=== PATIENT | male | born 1940 | race Caucasian/White ===

== ENCOUNTER → 2016-09-06 | Outpatient (CLI) | payer MEDICARE, MEDICAID ==
[~2016-09-06] MED LIST: ACET-2267 PO; ACYC800T PO; ALBU17AE3 IH; AMIO200T2 PO; AMIO200T50 PO; AML5T; AMLO10TA4; AMLO10TA82 PO; AMLO5TAB2 PO; ASP81CT; ASP81CT PO; ASPI-875 PO; ASPI-892; ATEN25TA; ATEN25TA PO; ATN25T; Amiodarone Hcl PO; BENZ200C25 PO; CEFD300C3 PO; CEFI200S PO; CEPH500C PO; CLPD75T; CPR500T PO; DIGO-8 PO; DIGO125T PO; DIPH25TA82; DIPH25TA82 PO; DOXY100C2 PO; DPH25C; FLT11013; FLT22013 IH; FRSM20T; FRSM40T; FURO20TA4 PO; FURO40TA4; FURO40TA4 PO; HCT25T PO; Hydrochlorothiazide PO; IPRA3AMP INH; KCL10CCR; KCL20TCR PO; LEVO500T69 PO; LIDO700A6 TP; LOSA-35 PO; LOSA100T28 PO; LOSA1TAB23; LOSA1TAB70 PO; LOSA50TA36 PO; MAGN400T6 PO; METO-333 PO; METO50TA2 PO; MGX400T PO; MINO100T10 PO; MTP25TSR PO; Metoprolol Tartrate PO; NF-ESOM40C; NF-ESOM40C PO; NF-MEXI150 PO; OXYC-197 PO; OXYC-471 PO; POLY17PO23 PO; POTA20TA15 PO; POTA8TAB PO; POTA8TAB6 PO; PROP1TAB77 PO; SENN-140 PO; SIMV20TA3; SIMV20TA3 PO; SMV10T; SMV20T; SULF1TAB35 PO; TAMS0.4C98 PO; TRAM-21 PO; TRAM50TA2 PO; WARF5TAB PO; [UNRECOGNIZED DRUG - CODE] PO
[2016-09-06 08:35] LABS: MAGNESIUM 1.9 MG/DL (1.8-2.4); POTASSIUM 3.4 MMOL/L (3.6-5.0)
== END ==
LOC: LAB 07:55
PROVIDERS: ATTEND Internal Medicine Cardiovascular Disease
DX: I25.10 Atherosclerotic heart disease of native coronary artery without angina pectoris (principal); I10 Essential (primary) hypertension; I48.91 Unspecified atrial fibrillation; I47.2 Ventricular tachycardia
CPT/HCPCS: 36415; 83735; 84132

== ENCOUNTER → 2016-09-06 | Outpatient (CLI) | payer MEDICARE, MEDICAID ==
[2016-09-06 08:53] LABS: ALANINE AMINOTRANSFERASE 23 U/L (0-55); ALBUMIN 3.9 G/DL (3.2-4.5); ANION GAP 12 MMOL/L (5-14); ASPARTATE AMINO TRANSFERASE 27 U/L (5-34); BILIRUBIN,TOTAL 0.4 MG/DL (0.1-1.0); BLOOD UREA NITROGEN 16 MG/DL (7-18); BUN/CREATININE RATIO 17; CALCIUM 9.3 MG/DL (8.5-10.1); CARBON DIOXIDE 26 MMOL/L (21-32); CHLORIDE 101 MMOL/L (98-107); CHOLESTEROL 147 MG/DL (< 200); CREATININE SERUM 0.92 MG/DL (0.60-1.30); DIRECT LDL 102 MG/DL (1-129); GFR ESTIMATED > 60; GLUCOSE 125 MG/DL (70-105); POTASSIUM 3.4 MMOL/L (3.6-5.0); SODIUM 139 MMOL/L (135-145); TOTAL PROTEIN 7.6 G/DL (6.4-8.2); TRIGLYCERIDES 174 MG/DL (<150); VLDL CHOLESTEROL 35 MG/DL (5-40)
== END ==
LOC: LAB 07:49
PROVIDERS: ATTEND Internal Medicine Cardiovascular Disease
DX: I10 Essential (primary) hypertension (principal); I25.10 Atherosclerotic heart disease of native coronary artery without angina pectoris; I48.92 Unspecified atrial flutter; I21.3 ST elevation (STEMI) myocardial infarction of unspecified site; I73.9 Peripheral vascular disease, unspecified
CPT/HCPCS: 36415; 80053; 80061; 83735; 84132

== ENCOUNTER 2016-09-22 15:56 | Inpatient (IN) | payer MEDICARE, MEDICAID ==
[~2016-09-22] VITALS: Ht 167.6 cm; Wt 94.1 kg
[~2016-09-22 15:56] MED LIST changes: -AMIO200T2 PO; -FLT22013 IH; -IPRA3AMP INH; -LOSA50TA36 PO; -NF-MEXI150 PO; -OXYC-471 PO; -POLY17PO23 PO; -SENN-140 PO; -TAMS0.4C98 PO; -TRAM50TA2 PO; -WARF5TAB PO
[2016-09-22] MEDS ORDERED: NF-MEXI150 PO (16:39)
[2016-09-22] MEDS ORDERED: AMIO200T2 PO (16:39)
[2016-09-22] MEDS ORDERED: FLT22013 IH (16:39)
[2016-09-22] MEDS ORDERED: fentaNYL INJECTION 100 MCG/2 ML AMP ONE (16:52)
[2016-09-22] MEDS ORDERED: fentaNYL INJECTION 100 MCG/2 ML AMP IVP ONE (17:00)
[2016-09-22 17:11] LABS: BASOPHILS % (AUTO) 0 % (0-10); EOSINOPHILS # (AUTO) 0.2 10^3/uL (0.0-0.3); EOSINOPHILS % (AUTO) 2 % (0-10); LYMPHOCYTES # (AUTO) 1.7 X 10^3 (1.0-4.0); LYMPHOCYTES % (AUTO) 19 % (12-44); MEAN CORPUSCULAR HEMOGLOBIN 33 PG (25-34); MEAN CORPUSCULAR HGB CONC 35 G/DL (32-36); MEAN CORPUSCULAR VOLUME 94 FL (80-99); MEAN PLATELET VOLUME 10.4 FL (7.4-10.4); MONOCYTES # (AUTO) 1.3 X 10^3 (0.0-1.0); MONOCYTES % (AUTO) 14 % (0-12); NEUTROPHILS # (AUTO) 6.1 X 10^3 (1.8-7.8); NEUTROPHILS % (AUTO) 65 % (42-75); PLATELET COUNT 154 10^3/uL (130-400); RED CELL DISTRIBUTION WIDTH 14.9 % (10.0-14.5); WHITE BLOOD COUNT 9.4 10^3/uL (4.3-11.0)
[2016-09-22 17:12] LABS: INR 0.9 (0.8-1.4); PROTHROMBIN TIME PATIENT 12.2 SEC (12.2-14.7)
[2016-09-22 17:27] LABS: ALANINE AMINOTRANSFERASE 31 U/L (0-55); ALBUMIN 3.9 G/DL (3.2-4.5); ANION GAP 12 MMOL/L (5-14); ASPARTATE AMINO TRANSFERASE 31 U/L (5-34); BILIRUBIN,TOTAL 0.5 MG/DL (0.1-1.0); BLOOD UREA NITROGEN 13 MG/DL (7-18); BUN/CREATININE RATIO 15; CALCIUM 9.4 MG/DL (8.5-10.1); CARBON DIOXIDE 28 MMOL/L (21-32); CHLORIDE 98 MMOL/L (98-107); CREATININE SERUM 0.87 MG/DL (0.60-1.30); GFR ESTIMATED > 60; GLUCOSE 133 MG/DL (70-105); POTASSIUM 3.1 MMOL/L (3.6-5.0); SODIUM 138 MMOL/L (135-145); TOTAL PROTEIN 7.9 G/DL (6.4-8.2)
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
[2016-09-22] MEDS ORDERED: NS W/KCL 20 MEQ/L 1,000 ML IV SCH (18:00)
[2016-09-22] MEDS ORDERED: NS W/KCL 20 MEQ/L 1,000 ML IV ONE (18:00)
[2016-09-22 20:00] VITALS: BP 157/72
[2016-09-22] MEDS ORDERED: ONDANSETRON 4 MG/2 ML (SDV) Z0FRAN IV PRN (20:00)
[2016-09-22] MEDS ORDERED: CATHETER FLUSH 10 ML SYR IV PRN (20:00)
[2016-09-22] MEDS ORDERED: LIDOCAINE 1% 10 MG/ML 0.2 ML SYR (FOR IV START) IJ ONE (20:45)
[2016-09-22] MEDS: fentaNYL INJECTION 100 MCG/2 ML AMP IV PRN (21:26)
[2016-09-23] VITALS (13 sets, daily range): BP systolic 111–158; BP diastolic 65–84
[2016-09-23] MEDS: fentaNYL INJECTION 100 MCG/2 ML AMP IV PRN ×4 (01:11→22:06)
[2016-09-23 04:50] LABS: ANION GAP 15 MMOL/L (5-14); BLOOD UREA NITROGEN 11 MG/DL (7-18); BUN/CREATININE RATIO 14; CALCIUM 8.7 MG/DL (8.5-10.1); CARBON DIOXIDE 22 MMOL/L (21-32); CHLORIDE 101 MMOL/L (98-107); CREATININE SERUM 0.76 MG/DL (0.60-1.30); GFR ESTIMATED > 60; GLUCOSE 146 MG/DL (70-105); SODIUM 138 MMOL/L (135-145)
[2016-09-23] MEDS ORDERED: FAMOTIDINE 20MG/2ML IV (PEPCID) IV ONE (09:00)
[2016-09-23] MEDS ORDERED: RT-ALBUTEROL SULF 2.5 MG/3 ML PRE-MIX VIAL INH ONE ×2 (09:00→13:30)
[2016-09-23] MEDS: NS IV 1000 ML 1,000 ML IV SCH ×2 (09:08→15:57)
[2016-09-23] MEDS: POTASSIUM CL 10MEQ/50ML IVPB 50 ML IV SCH ×4 (09:10→15:51)
[2016-09-23] MEDS ORDERED: LACTATED RINGERS 1,000 ML IV PRN (09:30)
[2016-09-23] MEDS ORDERED: CLINDAMYCIN 600 MG/50 ML IVPB 50 ML IV NR (10:00)
--- NOTE | 2016-09-23 10:39 | Consultation-Cardiology ---
HPI-Cardiology Cardiology Consultation: Date of Consultation 09/23/16 Date of Admission Attending Physician Mellissa Flores DO Admitting Physician Elliot Ybarra MD Consulting Physician Gabriela JUDD MD HPI: Chief Complaint: cardiovascular preoperative evaluation this is a 76-year-old gentleman with extensive cardiac history who had a mechanical fall and subsequent hip fracture. Hip surgery is planned for today. Cardiology is consulted for cardiovascular preop risk assessment. The patient has history of coronary artery disease and CABG. The CABG was in 1987. He had stents in the last few years as well; last stents were placed in 2006 to the best of my knowledge. However, none of the stents were placed in the last one year. The patient also has a defibrillator placed. which was placed for ischemic cardiomyopathy. Lexiscan nuclear stress test was performed in 2013 which showed no evidence of myocardial ischemia and an EF of 54 percent. The patient denies any significant symptoms including chest pain or shortness of breath. Review of Systems-Cardiology Review of Systems Constitutional: No As described under HPI, No no symptoms reported, No chills, No fever, No lightheadedness, No malaise, No tiredness, No weight loss, No weight gain, No other Eyes: No As described under HPI, No no symptoms reported, No blindness, No blurred vision, No contact lenses, No drainage, No decreased acuity, No foreign body sensation, No glasses, No inflammation, No pain, No photophobia, No previous injury, No shadows, No tunnel vision, No other, No vision change Ears/Nose/Throat: No As described under HPI, No no symptoms reported, No chronic hearing loss, No epistaxis, No ear discharge, No ear pain, No loose teeth, No mouth pain, No mouth swelling, No nasal drainage, No nose pain, No recent hearing loss, No throat pain, No throat swelling, No ulcerations, No other Respiratory: no symptoms reportedNo As described under HPI, No cough, No orthopnea, No shortness of breath, No SOB with excertion, No SOB at rest, No stridor, No wheezing, No other Cardiovascular: no symptoms reportedNo As described under HPI, No chest pain, No edema, No irregular heart rate, No lightheadedness, No palpitations, No syncope, No other Gastrointestinal: No no symptoms reported, No As described under HPI, No abdomen distended, No abdominal pain, No blood streaked bowels, No constipation , No diarrhea, No difficulty swallowing, No nausea, No poor appetite, No poor fluid intake, No rectal bleeding, No vomiting, No other, No nausea/vomiting/ diarrhea, No stool coloration changes Genitourinary: No no symptoms reported, No As described under HPI, No burning, No dysuria, No discharge, No frequency, No flank pain, No hematuria, No incontinence, No pain, No urgency, No other, No urine frequency changes, No urine coloration changes Musculoskeletal: No no symptoms reported, No As describe under HPI, No back pain, No gout, joint painNo joint swelling, No muscle pain, No muscle stiffness , No neck pain, No other Skin: No no symptoms reported, No As described under HPI, No change in color, No change in hair/nails, No dryness, No lesions, No lumps, No rash, No other, No skin related problems, No ulcerations, No rash on exposed areas, No ulcerations on exposed areas MLF-Zsjqfo-Htoiut Hx Patient Social History Alcohol Use: Denies Use Recreational Drug Use: No Smoking Status: Former Smoker Former smoker/When Quit: Aug 02, 1987 Type Used: Cigarettes Recent Foreign Travel: No Recent Infectious Disease Expo: No Physical Abuse Screen: No Sexual Abuse: No Immunizations Up To Date Tetanus Booster (TDap): More than 5yrs Date of Pneumonia Vaccine: Apr 29, 2014 Date of Influenza Vaccine: Jul 03, 2016 Past Medical History PMH As described under Assessment. Family Medical History Family History: Cardiovascular disease 19 MOTHER G8 BROTHER G8 SISTER Cervical cancer 19 MOTHER Allergies and Home Medications Allergies Coded Allergies: Penicillins (Verified Allergy, Severe, HIVES, SOB, 07/02/15) codeine (Verified Allergy, Severe, SOB, HIVES, 07/02/15) Home Medications Amiodarone HCl 200 Mg Tablet 200 MG PO DAILY (Reported) Amiodarone HCl 200 Mg Tablet 400 MG PO sunday et sunday (Reported) Amlodipine Besylate 5 Mg Tablet 5 MG PO HS (Reported) Aspirin 81 Mg Tablet.dr 162 MG PO BID (Reported) Digoxin 125 Mcg Tablet 125 MCG PO DAILY (Reported) Esomeprazole Magnesium 40 Mg Cap 40 MG PO DAILY (Reported) Fluticasone Propionate 1 Ea Aero 2 PUFF IH PRN (Reported) Furosemide 40 Mg Tablet 40 MG PO DAILY (Reported) Losartan/Hydrochlorothiazide 1 Each Tablet 1 TAB PO DAILY (Reported) Metoprolol Tartrate 50 Mg Tablet 25 MG PO BID (Reported) TAKES 1/2 OF A (50 MG) TABLET Mexiletine HCl 150 Mg Cap #100 150 MG PO TID (Reported) Potassium Chloride 8 Meq Tablet.er 8 MEQ PO DAILY (Reported) Sulfamethoxazole/Trimethoprim 1 Each Tablet #14 1 EA PO BID WITH MEALS Prescribed by: MILTON CORTES on 07/05/15 1308 Physical Exam-Cardiology Physical Exam Vital Signs/I&O Vital Sign - Last 12Hours 09/23/16 09/23/16 09/23/16 09/23/16 00:00 04:00 08:15 08:55 Temp 99.4 98.7 98.8 Pulse 102 100 99 Resp 24 24 18 B/P 144/71 141/68 158/73 Pulse Ox 94 93 92 92 O2 Delivery Nasal Cannula Nasal Cannula Nasal Cannula O2 Flow Rate 2.00 2.00 2.00 2.00 Intake and Output 09/23/16 00:00 Intake Total 100 ml Output Total 250 ml Balance -150 ml Capillary Refill : Less Than 3 SecondsLess Than 3 Seconds Constitutional: No appears stated age, No AAO x 3, No apparent distress, No PERRL, No well-developed, No well-nourished, No other HEENT: No PERRL, No normal ENT inspection, No TMs normal, No pharynx normal, No scleral icterus (R), No scleral icterus (L), No pale conjunctivae (R), No pale conjunctivae (L), No photophobia, No TM abnormal (R), No TM abnormal (L), No pharyngeal erythema, No tonsillar exudate, No other, No discharge, No EOMI, No hearing is well preserved, No hard of hearing, No oral hygience is good, No ulceration, No xanthelasmas are seen Neck: No non-tender, No full range of motion, No supple, No normal inspection, No carotid bruit, No limited range of motion, No lymphadenopathy (R), No lymphadenopathy (L), No tender lateral, No tender midline, No thyromegaly, No other, No carotid pulses are 2 + bilaterally, No with good upstrokes Respiratory: No accessory muscle use, No respiratory distress, No chest tender , No chest expansion is symmetric, No chest is bilaterally symmetric, No lungs clear to percussion, No lungs clear to auscultation, No crackles, No rhonchi, No rales, No stridor, No wheezing, No pleural rub, No other Cardiovascular: No regular rate-rhythm, No irregularly irregular, No extra beats, No parasternal heave is noted, No JVD, No edema, No bradycardia, No tachycardia, No point of maximal impulse, No cardiac thrills are palpable, No S1 and S2, No gallop/S3, No gallop/S4, No diastolic murmur, No systolic murmur, No friction rub, No click, No other Gastrointestinal: No tender, No soft, No round, No distended, No pulsatile mass , No organomegaly, No guarding, No rebound, No tenderness, No hernia, No mass, No audible bowel sounds, No abnormal bowel sounds, No abdominal bruits, No spleenomegaly, No other Rectal: deferred Extremities: No normal range of motion, No non-tender, No normal inspection, No pedal edema, No calf tenderness, No normal capillary refill, No pelvis stable , No calf tenderness, No inflammation, No pedal edema, No slow capillary refill , No swelling, No other, No abrasion, No clubbing, No cyanosis, No ecchymosis, No laceration, No no lower extremity edema bilateral, No significant edema, No tenderness, No wound Neurologic/Psychiatric: No oliver filter operator II-XII nml as tested, No no motor/sensory deficits, No alert, No normal mood/affect, No oriented x 3, No abnormal cerebellar tests, No abnormal oliver filter operator II-XII, No abnormal gait, No aphasia, No EOM palsy, No facial droop, No motor weakness, No sensory deficit, No depressed affect, No disoriented x 3, No other, No grossly intact, No power is 5/5 both on sides Skin: No normal color, No warm/dry, No cyanosis, No cool, No diaphoresis, No damp, No ecchymosis, No jaundice, No mottled, No pallor, No rash, No tattoos/ piercings, No ulcerations, No rash on exposed areas, No ulcerations on exposed areas, No other Data Review Labs Laboratory Tests 09/22/16 16:40: Activated Partial Thromboplast Time 27, Alanine Aminotransferase (ALT/SGPT) 31, Albumin 3.9, Alkaline Phosphatase 79, Anion Gap 12, Aspartate Amino Transf (AST/ SGOT) 31, BUN/Creatinine Ratio 15, Basophils # (Auto) 0.0, Basophils (%) (Auto) 0, Blood Urea Nitrogen 13, Calcium Level 9.4, Carbon Dioxide Level 28, Chloride Level 98, Creatinine 0.87, Eosinophils # (Auto) 0.2, Eosinophils (%) (Auto) 2, Estimat Glomerular Filtration Rate > 60, Glucose Level 133H, Hematocrit 42, Hemoglobin 14.7, INR Comment 0.9, Lymphocytes # (Auto) 1.7, Lymphocytes (%) ( Auto) 19, Mean Corpuscular Hemoglobin 33, Mean Corpuscular Hemoglobin Concent 35 , Mean Corpuscular Volume 94, Mean Platelet Volume 10.4, Monocytes # (Auto) 1.3H , Monocytes (%) (Auto) 14H, Neutrophils # (Auto) 6.1, Neutrophils (%) (Auto) 65 , Platelet Count 154, Potassium Level 3.1L, Prothrombin Time 12.2, Red Blood Count 4.50, Red Cell Distribution Width 14.9H, Sodium Level 138, Total Bilirubin 0.5, Total Protein 7.9, White Blood Count 9.4 09/23/16 04:10: Anion Gap 15H, BUN/Creatinine Ratio 14, Blood Urea Nitrogen 11, Calcium Level 8.7, Carbon Dioxide Level 22, Chloride Level 101, Creatinine 0.76, Estimat Glomerular Filtration Rate > 60, Glucose Level 146H, Potassium Level 3.0L, Sodium Level 138 A/P-Cardiology Assessment/Admission Diagnosis preoperative cardiovascular risk assessment, coronary artery disease, Ischemic cardiomyopathy ICD previous history of atrial fibrillation Plan patient is at moderate risk for perioperative major adverse cardiac events undergoing an intermediate risk noncardiac surgery. I see no acute cardiac contraindication to hip surgery. I discussed with the patient and family that he does have extensive cardiac history and explained the risk of major adverse cardiac events in the perioperative period; however, hip surgery is required as well since the morbidity and mortality associated with non-operated hip fracture is also very high. It may be prudent to keep the patient in the ICU postoperatively. In the postoperative period, gradually his cardiac medications will be reintroduced. Thank you for your consultation. Please call me if you have any questions. Simin Judd MD, FACP, FACC, FSCAI, FHRS, CCDS Interventional Cardiology Cardiac Electrophysiology Vascular Medicine and Endovascular Interventions Clinical Quality Measures DVT/VTE Risk/Contraindication: Risk Factor Score Per Nursin RFS Level Per Nursing on Admit: 4+=Very High Gabriela JUDD MD Sep 23, 2016 10:39 am
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
[2016-09-23] MEDS ORDERED: LIDOCAINE PF 2% 10 ML (XYLOCAINE) AMP ONE (10:48)
[2016-09-23] MEDS ORDERED: ONDANSETRON 4 MG/2 ML (SDV) Z0FRAN ONE (10:48)
[2016-09-23] MEDS ORDERED: fentaNYL INJECTION 100 MCG/2 ML AMP ONE (10:48)
[2016-09-23] MEDS ORDERED: proPOfol 200 MG/20 ML (DIPRIVAN) VIAL IV ONE (10:48)
[2016-09-23] MEDS ORDERED: LACTATED RINGERS 1,000 ML IV ONE ×2 (10:48→12:14)
[2016-09-23] MEDS ORDERED: MIDAZOLAM 2 MG/2 ML (VERSED) VIAL ONE (10:49)
[2016-09-23] MEDS: LACTATED RINGERS 1,000 ML IV SCH ×2 (11:06→12:40)
[2016-09-23] MEDS ORDERED: BUP/EPI 0.25% 1:200,000 (MARCAINE) 30 ML VIAL ONE (11:12)
[2016-09-23] MEDS ORDERED: SEVOFLURANE (ULTANE) 15 ML INHAL SOLN ONE ×9 (12:14→12:56)
[2016-09-23] MEDS ORDERED: TRANEXAMIC ACID 100 MG/ML 10 ML INJECTION IV ONE (12:14)
[2016-09-23] MEDS ORDERED: ESMOLOL 100 MG/10 ML (BREVIBLOC) VIAL ONE (12:27)
[2016-09-23] MEDS ORDERED: HYDROmorphone (DILAUDID) 2 MG/ML VIAL ONE (12:45)
[2016-09-23] MEDS ORDERED: MEPERIDINE (DEMEROL) INJ 50 MG/ML ONE (12:46)
[2016-09-23] MEDS ORDERED: morphine INJ 10 MG/ML 1ML (SYR OR VIAL) ONE (12:46)
[2016-09-23] MEDS ORDERED: BISACODYL 5 MG (DULCOLAX) TABLET PO PRN (13:00)
[2016-09-23] MEDS ORDERED: ONDANSETRON 4 MG/2 ML (SDV) Z0FRAN IV PRN (13:00)
[2016-09-23] MEDS ORDERED: MILK OF MAGNESIA 400 MG/5 ML 30 ML UDC PO PRN (13:00)
[2016-09-23] MEDS: morphine INJ 10 MG/ML 1ML (SYR OR VIAL) IVP PRN ×2 (13:28→13:35)
[2016-09-23] MEDS ORDERED: MEPERIDINE (DEMEROL) INJ 50 MG/ML IVP PRN (13:30)
[2016-09-23] MEDS ORDERED: ONDANSETRON 4 MG/2 ML (SDV) Z0FRAN IVP PRN (13:30)
[2016-09-23] MEDS: RT-ALBUTEROL/IPRATROPIUM 3 ML (DUONEB) VIAL INH PRN ×2 (13:35→19:34)
[2016-09-23] MEDS ORDERED: warFARin 2 MG (COUMADIN) TAB PO SCH (15:00)
[2016-09-23] MEDS ORDERED: morphine INJ 4 MG/ML 1 ML (VIAL/SYRINGE) IV PRN (15:00)
--- NOTE | 2016-09-23 15:07 | Diagnostic Imaging Report ---
Fluoroscopy. INDICATION: Left hip pain. Fluoroscopic assistance was provided for Dr. Fam during his left hip pinning procedure. 3 minutes and 24 seconds of fluoroscopy time was utilized. Four spot films of the left hip and femur were received from the OR. The left hip exam performed on 09/22/2016 did note a displaced intertrochanteric fracture of the left femur. On this exam, there is now an intramedullary jame in place. There is also an orthopedic fixation screw obliquely traversing the femoral head and neck. The orthopedic hardware appears to be in good position and the main fracture fragments are near anatomic. IMPRESSION: Stable postoperative left hip. Dictated by: Dictated on workstation # [id number]
[2016-09-23] MEDS ORDERED: warFARin 2.5 MG (COUMADIN) TAB PO NR (16:48)
--- NOTE | 2016-09-23 16:48 | Progress Note-Post Operative ---
Post-Operative Progess Note Tenoner Operator none Pre-Operative Diagnosis left femur intertroch fracture Post-Operative Diagnosis Same Post-Op Procedure Note Date of Procedure: Sep 23, 2016 Name of Procedure: Open Reduction and Internal Fixation of left femur Procedure Note/Findings easily reduced. placed Synthes TFN. no locking screw needed distally Anesthesia Type general endo tracheal Estimated blood loss (mL): 150ml Packing: no Specimen(s) collected no MARIA A NICHOLAS MD Sep 23, 2016 4:48 pm
[2016-09-23] MEDS ORDERED: CLINDAMYCIN 600 MG/50 ML IVPB 50 ML IV SCH (21:00)
[2016-09-23] MEDS: SENNOSIDES 8.6 MG (SENOKOT) TAB PO SCH (22:07)
[2016-09-23] MEDS: HYDROcodone/APAP 5 MG/325 MG (LORTAB) TAB PO PRN (22:07)
[2016-09-24] VITALS (16 sets, daily range): BP systolic 99–159; BP diastolic 58–101
[2016-09-24] MEDS: NS IV 1000 ML 1,000 ML IV SCH ×3 (00:33→06:58)
[2016-09-24] MEDS: RT-ALBUTEROL/IPRATROPIUM 3 ML (DUONEB) VIAL INH PRN ×2 (02:39→12:45)
[2016-09-24 04:28] LABS: MEAN PLATELET VOLUME 10.8 FL (7.4-10.4); RED BLOOD COUNT 3.47 10^6/uL (4.35-5.85); RED CELL DISTRIBUTION WIDTH 15.6 % (10.0-14.5); WHITE BLOOD COUNT 11.9 10^3/uL (4.3-11.0)
[2016-09-24 04:35] LABS: INR 1.2 (0.8-1.4); PROTHROMBIN TIME PATIENT 15.3 SEC (12.2-14.7)
[2016-09-24 04:54] LABS: ALANINE AMINOTRANSFERASE 22 U/L (0-55); ALBUMIN 3.1 G/DL (3.2-4.5); ANION GAP 11 MMOL/L (5-14); ASPARTATE AMINO TRANSFERASE 31 U/L (5-34); BILIRUBIN,TOTAL 0.8 MG/DL (0.1-1.0); BLOOD UREA NITROGEN 10 MG/DL (7-18); BUN/CREATININE RATIO 13; CALCIUM 8.2 MG/DL (8.5-10.1); CARBON DIOXIDE 24 MMOL/L (21-32); CHLORIDE 104 MMOL/L (98-107); CREATININE SERUM 0.76 MG/DL (0.60-1.30); GFR ESTIMATED > 60; GLUCOSE 139 MG/DL (70-105); POTASSIUM 2.9 MMOL/L (3.6-5.0); SODIUM 139 MMOL/L (135-145)
[2016-09-24] MEDS: KCL 20 MEQ TAB (K-DUR) PO SCH ×3 (05:41→14:05)
[2016-09-24] MEDS ORDERED: MAGNESIUM 1 GM/100 ML IVPB 100 ML IV SCH (06:00)
[2016-09-24] MEDS ORDERED: KCL 20 MEQ TAB (K-DUR) PO SCH (06:00)
[2016-09-24] MEDS ORDERED: POTASSIUM CL 10MEQ/50ML IVPB 50 ML IV SCH (06:00)
[2016-09-24] MEDS: MAGNESIUM 1 GM/100 ML IVPB 100 ML IV SCH ×2 (06:58→08:10)
--- NOTE | 2016-09-24 09:01 | Diagnostic Imaging Report ---
INDICATION: COPD. COMPARISON: Comparison made with prior examination 09/22/2016. FINDINGS: There is cardiomegaly. There is some patchy right basilar atelectasis and/or pneumonitis. There is no pneumothorax. There has been a previous median sternotomy. Pacemaker overlies the left hemithorax. IMPRESSION: Cardiomegaly and some patchy right basilar atelectasis and/or pneumonitis. Dictated by: Dictated on workstation # [id number]
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
[2016-09-24] MEDS ORDERED: guaiFENesin/DM (ROBITUSSIN DM) 10 ML UDC PO PRN (10:45)
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
[2016-09-24] MEDS: SENNOSIDES 8.6 MG (SENOKOT) TAB PO SCH ×2 (11:09→20:09)
--- NOTE | 2016-09-24 11:22 | Progress Note-Standard ---
Standard Progress Note Progress Notes/Assess & Plan Progress/Assessment & Plan S - Pain level ok. "Doing Good" Nursing states CXR showed infiltrates and he needs 4L Nasal cannula O2. Receoved 2 doses of post op Ancef. O - dressing mild sanguinous drainage. Gentle PROM of L hip tolerated. Lab 11.2 hgb A - Ortho stable PODay 1 after L hip intertroch Fx ORIF , needs O2, Post Op Anemia P - Con't PT attempts, Daily dressing change, MARIA A NICHOLAS MD Sep 24, 2016 11:22 am
--- NOTE | 2016-09-24 12:15 | Cardiology Progress Note ---
Cardiology SOAP Progress Note Subjective: no chest pain or shortness of breath. Objective: I&O/Vital Signs Vital Sign - Last 12Hours 09/24/16 09/24/16 09/24/16 09/24/16 10:00 11:00 12:00 12:00 Pulse 104 101 107 B/P 159/101 127/64 134/77 Pulse Ox 93 93 95 93 O2 Delivery Nasal Cannula Nasal Cannula Nasal Cannula Nasal Cannula O2 Flow Rate 4.00 4.00 4.00 4.00 09/24/16 09/24/16 09/24/16 09/24/16 12:50 13:00 13:00 14:00 Pulse 105 104 B/P 106/69 Pulse Ox 92 94 O2 Delivery Nasal Cannula Nasal Cannula O2 Flow Rate 3.00 4.00 09/24/16 09/24/16 09/24/16 09/24/16 16:03 16:20 19:00 19:11 Temp 100.8 Pulse 115 99 Resp 22 B/P 114/64 Pulse Ox 94 93 93 O2 Delivery Nasal Cannula O2 Flow Rate 4.00 4.00 09/24/16 19:53 Temp 99.3 Pulse 99 Resp 22 B/P 118/58 Pulse Ox 93 O2 Delivery Nasal Cannula O2 Flow Rate 4.00 Intake and Output 09/24/16 00:00 Intake Total 2300 ml Output Total 725 ml Balance 1575 ml Weight (Pounds): 207 Weight (Ounces): 6.4 Weight (Calculated Kilograms): 94.231987 Constitutional: No appears stated age, No AAO x 3, No apparent distress, No PERRL, No well-developed, No well-nourished, No other Respiratory: No accessory muscle use, No respiratory distress, No chest tender , No chest expansion is symmetric, No chest is bilaterally symmetric, No lungs clear to percussion, No lungs clear to auscultation, No crackles, No rhonchi, No rales, No stridor, No wheezing, No pleural rub, No other Cardiovascular: No regular rate-rhythm, No irregularly irregular, No extra beats, No parasternal heave is noted, No JVD, No edema, No bradycardia, No tachycardia, No point of maximal impulse, No cardiac thrills are palpable, No S1 and S2, No gallop/S3, No gallop/S4, No diastolic murmur, No systolic murmur, No friction rub, No click, No other Gastrointestional: No tender, No soft, No round, No distended, No pulsatile mass, No organomegaly, No guarding, No rebound, No tenderness, No hernia, No mass, No audible bowel sounds, No abnormal bowel sounds, No abdominal bruits, No spleenomegaly, No other Extremities: No normal range of motion, No non-tender, No normal inspection, No pedal edema, No calf tenderness, No normal capillary refill, No pelvis stable , No calf tenderness, No inflammation, No pedal edema, No slow capillary refill , No swelling, No other, No abrasion, No clubbing, No cyanosis, No ecchymosis, No laceration, No no lower extremity edema bilateral, No significant edema, No tenderness, No wound Neurologic/Psychiatric: No general merchandise salesperson II-XII nml as tested, No no motor/sensory deficits, No alert, No normal mood/affect, No oriented x 3, No abnormal cerebellar tests, No abnormal general merchandise salesperson II-XII, No abnormal gait, No aphasia, No EOM palsy, No facial droop, No motor weakness, No sensory deficit, No depressed affect, No disoriented x 3, No other, No grossly intact, No power is 5/5 both on sides Skin: No normal color, No warm/dry, No cyanosis, No cool, No diaphoresis, No damp, No ecchymosis, No jaundice, No mottled, No pallor, No rash, No tattoos/ piercings, No ulcerations, No rash on exposed areas, No ulcerations on exposed areas, No other Results/Procedures: Labs Laboratory Tests 09/24/16 03:45: Alanine Aminotransferase (ALT/SGPT) 22, Albumin 3.1L, Alkaline Phosphatase 60, Anion Gap 11, Aspartate Amino Transf (AST/SGOT) 31, BUN/Creatinine Ratio 13, Blood Urea Nitrogen 10, Calcium Level 8.2L, Carbon Dioxide Level 24, Chloride Level 104, Creatinine 0.76, Estimat Glomerular Filtration Rate > 60, Glucose Level 139H, Hematocrit 33L, Hemoglobin 11.2#L, INR Comment 1.2, Magnesium Level 1.4L, Mean Corpuscular Hemoglobin 32, Mean Corpuscular Hemoglobin Concent 34, Mean Corpuscular Volume 96, Mean Platelet Volume 10.8H, Phosphorus Level 2.2L, Platelet Count 149, Potassium Level 2.9L, Prothrombin Time 15.3H, Red Blood Count 3.47L, Red Cell Distribution Width 15.6H, Sodium Level 139, Total Bilirubin 0.8, Total Protein 6.0L, White Blood Count 11.9H Microbiology 09/22/16 MRSA Screen - Final, Complete MRSA not isolated A/P: Assessment/Dx: coronary artery disease, Ischemic cardiomyopathy ICD previous history of atrial fibrillation Plan: ischemic cardiomyopathy, ICD, history of AF: restart his outpatient medications when ok with surgery and primary team. follow up with his surface grinder tender as outpatient. Gabriela JUDD MD Sep 24, 2016 12:15 Simin Judd MD, FACP, FACC, FSCAI, FHRS, CCDS Interventional Cardiology Cardiac Electrophysiology Vascular Medicine and Endovascular Interventions Gabriela JUDD MD Sep 24, 2016 12:15 he does have extensive cardiac history and explained the risk of major adverse cardiac events in the perioperative period; however, hip surgery is required as well since the morbidity and mortality associated with non-operated hip fracture is also very high. It may be prudent to keep the patient in the ICU postoperatively. In the postoperative period, gradually his cardiac medications will be reintroduced. Thank you for your consultation. Please call me if you have any questions. Simin Judd MD, FACP, FACC, FSCAI, FHRS, CCDS Interventional Cardiology Cardiac Electrophysiology Vascular Medicine and Endovascular Interventions Gabriela JUDD MD Sep 24, 2016 12:15
--- NOTE | 2016-09-24 13:39 | Anesthesia-General Post-Op ---
General Patient Condition Mental Status/LOC: Same as Preop Cardiovascular: Satisfactory Nausea/Vomiting: Absent Respiratory: Satisfactory Pain: Controlled Complications: Absent Post Op Complications Complications None Follow Up Care/Instructions Patient Instructions None needed. Anesthesia/Patient Condition Patient Condition Patient is doing well, no complaints, stable vital signs, no apparent adverse anesthesia problems. No complications reported per nursing. OZZY HEADLEY CRNA Sep 24, 2016 13:39
[2016-09-24] MEDS: HYDROcodone/APAP 5 MG/325 MG (LORTAB) TAB PO PRN ×2 (16:27→20:28)
--- NOTE | 2016-09-24 16:48 | OPERATIVE REPORT ---
PROCEDURE PHYSICIAN: MARIA A NICHOLAS DATE OF PROCEDURE: PREOPERATIVE DIAGNOSIS: Left hip intertrochanteric fracture. POSTOPERATIVE DIAGNOSIS: Left hip intertrochanteric fracture. PROCEDURE: Open reduction, internal fixation of left hip intertrochanteric fracture using Synthes TFN nail. ANESTHESIA TYPE: ESTIMATED BLOOD LOSS: 150 mL. The patient was taken to the operating room after standard nursing and anesthesia preoperative identification evaluation and counseling. The left lower extremity was prepared and draped in the usual orthopedic fashion after I measured out the length of the needed nail by using the C-arm. At the time it was completed, local anesthetic had been given in the approached area for the skin incision using 0.25% Marcaine and epinephrine. A total of 60 mL of this solution were used for postoperative pain control and help control bleeding. The patient did receive his preoperative antibiotics and also received tranexamic acid preoperatively to help reduce blood loss. Attention was then turned to the patient and a longitudinal incision was made above the greater trochanter. Soft tissue dissection was accomplished down through the tensor fascia carlos a and tip of the greater trochanter was palpated. A guidepin was then placed in this tip and I took a few extra lateral x-rays to get the position just right but this wire was run down the femur. This was followed by the large approach of drill and reamer. Once this was in place, the premeasured IM nail was then also placed down the femur, care taken to make sure it was in the right position by getting AP and lateral x-rays distally. We impacted the nail to the appropriate position. The angle was of anterior posterior rotation for the pins was determined with x-ray and the guidewire was then run up the neck of the femur, staying a little inferior and trying to stay right in the center. This was followed by a reamer out of the outside cortex, followed by a helical screw. The helical screw was then fixed and then compression was placed on the helical screw. It compressed the fracture after lending the tension off of the foot and ankle. Wounds were irrigated. The wounds were closed in two layers using Vicryl deep and domi superficially. The patient was then awakened and taken to the recovery room in stable condition. Job ID: [id number] Dictated Date: 09/23/2016 16:42:56 Corporate Safety Director Date: 09/24/2016 16:30:54 / vidal
[2016-09-24] MEDS: warFARin 5 MG (COUMADIN) TAB PO SCH (17:01)
[2016-09-24] MEDS: RT-ALBUTEROL/IPRATROPIUM 3 ML (DUONEB) VIAL INH SCH (19:11)
[2016-09-24] MEDS: amLODIPine 5 MG (NORVASC) TAB PO SCH (20:09)
[2016-09-24] MEDS: meTOprolol TARTRATE 50 MG (LOPRESSOR) TAB PO SCH (20:09)
[2016-09-25] VITALS: BP 117/64
[2016-09-25] MEDS: HYDROcodone/APAP 5 MG/325 MG (LORTAB) TAB PO PRN ×2 (02:52→13:40)
[2016-09-25] MEDS: RT-ALBUTEROL/IPRATROPIUM 3 ML (DUONEB) VIAL INH PRN (03:00)
[2016-09-25 04:00] VITALS: BP 107/67
[2016-09-25 05:24] LABS: BASOPHILS % (AUTO) 0 % (0-10); EOSINOPHILS # (AUTO) 0.3 10^3/uL (0.0-0.3); EOSINOPHILS % (AUTO) 2 % (0-10); LYMPHOCYTES # (AUTO) 1.3 X 10^3 (1.0-4.0); LYMPHOCYTES % (AUTO) 12 % (12-44); MEAN CORPUSCULAR HEMOGLOBIN 33 PG (25-34); MEAN CORPUSCULAR HGB CONC 33 G/DL (32-36); MEAN CORPUSCULAR VOLUME 99 FL (80-99); MEAN PLATELET VOLUME 10.3 FL (7.4-10.4); MONOCYTES # (AUTO) 1.4 X 10^3 (0.0-1.0); MONOCYTES % (AUTO) 13 % (0-12); NEUTROPHILS # (AUTO) 7.7 X 10^3 (1.8-7.8); NEUTROPHILS % (AUTO) 72 % (42-75); PLATELET COUNT 123 10^3/uL (130-400); RED CELL DISTRIBUTION WIDTH 15.6 % (10.0-14.5); WHITE BLOOD COUNT 10.7 10^3/uL (4.3-11.0)
[2016-09-25 05:35] LABS: INR 1.3 (0.8-1.4)
[2016-09-25 05:40] LABS: ANION GAP 11 MMOL/L (5-14); BLOOD UREA NITROGEN 10 MG/DL (7-18); BUN/CREATININE RATIO 14; CALCIUM 8.4 MG/DL (8.5-10.1); CARBON DIOXIDE 23 MMOL/L (21-32); CHLORIDE 106 MMOL/L (98-107); CREATININE SERUM 0.71 MG/DL (0.60-1.30); GFR ESTIMATED > 60; GLUCOSE 126 MG/DL (70-105); POTASSIUM 3.8 MMOL/L (3.6-5.0); SODIUM 140 MMOL/L (135-145)
[2016-09-25] MEDS: PANTOPRAZOLE 40 MG (PROTONIX) TAB PO SCH (06:17)
[2016-09-25] MEDS: KCL 8 MEQ (MICRO K) TABLET PO SCH (06:17)
[2016-09-25] MEDS: RT-ALBUTEROL/IPRATROPIUM 3 ML (DUONEB) VIAL INH SCH ×4 (07:14→19:34)
--- NOTE | 2016-09-25 07:46 | Progress Note (SOAP) ---
Subjective Subjective/Events-last exam Yossi is a 76 y/o male who is POD #1 s/p left TFN which he tolerated well. He has a significant hx of CAD with cardiomyopathy and Dr Cevallos and Dr Fonseca have been consulted. He has not yet been OOB. He is on coumadin. Review of Systems General: No Chills, No Night Sweats HEENT: No Head Aches, No Visual Changes Pulmonary: Dyspnea CoughNo Pleuritic Chest Pain Cardiovascular: No: Chest Pain, Palpitations Gastrointestinal: No: Abdominal Pain, Nausea, Vomiting Genitourinary: No Dysuria, Frequency Incontinence Hematuria Retention Other Musculoskeletal: : leg pain Neurological: : WeaknessNo: Change in speech, Confusion, Incoordination, Numbness Objective Exam Vital Signs Date Time Temp Pulse Resp B/P Pulse Ox O2 Delivery O2 Flow Rate FiO2 09/25/16 07:14 90 4.50 09/25/16 04:00 100.6 94 20 107/67 92 Nasal Cannula 4.00 09/25/16 03:01 93 4.50 09/25/16 01:00 89 09/25/16 00:00 98.5 86 18 117/64 92 Nasal Cannula 4.00 09/24/16 20:00 Nasal Cannula 4.00 09/24/16 19:53 99.3 99 22 118/58 93 Nasal Cannula 4.00 09/24/16 19:11 93 4.00 09/24/16 19:00 99 09/24/16 16:20 100.8 115 22 114/64 93 Nasal Cannula 4.00 09/24/16 16:03 94 09/24/16 14:00 Nasal Cannula 4.00 09/24/16 13:00 104 09/24/16 13:00 105 106/69 94 Nasal Cannula 09/24/16 12:50 92 3.00 09/24/16 12:00 107 134/77 93 Nasal Cannula 4.00 09/24/16 12:00 95 Nasal Cannula 4.00 09/24/16 11:00 101 127/64 93 Nasal Cannula 4.00 09/24/16 10:00 104 159/101 93 Nasal Cannula 4.00 09/24/16 09:00 110 99/85 91 Nasal Cannula 4.00 09/24/16 08:00 93 Nasal Cannula 4.00 09/24/16 08:00 98.7 98 22 123/65 92 Nasal Cannula 4.00 I & O 09/25/16 07:00 Intake Total 1100 ml Output Total 725 ml Balance 375 ml Capillary Refill : Less Than 3 SecondsLess Than 3 Seconds General Appearance: WD/WN Chronically ill Mild Distress Neck: Normal Inspection Respiratory: Chest Non Tender No Accessory Muscle Use Rhonci Wheezing Cardiovascular: Regular Rate, Rhythm No Edema Gastrointestinal: normal bowel sounds non tender soft no pulsatile mass Extremity: Normal Inspection No Calf Tenderness No Pedal Edema Other (bandage to left hip) Neurologic/Psychiatric: Alert Oriented x3 Results Lab Laboratory Tests 09/25/16 05:15: Anion Gap 11, BUN/Creatinine Ratio 14, Basophils # (Auto) 0.0, Basophils (%) ( Auto) 0, Blood Urea Nitrogen 10, Calcium Level 8.4L, Carbon Dioxide Level 23, Chloride Level 106, Creatinine 0.71, Eosinophils # (Auto) 0.3, Eosinophils (%) ( Auto) 2, Estimat Glomerular Filtration Rate > 60, Glucose Level 126H, Hematocrit 32L, Hemoglobin 10.5L, INR Comment 1.3, Lymphocytes # (Auto) 1.3, Lymphocytes (%) (Auto) 12, Mean Corpuscular Hemoglobin 33, Mean Corpuscular Hemoglobin Concent 33, Mean Corpuscular Volume 99, Mean Platelet Volume 10.3, Monocytes # (Auto) 1.4H, Monocytes (%) (Auto) 13H, Neutrophils # (Auto) 7.7, Neutrophils (%) (Auto) 72, Platelet Count 123L, Potassium Level 3.8, Prothrombin Time 16.0H, Red Blood Count 3.20L, Red Cell Distribution Width 15.6H , Sodium Level 140, White Blood Count 10.7 Microbiology 09/22/16 MRSA Screen - Final, Complete MRSA not isolated Assessment/Plan Assessment/Plan Assess & Plan/Chief Complaint POD #1 s/p left TFN CAD with cardiomyopathy COPD Plan: OOB with PT full WBAT pain control compression stockings for DVT prophylaxis - has resumed coumadin IS at bedside and encouraged left hip x-ray today Diagnosis/Problems: Clinical Quality Measures DVT/VTE Risk/Contraindication: Risk Factor Score Per Nursin RFS Level Per Nursing on Admit: 4+=Very High ALEJANDRO LEMON Sep 25, 2016 07:46
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
[2016-09-25 08:00] VITALS: BP 113/56
--- NOTE | 2016-09-25 08:54 | Diagnostic Imaging Report ---
INDICATION: COPD. Compared 09/24/2016. FINDINGS: There is poor inspiratory volume crowding the lung markings. The interstitial opacities bilaterally showed mild progressive density. This may merely be reflective of the decreased lung volumes; however, increased edema or interstitial pneumonia could not be excluded. Elevation of the right diaphragm again noted. The heart mildly increased in size. There is mild vascular congestion. IMPRESSION: Slight increased heart size and venous caliber. Decreased lung volumes. Elevated right diaphragm. Interstitial opacities showing mild progression as discussed. No pneumothorax. Dictated by: Dictated on workstation # [id number]
[2016-09-25] MEDS: AMIODARONE 200 MG (CORDARONE) TAB PO SCH (08:55)
[2016-09-25] MEDS: HYDROCHLOROTHIAZIDE 25 MG (HCTZ) TAB PO SCH (08:55)
[2016-09-25] MEDS: LOSARTAN 50 MG (COZAAR) TAB PO SCH (08:55)
[2016-09-25] MEDS: FUROSEMIDE 40 MG (LASIX) TAB PO SCH (08:55)
[2016-09-25] MEDS: meTOprolol TARTRATE 50 MG (LOPRESSOR) TAB PO SCH ×2 (08:56→20:40)
[2016-09-25] MEDS: DIGOXIN 0.125 MG (LANOXIN) TAB PO SCH (08:56)
[2016-09-25] MEDS: SENNOSIDES 8.6 MG (SENOKOT) TAB PO SCH ×2 (08:56→20:40)
--- NOTE | 2016-09-25 09:31 | Physical Therapy Daily Note ---
PT Daily Note-Current Subjective Patient in bed pre tx, agrees to PT, has no complaints of pain. Appearance Patient in recliner at bedside post tx with chair alarm and legs elevated, has nurse call, phone, tray, in room. Mental Status Patient Orientation: Person, Place, Situation Attachments: Oxygen 5L of O2 nasal canula Transfers Functional [place] Measure 0=Not Assessed/NA 4=Minimal Assistance 1=Total Assistance 5=Supervision or Setup 2=Maximal Assistance 6=Modified [place] 3=Moderate Assistance 7=Complete IndependenceIRFPAI Quality Coding Scale 6 Independent with activity with or without an assistive device 5 Patient requires set up or clean up by helper. Patient completes activity by themselves 4 Supervision or touching assist (CGA). [place] provide cues , steadying assist 3 The helper provides less than half the effort to complete the activity 2 The helper provides more than half the effort to complete the activity 1 Dependent. The helper does all the effort to complete an activity 7 Patient refused to complete or attempt activity 9 The patient did not perform the activity before the current illness or injury 88 Not attempted due to Medical conditions or safety concerns Transfers (B, C, W/C) (FIM): 1 Scootin Rollin Supine to/from Sit: 2 Sit to/from Stand: 1 Bed to/from Chair: 1 Patient very weak, almost dependent for bed mobility and transfers. Patient could only help just a little when going supine to sit. He wants to try to perform everything himself but he cannot. Safety at the edge of the bed is poor , he tends to slide forward on the bed trying to perform transfer and needed quick intervention from therapist in order to keep him from falling and perform the transfer. Recommended to nurse to use the sit to stand machine for the transfer back when it is time. Assessment Current Status: Poor Progress Poor mobility, strength, safety awareness. PT Programming Manager Goals Programming Manager Goals PT Programming Manager Goals Time Frame: Sep 28, 2016 Transfers (B,C,W/C) (FIM): 4 Gait (FIM): 2 Gait distance (FIM): 2=906-63 ft Gait Assistive Device: FWW PT Plan Problem List Problem List: Activity Tolerance, Functional Strength, Safety, Balance, Gait, Transfer, Bed Mobility, ROM Treatment/Plan Treatment Plan: Continue Plan of Care Treatment Plan: Bed Mobility, Functional Activity [place], Functional Strength, Gait, Safety, Therapeutic Exercise, Transfers Treatment Duration: Sep 28, 2016 Visits Per Week: 11 Safety Risks/Education Patient Education: Transfer Techniques, Correct Positioning, Safety Issues Teaching Recipient: Patient Teaching Methods: Demonstration, Discussion Response to Teaching: Reinforcement Needed Time/GCodes Time In: 900 Time Out: 925 Total Billed Treatment Time: 30 Total Billed Treatment 1 visit FA 25 min GODWIN CANDELARIO PT Sep 25, 2016 09:31
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
[2016-09-25 12:00] VITALS: BP 116/56
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
--- NOTE | 2016-09-25 14:06 | Physical Therapy Daily Note ---
PT Daily Note-Current Subjective Patient and states that he just was put back to bed, he had been up all morning. He does not want to get back up but will participate in bed exercises. Patient states he has no pain at rest. Appearance Patient in bed post tx with nurse call, phone, tray, SCD's on, in room. Mental Status Patient Orientation: Person, Situation Transfers Functional [place] Measure 0=Not Assessed/NA 4=Minimal Assistance 1=Total Assistance 5=Supervision or Setup 2=Maximal Assistance 6=Modified [place] 3=Moderate Assistance 7=Complete IndependenceIRFPAI Quality Coding Scale 6 Independent with activity with or without an assistive device 5 Patient requires set up or clean up by helper. Patient completes activity by themselves 4 Supervision or touching assist (CGA). [place] provide cues , steadying assist 3 The helper provides less than half the effort to complete the activity 2 The helper provides more than half the effort to complete the activity 1 Dependent. The helper does all the effort to complete an activity 7 Patient refused to complete or attempt activity 9 The patient did not perform the activity before the current illness or injury 88 Not attempted due to Medical conditions or safety concerns Exercises Supine Ex: Ankle pumps, Quad Set, Heel Slides, Short Arc Quads, Straight leg raise, Hip abd/add Supine Reps: 10 Treatments functional strengthening, ROM Assessment Current Status: Poor Progress no change in mobility, patient resists practically any movement in his left leg PT Correction Goals Correction Goals PT Correction Goals Time Frame: Sep 28, 2016 Transfers (B,C,W/C) (FIM): 4 Gait (FIM): 2 Gait distance (FIM): 2=761-73 ft Gait Assistive Device: FWW PT Plan Problem List Problem List: Activity Tolerance, Functional Strength, Safety, Balance, Gait, Transfer, Bed Mobility, ROM Treatment/Plan Treatment Plan: Continue Plan of Care Treatment Plan: Bed Mobility, Functional Activity Mckin[place], Functional Strength, Gait, Safety, Therapeutic Exercise, Transfers Treatment Duration: Sep 28, 2016 Visits Per Week: 11 Safety Risks/Education Patient Education: Disease Process Teaching Recipient: Patient, Significant Other Teaching Methods: Demonstration, Discussion Response to Teaching: Reinforcement Needed Time/GCodes Time In: 1345 Time Out: 1400 Total Billed Treatment Time: 15 Total Billed Treatment 1 visit EX 15 min GODWIN CANDELARIO PT Sep 25, 2016 14:06
--- NOTE | 2016-09-25 14:35 | Cardiology Progress Note ---
Cardiology SOAP Progress Note Subjective: No significant cardiac symptoms. Objective: I&O/Vital Signs Vital Sign - Last 12Hours 09/25/16 09/25/16 09/25/16 09/25/16 03:01 04:00 07:00 07:14 Temp 100.6 Pulse 94 93 Resp 20 B/P 107/67 Pulse Ox 93 92 90 O2 Delivery Nasal Cannula O2 Flow Rate 4.50 4.00 4.50 09/25/16 09/25/16 09/25/16 09/25/16 08:00 11:18 12:00 13:00 Temp 98.9 100.2 Pulse 95 86 86 Resp 20 22 B/P 113/56 116/56 Pulse Ox 91 91 90 O2 Delivery Nasal Cannula Nasal Cannula O2 Flow Rate 4.00 4.50 4.00 09/25/16 14:12 Pulse Ox 93 O2 Flow Rate 4.50 Intake and Output 09/25/16 00:00 Intake Total 420 ml Output Total 250 ml Balance 170 ml Weight (Pounds): 207 Weight (Ounces): 6.4 Weight (Calculated Kilograms): 94.698326 Constitutional: No appears stated age, No AAO x 3, No apparent distress, No PERRL, No well-developed, No well-nourished, No other Respiratory: No accessory muscle use, No respiratory distress, No chest tender , No chest expansion is symmetric, No chest is bilaterally symmetric, No lungs clear to percussion, No lungs clear to auscultation, No crackles, No rhonchi, No rales, No stridor, No wheezing, No pleural rub, No other Cardiovascular: No regular rate-rhythm, No irregularly irregular, No extra beats, No parasternal heave is noted, No JVD, No edema, No bradycardia, No tachycardia, No point of maximal impulse, No cardiac thrills are palpable, No S1 and S2, No gallop/S3, No gallop/S4, No diastolic murmur, No systolic murmur, No friction rub, No click, No other Gastrointestional: No tender, No soft, No round, No distended, No pulsatile mass, No organomegaly, No guarding, No rebound, No tenderness, No hernia, No mass, No audible bowel sounds, No abnormal bowel sounds, No abdominal bruits, No spleenomegaly, No other Extremities: No normal range of motion, No non-tender, No normal inspection, No pedal edema, No calf tenderness, No normal capillary refill, No pelvis stable , No calf tenderness, No inflammation, No pedal edema, No slow capillary refill , No swelling, No other, No abrasion, No clubbing, No cyanosis, No ecchymosis, No laceration, No no lower extremity edema bilateral, No significant edema, No tenderness, No wound Neurologic/Psychiatric: No blunger II-XII nml as tested, No no motor/sensory deficits, No alert, No normal mood/affect, No oriented x 3, No abnormal cerebellar tests, No abnormal blunger II-XII, No abnormal gait, No aphasia, No EOM palsy, No facial droop, No motor weakness, No sensory deficit, No depressed affect, No disoriented x 3, No other, No grossly intact, No power is 5/5 both on sides Skin: No normal color, No warm/dry, No cyanosis, No cool, No diaphoresis, No damp, No ecchymosis, No jaundice, No mottled, No pallor, No rash, No tattoos/ piercings, No ulcerations, No rash on exposed areas, No ulcerations on exposed areas, No other Results/Procedures: Labs Laboratory Tests 09/25/16 05:15: Anion Gap 11, BUN/Creatinine Ratio 14, Basophils # (Auto) 0.0, Basophils (%) ( Auto) 0, Blood Urea Nitrogen 10, Calcium Level 8.4L, Carbon Dioxide Level 23, Chloride Level 106, Creatinine 0.71, Eosinophils # (Auto) 0.3, Eosinophils (%) ( Auto) 2, Estimat Glomerular Filtration Rate > 60, Glucose Level 126H, Hematocrit 32L, Hemoglobin 10.5L, INR Comment 1.3, Lymphocytes # (Auto) 1.3, Lymphocytes (%) (Auto) 12, Mean Corpuscular Hemoglobin 33, Mean Corpuscular Hemoglobin Concent 33, Mean Corpuscular Volume 99, Mean Platelet Volume 10.3, Monocytes # (Auto) 1.4H, Monocytes (%) (Auto) 13H, Neutrophils # (Auto) 7.7, Neutrophils (%) (Auto) 72, Platelet Count 123L, Potassium Level 3.8, Prothrombin Time 16.0H, Red Blood Count 3.20L, Red Cell Distribution Width 15.6H , Sodium Level 140, White Blood Count 10.7 Microbiology 09/22/16 MRSA Screen - Final, Complete MRSA not isolated A/P: Assessment/Dx: coronary artery disease, Ischemic cardiomyopathy ICD previous history of atrial fibrillation Plan: ischemic cardiomyopathy, ICD, history of AF: Outpatient medications restarted including Coumadin, amiodarone. Dr. Fonseca to follow-up tomorrow morning if still inpatient. Thank you for your consultation. Please call me if you have any questions. Simin Judd MD, FACP, FACC, FSCAI, FHRS, CCDS Interventional Cardiology Cardiac Electrophysiology Vascular Medicine and Endovascular Interventions Gabriela JUDD MD Sep 25, 2016 14:35
--- NOTE | 2016-09-25 15:25 | Diagnostic Imaging Report ---
EXAMINATION: AP and frog lateral views of the left hip. INDICATION: Left hip fracture status post ORIF. FINDINGS: There is an intertrochanteric fracture with minimal displacement. There is an internal fixation medullary nail in the femur with an interlocking screw into the femoral neck. No subluxation or dislocation. Hip joint moderate osteoarthritis is seen. IMPRESSION: Intact appearing hardware is noted with a reduced left intertrochanteric fracture. There is minimal remaining displacement. Dictated by: Dictated on workstation # [id number]
[2016-09-25 15:29] VITALS: BP 129/59
[2016-09-25] MEDS: oxyCODONE/APAP 5/325MG (PERCOCET 5) TABLET PO PRN (15:50)
[2016-09-25] MEDS: warFARin 5 MG (COUMADIN) TAB PO SCH (17:30)
[2016-09-25] MEDS: amLODIPine 5 MG (NORVASC) TAB PO SCH (20:40)
[2016-09-25 21:01] VITALS: BP 113/54
[2016-09-26] VITALS: BP 111/62
[2016-09-26] MEDS: HYDROcodone/APAP 5 MG/325 MG (LORTAB) TAB PO PRN ×3 (01:06→16:00)
[2016-09-26] MEDS: RT-ALBUTEROL/IPRATROPIUM 3 ML (DUONEB) VIAL INH PRN (03:06)
[2016-09-26 04:00] VITALS: BP 112/58
[2016-09-26 05:09] LABS: BASOPHILS % (AUTO) 0 % (0-10); EOSINOPHILS # (AUTO) 0.5 10^3/uL (0.0-0.3); EOSINOPHILS % (AUTO) 5 % (0-10); LYMPHOCYTES # (AUTO) 1.4 X 10^3 (1.0-4.0); LYMPHOCYTES % (AUTO) 16 % (12-44); MEAN CORPUSCULAR HEMOGLOBIN 32 PG (25-34); MEAN CORPUSCULAR HGB CONC 32 G/DL (32-36); MEAN CORPUSCULAR VOLUME 100 FL (80-99); MEAN PLATELET VOLUME 10.6 FL (7.4-10.4); MONOCYTES % (AUTO) 11 % (0-12); NEUTROPHILS # (AUTO) 6.1 X 10^3 (1.8-7.8); NEUTROPHILS % (AUTO) 68 % (42-75); PLATELET COUNT 137 10^3/uL (130-400); RED BLOOD COUNT 3.09 10^6/uL (4.35-5.85); RED CELL DISTRIBUTION WIDTH 15.8 % (10.0-14.5); WHITE BLOOD COUNT 8.9 10^3/uL (4.3-11.0)
[2016-09-26 05:23] LABS: INR 1.4 (0.8-1.4); PROTHROMBIN TIME PATIENT 17.2 SEC (12.2-14.7)
[2016-09-26 05:38] LABS: ANION GAP 11 MMOL/L (5-14); BLOOD UREA NITROGEN 19 MG/DL (7-18); BUN/CREATININE RATIO 23; CALCIUM 8.7 MG/DL (8.5-10.1); CARBON DIOXIDE 24 MMOL/L (21-32); CHLORIDE 105 MMOL/L (98-107); CREATININE SERUM 0.82 MG/DL (0.60-1.30); GFR ESTIMATED > 60; GLUCOSE 127 MG/DL (70-105); POTASSIUM 3.7 MMOL/L (3.6-5.0); SODIUM 140 MMOL/L (135-145)
[2016-09-26] MEDS: KCL 8 MEQ (MICRO K) TABLET PO SCH (06:01)
[2016-09-26] MEDS: PANTOPRAZOLE 40 MG (PROTONIX) TAB PO SCH (06:01)
[2016-09-26] MEDS: RT-ALBUTEROL/IPRATROPIUM 3 ML (DUONEB) VIAL INH SCH ×4 (06:55→19:38)
--- NOTE | 2016-09-26 07:36 | Pulmonary Progress Note ---
Subjective Subjective/Events-last exam NO complications noted. Pt denies SOB or productive cough.. Exam Exam Vital Signs Date Time Temp Pulse Resp B/P Pulse Ox O2 Delivery O2 Flow Rate FiO2 09/26/16 07:09 93 5.00 09/26/16 04:00 99.5 85 18 112/58 95 Nasal Cannula 4.00 09/26/16 03:06 95 5.00 09/26/16 01:00 86 09/26/16 00:00 100.2 85 18 111/62 94 Nasal Cannula 4.00 09/25/16 21:01 98.8 85 22 113/54 95 Nasal Cannula 4.00 09/25/16 20:59 98.8 09/25/16 20:40 Nasal Cannula 4.00 09/25/16 19:34 94 5.00 09/25/16 19:00 80 09/25/16 16:20 99.4 09/25/16 15:50 100.2 09/25/16 15:29 100.2 90 22 129/59 94 Nasal Cannula 4.00 09/25/16 14:12 93 4.50 09/25/16 13:00 86 09/25/16 12:00 100.2 86 22 116/56 90 Nasal Cannula 4.00 09/25/16 11:18 91 4.50 09/25/16 08:37 94 Nasal Cannula 4.00 09/25/16 08:00 98.9 95 20 113/56 91 Nasal Cannula 4.00 I & O 09/26/16 07:00 Intake Total 1840 ml Output Total 925 ml Balance 915 ml General Appearance: No Apparent Distress WD/WN Chronically ill Obese Other ( severely chronically ill) HEENT: PERRL/EOMI Normal ENT Inspection Pharynx Normal Neck: Full Range of Motion Normal Inspection Non Tender Supple Carotid Bruit Respiratory: Chest Non Tender No Accessory Muscle Use No Respiratory Distress Crackles (subtle in the bases) Decreased Breath Sounds Cardiovascular: No Edema No Gallop No JVD No Murmur Normal Peripheral Pulses Irregularly Irregular Capillary Refill: Less Than 3 Seconds Gastrointestinal: non tender soft Extremity: Normal Capillary Refill Normal Inspection Non Tender No Calf Tenderness No Pedal Edema Other (minimal movement of pelvis due to left hip pain ) Neurologic/Psychiatric: Alert Oriented x3 No Motor/Sensory Deficits Disoriented x3 Skin: Normal Color Warm/Dry Lymphatic: No Adenopathy Results Lab Laboratory Tests 09/25/16 05:15 09/26/16 04:40 Assessment/Plan Assessment/Plan Acute left hip fracture sustained in fall from scooter Severe COPD nighttime oxygen -SVNS, oxygen Atelectasis -increase activity, IS pulmonary edema -lasix Severe CAD with ischemic cardiomyopathy with defibrillator placement 1 year ago Atrial fibrillation Severe debility with poor prognosis long-term Pt is ok for discharge from pulmonary standpoint. Clinical Quality Measures DVT/VTE Risk/Contraindication: Risk Factor Score Per Nursin RFS Level Per Nursing on Admit: 4+=Very High VICENTE LUCIANO DO Sep 26, 2016 07:36
[2016-09-26] MEDS ORDERED: DIGO125T PO (08:33)
--- NOTE | 2016-09-26 08:34 | Diagnostic Imaging Report ---
INDICATION: COPD, ICU management. COMPARISON STUDY: Chest from yesterday. FINDINGS: A portable upright view of the chest demonstrates stable cardiomegaly and post operative changes. Some edema and pulmonary congestion have decreased. IMPRESSION: Improving congestive heart failure. Dictated by: Dictated on workstation # [id number]
[2016-09-26 08:37] VITALS: BP 124/57
[2016-09-26] MEDS: DIGOXIN 0.125 MG (LANOXIN) TAB PO SCH (09:01)
[2016-09-26] MEDS: LOSARTAN 50 MG (COZAAR) TAB PO SCH (09:01)
[2016-09-26] MEDS: AMIODARONE 200 MG (CORDARONE) TAB PO SCH (09:01)
[2016-09-26] MEDS: HYDROCHLOROTHIAZIDE 25 MG (HCTZ) TAB PO SCH (09:01)
[2016-09-26] MEDS: meTOprolol TARTRATE 50 MG (LOPRESSOR) TAB PO SCH ×2 (09:01→20:21)
[2016-09-26] MEDS: FUROSEMIDE 40 MG (LASIX) TAB PO SCH (09:02)
[2016-09-26] MEDS: SENNOSIDES 8.6 MG (SENOKOT) TAB PO SCH ×2 (09:02→20:21)
--- NOTE | 2016-09-26 09:55 | Physical Therapy Daily Note ---
PT Daily Note-Current Subjective Patient in bed pre tx, agrees to PT, states he has pain of 8/10 in left hip. Patient is wheezing and SOB just laying in the bed. Appearance Patient in recliner post tx with nurse call, phone, tray, in room. Mental Status Patient Orientation: Person, Place, Situation Attachments: Oxygen Transfers Functional [place] Measure 0=Not Assessed/NA 4=Minimal Assistance 1=Total Assistance 5=Supervision or Setup 2=Maximal Assistance 6=Modified [place] 3=Moderate Assistance 7=Complete IndependenceIRFPAI Quality Coding Scale 6 Independent with activity with or without an assistive device 5 Patient requires set up or clean up by helper. Patient completes activity by themselves 4 Supervision or touching assist (CGA). Force provide cues , steadying assist 3 The helper provides less than half the effort to complete the activity 2 The helper provides more than half the effort to complete the activity 1 Dependent. The helper does all the effort to complete an activity 7 Patient refused to complete or attempt activity 9 The patient did not perform the activity before the current illness or injury 88 Not attempted due to Medical conditions or safety concerns Transfers (B, C, W/C) (FIM): 1 Scootin Rollin Supine to/from Sit: 2 Sit to/from Stand: 1 Bed to/from Chair: 1 Patient was transferred to a chair from the bed with therapist doing about 90% of the work. After the transfer patient states "well that wasn't too bad, how did I do". Exercises Seated Therapy Exercises: Ankle pumps, Long arc quads, Hip flexion Seated Reps: 20 Treatments bed mobility and transfers, functional strengthening Assessment Current Status: Poor Progress Patient has had no changes in mobility. He seems unaware of his deficits. Patient has a lot of trouble breathing. 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 Time Frame: Sep 28, 2016 Transfers (B,C,W/C) (FIM): 4 Gait (FIM): 2 Gait distance (FIM): 8=102-12 ft Gait Assistive Device: FWW PT Plan Problem List Problem List: Activity Tolerance, Functional Strength, Safety, Balance, Gait, Transfer, Bed Mobility, ROM Treatment/Plan Treatment Plan: Continue Plan of Care Treatment Plan: Bed Mobility, Functional Activity M[place]in[place], Functional Strength, Gait, Safety, Therapeutic Exercise, Transfers Treatment Duration: Sep 28, 2016 Visits Per Week: 11 Safety Risks/Education Patient Education: Transfer Techniques, Correct Positioning, Safety Issues Teaching Recipient: Patient Teaching Methods: Demonstration, Discussion Response to Teaching: Reinforcement Needed Time/GCodes Time In: 930 Time Out: 950 Total Billed Treatment Time: 20 Total Billed Treatment 1 visit FA 20 min GODWIN CANDELARIO PT Sep 26, 2016 09:54
--- NOTE | 2016-09-26 11:35 | Physician Query ---
PQ-Link Manifestation-Etiology Admission/Discharge Admission Date: Sep 22, 2016 at 18:44 Discharge Date: The medical record reflects the following clinical scenario: History/Risk Factors: Ischemic cardiomyopathy,Cardiac defibrillator and Severe COPD. Clinical Findings: Pulmonary edema per your 09/25 progress note, 09/26 chest x ray impression: Improving congestive heart failure. Treatment: 40mg Lasix, IS, DuoNeb breathing treatments. Question: 1. Can you specify if the pulmonary edema is due to/associated with congestive heart failure? 2. If so, please specify, acute,chronic or acute on chronic. 3. If so, please specify if systolic, diastolic, combined or unspecified or unable to clinically determine? 4. If pulmonary edema only, please clarify if acute,chronic, unspecified or unable to clinically determine? Please document a response below Manifestation due to/assoic: Clinically undetermined In responding to this query, please exercise your independent professional judgment. The purpose of this communication is to more accurately reflect the complexity of your patients condition. The fact that a question is asked does not imply that any particular answer is desired or expected. Thank you for your timely response to this clarification. Requestors name: Pinky Allen [facility] Phone # ext. [phone] or [phone] THIS PHYSICIAN QUERY FORM IS A PERMANENT PART OF THE MEDICAL RECORD PINKY ALLEN Sep 26, 2016 11:34 VICENTE LUCIANO DO Oct 25, 2016 09:38
--- NOTE | 2016-09-26 11:55 | Progress Note (SOAP) ---
Subjective Subjective/Events-last exam POD #2 s/p left TFN. Has some hip pain. He has hx of COPD and CAD and has been seen by Dr Hogue who is ok with d/c. Will likely need rehab placement for strengthening. Review of Systems General: No Chills, No Night Sweats Pulmonary: Cough Cardiovascular: No: Chest Pain, Palpitations Gastrointestinal: No: Abdominal Pain, Nausea, Vomiting Musculoskeletal: : leg pain Neurological: : WeaknessNo: Change in speech, Confusion, Incoordination, Numbness Objective Exam Vital Signs Date Time Temp Pulse Resp B/P Pulse Ox O2 Delivery O2 Flow Rate FiO2 09/26/16 10:19 88 5.00 09/26/16 08:37 97.3 84 20 124/57 91 Nasal Cannula 4.00 09/26/16 08:00 91 Nasal Cannula 4.00 09/26/16 07:09 93 5.00 09/26/16 07:00 80 09/26/16 04:00 99.5 85 18 112/58 95 Nasal Cannula 4.00 09/26/16 03:06 95 5.00 09/26/16 01:00 86 09/26/16 00:00 100.2 85 18 111/62 94 Nasal Cannula 4.00 09/25/16 21:01 98.8 85 22 113/54 95 Nasal Cannula 4.00 09/25/16 20:59 98.8 09/25/16 20:40 Nasal Cannula 4.00 09/25/16 19:34 94 5.00 09/25/16 19:00 80 09/25/16 16:20 99.4 09/25/16 15:50 100.2 09/25/16 15:29 100.2 90 22 129/59 94 Nasal Cannula 4.00 09/25/16 14:12 93 4.50 09/25/16 13:00 86 09/25/16 12:00 100.2 86 22 116/56 90 Nasal Cannula 4.00 I & O 09/26/16 07:00 Intake Total 1840 ml Output Total 925 ml Balance 915 ml Capillary Refill : Less Than 3 SecondsLess Than 3 Seconds General Appearance: No Apparent Distress Neck: Normal Inspection Respiratory: No Respiratory Distress Cardiovascular: Normal Peripheral Pulses Peripheral Pulses: 2+ Dorsalis Pedis (R), 2+ Left Dors-Pedis (L) Gastrointestinal: soft no pulsatile mass Extremity: Non Tender No Calf Tenderness Neurologic/Psychiatric: Alert Oriented x3 No Motor/Sensory Deficits Normal Mood/Affect Skin: Normal Color Warm/Dry Results Lab Laboratory Tests 09/26/16 04:40: Anion Gap 11, BUN/Creatinine Ratio 23, Basophils # (Auto) 0.0, Basophils (%) ( Auto) 0, Blood Urea Nitrogen 19H, Calcium Level 8.7, Carbon Dioxide Level 24, Chloride Level 105, Creatinine 0.82, Eosinophils # (Auto) 0.5H, Eosinophils (%) (Auto) 5, Estimat Glomerular Filtration Rate > 60, Glucose Level 127H, Hematocrit 31L, Hemoglobin 9.9L, INR Comment 1.4, Lymphocytes # (Auto) 1.4, Lymphocytes (%) (Auto) 16, Mean Corpuscular Hemoglobin 32, Mean Corpuscular Hemoglobin Concent 32, Mean Corpuscular Volume 100H, Mean Platelet Volume 10.6H , Monocytes # (Auto) 1.0, Monocytes (%) (Auto) 11, Neutrophils # (Auto) 6.1, Neutrophils (%) (Auto) 68, Platelet Count 137, Potassium Level 3.7, Prothrombin Time 17.2H, Red Blood Count 3.09L, Red Cell Distribution Width 15.8H, Sodium Level 140, White Blood Count 8.9 Microbiology 09/22/16 MRSA Screen - Final, Complete MRSA not isolated Assessment/Plan Assessment/Plan Assess & Plan/Chief Complaint POD #1 s/p left TFN CAD with cardiomyopathy COPD Plan: OOB with PT full WBAT continue working with PT pain control compression stockings for DVT prophylaxis - has resumed coumadin IS at bedside and encouraged follow up in clinic in 2 weeks Diagnosis/Problems: Clinical Quality Measures DVT/VTE Risk/Contraindication: Risk Factor Score Per Nursin RFS Level Per Nursing on Admit: 4+=Very High ALEJANDRO LEMON Sep 26, 2016 11:55
--- NOTE | 2016-09-26 12:04 | Progress Note (SOAP) ---
Subjective Subjective/Events-last exam Increasing productive cough at this time. Not able to titrate down on oxygen at all. Tolerating PO. Pain well controlled on PO medications. BM yesterday. Date seen by provider: Sep 26, 2016 Objective Exam Last Set of Vital Signs Vital Signs Date Time Temp Pulse Resp B/P Pulse Ox O2 Delivery O2 Flow Rate FiO2 09/26/16 10:19 88 5.00 09/26/16 08:37 97.3 84 20 124/57 Nasal Cannula Capillary Refill : Less Than 3 SecondsLess Than 3 Seconds I&O Intake and Output 09/26/16 00:00 Intake Total 1740 ml Output Total 850 ml Balance 890 ml Intake Oral 1740 ml Output Urine Total 850 ml General: Alert, Oriented X3, Cooperative, No Acute Distress Neck: Supple, No JVD Lungs: Other (+ wheezing scattered) Heart: Regular Rate, Normal S1, Normal S2, No Murmurs Abdomen: Normal Bowel Sounds, Soft, No Tenderness, No Hepatosplenomegaly Skin: No Rashes Psych/Mental Status: Mental Status NL, Mood NL Results/Procedures Lab Laboratory Tests 09/26/16 04:40: Anion Gap 11, BUN/Creatinine Ratio 23, Basophils # (Auto) 0.0, Basophils (%) ( Auto) 0, Blood Urea Nitrogen 19H, Calcium Level 8.7, Carbon Dioxide Level 24, Chloride Level 105, Creatinine 0.82, Eosinophils # (Auto) 0.5H, Eosinophils (%) (Auto) 5, Estimat Glomerular Filtration Rate > 60, Glucose Level 127H, Hematocrit 31L, Hemoglobin 9.9L, INR Comment 1.4, Lymphocytes # (Auto) 1.4, Lymphocytes (%) (Auto) 16, Mean Corpuscular Hemoglobin 32, Mean Corpuscular Hemoglobin Concent 32, Mean Corpuscular Volume 100H, Mean Platelet Volume 10.6H , Monocytes # (Auto) 1.0, Monocytes (%) (Auto) 11, Neutrophils # (Auto) 6.1, Neutrophils (%) (Auto) 68, Platelet Count 137, Potassium Level 3.7, Prothrombin Time 17.2H, Red Blood Count 3.09L, Red Cell Distribution Width 15.8H, Sodium Level 140, White Blood Count 8.9 Microbiology 09/22/16 MRSA Screen - Final, Complete MRSA not isolated Assessment/Plan Assessment/Plan Plan 76 yo M that was admitted after he fell from his scooter and was found to have Left hip fracture, now POD #3 Plan Left hip fracture s/p ORIF by Ortho now POD #3 - Pain is well controlled, Continue Stool softeners and stimulates - Encouraged up to chair at least TID - Continue IS - Accepted by Inpatient Rehab - Continue Coumadin, PT/INR tomorrow CAD with ischemic Cardiomyopathy - Denies chest pain, Stable post surgery COPD with oxygen dependence at night - Currently on oxygen during the day as well - Continue PRN and scheduled breathing treatments - Patient high risk for Post op PNA, Encouraged activity and frequent IS - Started on steroid burst today Severe Debility - patient to inpatient rehab FEN: Heart healthy diet DVT: Lovenox/coumadin Dispo: D/c to IRF tomorrow Diagnosis/Problems: Clinical Quality Measures DVT/VTE Risk/Contraindication: Risk Factor Score Per Nursin RFS Level Per Nursing on Admit: 4+=Very High NAE BERMEO MD Sep 26, 2016 12:04
--- NOTE | 2016-09-26 12:39 | Cardiology Progress Note ---
Cardiology SOAP Progress Note Subjective: No cardiac complaints Objective: I&O/Vital Signs Vital Sign - Last 12Hours 09/26/16 09/26/16 09/26/16 09/26/16 01:00 03:06 04:00 07:00 Temp 99.5 Pulse 86 85 80 Resp 18 B/P 112/58 Pulse Ox 95 95 O2 Delivery Nasal Cannula O2 Flow Rate 5.00 4.00 09/26/16 09/26/16 09/26/16 09/26/16 07:09 08:00 08:37 10:19 Temp 97.3 Pulse 84 Resp 20 B/P 124/57 Pulse Ox 93 91 91 88 O2 Delivery Nasal Cannula Nasal Cannula O2 Flow Rate 5.00 4.00 4.00 5.00 Intake and Output 09/26/16 00:00 Intake Total 1540 ml Output Total 600 ml Balance 940 ml Weight (Pounds): 207 Weight (Ounces): 6.4 Weight (Calculated Kilograms): [id number] Constitutional: No appears stated age, No AAO x 3, No apparent distress, No PERRL, No well-developed, No well-nourished, No other Respiratory: No accessory muscle use, No respiratory distress, No chest tender , No chest expansion is symmetric, No chest is bilaterally symmetric, No lungs clear to percussion, No lungs clear to auscultation, No crackles, No rhonchi, No rales, No stridor, No wheezing, No pleural rub, No other Cardiovascular: No regular rate-rhythm, No irregularly irregular, No extra beats, No parasternal heave is noted, No JVD, No edema, No bradycardia, No tachycardia, No point of maximal impulse, No cardiac thrills are palpable, No S1 and S2, No gallop/S3, No gallop/S4, No diastolic murmur, No systolic murmur, No friction rub, No click, No other Gastrointestional: No tender, No soft, No round, No distended, No pulsatile mass, No organomegaly, No guarding, No rebound, No tenderness, No hernia, No mass, No audible bowel sounds, No abnormal bowel sounds, No abdominal bruits, No spleenomegaly, No other Extremities: No normal range of motion, No non-tender, No normal inspection, No pedal edema, No calf tenderness, No normal capillary refill, No pelvis stable , No calf tenderness, No inflammation, No pedal edema, No slow capillary refill , No swelling, No other, No abrasion, No clubbing, No cyanosis, No ecchymosis, No laceration, No no lower extremity edema bilateral, No significant edema, No tenderness, No wound Neurologic/Psychiatric: No property insurance agent II-XII nml as tested, No no motor/sensory deficits, No alert, No normal mood/affect, No oriented x 3, No abnormal cerebellar tests, No abnormal property insurance agent II-XII, No abnormal gait, No aphasia, No EOM palsy, No facial droop, No motor weakness, No sensory deficit, No depressed affect, No disoriented x 3, No other, No grossly intact, No power is 5/5 both on sides Skin: No normal color, No warm/dry, No cyanosis, No cool, No diaphoresis, No damp, No ecchymosis, No jaundice, No mottled, No pallor, No rash, No tattoos/ piercings, No ulcerations, No rash on exposed areas, No ulcerations on exposed areas, No other Results/Procedures: Labs Laboratory Tests 09/26/16 04:40: Anion Gap 11, BUN/Creatinine Ratio 23, Basophils # (Auto) 0.0, Basophils (%) ( Auto) 0, Blood Urea Nitrogen 19H, Calcium Level 8.7, Carbon Dioxide Level 24, Chloride Level 105, Creatinine 0.82, Eosinophils # (Auto) 0.5H, Eosinophils (%) (Auto) 5, Estimat Glomerular Filtration Rate > 60, Glucose Level 127H, Hematocrit 31L, Hemoglobin 9.9L, INR Comment 1.4, Lymphocytes # (Auto) 1.4, Lymphocytes (%) (Auto) 16, Mean Corpuscular Hemoglobin 32, Mean Corpuscular Hemoglobin Concent 32, Mean Corpuscular Volume 100H, Mean Platelet Volume 10.6H , Monocytes # (Auto) 1.0, Monocytes (%) (Auto) 11, Neutrophils # (Auto) 6.1, Neutrophils (%) (Auto) 68, Platelet Count 137, Potassium Level 3.7, Prothrombin Time 17.2H, Red Blood Count 3.09L, Red Cell Distribution Width 15.8H, Sodium Level 140, White Blood Count 8.9 Microbiology 09/22/16 MRSA Screen - Final, Complete MRSA not isolated A/P: Assessment/Dx: coronary artery disease, Ischemic cardiomyopathy ICD previous history of atrial fibrillation Plan: ischemic cardiomyopathy, ICD, history of AF: Outpatient medications restarted including Coumadin, amiodarone. Thank you for your consultation. Please call me if you have any questions. Simin Judd MD, FACP, FACC, FSCAI, FHRS, CCDS Interventional Cardiology Cardiac Electrophysiology Vascular Medicine and Endovascular Interventions Gabriela JUDD MD Sep 26, 2016 12:39
[2016-09-26 12:52] VITALS: BP 114/55
[2016-09-26] MEDS: predniSONE 20 MG TAB PO SCH (12:59)
--- NOTE | 2016-09-26 13:03 | Occupational Ther Daily Note ---
OT Current Status-Daily Note Subjective t seen in room, up in recliner, agreeable to OT. No pain mentioned Appearance Alert, cooperative, easily fatigued and SOB Mental Status/Objective Functional [place] Measure 0=Not Assessed/NA 4=Minimal Assistance 1=Total Assistance 5=Supervision or Setup 2=Maximal Assistance 6=Modified [place] 3=Moderate Assistance 7=Complete [place] Attachments: Kendall Catheter, IV, Oxygen, Telemetry ADL-Treatment Pt agreed to sponge bath while seated up in recliner. Some difficulty leaning forward to sit upright edge of chair - he was able to maintain position once there. Pt was able to wash face and hands, arms, chest, thighs. (50%). Pt was unable to wash under tummy or in groin/pieter area. No redness noted under tummy folds or groin. Unable to wash penis/scrotum and inner thighs due to edema. Pt' s breathing was gurgly and he had to take multiple rest breaks throughout the process. Pt was able to get hospital gown on. ADLs took much longer than usual due to decreased activity tolerance. Question if patient will be able to tolerate the intensity of inpatient rehab. Pt left up in recliner, all needs met. Education OT Patient Education: Progress toward Goal/Update tx plan Teaching Recipient: Patient Teaching Methods: Discussion OT Short Term Goals Short Term Goals 1=Demonstrate adherence to instructed precautions during ADL tasks. 2=Patient will verbalize/demonstrate understanding of assistive devices/ modifications for ADL. 3=Patient will improve strength/tolerance for activity to enable patient to perform ADL's. OT Shelter Goals Orthodontic Band Maker Goals Time Frame: Oct 02, 2016 Eating (FIM): 6 Grooming(FIM): 5 Bathing(FIM): 3 Upper Body Dressing(FIM): 5 Lower Body Dressing(FIM): 3 Toileting(FIM): 3 Toilet/Commode Transfer(FIM): 3 Additional Goals: 2-Verbalize Understanding, 3-ImproveStrength/[place] 1=Demonstrate adherence to instructed precautions during ADL tasks. 2=Patient will verbalize/demonstrate understanding of assistive devices/ modifications for ADL. 3=Patient will improve strength/tolerance for activity to enable patient to perform ADL's. OT Education/Plan Problem List/Assessment PT ismael benefit from skilled OT to increase his independence in basic self care to allow him to return home to live safely with after a fall with L hip fx and repain Discharge Recommendations Plan/Recommendations: Continue POC Treatment Plan/Plan of Care Patient would benefit from OT for education, treatment and training to promote independence in ADL's, mobility, safety and/or upper extremity function for ADL' s. Plan of Care: ADL Retraining, Functional Mobility, UE Funct Exercise/Act, UE Neuromus Re-Ed/Coord Treatment Duration: Oct 02, 2016 Visits Per Week: 5 Agreement: Yes Rehab Potential: Fair Time/GCodes Start Time: 11:30 Stop Time: 11:59 Total Time Billed (hr/min): 29 Billed Treatment Time visit, 29 minutes ADL KD LIM OT Sep 26, 2016 13:03
--- NOTE | 2016-09-26 14:54 | Physical Therapy Daily Note ---
PT Daily Note-Current Subjective Patient in bed pre tx, he and his state that nursing just got him back to bed using the sit to stand machine and he will not be able to get up right now. Patient agrees to hip protocol in bed. Pain Numeric Pain Scale: 3 Location: Left Location Body Site: Hip Appearance Patient in bed post tx with nurse call, phone, tray, in room. Mental Status Patient Orientation: Person, Place, Situation Attachments: Oxygen Transfers Functional [place] Measure 0=Not Assessed/NA 4=Minimal Assistance 1=Total Assistance 5=Supervision or Setup 2=Maximal Assistance 6=Modified [place] 3=Moderate Assistance 7=Complete IndependenceIRFPAI Quality Coding Scale 6 Independent with activity with or without an assistive device 5 Patient requires set up or clean up by helper. Patient completes activity by themselves 4 Supervision or touching assist (CGA). [place] provide cues , steadying assist 3 The helper provides less than half the effort to complete the activity 2 The helper provides more than half the effort to complete the activity 1 Dependent. The helper does all the effort to complete an activity 7 Patient refused to complete or attempt activity 9 The patient did not perform the activity before the current illness or injury 88 Not attempted due to Medical conditions or safety concerns Exercises Supine Ex: Ankle pumps, Quad Set, Glut sets, Heel Slides, Short Arc Quads, Straight leg raise, Hip abd/add Supine Reps: 10 Treatments functional strengthening, patient states his left heel is getting sore, no excessive redness or sores upon inspection, pillow used to elevate left heel post tx Assessment Current Status: Poor Progress no change in mobility, patient is barely able to more his left leg and resists movement due to pain at the end of tx he states "I think I'm doing pretty good, what do you think". Still difficulty with breathing just laying in bed. PT Custodial Goals Custodial Goals PT Custodial Goals Time Frame: Sep 28, 2016 Transfers (B,C,W/C) (FIM): 4 Gait (FIM): 2 Gait distance (FIM): 5=333-45 ft Gait Assistive Device: FWW PT Plan Problem List Problem List: Activity Tolerance, Functional Strength, Safety, Balance, Gait, Transfer, Bed Mobility, ROM Treatment/Plan Treatment Plan: Continue Plan of Care Treatment Plan: Bed Mobility, Functional Activity [place], Functional Strength, Gait, Safety, Therapeutic Exercise, Transfers Treatment Duration: Sep 28, 2016 Visits Per Week: 11 Safety Risks/Education Patient Education: Correct Positioning, Safety Issues Teaching Recipient: Patient Teaching Methods: Demonstration, Discussion Response to Teaching: Reinforcement Needed Time/GCodes Time In: 1430 Time Out: 1445 Total Billed Treatment Time: 15 Total Billed Treatment 1 visit EX 15 min GODWIN CANDELARIO PT Sep 26, 2016 14:54
[2016-09-26 15:35] VITALS: BP 134/73
[2016-09-26] MEDS: warFARin 5 MG (COUMADIN) TAB PO SCH (19:04)
[2016-09-26 19:05] VITALS: BP 135/72
[2016-09-26] MEDS: amLODIPine 5 MG (NORVASC) TAB PO SCH (20:21)
[2016-09-27] VITALS: BP 136/75
[2016-09-27] MEDS: HYDROcodone/APAP 5 MG/325 MG (LORTAB) TAB PO PRN ×3 (00:13→15:28)
[2016-09-27 04:00] VITALS: BP 131/71
[2016-09-27 05:21] LABS: BASOPHILS % (AUTO) 0 % (0-10); EOSINOPHILS % (AUTO) 1 % (0-10); LYMPHOCYTES # (AUTO) 0.9 X 10^3 (1.0-4.0); LYMPHOCYTES % (AUTO) 11 % (12-44); MEAN CORPUSCULAR HEMOGLOBIN 32 PG (25-34); MEAN CORPUSCULAR HGB CONC 32 G/DL (32-36); MEAN CORPUSCULAR VOLUME 99 FL (80-99); MEAN PLATELET VOLUME 10.6 FL (7.4-10.4); MONOCYTES % (AUTO) 12 % (0-12); NEUTROPHILS # (AUTO) 6.5 X 10^3 (1.8-7.8); NEUTROPHILS % (AUTO) 77 % (42-75); PLATELET COUNT 162 10^3/uL (130-400); RED BLOOD COUNT 3.02 10^6/uL (4.35-5.85); RED CELL DISTRIBUTION WIDTH 15.4 % (10.0-14.5); WHITE BLOOD COUNT 8.5 10^3/uL (4.3-11.0)
[2016-09-27 05:33] LABS: INR 1.5 (0.8-1.4); PROTHROMBIN TIME PATIENT 17.6 SEC (12.2-14.7)
[2016-09-27 05:42] LABS: ANION GAP 12 MMOL/L (5-14); BLOOD UREA NITROGEN 25 MG/DL (7-18); BUN/CREATININE RATIO 32; CALCIUM 9.1 MG/DL (8.5-10.1); CARBON DIOXIDE 26 MMOL/L (21-32); CHLORIDE 104 MMOL/L (98-107); CREATININE SERUM 0.79 MG/DL (0.60-1.30); GFR ESTIMATED > 60; GLUCOSE 115 MG/DL (70-105); POTASSIUM 4.1 MMOL/L (3.6-5.0); SODIUM 142 MMOL/L (135-145)
[2016-09-27] MEDS: PANTOPRAZOLE 40 MG (PROTONIX) TAB PO SCH (06:17)
[2016-09-27] MEDS: predniSONE 20 MG TAB PO SCH (06:17)
[2016-09-27] MEDS: KCL 8 MEQ (MICRO K) TABLET PO SCH (06:17)
[2016-09-27] MEDS: RT-ALBUTEROL/IPRATROPIUM 3 ML (DUONEB) VIAL INH SCH ×4 (07:00→20:02)
--- NOTE | 2016-09-27 08:08 | Diagnostic Imaging Report ---
EXAMINATION: Portable upright radiograph of the chest. INDICATION: Shortness of breath and cough. COMPARISON: 09/26/16. FINDINGS: There is moderate cardiomegaly with decreased lung volumes and with pulmonary vascular congestion, minimally increased from the prior exam. There is right basilar subsegmental infiltrate or atelectasis seen. Air density under the right hemidiaphragm is probably related to colonic air rather than pneumoperitoneum. The pacemaker and associated cardiac leads and sternotomy wires are again noted. IMPRESSION: 1. Cardiomegaly with pulmonary vascular congestion. There is subsegmental atelectasis or infiltrate in the right lung base and low lung volumes. 2. Air density under the right hemidiaphragm is the favored to be related to colonic interposition. If there is clinical suspicion for from pneumoperitoneum, then an upright or a right lateral decubitus views of the abdomen are suggested. Report was faxed to the [facility] by jing at 8:10 am. Dictated by: Dictated on workstation # [id number]
[2016-09-27 08:10] VITALS: BP 122/57
[2016-09-27] MEDS: LOSARTAN 50 MG (COZAAR) TAB PO SCH (09:16)
[2016-09-27] MEDS: FUROSEMIDE 40 MG (LASIX) TAB PO SCH (09:16)
[2016-09-27] MEDS: DIGOXIN 0.125 MG (LANOXIN) TAB PO SCH (09:16)
[2016-09-27] MEDS: HYDROCHLOROTHIAZIDE 25 MG (HCTZ) TAB PO SCH (09:16)
[2016-09-27] MEDS: AMIODARONE 200 MG (CORDARONE) TAB PO SCH (09:16)
[2016-09-27] MEDS: SENNOSIDES 8.6 MG (SENOKOT) TAB PO SCH ×2 (09:16→20:27)
[2016-09-27] MEDS: meTOprolol TARTRATE 50 MG (LOPRESSOR) TAB PO SCH ×2 (09:17→20:27)
--- NOTE | 2016-09-27 09:41 | Physical Therapy Daily Note ---
PT Daily Note-Current Subjective Patient in bed pre tx, agrees to PT, states he has pain of 5/10 in left hip. Appearance Patient in recliner post tx with nurse call, phone, tray, in the room. Mental Status Patient Orientation: Person, Place, Situation Attachments: Oxygen Transfers Functional [place] Measure 0=Not Assessed/NA 4=Minimal Assistance 1=Total Assistance 5=Supervision or Setup 2=Maximal Assistance 6=Modified [place] 3=Moderate Assistance 7=Complete IndependenceIRFPAI Quality Coding Scale 6 Independent with activity with or without an assistive device 5 Patient requires set up or clean up by helper. Patient completes activity by themselves 4 Supervision or touching assist (CGA). [place] provide cues , steadying assist 3 The helper provides less than half the effort to complete the activity 2 The helper provides more than half the effort to complete the activity 1 Dependent. The helper does all the effort to complete an activity 7 Patient refused to complete or attempt activity 9 The patient did not perform the activity before the current illness or injury 88 Not attempted due to Medical conditions or safety concerns Transfers (B, C, W/C) (FIM): 1 Scootin Rollin Supine to/from Sit: 2 Sit to/from Stand: 1 Bed to/from Chair: 1 Patient did seem to be able to bear a little weight through his left leg this time but transfer was still more than max assist. Exercises Seated Therapy Exercises: Ankle pumps, Long arc quads, Hip flexion, Hamstring Curls Seated Reps: 10 Treatments bed mobility and transfers, functional strengthening Assessment Current Status: Poor Progress Patient is not making gains with mobility, in fact after PT left the room we were called back to his room because he needed assistance to scoot back in the recliner a little more, even with his legs elevated. PT Senior Care Goals Senior Care Goals PT Alternative Medicine Practitioner Goals Time Frame: Sep 28, 2016 Transfers (B,C,W/C) (FIM): 4 Gait (FIM): 2 Gait distance (FIM): 3=570-44 ft Gait Assistive Device: FWW PT Plan Problem List Problem List: Activity Tolerance, Functional Strength, Safety, Balance, Gait, Transfer, Bed Mobility, ROM Treatment/Plan Treatment Plan: Continue Plan of Care Treatment Plan: Bed Mobility, Education, Functional Activity [place], Functional Strength, Gait, Safety, Therapeutic Exercise, Transfers Treatment Duration: Sep 28, 2016 Visits Per Week: 11 Safety Risks/Education Patient Education: Transfer Techniques, Correct Positioning, Safety Issues Teaching Recipient: Patient Teaching Methods: Demonstration, Discussion Response to Teaching: Reinforcement Needed Time/GCodes Time In: 920 Time Out: 940 Total Billed Treatment Time: 20 Total Billed Treatment 1 visit FA 20 min GODWIN CANDELARIO PT Sep 27, 2016 09:41
--- NOTE | 2016-09-27 11:19 | Occupational Ther Daily Note ---
OT Current Status-Daily Note Subjective Pt seen in room, up in recliner, agreeable to OT. No pain mentioned. Mental Status/Objective Functional [place] Measure 0=Not Assessed/NA 4=Minimal Assistance 1=Total Assistance 5=Supervision or Setup 2=Maximal Assistance 6=Modified [place] 3=Moderate Assistance 7=Complete [place] ADL-Treatment Pt still has Kendall catheter. Will not do lower body ADLs because removing pants will be difficult if pt needs to have BM and get on BSC, due to decreased mobility. Pt cannot reach his feet - has difficulty coming to sitting away from back of recliner. Other Treatment Pt education several different bilat UE exercises done without additional resistance, to help strengthen arms to help with sit to stand and transfers. Pt did 12 reps each exercise and his followed along (she was encouraged to lock the brakes on her w/c for stability), working on shoulders, elbows, forearms and wrists. Pt also did bilat chair pushups x 12 reps, with visible shoulder muscle contractions, to stabilize shoulders for transfers. Pt left up in recliner, all needs met. Education OT Patient Education: Exercise program Teaching Recipient: Patient Teaching Methods: Demonstration Response to Teaching: Return Demonstration, Reinforcement Needed OT Short Term Goals Short Term Goals 1=Demonstrate adherence to instructed precautions during ADL tasks. 2=Patient will verbalize/demonstrate understanding of assistive devices/ modifications for ADL. 3=Patient will improve strength/tolerance for activity to enable patient to perform ADL's. OT Longterm Goals Drill Press Set Up Operator Goals Time Frame: Oct 02, 2016 Eating (FIM): 6 Grooming(FIM): 5 Bathing(FIM): 3 Upper Body Dressing(FIM): 5 Lower Body Dressing(FIM): 3 Toileting(FIM): 3 Toilet/Commode Transfer(FIM): 3 Additional Goals: 2-Verbalize Understanding, 3-ImproveStrength/[place] 1=Demonstrate adherence to instructed precautions during ADL tasks. 2=Patient will verbalize/demonstrate understanding of assistive devices/ modifications for ADL. 3=Patient will improve strength/tolerance for activity to enable patient to perform ADL's. OT Education/Plan Problem List/Assessment PT ismael benefit from skilled OT to increase his independence in basic self care to allow him to return home to live safely with after a fall with L hip fx and repain Discharge Recommendations Plan/Recommendations: Continue POC Treatment Plan/Plan of Care Patient would benefit from OT for education, treatment and training to promote independence in ADL's, mobility, safety and/or upper extremity function for ADL' s. Plan of Care: ADL Retraining, Functional Mobility, UE Funct Exercise/Act, UE Neuromus Re-Ed/Coord Treatment Duration: Oct 02, 2016 Visits Per Week: 5 Agreement: Yes Rehab Potential: Fair Time/GCodes Start Time: 10:45 Stop Time: 11:05 Total Time Billed (hr/min): 20 Billed Treatment Time visit, 20 minutes exercise KD LIM OT Sep 27, 2016 11:19
[2016-09-27 12:13] VITALS: BP 113/55
--- NOTE | 2016-09-27 13:35 | Physical Therapy Daily Note ---
PT Daily Note-Current Subjective Patient in recliner pre tx, asks to help him get back to bed. States pain is 8/ 10 in left hip. Appearance Patient in bed post tx with nurse call, phone, tray, in room, has SCD's on , pillow underneath left foot for heel elevation because he says it is sore. Mental Status Patient Orientation: Person, Place, Situation Attachments: Oxygen Transfers Functional [place] Measure 0=Not Assessed/NA 4=Minimal Assistance 1=Total Assistance 5=Supervision or Setup 2=Maximal Assistance 6=Modified [place] 3=Moderate Assistance 7=Complete IndependenceIRFPAI Quality Coding Scale 6 Independent with activity with or without an assistive device 5 Patient requires set up or clean up by helper. Patient completes activity by themselves 4 Supervision or touching assist (CGA). [place] provide cues , steadying assist 3 The helper provides less than half the effort to complete the activity 2 The helper provides more than half the effort to complete the activity 1 Dependent. The helper does all the effort to complete an activity 7 Patient refused to complete or attempt activity 9 The patient did not perform the activity before the current illness or injury 88 Not attempted due to Medical conditions or safety concerns Transfers (B, C, W/C) (FIM): 1 Scootin Rollin Supine to/from Sit: 1 Sit to/from Stand: 1 Bed to/from Chair: 1 patient was very tired/fatigued but seemed to be able to bear a little weight through his legs during the transfer, he could not take any steps and for the most part resisted movement Exercises Supine Ex: Ankle pumps, Quad Set, Heel Slides, Short Arc Quads, Straight leg raise, Hip abd/add Supine Reps: 10 Treatments bed mobility and transfers, functional strengthening Assessment Current Status: Poor Progress no functional change in mobility PT Textiles And Clothing Teacher Goals Mcc Goals PT Mcc Goals Time Frame: Sep 28, 2016 Transfers (B,C,W/C) (FIM): 4 Gait (FIM): 2 Gait distance (FIM): 5=210-18 ft Gait Assistive Device: FWW PT Plan Problem List Problem List: Activity Tolerance, Functional Strength, Safety, Balance, Gait, Transfer, Bed Mobility, ROM Treatment/Plan Treatment Plan: Continue Plan of Care Treatment Plan: Bed Mobility, Education, Functional Activity [place], Functional Strength, Gait, Safety, Therapeutic Exercise, Transfers Treatment Duration: Sep 28, 2016 Visits Per Week: 11 Safety Risks/Education Patient Education: Transfer Techniques, Correct Positioning, Safety Issues Teaching Recipient: Patient Teaching Methods: Demonstration, Discussion Response to Teaching: Reinforcement Needed Time/GCodes Time In: 1310 Time Out: 1330 Total Billed Treatment Time: 20 Total Billed Treatment 1 visit FA 20 min GODWIN CANDELARIO PT Sep 27, 2016 13:35
--- NOTE | 2016-09-27 14:52 | Progress Note (SOAP) ---
Subjective Subjective/Events-last exam States that he feels the same this AM. States that he is still having coughing. Not really moving around very much. Seating up in chair today. Date seen by provider: Sep 27, 2016 Objective Exam Last Set of Vital Signs Vital Signs Date Time Temp Pulse Resp B/P Pulse Ox O2 Delivery O2 Flow Rate FiO2 09/27/16 12:35 76 09/27/16 12:13 97.6 12 113/55 91 Nasal Cannula 5.00 Capillary Refill : Less Than 3 SecondsLess Than 3 Seconds I&O Intake and Output 09/27/16 00:00 Intake Total 1900 ml Output Total 1375 ml Balance 525 ml Intake Oral 1900 ml Output Urine Total 1375 ml General: Alert, Oriented X3, Cooperative, Mild Distress Lungs: Clear to Auscultation, Normal Air Movement Heart: Regular Rate, Normal S1, Normal S2 Abdomen: Normal Bowel Sounds, Soft, No Tenderness, No Hepatosplenomegaly Extremities: No Tenderness/Swelling, Other (trace edema bilaterally, Javier hose in place) Neuro: Normal Speech, Sensation Intact Psych/Mental Status: Mental Status NL, Mood NL Results/Procedures Lab Laboratory Tests 09/26/16 19:13: Glucometer 209H 09/27/16 04:30: Anion Gap 12, BUN/Creatinine Ratio 32, Basophils # (Auto) 0.0, Basophils (%) ( Auto) 0, Blood Urea Nitrogen 25H, Calcium Level 9.1, Carbon Dioxide Level 26, Chloride Level 104, Creatinine 0.79, Eosinophils # (Auto) 0.0, Eosinophils (%) ( Auto) 1, Estimat Glomerular Filtration Rate > 60, Glucose Level 115H, Hematocrit 30L, Hemoglobin 9.6L, INR Comment 1.5H, Lymphocytes # (Auto) 0.9L, Lymphocytes (%) (Auto) 11L, Mean Corpuscular Hemoglobin 32, Mean Corpuscular Hemoglobin Concent 32, Mean Corpuscular Volume 99, Mean Platelet Volume 10.6H, Monocytes # (Auto) 1.0, Monocytes (%) (Auto) 12, Neutrophils # (Auto) 6.5, Neutrophils (%) (Auto) 77H, Platelet Count 162, Potassium Level 4.1, Prothrombin Time 17.6H, Red Blood Count 3.02L, Red Cell Distribution Width 15.4H , Sodium Level 142, White Blood Count 8.5 Microbiology 09/22/16 MRSA Screen - Final, Complete MRSA not isolated Assessment/Plan Assessment/Plan Plan 76 yo M that was admitted after he fell from his scooter and was found to have Left hip fracture, now POD #4 Plan Left hip fracture s/p ORIF by Ortho now POD #4 - Pain is well controlled, Continue Stool softeners and stimulates - Encouraged up to chair at least TID - Continue IS - Accepted by Inpatient Rehab - Continue Coumadin, INR trending up, not to goal yet CAD with ischemic Cardiomyopathy - Denies chest pain, Stable post surgery COPD with oxygen dependence at night - Currently on oxygen during the day as well - Continue PRN and scheduled breathing treatments - Patient high risk for Post op PNA, Encouraged activity and frequent IS - Continue steroid burst Fe deficiency Anemia - Will give IV iron replacement Severe Debility - patient to inpatient rehab but may need swing bed in the meantime FEN: Heart healthy diet DVT: Lovenox/coumadin Dispo: Swing bed evaluation pending Diagnosis/Problems: Clinical Quality Measures DVT/VTE Risk/Contraindication: Risk Factor Score Per Nursin RFS Level Per Nursing on Admit: 4+=Very High NAE BERMEO MD Sep 27, 2016 14:52
[2016-09-27 16:00] VITALS: BP 132/73
[2016-09-27] MEDS: warFARin 5 MG (COUMADIN) TAB PO SCH (18:08)
[2016-09-27 20:00] VITALS: BP 129/70
[2016-09-27] MEDS: amLODIPine 5 MG (NORVASC) TAB PO SCH (20:27)
[2016-09-28] VITALS: BP 163/75
[2016-09-28 04:00] VITALS: BP 127/60
[2016-09-28] MEDS: KCL 8 MEQ (MICRO K) TABLET PO SCH (06:04)
[2016-09-28] MEDS: predniSONE 20 MG TAB PO SCH (06:04)
[2016-09-28] MEDS: PANTOPRAZOLE 40 MG (PROTONIX) TAB PO SCH (06:05)
[2016-09-28] MEDS: oxyCODONE/APAP 5/325MG (PERCOCET 5) TABLET PO PRN (06:05)
[2016-09-28] MEDS: RT-ALBUTEROL/IPRATROPIUM 3 ML (DUONEB) VIAL INH SCH ×2 (06:37→10:24)
[2016-09-28 06:57] LABS: BASOPHILS % (AUTO) 0 % (0-10); EOSINOPHILS # (AUTO) 0.1 10^3/uL (0.0-0.3); EOSINOPHILS % (AUTO) 2 % (0-10); LYMPHOCYTES # (AUTO) 1.3 X 10^3 (1.0-4.0); LYMPHOCYTES % (AUTO) 17 % (12-44); MEAN CORPUSCULAR HEMOGLOBIN 32 PG (25-34); MEAN CORPUSCULAR HGB CONC 33 G/DL (32-36); MEAN CORPUSCULAR VOLUME 98 FL (80-99); MEAN PLATELET VOLUME 10.1 FL (7.4-10.4); MONOCYTES % (AUTO) 12 % (0-12); NEUTROPHILS # (AUTO) 5.5 X 10^3 (1.8-7.8); NEUTROPHILS % (AUTO) 69 % (42-75); PLATELET COUNT 198 10^3/uL (130-400); RED BLOOD COUNT 3.15 10^6/uL (4.35-5.85)
[2016-09-28 07:20] LABS: ANION GAP 13 MMOL/L (5-14); BLOOD UREA NITROGEN 21 MG/DL (7-18); BUN/CREATININE RATIO 28; CALCIUM 9.1 MG/DL (8.5-10.1); CARBON DIOXIDE 26 MMOL/L (21-32); CHLORIDE 102 MMOL/L (98-107); CREATININE SERUM 0.76 MG/DL (0.60-1.30); GFR ESTIMATED > 60; GLUCOSE 100 MG/DL (70-105); POTASSIUM 3.7 MMOL/L (3.6-5.0); SODIUM 141 MMOL/L (135-145)
[2016-09-28 08:03] VITALS: BP 133/62
--- NOTE | 2016-09-28 08:17 | Diagnostic Imaging Report ---
INDICATION: COPD. TECHNIQUE: Single view chest 4:40 AM. CORRELATION STUDY: 09/27/2016 FINDINGS: Patient is poststernotomy. Heart size enlarged but stable. Vasculature is mildly prominent, less severe from prior study. Overall, low ventilation with atelectasis or infiltrate increasing about the right lung base and perihilar region. Left lung relatively clear. IMPRESSION: 1. Cardiac enlargement with vasculature improved on followup. 2. Increasing atelectasis and/or infiltrate at the right lung base and perihilar region. Dictated by: Dictated on workstation # [id number]
[2016-09-28] MEDS: SENNOSIDES 8.6 MG (SENOKOT) TAB PO SCH (09:00)
[2016-09-28] MEDS: meTOprolol TARTRATE 50 MG (LOPRESSOR) TAB PO SCH (09:00)
[2016-09-28] MEDS: DIGOXIN 0.125 MG (LANOXIN) TAB PO SCH (09:00)
[2016-09-28] MEDS: AMIODARONE 200 MG (CORDARONE) TAB PO SCH (09:00)
[2016-09-28] MEDS: FUROSEMIDE 40 MG (LASIX) TAB PO SCH (09:00)
[2016-09-28] MEDS: HYDROCHLOROTHIAZIDE 25 MG (HCTZ) TAB PO SCH (09:00)
[2016-09-28] MEDS: LOSARTAN 50 MG (COZAAR) TAB PO SCH (09:00)
--- NOTE | 2016-09-28 09:07 | Physical Therapy Daily Note ---
PT Daily Note-Current Subjective Patient in bed pre tx, agrees to PT, he states that he doesnt really want to but he will anyway. Patient states he has pain of 8/10 in left hip. Appearance Patient in recliner post tx with nurse call, kymberly, in room. Legs elevated. Mental Status Patient Orientation: Person, Place, Situation Attachments: Oxygen Transfers Functional [place] Measure 0=Not Assessed/NA 4=Minimal Assistance 1=Total Assistance 5=Supervision or Setup 2=Maximal Assistance 6=Modified [place] 3=Moderate Assistance 7=Complete IndependenceIRFPAI Quality Coding Scale 6 Independent with activity with or without an assistive device 5 Patient requires set up or clean up by helper. Patient completes activity by themselves 4 Supervision or touching assist (CGA). [place] provide cues , steadying assist 3 The helper provides less than half the effort to complete the activity 2 The helper provides more than half the effort to complete the activity 1 Dependent. The helper does all the effort to complete an activity 7 Patient refused to complete or attempt activity 9 The patient did not perform the activity before the current illness or injury 88 Not attempted due to Medical conditions or safety concerns Transfers (B, C, W/C) (FIM): 3 Scootin Rollin Supine to/from Sit: 3 Sit to/from Stand: 4 Bed to/from Chair: 3 Patient needs assist with both legs getting to the edge of the bed, min assist for sit to stand and mod assist to transfer using a rolling walker, he tends to lean to the right side Gait Training Gait (FIM): 1 Distance: 2' Gait Level of Assist: 3 Gait Persons Needed: 2 Gait Assistive Device: FWW antalgic, patient has a lot of difficulty stepping with either leg, tends to lean over the walker and to the right side Exercises Seated Therapy Exercises: Ankle pumps, Long arc quads, Hip flexion, Hamstring Curls Seated Reps: 20 Treatments bed mobility and transfers, ambulation, functional strengthening Assessment Current Status: Fair Progress patient did make some progress with mobility, he still has a lot of difficulty breathing during minimal activity PT Group Home Goals Group Home Goals PT Group Home Goals Time Frame: Sep 28, 2016 Transfers (B,C,W/C) (FIM): 4 Gait (FIM): 2 Gait distance (FIM): 3=071-16 ft Gait Assistive Device: FWW PT Plan Problem List Problem List: Activity Tolerance, Functional Strength, Safety, Balance, Gait, Transfer, Bed Mobility, ROM Treatment/Plan Treatment Plan: Continue Plan of Care Treatment Plan: Bed Mobility, Education, Functional Activity [place], Functional Strength, Gait, Safety, Therapeutic Exercise, Transfers Treatment Duration: Sep 28, 2016 Visits Per Week: 11 Safety Risks/Education Patient Education: Gait Training, Transfer Techniques, Safety Issues Teaching Recipient: Patient Teaching Methods: Demonstration, Discussion Response to Teaching: Reinforcement Needed Time/GCodes Time In: 845 Time Out: 900 Total Billed Treatment Time: 15 Total Billed Treatment 1 visit FA 15 min GODWIN CANDELARIO PT Sep 28, 2016 09:07
--- NOTE | 2016-09-28 12:13 | Progress Note (SOAP) ---
Subjective Subjective/Events-last exam Patient states that he is still having significant shortness of breath. states that he has not had a bowel movement in several days. Tolerating PO diet. Still needing significant help with transfers. Date seen by provider: Sep 28, 2016 Objective Exam Last Set of Vital Signs Vital Signs Date Time Temp Pulse Resp B/P Pulse Ox O2 Delivery O2 Flow Rate FiO2 09/28/16 10:26 95 4.00 09/28/16 08:03 97.5 78 12 133/62 Nasal Cannula Capillary Refill : Less Than 3 SecondsLess Than 3 Seconds I&O Intake and Output 09/28/16 00:00 Intake Total 2750 ml Output Total 2400 ml Balance 350 ml Intake Oral 2750 ml Output Urine Total 2400 ml General: Alert, Oriented X3, Cooperative, Mild Distress (with minimal activity) Lungs: Other (+ diffuse wheezing with some basilar crackles) Heart: Regular Rate, Normal S1, Normal S2 Abdomen: Normal Bowel Sounds, Soft, No Tenderness Extremities: No Tenderness/Swelling, Other (toni hose present bilaterally) Skin: No Rashes Neuro: Normal Speech, Cranial Nerves 3-12 NL Psych/Mental Status: Mental Status NL, Mood NL Results/Procedures Lab Laboratory Tests 09/28/16 06:15: Anion Gap 13, BUN/Creatinine Ratio 28, Basophils # (Auto) 0.0, Basophils (%) ( Auto) 0, Blood Urea Nitrogen 21H, Calcium Level 9.1, Carbon Dioxide Level 26, Chloride Level 102, Creatinine 0.76, Eosinophils # (Auto) 0.1, Eosinophils (%) ( Auto) 2, Estimat Glomerular Filtration Rate > 60, Glucose Level 100, Hematocrit 31L, Hemoglobin 10.0L, Lymphocytes # (Auto) 1.3, Lymphocytes (%) (Auto) 17, Mean Corpuscular Hemoglobin 32, Mean Corpuscular Hemoglobin Concent 33, Mean Corpuscular Volume 98, Mean Platelet Volume 10.1, Monocytes # (Auto) 1.0, Monocytes (%) (Auto) 12, Neutrophils # (Auto) 5.5, Neutrophils (%) (Auto) 69, Platelet Count 198, Potassium Level 3.7, Red Blood Count 3.15L, Red Cell Distribution Width 15.0H, Sodium Level 141, White Blood Count 8.0 Microbiology 09/22/16 MRSA Screen - Final, Complete MRSA not isolated Assessment/Plan Assessment/Plan Plan 76 yo M that was admitted after he fell from his scooter and was found to have Left hip fracture, now POD #5 Plan Left hip fracture s/p ORIF by Ortho now POD #5 - Pain is well controlled, Continue Stool softeners and stimulates - Encouraged up to chair at least TID - Continue IS - Accepted by Inpatient Rehab but not able to complete 3 hrs of therapy per day - Continue Coumadin, INR trending up, not to goal yet - [place] D/c, use bedside commode, Started flomax Constipation - Started Colace BID and Miralax TID until BM then will titrate down - Good bowel signs - Encourage activity CAD with ischemic Cardiomyopathy - Denies chest pain, Stable post surgery COPD with oxygen dependence at night - Currently on oxygen during the day as well - Continue PRN and scheduled breathing treatments - Patient high risk for Post op PNA, Encouraged activity and frequent IS - Continue steroid burst - Will start Levaquin due to developing consolidation seen on CXR Fe deficiency Anemia: hgb stabilized - Will give IV iron replacement Severe Debility - patient to inpatient rehab but may need swing bed in the meantime FEN: Heart healthy diet DVT: Lovenox/coumadin Dispo: Swing bed evaluation pending Diagnosis/Problems: Clinical Quality Measures DVT/VTE Risk/Contraindication: Risk Factor Score Per Nursin RFS Level Per Nursing on Admit: 4+=Very High NAE BERMEO MD Sep 28, 2016 12:12
[2016-09-28 12:16] VITALS: BP 111/64
[2016-09-28] MEDS ORDERED: IRON SUCROSE INJECTION 300 MG in NS (IVPB) 250 ML IV NR (12:38)
[2016-09-28] MEDS ORDERED: LEVOFLOXACIN 750 MG/150 ML IV 150 ML IV SCH (13:00)
[2016-09-28] MEDS ORDERED: POLYETHYLENE GLYCOL 17 GM (MIRALAX) PACK PO ONE (13:00)
[2016-09-28] MEDS ORDERED: POLYETHYLENE GLYCOL 17 GM (MIRALAX) PACK PO SCH (13:00)
[2016-09-28] MEDS ORDERED: ALFUZOSIN HCL 10 MG TAB (UROXATRAL) PO SCH (18:00)
[2016-09-28] MEDS ORDERED: DOCUSATE SODIUM 100 MG (COLACE) CAP PO SCH (21:00)
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
[2016-10-04] MEDS ORDERED: TRAM50TA2 PO (11:40)
[2016-10-04] MEDS ORDERED: WARF5TAB PO (11:40)
[2016-10-04] MEDS ORDERED: SENN-140 PO (11:40)
[2016-10-04] MEDS ORDERED: LOSA50TA36 PO (11:40)
[2016-10-04] MEDS ORDERED: METO50TA2 PO (11:40)
[2016-10-04] MEDS ORDERED: OXYC-471 PO (11:40)
[2016-10-04] MEDS ORDERED: AMIO200T2 PO (11:40)
[2016-10-04] MEDS ORDERED: POLY17PO23 PO (11:40)
[2016-10-04] MEDS ORDERED: TAMS0.4C98 PO (11:40)
[2016-10-04] MEDS ORDERED: IPRA3AMP INH (11:46)
== END 2016-09-28 12:38 | disposition swing bed (61) | DRG 481 ==
LOC: EDUNIT# 15:56 → ER 15:56 → 4TH 18:44 → ICU 09-23 16:04 → 4TH 09-24 14:11
PROVIDERS: ADMIT Internal Medicine; ATTEND Internal Medicine
PROC: 0QS706Z Reposition Left Upper Femur with Intramedullary Internal Fixation Device, Open Approach (ICD-10-PCS; principal; 2016-09-23 11:06)
DX: S72.142A Displaced intertrochanteric fracture of left femur, initial encounter for closed fracture (principal); J98.11 Atelectasis; J81.1 Chronic pulmonary edema; D50.9 Iron deficiency anemia, unspecified; J44.9 Chronic obstructive pulmonary disease, unspecified; J45.909 Unspecified asthma, uncomplicated; I25.5 Ischemic cardiomyopathy; I48.91 Unspecified atrial fibrillation; G47.30 Sleep apnea, unspecified; I25.10 Atherosclerotic heart disease of native coronary artery without angina pectoris; I25.2 Old myocardial infarction; E87.6 Hypokalemia; F03.90 Unspecified dementia, unspecified severity, without behavioral disturbance, psychotic disturbance, mood disturbance, and anxiety; G62.9 Polyneuropathy, unspecified; K21.9 Gastro-esophageal reflux disease without esophagitis; K59.03 Drug induced constipation; R53.81 Other malaise; Z99.81 Dependence on supplemental oxygen; Z95.810 Presence of automatic (implantable) cardiac defibrillator; Z95.1 Presence of aortocoronary bypass graft; Z95.5 Presence of coronary angioplasty implant and graft; Z79.01 Long term (current) use of anticoagulants; Z87.891 Personal history of nicotine dependence; V00.891A Fall from other pedestrian conveyance, initial encounter; T40.2X5A Adverse effect of other opioids, initial encounter
CPT/HCPCS: 36415; 71010; 72170; 73502; 80048; 80053; 82728; 82962; 83540; 83735; 84100; 85025; 85027; 85610; 85730; 86850; 86900; 86901; 87081; 93005; 94640; 94664; 94760; 96365; 96375

== ENCOUNTER 2016-09-28 11:54 | Inpatient (IN) | payer MEDICARE, MEDICAID ==
[~2016-09-28] VITALS: Ht 167.6 cm; Wt 94.1 kg
[~2016-09-28 11:54] MED LIST changes: +AMIO200T2 PO; +FLT22013 IH; +NF-MEXI150 PO
[2016-09-28] MEDS ORDERED: CATHETER FLUSH 10 ML SYR IV PRN (12:45)
[2016-09-28] MEDS ORDERED: guaiFENesin/DM (ROBITUSSIN DM) 10 ML UDC PO PRN (12:45)
[2016-09-28] MEDS ORDERED: MILK OF MAGNESIA 400 MG/5 ML 30 ML UDC PO PRN (12:45)
[2016-09-28] MEDS ORDERED: BISACODYL 5 MG (DULCOLAX) TABLET PO PRN (12:45)
[2016-09-28] MEDS ORDERED: LEVOFLOXACIN 750 MG/150 ML IV 150 ML IV SCH (13:00)
[2016-09-28] MEDS ORDERED: RT-ALBUTEROL/IPRATROPIUM 3 ML (DUONEB) VIAL INH PRN (13:30)
[2016-09-28] MEDS ORDERED: IRON SUCROSE INJECTION 300 MG in NS (IVPB) 250 ML IV NR (13:59)
--- NOTE | 2016-09-28 14:45 | Occupational Therapy Eval ---
OT Evaluation-General/PLF Medical Diagnosis Admission Date Sep 28, 2016 at 12:38 Medical Diagnosis: Left hip fx, s/p ORIF Onset Date: Sep 25, 2016 Therapy Diagnosis Therapy Diagnosis: Weakness Height/Weight Height (Feet): 5 Height (Inches): 6.00 Weight (Pounds): 207 Weight (Ounces): 6.4 Weight Bear Status Weight Bearing Restriction: Weight Bearing/Tolerated Referral Physician: Dr. Rockwell Referral Reason: Activity Tolerance, Self Care, Evaluation/Treatment, Strengthening/ROM Medical History Pertinent Medical History: Atrial Fib, Arthritis, CABG, CAD, COPD, Dementia, GERD, [place], Neuropathy Current History Pt. was ambulating outside. Was knocked over by [employer]. Lives at [facility] with his spouse. Reviewed History: Yes Social History Home: Apartment Current Living Status: Spouse Entry Into Home: Level Entry ADL-Prior Level of Function ADL PLOF Comments Pt. was independent with daily tasks. Has someone that drives and cleans for him and his spouse. DME/Equipment: Bath Chair, Grab Bars, Tub/Shower DME/Equipment Comments Pt. uses a walker. Drive Self: No OT Current Status Subjective No pain reported at this time. Appearance Pt. is in bed. Nursing had just helped him back to bed after toileting on [facility]. Mental Status/Objective Patient Orientation: Confused Spouse answered most questions for pt. When he did answer them, occasionally she would correct him, as he had stated it wrong. Current Hand Dominance: Right Upper Extremity ROM WFL Upper Extremity Strength 5/5 bilateral UE throughout. ADL-Treatment Functional [place] Measure 0=Not Assessed/NA 4=Minimal Assistance 1=Total Assistance 5=Supervision or Setup 2=Maximal Assistance 6=Modified [place] 3=Moderate Assistance 7=Complete IndependenceIRFPAI Quality Coding Scale 6 Independent with activity with or without an assistive device 5 Patient requires set up or clean up by helper. Patient completes activity by themselves 4 Supervision or touching assist (CGA). [place] provide cues , steadying assist 3 The helper provides less than half the effort to complete the activity 2 The helper provides more than half the effort to complete the activity 1 Dependent. The helper does all the effort to complete an activity 7 Patient refused to complete or attempt activity 9 The patient did not perform the activity before the current illness or injury 88 Not attempted due to Medical conditions or safety concerns Pt. had just returned to bed after toileting. Nursing reported that pt. was dependent for toileting. Spouse states that she has brought lots of clothing items in for pt. Educated that it might be more beneficial to wear pants when has gained a little more strength, and is more mobile, such as for toileting. Pt. is able to participate in UE assessment with therapist. Note that he demonstrates 5/5 strength throughout in bilateral UE. Pt. reports that he has been feeding himself. Spouse and nursing both state that pt. is somewhat "fearful" when up during transfer. They report what sounds like retropulsion during transfers, in which pt. pushes away. Pt. smiles throughout evaluation, but does not verbalize much, as his spouse does speak for him. Pt.'s spouse states that her goals are for him to return home. Pt. does indicate that this is his goal as well. All needs are met in room. Call light and phone within reach, bed rails up. Education OT Patient Education: Correct positioning, Instructions to caregiver, Progress toward Goal/Update tx plan, Purpose of tx/functional activities, Reviewed precautions, Rehab process Teaching Recipient: Patient, Significant Other Teaching Methods: Demonstration, Discussion Response to Teaching: Verbalize Understanding, Return Demonstration OT Short Term Goals Short Term Goals Time Frame: Oct 05, 2016 Eating(FIM): 5 Grooming(FIM): 4 Bathing(FIM): 3 Upper Body Dressing(FIM): 5 Lower Body Dressing(FIM): 3 Toileting(FIM): 3 Transfers (B,C,W/C) (FIM): 4 Toilet/Commode Transfer(FIM): 4 Additional Short Term Goals: 1-Demonstrate ADL Tasks, 2-Verbalize Understanding , 3-ImproveStrength/[place] 1=Demonstrate adherence to instructed precautions during ADL tasks. 2=Patient will verbalize/demonstrate understanding of assistive devices/ modifications for ADL. 3=Patient will improve strength/tolerance for activity to enable patient to perform ADL's. OT Data Scientist Goals Data Scientist Goals Time Frame: Oct 12, 2016 Eating (FIM): 6 Eating (QC): 6 Groomin Oral Hygiene (QC): 5 Bathing(FIM): 4 Upper Body Dressing(FIM): 5 Lower Body Dressing(FIM): 5 Toileting(FIM): 5 Toileting Hygiene (QC): 5 Transfers (B,C,W/C) (FIM): 5 Toilet/Commode Transfer(FIM): 5 Toilet/Commode Transfer (QC): 5 Additional Goals: 1-Demonstrate ADL Tasks, 2-Verbalize Understanding, 3- ImproveStrength/[place] 1=Demonstrate adherence to instructed precautions during ADL tasks. 2=Patient will verbalize/demonstrate understanding of assistive devices/ modifications for ADL. 3=Patient will improve strength/tolerance for activity to enable patient to perform ADL's. OT Education/Plan Problem List/Assessment Assessment: Decreased Activ Tolerance, Decreased Safety Aware, Decreased UE Strength, Dependent Transfers, Impaired Bed Mobility, Impaired Funct Balance, Impaired I ADL's, Impaired Self-Care Skills, Restricted Funct UE ROM Discharge Recommendations Plan/Recommendations: Continue POC Therapy D/C Recommendations: Home w/ Family Support, Occupational Therapy Home Care, Scheduled Assistance Equpiment Recommendations-D/C: Extended Bath Bench, Hip Kit Barriers to Progress Cognition, fear, pain. Patient/Family Goals Pt. and spouse state that their goal is for him to return home. Treatment Plan/Plan of Care Treatment,Training & Education: Yes Patient would benefit from OT for education, treatment and training to promote independence in ADL's, mobility, safety and/or upper extremity function for ADL' s. Plan of Care: ADL Retraining, Caregiver Training, Functional Mobility Treatment Duration: Oct 12, 2016 # of days/week 5-6 Visits Per Week: 5-6 Agreement: Yes Rehab Potential: Fair Time/GCodes Start Time: 13:00 Stop Time: 13:15 Total Time Billed (hr/min): 15 Billed Treatment Time 1, ALFREDO Jasso OT Sep 28, 2016 14:45
[2016-09-28] MEDS: POLYETHYLENE GLYCOL 17 GM (MIRALAX) PACK PO SCH ×2 (15:14→20:51)
--- NOTE | 2016-09-28 15:17 | Physical Therapy Evaluation ---
PT Evaluation-General Medical Diagnosis Admission Date Sep 28, 2016 at 12:38 Medical Diagnosis: Left hip fx, s/p ORIF Onset Date: Sep 25, 2016 Therapy Diagnosis Therapy Diagnosis: weakness; abn gait Height/Weight Height (Feet): 5 Height (Inches): 6.00 Weight (Pounds): 207 Weight (Ounces): 6.4 Precautions Precautions/Isolations: Standard Precautions Weight Bear Status Weight Bearing Restriction: Weight Bearing/Tolerated Location Restriction: L LE Referral Physician: Dr. Rockwell Reason for Referral: Evaluation/Treatment Medical History Pertinent Medical History: Atrial Fib, Arthritis, CABG, CAD, COPD, Dementia, GERD, [place], Neuropathy Current History Post repair of left hip fracture; transferred to [facility] status for continued medical management as well as for therapy services to address functional mobility progression. Reviewed History: Yes Social History Home: Apartment Current Living Status: Spouse Entry Into Home: Level Entry Prior/Core FIM Prior Level of Function Functional [place] Measure 0=Not Assessed/NA 4=Minimal Assistance 1=Total Assistance 5=Supervision or Setup 2=Maximal Assistance 6=Modified [place] 3=Moderate Assistance 7=Complete [place] Bed Mobility: 7 Transfers (B,C,W/C) (FIM): 6 Gait: 5 (household) Locomotion: 6 (scooter outdoor surfaces) Wheelchair Mobility: 6 Pt was ambulatory in his apartment with FWW; uses a scooter outside of the home. PT Evaluation-Current Subjective Pt agreeable and voices that he needs to get stronger. Pain Numeric Pain Scale: 5-Moderate Pain Location: Left Location Body Site: Hip Pain Description: Ache Comment: with standing and transfers Pt/Family Goals Pt's goals are to return home as before. Objective Patient Orientation: Person, Place, Time, Situation Problem Solving: Fair Attachments: Oxygen (in situ during and post treatmeht) ROM/Strength ROM Lower Extremities WFL Strenght Lower Extremities right LE grossly 4-/5; left LE grossly 3-/5 Integumentary/Posture Integumentary refer to nursing notes. Bowel Incontinence: No Posture rounded shoulders in standing. Neuromuscular (Tone, Coordination, Reflexes) intact and functional Sensory Vision: Wears Glasses Hearing: Functional Hand Dominance: Right Sensation Right Lower Extremit: Intact Sensation Left Lower Extremity: Intact Transfers Functional [place] Measure 0=Not Assessed/NA 4=Minimal Assistance 1=Total Assistance 5=Supervision or Setup 2=Maximal Assistance 6=Modified [place] 3=Moderate Assistance 7=Complete [place] Transfers (B, C, W/C) (FIM): 2 Scootin Rollin Supine to/from Sit: 3 (asssit with both legs and trunk to sit up EOB) Sit to/from Stand: 3 (mod assist to come to a stand. ) bed t/f WC(FIM only if WC use): 3 (mod assist to assist with maintaining standing. ) Sit to Lying (QC): 3 Lying to Sitting/Side of Bed(Q: 3 Sit to Stand (QC): 3 Chair/[id number]-Kbqlh Xfer(QC): 3 Pt requires heavy cues and assist with transfers at this time. Becomes SOA quickly but recovers quickly as well. Pt needs cues for sequencing. SPT x 2 with mod assist; used fWW once and dance style once. Sit to inspector fabric / / bars with min assist and cues to sequence Gait Does the Patient Walk?: Yes Mode of Locomotion: Both Anticipated Mode of Locomotion: Walk Gait (FIM): 1 Distance: steps only in // bars Walk 50 ft with 2 Turns(QC): 88 (unable to ambulate ) Walk 150 ft (QC): 88 Comments/Gait Description Pt took 2-3 steps in // bars, short and small steps with close CGA x 2 reps. Wheelchair Training Wheel 50 ft with 2 turns (QC): 88 Wheel 150 ft (QC): 88 Balance Sitting Static: Good Sitting Dynamic: Fair Standing Static: Fair Standing Dynamic: Fair Treatment Functional transfers; progression of gait in // bars; bed mobility with transfer. Assessment/Needs Post fall from scooter and sustained left hip fracture that has been repaired. He will benefit from skilled PT to work on functional transfers and mobility to allow him to return home as before. Pt has B LE weakness, balance deficits, transfer deficits, unable to ambulate and limited functional act tolerance. His presentation is changing at this time as he continues to require medical management . He will benefit from skilled PT services and has potential to make functional gains. Rehab Potential: Good PT Short Term Goals Short Term Goals Time Frame: Oct 03, 2016 Transfers (B,C,W/C) (FIM): 4 Gait (FIM): 2 Distance (FIM): 7=173-13 ft Gait Assistive Device: FWW PT Shelter Goals [employer] Goals PT Shelter Goals Time Frame: Oct 13, 2016 Transfers (B,C,W/C) (FIM): 5 Sit to Lying (QC): 5 Lying-Sitting on Side/Bed(QC): 5 Sit to Stand (QC): 5 Chair/[id number]-Ylnrv Xfer(QC): 5 Does the Patient Walk: Yes Gait (FIM): 4 Gait distance (FIM): 5=650-60 ft Walk 50ft with 2 Turns (QC): 4 Walk 150 ft (QC): 88 Gait Assistive Device: FWW Does the Pt use WC or Scooter?: Yes Wheelchair (FIM): 88 (NT) PT Plan Problem List Problem List: Activity Tolerance, Functional Strength, Safety, Balance, Gait, Transfer, Bed Mobility Treatment/Plan Treatment Plan: Continue Plan of Care Treatment Plan: Bed Mobility, Education, Functional Activity [place], Functional Strength, Gait, Safety, Therapeutic Exercise, Transfers Treatment Duration: Oct 13, 2016 # of days/week 5-6 Visits Per Week: 11 Pt/Family Agrees w/Plan: Yes Safety Risks/Education Patient Education: Transfer Techniques, Safety Issues Teaching Recipient: Patient Teaching Methods: Demonstration, Discussion Response to Teaching: Return Demonstration, Reinforcement Needed Time/GCodes Time In: 1336 Time Out: 1408 Total Billed Treatment Time: 32 Total Billed Treatment visit EVM 15 FA 17 AYLA PEREZ PT Sep 28, 2016 15:17
[2016-09-28] MEDS: RT-ALBUTEROL/IPRATROPIUM 3 ML (DUONEB) VIAL INH SCH ×2 (15:38→20:39)
[2016-09-28 17:43] VITALS: BP 122/68
[2016-09-28] MEDS: ALFUZOSIN HCL 10 MG TAB (UROXATRAL) PO SCH (18:11)
[2016-09-28] MEDS: warFARin 5 MG (COUMADIN) TAB PO SCH (18:11)
[2016-09-28] MEDS: amLODIPine 5 MG (NORVASC) TAB PO SCH (20:50)
[2016-09-28] MEDS: meTOprolol TARTRATE 50 MG (LOPRESSOR) TAB PO SCH (20:51)
[2016-09-28] MEDS: DOCUSATE SODIUM 100 MG (COLACE) CAP PO SCH (20:51)
[2016-09-28] MEDS: SENNOSIDES 8.6 MG (SENOKOT) TAB PO SCH (20:51)
[2016-09-28] MEDS: oxyCODONE/APAP 5/325MG (PERCOCET 5) TABLET PO PRN (23:56)
[2016-09-29] MEDS: PANTOPRAZOLE 40 MG (PROTONIX) TAB PO SCH (06:14)
[2016-09-29] MEDS: KCL 8 MEQ (MICRO K) TABLET PO SCH (06:14)
[2016-09-29] MEDS: predniSONE 20 MG TAB PO SCH (06:14)
[2016-09-29] MEDS ORDERED: predniSONE 20 MG TAB PO SCH (07:00)
[2016-09-29] MEDS: RT-ALBUTEROL/IPRATROPIUM 3 ML (DUONEB) VIAL INH SCH ×4 (07:14→18:52)
[2016-09-29 08:00] VITALS: BP 131/58
[2016-09-29] MEDS: DOCUSATE SODIUM 100 MG (COLACE) CAP PO SCH ×2 (08:31→20:22)
[2016-09-29] MEDS: DIGOXIN 0.125 MG (LANOXIN) TAB PO SCH (08:31)
[2016-09-29] MEDS: meTOprolol TARTRATE 50 MG (LOPRESSOR) TAB PO SCH ×2 (08:31→20:23)
[2016-09-29] MEDS: SENNOSIDES 8.6 MG (SENOKOT) TAB PO SCH ×2 (08:32→20:22)
[2016-09-29] MEDS: HYDROCHLOROTHIAZIDE 25 MG (HCTZ) TAB PO SCH (08:33)
[2016-09-29] MEDS: LOSARTAN 50 MG (COZAAR) TAB PO SCH (08:33)
[2016-09-29] MEDS: AMIODARONE 200 MG (CORDARONE) TAB PO SCH (08:33)
[2016-09-29] MEDS: FUROSEMIDE 40 MG (LASIX) TAB PO SCH (08:33)
[2016-09-29] MEDS: POLYETHYLENE GLYCOL 17 GM (MIRALAX) PACK PO SCH ×3 (08:33→20:22)
--- NOTE | 2016-09-29 11:01 | ST Cognitive Linguistic Eval ---
Speech Evaluation-General Medical Diagnosis Left hip fx, s/p ORIF Onset Date: Sep 25, 2016 Therapy Diagnosis Therapy Diagnosis: Moderate Cognitive Impairment Precautions Precautions/Isolations: Fall Prevention, Standard Precautions Referral Referring Physician: Dr. Maria C Rockwell Reason for Referral: Evaluation/Treatment Cognitive Assessment Medical History Pertinent Medical History: Atrial Fib, Arthritis, CABG, CAD, COPD, Dementia, GERD, [place], Neuropathy Reviewed History: Yes Social History Current Living Status: Spouse Speech PLF-Current Status Prior Level of Function The patient denied prior challenges with speech, language, and cognition, however, the clinician questions the patient's reliability regarding his past medical history. Subjective The patient was recently admitted to [facility] following a left hip fracture with repair. The patient greeted the clinician appropriately and agreed to participate in the cognitive evaluation on this date. Language Eval: Auditory Comprehends Simple Yes/No Ques: Mild (The patient was able to reply accurately to simple yes/no, however, demonstrated reduced accuracy with complex yes/no questions.) Indent/Objects Multiple Morales: Functional Ident/Pics in Multiple Morales: Mild (The patient was able to identify two of three black and white photographs provided.) Follows 1-Step Commands: Mild Follows Complex Directions: Moderate Follows General Conversations: Moderate (Frequent repetition and redirection to conversational topics were provided by the clinician.) Language Eval: Verbal Language Completes Spontaneous Greeting: Functional Produces Auto, Serial Info: Mild Imitates Simple Words/Phrases: Moderate (The patient was able to repeat single words, however, was unable to repeat short phrases (immediately).) Word Finding: Moderate Requests Basic Needs: Mild States Basic Personal Info: Mild Expresses Complex Ideas: Moderate Cognitive Patient Orientation The patient was oriented to month, year, place, and city. The patient was unable to state the date or day of week. Objective Cognitive Domain Attention: Moderate Memory: Severe Problem Solving: Moderate Executive Functions: Moderate Clock Drawing Severity Rating: Moderate Objective Formal/Standardized Tests Arpan Cognitive Assessment (MoCA) Version One Oral Motor/Speech Production The patient demonstrated mildly imprecise articulation (slurred) speech. Impression The patient demonstrated moderate cognitive impairment in the areas of executive functioning, memory (immediate and delayed recall), attention, and language. The patient demonstrated a score of +12/30 on the MoCA. Speech Short Term Goals Short Term Goals Short Term Goals 1. The patient will recall and demonstrate two functional memory strategies for use at home. 2. The patient will accurately sequence simple events contained within his environment. 3. The patient will demonstrate 90% accuracy with basic safety problem solving. Time Frame-STG: Two Weeks Speech Chcf Goals Chcf Goals 1. The patient will demonstrate improved cognitive linguistic skills for increased function and safety with ADL's. Time Frame: One Month Speech-Plan Treatment Plan Speech Therapy Treatment Plan: Continue Plan of Care Continue skilled speech services to target sequencing, problem solving, and memory. Treatment Duration: Oct 27, 2016 # of days/week One to Three Visits Per Week: One to Three Minutes/Day (M-F): 20 Rehab Potential: Guarded Safety Risks/Education Teaching Recipient: Patient Teaching Methods: Discussion Response to Teaching: Verbalize Understanding, Reinforcement Needed Education Topics Provided: Plan of Care Time Speech Therapy Time In: 09:45 Speech Therapy Time Out: 10:00 Total Billed Time: 15 Billed Treatment Time 1, DORITA ASHER Sep 29, 2016 11:01
--- NOTE | 2016-09-29 11:23 | Physical Therapy Daily Note ---
PT Daily Note-Current Subjective Agrees to PT. "I'm tired of this hip". Mental Status Patient Orientation: Person, Place, Time, Situation Transfers Functional [facility] Measure 0=Not Assessed/NA 4=Minimal Assistance 1=Total Assistance 5=Supervision or Setup 2=Maximal Assistance 6=Modified [facility] 3=Moderate Assistance 7=Complete IndependenceIRFPAI Quality Coding Scale 6 Independent with activity with or without an assistive device 5 Patient requires set up or clean up by helper. Patient completes activity by themselves 4 Supervision or touching assist (CGA). [place] provide cues , steadying assist 3 The helper provides less than half the effort to complete the activity 2 The helper provides more than half the effort to complete the activity 1 Dependent. The helper does all the effort to complete an activity 7 Patient refused to complete or attempt activity 9 The patient did not perform the activity before the current illness or injury 88 Not attempted due to Medical conditions or safety concerns Transfers (B, C, W/C) (FIM): 3 Roll Left to Right (QC): 3 Supine to/from Sit: 3 (mod assist to assist with trunk and left LE) Sit to/from Stand: 4 (CGA with skilled cues to sequence) Sit to Stand (QC): 4 Chair/Gyp-vm-Hisym Xfer(QC): 4 SPT x 1 with FWW with min assist and cues for sequencing and safety. Sit to stand x 3 in // bars with min assist. Weight Bearing Weight Bearing Restriction: Weight Bearing/Tolerated Location Restriction: L LE Gait Training Gait in // bars 5ft x 3 reps with close CGA; short step length and foot flat steps. Unsteady and fatigued with 3rd trial. Treatments transfer and gait in // bars. Pt with OT post treatment. Assessment Current Status: Good Progress Mobility and transfers are improving. Pt making functional gains towards est goals. PT Short Term Goals Short Term Goals Time Frame: Oct 03, 2016 Transfers (B,C,W/C) (FIM): 4 Gait (FIM): 2 Distance (FIM): 8=610-20 ft Gait Assistive Device: FWW PT Child Support Specialist Goals Child Support Specialist Goals PT Child Support Specialist Goals Time Frame: Oct 13, 2016 Transfers (B,C,W/C) (FIM): 5 Sit to Lying (QC): 5 Lying-Sitting on Side/Bed(QC): 5 Sit to Stand (QC): 5 Rollin Chair/Woe-fg-Dedmy Xfer(QC): 5 Does the Patient Walk: Yes Gait (FIM): 4 Gait distance (FIM): 6=506-79 ft Walk 50ft with 2 Turns (QC): 4 Walk 150 ft (QC): 88 Gait Assistive Device: FWW Does the Pt use WC or Scooter?: Yes Wheelchair (FIM): 88 (NT) PT Plan Problem List Problem List: Activity Tolerance, Functional Strength, Safety, Gait, Transfer, Bed Mobility Treatment/Plan Treatment Plan: Continue Plan of Care Treatment Plan: Bed Mobility, Education, Functional Activity Mckin[place], Functional Strength, Gait, Safety, Therapeutic Exercise, Transfers Treatment Duration: Oct 13, 2016 Visits Per Week: 11 Safety Risks/Education Patient Education: Transfer Techniques, Safety Issues Teaching Recipient: Patient Teaching Methods: Demonstration, Discussion Response to Teaching: Reinforcement Needed Time/GCodes Time In: 1034 Time Out: 1102 Total Billed Treatment Time: 28 Total Billed Treatment visit FA 28 AYLA PEREZ PT Sep 29, 2016 11:23
--- NOTE | 2016-09-29 11:55 | Occupational Ther Daily Note ---
OT Current Status-Daily Note Subjective Pt seen in gym after PT. Agreeable to OT. No pain mentioned Appearance Alert, cooperative Mental Status/Objective Functional [place] Measure 0=Not Assessed/NA 4=Minimal Assistance 1=Total Assistance 5=Supervision or Setup 2=Maximal Assistance 6=Modified [place] 3=Moderate Assistance 7=Complete [place] ADL-Treatment Functional [place] Measure 0=Not Assessed/NA 4=Minimal Assistance 1=Total Assistance 5=Supervision or Setup 2=Maximal Assistance 6=Modified [place] 3=Moderate Assistance 7=Complete IndependenceIRFPAI Quality Coding Scale 6 Independent with activity with or without an assistive device 5 Patient requires set up or clean up by helper. Patient completes activity by themselves 4 Supervision or touching assist (CGA). [place] provide cues , steadying assist 3 The helper provides less than half the effort to complete the activity 2 The helper provides more than half the effort to complete the activity 1 Dependent. The helper does all the effort to complete an activity 7 Patient refused to complete or attempt activity 9 The patient did not perform the activity before the current illness or injury 88 Not attempted due to Medical conditions or safety concerns Other Treatment In gym, pt did 6 minutes bilat UE exercise on arm bike set at 10W resistance. He said that he uses this device when he goes to pulmonary rehab and 3 to 6 minutes is his usual length of exercise. He was transported back to room per w/ and positioned for transfer to recliner. Pt transferred from w/ to recliner with mod assist but with 2 people for safety. Pt did stand pivot transfer mod assist moving to R side, taking tiny steps. Cues for safety to sit back down in recliner - he tended to "plop" into chair. legs elevated, pillow under lower legs to float heels. Discussed showering with his nurse and setup shower chair. Also shared information on how best to transfer him to the shower chair (to be bathed in shower room - shower in his room not accessible to him due to decreased transfer skills). Also changed out BSC to one that is wider, since Kendall catheter has been removed. All needs met. Education OT Patient Education: Exercise program, Instructions to caregiver, Progress toward Goal/Update tx plan, Purpose of tx/functional activities, Transfer techniques, Use of adapted equipment Teaching Recipient: Patient Teaching Methods: Discussion Response to Teaching: Verbalize Understanding, Return Demonstration, Reinforcement Needed OT Short Term Goals Short Term Goals Time Frame: Oct 05, 2016 Eating(FIM): 5 Grooming(FIM): 4 Bathing(FIM): 3 Upper Body Dressing(FIM): 5 Lower Body Dressing(FIM): 3 Toileting(FIM): 3 Transfers (B,C,W/C) (FIM): 4 Toilet/Commode Transfer(FIM): 4 Additional Short Term Goals: 1-Demonstrate ADL Tasks, 2-Verbalize Understanding , 3-ImproveStrength/[place] 1=Demonstrate adherence to instructed precautions during ADL tasks. 2=Patient will verbalize/demonstrate understanding of assistive devices/ modifications for ADL. 3=Patient will improve strength/tolerance for activity to enable patient to perform ADL's. OT Fci Goals Fci Goals Time Frame: Oct 12, 2016 Eating (FIM): 6 Eating (QC): 6 Groomin Oral Hygiene (QC): 5 Bathing(FIM): 4 Upper Body Dressing(FIM): 5 Lower Body Dressing(FIM): 5 Toileting(FIM): 5 Toileting Hygiene (QC): 5 Transfers (B,C,W/C) (FIM): 5 Toilet/Commode Transfer(FIM): 5 Toilet/Commode Transfer (QC): 5 Additional Goals: 1-Demonstrate ADL Tasks, 2-Verbalize Understanding, 3- ImproveStrength/[place] 1=Demonstrate adherence to instructed precautions during ADL tasks. 2=Patient will verbalize/demonstrate understanding of assistive devices/ modifications for ADL. 3=Patient will improve strength/tolerance for activity to enable patient to perform ADL's. OT Education/Plan Discharge Recommendations Plan/Recommendations: Continue POC Treatment Plan/Plan of Care Patient would benefit from OT for education, treatment and training to promote independence in ADL's, mobility, safety and/or upper extremity function for ADL' s. Plan of Care: ADL Retraining, Caregiver Training, Functional Mobility Treatment Duration: Oct 12, 2016 Visits Per Week: 5-6 Agreement: Yes Rehab Potential: Guarded Time/GCodes Start Time: 11:02 Stop Time: 11:32 Total Time Billed (hr/min): 30 Billed Treatment Time visit, exercise 15 minutes, functional activity 15 minutes KD LIM OT Sep 29, 2016 11:55
[2016-09-29 12:00] VITALS: BP 112/61
[2016-09-29] MEDS ORDERED: LEVOFLOXACIN 750 MG/150 ML IV 150 ML IV SCH (13:00)
[2016-09-29] MEDS: LEVOFLOXACIN 750 MG TAB (LEVAQUIN) PO SCH (13:51)
[2016-09-29] MEDS: oxyCODONE/APAP 5/325MG (PERCOCET 5) TABLET PO PRN (13:51)
--- NOTE | 2016-09-29 14:49 | Physical Therapy Daily Note ---
PT Daily Note-Current Subjective Patient in bed pre tx, with nursing just finishing up. Patient does not want to get out of bed, he states he has just gotten a shower and nursing just got him back to bed after using the bedside commode, nursing states this is true. Patient states he is just too worn out to participate out of bed. Will perform bed exercises. Pain Numeric Pain Scale: 6 Location: Left Location Body Site: Hip Appearance Patient in bed post tx with nurse call, phone, tray, all needs met. in the room. Mental Status Patient Orientation: Person, Place, Situation Attachments: Oxygen Transfers Functional [place] Measure 0=Not Assessed/NA 4=Minimal Assistance 1=Total Assistance 5=Supervision or Setup 2=Maximal Assistance 6=Modified [place] 3=Moderate Assistance 7=Complete IndependenceIRFPAI Quality Coding Scale 6 Independent with activity with or without an assistive device 5 Patient requires set up or clean up by helper. Patient completes activity by themselves 4 Supervision or touching assist (CGA). [place] provide cues , steadying assist 3 The helper provides less than half the effort to complete the activity 2 The helper provides more than half the effort to complete the activity 1 Dependent. The helper does all the effort to complete an activity 7 Patient refused to complete or attempt activity 9 The patient did not perform the activity before the current illness or injury 88 Not attempted due to Medical conditions or safety concerns Exercises Supine Ex: Ankle pumps, Quad Set, Glut sets, Heel Slides, Short Arc Quads, Straight leg raise, Hip abd/add Supine Reps: 10 Treatments functional strengthening Assessment Current Status: Fair Progress patient is making progress with mobility, pillow put underneath left lower leg post tx to keep heel off of bed PT Short Term Goals Short Term Goals Time Frame: Oct 03, 2016 Transfers (B,C,W/C) (FIM): 4 Gait (FIM): 2 Distance (FIM): 1=611-11 ft Gait Assistive Device: FWW PT Camera Prototyping Engineer Goals Chcf Goals PT Chcf Goals Time Frame: Oct 13, 2016 Transfers (B,C,W/C) (FIM): 5 Sit to Lying (QC): 5 Lying-Sitting on Side/Bed(QC): 5 Sit to Stand (QC): 5 Rollin Chair/Gvd-zb-Yhisc Xfer(QC): 5 Does the Patient Walk: Yes Gait (FIM): 4 Gait distance (FIM): 6=311-73 ft Walk 50ft with 2 Turns (QC): 4 Walk 150 ft (QC): 88 Gait Assistive Device: FWW Does the Pt use WC or Scooter?: Yes Wheelchair (FIM): 88 (NT) PT Plan Problem List Problem List: Activity Tolerance, Functional Strength, Safety, Balance, Gait, Transfer, Bed Mobility, ROM Treatment/Plan Treatment Plan: Continue Plan of Care Treatment Plan: Bed Mobility, Education, Functional Activity M[place], Functional Strength, Gait, Safety, Therapeutic Exercise, Transfers Treatment Duration: Oct 13, 2016 Visits Per Week: 11 Safety Risks/Education Patient Education: Correct Positioning, Disease Process, Safety Issues Teaching Recipient: Patient Teaching Methods: Demonstration, Discussion Response to Teaching: Reinforcement Needed Time/GCodes Time In: 1430 Time Out: 1445 Total Billed Treatment Time: 15 Total Billed Treatment 1 visit EX 15 min GODWIN CANDELARIO PT Sep 29, 2016 14:49
[2016-09-29 18:00] VITALS: BP 134/71
[2016-09-29] MEDS: ALFUZOSIN HCL 10 MG TAB (UROXATRAL) PO SCH (18:09)
[2016-09-29] MEDS: warFARin 5 MG (COUMADIN) TAB PO SCH (18:09)
[2016-09-29] MEDS: amLODIPine 5 MG (NORVASC) TAB PO SCH (20:22)
[2016-09-30 06:00] VITALS: BP 131/67
[2016-09-30] MEDS: KCL 8 MEQ (MICRO K) TABLET PO SCH (06:30)
[2016-09-30] MEDS: PANTOPRAZOLE 40 MG (PROTONIX) TAB PO SCH (06:31)
[2016-09-30] MEDS: predniSONE 20 MG TAB PO SCH (06:31)
[2016-09-30 07:13] LABS: BASOPHILS % (AUTO) 0 % (0-10); EOSINOPHILS # (AUTO) 0.1 10^3/uL (0.0-0.3); EOSINOPHILS % (AUTO) 2 % (0-10); LYMPHOCYTES # (AUTO) 1.3 X 10^3 (1.0-4.0); LYMPHOCYTES % (AUTO) 16 % (12-44); MEAN CORPUSCULAR HEMOGLOBIN 32 PG (25-34); MEAN CORPUSCULAR HGB CONC 33 G/DL (32-36); MEAN CORPUSCULAR VOLUME 98 FL (80-99); MEAN PLATELET VOLUME 9.9 FL (7.4-10.4); MONOCYTES % (AUTO) 13 % (0-12); NEUTROPHILS # (AUTO) 5.7 X 10^3 (1.8-7.8); NEUTROPHILS % (AUTO) 70 % (42-75); PLATELET COUNT 258 10^3/uL (130-400); RED BLOOD COUNT 3.21 10^6/uL (4.35-5.85); RED CELL DISTRIBUTION WIDTH 15.1 % (10.0-14.5); WHITE BLOOD COUNT 8.2 10^3/uL (4.3-11.0)
[2016-09-30] MEDS: RT-ALBUTEROL/IPRATROPIUM 3 ML (DUONEB) VIAL INH SCH ×4 (07:16→19:14)
[2016-09-30 07:23] LABS: INR 2.3 (0.8-1.4); PROTHROMBIN TIME PATIENT 25.3 SEC (12.2-14.7)
[2016-09-30 07:32] LABS: ANION GAP 12 MMOL/L (5-14); BLOOD UREA NITROGEN 25 MG/DL (7-18); BUN/CREATININE RATIO 31; CALCIUM 9.2 MG/DL (8.5-10.1); CARBON DIOXIDE 27 MMOL/L (21-32); CHLORIDE 99 MMOL/L (98-107); GFR ESTIMATED > 60; GLUCOSE 106 MG/DL (70-105); POTASSIUM 3.8 MMOL/L (3.6-5.0); SODIUM 138 MMOL/L (135-145)
[2016-09-30] MEDS: DOCUSATE SODIUM 100 MG (COLACE) CAP PO SCH ×2 (09:41→20:50)
[2016-09-30] MEDS: DIGOXIN 0.125 MG (LANOXIN) TAB PO SCH (09:41)
[2016-09-30] MEDS: LOSARTAN 50 MG (COZAAR) TAB PO SCH (09:41)
[2016-09-30] MEDS: SENNOSIDES 8.6 MG (SENOKOT) TAB PO SCH ×2 (09:41→20:50)
[2016-09-30] MEDS: meTOprolol TARTRATE 50 MG (LOPRESSOR) TAB PO SCH ×2 (09:41→20:50)
[2016-09-30] MEDS: POLYETHYLENE GLYCOL 17 GM (MIRALAX) PACK PO SCH ×3 (09:41→20:50)
[2016-09-30] MEDS: AMIODARONE 200 MG (CORDARONE) TAB PO SCH (09:41)
[2016-09-30] MEDS: HYDROCHLOROTHIAZIDE 25 MG (HCTZ) TAB PO SCH (09:41)
[2016-09-30] MEDS: FUROSEMIDE 40 MG (LASIX) TAB PO SCH (09:42)
--- NOTE | 2016-09-30 10:10 | Physical Therapy Daily Note ---
PT Daily Note-Current Subjective Patient in bed pre tx, agrees to PT with some encouragement. Patient states he has pain of 5/10 in left hip. Appearance Patient in recliner post tx with nurse call, phone, tray, in room, all needs met. Mental Status Patient Orientation: Person, Place, Situation Attachments: Oxygen Transfers Functional [place] Measure 0=Not Assessed/NA 4=Minimal Assistance 1=Total Assistance 5=Supervision or Setup 2=Maximal Assistance 6=Modified [place] 3=Moderate Assistance 7=Complete IndependenceIRFPAI Quality Coding Scale 6 Independent with activity with or without an assistive device 5 Patient requires set up or clean up by helper. Patient completes activity by themselves 4 Supervision or touching assist (CGA). [place] provide cues , steadying assist 3 The helper provides less than half the effort to complete the activity 2 The helper provides more than half the effort to complete the activity 1 Dependent. The helper does all the effort to complete an activity 7 Patient refused to complete or attempt activity 9 The patient did not perform the activity before the current illness or injury 88 Not attempted due to Medical conditions or safety concerns Transfers (B, C, W/C) (FIM): 4 Scootin Supine to/from Sit: 4 Sit to/from Stand: 4 Bed to/from Chair: 4 Patient min assist for bed mobility and transfers, he does need cues for safety and hand placement, he tends to pull up from the walker and he tries to sit before turning completely Gait Training Gait (FIM): 1 Distance: 8', 5'x2 Gait Level of Assist: 4 Gait Persons Needed: 1 Gait Assistive Device: FWW wheelchair follow, slow, antalgic, does not step through with right leg, patient gets very SOB Treatments bed mobility and transfer training, ambulation Assessment Current Status: Fair Progress improving mobility and gait PT Short Term Goals Short Term Goals Time Frame: Oct 03, 2016 Transfers (B,C,W/C) (FIM): 4 Gait (FIM): 2 Distance (FIM): 3=505-53 ft Gait Assistive Device: FWW PT [place] Machine Operator Goals [place] Machine Operator Goals PT Prison Goals Time Frame: Oct 13, 2016 Transfers (B,C,W/C) (FIM): 5 Sit to Lying (QC): 5 Lying-Sitting on Side/Bed(QC): 5 Sit to Stand (QC): 5 Rollin Chair/Ycg-ji-Flpjj Xfer(QC): 5 Does the Patient Walk: Yes Gait (FIM): 4 Gait distance (FIM): 4=723-41 ft Walk 50ft with 2 Turns (QC): 4 Walk 150 ft (QC): 88 Gait Assistive Device: FWW Does the Pt use WC or Scooter?: Yes Wheelchair (FIM): 88 (NT) PT Plan Problem List Problem List: Activity Tolerance, Functional Strength, Safety, Balance, Gait, Transfer, Bed Mobility, ROM Treatment/Plan Treatment Plan: Continue Plan of Care Treatment Plan: Bed Mobility, Education, Functional Activity M[place]in[place], Functional Strength, Gait, Safety, Therapeutic Exercise, Transfers Treatment Duration: Oct 13, 2016 Visits Per Week: 11 Safety Risks/Education Patient Education: Gait Training, Transfer Techniques, Correct Positioning, Safety Issues Teaching Recipient: Patient Teaching Methods: Demonstration, Discussion Response to Teaching: Reinforcement Needed Time/GCodes Time In: 950 Time Out: 1005 Total Billed Treatment Time: 15 Total Billed Treatment 1 visit GT 15 min GODWIN CANDELARIO PT Sep 30, 2016 10:10
[2016-09-30] MEDS: oxyCODONE/APAP 5/325MG (PERCOCET 5) TABLET PO PRN (11:43)
[2016-09-30] MEDS: LEVOFLOXACIN 750 MG TAB (LEVAQUIN) PO SCH (13:15)
[2016-09-30] MEDS: warFARin 5 MG (COUMADIN) TAB PO SCH (17:59)
[2016-09-30] MEDS: ALFUZOSIN HCL 10 MG TAB (UROXATRAL) PO SCH (17:59)
[2016-09-30 18:00] VITALS: BP 112/66
[2016-09-30] MEDS: amLODIPine 5 MG (NORVASC) TAB PO SCH (20:50)
[2016-10-01 06:00] VITALS: BP 124/62
[2016-10-01] MEDS: predniSONE 20 MG TAB PO SCH (06:22)
[2016-10-01] MEDS: PANTOPRAZOLE 40 MG (PROTONIX) TAB PO SCH (06:22)
[2016-10-01] MEDS: KCL 8 MEQ (MICRO K) TABLET PO SCH (06:22)
[2016-10-01] MEDS: RT-ALBUTEROL/IPRATROPIUM 3 ML (DUONEB) VIAL INH SCH ×5 (06:49→22:15)
[2016-10-01] MEDS: POLYETHYLENE GLYCOL 17 GM (MIRALAX) PACK PO SCH ×3 (09:00→21:00)
[2016-10-01] MEDS: SENNOSIDES 8.6 MG (SENOKOT) TAB PO SCH ×2 (09:28→21:00)
[2016-10-01] MEDS: LOSARTAN 50 MG (COZAAR) TAB PO SCH (09:28)
[2016-10-01] MEDS: DIGOXIN 0.125 MG (LANOXIN) TAB PO SCH (09:28)
[2016-10-01] MEDS: HYDROCHLOROTHIAZIDE 25 MG (HCTZ) TAB PO SCH (09:28)
[2016-10-01] MEDS: DOCUSATE SODIUM 100 MG (COLACE) CAP PO SCH ×2 (09:28→21:00)
[2016-10-01] MEDS: meTOprolol TARTRATE 50 MG (LOPRESSOR) TAB PO SCH ×2 (09:28→21:00)
[2016-10-01] MEDS: FUROSEMIDE 40 MG (LASIX) TAB PO SCH (09:29)
[2016-10-01] MEDS: AMIODARONE 200 MG (CORDARONE) TAB PO SCH (09:29)
[2016-10-01] MEDS ORDERED: RT-ALBUTEROL/IPRATROPIUM 3 ML (DUONEB) VIAL INH PRN (12:00)
[2016-10-01] MEDS: LEVOFLOXACIN 750 MG TAB (LEVAQUIN) PO SCH (13:38)
[2016-10-01] MEDS: oxyCODONE/APAP 5/325MG (PERCOCET 5) TABLET PO PRN (14:30)
[2016-10-01] MEDS: ALFUZOSIN HCL 10 MG TAB (UROXATRAL) PO SCH (17:37)
[2016-10-01] MEDS: warFARin 5 MG (COUMADIN) TAB PO SCH (17:37)
[2016-10-01 18:00] VITALS: BP 97/50
[2016-10-01 19:00] VITALS: BP 100/62
[2016-10-01] MEDS: amLODIPine 5 MG (NORVASC) TAB PO SCH (21:00)
[2016-10-01 21:15] VITALS: BP 100/58
[2016-10-02] MEDS: oxyCODONE/APAP 5/325MG (PERCOCET 5) TABLET PO PRN ×4 (00:02→23:31)
[2016-10-02] MEDS: RT-ALBUTEROL/IPRATROPIUM 3 ML (DUONEB) VIAL INH SCH ×6 (02:21→22:28)
[2016-10-02 06:00] VITALS: BP 132/62
[2016-10-02] MEDS: predniSONE 20 MG TAB PO SCH (06:24)
[2016-10-02] MEDS: KCL 8 MEQ (MICRO K) TABLET PO SCH (06:24)
[2016-10-02] MEDS: PANTOPRAZOLE 40 MG (PROTONIX) TAB PO SCH (06:24)
[2016-10-02 06:41] LABS: BASOPHILS % (AUTO) 0 % (0-10); EOSINOPHILS # (AUTO) 0.1 10^3/uL (0.0-0.3); EOSINOPHILS % (AUTO) 1 % (0-10); LYMPHOCYTES # (AUTO) 1.7 X 10^3 (1.0-4.0); LYMPHOCYTES % (AUTO) 18 % (12-44); MEAN CORPUSCULAR HEMOGLOBIN 32 PG (25-34); MEAN CORPUSCULAR HGB CONC 33 G/DL (32-36); MEAN CORPUSCULAR VOLUME 98 FL (80-99); MEAN PLATELET VOLUME 9.7 FL (7.4-10.4); MONOCYTES # (AUTO) 0.9 X 10^3 (0.0-1.0); MONOCYTES % (AUTO) 9 % (0-12); NEUTROPHILS % (AUTO) 73 % (42-75); PLATELET COUNT 287 10^3/uL (130-400); RED BLOOD COUNT 3.33 10^6/uL (4.35-5.85); RED CELL DISTRIBUTION WIDTH 15.4 % (10.0-14.5); WHITE BLOOD COUNT 9.7 10^3/uL (4.3-11.0)
[2016-10-02 06:54] LABS: INR 2.6 (0.8-1.4); PROTHROMBIN TIME PATIENT 27.8 SEC (12.2-14.7)
[2016-10-02] MEDS: AMIODARONE 200 MG (CORDARONE) TAB PO SCH (08:50)
[2016-10-02] MEDS: meTOprolol TARTRATE 50 MG (LOPRESSOR) TAB PO SCH ×2 (08:51→20:08)
[2016-10-02] MEDS: FUROSEMIDE 40 MG (LASIX) TAB PO SCH (08:51)
[2016-10-02] MEDS: DIGOXIN 0.125 MG (LANOXIN) TAB PO SCH (08:51)
[2016-10-02] MEDS: POLYETHYLENE GLYCOL 17 GM (MIRALAX) PACK PO SCH ×3 (08:51→20:09)
[2016-10-02] MEDS: HYDROCHLOROTHIAZIDE 25 MG (HCTZ) TAB PO SCH (08:51)
[2016-10-02] MEDS: LOSARTAN 50 MG (COZAAR) TAB PO SCH (08:51)
[2016-10-02] MEDS: SENNOSIDES 8.6 MG (SENOKOT) TAB PO SCH ×2 (08:52→20:09)
[2016-10-02] MEDS: DOCUSATE SODIUM 100 MG (COLACE) CAP PO SCH ×2 (08:52→20:09)
--- NOTE | 2016-10-02 10:13 | Physical Therapy Daily Note ---
PT Daily Note-Current Subjective Patient is up in recliner and agrees to PT. Patient rates left hip pain 5/10. Pain Numeric Pain Scale: 5-Moderate Pain Location: Left Location Body Site: Hip Pain Description: Ache, Acute Mental Status Patient Orientation: Person, Time, Situation Attachments: Oxygen (1.5 L O2) Transfers Functional [place] Measure 0=Not Assessed/NA 4=Minimal Assistance 1=Total Assistance 5=Supervision or Setup 2=Maximal Assistance 6=Modified [place] 3=Moderate Assistance 7=Complete IndependenceIRFPAI Quality Coding Scale 6 Independent with activity with or without an assistive device 5 Patient requires set up or clean up by helper. Patient completes activity by themselves 4 Supervision or touching assist (CGA). [place] provide cues , steadying assist 3 The helper provides less than half the effort to complete the activity 2 The helper provides more than half the effort to complete the activity 1 Dependent. The helper does all the effort to complete an activity 7 Patient refused to complete or attempt activity 9 The patient did not perform the activity before the current illness or injury 88 Not attempted due to Medical conditions or safety concerns Transfers (B, C, W/C) (FIM): 4 Scootin Sit to/from Stand: 4 Sit to Stand (QC): 4 Patient requires verbal instruction for hand placement for transfers. Patient moves to use FWW to stand and does not reach back to chair and is unaware of safety concerns. Weight Bearing Weight Bearing Restriction: Weight Bearing/Tolerated Location Restriction: L LE Gait Training Does the Patient Walk?: Yes Gait (FIM): 2 Distance (FIM): 3=066-57 ft Distance: 75' Gait Level of Assist: 2 Gait Persons Needed: 1 Gait Assistive Device: FWW decrease bradley and step length. No foot clearance bilaterally and presents with step to gait sequence. Patient places most of weight through bilateral UE' s with FWW and limites weight bearing bilateral LE's. Patient fatigued toward the last 25' and required max assist to return to room and sit at the end of the bed due to extreme weakness and inability to perform minimal activity. Exercises Supine Ex: Ankle pumps, Quad Set, Heel Slides, Straight leg raise Supine Reps: 10 (in recliner; AAROM SLR) Seated Therapy Exercises: Ankle pumps, Long arc quads Seated Reps: 20 Assessment Patient tolerates minimal activity and wished to cease treatment after 10 minutes, however, PT encouraged patient to continue. Patient requires AAROM with SLR and is unable to actively perform. Patient also continues to present with increased SOA with minimal activity on 2L O2 NC in place with activity. From a PT standpoint, patient will require LTC to allow gradual progression due to patient inability to tolerate intense treatment. PT Short Term Goals Short Term Goals Time Frame: Oct 03, 2016 Transfers (B,C,W/C) (FIM): 4 Gait (FIM): 2 Distance (FIM): 1=509-37 ft Gait Assistive Device: FWW PT Senior Care Goals Hand Thermal Cutter Goals PT Hand Thermal Cutter Goals Time Frame: Oct 13, 2016 Transfers (B,C,W/C) (FIM): 5 Sit to Lying (QC): 5 Lying-Sitting on Side/Bed(QC): 5 Sit to Stand (QC): 5 Rollin Chair/Mtv-yo-Uidas Xfer(QC): 5 Does the Patient Walk: Yes Gait (FIM): 4 Gait distance (FIM): 7=212-62 ft Walk 50ft with 2 Turns (QC): 4 Walk 150 ft (QC): 88 Gait Assistive Device: FWW Does the Pt use WC or Scooter?: Yes Wheelchair (FIM): 88 (NT) PT Plan Treatment/Plan Treatment Plan: Continue Plan of Care Treatment Plan: Bed Mobility, Education, Functional Activity Mckin[place], Functional Strength, Gait, Safety, Therapeutic Exercise, Transfers Treatment Duration: Oct 13, 2016 Visits Per Week: 11 Safety Risks/Education Patient Education: Gait Training Teaching Recipient: Patient, Significant Other Teaching Methods: Demonstration, Discussion Response to Teaching: Verbalize Understanding, Reinforcement Needed Discharge Recommendations Therapy D/C Recommendations: Residential (TCU/NH) Time/GCodes Time In: 910 Time Out: 933 Total Billed Treatment Time: 23 Total Billed Treatment 1 visit EX 10 min GT 13 min SIGRID PUGH PT Oct 02, 2016 10:13
--- NOTE | 2016-10-02 10:28 | Speech Therapy Daily Note ---
Speech Daily Progress Note Subjective The patient was sitting upright in recliner upon entrance. The patient's was present throughout the session. The patient agreed to participate in the cognitive treatment session on this date. Objective Functional Memory Strategies: External memory strategies were discussed on this date. External memory strategies included calendars, planners, address books, memory journals, routines, pill boxes, and alarms. Per patient (and ), the patient uses physician cards, calendars, and his hand bender (who records appointments in her phone) to recall appointments. At this time, the patient does not use a pill box and is not interested in using one in the future (per , "I am his pill box. It works fine."). Assessment Assessment Current Status: Fair Progress Treatment Plan Continue Plan of Care Speech Short Term Goals Short Term Goals Short Term Goals 1. The patient will recall and demonstrate two functional memory strategies for use at home. 2. The patient will accurately sequence simple events contained within his environment. 3. The patient will demonstrate 90% accuracy with basic safety problem solving. Time Frame-STG: Two Weeks Speech Final Installer Inspector Goals Custodial Goals 1. The patient will demonstrate improved cognitive linguistic skills for increased function and safety with ADL's. Time Frame: One Month Speech-Plan Treatment Plan Speech Therapy Treatment Plan: Continue Plan of Care Continue skilled speech therapy to target functional memory strategies, sequencing, and problem solving. Treatment Duration: Oct 27, 2016 # of days/week One to three. Visits Per Week: One to Three Minutes/Day (M-F): 20 Rehab Potential: Guarded Safety Risks/Education Teaching Recipient: Patient Teaching Methods: Demonstration, Handout, Discussion Response to Teaching: Verbalize Understanding, Reinforcement Needed Education Topics Provided: External Memory Strategies Time Speech Therapy Time In: 09:50 Speech Therapy Time Out: 10:10 Total Billed Time: 20 Billed Treatment Time 1LISA ELIZABETH Oct 02, 2016 10:28
--- NOTE | 2016-10-02 10:52 | Progress Note-Hospitalist ---
Progress Note Progress Notes/Assess & Plan Date Seen 10/02/16 Diagonsis/Assessment & Plan Chart Review: No fever Vitals stable WBC 9.7 Hgb 10.8 CMP normal INR 2.6 senior program planner: RN states that pt will likely not qualify for rehab, and a nursing facility is being sought. Patient Interview: Pt states that he is unable to work with PT. Pt reports regular BMs and urination. Physical exam stable. Pt is using IS and receiving breathing treatments. Dr. Flores discusses nursing facility options. Pt's states that she is concerned regarding finances. no fever, vital signs stable, fatigued, sitting in chair, at bedside in her wheelchair regular rhythm, clear to auscultation bilaterally but diminished in the bases Trace edema Plan: SW consult regarding nursing facility. PT/OT Neb treatments and oxygen supplementation Coumadin for DVT prophylaxis longer term due to severe debility Scribed by Armaan Dockery under the direct supervision of Dr. Flores. BRIGITTE FLORES DO Oct 02, 2016 10:52
[2016-10-02] MEDS: LEVOFLOXACIN 750 MG TAB (LEVAQUIN) PO SCH (13:10)
--- NOTE | 2016-10-02 13:15 | Occupational Ther Daily Note ---
OT Current Status-Daily Note Subjective Pt seen in room, up in recliner, agreeable to OT. No pain mentioned Appearance Alert, cooperative, still SOB, on O2 Mental Status/Objective Functional [place] Measure 0=Not Assessed/NA 4=Minimal Assistance 1=Total Assistance 5=Supervision or Setup 2=Maximal Assistance 6=Modified [place] 3=Moderate Assistance 7=Complete [place] ADL-Treatment Pt was seen at 11:30 but getting ready to shower with nursing. Pt given "homework" to wash arms, chest, abdomen, thighs and pieter in front. After lunch, pt reported that he did his "homework". He was able to feed himself. Pt able to turn t shirt right side out and don t shirt with setup. pt educ modified technique for lower body dressing. Pt was able to get pants on L foot but needed a little help on R foot. Unable to get slipper socks off or slippers on. Became SOB when leaning forward. Sit to stand min assist and pt was able to balance CGA, FWW to pull pants up. Followed skilled cues for hand placement to reach back before sitting. Pt's had already brushed his teeth. Pt required recovery period between pants legs and after shirt and then pants. Decreased activity tolerance. Pt's feet elevated in recliner, pillow underneath to float heels. All needs met. O2 in place except when donning shirt. Functional [place] Measure 0=Not Assessed/NA 4=Minimal Assistance 1=Total Assistance 5=Supervision or Setup 2=Maximal Assistance 6=Modified [place] 3=Moderate Assistance 7=Complete IndependenceIRFPAI Quality Coding Scale 6 Independent with activity with or without an assistive device 5 Patient requires set up or clean up by helper. Patient completes activity by themselves 4 Supervision or touching assist (CGA). [place] provide cues , steadying assist 3 The helper provides less than half the effort to complete the activity 2 The helper provides more than half the effort to complete the activity 1 Dependent. The helper does all the effort to complete an activity 7 Patient refused to complete or attempt activity 9 The patient did not perform the activity before the current illness or injury 88 Not attempted due to Medical conditions or safety concerns OT Short Term Goals Short Term Goals Time Frame: Oct 05, 2016 Eating(FIM): 5 Grooming(FIM): 4 Bathing(FIM): 3 Upper Body Dressing(FIM): 5 Lower Body Dressing(FIM): 3 Toileting(FIM): 3 Transfers (B,C,W/C) (FIM): 4 Toilet/Commode Transfer(FIM): 4 Additional Short Term Goals: 1-Demonstrate ADL Tasks, 2-Verbalize Understanding , 3-ImproveStrength/Mckinley 1=Demonstrate adherence to instructed precautions during ADL tasks. 2=Patient will verbalize/demonstrate understanding of assistive devices/ modifications for ADL. 3=Patient will improve strength/tolerance for activity to enable patient to perform ADL's. OT Floorperson Goals Floorperson Goals Time Frame: Oct 12, 2016 Eating (FIM): 6 Eating (QC): 6 Groomin Oral Hygiene (QC): 5 Bathing(FIM): 4 Upper Body Dressing(FIM): 5 Lower Body Dressing(FIM): 5 Toileting(FIM): 5 Toileting Hygiene (QC): 5 Transfers (B,C,W/C) (FIM): 5 Toilet/Commode Transfer(FIM): 5 Toilet/Commode Transfer (QC): 5 Additional Goals: 1-Demonstrate ADL Tasks, 2-Verbalize Understanding, 3- ImproveStrength/Mckinley 1=Demonstrate adherence to instructed precautions during ADL tasks. 2=Patient will verbalize/demonstrate understanding of assistive devices/ modifications for ADL. 3=Patient will improve strength/tolerance for activity to enable patient to perform ADL's. OT Education/Plan Discharge Recommendations Plan/Recommendations: Continue POC Treatment Plan/Plan of Care Patient would benefit from OT for education, treatment and training to promote independence in ADL's, mobility, safety and/or upper extremity function for ADL' s. Plan of Care: ADL Retraining, Caregiver Training, Functional Mobility Treatment Duration: Oct 12, 2016 Visits Per Week: 5-6 Agreement: Yes Rehab Potential: Guarded Time/GCodes Start Time: 12:37 Stop Time: 13:00 Total Time Billed (hr/min): 23 Billed Treatment Time visit, 23 minutes ADL KD LIM OT Oct 02, 2016 13:15
--- NOTE | 2016-10-02 14:00 | Physical Therapy Daily Note ---
PT Daily Note-Current Subjective Agrees to PT. His reports that at home he was able to clear his feet when walking. Mental Status Patient Orientation: Person, Place, Time, Situation Attachments: Oxygen ( 3 l/min; in situ during and post treatment) Transfers Functional [place] Measure 0=Not Assessed/NA 4=Minimal Assistance 1=Total Assistance 5=Supervision or Setup 2=Maximal Assistance 6=Modified [place] 3=Moderate Assistance 7=Complete IndependenceIRFPAI Quality Coding Scale 6 Independent with activity with or without an assistive device 5 Patient requires set up or clean up by helper. Patient completes activity by themselves 4 Supervision or touching assist (CGA). [place] provide cues , steadying assist 3 The helper provides less than half the effort to complete the activity 2 The helper provides more than half the effort to complete the activity 1 Dependent. The helper does all the effort to complete an activity 7 Patient refused to complete or attempt activity 9 The patient did not perform the activity before the current illness or injury 88 Not attempted due to Medical conditions or safety concerns Sit to stand with min assist before gait. Practiced sit to stand transfers post gait x 5 reps with CGA and skilled cues for hand placement and sequencing. Weight Bearing Weight Bearing Restriction: Weight Bearing/Tolerated Location Restriction: L LE Gait Training Does the Patient Walk?: Yes Gait (FIM): 2 Distance: 20 ft x 3 Gait Level of Assist: 4 (close CGA to min assit) Gait Assistive Device: FWW slow gait with limited heel strike and toe off and limited foot clearance bilaterally. Step to gait with the right LE due to difficulty with WB through the left LE during stance phase of gait. Exercises Seated Therapy Exercises: Ankle pumps, Long arc quads, Hip flexion, Hamstring Curls Seated Reps: 10 (2 sets) Assessment Current Status: Good Progress Progressing with ability to transfer and mobilize. Gait very unsafe with limited foot clearance while walking and seems unsteady. Very close CGA provided with gait with skilled cues for safety. PT Short Term Goals Short Term Goals Time Frame: Oct 03, 2016 Transfers (B,C,W/C) (FIM): 4 Gait (FIM): 2 Distance (FIM): 3=335-53 ft Gait Assistive Device: FWW PT Dancing Teacher Goals Detention Goals PT Detention Goals Time Frame: Oct 13, 2016 Transfers (B,C,W/C) (FIM): 5 Sit to Lying (QC): 5 Lying-Sitting on Side/Bed(QC): 5 Sit to Stand (QC): 5 Rollin Chair/Gsm-bn-Rijqe Xfer(QC): 5 Does the Patient Walk: Yes Gait (FIM): 4 Gait distance (FIM): 2=276-25 ft Walk 50ft with 2 Turns (QC): 4 Walk 150 ft (QC): 88 Gait Assistive Device: FWW Does the Pt use WC or Scooter?: Yes Wheelchair (FIM): 88 (NT) PT Plan Problem List Problem List: Activity Tolerance, Functional Strength, Safety, Balance, Gait, Transfer, Bed Mobility Treatment/Plan Treatment Plan: Continue Plan of Care Treatment Plan: Bed Mobility, Education, Functional Activity Mckin[place], Functional Strength, Gait, Safety, Therapeutic Exercise, Transfers Treatment Duration: Oct 13, 2016 Visits Per Week: 11 Safety Risks/Education Patient Education: Transfer Techniques, Safety Issues Teaching Recipient: Patient Teaching Methods: Demonstration, Discussion Response to Teaching: Reinforcement Needed Time/GCodes Time In: 1310 Time Out: 1341 Total Billed Treatment Time: 31 Total Billed Treatment visit EX 15 GT 16 AYLA PEREZ PT Oct 02, 2016 14:00
[2016-10-02] MEDS: warFARin 5 MG (COUMADIN) TAB PO SCH (17:42)
[2016-10-02] MEDS: ALFUZOSIN HCL 10 MG TAB (UROXATRAL) PO SCH (17:42)
[2016-10-02 18:00] VITALS: BP 110/61
[2016-10-02] MEDS: amLODIPine 5 MG (NORVASC) TAB PO SCH (20:08)
[2016-10-03] MEDS: RT-ALBUTEROL/IPRATROPIUM 3 ML (DUONEB) VIAL INH SCH ×6 (02:46→22:42)
[2016-10-03] MEDS: PANTOPRAZOLE 40 MG (PROTONIX) TAB PO SCH (06:06)
[2016-10-03] MEDS: predniSONE 20 MG TAB PO SCH (06:06)
[2016-10-03] MEDS: KCL 8 MEQ (MICRO K) TABLET PO SCH (06:06)
--- NOTE | 2016-10-03 07:34 | Pulmonary Progress Note ---
Subjective Subjective/Events-last exam Pt feels improved and is looking better. Exam Exam Vital Signs Date Time Temp Pulse Resp B/P Pulse Ox O2 Delivery O2 Flow Rate FiO2 10/03/16 06:41 96 3.00 10/03/16 02:47 92 3.00 10/02/16 22:28 94 3.00 10/02/16 20:10 Nasal Cannula 3.00 10/02/16 19:05 96 3.00 10/02/16 18:00 98.9 82 22 110/61 96 Nasal Cannula 3.00 10/02/16 14:59 92 3.00 10/02/16 11:13 96 3.00 10/02/16 08:00 Nasal Cannula 3.00 I & O 10/03/16 07:00 Intake Total 1630 ml Output Total 1525 ml Balance 105 ml General Appearance: No Apparent Distress WD/WN Anxious Respiratory: Chest Non Tender Crackles Decreased Breath Sounds Cardiovascular: Regular Rate, Rhythm Neurologic/Psychiatric: Alert Oriented x3 Skin: Normal Color Warm/Dry Results Lab Laboratory Tests 10/02/16 06:25 Assessment/Plan Assessment/Plan Acute left hip fracture sustained in fall from scooter Severe COPD nighttime oxygen -SVNS, oxygen -D/C Abx after tomorrow -decrease prednisone to 10mg and continue to taper Atelectasis -increase activity, IS pulmonary edema -lasix Severe CAD with ischemic cardiomyopathy with defibrillator placement 1 year ago Atrial fibrillation Severe debility with poor prognosis long-term VICENTE LUCIANO DO Oct 03, 2016 07:34
[2016-10-03 08:00] VITALS: BP 113/55
--- NOTE | 2016-10-03 08:30 | Diagnostic Imaging Report ---
Indication: New dyspnea this morning. Discussion: Two views of the chest were obtained, comparison 09/28/2016. Improved aeration of the bilateral lungs. No focal consolidation or lisa pulmonary edema. No pleural fluid or pneumothorax. Elevated right hemidiaphragm is stable. The heart size is normal on today's exam. Left-sided pacemaker and median sternotomy are stable. Impression: 1. Improved aeration of the bilateral lungs. Heart is normal in size on today's exam. Dictated by: Dictated on workstation # [id number]
[2016-10-03] MEDS: SENNOSIDES 8.6 MG (SENOKOT) TAB PO SCH ×2 (09:00→20:18)
[2016-10-03] MEDS: POLYETHYLENE GLYCOL 17 GM (MIRALAX) PACK PO SCH (09:00)
[2016-10-03] MEDS: AMIODARONE 200 MG (CORDARONE) TAB PO SCH (09:34)
[2016-10-03] MEDS: oxyCODONE/APAP 5/325MG (PERCOCET 5) TABLET PO PRN ×2 (09:34→13:33)
[2016-10-03] MEDS: DOCUSATE SODIUM 100 MG (COLACE) CAP PO SCH ×2 (09:34→20:18)
[2016-10-03] MEDS: HYDROCHLOROTHIAZIDE 25 MG (HCTZ) TAB PO SCH (09:34)
[2016-10-03] MEDS: FUROSEMIDE 40 MG (LASIX) TAB PO SCH (09:34)
[2016-10-03] MEDS: LOSARTAN 50 MG (COZAAR) TAB PO SCH (09:34)
[2016-10-03] MEDS: DIGOXIN 0.125 MG (LANOXIN) TAB PO SCH (09:34)
[2016-10-03] MEDS: meTOprolol TARTRATE 50 MG (LOPRESSOR) TAB PO SCH ×2 (09:37→20:17)
--- NOTE | 2016-10-03 09:48 | Occupational Ther Daily Note ---
OT Current Status-Daily Note Subjective Pt alert, sitting in recliner. present in room. Pt agreed to therapy. No c/o pain at this time. Mental Status/Objective Patient Orientation: Person, Place Functional [place] Measure 0=Not Assessed/NA 4=Minimal Assistance 1=Total Assistance 5=Supervision or Setup 2=Maximal Assistance 6=Modified [place] 3=Moderate Assistance 7=Complete [place] ADL-Treatment Pt was set up for sponge bath. Pt was able to cleanse/dry upper body by self. SBA to cleanse and dry pieter area/buttocks. Sitting to bathe LE by self, assist for feet. Pt was able don/doff shirt by self then SBA to don/doff pants when standing to hike over hips. Assist to don socks/shoes. Pt was able to wash hands and face with cloth and comb hair. After therapy, pt sitting in recliner with nrsg and present in room. All needs met in room. Functional [place] Measure 0=Not Assessed/NA 4=Minimal Assistance 1=Total Assistance 5=Supervision or Setup 2=Maximal Assistance 6=Modified [place] 3=Moderate Assistance 7=Complete IndependenceIRFPAI Quality Coding Scale 6 Independent with activity with or without an assistive device 5 Patient requires set up or clean up by helper. Patient completes activity by themselves 4 Supervision or touching assist (CGA). [place] provide cues , steadying assist 3 The helper provides less than half the effort to complete the activity 2 The helper provides more than half the effort to complete the activity 1 Dependent. The helper does all the effort to complete an activity 7 Patient refused to complete or attempt activity 9 The patient did not perform the activity before the current illness or injury 88 Not attempted due to Medical conditions or safety concerns Grooming (FIM): 5 Bathing (FIM): 4 Bathing Location: L Arm, R Arm, L Upper Leg, R Upper Leg, Chest, Abdomen, Buttocks, Perineal Area Upper Body (FIM): 5 Lower Body Dressing (FIM): 4 OT Short Term Goals Short Term Goals Time Frame: Oct 05, 2016 Eating(FIM): 5 Grooming(FIM): 4 Bathing(FIM): 3 Upper Body Dressing(FIM): 5 Lower Body Dressing(FIM): 3 Toileting(FIM): 3 Transfers (B,C,W/C) (FIM): 4 Toilet/Commode Transfer(FIM): 4 Additional Short Term Goals: 1-Demonstrate ADL Tasks, 2-Verbalize Understanding , 3-ImproveStrength/Mckinley 1=Demonstrate adherence to instructed precautions during ADL tasks. 2=Patient will verbalize/demonstrate understanding of assistive devices/ modifications for ADL. 3=Patient will improve strength/tolerance for activity to enable patient to perform ADL's. OT Rn Lactation Goals Rn Lactation Goals Time Frame: Oct 12, 2016 Eating (FIM): 6 Eating (QC): 6 Groomin Oral Hygiene (QC): 5 Bathing(FIM): 4 Upper Body Dressing(FIM): 5 Lower Body Dressing(FIM): 5 Toileting(FIM): 5 Toileting Hygiene (QC): 5 Transfers (B,C,W/C) (FIM): 5 Toilet/Commode Transfer(FIM): 5 Toilet/Commode Transfer (QC): 5 Additional Goals: 1-Demonstrate ADL Tasks, 2-Verbalize Understanding, 3- ImproveStrength/Mckinley 1=Demonstrate adherence to instructed precautions during ADL tasks. 2=Patient will verbalize/demonstrate understanding of assistive devices/ modifications for ADL. 3=Patient will improve strength/tolerance for activity to enable patient to perform ADL's. OT Education/Plan Discharge Recommendations Plan/Recommendations: Continue POC Treatment Plan/Plan of Care Patient would benefit from OT for education, treatment and training to promote independence in ADL's, mobility, safety and/or upper extremity function for ADL' s. Plan of Care: ADL Retraining, Caregiver Training, Functional Mobility Treatment Duration: Oct 12, 2016 Visits Per Week: 5-6 Agreement: Yes Rehab Potential: Guarded Time/GCodes Start Time: 09:25 Stop Time: 09:48 Total Time Billed (hr/min): 23 Billed Treatment Time 1 visit-ADL 2 (23 min) AYLA VENEGAS Oct 03, 2016 09:48
--- NOTE | 2016-10-03 11:01 | Progress Note-Hospitalist ---
Progress Note Progress Notes/Assess & Plan Date Seen 10/03/16 Diagonsis/Assessment & Plan Patient Interview: Pt states that he has not seen SW yet. Pt states that he feels better today, but is still sore. Physical exam stable. Pt states that he is having regular BMs. no fever, vital signs stable, fatigued, sitting in chair, at bedside in her wheelchair regular rhythm, clear to auscultation bilaterally but diminished in the bases with subtle crackles Trace edema Assessment: Severe debility following hip fracture repair Chronic debility Severe COPD with exacerbation placed on prednisone and Levaquin for bronchitis completing tomorrow Sleep apnea Slow recovery Plan: SW consult regarding nursing facility. PT/OT Neb treatments and oxygen supplementation Coumadin for DVT prophylaxis longer term due to severe debility check labs in a.m. Scribed by Armaan Dockery under the direct supervision of Dr. Flores. BRIGITTE FLORES DO Oct 03, 2016 11:01
--- NOTE | 2016-10-03 11:30 | Physical Therapy Daily Note ---
PT Daily Note-Current Subjective Patient sitting in recliner pre tx, agrees to PT reluctantly. encourages him. Patient states he has pain in his left hip at 5-6/10. He also states his right leg has been giving him trouble because it is weak. Appearance Patient in recliner post tx with nurse call, phone, tray, in room, all needs met. Mental Status Patient Orientation: Person, Place, Situation Transfers Functional [place] Measure 0=Not Assessed/NA 4=Minimal Assistance 1=Total Assistance 5=Supervision or Setup 2=Maximal Assistance 6=Modified [place] 3=Moderate Assistance 7=Complete IndependenceIRFPAI Quality Coding Scale 6 Independent with activity with or without an assistive device 5 Patient requires set up or clean up by helper. Patient completes activity by themselves 4 Supervision or touching assist (CGA). [place] provide cues , steadying assist 3 The helper provides less than half the effort to complete the activity 2 The helper provides more than half the effort to complete the activity 1 Dependent. The helper does all the effort to complete an activity 7 Patient refused to complete or attempt activity 9 The patient did not perform the activity before the current illness or injury 88 Not attempted due to Medical conditions or safety concerns Transfers (B, C, W/C) (FIM): 4 Sit to/from Stand: 4 Patient performed sit to stand transfer with CGA but needs cues for safety and hand placement. Gait Training Gait (FIM): 1 Distance: 20', 5', 10' Gait Level of Assist: 4 Gait Persons Needed: 1 Gait Assistive Device: FWW Wheelchair follow. Patient had a lot of trouble ambulating today, he could barely advance his right leg. He would state over and over "I just can't do it " even with encouragement. Antalgic, poor endurance. Exercises Seated Therapy Exercises: Ankle pumps, Long arc quads, Hip flexion Seated Reps: 20 Treatments transfers, ambulation, functional strengthening Assessment Current Status: Fair Progress Patient did a little worse today, but overall he has seen improvement in mobility. PT Short Term Goals Short Term Goals Time Frame: Oct 03, 2016 Transfers (B,C,W/C) (FIM): 4 Gait (FIM): 2 Distance (FIM): 5=677-96 ft Gait Assistive Device: FWW PT Fdc Goals Cracker Off Goals PT Cracker Off Goals Time Frame: Oct 13, 2016 Transfers (B,C,W/C) (FIM): 5 Sit to Lying (QC): 5 Lying-Sitting on Side/Bed(QC): 5 Sit to Stand (QC): 5 Rollin Chair/Tdf-vk-Ofbyg Xfer(QC): 5 Does the Patient Walk: Yes Gait (FIM): 4 Gait distance (FIM): 9=738-02 ft Walk 50ft with 2 Turns (QC): 4 Walk 150 ft (QC): 88 Gait Assistive Device: FWW Does the Pt use WC or Scooter?: Yes Wheelchair (FIM): 88 (NT) PT Plan Problem List Problem List: Activity Tolerance, Functional Strength, Safety, Balance, Gait, Transfer, Bed Mobility, ROM Treatment/Plan Treatment Plan: Continue Plan of Care Treatment Plan: Bed Mobility, Education, Functional Activity M[place]in[place], Functional Strength, Gait, Safety, Therapeutic Exercise, Transfers Treatment Duration: Oct 13, 2016 Visits Per Week: 11 Safety Risks/Education Patient Education: Gait Training, Transfer Techniques, Correct Positioning, Safety Issues Teaching Recipient: Patient Teaching Methods: Demonstration, Discussion Response to Teaching: Reinforcement Needed Time/GCodes Time In: 1100 Time Out: 1125 Total Billed Treatment Time: 25 Total Billed Treatment 1 visit GT 15 min EX 10 min GODWIN CANDELARIO PT Oct 03, 2016 11:30
[2016-10-03] MEDS: LEVOFLOXACIN 750 MG TAB (LEVAQUIN) PO SCH (13:19)
--- NOTE | 2016-10-03 15:23 | Physical Therapy Daily Note ---
PT Daily Note-Current Subjective Patient reports he is tired, however, agrees to PT. Pain Numeric Pain Scale: 5-Moderate Pain Location: Left Location Body Site: Hip Pain Description: Acute Mental Status Patient Orientation: Normal For Age Attachments: Oxygen Transfers Functional [place] Measure 0=Not Assessed/NA 4=Minimal Assistance 1=Total Assistance 5=Supervision or Setup 2=Maximal Assistance 6=Modified [place] 3=Moderate Assistance 7=Complete IndependenceIRFPAI Quality Coding Scale 6 Independent with activity with or without an assistive device 5 Patient requires set up or clean up by helper. Patient completes activity by themselves 4 Supervision or touching assist (CGA). [place] provide cues , steadying assist 3 The helper provides less than half the effort to complete the activity 2 The helper provides more than half the effort to complete the activity 1 Dependent. The helper does all the effort to complete an activity 7 Patient refused to complete or attempt activity 9 The patient did not perform the activity before the current illness or injury 88 Not attempted due to Medical conditions or safety concerns Transfers (B, C, W/C) (FIM): 3 Scootin Sit to/from Stand: 3 Sit to Stand (QC): 3 Weight Bearing Weight Bearing Restriction: Weight Bearing/Tolerated Location Restriction: L LE Gait Training Does the Patient Walk?: Yes Gait (FIM): 1 Distance (FIM): 1=up to 49 ft Distance: 15' x 2; 5' x 1 Gait Level of Assist: 3 Gait Persons Needed: 2 Gait Assistive Device: FWW step to, shuffle gait, minimal to no weight shifting to left to advance right LE Exercises Seated Therapy Exercises: Ankle pumps, Long arc quads Seated Reps: 15 (x 2 sets) Assessment Patient tolerates minimal activity and displays increase SOA with activity. PT to continue to increase activity as tolerated. PT Short Term Goals Short Term Goals Time Frame: Oct 03, 2016 Transfers (B,C,W/C) (FIM): 4 Gait (FIM): 2 Distance (FIM): 9=456-25 ft Gait Assistive Device: FWW PT Linen Keeper Goals Linen Keeper Goals PT Linen Keeper Goals Time Frame: Oct 13, 2016 Transfers (B,C,W/C) (FIM): 5 Sit to Lying (QC): 5 Lying-Sitting on Side/Bed(QC): 5 Sit to Stand (QC): 5 Rollin Chair/Evs-tn-Ubwlq Xfer(QC): 5 Does the Patient Walk: Yes Gait (FIM): 4 Gait distance (FIM): 5=137-73 ft Walk 50ft with 2 Turns (QC): 4 Walk 150 ft (QC): 88 Gait Assistive Device: FWW Does the Pt use WC or Scooter?: Yes Wheelchair (FIM): 88 (NT) PT Plan Treatment/Plan Treatment Plan: Continue Plan of Care Treatment Plan: Bed Mobility, Education, Functional Activity M[place], Functional Strength, Gait, Safety, Therapeutic Exercise, Transfers Treatment Duration: Oct 13, 2016 Visits Per Week: 11 Time/GCodes Time In: 1445 Time Out: 1508 Total Billed Treatment Time: 23 Total Billed Treatment 1 visit GT 15 min EX 8 min SIGRID PUGH PT Oct 03, 2016 15:23
[2016-10-03] MEDS: warFARin 5 MG (COUMADIN) TAB PO SCH (17:56)
[2016-10-03] MEDS: ALFUZOSIN HCL 10 MG TAB (UROXATRAL) PO SCH (17:56)
[2016-10-03] MEDS: amLODIPine 5 MG (NORVASC) TAB PO SCH (20:17)
[2016-10-03 20:46] VITALS: BP 103/52
[2016-10-04] MEDS: oxyCODONE/APAP 5/325MG (PERCOCET 5) TABLET PO PRN (00:24)
[2016-10-04] MEDS: RT-ALBUTEROL/IPRATROPIUM 3 ML (DUONEB) VIAL INH SCH ×3 (02:38→10:40)
[2016-10-04 05:02] LABS: BASOPHILS % (AUTO) 0 % (0-10); EOSINOPHILS # (AUTO) 0.1 10^3/uL (0.0-0.3); EOSINOPHILS % (AUTO) 1 % (0-10); LYMPHOCYTES # (AUTO) 1.5 X 10^3 (1.0-4.0); LYMPHOCYTES % (AUTO) 17 % (12-44); MEAN CORPUSCULAR HEMOGLOBIN 32 PG (25-34); MEAN CORPUSCULAR HGB CONC 33 G/DL (32-36); MEAN CORPUSCULAR VOLUME 98 FL (80-99); MEAN PLATELET VOLUME 9.7 FL (7.4-10.4); MONOCYTES # (AUTO) 0.7 X 10^3 (0.0-1.0); MONOCYTES % (AUTO) 8 % (0-12); NEUTROPHILS # (AUTO) 6.7 X 10^3 (1.8-7.8); NEUTROPHILS % (AUTO) 74 % (42-75); PLATELET COUNT 274 10^3/uL (130-400); RED BLOOD COUNT 3.27 10^6/uL (4.35-5.85); RED CELL DISTRIBUTION WIDTH 15.7 % (10.0-14.5); WHITE BLOOD COUNT 9.1 10^3/uL (4.3-11.0)
[2016-10-04 05:11] LABS: INR 2.8 (0.8-1.4); PROTHROMBIN TIME PATIENT 29.1 SEC (12.2-14.7)
[2016-10-04 05:25] LABS: ALANINE AMINOTRANSFERASE 22 U/L (0-55); ALBUMIN 3.1 G/DL (3.2-4.5); ANION GAP 10 MMOL/L (5-14); ASPARTATE AMINO TRANSFERASE 24 U/L (5-34); BILIRUBIN,TOTAL 0.6 MG/DL (0.1-1.0); BLOOD UREA NITROGEN 26 MG/DL (7-18); BUN/CREATININE RATIO 30; CALCIUM 8.7 MG/DL (8.5-10.1); CARBON DIOXIDE 27 MMOL/L (21-32); CHLORIDE 100 MMOL/L (98-107); CREATININE SERUM 0.86 MG/DL (0.60-1.30); GFR ESTIMATED > 60; GLUCOSE 98 MG/DL (70-105); POTASSIUM 3.5 MMOL/L (3.6-5.0); SODIUM 137 MMOL/L (135-145); TOTAL PROTEIN 6.2 G/DL (6.4-8.2)
[2016-10-04] MEDS: PANTOPRAZOLE 40 MG (PROTONIX) TAB PO SCH (06:12)
[2016-10-04] MEDS: KCL 8 MEQ (MICRO K) TABLET PO SCH (06:12)
[2016-10-04] MEDS ORDERED: predniSONE 10 MG TAB PO SCH (07:00)
[2016-10-04 08:00] VITALS: BP 176/84
[2016-10-04] MEDS: SENNOSIDES 8.6 MG (SENOKOT) TAB PO SCH (09:00)
[2016-10-04] MEDS: POLYETHYLENE GLYCOL 17 GM (MIRALAX) PACK PO SCH (09:00)
[2016-10-04] MEDS: DOCUSATE SODIUM 100 MG (COLACE) CAP PO SCH (09:00)
[2016-10-04] MEDS: meTOprolol TARTRATE 50 MG (LOPRESSOR) TAB PO SCH (10:00)
[2016-10-04] MEDS: FUROSEMIDE 40 MG (LASIX) TAB PO SCH (10:00)
[2016-10-04] MEDS: HYDROCHLOROTHIAZIDE 25 MG (HCTZ) TAB PO SCH (10:00)
[2016-10-04] MEDS: AMIODARONE 200 MG (CORDARONE) TAB PO SCH (10:00)
[2016-10-04] MEDS: LOSARTAN 50 MG (COZAAR) TAB PO SCH (10:00)
[2016-10-04] MEDS: DIGOXIN 0.125 MG (LANOXIN) TAB PO SCH (10:01)
--- NOTE | 2016-10-04 11:09 | Speech Therapy Daily Note ---
Speech Daily Progress Note Subjective The patient was seated upright in recliner upon entrance. The patient's was present at bedside. The patient reported he would be discharging to [facility] on this date and agreed to participate in cognitive therapy with the clinician. Objective Safety Problem Solving: The patient was provided pictures depicting safety concerns in common environments. The patient was asked to identify the safety concern and provide an appropriate solution to each. The patient demonstrated fair to good accuracy with this task with mild clinician verbal cueing. To note , the patient's continued to answer questions for the patient, however, the patient would add additional information following. Assessment Assessment Current Status: Fair Progress Treatment Plan Continue Plan of Care Speech Short Term Goals Short Term Goals Short Term Goals 1. The patient will recall and demonstrate two functional memory strategies for use at home. 2. The patient will accurately sequence simple events contained within his environment. 3. The patient will demonstrate 90% accuracy with basic safety problem solving. Time Frame-STG: Two Weeks Speech [employer] Goals Senior Living Goals 1. The patient will demonstrate improved cognitive linguistic skills for increased function and safety with ADL's. Time Frame: One Month Speech-Plan Treatment Plan Speech Therapy Treatment Plan: Continue Plan of Care Continue skilled speech therapy to target functional problem solving and memory strategies. Treatment Duration: Oct 27, 2016 # of days/week One to Three. Visits Per Week: One to Three Minutes/Day (M-F): 20 Rehab Potential: Guarded Safety Risks/Education Teaching Recipient: Patient, Significant Other Teaching Methods: Discussion Response to Teaching: Return Demonstration, Reinforcement Needed Education Topics Provided: Safety Procedures for Home (Life Alert, 911) Time Speech Therapy Time In: 10:20 Speech Therapy Time Out: 10:35 Total Billed Time: 15 Billed Treatment Time JoseeLISA ELIZABETH ST Oct 04, 2016 11:09
[2016-10-04] MEDS ORDERED: WARF5TAB PO (11:40)
[2016-10-04] MEDS ORDERED: SENN-140 PO (11:40)
[2016-10-04] MEDS ORDERED: POLY17PO23 PO (11:40)
[2016-10-04] MEDS ORDERED: LOSA50TA36 PO (11:40)
[2016-10-04] MEDS ORDERED: METO50TA2 PO (11:40)
[2016-10-04] MEDS ORDERED: TRAM50TA2 PO (11:40)
[2016-10-04] MEDS ORDERED: OXYC-471 PO (11:40)
[2016-10-04] MEDS ORDERED: TAMS0.4C98 PO (11:40)
[2016-10-04] MEDS ORDERED: AMIO200T2 PO (11:40)
--- NOTE | 2016-10-04 11:43 | Discharge Inst-Skilled Nursing ---
Discharge Inst-Skilled NF Patient Instructions Patient Problems: Debility Hip fracture COPD DVT Prophylaxis with Coumadin Goal: Return to independent living Consult/Follow Up/Orders Follow Up Appt.: [facility] in 1 week Skilled NF Admit to: [facility] Certification ([facility]) I certify that SNF services are required to be given on an inpatient basis because of the above named patient's need for shelter care on a continuing basis for the conditions(s) for which he/she was receiving inpatient hospital services prior to his/her transfer to the SNF. Snf Facility Order: Nursing Services, Dobie Worker-Evaluate & Treat, Physical Therapy-Evaluate & Treat, Speech Language-Evaluate & Treat Discharge Diet: Cardiac Diet Daily Activity as Tolerated: Yes New & Resume Previous Orders New Medications: Tamsulosin HCl (Flomax) 0.4 Mg Cap 0.4 MG PO HS Days 30 CAP Amiodarone HCl (Amiodarone HCl) 200 Mg Tablet 200 MG PO DAILY Days 30 TAB Losartan Potassium (Losartan Potassium) 50 Mg Tablet 100 MG PO DAILY Days 30 TAB Metoprolol Tartrate (Metoprolol Tartrate) 50 Mg Tablet 25 MG PO BID Days 30 TAB Oxycodone HCl/Acetaminophen (Oxycodone-Acetaminophen 5-325) 1 Each Tablet 1-2 TAB PO Q4H PRN SEVERE PAIN #60 TAB Polyethylene Glycol 3350 (Polyethylene Glycol 3350) 17 Gm Powd.pack 17 GM PO DAILY Days 30 EACH Sennosides (Senna) 8.6 Mg Tablet 8.6 MG PO BID Days 30 TAB Tramadol HCl (Tramadol HCl) 50 Mg Tablet 50 MG PO Q4H PRN MODERATE PAIN #30 TAB Warfarin Sodium (Coumadin) 5 Mg Tablet 5 MG PO DAILY@1800 Days 30 TAB Continued Medications: Amlodipine Besylate (Amlodipine Besylate) 5 Mg Tablet 5 MG PO HS Aspirin ([place] Aspirin) 81 Mg Tablet.dr 162 MG PO BID Digoxin (Digoxin) 125 Mcg Tablet 125 MCG PO DAILY Esomeprazole Magnesium (Nexium) 40 Mg Cap 40 MG PO DAILY Fluticasone Propionate (Flovent Hfa 220 mcg) 1 Ea Aero 2 PUFF IH PRN EA Furosemide (Furosemide) 40 Mg Tablet 40 MG PO DAILY TAB Mexiletine HCl (Mexiletine HCl) 150 Mg Cap 150 MG PO TID Potassium Chloride (Potassium Chloride) 8 Meq Tablet.er 8 MEQ PO DAILY Discontinued Medications: Amiodarone HCl (Pacerone) 200 Mg Tablet 200 MG PO MoTuWeThFr TAB Amiodarone HCl (Amiodarone HCl) 200 Mg Tablet 400 MG PO SuSa TAKES 2 (200 MG) TABLETS TAB Losartan/Hydrochlorothiazide (Losartan-Hctz 100-25 mg Tab) 1 Each Tablet 1 TAB PO DAILY Metoprolol Tartrate (Metoprolol Tartrate) 50 Mg Tablet 25 MG PO BID TAKES 1/2 OF A (50 MG) TABLET Mellissa Flores Oct 04, 2016 11:41 MELLISSA FLORES DO Oct 04, 2016 11:43
[2016-10-04] MEDS ORDERED: IPRA3AMP INH (11:46)
--- NOTE | 2016-10-04 11:46 | Discharge Summary-Hospitalist ---
Diagnosis/Chief Complaint Date of Admission Sep 28, 2016 at 12:38 Date of Discharge Discharge Date: Oct 04, 2016 Discharge Diagnosis Patient Interview: Pt states that he has not seen SW yet. Pt states that he feels better today, but is still sore. Physical exam stable. Pt states that he is having regular BMs. no fever, vital signs stable, fatigued, sitting in chair, at bedside in her wheelchair regular rhythm, clear to auscultation bilaterally but diminished in the bases with subtle crackles Trace edema Assessment: Severe debility following hip fracture repair Chronic debility Severe COPD with exacerbation placed on prednisone and Levaquin for bronchitis completing tomorrow Sleep apnea Slow recovery Plan: SW consult regarding nursing facility. PT/OT Neb treatments and oxygen supplementation Coumadin for DVT prophylaxis longer term due to severe debility check labs in a.m. Scribed by Armaan Dockery under the direct supervision of Dr. Flores. Reason Hospital Visit/Course Hospital course: Patient had a lengthy hospital course on swing bed but severe debility required long term transfer since he was so slow to recover and just overall comorbidities precluded anything other than a long-term poor prognosis. He completed Levaquin and steroid taper while hospitalized in swing bed and overall improved enough to be able to go over to [facility] for skilled therapy. Discharge Summary Discharge Physical Examination Allergies: Coded Allergies: Penicillins (Verified Allergy, Severe, HIVES, SOB, 07/02/15) codeine (Verified Allergy, Severe, SOB, HIVES, 07/02/15) Vitals & I&Os Vital Signs Date Time Temp Pulse Resp B/P Pulse Ox O2 Delivery O2 Flow Rate FiO2 10/04/16 10:41 1.00 96 10/04/16 08:00 98.4 95 20 176/84 97 Nasal Cannula Hospital Course Labs (last 24 hrs) Laboratory Tests 10/04/16 04:32: Alanine Aminotransferase (ALT/SGPT) 22, Albumin 3.1L, Alkaline Phosphatase 81, Anion Gap 10, Aspartate Amino Transf (AST/SGOT) 24, BUN/Creatinine Ratio 30, Blood Urea Nitrogen 26H, Calcium Level 8.7, Carbon Dioxide Level 27, Chloride Level 100, Creatinine 0.86, Estimat Glomerular Filtration Rate > 60, Glucose Level 98, Potassium Level 3.5L, Sodium Level 137, Total Bilirubin 0.6, Total Protein 6.2L 10/04/16 04:37: Basophils # (Auto) 0.0, Basophils (%) (Auto) 0, Eosinophils # (Auto) 0.1, Eosinophils (%) (Auto) 1, Hematocrit 32L, Hemoglobin 10.4L, INR Comment 2.8H, Lymphocytes # (Auto) 1.5, Lymphocytes (%) (Auto) 17, Mean Corpuscular Hemoglobin 32, Mean Corpuscular Hemoglobin Concent 33, Mean Corpuscular Volume 98, Mean Platelet Volume 9.7, Monocytes # (Auto) 0.7, Monocytes (%) (Auto) 8, Neutrophils # (Auto) 6.7, Neutrophils (%) (Auto) 74, Platelet Count 274, Prothrombin Time 29.1H, Red Blood Count 3.27L, Red Cell Distribution Width 15.7H , White Blood Count 9.1 Pending Labs Discharge Home Medications: Active Scripts Active Iprat-Albut 0.5-3(2.5) mg/3 ml (Ipratropium/Albuterol Sulfate) 3 Ml Ampul.neb 3 Ml INH RTQ4HR 30 Days Senna (Sennosides) 8.6 Mg Tablet 8.6 Mg PO BID 30 Days Polyethylene Glycol 3350 17 Gm Powd.pack 17 Gm PO DAILY 30 Days Tramadol HCl 50 Mg Tablet 50 Mg PO Q4H PRN Oxycodone-Acetaminophen 5-325 (Oxycodone HCl/Acetaminophen) 1 Each Tablet 1-2 Tab PO Q4H PRN Losartan Potassium 50 Mg Tablet 100 Mg PO DAILY 30 Days Metoprolol Tartrate 50 Mg Tablet 25 Mg PO BID 30 Days Amiodarone HCl 200 Mg Tablet 200 Mg PO DAILY 30 Days Flomax (Tamsulosin HCl) 0.4 Mg Cap 0.4 Mg PO HS 30 Days Coumadin (Warfarin Sodium) 5 Mg Tablet 5 Mg PO DAILY@1800 30 Days Reported Digoxin 125 Mcg Tablet 125 Mcg PO DAILY Mexiletine HCl 150 Mg Cap 150 Mg PO TID Flovent Hfa 220 mcg (Fluticasone Propionate) 1 Ea Aero 2 Puff IH PRN Potassium Chloride 8 Meq Tablet.er 8 Meq PO DAILY Amlodipine Besylate 5 Mg Tablet 5 Mg PO HS Nexium (Esomeprazole Magnesium) 40 Mg Cap 40 Mg PO DAILY Furosemide 40 Mg Tablet 40 Mg PO DAILY [place] Aspirin (Aspirin) 81 Mg Tablet.dr 162 Mg PO BID Instructions to patient/family Please see electonic discharge instructions given to patient. BRIGITTE FLORES DO Oct 04, 2016 11:46 Potassium Chloride 8 Meq Tablet.er 8 Meq PO DAILY Metoprolol Tartrate 50 Mg Tablet 25 Mg PO BID TAKES 1/2 OF A (50 MG) TABLET Losartan-Hctz 100-25 mg Tab (Losartan/Hydrochlorothiazide) 1 Each Tablet 1 Tab PO DAILY Amlodipine Besylate 5 Mg Tablet 5 Mg PO HS Nexium (Esomeprazole Magnesium) 40 Mg Cap 40 Mg PO DAILY Furosemide 40 Mg Tablet 40 Mg PO DAILY Pacerone (Amiodarone HCl) 200 Mg Tablet 200 Mg PO [facility] Aspirin (Aspirin) 81 Mg Tablet.dr 162 Mg PO BID Instructions to patient/family Please see electonic discharge instructions given to patient. BRIIGTTE FLORES DO Oct 04, 2016 11:46
--- NOTE | 2016-10-04 13:12 | Therapy Team Discharge Summary ---
Therapy Discharge Summary Discharge Recommendations Date of Discharge Therapy D/C Recommendations: Long-Term (TCU/NH) Physical Therapy Patient admitted to swing bed with Left hip fx, s/p ORIF. Upon admission patient performed bed mobility with mod to max assist and transfers with mod assist, and was ambulating just a few steps in the parallel bars. Patient has been performing bed mobility and transfer training, balance and endurance training, functional strengthening, and gait training, education. Patient has made fair progress but has not met any of his intermediate goals. Now, patient performs bed mobility and transfers with CGA/Divya, ambulates 20' with a rolling walker with CGA/Divya. Patient is being discharged from this facility to a detention to continue to work on his mobility. He will be discharged from PT at this time. PT Logistics Team Leader Goals Logistics Team Leader Goals PT Logistics Team Leader Goals Time Frame: Oct 13, 2016 Transfers (B,C,W/C) (FIM): 5 Sit to Lying (QC): 5 Lying-Sitting on Side/Bed(QC): 5 Sit to Stand (QC): 5 Rollin Chair/Uyj-sb-Bezfy Xfer(QC): 5 Does the Patient Walk: Yes Gait (FIM): 4 Gait distance (FIM): 0=917-52 ft Walk 50ft with 2 Turns (QC): 4 Walk 150 ft (QC): 88 Gait Assistive Device: FWW Does the Pt use WC or Scooter?: Yes Wheelchair (FIM): 88 (NT) OT Logistics Team Leader Goals Alf Goals Time Frame: Oct 12, 2016 Eating (FIM): 6 Eating (QC): 6 Groomin Oral Hygiene (QC): 5 Bathing(FIM): 4 Upper Body Dressing(FIM): 5 Lower Body Dressing(FIM): 5 Toileting(FIM): 5 Toileting Hygiene (QC): 5 Transfers (B,C,W/C) (FIM): 5 Toilet/Commode Transfer(FIM): 5 Toilet/Commode Transfer (QC): 5 Additional Goals: 1-Demonstrate ADL Tasks, 2-Verbalize Understanding, 3- ImproveStrength/Mckinley 1=Demonstrate adherence to instructed precautions during ADL tasks. 2=Patient will verbalize/demonstrate understanding of assistive devices/ modifications for ADL. 3=Patient will improve strength/tolerance for activity to enable patient to perform ADL's. Speech Logistics Team Leader Goals Logistics Team Leader Goals 1. The patient will demonstrate improved cognitive linguistic skills for increased function and safety with ADL's. Time Frame: One Month GODWIN CANDELARIO PT Oct 04, 2016 13:12
[2016-10-04 14:10] VITALS: BP 176/84
--- NOTE | 2016-10-04 14:35 | Therapy Team Discharge Summary ---
Therapy Discharge Summary Discharge Recommendations Date of Discharge 10-04-16 Therapy D/C Recommendations: Snf (TCU/NH) Occupational Therapy Pt. has been seen by occupational therapy to increase overall strength and mobility through functional tasks. During ADLs yesterday, pt. was able to bathe and dress with spongebath with min/set up assist only. Per physical therapy note, pt. required mod assist for transfers and mobility. Not all goals were met at this time, as pt. is discharging to [facility] for skilled care, to increase strength to return home with spouse. Please see goal list for goals met and not met. PT Nursing Home Goals [place] Goals PT Nursing Home Goals Time Frame: Oct 13, 2016 Transfers (B,C,W/C) (FIM): 5 Sit to Lying (QC): 5 Lying-Sitting on Side/Bed(QC): 5 Sit to Stand (QC): 5 Rollin Chair/Cgm-mj-Abpcg Xfer(QC): 5 Does the Patient Walk: Yes Gait (FIM): 4 Gait distance (FIM): 4=521-62 ft Walk 50ft with 2 Turns (QC): 4 Walk 150 ft (QC): 88 Gait Assistive Device: FWW Does the Pt use WC or Scooter?: Yes Wheelchair (FIM): 88 (NT) OT [place] Goals Nursing Home Goals Time Frame: Oct 12, 2016 Eating (FIM): 6 (not met) Eating (QC): 6 (not met) Groomin (met) Oral Hygiene (QC): 5 (met) Bathing(FIM): 4 (met) Upper Body Dressing(FIM): 5 (met) Lower Body Dressing(FIM): 5 (not met) Toileting(FIM): 5 (not met) Toileting Hygiene (QC): 5 (not met) Transfers (B,C,W/C) (FIM): 5 (not met) Toilet/Commode Transfer(FIM): 5 (not met) Toilet/Commode Transfer (QC): 5 (not met) Additional Goals: 1-Demonstrate ADL Tasks, 2-Verbalize Understanding, 3- ImproveStrength/Mckinley 1=Demonstrate adherence to instructed precautions during ADL tasks. 2=Patient will verbalize/demonstrate understanding of assistive devices/ modifications for ADL. 3=Patient will improve strength/tolerance for activity to enable patient to perform ADL's. Speech [place] Goals [place] Goals 1. The patient will demonstrate improved cognitive linguistic skills for increased function and safety with ADL's. Time Frame: One Month ALFREDO STOVALL OT Oct 04, 2016 14:35
== END 2016-10-04 14:10 | DRG 191 ==
LOC: 4TH 12:38
PROVIDERS: ADMIT Family Medicine; ATTEND Family Medicine
DX: J44.1 Chronic obstructive pulmonary disease with (acute) exacerbation (principal); J98.11 Atelectasis; S72.142D Displaced intertrochanteric fracture of left femur, subsequent encounter for closed fracture with routine healing; J45.909 Unspecified asthma, uncomplicated; I25.5 Ischemic cardiomyopathy; I48.91 Unspecified atrial fibrillation; G47.30 Sleep apnea, unspecified; I25.10 Atherosclerotic heart disease of native coronary artery without angina pectoris; F03.90 Unspecified dementia, unspecified severity, without behavioral disturbance, psychotic disturbance, mood disturbance, and anxiety; G62.9 Polyneuropathy, unspecified; K21.9 Gastro-esophageal reflux disease without esophagitis; K59.00 Constipation, unspecified; I25.2 Old myocardial infarction; Z99.81 Dependence on supplemental oxygen; Z95.810 Presence of automatic (implantable) cardiac defibrillator; Z95.1 Presence of aortocoronary bypass graft; Z95.5 Presence of coronary angioplasty implant and graft; Z79.01 Long term (current) use of anticoagulants; Z87.891 Personal history of nicotine dependence; V00.8 Accident on other pedestrian conveyance
CPT/HCPCS: 36415; 71020; 80048; 80053; 85025; 85610; 94640; 94760

== ENCOUNTER → 2016-12-12 | Outpatient (CLI) | payer MEDICARE, MEDICAID ==
[~2016-12-12] MED LIST changes: +IPRA3AMP INH; +LOSA50TA36 PO; +OXYC-471 PO; +POLY17PO23 PO; +SENN-140 PO; +TAMS0.4C98 PO; +TRAM50TA2 PO; +WARF5TAB PO
[2016-12-12 11:53] LABS: ANION GAP 10 MMOL/L (5-14); BLOOD UREA NITROGEN 10 MG/DL (7-18); BUN/CREATININE RATIO 13; CALCIUM 9.7 MG/DL (8.5-10.1); CARBON DIOXIDE 31 MMOL/L (21-32); CHLORIDE 96 MMOL/L (98-107); CREATININE SERUM 0.79 MG/DL (0.60-1.30); GFR ESTIMATED > 60; GLUCOSE 100 MG/DL (70-105); POTASSIUM 3.1 MMOL/L (3.6-5.0); SODIUM 137 MMOL/L (135-145)
== END ==
LOC: HH 10:30
PROVIDERS: ATTEND Internal Medicine
DX: I50.9 Heart failure, unspecified (principal)
CPT/HCPCS: 80048

== ENCOUNTER → 2016-12-28 | Outpatient (CLI) | payer MEDICARE, MEDICAID ==
[2016-12-28 13:02] LABS: ANION GAP 14 MMOL/L (5-14); BLOOD UREA NITROGEN 13 MG/DL (7-18); BUN/CREATININE RATIO 14; CALCIUM 9.5 MG/DL (8.5-10.1); CARBON DIOXIDE 26 MMOL/L (21-32); CHLORIDE 97 MMOL/L (98-107); CREATININE SERUM 0.94 MG/DL (0.60-1.30); GFR ESTIMATED > 60; GLUCOSE 162 MG/DL (70-105); SODIUM 137 MMOL/L (135-145)
== END ==
LOC: HH 12:31
PROVIDERS: ATTEND Internal Medicine
DX: I50.32 Chronic diastolic (congestive) heart failure (principal)
CPT/HCPCS: 80048

== ENCOUNTER 2017-03-17 11:15 | Emergency (ER) | payer MEDICARE, MEDICAID ==
[~2017-03-17] VITALS: Ht 167.6 cm; Wt 94.1 kg
[2017-03-17 11:59] LABS: BASOPHILS % (AUTO) 0 % (0-10); EOSINOPHILS # (AUTO) 0.3 10^3/uL (0.0-0.3); EOSINOPHILS % (AUTO) 3 % (0-10); LYMPHOCYTES # (AUTO) 1.4 X 10^3 (1.0-4.0); LYMPHOCYTES % (AUTO) 15 % (12-44); MEAN CORPUSCULAR HEMOGLOBIN 29 PG (25-34); MEAN CORPUSCULAR HGB CONC 32 G/DL (32-36); MEAN CORPUSCULAR VOLUME 92 FL (80-99); MEAN PLATELET VOLUME 9.9 FL (7.4-10.4); MONOCYTES # (AUTO) 1.1 X 10^3 (0.0-1.0); MONOCYTES % (AUTO) 12 % (0-12); NEUTROPHILS # (AUTO) 6.6 X 10^3 (1.8-7.8); NEUTROPHILS % (AUTO) 70 % (42-75); PLATELET COUNT 228 10^3/uL (130-400); RED BLOOD COUNT 4.46 10^6/uL (4.35-5.85); RED CELL DISTRIBUTION WIDTH 17.8 % (10.0-14.5); WHITE BLOOD COUNT 9.4 10^3/uL (4.3-11.0)
[2017-03-17 12:09] LABS: BILIRUBIN,URINE NEGATIVE (NEGATIVE); KETONES,URINE NEGATIVE (NEGATIVE); LEUKOCYTE ESTERASE ,URINE 3+ (NEGATIVE); NITRITE,URINE POSITIVE (NEGATIVE); PH,URINE 7 (5-9); PROTEIN,URINE 1+ (NEGATIVE); UROBILINOGEN,URINE NORMAL (NORMAL)
--- NOTE | 2017-03-17 12:18 | ED EENT ---
History of Present Illness General Chief Complaint: Nasal Problems Stated Complaint: NOSE BLEED Nursing Triage Note: Third nose bleed this week. On O2 at night without humidity. When ems arrived , family was dabbing nose, no pressure, trickle of blood noted. pressure held times 10 min for hemostasis, nose has crusting blood but no active bleed. denies c/o Source: patient, spouse Exam Limitations: no limitations History of Present Illness Time seen by provider: 12:18 Allergies and Home Medications Allergies Coded Allergies: Penicillins (Verified Allergy, Severe, HIVES, SOB, 07/02/15) codeine (Verified Allergy, Severe, SOB, HIVES, 07/02/15) Home Medications Amiodarone HCl 200 Mg Tablet, 200 MG PO DAILY for 30 Days Prescribed by: BRIGITTE LEMA on 10/04/16 1140 Amlodipine Besylate 5 Mg Tablet, 5 MG PO HS, (Reported) Aspirin 81 Mg Tablet.dr, 162 MG PO BID, (Reported) Digoxin 125 Mcg Tablet, 125 MCG PO DAILY, (Reported) Esomeprazole Magnesium 40 Mg Cap, 40 MG PO DAILY, (Reported) Fluticasone Propionate 1 Ea Aero, 2 PUFF IH PRN, (Reported) Furosemide 40 Mg Tablet, 40 MG PO DAILY, (Reported) Ipratropium/Albuterol Sulfate 3 Ml Ampul.neb, 3 ML INH RTQ4HR for 30 Days Prescribed by: BRIGITTE LEMA on 10/04/16 1146 Losartan Potassium 50 Mg Tablet, 100 MG PO DAILY for 30 Days Prescribed by: BRIGITTE LEMA on 10/04/16 1140 Metoprolol Tartrate 50 Mg Tablet, 25 MG PO BID for 30 Days Prescribed by: BRIGITTE LEMA on 10/04/16 1140 Mexiletine HCl 150 Mg Cap, 150 MG PO TID, (Reported) Oxycodone HCl/Acetaminophen 1 Each Tablet, 1-2 TAB PO Q4H PRN for SEVERE PAIN, # 60 Prescribed by: BRIGITTE LEMA on 10/04/16 1140 Polyethylene Glycol 3350 17 Gm Powd.pack, 17 GM PO DAILY for 30 Days Prescribed by: BRIGITTE LEMA on 10/04/16 1140 Potassium Chloride 8 Meq Tablet.er, 8 MEQ PO DAILY, (Reported) Sennosides 8.6 Mg Tablet, 8.6 MG PO BID for 30 Days Prescribed by: BRIGITTE LEMA on 10/04/16 1140 Tamsulosin HCl 0.4 Mg Cap, 0.4 MG PO HS for 30 Days Prescribed by: BRIGITTE LEMA on 10/04/16 1140 Tramadol HCl 50 Mg Tablet, 50 MG PO Q4H PRN for MODERATE PAIN, #30 Prescribed by: BRIGITTE LEMA on 10/04/16 1140 Warfarin Sodium 5 Mg Tablet, 5 MG PO DAILY@1800 for 30 Days Prescribed by: BRIGITTE LEMA on 10/04/16 1140 Past Gtjcwns-Ycpmtg-Yrilyb Hx Patient Social History Alcohol Use: Denies Use Recreational Drug Use: No Type Used: Cigarettes Former Smoker/When Quit: Aug 02, 1987 2nd Hand Smoke Exposure: No Recent Foreign Travel: No Contact w/Someone Who Travel: No Recent Infectious Disease Expo: No Recent Hopitalizations: Yes (fx hip) Immunizations Up To Date Tetanus Booster (TDap): More than 5yrs Date of Pneumonia Vaccine: Apr 29, 2014 Date of Influenza Vaccine: Jul 03, 2016 Seasonal Allergies Seasonal Allergies: No Surgeries HX Surgeries: Yes (skin cancer removal, cataract surgery, cardiac stents ) Surgeries: CABG, Coronary Stent, Defibrillator, Eye Surgery Respiratory Hx Respiratory Disorders: Yes Respiratory Disorders: Asthma, Chronic Bronchitis, Sleep Apnea Cardiovascular Hx Cardiac Disorders: Yes (CABG) Cardiac Disorders: Coronary Artery Disease, Heart Attack Neurological Hx Neurological Disorders: Yes Neurological Disorders: Dementia, Neuropathy Reproductive System Hx Reproductive Disorders: Yes (unable to have children- mumps as a child) Sexually Transmitted Disease: No HIV/AIDS: No Genitourinary Hx Genitourinary Disorders: Yes (current uti) Genitourinary Disorders: Kidney Stones Gastrointestinal Hx Gastrointestinal Disorders: Yes Gastrointestinal Disorders: Gastroesophageal Reflux, Ulcer Musculoskeletal Hx Musculoskeletal Disorders: Yes Musculoskeletal Disorders: Arthritis, Fractures Endocrine Hx Endocrine Disorders: No HEENT HX ENT Disorders: Yes HEENT Disorders: Cataract, Glaucoma Loss of Vision: Bilateral Hearing Impairment: Hard of Hearing Cancer Hx Cancer: Yes Cancer: Skin Psychosocial Hx Psychiatric Problems: Yes Behavioral Health Disorders: Depression Integumentary HX Skin/Integumentary Disorder: Yes (shingles ) Blood Transfusions Hx Blood Disorders: No Adverse Reaction to a Blood Tr: No Family Medical History Significant Family History: No Pertinent Family Hx Family Medial History: Cardiovascular disease 19 MOTHER G8 BROTHER G8 SISTER Cervical cancer 19 MOTHER Physical Exam Vital Signs Vital Sign - Last 12Hours 03/17/17 11:20 Temp 98.0 Pulse 94 Resp 18 B/P (MAP) 164/84 Pulse Ox 91 Progress/Results/Core Measures Results/Orders Lab Results Laboratory Tests Test 03/17/17 11:30 03/17/17 11:32 Range/Units White Blood Count 9.4 4.3-11.0 10^3/uL Red Blood Count 4.46 4.35-5.85 10^6/uL Hemoglobin 13.1 L 13.3-17.7 G/DL Hematocrit 41 40-54 % Mean Corpuscular Volume 92 80-99 FL Mean Corpuscular Hemoglobin 29 25-34 PG Mean Corpuscular Hemoglobin Concent 32 32-36 G/DL Red Cell Distribution Width 17.8 H 10.0-14.5 % Platelet Count 228 130-400 10^3/uL Mean Platelet Volume 9.9 7.4-10.4 FL Neutrophils (%) (Auto) 70 42-75 % Lymphocytes (%) (Auto) 15 12-44 % Monocytes (%) (Auto) 12 0-12 % Eosinophils (%) (Auto) 3 0-10 % Basophils (%) (Auto) 0 0-10 % Neutrophils # (Auto) 6.6 1.8-7.8 X 10^3 Lymphocytes # (Auto) 1.4 1.0-4.0 X 10^3 Monocytes # (Auto) 1.1 H 0.0-1.0 X 10^3 Eosinophils # (Auto) 0.3 0.0-0.3 10^3/uL Basophils # (Auto) 0.0 0.0-0.1 10^3/uL Urine Color YELLOW Urine Clarity SLIGHTLY CLOUDY Urine pH 7 5-9 Urine Specific [place] 1.010 L 1.016-1.022 Urine Protein 1+ H NEGATIVE Urine Glucose (UA) NEGATIVE NEGATIVE Urine Ketones NEGATIVE NEGATIVE Urine Nitrite POSITIVE H NEGATIVE Urine Bilirubin NEGATIVE NEGATIVE Urine Urobilinogen NORMAL NORMAL MG/DL Urine Leukocyte Esterase 3+ H NEGATIVE Urine RBC (Auto) 4+ H NEGATIVE Urine RBC NONE /HPF Urine WBC TNTC H /HPF Urine Crystals NONE /LPF Urine Bacteria LARGE H /HPF Urine Casts NONE /LPF Urine Mucus NEGATIVE /LPF Urine Culture Indicated YES My Orders Orders - JUAN GANT Oxymetazoline 0.05% Nasal [place] (Afrin 0. (03/17/17 21:00) Benzonatate Capsule (Tessalon Perles) (03/17/17 12:45) Vital Signs/I&O Vital Sign - Last 12Hours 03/17/17 11:20 Temp 98.0 Pulse 94 Resp 18 B/P (MAP) 164/84 Pulse Ox 91 Blood Pressure Mean: 110 Departure Impression Impression: Primary Impression: Epistaxis Additional Impressions: Urinary tract infection History of COPD Disposition: HOME, SELF-CARE Condition: Improved Departure-Patient Inst. Decision time for Depature: 12:57 Referrals: ABHINAV GONZALEZ MD (PCP/Family) Primary Care Physician Patient Instructions: Nosebleeds (DC), Urinary Tract Infection, Adult (DC) Add. Discharge Instructions: All discharge instructions reviewed with patient and/or family. Voiced understanding. Medications as instructed. Stop aspirin for 7 days. Do NOT blow your nose for 3-4 days. If nosebleed recurs, apply as clamp for 5-10 minutes and apply an ice pack. Use humidified air with your oxygen. Afrin nasal spray 2 sprays in each nostril twice daily for 3 days. Saline nasal spray mrrb-dpr-[id number] as 4-6 times daily as needed. Follow-up with Dr. Gonzalez as previously scheduled. Return to the emergency department for worsened symptoms or any other concerns. Scripts Benzonatate (Benzonatate) 200 Mg Capsule 200 MG PO BID Y for COUGH, #30 CAP 0 Refills Prov: JUAN GANT 03/17/17 Nitrofurantoin Monohyd/M-Cryst (Macrobid 100 mg Capsule) 100 Mg Capsule 1 TAB PO BID, #20 CAP 0 Refills Prov: JUAN GANT 03/17/17 JUAN GANT Mar 17, 2017 12:18
[2017-03-17] MEDS ORDERED: BENZONATATE 100 MG (TESSALON) CAPSULE PO SCH (12:45)
[2017-03-17 12:46] LABS: WBC,URINE TNTC /HPF
[2017-03-17] MEDS ORDERED: BENZ200C51 PO (12:57)
[2017-03-17] MEDS ORDERED: NITR-65 PO (12:57)
[2017-03-17] MEDS ORDERED: NITROFURANTOIN 100 MG (MACROBID) CAPSULE PO ONE (13:00)
[2017-03-17] MEDS ORDERED: OXYMETAZOLINE (AFRIN) 0.05% NA 15 ML BTL ONE (13:13)
[2017-03-17 13:30] VITALS: BP 150/70
[2017-03-17] MEDS ORDERED: OXYMETAZOLINE (AFRIN) 0.05% NA 15 ML BTL SCH (21:00)
[2017-03-17] MEDS ORDERED: MENTHOL/ZINC OXIDE (CALMOSEPTINE) 113 GM TUBE TOP SCH (21:00)
--- OUTSIDE RECORDS SUMMARY | 2017-03-18 02:05 | XMS REPORT ---
Author Author RENEA WEEKS [facility] eClinicalWorks Address Unknown Phone Unavailable Care Team Providers Care Cattle Broker Name Role Phone RENEA WEEKS Unavailable Allergies No Known Allergies Problems Problem Type Condition Code Onset Dates Condition Status Problem Chronic congestive heart failure, unspecified congestive heart failure type I50.9 Active Problem Cardiac defibrillator in place Z95.810 Active Problem Coronary artery disease involving [place] coronary artery of [place] heart without angina pectoris I25.10 Active Medications No Known Medications Results No Known Results Summary Purpose eClinicalWorks Submission
--- OUTSIDE RECORDS SUMMARY | 2017-03-18 02:05 | XMS REPORT ---
Author Author ABHINAV GONZALEZ [facility] Address [address] [place] [address] Care Team Providers Care Liquor Gallery Operator Name Role Phone ABHINAV GONZALEZ Unavailable PROBLEMS Type Condition ICD9-CM Code [id number] Code Onset Dates Condition Status SNOMED Code Problem Stasis dermatitis of both legs I87.2 Active 35845692 Problem Chronic obstructive pulmonary disease, unspecified COPD type J44.9 Active 40923656 Problem Chronic congestive heart failure, unspecified congestive heart failure type I50.9 Active 27811213 Problem Cardiac defibrillator in place Z95.810 Active 331335635 Problem Essential hypertension I10 Active 19555973 Problem Coronary artery disease involving [place] coronary artery of [place] heart without angina pectoris I25.10 Active [id number] ALLERGIES Unknown Allergies SOCIAL HISTORY No smoking Hx information available PLAN OF CARE VITAL SIGNS MEDICATIONS Unknown Medications RESULTS No Results PROCEDURES No Known procedures IMMUNIZATIONS No Known Immunizations
--- OUTSIDE RECORDS SUMMARY | 2017-03-18 02:07 | XMS REPORT ---
Author Author RENEA WEEKS [facility] eClinicalWorks Address Unknown Phone Unavailable Care Team Providers Care Aircraft Armament Mechanic Name Role Phone RENEA WEEKS CP Unavailable Allergies, Adverse Reactions, Alerts Substance Reaction Event Type Penicillin V Potassium Info Not Available Drug Allergy Codeine Phosphate Info Not Available Drug Allergy Problems Problem Type Condition Code Onset Dates Condition Status Problem Chronic congestive heart failure, unspecified congestive heart failure type I50.9 Active Problem Cardiac defibrillator in place Z95.810 Active Problem Coronary artery disease involving [place] coronary artery of [place] heart without angina pectoris I25.10 Active Assessment Acute deep vein thrombosis (DVT) of femoral vein of right lower extremity I82.411 Active Assessment Pain of right lower extremity M79.604 Active Assessment History of atrial fibrillation without current medication Z86.79 Active Medications Medication Code System Code Instructions Start Date End Date Status Dosage Metoprolol Tartrate [facility] [address]-83 50 mg Orally Twice a day 1/ 2 tablet with food Amlodipine Besylate [facility] [address]-51 5 MG Orally Once a day 1 tablet Furosemide [facility] [address]-55 40 MG Orally Once a day 1 tablet Potassium ND 0 Oral 1 tab Losartan Potassium-HCTZ [facility] [address]-59 100-25 MG Orally Once a day 1 tablet Aspirin [facility] [address]-57 81 MG Orally Once a day 1 tablet Amiodarone HCl [facility] [address]-87 200 MG Orally Once a day 1 tablet Flovent HFA [facility] [address]-99 220 MCG/ACT Inhalation Twice a day 1 puff Clobetasol Prop Emollient Base [facility] [address]-30 0.05 % Externally Twice a day 1 application to affected area Nexium [facility] [address]-12 40 MG Orally Once a day 1 capsule Digoxin [facility] [address]-86 125 MCG Orally Once a day 1 tablet Procedures Procedure Coding System Code Date Office Visit, Est Pt., Level 3 CPT-4 98315 Jun 23, 2016 [facility] VISIT ESTABLISHED PATIENT CPT-4 G0467 Jun 23, 2016 Vital Signs Date/Time: Jun 23, 2016 Cardiac Monitoring Heart Rate 84 bpm Weight 216.0 lbs Height 65 in BMI 35.94 Index Blood Pressure Diastolic 78 mmHg Blood Pressure Systolic 150 mmHg Results Name Result Date Reference Range Unit Abnormality Flag Ultrasound : Arterial Doppler, Lower Extremity Summary Purpose eClinicalWorks Submission
--- OUTSIDE RECORDS SUMMARY | 2017-03-18 02:08 | XMS REPORT ---
Author Author ABHINAV GONZALEZ [facility] Address [address] [place] [address] Care Team Providers Care Drill Foreman Name Role Phone ABHINAV GONZALEZ Unavailable PROBLEMS Type Condition ICD9-CM Code [id number] Code Onset Dates Condition Status SNOMED Code Problem Stasis dermatitis of both legs I87.2 Active 37063567 Problem Chronic obstructive pulmonary disease, unspecified COPD type J44.9 Active 76736944 Problem Chronic congestive heart failure, unspecified congestive heart failure type I50.9 Active 90818692 Problem Cardiac defibrillator in place Z95.810 Active 751913680 Problem Essential hypertension I10 Active 92335257 Problem Coronary artery disease involving [place] coronary artery of [place] heart without angina pectoris I25.10 Active [id number] ALLERGIES Unknown Allergies SOCIAL HISTORY No smoking Hx information available PLAN OF CARE VITAL SIGNS MEDICATIONS Unknown Medications RESULTS No Results PROCEDURES No Known procedures IMMUNIZATIONS No Known Immunizations
--- OUTSIDE RECORDS SUMMARY | 2017-03-18 02:08 | XMS REPORT ---
Author Author ABHINAV GONZALEZ Organization [employer] Address Unknown Phone Unavailable Care Team Providers Care Youth Ministry Director Name Role Phone ABHINAV GONZALEZ Unavailable Allergies No Known Allergies Problems Problem Type Condition Code Onset Dates Condition Status Problem Chronic congestive heart failure, unspecified congestive heart failure type I50.9 Active Problem Cardiac defibrillator in place Z95.810 Active Problem Coronary artery disease involving [place] coronary artery of [place] heart without angina pectoris I25.10 Active Medications No Known Medications Results No Known Results Summary Purpose [employer] Submission
--- OUTSIDE RECORDS SUMMARY | 2017-03-18 02:08 | XMS REPORT ---
Author Author ABHINAV GONZALEZ Organization [employer] Address Unknown Phone Unavailable Care Team Providers Care Peer Tutor Name Role Phone ABHINAV GONZALEZ Unavailable Allergies No Known Allergies Problems Problem Type Condition Code Onset Dates Condition Status Problem Chronic congestive heart failure, unspecified congestive heart failure type I50.9 Active Problem Cardiac defibrillator in place Z95.810 Active Problem Coronary artery disease involving [place] coronary artery of [place] heart without angina pectoris I25.10 Active Medications No Known Medications Results No Known Results Summary Purpose [employer] Submission
--- OUTSIDE RECORDS SUMMARY | 2017-03-18 02:08 | XMS REPORT ---
Author Author ABHINAV GONZALEZ [facility] Address [address] [place] [address] Care Team Providers Care Financial Dealers Name Role Phone ABHINAV GONZALEZ Unavailable PROBLEMS Type Condition ICD9-CM Code [id number] Code Onset Dates Condition Status SNOMED Code Problem Coronary artery disease involving [place] coronary artery of [place] heart without angina pectoris I25.10 Active 1907200897142 Problem Chronic congestive heart failure, unspecified congestive heart failure type I50.9 Active 15342540 Problem Cardiac defibrillator in place Z95.810 Active 996853407 Assessment Chronic congestive heart failure, unspecified congestive heart failure type I50.9 May, Active 96761772 ALLERGIES Substance Reaction Event Type Date Status Penicillin V Potassium Unknown Drug Allergy May, Active Codeine Phosphate Unknown Drug Allergy May, Active SOCIAL HISTORY No smoking Hx information available PLAN OF CARE VITAL SIGNS Height 65 in 2016-06-26 Weight 214.5 lbs 2016-06-26 Heart Rate 84 bpm 2016-06-26 Respiratory Rate 22 2016-06-26 BMI 35.69 kg/m2 2016-06-26 Blood pressure systolic 134 mmHg 2016-06-26 Blood pressure diastolic 80 mmHg 2016-06-26 MEDICATIONS Medication Instructions Dosage Frequency Start Date End Date Duration Status Amlodipine Besylate 5 MG Orally Once a day 1 tablet 24h Active Metoprolol Tartrate 50 mg Orally Twice a day 1/2 tablet with food 12h Active Digoxin 125 MCG Orally Once a day 1 tablet 24h Active Clobetasol Prop Emollient Base 0.05 % Externally Twice a day 1 application to affected area 12h Active Nexium 40 MG Orally Once a day 1 capsule 24h Active Losartan Potassium-HCTZ 100-25 MG Orally Once a day 1 tablet 24h Active Potassium 1 tab Active Furosemide 40 MG Orally Once a day 1 tablet 24h Active Aspirin 81 MG Orally Once a day 1 tablet 24h Active Amiodarone HCl 200 MG Orally Once a day 1 tablet 24h Active Flovent HFA 220 MCG/ACT Inhalation Twice a day 1 puff 12h Active RESULTS No Results PROCEDURES Procedure Date Ordered Related Diagnosis Body Site [facility] VISIT ESTABLISHED PATIENT Jun 26, 2016 Office Visit, Est Pt., Level 2 Jun 26, 2016 IMMUNIZATIONS No Known Immunizations
--- OUTSIDE RECORDS SUMMARY | 2017-03-18 02:08 | XMS REPORT ---
Author Author RENEA WEEKS [facility] [employer] Address Unknown Phone Unavailable Care Team Providers Care Sand Sifter Name Role Phone RENEA WEEKS Unavailable Allergies No Known Allergies Problems Problem Type Condition Code Onset Dates Condition Status Problem Chronic congestive heart failure, unspecified congestive heart failure type I50.9 Active Problem Cardiac defibrillator in place Z95.810 Active Problem 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.10 Active Medications No Known Medications Results No Known Results Summary Purpose [employer] Submission
--- OUTSIDE RECORDS SUMMARY | 2017-03-18 02:08 | XMS REPORT ---
Author Author RENEA WEEKS [facility] [employer] Address Unknown Phone Unavailable Care Team Providers Care Pe Electrical Engineer Name Role Phone RENEA WEEKS Unavailable Allergies No Known Allergies Problems Problem Type Condition Code Onset Dates Condition Status Problem Chronic congestive heart failure, unspecified congestive heart failure type I50.9 Active Problem Cardiac defibrillator in place Z95.810 Active Problem Coronary artery disease involving [place] coronary artery of [place] heart without angina pectoris I25.10 Active Medications No Known Medications Results No Known Results Summary Purpose [employer] Submission
== END 2017-03-17 13:30 | disposition home or self-care (01) ==
LOC: EDUNIT# 11:15 → ER 11:16
DX: R04.0 Epistaxis (principal); N39.0 Urinary tract infection, site not specified; J45.909 Unspecified asthma, uncomplicated; G47.30 Sleep apnea, unspecified; I25.10 Atherosclerotic heart disease of native coronary artery without angina pectoris; I25.2 Old myocardial infarction; F03.90 Unspecified dementia, unspecified severity, without behavioral disturbance, psychotic disturbance, mood disturbance, and anxiety; K21.9 Gastro-esophageal reflux disease without esophagitis; M19.90 Unspecified osteoarthritis, unspecified site; F32.9 Major depressive disorder, single episode, unspecified; Z87.19 Personal history of other diseases of the digestive system; Z82.49 Family history of ischemic heart disease and other diseases of the circulatory system; Z79.82 Long term (current) use of aspirin; Z79.01 Long term (current) use of anticoagulants; Z87.442 Personal history of urinary calculi; Z87.891 Personal history of nicotine dependence; Z85.828 Personal history of other malignant neoplasm of skin; Z95.5 Presence of coronary angioplasty implant and graft; Z95.1 Presence of aortocoronary bypass graft; Z95.810 Presence of automatic (implantable) cardiac defibrillator
CPT/HCPCS: 36415; 81000; 85025; 87077; 87088; 87186; 99283

== ENCOUNTER 2017-06-21 16:33 | Inpatient (IN) | payer MEDICARE, MEDICAID ==
[~2017-06-21] VITALS: Ht 165.1 cm; Wt 94.3 kg
[~2017-06-21 16:33] MED LIST changes: +BENZ200C51 PO; +LOSA1TAB23 PO; -LOSA1TAB70 PO; +NITR-65 PO
--- OUTSIDE RECORDS SUMMARY | 2017-06-21 16:38 | XMS REPORT ---
Author Author ABHINAV GONZALEZ [facility] Address [address] [place] [address] Care Team Providers Care Regulatory Compliance Engineer Name Role Phone ABHINAV GONZALEZ Unavailable PROBLEMS Type Condition ICD9-CM Code [id number] Code Onset Dates Condition Status SNOMED Code Problem Stasis dermatitis of both legs I87.2 Active 53890000 Problem Chronic obstructive pulmonary disease, unspecified COPD type J44.9 Active 23649627 Problem Cardiac defibrillator in place Z95.810 Active 808509492 Problem Chronic congestive heart failure, unspecified congestive heart failure type I50.9 Active 29711222 Problem Essential hypertension I10 Active 27451448 Problem Coronary artery disease involving [place] coronary artery of [place] heart without angina pectoris I25.10 Active [id number] ALLERGIES No Information SOCIAL HISTORY Never Assessed PLAN OF CARE VITAL SIGNS MEDICATIONS Medication Instructions Dosage Frequency Start Date End Date Duration Status Coumadin 5 MG Orally Once a day 1 tablet 24h Active Furosemide 40 MG Orally Once a day 1 tablet 24h Active Amlodipine Besylate 5 MG Orally Once a day 1 tablet 24h Active Klor-Con 8 MEQ Orally Once a day 1 tablet 24h Active Digoxin 125 MCG Orally Once a day 1 tablet 24h Active Losartan Potassium 100 MG Orally Once a day 1 tablet 24h Active Tramadol HCl 50 mg Orally every 4 hrs 1 tablet as needed 4h Sep, 30 days Active Aspirin 162.5 MG Orally twice a day 1 tablet 12h Active Amiodarone HCl 200 MG Orally Once a day 1 tablet 24h Active Flovent HFA 220 MCG/ACT Inhalation Twice a day 1 puff 12h Active Nexium 40 MG Orally Once a day 1 capsule 24h Active Oxycodone-Acetaminophen 5-325 MG Orally every 6 hrs 1-2 tablets as needed 6h Sep, 30 days Active Metoprolol Tartrate 50 mg Orally Twice a day 1/2 tablet with food 12h Active Mexiletine HCl 150 MG Orally every 8 hrs 1 capsule 8h Active Tamsulosin HCl 0.4 MG Orally Once a day 1 capsule 24h Active Senna 8.6 MG Orally twice a day 1 tablet 12h Active MiraLax 17 gm/dose Orally Once a day 17 grams mixed in 8 oz of water or juice 24h Active RESULTS No Results PROCEDURES No Known procedures IMMUNIZATIONS No Known Immunizations MEDICAL (GENERAL) HISTORY Type Description Date Medical History hypertension Medical History skin cancer-arms, face Medical History [place] Surgical History heart cath-2 stents, multiple balloons Surgical History open heart surgery 1987 Surgical History defibrillator placed 2013 Hospitalization History surgery Hospitalization History pneumonia 2014 Hospitalization History broken left hip at September
--- OUTSIDE RECORDS SUMMARY | 2017-06-21 16:40 | XMS REPORT ---
Author Author ABHINAV GONZALEZ [facility] Address [address] [place] [address] Care Team Providers Care Field Organizer Name Role Phone ABHINAV GONZALEZ Unavailable PROBLEMS Type Condition ICD9-CM Code [id number] Code Onset Dates Condition Status SNOMED Code Problem Chronic congestive heart failure, unspecified congestive heart failure type I50.9 Active 47418218 Problem Ventricular arrhythmia I49.9 Active 83259290 Problem Stasis dermatitis of both legs I87.2 Active 10869260 Problem Coronary artery disease involving [place] coronary artery of [place] heart without angina pectoris I25.10 Active 5515786159787 Problem Cardiac defibrillator in place Z95.810 Active 300809984 Problem Chronic obstructive pulmonary disease, unspecified COPD type J44.9 Active 13804972 Problem Essential hypertension I10 Active 28932257 ALLERGIES Substance Reaction Event Type Date Status Penicillin V Potassium Unknown Drug Allergy November, Active Codeine Phosphate Unknown Drug Allergy November, Active SOCIAL HISTORY Never Assessed PLAN OF CARE Activity Details Follow Up prn Reason: VITAL SIGNS Height 65 in 2016-12-01 Temperature 98.3 degrees Fahrenheit 2016-12-01 Heart Rate 82 bpm 2016-12-01 Respiratory Rate 20 2016-12-01 Blood pressure systolic 112 mmHg 2016-12-01 Blood pressure diastolic 68 mmHg 2016-12-01 MEDICATIONS Medication Instructions Dosage Frequency Start Date End Date Duration Status Amiodarone HCl 200 MG Orally Once a day 1 tablet 24h Active Nexium 40 MG Orally Once a day 1 capsule 24h Active ProAir HFA 108 (90 Base) MCG/ACT Inhalation 4 times a day 2 puffs as needed 6h November, 30 days Active Digoxin 125 MCG Orally Once a day 1 tablet 24h Active Tramadol HCl 50 mg Orally every 4 hrs 1 tablet as needed 4h Sep, 30 days Active Klor-Con 8 MEQ Orally Once a day 1 tablet 24h Active Aspirin 162.5 MG Orally twice a day 1 tablet 12h Active Flovent HFA 220 MCG/ACT Inhalation Twice a day 1 puff 12h Active Furosemide 40 MG Orally Once a day 1 tablet 24h Active Mexiletine HCl 150 MG Orally every 8 hrs 1 capsule 8h Active Amlodipine Besylate 5 MG Orally Once a day 1 tablet 24h Active MiraLax 17 gm/dose Orally Once a day 17 grams mixed in 8 oz of water or juice 24h Active Oxycodone-Acetaminophen 5-325 MG Orally every 6 hours as needed 1 tablet Sep, Active RESULTS Name Result Date Reference Range [facility] 2016-12-01 Glucose, Serum 95 65-99 BUN 9 8-27 Creatinine, Serum 0.74 0.76-1.27 eGFR If NonAfricn Am 91 >59 eGFR If Africn Am 105 >59 BUN/Creatinine Ratio 12 10-24 Sodium, Serum 140 134-144 Potassium, Serum 3.5 3.5-5.2 Chloride, Serum 95 96-106 Carbon Dioxide, Total 25 18-29 Calcium, Serum 9.4 8.6-10.2 PROCEDURES Procedure Date Ordered Result [facility], [facility] VENIP[place], ROUTINE* December 01, 2016 [facility] VISIT ESTABLISHED PATIENT December 01, 2016 IMMUNIZATIONS No Known Immunizations MEDICAL (GENERAL) HISTORY Type Description Date Medical History hypertension Medical History skin cancer-arms, face Medical History [place] Surgical History heart cath-2 stents, multiple balloons Surgical History open heart surgery 1987 Surgical History defibrillator placed 2013 Hospitalization History surgery Hospitalization History pneumonia 2014 Hospitalization History broken left hip at September
--- OUTSIDE RECORDS SUMMARY | 2017-06-21 16:40 | XMS REPORT ---
Author Author ABHINAV GONZALEZ [facility] Address [address] [place] [address] Care Team Providers Care Preschool Assistant Name Role Phone ABHINAV GONZALEZ Unavailable PROBLEMS Type Condition ICD9-CM Code [id number] Code Onset Dates Condition Status SNOMED Code Problem Stasis dermatitis of both legs I87.2 Active 44441635 Problem Chronic obstructive pulmonary disease, unspecified COPD type J44.9 Active 86451625 Problem Cardiac defibrillator in place Z95.810 Active 640900461 Problem Chronic congestive heart failure, unspecified congestive heart failure type I50.9 Active 24328946 Problem Essential hypertension I10 Active 43158641 Problem Coronary artery disease involving [place] coronary artery of [place] heart without angina pectoris I25.10 Active [id number] ALLERGIES No Information SOCIAL HISTORY Never Assessed PLAN OF CARE VITAL SIGNS MEDICATIONS Medication Instructions Dosage Frequency Start Date End Date Duration Status Oxycodone-Acetaminophen 5-325 MG Orally 2 times a day 1 tablet 12h Sep, 28 days Active RESULTS No Results PROCEDURES No Known procedures IMMUNIZATIONS No Known Immunizations MEDICAL (GENERAL) HISTORY Type Description Date Medical History hypertension Medical History skin cancer-arms, face Medical History [place] Surgical History heart cath-2 stents, multiple balloons Surgical History open heart surgery 1987 Surgical History defibrillator placed 2013 Hospitalization History surgery Hospitalization History pneumonia 2014 Hospitalization History broken left hip at September
--- NOTE | 2017-06-21 16:56 | ED Respiratory ---
General Stated Complaint: FEVER,COUGH Source: patient (PT IS LIMITED HISTORIAN--HX OF DEMENTIA), old records, spouse ( GIVES MOST INFORMATION) History of Present Illness Time seen by provider: 16:40 Initial Comments PT ARRIVES VIA POV FROM HOME PT HAS HAD SUBJECTIVE FEVER SINCE YESTERDAY--WAS 100 DEGREES JUST PRIOR TO ARRIVAL, AND GAVE HIM TYLENOL JUST PRIOR TO ARRIVAL PT HAS HAD PRODUCTIVE COUGH SINCE HE MOVED BACK HOME IN NOVEMBER, [place] THE [facility] ( HAD HIP FRACTURE AND WENT TO [facility] FOR [facility]YSICAL TH[facility]APY) --COUGH COMES AND GOES, AND IS PRESENT NOW AND WORSE THE LAST FEW DAYS HAS WHITE SPUTUM PT NORMALLY IS SHORT OF BREATH--HAS COPD, AND PT STATES SHORTNESS OF BREATH IS NO WORSE THAN NORMAL. PT NORMALLY WEARS O2 AT HS, BUT NOT AT ALL DURING THE DAY NO CHEST PAIN PT HAS CHRONIC SWELLING AND REDNESS TO LEGS-- STATES IS BETTER THAN IT HAS BEEN. PT HAS HX OF CHF, HIS NOON DIURETIC WAS HELD TODAY DUE TO PT NOT WANTING TO GET UP AND GO TO BATHROOM ALL THE TIME PCP: DR. 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 KATZ Allergies and Home Medications Allergies Coded Allergies: Penicillins (Verified Allergy, Severe, HIVES, SOB, 07/02/15) codeine (Verified Allergy, Severe, SOB, HIVES, 07/02/15) Home Medications Amiodarone HCl 200 Mg Tablet, 200 MG PO DAILY for 30 Days Prescribed by: BRIGITTE LEMA on 10/04/16 1140 Amlodipine Besylate 5 Mg Tablet, 5 MG PO HS, (Reported) Aspirin 81 Mg Tablet.dr, 162 MG PO BID, (Reported) Benzonatate 200 Mg Capsule, 200 MG PO BID PRN for COUGH, #30 Ref 0 Prescribed by: JUAN GANT on 03/17/17 1257 Digoxin 125 Mcg Tablet, 125 MCG PO DAILY, (Reported) Esomeprazole Magnesium 40 Mg Cap, 40 MG PO DAILY, (Reported) Fluticasone Propionate 1 Ea Aero, 2 PUFF IH PRN, (Reported) Furosemide 40 Mg Tablet, 40 MG PO DAILY, (Reported) Ipratropium/Albuterol Sulfate 3 Ml Ampul.neb, 3 ML INH RTQ4HR for 30 Days Prescribed by: BRIGITTE LEMA on 10/04/16 1146 Losartan Potassium 50 Mg Tablet, 100 MG PO DAILY for 30 Days Prescribed by: BRIGITTE ELMA on 10/04/16 1140 Metoprolol Tartrate 50 Mg Tablet, 25 MG PO BID for 30 Days Prescribed by: BRIGITTE LEMA on 10/04/16 1140 Mexiletine HCl 150 Mg Cap, 150 MG PO TID, (Reported) Nitrofurantoin Monohyd/M-Cryst 100 Mg Capsule, 1 TAB PO BID, #20 Ref 0 Prescribed by: JUAN GANT on 03/17/17 1257 Oxycodone HCl/Acetaminophen 1 Each Tablet, 1-2 TAB PO Q4H PRN for SEVERE PAIN, # 60 Prescribed by: BRIGITTE LEMA on 10/04/16 114 Polyethylene Glycol 3350 17 Gm Powd.pack, 17 GM PO DAILY for 30 Days Prescribed by: BRIGITTE LEMA on 10/04/16 114 Potassium Chloride 8 Meq Tablet.er, 8 MEQ PO DAILY, (Reported) Sennosides 8.6 Mg Tablet, 8.6 MG PO BID for 30 Days Prescribed by: BRIGITTE LEMA on 10/04/16 1140 Tamsulosin HCl 0.4 Mg Cap, 0.4 MG PO HS for 30 Days Prescribed by: BRIGITTE LEMA on 10/04/16 1140 Tramadol HCl 50 Mg Tablet, 50 MG PO Q4H PRN for MODERATE PAIN, #30 Prescribed by: BRIGITTE LEMA on 10/04/16 1140 Warfarin Sodium 5 Mg Tablet, 5 MG PO DAILY@1800 for 30 Days Prescribed by: BRIGITTE LEMA on 10/04/16 1140 Constitutional: see HPI, fever, malaise, weakness EENTM: no symptoms reported Respiratory: see HPI, cough, dyspnea on exertion, short of breath Cardiovascular: No chest pain, edema, No palpitations Gastrointestinal: no symptoms reported, No abdominal pain, No loss of appetite , No nausea, No vomiting Genitourinary: see HPI Musculoskeletal: see HPI Skin: see HPI Psychiatric/Neurological: No Symptoms Reported Hematologic/Lymphatic: No Symptoms Reported Immunological/Allergic: no symptoms reported Past Hknabds-Yoavpo-Nwamob Hx Patient Social History Alcohol Use: Denies Use Recreational Drug Use: No Smoking Status: Former Smoker (3 / TO 4 PPD--QUIT 1992) Type Used: Cigarettes Former Smoker, Quit: Jul 30, 1992 2nd Hand Smoke Exposure: No Recent Foreign Travel: No Contact w/Someone Who Travel: No Recent Hopitalizations: No Immunizations Up To Date Tetanus Booster (TDap): More than 5yrs Date of Pneumonia Vaccine: Apr 29, 2014 Date of Influenza Vaccine: Jul 03, 2016 Seasonal Allergies Seasonal Allergies: No Surgeries History of Surgeries: Yes (SKIN CANCER REMOVALS; CATARACT SURGERY; CARDIAC CATHS WITH CARDIAC STENTS X 2; LEFT HIP FRACTURE 08/2016; LITHOTRIPSY; HERNIA REPAIR) Surgeries: Cardiac, CABG, Coronary Stent, Defibrillator, Eye Surgery, Joint Replacement, Orthopedic, Renal Respiratory History of Respiratory Disorde: Yes (O2 3L/NC AT HS) Respiratory Disorders: Asthma, Pneumonia, Chronic Bronchitis, Sleep Apnea, COPD Currently Using CPAP: No Currently Using BIPAP: No Cardiovascular History of Cardiac Disorders: Yes (CABG, DEFIBRILLATOR, CARDIAC CATHS-STENTS X2 ; CHF) Cardiac Disorders: Coronary Artery Disease, Heart Attack, High Cholesterol, Hypertension Neurological History of Neurological Disord: Yes Neurological Disorders: Dementia, Neuropathy Reproductive System Hx Reproductive Disorders: Yes (unable to have children- mumps as a child) Sexually Transmitted Disease: No HIV/AIDS: No Genitourinary History of Genitourinary Disor: Yes Genitourinary Disorders: Bladder Infection, Kidney Stones Gastrointestinal History of Gastrointestinal Di: Yes Gastrointestinal Disorders: Gastroesophageal Reflux, Ulcer Musculoskeletal History of Musculoskeletal Dis: Yes (POOR MOBILITY) Musculoskeletal Disorders: Arthritis, Fractures Endocrine History of Endocrine Disorders: No HEENT History of HEENT Disorders: Yes HEENT Disorders: Cataract, Glaucoma Loss of Vision: Bilateral Hearing Impairment: Hard of Hearing Cancer History of Cancer: Yes Cancer: Skin Type of Tx Receive: Surgical Intervention Psychosocial History of Psychiatric Problem: Yes Behavioral Health Disorders: Depression Integumentary History of Skin or Integumenta: Yes (shingles , SKIN CANCER) Blood Transfusions History of Blood Disorders: No Adverse Reaction to a Blood Tr: No Family Medical History Significant Family History: No Pertinent Family Hx Family Medial History: Cardiovascular disease 19 MOTHER G8 BROTHER G8 SISTER Cervical cancer 19 MOTHER Physical Exam Vital Signs Vital Sign - Last 12Hours 06/21/17 16:36 Temp 101.3 Pulse 102 Resp 20 B/P (MAP) 166/79 Pulse Ox 88 O2 Delivery Room Air O2 Flow Rate 2.00 Capillary Refill : General Appearance: WD/WN, no apparent distress, other (FREQUENT MOIST COUGH, LETHARGIC) HEENT: PERRL/EOMI, other (ORAL MUCOSA DRY) Neck: normal inspection Respiratory: no respiratory distress, no accessory muscle use, rales (RLL), rhonchi (RLL) Cardiovascular: regular rate, rhythm, no murmur Gastrointestinal: normal bowel sounds, non tender, soft Extremities: pedal edema (3+ TO 4+ EDEMA BILATERALLY WITH CHRONIC VENOUS STASIS CHANGES AND ERYTHEMA, WITH SCALING/FISSURING/SCABS--NON-TENDER. 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, no motor/sensory deficits ( GROSSLY INTACT), alert, normal mood/affect, oriented x 3 (BUT POOR MEMORY) Skin: normal color, warm/dry, No rash, other (MULTIPLE SCABS, CHRONIC APPEARING SKIN LESIONS TO FACE ARMS AND HANDS) Focused Exam Evaluation Lactate Level Laboratory Tests 06/21/17 16:46: Lactic Acid Level 1.25 Lactic Acid Level Laboratory Tests Test 06/21/17 16:46 Lactic Acid Level 1.25 MMOL/L (0.50-2.00) Progress/Results/Core Measures Suspected Sepsis SIRS Temperature: Pulse: Respiratory Rate: Laboratory Tests 06/21/17 16:46: White Blood Count 15.1H Blood Pressure / Mean: Laboratory Tests 06/21/17 16:46: Lactic Acid Level 1.25 Laboratory Tests 06/21/17 16:46: Creatinine 0.99, INR Comment 1.1, Platelet Count 200, Total Bilirubin 1.0 Results/Orders Lab Results Laboratory Tests Test 06/21/17 16:46 06/21/17 16:58 Range/Units White Blood Count 15.1 H 4.3-11.0 10^3/uL Red Blood Count 4.52 4.35-5.85 10^6/uL Hemoglobin 13.5 13.3-17.7 G/DL Hematocrit 40 40-54 % Mean Corpuscular Volume 89 80-99 FL Mean Corpuscular Hemoglobin 30 25-34 PG Mean Corpuscular Hemoglobin Concent 33 32-36 G/DL Red Cell Distribution Width 16.4 H 10.0-14.5 % Platelet Count 200 130-400 10^3/uL Mean Platelet Volume 10.5 H 7.4-10.4 FL Neutrophils (%) (Auto) 78 H 42-75 % Lymphocytes (%) (Auto) 10 L 12-44 % Monocytes (%) (Auto) 12 0-12 % Eosinophils (%) (Auto) 0 0-10 % Basophils (%) (Auto) 0 0-10 % Neutrophils # (Auto) 11.8 H 1.8-7.8 X 10^3 Lymphocytes # (Auto) 1.5 1.0-4.0 X 10^3 Monocytes # (Auto) 1.8 H 0.0-1.0 X 10^3 Eosinophils # (Auto) 0.0 0.0-0.3 10^3/uL Basophils # (Auto) 0.0 0.0-0.1 10^3/uL Neutrophils % (Manual) 74 % Lymphocytes % (Manual) 14 % Monocytes % (Manual) 12 % Eosinophils % (Manual) 0 % Basophils % (Manual) 0 % Band Neutrophils 0 % Anisocytosis SLIGHT Prothrombin Time 14.2 12.2-14.7 SEC INR Comment 1.1 0.8-1.4 Activated Partial Thromboplast Time 31 24-35 SEC Sodium Level 137 135-145 MMOL/L Potassium Level 3.4 L 3.6-5.0 MMOL/L Chloride Level 96 L 98-107 MMOL/L Carbon Dioxide Level 28 21-32 MMOL/L Anion Gap 13 5-14 MMOL/L Blood Urea Nitrogen 12 7-18 MG/DL Creatinine 0.99 0.60-1.30 MG/DL Estimat Glomerular Filtration Rate > 60 BUN/Creatinine Ratio 12 Glucose Level 104 70-105 MG/DL Lactic Acid Level 1.25 0.50-2.00 MMOL/L Calcium Level 9.5 8.5-10.1 MG/DL Magnesium Level 1.6 L 1.8-2.4 MG/DL Total Bilirubin 1.0 0.1-1.0 MG/DL Aspartate Amino Transf (AST/SGOT) 27 5-34 U/L Alanine Aminotransferase (ALT/SGPT) 23 0-55 U/L Alkaline Phosphatase 113 40-136 U/L B-Type Natriuretic Peptide 137.6 H <100.0 PG/ML Total Protein 8.7 H 6.4-8.2 GM/DL Albumin 3.9 3.2-4.5 GM/DL Digoxin Level 0.75 L 0.80-2.00 NG/ML Urine Color YELLOW Urine Clarity SL CLOUDY Urine pH 7 5-9 Urine Specific [place] 1.010 L 1.016-1.022 Urine Protein 1+ H NEGATIVE Urine Glucose (UA) NEGATIVE NEGATIVE Urine Ketones NEGATIVE NEGATIVE Urine Nitrite NEGATIVE NEGATIVE Urine Bilirubin NEGATIVE NEGATIVE Urine Urobilinogen NORMAL NORMAL MG/DL Urine Leukocyte Esterase 3+ H NEGATIVE Urine RBC (Auto) 5+ H NEGATIVE Urine RBC 2-5 H /HPF Urine WBC 25-50 H /HPF Urine Squamous Epithelial Cells NONE /HPF Urine Crystals NONE /LPF Urine Bacteria FEW H /HPF Urine Casts NONE /LPF Urine Mucus NEGATIVE /LPF Urine Culture Indicated YES Micro Results Microbiology 06/21/17 Influenza Types A,B Antigen ([facility]) - Final, Complete My Orders Orders - DEVORA CORDERO DO Saline Lock/Iv-Start (06/21/17 16:48) O2 (06/21/17 16:48) Monitor-Rhythm Ecg Trace Only (06/21/17 16:48) BNP (06/21/17 16:48) Cbc With Automated Diff (06/21/17 16:48) Comprehensive Metabolic Panel (06/21/17 16:48) Digoxin (06/21/17 16:48) Lactic Acid Analyzer (06/21/17 16:48) Magnesium (06/21/17 16:48) Protime With Inr (06/21/17 16:48) Partial Thromboplastin Time (06/21/17 16:48) Ua Culture If Indicated (06/21/17 16:48) Blood Culture (06/21/17 16:48) Influenza A And B Antigens (06/21/17 16:48) Chest 1 View, Ap/Pa Only (06/21/17 16:48) Albuterol/Ipra Inhalation Soln (Duoneb I (06/21/17 17:00) Dexamethasone Injection (Decadron Inject (06/21/17 17:00) Rt Request For Service (06/21/17 16:48) Svn Sm Volume Nebulizer Rt-Rfs (06/21/17 16:48) Sputum Culture (06/21/17 16:48) Manual Differential (06/21/17 16:46) Urine Culture (06/21/17 16:58) Methylprednisolone Sod Succ (Solu-Medrol (06/21/17 18:30) Ceftriaxone Injection (Rocephin Injectio (06/21/17 18:30) Medications Given in ED Current Medications Medications Dose Ordered Sig/Re Route Start Time Stop Time Status Last Admin Dose Admin Albuterol/ Ipratropium 3 ml ONCE ONCE INH 06/21/17 17:00 06/21/17 17:01 DC 06/21/17 17:10 3 ML Ceftriaxone Sodium 1000 mg/ Sodium Chloride 50 ml @ 100 mls/hr ONCE ONCE IV 06/21/17 18:30 06/21/17 18:59 06/21/17 18:37 100 MLS/HR Dexamethasone Sodium Phosphate 20 mg ONCE ONCE IH 06/21/17 17:00 06/21/17 17:01 DC 06/21/17 17:10 20 MG Methylprednisolone Sodium Succinate 125 mg ONCE ONCE IVP 06/21/17 18:30 06/21/17 18:31 DC 06/21/17 18:36 125 MG Vital Signs/I&O Vital Sign - Last 12Hours 06/21/17 06/21/17 06/21/17 06/21/17 16:36 16:36 17:11 17:41 Temp 101.3 Pulse 102 94 Resp 20 18 B/P (MAP) 166/79 149/68 Pulse Ox 88 95 96 O2 Delivery Room Air Nasal Cannula Nasal Cannula Nasal Cannula O2 Flow Rate 2.00 4.00 2.00 Capillary Refill : Progress Note : Progress Note O2 SATS 87-89% ON ROOM AIR ON ARRIVAL. UP TO 96% ON 3L/NC INCREASED AERATION AFTER NEB TREATMENT BUT STILL WITH RALES/RHONCHI IN RLL Diagnostic Imaging Comments CXR--LOW LUNG VOLUMES WITH BRONCHIAL WALL THICKENING C/W SMALL AIRWAY INFLAMMATION--PER RADIOLOGIST REPORT @ 1755 Reviewed: Reviewed by Me Departure Communication (Admissions) Progress Notes 1267--SPOKE WITH DR. Kathrine SHEARER. ACCEPTS PT FOR ADMIT. Impression Impression: Primary Impression: Bronchitis Additional Impressions: CLINICAL PNEUMONIA Hypoxia COPD (chronic obstructive pulmonary disease) Sepsis UTI (urinary tract infection) CHRONIC LEG EDEMA AND CELLULITIS Disposition: ADMITTED INPATIENT Condition: Improved Admissions Decision to Admit Reason: Admit from ER (General) Decision to Admit/Date: Jun 21, 2017 Time/Decision to Admit Time: 18:00 Departure-Patient Inst. Referrals: ABHINAV GONZALEZ MD (PCP/Family) Primary Care Physician DEVORA CORDERO DO Jun 21, 2017 16:56
[2017-06-21 16:58] LABS: BASOPHILS % (AUTO) 0 % (0-10); EOSINOPHILS % (AUTO) 0 % (0-10); LYMPHOCYTES # (AUTO) 1.5 X 10^3 (1.0-4.0); LYMPHOCYTES % (AUTO) 10 % (12-44); MEAN CORPUSCULAR HEMOGLOBIN 30 PG (25-34); MEAN CORPUSCULAR HGB CONC 33 G/DL (32-36); MEAN CORPUSCULAR VOLUME 89 FL (80-99); MEAN PLATELET VOLUME 10.5 FL (7.4-10.4); MONOCYTES # (AUTO) 1.8 X 10^3 (0.0-1.0); MONOCYTES % (AUTO) 12 % (0-12); NEUTROPHILS # (AUTO) 11.8 X 10^3 (1.8-7.8); NEUTROPHILS % (AUTO) 78 % (42-75); PLATELET COUNT 200 10^3/uL (130-400); RED BLOOD COUNT 4.52 10^6/uL (4.35-5.85); RED CELL DISTRIBUTION WIDTH 16.4 % (10.0-14.5); WHITE BLOOD COUNT 15.1 10^3/uL (4.3-11.0)
[2017-06-21] MEDS ORDERED: DEXAMETHASONE 4 MG/ML SDV (DECADRON) IH ONE (17:00)
[2017-06-21] MEDS ORDERED: RT-ALBUTEROL/IPRATROPIUM 3 ML (DUONEB) VIAL INH ONE (17:00)
[2017-06-21 17:09] LABS: INR 1.1 (0.8-1.4); PROTHROMBIN TIME PATIENT 14.2 SEC (12.2-14.7)
[2017-06-21 17:17] LABS: ALANINE AMINOTRANSFERASE 23 U/L (0-55); ALBUMIN 3.9 GM/DL (3.2-4.5); ANION GAP 13 MMOL/L (5-14); ASPARTATE AMINO TRANSFERASE 27 U/L (5-34); BLOOD UREA NITROGEN 12 MG/DL (7-18); BUN/CREATININE RATIO 12; CALCIUM 9.5 MG/DL (8.5-10.1); CARBON DIOXIDE 28 MMOL/L (21-32); CHLORIDE 96 MMOL/L (98-107); CREATININE SERUM 0.99 MG/DL (0.60-1.30); GFR ESTIMATED > 60; GLUCOSE 104 MG/DL (70-105); MAGNESIUM 1.6 MG/DL (1.8-2.4); POTASSIUM 3.4 MMOL/L (3.6-5.0); SODIUM 137 MMOL/L (135-145); TOTAL PROTEIN 8.7 GM/DL (6.4-8.2)
[2017-06-21 17:19] LABS: BILIRUBIN,URINE NEGATIVE (NEGATIVE); KETONES,URINE NEGATIVE (NEGATIVE); LEUKOCYTE ESTERASE ,URINE 3+ (NEGATIVE); NITRITE,URINE NEGATIVE (NEGATIVE); PH,URINE 7 (5-9); PROTEIN,URINE 1+ (NEGATIVE); UROBILINOGEN,URINE NORMAL (NORMAL)
[2017-06-21 17:20] LABS: WBC,URINE 25-50 /HPF
[2017-06-21 17:23] LABS: DIGOXIN 0.75 NG/ML (0.80-2.00)
[2017-06-21 17:26] LABS: ANISOCYTOSIS SLIGHT; BAND NEUTROPHILS 0 %; BASOPHILS % (MANUAL) 0 %; EOSINOPHILS % (MANUAL) 0 %; LYMPHOCYTES % (MANUAL) 14 %; NEUTROPHILS % (MANUAL) 74 %
[2017-06-21 17:41] VITALS: BP 149/68
--- NOTE | 2017-06-21 17:47 | Diagnostic Imaging Report ---
EXAM: Chest 1 view, AP/PA only. INDICATION: Cough. Fever. COMPARISON: Chest radiograph, 10/03/2016. FINDINGS: Low lung volumes accentuate the cardiomegaly and central pulmonary vascularity. Elevation of the right hemidiaphragm, similar to the prior exam. Bronchial wall thickening. No new dense consolidation, pleural effusion or pneumothorax. Sternotomy. Cardiac pacer. No acute osseous findings. IMPRESSION: Examination limited by low lung volumes. Bronchial wall thickening consistent with small airway inflammation. Remainder stable. Dictated by: Dictated on workstation # [id number]
[2017-06-21] MEDS ORDERED: methylPREDNISolone 125 MG (Solu-MEDROL) VIAL IVP ONE (18:30)
[2017-06-21] MEDS ORDERED: cefTRIAXone INJECTION 1,000 MG in NS (IVPB) 50 ML IV ONE (18:30)
[2017-06-21 19:20] VITALS: BP 168/76
[2017-06-21] MEDS ORDERED: RT-ALBUTEROL/IPRATROPIUM 3 ML (DUONEB) VIAL INH PRN (20:00)
[2017-06-21] MEDS ORDERED: IBUPROFEN 800 MG (MOTRIN) TAB PO PRN (21:00)
[2017-06-21] MEDS ORDERED: AZITHROMYCIN 500 MG/NS 250 ML IVPB IV SCH ×2 (21:00)
[2017-06-21] MEDS ORDERED: ACETAMINOPHEN 500 MG TAB (TYLENOL) PO PRN (21:00)
[2017-06-21] MEDS: D5 1/2 NS 1000 ML IV SOLUTION 1,000 ML IV SCH (21:21)
[2017-06-21 21:31] VITALS: BP 144/67
[2017-06-21] MEDS: RT-ALBUTEROL/IPRATROPIUM 3 ML (DUONEB) VIAL INH SCH (21:51)
[2017-06-22] VITALS (7 sets, daily range): BP systolic 110–140; BP diastolic 53–68
[2017-06-22] MEDS: RT-ALBUTEROL/IPRATROPIUM 3 ML (DUONEB) VIAL INH SCH ×6 (01:55→23:10)
[2017-06-22] MEDS: methylPREDNISolone 125 MG (Solu-MEDROL) VIAL IV SCH ×2 (02:01→10:25)
[2017-06-22 06:19] LABS: BASOPHILS % (AUTO) 0 % (0-10); EOSINOPHILS % (AUTO) 0 % (0-10); LYMPHOCYTES # (AUTO) 0.4 X 10^3 (1.0-4.0); LYMPHOCYTES % (AUTO) 4 % (12-44); MEAN CORPUSCULAR HEMOGLOBIN 30 PG (25-34); MEAN CORPUSCULAR HGB CONC 33 G/DL (32-36); MEAN CORPUSCULAR VOLUME 90 FL (80-99); MEAN PLATELET VOLUME 10.3 FL (7.4-10.4); MONOCYTES # (AUTO) 0.1 X 10^3 (0.0-1.0); MONOCYTES % (AUTO) 1 % (0-12); NEUTROPHILS # (AUTO) 9.2 X 10^3 (1.8-7.8); NEUTROPHILS % (AUTO) 95 % (42-75); PLATELET COUNT 162 10^3/uL (130-400); RED BLOOD COUNT 4.02 10^6/uL (4.35-5.85); WHITE BLOOD COUNT 9.7 10^3/uL (4.3-11.0)
[2017-06-22] MEDS: D5 1/2 NS 1000 ML IV SOLUTION 1,000 ML IV SCH ×2 (06:21→08:29)
[2017-06-22 06:38] LABS: ALANINE AMINOTRANSFERASE 18 U/L (0-55); ALBUMIN 3.2 GM/DL (3.2-4.5); ANION GAP 9 MMOL/L (5-14); ASPARTATE AMINO TRANSFERASE 19 U/L (5-34); BILIRUBIN,TOTAL 0.5 MG/DL (0.1-1.0); BLOOD UREA NITROGEN 13 MG/DL (7-18); BUN/CREATININE RATIO 16; CARBON DIOXIDE 29 MMOL/L (21-32); CHLORIDE 101 MMOL/L (98-107); CREATININE SERUM 0.82 MG/DL (0.60-1.30); GFR ESTIMATED > 60; GLUCOSE 250 MG/DL (70-105); POTASSIUM 3.1 MMOL/L (3.6-5.0); SODIUM 139 MMOL/L (135-145); TOTAL PROTEIN 7.2 GM/DL (6.4-8.2)
[2017-06-22] MEDS ORDERED: METO50TA2 PO (09:50)
[2017-06-22] MEDS ORDERED: ESOM40CA52 PO (09:50)
[2017-06-22] MEDS ORDERED: AMIO200T2 PO (09:50)
[2017-06-22] MEDS ORDERED: ALBU18HF2 IH (09:50)
--- NOTE | 2017-06-22 10:45 | Diagnostic Imaging Report ---
INDICATION: Pneumonia. COMPARISON STUDY: Chest from 06/21/2017. FINDINGS: Frontal and lateral views of the chest again demonstrates poor inspiration with some elevation of the right diaphragm. Cardiac pacemaker is present with coronary artery bypass graft changes. Peribronchial thickening has nearly resolved. IMPRESSION: The peribronchial thickening has nearly resolved. Dictated by: Dictated on workstation # [id number]
[2017-06-22] MEDS ORDERED: cefTRIAXone 1 GM/NS 50 ML IVPB IV SCH ×2 (19:00)
[2017-06-22] MEDS: MEXILETINE 150 MG (MEXITIL) CAPSULE PO SCH (20:12)
[2017-06-22] MEDS: meTOprolol TARTRATE 50 MG (LOPRESSOR) TAB PO SCH (20:12)
[2017-06-22] MEDS ORDERED: amLODIPine 5 MG (NORVASC) TAB PO SCH (21:00)
[2017-06-22] MEDS ORDERED: AZITHROMYCIN 250 MG TAB (ZITHROMAX) PO SCH (21:00)
[2017-06-22] MEDS ORDERED: MEXILETINE HCL 150 MG PO SCH (21:00)
[2017-06-23] MEDS: RT-ALBUTEROL/IPRATROPIUM 3 ML (DUONEB) VIAL INH SCH ×3 (02:38→10:46)
[2017-06-23 04:00] VITALS: BP 117/58
[2017-06-23] MEDS ORDERED: AMIODARONE 200 MG (CORDARONE) TAB PO SCH (06:00)
[2017-06-23] MEDS ORDERED: PANTOPRAZOLE 40 MG (PROTONIX) TAB PO SCH (07:00)
[2017-06-23 08:00] VITALS: BP 121/61
--- NOTE | 2017-06-23 08:52 | History & Physicial (CHS) ---
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 He has a history of COPD and CHF and usually wears oxygen (3LPM NC) at night. However, he has started wearing it during benny day the past few days. He had a temp of 100 so his gave him tylenol and brought him to ER. HE has had a dry cough but no sputum and no hemoptysis. He states his legs are always bright red and look better than they have been; he has not noticed any edema. Of note, Mr Durham was hospitalized earlier this year for a hip fracture and was in a residential for rehab. He has been home since November. His has a [employer] that helps. THey do not currently have home health. Source: patient, family Exam Limitations: no limitations Date seen by provider: Jun 22, 2017 Time Seen by Provider: 09:00 Attending Physician Edis Shearer MD PCP Abhinav Gonzalez MD Consult Date of Admission Jun 21, 2017 at 18:00 Home Medications Home Medications Reviewed patient Home Medication Reconciliation Form Allergies Coded Allergies: Penicillins (Verified Allergy, Severe, HIVES, SOB, 07/02/15) codeine (Verified Allergy, Severe, SOB, HIVES, 07/02/15) FOZ-Ndhobr-Qyehux Hx Patient Social History Alcohol Use: Denies Use Recreational Drug Use: No Smoking Status: Former Smoker Former smoker/When Quit: Aug 02, 1987 Type Used: Cigarettes 2nd Hand Smoke Exposure: No Recent Foreign Travel: No Contact w/other who traveled: No Recent Hopitalizations: No Recent Infectious Disease Expo: No Physical Abuse Screen: No Sexual Abuse: No Immunizations Up To Date Tetanus Booster (TDap): More than 5yrs Date of Pneumonia Vaccine: Apr 29, 2014 Date of Influenza Vaccine: Jun 08, 2017 Family Medical History Significant Family History: No Pertinent Family Hx Family History: Cardiovascular disease 19 MOTHER G8 BROTHER G8 SISTER Cervical cancer 19 MOTHER Review of Systems (CHC) Constitutional: see HPI All Other Systems Reviewed Negative Unless Noted: Yes Reviewed Test Results Reviewed Test Results Lab Laboratory Tests Test 06/21/17 16:46 06/21/17 16:58 06/22/17 05:50 Range/Units White Blood Count 15.1 H 9.7 4.3-11.0 10^3/uL Red Blood Count 4.52 4.02 L 4.35-5.85 10^6/uL Hemoglobin 13.5 12.0 L 13.3-17.7 G/DL Hematocrit 40 36 L 40-54 % Mean Corpuscular Volume 89 90 80-99 FL Mean Corpuscular Hemoglobin 30 30 25-34 PG Mean Corpuscular Hemoglobin Concent 33 33 32-36 G/DL Red Cell Distribution Width 16.4 H 16.0 H 10.0-14.5 % Platelet Count 200 162 130-400 10^3/uL Mean Platelet Volume 10.5 H 10.3 7.4-10.4 FL Neutrophils (%) (Auto) 78 H 95 H 42-75 % Lymphocytes (%) (Auto) 10 L 4 L 12-44 % Monocytes (%) (Auto) 12 1 0-12 % Eosinophils (%) (Auto) 0 0 0-10 % Basophils (%) (Auto) 0 0 0-10 % Neutrophils # (Auto) 11.8 H 9.2 H 1.8-7.8 X 10^3 Lymphocytes # (Auto) 1.5 0.4 L 1.0-4.0 X 10^3 Monocytes # (Auto) 1.8 H 0.1 0.0-1.0 X 10^3 Eosinophils # (Auto) 0.0 0.0 0.0-0.3 10^3/uL Basophils # (Auto) 0.0 0.0 0.0-0.1 10^3/uL Neutrophils % (Manual) 74 % Lymphocytes % (Manual) 14 % Monocytes % (Manual) 12 % Eosinophils % (Manual) 0 % Basophils % (Manual) 0 % Band Neutrophils 0 % Anisocytosis SLIGHT Prothrombin Time 14.2 12.2-14.7 SEC INR Comment 1.1 0.8-1.4 Activated Partial Thromboplast Time 31 24-35 SEC Sodium Level 137 139 135-145 MMOL/L Potassium Level 3.4 L 3.1 L 3.6-5.0 MMOL/L Chloride Level 96 L 101 98-107 MMOL/L Carbon Dioxide Level 28 29 21-32 MMOL/L Anion Gap 13 9 5-14 MMOL/L Blood Urea Nitrogen 12 13 7-18 MG/DL Creatinine 0.99 0.82 0.60-1.30 MG/DL Estimat Glomerular Filtration Rate > 60 > 60 BUN/Creatinine Ratio 12 16 Glucose Level 104 250 H 70-105 MG/DL Lactic Acid Level 1.25 0.50-2.00 MMOL/L Calcium Level 9.5 9.0 8.5-10.1 MG/DL Magnesium Level 1.6 L 1.8-2.4 MG/DL Total Bilirubin 1.0 0.5 0.1-1.0 MG/DL Aspartate Amino Transf (AST/SGOT) 27 19 5-34 U/L Alanine Aminotransferase (ALT/SGPT) 23 18 0-55 U/L Alkaline Phosphatase 113 93 40-136 U/L B-Type Natriuretic Peptide 137.6 H <100.0 PG/ML Total Protein 8.7 H 7.2 6.4-8.2 GM/DL Albumin 3.9 3.2 3.2-4.5 GM/DL Digoxin Level 0.75 L 0.80-2.00 NG/ML Urine Color YELLOW Urine Clarity SL CLOUDY Urine pH 7 5-9 Urine Specific [place] 1.010 L 1.016-1.022 Urine Protein 1+ H NEGATIVE Urine Glucose (UA) NEGATIVE NEGATIVE Urine Ketones NEGATIVE NEGATIVE Urine Nitrite NEGATIVE NEGATIVE Urine Bilirubin NEGATIVE NEGATIVE Urine Urobilinogen NORMAL NORMAL MG/DL Urine Leukocyte Esterase 3+ H NEGATIVE Urine RBC (Auto) 5+ H NEGATIVE Urine RBC 2-5 H /HPF Urine WBC 25-50 H /HPF Urine Squamous Epithelial Cells NONE /HPF Urine Crystals NONE /LPF Urine Bacteria FEW H /HPF Urine Casts NONE /LPF Urine Mucus NEGATIVE /LPF Urine Culture Indicated YES Radiology Date of Exam: 06/22/17 CHEST PA/LAT (2 VIEW) INDICATION: Pneumonia. COMPARISON STUDY: Chest from 06/21/2017. FINDINGS: Frontal and lateral views of the chest again demonstrates poor inspiration with some elevation of the right diaphragm. Cardiac pacemaker is present with coronary artery bypass graft changes. Peribronchial thickening has nearly resolved. IMPRESSION: The peribronchial thickening has nearly resolved. Physical Exam-(CHC) Physical Exam Vital Signs VS - Last 72 Hours, by Label 06/21/17 06/21/17 06/21/17 06/21/17 16:36 16:36 17:11 17:41 Temp 101.3 Pulse 102 94 Resp 20 18 B/P (MAP) 166/79 149/68 Pulse Ox 88 95 96 O2 Delivery Room Air Nasal Cannula Nasal Cannula Nasal Cannula O2 Flow Rate 2.00 4.00 2.00 06/21/17 06/21/17 06/21/17 06/21/17 18:59 19:20 19:25 19:59 Temp 98.4 Pulse 86 85 78 Resp 18 24 B/P (MAP) 168/76 Pulse Ox 95 96 97 O2 Delivery Nasal Cannula Nasal Cannula Nasal Cannula O2 Flow Rate 2.00 4.00 4.00 FiO2 36 06/21/17 06/21/17 06/21/17 06/21/17 20:15 21:00 21:31 21:55 Temp 98.4 Pulse 85 80 85 Resp 24 B/P (MAP) 144/67 Pulse Ox 95 95 O2 Delivery Nasal Cannula Nasal Cannula O2 Flow Rate 4.00 4.00 06/22/17 06/22/17 06/22/17 06/22/17 00:42 01:00 01:56 04:44 Temp 97.7 97.8 Pulse 75 77 70 Resp 20 18 B/P (MAP) 132/64 133/68 Pulse Ox 96 95 95 O2 Delivery Nasal Cannula Nasal Cannula Nasal Cannula O2 Flow Rate 4.00 4.00 4.00 06/22/17 06/22/17 06/22/17 06/22/17 07:04 08:11 10:36 12:00 Temp 96.8 98.0 Pulse 78 83 Resp 18 18 B/P (MAP) 137/67 140/62 Pulse Ox 98 94 97 95 O2 Delivery Nasal Cannula Nasal Cannula Nasal Cannula Nasal Cannula O2 Flow Rate 4.00 4.00 4.00 4.00 06/22/17 06/22/17 06/22/17 06/22/17 14:42 16:18 18:49 19:00 Temp 98.0 Pulse 90 90 Resp 18 B/P (MAP) 119/53 Pulse Ox 95 96 96 O2 Delivery Nasal Cannula Room Air Nasal Cannula O2 Flow Rate 3.00 3.00 06/22/17 06/22/17 06/22/17 06/22/17 20:15 21:00 23:10 23:10 Temp 98.5 98.4 Pulse 94 80 Resp 18 20 B/P (MAP) 137/68 110/63 Pulse Ox 97 94 95 O2 Delivery Room Air Nasal Cannula Nasal Cannula Room Air O2 Flow Rate 3.00 3.00 06/23/17 06/23/17 06/23/17 06/23/17 01:00 02:38 04:00 07:12 Temp 97.4 Pulse 85 82 Resp 20 B/P (MAP) 117/58 Pulse Ox 94 96 94 O2 Delivery Nasal Cannula Nasal Cannula Nasal Cannula O2 Flow Rate 3.00 3.00 3.00 06/23/17 06/23/17 06/23/17 08:00 09:00 10:46 Temp 97.5 Pulse 81 Resp 20 B/P (MAP) 121/61 Pulse Ox 93 94 O2 Delivery Nasal Cannula Nasal Cannula Nasal Cannula O2 Flow Rate 3.00 3.00 3.00 Capillary Refill : Less Than 3 Seconds General Appearance: WD/WN, no apparent distress, other (chronically ill) HEENT: PERRL/EOMI, normal ENT inspection, pharynx normal Neck: non-tender, full range of motion, supple, normal inspection Respiratory: normal breath sounds, no respiratory distress, no accessory muscle use, crackles Cardiovascular: regular rate, rhythm, no edema, no gallop, no JVD, no murmur Gastrointestinal: normal bowel sounds, non tender, soft, no organomegaly, no pulsatile mass Back: normal inspection, no CVA tenderness, no vertebral tenderness Extremities: normal range of motion, non-tender, no pedal edema, no calf tenderness, normal capillary refill, other (both legs with erythema, c/w stasis dermatitis) 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 Will go ahead and treat presumptively given his chronic lung disease. Will hold on steroids for now. Recheck labs in AM. Lactate WNL; no signs of sepsis today. Breathing tx QID. Will restart home meds as well. Patient's asking about home health which sounds like a great idea; will do what we can to arrange on V[facility] if he is discharged by then. DVT PROPH: SCDs, early ambulation EDIS SHEARER MD Jun 23, 2017 08:52
[2017-06-23] MEDS ORDERED: NON-FORMULARY MEDICATION 1 EA EA (Esomeprazole Magnesium 40 MG) PO SCH (09:00)
[2017-06-23] MEDS ORDERED: DIGOXIN 0.125 MG (LANOXIN) TAB PO SCH (09:00)
[2017-06-23] MEDS: meTOprolol TARTRATE 50 MG (LOPRESSOR) TAB PO SCH (09:29)
[2017-06-23] MEDS: MEXILETINE 150 MG (MEXITIL) CAPSULE PO SCH (09:29)
[2017-06-23] MEDS ORDERED: CEFP200T2 PO (10:28)
[2017-06-23] MEDS ORDERED: AZIT250T12 PO (10:28)
--- NOTE | 2017-06-23 10:32 | D/C HH Face to Face Order ---
D/C Face to Face Orders Instructions for Patient Patient Instructions/FollowUp: [facility] WILL CALL YOU ON SUNDAY WITH A FOLLOW UP APPOINTMENT WITH DR GONZALEZ Physician to follow Patient: LISA Discharge Diet for Home: Cardiac Diet, Low Sodium Diet Patient Problems: COMMUNITY ACQUIRED PNEUMONIA CONGESTIVE HEART FAILURE, CHRONIC, SYSTOLIC Goals for Patient: REDUCED O2 REQUIREMENT DURING THE DAY Patient Data-Allergies,Ht & Wt Patient Allergies: Coded Allergies: Penicillins (Verified Allergy, Severe, HIVES, SOB, 07/02/15) codeine (Verified Allergy, Severe, SOB, HIVES, 07/02/15) Height (Feet): 5 Height (Inches): 5.00 Weight (Pounds): 208 Weight (Ounces): 0.0 Home Health Need/Face to Face Date of Face to Face: Jun 23, 2017 Clinical Findings: Shortness of breath I have seen Pt [id number]: Yes Discharged To: Home Diagnosis/Conditions: COMMUNITY ACQUIRED PNEUMONIA CHRONIC CONGESTIVE HEART FAILURE Problems/Diagnosis/Condition: Patient is Homebound due to: Shortness of breath/distress Homebound Status Due to the above stated illness, injury or surgical procedure (medical condition or diagnosis) and associated clinical findings, the patient is homebound because of his/her inability to leave home except with aid of a supportive device and/or person AND leaving the home requires a considerable and taxing effort or is medically contraindicated. Pt req the following assistanc: Aid of another person, Walker Home Health Nursing Orders Home Health Services Order: Nursing Services, Paper Folder-Evaluate & Treat, Physical Therapy-Evaluate & Treat Home Health Infusion Therapy Line Start Date: Jun 21, 2017 Line Start Time: 1645 Line Type: Site Location: Therapy Orders Therapy Orders: OT (must have SN or PT order), Physical Therapy, PT to assess for OT Therapy Specific Orders: Eval assistive deivces, Increase strength/endurance Certify Stmt I certify that this patient is under my care and that I, a nurse practitioner or a physician; a assistant commissioner working with me, had a face to face encounter that - meets the physician face to face encounter requirements with this patient as dated. Copy Copies To 1: ABHINAV GONZALEZ MD, JULIE A MD Jun 23, 2017 10:32 am
--- NOTE | 2017-06-23 17:58 | Discharge Summary ---
Diagnosis/Chief Complaint Date of Admission Jun 21, 2017 at 18:00 Date of Discharge Jun 23, 2017 at 13:10 Admission Diagnosis Admission Diagnosis SEE BELOW Discharge Diagnosis COMMUNITY ACQUIRED PNEUMONIA COPD CHRONIC SYSTOLIC CHF CAD ADM: Patient has a new oxygen requirement with an elevated WBC count. Will go ahead and treat presumptively given his chronic lung disease. Will hold on steroids for now. Recheck labs in AM. Lactate WNL; no signs of sepsis today. Breathing tx QID. Will restart home meds as well. Patient's asking about home health which sounds like a great idea; will do what we can to arrange on Sunday if he is discharged by then. DIS: Yossi was noticeably improved this morning. He is on his usual O2 regimen of 2-3L without shortness of breath. His WBC are down. No sign of acute heart failure as he has had no edema and lungs are clear this morning. Will send out on Vantin and Azithromycin. Should contineu his nebs. HOlding steroids. Restart usual cardiac regimen at home as well. We will arrange home health on Sunday; order written today. Chief Complaint/HPI Chief Complaint/HPI Yossi is a pleasant 77yo gentleman who has had increasing shortness of breath over the past week according to his , his main complaint inspector. He has a history of COPD and CHF and usually wears oxygen (3LPM NC) at night. However, he has started wearing it during benny day the past few days. He had a temp of 100 so his gave him tylenol and brought him to ER. HE has had a dry cough but no sputum and no hemoptysis. He states his legs are always bright red and look better than they have been; he has not noticed any edema. Of note, Mr Durham was hospitalized earlier this year for a hip fracture and was in a halfway for rehab. He has been home since November. His has a HOUSING COORDINATOR that helps. THey do not currently have home health. Discharge Summary-Simple/Stand Consultations Discharge Physical Examination Allergies: Coded Allergies: Penicillins (Verified Allergy, Severe, HIVES, SOB, 07/02/15) codeine (Verified Allergy, Severe, SOB, HIVES, 07/02/15) Vitals & I&Os Vital Sign - Last 12Hours Date Time Temp Pulse Resp B/P (MAP) Pulse Ox O2 Delivery O2 Flow Rate FiO2 06/23/17 10:46 94 Nasal Cannula 3.00 06/23/17 08:00 97.5 81 20 121/61 06/21/17 19:59 36 General Appearance: Alert, Oriented X3, Cooperative, No Acute Distress Respiratory: Clear to Auscultation, Normal Air Movement Cardiovascular: Regular Rate, Normal S1, Normal S2, No Murmurs, Gallops, Rubs Abdominal: Normal Bowel Sounds, Soft, No Tenderness, No Hepatosplenomegaly, No Masses Extremities: No Clubbing, No Cyanosis, No Edema Skin: No Breakdown, No Significant Lesion, Other (slight erythema of legs, unchanged since admission) Neuro: Normal Speech, Strength at 5/5 X4 Ext, Normal Tone Psych/Mental Status: Mental Status NL, Mood NL Hospital Course See final discharge diagnosis. Radiology Reviewed Date of Exam: 06/22/17 CHEST PA/LAT (2 VIEW) INDICATION: Pneumonia. COMPARISON STUDY: Chest from 06/21/2017. FINDINGS: Frontal and lateral views of the chest again demonstrates poor inspiration with some elevation of the right diaphragm. Cardiac pacemaker is present with coronary artery bypass graft changes. Peribronchial thickening has nearly resolved. IMPRESSION: The peribronchial thickening has nearly resolved. Discharge Instructions to patient/family Please see electronic discharge instructions given to patient. Discharge Medications Reviewed and agree with Discharge Medication list on patient's Discharge Instruction sheet Clinical Quality Measures DVT/VTE Risk/Contraindication: Risk Factor Score Per Nursin RFS Level Per Nursing on Admit: 4+=Very High Copy Copies To 1: ABHINAV GONZALEZ MD, JULIE A MD Jun 23, 2017 17:58
--- NOTE | 2017-06-25 10:14 | Physician Query Clarification ---
PQ-Conflicting Diagnosis Admission/Discharge Admission Date: Jun 21, 2017 at 18:00 Discharge Date: Jun 23, 2017 at 13:10 The medical record reflects the following clinical scenario: History/Risk Factors: Pneumonia Clinical Findings: T101.3, P102, R20, WBC 15.1, Lactic 1.25 Treatment: IV Rocephin, IV Azithromycin Question: Do you agree with the impression of the sepsis per Dr. Alvarez. Please document a response below. PHYSICIAN RESPONSE Do you agree w/Consulting Dx?: Yes Explanation of clincal finding my error of omission, thank you for checking. In responding to this query, please exercise your independent professional judgment. The purpose of this communication is to more accurately reflect the complexity of your patients condition. The fact that a question is asked does not imply that any particular answer is desired or expected. Thank you for your timely response to this clarification. Requestors name: Brandon THIS PHYSICIAN QUERY FORM IS A PERMANENT PART OF THE MEDICAL RECORD BRANDON ALBARRAN Jun 25, 2017 10:14 EDIS SHEARER MD Jun 25, 2017 11:30
== END 2017-06-23 13:10 | disposition home health service (06) | DRG 871 ==
LOC: EDUNIT# 16:33 → ER 16:34 → 4TH 18:00
PROVIDERS: ADMIT Pediatrics; ATTEND Pediatrics
DX: A41.9 Sepsis, unspecified organism (principal); J18.9 Pneumonia, unspecified organism; J44.9 Chronic obstructive pulmonary disease, unspecified; I50.22 Chronic systolic (congestive) heart failure; N39.0 Urinary tract infection, site not specified; F03.90 Unspecified dementia, unspecified severity, without behavioral disturbance, psychotic disturbance, mood disturbance, and anxiety; I25.10 Atherosclerotic heart disease of native coronary artery without angina pectoris; E78.00 Pure hypercholesterolemia, unspecified; I10 Essential (primary) hypertension; K21.9 Gastro-esophageal reflux disease without esophagitis; F17.210 Nicotine dependence, cigarettes, uncomplicated; I87.8 Other specified disorders of veins; Z95.1 Presence of aortocoronary bypass graft; Z95.5 Presence of coronary angioplasty implant and graft; Z95.810 Presence of automatic (implantable) cardiac defibrillator
CPT/HCPCS: 36415; 71010; 71020; 80053; 80162; 81000; 83605; 83735; 83880; 85007; 85025; 85027; 85610; 85730; 87040; 87077; 87088; 87186; 87804; 93041; 94640; 94664; 94760; 96365; 96375

== ENCOUNTER → 2017-07-19 | Outpatient (CLI) | payer MEDICARE, MEDICAID ==
[~2017-07-19] MED LIST changes: +ALBU18HF2 IH; +AZIT250T12 PO; +CEFP200T2 PO; +ESOM40CA52 PO; +METO50TA15 PO; -METO50TA2 PO
[2017-07-19 09:43] LABS: BUN/CREATININE RATIO 11; CARBON DIOXIDE 30 MMOL/L (21-32); CHLORIDE 99 MMOL/L (98-107); CHOLESTEROL 180 MG/DL (< 200); CREATININE SERUM 0.97 MG/DL (0.60-1.30); GFR ESTIMATED > 60; GLUCOSE 101 MG/DL (70-105); HDL CHOLESTEROL 30 MG/DL (40-60); POTASSIUM 4.2 MMOL/L (3.6-5.0); SODIUM 141 MMOL/L (135-145); TRIGLYCERIDES 107 MG/DL (<150); VLDL CHOLESTEROL 21 MG/DL (5-40)
== END ==
LOC: HH 07:00
PROVIDERS: ATTEND Internal Medicine
DX: E78.00 Pure hypercholesterolemia, unspecified (principal); I50.22 Chronic systolic (congestive) heart failure
CPT/HCPCS: 80048; 80061

== ENCOUNTER 2018-01-04 11:45 | Observation (INO) | payer MEDICARE, MEDICAID ==
[~2018-01-04] VITALS: Ht 165.1 cm; Wt 94.3 kg
--- OUTSIDE RECORDS SUMMARY | 2018-01-04 11:52 | XMS REPORT ---
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 Active 42622949 Problem Ventricular arrhythmia I49.9 Active 42176418 Problem Essential hypertension I10 Active 08623152 Problem Coronary artery disease involving [place] coronary artery of [place] heart without angina pectoris I25.10 Active 1048140962502 Problem Stasis dermatitis of both legs I87.2 Active 18428060 Problem Chronic obstructive pulmonary disease, unspecified COPD type J44.9 Active 98234366 ALLERGIES Substance Reaction Event Type Date Status Penicillin V Potassium Unknown Drug Allergy Feb, Active Codeine Phosphate Unknown Drug Allergy Feb, Active ENCOUNTERS Encounter Location Date Diagnosis [facility] [id number] [place] [address] Oct, Medicare annual wellness visit, initial Z00.00 ; Encounter for immunization Z23 ; Chronic obstructive pulmonary disease, unspecified COPD type J44.9 ; Coronary artery disease involving [place] coronary artery of [place] heart without angina pectoris I25.10 ; Chronic congestive heart failure, unspecified congestive heart failure type I50.9 ; Essential hypertension I10 ; Ventricular arrhythmia I49.9 and Other atherosclerosis of [place] arteries of extremities, 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 [facility] [id number] [address] Sep, Chronic congestive heart failure, unspecified congestive heart failure type I50.9 [facility] [id number] [place] [address]83[address] Aug, [facility] [address] [place] [address] 82[address] Aug, Chronic congestive heart failure, unspecified congestive heart failure type I50.9 ; Chronic obstructive pulmonary disease, unspecified COPD type J44.9 and Bilateral impacted cerumen H61.23 [facility] [id number] [place] [address] 32026- [address] Jul, [facility] [id number] [place] [address] 50708- 3298 Jul, [facility] [id number] [place] [address] 15364- 7048 Jun, [facility] [id number] [place] [address] 50446- 58[address] Jun, [facility] [id number] [place] [address] 88568- 6783 Jun, Coronary artery disease involving [place] coronary artery of [place] heart without angina pectoris I25.10 [facility] [address] [place] [address] 28632- 8397 Jun, [facility] [id number] [place] [address] 86309- [address] May, Chronic obstructive pulmonary disease, unspecified COPD type J44.9 and History of pneumonia Z87.01 [facility] [place] [id number] [place] [id number] May, [facility] [address] [place] [address] 28777- 1216 May, [facility] [id number] [place] [address] 56283- 1362 May, [facility] [address] [place] [address] 27043- 1408 May, [facility] [address] [place] [address] 77989- 0136 Apr, [place] [address] [place] [address] 22960- 4445 Apr, Coronary artery disease involving [place] coronary artery of [place] heart without angina pectoris I25.10 and Ventricular arrhythmia I49.9 [place] [id number] [place] [address] 33336- 1872 Apr, [place] [id number] [place] [address] 04452- 0697 Apr, [facility] [id number] [place] [address] 80719 -[address]398 Apr, Dysuria R30.0 and Acute cystitis without hematuria N30.00 [place] [id number] [place] [address] 67471- 6537 Feb, Epistaxis R04.0 and Chronic obstructive pulmonary disease, unspecified COPD type J44.9 [place] [id number] [place] [address] 18272- 2647 Jan, Fall from other pedestrian conveyance, initial encounter V00.891A [place] [id number] [place] [address] 07025- 2884 Jan, Chronic congestive heart failure, unspecified congestive heart failure type I50.9 ; Chronic obstructive pulmonary disease, unspecified COPD type J44.9 and Stasis dermatitis of both legs I87.2 [place] [address] [place] [address] 37795- 4676 November, Chronic congestive heart failure, unspecified congestive heart failure type I50.9 [place] [id number] [place] [address] 84946- 7690 November, Coronary artery disease involving [place] coronary artery of [place] heart without angina pectoris I25.10 ; Chronic congestive heart failure, unspecified congestive heart failure type I50.9 and Chronic obstructive pulmonary disease, unspecified COPD type J44.9 [place] [id number] [place] [address] 64205- 2354 Oct, [facility] [address] [facility] [id number], [place] [address] Oct, [facility] [address] [id number] [id number] Oct, [facility] [address] [id number] [id number] Sep, [facility] [address] [place] [id number] Sep, Essential hypertension I10 and Chronic congestive heart failure, unspecified congestive heart failure type I50.9 [facility] [address] [id number] [id number] Sep, [facility] [address] [facility] [id number], [place] [address] Sep, [facility] [address] [facility] [id number], [place] [address] Jun, [facility] [address] [facility] [id number], [place] [address] Jun, [facility] [id number] [address] May, [facility] [address] [facility] [id number], [place] [address] May, [facility] [address] [facility] [id number], [place] [address] May, [facility] [address] [facility] [id number], [place] [address] May, [facility] [address] [facility] [id number], [place] [address] May, Chronic congestive heart failure, unspecified congestive heart failure type I50.9 [facility] [address] [id number], [place] [address] May, Pain of right lower extremity M79.604 ; History of atrial fibrillation without current medication Z86.79 and Acute deep vein thrombosis ( DVT) of femoral vein of right lower extremity I82.411 [facility] [address] [facility] [id number] [place] [address] May, [facility] [address] [facility] [id number], [place] [address] Feb, [facility] [address] [facility] [id number], [place] [address] Feb, Coronary artery disease involving [place] coronary artery of [place] heart without angina pectoris I25.10 ; Chronic congestive heart failure, unspecified congestive heart failure type I50.9 ; Cardiac defibrillator in place Z95.810 and Candidiasis B37.9 IMMUNIZATIONS No Known Immunizations SOCIAL HISTORY Never Assessed REASON FOR VISIT Hospital f/u- [facility] 03/17/17, UTI and Nosebleed. CBrumbackRN PLAN OF CARE Activity Details Follow Up 2 Months Reason: VITAL SIGNS Height 65 in 2017-03-23 Weight 203.2 lbs 2017-03-23 Temperature 97.6 degrees Fahrenheit 2017-03-23 Heart Rate 80 bpm 2017-03-23 Respiratory Rate 20 2017-03-23 BMI 33.81 kg/m2 2017-03-23 Blood pressure systolic 140 mmHg 2017-03-23 Blood pressure diastolic 72 mmHg 2017-03-23 MEDICATIONS Medication Instructions Dosage Frequency Start Date End Date Duration Status Nitrofurantoin Monohyd Macro 100 mg Orally every 12 hrs 1 capsule with food 12h Feb, Active Digoxin 125 MCG Orally Once a day 1 tablet 24h Active Nexium 40 MG Orally Once a day 1 capsule 24h Active Aspir-81 Active Klor-Con 8 MEQ Orally Once a day 1 tablet 24h Active Metoprolol Tartrate 50 mg Orally Twice a day 1/2 tablet with food 12h Active Amlodipine Besylate 5 MG Orally Once a day 1 tablet 24h Active Amiodarone HCl 200 MG Orally Once a day 1 tablet 24h Active ProAir HFA 108 (90 Base) MCG/ACT Inhalation 4 times a day 2 puffs as needed 6h November, 30 days Active Benzonatate 200 mg Orally 2 times a day 1 capsule as needed 12h Active Mexiletine HCl 150 MG Orally every 8 hrs 1 capsule 8h Active Furosemide 40 MG Orally Once a day 1 tablet 24h Active RESULTS No Results PROCEDURES Procedure Date Ordered Result Body Site [facility] VISIT ESTABLISHED PATIENT Mar 23, 2017 INSTRUCTIONS MEDICATIONS ADMINISTERED No Known Medications MEDICAL (GENERAL) HISTORY Type Description Date Medical History hypertension Medical History skin cancer-arms, face Medical History [place] Medical History Pneumonia Surgical History heart cath-2 stents, multiple balloons Surgical History open heart surgery 1987 Surgical History defibrillator placed 2013 Hospitalization History surgery Hospitalization History pneumonia 2014 Hospitalization History broken left hip at September Hospitalization History Bronchitis/clinical Pneumonia,hypoxia,sepsis - [facility] 06/21/17
--- OUTSIDE RECORDS SUMMARY | 2018-01-04 11:53 | XMS REPORT ---
Author Author EDIS SHEARER Organization [facility] Address [address] [place] [address] Care Team Providers Care Freezing Machine Operator Name Role Phone EDIS SHEARER Unavailable PROBLEMS Type Condition ICD9-CM Code KOR99-VL Code Onset Dates Condition Status SNOMED Code Problem Cardiac defibrillator in place Z95.810 Active 799114460 Problem Chronic congestive heart failure, unspecified congestive heart failure type I50.9 Active 88264799 Problem Other atherosclerosis of coy[place] arteries of extremities, 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 Active 37155881 Problem Ventricular arrhythmia I49.9 Active 18684788 Problem Essential hypertension I10 Active 92530600 Problem Coronary artery disease involving [place] coronary artery of coyote [place] heart without angina pectoris I25.10 Active [id number] Problem Stasis dermatitis of both legs I87.2 Active 88792780 Problem Chronic obstructive pulmonary disease, unspecified COPD type J44.9 Active 85725731 ALLERGIES No Information ENCOUNTERS Encounter Location Date Diagnosis [facility] [id number] [place] [address] November, Acute cystitis without hematuria N30.00 [facility] [id number] [place] [address]56 November, Acute cystitis without hematuria N30.00 [facility] [id number] [place] [address] 94653- 1658 November, [facility] [address] [address] Oct, Medicare annual wellness visit, initial Z00.00 ; Encounter for immunization Z23 ; Chronic obstructive pulmonary disease, unspecified COPD type J44.9 ; Coronary artery disease involving coyote valley coronary artery of coyote [place] heart without angina pectoris I25.10 ; Chronic congestive heart failure, unspecified congestive heart failure type I50.9 ; Essential hypertension I10 ; Ventricular arrhythmia I49.9 and Other atherosclerosis of coy[place] arteries of extremities, 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 [place] [id number] [place] [address] 09452- 9663 Sep, Chronic congestive heart failure, unspecified congestive heart failure type I50.9 [facility] [id number] [place] [address] 62755- 2856 Aug, [place] [address] [address] 4439 Aug, Chronic congestive heart failure, unspecified congestive heart failure type I50.9 ; Chronic obstructive pulmonary disease, unspecified COPD type J44.9 and Bilateral impacted cerumen H61.23 [place] [id number] [place] [address] 16611- 0868 Jul, [place] [address] 22600- 6381 Jul, [facility] [id number] [place] [address] 34321- 5506 Jun, [place] [id number] [place] [address] 49256- 8573 Jun, [place] [id number] [place] [address] 37199- 7896 Jun, Coronary artery disease involving coy[place] coronary artery of coy[place] heart without angina pectoris I25.10 [place] [id number] [place] [address] 53445- 9501 Jun, [facility] [id number] [place] [address] 55629- 3590 May, Chronic obstructive pulmonary disease, unspecified COPD type J44.9 and History of pneumonia Z87.01 [facility] [id number] [place] [address] [phone] May, [place] [address] 5[address]36[address] 6667 May, [facility] [address] [address] 2[address] May, [facility] [id number] [place] [address] 10662- 0474 May, [facility] [id number] [place] [address] 84207- 3847 Apr, [facility] [id number] [place] [address] 79676- 2784 Apr, Coronary artery disease involving coy[place] coronary artery of coyote [place] heart without angina pectoris I25.10 and Ventricular arrhythmia I49.9 [place] [id number] [place] [address] 79654- 5386 Apr, [facility] [id number] [place] [address] 30688- 5434 Apr, [facility] [id number] [place] [address] 28163 -9823 Apr, Dysuria R30.0 and Acute cystitis without hematuria N30.00 [place] [id number] [place] [address] 76689- 3606 Feb, Epistaxis R04.0 and Chronic obstructive pulmonary disease, unspecified COPD type J44.9 [place] [address] [place] [address] 12732- 9467 Jan, Fall from other pedestrian conveyance, initial encounter V00.891A [facility] [address] [place] [address] 60475- 3557 Jan, Chronic congestive heart failure, unspecified congestive heart failure type I50.9 ; Chronic obstructive pulmonary disease, unspecified COPD type J44.9 and Stasis dermatitis of both legs I87.2 [facility] [address] [address] November, Chronic congestive heart failure, unspecified congestive heart failure type I50.9 [facility] [id number] [address] November, Coronary artery disease involving coy[place] coronary artery of coyote valley heart without angina pectoris I25.10 ; Chronic congestive heart failure, unspecified congestive heart failure type I50.9 and Chronic obstructive pulmonary disease, unspecified COPD type J44.9 [facility] [address] [address] 64[address] Oct, [facility] [address] [facility] [id number] [address] [address] Oct, [facility] [id number] [id number] Oct, [facility] [id number] [place] [phone] Sep, [facility] [address] [place] [id number] Sep, Essential hypertension I10 and Chronic congestive heart failure, unspecified congestive heart failure type I50.9 [facility] [id number] [id number] Sep, [facility] [address] [address] 7742 Sep, [facility] [address] [address] 1148 Jun, [facility] [address], [place] [address] 9502 Jun, [facility] [id number] [address] May, [facility] [id number] [address] 04[address] May, [facility] [address], [place] [address]- 2070 May, [facility] [id number] [address] 3844 May, [facility] [id number] [address] 6294 May, Chronic congestive heart failure, unspecified congestive heart failure type I50.9 [facility] [address], [place] [address] May, Pain of right lower extremity M79.604 ; History of atrial fibrillation without current medication Z86.79 and Acute deep vein thrombosis ( DVT) of femoral vein of right lower extremity I82.411 [facility] [address], [place] [address]- 6[address] May, [facility] [address], [place] [address]- 3068 Feb, [facility] [address] [place] [address] 32796- 0298 Feb, Coronary artery disease involving coy[place] coronary artery of coyote valley heart without angina pectoris I25.10 ; Chronic congestive heart failure, unspecified congestive heart failure type I50.9 ; Cardiac defibrillator in place Z95.810 and Candidiasis B37.9 IMMUNIZATIONS No Known Immunizations SOCIAL HISTORY Never Assessed REASON FOR VISIT Hospital admit/DC PLAN OF CARE VITAL SIGNS MEDICATIONS Medication Instructions Dosage Frequency Start Date End Date Duration Status Metoprolol Tartrate 50 mg Orally Twice a day 1/2 tablet with food 12h Active Klor-Con 8 MEQ Orally Once a day 1 tablet 24h Active ProAir HFA 108 (90 Base) MCG/ACT Inhalation 4 times a day 2 puffs as needed 6h November, 30 days Active Cefpodoxime Proxetil 200 MG Orally every 12 hrs 1 tablet 12h May, Jun, Active Nexium 40 MG Orally Once a day 1 capsule 24h Active Amiodarone HCl 200 mg Orally twice weekly on sunday and sunday 1 tablet Active MiraLax 17 gm/dose Orally Once a day 17 grams mixed in 8 oz of water or juice 24h Not-Taking Benzonatate 200 mg Orally 2 times a day 1 capsule as needed 12h Not-Taking Wheelchair - as directed Apr, Active Digoxin 125 MCG Orally Once a day 1 tablet 24h Active Mexiletine HCl 150 MG Orally every 8 hrs 1 capsule 8h Active Amlodipine Besylate 5 MG Orally Once a day 1 tablet 24h Active Furosemide 40 mg Orally twice a day 1 tablet 12h Active RESULTS No Results PROCEDURES No Known procedures INSTRUCTIONS MEDICATIONS ADMINISTERED No Known Medications MEDICAL (GENERAL) HISTORY Type Description Date Medical History hypertension Medical History skin cancer-arms, face Medical History [place] Medical History Pneumonia Surgical History heart cath-2 stents, multiple balloons Surgical History open heart surgery 1987 Surgical History defibrillator placed 2013 Hospitalization History surgery Hospitalization History pneumonia 2014 Hospitalization History broken left hip at September Hospitalization History Bronchitis/clinical Pneumonia,hypoxia,sepsis - [facility] 06/21/17
--- OUTSIDE RECORDS SUMMARY | 2018-01-04 11:53 | XMS REPORT ---
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 Active 45766547 Problem Ventricular arrhythmia I49.9 Active 55229323 Problem Essential hypertension I10 Active 76884538 Problem Coronary artery disease involving saxman coronary artery of saxman heart without angina pectoris I25.10 Active 9146488713333 Problem Stasis dermatitis of both legs I87.2 Active 15102804 Problem Chronic obstructive pulmonary disease, unspecified COPD type J44.9 Active 49380973 ALLERGIES No Information ENCOUNTERS Encounter Location Date Diagnosis [facility] [id number] [place] [address]10 [address]73 November, Acute cystitis without hematuria N30.00 [facility] [id number] [place] [address] 79412 -9251 November, Acute cystitis without hematuria N30.00 [facility] [id number] [place] [address] 99519- 6328 November, [facility] [id number] [place] [address] 46358- 3329 Oct, Encounter for immunization Z23 ; Medicare annual wellness visit, initial Z00.00 ; Chronic obstructive pulmonary disease, unspecified COPD type J44.9 ; Coronary artery disease involving saxman coronary artery of saxman heart without angina pectoris I25.10 ; Chronic congestive heart failure, unspecified congestive heart failure type I50.9 ; Essential hypertension I10 ; Ventricular arrhythmia I49.9 and Other atherosclerosis of saxman arteries of extremities, 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 [place] [id number] [place] [address] 60707- 1849 Sep, Chronic congestive heart failure, unspecified congestive heart failure type I50.9 [facility] [id number] [place] [address] 69203- 2397 Aug, [place] [address] [address]- [address]21 Aug, Chronic congestive heart failure, unspecified congestive heart failure type I50.9 ; Chronic obstructive pulmonary disease, unspecified COPD type J44.9 and Bilateral impacted cerumen H61.23 [place] [id number] [place] [address] 09454- 2474 Jul, [place] [address] [address]- 5342 Jul, [facility] [id number] [place] [address] 18185- 2295 Jun, [place] [id number] [place] [address] 11602- 1848 Jun, [facility] [id number] [place] [address] 50035- 9164 Jun, Coronary artery disease involving saxman coronary artery of saxman heart without angina pectoris I25.10 [place] [id number] [place] [address] 20202- 8186 Jun, [facility] [id number] [place] [address] 27691- 9459 May, Chronic obstructive pulmonary disease, unspecified COPD type J44.9 and History of pneumonia Z87.01 [facility] [id number] [place] [address] [id number] May, [place] [address] 39594- 8125 May, [facility] [address], [place] [address]- 9158 May, [facility] [id number] [place] [address] 94925- 8690 May, [facility] [id number] [place] [address] 94119- 6755 Apr, [facility] [id number] [place] [address] 96971- 2245 Apr, Coronary artery disease involving saxman coronary artery of saxman heart without angina pectoris I25.10 and Ventricular arrhythmia I49.9 [facility] [id number] [place] [address] 08620- 3728 Apr, [facility] [id number] [place] [address] 46174- 6752 Apr, [facility] [id number] [place] [address] 74630 -7992 Apr, Dysuria R30.0 and Acute cystitis without hematuria N30.00 [facility] [id number] [place] [address] 69925- 0350 Feb, Epistaxis R04.0 and Chronic obstructive pulmonary disease, unspecified COPD type J44.9 [facility] [address] [place] [address] 08510- 9432 Jan, Fall from other pedestrian conveyance, initial encounter V00.891A [facility] [address] [address]- 0[address] Jan, Chronic congestive heart failure, unspecified congestive heart failure type I50.9 ; Chronic obstructive pulmonary disease, unspecified COPD type J44.9 and Stasis dermatitis of both legs I87.2 [facility] [address] [address]- 2161 November, Chronic congestive heart failure, unspecified congestive heart failure type I50.9 [facility] [id number] [address]- 4033 November, Coronary artery disease involving saxman coronary artery of saxman heart without angina pectoris I25.10 ; Chronic congestive heart failure, unspecified congestive heart failure type I50.9 and Chronic obstructive pulmonary disease, unspecified COPD type J44.9 [facility] [address] [facility] [id number] [address]- 7567 Oct, [facility] [address] [facility] [id number] [address]- 6138 Oct, [facility] [id number] [id number] Oct, [facility] [id number] [place] [address] [id number] Sep, [facility] [employer] [address] [facility] [id number] Sep, Essential hypertension I10 and Chronic congestive heart failure, unspecified congestive heart failure type I50.9 [facility] [id number] [id number] Sep, [facility] [address], [place] [address]- 7775 Sep, [facility] [address], [place] [address]- 6850 Jun, [facility] [id number] [address]- 6389 Jun, [facility] [id number], [place] [address]- 2341 May, [facility] [id number], [place] [address]- 3369 May, [facility] [id number] [address]- 5910 May, [facility] [id number] [address]- 6311 May, [facility] [address] [facility] [id number] [address]- 9103 May, Chronic congestive heart failure, unspecified congestive heart failure type I50.9 [facility] [address] [address] May, Pain of right lower extremity M79.604 ; History of atrial fibrillation without current medication Z86.79 and Acute deep vein thrombosis ( DVT) of femoral vein of right lower extremity I82.411 [facility] [address] [address]- 5058 May, [facility] [address] [place] [address] 53422- 9874 Feb, [facility] [address], [place] [address]- 8735 Feb, Coronary artery disease involving saxman coronary artery of saxman heart without angina pectoris I25.10 ; Chronic congestive heart failure, unspecified congestive heart failure type I50.9 ; Cardiac defibrillator in place Z95.810 and Candidiasis B37.9 IMMUNIZATIONS No Known Immunizations SOCIAL HISTORY Never Assessed REASON FOR VISIT Letter to [facility] VITAL SIGNS MEDICATIONS Unknown Medications RESULTS No Results PROCEDURES No Known procedures INSTRUCTIONS MEDICATIONS ADMINISTERED No Known Medications MEDICAL (GENERAL) HISTORY Type Description Date Medical History hypertension Medical History skin cancer-arms, face Medical History [place] Medical History Pneumonia Surgical History heart cath-2 stents, multiple balloons Surgical History open heart surgery 1987 Surgical History defibrillator placed 2013 Hospitalization History surgery Hospitalization History pneumonia 2014 Hospitalization History broken left hip at September Hospitalization History Bronchitis/clinical Pneumonia,hypoxia,sepsis - [facility] 06/21/17
--- OUTSIDE RECORDS SUMMARY | 2018-01-04 11:55 | XMS REPORT ---
Author Author ABHINAV GONZALEZ Organization [facility] [place] Address [address] [place] [address] Care Team Providers Care Yarn Polishing Machine Operator Name Role Phone ABHINAV GONZALEZ Unavailable PROBLEMS Type Condition ICD9-CM Code TPQ76-UK Code Onset Dates Condition Status SNOMED Code Problem Cardiac defibrillator in place Z95.810 Active 579718243 Problem Chronic congestive heart failure, unspecified congestive heart failure type I50.9 Active 95759602 Problem Other atherosclerosis of [place]-apache arteries of extremities, 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 Active 98783927 Problem Ventricular arrhythmia I49.9 Active 87041661 Problem Essential hypertension I10 Active 75024380 Problem Coronary artery disease involving [place]ap[place]-apache coronary artery of [place]-apache heart without angina pectoris I25.10 Active 5465523718323 Problem Stasis dermatitis of both legs I87.2 Active 79646160 Problem Chronic obstructive pulmonary disease, unspecified COPD type J44.9 Active 49296318 ALLERGIES No Information ENCOUNTERS Encounter Location Date Diagnosis [facility] [id number] [place] [address] November, Acute cystitis without hematuria N30.00 [facility] [place] [id number] [place] [address] 06962[address] 5343 November, [facility] [place] [id number] [place] [address] 18566- 5939 Oct, Medicare annual wellness visit, initial Z00.00 ; Encounter for immunization Z23 ; Chronic obstructive pulmonary disease, unspecified COPD type J44.9 ; Coronary artery disease involving yavapai-apache coronary artery of [place]-apache heart without angina pectoris I25.10 ; Chronic congestive heart failure, unspecified congestive heart failure type I50.9 ; Essential hypertension I10 ; Ventricular arrhythmia I49.9 and Other atherosclerosis of [place]ap[place]-apache arteries of extremities, 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 [facility] [place] [id number] [place] [address] 07530- 5933 Sep, Chronic congestive heart failure, unspecified congestive heart failure type I50.9 [facility] [place] [address], [place] [address] Aug, [facility] [place] [address], [place] [address] 13 Aug, 2017 Chronic congestive heart failure, unspecified congestive heart failure type I50.9 ; Chronic obstructive pulmonary disease, unspecified COPD type J44.9 and Bilateral impacted cerumen H61.23 [facility] [place] [id number], [place] [address] Jul, [facility] [place] [id number] [place] [address] 17286- 3149 Jul, [facility] [place] [id number] [place] [address] 33431- 3114 Jun, [facility] [place] [id number] [place] [address] 11264- 8437 Jun, [facility] [place] [id number] [place] [address] 99652- 6023 Jun, Coronary artery disease involving yavapai-apache coronary artery of yavapai-apache heart without angina pectoris I25.10 [facility] [place] [address], [place] [address] Jun, [facility] [place] [address], [place] [address] May, Chronic obstructive pulmonary disease, unspecified COPD type J44.9 and History of pneumonia Z87.01 [facility] [id number] [id number] May, [facility] [place] [address], [place] [address] May, [facility] [place] [address], [place] [address] May, [facility] [place] [address], [place] [address] May, [facility] [place] [id number] [place] [address] 21476- 2600 Apr, [facility] [place] [id number] [place] [address] 91494- 9208 Apr, Coronary artery disease involving yavapai-apache coronary artery of yavapai-apache heart without angina pectoris I25.10 and Ventricular arrhythmia I49.9 [place] [id number] [place] [address] 13581- 1199 Apr, [facility] [place] [id number] [place] [address] 64623- 4111 Apr, [facility] IN [facility] [id number] [place] [address] 70727 -5760 Apr, Dysuria R30.0 and Acute cystitis without hematuria N30.00 [place] [id number] [place] [address] 77087- 2537 Feb, Epistaxis R04.0 and Chronic obstructive pulmonary disease, unspecified COPD type J44.9 [place] [id number] [place] [address] 42128- 5601 Jan, Fall from other pedestrian conveyance, initial encounter V00.891A [place] [address] [place] [address] 28535- 9845 Jan, Chronic congestive heart failure, unspecified congestive heart failure type I50.9 ; Chronic obstructive pulmonary disease, unspecified COPD type J44.9 and Stasis dermatitis of both legs I87.2 [place] [address], [place] [address] November, Chronic congestive heart failure, unspecified congestive heart failure type I50.9 [place] [address], [place] [address] November, Coronary artery disease involving yavapai-apache coronary artery of yavapai-apache heart without angina pectoris I25.10 ; Chronic congestive heart failure, unspecified congestive heart failure type I50.9 and Chronic obstructive pulmonary disease, unspecified COPD type J44.9 [facility] [place] [address] [facility] [id number], [place] [address] Oct, [facility] [place] [address] [facility] [id number], [place] [address] Oct, [facility] [id number] [id number] Oct, [facility] [id number] [id number] Sep, Via [facility] [address] [place] [id number] Sep, Essential hypertension I10 and Chronic congestive heart failure, unspecified congestive heart failure type I50.9 [facility] [id number] [id number] Sep, [facility] [place] [address], [place] [address] Sep, [facility] [place] [address], [place] [address] 8[address] Jun, [facility] [place] [address], [place] [address] 7[address] Jun, [facility] [place] [address], [place] [address] May, [facility] [place] [address], [place] [address] May, [facility] [place] [address] [facility] [id number], [place] [address] May, [facility] [place] [address], [place] [address] May, [facility] [place] [address] [facility] [id number], [place] [address] May, Chronic congestive heart failure, unspecified congestive heart failure type I50.9 [facility] [address] [facility] [id number] [place] [address] May, Pain of right lower extremity M79.604 ; History of atrial fibrillation without current medication Z86.79 and Acute deep vein thrombosis ( DVT) of femoral vein of right lower extremity I82.411 [facility] [place] [address] [facility] [id number], [place] [address] May, [facility] [place] [address] [facility] [id number], [place] [address] 8257 Feb, [facility] [place] [address] [facility] [id number], [place] [address] 5[address] Feb, Coronary artery disease involving yavapai-apache coronary artery of yavapai-apache heart without angina pectoris I25.10 ; Chronic congestive heart failure, unspecified congestive heart failure type I50.9 ; Cardiac defibrillator in place Z95.810 and Candidiasis B37.9 IMMUNIZATIONS No Known Immunizations SOCIAL HISTORY Never Assessed REASON FOR VISIT Refill request PLAN OF CARE VITAL SIGNS MEDICATIONS Medication Instructions Dosage Frequency Start Date End Date Duration Status Metoprolol Tartrate 50 mg Orally Twice a day 1/2 tablet with food 12h Active RESULTS No Results PROCEDURES No Known procedures INSTRUCTIONS MEDICATIONS ADMINISTERED No Known Medications MEDICAL (GENERAL) HISTORY Type Description Date Medical History hypertension Medical History skin cancer-arms, face Medical History [place] Medical History Pneumonia Surgical History heart cath-2 stents, multiple balloons Surgical History open heart surgery 1987 Surgical History defibrillator placed 2013 Hospitalization History surgery Hospitalization History pneumonia 2014 Hospitalization History broken left hip at September Hospitalization History Bronchitis/clinical Pneumonia,hypoxia,sepsis - [facility] [place] 06/21/17
--- OUTSIDE RECORDS SUMMARY | 2018-01-04 11:55 | XMS REPORT ---
Author Author ABHINAV GONZALEZ [facility] Address [address] [place] [address] Care Team Providers Care Terrazzo Polisher Helper Name Role Phone ABHINAV GONZALEZ Unavailable PROBLEMS Type Condition ICD9-CM Code WTS80-KO Code Onset Dates Condition Status SNOMED Code Problem Cardiac defibrillator in place Z95.810 Active 303503470 Problem Chronic congestive heart failure, unspecified congestive heart failure type I50.9 Active 08277742 Problem Other atherosclerosis of torres martinez arteries of extremities, 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 Active 01218307 Problem Ventricular arrhythmia I49.9 Active 26240041 Problem Essential hypertension I10 Active 65173667 Problem Coronary artery disease involving torres martinez coronary artery of torres martinez heart without angina pectoris I25.10 Active 3486631459358 Problem Stasis dermatitis of both legs I87.2 Active 30480392 Problem Chronic obstructive pulmonary disease, unspecified COPD type J44.9 Active 04844735 ALLERGIES Substance Reaction Event Type Date Status Penicillin V Potassium rash Drug Allergy May, Active Codeine Phosphate Unknown Drug Allergy May, Active ENCOUNTERS Encounter Location Date Diagnosis [facility] IN [facility] [id number] [address] November, Acute cystitis without hematuria N30.00 [facility] IN [facility] [id number] [place] [address] 99708 [address]1274 November, Acute cystitis without hematuria N30.00 [facility] [address] [place] [address] 69602- 6349 November, [facility] [id number] [place] [address] 96195- 1645 Oct, Encounter for immunization Z23 ; Medicare annual wellness visit, initial Z00.00 ; Chronic obstructive pulmonary disease, unspecified COPD type J44.9 ; Coronary artery disease involving torres martinez coronary artery of torres martinez heart without angina pectoris I25.10 ; Chronic congestive heart failure, unspecified congestive heart failure type I50.9 ; Essential hypertension I10 ; Ventricular arrhythmia I49.9 and Other atherosclerosis of torres martinez arteries of extremities, 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 [place] [id number] [place] [address] 00583- 9227 Sep, Chronic congestive heart failure, unspecified congestive heart failure type I50.9 [place] [id number] [place] [address] 97620- 2208 20 Aug, 2017 [place] [id number] [place] [address] 36473- 9936 13 Aug, 2017 Chronic congestive heart failure, unspecified congestive heart failure type I50.9 ; Chronic obstructive pulmonary disease, unspecified COPD type J44.9 and Bilateral impacted cerumen H61.23 [place] [id number] [place] [address] 65553- 4058 Jul, [place] [id number] [place] [address] 26802- 0972 Jul, [facility] [id number] [place] [address] 78334- 4423 Jun, [place] [id number] [place] [address] 58603- 4378 Jun, [place] [id number] [place] [address] 18417- 6570 Jun, Coronary artery disease involving torres martinez coronary artery of torres martinez heart without angina pectoris I25.10 [place] [id number] [place] [address] 84539- 3926 Jun, [place] [id number] [place] [address] 40142- 8594 30 May, 2017 Chronic obstructive pulmonary disease, unspecified COPD type J44.9 and History of pneumonia Z87.01 [facility] [id number] [place] [address] [id number] May, [place] [address], [place] [address]- 4623 May, [facility] [id number] [place] [address] 30566- 8906 May, [facility] [address] [place] [address] 06272- 5839 May, [facility] [id number] [place] [address] 37532- 7981 Apr, [facility] [id number] [place] [address] 42160- 1540 Apr, Coronary artery disease involving torres martinez coronary artery of torres martinez heart without angina pectoris I25.10 and Ventricular arrhythmia I49.9 [place] [id number] [place] [address] 11703- 9768 Apr, [facility] [id number] [place] [address] 41087- 1944 Apr, [facility] [id number] [place] [address] 11342 -1807 Apr, Dysuria R30.0 and Acute cystitis without hematuria N30.00 [place] [address] [place] [address] 02630- 5307 Feb, Epistaxis R04.0 and Chronic obstructive pulmonary disease, unspecified COPD type J44.9 [place] [id number] [place] [address] 40018- 0181 Jan, Fall from other pedestrian conveyance, initial encounter V00.891A [place] [id number] [place] [address] 62300- 0321 Jan, Chronic congestive heart failure, unspecified congestive heart failure type I50.9 ; Chronic obstructive pulmonary disease, unspecified COPD type J44.9 and Stasis dermatitis of both legs I87.2 [facility] [address] [place] [address] 75191- 0707 November, Chronic congestive heart failure, unspecified congestive heart failure type I50.9 [facility] [address] [facility] [id number] [address] November, Coronary artery disease involving torres martinez coronary artery of torres martinez heart without angina pectoris I25.10 ; Chronic congestive heart failure, unspecified congestive heart failure type I50.9 and Chronic obstructive pulmonary disease, unspecified COPD type J44.9 [facility] [address] [facility] [id number], [place] [address] Oct, [facility] [address] [facility] [id number] [address] Oct, [facility] [address] [place] [id number] [id number] Oct, [facility] [id number] [id number] Sep, Via [facility] [address] [place] [id number] Sep, Essential hypertension I10 and Chronic congestive heart failure, unspecified congestive heart failure type I50.9 [facility] [id number] [id number] Sep, [facility] [id number] [address] 4[address] Sep, [facility] [id number], [place] [address]- 5655 Jun, [facility] [address] [facility] [id number][place] [address]- 8825 Jun, [facility] [address] [facility] [id number] [address] 6469 May, [facility] [address] [facility] [id number] [address] 3662 May, [facility] [address] [facility] [id number][place] [address] 7133 May, [facility] [address] [facility] [id number][place] [address]- 0460 May, [facility] [id number] [address] 5608 May, Chronic congestive heart failure, unspecified congestive heart failure type I50.9 [facility] [id number] [address] May, Pain of right lower extremity M79.604 ; History of atrial fibrillation without current medication Z86.79 and Acute deep vein thrombosis ( DVT) of femoral vein of right lower extremity I82.411 [facility] [address] [place] [address] 98857- 1678 May, [facility] [address] [place] [address] 93038- 2630 Feb, [facility] [address], [place] [address] 2654 Feb, Coronary artery disease involving torres martinez coronary artery of torres martinez heart without angina pectoris I25.10 ; Chronic congestive heart failure, unspecified congestive heart failure type I50.9 ; Cardiac defibrillator in place Z95.810 and Candidiasis B37.9 IMMUNIZATIONS No Known Immunizations SOCIAL HISTORY Never Assessed REASON FOR VISIT [facility] follow up- pneumonia, bronchitis- on ABTS not sure what. Victoriano, needs to have order oxygen to [facility] they need portable because pt goes to pay bill and is out an about. Or if he can go with out. PLAN OF CARE Activity Details Follow Up 3 Months Reason: VITAL SIGNS Height 65 in 2017-06-28 Weight 195.5 lbs 2017-06-28 Temperature 98.0 degrees Fahrenheit 2017-06-28 Heart Rate 80 bpm 2017-06-28 Respiratory Rate 22 2017-06-28 Oximetry w/ oxygen:99 % 2017-06-28 BMI 32.53 kg/m2 2017-06-28 Blood pressure systolic 140 mmHg 2017-06-28 Blood pressure diastolic 72 mmHg 2017-06-28 MEDICATIONS Medication Instructions Dosage Frequency Start Date End Date Duration Status Furosemide 40 mg Orally twice a day 1 tablet 12h Active Wheelchair - as directed Apr, Active ProAir HFA 108 (90 Base) MCG/ACT Inhalation 4 times a day 2 puffs as needed 6h November, 30 days Active Amiodarone HCl 200 mg Orally twice weekly on sunday and sunday 1 tablet Active Metoprolol Tartrate 50 mg Orally Twice a day 1/2 tablet with food 12h Active Nexium 40 MG Orally Once a day 1 capsule 24h Active All-In-One Nebulizer System - by inhalation route 2 times a day use for Breathing treatments 12h 30 May, 2017 Active Benzonatate 200 mg Orally 2 times a day 1 capsule as needed 12h Not-Taking Cefpodoxime Proxetil 200 MG Orally every 12 hrs 1 tablet 12h May, Jun, Active MiraLax 17 gm/dose Orally Once a day 17 grams mixed in 8 oz of water or juice 24h Not-Taking Nebulizer - as directed May, Active Klor-Con 8 MEQ Orally Once a day 1 tablet 24h Active Mexiletine HCl 150 MG Orally every 8 hrs 1 capsule 8h Active Amlodipine Besylate 5 MG Orally Once a day 1 tablet 24h Active Digoxin 125 MCG Orally Once a day 1 tablet 24h Active Albuterol Sulfate 1.25 MG/3ML Inhalation 2 times a day as directed 12h May, Active RESULTS No Results PROCEDURES Procedure Date Ordered Result Body Site MEASURE BLOOD OXYGEN LEVEL Jun 28, 2017 [facility] VISIT ESTABLISHED PATIENT Jun 28, 2017 INSTRUCTIONS MEDICATIONS ADMINISTERED No Known Medications MEDICAL (GENERAL) HISTORY Type Description Date Medical History hypertension Medical History skin cancer-arms, face Medical History [place] Medical History Pneumonia Surgical History heart cath-2 stents, multiple balloons Surgical History open heart surgery 1987 Surgical History defibrillator placed 2013 Hospitalization History surgery Hospitalization History pneumonia 2014 Hospitalization History broken left hip at September Hospitalization History Bronchitis/clinical Pneumonia,hypoxia,sepsis - Via [facility] 06/21/17
--- OUTSIDE RECORDS SUMMARY | 2018-01-04 11:55 | XMS REPORT ---
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 Active 8860831614004 Problem Cardiac defibrillator in place Z95.810 Active 321034752 Problem Chronic obstructive pulmonary disease, unspecified COPD type J44.9 Active 91999891 Problem Essential hypertension I10 Active 25553197 ALLERGIES No Information ENCOUNTERS Encounter Location Date Diagnosis [place] [id number] [place] [address] 92746- 0664 Oct, Medicare annual wellness visit, initial Z00.00 [place] [address] [place] [address] 04205- 5755 Sep, Chronic congestive heart failure, unspecified congestive heart failure type I50.9 [place] [address] [place] [address] 07553- 9175 Aug, [place] [address] [place] [id number] [place] [address] 74953- 4790 Aug, Chronic congestive heart failure, unspecified congestive heart failure type I50.9 ; Chronic obstructive pulmonary disease, unspecified COPD type J44.9 and Bilateral impacted cerumen H61.23 [place] [address] [address] Jul, [place] [address] [address] Jul, [facility] [address] [place] [address] 87310- 2220 Jun, [facility] [address], [place] [address] 7[address] Jun, [facility] [address] [place] [id number] [place] [address] 68294- 8884 Jun, Coronary artery disease 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.10 [facility] [address] [place] [id number] [place] [address] 49908- 0112 Jun, [facility] [address] [place] [id number] [place] [address] 04890- 1475 May, Chronic obstructive pulmonary disease, unspecified COPD type J44.9 and History of pneumonia Z87.01 [facility] [address] [place] [id number] [place] [address] [id number] May, [facility] [address] [place] [address] 46517- 4068 May, [facility] [address] [place] [id number] [place] [address] 47312- 7947 May, [facility] [address] [address] 3[address] May, [facility] [address], [place] [address] 2803 Apr, [facility] [address] [address] 59[address] Apr, Coronary artery disease 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.10 and Ventricular arrhythmia I49.9 [facility] [address], [place] [address] 5[address] Apr, [facility] [address] [place] [address] 21218- 9343 Apr, [facility] [address], [place] [address] Apr, Dysuria R30.0 and Acute cystitis without hematuria N30.00 [facility] [address] [place] [address] 09440- 3040 Feb, Epistaxis R04.0 and Chronic obstructive pulmonary disease, unspecified COPD type J44.9 [facility] [address] [place] [id number] [place] [address] 55837- 6616 Jan, Fall from other pedestrian conveyance, initial encounter V00.891A [place] [address] [address]- 6529 Jan, Chronic congestive heart failure, unspecified congestive heart failure type I50.9 ; Chronic obstructive pulmonary disease, unspecified COPD type J44.9 and Stasis dermatitis of both legs I87.2 [place] [address] [place] [id number] [place] [address] 36367- 5422 November, Chronic congestive heart failure, unspecified congestive heart failure type I50.9 [place] [address] [place] [id number] [place] [address] 54030- 1478 November, Coronary artery disease 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.10 ; Chronic congestive heart failure, unspecified congestive heart failure type I50.9 and Chronic obstructive pulmonary disease, unspecified COPD type J44.9 [place] [address] [place] [address] 58746- 9533 Oct, [place] [address] [place] [id number] [place] [address] 19667- 6870 Oct, [facility] [address] [place] [id number] [place] [address] [id number] Oct, [place] [address] [place] [id number] [place] [address] [id number] Sep, [facility] [address] [place] [id number] Sep, Essential hypertension I10 and Chronic congestive heart failure, unspecified congestive heart failure type I50.9 [facility] [address] [place] [id number] [id number] Sep, [facility] [address] [facility] [id number] [address] 408[address] Sep, [facility] [address] [facility] [id number], [place] [address] 67[address] Jun, [facility] [address] [facility] [id number], [place] [address] 8984 Jun, [facility] [address] [facility] [id number], [place] [address] 4329 May, [facility] [address] [place] [id number] [address] 78[address] May, [facility] [address], [place] [address]- 8241 May, [facility] [address], [place] [address] 6105 May, [facility] [address], [place] [address] May, Chronic congestive heart failure, unspecified congestive heart failure type I50.9 [facility] [address] [place] [id number] [address] May, Pain of right lower extremity M79.604 ; History of atrial fibrillation without current medication Z86.79 and Acute deep vein thrombosis ( DVT) of femoral vein of right lower extremity I82.411 [facility] [address] [place] [id number] [address]- 7269 May, [facility] [address], [place] [address]- 6715 Feb, [facility] [address] [place] [id number], [place] [address]- 5795 Feb, Coronary artery disease 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.10 ; Chronic congestive heart failure, unspecified congestive heart failure type I50.9 ; Cardiac defibrillator in place Z95.810 and Candidiasis B37.9 IMMUNIZATIONS No Known Immunizations SOCIAL HISTORY Never Assessed REASON FOR VISIT Requests return call PLAN OF CARE VITAL SIGNS MEDICATIONS Unknown Medications RESULTS No Results PROCEDURES No Known procedures INSTRUCTIONS MEDICATIONS ADMINISTERED No Known Medications MEDICAL (GENERAL) HISTORY Type Description Date Medical History hypertension Medical History skin cancer-arms, face Medical History ND Medical History Pneumonia Surgical History heart cath-2 stents, multiple balloons Surgical History open heart surgery 1987 Surgical History defibrillator placed 2013 Hospitalization History surgery Hospitalization History pneumonia 2014 Hospitalization History broken left hip at September Hospitalization History Bronchitis/clinical Pneumonia,hypoxia,sepsis - Via [facility] 06/21/17
--- OUTSIDE RECORDS SUMMARY | 2018-01-04 11:56 | XMS REPORT ---
Author Author ABHINAV GONZALEZ Organization [facility] Address [address] [place] [address] Care Team Providers Care Pharmacy Technician Infusion Name Role Phone ABHINAV GONZALEZ Unavailable PROBLEMS Type Condition ICD9-CM Code [id number] Code Onset Dates Condition Status SNOMED Code Problem Chronic congestive heart failure, unspecified congestive heart failure type I50.9 Active 86885661 Problem Ventricular arrhythmia I49.9 Active 90384749 Problem Stasis dermatitis of both legs I87.2 Active 43775613 Problem Coronary artery disease involving cahu[place] coronary artery of cahuilla heart without angina pectoris I25.10 Active 7370683445140 Problem Cardiac defibrillator in place Z95.810 Active 701453491 Problem Chronic obstructive pulmonary disease, unspecified COPD type J44.9 Active 70891934 Problem Essential hypertension I10 Active 46130267 ALLERGIES Substance Reaction Event Type Date Status Penicillin V Potassium Unknown Drug Allergy Jan, Active Codeine Phosphate Unknown Drug Allergy Jan, Active ENCOUNTERS Encounter Location Date Diagnosis [place] [address] [place] [address] 56090- 9057 Oct, Medicare annual wellness visit, initial Z00.00 [place] [address] [place] [address] 18934- 8322 Sep, Chronic congestive heart failure, unspecified congestive heart failure type I50.9 [place] [address] [place] [id number] [place] [address] 35025- 0923 Aug, [place] [address] [address]- 3449 13 Aug, 2017 Chronic congestive heart failure, unspecified congestive heart failure type I50.9 ; Chronic obstructive pulmonary disease, unspecified COPD type J44.9 and Bilateral impacted cerumen H61.23 [place] [address] [place] [address]- 0950 Jul, [facility] [address] [place] [address] 08950- 2117 Jul, [facility] [address] [place] [address] 06127- 2672 Jun, [facility] [address] [place] [id number] [place] [address] 41044- 4196 Jun, [facility] [address] [place] [id number] [place] [address] 06759- 5520 Jun, Coronary artery disease involving cahu[place] coronary artery of cahuilla heart without angina pectoris I25.10 [facility] [address] [place] [id number] [place] [address] 72710- 5926 Jun, [facility] [address] [place] [id number] [place] [address] 40919- 8831 May, Chronic obstructive pulmonary disease, unspecified COPD type J44.9 and History of pneumonia Z87.01 [facility] [address] [place] [id number] [place] [address] [id number] May, [facility] [address] [place] [id number] [place] [address] 29562- 3759 May, [facility] [address] [place] [address] 68219- 7721 May, [facility] [address] [place] [address] 14795- 6764 May, [facility] [address] [place] [address] 36982- 4545 Apr, [facility] [address] [place] [id number] [place] [address] 33020- 3434 Apr, Coronary artery disease involving cahuilla coronary artery of cahuilla heart without angina pectoris I25.10 and Ventricular arrhythmia I49.9 [facility] [address] [place] [address] 08474- 5201 Apr, [facility] [address] [place] [id number], [place] [address]- 8262 Apr, [facility] [address], [place] [address] -[address]4 Apr, Dysuria R30.0 and Acute cystitis without hematuria N30.00 [facility] [address], [place] [address]- 3157 Feb, Epistaxis R04.0 and Chronic obstructive pulmonary disease, unspecified COPD type J44.9 [facility] [address], [place] [address]- 5523 Jan, Fall from other pedestrian conveyance, initial encounter V00.891A [facility] [address], [place] [address]- 9087 Jan, Chronic congestive heart failure, unspecified congestive heart failure type I50.9 ; Chronic obstructive pulmonary disease, unspecified COPD type J44.9 and Stasis dermatitis of both legs I87.2 [facility] [address], [place] [address]- 5031 November, Chronic congestive heart failure, unspecified congestive heart failure type I50.9 [facility] [address], [place] [address]- 3024 November, Coronary artery disease involving cahu[place] coronary artery of cahuilla heart without angina pectoris I25.10 ; Chronic congestive heart failure, unspecified congestive heart failure type I50.9 and Chronic obstructive pulmonary disease, unspecified COPD type J44.9 [facility] [address] [place] [id number], [place] [address]- 5547 Oct, [facility] [address] [place] [id number] [place] [address] 00663- 2508 Oct, [facility] [address] [id number] [place] [address] [id number] Oct, [facility] [address] [place] [id number] [place] [address] [id number] Sep, Via [facility] [address] [place] [id number] Sep, Essential hypertension I10 and Chronic congestive heart failure, unspecified congestive heart failure type I50.9 [facility] [address] [id number] [id number] Sep, [facility] [address], [place] [address]- 8815 Sep, [facility] [address], [place] [address]- 2927 Jun, [facility] [address], [place] [address]- 2817 Jun, [facility] [address], [place] [address]- 4295 May, [facility] [address], [place] [address]- 5345 May, [facility] [address], [place] [address]- 1232 May, [facility] [address], [place] [address]- 5999 May, [facility] [address], [place] [address]- 4849 May, Chronic congestive heart failure, unspecified congestive heart failure type I50.9 [facility] [address], [place] [address] May, Pain of right lower extremity M79.604 ; History of atrial fibrillation without current medication Z86.79 and Acute deep vein thrombosis ( DVT) of femoral vein of right lower extremity I82.411 [facility] [address], [place] [address]- 3671 May, [facility] [address], [place] [address]- 5135 Feb, [facility] [address], [place] [address]- 7301 Feb, Coronary artery disease involving cahuilla coronary artery of cahuilla heart without angina pectoris I25.10 ; Chronic congestive heart failure, unspecified congestive heart failure type I50.9 ; Cardiac defibrillator in place Z95.810 and Candidiasis B37.9 IMMUNIZATIONS No Known Immunizations SOCIAL HISTORY Never Assessed REASON FOR VISIT F/U from retirement shari- Tory ROLLINS PLAN OF CARE Activity Details Follow Up 3 Months Reason: VITAL SIGNS Height 65 in 2017-02-09 Weight 212.6 lbs 2017-02-09 Temperature 97.5 degrees Fahrenheit 2017-02-09 Heart Rate 84 bpm 2017-02-09 Respiratory Rate 18 2017-02-09 BMI 35.37 kg/m2 2017-02-09 Blood pressure systolic 130 mmHg 2017-02-09 Blood pressure diastolic 80 mmHg 2017-02-09 MEDICATIONS Medication Instructions Dosage Frequency Start Date End Date Duration Status Nexium 40 MG Orally Once a day 1 capsule 24h Active Mexiletine HCl 150 MG Orally every 8 hrs 1 capsule 8h Active Klor-Con 8 MEQ Orally Once a day 1 tablet 24h Active Digoxin 125 MCG Orally Once a day 1 tablet 24h Active Amiodarone HCl 200 MG Orally Once a day 1 tablet 24h Active ProAir HFA 108 (90 Base) MCG/ACT Inhalation 4 times a day 2 puffs as needed 6h November, 30 days Active Metoprolol Tartrate 50 mg Orally Twice a day 1/2 tablet with food 12h Active Furosemide 40 MG Orally Once a day 1 tablet 24h Active Aspir-81 Active Amlodipine Besylate 5 MG Orally Once a day 1 tablet 24h Active RESULTS No Results PROCEDURES Procedure Date Ordered Result Body Site [facility] VISIT ESTABLISHED PATIENT February 09, 2017 INSTRUCTIONS MEDICATIONS ADMINISTERED No Known Medications [...] September Hospitalization History Bronchitis/clinical Pneumonia,hypoxia,sepsis - Via [facility] [place] 06/21/17
--- OUTSIDE RECORDS SUMMARY | 2018-01-04 11:56 | XMS REPORT ---
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 Active 35291646 Problem Ventricular arrhythmia I49.9 Active 64897707 Problem Essential hypertension I10 Active 65848360 Problem Coronary artery disease involving [place] coronary artery of [place] heart without angina pectoris I25.10 Active 4619682757559 Problem Stasis dermatitis of both legs I87.2 Active 64116767 Problem Chronic obstructive pulmonary disease, unspecified COPD type J44.9 Active 21246491 ALLERGIES No Information ENCOUNTERS Encounter Location Date Diagnosis [facility] WALK IN [facility] [address] [place] [address]66 -8902 November, Acute cystitis without hematuria N30.00 [facility] WALK IN [facility] [id number] [place] [address] November, Acute cystitis without hematuria N30.00 [facility] [id number] [place] [address] 00479- 7467 November, [facility] [address] [address] Oct, Encounter for immunization Z23 ; Medicare annual wellness visit, initial Z00.00 ; Chronic obstructive pulmonary disease, unspecified COPD type J44.9 ; Coronary artery disease involving [place] coronary artery of [place] heart without angina pectoris I25.10 ; Chronic congestive heart failure, unspecified congestive heart failure type I50.9 ; Essential hypertension I10 ; Ventricular arrhythmia I49.9 and Other atherosclerosis of [place] arteries of extremities, 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 [place] [id number] [place] [address] 30312- 0116 Sep, Chronic congestive heart failure, unspecified congestive heart failure type I50.9 [facility] [id number] [place] [address] 92271- 1222 Aug, [place] [address] [address]12- [address]876 Aug, Chronic congestive heart failure, unspecified congestive heart failure type I50.9 ; Chronic obstructive pulmonary disease, unspecified COPD type J44.9 and Bilateral impacted cerumen H61.23 [place] [id number] [place] [address] 29354- 7608 Jul, [place] [address] 76833- 0[address] Jul, [facility] [id number] [place] [address] 87701- 7240 Jun, [place] [id number] [place] [address] 32248- 1485 Jun, [facility] [id number] [place] [address] 37443- 2573 Jun, Coronary artery disease involving pilot [place] coronary artery of [place] heart without angina pectoris I25.10 [place] [id number] [place] [address] 81222- 0689 Jun, [facility] [id number] [place] [address] 38832- 4991 May, Chronic obstructive pulmonary disease, unspecified COPD type J44.9 and History of pneumonia Z87.01 [facility] [id number] [place] [address] [id number] May, [place] [address] 21286- 6038 May, [facility] [address] [address] 8[address] May, [facility] [id number] [place] [address] 86900- 7019 May, [facility] [id number] [place] [address] 86139- 0812 Apr, [facility] [id number] [place] [address] 93255- 5628 Apr, Coronary artery disease involving pilot [place] coronary artery of [place] heart without angina pectoris I25.10 and Ventricular arrhythmia I49.9 [facility] [id number] [place] [address] 51029- 3146 Apr, [facility] [id number] [place] [address] 05187- 4499 Apr, [facility] [id number] [place] [address] 17648 -8955 Apr, Dysuria R30.0 and Acute cystitis without hematuria N30.00 [facility] [id number] [place] [address] 16111- 7158 Feb, Epistaxis R04.0 and Chronic obstructive pulmonary disease, unspecified COPD type J44.9 [facility] [address] [place] [address] 97233- 7750 Jan, Fall from other pedestrian conveyance, initial encounter V00.891A [facility] [address] [address] Jan, Chronic congestive heart failure, unspecified congestive heart failure type I50.9 ; Chronic obstructive pulmonary disease, unspecified COPD type J44.9 and Stasis dermatitis of both legs I87.2 [facility] [address] [address] November, Chronic congestive heart failure, unspecified congestive heart failure type I50.9 [facility] [id number] [address] November, Coronary artery disease involving pilot [place] coronary artery of pilot [place] heart without angina pectoris I25.10 ; Chronic congestive heart failure, unspecified congestive heart failure type I50.9 and Chronic obstructive pulmonary disease, unspecified COPD type J44.9 [facility] [address] [facility] [id number] [address] Oct, [facility] [address] [facility] [id number] [address] Oct, [facility] [id number] [phone] Oct, [facility] [id number] [place] [address] [phone] Sep, Via [facility] [address] [facility] [place] [id number] Sep, Essential hypertension I10 and Chronic congestive heart failure, unspecified congestive heart failure type I50.9 [facility] [id number] [id number] Sep, [facility] [address], [place] [address] 9[address] Sep, [facility] [address], [place] [address] 1512 Jun, [facility] [id number] [address] 7[address] Jun, [facility] [id number] [address] 0687 May, [facility] [id number], [place] [address] May, [facility] [id number] [address] 8862 May, [facility] [id number] [address] 3880 May, [facility] [address] [facility] [id number], [place] [address]60 May, Chronic congestive heart failure, unspecified congestive heart failure type I50.9 [facility]ARE [address], [place] [address] May, Pain of right lower extremity M79.604 ; History of atrial fibrillation without current medication Z86.79 and Acute deep vein thrombosis ( DVT) of femoral vein of right lower extremity I82.411 [facility] [address], [place] [address] 40[address] May, [facility] [address] [place] [address] 18237- 7783 Feb, [facility] [address], [place] [address] 9[address] Feb, Coronary artery disease involving pilot [place] coronary artery of pilot [place] heart without angina pectoris I25.10 ; Chronic congestive heart failure, unspecified congestive heart failure type I50.9 ; Cardiac defibrillator in place Z95.810 and Candidiasis B37.9 IMMUNIZATIONS No Known Immunizations SOCIAL HISTORY Never Assessed REASON FOR VISIT Labs per compliance PLAN OF CARE VITAL SIGNS MEDICATIONS Unknown Medications RESULTS No Results PROCEDURES No Known procedures INSTRUCTIONS MEDICATIONS ADMINISTERED No Known Medications MEDICAL (GENERAL) HISTORY Type Description Date Medical History hypertension Medical History skin cancer-arms, face Medical History [place] Medical History Pneumonia Surgical History heart cath-2 stents, multiple balloons Surgical History open heart surgery 1987 Surgical History defibrillator placed 2013 Hospitalization History surgery Hospitalization History pneumonia 2014 Hospitalization History broken left hip at September Hospitalization History Bronchitis/clinical Pneumonia,hypoxia,sepsis - Via [facility] 06/21/17
--- OUTSIDE RECORDS SUMMARY | 2018-01-04 11:56 | XMS REPORT ---
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 Active 12191657 Problem Ventricular arrhythmia I49.9 Active 71424392 Problem Essential hypertension I10 Active 45005911 Problem Coronary artery disease involving [place] coronary artery of [place] heart without angina pectoris I25.10 Active 8628118791240 Problem Stasis dermatitis of both legs I87.2 Active 84164567 Problem Chronic obstructive pulmonary disease, unspecified COPD type J44.9 Active 45842081 ALLERGIES Substance Reaction Event Type Date Status Penicillin V Potassium Unknown Drug Allergy Apr, Active Codeine Phosphate Unknown Drug Allergy Apr, Active ENCOUNTERS Encounter Location Date Diagnosis [facility] [address] [place] [address] 99310- 0632 Oct, Medicare annual wellness visit, initial Z00.00 ; Encounter for immunization Z23 ; Chronic obstructive pulmonary disease, unspecified COPD type J44.9 ; Coronary artery disease involving [place] coronary artery of [place] heart without angina pectoris I25.10 ; Chronic congestive heart failure, unspecified congestive heart failure type I50.9 ; Essential hypertension I10 ; Ventricular arrhythmia I49.9 and Other atherosclerosis of [place] arteries of extremities, 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 [facility] [id number] [place] [address] 45532- 8845 Sep, Chronic congestive heart failure, unspecified congestive heart failure type I50.9 [facility] [address] [place] [address] 50809- 3908 Aug, [facility] [address] [place] [address] 74269- 0247 Aug, Chronic congestive heart failure, unspecified congestive heart failure type I50.9 ; Chronic obstructive pulmonary disease, unspecified COPD type J44.9 and Bilateral impacted cerumen H61.23 [facility] [id number] [place] [address] 02711- 9400 Jul, [facility] [id number] [place] [address] 01300- 7788 Jul, [facility] [id number] [place] [address] 31040- 9914 Jun, [facility] [id number] [place] [address] 88969- 1130 Jun, [facility] [id number] [place] [address] 98427- 1987 Jun, Coronary artery disease involving [place] coronary artery of [place] heart without angina pectoris I25.10 [facility] [id number] [place] [address] 78378- 9377 Jun, [facility] [id number] [place] [address] 45178- 7076 May, Chronic obstructive pulmonary disease, unspecified COPD type J44.9 and History of pneumonia Z87.01 [facility] [id number] [place] [address] [id number] May, [facility] [address] [place] [address] 94515- 9263 May, [facility] [id number] [place] [address] 28967- 6079 May, [facility] [id number] [place] [address] 21145- 0700 May, [facility] [id number] [place] [address] 08424- 3612 Apr, [place] [address] [place] [address] 33650- 5232 Apr, Coronary artery disease involving [place] coronary artery of [place] heart without angina pectoris I25.10 and Ventricular arrhythmia I49.9 [place] [address] [place] [address] 07831- 0701 Apr, [place] [id number] [place] [address] 25699- 5968 Apr, [facility] WALK IN [facility] [id number] [place] [address] 71882 -4202 Apr, Dysuria R30.0 and Acute cystitis without hematuria N30.00 [place] [id number] [place] [address] 83851- 5282 Feb, Epistaxis R04.0 and Chronic obstructive pulmonary disease, unspecified COPD type J44.9 [place] [id number] [place] [address] 25139- 4366 Jan, Fall from other pedestrian conveyance, initial encounter V00.891A [place] [id number] [place] [address] 04788- 0901 Jan, Chronic congestive heart failure, unspecified congestive heart failure type I50.9 ; Chronic obstructive pulmonary disease, unspecified COPD type J44.9 and Stasis dermatitis of both legs I87.2 [place] [id number] [place] [address] 28933- 6766 November, Chronic congestive heart failure, unspecified congestive heart failure type I50.9 [place] [id number] [place] [address] 08042- 9383 November, Coronary artery disease involving [place] coronary artery of [place] heart without angina pectoris I25.10 ; Chronic congestive heart failure, unspecified congestive heart failure type I50.9 and Chronic obstructive pulmonary disease, unspecified COPD type J44.9 [place] [id number] [place] [address] 45615- 0789 Oct, [facility] [address] [id number] [address]- 7675 Oct, [facility] [address] [id number] [place] [id number] Oct, [facility] [address] [id number] [place] [id number] Sep, Via [facility] [address] [place] [id number] Sep, Essential hypertension I10 and Chronic congestive heart failure, unspecified congestive heart failure type I50.9 [facility] [address] [id number] [place] [id number] Sep, [facility] [address] [facility] [id number] [place] [address]- 2951 Sep, [facility] [address] [facility] [id number] [place] [address]- 2614 Jun, [facility] [address] [facility] [id number] [place] [address]- 8287 Jun, [facility] [address] [facility] [id number] [place] [address]- 2315 May, [facility] [address] [facility] [id number] [place] [address]- 9040 May, [facility] [address] [facility] [id number] [place] [address]- 3443 May, [facility] [address] [id number] [place] [address]- 0690 May, [facility] [address] [facility] [id number] [place] [address]- 0754 May, Chronic congestive heart failure, unspecified congestive heart failure type I50.9 [facility] [address] [id number] [place] [address] May, Pain of right lower extremity M79.604 ; History of atrial fibrillation without current medication Z86.79 and Acute deep vein thrombosis ( DVT) of femoral vein of right lower extremity I82.411 [facility] [address] [facility] [id number] [place] [address]- 8286 May, [facility] [address] [facility] [id number] [place] [address]- 3349 Feb, [facility] [address] [facility] [id number] [place] [address]- 3609 Feb, Coronary artery disease involving [place] coronary artery of [place] heart without angina pectoris I25.10 ; Chronic congestive heart failure, unspecified congestive heart failure type I50.9 ; Cardiac defibrillator in place Z95.810 and Candidiasis B37.9 IMMUNIZATIONS No Known Immunizations SOCIAL HISTORY Never Assessed REASON FOR VISIT burning with urination started this AM Daniel PLAN OF CARE VITAL SIGNS Height 65 in 2017-05-02 Weight 199.2 lbs 2017-05-02 Temperature 98.5 degrees Fahrenheit 2017-05-02 Heart Rate 80 bpm 2017-05-02 Respiratory Rate 20 2017-05-02 BMI 33.14 kg/m2 2017-05-02 Blood pressure systolic 140 mmHg 2017-05-02 Blood pressure diastolic 88 mmHg 2017-05-02 MEDICATIONS Medication Instructions Dosage Frequency Start Date End Date Duration Status ProAir HFA 108 (90 Base) MCG/ACT Inhalation 4 times a day 2 puffs as needed 6h November, 30 days Active Amlodipine Besylate 5 MG Orally Once a day 1 tablet 24h Active Digoxin 125 MCG Orally Once a day 1 tablet 24h Active Amiodarone HCl 200 MG Orally Once a day 1 tablet 24h Active Nitrofurantoin Monohyd Macro 100 mg Orally every 12 hrs 1 capsule with food 12h Feb, Active Metoprolol Tartrate 50 mg Orally Twice a day 1/2 tablet with food 12h Active Nexium 40 MG Orally Once a day 1 capsule 24h Active Mexiletine HCl 150 MG Orally every 8 hrs 1 capsule 8h Active Klor-Con 8 MEQ Orally Once a day 1 tablet 24h Active Aspir-81 Active Bactrim DS 800-160 MG Orally 2 times a day 1 tablet 12h Apr, Apr, 10 day(s) Active Furosemide 40 MG Orally Once a day 1 tablet 24h Active Benzonatate 200 mg Orally 2 times a day 1 capsule as needed 12h Active RESULTS Name Result Date Reference Range UA LONG DIP (IN HOUSE) 2017-05-02 Lot # [id number] Exp date 2018-03-29 Clarity clear Color yellow Odor yes GLU negative OREN negative KET negative SG 1.015 BLO 1+ pH 6.5 Protein negative URO 0.2 NIT negative ELEANOR 1+ Lot # [id number] Exp date PRIL 2018 CULTURE, URINE 2017-05-02 Urine Culture, Routine Final report Result 1 Proteus mirabilis Antimicrobial Susceptibility PROCEDURES Procedure Date Ordered Result Body Site URINALYSIS, AUTO, W/O SCOPE May 02, 2017 LAB NOT BILLED BY [place] May 02, 2017 [facility] VISIT ESTABLISHED PATIENT May 02, 2017 INSTRUCTIONS MEDICATIONS ADMINISTERED No Known Medications MEDICAL (GENERAL) HISTORY Type Description Date Medical History hypertension Medical History skin cancer-arms, face Medical History MD Medical History Pneumonia Surgical History heart cath-2 stents, multiple balloons Surgical History open heart surgery 1987 Surgical History defibrillator placed 2013 Hospitalization History surgery Hospitalization History pneumonia 2014 Hospitalization History broken left hip at September Hospitalization History Bronchitis/clinical Pneumonia,hypoxia,sepsis - [facility] 06/21/17
--- OUTSIDE RECORDS SUMMARY | 2018-01-04 11:56 | XMS REPORT ---
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 Active 93793205 Problem Ventricular arrhythmia I49.9 Active 10286460 Problem Essential hypertension I10 Active 65457439 Problem Coronary artery disease involving [place] coronary artery of n[place] heart without angina pectoris I25.10 Active 5672991836462 Problem Stasis dermatitis of both legs I87.2 Active 42719168 Problem Chronic obstructive pulmonary disease, unspecified COPD type J44.9 Active 41427504 ALLERGIES No Information ENCOUNTERS Encounter Location Date Diagnosis [facility] [id number] [place] [phone] November, Acute cystitis without hematuria N30.00 [facility] [id number] [place] [address] November, [facility] [id number] [place] [address] Oct, Medicare annual wellness visit, initial Z00.00 ; Encounter for immunization Z23 ; Chronic obstructive pulmonary disease, unspecified COPD type J44.9 ; Coronary artery disease involving nuiqsut coronary artery of nuiqs[place] heart without angina pectoris I25.10 ; Chronic congestive heart failure, unspecified congestive heart failure type I50.9 ; Essential hypertension I10 ; Ventricular arrhythmia I49.9 and Other atherosclerosis of n[place]qs[place] arteries of extremities, 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 [facility] [id number] [place] [address] 98[address] Sep, Chronic congestive heart failure, unspecified congestive heart failure type I50.9 [facility] [address] [address] Aug, [facility] [address] [address] Aug, 2017 Chronic congestive heart failure, unspecified congestive heart failure type I50.9 ; Chronic obstructive pulmonary disease, unspecified COPD type J44.9 and Bilateral impacted cerumen H61.23 [facility] [id number] [address] Jul, [facility] [id number] [place] [address] Jul, [facility] [id number] [place] [address] Jun, [facility] [address] [place] [address]572- 7[address] Jun, [facility] [address] [place] [address]2762- [address] Jun, Coronary artery disease involving nuiqsut coronary artery of nuiqs[place] heart without angina pectoris I25.10 [facility] [address] [address] Jun, [facility] [address] [address] May, Chronic obstructive pulmonary disease, unspecified COPD type J44.9 and History of pneumonia Z87.01 [facility] [id number] [id number] May, [facility] [address] [address] May, [facility] [address], [place] [address] May, [facility] [address] [address] May, [facility] [address] [place] [address] 91527- 9920 Apr, [facility] [id number] [place] [address] 71842- 7[address] Apr, Coronary artery disease involving nuiqsut coronary artery of nuiqs[place] heart without angina pectoris I25.10 and Ventricular arrhythmia I49.9 [facility] [id number] [place] [address]809[address] 8[address] Apr, [facility] [id number] [place] [address]239[address] Apr, [facility] [id number] [place] [address]46 [address] Apr, Dysuria R30.0 and Acute cystitis without hematuria N30.00 [facility] [id number] [place] [address]- 4[address] Feb, Epistaxis R04.0 and Chronic obstructive pulmonary disease, unspecified COPD type J44.9 [facility] [id number] [place] [address] 48353- 1587 Jan, Fall from other pedestrian conveyance, initial encounter V00.891A [place] [facility] [address] [place] [address] 24796[address] 8415 Jan, Chronic congestive heart failure, unspecified congestive heart failure type I50.9 ; Chronic obstructive pulmonary disease, unspecified COPD type J44.9 and Stasis dermatitis of both legs I87.2 [place] [facility] [address], [place] [address] November, Chronic congestive heart failure, unspecified congestive heart failure type I50.9 [facility] [address], [place] [address] November, Coronary artery disease involving nuiqsut coronary artery of nuiqsut heart without angina pectoris I25.10 ; Chronic congestive heart failure, unspecified congestive heart failure type I50.9 and Chronic obstructive pulmonary disease, unspecified COPD type J44.9 [facility] [address] [facility] [id number], [place] [address] Oct, [facility] [address] [facility] [id number], [place] [address] Oct, [facility] [id number] [id number] Oct, [facility] [id number] [id number] Sep, [facility] [address] [place] [id number] Sep, Essential hypertension I10 and Chronic congestive heart failure, unspecified congestive heart failure type I50.9 [facility] [id number] [id number] Sep, [facility] [address], [place] [address] Sep, [facility] [address], [place] [address] Jun, [facility] [address], [place] [address] Jun, [facility] [address], [place] [address] May, [facility] [address], [place] [address] May, [facility] [address] [facility] [id number], [place] [address] May, [facility] [address], [place] [address] May, [facility] [address] [facility] [id number], [place] [address] May, Chronic congestive heart failure, unspecified congestive heart failure type I50.9 [facility] [address] [facility] [id number] [place] [address] May, Pain of right lower extremity M79.604 ; History of atrial fibrillation without current medication Z86.79 and Acute deep vein thrombosis ( DVT) of femoral vein of right lower extremity I82.411 [facility] [address] [facility] [id number], [place] [address] May, [facility] [address] [facility] [id number] [address] Feb, [facility] [address] [facility] [id number] [address] Feb, Coronary artery disease involving nuiqsut coronary artery of nuiqsut heart without angina pectoris I25.10 ; Chronic congestive heart failure, unspecified congestive heart failure type I50.9 ; Cardiac defibrillator in place Z95.810 and Candidiasis B37.9 IMMUNIZATIONS No Known Immunizations SOCIAL HISTORY Never Assessed REASON FOR VISIT Refused evaluation for Power chair PLAN OF CARE VITAL SIGNS MEDICATIONS No Known Medications RESULTS No Results PROCEDURES No Known procedures INSTRUCTIONS MEDICATIONS ADMINISTERED No Known Medications MEDICAL (GENERAL) HISTORY Type Description Date Medical History hypertension Medical History skin cancer-arms, face Medical History [place] Medical History Pneumonia Surgical History heart cath-2 stents, multiple balloons Surgical History open heart surgery 1987 Surgical History defibrillator placed 2013 Hospitalization History surgery Hospitalization History pneumonia 2014 Hospitalization History broken left hip at September Hospitalization History Bronchitis/clinical Pneumonia,hypoxia,sepsis - [facility] 06/21/17
[2018-01-04 12:15] LABS: BASOPHILS % (AUTO) 0 % (0-10); EOSINOPHILS # (AUTO) 0.1 10^3/uL (0.0-0.3); EOSINOPHILS % (AUTO) 1 % (0-10); HEMATOCRIT 40 % (40-54); HEMOGLOBIN 13.6 G/DL (13.3-17.7); LYMPHOCYTES # (AUTO) 2.1 X 10^3 (1.0-4.0); LYMPHOCYTES % (AUTO) 17 % (12-44); MEAN CORPUSCULAR HEMOGLOBIN 32 PG (25-34); MEAN CORPUSCULAR HGB CONC 34 G/DL (32-36); MEAN CORPUSCULAR VOLUME 94 FL (80-99); MEAN PLATELET VOLUME 9.9 FL (7.4-10.4); MONOCYTES # (AUTO) 1.5 X 10^3 (0.0-1.0); MONOCYTES % (AUTO) 13 % (0-12); NEUTROPHILS # (AUTO) 8.2 X 10^3 (1.8-7.8); NEUTROPHILS % (AUTO) 69 % (42-75); PLATELET COUNT 206 10^3/uL (130-400); RED BLOOD COUNT 4.27 10^6/uL (4.35-5.85); RED CELL DISTRIBUTION WIDTH 16.8 % (10.0-14.5); WHITE BLOOD COUNT 11.9 10^3/uL (4.3-11.0)
--- NOTE | 2018-01-04 12:20 | ED Cardiac General ---
History of Present Illness General Stated Complaint: HORTENCIA SHOCKED HIM ABOUT 5 MINUTES AGO Source: patient, family Exam Limitations: no limitations History of Present Illness Date Seen by Provider: Jan 04, 2018 Time Seen by Provider: 12:16 Initial Comments to ER with concerns of difficulty or discharge. Patient fell last night while sitting in his recliner and abraded his left shoulder. He said left shoulder pain since. Today while he was sitting down he reached behind him and the states that he screamed in pain, and his eyes rolled back into his head. She believes this represents a defibrillator discharge. The patient states he feels fine, denies that he ever screamed or had any pain. States he feels fine. He has a [employer] AICD placed by Dr Wylie at [facility] in [place]. Timing/Duration: 1-3 hours Severity: mild Prior CP/Workup: other (CABG, AICD placement) Associated Systoms: Denies Symptoms; No Chest Pain, No Cough Allergies and Home Medications Allergies Coded Allergies: Penicillins (Verified Allergy, Severe, HIVES, SOB, 01/04/18) codeine (Verified Allergy, Severe, SOB, HIVES, 01/04/18) Home Medications Albuterol Sulfate 18 Gm Hfa.aer.ad, 2 PUFF IH QID PRN for SHORTNESS OF BREATH, ( Reported) Amiodarone HCl 200 Mg Tablet, 200 MG PO SuSa@0600,1999, (Reported) Amlodipine Besylate 5 Mg Tablet, 5 MG PO HS, (Reported) LAST FILLED 02/01/17 #90 Azithromycin 250 Mg Tablet, 250 MG PO HS Prescribed by: EDIS SHEARER on 06/23/17 1028 Cefpodoxime Proxetil 200 Mg Tablet, 200 MG PO BID Prescribed by: EDIS SHEARER on 06/23/17 1028 Digoxin 125 Mcg Tablet, 125 MCG PO DAILY, (Reported) Esomeprazole Magnesium 40 Mg Capsule.dr, 40 MG PO DAILY, (Reported) Furosemide 40 Mg Tablet, 40 MG PO 0900,1500, (Reported) Metoprolol Tartrate 50 Mg Tablet, 25 MG PO BID, (Reported) TAKES 1/2 OF A (50 MG) TABLET Mexiletine HCl 150 Mg Cap, 150 MG PO TID, (Reported) Potassium Chloride 8 Meq Tablet.er, 8 MEQ PO DAILY, (Reported) LAST FILLED 02/01/17 #90 Patient Home Medication List Home Medication List Reviewed: Yes Review of Systems Constitutional: see HPI EENTM: No Symptoms Reported Respiratory: No Symptoms Reported Cardiovascular: See HPI; Denies Chest Pain, Denies Edema, Denies Irregular Heart Rate, Denies Lightheadedness, Denies Palpitations, Denies Syncope Gastrointestinal: No Symptoms Reported Genitourinary: No Symptoms Reported Musculoskeletal: no symptoms reported Skin: no symptoms reported Psychiatric/Neurological: No Symptoms Reported Endocrine: No Symptoms Reported Hematologic/Lymphatic: No Symptoms Reported Past Igtbmco-Mfsiok-Gjxava Hx Patient Social History Type Used: Cigarettes Former Smoker, Quit: Jul 30, 1992 2nd Hand Smoke Exposure: No Recent Foreign Travel: No Contact w/Someone Who Travel: No Recent Hopitalizations: No Immunizations Up To Date Tetanus Booster (TDap): More than 5yrs Date of Pneumonia Vaccine: Apr 29, 2014 Date of Influenza Vaccine: Jun 08, 2017 Seasonal Allergies Seasonal Allergies: No Past Medical History Surgeries: Yes Cardiac, CABG, Coronary Stent, Defibrillator, Eye Surgery, Joint Replacement, Orthopedic, Renal Respiratory: Yes (O2 3L/NC AT HS) Asthma, Pneumonia, Chronic Bronchitis, Sleep Apnea, COPD Currently Using CPAP: No Currently Using BIPAP: No Cardiac: Yes (CABG, DEFIBRILLATOR, CARDIAC CATHS-STENTS X2; CHF) Coronary Artery Disease, Heart Attack, High Cholesterol, Hypertension Neurological: Yes Dementia, Neuropathy Reproductive Disorders: Yes (unable to have children- mumps as a child) Sexually Transmitted Disease: No HIV/AIDS: No Genitourinary: Yes Bladder Infection, Kidney Stones Gastrointestinal: Yes Gastroesophageal Reflux, Ulcer Musculoskeletal: Yes (POOR MOBILITY) Arthritis, Fractures Endocrine: No HEENT: Yes Cataract, Glaucoma Loss of Vision: Bilateral Hearing Impairment: Hard of Hearing Cancer: Yes Skin What Type of Treatment Did You: Surgical Intervention Psychosocial: Yes Depression Integumentary: Yes (shingles , SKIN CANCER) Blood Disorders: No Adverse Reaction/Blood Tranf: No Family Medical History Cardiovascular disease 19 MOTHER G8 BROTHER G8 SISTER Cervical cancer 19 MOTHER No Pertinent Family Hx Physical Exam Vital Signs Vital Signs - First Documented Capillary Refill : General Appearance: No Apparent Distress, WD/WN, Chronically ill HEENT: PERRL/EOMI, TMs Normal Neck: Full Range of Motion, Normal Inspection Respiratory: Chest Non Tender, Lungs Clear, Normal Breath Sounds, No Accessory Muscle Use, No Respiratory Distress Cardiovascular: Regular Rate, Rhythm, Normal Peripheral Pulses Gastrointestinal: Normal Bowel Sounds, Non Tender, Soft Extremity: Normal Capillary Refill, Normal Inspection, Other (abrasion to lateral aspect left shoudler. ) Neurologic/Psychiatric: Alert, Oriented x3 Skin: Normal Color, Warm/Dry Progress/Results/Core Measures Results/Orders Lab Results Laboratory Tests Test 01/04/18 12:05 01/04/18 12:09 Range/Units White Blood Count 11.9 H 4.3-11.0 10^3/uL Red Blood Count 4.27 L 4.35-5.85 10^6/uL Hemoglobin 13.6 13.3-17.7 G/DL Hematocrit 40 40-54 % Mean Corpuscular Volume 94 80-99 FL Mean Corpuscular Hemoglobin 32 25-34 PG Mean Corpuscular Hemoglobin Concent 34 32-36 G/DL Red Cell Distribution Width 16.8 H 10.0-14.5 % Platelet Count 206 130-400 10^3/uL Mean Platelet Volume 9.9 7.4-10.4 FL Neutrophils (%) (Auto) 69 42-75 % Lymphocytes (%) (Auto) 17 12-44 % Monocytes (%) (Auto) 13 H 0-12 % Eosinophils (%) (Auto) 1 0-10 % Basophils (%) (Auto) 0 0-10 % Neutrophils # (Auto) 8.2 H 1.8-7.8 X 10^3 Lymphocytes # (Auto) 2.1 1.0-4.0 X 10^3 Monocytes # (Auto) 1.5 H 0.0-1.0 X 10^3 Eosinophils # (Auto) 0.1 0.0-0.3 10^3/uL Basophils # (Auto) 0.0 0.0-0.1 10^3/uL Prothrombin Time 13.7 12.2-14.7 SEC INR Comment 1.1 0.8-1.4 Activated Partial Thromboplast Time 28 24-35 SEC Sodium Level 140 135-145 MMOL/L Potassium Level 3.6 3.6-5.0 MMOL/L Chloride Level 101 98-107 MMOL/L Carbon Dioxide Level 27 21-32 MMOL/L Anion Gap 12 5-14 MMOL/L Blood Urea Nitrogen 14 7-18 MG/DL Creatinine 0.84 0.60-1.30 MG/DL Estimat Glomerular Filtration Rate > 60 BUN/Creatinine Ratio 17 Glucose Level 150 H 70-105 MG/DL Calcium Level 9.9 8.5-10.1 MG/DL Magnesium Level 1.7 L 1.8-2.4 MG/DL Total Bilirubin 0.5 0.1-1.0 MG/DL Aspartate Amino Transf (AST/SGOT) 22 5-34 U/L Alanine Aminotransferase (ALT/SGPT) 19 0-55 U/L Alkaline Phosphatase 86 40-136 U/L Myoglobin 68.0 10.0-92.0 NG/ML Troponin I < 0.30 <0.30 NG/ML Total Protein 7.9 6.4-8.2 GM/DL Albumin 3.8 3.2-4.5 GM/DL Thyroid Stimulating Hormone (TSH) 2.75 0.35-4.94 UIU/ML My Orders Orders - KARLA CHAN APRN Shoulder, Left, 3 Views (01/04/18 12:15) Amiodarone Tablet (Cordarone Tablet) (01/04/18 15:15) Vital Signs/I&O 01/04/18 01/04/18 11:46 11:46 Temp 98.0 Pulse 83 Resp 14 B/P (MAP) 179/89 (119) Pulse Ox 97 93 O2 Delivery Nasal Cannula Nasal Cannula O2 Flow Rate 3.00 3.00 Departure Communication (Admissions) Time/Spoke to Admitting Phy: 15:[address] Rockwell. We will admit. Time/Spoke to Consulting Phy: 15:[address] Calvert on-call for cardiology. He recommends admission to the hospital observation, 400 mg of amiodarone now then 400 mg daily. Currently the patient is on 200 mg daily. Impression Primary Impression: Defibrillator discharge Additional Impression: Cardiomyopathy Disposition: ADMITTED INPATIENT Condition: Stable Admissions Decision to Admit Reason: Admit from ER (General) Decision to Admit/Date: Jan 04, 2018 Time/Decision to Admit Time: 15:12 Departure-Patient Inst. Referrals: ABHINAV GONZALEZ MD (PCP/Family) Primary Care Physician KARLA CHAN APRN Jan 04, 2018 12:20
[2018-01-04 12:31] LABS: INR 1.1 (0.8-1.4); PROTHROMBIN TIME PATIENT 13.7 SEC (12.2-14.7)
[2018-01-04 12:35] LABS: ALANINE AMINOTRANSFERASE 19 U/L (0-55); ALBUMIN 3.8 GM/DL (3.2-4.5); ALKALINE PHOSPHATASE 86 U/L (40-136); BILIRUBIN,TOTAL 0.5 MG/DL (0.1-1.0); BUN/CREATININE RATIO 17; CALCIUM 9.9 MG/DL (8.5-10.1); CARBON DIOXIDE 27 MMOL/L (21-32); CHLORIDE 101 MMOL/L (98-107); CREATININE SERUM 0.84 MG/DL (0.60-1.30); GFR ESTIMATED > 60; GLUCOSE 150 MG/DL (70-105); MAGNESIUM 1.7 MG/DL (1.8-2.4); POTASSIUM 3.6 MMOL/L (3.6-5.0); SODIUM 140 MMOL/L (135-145); TOTAL PROTEIN 7.9 GM/DL (6.4-8.2)
--- NOTE | 2018-01-04 13:24 | Diagnostic Imaging Report ---
INDICATION: Shortness of air. COMPARISON: 06/22/2017 FINDINGS: Single frontal radiographic view of the chest was obtained and demonstrates mild cardiomegaly. There is also mild prominence of pulmonary vasculature. Lungs show persistent elevation right hemidiaphragm, but otherwise clear. There is no focal consolidation, large effusion, and no pneumothorax. Left-sided AICD and sternotomy wires are noted. Bony structures show no gross acute abnormalities. IMPRESSION: 1. Moderate cardiomegaly and perhaps mild pulmonary vascular congestion. Dictated by: Dictated on workstation # [id number]
--- NOTE | 2018-01-04 14:15 | Diagnostic Imaging Report ---
Indication: Left shoulder pain. AP, oblique, and transcatheter views of the left shoulder obtained. No fracture or acute bony abnormality seen. There is no dislocation. AC joint appears unremarkable. Impression: No acute abnormality of the left shoulder. There is some underlying degenerative change of the AC joint. Dictated by: Dictated on workstation # [id number]
--- NOTE | 2018-01-04 14:21 | Consultation-Cardiology ---
HPI-Cardiology Cardiology Consultation: Date of Consultation 01/04/18 Time Seen by Provider: 14:30 Date of Admission Attending Physician Admitting Physician Elliot Ybarra MD Consulting Physician Felipe Calvert MD HPI: Chief Complaint: AICD Discharge Mr. Durham is a 77 year old male who was brought in by his spouse d/t concerns that his defibrillator shocked him. He was seen in the ED. He is a poor historian. His spouse is at the bedside. She reports last night he was transferring himself from his w/c to a chair when he fell. They contacted EMS to assist him up. He scraped his left shoulder. This morning he was moving himself back in his chair by pushing back using his arms. His spouse states he yelled out in pain and his eyes rolled back. She reports he was unresponsive for a few seconds. He denies this and states he never lost consciousness. Nevertheless, she summoned EMS to bring him to the ED to be evaluated. He does have a bedside home montior for he AICD. His spouse reports the lights on the home monitor will change from green to red if he has been shocked. She reports the light never changed from green. His primary laborer wharf is Dr. Wylie at [facility] in [place], [place]. He reports he saw him in October. He denies any CP, palpitations. He has chronic mild to mod dyspnea with chronic cough. Review of Systems-Cardiology Review of Systems Constitutional: No chills, No fever Eyes: No vision change Ears/Nose/Throat: No epistaxis, No recent hearing loss Respiratory: As described under HPI Cardiovascular: As described under HPI Gastrointestinal: No diarrhea, No nausea, No vomiting Genitourinary: No dysuria, No hematuria Skin: No other (dry, flaky, yellow skin to chest) Psychiatric/Neurological: As described under HPI Hematologic: No bleeding abnormalities ZLY-Noyatv-Zqrtdk Hx Patient Social History Alcohol Use: Denies Use Recreational Drug Use: No Former smoker/When Quit: Aug 02, 1987 Type Used: Cigarettes 2nd Hand Smoke Exposure: No Recent Foreign Travel: No Recent Infectious Disease Expo: No Immunizations Up To Date Tetanus Booster (TDap): More than 5yrs Date of Pneumonia Vaccine: Apr 29, 2014 Date of Influenza Vaccine: Jun 08, 2017 Past Medical History PMH As described under Assessment. Family Medical History Family History: Cardiovascular disease 19 MOTHER G8 BROTHER G8 SISTER Cervical cancer 19 MOTHER Allergies and Home Medications Allergies Coded Allergies: Penicillins (Verified Allergy, Severe, HIVES, SOB, 01/04/18) codeine (Verified Allergy, Severe, SOB, HIVES, 01/04/18) Home Medications Albuterol Sulfate 18 Gm Hfa.aer.ad, 2 PUFF IH QID PRN for SHORTNESS OF BREATH, ( Reported) Amiodarone HCl 200 Mg Tablet, 400 MG PO DAILY Prescribed by: THOMAS NASH on 01/05/18 1318 Amlodipine Besylate 5 Mg Tablet, 5 MG PO HS, (Reported) LAST FILLED 02/01/17 #90 Digoxin 125 Mcg Tablet, 125 MCG PO DAILY, (Reported) Esomeprazole Magnesium 40 Mg Capsule.dr, 40 MG PO DAILY, (Reported) Furosemide 40 Mg Tablet, 40 MG PO 0900,1500, (Reported) Metoprolol Tartrate 50 Mg Tablet, 25 MG PO BID, (Reported) TAKES 1/2 OF A (50 MG) TABLET Mexiletine HCl 150 Mg Cap, 150 MG PO TID, (Reported) Potassium Chloride 8 Meq Tablet.er, 8 MEQ PO BID Prescribed by: THOMAS NASH on 01/05/18 1318 Patient Home Medication List Home Medication List Reviewed: Yes Physical Exam-Cardiology Physical Exam Vital Signs/I&O Capillary Refill : Less Than 3 Seconds Constitutional: AAO x 3, well-developed, well-nourished HEENT: PERRL, hard of hearing; No oral hygience is good Neck: No carotid bruit; carotid pulses are 2 + bilaterally Respiratory: No accessory muscle use, No respiratory distress; chest expansion is symmetric, chest is bilaterally symmetric, wheezing (exp wheezes; prolonged expiratory phase; lose non-productive cough) Cardiovascular: regular rate-rhythm; No JVD; S1 and S2, systolic murmur Gastrointestinal: soft, audible bowel sounds Rectal: deferred Extremities: no lower extremity edema bilateral Neurologic/Psychiatric: grossly intact Skin: No rash, No ulcerations Data Review Labs Radiology NAME: SRI DURHAM Audiam REC#: [id number] PT STATUS: REG ER : 1940 PHYSICIAN: KMIBERLY GORMAN MD ADMIT DATE: 01/04/18/ER Draft Date of Exam:01/04/18 CHEST 1 VIEW, AP/PA ONLY INDICATION: Shortness of air. COMPARISON: 06/22/2017 FINDINGS: Single frontal radiographic view of the chest was obtained and demonstrates mild cardiomegaly. There is also mild prominence of pulmonary vasculature. Lungs show persistent elevation right hemidiaphragm, but otherwise clear. There is no focal consolidation, large effusion, and no pneumothorax. Left-sided AICD and sternotomy wires are noted. Bony structures show no gross acute abnormalities. IMPRESSION: 1. Moderate cardiomegaly and perhaps mild pulmonary vascular congestion. Dictated on workstation # [id number] Dict: 01/04/18 1317 Trans: 01/04/18 1324 [id number] Interpreted by: MONISHA CALDERA MD Electronically signed by: A/P-Cardiology Assessment/Admission Diagnosis Possible AICD discharge - interrogation pending CAD - CABG in 1987 in [place], [place] - exact details unkown. According to stent cards which he has with him: December 2001 Multi-link 2.5 x 18mm stent to the prox RCA. 2006 Cypher 3.5 x 30mm stent to the prox to mid circ H/O ICM - [facility] AICD implanted by Dr. Wylie in [place], [place] MPI 2013 showed LVEF 54% H/O PAF - has been maintained on Amiodarone Per spouse considered intolerant to OAC d/t bleeding ARRON with cardioversion [place] [address] Fonseca ARRON of [address] Fonseca showed LVEF 50%. Aortic valve calcification without stenosis. Mod to severe MR. Nocturnal hypoxemia requiring supplemental oxygen COPD General debility, w/c dependant MADELEINE CLAYTON Jan 04, 2018 14:21
[2018-01-04] MEDS ORDERED: AMIODARONE 200 MG (CORDARONE) TAB PO SCH (15:15)
[2018-01-04 17:00] VITALS: BP 148/77
[2018-01-04] MEDS ORDERED: CATHETER FLUSH 10 ML SYR IV PRN (17:15)
[2018-01-04] MEDS: AMIODARONE 200 MG (CORDARONE) TAB PO SCH (17:35)
--- NOTE | 2018-01-04 18:41 | Consultation-Cardiology ---
HPI-Cardiology Cardiology Consultation: Date of Consultation 01/04/18 Time Seen by Provider: 18:20 Date of Admission Attending Physician Maria C Rockwell MD Admitting Physician Elliot Ybarra MD Consulting Physician MIRNA URRUTIA MD, MA, FACP, FACC, FSCAI, CCDS HPI: Chief Complaint: AICD Discharge Mr. Durham is a 77 year old male who was brought in by his spouse d/t concerns that his defibrillator shocked him. He was seen in the ED. He is a poor historian. His spouse is at the bedside. She reports last night he was transferring himself from his w/c to a chair when he fell. They contacted EMS to assist him up. He scraped his left shoulder. This morning he was moving himself back in his chair by pushing back using his arms. His spouse states he yelled out in pain and his eyes rolled back. She reports he was unresponsive for a few seconds. He denies this and states he never lost consciousness. Nevertheless, she summoned EMS to bring him to the ED to be evaluated. He does have a bedside home montior for he AICD. His spouse reports the lights on the home monitor will change from green to red if he has been shocked. She reports the light never changed from green. 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 Wylie at [facility] in [place], [place]. He reports he saw him in October. He denies any CP, palpitations. He has chronic mild to mod dyspnea with chronic cough. Review of Systems-Cardiology Review of Systems Constitutional: No chills, No fever Eyes: No vision change Ears/Nose/Throat: No epistaxis, No recent hearing loss Respiratory: As described under HPI Cardiovascular: As described under HPI Gastrointestinal: No diarrhea, No nausea, No vomiting Genitourinary: No dysuria, No hematuria Skin: No other (dry, flaky, yellow skin to chest) Psychiatric/Neurological: As described under HPI Hematologic: No bleeding abnormalities FJG-Axkdrl-Wxoktz Hx Patient Social History Alcohol Use: Denies Use Recreational Drug Use: No Smoking Status: Former Smoker Former smoker/When Quit: Aug 02, 1987 Type Used: Cigarettes 2nd Hand Smoke Exposure: No Recent Foreign Travel: No Recent Infectious Disease Expo: No Physical Abuse Screen: No Sexual Abuse: No Immunizations Up To Date Tetanus Booster (TDap): More than 5yrs Date of Pneumonia Vaccine: Apr 29, 2014 Date of Influenza Vaccine: Jun 08, 2017 Past Medical History PMH As described under Assessment. Family Medical History Family History: Cardiovascular disease 19 MOTHER G8 BROTHER G8 SISTER Cervical cancer 19 MOTHER Allergies and Home Medications Allergies Coded Allergies: Penicillins (Verified Allergy, Severe, HIVES, SOB, 01/04/18) codeine (Verified Allergy, Severe, SOB, HIVES, 01/04/18) Home Medications Albuterol Sulfate 18 Gm Hfa.aer.ad, 2 PUFF IH QID PRN for SHORTNESS OF BREATH, ( Reported) Amiodarone HCl 200 Mg Tablet, 200 MG PO SuSa@00,1999, (Reported) Amlodipine Besylate 5 Mg Tablet, 5 MG PO HS, (Reported) LAST FILLED 02/01/17 #90 Azithromycin 250 Mg Tablet, 250 MG PO HS Prescribed by: EDIS SHEARER on 06/23/17 1028 Cefpodoxime Proxetil 200 Mg Tablet, 200 MG PO BID Prescribed by: EDIS SHEARER on 06/23/17 1028 Digoxin 125 Mcg Tablet, 125 MCG PO DAILY, (Reported) Esomeprazole Magnesium 40 Mg Capsule.dr, 40 MG PO DAILY, (Reported) Furosemide 40 Mg Tablet, 40 MG PO 0900,1500, (Reported) Metoprolol Tartrate 50 Mg Tablet, 25 MG PO BID, (Reported) TAKES 1/2 OF A (50 MG) TABLET Mexiletine HCl 150 Mg Cap, 150 MG PO TID, (Reported) Potassium Chloride 8 Meq Tablet.er, 8 MEQ PO DAILY, (Reported) LAST FILLED 02/01/17 #90 Patient Home Medication List Home Medication List Reviewed: Yes Physical Exam-Cardiology Physical Exam Vital Signs/I&O 01/04/18 01/04/18 01/04/18 11:46 11:46 17:00 Temp 98.0 Pulse 83 80 Resp 14 16 B/P (MAP) 179/89 (119) 148/77 (100) Pulse Ox 97 93 95 O2 Delivery Nasal Cannula Nasal Cannula Room Air O2 Flow Rate 3.00 3.00 Capillary Refill : Less Than 3 Seconds Constitutional: AAO x 3, well-developed, well-nourished HEENT: PERRL, hard of hearing; No oral hygience is good Neck: No carotid bruit; carotid pulses are 2 + bilaterally Respiratory: No accessory muscle use, No respiratory distress; chest expansion is symmetric, chest is bilaterally symmetric, wheezing (exp wheezes; prolonged expiratory phase; lose non-productive cough) Cardiovascular: regular rate-rhythm; No JVD; S1 and S2, systolic murmur Gastrointestinal: soft, audible bowel sounds Rectal: deferred Extremities: no lower extremity edema bilateral Neurologic/Psychiatric: grossly intact Skin: No rash, No ulcerations Data Review Labs Laboratory Tests 01/04/18 12:05: White Blood Count 11.9H, Red Blood Count 4.27L, Hemoglobin 13.6, Hematocrit 40, Mean Corpuscular Volume 94, Mean Corpuscular Hemoglobin 32, Mean Corpuscular Hemoglobin Concent 34, Red Cell Distribution Width 16.8H, Platelet Count 206, Mean Platelet Volume 9.9, Neutrophils (%) (Auto) 69, Lymphocytes (%) (Auto) 17, Monocytes (%) (Auto) 13H, Eosinophils (%) (Auto) 1, Basophils (%) (Auto) 0, Neutrophils # (Auto) 8.2H, Lymphocytes # (Auto) 2.1, Monocytes # (Auto) 1.5H, Eosinophils # (Auto) 0.1, Basophils # (Auto) 0.0, Prothrombin Time 13.7, INR Comment 1.1, Activated Partial Thromboplast Time 28, Sodium Level 140, Potassium Level 3.6, Chloride Level 101, Carbon Dioxide Level 27, Anion Gap 12, Blood Urea Nitrogen 14, Creatinine 0.84, Estimat Glomerular Filtration Rate > 60 , BUN/Creatinine Ratio 17, Glucose Level 150H, Calcium Level 9.9, Magnesium Level 1.7L, Total Bilirubin 0.5, Aspartate Amino Transf (AST/SGOT) 22, Alanine Aminotransferase (ALT/SGPT) 19, Alkaline Phosphatase 86, Myoglobin 68.0, Troponin I < 0.30, Total Protein 7.9, Albumin 3.8 01/04/18 12:09: Thyroid Stimulating Hormone (TSH) 2.75 01/04/18 18:02: Troponin I < 0.30 A/P-Cardiology Assessment/Admission Diagnosis ICD discharge, appropriate (to treat VF) CAD - CABG in 1987 in [place], [place] - exact details unkown. According to stent cards which he has with him: December 2001 Multi-link 2.5 x 18mm stent to the prox RCA. 2006 Cypher 3.5 x 30mm stent to the prox to mid circ H/O ICM - [facility] AICD implanted by Dr. Wylie in [place], [place] MPI 2013 showed LVEF 54% H/O PAF - has been maintained on Amiodarone Per spouse considered intolerant to OAC d/t bleeding ARRON [place] cardio[place] [address] Fonseca ARRON of [address] Fonseca showed LVEF 50%. Aortic valve calcification without stenosis. Mod to severe MR. Nocturnal hypoxemia requiring supplemental oxygen COPD General debility, w/c dependent Discussion and Recomendations * We discussed his CV issues with him * We have increase amiodarone from 200 mg to 400 mg daily * He has been admitted to eval for cor ischemia/PR and to treat any further arrhythmia * Consider cath if troponin positive or if has cp Clinical Quality Measures DVT/VTE Risk/Contraindication: Risk Factor Score Per Nursin RFS Level Per Nursing on Admit: 1=Low/No VTE PPX MIRNA URRUTIA MD FACP [facility] Jan 04, 2018 18:41
[2018-01-04 20:00] VITALS: BP 107/53
[2018-01-04] MEDS: CATHETER FLUSH 10 ML SYR IV SCH (22:37)
[2018-01-05 04:36] LABS: CHOLESTEROL 155 MG/DL (< 200); HDL CHOLESTEROL 30 MG/DL (40-60); TRIGLYCERIDES 112 MG/DL (<150); VLDL CHOLESTEROL 22 MG/DL (5-40)
[2018-01-05] MEDS: CATHETER FLUSH 10 ML SYR IV SCH ×2 (04:57→14:03)
[2018-01-05 08:00] VITALS: BP 152/81
[2018-01-05] MEDS: AMIODARONE 200 MG (CORDARONE) TAB PO SCH (08:25)
--- NOTE | 2018-01-05 09:46 | History & Physicial (CHS) ---
HPI History of Present Illness: 77-year-old male who is a patient of Dr. Elliot Ybarra at [facility] presents to the emergency department with concerns of defibrillator discharge According to his on the day of admission he apparently reached behind him and had onset of pain. She reports he had his eyes rolled back into his head. She was concerned this was a different ambulation discharge. He apparently had this placed through the [facility] in [facility]. He does have a history of cardiomyopathy as well. He was also noted the night prior to admission to be setting in his recliner when he had injured his left shoulder. Source: patient, family Exam Limitations: clinical condition Date seen by provider: Jan 05, 2018 Time Seen by Provider: 06:55 Attending Physician Maria C oRckwell MD PCP Elliot Ybarra MD Consult Date of Admission Jan 04, 2018 at 15:15 Home Medications Home Medications Reviewed patient Home Medication Reconciliation performed by pharmacy medication reconciliations detail technician and/or nursing. Patients Allergies have been reviewed. Allergies Coded Allergies: Penicillins (Verified Allergy, Severe, HIVES, SOB, 01/04/18) codeine (Verified Allergy, Severe, SOB, HIVES, 01/04/18) ITG-Fsnmjl-Eosjik Hx Patient Social History Marrital Status: Alcohol Use: Denies Use Recreational Drug Use: No Smoking Status: Former Smoker Former smoker/When Quit: Aug 02, 1987 Type Used: Cigarettes 2nd Hand Smoke Exposure: No Recent Foreign Travel: No Contact w/other who traveled: No Recent Hopitalizations: No Recent Infectious Disease Expo: No Physical Abuse Screen: No Sexual Abuse: No Immunizations Up To Date Tetanus Booster (TDap): More than 5yrs Date of Pneumonia Vaccine: Apr 29, 2014 Date of Influenza Vaccine: Jun 08, 2017 Family Medical History Significant Family History: No Pertinent Family Hx Family History: Cardiovascular disease 19 MOTHER G8 BROTHER G8 SISTER Cervical cancer 19 MOTHER Review of Systems (CHC) Constitutional: see HPI Reviewed Test Results Reviewed Test Results Lab Laboratory Tests Test 01/04/18 12:05 01/04/18 12:09 01/04/18 18:02 01/05/18 00:20 Range/Units White Blood Count 11.9 H 4.3-11.0 10^3/uL Red Blood Count 4.27 L 4.35-5.85 10^6/uL Hemoglobin 13.6 13.3-17.7 G/DL Hematocrit 40 40-54 % Mean Corpuscular Volume 94 80-99 FL Mean Corpuscular Hemoglobin 32 25-34 PG Mean Corpuscular Hemoglobin Concent 34 32-36 G/DL Red Cell Distribution Width 16.8 H 10.0-14.5 % Platelet Count 206 130-400 10^3/uL Mean Platelet Volume 9.9 7.4-10.4 FL Neutrophils (%) (Auto) 69 42-75 % Lymphocytes (%) (Auto) 17 12-44 % Monocytes (%) (Auto) 13 H 0-12 % Eosinophils (%) (Auto) 1 0-10 % Basophils (%) (Auto) 0 0-10 % Neutrophils # (Auto) 8.2 H 1.8-7.8 X 10^3 Lymphocytes # (Auto) 2.1 1.0-4.0 X 10^3 Monocytes # (Auto) 1.5 H 0.0-1.0 X 10^3 Eosinophils # (Auto) 0.1 0.0-0.3 10^3/uL Basophils # (Auto) 0.0 0.0-0.1 10^3/uL Prothrombin Time 13.7 12.2-14.7 SEC INR Comment 1.1 0.8-1.4 Activated Partial Thromboplast Time 28 24-35 SEC Sodium Level 140 135-145 MMOL/L Potassium Level 3.6 3.6-5.0 MMOL/L Chloride Level 101 98-107 MMOL/L Carbon Dioxide Level 27 21-32 MMOL/L Anion Gap 12 5-14 MMOL/L Blood Urea Nitrogen 14 7-18 MG/DL Creatinine 0.84 0.60-1.30 MG/DL Estimat Glomerular Filtration Rate > 60 BUN/Creatinine Ratio 17 Glucose Level 150 H 70-105 MG/DL Calcium Level 9.9 8.5-10.1 MG/DL Magnesium Level 1.7 L 1.8-2.4 MG/DL Total Bilirubin 0.5 0.1-1.0 MG/DL Aspartate Amino Transf (AST/SGOT) 22 5-34 U/L Alanine Aminotransferase (ALT/SGPT) 19 0-55 U/L Alkaline Phosphatase 86 40-136 U/L Myoglobin 68.0 10.0-92.0 NG/ML Troponin I < 0.30 < 0.30 < 0.30 <0.30 NG/ML Total Protein 7.9 6.4-8.2 GM/DL Albumin 3.8 3.2-4.5 GM/DL Thyroid Stimulating Hormone (TSH) 2.75 0.35-4.94 UIU/ML Test 01/05/18 03:30 Range/Units Triglycerides Level 112 <150 MG/DL Cholesterol Level 155 < 200 MG/DL LDL Cholesterol Direct 118 1-129 MG/DL VLDL Cholesterol 22 5-40 MG/DL HDL Cholesterol 30 L 40-60 MG/DL Radiology NAME: SRI PEOPLES [facility] REC#: [id number] PT STATUS: REG ER : 1940 PHYSICIAN: KIMBERLY GORMAN MD ADMIT DATE: 01/04/18/ER Draft Date of Exam:01/04/18 CHEST 1 VIEW, AP/PA ONLY INDICATION: Shortness of air. COMPARISON: 06/22/2017 FINDINGS: Single frontal radiographic view of the chest was obtained and demonstrates mild cardiomegaly. There is also mild prominence of pulmonary vasculature. Lungs show persistent elevation right hemidiaphragm, but otherwise clear. There is no focal consolidation, large effusion, and no pneumothorax. Left-sided AICD and sternotomy wires are noted. Bony structures show no gross acute abnormalities. IMPRESSION: 1. Moderate cardiomegaly and perhaps mild pulmonary vascular congestion. Dictated on workstation # [id number] Dict: 01/04/18 1317 Trans: 01/04/18 1324 [id number] Interpreted by: MONISHA CALDERA MD Electronically signed by: Physical Exam-(CHC) Physical Exam Vital Signs VS - Last 72 Hours, by Label 01/04/18 01/04/18 01/04/18 01/04/18 11:46 11:46 17:00 17:15 Temp 98.0 Pulse 83 80 Resp 14 16 B/P (MAP) 179/89 (119) 148/77 (100) Pulse Ox 97 93 95 96 O2 Delivery Nasal Cannula Nasal Cannula Room Air Nasal Cannula O2 Flow Rate 3.00 3.00 3.00 01/04/18 01/04/18 01/04/18 01/04/18 19:00 19:19 20:00 20:00 Temp 97.8 Pulse 78 70 80 Resp 15 18 B/P (MAP) 145/51 107/53 (71) Pulse Ox 99 99 94 O2 Delivery Nasal Cannula Room Air O2 Flow Rate 3.00 01/04/18 01/04/18 01/05/18 01/05/18 21:00 23:45 00:00 01:00 Pulse 78 Pulse Ox 94 O2 Delivery Nasal Cannula Nasal Cannula Nasal Cannula O2 Flow Rate 3.00 3.00 3.00 01/05/18 01/05/18 01/05/18 01/05/18 04:00 07:00 08:00 08:00 Pulse 78 Pulse Ox 96 O2 Delivery Nasal Cannula Nasal Cannula Nasal Cannula O2 Flow Rate 3.00 3.00 3.00 01/05/18 01/05/18 08:00 08:33 Temp 97.4 Pulse 79 Resp 16 B/P (MAP) 152/81 (104) Pulse Ox 96 O2 Delivery Room Air Nasal Cannula O2 Flow Rate 3.00 Capillary Refill : Less Than 3 Seconds General Appearance: no apparent distress Eyes: Bilateral Eye Normal Inspection Neck: supple Respiratory: lungs clear Cardiovascular: regular rate, rhythm (currently) Gastrointestinal: soft Rectal: deferred Neurologic/Psychiatric: normal mood/affect, oriented x 3 Skin: warm/dry Assessment/Plan Assessment/Plan Admission Dx 1. Possible defibrillation discharge 2. Cardiomyopathy--history of 3. Coronary artery disease 4. History of CABG 5. COPD Admission Status: Observation Reason for Inpatient Admission: Further evaluation of the defibrillator and monitoring of his cardiac rhythm in cardiac stepdown Assessment & Plan 1. Possible defibrillation discharge -further investigation -Cardiology input 2. Cardiomyopathy--history of 3. Coronary artery disease 4. History of CABG 5. COPD Clinical Quality Measures DVT/VTE Risk/Contraindication: Risk Factor Score Per Nursin RFS Level Per Nursing on Admit: 1=Low/No VTE PPX HUI OSCAR MD Jan 05, 2018 09:46
[2018-01-05 12:00] VITALS: BP 148/59
--- NOTE | 2018-01-05 13:12 | Progress Note-Cardiology ---
Cardiology SOAP Progress Note Subjective: No cp or palp No recurrence or syncope No shortness of breath Chronically limited ambulation due to chronic joint and back pain States he does not drive (has not for years) Objective: I&O/Vital Signs 01/05/18 01/05/18 01/05/18 01/05/18 04:00 07:00 08:00 08:00 Pulse 78 Pulse Ox 96 O2 Delivery Nasal Cannula Nasal Cannula Nasal Cannula O2 Flow Rate 3.00 3.00 3.00 01/05/18 01/05/18 08:00 08:33 Temp 97.4 Pulse 79 Resp 16 B/P (MAP) 152/81 (104) Pulse Ox 96 O2 Delivery Room Air Nasal Cannula O2 Flow Rate 3.00 01/05/18 00:00 Intake Total 250 ml Output Total 300 ml Balance -50 ml Weight (Pounds): 208 Weight (Ounces): 0.0 Weight (Calculated Kilograms): [id number] Constitutional: AAO x 3, well-developed, well-nourished Respiratory: No accessory muscle use, No respiratory distress; chest expansion is symmetric, chest is bilaterally symmetric, wheezing (exp wheezes; prolonged expiratory phase; lose non-productive cough) Cardiovascular: regular rate-rhythm; No JVD; S1 and S2, systolic murmur Gastrointestional: soft, audible bowel sounds Extremities: no lower extremity edema bilateral Neurologic/Psychiatric: grossly intact Skin: No rash, No ulcerations Results/Procedures: Labs Laboratory Tests 01/04/18 18:02: Troponin I < 0.30 01/05/18 00:20: Troponin I < 0.30 01/05/18 03:30: Triglycerides Level 112, Cholesterol Level 155, LDL Cholesterol Direct 118, VLDL Cholesterol 22, HDL Cholesterol 30L A/P: Assessment: ICD discharge, appropriate (to treat VF) CAD - CABG in 1987 in [place], [place] - exact details unkown. According to stent cards which he has with him: December 2001 Multi-link 2.5 x 18mm stent to the prox RCA. 2006 Cypher 3.5 x 30mm stent to the prox to mid circ H/O ICM - [facility] AICD implanted by Dr. Wylie in [place], [place] MPI 2013 showed LVEF 54% H/O PAF - has been maintained on Amiodarone Per spouse: considered intolerant to OAC d/t bleeding ARRON [place] [address] Fonseca ARRON [place] [address] Fonseca showed LVEF 50%. Aortic valve calcification without stenosis. Mod to severe MR. Nocturnal hypoxemia requiring supplemental oxygen COPD, [place] [facility] Leucocytosis, managed by the [facility] General debility, w/c dependent Plan: * We discussed his CV issues with him and his * There is no evidence of ac VA, but V Fib could have been due to transient ischemia. We have recommended card cath. He has not agreed. He wishes to go home. States will f/u with Dr Wilson, his radar air traffic controller and Dr Wylie, his clinical transformation specialist * We have advised to continue to refrain from driving and operating machinery * We have increased amiodarone to 400 mg daily * He understands all of the above and states will comply * Given borderline low K and Mg at presentation, he is getting K and Mg today * We have increase K from 8 mEq daily to 8 mEq bid (he is on furosemide 40 bid on a chronic basis) MIRNA URRUTIA MD FACP FAC CCDS Jan 05, 2018 13:12
[2018-01-05] MEDS ORDERED: KCL 20 MEQ TAB (K-DUR) PO NR (13:15)
[2018-01-05] MEDS ORDERED: POTA8TAB6 PO (13:18)
[2018-01-05] MEDS ORDERED: AMIO200T2 PO (13:18)
[2018-01-05] MEDS: MAGNESIUM 1 GM/100 ML IVPB 100 ML IV SCH ×2 (13:29→13:30)
== END 2018-01-05 15:57 | disposition home or self-care (01) ==
LOC: EDUNIT# 11:45 → ER 11:48 → UNDOADMOB 15:15 → ICU 15:15
PROVIDERS: ADMIT Family Medicine; ATTEND Family Medicine
DX: I49.01 Ventricular fibrillation (principal); I42.9 Cardiomyopathy, unspecified; I25.10 Atherosclerotic heart disease of native coronary artery without angina pectoris; R09.02 Hypoxemia; J44.9 Chronic obstructive pulmonary disease, unspecified; R53.81 Other malaise; Z87.891 Personal history of nicotine dependence; Z95.1 Presence of aortocoronary bypass graft; Z95.810 Presence of automatic (implantable) cardiac defibrillator
CPT/HCPCS: 36415; 71045; 73030; 80053; 80061; 83735; 83874; 84443; 84484; 85025; 85610; 85730; 93005; 93041; G0378

== ENCOUNTER 2018-02-02 19:21 | Inpatient (IN) | payer MEDICARE, MEDICAID ==
[~2018-02-02] VITALS: Ht 165.1 cm; Wt 95.3 kg
[2018-02-02] VITALS (9 sets, daily range): BP systolic 114–148; BP diastolic 59–76
[~2018-02-02 19:21] MED LIST changes: -AMIO200T2 PO; +AMIO200T4 PO; -IPRA3AMP INH; +IPRA3AMP31 INH
[2018-02-02] MEDS ORDERED: RT-ALBUTEROL/IPRATROPIUM 3 ML (DUONEB) VIAL INH ONE ×2 (19:30→20:00)
[2018-02-02 19:40] LABS: BILIRUBIN,URINE NEGATIVE (NEGATIVE); CLARITY,URINE SLIGHTLY CLOUDY; COLOR,URINE YELLOW; GLUCOSE, URINE (UA) NEGATIVE (NEGATIVE); KETONES,URINE NEGATIVE (NEGATIVE); LEUKOCYTE ESTERASE ,URINE 3+ (NEGATIVE); NITRITE,URINE POSITIVE (NEGATIVE); PH,URINE 7 (5-9); PROTEIN,URINE 1+ (NEGATIVE); UROBILINOGEN,URINE NORMAL (NORMAL)
[2018-02-02 19:46] LABS: BASOPHILS % (AUTO) 0 % (0-10); EOSINOPHILS # (AUTO) 0.1 10^3/uL (0.0-0.3); EOSINOPHILS % (AUTO) 0 % (0-10); HEMATOCRIT 47 % (40-54); HEMOGLOBIN 15.3 G/DL (13.3-17.7); LYMPHOCYTES # (AUTO) 0.9 X 10^3 (1.0-4.0); LYMPHOCYTES % (AUTO) 6 % (12-44); MEAN CORPUSCULAR HEMOGLOBIN 31 PG (25-34); MEAN CORPUSCULAR HGB CONC 33 G/DL (32-36); MEAN CORPUSCULAR VOLUME 95 FL (80-99); MEAN PLATELET VOLUME 10.5 FL (7.4-10.4); MONOCYTES # (AUTO) 0.8 X 10^3 (0.0-1.0); MONOCYTES % (AUTO) 5 % (0-12); NEUTROPHILS # (AUTO) 14.4 X 10^3 (1.8-7.8); NEUTROPHILS % (AUTO) 89 % (42-75); PLATELET COUNT 208 10^3/uL (130-400); RED BLOOD COUNT 4.94 10^6/uL (4.35-5.85); RED CELL DISTRIBUTION WIDTH 16.2 % (10.0-14.5); WHITE BLOOD COUNT 16.2 10^3/uL (4.3-11.0)
[2018-02-02 19:49] LABS: BACTERIA,URINE LARGE /HPF; WBC,URINE 50-100 /HPF
[2018-02-02] MEDS ORDERED: methylPREDNISolone 125 MG (Solu-MEDROL) VIAL IV STA (19:50)
[2018-02-02 19:58] LABS: INR 1.1 (0.8-1.4); PROTHROMBIN TIME PATIENT 13.7 SEC (12.2-14.7)
--- NOTE | 2018-02-02 19:58 | Diagnostic Imaging Report ---
INDICATION: Chills x1-2 hours Frontal chest obtained at 7:40 p.m. and is compared with 01/04/18. There is post sternotomy change with cardiomegaly with unchanged pacemaker device. There is some infiltrate in the right infrahilar region which is new compared to the prior study. Left lung is grossly clear. There is no pneumothorax or gross pleural fluid. IMPRESSION: Cardiomegaly with postoperative changes. There is mild central vascular congestion. There is new infiltrate in the right lung base, pneumonia is not excluded. Followup is recommended. Dictated by: Dictated on workstation # [id number]
[2018-02-02] MEDS ORDERED: ACETAMINOPHEN 500 MG TAB (TYLENOL) PO ONE (20:00)
[2018-02-02] MEDS ORDERED: NITROGLYCERIN 2% OINT 1 GM UNIT DOSE PACKET TOP ONE (20:00)
[2018-02-02] MEDS ORDERED: DEXAMETHASONE 4 MG/ML SDV (DECADRON) IH ONE (20:00)
[2018-02-02] MEDS ORDERED: FUROSEMIDE 40 MG/4 ML INJ (LASIX) IVP ONE (20:00)
[2018-02-02 20:01] LABS: ABG BASE EXCESS 4.7 MMOL/L (-2.5-2.5); ABG OXYGEN SATURATION 95 % (94-100); ABG PCO2 44 MMHG (35-45); ABG PH 7.44 (7.37-7.43); ABG PO2 77 MMHG (79-93); ABG TCO2 29.7 MMOL/L (21.0-31.0); ALLENS TEST POSITIVE; INSPIRED O2 4L; PATIENT TEMP 100.8; VENTILATOR NO
[2018-02-02] MEDS ORDERED: NS (IVPB) 50 ML ONE (20:02)
[2018-02-02] MEDS ORDERED: CEFEPIME HCL 2 GM (MAXIPIME) VIAL ONE (20:02)
[2018-02-02 20:07] LABS: ANISOCYTOSIS SLIGHT; BAND NEUTROPHILS 0 %; BASOPHILS % (MANUAL) 1 %; EOSINOPHILS % (MANUAL) 1 %; LYMPHOCYTES % (MANUAL) 6 %; MONOCYTES % (MANUAL) 5 %; NEUTROPHILS % (MANUAL) 87 %
[2018-02-02 20:08] LABS: ALBUMIN 4.2 GM/DL (3.2-4.5); BILIRUBIN,TOTAL 0.5 MG/DL (0.1-1.0); CALCIUM 10.3 MG/DL (8.5-10.1); CREATININE SERUM 1.32 MG/DL (0.60-1.30); POTASSIUM 3.8 MMOL/L (3.6-5.0); TOTAL PROTEIN 8.9 GM/DL (6.4-8.2)
[2018-02-02 20:14] LABS: DIGOXIN 0.66 NG/ML (0.80-2.00)
[2018-02-02] MEDS ORDERED: LABETALOL HCL 20 MG/4 ML VIAL IV ONE (20:45)
--- OUTSIDE RECORDS SUMMARY | 2018-02-02 20:49 | XMS REPORT ---
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 Active 92282748 Problem Ventricular arrhythmia I49.9 Active 93987575 Problem Essential hypertension I10 Active 94406408 Problem Coronary artery disease involving blue lake coronary artery of blue [place] heart without angina pectoris I25.10 Active [id number] Problem Stasis dermatitis of both legs I87.2 Active 69815765 Problem Chronic obstructive pulmonary disease, unspecified COPD type J44.9 Active 92888152 ALLERGIES No Information ENCOUNTERS Encounter Location Date Diagnosis [facility] [id number] [place] [address] 69941- 5529 12 Dec, 2017 [facility] [id number] [place] [address] 67039 -4631 November, Acute cystitis without hematuria N30.00 [facility] [id number] [place] [address] 17742 -3860 November, Acute cystitis without hematuria N30.00 [facility] [id number] [place] [address] 98284- 8118 November, [facility] [address] [address] Oct, Medicare annual wellness visit, initial Z00.00 ; Encounter for immunization Z23 ; Chronic obstructive pulmonary disease, unspecified COPD type J44.9 ; Coronary artery disease involving blue lake coronary artery of blue [place] heart without angina pectoris I25.10 ; Chronic congestive heart failure, unspecified congestive heart failure type I50.9 ; Essential hypertension I10 ; Ventricular arrhythmia I49.9 and Other atherosclerosis of blue lake arteries of extremities, 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 [place] [facility] [id number] [place] [address] 99133- 3959 Sep, Chronic congestive heart failure, unspecified congestive heart failure type I50.9 [facility] [id number] [place] [address] 81722- 5091 Aug, [facility] [id number] [place] [address] 63877- 6068 Aug, Chronic congestive heart failure, unspecified congestive heart failure type I50.9 ; Chronic obstructive pulmonary disease, unspecified COPD type J44.9 and Bilateral impacted cerumen H61.23 [place] [id number] [place] [address] 18973- 7712 Jul, [facility] [id number] [place] [address] 70904- 3705 Jul, [facility] [id number] [place] [address] 60890- 2801 Jun, [facility] [id number] [place] [address] 90571- 5381 Jun, [facility] [id number] [place] [address] 04324- 2591 Jun, Coronary artery disease involving blue lake coronary artery of blue lake heart without angina pectoris I25.10 [facility] [id number] [place] [address] 00087- 5362 Jun, [facility] [id number] [place] [address] 93931- 1456 May, Chronic obstructive pulmonary disease, unspecified COPD type J44.9 and History of pneumonia Z87.01 [facility] [id number] [place] [address] [id number] May, [facility] [id number] [place] [address] 86314- 5807 May, [facility] [id number] [place] [address] 13782- 6305 May, [facility] [id number] [place] [address] 56010- 4015 May, [facility] [address] 32628- 9734 Apr, [facility] [id number] [place] [address] 99147- 0032 Apr, Coronary artery disease involving blue [place] coronary artery of blue [place] heart without angina pectoris I25.10 and Ventricular arrhythmia I49.9 [facility] [id number] [place] [address] 35724- 2755 Apr, [facility] [address] 15978- 1718 Apr, [facility] [id number] [place] [address] 01224 -5022 Apr, Dysuria R30.0 and Acute cystitis without hematuria N30.00 [facility] [id number] [place] [address] 97774- 1352 Feb, Epistaxis R04.0 and Chronic obstructive pulmonary disease, unspecified COPD type J44.9 [facility] [id number] [place] [address] 61597- 0679 Jan, Fall from other pedestrian conveyance, initial encounter V00.891A [facility] [address] 83711- 8399 Jan, Chronic congestive heart failure, unspecified congestive heart failure type I50.9 ; Chronic obstructive pulmonary disease, unspecified COPD type J44.9 and Stasis dermatitis of both legs I87.2 [facility] [id number] [place] [address] 07274- 8363 November, Chronic congestive heart failure, unspecified congestive heart failure type I50.9 [facility] [address] [facility] [id number] [address] November, Coronary artery disease involving blue lake coronary artery of blue lake heart without angina pectoris I25.10 ; Chronic congestive heart failure, unspecified congestive heart failure type I50.9 and Chronic obstructive pulmonary disease, unspecified COPD type J44.9 [facility] [address] [facility] [id number] [address] Oct, [facility] [address] [facility] [id number], [place] [address] 3466 Oct, [facility] [address] [id number] [id number] Oct, [facility] [address] [id number] [id number] Sep, Via [facility] [address] [place] [id number] Sep, Essential hypertension I10 and Chronic congestive heart failure, unspecified congestive heart failure type I50.9 [facility] [id number] [id number] Sep, [facility] [address] [address] Sep, [facility] [address] [id number] [address] 7624 Jun, [facility] [address] [id number] [address]- 4246 Jun, [facility] [address] [id number] [address] 9950 May, [facility] [address] [address] 6005 May, [facility] [address] [id number] [address]- 3622 May, [facility] [address] [address]- 1043 May, [facility] [address] [id number] [address] 6480 May, Chronic congestive heart failure, unspecified congestive heart failure type I50.9 [facility] [address] [id number] [address] May, Pain of right lower extremity M79.604 ; History of atrial fibrillation without current medication Z86.79 and Acute deep vein thrombosis ( DVT) of femoral vein of right lower extremity I82.411 [facility] [address] [address] 5035 May, [facility] [address] [address]- 3377 Feb, [facility] [id number] [place] [address] 35811- 1195 Feb, Coronary artery disease involving blue lake coronary artery of blue lake heart without angina pectoris I25.10 ; Chronic congestive heart failure, unspecified congestive heart failure type I50.9 ; Cardiac defibrillator in place Z95.810 and Candidiasis B37.9 IMMUNIZATIONS No Known Immunizations SOCIAL HISTORY Never Assessed REASON FOR VISIT Lab results PLAN OF CARE VITAL SIGNS MEDICATIONS Unknown Medications RESULTS No Results PROCEDURES No Known procedures INSTRUCTIONS MEDICATIONS ADMINISTERED No Known Medications MEDICAL (GENERAL) HISTORY Type Description Date Medical History hypertension Medical History skin cancer-arms, face Medical History [place] Medical History Pneumonia Surgical History heart cath-2 stents, multiple balloons Surgical History open heart surgery 1987 Surgical History defibrillator placed 2013 Hospitalization History surgery Hospitalization History pneumonia 2014 Hospitalization History broken left hip at September Hospitalization History Bronchitis/clinical Pneumonia,hypoxia,sepsis - Via [facility] 06/21/17
--- OUTSIDE RECORDS SUMMARY | 2018-02-02 20:50 | XMS REPORT ---
Author Author ABHINAV GONZALEZ Organization [facility] [place] Address [address] [place] [address] Care Team Providers Care Dermatologist And Dermatopathologist Name Role Phone ABHINAV GONZALEZ Unavailable PROBLEMS Type Condition ICD9-CM Code QGF68-KT Code Onset Dates Condition Status SNOMED Code Problem Cardiac defibrillator in place Z95.810 Active 624291007 Problem Chronic congestive heart failure, unspecified congestive heart failure type I50.9 Active 25932148 Problem Other atherosclerosis of lummi arteries of extremities, 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 Active 95469660 Problem Ventricular arrhythmia I49.9 Active 45014961 Problem Essential hypertension I10 Active 79959477 Problem Coronary artery disease involving lummi coronary artery of lummi heart without angina pectoris I25.10 Active 2771992725216 Problem Stasis dermatitis of both legs I87.2 Active 19932022 Problem Chronic obstructive pulmonary disease, unspecified COPD type J44.9 Active 98803559 ALLERGIES No Information ENCOUNTERS Encounter Location Date Diagnosis [facility] [place] [address] [place] [address] 68674- 1460 12 Dec, 2017 [facility] [id number] [place] [address] 98824 -4525 November, Acute cystitis without hematuria N30.00 [facility] [address] [place] [address] 05613 -8503 November, Acute cystitis without hematuria N30.00 [facility] [place] [id number] [place] [address] 15566- 3755 November, [facility] [place] [address] [address]- 2262 Oct, Medicare annual wellness visit, initial Z00.00 ; Encounter for immunization Z23 ; Chronic obstructive pulmonary disease, unspecified COPD type J44.9 ; Coronary artery disease involving lummi coronary artery of lummi heart without angina pectoris I25.10 ; Chronic congestive heart failure, unspecified congestive heart failure type I50.9 ; Essential hypertension I10 ; Ventricular arrhythmia I49.9 and Other atherosclerosis of lummi arteries of extremities, 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 [place] [id number] [place] [address] 46517- 1954 Sep, Chronic congestive heart failure, unspecified congestive heart failure type I50.9 [place] [id number] [place] [address] 75456- 9910 Aug, [place] [id number] [place] [address] 92975- 1438 Aug, Chronic congestive heart failure, unspecified congestive heart failure type I50.9 ; Chronic obstructive pulmonary disease, unspecified COPD type J44.9 and Bilateral impacted cerumen H61.23 [place] [id number] [place] [address] 16127- 3723 Jul, [place] [id number] [place] [address] 71354- 9881 Jul, [place] [id number] [place] [address] 62377- 1411 Jun, [place] [id number] [place] [address] 42176- 5618 Jun, [place] [id number] [place] [address] 44427- 1582 Jun, Coronary artery disease involving lummi coronary artery of lummi heart without angina pectoris I25.10 [place] [id number] [place] [address] 96299- 4919 Jun, [place] [id number] [place] [address] 63262- 3262 May, Chronic obstructive pulmonary disease, unspecified COPD type J44.9 and History of pneumonia Z87.01 [facility] [place] [id number] [place] [address] [id number] May, [facility] [place] [address] [place] [address] 00672- 2632 May, [facility] [place] [id number] [place] [address] 29741- 4593 May, [facility] [place] [id number] [place] [address] 42083- 8450 May, [facility] [place] [address] 98299- 3705 Apr, [facility] [place] [id number] [place] [address] 08449- 7283 Apr, Coronary artery disease involving lummi coronary artery of lummi heart without angina pectoris I25.10 and Ventricular arrhythmia I49.9 [place] [id number] [place] [address] 54218- 3004 Apr, [facility] [place] [address] 85943- 0646 Apr, [facility] [id number] [place] [address] 27218 -6196 Apr, Dysuria R30.0 and Acute cystitis without hematuria N30.00 [place] [id number] [place] [address] 55462- 9421 Feb, Epistaxis R04.0 and Chronic obstructive pulmonary disease, unspecified COPD type J44.9 [place] [id number] [place] [address] 12745- 0323 Jan, Fall from other pedestrian conveyance, initial encounter V00.891A [place] [address] 22965- 7535 Jan, Chronic congestive heart failure, unspecified congestive heart failure type I50.9 ; Chronic obstructive pulmonary disease, unspecified COPD type J44.9 and Stasis dermatitis of both legs I87.2 [place] [id number] [place] [address] 84968- 0717 November, Chronic congestive heart failure, unspecified congestive heart failure type I50.9 [facility] [place] [address] [facility] [id number] [address]- 3966 November, Coronary artery disease involving lummi coronary artery of lummi heart without angina pectoris I25.10 ; Chronic congestive heart failure, unspecified congestive heart failure type I50.9 and Chronic obstructive pulmonary disease, unspecified COPD type J44.9 [facility] [place] [address] [facility] [id number] [place] [address]- 3246 Oct, [facility] [place] [address] [facility] [id number] [place] [address]- 4456 Oct, [facility] [place] [address] [id number] [id number] Oct, [facility] [place] [address] [id number] [id number] Sep, Via [facility] [place] [address] [place] [id number] Sep, Essential hypertension I10 and Chronic congestive heart failure, unspecified congestive heart failure type I50.9 [facility] [place] [id number] [place] [id number] Sep, [facility] [place] [address] [address]- 7086 Sep, [facility] [place] [address] [id number] [address]- 1775 Jun, [facility] [place] [address] [id number] [address]- 7026 Jun, [facility] [place] [address] [id number] [address]- 0340 May, [facility] [place] [address] [address]- 3529 May, [facility] [place] [address] [id number] [address]- 3619 May, [facility] [place] [address] [address]- 3671 May, [facility] [place] [address] [id number] [address]- 8219 May, Chronic congestive heart failure, unspecified congestive heart failure type I50.9 [facility] [address] [id number] [address]47 May, Pain of right lower extremity M79.604 ; History of atrial fibrillation without current medication Z86.79 and Acute deep vein thrombosis ( DVT) of femoral vein of right lower extremity I82.411 [facility] [place] [address] [address]- 3799 May, [facility] [place] [address] [address]- 7586 Feb, [facility] [place] [address] [address]- 8162 Feb, Coronary artery disease involving lummi coronary artery of lummi heart without angina pectoris I25.10 ; Chronic congestive heart failure, unspecified congestive heart failure type I50.9 ; Cardiac defibrillator in place Z95.810 and Candidiasis B37.9 IMMUNIZATIONS No Known Immunizations SOCIAL HISTORY Never Assessed REASON FOR VISIT Request order PLAN OF CARE VITAL SIGNS MEDICATIONS Unknown Medications RESULTS No Results PROCEDURES No Known procedures INSTRUCTIONS MEDICATIONS ADMINISTERED No Known Medications MEDICAL (GENERAL) HISTORY Type Description Date Medical History hypertension Medical History skin cancer-arms, face Medical History [place] Medical History Pneumonia Surgical History heart cath-2 stents, multiple balloons Surgical History open heart surgery 1987 Surgical History defibrillator placed 2013 Hospitalization History surgery Hospitalization History pneumonia 2014 Hospitalization History broken left hip at September Hospitalization History Bronchitis/clinical Pneumonia,hypoxia,sepsis - Via [facility] 06/21/17
[2018-02-02] MEDS ORDERED: IBUPROFEN 800 MG (MOTRIN) TAB PO ONE ×2 (21:16→21:30)
[2018-02-02] MEDS ORDERED: LEVOFLOXACIN 750 MG/D5W 150 ML PRE-MIX IV SCH (21:45)
[2018-02-02] MEDS ORDERED: IBUPROFEN 800 MG (MOTRIN) TAB PO PRN (21:45)
[2018-02-02 21:56] LABS: ABG OXYGEN SATURATION 99 % (94-100); ABG PCO2 42 MMHG (35-45); ABG PH 7.44 (7.37-7.43); ABG PO2 133 MMHG (79-93); ABG TCO2 29.1 MMOL/L (21.0-31.0)
[2018-02-02 22:02] LABS: ALLENS TEST POSITIVE; INSPIRED O2 50% CPAP; PATIENT TEMP 99.5; VENTILATOR NO
[2018-02-02] MEDS: D5 1/2 NS W/KCL 20 MEQ/L 1,000 ML IV SCH (22:02)
[2018-02-03] VITALS (48 sets, daily range): BP systolic 91–148; BP diastolic 41–90
[2018-02-03] MEDS ORDERED: FUROSEMIDE 40 MG/4 ML INJ (LASIX) IV ONE
[2018-02-03] MEDS ORDERED: RT-ALBUTEROL/IPRATROPIUM 3 ML (DUONEB) VIAL INH PRN (01:15)
[2018-02-03] MEDS: RT-ALBUTEROL/IPRATROPIUM 3 ML (DUONEB) VIAL INH SCH ×6 (02:00→22:13)
[2018-02-03] MEDS: methylPREDNISolone 125 MG (Solu-MEDROL) VIAL IV SCH ×2 (02:23→06:16)
[2018-02-03] MEDS ORDERED: RT-ALBUTEROL/IPRATROPIUM 3 ML (DUONEB) VIAL ONE ×2 (02:34→06:17)
[2018-02-03 04:00] LABS: BASOPHILS % (AUTO) 0 % (0-10); EOSINOPHILS % (AUTO) 0 % (0-10); HEMATOCRIT 40 % (40-54); HEMOGLOBIN 13.2 G/DL (13.3-17.7); LYMPHOCYTES # (AUTO) 0.5 X 10^3 (1.0-4.0); LYMPHOCYTES % (AUTO) 2 % (12-44); MEAN CORPUSCULAR HEMOGLOBIN 32 PG (25-34); MEAN CORPUSCULAR HGB CONC 33 G/DL (32-36); MEAN CORPUSCULAR VOLUME 95 FL (80-99); MEAN PLATELET VOLUME 10.9 FL (7.4-10.4); MONOCYTES # (AUTO) 0.3 X 10^3 (0.0-1.0); MONOCYTES % (AUTO) 2 % (0-12); NEUTROPHILS # (AUTO) 20.3 X 10^3 (1.8-7.8); NEUTROPHILS % (AUTO) 96 % (42-75); PLATELET COUNT 180 10^3/uL (130-400); RED BLOOD COUNT 4.18 10^6/uL (4.35-5.85); RED CELL DISTRIBUTION WIDTH 15.9 % (10.0-14.5); WHITE BLOOD COUNT 21.1 10^3/uL (4.3-11.0)
[2018-02-03 04:21] LABS: ALANINE AMINOTRANSFERASE 17 U/L (0-55); ALBUMIN 3.5 GM/DL (3.2-4.5); ALKALINE PHOSPHATASE 77 U/L (40-136); BILIRUBIN,TOTAL 0.6 MG/DL (0.1-1.0); BUN/CREATININE RATIO 10; CALCIUM 9.1 MG/DL (8.5-10.1); CARBON DIOXIDE 22 MMOL/L (21-32); CHLORIDE 100 MMOL/L (98-107); CREATININE SERUM 1.63 MG/DL (0.60-1.30); GFR ESTIMATED 41; MAGNESIUM 1.7 MG/DL (1.8-2.4); PHOSPHORUS 1.2 MG/DL (2.3-4.7); POTASSIUM 3.7 MMOL/L (3.6-5.0); SODIUM 136 MMOL/L (135-145); TOTAL PROTEIN 7.4 GM/DL (6.4-8.2)
[2018-02-03 04:28] LABS: GLUCOSE 409 MG/DL (70-105)
[2018-02-03] MEDS: POTASSIUM CL 10MEQ/50ML IVPB 50 ML IV SCH (04:37)
[2018-02-03] MEDS: MAGNESIUM 1 GM/100 ML IVPB 100 ML IV SCH ×3 (04:37→06:15)
[2018-02-03] MEDS: KCL 20 MEQ TAB (K-DUR) PO SCH (04:37)
[2018-02-03 04:39] LABS: LYMPHOCYTES % (MANUAL) 1 %; MONOCYTES % (MANUAL) 2 %; NEUTROPHILS % (MANUAL) 97 %; RBC MORPH NORMAL
[2018-02-03] MEDS ORDERED: inSUlin ASPART (NovoLOG) 1 UNIT/0.01 ML (CHARGE PER UNIT) ONE (05:08)
[2018-02-03] MEDS ORDERED: inSUlin ASPART (NovoLOG) 1 UNIT/0.01 ML (CHARGE PER UNIT) SQ SCH (06:00)
--- NOTE | 2018-02-03 07:21 | ED General ---
General Chief Complaint: Fever-Adult/Adol Stated Complaint: ACUTE ON CHRONIC RESPIRATORY FAILURE; SEPSIS; UTI Nursing Triage Note: patient reports that he is unable to get warm today. patient reports increase in SOA Nursing Sepsis Screen: Severe Sepsis Risk Source of Information: Patient (SOMEWHAT LIMITED HISTORIAN), EMS, Old Records ( SEE CHART FROM 06/21/17) History of Present Illness Date Seen by Provider: Feb 02, 2018 Time Seen by Provider: 19:20 Initial Comments PT ARRIVES VIA EMS FROM HOME PT CALLED EMS BECAUSE HE "COULDN'T GET WARM" ALL DAY TODAY HAS NOT HAD SWEATS, AND HAS NOT CHECKED HIS TEMPERATURE HAS AIRCONDITIONING IN HOME, BUT EMS REPORTS IT WAS NOT OVERLY COOL IN THE HOME --TEMP OUTSIDE IN UPPER 90'S WITH HEAT INDEX > 100. PT DID NOT TRY TO GO OUTSIDE TO TRY TO GET WARM. PT HAS COPD AND CHF, AND WEARS HOME O2 AT 3L/NC --ON DIRECT QUESTIONING HE DOES STATE THAT HE HAS BEEN MORE SHORT OF BREATH THAN NORMAL NO CHEST PAIN NO SWELLING IN LEGS/FEET STATES THE LAST TIME THAT HE FELT LIKE THIS, HE HAD PNEUMONIA NO SIGNIFICANT COUGH PT WITH MULTIPLE VISITS--LAST VISIT WAS 01/05/18 BECAUSE HIS DEFIBRILLATOR DISCHARGED PCP: DR. GONZALEZ AT [facility] Allergies and Home Medications Allergies Coded Allergies: Penicillins (Verified Allergy, Severe, HIVES, SOB, 01/04/18) codeine (Verified Allergy, Severe, SOB, HIVES, 01/04/18) Home Medications Albuterol Sulfate 18 Gm Hfa.aer.ad, 2 PUFF IH QID PRN for SHORTNESS OF BREATH, ( Reported) Albuterol Sulfate 1.25 Mg/3 Ml Vial.neb, 1.25 MG NEB BID, (Reported) Amiodarone HCl 200 Mg Tablet, 200 MG PO DAILY, (Reported) Amiodarone HCl 200 Mg Tablet, 200 MG PO SuWeSa@1999, (Reported) TAKES 200MG DOSE AT NIGHT THREE DAY A WEEK IN ADDITION TO 200MG EVERY MORNING. Amlodipine Besylate 5 Mg Tablet, 5 MG PO HS, (Reported) LAST FILLED 02/01/17 #90 Digoxin 125 Mcg Tablet, 125 MCG PO DAILY, (Reported) Esomeprazole Magnesium 40 Mg Capsule.dr, 40 MG PO DAILY, (Reported) Furosemide 40 Mg Tablet, 40 MG PO 0900,1500, (Reported) Metoprolol Tartrate 50 Mg Tablet, 25 MG PO BID, (Reported) TAKES 1/2 OF A (50 MG) TABLET Mexiletine HCl 150 Mg Cap, 150 MG PO TID, (Reported) Potassium Chloride 8 Meq Tablet.er, 16 MEQ PO DAILY, (Reported) TAKES 2 (8MEQ) TABLETS Patient Home Medication List Home Medication List Reviewed: Yes Review of Systems Constitutional: see HPI, chills Respiratory: see HPI, short of breath Cardiovascular: no symptoms reported, edema (CHRONIC/STABLE) Gastrointestinal: no symptoms reported Genitourinary: no symptoms reported Skin: no symptoms reported Psychiatric/Neurological: No Symptoms Reported Hematologic/Lymphatic: No Symptoms Reported Past Fcowenp-Augsmn-Ezxpuo Hx Patient Social History Alcohol Use: Denies Use Recreational Drug Use: No Smoking Status: Former Smoker (3 07/31-4 PPD, QUIT 1992) Type Used: Cigarettes Former Smoker, Quit: Jul 30, 1992 2nd Hand Smoke Exposure: No Recent Foreign Travel: No Contact w/Someone Who Travel: No Recent Infectious Disease Expo: No Recent Hopitalizations: No Physical Abuse: No Sexual Abuse: No Immunizations Up To Date Tetanus Booster (TDap): More than 5yrs Date of Pneumonia Vaccine: Apr 29, 2014 Date of Influenza Vaccine: Jun 08, 2017 Seasonal Allergies Seasonal Allergies: No Past Medical History Surgeries: Yes (SEE CHART FROM 06/21/17) Cardiac, CABG, Coronary Stent, Defibrillator, Eye Surgery, Joint Replacement, Orthopedic, Renal Respiratory: Yes (O2 3L/NC AT HS) Asthma, Pneumonia, Chronic Bronchitis, Sleep Apnea, COPD Currently Using CPAP: No Currently Using BIPAP: No Cardiac: Yes (CABG, DEFIBRILLATOR, CARDIAC CATHS-STENTS X2; CHF) Coronary Artery Disease, Heart Attack, High Cholesterol, Hypertension Neurological: Yes Dementia, Neuropathy Reproductive Disorders: Yes (unable to have children- mumps as a child) Sexually Transmitted Disease: No HIV/AIDS: No Genitourinary: Yes Bladder Infection, Kidney Stones Gastrointestinal: Yes Gastroesophageal Reflux, Ulcer Musculoskeletal: Yes (POOR MOBILITY) Arthritis, Fractures Endocrine: No HEENT: Yes Cataract, Glaucoma Loss of Vision: Bilateral Hearing Impairment: Hard of Hearing Cancer: Yes Skin What Type of Treatment Did You: Surgical Intervention Psychosocial: Yes Depression Nursing Suicide Risk Score: 0 Integumentary: Yes (shingles , SKIN CANCER) Blood Disorders: No Adverse Reaction/Blood Tranf: No Family Medical History Cardiovascular disease 19 MOTHER G8 BROTHER G8 SISTER Cervical cancer 19 MOTHER No Pertinent Family Hx Physical Exam Vital Signs Vital Signs - First Documented 02/03/18 02/03/18 02/03/18 00:00 00:34 08:00 Temp 97.6 Pulse 94 Resp 38 B/P (MAP) 120/58 (78) Pulse Ox 95 O2 Delivery NIV CPAP O2 Flow Rate 50.00 FiO2 35 Capillary Refill : Less Than 3 Seconds Height, Weight, BMI Height: 5', 5.00" Weight: 208lbs 4.0oz, [id number] Method:Stated ,34.6BMI General Appearance: Other (TREMULOUS, SLIGHTLY DYSPNEIC. ) Respiratory: No Accessory Muscle Use, Decreased Breath Sounds (IN BASES), Other (SLIGHTLY DYSPNEIC) Cardiovascular: No Edema, No Murmur, Tachycardia Gastrointestinal: Non Tender, Soft Extremity: Normal Inspection, Pedal Edema (2-3+ EDEMA WITH CHRONIC VENOUS STASIS CHANGES BILATERALLY) Neurologic/Psychiatric: Alert, Oriented x3 (BUT POOR MEMORY), No Motor/Sensory Deficits, Normal Mood/Affect, publicity consultant II-XII Norm as Tested Skin: Normal Color, Warm/Dry, Other (CHRONIC SKIN CHANGES TO FACE, ARMS AND LEGS. ) Focused Exam Lactate Level Progress/Results/Core Measures Suspected Sepsis Recent Fever Within 48 Hours: No Infection Criteria Present: Suspected New Infection New/Unexplained Altered Menta: No Sepsis Screen: Severe Sepsis Risk SIRS Temperature:97.9 Pulse: 78 Respiratory Rate: 14 Laboratory Tests 02/07/18 06:35: White Blood Count 14.0H Blood Pressure 96 /44 Mean: 61 Laboratory Tests 02/07/18 05:48: Creatinine 1.44H 02/07/18 06:35: Platelet Count 123L Results/Orders Lab Results My Orders Medications Given in ED Vital Signs/I&O Capillary Refill : Less Than 3 Seconds Blood Pressure Mean: 61 Point of Care Testing Finger Stick Blood Glucose: 409 Blood Glucose Action Taken: E-ICU NOTIFIED Progress Note : Progress Note 1949--PT WITH SIGNIFICANTLY INCREASED DYSPNEA, DECREASED AERATION IN ALL LUNG POPE--IMMEDIATELY PLACED ON BIPAP. 2009--CONVERTED TO CPAP ON RECEIVING ABG RESULTS BREATHING IS LESS LABORED, INCREASED AERATION 2104--DISCUSSED WITH ON PHONE, POLICE CONTACTED AND THEY WILL BRING HER TO ER, SHE DOES NOT DRIVE. PT STATES HE WISHES TO BE A FULL CODE, AND VERIFIES THIS . TEMP UP TO 102.8 PRIOR TO ADMIT. TYLENOL AND MOTRIN HAD BEEN ORDERED, BUT PT UNABLE TO TAKE ON ARRIVAL, DUE TO BREATHING STATUS BP 150/89, HR 116 AT TIME OF ADMIT ECG Initial ECG Impression Date: Feb 02, 2018 Initial ECG Impression Time: 19:28 Initial ECG Rate: 101 Comment TOO MUCH ARTIFACT TO READ ACCURATELY, IVCD--PT SHAKING UNCONTROLLABLY Diagnostic Imaging Comments CXR--CARDIOMEGALY, CENTRAL VASCULAR CONGESTION, RIGHT RIGHT BASE INFILTRATE-- PER RADIOLOGIST REPORT @ 2100 Reviewed: Reviewed by Me Departure Communication (Admissions) 2015--SPOKE WITH DR. CHUNG, ACCEPTS PT FOR ADMIT. Impression Primary Impression: Acute on chronic respiratory failure Additional Impressions: RLL pneumonia CHF (congestive heart failure) COPD (chronic obstructive pulmonary disease) Sepsis UTI (urinary tract infection) Disposition: ADMITTED INPATIENT Condition: Improved Admissions Decision to Admit Reason: Admit from ER (General) Decision to Admit/Date: Feb 02, 2018 Time/Decision to Admit Time: 20:15 Departure-Patient Inst. Referrals: ABHINAV GONZALEZ MD (PCP) Primary Care Physician DEVORA CORDERO DO Feb 03, 2018 07:21
[2018-02-03] MEDS: D5 1/2 NS W/KCL 20 MEQ/L 1,000 ML IV SCH (07:37)
[2018-02-03] MEDS: inSUlin ASPART (NovoLOG) 1 UNIT/0.01 ML (CHARGE PER UNIT) SQ SCH ×5 (07:47→23:46)
[2018-02-03] MEDS: ENOXAPARIN 40 MG/0.4 ML (LOVENOX) SYR SQ SCH (09:09)
--- NOTE | 2018-02-03 09:37 | Diagnostic Imaging Report ---
EXAM: Portable erect AP chest at 3:22 INDICATION: Respiratory distress When compared to the prior exam of 02/02/2018, there does not appear to have been any significant change. The heart is stable in size. There is still mild pulmonary congestion. There is a small amount of atelectasis/infiltrate and fluid partially obscuring the right lung base. The mediastinum is not widened. The osseous structures are intact. The left-sided pacemaker seen previously is again evident and no different. IMPRESSION: Stable chest. There has been no adverse change since the prior exam. Dictated by: Dictated on workstation # [id number]
[2018-02-03] MEDS ORDERED: NS IV 1000 ML 1,000 ML ONE (11:13)
[2018-02-03] MEDS: NS IV 1000 ML 1,000 ML IV SCH (11:23)
--- NOTE | 2018-02-03 13:40 | History & Physicial (CHS) ---
HPI History of Present Illness: This is a 77yo male, patient of Dr. Ybarra'amirah who presented to ER w/ c/o feeling weak and fatigued for the past week. Pt denies significant dyspnea though he was noted to be in respiratory distress in the ER. Pt reports he had some burning with urination this past week. Unsure if he has had a fever. Denies cough or increased sputum production, denies CP or abdominal pain. Source: patient Date seen by provider: Feb 03, 2018 Time Seen by Provider: 08:00 Attending Physician Antonia Alvarez DO PCP Elliot Ybarra MD Consult Date of Admission Feb 02, 2018 at 20:15 Home Medications Home Medications Reviewed patient Home Medication Reconciliation performed by pharmacy medication reconciliations senior pharmacy technician and/or nursing. Patients Allergies have been reviewed. Allergies Coded Allergies: Penicillins (Verified Allergy, Severe, HIVES, SOB, 01/04/18) codeine (Verified Allergy, Severe, SOB, HIVES, 01/04/18) [id number]-Ofzopz Hx Patient Social History Alcohol Use: Denies Use Recreational Drug Use: No Smoking Status: Former Smoker Former smoker/When Quit: Aug 02, 1987 Type Used: Cigarettes 2nd Hand Smoke Exposure: No Recent Foreign Travel: No Contact w/other who traveled: No Recent Hopitalizations: No Recent Infectious Disease Expo: No Physical Abuse Screen: No Sexual Abuse: No Immunizations Up To Date Tetanus Booster (TDap): More than 5yrs Date of Pneumonia Vaccine: Apr 29, 2014 Date of Influenza Vaccine: Jun 08, 2017 Past Medical History CAD s/p CABG and stent x2 CHF Hypertension COPD hx of ventricular arrhythmia s/p defibrillator placement Atherosclerosis of the R leg Stasis dematitis Family Medical History Significant Family History: No Pertinent Family Hx Family History: Cardiovascular disease 19 MOTHER G8 BROTHER G8 SISTER Cervical cancer 19 MOTHER Review of Systems (CHC) Constitutional: fever, malaise, weakness EENTM: see HPI Respiratory: short of breath (chronic) Cardiovascular: No chest pain, No palpitations Gastrointestinal: no symptoms reported Genitourinary: dysuria Musculoskeletal: no symptoms reported Skin: no symptoms reported Psychiatric/Neurological: No Symptoms Reported Reviewed Test Results Reviewed Test Results Lab Laboratory Tests 02/02/18 19:26: Urine Color YELLOW, Urine Clarity SLIGHTLY CLOUDY, Urine pH 7, Urine Specific Council 1.010L, Urine Protein 1+H, Urine Glucose (UA) NEGATIVE, Urine Ketones NEGATIVE, Urine Nitrite POSITIVEH, Urine Bilirubin NEGATIVE, Urine Urobilinogen NORMAL, Urine Leukocyte Esterase 3+H, Urine RBC (Auto) 4+H, Urine RBC 5-10H, Urine WBC 50-100H, Urine Crystals NONE, Urine Bacteria LARGEH, Urine Casts NONE , Urine Mucus NEGATIVE, Urine Culture Indicated YES 02/02/18 19:28: White Blood Count 16.2H, Red Blood Count 4.94, Hemoglobin 15.3, Hematocrit 47, Mean Corpuscular Volume 95, Mean Corpuscular Hemoglobin 31, Mean Corpuscular Hemoglobin Concent 33, Red Cell Distribution Width 16.2H, Platelet Count 208, Mean Platelet Volume 10.5H, Neutrophils (%) (Auto) 89H, Lymphocytes (%) (Auto) 6L, Monocytes (%) (Auto) 5, Eosinophils (%) (Auto) 0, Basophils (%) (Auto) 0, Neutrophils # (Auto) 14.4H, Lymphocytes # (Auto) 0.9L, Monocytes # (Auto) 0.8, Eosinophils # (Auto) 0.1, Basophils # (Auto) 0.0, Neutrophils % (Manual) 87, Lymphocytes % (Manual) 6, Monocytes % (Manual) 5, Eosinophils % (Manual) 1, Basophils % (Manual) 1, Band Neutrophils 0, Anisocytosis SLIGHT, Prothrombin Time 13.7, INR Comment 1.1, Activated Partial Thromboplast Time 29, Sodium Level 141, Potassium Level 3.8, Chloride Level 99, Carbon Dioxide Level 29, Anion Gap 13, Blood Urea Nitrogen 12, Creatinine 1.32H, Estimat Glomerular Filtration Rate 53, BUN/Creatinine Ratio 9, Glucose Level 180H, Lactic Acid Level 2.66*H, Calcium Level 10.3H, Magnesium Level 2.0, Total Bilirubin 0.5, Aspartate Amino Transf (AST/SGOT) 25, Alanine Aminotransferase (ALT/SGPT) 21, Alkaline Phosphatase 109, Troponin I < 0.30, B-Type Natriuretic Peptide 115.7H, Total Protein 8.9H, Albumin 4.2, Digoxin Level 0.66L 02/02/18 19:54: Blood Gas Puncture Site LEFT RADIAL, Blood Gas Patient Temperature 100.8, Arterial Blood pH 7.44H, Arterial Blood Partial Pressure CO2 44, Arterial Blood Partial Pressure O2 77L, Arterial Blood HCO3 29H, Arterial Blood Total CO2 29.7 , Arterial Blood Oxygen Saturation 95, Arterial Blood Base Excess 4.7H, Cordell Test POSITIVE, Blood Gas Ventilator Setting NO, Blood Gas Inspired Oxygen 4L 02/02/18 21:36: Lactic Acid Level 2.17*H 02/02/18 21:47: Blood Gas Puncture Site LEFT RADIAL, Blood Gas Patient Temperature 99.5, Arterial Blood pH 7.44H, Arterial Blood Partial Pressure CO2 42, Arterial Blood Partial Pressure O2 133H, Arterial Blood HCO3 28H, Arterial Blood Total CO2 29.1 , Arterial Blood Oxygen Saturation 99, Arterial Blood Base Excess 4.0H, Cordell Test POSITIVE, Blood Gas Ventilator Setting NO, Blood Gas Inspired Oxygen 50% CPAP 02/03/18 03:15: White Blood Count 21.1H, Red Blood Count 4.18L, Hemoglobin 13.2L, Hematocrit 40 , Mean Corpuscular Volume 95, Mean Corpuscular Hemoglobin 32, Mean Corpuscular Hemoglobin Concent 33, Red Cell Distribution Width 15.9H, Platelet Count 180, Mean Platelet Volume 10.9H, Neutrophils (%) (Auto) 96H, Lymphocytes (%) (Auto) 2L, Monocytes (%) (Auto) 2, Eosinophils (%) (Auto) 0, Basophils (%) (Auto) 0, Neutrophils # (Auto) 20.3H, Lymphocytes # (Auto) 0.5L, Monocytes # (Auto) 0.3, Eosinophils # (Auto) 0.0, Basophils # (Auto) 0.0, Neutrophils % (Manual) 97, Lymphocytes % (Manual) 1, Monocytes % (Manual) 2, Blood Morphology Comment NORMAL, Sodium Level 136, Potassium Level 3.7, Chloride Level 100, Carbon Dioxide Level 22, Anion Gap 14, Blood Urea Nitrogen 17, Creatinine 1.63H, Estimat Glomerular Filtration Rate 41, BUN/Creatinine Ratio 10, Glucose Level 409*H, Calcium Level 9.1, Phosphorus Level 1.2L, Magnesium Level 1.7L, Total Bilirubin 0.6, Aspartate Amino Transf (AST/SGOT) 25, Alanine Aminotransferase ( ALT/SGPT) 17, Alkaline Phosphatase 77, Troponin I < 0.30, Total Protein 7.4, Albumin 3.5 02/03/18 07:42: Glucometer 378H 02/03/18 11:57: Glucometer 366H Microbiology 02/02/18 Blood Culture - Preliminary, Resulted Gram Negative Trey See Comments Radiology Date of Exam: 02/02/18 CHEST 1 VIEW, AP/PA ONLY INDICATION: Chills x1-2 hours Frontal chest obtained at 7:40 p.m. and is compared with 01/04/18. There is post sternotomy change with cardiomegaly with unchanged pacemaker device. There is some infiltrate in the right infrahilar region which is new compared to the prior study. Left lung is grossly clear. There is no pneumothorax or gross pleural fluid. IMPRESSION: Cardiomegaly with postoperative changes. There is mild central vascular congestion. There is new infiltrate in the right lung base, pneumonia is not excluded. Followup is recommended. Physical Exam-(CHC) Physical Exam Vital Signs VS - Last 72 Hours, by Label 02/02/18 02/02/18 02/02/18 02/02/18 19:25 19:25 19:40 20:17 Temp 100.8 Pulse 108 124 Resp 24 41 B/P (MAP) 213/112 (145) Pulse Ox 97 96 97 O2 Delivery Nasal Cannula Nasal Cannula Nasal Cannula O2 Flow Rate 3.00 3.00 60.00 02/02/18 02/02/18 02/02/18 02/02/18 21:14 21:30 21:30 21:36 Temp 102.8 99.5 Pulse 116 108 111 110 Resp 18 36 B/P (MAP) 159/91 148/76 (100) Pulse Ox 95 96 O2 Delivery NIV CPAP NIV CPAP O2 Flow Rate 50.00 50.00 02/02/18 02/02/18 02/02/18 02/02/18 21:53 22:00 22:15 22:30 Temp 98.8 Pulse 103 102 101 Resp 33 29 35 B/P (MAP) 129/64 (85) 133/69 (90) 132/62 (85) Pulse Ox 95 96 96 O2 Delivery NIV CPAP NIV CPAP NIV CPAP O2 Flow Rate 50.00 50.00 50.00 02/02/18 02/02/18 02/02/18 02/02/18 22:41 22:45 23:00 23:15 Pulse 95 98 96 Resp 25 30 25 B/P (MAP) 129/64 (85) 131/63 (85) 114/63 (80) Pulse Ox 95 96 95 O2 Delivery NIV CPAP NIV CPAP NIV CPAP NIV CPAP O2 Flow Rate 50.00 50.00 50.00 FiO2 50 7/7/18 7//18 7/7/18 7/8/18 23:30 23:41 23:45 00:00 Temp 97.7 Pulse 93 94 Resp 20 31 B/P (MAP) 119/60 (79) 121/59 (79) Pulse Ox 95 95 95 O2 Delivery NIV CPAP NIV CPAP NIV CPAP O2 Flow Rate 50.00 50.00 50.00 7/8/18 7/8/18 7/8/18 7/8/18 00:00 00:01 00:15 00:30 Pulse 94 78 87 87 Resp 38 19 23 22 B/P (MAP) 120/58 (78) 116/57 (76) 114/53 (73) Pulse Ox 95 96 95 94 O2 Delivery NIV CPAP NIV CPAP NIV CPAP O2 Flow Rate 50.00 35.00 50.00 50.00 7/8/18 7/8/18 7/8/18 7/8/18 00:31 00:34 00:45 01:00 Temp 97.6 Pulse 111 86 90 Resp 24 21 B/P (MAP) 102/57 (72) 103/49 (67) Pulse Ox 96 96 96 O2 Delivery NIV CPAP NIV CPAP O2 Flow Rate 50.00 50.00 7/8/18 7/8/18 7/8/18 7/8/18 01:00 01:15 01:30 01:45 Pulse 84 90 86 86 Resp 21 23 21 B/P (MAP) 105/49 (67) 98/48 (65) 98/51 (67) Pulse Ox 96 95 95 O2 Delivery NIV CPAP NIV CPAP NIV CPAP O2 Flow Rate 50.00 50.00 50.00 7/8/18 7/8/18 7/8/18 7/8/18 02:00 02:00 02:15 02:30 Pulse 87 80 80 79 Resp 21 33 20 34 B/P (MAP) 91/46 (61) 106/54 (71) 122/61 (81) Pulse Ox 95 96 95 96 O2 Delivery NIV CPAP NIV CPAP NIV CPAP O2 Flow Rate 50.00 35.00 35.00 35.00 7/8/18 7/8/18 7/8/18 7/8/18 02:45 03:00 03:15 03:30 Pulse 81 82 91 79 Resp 24 19 35 27 B/P (MAP) 111/56 (74) 116/51 (72) 120/69 (86) 114/53 (73) Pulse Ox 98 97 98 96 O2 Delivery NIV CPAP NIV CPAP NIV CPAP NIV CPAP O2 Flow Rate 35.00 35.00 35.00 35.00 7/8/18 7/8/18 7/8/18 7/8/18 03:45 03:57 04:00 04:00 Temp 97.9 Pulse 78 78 Resp 24 19 B/P (MAP) 108/55 (72) 103/50 (67) Pulse Ox 96 96 96 O2 Delivery NIV CPAP NIV CPAP NIV CPAP O2 Flow Rate 35.00 35.00 35.00 7/8/18 7/8/18 7/8/18 7//18 04:15 04:30 04:45 05:00 Pulse 84 78 78 88 Resp 30 18 18 19 B/P (MAP) 116/62 (80) 107/49 (68) 104/49 (67) 101/49 (66) Pulse Ox 97 96 96 96 O2 Delivery NIV CPAP NIV CPAP NIV CPAP NIV CPAP O2 Flow Rate 35.00 35.00 35.00 35.00 7/8/18 7/8/18 7/8/18 7/8/18 05:15 05:30 05:45 06:00 Pulse 82 70 75 70 Resp 28 16 10 11 B/P (MAP) 115/60 (78) 117/53 (74) 110/50 (70) 111/45 (67) Pulse Ox 97 96 97 95 O2 Delivery NIV CPAP NIV CPAP NIV CPAP NIV CPAP O2 Flow Rate 35.00 35.00 35.00 35.00 7/8/18 7/8/18 7/8/18 7/8/18 06:15 06:28 06:30 06:45 Pulse 78 79 77 78 Resp 21 19 18 14 B/P (MAP) 109/45 (66) 101/44 (63) 96/44 (61) Pulse Ox 95 94 O2 Delivery NIV CPAP NIV CPAP NIV CPAP O2 Flow Rate 35.00 35.00 35.00 35.00 7/8/18 7/8/18 7/8/18 7/8/18 07:00 07:00 08:00 08:00 Temp 97.3 Pulse 78 79 81 Resp 19 18 B/P (MAP) 92/41 (58) 113/48 (69) Pulse Ox 96 97 97 O2 Delivery NIV CPAP NIV CPAP NIV CPAP O2 Flow Rate 35.00 35.00 FiO2 35 02/03/18 02/03/18 02/03/18 02/03/18 09:00 10:00 10:35 11:00 Pulse 85 90 86 Resp 19 24 20 B/P (MAP) 120/53 (75) 107/48 (67) 106/47 (66) Pulse Ox 93 96 96 96 O2 Delivery NIV CPAP NIV CPAP Nasal Cannula NIV CPAP O2 Flow Rate 35.00 35.00 3.00 35.00 02/03/18 02/03/18 02/03/18 02/03/18 12:00 12:00 12:00 13:00 Temp 97.2 Pulse 90 89 87 Resp 20 24 B/P (MAP) 108/47 (67) 108/47 (67) Pulse Ox 94 94 93 O2 Delivery Nasal Cannula Nasal Cannula NIV CPAP O2 Flow Rate 3.00 4.00 35.00 02/03/18 13:00 Pulse 87 Resp 17 B/P (MAP) 101/47 (65) Pulse Ox 95 O2 Delivery Nasal Cannula O2 Flow Rate 4.00 Capillary Refill : Less Than 3 Seconds General Appearance: WD/WN, no apparent distress HEENT: PERRL/EOMI Respiratory: lungs clear, no respiratory distress Cardiovascular: regular rate, rhythm Gastrointestinal: non tender, soft Back: normal inspection Extremities: no pedal edema Neurologic/Psychiatric: alert, normal mood/affect, oriented x 3 Skin: normal color, warm/dry Assessment/Plan Assessment/Plan Admission Dx 1. Sepsis 2. UTI 3. R Lower Lobe Pneumonia 4. Acute on Chronic Respiratory Failure 5. Hyperglycemia w/o prior hx of DM Admission Status: Inpatient Order (span 2 midnights) Reason for Inpatient Admission: Sepsis and respiratory failure requiring ICU admission Assessment & Plan 1. Sepsis w/ bacteremia likely secondary to urinary source - Adm to ICU 02/02/18 - wbc 16.2 --> 21.1; Lactic acid 2.66 --> 2.17 - blood cultures prelim show GNR; urine culture pending - sent to outside lab - on Cefepime and Levaquin - hypotension initially, responsive to IVF; holding BP meds 2. UTI - Blood cultures prelim show GNR; reviewed clinic records urine culture from showed P. Mirabilis w/ resistance to Levaquin but sensitive to Cefepime - started Cefepime and Levaquin 02/02/18 3. R Lower Lobe Pneumonia - RLL infiltrated noted on CXR - Currently on Cefepime and Levaquin 4. Acute on Chronic Respiratory Failure - uses 3L oxygen at home; started on c-pap in ER due to work of breathing - breathing improved since admission - maintained sats w/o respiratory distress off c-pap - will DC and continue oxygen by SC. 5. Hyperglycemia w/o prior hx of DM - no hx of DM diagnosis; reviewed clinic records, last lab was 06/2017 - glucose was 101 - A1c pending - being treated w/ Novolog SSI; BS running 180-409 - pt received Solu-Medrol and Decadron in the ER which is likely exacerbating hyperglycemia - steroids DC as patient has no wheezing. - will start Levemir 10U in addition to SSI until A1c is back and longer-term treatment is determined. 6. CAD w/ hx of ventricular arrhythmia s/p defibrillator - resume home meds: amiodarone, Digoxin, Mexiletine 7. CHF - continue home furosemide and KCl 8. Hypertension - will hold Metoprolol, Norvasc due to hypotension 9. JOAN - baseline Cr from 06/2017 0.97, GFR >60 - Cr 1.32 -->1.63; continue to monitor; IVF currently running at 60mL/h 10. Electrolyte abnormalities - Phos low at 1.2 - will replace - Mag low at 1.7 - replaced Clinical Quality Measures DVT/VTE Risk/Contraindication: Risk Factor Score Per Nursin RFS Level Per Nursing on Admit: 4+=Very High Risk Score Comment: ANTONIA Goins DO Feb 03, 2018 13:40
[2018-02-03] MEDS ORDERED: POTASSIUM PHOSPHATE INJ 15 MM in NS (IVPB) 250 ML IV ONE (13:45)
[2018-02-03] MEDS: FUROSEMIDE 40 MG (LASIX) TAB PO SCH (14:44)
[2018-02-03] MEDS: inSUlin DETERMIR 1 UNIT/0.01 ML (LEVEMIR) CHARGE PER UNIT SQ SCH (14:46)
[2018-02-03] MEDS: KCL 8 MEQ (MICRO K) TABLET PO SCH (16:18)
[2018-02-03] MEDS: CEFEPIME 2 GM/NS 50 ML IVPB IV SCH ×2 (19:59)
[2018-02-03] MEDS: MEXILETINE 150 MG (MEXITIL) CAPSULE PO SCH (20:00)
[2018-02-03] MEDS ORDERED: methylPREDNISolone 40 MG/ML (Solu-MEDROL) VIAL IV SCH (21:00)
[2018-02-03] MEDS ORDERED: MEXILETINE HCL 150 MG PO SCH (21:00)
[2018-02-03] MEDS ORDERED: NON-FORMULARY MEDICATION 1 EA EA (Potassium Chloride 8 MEQ) PO SCH (21:00)
[2018-02-04] VITALS (14 sets, daily range): BP systolic 101–140; BP diastolic 50–89
[2018-02-04] MEDS: RT-ALBUTEROL/IPRATROPIUM 3 ML (DUONEB) VIAL INH SCH ×6 (02:41→22:23)
[2018-02-04 03:49] LABS: BASOPHILS % (AUTO) 0 % (0-10); EOSINOPHILS % (AUTO) 0 % (0-10); HEMATOCRIT 39 % (40-54); HEMOGLOBIN 12.9 G/DL (13.3-17.7); LYMPHOCYTES # (AUTO) 0.5 X 10^3 (1.0-4.0); LYMPHOCYTES % (AUTO) 2 % (12-44); MEAN CORPUSCULAR HEMOGLOBIN 31 PG (25-34); MEAN CORPUSCULAR HGB CONC 33 G/DL (32-36); MEAN CORPUSCULAR VOLUME 94 FL (80-99); MEAN PLATELET VOLUME 10.7 FL (7.4-10.4); MONOCYTES # (AUTO) 1.5 X 10^3 (0.0-1.0); MONOCYTES % (AUTO) 5 % (0-12); NEUTROPHILS # (AUTO) 26.4 X 10^3 (1.8-7.8); NEUTROPHILS % (AUTO) 93 % (42-75); PLATELET COUNT 175 10^3/uL (130-400); RED BLOOD COUNT 4.13 10^6/uL (4.35-5.85); RED CELL DISTRIBUTION WIDTH 16.1 % (10.0-14.5); WHITE BLOOD COUNT 28.4 10^3/uL (4.3-11.0)
[2018-02-04 04:06] LABS: CALCIUM 9.1 MG/DL (8.5-10.1); CREATININE SERUM 1.47 MG/DL (0.60-1.30); MAGNESIUM 2.1 MG/DL (1.8-2.4); PHOSPHORUS 4.3 MG/DL (2.3-4.7); POTASSIUM 3.9 MMOL/L (3.6-5.0)
[2018-02-04] MEDS: NS IV 1000 ML 1,000 ML IV SCH ×2 (04:09→20:22)
[2018-02-04] MEDS: inSUlin ASPART (NovoLOG) 1 UNIT/0.01 ML (CHARGE PER UNIT) SQ SCH ×5 (04:13→20:20)
[2018-02-04 04:14] LABS: BAND NEUTROPHILS 5 %; LYMPHOCYTES % (MANUAL) 2 %; MONOCYTES % (MANUAL) 3 %; NEUTROPHILS % (MANUAL) 90 %
[2018-02-04 04:15] LABS: ANISOCYTOSIS SLIGHT
[2018-02-04] MEDS: POTASSIUM CL 10MEQ/50ML IVPB 50 ML IV SCH (04:19)
[2018-02-04] MEDS: KCL 20 MEQ TAB (K-DUR) PO SCH (04:20)
[2018-02-04] MEDS: MAGNESIUM 1 GM/100 ML IVPB 100 ML IV SCH (04:20)
[2018-02-04] MEDS: PANTOPRAZOLE 40 MG (PROTONIX) TAB PO SCH (06:05)
[2018-02-04] MEDS: KCL 8 MEQ (MICRO K) TABLET PO SCH ×2 (06:06→17:27)
[2018-02-04] MEDS: ENOXAPARIN 40 MG/0.4 ML (LOVENOX) SYR SQ SCH (08:14)
[2018-02-04] MEDS: AMIODARONE 200 MG (CORDARONE) TAB PO SCH (08:14)
[2018-02-04] MEDS: DIGOXIN 0.125 MG (LANOXIN) TAB PO SCH (08:14)
[2018-02-04] MEDS: FUROSEMIDE 40 MG (LASIX) TAB PO SCH ×2 (08:15→15:06)
[2018-02-04] MEDS: inSUlin DETERMIR 1 UNIT/0.01 ML (LEVEMIR) CHARGE PER UNIT SQ SCH (08:15)
[2018-02-04] MEDS: MEXILETINE 150 MG (MEXITIL) CAPSULE PO SCH ×4 (08:20→21:06)
[2018-02-04] MEDS ORDERED: NON-FORMULARY MEDICATION 1 EA EA (Esomeprazole Magnesium 40 MG) PO SCH (09:00)
[2018-02-04] MEDS ORDERED: NS IV 500 ML 500 ML ONE (10:05)
[2018-02-04] MEDS ORDERED: NS IV 1000 ML 1,000 ML IV SCH (10:15)
[2018-02-04] MEDS ORDERED: AMIO400T5 PO (10:28)
[2018-02-04] MEDS ORDERED: POTA8TAB6 PO (10:30)
--- NOTE | 2018-02-04 10:33 | Progress Note (SOAP) ---
ARGENIS CHEUNG A MEDICAL STUDENT 02/04/18 1033: Subjective Subjective/Events-last exam 77 year old male with Hx of CAD, HTN, HLD, CHF, COPD who was admitted for Sepsis , UTI, Right lower lobe PNA 2 days ago. Pt states he still feels about the same as he did when he was admitted. Pt is on 3L O2 by [place], Pt states he still feels like he has fever and chills. Denies abd pain, CP, cough Review of Systems Time Seen by Provider: 07:40 General: Chills, Fatigue Pulmonary: Dyspnea Cardiovascular: No: Chest Pain Gastrointestinal: No: Nausea, Vomiting, Abdominal Pain Focused Exam Lactate Level 02/02/18 19:28: Lactic Acid Level 2.66*H 02/02/18 21:36: Lactic Acid Level 2.17*H 02/04/18 09:39: Lactic Acid Level 3.51*H Lactic Acid Level Laboratory Tests Test 02/04/18 09:39 Lactic Acid Level 3.51 MMOL/L (0.50-2.00) *H Objective Exam Last Set of Vital Signs Vital Signs Date Time Temp Pulse Resp B/P (MAP) Pulse Ox O2 Delivery O2 Flow Rate FiO2 02/04/18 10:00 95 32 111/58 (75) 96 Nasal Cannula 3.00 02/04/18 03:39 96.7 02/03/18 08:00 35 Capillary Refill : Less Than 3 Seconds I&O Intake and Output 02/04/18 00:00 Intake Total 2745 ml Output Total 1375 ml Balance 1370 ml Intake Oral 1280 ml IV Total 1465 ml Output Urine Total 1375 ml General: Alert, Oriented X3, No Acute Distress HEENT: Atraumatic, EOMI Neck: Supple Lungs: Other (decreased breath sounds biltaterally, rales in bases, tachypneic) Heart: Regular Rate Abdomen: Normal Bowel Sounds, Soft, No Tenderness Extremities: No Edema Neuro: Normal Speech Psych/Mental Status: Mental Status NL Results/Procedures Lab Laboratory Tests 02/03/18 11:57: Glucometer 366H 02/03/18 14:51: Glucometer 239H 02/03/18 16:11: Glucometer 240H 02/03/18 19:58: Glucometer 253H 02/03/18 23:44: Glucometer 188H 02/04/18 03:30: White Blood Count 28.4H, Red Blood Count 4.13L, Hemoglobin 12.9L, Hematocrit 39L , Mean Corpuscular Volume 94, Mean Corpuscular Hemoglobin 31, Mean Corpuscular Hemoglobin Concent 33, Red Cell Distribution Width 16.1H, Platelet Count 175, Mean Platelet Volume 10.7H, Neutrophils (%) (Auto) 93H, Lymphocytes (%) (Auto) 2L, Monocytes (%) (Auto) 5, Eosinophils (%) (Auto) 0, Basophils (%) (Auto) 0, Neutrophils # (Auto) 26.4H, Lymphocytes # (Auto) 0.5L, Monocytes # (Auto) 1.5H, Eosinophils # (Auto) 0.0, Basophils # (Auto) 0.0, Neutrophils % (Manual) 90, Lymphocytes % (Manual) 2, Monocytes % (Manual) 3, Band Neutrophils 5, Anisocytosis SLIGHT, Sodium Level 137, Potassium Level 3.9, Chloride Level 103, Carbon Dioxide Level 22, Anion Gap 12, Blood Urea Nitrogen 29H, Creatinine 1.47H , Estimat Glomerular Filtration Rate 47, BUN/Creatinine Ratio 20, Glucose Level 221H, Calcium Level 9.1, Phosphorus Level 4.3, Magnesium Level 2.1 02/04/18 08:13: Glucometer 230H 02/04/18 09:39: Lactic Acid Level 3.51*H Microbiology 02/02/18 Blood Culture - Preliminary, Resulted Proteus mirabilis See Comments 02/02/18 Urine Culture - Preliminary, Resulted Proteus species See Comments Sent To [facility] Radiology Date of Exam: 02/02/18 CHEST 1 VIEW, AP/PA ONLY INDICATION: Chills x1-2 hours Frontal chest obtained at 7:40 p.m. and is compared with 01/04/18. There is post sternotomy change with cardiomegaly with unchanged pacemaker device. There is some infiltrate in the right infrahilar region which is new compared to the prior study. Left lung is grossly clear. There is no pneumothorax or gross pleural fluid. IMPRESSION: Cardiomegaly with postoperative changes. There is mild central vascular congestion. There is new infiltrate in the right lung base, pneumonia is not excluded. Followup is recommended. Assessment/Plan Assessment/Plan Assessment & Plan Sepsis likely secondary to UTI - pt WBC has increased from 16.2 --> 21.1 and today has increased to 28.9. Lactic acid was 2.66 on admission and dropped to 2.17 which has now increased to 3.5 UTI - pt has cultures that show GNR, Proteus, that is sensitive to Cefepime - continuing pt on Cefepime Abx IV due to sensitivity, D/C Levaquin due to resistance RLL PNA - RLL infiltrate noted on CXR, continuing pt on Cefepime Hyperglycemia - A1c results pending CAD - continuing on home meds: amiodarone, digoxin, mexiletine CHF - continuing on home meds - Furosemide Clinical Quality Measures DVT/VTE Risk/Contraindication: Risk Factor Score Per Nursin RFS Level Per Nursing on Admit: 4+=Very High Risk Score Comment: KENYATTA Tovar MD 02/04/18 1132: Assessment/Plan Assessment/Plan Assessment & Plan 1. Sepsis w/ bacteremia likely secondary to urinary source - Adm to ICU 02/02/18 - hypotension initially, responsive to IVF; holding BP meds 02/04 clinically improved with improved blood pressure and afebrile last 24 hours , renal function improved, WBC elevated but did receive steroids in ER, lactic acid elevated this am, will give 500 cc bolus and recheck 2. UTI - Blood cultures prelim show GNR; reviewed clinic records urine culture from showed P. Mirabilis w/ resistance to Levaquin but sensitive to Cefepime - started Cefepime and Levaquin 02/02/1802/04- culture with proteus resistant to fluoroquinolone, will continue cefepime and discontinue levofloxacin 3. R Lower Lobe Pneumonia - RLL infiltrated noted on CXR - Currently on Cefepime and Levaquin 02/04 d/c levofloxacin, respiratory status improved as noted below 4. Acute on Chronic Respiratory Failure - uses 3L oxygen at home; started on c-pap in ER due to work of breathing - breathing improved since admission - maintained sats w/o respiratory distress off c-pap - will DC and continue oxygen by [place]. 02/04 stable on nasal cannula, uses intermittently at home 5. Hyperglycemia w/o prior hx of DM - no hx of DM diagnosis; reviewed clinic records, last lab was 06/2017 - glucose was 101 - A1c pending - being treated w/ Novolog SSI; BS running 180-409 - pt received Solu-Medrol and Decadron in the ER which is likely exacerbating hyperglycemia - steroids DC as patient has no wheezing. - will start Levemir 10U in addition to SSI until A1c is back and longer-term treatment is determined. 6. CAD w/ hx of ventricular arrhythmia s/p defibrillator - resume home meds: amiodarone, Digoxin, Mexiletine 02/04 adjust amiodarone dose to match home dosing 7. CHF - continue home furosemide and KCl 8. Hypertension - will hold Metoprolol, Norvasc due to hypotension 9. JOAN - baseline Cr from 06/2017 0.97, GFR >60 - Cr 1.32 -->1.63; continue to monitor; IVF currently running at 60mL/h 02/04 improved this am, continue to monitor 10. Electrolyte abnormalities on admission - Phos low at 1.2 - will replace - Mag low at 1.7 - replaced 11. DVT ppx -SCDs, enoxaparin Supervisory-Addendum Brief Supervisory Addendum Patient seen and examined by me today, I repeated all the findings documented by [id number] and agree with documentation unless otherwise noted. See my assessment and plan. ARGENIS CHEUNG MEDICAL STUDENT Feb 04, 2018 10:33 KENYATTA TUTTLE MD Feb 04, 2018 11:32
[2018-02-04] MEDS ORDERED: AMIO200T4 PO ×2 (10:36)
[2018-02-04] MEDS ORDERED: ALBU2.5V4 NEB (10:36)
[2018-02-04] MEDS ORDERED: ALBU1.25 NEB (10:39)
--- NOTE | 2018-02-04 11:14 | Physician Query Clarification ---
PQ-Link Manifestation-Etiology Admission/Discharge Admission Date: Feb 02, 2018 at 20:15 Discharge Date: The medical record reflects the following clinical scenario: History/Risk Factors: Sepsis Acue on chronic respiratory failure Acute kidney injury Clinical Findings: Lactic acid 2.66 rising to 3.51. PH 7.44, pCO2 44, pO2 77, HCO3 29 on 4L pulse ox 97%. Creatinine 1.32 rising to 1.63. Treatment: IV fluids, inhalation therapy, IV Cefepime HCI, Nasal cannula, NIV CPAP. Question: Can you specify if the Acute on chronic respiratory failure and/ or Acute Kidney Injury is due to/associated with Sepsis? Please document a response below In responding to this query, please exercise your independent professional judgment. The purpose of this communication is to more accurately reflect the complexity of your patients condition. The fact that a question is asked does not imply that any particular answer is desired or expected. Thank you for your timely response to this clarification. Requestors name: Pinky Allen [facility] Phone # ext [phone] or [phone] THIS PHYSICIAN QUERY FORM IS A PERMANENT PART OF THE MEDICAL RECORD PINKY ALLEN Feb 04, 2018 11:14
[2018-02-04] MEDS: ACETAMINOPHEN 500 MG TAB (TYLENOL) PO PRN (15:07)
[2018-02-04] MEDS: CEFEPIME 2 GM/NS 50 ML IVPB IV SCH ×2 (20:19)
[2018-02-05] MEDS: NS IV 1000 ML 1,000 ML IV SCH ×2 (01:04→17:36)
[2018-02-05] MEDS: RT-ALBUTEROL/IPRATROPIUM 3 ML (DUONEB) VIAL INH SCH ×6 (02:17→22:22)
[2018-02-05 03:23] LABS: BASOPHILS % (AUTO) 0 % (0-10); EOSINOPHILS % (AUTO) 0 % (0-10); HEMATOCRIT 39 % (40-54); HEMOGLOBIN 13.4 G/DL (13.3-17.7); LYMPHOCYTES # (AUTO) 0.6 X 10^3 (1.0-4.0); LYMPHOCYTES % (AUTO) 3 % (12-44); MEAN CORPUSCULAR HEMOGLOBIN 32 PG (25-34); MEAN CORPUSCULAR HGB CONC 34 G/DL (32-36); MEAN CORPUSCULAR VOLUME 93 FL (80-99); MEAN PLATELET VOLUME 10.5 FL (7.4-10.4); MONOCYTES # (AUTO) 1.2 X 10^3 (0.0-1.0); MONOCYTES % (AUTO) 6 % (0-12); NEUTROPHILS # (AUTO) 17.2 X 10^3 (1.8-7.8); NEUTROPHILS % (AUTO) 91 % (42-75); PLATELET COUNT 148 10^3/uL (130-400); RED BLOOD COUNT 4.18 10^6/uL (4.35-5.85); RED CELL DISTRIBUTION WIDTH 16.5 % (10.0-14.5); WHITE BLOOD COUNT 18.9 10^3/uL (4.3-11.0)
[2018-02-05 03:40] LABS: CALCIUM 9.2 MG/DL (8.5-10.1); CREATININE SERUM 1.58 MG/DL (0.60-1.30); MAGNESIUM 2.1 MG/DL (1.8-2.4)
[2018-02-05] MEDS: inSUlin ASPART (NovoLOG) 1 UNIT/0.01 ML (CHARGE PER UNIT) SQ SCH ×3 (04:03→08:26)
[2018-02-05] MEDS: ACETAMINOPHEN 500 MG TAB (TYLENOL) PO PRN ×3 (04:04→23:33)
[2018-02-05] MEDS: KCL 8 MEQ (MICRO K) TABLET PO SCH ×2 (06:16→17:36)
[2018-02-05] MEDS: PANTOPRAZOLE 40 MG (PROTONIX) TAB PO SCH (06:16)
[2018-02-05 08:19] VITALS: BP 130/67
[2018-02-05] MEDS: inSUlin DETERMIR 1 UNIT/0.01 ML (LEVEMIR) CHARGE PER UNIT SQ SCH (08:45)
[2018-02-05] MEDS: DIGOXIN 0.125 MG (LANOXIN) TAB PO SCH (08:45)
[2018-02-05] MEDS: FUROSEMIDE 40 MG (LASIX) TAB PO SCH ×2 (08:45→17:36)
[2018-02-05] MEDS: AMIODARONE 200 MG (CORDARONE) TAB PO SCH (08:45)
[2018-02-05] MEDS: ENOXAPARIN 40 MG/0.4 ML (LOVENOX) SYR SQ SCH (08:45)
[2018-02-05] MEDS: MEXILETINE 150 MG (MEXITIL) CAPSULE PO SCH ×3 (08:45→20:22)
--- NOTE | 2018-02-05 11:16 | Progress Note (SOAP) ---
ARGENIS DEGROOT A MEDICAL STUDENT 02/05/18 1116: Subjective Subjective/Events-last exam Pt states he still feels about the same as yesterday and has no new complaints. Review of Systems Time Seen by Provider: 08:10 Focused Exam Lactate Level 02/02/18 21:36: Lactic Acid Level 2.17*H 02/04/18 09:39: Lactic Acid Level 3.51*H 02/04/18 11:50: Lactic Acid Level 1.84 Objective Exam Last Set of Vital Signs Vital Signs Date Time Temp Pulse Resp B/P (MAP) Pulse Ox O2 Delivery O2 Flow Rate FiO2 02/05/18 10:34 96 Nasal Cannula 3.00 02/05/18 08:19 98.9 98 18 130/67 (88) 02/03/18 08:00 35 Capillary Refill : Less Than 3 Seconds I&O Intake and Output 02/05/18 00:00 Intake Total 3340 ml Output Total 1675 ml Balance 1665 ml Intake Oral 1140 ml IV Total 2200 ml Output Urine Total 1675 ml General: Alert, Oriented X3 HEENT: Atraumatic Neck: Supple Lungs: Other (decreased airmovement) Heart: Regular Rate Extremities: No Edema Psych/Mental Status: Mental Status NL Results/Procedures Lab Laboratory Tests Test 02/03/18 11:57 02/03/18 14:51 02/03/18 16:11 02/03/18 19:58 Range/Units Glucometer 366 H 239 H 240 H 253 H 70-110 MG/DL Test 02/03/18 23:44 02/04/18 03:30 02/04/18 08:13 02/04/18 09:39 Range/Units Glucometer 188 H 230 H 70-110 MG/DL White Blood Count 28.4 H 4.3-11.0 10^3/uL Red Blood Count 4.13 L 4.35-5.85 10^6/uL Hemoglobin 12.9 L 13.3-17.7 G/DL Hematocrit 39 L 40-54 % Mean Corpuscular Volume 94 80-99 FL Mean Corpuscular Hemoglobin 31 25-34 PG Mean Corpuscular Hemoglobin Concent 33 32-36 G/DL Red Cell Distribution Width 16.1 H 10.0-14.5 % Platelet Count 175 130-400 10^3/uL Mean Platelet Volume 10.7 H 7.4-10.4 FL Neutrophils (%) (Auto) 93 H 42-75 % Lymphocytes (%) (Auto) 2 L 12-44 % Monocytes (%) (Auto) 5 0-12 % Eosinophils (%) (Auto) 0 0-10 % Basophils (%) (Auto) 0 0-10 % Neutrophils # (Auto) 26.4 H 1.8-7.8 X 10^3 Lymphocytes # (Auto) 0.5 L 1.0-4.0 X 10^3 Monocytes # (Auto) 1.5 H 0.0-1.0 X 10^3 Eosinophils # (Auto) 0.0 0.0-0.3 10^3/uL Basophils # (Auto) 0.0 0.0-0.1 10^3/uL Neutrophils % (Manual) 90 % Lymphocytes % (Manual) 2 % Monocytes % (Manual) 3 % Band Neutrophils 5 % Anisocytosis SLIGHT Sodium Level 137 135-145 MMOL/L Potassium Level 3.9 3.6-5.0 MMOL/L Chloride Level 103 98-107 MMOL/L Carbon Dioxide Level 22 21-32 MMOL/L Anion Gap 12 5-14 MMOL/L Blood Urea Nitrogen 29 H 7-18 MG/DL Creatinine 1.47 H 0.60-1.30 MG/DL Estimat Glomerular Filtration Rate 47 BUN/Creatinine Ratio 20 Glucose Level 221 H 70-105 MG/DL Calcium Level 9.1 8.5-10.1 MG/DL Phosphorus Level 4.3 2.3-4.7 MG/DL Magnesium Level 2.1 1.8-2.4 MG/DL Lactic Acid Level 3.51 *H 0.50-2.00 MMOL/L Test 02/04/18 11:50 02/04/18 12:05 02/04/18 15:47 02/04/18 19:53 Range/Units Lactic Acid Level 1.84 0.50-2.00 MMOL/L Glucometer 232 H 143 H 207 H 70-110 MG/DL Test 02/04/18 23:53 02/05/18 03:15 02/05/18 04:02 02/05/18 08:10 Range/Units Glucometer 140 H 147 H 151 H 70-110 MG/DL White Blood Count 18.9 H 4.3-11.0 10^3/uL Red Blood Count 4.18 L 4.35-5.85 10^6/uL Hemoglobin 13.4 13.3-17.7 G/DL Hematocrit 39 L 40-54 % Mean Corpuscular Volume 93 80-99 FL Mean Corpuscular Hemoglobin 32 25-34 PG Mean Corpuscular Hemoglobin Concent 34 32-36 G/DL Red Cell Distribution Width 16.5 H 10.0-14.5 % Platelet Count 148 130-400 10^3/uL Mean Platelet Volume 10.5 H 7.4-10.4 FL Neutrophils (%) (Auto) 91 H 42-75 % Lymphocytes (%) (Auto) 3 L 12-44 % Monocytes (%) (Auto) 6 0-12 % Eosinophils (%) (Auto) 0 0-10 % Basophils (%) (Auto) 0 0-10 % Neutrophils # (Auto) 17.2 H 1.8-7.8 X 10^3 Lymphocytes # (Auto) 0.6 L 1.0-4.0 X 10^3 Monocytes # (Auto) 1.2 H 0.0-1.0 X 10^3 Eosinophils # (Auto) 0.0 0.0-0.3 10^3/uL Basophils # (Auto) 0.0 0.0-0.1 10^3/uL Sodium Level 140 135-145 MMOL/L Potassium Level 4.0 3.6-5.0 MMOL/L Chloride Level 105 98-107 MMOL/L Carbon Dioxide Level 26 21-32 MMOL/L Anion Gap 9 5-14 MMOL/L Blood Urea Nitrogen 34 H 7-18 MG/DL Creatinine 1.58 H 0.60-1.30 MG/DL Estimat Glomerular Filtration Rate 43 BUN/Creatinine Ratio 22 Glucose Level 146 H 70-105 MG/DL Calcium Level 9.2 8.5-10.1 MG/DL Phosphorus Level 3.0 2.3-4.7 MG/DL Magnesium Level 2.1 1.8-2.4 MG/DL Radiology Date of Exam: 02/02/18 CHEST 1 VIEW, AP/PA ONLY INDICATION: Chills x1-2 hours Frontal chest obtained at 7:40 p.m. and is compared with 01/04/18. There is post sternotomy change with cardiomegaly with unchanged pacemaker device. There is some infiltrate in the right infrahilar region which is new compared to the prior study. Left lung is grossly clear. There is no pneumothorax or gross pleural fluid. IMPRESSION: Cardiomegaly with postoperative changes. There is mild central vascular congestion. There is new infiltrate in the right lung base, pneumonia is not excluded. Followup is recommended. Assessment/Plan Assessment/Plan Assessment & Plan 1. Sepsis w/ bacteremia likely secondary to urinary source - Adm to ICU 02/02/18 - hypotension initially, responsive to IVF; holding BP meds 02/04 clinically improved with improved blood pressure and afebrile last 24 hours , renal function improved, WBC elevated but did receive steroids in ER, lactic acid elevated this am, will give 500 cc bolus and recheck 02/05 Pt remained afebrile and WBC decreased to 18.9, lactic acid is normal 2. UTI - Blood cultures prelim show GNR; reviewed clinic records urine culture from showed P. Mirabilis w/ resistance to Levaquin but sensitive to Cefepime - started Cefepime and Levaquin 02/02/1802/04- culture with proteus resistant to fluoroquinolone, will continue cefepime and discontinue levofloxacin 02/05 - will continue pt on cefepime 3. R Lower Lobe Pneumonia - RLL infiltrated noted on CXR - Currently on Cefepime and Levaquin 02/04 d/c levofloxacin, respiratory status improved as noted below 4. Acute on Chronic Respiratory Failure - uses 3L oxygen at home; started on c-pap in ER due to work of breathing - breathing improved since admission - maintained sats w/o respiratory distress off c-pap - will DC and continue oxygen by [place]. 02/04 stable on nasal cannula, uses intermittently at home 02/05 pt stable on 2.5L [place] 5. Hyperglycemia w/o prior hx of DM - no hx of DM diagnosis; reviewed clinic records, last lab was 06/2017 - glucose was 101 - A1c pending - being treated w/ Novolog SSI; BS running 180-409 - pt received Solu-Medrol and Decadron in the ER which is likely exacerbating hyperglycemia - steroids DC as patient has no wheezing. - will start Levemir 10U in addition to SSI until A1c is back and longer-term treatment is determined. 02/05 Pts A1c is 6.2 6. CAD w/ hx of ventricular arrhythmia s/p defibrillator - resume home meds: amiodarone, Digoxin, Mexiletine 02/04 adjust amiodarone dose to match home dosing 7. CHF - continue home furosemide and KCl 8. Hypertension - will hold Metoprolol, Norvasc due to hypotension 9. JOAN - baseline Cr from 06/2017 0.97, GFR >60 - Cr 1.32 -->1.63; continue to monitor; IVF currently running at 60mL/h 02/04 improved this am, continue to monitor 02/05 pt's Creat increased from 1.47 --> 1.58 10. Electrolyte abnormalities on admission - Phos low at 1.2 - will replace - Mag low at 1.7 - replaced 02/05 - Phos now at 3, Mag at 2.1 11. DVT ppx -SCDs, enoxaparin Clinical Quality Measures DVT/VTE Risk/Contraindication: Risk Factor Score Per Nursin RFS Level Per Nursing on Admit: 4+=Very High Risk Score Comment: KENYATTA Tovar MD 02/05/18 1132: Supervisory-Addendum Brief Supervisory Addendum I personally saw and examined this patient today and agree with all documentation by YAYO Degroot, unless otherwise noted. ARGENIS DEGROOT MEDICAL STUDENT Feb 05, 2018 11:16 KENYATTA TUTTLE MD Feb 05, 2018 11:32
[2018-02-05 12:00] VITALS: BP 151/73
[2018-02-05] MEDS: inSUlin ASPART (NovoLOG) 1 UNIT/0.01 ML (CHARGE PER UNIT) SC SCH ×3 (13:17→20:25)
--- NOTE | 2018-02-05 15:09 | Physical Therapy Evaluation ---
PT Evaluation-General Medical Diagnosis Admission Date Feb 02, 2018 at 20:15 Medical Diagnosis: respiratory failure/sepsis Onset Date: Feb 02, 2018 Therapy Diagnosis Therapy Diagnosis: generalized weakness Height/Weight Height (Feet): 5 Height (Inches): 5.00 Weight (Pounds): 208 Weight (Ounces): 6.0 Precautions Precautions/Isolations: Fall Prevention, Standard Precautions Weight Bear Status Right Lower Extremity: Right Full Weight Bearing Left Lower Extremity: Left Full Weight Bearing Referral Physician: Charanjit Reason for Referral: Evaluation/Treatment Medical History Pertinent Medical History: Atrial Fib, Arthritis, CABG, CAD, COPD, Dementia, GERD, ID, Neuropathy Current History EMS due to chills Reviewed History: Yes Social History Home: Apartment Current Living Status: Spouse Entry Into Home: Level Entry Prior/Core FIM Prior Level of Function Functional [place] Measure 0=Not Assessed/NA 4=Minimal Assistance 1=Total Assistance 5=Supervision or Setup 2=Maximal Assistance 6=Modified [place] 3=Moderate Assistance 7=Complete [place] Bed Mobility: 6 Transfers (B,C,W/C) (FIM): 6 Gait: 6 utilizes w/c for distances PT Evaluation-Current Subjective Patient is very agreeable to participate with PT. Spouse present and answers all questions presented to patient. Pain Numeric Pain Scale: 0-No Pain Location: No Pain Reported Objective Patient Orientation: Confused Problem Solving: Poor Attachments: Oxygen, Kendall Catheter, IV ROM/Strength ROM Lower Extremities bilateral LE WNL Strength Lower Extremities 3/5 grossly bilaterally Integumentary/Posture Integumentary refer to nursing notes Bladder Incontinence: Kendall Cath Posture kyphotic Neuromuscular (Tone, Coordination, Reflexes) diminished coordination due to inactivity PLOF Sensory Vision: Functional Hearing: Impaired Sensation Right Lower Extremit: Impaired Sensation Left Lower Extremity: Impaired Transfers Functional [place] Measure 0=Not Assessed/NA 4=Minimal Assistance 1=Total Assistance 5=Supervision or Setup 2=Maximal Assistance 6=Modified [place] 3=Moderate Assistance 7=Complete [place] Transfers (B, C, W/C) (FIM): 3 Scootin Rollin Supine to/from Sit: 3 Gait Mode of Locomotion: Both Anticipated Mode of Locomotion: Both Gait (FIM): 2 Distance (FIM): 9=887-71 ft Distance: 90' Gait Level of Assist: 3 Gait Persons Needed: 2 Gait Assistive Device: FWW Comments/Gait Description SBA of 1 for O2 tank and IV pole/mod assist with patient. Balance Sitting Static: Normal Sitting Dynamic: Normal Standing Static: Fair Standing Dynamic: Fair Assessment/Needs 77 y.o. male, will benefit from skilled PT to address functional strength and mobility to improve current LOF and to safely return to home with spouse and home health intervention. Rehab Potential: Fair PT Display Specialist Goals Display Specialist Goals PT Half-Way Goals Time Frame: Feb 15, 2018 Transfers (B,C,W/C) (FIM): 5 Gait (FIM): 2 Gait distance (FIM): 5=230-92 ft Distance: 125' Gait Level of Assist: 5 Gait Assistive Device: FWW PT Plan Problem List Problem List: Activity Tolerance, Functional Strength, Safety, Balance, Gait, Transfer, Bed Mobility Treatment/Plan Treatment Plan: Continue Plan of Care Treatment Plan: Bed Mobility, Education, Functional Activity [place], Functional Strength, Gait, Safety, Therapeutic Exercise, Transfers Treatment Duration: Feb 15, 2018 Frequency: 6 times per week Estimated Hrs Per Day: .25 hour per day Patient and/or Family Agrees t: Yes Discharge Recommendations Therapy D/C Recommendations: Home w/ Family Support, Physical Therapy Home Care Time/GCodes Time In: 1416 Time Out: 1426 Total Billed Treatment Time: 10 Total Billed Treatment 1 visit EVModC 10 min G Codes Necessary: SIGRID Knowles PT Feb 05, 2018 15:09
[2018-02-05 15:54] VITALS: BP 137/63
[2018-02-05 20:03] VITALS: BP 131/63
[2018-02-05] MEDS: CEFEPIME 2 GM/NS 50 ML IVPB IV SCH ×2 (20:23)
[2018-02-06 00:02] VITALS: BP 133/74
[2018-02-06] MEDS: RT-ALBUTEROL/IPRATROPIUM 3 ML (DUONEB) VIAL INH SCH ×3 (02:32→18:48)
[2018-02-06] MEDS: inSUlin ASPART (NovoLOG) 1 UNIT/0.01 ML (CHARGE PER UNIT) SC SCH ×4 (05:38→20:40)
[2018-02-06] MEDS: ACETAMINOPHEN 500 MG TAB (TYLENOL) PO PRN ×2 (05:48→21:56)
[2018-02-06] MEDS: KCL 8 MEQ (MICRO K) TABLET PO SCH ×2 (05:48→16:46)
[2018-02-06] MEDS: PANTOPRAZOLE 40 MG (PROTONIX) TAB PO SCH (05:48)
[2018-02-06 06:15] LABS: HEMOGLOBIN 12.1 G/DL (13.3-17.7); MEAN PLATELET VOLUME 11.4 FL (7.4-10.4); RED BLOOD COUNT 3.88 10^6/uL (4.35-5.85); RED CELL DISTRIBUTION WIDTH 16.6 % (10.0-14.5)
[2018-02-06 06:30] LABS: CALCIUM 8.9 MG/DL (8.5-10.1); CREATININE SERUM 1.44 MG/DL (0.60-1.30); POTASSIUM 3.9 MMOL/L (3.6-5.0)
[2018-02-06 07:44] VITALS: BP 120/60
[2018-02-06] MEDS: inSUlin DETERMIR 1 UNIT/0.01 ML (LEVEMIR) CHARGE PER UNIT SQ SCH (08:06)
[2018-02-06] MEDS: DIGOXIN 0.125 MG (LANOXIN) TAB PO SCH (08:06)
[2018-02-06] MEDS: MEXILETINE 150 MG (MEXITIL) CAPSULE PO SCH ×3 (08:06→20:41)
[2018-02-06] MEDS: FUROSEMIDE 40 MG (LASIX) TAB PO SCH ×2 (08:06→14:35)
[2018-02-06] MEDS: AMIODARONE 200 MG (CORDARONE) TAB PO SCH (08:06)
[2018-02-06] MEDS: ENOXAPARIN 40 MG/0.4 ML (LOVENOX) SYR SQ SCH ×2 (08:07→11:05)
--- NOTE | 2018-02-06 08:56 | Physical Therapy Daily Note ---
PT Daily Note-Current Subjective Patient in recliner pre tx, reluctantly agrees to PT, has no complaints of pain. Appearance Patient in recliner post tx with nurse call, phone, tray, all needs met. in room. Mental Status Patient Orientation: Person, Place Attachments: Oxygen, IV Transfers Functional [place] Measure 0=Not Assessed/NA 4=Minimal Assistance 1=Total Assistance 5=Supervision or Setup 2=Maximal Assistance 6=Modified [place] 3=Moderate Assistance 7=Complete IndependenceIRFPAI Quality Coding Scale 6 Independent with activity with or without an assistive device 5 Patient requires set up or clean up by helper. Patient completes activity by themselves 4 Supervision or touching assist (CGA). [place] provide cues , steadying assist 3 The helper provides less than half the effort to complete the activity 2 The helper provides more than half the effort to complete the activity 1 Dependent. The helper does all the effort to complete an activity 7 Patient refused to complete or attempt activity 9 The patient did not perform the activity before the current illness or injury 88 Not attempted due to Medical conditions or safety concerns Transfers (B, C, W/C) (FIM): 4 Sit to/from Stand: 4 Bed to/from Chair: 4 Patient performs sit to stand and stand pivot with CGA/Divya. Cues for safety and hand placement. Weight Bearing Right Lower Extremity: Right Full Weight Bearing Left Lower Extremity: Left Full Weight Bearing Gait Training Gait (FIM): 2 Distance: 100' Gait Level of Assist: 4 Gait Persons Needed: 1 Gait Assistive Device: FWW Patient ambulates very slowly and takes very small steps, poor foot clearance and heel strike. Exercises Seated Therapy Exercises: Ankle pumps, Long arc quads Seated Reps: 15 Treatments transfers, ambulation, AROM Assessment Current Status: Fair Progress Patient required less assistance for mobility than yesterday but patient still has poor endurance and was very fatigued after walking. PT Travelift Operator Goals Shelter Goals PT Travelift Operator Goals Time Frame: Feb 15, 2018 Transfers (B,C,W/C) (FIM): 5 Gait (FIM): 2 Gait distance (FIM): 1=800-78 ft Distance: 125' Gait Level of Assist: 5 Gait Assistive Device: FWW PT Plan Problem List Problem List: Activity Tolerance, Functional Strength, Safety, Balance, Gait, Transfer, Bed Mobility, ROM Treatment/Plan Treatment Plan: Continue Plan of Care Treatment Plan: Bed Mobility, Education, Functional Activity [place], Functional Strength, Gait, Safety, Therapeutic Exercise, Transfers Treatment Duration: Feb 15, 2018 Frequency: 6 times per week Estimated Hrs Per Day: .25 hour per day Patient and/or Family Agrees t: Yes Safety Risks/Education Patient Education: Gait Training, Transfer Techniques, Correct Positioning, Safety Issues Teaching Recipient: Patient Teaching Methods: Demonstration, Discussion Response to Teaching: Reinforcement Needed Time/GCodes Time In: 08 Time Out: 0849 Total Billed Treatment Time: 22 Total Billed Treatment 1 visit GT 22' GODWIN CANDELARIO PT Feb 06, 2018 08:56
[2018-02-06] MEDS: NS IV 1000 ML 1,000 ML IV SCH (11:06)
[2018-02-06 12:00] VITALS: BP 138/64
--- NOTE | 2018-02-06 13:38 | Progress Note (SOAP) ---
ARGENIS DEGROOT A MEDICAL STUDENT 02/06/18 1:38pm: Subjective Subjective/Events-last exam Pt states feeling slightly improved since yesterday. Focused Exam Lactate Level 02/04/18 09:39: Lactic Acid Level 3.51*H 02/04/18 11:50: Lactic Acid Level 1.84 Objective Exam Last Set of Vital Signs Vital Signs Date Time Temp Pulse Resp B/P (MAP) Pulse Ox O2 Delivery O2 Flow Rate FiO2 02/06/18 12:00 98.6 88 18 138/64 (88) 96 Nasal Cannula 2.00 02/06/18 06:35 28 Capillary Refill : Less Than 3 Seconds I&O Intake and Output 02/06/18 00:00 Intake Total 4310 ml Output Total 2150 ml Balance 2160 ml Intake Oral 2260 ml IV Total 2050 ml Output Urine Total 2150 ml General: Alert, Oriented X3 HEENT: Atraumatic Lungs: Other (decreased air movement) Heart: Regular Rate Extremities: No Edema Neuro: Normal Speech Psych/Mental Status: Mental Status NL Results/Procedures Lab Laboratory Tests Test 02/04/18 15:47 02/04/18 19:53 02/04/18 23:53 02/05/18 03:15 Range/Units Glucometer 143 H 207 H 140 H 70-110 MG/DL White Blood Count 18.9 H 4.3-11.0 10^3/uL Red Blood Count 4.18 L 4.35-5.85 10^6/uL Hemoglobin 13.4 13.3-17.7 G/DL Hematocrit 39 L 40-54 % Mean Corpuscular Volume 93 80-99 FL Mean Corpuscular Hemoglobin 32 25-34 PG Mean Corpuscular Hemoglobin Concent 34 32-36 G/DL Red Cell Distribution Width 16.5 H 10.0-14.5 % Platelet Count 148 130-400 10^3/uL Mean Platelet Volume 10.5 H 7.4-10.4 FL Neutrophils (%) (Auto) 91 H 42-75 % Lymphocytes (%) (Auto) 3 L 12-44 % Monocytes (%) (Auto) 6 0-12 % Eosinophils (%) (Auto) 0 0-10 % Basophils (%) (Auto) 0 0-10 % Neutrophils # (Auto) 17.2 H 1.8-7.8 X 10^3 Lymphocytes # (Auto) 0.6 L 1.0-4.0 X 10^3 Monocytes # (Auto) 1.2 H 0.0-1.0 X 10^3 Eosinophils # (Auto) 0.0 0.0-0.3 10^3/uL Basophils # (Auto) 0.0 0.0-0.1 10^3/uL Sodium Level 140 135-145 MMOL/L Potassium Level 4.0 3.6-5.0 MMOL/L Chloride Level 105 98-107 MMOL/L Carbon Dioxide Level 26 21-32 MMOL/L Anion Gap 9 5-14 MMOL/L Blood Urea Nitrogen 34 H 7-18 MG/DL Creatinine 1.58 H 0.60-1.30 MG/DL Estimat Glomerular Filtration Rate 43 BUN/Creatinine Ratio 22 Glucose Level 146 H 70-105 MG/DL Calcium Level 9.2 8.5-10.1 MG/DL Phosphorus Level 3.0 2.3-4.7 MG/DL Magnesium Level 2.1 1.8-2.4 MG/DL Test 02/05/18 04:02 02/05/18 08:10 02/05/18 11:47 02/05/18 15:58 Range/Units Glucometer 147 H 151 H 222 H 120 H 70-110 MG/DL Test 02/05/18 20:17 02/06/18 05:16 02/06/18 05:22 02/06/18 10:44 Range/Units Glucometer 201 H 138 H 152 H 70-110 MG/DL White Blood Count 14.0 H 4.3-11.0 10^3/uL Red Blood Count 3.88 L 4.35-5.85 10^6/uL Hemoglobin 12.1 L 13.3-17.7 G/DL Hematocrit 36 L 40-54 % Mean Corpuscular Volume 94 80-99 FL Mean Corpuscular Hemoglobin 31 25-34 PG Mean Corpuscular Hemoglobin Concent 33 32-36 G/DL Red Cell Distribution Width 16.6 H 10.0-14.5 % Platelet Count 120 L 130-400 10^3/uL Mean Platelet Volume 11.4 H 7.4-10.4 FL Sodium Level 139 135-145 MMOL/L Potassium Level 3.9 3.6-5.0 MMOL/L Chloride Level 106 98-107 MMOL/L Carbon Dioxide Level 24 21-32 MMOL/L Anion Gap 9 5-14 MMOL/L Blood Urea Nitrogen 28 H 7-18 MG/DL Creatinine 1.44 H 0.60-1.30 MG/DL Estimat Glomerular Filtration Rate 48 BUN/Creatinine Ratio 19 Glucose Level 125 H 70-105 MG/DL Calcium Level 8.9 8.5-10.1 MG/DL Laboratory Tests 02/05/18 15:58: Glucometer 120H 02/05/18 20:17: Glucometer 201H 02/06/18 05:16: Glucometer 138H 02/06/18 05:22: White Blood Count 14.0H, Red Blood Count 3.88L, Hemoglobin 12.1L, Hematocrit 36L , Mean Corpuscular Volume 94, Mean Corpuscular Hemoglobin 31, Mean Corpuscular Hemoglobin Concent 33, Red Cell Distribution Width 16.6H, Platelet Count 120L, Mean Platelet Volume 11.4H, Sodium Level 139, Potassium Level 3.9, Chloride Level 106, Carbon Dioxide Level 24, Anion Gap 9, Blood Urea Nitrogen 28H, Creatinine 1.44H, Estimat Glomerular Filtration Rate 48, BUN/Creatinine Ratio 19 , Glucose Level 125H, Calcium Level 8.9 02/06/18 10:44: Glucometer 152H Microbiology 02/02/18 Blood Culture - Preliminary, Resulted Proteus mirabilis See Comments 02/02/18 Urine Culture - Final, Complete Proteus mirabilis See Comments Sent To [facility] Date of Exam: 02/02/18 CHEST 1 VIEW, AP/PA ONLY INDICATION: Chills x1-2 hours Frontal chest obtained at 7:40 p.m. and is compared with 01/04/18. There is post sternotomy change with cardiomegaly with unchanged pacemaker device. There is some infiltrate in the right infrahilar region which is new compared to the prior study. Left lung is grossly clear. There is no pneumothorax or gross pleural fluid. IMPRESSION: Cardiomegaly with postoperative changes. There is mild central vascular congestion. There is new infiltrate in the right lung base, pneumonia is not excluded. Followup is recommended. CHEST 1 VIEW, AP/PA ONLY EXAM: Portable erect AP chest at 3:22 INDICATION: Respiratory distress When compared to the prior exam of 02/02/2018, there does not appear to have been any significant change. The heart is stable in size. There is still mild pulmonary congestion. There is a small amount of atelectasis/infiltrate and fluid partially obscuring the right lung base. The mediastinum is not widened. The osseous structures are intact. The left-sided pacemaker seen previously is again evident and no different. IMPRESSION: Stable chest. There has been no adverse change since the prior exam. Assessment/Plan Assessment/Plan Admission Status: Inpatient Order (span 2 midnights) Assessment & Plan 1. Sepsis w/ bacteremia likely secondary to urinary source - Adm to ICU 02/02/18 - hypotension initially, responsive to IVF; holding BP meds 02/04 clinically improved with improved blood pressure and afebrile last 24 hours , renal function improved, WBC elevated but did receive steroids in ER, lactic acid elevated this am, will give 500 cc bolus and recheck 02/05 Pt remained afebrile and WBC decreased to 18.9, lactic acid is normal 02/06 pt had temperature of 100.0F during the last 24 hours, will continue IV abx and consider transitioning pt to swing 2. UTI - Blood cultures prelim show GNR; reviewed clinic records urine culture from showed P. Mirabilis w/ resistance to Levaquin but sensitive to Cefepime - started Cefepime and Levaquin 02/02/1802/04- culture with proteus resistant to fluoroquinolone, will continue cefepime and discontinue levofloxacin 02/05 - will continue pt on cefepime 3. R Lower Lobe Pneumonia - RLL infiltrated noted on CXR - Currently on Cefepime and Levaquin 02/04 d/c levofloxacin, respiratory status improved as noted below 4. Acute on Chronic Respiratory Failure - uses 3L oxygen at home; started on c-pap in ER due to work of breathing - breathing improved since admission - maintained sats w/o respiratory distress off c-pap - will DC and continue oxygen by NC. 02/04 stable on nasal cannula, uses intermittently at home 02/05 pt stable on 2.5L NC 5. Hyperglycemia w/o prior hx of DM - no hx of DM diagnosis; reviewed clinic records, last lab was 06/2017 - glucose was 101 - A1c pending - being treated w/ Novolog SSI; BS running 180-409 - pt received Solu-Medrol and Decadron in the ER which is likely exacerbating hyperglycemia - steroids DC as patient has no wheezing. - will start Levemir 10U in addition to SSI until A1c is back and longer-term treatment is determined. 02/05 Pts A1c is 6.2 6. CAD w/ hx of ventricular arrhythmia s/p defibrillator - resume home meds: amiodarone, Digoxin, Mexiletine 02/04 adjust amiodarone dose to match home dosing 7. CHF - continue home furosemide and KCl 8. Hypertension - will hold Metoprolol, Norvasc due to hypotension 9. JOAN - baseline Cr from 06/2017 0.97, GFR >60 - Cr 1.32 -->1.63; continue to monitor; IVF currently running at 60mL/h 02/04 improved this am, continue to monitor 02/05 pt's Creat increased from 1.47 --> 1.58 02/06 pt's creat decreased from 1.58--> 1.44 10. Electrolyte abnormalities on admission - Phos low at 1.2 - will replace - Mag low at 1.7 - replaced 02/05 - Phos now at 3, Mag at 2.1 11. DVT ppx -SCDs, enoxaparin Clinical Quality Measures DVT/VTE Risk/Contraindication: Risk Factor Score Per Nursin RFS Level Per Nursing on Admit: 4+=Very High Risk Score Comment: KENYATTA Tovar MD 02/06/18 2:36pm: Subjective Review of Systems Date Seen by Provider: Feb 06, 2018 Time Seen by Provider: 10:50 Supervisory-Addendum Brief Supervisory Addendum Patient seen and examined by me and assessment and plan directed by me, agree with documentation by YAYO Degroot unless otherwise noted. ARGENIS DEGROOT MEDICAL STUDENT Feb 06, 2018 1:38 pm KNEYATTA TUTTLE MD Feb 06, 2018 2:36 pm
[2018-02-06 15:45] VITALS: BP 171/79
[2018-02-06] MEDS: CEFEPIME 2 GM/NS 50 ML IVPB IV SCH ×2 (20:44)
[2018-02-06] MEDS ORDERED: AMIODARONE 200 MG (CORDARONE) TAB PO SCH (21:00)
[2018-02-07] VITALS: BP 167/79
[2018-02-07] MEDS: inSUlin ASPART (NovoLOG) 1 UNIT/0.01 ML (CHARGE PER UNIT) SC SCH (05:37)
[2018-02-07] MEDS: KCL 8 MEQ (MICRO K) TABLET PO SCH (06:08)
[2018-02-07] MEDS: PANTOPRAZOLE 40 MG (PROTONIX) TAB PO SCH (06:08)
[2018-02-07] MEDS: RT-ALBUTEROL/IPRATROPIUM 3 ML (DUONEB) VIAL INH SCH (06:42)
[2018-02-07 06:43] LABS: HEMOGLOBIN 12.2 G/DL (13.3-17.7); MEAN PLATELET VOLUME 10.8 FL (7.4-10.4); RED BLOOD COUNT 3.86 10^6/uL (4.35-5.85); RED CELL DISTRIBUTION WIDTH 16.2 % (10.0-14.5)
[2018-02-07 06:45] LABS: CALCIUM 8.9 MG/DL (8.5-10.1); CREATININE SERUM 1.44 MG/DL (0.60-1.30); POTASSIUM 3.7 MMOL/L (3.6-5.0)
[2018-02-07] MEDS: MEXILETINE 150 MG (MEXITIL) CAPSULE PO SCH (08:46)
[2018-02-07] MEDS: AMIODARONE 200 MG (CORDARONE) TAB PO SCH (08:46)
[2018-02-07] MEDS: DIGOXIN 0.125 MG (LANOXIN) TAB PO SCH (08:46)
[2018-02-07] MEDS: FUROSEMIDE 40 MG (LASIX) TAB PO SCH (08:46)
[2018-02-07] MEDS ORDERED: meTOprolol TARTRATE 25 MG (LOPRESSOR) TABLET PO SCH (09:00)
[2018-02-07] MEDS: inSUlin DETERMIR 1 UNIT/0.01 ML (LEVEMIR) CHARGE PER UNIT SQ SCH (09:44)
--- NOTE | 2018-02-07 11:31 | Discharge Summary ---
Diagnosis/Chief Complaint Date of Admission Feb 02, 2018 at 20:15 Date of Discharge Feb 07, 2018 at 09:43 Admission Diagnosis Admission Diagnosis 1. Sepsis 2. UTI 3. R Lower Lobe Pneumonia 4. Acute on Chronic Respiratory Failure 5. Hyperglycemia w/o prior hx of DM Discharge Diagnosis 1. Sepsis w/ bacteremia likely secondary to urinary source - Adm to ICU 02/02/18 - hypotension initially, responsive to IVF; holding BP meds 02/04 clinically improved with improved blood pressure and afebrile last 24 hours , renal function improved, WBC elevated but did receive steroids in ER, lactic acid elevated this am, will give 500 cc bolus and recheck 02/05 Pt remained afebrile and WBC decreased to 18.9, lactic acid is normal 02/06 pt had temperature of 100.0F during the last 24 hours, will continue IV abx and consider transitioning pt to swing 02/07 discharged to swing to complete 7 day course of IV antibiotics and continue PT 2. UTI - Blood cultures prelim show GNR; reviewed clinic records urine culture from showed P. Mirabilis w/ resistance to Levaquin but sensitive to Cefepime - started Cefepime and Levaquin 02/02/1802/04- culture with proteus resistant to fluoroquinolone, will continue cefepime and discontinue levofloxacin 02/05 - will continue pt on cefepime 3. R Lower Lobe Pneumonia - RLL infiltrated noted on CXR - Currently on Cefepime and Levaquin 02/04 d/c levofloxacin, respiratory status improved as noted below 4. Acute on Chronic Respiratory Failure - uses 3L oxygen at home; started on c-pap in ER due to work of breathing - breathing improved since admission - maintained sats w/o respiratory distress off c-pap - will DC and continue oxygen by NC. 02/04 stable on nasal cannula, uses intermittently at home 02/05 pt stable on 2.5L NC 5. Hyperglycemia w/o prior hx of DM - no hx of DM diagnosis; reviewed clinic records, last lab was 06/2017 - glucose was 101 - A1c pending - being treated w/ Novolog SSI; BS running 180-409 - pt received Solu-Medrol and Decadron in the ER which is likely exacerbating hyperglycemia - steroids DC as patient has no wheezing. - will start Levemir 10U in addition to SSI until A1c is back and longer-term treatment is determined. 02/05 Pts A1c is 6.2 6. CAD w/ hx of ventricular arrhythmia s/p defibrillator - resume home meds: amiodarone, Digoxin, Mexiletine 02/04 adjusted amiodarone dose to match home dosing 7. CHF - continue home furosemide and KCl 8. Hypertension - will hold Metoprolol, Norvasc due to hypotension 02/07 hypertensive, resumed metoprolol, anticipate will need to resume amlodipine soon as well 9. JOAN - baseline Cr from 06/2017 0.97, GFR >60 - Cr 1.32 -->1.63; continue to monitor; IVF currently running at 60mL/h 02/04 improved this am, continue to monitor 02/05 pt's Creat increased from 1.47 --> 1.58 02/06 pt's creat decreased from 1.58--> 1.44 02/07 creatinine stable at 1.44, IVF discontinued with good intake and increasing blood pressure 10. Electrolyte abnormalities on admission - Phos low at 1.2 - will replace - Mag low at 1.7 - replaced 02/05 - Phos now at 3, Mag at 2.1 Chief Complaint/HPI Chief Complaint/HPI This is a 77yo male, patient of Dr. Gonzalez'amirah who presented to ER w/ c/o feeling weak and fatigued for the past week. Pt denies significant dyspnea though he was noted to be in respiratory distress in the ER. Pt reports he had some burning with urination this past week. Unsure if he has had a fever. Denies cough or increased sputum production, denies CP or abdominal pain. Discharge Summary-Simple/Stand Consultations Discharge Physical Examination Allergies: Coded Allergies: Penicillins (Verified Allergy, Severe, HIVES, SOB, 01/04/18) codeine (Verified Allergy, Severe, SOB, HIVES, 01/04/18) Vitals & I&Os Vital Sign - Last 12Hours Date Time Temp Pulse Resp B/P (MAP) Pulse Ox O2 Delivery O2 Flow Rate FiO2 02/07/18 07:47 Nasal Cannula 2.00 02/07/18 07:00 82 02/07/18 06:43 95 02/07/18 00:00 98.6 20 167/79 (108) 02/06/18 06:35 28 Intake and Output 7/12/18 00:00 Intake Total 1850 ml Output Total 600 ml Balance 1250 ml General Appearance: Alert, No Acute Distress Respiratory: Clear to Auscultation, Normal Air Movement Cardiovascular: Regular Rate, No Murmurs Extremities: Other (trace edema, venous stasis dermatitis) Neuro: Normal Speech Psych/Mental Status: Mental Status NL Hospital Course See final discharge diagnosis. Labs Laboratory Tests Test 02/05/18 11:47 02/05/18 15:58 02/05/18 20:17 02/06/18 05:16 Range/Units Glucometer 222 H 120 H 201 H 138 H 70-110 MG/DL Test 02/06/18 05:22 02/06/18 10:44 02/06/18 15:56 02/06/18 20:21 Range/Units White Blood Count 14.0 H 4.3-11.0 10^3/uL Red Blood Count 3.88 L 4.35-5.85 10^6/uL Hemoglobin 12.1 L 13.3-17.7 G/DL Hematocrit 36 L 40-54 % Mean Corpuscular Volume 94 80-99 FL Mean Corpuscular Hemoglobin 31 25-34 PG Mean Corpuscular Hemoglobin Concent 33 32-36 G/DL Red Cell Distribution Width 16.6 H 10.0-14.5 % Platelet Count 120 L 130-400 10^3/uL Mean Platelet Volume 11.4 H 7.4-10.4 FL Sodium Level 139 135-145 MMOL/L Potassium Level 3.9 3.6-5.0 MMOL/L Chloride Level 106 98-107 MMOL/L Carbon Dioxide Level 24 21-32 MMOL/L Anion Gap 9 5-14 MMOL/L Blood Urea Nitrogen 28 H -18 MG/DL Creatinine 1.44 H 0.60-1.30 MG/DL Estimat Glomerular Filtration Rate 48 BUN/Creatinine Ratio 19 Glucose Level 125 H 70-105 MG/DL Calcium Level 8.9 8.5-10.1 MG/DL Glucometer 152 H 168 H 132 H 70-110 MG/DL Test 02/07/18 05:23 02/07/18 05:48 02/07/18 06:35 02/07/18 10:49 Range/Units Glucometer 137 H 130 H 70-110 MG/DL Sodium Level 138 135-145 MMOL/L Potassium Level 3.7 3.6-5.0 MMOL/L Chloride Level 105 98-107 MMOL/L Carbon Dioxide Level 24 21-32 MMOL/L Anion Gap 9 5-14 MMOL/L Blood Urea Nitrogen 28 H 7-18 MG/DL Creatinine 1.44 H 0.60-1.30 MG/DL Estimat Glomerular Filtration Rate 48 BUN/Creatinine Ratio 19 Glucose Level 102 70-105 MG/DL Calcium Level 8.9 8.5-10.1 MG/DL White Blood Count 14.0 H 4.3-11.0 10^3/uL Red Blood Count 3.86 L 4.35-5.85 10^6/uL Hemoglobin 12.2 L 13.3-17.7 G/DL Hematocrit 36 L 40-54 % Mean Corpuscular Volume 93 80-99 FL Mean Corpuscular Hemoglobin 32 25-34 PG Mean Corpuscular Hemoglobin Concent 34 32-36 G/DL Red Cell Distribution Width 16.2 H 10.0-14.5 % Platelet Count 123 L 130-400 10^3/uL Mean Platelet Volume 10.8 H 7.4-10.4 FL Radiology Reviewed Date of Exam: 02/02/18 CHEST 1 VIEW, AP/PA ONLY INDICATION: Chills x1-2 hours Frontal chest obtained at 7:40 p.m. and is compared with 01/04/18. There is post sternotomy change with cardiomegaly with unchanged pacemaker device. There is some infiltrate in the right infrahilar region which is new compared to the prior study. Left lung is grossly clear. There is no pneumothorax or gross pleural fluid. IMPRESSION: Cardiomegaly with postoperative changes. There is mild central vascular congestion. There is new infiltrate in the right lung base, pneumonia is not excluded. Followup is recommended. CHEST 1 VIEW, AP/PA ONLY EXAM: Portable erect AP chest at 3:22 INDICATION: Respiratory distress When compared to the prior exam of 02/02/2018, there does not appear to have been any significant change. The heart is stable in size. There is still mild pulmonary congestion. There is a small amount of atelectasis/infiltrate and fluid partially obscuring the right lung base. The mediastinum is not widened. The osseous structures are intact. The left-sided pacemaker seen previously is again evident and no different. IMPRESSION: Stable chest. There has been no adverse change since the prior exam. Discharge Instructions to patient/family Please see electronic discharge instructions given to patient. Discharge Medications Reviewed and agree with Discharge Medication list on patient's Discharge Instruction sheet Clinical Quality Measures DVT/VTE Risk/Contraindication: Risk Factor Score Per Nursin RFS Level Per Nursing on Admit: 4+=Very High Risk Score Comment: Lovenox Copy Copies To 1: ABHINAV GONZALEZ MD, BETHANY N MD Feb 07, 2018 11:31
== END 2018-02-07 09:43 | disposition swing bed (61) | DRG 871 ==
LOC: EDUNIT# 19:21 → ER 19:23 → ICU 20:15 → 4TH 02-04 13:12
PROVIDERS: ADMIT Family Medicine; ATTEND Family Medicine
DX: A41.89 Other specified sepsis (principal); A41.50 Gram-negative sepsis, unspecified; N39.0 Urinary tract infection, site not specified; J18.9 Pneumonia, unspecified organism; J96.20 Acute and chronic respiratory failure, unspecified whether with hypoxia or hypercapnia; N17.9 Acute kidney failure, unspecified; J44.0 Chronic obstructive pulmonary disease with (acute) lower respiratory infection; I11.0 Hypertensive heart disease with heart failure; I50.9 Heart failure, unspecified; I25.10 Atherosclerotic heart disease of native coronary artery without angina pectoris; I25.2 Old myocardial infarction; E78.00 Pure hypercholesterolemia, unspecified; G47.30 Sleep apnea, unspecified; R73.9 Hyperglycemia, unspecified; I70.201 Unspecified atherosclerosis of native arteries of extremities, right leg; I87.2 Venous insufficiency (chronic) (peripheral); G62.9 Polyneuropathy, unspecified; F03.90 Unspecified dementia, unspecified severity, without behavioral disturbance, psychotic disturbance, mood disturbance, and anxiety; K21.9 Gastro-esophageal reflux disease without esophagitis; M19.91 Primary osteoarthritis, unspecified site; F32.9 Major depressive disorder, single episode, unspecified; H40.9 Unspecified glaucoma; H91.90 Unspecified hearing loss, unspecified ear; R26.2 Difficulty in walking, not elsewhere classified; Z99.81 Dependence on supplemental oxygen; Z87.891 Personal history of nicotine dependence; Z95.1 Presence of aortocoronary bypass graft; Z95.5 Presence of coronary angioplasty implant and graft; Z95.810 Presence of automatic (implantable) cardiac defibrillator; Z85.828 Personal history of other malignant neoplasm of skin
CPT/HCPCS: 36415; 36600; 71045; 80048; 80053; 80162; 81000; 82805; 82962; 83036; 83605; 83735; 83880; 84100; 84484; 85007; 85025; 85027; 85610; 85730; 87040; 87077; 87088; 87186; 93005; 93041; 94640; 94660; 94664; 94760; 96361; 96374; 96375

== ENCOUNTER 2018-02-07 09:43 | Inpatient (IN) | payer MEDICARE, MEDICAID ==
[~2018-02-07] VITALS: Ht 165.1 cm; Wt 95.7 kg
[~2018-02-07 09:43] MED LIST changes: +ALBU1.25 NEB; +ALBU2.5V4 NEB; +AMIO400T5 PO
[2018-02-07] MEDS ORDERED: RT-ALBUTEROL/IPRATROPIUM 3 ML (DUONEB) VIAL INH PRN (10:00)
--- NOTE | 2018-02-07 10:53 | Physical Therapy Evaluation ---
PT Evaluation-General Medical Diagnosis Admission Date Feb 07, 2018 at 09:43 Medical Diagnosis: pneumonia; sepsis Onset Date: Feb 07, 2018 Therapy Diagnosis Therapy Diagnosis: weakness; abn gait Height/Weight Height (Feet): 5 Height (Inches): 5.00 Weight (Pounds): 211 Weight (Ounces): 6.0 Referral Physician: Charanjit Reason for Referral: Evaluation/Treatment Medical History Pertinent Medical History: Atrial Fib, Arthritis, CABG, CAD, COPD, Dementia, GERD, NH, Neuropathy Current History Admitted to [facility]) with complaints of weakness and burning with urination. Found to have pneumonia with sepsis. Transferred to [facility] for continued medical management and PT services to increase functional strength. Reviewed History: Yes Social History Home: Apartment (handicap accessible.) Current Living Status: Spouse Entry Into Home: Level Entry Prior/Core FIM Prior Level of Function Functional [place] Measure 0=Not Assessed/NA 4=Minimal Assistance 1=Total Assistance 5=Supervision or Setup 2=Maximal Assistance 6=Modified [place] 3=Moderate Assistance 7=Complete [place] Bed Mobility: 6 Transfers (B,C,W/C) (FIM): 6 Gait: 6 (fWW) PT Evaluation-Current Subjective Pt agreeable to PT. Hoping to go home soon. Pain Numeric Pain Scale: 0-No Pain Location: No Pain Reported Objective Patient Orientation: Person, Place, Time, Situation Problem Solving: Fair Attachments: Oxygen ROM/Strength ROM Lower Extremities wFL Strenght Lower Extremities grossly 4/5 throughout Integumentary/Posture Integumentary refer to nursing notes. Bowel Incontinence: No Bladder Incontinence: No Posture rounded shoulders and slightly forward flexed at hips;forward displaces his balance Neuromuscular (Tone, Coordination, Reflexes) functional Sensory Vision: Wears Glasses Hearing: Functional Hand Dominance: Right Sensation Right Lower Extremit: Intact Sensation Left Lower Extremity: Intact Transfers Functional [place] Measure 0=Not Assessed/NA 4=Minimal Assistance 1=Total Assistance 5=Supervision or Setup 2=Maximal Assistance 6=Modified [place] 3=Moderate Assistance 7=Complete [place] Sit to/from Stand: 4 (cGA with skilled cues for sequencing. ) Sit to Stand (QC): 4 Chair/[id number]-jj-Tfncu Xfer(QC): 4 Sit to from stand transfers from chair; toilet transfer with min assist as well. Gait Does the Patient Walk?: Yes Mode of Locomotion: Walk Anticipated Mode of Locomotion: Walk Gait (FIM): 2 Distance (FIM): 5=409-55 ft Distance: 100 ft Walk 50 ft with 2 Turns(QC): 4 Walk 150 ft (QC): 88 Gait Assistive Device: FWW Comments/Gait Description slow gait with forward flexed at hips; narrow ANTONI and decresed step length; slightly unsteady. Balance Sitting Static: Fair Sitting Dynamic: Fair Standing Static: Fair Standing Dynamic: Fair Treatment Worked on functional gait within the room as well as in and out of the bathroom. Seated LE ther ex x 10 fro AP, LAQ, hip flexion; SAQ, AP and heels slides in sitting. Assessment/Needs Pt presents with a decline in functional strength and mobility. Will benefit from skilled PT to work on strength to allow hime to return home with his as before. Rehab Potential: Good PT Payroll And Benefits Specialist Goals Assisted Goals PT Payroll And Benefits Specialist Goals Time Frame: Feb 14, 2018 Transfers (B,C,W/C) (FIM): 6 Sit to Lying (QC): 6 Lying-Sitting on Side/Bed(QC): 6 Sit to Stand (QC): 6 Chair/Cam-wk-Heizm Xfer(QC): 6 Does the Patient Walk: Yes Gait (FIM): 6 Gait distance (FIM): 3=150 ft Walk 50ft with 2 Turns (QC): 6 Walk 150 ft (QC): 6 Gait Assistive Device: FWW PT Plan Problem List Problem List: Activity Tolerance, Functional Strength, Safety, Balance, Gait, Transfer, Bed Mobility Treatment/Plan Treatment Plan: Continue Plan of Care Treatment Plan: Bed Mobility, Education, Functional Activity [place], Functional Strength, Gait, Safety, Therapeutic Exercise, Transfers Treatment Duration: Feb 14, 2018 Frequency: 6 times per week Estimated Hrs Per Day: .5 hour per day Patient and/or Family Agrees t: Yes Safety Risks/Education Patient Education: Transfer Techniques, Safety Issues Teaching Recipient: Patient Teaching Methods: Demonstration, Discussion Response to Teaching: Reinforcement Needed Discharge Recommendations Therapy D/C Recommendations: Physical Therapy Home Care Time/GCodes Time In: 1000 Time Out: 1038 Total Billed Treatment Time: 38 Total Billed Treatment visit EVM 15 Gt 15 EX 8 AYLA PEREZ PT Feb 07, 2018 10:52
[2018-02-07] MEDS: ENOXAPARIN 40 MG/0.4 ML (LOVENOX) SYR SQ SCH (10:54)
[2018-02-07] MEDS: inSUlin ASPART (NovoLOG) 1 UNIT/0.01 ML (CHARGE PER UNIT) SC SCH ×3 (11:06→21:37)
[2018-02-07] MEDS: MEXILETINE 150 MG (MEXITIL) CAPSULE PO SCH ×2 (13:37→23:36)
--- NOTE | 2018-02-07 14:48 | Occupational Therapy Eval ---
OT Evaluation-General/PLF Medical Diagnosis Admission Date Feb 07, 2018 at 09:43 Medical Diagnosis: pneumonia; sepsis Onset Date: Feb 07, 2018 Therapy Diagnosis Therapy Diagnosis: Weakness Height/Weight Height (Feet): 5 Height (Inches): 5.00 Weight (Pounds): 211 Weight (Ounces): 0.0 Precautions Precautions/Isolations: Fall Prevention, Standard Precautions Weight Bear Status Weight Bearing Restriction: Weight Bearing/Tolerated Referral Physician: Charanjit Referral Reason: Activity Tolerance, Self Care, Evaluation/Treatment, Strengthening/ROM Medical History Pertinent Medical History: Atrial Fib, Arthritis, CABG, CAD, COPD, Dementia, GERD, [place], Neuropathy Current History Lives with spouse in [facility]. Became ill and brought to hospital. Reviewed History: Yes Social History Home: Apartment Current Living Status: Spouse Entry Into Home: Level Entry ADL-Prior Level of Function ADL PLOF Comments Spouse does a lot of the communication for pt. States that pt. is in a wheelchair "half of the time" and with a walker "half of the time." Spouse states that both her and pt. have 3 hours of caregiver assist a day, adding up to 6 hours per day. Pt. does state that he can dress himself. Spouse states that she is with him when he showers so that he doesn't "fall out." DME/Equipment: Bath Chair, Tub/Shower DME/Equipment Comments Spouse states that pt. has a walker, wheelchair. Drive Self: Yes OT Current Status Subjective No pain reported. Appearance Pt. up in chair. Agrees to work with OT. Mental Status/Objective Patient Orientation: Unable to Assess Current Glasses/Contacts: Yes Hand Dominance: Right Upper Extremity ROM WFL ADL-Treatment Functional [place] Measure 0=Not Assessed/NA 4=Minimal Assistance 1=Total Assistance 5=Supervision or Setup 2=Maximal Assistance 6=Modified [place] 3=Moderate Assistance 7=Complete IndependenceIRFPAI Quality Coding Scale 6 Independent with activity with or without an assistive device 5 Patient requires set up or clean up by helper. Patient completes activity by themselves 4 Supervision or touching assist (CGA). [place] provide cues , steadying assist 3 The helper provides less than half the effort to complete the activity 2 The helper provides more than half the effort to complete the activity 1 Dependent. The helper does all the effort to complete an activity 7 Patient refused to complete or attempt activity 9 The patient did not perform the activity before the current illness or injury 88 Not attempted due to Medical conditions or safety concerns Eating (FIM): 5 (Meal tray came and pt. was asked if he could set his own tray up. Pt. attempted to, but would "fumble" with the food. OT did this for him.) Eating (QC): 5 Lower Body Dressing (FIM): 3 (With effort, pt. is able to doff his socks. OT has to put them on him.) Transfers (B, C, W/C) (FIM): 4 (Sit-stand) Pt. states that he has already had a bath. OT asks him if he needs to use the bathroom while she is present. States "no." Meal tray came and OT set this up for him. Pt. is able to eat by himself. Spouse present and is also eating a tray. Education OT Patient Education: Correct positioning, Modified ADL techniques, Progress toward Goal/Update tx plan, Purpose of tx/functional activities, Reviewed precautions, Rehab process, Transfer techniques Teaching Recipient: Patient, Significant Other Teaching Methods: Demonstration, Discussion Response to Teaching: Verbalize Understanding, Return Demonstration OT Short Term Goals Short Term Goals Time Frame: Feb 14, 2018 Eating(FIM): 5 Grooming(FIM): 5 Bathing(FIM): 3 Upper Body Dressing(FIM): 5 Lower Body Dressing(FIM): 4 Toileting(FIM): 4 Transfers (B,C,W/C) (FIM): 5 Toilet/Commode Transfer(FIM): 5 Shower Transfer(FIM): 4 Additional Short Term Goals: 1-Demonstrate ADL Tasks, 2-Verbalize Understanding , 3-ImproveStrength/[place] 1=Demonstrate adherence to instructed precautions during ADL tasks. 2=Patient will verbalize/demonstrate understanding of assistive devices/ modifications for ADL. 3=Patient will improve strength/tolerance for activity to enable patient to perform ADL's. OT Mcc Goals Mcc Goals Time Frame: Feb 21, 2018 Eating (FIM): 6 Eating (QC): 6 Groomin Oral Hygiene (QC): 5 Bathing(FIM): 4 Upper Body Dressing(FIM): 5 Lower Body Dressing(FIM): 5 Toileting(FIM): 6 Toileting Hygiene (QC): 6 Transfers (B,C,W/C) (FIM): 6 Toilet/Commode Transfer(FIM): 6 Toilet/Commode Transfer (QC): 6 Shower Transfer(FIM): 5 Additional Goals: 1-Demonstrate ADL Tasks, 2-Verbalize Understanding, 3- ImproveStrength/Mckinley 1=Demonstrate adherence to instructed precautions during ADL tasks. 2=Patient will verbalize/demonstrate understanding of assistive devices/ modifications for ADL. 3=Patient will improve strength/tolerance for activity to enable patient to perform ADL's. OT Education/Plan Problem List/Assessment Assessment: Decreased Activ Tolerance, Dependent Transfers, Impaired I ADL's, Impaired Self-Care Skills Discharge Recommendations Plan/Recommendations: Continue POC Therapy D/C Recommendations: Home w/ Family Support, Occupational Therapy Home Care, Scheduled Assistance Treatment Plan/Plan of Care Treatment,Training & Education: Yes Patient would benefit from OT for education, treatment and training to promote independence in ADL's, mobility, safety and/or upper extremity function for ADL' s. Plan of Care: ADL Retraining, Functional Mobility, UE Funct Exercise/Act Treatment Duration: Feb 21, 2018 Frequency: 5 times per week Estimated Hrs Per Day: .25 hour per day Agreement: Yes Rehab Potential: Good Time/GCodes Start Time: 13:00 Stop Time: 13:20 Total Time Billed (hr/min): 20 Billed Treatment Time 1, ALFREDO FLORENCE OT Feb 07, 2018 14:48
[2018-02-07] MEDS: FUROSEMIDE 40 MG (LASIX) TAB PO SCH (15:04)
[2018-02-07] MEDS: KCL 8 MEQ (MICRO K) TABLET PO SCH (17:32)
[2018-02-07 18:10] VITALS: BP 156/77
[2018-02-07] MEDS: RT-ALBUTEROL/IPRATROPIUM 3 ML (DUONEB) VIAL INH SCH (18:58)
[2018-02-07] MEDS: CEFEPIME INJECTION 2,000 MG in NS (IVPB) 50 ML IV SCH (23:36)
[2018-02-07] MEDS: meTOprolol TARTRATE 25 MG (LOPRESSOR) TABLET PO SCH (23:36)
[2018-02-08 06:15] LABS: HEMOGLOBIN 11.6 G/DL (13.3-17.7); RED BLOOD COUNT 3.76 10^6/uL (4.35-5.85); WHITE BLOOD COUNT 14.2 10^3/uL (4.3-11.0)
[2018-02-08] MEDS: inSUlin ASPART (NovoLOG) 1 UNIT/0.01 ML (CHARGE PER UNIT) SC SCH ×4 (06:16→21:36)
[2018-02-08] MEDS: PANTOPRAZOLE 40 MG (PROTONIX) TAB PO SCH (06:21)
[2018-02-08] MEDS: KCL 8 MEQ (MICRO K) TABLET PO SCH ×2 (06:21→17:04)
[2018-02-08 06:29] LABS: CALCIUM 9.3 MG/DL (8.5-10.1); CREATININE SERUM 1.38 MG/DL (0.60-1.30); POTASSIUM 3.7 MMOL/L (3.6-5.0)
[2018-02-08 06:34] VITALS: BP 168/80
[2018-02-08] MEDS: RT-ALBUTEROL/IPRATROPIUM 3 ML (DUONEB) VIAL INH SCH ×2 (07:28→19:25)
[2018-02-08] MEDS: MEXILETINE 150 MG (MEXITIL) CAPSULE PO SCH ×3 (08:50→20:50)
[2018-02-08] MEDS: ENOXAPARIN 40 MG/0.4 ML (LOVENOX) SYR SQ SCH (08:50)
[2018-02-08] MEDS: FUROSEMIDE 40 MG (LASIX) TAB PO SCH ×2 (08:50→14:06)
[2018-02-08] MEDS: AMIODARONE 200 MG (CORDARONE) TAB PO SCH (08:50)
[2018-02-08] MEDS: meTOprolol TARTRATE 25 MG (LOPRESSOR) TABLET PO SCH ×2 (08:50→20:50)
[2018-02-08] MEDS: DIGOXIN 0.125 MG (LANOXIN) TAB PO SCH (08:50)
[2018-02-08] MEDS: inSUlin DETERMIR 1 UNIT/0.01 ML (LEVEMIR) CHARGE PER UNIT SQ SCH (08:50)
--- NOTE | 2018-02-08 09:32 | Physical Therapy Daily Note ---
PT Daily Note-Current Subjective Patient agrees to PT. Spouse present and encourages patient to participate. Pain Numeric Pain Scale: 0-No Pain Location: No Pain Reported Mental Status Patient Orientation: Normal For Age Attachments: Oxygen Transfers Functional [place] Measure 0=Not Assessed/NA 4=Minimal Assistance 1=Total Assistance 5=Supervision or Setup 2=Maximal Assistance 6=Modified [place] 3=Moderate Assistance 7=Complete IndependenceIRFPAI Quality Coding Scale 6 Independent with activity with or without an assistive device 5 Patient requires set up or clean up by helper. Patient completes activity by themselves 4 Supervision or touching assist (CGA). [place] provide cues , steadying assist 3 The helper provides less than half the effort to complete the activity 2 The helper provides more than half the effort to complete the activity 1 Dependent. The helper does all the effort to complete an activity 7 Patient refused to complete or attempt activity 9 The patient did not perform the activity before the current illness or injury 88 Not attempted due to Medical conditions or safety concerns Transfers (B, C, W/C) (FIM): 5 Scootin Sit to/from Stand: 5 Sit to Stand (QC): 5 Gait Training Does the Patient Walk?: Yes Gait (FIM): 5 Distance (FIM): 3=150 ft Distance: 175' Walk 50 ft with 2 Turns(QC): 5 Walk 150 ft (QC): 5 Gait Level of Assist: 5 Gait Assistive Device: FWW kyphotic/functional gait sequence Exercises Seated Therapy Exercises: Ankle pumps, Long arc quads, Hip flexion Seated Reps: 25 (2 sets) Assessment Patient requires time to complete all functional tasks. PT to increase activity as tolerated by patient. PT Short Term Goals Short Term Goals Transfers (B,C,W/C) (FIM): 5 PT Wallpaper Printer Helper Goals Wallpaper Printer Helper Goals PT Group Home Goals Time Frame: Feb 14, 2018 Transfers (B,C,W/C) (FIM): 6 Sit to Lying (QC): 6 Lying-Sitting on Side/Bed(QC): 6 Sit to Stand (QC): 6 Chair/Nwf-fr-Bypyk Xfer(QC): 6 Does the Patient Walk: Yes Gait (FIM): 6 Gait distance (FIM): 3=150 ft Walk 50ft with 2 Turns (QC): 6 Walk 150 ft (QC): 6 Gait Assistive Device: FWW PT Plan Treatment/Plan Treatment Plan: Continue Plan of Care Treatment Plan: Bed Mobility, Education, Functional Activity [place], Functional Strength, Gait, Safety, Therapeutic Exercise, Transfers Treatment Duration: Feb 14, 2018 Frequency: 6 times per week Estimated Hrs Per Day: .5 hour per day Patient and/or Family Agrees t: Yes Time/GCodes Time In: 901 Time Out: 924 Total Billed Treatment Time: 23 Total Billed Treatment 1 visit EX 10 min GT 13 min SIGRID PUGH PT Feb 08, 2018 09:32
--- NOTE | 2018-02-08 13:52 | Progress Note (SOAP) ---
ARGENIS DEGROOT A MEDICAL STUDENT 02/08/18 1:52pm: Subjective Subjective/Events-last exam Pt states feeling improved today. Pt denies any new symptoms. Review of Systems Time Seen by Provider: 07:03 Objective Exam Last Set of Vital Signs Vital Signs Date Time Temp Pulse Resp B/P (MAP) Pulse Ox O2 Delivery O2 Flow Rate FiO2 02/08/18 09:45 Nasal Cannula 2.00 02/08/18 07:28 96 02/08/18 06:34 99.2 85 20 168/80 (109) Capillary Refill : I&O Intake and Output 02/08/18 00:00 Intake Total 1500 ml Balance 1500 ml Intake Oral 1500 ml # Voids 8 # Bowel Movements 2 Daily Weight Change No General: Alert, Oriented X3, Cooperative, No Acute Distress HEENT: Atraumatic, EOMI Neck: No JVD Lungs: Other (tachypneic) Heart: Regular Rate Abdomen: Normal Bowel Sounds, No Tenderness Extremities: No Edema Neuro: Normal Speech Psych/Mental Status: Mental Status NL Results/Procedures Lab Laboratory Tests Test 02/07/18 15:37 02/07/18 21:02 02/08/18 05:37 02/08/18 05:40 Range/Units Glucometer 120 H 156 H 91 70-110 MG/DL White Blood Count 14.2 H 4.3-11.0 10^3/uL Red Blood Count 3.76 L 4.35-5.85 10^6/uL Hemoglobin 11.6 L 13.3-17.7 G/DL Hematocrit 35 L 40-54 % Mean Corpuscular Volume 94 80-99 FL Mean Corpuscular Hemoglobin 31 25-34 PG Mean Corpuscular Hemoglobin Concent 33 32-36 G/DL Red Cell Distribution Width 16.0 H 10.0-14.5 % Platelet Count 138 130-400 10^3/uL Mean Platelet Volume 11.0 H 7.4-10.4 FL Sodium Level 138 135-145 MMOL/L Potassium Level 3.7 3.6-5.0 MMOL/L Chloride Level 102 98-107 MMOL/L Carbon Dioxide Level 26 21-32 MMOL/L Anion Gap 10 5-14 MMOL/L Blood Urea Nitrogen 27 H 7-18 MG/DL Creatinine 1.38 H 0.60-1.30 MG/DL Estimat Glomerular Filtration Rate 50 BUN/Creatinine Ratio 20 Glucose Level 95 70-105 MG/DL Calcium Level 9.3 8.5-10.1 MG/DL Test 02/08/18 10:49 Range/Units Glucometer 141 H 70-110 MG/DL Laboratory Tests 02/07/18 15:37: Glucometer 120H 02/07/18 21:02: Glucometer 156H 02/08/18 05:37: White Blood Count 14.2H, Red Blood Count 3.76L, Hemoglobin 11.6L, Hematocrit 35L , Mean Corpuscular Volume 94, Mean Corpuscular Hemoglobin 31, Mean Corpuscular Hemoglobin Concent 33, Red Cell Distribution Width 16.0H, Platelet Count 138, Mean Platelet Volume 11.0H, Sodium Level 138, Potassium Level 3.7, Chloride Level 102, Carbon Dioxide Level 26, Anion Gap 10, Blood Urea Nitrogen 27H, Creatinine 1.38H, Estimat Glomerular Filtration Rate 50, BUN/Creatinine Ratio 20 , Glucose Level 95, Calcium Level 9.3 02/08/18 05:40: Glucometer 91 02/08/18 10:49: Glucometer 141H Assessment/Plan Assessment/Plan Assessment & Plan 1. Sepsis w/ bacteremia likely secondary to urinary source - Adm to ICU 02/02/18 - hypotension initially, responsive to IVF; holding BP meds 02/04 clinically improved with improved blood pressure and afebrile last 24 hours , renal function improved, WBC elevated but did receive steroids in ER, lactic acid elevated this am, will give 500 cc bolus and recheck 02/05 Pt remained afebrile and WBC decreased to 18.9, lactic acid is normal 02/06 pt had temperature of 100.0F during the last 24 hours, will continue IV abx and consider transitioning pt to swing 02/07 discharged to swing to complete 7 day course of IV antibiotics and continue PT 02/08 will give pt last does of IV abx and switch to oral Cefepime. Unable to get home health today so will keep pt overnight. 2. UTI - Blood cultures prelim show GNR; reviewed clinic records urine culture from showed P. Mirabilis w/ resistance to Levaquin but sensitive to Cefepime - started Cefepime and Levaquin 02/02/1802/04- culture with proteus resistant to fluoroquinolone, will continue cefepime and discontinue levofloxacin 02/05 - will continue pt on cefepime 3. R Lower Lobe Pneumonia - RLL infiltrated noted on CXR - Currently on Cefepime and Levaquin 02/04 d/c levofloxacin, respiratory status improved as noted below 4. Acute on Chronic Respiratory Failure - uses 3L oxygen at home; started on c-pap in ER due to work of breathing - breathing improved since admission - maintained sats w/o respiratory distress off c-pap - will DC and continue oxygen by NC. 02/04 stable on nasal cannula, uses intermittently at home 02/05 pt stable on 2.5L NC 5. Hyperglycemia w/o prior hx of DM - no hx of DM diagnosis; reviewed clinic records, last lab was 06/2017 - glucose was 101 - A1c pending - being treated w/ Novolog SSI; BS running 180-409 - pt received Solu-Medrol and Decadron in the ER which is likely exacerbating hyperglycemia - steroids DC as patient has no wheezing. - will start Levemir 10U in addition to SSI until A1c is back and longer-term treatment is determined. 02/05 Pts A1c is 6.2 6. CAD w/ hx of ventricular arrhythmia s/p defibrillator - resume home meds: amiodarone, Digoxin, Mexiletine 02/04 adjusted amiodarone dose to match home dosing 7. CHF - continue home furosemide and KCl 8. Hypertension - will hold Metoprolol, Norvasc due to hypotension 02/07 hypertensive, resumed metoprolol, anticipate will need to resume amlodipine soon as well 9. JOAN - baseline Cr from 06/2017 0.97, GFR >60 - Cr 1.32 -->1.63; continue to monitor; IVF currently running at 60mL/h 02/04 improved this am, continue to monitor 02/05 pt's Creat increased from 1.47 --> 1.58 02/06 pt's creat decreased from 1.58--> 1.44 02/07 creatinine stable at 1.44, IVF discontinued with good intake and increasing blood pressure 10. Electrolyte abnormalities on admission - Phos low at 1.2 - will replace - Mag low at 1.7 - replaced 02/05 - Phos now at 3, Mag at 2.1 Clinical Quality Measures DVT/VTE Risk/Contraindication: Risk Factor Score Per Nursin RFS Level Per Nursing on Admit: 4+=Very High KENYATTA TUTTLE MD 02/08/18 2:12pm: Subjective Review of Systems Date Seen by Provider: Feb 08, 2018 Time Seen by Provider: 11:18 Supervisory-Addendum Brief Supervisory Addendum Patient seen and examined by me with MS3 Flaquito Degroot, agree with documentation unless otherwise noted. Transition to oral antibiotics tomorrow am, add back home amlodipine. Continue SWB for therapy and anticipate d/c Sunday. ARGENIS DEGROOT MEDICAL STUDENT Feb 08, 2018 1:52 pm KENYATTA TUTTLE MD Feb 08, 2018 2:12 pm
--- NOTE | 2018-02-08 14:49 | Occupational Ther Daily Note ---
OT Current Status-Daily Note Subjective Pt seen in room, up in recliner, agreeable to OT. No pain mentioned. Appearance Alert, cooperative Mental Status/Objective Functional [place] Measure 0=Not Assessed/NA 4=Minimal Assistance 1=Total Assistance 5=Supervision or Setup 2=Maximal Assistance 6=Modified [place] 3=Moderate Assistance 7=Complete [place] ADL-Treatment Functional [place] Measure 0=Not Assessed/NA 4=Minimal Assistance 1=Total Assistance 5=Supervision or Setup 2=Maximal Assistance 6=Modified [place] 3=Moderate Assistance 7=Complete IndependenceIRFPAI Quality Coding Scale 6 Independent with activity with or without an assistive device 5 Patient requires set up or clean up by helper. Patient completes activity by themselves 4 Supervision or touching assist (CGA). [place] provide cues , steadying assist 3 The helper provides less than half the effort to complete the activity 2 The helper provides more than half the effort to complete the activity 1 Dependent. The helper does all the effort to complete an activity 7 Patient refused to complete or attempt activity 9 The patient did not perform the activity before the current illness or injury 88 Not attempted due to Medical conditions or safety concerns Other Treatment Pt provided with yellow theraband for bilat UE exercise to help with transfers and ADLs. He recalled exercises that he has done at home and did 20-25 reps, with a little help tracking reps or occasional cue to do the exercise correctly. Pt encouraged to do additional exercises on his own in his room - his will help remind him. Pt left up in recliner, present, all needs met. Education OT Patient Education: Exercise program, Home exercise program Teaching Recipient: Patient Teaching Methods: Demonstration, Discussion Response to Teaching: Verbalize Understanding, Return Demonstration, Reinforcement Needed OT Short Term Goals Short Term Goals Time Frame: Feb 14, 2018 Eating(FIM): 5 Grooming(FIM): 5 Bathing(FIM): 3 Upper Body Dressing(FIM): 5 Lower Body Dressing(FIM): 4 Toileting(FIM): 4 Transfers (B,C,W/C) (FIM): 5 Toilet/Commode Transfer(FIM): 5 Shower Transfer(FIM): 4 Additional Short Term Goals: 1-Demonstrate ADL Tasks, 2-Verbalize Understanding , 3-ImproveStrength/[place] 1=Demonstrate adherence to instructed precautions during ADL tasks. 2=Patient will verbalize/demonstrate understanding of assistive devices/ modifications for ADL. 3=Patient will improve strength/tolerance for activity to enable patient to perform ADL's. OT Assembler [employer] Goals As[employer]er [employer] Goals Time Frame: Feb 21, 2018 Eating (FIM): 6 Eating (QC): 6 Groomin Oral Hygiene (QC): 5 Bathing(FIM): 4 Upper Body Dressing(FIM): 5 Lower Body Dressing(FIM): 5 Toileting(FIM): 6 Toileting Hygiene (QC): 6 Transfers (B,C,W/C) (FIM): 6 Toilet/Commode Transfer(FIM): 6 Toilet/Commode Transfer (QC): 6 Shower Transfer(FIM): 5 Additional Goals: 1-Demonstrate ADL Tasks, 2-Verbalize Understanding, 3- ImproveStrength/[place] 1=Demonstrate adherence to instructed precautions during ADL tasks. 2=Patient will verbalize/demonstrate understanding of assistive devices/ modifications for ADL. 3=Patient will improve strength/tolerance for activity to enable patient to perform ADL's. OT Education/Plan Discharge Recommendations Plan/Recommendations: Continue POC Treatment Plan/Plan of Care Patient would benefit from OT for education, treatment and training to promote independence in ADL's, mobility, safety and/or upper extremity function for ADL' s. Plan of Care: ADL Retraining, Functional Mobility, UE Funct Exercise/Act Treatment Duration: Feb 21, 2018 Frequency: 5 times per week Estimated Hrs Per Day: .25 hour per day Agreement: Yes Rehab Potential: Good Time/GCodes Start Time: 13:52 Stop Time: 14:07 Total Time Billed (hr/min): 15 Billed Treatment Time visit, 15 minutes exercise KD LIM OT Feb 08, 2018 14:49
[2018-02-08 18:00] VITALS: BP 170/78
[2018-02-08] MEDS: ACETAMINOPHEN 500 MG TAB (TYLENOL) PO PRN (18:48)
[2018-02-08 20:08] VITALS: BP 170/78
[2018-02-08] MEDS: amLODIPine 5 MG (NORVASC) TAB PO SCH (20:50)
[2018-02-08] MEDS: CEFEPIME INJECTION 2,000 MG in NS (IVPB) 50 ML IV SCH (20:51)
[2018-02-08] MEDS ORDERED: NON-FORMULARY MEDICATION 1 EA EA (Amlodipine Besylate 5 MG) PO SCH (21:00)
[2018-02-09 05:40] LABS: HEMOGLOBIN 12.2 G/DL (13.3-17.7); MEAN PLATELET VOLUME 10.9 FL (7.4-10.4); RED BLOOD COUNT 3.87 10^6/uL (4.35-5.85); RED CELL DISTRIBUTION WIDTH 15.9 % (10.0-14.5); WHITE BLOOD COUNT 13.4 10^3/uL (4.3-11.0)
[2018-02-09] MEDS: inSUlin ASPART (NovoLOG) 1 UNIT/0.01 ML (CHARGE PER UNIT) SC SCH ×4 (05:58→21:08)
[2018-02-09 05:59] LABS: CALCIUM 9.4 MG/DL (8.5-10.1); CREATININE SERUM 1.47 MG/DL (0.60-1.30)
[2018-02-09 06:03] VITALS: BP 159/73
[2018-02-09] MEDS: PANTOPRAZOLE 40 MG (PROTONIX) TAB PO SCH (06:10)
[2018-02-09] MEDS: KCL 8 MEQ (MICRO K) TABLET PO SCH ×2 (06:10→16:45)
[2018-02-09] MEDS: RT-ALBUTEROL/IPRATROPIUM 3 ML (DUONEB) VIAL INH SCH ×2 (07:19→19:42)
[2018-02-09] MEDS: CEFDINIR 300 MG (OMNICEF) CAP PO SCH ×2 (08:39→20:00)
[2018-02-09] MEDS: ENOXAPARIN 40 MG/0.4 ML (LOVENOX) SYR SQ SCH (08:39)
[2018-02-09] MEDS: DIGOXIN 0.125 MG (LANOXIN) TAB PO SCH (08:39)
[2018-02-09] MEDS: inSUlin DETERMIR 1 UNIT/0.01 ML (LEVEMIR) CHARGE PER UNIT SQ SCH (08:40)
[2018-02-09] MEDS: ACETAMINOPHEN 500 MG TAB (TYLENOL) PO PRN (08:40)
[2018-02-09] MEDS: MEXILETINE 150 MG (MEXITIL) CAPSULE PO SCH ×3 (08:40→20:01)
[2018-02-09] MEDS: AMIODARONE 200 MG (CORDARONE) TAB PO SCH ×2 (08:40→20:01)
[2018-02-09] MEDS: FUROSEMIDE 40 MG (LASIX) TAB PO SCH ×2 (08:40→15:29)
[2018-02-09] MEDS: meTOprolol TARTRATE 25 MG (LOPRESSOR) TABLET PO SCH ×2 (08:40→20:01)
--- NOTE | 2018-02-09 08:50 | Physical Therapy Daily Note ---
PT Daily Note-Current Subjective Patient reluctantly agrees to PT. C/o left knee pain 8/10. RN notified and is issuing pain medication. Pain Numeric Pain Scale: 8 Location: Left Location Body Site: Knee Pain Description: Chronic Mental Status Patient Orientation: Person, Time, Situation Attachments: Oxygen Transfers Functional [place] Measure 0=Not Assessed/NA 4=Minimal Assistance 1=Total Assistance 5=Supervision or Setup 2=Maximal Assistance 6=Modified [place] 3=Moderate Assistance 7=Complete IndependenceIRFPAI Quality Coding Scale 6 Independent with activity with or without an assistive device 5 Patient requires set up or clean up by helper. Patient completes activity by themselves 4 Supervision or touching assist (CGA). [place] provide cues , steadying assist 3 The helper provides less than half the effort to complete the activity 2 The helper provides more than half the effort to complete the activity 1 Dependent. The helper does all the effort to complete an activity 7 Patient refused to complete or attempt activity 9 The patient did not perform the activity before the current illness or injury 88 Not attempted due to Medical conditions or safety concerns Transfers (B, C, W/C) (FIM): 4 Scootin Sit to/from Stand: 4 Sit to Stand (QC): 4 Gait Training Does the Patient Walk?: Yes Gait (FIM): 2 Distance (FIM): 1=373-86 ft Distance: 125' Walk 50 ft with 2 Turns(QC): 4 Gait Level of Assist: 4 Gait Persons Needed: 1 Gait Assistive Device: FWW flexed knees, extended UE's with gait. Patient requires minimal assist to maintain stand due to left knee pain. Exercises Seated Therapy Exercises: Ankle pumps, Long arc quads, Hip flexion Seated Reps: 15 (2 sets) Assessment Patient required more assistance on this date due to left knee pain. Noted increase in shuffle gait sequence. Patient is up in recliner with needs met and spouse present. PT Short Term Goals Short Term Goals Transfers (B,C,W/C) (FIM): 5 PT Sheet Metal Fabricator Goals Assisted Goals PT Sheet Metal Fabricator Goals Time Frame: Feb 14, 2018 Transfers (B,C,W/C) (FIM): 6 Sit to Lying (QC): 6 Lying-Sitting on Side/Bed(QC): 6 Sit to Stand (QC): 6 Chair/Rmt-yn-Rxgic Xfer(QC): 6 Does the Patient Walk: Yes Gait (FIM): 6 Gait distance (FIM): 3=150 ft Walk 50ft with 2 Turns (QC): 6 Walk 150 ft (QC): 6 Gait Assistive Device: FWW PT Plan Treatment/Plan Treatment Plan: Continue Plan of Care Treatment Plan: Bed Mobility, Education, Functional Activity [place], Functional Strength, Gait, Safety, Therapeutic Exercise, Transfers Treatment Duration: Feb 14, 2018 Frequency: 6 times per week Estimated Hrs Per Day: .5 hour per day Patient and/or Family Agrees t: Yes Time/GCodes Time In: 825 Time Out: 840 Total Billed Treatment Time: 15 Total Billed Treatment 1 visit FA 15 min SIGRID PUGH PT Feb 09, 2018 08:49
[2018-02-09 18:00] VITALS: BP 140/69
[2018-02-09] MEDS: amLODIPine 5 MG (NORVASC) TAB PO SCH (20:01)
[2018-02-10] MEDS: ACETAMINOPHEN 500 MG TAB (TYLENOL) PO PRN (00:54)
[2018-02-10] MEDS: inSUlin ASPART (NovoLOG) 1 UNIT/0.01 ML (CHARGE PER UNIT) SC SCH ×4 (05:54→21:37)
[2018-02-10] MEDS: KCL 8 MEQ (MICRO K) TABLET PO SCH ×2 (06:34→16:36)
[2018-02-10] MEDS: PANTOPRAZOLE 40 MG (PROTONIX) TAB PO SCH (06:34)
[2018-02-10 06:39] VITALS: BP 149/69
[2018-02-10] MEDS: RT-ALBUTEROL/IPRATROPIUM 3 ML (DUONEB) VIAL INH SCH ×2 (07:04→19:40)
[2018-02-10] MEDS: MEXILETINE 150 MG (MEXITIL) CAPSULE PO SCH ×3 (09:01→20:31)
[2018-02-10] MEDS: meTOprolol TARTRATE 25 MG (LOPRESSOR) TABLET PO SCH ×2 (09:01→20:31)
[2018-02-10] MEDS: DIGOXIN 0.125 MG (LANOXIN) TAB PO SCH (09:01)
[2018-02-10] MEDS: FUROSEMIDE 40 MG (LASIX) TAB PO SCH ×2 (09:01→15:01)
[2018-02-10] MEDS: AMIODARONE 200 MG (CORDARONE) TAB PO SCH ×2 (09:01→20:30)
[2018-02-10] MEDS: inSUlin DETERMIR 1 UNIT/0.01 ML (LEVEMIR) CHARGE PER UNIT SQ SCH (09:01)
[2018-02-10] MEDS: CEFDINIR 300 MG (OMNICEF) CAP PO SCH ×2 (09:01→20:31)
[2018-02-10] MEDS: ENOXAPARIN 40 MG/0.4 ML (LOVENOX) SYR SQ SCH (09:01)
[2018-02-10 16:56] VITALS: BP 153/72
[2018-02-10 17:25] VITALS: BP 153/72
[2018-02-10 19:46] VITALS: BP 148/66
[2018-02-10] MEDS: amLODIPine 5 MG (NORVASC) TAB PO SCH (20:30)
[2018-02-11 06:00] VITALS: BP 139/65
[2018-02-11] MEDS: inSUlin ASPART (NovoLOG) 1 UNIT/0.01 ML (CHARGE PER UNIT) SC SCH ×3 (06:05→17:01)
[2018-02-11] MEDS: PANTOPRAZOLE 40 MG (PROTONIX) TAB PO SCH (06:22)
[2018-02-11] MEDS: KCL 8 MEQ (MICRO K) TABLET PO SCH ×2 (06:22→17:03)
[2018-02-11] MEDS: RT-ALBUTEROL/IPRATROPIUM 3 ML (DUONEB) VIAL INH SCH (07:37)
[2018-02-11] MEDS: FUROSEMIDE 40 MG (LASIX) TAB PO SCH ×2 (09:21→17:03)
[2018-02-11] MEDS: DIGOXIN 0.125 MG (LANOXIN) TAB PO SCH (09:21)
[2018-02-11] MEDS: AMIODARONE 200 MG (CORDARONE) TAB PO SCH (09:21)
[2018-02-11] MEDS: meTOprolol TARTRATE 25 MG (LOPRESSOR) TABLET PO SCH (09:21)
[2018-02-11] MEDS: MEXILETINE 150 MG (MEXITIL) CAPSULE PO SCH ×2 (09:21→17:03)
[2018-02-11] MEDS: CEFDINIR 300 MG (OMNICEF) CAP PO SCH (09:21)
[2018-02-11] MEDS: inSUlin DETERMIR 1 UNIT/0.01 ML (LEVEMIR) CHARGE PER UNIT SQ SCH (09:22)
[2018-02-11] MEDS: ENOXAPARIN 40 MG/0.4 ML (LOVENOX) SYR SQ SCH (09:22)
--- NOTE | 2018-02-11 10:49 | Physical Therapy Daily Note ---
PT Daily Note-Current Subjective Patient initially declined PT, however, spouse highly encouraged patient to participate with PT so they can go home. Patient reluctantly agrees. Pain Numeric Pain Scale: 5-Moderate Pain Location: Right, Left Location Body Site: Knee Pain Description: Chronic Mental Status Patient Orientation: Person, Time, Situation Attachments: Oxygen Transfers Functional [place] Measure 0=Not Assessed/NA 4=Minimal Assistance 1=Total Assistance 5=Supervision or Setup 2=Maximal Assistance 6=Modified [place] 3=Moderate Assistance 7=Complete IndependenceIRFPAI Quality Coding Scale 6 Independent with activity with or without an assistive device 5 Patient requires set up or clean up by helper. Patient completes activity by themselves 4 Supervision or touching assist (CGA). [place] provide cues , steadying assist 3 The helper provides less than half the effort to complete the activity 2 The helper provides more than half the effort to complete the activity 1 Dependent. The helper does all the effort to complete an activity 7 Patient refused to complete or attempt activity 9 The patient did not perform the activity before the current illness or injury 88 Not attempted due to Medical conditions or safety concerns Transfers (B, C, W/C) (FIM): 4 Scootin Sit to/from Stand: 4 Sit to Stand (QC): 4 Patient requires CGA for safety Gait Training Does the Patient Walk?: Yes Gait (FIM): 2 Distance (FIM): 7=882-80 ft Distance: 100' Walk 50 ft with 2 Turns(QC): 4 Gait Level of Assist: 4 Gait Assistive Device: FWW extended UE's, flexed knee flexion, shuffle gait sequence Exercises Seated Therapy Exercises: Ankle pumps, Long arc quads, Hip flexion Seated Reps: 15 (2 sets) Assessment Patient ceased treatment and remains up in recliner with needs met. Patient and spouse report he is mainly in his w/c at home and ambulates minimally. If patient does dismiss to home, this PT recommends home health PT due to safety concerns. Patient continues to require more assistance for mobility. PT Short Term Goals Short Term Goals Transfers (B,C,W/C) (FIM): 5 PT Residential Goals Residential Goals PT Manufacturing Team Member Goals Time Frame: Feb 14, 2018 Transfers (B,C,W/C) (FIM): 6 Sit to Lying (QC): 6 Lying-Sitting on Side/Bed(QC): 6 Sit to Stand (QC): 6 Chair/Irs-sd-Chjic Xfer(QC): 6 Does the Patient Walk: Yes Gait (FIM): 6 Gait distance (FIM): 3=150 ft Walk 50ft with 2 Turns (QC): 6 Walk 150 ft (QC): 6 Gait Assistive Device: FWW PT Plan Treatment/Plan Treatment Plan: Continue Plan of Care Treatment Plan: Bed Mobility, Education, Functional Activity [place], Functional Strength, Gait, Safety, Therapeutic Exercise, Transfers Treatment Duration: Feb 14, 2018 Frequency: 6 times per week Estimated Hrs Per Day: .5 hour per day Patient and/or Family Agrees t: Yes Time/GCodes Time In: 955 Time Out: 1010 Total Billed Treatment Time: 15 Total Billed Treatment 1 visit GT 15 min SIGRID PUGH PT Feb 11, 2018 10:49
--- NOTE | 2018-02-11 13:31 | Occupational Ther Daily Note ---
OT Current Status-Daily Note Subjective Pt alert, sitting in recliner with present. Pt agrees to therapy. No c/o pain. Pt's was wanting to know when the doctor made rounds, she thought that they were supposed to leave today. Mental Status/Objective Patient Orientation: Person, Place Functional [place] Measure 0=Not Assessed/NA 4=Minimal Assistance 1=Total Assistance 5=Supervision or Setup 2=Maximal Assistance 6=Modified [place] 3=Moderate Assistance 7=Complete [place] ADL-Treatment CGA for sit to stand. Shuffling gate ambulating to bathroom, verbal cues to step and stay within FWW. Pt transferred to toilet using FWW and grabbars with CGA for safety. Pt able to manipulate clothing and cleanse self with CGA. Pt ambulated back to recliner and was able to push self up with arm chair pushup to scoot self back in chair. After therapy, pt sitting in recliner with call light/phone in reach. All needs met in room. Functional [place] Measure 0=Not Assessed/NA 4=Minimal Assistance 1=Total Assistance 5=Supervision or Setup 2=Maximal Assistance 6=Modified [place] 3=Moderate Assistance 7=Complete IndependenceIRFPAI Quality Coding Scale 6 Independent with activity with or without an assistive device 5 Patient requires set up or clean up by helper. Patient completes activity by themselves 4 Supervision or touching assist (CGA). [place] provide cues , steadying assist 3 The helper provides less than half the effort to complete the activity 2 The helper provides more than half the effort to complete the activity 1 Dependent. The helper does all the effort to complete an activity 7 Patient refused to complete or attempt activity 9 The patient did not perform the activity before the current illness or injury 88 Not attempted due to Medical conditions or safety concerns Toileting (FIM): 4 Toileting Hygiene (QC): 4 Toilet/Commode Transfer (FIM): 4 Toilet Transfer (QC): 4 OT Short Term Goals Short Term Goals Time Frame: Feb 14, 2018 Eating(FIM): 5 Grooming(FIM): 5 Bathing(FIM): 3 Upper Body Dressing(FIM): 5 Lower Body Dressing(FIM): 4 Toileting(FIM): 4 Transfers (B,C,W/C) (FIM): 5 Toilet/Commode Transfer(FIM): 5 Shower Transfer(FIM): 4 Additional Short Term Goals: 1-Demonstrate ADL Tasks, 2-Verbalize Understanding , 3-ImproveStrength/[place] 1=Demonstrate adherence to instructed precautions during ADL tasks. 2=Patient will verbalize/demonstrate understanding of assistive devices/ modifications for ADL. 3=Patient will improve strength/tolerance for activity to enable patient to perform ADL's. OT Manager Of Learning Goals Assisted Goals Time Frame: Feb 21, 2018 Eating (FIM): 6 Eating (QC): 6 Groomin Oral Hygiene (QC): 5 Bathing(FIM): 4 Upper Body Dressing(FIM): 5 Lower Body Dressing(FIM): 5 Toileting(FIM): 6 Toileting Hygiene (QC): 6 Transfers (B,C,W/C) (FIM): 6 Toilet/Commode Transfer(FIM): 6 Toilet/Commode Transfer (QC): 6 Shower Transfer(FIM): 5 Additional Goals: 1-Demonstrate ADL Tasks, 2-Verbalize Understanding, 3- ImproveStrength/[place] 1=Demonstrate adherence to instructed precautions during ADL tasks. 2=Patient will verbalize/demonstrate understanding of assistive devices/ modifications for ADL. 3=Patient will improve strength/tolerance for activity to enable patient to perform ADL's. OT Education/Plan Discharge Recommendations Plan/Recommendations: Continue POC Treatment Plan/Plan of Care Patient would benefit from OT for education, treatment and training to promote independence in ADL's, mobility, safety and/or upper extremity function for ADL' s. Plan of Care: ADL Retraining, Functional Mobility, UE Funct Exercise/Act Treatment Duration: Feb 21, 2018 Frequency: 5 times per week Estimated Hrs Per Day: .25 hour per day Agreement: Yes Rehab Potential: Good Time/GCodes Start Time: 13:15 Stop Time: 13:30 Total Time Billed (hr/min): 15 Billed Treatment Time 1 visit-ADL 1 (15 min) AYLA VENEGAS Feb 11, 2018 13:31
[2018-02-11] MEDS ORDERED: INSU100V5 SQ (14:49)
--- NOTE | 2018-02-11 14:55 | D/C HH Face to Face Order ---
D/C Face to Face Orders Instructions for Patient Patient Instructions/FollowUp: You will have a follow up with your PCP Tate this week Physician to follow Patient: Tate Discharge Diet for Home: Cardiac Diet Patient Problems: Sepsis with Bacteremia: Resolved UTI RLL Pneumonia Pre DM CAD CHF HTN Goals for Patient: - Improved strength and stable gait - Safe ambulation Patient Data-Allergies,Ht & Wt Patient Allergies: Coded Allergies: Penicillins (Verified Allergy, Severe, HIVES, SOB, 01/04/18) codeine (Verified Allergy, Severe, SOB, HIVES, 01/04/18) Height (Feet): 5 Height (Inches): 5.00 Weight (Pounds): 211 Weight (Ounces): 0.0 Home Health Need/Face to Face Date of Face to Face: Feb 11, 2018 Clinical Findings: Muscle weakness, Shortness of breath, Unsteady gait I have seen Pt [id number]: Yes Discharged To: Home Diagnosis/Conditions: See Above Patient is Homebound due to: Reji fall risk due to instabilty, Muscle weakness , Shortness of breath/distress Homebound Status Due to the above stated illness, injury or surgical procedure (medical condition or diagnosis) and associated clinical findings, the patient is homebound because of his/her inability to leave home except with aid of a supportive device and/or person AND leaving the home requires a considerable and taxing effort or is medically contraindicated. Pt req the following assistanc: Aid of another person, Walker Home Health Nursing Orders Home Health Services Order: Nursing Services, Claims Examiner-Evaluate & Treat, Physical Therapy-Evaluate & Treat Therapy Orders Therapy Orders: OT (must have SN or PT order), PT to assess for OT Therapy Specific Orders: Eval assistive deivces, Teach enviro modifications/ safety, Gait training, Increase strength/endurance Certify Stmt I certify that this patient is under my care and that I, a nurse practitioner or a physician; a under water assistant working with me, had a face to face encounter that - meets the physician face to face encounter requirements with this patient as dated. NAE BERMEO MD Feb 11, 2018 14:55
[2018-02-11 18:30] VITALS: BP 139/65
--- NOTE | 2018-02-12 07:58 | Therapy Team Discharge Summary ---
Therapy Discharge Summary Discharge Recommendations Date of Discharge Feb 11, 2018 at 18:30 Therapy D/C Recommendations: Home w/ Family Support, Occupational Therapy Home Care, Scheduled Assistance Physical Therapy Patient and spouse report he is mainly in his w/c at home and ambulates minimally. If patient does dismiss to home, this PT recommends home health PT due to safety concerns due to high fall risk. Patient continues to require more assistance for mobility. Patient did not meet set goals, however, per spouse, is at PLOF with gross motor skills. Occupational Therapy Decreased Activ Tolerance, Dependent Transfers, Impaired I ADL's, Impaired Self- Care Skills PT Shelter Goals Shelter Goals PT Shelter Goals Time Frame: Feb 14, 2018 Transfers (B,C,W/C) (FIM): 6 Sit to Lying (QC): 6 Lying-Sitting on Side/Bed(QC): 6 Sit to Stand (QC): 6 Chair/Wmo-ww-Yfiws Xfer(QC): 6 Does the Patient Walk: Yes Gait (FIM): 6 Gait distance (FIM): 3=150 ft Walk 50ft with 2 Turns (QC): 6 Walk 150 ft (QC): 6 Gait Assistive Device: FWW OT Shelter Goals Shelter Goals Time Frame: Feb 21, 2018 Eating (FIM): 6 Eating (QC): 6 Groomin Oral Hygiene (QC): 5 Bathing(FIM): 4 Upper Body Dressing(FIM): 5 Lower Body Dressing(FIM): 5 Toileting(FIM): 6 Toileting Hygiene (QC): 6 Transfers (B,C,W/C) (FIM): 6 Toilet/Commode Transfer(FIM): 6 Toilet/Commode Transfer (QC): 6 Shower Transfer(FIM): 5 Additional Goals: 1-Demonstrate ADL Tasks, 2-Verbalize Understanding, 3- ImproveStrength/[place] 1=Demonstrate adherence to instructed precautions during ADL tasks. 2=Patient will verbalize/demonstrate understanding of assistive devices/ modifications for ADL. 3=Patient will improve strength/tolerance for activity to enable patient to perform ADL's. SIGRID PUGH PT Feb 12, 2018 07:58
--- NOTE | 2018-02-14 09:36 | Therapy Team Discharge Summary ---
Therapy Discharge Summary Discharge Recommendations Date of Discharge Feb 11, 2018 at 18:30 Therapy D/C Recommendations: Home w/ Family Support, Scheduled Assistance Occupational Therapy Pt. was evaluated and treated several times to work on pt's independence and strength. Pt. is able to transfer minimally with CGA/SBA. Pt. did not have a change to fully work on bathing and dressing, but at discharge, did require mod assist for donning socks. Pt. to discharge home with spouse and with caregiver support. [id number] Decreased Activ Tolerance, Dependent Transfers, Impaired I ADL's, Impaired Self- Care Skills PT Detention Goals Detention Goals PT Detention Goals Time Frame: Feb 14, 2018 Transfers (B,C,W/C) (FIM): 6 Sit to Lying (QC): 6 Lying-Sitting on Side/Bed(QC): 6 Sit to Stand (QC): 6 Chair/Lkp-ws-Cmozz Xfer(QC): 6 Does the Patient Walk: Yes Gait (FIM): 6 Gait distance (FIM): 3=150 ft Walk 50ft with 2 Turns (QC): 6 Walk 150 ft (QC): 6 Gait Assistive Device: FWW OT Detention Goals Detention Goals Time Frame: Feb 21, 2018 Eating (FIM): 6 (not met) Eating (QC): 6 (not met) Oral Hygiene (QC): 5 (not met) Grooming(FIM): 5 (not met) Bathing(FIM): 4 (not met) Upper Body Dressing(FIM): 5 (not met) Lower Body Dressing(FIM): 5 (not met) Toileting(FIM): 6 (not met) Toileting Hygiene (QC): 6 (not met) Transfers (B,C,W/C) (FIM): 6 (not met) Toilet/Commode Transfer(FIM): 6 (not met) Toilet/Commode Transfer (QC): 6 (not met) Shower Transfer(FIM): 5 (not met) Additional Goals: 1-Demonstrate ADL Tasks, 2-Verbalize Understanding, 3- ImproveStrength/[place] 1=Demonstrate adherence to instructed precautions during ADL tasks. 2=Patient will verbalize/demonstrate understanding of assistive devices/ modifications for ADL. 3=Patient will improve strength/tolerance for activity to enable patient to perform ADL's. ALFREDO STOVALL OT Feb 14, 2018 09:36
== END 2018-02-11 18:30 | disposition home health service (06) | DRG 194 ==
LOC: 4TH 09:43
PROVIDERS: ADMIT Family Medicine; ATTEND Family Medicine
DX: J18.9 Pneumonia, unspecified organism (principal); N39.0 Urinary tract infection, site not specified; J44.0 Chronic obstructive pulmonary disease with (acute) lower respiratory infection; I11.0 Hypertensive heart disease with heart failure; I50.9 Heart failure, unspecified; I25.10 Atherosclerotic heart disease of native coronary artery without angina pectoris; E78.00 Pure hypercholesterolemia, unspecified; R73.9 Hyperglycemia, unspecified; R26.81 Unsteadiness on feet; I70.201 Unspecified atherosclerosis of native arteries of extremities, right leg; I87.2 Venous insufficiency (chronic) (peripheral); G62.9 Polyneuropathy, unspecified; F03.90 Unspecified dementia, unspecified severity, without behavioral disturbance, psychotic disturbance, mood disturbance, and anxiety; K21.9 Gastro-esophageal reflux disease without esophagitis; M19.91 Primary osteoarthritis, unspecified site; F32.9 Major depressive disorder, single episode, unspecified; G47.30 Sleep apnea, unspecified; H40.9 Unspecified glaucoma; I25.2 Old myocardial infarction; Z99.81 Dependence on supplemental oxygen; Z87.891 Personal history of nicotine dependence; Z95.1 Presence of aortocoronary bypass graft; Z95.5 Presence of coronary angioplasty implant and graft; Z95.810 Presence of automatic (implantable) cardiac defibrillator; Z85.828 Personal history of other malignant neoplasm of skin
CPT/HCPCS: 36415; 80048; 82962; 85027; 94640; 94664; 94760; 94761

== ENCOUNTER → 2018-02-15 | Outpatient (CLI) | payer MEDICARE, MEDICAID ==
[~2018-02-15] MED LIST changes: +INSU100V5 SQ
[2018-02-15 09:06] LABS: BILIRUBIN,URINE NEGATIVE (NEGATIVE); CLARITY,URINE CLEAR; COLOR,URINE YELLOW; GLUCOSE, URINE (UA) NEGATIVE (NEGATIVE); KETONES,URINE NEGATIVE (NEGATIVE); LEUKOCYTE ESTERASE ,URINE 2+ (NEGATIVE); NITRITE,URINE NEGATIVE (NEGATIVE); PH,URINE 6 (5-9); PROTEIN,URINE 1+ (NEGATIVE); UROBILINOGEN,URINE NORMAL (NORMAL)
[2018-02-15 09:25] LABS: BACTERIA,URINE TRACE /HPF; SQUAMOUS EPITHELIAL CELL,UR RARE /HPF
== END ==
LOC: HH 02-14 08:00
PROVIDERS: ATTEND Internal Medicine
DX: N39.0 Urinary tract infection, site not specified (principal)
CPT/HCPCS: 81000; 87088

== ENCOUNTER 2018-06-08 14:00 | Inpatient (IN) | payer MEDICARE, MEDICAID ==
[~2018-06-08] VITALS: Ht 165.1 cm; Wt 85.4 kg
[~2018-06-08 14:00] MED LIST changes: +AMLO5TAB7 PO; -LOSA100T28 PO; +LOSA100T8 PO; -LOSA50TA36 PO; +LOSA50TA7 PO; -OXYC-197 PO; +OXYC1TAB87 PO; -POLY17PO23 PO; +POLY17PO31 PO; -SENN-140 PO; +SENN-141 PO
[2018-06-08 14:39] LABS: BILIRUBIN,URINE NEGATIVE (NEGATIVE); CLARITY,URINE SLIGHTLY CLOUDY; COLOR,URINE YELLOW; GLUCOSE, URINE (UA) NEGATIVE (NEGATIVE); KETONES,URINE NEGATIVE (NEGATIVE); LEUKOCYTE ESTERASE ,URINE 3+ (NEGATIVE); NITRITE,URINE NEGATIVE (NEGATIVE); PH,URINE 6.5 (5-9); PROTEIN,URINE 2+ (NEGATIVE); UROBILINOGEN,URINE NORMAL (NORMAL)
--- NOTE | 2018-06-08 14:39 | ED Abdominal Pain ---
General Chief Complaint: Abdominal/GI Problems Stated Complaint: STOMACH PAIN Source of Information: Patient Exam Limitations: No Limitations History of Present Illness Date Seen by Provider: Jun 08, 2018 Time Seen by Provider: 14:38 Initial Comments To ER complaint by his from home with reports of generalized abdominal pain for the past 2-3 days. No diarrhea or constipation, no nausea or vomiting. No fevers or chills. He does report urinary frequency. He was recently treated for urinary tract infection with a round of antibiotics (Levaquin) and finished those antibiotics on 05/30/18. Timing/Duration: 2-3 Days Severity/Quality: Moderate Location: Generalized Abdomen Radiation: No Radiation Activities at Onset: None Allergies and Home Medications Allergies Coded Allergies: Penicillins (Verified Allergy, Severe, HIVES, SOB, 01/04/18) codeine (Verified Allergy, Severe, SOB, HIVES, 01/04/18) Home Medications Albuterol Sulfate 18 Gm Hfa.aer.ad, 2 PUFF IH QID PRN for SHORTNESS OF BREATH, ( Reported) Albuterol Sulfate 1.25 Mg/3 Ml Vial.neb, 1.25 MG NEB BID, (Reported) Amiodarone HCl 200 Mg Tablet, 200 MG PO DAILY, (Reported) Amiodarone HCl 200 Mg Tablet, 200 MG PO SuWeSa@2000, (Reported) TAKES 200MG DOSE AT NIGHT THREE DAY A WEEK IN ADDITION TO 200MG EVERY MORNING. Amlodipine Besylate 5 Mg Tablet, 5 MG PO HS, (Reported) LAST FILLED 02/01/17 #90 Digoxin 125 Mcg Tablet, 125 MCG PO DAILY, (Reported) Esomeprazole Magnesium 40 Mg Capsule.dr, 40 MG PO DAILY, (Reported) Furosemide 40 Mg Tablet, 40 MG PO 0900,1500, (Reported) Insulin Determir 1,000 Units/10 Ml Soln, 10 UNIT SQ DAILY Prescribed by: NAE BERMEO on 02/11/18 1449 Metoprolol Tartrate 50 Mg Tablet, 25 MG PO BID, (Reported) TAKES 1/2 OF A (50 MG) TABLET Mexiletine HCl 150 Mg Cap, 150 MG PO TID, (Reported) Potassium Chloride 8 Meq Tablet.er, 16 MEQ PO DAILY, (Reported) TAKES 2 (8MEQ) TABLETS Patient Home Medication List Home Medication List Reviewed: Yes Review of Systems Review of Systems Constitutional: see HPI; No chills, No fever EENTM: No Symptoms Reported Respiratory: No Symptoms Reported Cardiovascular: No Symptoms Reported Gastrointestinal: See HPI, Abdominal Pain; Denies Constipated, Denies Diarrhea , Denies Nausea, Denies Vomiting Genitourinary: See HPI, Frequency Musculoskeletal: no symptoms reported Skin: no symptoms reported Psychiatric/Neurological: No Symptoms Reported Endocrine: No Symptoms Reported Past [id number] Hx Patient Social History Type Used: Cigarettes Former Smoker, Quit: Jul 30, 1992 2nd Hand Smoke Exposure: No Recent Foreign Travel: No Contact w/Someone Who Travel: No Recent Hopitalizations: No Immunizations Up To Date Tetanus Booster (TDap): More than 5yrs Date of Pneumonia Vaccine: Apr 29, 2014 Date of Influenza Vaccine: Jun 08, 2017 Seasonal Allergies Seasonal Allergies: No Past Medical History Surgeries: Yes Cardiac, CABG, Coronary Stent, Defibrillator, Eye Surgery, Joint Replacement, Orthopedic, Renal Respiratory: Yes (O2 3L/NC AT HS) Asthma, Pneumonia, Chronic Bronchitis, Sleep Apnea, COPD Currently Using CPAP: No Currently Using BIPAP: No Cardiac: Yes (CABG, DEFIBRILLATOR, CARDIAC CATHS-STENTS X2; CHF) Coronary Artery Disease, Heart Attack, High Cholesterol, Hypertension Neurological: Yes Dementia, Neuropathy Reproductive Disorders: Yes (unable to have children- mumps as a child) Sexually Transmitted Disease: No HIV/AIDS: No Genitourinary: Yes Bladder Infection, Kidney Stones Gastrointestinal: Yes Gastroesophageal Reflux, Ulcer Musculoskeletal: Yes (POOR MOBILITY) Arthritis, Fractures Endocrine: No HEENT: Yes Cataract, Glaucoma Loss of Vision: Bilateral Hearing Impairment: Hard of Hearing Cancer: Yes Skin What Type of Treatment Did You: Surgical Intervention Psychosocial: Yes Depression Integumentary: Yes (shingles , SKIN CANCER) Blood Disorders: No Adverse Reaction/Blood Tranf: No Family Medical History Cardiovascular disease 19 MOTHER G8 BROTHER G8 SISTER Cervical cancer 19 MOTHER No Pertinent Family Hx Physical Exam Vital Signs Capillary Refill : Height/Weight/BMI Height: 5'5.00" Weight: 211lbs. 0.0oz. 95.690416hg; 35.1 BMI Method:Stated General Appearance: WD/WN, no apparent distress HEENT: PERRL/EOMI, normal ENT inspection Respiratory: no respiratory distress, no accessory muscle use Cardiovascular: regular rate, rhythm, no murmur Gastrointestinal: normal bowel sounds, soft, tenderness (tender diffusely but no rebound. Abdomen is soft. Bowel sounds are normal.) Neurologic/Psychiatric: alert, normal mood/affect, oriented x 3 Skin: normal color, warm/dry Focused Exam Lactate Level 06/08/18 14:30: Lactic Acid Level 1.10 Lactic Acid Level Laboratory Tests Test 06/08/18 14:30 Lactic Acid Level 1.10 MMOL/L (0.50-2.00) Progress/Results/Core Measures Results/Orders Lab Results Laboratory Tests Test 06/08/18 14:13 06/08/18 14:30 Range/Units Urine Color YELLOW Urine Clarity SLIGHTLY CLOUDY Urine pH 6.5 5-9 Urine Specific Reeves 1.015 L 1.016-1.022 Urine Protein 2+ H NEGATIVE Urine Glucose (UA) NEGATIVE NEGATIVE Urine Ketones NEGATIVE NEGATIVE Urine Nitrite NEGATIVE NEGATIVE Urine Bilirubin NEGATIVE NEGATIVE Urine Urobilinogen NORMAL NORMAL MG/DL Urine Leukocyte Esterase 3+ H NEGATIVE Urine RBC (Auto) 4+ H NEGATIVE Urine RBC 5-10 H /HPF Urine WBC 10-25 H /HPF Urine Squamous Epithelial Cells NONE /HPF Urine Crystals NONE /LPF Urine Bacteria FEW H /HPF Urine Casts NONE /LPF Urine Mucus NEGATIVE /LPF Urine Culture Indicated YES White Blood Count 18.5 H 4.3-11.0 10^3/uL Red Blood Count 4.07 L 4.35-5.85 10^6/uL Hemoglobin 12.1 L 13.3-17.7 G/DL Hematocrit 38 L 40-54 % Mean Corpuscular Volume 92 80-99 FL Mean Corpuscular Hemoglobin 30 25-34 PG Mean Corpuscular Hemoglobin Concent 32 32-36 G/DL Red Cell Distribution Width 16.0 H 10.0-14.5 % Platelet Count 352 130-400 10^3/uL Mean Platelet Volume 9.9 7.4-10.4 FL Neutrophils (%) (Auto) 80 H 42-75 % Lymphocytes (%) (Auto) 10 L 12-44 % Monocytes (%) (Auto) 10 0-12 % Eosinophils (%) (Auto) 0 0-10 % Basophils (%) (Auto) 0 0-10 % Neutrophils # (Auto) 14.9 H 1.8-7.8 X 10^3 Lymphocytes # (Auto) 1.8 1.0-4.0 X 10^3 Monocytes # (Auto) 1.8 H 0.0-1.0 X 10^3 Eosinophils # (Auto) 0.0 0.0-0.3 10^3/uL Basophils # (Auto) 0.0 0.0-0.1 10^3/uL Neutrophils % (Manual) 83 % Lymphocytes % (Manual) 10 % Monocytes % (Manual) 7 % Eosinophils % (Manual) 0 % Basophils % (Manual) 0 % Band Neutrophils 0 % Blood Morphology Comment NORMAL Sodium Level 132 L 135-145 MMOL/L Potassium Level 5.0 3.6-5.0 MMOL/L Chloride Level 96 L 98-107 MMOL/L Carbon Dioxide Level 21 21-32 MMOL/L Anion Gap 15 H 5-14 MMOL/L Blood Urea Nitrogen 17 7-18 MG/DL Creatinine 1.40 H 0.60-1.30 MG/DL Estimat Glomerular Filtration Rate 49 BUN/Creatinine Ratio 12 Glucose Level 102 70-105 MG/DL Lactic Acid Level 1.10 0.50-2.00 MMOL/L Calcium Level 10.0 8.5-10.1 MG/DL Corrected Calcium 10.4 H 8.5-10.1 MG/DL Total Bilirubin 0.4 0.1-1.0 MG/DL Aspartate Amino Transf (AST/SGOT) 33 5-34 U/L Alanine Aminotransferase (ALT/SGPT) 23 0-55 U/L Alkaline Phosphatase 79 40-136 U/L Total Protein 9.0 H 6.4-8.2 GM/DL Albumin 3.5 3.2-4.5 GM/DL Lipase 29 8-78 U/L My Orders Orders - KARLA CHAN BOILER ERECTOR Lipase (06/08/18 14:32) Ua Culture If Indicated (06/08/18 14:32) Cbc With Automated Diff (06/08/18 14:32) Comprehensive Metabolic Panel (06/08/18 14:32) Iv Heplock-Insert (Order) (06/08/18 14:32) Blood Culture (06/08/18 14:32) Lactic Acid Analyzer (06/08/18 14:32) Ct Abdomen/Pelvis Wo (06/08/18 14:32) Urine Culture (06/08/18 14:13) Manual Differential (06/08/18 14:30) Ceftriaxone For Iv Use (Rocephin For I (06/08/18 15:45) Medications Given in ED Current Medications Medications Dose Ordered Sig/Re Route Start Time Stop Time Status Last Admin Dose Admin Ceftriaxone Sodium 1000 mg/ Sodium Chloride 50 ml @ 100 mls/hr ONCE ONCE IV 06/08/18 15:45 06/08/18 16:14 06/08/18 15:49 100 MLS/HR Diagnostic Imaging Diagonstic Imaging: CT Comments NAME: SRI PEOPLES [facility] REC#: [id number] PT STATUS: REG ER : 1940 PHYSICIAN: KARLA CHAN BOILER ERECTOR ADMIT DATE: 06/08/18/ER Draft Date of Exam:06/08/18 CT ABDOMEN/PELVIS WO PROCEDURE: CT abdomen and pelvis without contrast. TECHNIQUE: Multiple contiguous axial images were obtained through the abdomen and pelvis without the use of intravenous contrast. INDICATION: Abdominal pain. FINDINGS: The previous CT aorta exam of 07/10/2016 failed to show any sign of an acute abnormality. There was atherosclerotic disease of both common iliac arteries, however. In the interval since the previous study, numerous calcifications have developed within the left kidney. 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 Furthermore, there is now obstruction of the left collecting system due to 2 or 3 prominent calculi within the proximal left ureter. The calculi measure approximately 10 and 20 mm in maximum longitudinal dimension. The cysts associated with the left kidney, seen previously, are again evident and slightly greater in size. There is no evidence for obstruction of the right collecting system. The cyst on the lateral aspect of the right kidney, seen previously, is essentially no different. The liver, spleen, gallbladder, adrenals, pancreas, aorta and inferior vena cava show no sign of an acute abnormality. The 1.3 x 2.2 cm fatty lesion associated with the right adrenal gland, seen previously, is again evident and no different. 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 The stomach is not well-distended and consequently difficult to assess. In the interval since the previous exam a 1.4 x 2.2 cm calculus has developed in the base of the bladder. The bladder is otherwise unremarkable. The prostate gland is not enlarged. There is no pelvic mass or free fluid collection noted. The appendix was visualized and is not abnormally thickened. The bone windows show no sign of an acute fracture. There does appear to be a long-standing compression deformity of T12 and there is mild anterior wedging of T11. There are also bilateral pars defects at L5 with a grade 1 spondylolisthesis of L5 with respect to S1. The lung bases are clear. There is mild compressive atelectasis adjacent to the elevated right hemidiaphragm. The heart is enlarged and there is a pacemaker in place. IMPRESSION: 1. There is a high-grade obstruction of the left collecting system due to two large calculi within the proximal left ureter. There is also a newly developed 1.4 x 2.2 cm bladder calculus. 2. There is no acute abnormality of the abdomen or pelvis noted otherwise. Dictated on workstation # [id number] Dict: 06/08/18 1525 Trans: 06/08/[address] [facility] [id number] Interpreted by: RIO MELTON MD Electronically signed by: Departure Communication (Admissions) Time/Spoke to Admitting Phy: 16:[address] Ely who recommends either admission here for IV antibiotics and possible transfer later if the patient condition worsens or he could place a ureteral stent and/or lithotripsy Sunday night or Sunday but he is currently out of town. I then spoke with primary care doctor Charanjit. She would like the patient to go ahead and be transferred today for urology is available given his pre-existing chronic kidney disease. 1612- I spoke with María one call, they will call back. I then went and relayed the plan to the patient and his . They state they have no way to get to [place] even if I transported by ambulance the would be unable to make it to [place]. They state they want to stay here. They have had Dr. Ely intervene on a stone before and were very pleased with him. I discussed with him the risks of staying here without having urology at this time and they are understanding of this risk and wishes to proceed with admission here and not transfer. I then called maría Biggs back to notify them that patient refuses transfer. Impression Primary Impression: Left ureteral calculus Additional Impression: Pyelonephritis Disposition: ADMITTED INPATIENT Condition: Stable Admissions Decision to Admit Reason: Admit from ER (General) Decision to Admit/Date: Jun 08, 2018 Time/Decision to Admit Time: 16:14 Departure-Patient Inst. Referrals: ABHINAV GONZALEZ MD (PCP/Family) Primary Care Physician KARLA CHAN APRN Jun 08, 2018 14:39
--- OUTSIDE RECORDS SUMMARY | 2018-06-08 14:40 | XMS REPORT ---
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.10 Active [id number] Problem Chronic congestive heart failure, unspecified congestive heart failure type I50.9 Active 41335814 Problem Type 2 diabetes mellitus without complications E11.9 Active 556617918 Problem half-way current use of insulin Z79.4 Active 937953671 Problem Stasis dermatitis of both legs I87.2 Active 87445372 Problem Chronic obstructive pulmonary disease, unspecified COPD type J44.9 Active 42718188 Problem Other atherosclerosis of yuhaaviatam arteries of extremities, 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 Active 27959411 Problem Ventricular arrhythmia I49.9 Active 72655381 ALLERGIES Substance Reaction Event Type Date Status Penicillin V Potassium rash Drug Allergy Apr, Active Codeine Phosphate Unknown Drug Allergy Apr, Active ENCOUNTERS Encounter Location Date Diagnosis [facility] [address] [address] Apr, [facility] [id number] [place] [address] 5748 Apr, Type 2 diabetes mellitus without complications E11.9 ; Flank pain R10.9 ; Essential hypertension I10 and Coronary artery disease 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.10 [facility] [address] [address] Apr, Dysuria R30.0 [facility] [id number] [place] [address] 86762- 1102 Apr, Acute cystitis without hematuria N30.00 ; Encounter for immunization Z23 and BMI 40.0-44.9, adult Z68.41 [facility] [id number] [place] [address]134- 5626 Apr, [facility] [address] [address] Mar, [facility] [id number] [place] [address] 163074- 2613 Mar, [facility] [id number] [place] [address] 52843- 5809 Feb, [facility] [id number] [place] [address] 13893- 6753 Feb, [facility] [id number] [place] [address] 27108- 9620 Feb, [facility] [id number] [place] [address] 56362- 5041 Jan, [facility] [id number] [place] [address] 38903- 1585 Jan, [facility] [address] [address] Jan, Acute cystitis with hematuria N30.01 and Dysuria R30.0 [facility] [address] [address] Jan, [facility] [address] [address] Jan, [facility] [id number] [address] Jan, [facility] [address] [address] Jan, Type 2 diabetes mellitus without complications E11.9 ; 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 ; History of respiratory failure Z87.09 and History of sepsis Z86.19 [facility] [id number] [address] 17 Jan, 2018 [facility] [address], [place] [address] Jan, [facility] [address], [place] [address] Jan, [facility] [address], [place] [address] Jan, [facility] [address] [address] Jan, [facility] [address] [address] Dec, [facility] [address], [place] [address] November, Acute cystitis without hematuria N30.00 [facility] [address] [address] November, Acute cystitis without hematuria N30.00 [facility] [address] [address] November, [facility] [id number] [address] Oct, Medicare annual wellness visit, initial Z00.00 ; Encounter for immunization Z23 ; Chronic obstructive pulmonary disease, unspecified COPD type J44.9 ; Coronary artery disease 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.10 ; Chronic congestive heart failure, unspecified congestive heart failure type I50.9 ; Essential hypertension I10 ; Ventricular arrhythmia I49.9 and Other atherosclerosis of yuhaaviatam arteries of extremities, 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 [facility] [id number] [address] Sep, Chronic congestive heart failure, unspecified congestive heart failure type I50.9 [facility] [address], [place] [address] Aug, [facility] [id number] [place] [address] 29158- 2033 Aug, Chronic congestive heart failure, unspecified congestive heart failure type I50.9 ; Chronic obstructive pulmonary disease, unspecified COPD type J44.9 and Bilateral impacted cerumen H61.23 [facility] [id number] [place] [address] 57080- 5870 Jul, [facility] [id number] [place] [address] 90493- 6532 Jul, [facility] [id number] [place] [address] 82387- 9251 Jun, [facility] [id number] [place] [address] 60080- 0579 Jun, [facility] [id number] [place] [address] 67926- 0542 Jun, Coronary artery disease 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.10 [facility] [id number] [place] [address] 42616- 3502 Jun, [facility] [id number] [place] [address] 11287- 4253 May, Chronic obstructive pulmonary disease, unspecified COPD type J44.9 and History of pneumonia Z87.01 [facility] [id number] [place] [address] [id number] May, [facility] [id number] [place] [address] 54157- 0438 May, [facility] [id number] [place] [address] 00121- 1992 May, [facility] [id number] [place] [address] 70346- 8576 May, [facility] [id number] [place] [address] 27560- 1654 Apr, [place] [facility] [id number] [place] [address] 22344- 9977 Apr, Coronary artery disease 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.10 and Ventricular arrhythmia I49.9 [facility] [id number] [place] [address] 80757- 9564 Apr, [facility] [id number] [place] [address] 17695- 5645 Apr, [facility] [id number] [place] [address] 73107 -8039 Apr, Dysuria R30.0 and Acute cystitis without hematuria N30.00 [facility] [id number] [place] [address] 67695- 6470 Feb, Epistaxis R04.0 and Chronic obstructive pulmonary disease, unspecified COPD type J44.9 [facility] [id number] [place] [address] 23839- 4197 Jan, Fall from other pedestrian conveyance, initial encounter V00.891A [facility] [id number] [place] [address] 35659- 9678 Jan, Chronic congestive heart failure, unspecified congestive heart failure type I50.9 ; Chronic obstructive pulmonary disease, unspecified COPD type J44.9 and Stasis dermatitis of both legs I87.2 [facility] [id number] [place] [address] 96816- 3432 November, Chronic congestive heart failure, unspecified congestive heart failure type I50.9 [facility] [id number] [place] [address] 21796- 8490 November, Coronary artery disease 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.10 ; Chronic congestive heart failure, unspecified congestive heart failure type I50.9 and Chronic obstructive pulmonary disease, unspecified COPD type J44.9 [facility] [id number] [place] [address] 92695574- 3504 Oct, [facility] [address] [id number] [address] 7787 Oct, [facility] [address] [id number] [id number] Oct, [facility] [address] [id number] [id number] Sep, Via [facility] [address] [place] [id number] Sep, Essential hypertension I10 and Chronic congestive heart failure, unspecified congestive heart failure type I50.9 [facility] [id number] [id number] Sep, [facility] [address] [facility] [id number], [place] [address]- 7606 Sep, [facility] [address], [place] [address]- 1183 Jun, [facility] [id number] [address]- 9814 Jun, [facility] [address], [place] [address]- 1403 May, [facility] [id number], [place] [address]- 9042 May, [facility] [address] [id number] [address]- 0515 May, [facility] [address] [id number], [place] [address] 2543 May, [facility] [address] [facility] [id number] [address]- 3341 May, Chronic congestive heart failure, unspecified congestive heart failure type I50.9 [facility] [address] [id number], [place] [address] May, Pain of right lower extremity M79.604 ; History of atrial fibrillation without current medication Z86.79 and Acute deep vein thrombosis ( DVT) of femoral vein of right lower extremity I82.411 [facility] [address] [facility] [id number] [address]- 5641 May, [facility] [address] [facility] [id number], [place] [address]- 2277 Feb, [facility] [address] [facility] [id number], [place] [address]- 3933 Feb, Coronary artery disease 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 PT finished the antibiotics but has still been having dysuira. Notes burning and pain. -Laith [facility]LLINS PLAN OF CARE VITAL SIGNS Height 65 in 2018-05-22 Weight 187.9 lbs 2018-05-22 Heart Rate 89 bpm 2018-05-22 Respiratory Rate 20 2018-05-22 Oximetry w/ oxygen @ 2L:94 % 2018-05-22 BMI 31.26 kg/m2 2018-05-22 Blood pressure systolic 146 mmHg 2018-05-22 Blood pressure diastolic 82 mmHg 2018-05-22 MEDICATIONS Medication Instructions Dosage Frequency Start Date End Date Duration Status Amiodarone HCl 200 mg Orally Once a day 1 tablet 24h Active Oxygen Active Amiodarone HCl 200 mg Orally three times a week on Sun, Sun, Sun. in addition to daily dose 2 tablets at 1999 Active Nebulizer - as directed May, Active Nexium 40 mg Orally Once a day 1 capsule 24h 30 days Active Albuterol Sulfate 1.25 INHALE ONE VIAL VIA NEBULIZER BY MOUTH TWICE A DAY INSTRUCTED 25 Active Klor-Con 8 MEQ Orally Once a day 2 capsules 24h May, 30 days Active Amlodipine Besylate 5 MG Orally Once a day 1 tablet 24h Active Levaquin 500 mg Orally Once a day 1 tablet 24h Jan, 7 days Active Wheelchair - to use for Mobility 24h Aug, Active Metoprolol Tartrate 50 mg Orally Twice a day 1/2 tablets in the am, and pm 12h Active Albuterol Sulfate 1.25 MG/3ML Inhalation 2 times a day as directed 12h 30 May, 2017 Active Furosemide 40 mg Orally twice a day 1 tablet 12h Active Potassium Chloride 8mg Orally Once a day as directed 24h Active Digoxin 125 mcg Orally Once a day 1 tablet 24h 30 days Active RESULTS No Results PROCEDURES Procedure Date Ordered Result Body Site GLYCATED HEMOGLOBIN TEST May 22, 2018 MICROALBUMIN, SEMIQUANT May 22, 2018 VENIPUNCT, ROUTINE* May 22, 2018 [facility] VISIT ESTABLISHED PATIENT May 22, 2018 URINALYSIS, AUTO, W/O SCOPE May 22, 2018 [facility], 2018 INSTRUCTIONS MEDICATIONS ADMINISTERED No Known Medications MEDICAL (GENERAL) HISTORY Type Description Date Medical History hypertension Medical History skin cancer-arms, face Medical History [place] Medical History Pneumonia Surgical History heart cath-2 stents, multiple balloons Surgical History open heart surgery 1987 Surgical History defibrillator placed 2013 Hospitalization History surgery Hospitalization History pneumonia 2014 Hospitalization History broken left hip at September Hospitalization History Bronchitis/clinical Pneumonia,hypoxia,sepsis - [facility] [place] 06/21/17 Hospitalization History [facility]- Cardiomyopathy, Defibrillator discharge 01/04/2018 Hospitalization History CHF 02/09/2018
--- OUTSIDE RECORDS SUMMARY | 2018-06-08 14:40 | XMS REPORT ---
Author Author TIFFANY SANCHEZ Organization [facility] Address [address] [place] [address] Care Team Providers Care Quill Stripper Name Role Phone TIFFANY SANCHEZ Unavailable PROBLEMS Type Condition ICD9-CM Code [id number] Code Onset Dates Condition Status SNOMED Code Problem Cardiac defibrillator in place Z95.810 Active 048391949 Problem Essential hypertension I10 Active 62094937 Problem Coronary artery disease involving skagway coronary artery of skag[place] heart without angina pectoris I25.10 Active 5046109135540 Problem Chronic congestive heart failure, unspecified congestive heart failure type I50.9 Active 29618034 Problem Type 2 diabetes mellitus without complications E11.9 Active 160816692 Problem prison current use of insulin Z79.4 Active 003989950 Problem Stasis dermatitis of both legs I87.2 Active 89977073 Problem Chronic obstructive pulmonary disease, unspecified COPD type J44.9 Active 64254359 Problem Other atherosclerosis of sk[place] arteries of extremities, 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 Active 14947685 Problem Ventricular arrhythmia I49.9 Active 40646973 ALLERGIES No Information ENCOUNTERS Encounter Location Date Diagnosis [place] [id number] [place] [address] 87341- 5286 Apr, [place] [id number] [place] [address] 53138- 0300 Apr, Type 2 diabetes mellitus without complications E11.9 ; Flank pain R10.9 ; Essential hypertension I10 and Coronary artery disease involving sk[place] coronary artery of skag[place] heart without angina pectoris I25.10 [facility] [id number] [place] [address] 10373- 0937 Apr, Dysuria R30.0 [place] [id number] [place] [address] 86729- 6682 16 Apr, 2018 Acute cystitis without hematuria N30.00 ; Encounter for immunization Z23 and BMI 40.0-44.9, adult Z68.41 [facility] [address] [address] 4646 Apr, [facility] [id number] [place] [address] 42327- 9867 Mar, [facility] [id number] [place] [address] 94543- 4333 Mar, [facility] [id number] [place] [address] 75289- 8329 Feb, [facility] [id number] [place] [address] 23308- 3887 Feb, [facility] [id number] [place] [address] 61124- 2147 Feb, [facility] [id number] [place] [address] 14249- 5955 Jan, [facility] [id number] [place] [address] 00959- 6711 Jan, [facility] [id number] [place] [address] 47295- 9114 Jan, Acute cystitis with hematuria N30.01 and Dysuria R30.0 [facility] [id number] [place] [address] 41317- 4096 Jan, [facility] [id number] [place] [address] 14186- 4018 Jan, [facility] [address] [place] [address] 36190- 6705 Jan, [facility] [id number] [place] [address] 85863- 2535 Jan, Type 2 diabetes mellitus without complications E11.9 ; 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 ; History of respiratory failure Z87.09 and History of sepsis Z86.19 [facility] [address] [address] 2568 Jan, [facility] [address], [place] [address] 2601 Jan, [facility] [address], [place] [address] 3516 Jan, [facility] [address], [place] [address]- 6264 Jan, [facility] [id number] [place] [address] 69967- 2712 Jan, [facility] [address], [place] [address]- 5609 Dec, [facility] [address], [place] [address] November, Acute cystitis without hematuria N30.00 [facility] [address], [place] [address] November, Acute cystitis without hematuria N30.00 [facility] [address], [place] [address] 3315 November, [facility] [address], [place] [address]- 7439 Oct, Medicare annual wellness visit, initial Z00.00 ; Encounter for immunization Z23 ; Chronic obstructive pulmonary disease, unspecified COPD type J44.9 ; Coronary artery disease involving skagway coronary artery of skagway heart without angina pectoris I25.10 ; Chronic congestive heart failure, unspecified congestive heart failure type I50.9 ; Essential hypertension I10 ; Ventricular arrhythmia I49.9 and Other atherosclerosis of skagway arteries of extremities, 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 [facility] [address], [place] [address]- 7442 Sep, Chronic congestive heart failure, unspecified congestive heart failure type I50.9 [facility] [address], [place] [address] 9818 Aug, [facility] [address], [place] [address]- 1119 Aug, Chronic congestive heart failure, unspecified congestive heart failure type I50.9 ; Chronic obstructive pulmonary disease, unspecified COPD type J44.9 and Bilateral impacted cerumen H61.23 [facility] [address], [place] [address]- 4671 Jul, [facility] [id number] [place] [address] 83101- 2835 Jul, [facility] [address], [place] [address]- 2405 Jun, [facility] [id number] [place] [address] 41009- 5853 Jun, [facility] [address], [place] [address]- 9552 Jun, Coronary artery disease involving skagway coronary artery of skagway heart without angina pectoris I25.10 [facility] [address], [place] [address]- 7515 Jun, [facility] [address] [place] [address] 98029- 6578 May, Chronic obstructive pulmonary disease, unspecified COPD type J44.9 and History of pneumonia Z87.01 [facility] [id number] [address] May, [facility] [address], [place] [address]- 7187 May, [facility] [address], [place] [address]- 1305 May, [facility] [address], [place] [address]- 5748 May, [facility] [id number], [place] [address]- 0068 Apr, [facility] [id number] [address]- 2749 Apr, Coronary artery disease involving skagway coronary artery of skagway heart without angina pectoris I25.10 and Ventricular arrhythmia I49.9 [facility] [address] [place] [address] 42575- 5895 Apr, [facility] [id number] [place] [address] 04824- 1803 Apr, [facility] [id number] [place] [address] 35157 -7439 Apr, Dysuria R30.0 and Acute cystitis without hematuria N30.00 [place] [id number] [place] [address] 26611- 0290 Feb, Epistaxis R04.0 and Chronic obstructive pulmonary disease, unspecified COPD type J44.9 [place] [id number] [place] [address] 86757- 1203 Jan, Fall from other pedestrian conveyance, initial encounter V00.891A [place] [id number] [place] [address] 66555- 9368 Jan, Chronic congestive heart failure, unspecified congestive heart failure type I50.9 ; Chronic obstructive pulmonary disease, unspecified COPD type J44.9 and Stasis dermatitis of both legs I87.2 [place] [address], [place] [address]- 6116 November, Chronic congestive heart failure, unspecified congestive heart failure type I50.9 [place] [address] [place] [address] 63411- 8270 November, Coronary artery disease involving skagway coronary artery of skagway heart without angina pectoris I25.10 ; Chronic congestive heart failure, unspecified congestive heart failure type I50.9 and Chronic obstructive pulmonary disease, unspecified COPD type J44.9 [facility] [address], [place] [address]- 0218 Oct, [place] [id number] [address]- 0110 Oct, [facility] [address] [id number] [id number] Oct, [facility] [id number] [address] Sep, Via [facility] [address] [place] [id number] Sep, Essential hypertension I10 and Chronic congestive heart failure, unspecified congestive heart failure type I50.9 [facility] [address] [id number] [address] Sep, [facility] [address], [place] [address]- 4615 Sep, [facility] [address], [place] [address]- 3630 Jun, [facility] [address], [place] [address]- 2755 Jun, [facility] [address], [place] [address]- 9338 May, [facility] [address], [place] [address]- 7202 May, [facility] [address], [place] [address]- 0743 May, [facility] [address], [place] [address]- 3498 May, [facility] [address] [id number], [place] [address]- 0785 May, Chronic congestive heart failure, unspecified congestive heart failure type I50.9 [facility] [address] [facility] [id number] [address] May, Pain of right lower extremity M79.604 ; History of atrial fibrillation without current medication Z86.79 and Acute deep vein thrombosis ( DVT) of femoral vein of right lower extremity I82.411 [facility] [address] [facility] [id number] [place] [address]- 1852 May, [facility] [address] [facility] [id number], [place] [address]- 3609 Feb, [facility] [address] [facility] [id number] [place] [address]- 5910 Feb, Coronary artery disease involving skagway coronary artery of skagway heart without angina pectoris I25.10 ; Chronic congestive heart failure, unspecified congestive heart failure type I50.9 ; Cardiac defibrillator in place Z95.810 and Candidiasis B37.9 IMMUNIZATIONS No Known Immunizations SOCIAL HISTORY Never Assessed REASON FOR VISIT Medication question PLAN OF CARE VITAL SIGNS MEDICATIONS Unknown Medications RESULTS No Results PROCEDURES No Known procedures INSTRUCTIONS MEDICATIONS ADMINISTERED No Known Medications MEDICAL (GENERAL) HISTORY Type Description Date Medical History hypertension Medical History skin cancer-arms, face Medical History [place] Medical History Pneumonia Surgical History heart cath-2 stents, multiple balloons Surgical History open heart surgery 1987 Surgical History defibrillator placed 2013 Hospitalization History surgery Hospitalization History pneumonia 2014 Hospitalization History broken left hip at September Hospitalization History Bronchitis/clinical Pneumonia,hypoxia,sepsis - Via [facility] 06/21/17 Hospitalization History [facility]- Cardiomyopathy, Defibrillator discharge 01/04/2018 Hospitalization History CHF 02/09/2018
--- OUTSIDE RECORDS SUMMARY | 2018-06-08 14:40 | XMS REPORT ---
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 Active 2386976065031 Problem Chronic congestive heart failure, unspecified congestive heart failure type I50.9 Active 92342781 Problem Type 2 diabetes mellitus without complications E11.9 Active 478182185 Problem 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 Active 103549170 Problem Stasis dermatitis of both legs I87.2 Active 30508654 Problem Chronic obstructive pulmonary disease, unspecified COPD type J44.9 Active 69121873 Problem Other atherosclerosis of shoshone-bannock arteries of extremities, 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 Active 95906651 Problem Ventricular arrhythmia I49.9 Active 76430445 ALLERGIES No Information ENCOUNTERS Encounter Location Date Diagnosis [place] [address] [place] [address] 25135- 3818 Apr, [place] [id number] [place] [address] 91911- 7688 Apr, Dysuria R30.0 [place] [id number] [place] [address] 52027- 8410 Apr, Acute cystitis without hematuria N30.00 ; Encounter for immunization Z23 and BMI 40.0-44.9, adult Z68.41 [place] [id number] [place] [address] 16787- 2645 Apr, [place] [address] 9[address]39- 8668 Mar, [facility] [address], [place] [address]- 7056 Mar, [facility] [address] 5396 Feb, [facility] [address], [place] [address]- 2943 Feb, [facility] [address] [place] [address] 37848- 6849 Feb, [facility] [address] [place] [address] 96788- 7477 Jan, [facility] [address] [place] [address] 17855- 0208 Jan, [facility] [id number] [place] [address] 65911- 0046 Jan, Acute cystitis with hematuria N30.01 and Dysuria R30.0 [facility] [address], [place] [address]- 7873 Jan, [facility] [address], [place] [address]- 3358 Jan, [facility] [address], [place] [address]- 6827 Jan, [facility] [address], [place] [address]- 6714 Jan, Type 2 diabetes mellitus without complications E11.9 ; 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 ; History of respiratory failure Z87.09 and History of sepsis Z86.19 [facility] [address], [place] [address]- 3405 Jan, [facility] [address], [place] [address]- 5673 Jan, [facility] [address], [place] [address]- 4454 Jan, [facility] [id number], [place] [address]- 3192 Jan, [facility] [address] 8243 Jan, [facility] [address], [place] [address]- 3353 Dec, [facility] [address] [place] [address] 34367 -8687 November, Acute cystitis without hematuria N30.00 [facility] [address] [place] [address] 70439 -8320 November, Acute cystitis without hematuria N30.00 [facility] [address], [place] [address]- 6542 November, [facility] [address], [place] [address]- 2117 Oct, Medicare annual wellness visit, initial Z00.00 ; Encounter for immunization Z23 ; Chronic obstructive pulmonary disease, unspecified COPD type J44.9 ; 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 ; Chronic congestive heart failure, unspecified congestive heart failure type I50.9 ; Essential hypertension I10 ; Ventricular arrhythmia I49.9 and Other atherosclerosis of shosh[place]-bannock arteries of extremities, 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 [place] [id number] [address]- 7230 Sep, Chronic congestive heart failure, unspecified congestive heart failure type I50.9 [place] [id number] [address]- 0634 Aug, [place] [address] [place] [address] 23265- 4558 Aug, Chronic congestive heart failure, unspecified congestive heart failure type I50.9 ; Chronic obstructive pulmonary disease, unspecified COPD type J44.9 and Bilateral impacted cerumen H61.23 [facility] [address], [place] [address]- 4333 Jul, [facility] [id number] [place] [address] 45898- 2571 Jul, [facility] [id number] [place] [address] 24961- 4865 Jun, [facility] [id number] [place] [address] 94211- 7576 Jun, [facility] [id number] [place] [address] 82635- 7040 Jun, 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 [facility] [id number] [place] [address] 73529- 5515 Jun, [facility] [id number] [place] [address] 48322- 1286 May, Chronic obstructive pulmonary disease, unspecified COPD type J44.9 and History of pneumonia Z87.01 [facility] [address] [place] [address] [id number] May, [facility] [address] [place] [address] 29064- 1829 May, [facility] [address] [place] [address] 19022- 0108 May, [facility] [address] [place] [address] 16190- 3205 May, [facility] [address], [place] [address]- 4486 Apr, [facility] [id number] [place] [address] 52211- 8995 Apr, 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 and Ventricular arrhythmia I49.9 [facility] [id number] [place] [address] 86534- 5495 Apr, [facility] [id number], [place] [address]- 1860 Apr, [facility] [address] [place] [address] 35659 -2168 Apr, Dysuria R30.0 and Acute cystitis without hematuria N30.00 [facility] [address] [place] [address] 01950- 6048 Feb, Epistaxis R04.0 and Chronic obstructive pulmonary disease, unspecified COPD type J44.9 [facility] [id number] [place] [address] 32334- 1088 Jan, Fall from other pedestrian conveyance, initial encounter V00.891A [facility] [id number] [place] [address] 28350- 1354 Jan, Chronic congestive heart failure, unspecified congestive heart failure type I50.9 ; Chronic obstructive pulmonary disease, unspecified COPD type J44.9 and Stasis dermatitis of both legs I87.2 [facility] [address], [place] [address]- 6382 November, Chronic congestive heart failure, unspecified congestive heart failure type I50.9 [facility] [address] [place] [address] 73389- 7013 November, 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 ; Chronic congestive heart failure, unspecified congestive heart failure type I50.9 and Chronic obstructive pulmonary disease, unspecified COPD type J44.9 [facility] [address] [address]- 6579 Oct, [facility] [id number] [place] [address] 06952- 7043 Oct, [facility] [id number] [place] [address] [id number] Oct, [facility] [id number] [place] [address] [id number] Sep, Via [facility] [address] [place] [id number] Sep, Essential hypertension I10 and Chronic congestive heart failure, unspecified congestive heart failure type I50.9 [facility] [id number] [address] Sep, [facility] [address], [place] [address]- 8233 Sep, [facility] [address], [place] [address]- 0537 Jun, [facility] [address], [place] [address]- 1297 Jun, [facility] [address], [place] [address]- 7202 May, [facility] [address], [place] [address]- 3452 May, [facility] [address], [place] [address]- 7083 May, [facility] [address] [address]- 4527 May, [facility] [id number] [address]- 4697 May, Chronic congestive heart failure, unspecified congestive heart failure type I50.9 [facility] [id number], [place] [address]206 May, Pain of right lower extremity M79.604 ; History of atrial fibrillation without current medication Z86.79 and Acute deep vein thrombosis ( DVT) of femoral vein of right lower extremity I82.411 [facility] [id number] [address]- 1041 May, [facility] [address] [address]- 7766 Feb, [facility] [address] [facility] [id number] [place] [address]- 0711 Feb, 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 ; Chronic congestive heart failure, unspecified congestive heart failure type I50.9 ; Cardiac defibrillator in place Z95.810 and Candidiasis B37.9 IMMUNIZATIONS No Known Immunizations SOCIAL HISTORY Never Assessed REASON FOR VISIT request call back PLAN OF CARE VITAL SIGNS MEDICATIONS Unknown Medications RESULTS No Results PROCEDURES No Known procedures INSTRUCTIONS MEDICATIONS ADMINISTERED No Known Medications MEDICAL (GENERAL) HISTORY Type Description Date Medical History hypertension Medical History skin cancer-arms, face Medical History [place] Medical History Pneumonia Surgical History heart cath-2 stents, multiple balloons Surgical History open heart surgery 1987 Surgical History defibrillator placed 2013 Hospitalization History surgery Hospitalization History pneumonia 2014 Hospitalization History broken left hip at September Hospitalization History Bronchitis/clinical Pneumonia,hypoxia,sepsis - Via [facility] 06/21/17 Hospitalization History [facility] [place], operated by [facility]- Cardiomyopathy, Defibrillator discharge 01/04/2018 Hospitalization History CHF 02/09/2018
--- OUTSIDE RECORDS SUMMARY | 2018-06-08 14:40 | XMS REPORT ---
Author Author ABHINAV GONZALEZ [facility] Address [address] [place] [address] Care Team Providers Care Automatic Punch Press Operator Name Role Phone ABHINAV GONZALEZ Unavailable PROBLEMS Type Condition ICD9-CM Code [id number] Code Onset Dates Condition Status SNOMED Code Problem Cardiac defibrillator in place Z95.810 Active 773983876 Problem Essential hypertension I10 Active 15330874 Problem Coronary artery disease involving [place] coronary artery of [place] heart without angina pectoris I25.10 Active [id number] Problem Chronic congestive heart failure, unspecified congestive heart failure type I50.9 Active 33722937 Problem Type 2 diabetes mellitus without complications E11.9 Active 166792502 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.4 Active 413099717 Problem Stasis dermatitis of both legs I87.2 Active 17805049 Problem Chronic obstructive pulmonary disease, unspecified COPD type J44.9 Active 78874786 Problem Other atherosclerosis of [place] arteries of extremities, 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 Active 41508776 Problem Ventricular arrhythmia I49.9 Active 47773169 ALLERGIES No Information ENCOUNTERS Encounter Location Date Diagnosis [facility] [address], [place] [address] Mar, [facility] [address], [place] [address] Mar, [facility] [address] [place] [address] 46547- 9837 Feb, [facility] [id number] [place] [address] 81991- 5577 Feb, [facility] [address], [place] [address] 2[address] Feb, [facility] [id number] [place] [address] 11117- 9293 Jan, [facility] [address], [place] [address] 65[address] Jan, [facility] [address], [place] [address] 9447 Jan, Acute cystitis with hematuria N30.01 and Dysuria R30.0 [facility] [id number] [place] [address] 26025- 9434 Jan, [facility] [address], [place] [address] 8727 Jan, [facility] [id number] [place] [address] 34951- 2953 Jan, [facility] [address], [place] [address] 49[address] Jan, Type 2 diabetes mellitus without complications E11.9 ; assisted current use of insulin Z79.4 ; History of respiratory failure Z87.09 and History of sepsis Z86.19 [facility] [address], [place] [address] 4[address] Jan, [facility] [address], [place] [address] 3180 Jan, [facility] [address], [place] [address] 3042 Jan, [facility] [address], [place] [address] 5221 Jan, [facility] [address], [place] [address] 3727 Jan, [facility] [address], [place] [address] 6083 Dec, [facility] [address], [place] [address] November, Acute cystitis without hematuria N30.00 [facility] [address], [place] [address] November, Acute cystitis without hematuria N30.00 [facility] [id number] [place] [address] 04834- 9909 November, [facility] [id number] [place] [address] 91703- 7632 Oct, Medicare annual wellness visit, initial Z00.00 ; Encounter for immunization Z23 ; Chronic obstructive pulmonary disease, unspecified COPD type J44.9 ; Coronary artery disease involving [place] coronary artery of [place] heart without angina pectoris I25.10 ; Chronic congestive heart failure, unspecified congestive heart failure type I50.9 ; Essential hypertension I10 ; Ventricular arrhythmia I49.9 and Other atherosclerosis of [place] arteries of extremities, 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 [facility] [id number] [place] [address] 18348- 5136 Sep, Chronic congestive heart failure, unspecified congestive heart failure type I50.9 [facility] [id number] [place] [address] 45036- 2715 Aug, [facility] [id number] [place] [address] 97045- 2820 13 Aug, 2017 Chronic congestive heart failure, unspecified congestive heart failure type I50.9 ; Chronic obstructive pulmonary disease, unspecified COPD type J44.9 and Bilateral impacted cerumen H61.23 [facility] [id number] [place] [address] 82279- 6008 Jul, [facility] [id number] [place] [address] 27172- 1256 Jul, [facility] [id number] [place] [address] 26847- 4602 Jun, [facility] [id number] [place] [address] 37316- 9705 Jun, [facility] [id number] [place] [address] 46066- 5492 Jun, Coronary artery disease involving [place] coronary artery of [place] heart without angina pectoris I25.10 [facility] [address], [place] [address]- 0400 Jun, [facility] [address] [place] [address] 08072- 8637 May, Chronic obstructive pulmonary disease, unspecified COPD type J44.9 and History of pneumonia Z87.01 [facility] [id number] [place] [address] [id number] May, [facility] [id number] [place] [address] 24107- 3212 May, [facility] [id number] [place] [address] 19615- 9441 May, [facility] [id number] [place] [address] 94493- 6568 May, [facility] [id number] [place] [address] 40544- 7401 Apr, [facility] [id number] [place] [address] 43246- 9601 Apr, Coronary artery disease involving [place] coronary artery of [place] heart without angina pectoris I25.10 and Ventricular arrhythmia I49.9 [facility] [address] [place] [address] 14375- 4966 Apr, [facility] [id number] [place] [address] 18242- 9114 Apr, [facility] [address] [place] [address] 06632 -4283 Apr, Dysuria R30.0 and Acute cystitis without hematuria N30.00 [facility] [address] [place] [address] 04099- 5421 Feb, Epistaxis R04.0 and Chronic obstructive pulmonary disease, unspecified COPD type J44.9 [facility] [id number] [place] [address] 60884- 5796 Jan, Fall from other pedestrian conveyance, initial encounter V00.891A [facility] [address], [place] [address]- 8087 Jan, Chronic congestive heart failure, unspecified congestive heart failure type I50.9 ; Chronic obstructive pulmonary disease, unspecified COPD type J44.9 and Stasis dermatitis of both legs I87.2 [facility] [address], [place] [address] 6161 November, Chronic congestive heart failure, unspecified congestive heart failure type I50.9 [facility] [address], [place] [address]- 5596 November, Coronary artery disease involving [place] coronary artery of [place] heart without angina pectoris I25.10 ; Chronic congestive heart failure, unspecified congestive heart failure type I50.9 and Chronic obstructive pulmonary disease, unspecified COPD type J44.9 [facility] [address], [place] [address]- 4605 Oct, [facility] [address], [place] [address]- 2219 Oct, [facility] [id number] [place] [address] [id number] Oct, [facility] [id number] [id number] Sep, Via [facility] [address] [place] [id number] Sep, Essential hypertension I10 and Chronic congestive heart failure, unspecified congestive heart failure type I50.9 [facility] [id number] [id number] Sep, [facility] [address], [place] [address]- 7209 Sep, [facility] [id number] [address] 1139 Jun, [facility] [address], [place] [address]- 9059 Jun, [facility] [address], [place] [address]- 6740 May, [facility] [address], [place] [address]- 8721 May, [facility] [address] [place] [address] 48693- 1106 May, [facility] [address] [place] [address] 89300- 2872 May, [facility] [id number] [place] [address] 02507- 2311 May, Chronic congestive heart failure, unspecified congestive heart failure type I50.9 [facility] [address], [place] [address] May, Pain of right lower extremity M79.604 ; History of atrial fibrillation without current medication Z86.79 and Acute deep vein thrombosis ( DVT) of femoral vein of right lower extremity I82.411 [facility] [id number] [place] [address] 18539- 5869 May, [facility] [address], [place] [address]- 4196 Feb, [facility] [address], [place] [address]- 0318 Feb, Coronary artery disease involving [place] coronary artery of [place] heart without angina pectoris I25.10 ; Chronic congestive heart failure, unspecified congestive heart failure type I50.9 ; Cardiac defibrillator in place Z95.810 and Candidiasis B37.9 IMMUNIZATIONS No Known Immunizations SOCIAL HISTORY Never Assessed REASON FOR VISIT medication refill request PLAN OF CARE VITAL SIGNS MEDICATIONS Medication Instructions Dosage Frequency Start Date End Date Duration Status Digoxin 125 mcg Orally Once a day 1 tablet 24h 30 days Active RESULTS No Results PROCEDURES No Known procedures INSTRUCTIONS MEDICATIONS ADMINISTERED No Known Medications MEDICAL (GENERAL) HISTORY Type Description Date Medical History hypertension Medical History skin cancer-arms, face Medical History [facility] Medical [facility] Pneumonia Surgical History heart cath-2 stents, multiple balloons Surgical History open heart surgery 1987 Surgical History defibrillator placed 2013 Hospitalization History surgery Hospitalization History pneumonia 2014 Hospitalization History broken left hip at September Hospitalization History Bronchitis/clinical Pneumonia,hypoxia,sepsis - Via [facility] 06/21/17 Hospitalization History [facility]- Cardiomyopathy, Defibrillator discharge 01/04/2018 Hospitalization History CHF 02/09/2018
--- OUTSIDE RECORDS SUMMARY | 2018-06-08 14:41 | XMS REPORT ---
Author Author ABHINAV GONZALEZ [facility] Address [address] [place] [address] Care Team Providers Care Development Vice President Name Role Phone ABHINAV GONZALEZ Unavailable PROBLEMS Type Condition ICD9-CM Code SFD44-LW Code Onset Dates Condition Status SNOMED Code Problem Cardiac defibrillator in place Z95.810 Active 371018309 Problem Essential hypertension I10 Active 93775491 Problem Coronary artery disease involving [place] coronary artery of [place] heart without angina pectoris I25.10 Active [id number] Problem Chronic congestive heart failure, unspecified congestive heart failure type I50.9 Active 24921720 Problem Type 2 diabetes mellitus without complications E11.9 Active 377113717 Problem intermediate manager current use of insulin Z79.4 Active 390818636 Problem Stasis dermatitis of both legs I87.2 Active 69061353 Problem Chronic obstructive pulmonary disease, unspecified COPD type J44.9 Active 85895948 Problem Other atherosclerosis of [place] arteries of extremities, 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 Active 36756714 Problem Ventricular arrhythmia I49.9 Active 20892587 ALLERGIES No Information ENCOUNTERS Encounter Location Date Diagnosis [facility] [address], [place] [address]- 4683 Mar, [facility] [address], [place] [address]- 9050 Feb, [facility] [address] [place] [address] 26402- 2549 Feb, [facility] [id number] [place] [address] 58264- 2691 Feb, [facility] [address], [place] [address]- 0206 Jan, [facility] [id number] [place] [address] 63178- 6760 Jan, [facility] [address], [place] [address]- 3568 Jan, Acute cystitis with hematuria N30.01 and Dysuria R30.0 [facility] [address], [place] [address]- 3862 Jan, [facility] [id number] [place] [address] 59011- 1142 Jan, [facility] [id number], [place] [address]- 2755 Jan, [facility] [id number] [place] [address] 38064- 0392 Jan, Type 2 diabetes mellitus without complications E11.9 ; intermediate manager current use of insulin Z79.4 ; History of respiratory failure Z87.09 and History of sepsis Z86.19 [facility] [id number] [place] [address] 70237- 9971 Jan, [facility] [address] [place] [address] 25066- 9627 Jan, [facility] [id number] [place] [address] 69229- 4751 Jan, [facility] [address], [place] [address]- 2132 Jan, [facility] [address], [place] [address]- 3473 Jan, [facility] [address], [place] [address]- 0793 Dec, [facility] [id number] [place] [address] 67996 -7812 November, Acute cystitis without hematuria N30.00 [facility] [address], [place] [address] November, Acute cystitis without hematuria N30.00 [place] [facility] [address], [place] [address]- 1509 November, [place] [facility] [id number] [place] [address] 28629- 4530 Oct, Medicare annual wellness visit, initial Z00.00 ; Encounter for immunization Z23 ; Chronic obstructive pulmonary disease, unspecified COPD type J44.9 ; Coronary artery disease involving [place] coronary artery of [place] heart without angina pectoris I25.10 ; Chronic congestive heart failure, unspecified congestive heart failure type I50.9 ; Essential hypertension I10 ; Ventricular arrhythmia I49.9 and Other atherosclerosis of [place] arteries of extremities, 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 [place] [facility] [id number] [place] [address] 63186- 0454 Sep, Chronic congestive heart failure, unspecified congestive heart failure type I50.9 [facility] [address], [place] [address]- 4348 Aug, [place] [facility] [id number] [place] [address] 41753- 7693 13 Aug, 2017 Chronic congestive heart failure, unspecified congestive heart failure type I50.9 ; Chronic obstructive pulmonary disease, unspecified COPD type J44.9 and Bilateral impacted cerumen H61.23 [facility] [facility] [address], [place] [address]- 2155 Jul, [facility] [facility] [address], [place] [address]- 4564 Jul, [place] [address] [place] [address] 08661- 9010 Jun, [place] [id number] [place] [address] 19659- 9174 Jun, [place] [facility] [id number] [place] [address] 54741- 8227 Jun, Coronary artery disease involving [place] coronary artery of [place] heart without angina pectoris I25.10 [place] [facility] [id number] [place] [address] 70809- 5254 Jun, [facility] [address] [place] [address] 93057- 1370 May, Chronic obstructive pulmonary disease, unspecified COPD type J44.9 and History of pneumonia Z87.01 [facility] [id number] [place] [address] [id number] May, [facility] [id number] [place] [address] 54359- 9636 May, [facility] [id number] [place] [address] 72220- 4507 May, [facility] [id number] [place] [address] 35677- 4049 May, [facility] [id number] [place] [address] 74785- 9216 Apr, [facility] [id number] [place] [address] 10309- 9174 Apr, Coronary artery disease involving [place] coronary artery of [place] heart without angina pectoris I25.10 and Ventricular arrhythmia I49.9 [facility] [id number] [place] [address] 08604- 9212 Apr, [facility] [address] [place] [address] 46441- 7259 Apr, [facility] [address] [place] [address] 86674 -3280 Apr, Dysuria R30.0 and Acute cystitis without hematuria N30.00 [facility] [address] [place] [address] 49095- 5215 Feb, Epistaxis R04.0 and Chronic obstructive pulmonary disease, unspecified COPD type J44.9 [facility] [address] [place] [address] 96102- 9477 Jan, Fall from other pedestrian conveyance, initial encounter V00.891A [facility] [address] [facility] [id number] [address]- 1594 Jan, Chronic congestive heart failure, unspecified congestive heart failure type I50.9 ; Chronic obstructive pulmonary disease, unspecified COPD type J44.9 and Stasis dermatitis of both legs I87.2 [facility] [id number] [address]- 9799 November, Chronic congestive heart failure, unspecified congestive heart failure type I50.9 [facility] [id number] [address]- 1149 November, Coronary artery disease involving [place] coronary artery of [place] heart without angina pectoris I25.10 ; Chronic congestive heart failure, unspecified congestive heart failure type I50.9 and Chronic obstructive pulmonary disease, unspecified COPD type J44.9 [facility] [address], [place] [address]- 4935 Oct, [facility] [address], [place] [address]- 9803 Oct, [facility] [id number] [id number] Oct, [facility] [id number] [id number] Sep, [facility] [address] [place] [id number] Sep, Essential hypertension I10 and Chronic congestive heart failure, unspecified congestive heart failure type I50.9 [facility] [id number] [id number] Sep, [facility] [id number] [address]- 3206 Sep, [facility] [id number] [address]- 2584 Jun, [facility] [id number], [place] [address]- 6341 Jun, [facility] [address], [place] [address]- 0628 May, [facility] [address], [place] [address]- 6215 May, [facility] [address], [place] [address]- 1672 May, [facility] [address], [place] [address]- 5731 May, [facility] [address] [place] [address] 74241- 1903 May, Chronic congestive heart failure, unspecified congestive heart failure type I50.9 [facility] [address], [place] [address]5 May, Pain of right lower extremity M79.604 ; History of atrial fibrillation without current medication Z86.79 and Acute deep vein thrombosis ( DVT) of femoral vein of right lower extremity I82.411 [facility] [address], [place] [address]- 6228 May, [facility] [address] [place] [address] 43313- 3158 Feb, [facility] [address], [place] [address]- 1271 Feb, Coronary artery disease involving [place] coronary artery of [place] heart without angina pectoris I25.10 ; Chronic congestive heart failure, unspecified congestive heart failure type I50.9 ; Cardiac defibrillator in place Z95.810 and Candidiasis B37.9 IMMUNIZATIONS No Known Immunizations SOCIAL HISTORY Never Assessed REASON FOR VISIT medication refill PLAN OF CARE VITAL SIGNS MEDICATIONS Medication Instructions Dosage Frequency Start Date End Date Duration Status Nexium 40 mg Orally Once a day 1 capsule 24h 30 days Active RESULTS No Results PROCEDURES No Known procedures INSTRUCTIONS MEDICATIONS ADMINISTERED No Known Medications MEDICAL (GENERAL) HISTORY Type Description Date Medical History hypertension Medical History skin cancer-arms, face Medical History [place] Medical History Pneumonia Surgical History heart cath-2 stents, multiple balloons Surgical History open heart surgery 1987 Surgical History defibrillator placed 2013 Hospitalization History surgery Hospitalization History pneumonia 2014 Hospitalization History broken left hip at September Hospitalization History Bronchitis/clinical Pneumonia,hypoxia,sepsis - Via [facility] 06/21/17 Hospitalization History [facility]- Cardiomyopathy, Defibrillator discharge 01/04/2018 Hospitalization History CHF 02/09/2018
--- OUTSIDE RECORDS SUMMARY | 2018-06-08 14:41 | XMS REPORT ---
Author Author ABHINAV GONZALEZ [facility] Address [address] [place] [address] Care Team Providers Care Accounts Receivable Analyst Name Role Phone ABHINAV GONZALEZ Unavailable PROBLEMS Type Condition ICD9-CM Code BFL02-VF Code Onset Dates Condition Status SNOMED Code Problem Cardiac defibrillator in place Z95.810 Active 798139472 Problem Essential hypertension I10 Active 72143413 Problem Coronary artery disease involving eyak coronary artery of eyak heart without angina pectoris I25.10 Active 4540558505668 Problem Chronic congestive heart failure, unspecified congestive heart failure type I50.9 Active 54265816 Problem Type 2 diabetes mellitus without complications E11.9 Active 566681195 Problem terminal manager current use of insulin Z79.4 Active 968136871 Problem Stasis dermatitis of both legs I87.2 Active 96095998 Problem Chronic obstructive pulmonary disease, unspecified COPD type J44.9 Active 73610461 Problem Other atherosclerosis of eyak arteries of extremities, 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 Active 39966021 Problem Ventricular arrhythmia I49.9 Active 53074956 ALLERGIES No Information ENCOUNTERS Encounter Location Date Diagnosis [facility] [address], [place] [address] Mar, [facility] [address], [place] [address] Feb, [facility] [id number] [place] [address] 03605- 2067 Feb, [facility] [id number] [place] [address] 34970- 2532 Feb, [facility] [address], [place] [address] 78[address] Jan, [facility] [id number] [place] [address] 92123- 3677 Jan, [facility] [address], [place] [address] 1509 Jan, Acute cystitis with hematuria N30.01 and Dysuria R30.0 [facility] [address], [place] [address] 9902 Jan, [facility] [id number] [place] [address] 89258- 9546 Jan, [facility] [id number] [address] 4692 Jan, [facility] [id number] [place] [address] 81128- 8302 Jan, Type 2 diabetes mellitus without complications E11.9 ; terminal manager current use of insulin Z79.4 ; History of respiratory failure Z87.09 and History of sepsis Z86.19 [facility] [id number] [place] [address] 02973- 6254 Jan, [facility] [id number] [place] [address] 38967- 6280 Jan, [facility] [id number] [place] [address] 19795- 6378 Jan, [facility] [address], [place] [address] 8033 Jan, [facility] [address], [place] [address] 7746 Jan, [facility] [address], [place] [address] 8240 Dec, [facility] [id number] [place] [address] 36857 -2200 November, Acute cystitis without hematuria N30.00 [facility] [address], [place] [address] November, Acute cystitis without hematuria N30.00 [facility] [address], [place] [address] 7[address] November, [facility] [id number] [place] [address] 57494- 4440 Oct, Medicare annual wellness visit, initial Z00.00 ; Encounter for immunization Z23 ; Chronic obstructive pulmonary disease, unspecified COPD type J44.9 ; Coronary artery disease involving eyak coronary artery of eyak heart without angina pectoris I25.10 ; Chronic congestive heart failure, unspecified congestive heart failure type I50.9 ; Essential hypertension I10 ; Ventricular arrhythmia I49.9 and Other atherosclerosis of eyak arteries of extremities, 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 [facility] [id number] [place] [address] 91202- 6453 Sep, Chronic congestive heart failure, unspecified congestive heart failure type I50.9 [facility] [id number] [address] 4934 Aug, [facility] [id number] [place] [address] 79757- 4514 13 Aug, 2017 Chronic congestive heart failure, unspecified congestive heart failure type I50.9 ; Chronic obstructive pulmonary disease, unspecified COPD type J44.9 and Bilateral impacted cerumen H61.23 [facility] [address], [place] [address]- 4742 Jul, [facility] [address], [place] [address] 5320 Jul, [facility] [id number] [place] [address] 88678- 8170 Jun, [facility] [id number] [place] [address] 71546- 3032 Jun, [facility] [id number] [place] [address] 87038- 1664 Jun, Coronary artery disease involving eyak coronary artery of eyak heart without angina pectoris I25.10 [facility] [id number] [place] [address] 18268- 7334 Jun, [facility] [address] [place] [address] 58680- 1744 May, Chronic obstructive pulmonary disease, unspecified COPD type J44.9 and History of pneumonia Z87.01 [facility] [id number] [place] [address] [id number] May, [facility] [id number] [place] [address] 31810- 7136 May, [facility] [id number] [place] [address] 88988- 5939 May, [facility] [id number] [place] [address] 02187- 6275 May, [facility] [id number] [place] [address] 18031- 0691 Apr, [facility] [id number] [place] [address] 79330- 2730 Apr, Coronary artery disease involving eyak coronary artery of eyak heart without angina pectoris I25.10 and Ventricular arrhythmia I49.9 [facility] [id number] [place] [address] 24523- 4043 Apr, [facility] [address] [place] [address] 65832- 7442 Apr, [facility] [address] [place] [address] 03477 -1133 Apr, Dysuria R30.0 and Acute cystitis without hematuria N30.00 [facility] [address] [place] [address] 63669- 0541 Feb, Epistaxis R04.0 and Chronic obstructive pulmonary disease, unspecified COPD type J44.9 [facility] [address] [place] [address] 25720- 7265 Jan, Fall from other pedestrian conveyance, initial encounter V00.891A [facility] [address] [facility] [id number] [address] Jan, Chronic congestive heart failure, unspecified congestive heart failure type I50.9 ; Chronic obstructive pulmonary disease, unspecified COPD type J44.9 and Stasis dermatitis of both legs I87.2 [facility] [id number] [address]- 1353 November, Chronic congestive heart failure, unspecified congestive heart failure type I50.9 [facility] [id number] [address]- 1203 November, Coronary artery disease involving eyak coronary artery of eyak heart without angina pectoris I25.10 ; Chronic congestive heart failure, unspecified congestive heart failure type I50.9 and Chronic obstructive pulmonary disease, unspecified COPD type J44.9 [facility] [address], [place] [address]- 7722 Oct, [facility] [address], [place] [address]- 1176 Oct, [facility] [id number] [id number] Oct, [facility] [id number] [id number] Sep, Via [facility] [address] [place] [id number] Sep, Essential hypertension I10 and Chronic congestive heart failure, unspecified congestive heart failure type I50.9 [facility] [id number] [address] Sep, [facility] [id number] [address]- 6182 Sep, [facility] [id number], [place] [address]- 8639 Jun, [facility] [id number] [address]- 9315 Jun, [facility] [address], [place] [address]- 8379 May, [facility] [address], [place] [address]- 9179 May, [facility] [address], [place] [address]- 2546 May, [facility] [id number] [place] [address] 13255- 4802 May, [facility] [id number] [place] [address] 57772- 8141 May, Chronic congestive heart failure, unspecified congestive heart failure type I50.9 [facility] [address], [place] [address] May, Pain of right lower extremity M79.604 ; History of atrial fibrillation without current medication Z86.79 and Acute deep vein thrombosis ( DVT) of femoral vein of right lower extremity I82.411 [facility] [id number] [address]- 7709 May, [facility] [address] [place] [address] 77532- 4479 Feb, [facility] [address], [place] [address]- 8697 Feb, Coronary artery disease involving eyak coronary artery of eyak heart without angina pectoris I25.10 ; Chronic congestive heart failure, unspecified congestive heart failure type I50.9 ; Cardiac defibrillator in place Z95.810 and Candidiasis B37.9 IMMUNIZATIONS No Known Immunizations SOCIAL HISTORY Never Assessed REASON FOR VISIT Refill request PLAN OF CARE VITAL SIGNS MEDICATIONS Medication Instructions Dosage Frequency Start Date End Date Duration Status Klor-Con 8 MEQ Orally Once a day 2 capsules 24h May, 30 days Active RESULTS No Results PROCEDURES [...] Hospitalization History Bronchitis/clinical Pneumonia,hypoxia,sepsis - Via [facility] 06/21/17 Hospitalization History [facility]- Cardiomyopathy, Defibrillator discharge 01/04/2018 Hospitalization History CHF 02/09/2018
--- OUTSIDE RECORDS SUMMARY | 2018-06-08 14:41 | XMS REPORT ---
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 Active 7614520424240 Problem Chronic congestive heart failure, unspecified congestive heart failure type I50.9 Active 75574457 Problem Type 2 diabetes mellitus without complications E11.9 Active 182673786 Problem 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 Active 691079506 Problem Stasis dermatitis of both legs I87.2 Active 56060537 Problem Chronic obstructive pulmonary disease, unspecified COPD type J44.9 Active 53392004 Problem 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, 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 Active 99409381 Problem Ventricular arrhythmia I49.9 Active 29800193 ALLERGIES No Information ENCOUNTERS Encounter Location Date Diagnosis [facility] [address] [address]- 6[address] Mar, [facility] [address], [place] [address]- 9075 Mar, [facility] [address] [place] [address] 67987- 2379 Feb, [facility] [id number] [place] [address] 90015- 0554 Feb, [facility] [address], [place] [address]- 4405 Feb, [facility] [id number] [place] [address] 66484- 5974 Jan, [facility] [address], [place] [address]- 7671 Jan, [facility] [address], [place] [address]- 3460 Jan, Acute cystitis with hematuria N30.01 and Dysuria R30.0 [facility] [id number] [place] [address] 57241- 9391 Jan, [facility] [address], [place] [address]- 6172 Jan, [facility] [id number] [place] [address] 41268- 0354 Jan, [facility] [address], [place] [address]- 6732 Jan, Type 2 diabetes mellitus without complications E11.9 ; longterm current use of insulin Z79.4 ; History of respiratory failure Z87.09 and History of sepsis Z86.19 [facility] [address], [place] [address]- 8213 Jan, [facility] [address], [place] [address]- 4775 Jan, [facility] [address], [place] [address]- 7487 Jan, [facility] [address], [place] [address]- 2602 Jan, [facility] [address], [place] [address]- 8722 Jan, [facility] [address], [place] [address]- 8462 Dec, [facility] [address], [place] [address] November, Acute cystitis without hematuria N30.00 [facility] [id number], [place] [address] November, Acute cystitis without hematuria N30.00 [facility] [id number] [place] [address] 81574- 7458 November, [facility] [id number] [place] [address] 86412- 4484 Oct, Medicare annual wellness visit, initial Z00.00 ; Encounter for immunization Z23 ; Chronic obstructive pulmonary disease, unspecified COPD type J44.9 ; 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 ; Chronic congestive heart failure, unspecified congestive heart failure type I50.9 ; Essential hypertension I10 ; Ventricular arrhythmia I49.9 and 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, 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 [facility] [id number] [place] [address] 98462- 6882 Sep, Chronic congestive heart failure, unspecified congestive heart failure type I50.9 [facility] [id number] [place] [address] 86475- 7299 Aug, [facility] [id number] [place] [address] 70815- 6535 13 Aug, 2017 Chronic congestive heart failure, unspecified congestive heart failure type I50.9 ; Chronic obstructive pulmonary disease, unspecified COPD type J44.9 and Bilateral impacted cerumen H61.23 [facility] [id number] [place] [address] 12853- 5047 Jul, [facility] [id number] [place] [address] 85011- 2720 Jul, [facility] [id number] [place] [address] 64013- 3304 Jun, [facility] [id number] [place] [address] 91631- 2996 Jun, [facility] [id number] [place] [address] 85519- 9931 Jun, 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 [facility] [address], [place] [address]- 3344 Jun, [facility] [address] [place] [address] 05030- 1318 May, Chronic obstructive pulmonary disease, unspecified COPD type J44.9 and History of pneumonia Z87.01 [facility] [id number] [place] [address] [id number] May, [facility] [id number] [place] [address] 39721- 7504 May, [facility] [id number] [place] [address] 88256- 5452 May, [facility] [id number] [place] [address] 02642- 0702 May, [facility] [id number] [place] [address] 14710- 2099 Apr, [facility] [id number] [place] [address] 88269- 1887 Apr, 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 and Ventricular arrhythmia I49.9 [facility] [address] [place] [address] 86176- 7499 Apr, [facility] [id number] [place] [address] 33450- 4563 Apr, [facility] [address] [place] [address] 66085 -5605 Apr, Dysuria R30.0 and Acute cystitis without hematuria N30.00 [facility] [address] [place] [address] 11535- 7886 Feb, Epistaxis R04.0 and Chronic obstructive pulmonary disease, unspecified COPD type J44.9 [facility] [id number] [place] [address] 11315- 0070 Jan, Fall from other pedestrian conveyance, initial encounter V00.891A [facility] [address], [place] [address]- 7539 Jan, Chronic congestive heart failure, unspecified congestive heart failure type I50.9 ; Chronic obstructive pulmonary disease, unspecified COPD type J44.9 and Stasis dermatitis of both legs I87.2 [facility] [address], [place] [address]- 7926 November, Chronic congestive heart failure, unspecified congestive heart failure type I50.9 [facility] [address], [place] [address]- 9985 November, 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 ; Chronic congestive heart failure, unspecified congestive heart failure type I50.9 and Chronic obstructive pulmonary disease, unspecified COPD type J44.9 [facility] [address], [place] [address]- 1570 Oct, [facility] [address], [place] [address]- 5513 Oct, [facility] [id number] [place] [address] [id number] Oct, [facility] [id number] [id number] Sep, [facility] [address] [place] [id number] Sep, Essential hypertension I10 and Chronic congestive heart failure, unspecified congestive heart failure type I50.9 [facility] [id number] [id number] Sep, [facility] [address], [place] [address]- 8237 Sep, [facility] [id number] [address]- 2287 Jun, [facility] [id number], [place] [address]- 6544 Jun, [facility] [address], [place] [address]- 8121 May, [facility] [address], [place] [address]- 5979 May, [facility] [address] [place] [address] 19964- 6356 May, [facility] [address] [place] [address] 27681- 3733 May, [facility] [address] [place] [address] 56048- 4720 May, Chronic congestive heart failure, unspecified congestive heart failure type I50.9 [facility] [address], [place] [address] May, Pain of right lower extremity M79.604 ; History of atrial fibrillation without current medication Z86.79 and Acute deep vein thrombosis ( DVT) of femoral vein of right lower extremity I82.411 [facility] [address] [place] [address] 85968- 5902 May, [facility] [address], [place] [address]- 6711 Feb, [facility] [address] [address]- 9422 Feb, 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 ; Chronic congestive heart failure, unspecified congestive heart failure type I50.9 ; Cardiac defibrillator in place Z95.810 and Candidiasis B37.9 IMMUNIZATIONS No Known Immunizations SOCIAL HISTORY Never Assessed REASON FOR VISIT PLAN OF CARE VITAL SIGNS MEDICATIONS Unknown Medications RESULTS No Results PROCEDURES No Known procedures INSTRUCTIONS MEDICATIONS ADMINISTERED No Known Medications MEDICAL (GENERAL) HISTORY Type Description Date Medical History hypertension Medical History skin cancer-arms, face Medical History [place] Medical History Pneumonia Surgical History heart cath-2 stents, multiple balloons Surgical History open heart surgery 1987 Surgical History defibrillator placed 2013 Hospitalization History surgery Hospitalization History pneumonia 2014 Hospitalization History broken left hip at September Hospitalization History Bronchitis/clinical Pneumonia,hypoxia,sepsis - Via [facility] 06/21/17 Hospitalization History [facility]- Cardiomyopathy, Defibrillator discharge 01/04/2018 Hospitalization History CHF 02/09/2018
--- OUTSIDE RECORDS SUMMARY | 2018-06-08 14:41 | XMS REPORT ---
Author Author TIFFANY SANCHEZ Organization [facility] [place] Address [address] [place] [address] Care Team Providers Care Certified Activities Director Name Role Phone TIFFANY SANCHEZ Unavailable PROBLEMS Type Condition ICD9-CM Code JQU11-GP Code Onset Dates Condition Status SNOMED Code Problem Cardiac defibrillator in place Z95.810 Active 041056147 Problem Essential hypertension I10 Active 50358700 Problem Coronary artery disease involving stebbins coronary artery of stebbins heart without angina pectoris I25.10 Active 3232695637716 Problem Chronic congestive heart failure, unspecified congestive heart failure type I50.9 Active 96159427 Problem Type 2 diabetes mellitus without complications E11.9 Active 425633106 Problem senior living current use of insulin Z79.4 Active 505001933 Problem Stasis dermatitis of both legs I87.2 Active 93778012 Problem Chronic obstructive pulmonary disease, unspecified COPD type J44.9 Active 79871605 Problem Other atherosclerosis of stebbins arteries of extremities, 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 Active 10874978 Problem Ventricular arrhythmia I49.9 Active 26310188 ALLERGIES Substance Reaction Event Type Date Status Penicillin V Potassium rash Drug Allergy Jan, Active Codeine Phosphate Unknown Drug Allergy Jan, Active ENCOUNTERS Encounter Location Date Diagnosis [facility] [place] [id number] [address] Feb, [facility] [place] [id number] [address] Feb, [facility] [place] [id number] [place] [address] Feb, [facility] [place] [id number] [address] Jan, [facility] [place] [id number], [place] [address] Jan, [id number] [address] Jan, Acute cystitis with hematuria N30.01 and Dysuria R30.0 [facility] [place] [id number] [address] Jan, [facility] [place] [address], [place] [address] Jan, [facility] [place] [id number] [place] [address] Jan, [facility] [place] [id number] [place] [address] 4185 Jan, Type 2 diabetes mellitus without complications E11.9 ; 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 ; History of respiratory failure Z87.09 and History of sepsis Z86.19 [facility] [place] [address], [place] [address] Jan, [facility] [place] [address] [address] Jan, [facility] [place] [id number] [place] [address]76- 2225 Jan, [facility] [place] [id number], [place] [address] Jan, [facility] [place] [id number], [place] [address] Jan, [facility] [place] [id number], [place] [address] Dec, [facility] [id number] [place] [address] November, Acute cystitis without hematuria N30.00 [facility] [id number], [place] [address] November, Acute cystitis without hematuria N30.00 [facility] [place] [id number] [address] November, [id number] [place] [address] Oct, Medicare annual wellness visit, initial Z00.00 ; Encounter for immunization Z23 ; Chronic obstructive pulmonary disease, unspecified COPD type J44.9 ; Coronary artery disease involving stebbins coronary artery of stebbins heart without angina pectoris I25.10 ; Chronic congestive heart failure, unspecified congestive heart failure type I50.9 ; Essential hypertension I10 ; Ventricular arrhythmia I49.9 and Other atherosclerosis of stebbins arteries of extremities, 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 [id number] [place] [address]190- 9771 Sep, Chronic congestive heart failure, unspecified congestive heart failure type I50.9 [id number] [place] [address]- [address]51 20 Aug, 2017 [id number] [place] [address]59- 5039 Aug, Chronic congestive heart failure, unspecified congestive heart failure type I50.9 ; Chronic obstructive pulmonary disease, unspecified COPD type J44.9 and Bilateral impacted cerumen H61.23 [id number] [place] [address] 79338- 4131 Jul, [id number] [place] [address] 24843- 7584 Jul, [address] [id number] [place] [address]64- 4955 Jun, [address] [place] [id number] [place] [address] 13747- 9101 Jun, [address] [id number] [place] [address]01- 0803 12 Jun, 2017 Coronary artery disease involving stebbins coronary artery of stebbins heart without angina pectoris I25.10 [address] [place] [id number] [place] [address]994- 5330 Jun, [facility] [place] [address], [place] [address] May, Chronic obstructive pulmonary disease, unspecified COPD type J44.9 and History of pneumonia Z87.01 [facility] [place] [id number] [place] [id number] May, [facility] [place] [id number] [place] [address] 14952- 7792 May, [facility] [place] [id number] [place] [address] 17729- 2929 May, [facility] [place] [id number] [place] [address] 22571- 7062 May, [facility] [place] [id number] [place] [address] 67522- 0028 Apr, [facility] [place] [id number] [place] [address] 31426- 3222 Apr, Coronary artery disease involving stebbins coronary artery of stebbins heart without angina pectoris I25.10 and Ventricular arrhythmia I49.9 [facility] [place] [id number] [place] [address] 02188- 6494 Apr, [facility] [place] [id number] [place] [address] 03664- 7083 Apr, [facility] [id number] [place] [address]50 -[address]16 Apr, Dysuria R30.0 and Acute cystitis without hematuria N30.00 [facility] [place] [id number] [place] [address] 26261- 7916 Feb, Epistaxis R04.0 and Chronic obstructive pulmonary disease, unspecified COPD type J44.9 [facility] [place] [id number] [place] [address] 36242- 3340 Jan, Fall from other pedestrian conveyance, initial encounter V00.891A [facility] [place] [id number] [address] Jan, Chronic congestive heart failure, unspecified congestive heart failure type I50.9 ; Chronic obstructive pulmonary disease, unspecified COPD type J44.9 and Stasis dermatitis of both legs I87.2 [facility] [place] [address], [place] [address] November, Chronic congestive heart failure, unspecified congestive heart failure type I50.9 [facility] [place] [address], [place] [address] November, Coronary artery disease involving stebbins coronary artery of stebbins heart without angina pectoris I25.10 ; Chronic congestive heart failure, unspecified congestive heart failure type I50.9 and Chronic obstructive pulmonary disease, unspecified COPD type J44.9 [facility] [place] [address], [place] [address]- 4984 Oct, [facility] [place] [id number] [place] [address] 63416- 5513 Oct, [facility] [place] [id number] [place] [address] [id number] Oct, [facility] [place] [id number] [place] [phone] Sep, [facility] [employer] [facility] [employer] [address] [place], [place] [id number] Sep, Essential hypertension I10 and Chronic congestive heart failure, unspecified congestive heart failure type I50.9 [facility] [place] [id number] [id number] Sep, [facility] [place] [address], [place] [address]- [address]4 Sep, [facility] [place] [id number] [place] [address] 78279- 6966 Jun, [facility] [place] [address], [place] [address]- 6866 Jun, [facility] [place] [id number] [place] [address] 32510- 3151 May, [facility] [place] [id number], [place] [address]- 5198 May, [facility] [place] [address], [place] [address]- 5787 May, [facility] [place] [address], [place] [address]01 May, [facility] [place] [id number] [place] [address] 25724- 0208 May, Chronic congestive heart failure, unspecified congestive heart failure type I50.9 [facility] [id number] [place] [address]291 [address]60 May, Pain of right lower extremity M79.604 ; History of atrial fibrillation without current medication Z86.79 and Acute deep vein thrombosis ( DVT) of femoral vein of right lower extremity I82.411 [facility] [place] [id number] [place] [address] 78758- 4424 May, [facility] [place] [id number] [place] [address] 18047- 2242 Feb, [facility] [place] [id number] [place] [address] 78913- 1210 Feb, Coronary artery disease involving stebbins coronary artery of stebbins heart without angina pectoris I25.10 ; Chronic congestive heart failure, unspecified congestive heart failure type I50.9 ; Cardiac defibrillator in place Z95.810 and Candidiasis B37.9 IMMUNIZATIONS No Known Immunizations SOCIAL HISTORY Never Assessed REASON FOR VISIT Possible UTI, was told this at the hospital. Reports urine was sent to the hospital, reports has not heard anything back. [facility] PLAN OF CARE VITAL SIGNS Height 65 in 2018-02-20 Temperature 98.5 degrees Fahrenheit 2018-02-20 Heart Rate 86 bpm 2018-02-20 Respiratory Rate 18 2018-02-20 Blood pressure systolic 126 mmHg 2018-02-20 Blood pressure diastolic 62 mmHg 2018-02-20 MEDICATIONS Medication Instructions Dosage Frequency Start Date End Date Duration Status Levemir 100 UNIT/ML Subcutaneous Once a day 10 units 24h Jan, Active Digoxin 125 MCG Orally Once a day 1 tablet 24h Active Amiodarone HCl 200 mg Orally three times a week on Sun, Sun, Sun. in addition to daily dose 2 tablets at 2000 Active Furosemide 40 mg Orally twice a day 1 tablet 12h Active Amlodipine Besylate 5 MG Orally Once a day 1 tablet 24h Active Amiodarone HCl 200 mg Orally Once a day 1 tablet 24h Active Albuterol Sulfate 1.25 MG/3ML Inhalation 2 times a day as directed 12h May, Active Nexium 40 MG Orally Once a day 1 capsule 24h Active Wheelchair - to use for Mobility 24h 13 Aug, 2017 Active Nebulizer - as directed May, Active Oxygen Active Levaquin 500 mg Orally Once a day 1 tablet 24h Jan, Feb, 07 days Active RESULTS No Results PROCEDURES Procedure Date Ordered Result Body Site [facility] VISIT ESTABLISHED PATIENT February 20, 2018 LAB NOT BILLED BY [facility] February 20, 2018 URINALYSIS, AUTO, W/O SCOPE February 20, 2018 INSTRUCTIONS MEDICATIONS ADMINISTERED No Known Medications MEDICAL (GENERAL) HISTORY Type Description Date Medical History hypertension Medical History skin cancer-arms, face Medical History [place] Medical History Pneumonia Surgical History heart cath-2 stents, multiple balloons Surgical History open heart surgery 1987 Surgical History defibrillator placed 2013 Hospitalization History surgery Hospitalization History pneumonia 2014 Hospitalization History broken left hip at September Hospitalization History Bronchitis/clinical Pneumonia,hypoxia,sepsis - [facility] 06/21/17 Hospitalization History [facility]- Cardiomyopathy, Defibrillator discharge 01/04/2018 Hospitalization History CHF 02/09/2018
--- OUTSIDE RECORDS SUMMARY | 2018-06-08 14:41 | XMS REPORT ---
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 pectoris I25.10 Active 1989140666004 Problem Chronic congestive heart failure, unspecified congestive heart failure type I50.9 Active 14079975 Problem Type 2 diabetes mellitus without complications E11.9 Active 259491542 Problem prison current use of insulin Z79.4 Active 906935686 Problem Stasis dermatitis of both legs I87.2 Active 64825032 Problem Chronic obstructive pulmonary disease, unspecified COPD type J44.9 Active 68913253 Problem Other atherosclerosis of hoonah arteries of extremities, 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 Active 88298451 Problem Ventricular arrhythmia I49.9 Active 45786698 ALLERGIES No Information ENCOUNTERS Encounter Location Date Diagnosis [facility] [id number] [place] [address] 74509- 2867 Mar, [facility] [id number] [place] [address] 30797- 2709 Feb, [facility] [id number] [place] [address] 46205- 3065 Feb, [facility] [address] [address]- 8974 Feb, [facility] [id number] [place] [address] 58558- 4739 Jan, [facility] [id number] [place] [address] 71274- 5152 Jan, [facility] [address], [place] [address] 18[address] Jan, Acute cystitis with hematuria N30.01 and Dysuria R30.0 [facility] [address], [place] [address] 5180 Jan, [facility] [address] [address] 7310 Jan, [facility] [address] [address] 8792 Jan, [facility] [address] [place] [address] 23872- 7532 Jan, Type 2 diabetes mellitus without complications E11.9 ; moth exterminator current use of insulin Z79.4 ; History of respiratory failure Z87.09 and History of sepsis Z86.19 [facility] [address], [place] [address] 4933 Jan, [facility] [address], [place] [address]- 7111 Jan, [facility] [address], [place] [address] 2522 Jan, [facility] [address], [place] [address] 4303 Jan, [facility] [address] [address] 6991 Jan, [facility] [address], [place] [address] 9934 Dec, [facility] [address], [place] [address] November, Acute cystitis without hematuria N30.00 [facility] [address], [place] [address] November, Acute cystitis without hematuria N30.00 [facility] [address] [address] 7032 November, [facility] [id number] [place] [address] 27937- 8817 Oct, Medicare annual wellness visit, initial Z00.00 ; Encounter for immunization Z23 ; Chronic obstructive pulmonary disease, unspecified COPD type J44.9 ; Coronary artery disease 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 angina pectoris I25.10 ; Chronic congestive heart failure, unspecified congestive heart failure type I50.9 ; Essential hypertension I10 ; Ventricular arrhythmia I49.9 and Other atherosclerosis of hoonah arteries of extremities, 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 [facility] [id number] [place] [address] 37721- 2634 Sep, Chronic congestive heart failure, unspecified congestive heart failure type I50.9 [facility] [id number] [place] [address] 73022- 3750 20 Aug, 2017 [facility] [id number] [place] [address] 10021- 2455 13 Aug, 2017 Chronic congestive heart failure, unspecified congestive heart failure type I50.9 ; Chronic obstructive pulmonary disease, unspecified COPD type J44.9 and Bilateral impacted cerumen H61.23 [facility] [id number] [place] [address] 49546- 7060 Jul, [facility] [address], [place] [address]- 0480 Jul, [facility] [id number] [place] [address] 60881- 3743 Jun, [facility] [id number] [place] [address] 88847- 2675 Jun, [facility] [id number] [place] [address] 63173- 7937 Jun, Coronary artery disease 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 angina pectoris I25.10 [facility] [id number] [place] [address] 04668- 3087 Jun, [facility] [id number] [place] [address] 79334- 4534 May, Chronic obstructive pulmonary disease, unspecified COPD type J44.9 and History of pneumonia Z87.01 [facility] [id number] [id number] May, [facility] [id number] [place] [address] 27600- 7448 May, [facility] [id number] [place] [address] 28236- 8733 May, [facility] [id number] [place] [address] 59043- 3297 May, [facility] [id number] [place] [address] 92831- 3946 Apr, [facility] [id number] [place] [address] 57896- 1091 Apr, Coronary artery disease 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 angina pectoris I25.10 and Ventricular arrhythmia I49.9 [facility] [address] [place] [address] 89216- 1272 Apr, [facility] [id number] [place] [address] 30015- 4407 Apr, [facility] [address] [place] [address] 92419 -0693 Apr, Dysuria R30.0 and Acute cystitis without hematuria N30.00 [facility] [address] [place] [address] 08079- 3627 Feb, Epistaxis R04.0 and Chronic obstructive pulmonary disease, unspecified COPD type J44.9 [facility] [address] [place] [address] 28864- 0413 Jan, Fall from other pedestrian conveyance, initial encounter V00.891A [facility] [id number] [address] 8121 Jan, Chronic congestive heart failure, unspecified congestive heart failure type I50.9 ; Chronic obstructive pulmonary disease, unspecified COPD type J44.9 and Stasis dermatitis of both legs I87.2 [facility] [address], [place] [address]- 3633 November, Chronic congestive heart failure, unspecified congestive heart failure type I50.9 [facility] [address], [place] [address]- 7946 November, Coronary artery disease 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 angina pectoris I25.10 ; Chronic congestive heart failure, unspecified congestive heart failure type I50.9 and Chronic obstructive pulmonary disease, unspecified COPD type J44.9 [facility] [address] [address]- 7257 Oct, [facility] [address], [place] [address]- 5576 Oct, [facility] [id number] [id number] Oct, [facility] [id number] [place] [id number] Sep, Via [facility] [address] [place] [id number] Sep, Essential hypertension I10 and Chronic congestive heart failure, unspecified congestive heart failure type I50.9 [facility] [id number] [address] Sep, [facility] [address], [place] [address]- 5891 Sep, [facility] [address], [place] [address]- 4670 Jun, [facility] [address], [place] [address]- 4022 Jun, [facility] [address], [place] [address]- 8043 May, [facility] [address], [place] [address]- 5254 May, [facility] [id number] [place] [address] 66708- 6715 May, [facility] [id number] [place] [address] 29439- 7265 May, [facility] [id number] [place] [address] 11608- 3310 May, Chronic congestive heart failure, unspecified congestive heart failure type I50.9 [facility] [address] [place] [address] 26747 -4057 May, Pain of right lower extremity M79.604 ; History of atrial fibrillation without current medication Z86.79 and Acute deep vein thrombosis ( DVT) of femoral vein of right lower extremity I82.411 [facility] [id number] [place] [address] 96639- 3721 May, [facility] [id number] [place] [address] 43534- 0759 Feb, [facility] [id number] [place] [address] 29219- 7495 Feb, Coronary artery disease 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 angina pectoris I25.10 ; Chronic congestive heart failure, unspecified congestive heart failure type I50.9 ; Cardiac defibrillator in place Z95.810 and Candidiasis B37.9 IMMUNIZATIONS No Known Immunizations SOCIAL HISTORY Never Assessed REASON FOR VISIT culture results PLAN OF CARE VITAL SIGNS MEDICATIONS Medication Instructions Dosage Frequency Start Date End Date Duration Status Augmentin 875-125 MG Orally every 12 hrs 1 tablet 12h Jan, 2 Feb, 2018 03 days Active RESULTS No Results PROCEDURES No Known procedures INSTRUCTIONS MEDICATIONS ADMINISTERED No Known Medications MEDICAL (GENERAL) HISTORY Type Description Date Medical History hypertension Medical History skin cancer-arms, face Medical History [place] Medical History Pneumonia Surgical History heart cath-2 stents, multiple balloons Surgical History open heart surgery 1987 Surgical History defibrillator placed 2013 Hospitalization History surgery Hospitalization History pneumonia 2014 Hospitalization History broken left hip at September Hospitalization History Bronchitis/clinical Pneumonia,hypoxia,sepsis - Via [facility] [place], operated by [facility] 06/21/17 Hospitalization History [facility]- Cardiomyopathy, Defibrillator discharge 01/04/2018 Hospitalization History CHF 02/09/2018
--- OUTSIDE RECORDS SUMMARY | 2018-06-08 14:41 | XMS REPORT ---
Author Author ABHINAV GONZALEZ [facility] Address [address] [place] [address] Care Team Providers Care Wind Up Operator Name Role Phone ABHINAV GONZALEZ Unavailable PROBLEMS Type Condition ICD9-CM Code HFR60-TT Code Onset Dates Condition Status SNOMED Code Problem Cardiac defibrillator in place Z95.810 Active 425684304 Problem Essential hypertension I10 Active 66061057 Problem Coronary artery disease involving north fork coronary artery of north fork heart without angina pectoris I25.10 Active 0211960241375 Problem Chronic congestive heart failure, unspecified congestive heart failure type I50.9 Active 34405621 Problem Type 2 diabetes mellitus without complications E11.9 Active 912609377 Problem exterminator termite current use of insulin Z79.4 Active 454561171 Problem Stasis dermatitis of both legs I87.2 Active 04980936 Problem Chronic obstructive pulmonary disease, unspecified COPD type J44.9 Active 99224080 Problem Other atherosclerosis of north fork arteries of extremities, 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 Active 30225804 Problem Ventricular arrhythmia I49.9 Active 85457897 ALLERGIES No Information ENCOUNTERS Encounter Location Date Diagnosis [facility] [address] [address]- 6760 Mar, [facility] [address] [address]- 1854 Feb, [facility] [address] [place] [address] 91659- 2653 Feb, [facility] [id number] [place] [address] 09602- 4134 Feb, [facility] [address], [place] [address]- 8484 Jan, [facility] [id number] [place] [address] 64460- 4781 Jan, [facility] [address], [place] [address]- 6910 Jan, Acute cystitis with hematuria N30.01 and Dysuria R30.0 [facility] [address], [place] [address]- 3417 Jan, [facility] [id number] [place] [address] 12294- 5593 Jan, [facility] [id number] [address]- 8042 Jan, [facility] [id number] [place] [address] 98703- 3406 Jan, Type 2 diabetes mellitus without complications E11.9 ; exterminator termite current use of insulin Z79.4 ; History of respiratory failure Z87.09 and History of sepsis Z86.19 [facility] [id number] [place] [address] 77900- 3055 Jan, [facility] [address] [place] [address] 79465- 4794 Jan, [facility] [id number] [place] [address] 37455- 5947 Jan, [facility] [address], [place] [address]- 7176 Jan, [facility] [address], [place] [address]- 5341 Jan, [facility] [address], [place] [address]- 5155 Dec, [facility] [id number] [place] [address] 13757 -3406 November, Acute cystitis without hematuria N30.00 [facility] [address], [place] [address] November, Acute cystitis without hematuria N30.00 [facility] [address], [place] [address]- 6809 November, [facility] [id number] [place] [address] 55506- 1265 Oct, Medicare annual wellness visit, initial Z00.00 ; Encounter for immunization Z23 ; Chronic obstructive pulmonary disease, unspecified COPD type J44.9 ; Coronary artery disease involving north fork coronary artery of north fork heart without angina pectoris I25.10 ; Chronic congestive heart failure, unspecified congestive heart failure type I50.9 ; Essential hypertension I10 ; Ventricular arrhythmia I49.9 and Other atherosclerosis of north fork arteries of extremities, 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 [facility] [id number] [place] [address] 39087- 8080 Sep, Chronic congestive heart failure, unspecified congestive heart failure type I50.9 [facility] [id number] [address]- 4398 Aug, [facility] [id number] [place] [address] 34558- 8737 13 Aug, 2017 Chronic congestive heart failure, unspecified congestive heart failure type I50.9 ; Chronic obstructive pulmonary disease, unspecified COPD type J44.9 and Bilateral impacted cerumen H61.23 [facility] [address], [place] [address]- 5001 Jul, [facility] [address], [place] [address]- 5500 Jul, [facility] [address] [place] [address] 57352- 0006 Jun, [facility] [id number] [place] [address] 52304- 8074 Jun, [facility] [id number] [place] [address] 93656- 6377 Jun, Coronary artery disease involving north fork coronary artery of north fork heart without angina pectoris I25.10 [facility] [id number] [place] [address] 43287- 4064 Jun, [facility] [address] [place] [address] 48203- 9242 May, Chronic obstructive pulmonary disease, unspecified COPD type J44.9 and History of pneumonia Z87.01 [facility] [id number] [place] [address] [id number] May, [facility] [id number] [place] [address] 56162- 0905 May, [facility] [id number] [place] [address] 01463- 7733 May, [facility] [id number] [place] [address] 62327- 2491 May, [facility] [id number] [place] [address] 58455- 1512 Apr, [facility] [id number] [place] [address] 95923- 9174 Apr, Coronary artery disease involving north fork coronary artery of north fork heart without angina pectoris I25.10 and Ventricular arrhythmia I49.9 [facility] [id number] [place] [address] 94216- 2377 Apr, [facility] [address] [place] [address] 71911- 7017 Apr, [facility] [address] [place] [address] 09804 -0171 Apr, Dysuria R30.0 and Acute cystitis without hematuria N30.00 [facility] [address] [place] [address] 76896- 1611 Feb, Epistaxis R04.0 and Chronic obstructive pulmonary disease, unspecified COPD type J44.9 [facility] [address] [place] [address] 28647- 2920 Jan, Fall from other pedestrian conveyance, initial encounter V00.891A [facility] [address] [facility] [id number] [address]- 0[address] Jan, Chronic congestive heart failure, unspecified congestive heart failure type I50.9 ; Chronic obstructive pulmonary disease, unspecified COPD type J44.9 and Stasis dermatitis of both legs I87.2 [facility] [id number] [address]- 0219 November, Chronic congestive heart failure, unspecified congestive heart failure type I50.9 [facility] [id number] [address]- 9269 November, Coronary artery disease involving north fork coronary artery of north fork heart without angina pectoris I25.10 ; Chronic congestive heart failure, unspecified congestive heart failure type I50.9 and Chronic obstructive pulmonary disease, unspecified COPD type J44.9 [facility] [address], [place] [address]- 4510 Oct, [facility] [address], [place] [address]- 0013 Oct, [facility] [id number] [id number] Oct, [facility] [id number] [id number] Sep, Via [facility] [address] [place] [id number] Sep, Essential hypertension I10 and Chronic congestive heart failure, unspecified congestive heart failure type I50.9 [facility] [id number] [id number] Sep, [facility] [id number], [place] [address]- 3529 Sep, [facility] [id number] [address]- 2662 Jun, [facility] [id number] [address]- 6293 Jun, [facility] [address], [place] [address]- 6378 May, [facility] [address], [place] [address]- 2755 May, [facility] [address], [place] [address]- 2200 May, [facility] [address] [place] [address] 24210- 1982 May, [facility] [address] [place] [address] 78644- 1087 May, Chronic congestive heart failure, unspecified congestive heart failure type I50.9 [facility] [address] [place] [address] 02158 -5671 May, Pain of right lower extremity M79.604 ; History of atrial fibrillation without current medication Z86.79 and Acute deep vein thrombosis ( DVT) of femoral vein of right lower extremity I82.411 [facility] [address], [place] [address]- 9019 May, [facility] [address] [place] [address] 41558- 0638 Feb, [facility] [address], [place] [address]- 8919 Feb, Coronary artery disease involving north fork coronary artery of north fork heart without angina pectoris I25.10 ; Chronic congestive heart failure, unspecified congestive heart failure type I50.9 ; Cardiac defibrillator in place Z95.810 and Candidiasis B37.9 IMMUNIZATIONS No Known Immunizations SOCIAL HISTORY Never Assessed REASON FOR VISIT question PLAN OF CARE VITAL SIGNS MEDICATIONS Unknown Medications RESULTS No Results PROCEDURES No Known procedures INSTRUCTIONS MEDICATIONS ADMINISTERED No Known Medications MEDICAL (GENERAL) HISTORY Type Description Date Medical History hypertension Medical History skin cancer-arms, face Medical History [place] Medical History Pneumonia Surgical History heart cath-2 stents, multiple balloons Surgical History open heart surgery 1987 Surgical History defibrillator placed 2013 Hospitalization History surgery Hospitalization History pneumonia 2014 Hospitalization History broken left hip at September Hospitalization History Bronchitis/clinical Pneumonia,hypoxia,sepsis - Via [facility] 06/21/17 Hospitalization History [facility]- Cardiomyopathy, Defibrillator discharge 01/04/2018 Hospitalization History CHF 02/09/2018
--- OUTSIDE RECORDS SUMMARY | 2018-06-08 14:42 | XMS REPORT ---
Author Author ABHINAV GONZALEZ [facility] Address [address] [place] [address] Care Team Providers Care Structural Draftsman Name Role Phone ABHINAV GONZALEZ Unavailable PROBLEMS Type Condition ICD9-CM Code ZQB52-OL Code Onset Dates Condition Status SNOMED Code Problem Cardiac defibrillator in place Z95.810 Active 153217442 Problem Essential hypertension I10 Active 01963142 Problem Coronary artery disease involving [place] coronary artery of [place] heart without angina pectoris I25.10 Active [id number] Problem Chronic congestive heart failure, unspecified congestive heart failure type I50.9 Active 37267562 Problem Type 2 diabetes mellitus without complications E11.9 Active 510652368 Problem 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 Z79.4 Active 242355769 Problem Stasis dermatitis of both legs I87.2 Active 08893493 Problem Chronic obstructive pulmonary disease, unspecified COPD type J44.9 Active 77130695 Problem Other atherosclerosis of [place] arteries of extremities, 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 Active 96565621 Problem Ventricular arrhythmia I49.9 Active 75400492 ALLERGIES No Information ENCOUNTERS Encounter Location Date Diagnosis [facility] [address] [address] Feb, [facility] [address] [address] 7366 Feb, [facility] [address] [address] 0156 Feb, [facility] [id number] [place] [address] 97634- 1994 Jan, [facility] [address] [address] 5568 Jan, [facility] [id number] [place] [address] 84556- 6579 Jan, Acute cystitis with hematuria N30.01 and Dysuria R30.0 [facility] [id number] [place] [address] 62205- 0370 Jan, [facility] [id number] [place] [address] 71906- 2908 Jan, [facility] [id number] [place] [address] 33059- 8635 Jan, [facility] [id number] [place] [address] 31028- 5387 Jan, Type 2 diabetes mellitus without complications E11.9 ; 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 Z79.4 ; History of respiratory failure Z87.09 and History of sepsis Z86.19 [facility] [id number] [place] [address] 46992- 9927 Jan, [facility] [id number] [place] [address] 14530- 1132 Jan, [facility] [id number] [place] [address] 39177- 4953 Jan, [facility] [id number] [place] [address] 53250- 1089 Jan, [facility] [address] [address]- 9201 Jan, [facility] [id number] [place] [address] 29114- 6807 Dec, [facility] [address] [address] November, Acute cystitis without hematuria N30.00 [facility] [id number] [place] [address] 98413 -9634 November, Acute cystitis without hematuria N30.00 [facility] [address] [address] 6809 November, [facility] [address] [address]- 5095 Oct, Medicare annual wellness visit, initial Z00.00 ; Encounter for immunization Z23 ; Chronic obstructive pulmonary disease, unspecified COPD type J44.9 ; Coronary artery disease involving [place] coronary artery of [place] heart without angina pectoris I25.10 ; Chronic congestive heart failure, unspecified congestive heart failure type I50.9 ; Essential hypertension I10 ; Ventricular arrhythmia I49.9 and Other atherosclerosis of [place] arteries of extremities, 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 [facility] [id number] [address] 7109 Sep, Chronic congestive heart failure, unspecified congestive heart failure type I50.9 [facility] [id number] [place] [address] 30009- 8572 Aug, [facility] [id number] [place] [address] 73541- 5072 13 Aug, 2017 Chronic congestive heart failure, unspecified congestive heart failure type I50.9 ; Chronic obstructive pulmonary disease, unspecified COPD type J44.9 and Bilateral impacted cerumen H61.23 [facility] [id number] [place] [address] 12571- 4107 Jul, [facility] [address] [place] [address] 91409- 0925 Jul, [facility] [address] [address]- 6486 Jun, [facility] [address] [place] [address] 59397- 1696 Jun, [facility] [id number] [place] [address] 99603- 0603 12 Jun, 2017 Coronary artery disease involving [place] coronary artery of [place] heart without angina pectoris I25.10 [facility] [address] [address]- 9969 Jun, [facility] [id number] [place] [address] 03656- 5365 May, Chronic obstructive pulmonary disease, unspecified COPD type J44.9 and History of pneumonia Z87.01 [facility] [id number] [place] [address] [id number] May, [facility] [id number] [place] [address] 74666- 2908 May, [facility] [id number] [place] [address] 23873- 7908 May, [facility] [id number] [place] [address] 76565- 9537 May, [facility] [id number] [place] [address] 02184- 2944 Apr, [facility] [id number] [place] [address] 22010- 9336 Apr, Coronary artery disease involving [place] coronary artery of [place] heart without angina pectoris I25.10 and Ventricular arrhythmia I49.9 [facility] [address] [place] [address] 35001- 8743 Apr, [facility] [id number] [place] [address] 99500- 7323 Apr, [facility] [id number] [place] [address] 58607 -7906 Apr, Dysuria R30.0 and Acute cystitis without hematuria N30.00 [facility] [address] [place] [address] 62463- 3009 Feb, Epistaxis R04.0 and Chronic obstructive pulmonary disease, unspecified COPD type J44.9 [facility] [id number] [place] [address] 47038- 0671 Jan, Fall from other pedestrian conveyance, initial encounter V00.891A [facility] [id number] [place] [address] 04894- 2048 Jan, Chronic congestive heart failure, unspecified congestive heart failure type I50.9 ; Chronic obstructive pulmonary disease, unspecified COPD type J44.9 and Stasis dermatitis of both legs I87.2 [facility] [address] [facility] [id number] [address] [address]76 November, Chronic congestive heart failure, unspecified congestive heart failure type I50.9 [facility] [address] [facility] [id number] [address] 8941 November, Coronary artery disease involving [place] coronary artery of [place] heart without angina pectoris I25.10 ; Chronic congestive heart failure, unspecified congestive heart failure type I50.9 and Chronic obstructive pulmonary disease, unspecified COPD type J44.9 [facility] [address] [address] 7781 Oct, [facility] [address] [address] 3350 Oct, [facility] [id number] [place] [address] [id number] Oct, [facility] [id number] [address] Sep, Via [facility] [address] [place] [id number] Sep, Essential hypertension I10 and Chronic congestive heart failure, unspecified congestive heart failure type I50.9 [facility] [id number] [place] [id number] Sep, [facility] [id number] [address] 4049 Sep, [facility] [id number] 7760 Jun, [facility] [address] [address]- 3934 Jun, [facility] [id number] 5748 May, [facility] [address] [address]- 7111 May, [facility] [address] [address]- 9770 May, [facility] [address] [address]- 8042 May, [facility] [address] [address]- 2018 May, Chronic congestive heart failure, unspecified congestive heart failure type I50.9 [facility] [address] [address]28 May, Pain of right lower extremity M79.604 ; History of atrial fibrillation without current medication Z86.79 and Acute deep vein thrombosis ( DVT) of femoral vein of right lower extremity I82.411 [facility] [id number] [place] [address] 23488- 5539 May, [facility] [address] [address]- 1563 Feb, [facility] [id number] [place] [address] 00886- 3916 Feb, Coronary artery disease involving [place] coronary artery of [place] heart without angina pectoris I25.10 ; Chronic [...] September Hospitalization History Bronchitis/clinical Pneumonia,hypoxia,sepsis - Via [facility] 06/21/17 Hospitalization History [facility]- Cardiomyopathy, Defibrillator discharge 01/04/2018 Hospitalization History CHF 02/09/2018
--- OUTSIDE RECORDS SUMMARY | 2018-06-08 14:42 | XMS REPORT ---
Author Author ABHINAV GONZALEZ [facility] Address [address] [place] [address] Care Team Providers Care Corporate Risk Analyst Name Role Phone ABHINAV GONZALEZ Unavailable PROBLEMS Type Condition ICD9-CM Code GSE44-WD Code Onset Dates Condition Status SNOMED Code Problem Cardiac defibrillator in place Z95.810 Active 000506456 Problem Essential hypertension I10 Active 83124499 Problem Coronary artery disease involving [place] coronary artery of [place] heart without angina pectoris I25.10 Active 7377045268236 Problem Chronic congestive heart failure, unspecified congestive heart failure type I50.9 Active 43680208 Problem Type 2 diabetes mellitus without complications E11.9 Active 169036474 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 860745795 Problem Stasis dermatitis of both legs I87.2 Active 66883759 Problem Chronic obstructive pulmonary disease, unspecified COPD type J44.9 Active 92850793 Problem Other atherosclerosis of [place] arteries of extremities, 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 Active 35846147 Problem Ventricular arrhythmia I49.9 Active 41820897 ALLERGIES No Information ENCOUNTERS Encounter Location Date Diagnosis [facility] [address] [address]- 6632 Feb, [facility] [address] [address]- 3388 Feb, [facility] [address] [address]- 2920 Feb, [facility] [id number] [place] [address] 57593- 6773 Jan, [facility] [address] [address]- 6912 Jan, [facility] [id number] [place] [address] 69020- 7408 Jan, Acute cystitis with hematuria N30.01 and Dysuria R30.0 [facility] [id number] [place] [address] 42391- 6809 Jan, [facility] [id number] [place] [address] 64388- 6398 Jan, [facility] [id number] [place] [address] 69118- 6141 Jan, [facility] [id number] [place] [address] 63013- 2058 Jan, Type 2 diabetes mellitus without complications E11.9 ; 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 ; History of respiratory failure Z87.09 and History of sepsis Z86.19 [facility] [id number] [place] [address] 44151- 1781 Jan, [facility] [id number] [place] [address] 73840- 1672 Jan, [facility] [id number] [place] [address] 93286- 5917 Jan, [facility] [id number] [place] [address] 00804- 5462 Jan, [facility] [address] [address]- 8406 Jan, [facility] [id number] [place] [address] 56872- 7368 Dec, [facility] [address] [address] November, Acute cystitis without hematuria N30.00 [facility] [address] [place] [address] 74918 -7547 November, Acute cystitis without hematuria N30.00 [facility] [address] [address]- 0354 November, [facility] [address] [address]- 0873 Oct, Medicare annual wellness visit, initial Z00.00 ; Encounter for immunization Z23 ; Chronic obstructive pulmonary disease, unspecified COPD type J44.9 ; Coronary artery disease involving [place] coronary artery of [place] heart without angina pectoris I25.10 ; Chronic congestive heart failure, unspecified congestive heart failure type I50.9 ; Essential hypertension I10 ; Ventricular arrhythmia I49.9 and Other atherosclerosis of [place] arteries of extremities, 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 [facility] [facility] [id number] [address]- 9403 Sep, Chronic congestive heart failure, unspecified congestive heart failure type I50.9 [facility] [id number] [place] [address] 97682- 9115 Aug, [facility] [id number] [place] [address] 15409- 0136 13 Aug, 2017 Chronic congestive heart failure, unspecified congestive heart failure type I50.9 ; Chronic obstructive pulmonary disease, unspecified COPD type J44.9 and Bilateral impacted cerumen H61.23 [facility] [id number] [place] [address] 62629- 4881 Jul, [facility] [address] [place] [address] 89610- 5174 Jul, [facility] [address] [address]- 6113 Jun, [facility] [facility] [address] [place] [address] 42615- 8428 Jun, [facility] [id number] [place] [address] 87726- 1070 12 Jun, 2017 Coronary artery disease involving [place] coronary artery of [place] heart without angina pectoris I25.10 [facility] [address] [address]- 8419 Jun, [facility] [facility] [id number] [place] [address] 95267- 8483 May, Chronic obstructive pulmonary disease, unspecified COPD type J44.9 and History of pneumonia Z87.01 [facility] [id number] [place] [address] [id number] May, [facility] [address] [place] [address] 80557- 3481 May, [facility] [id number] [place] [address] 66200- 4827 May, [facility] [id number] [place] [address] 84261- 5589 May, [facility] [id number] [place] [address] 10542- 7727 Apr, [facility] [id number] [place] [address] 60082- 8162 Apr, Coronary artery disease involving [place] coronary artery of [place] heart without angina pectoris I25.10 and Ventricular arrhythmia I49.9 [facility] [address] [place] [address] 23979- 9739 Apr, [facility] [id number] [place] [address] 49630- 7213 Apr, [facility] [address] [place] [address] 93607 -3276 Apr, Dysuria R30.0 and Acute cystitis without hematuria N30.00 [facility] [address] [place] [address] 35733- 7364 Feb, Epistaxis R04.0 and Chronic obstructive pulmonary disease, unspecified COPD type J44.9 [facility] [id number] [place] [address] 32757- 6033 Jan, Fall from other pedestrian conveyance, initial encounter V00.891A [facility] [facility] [id number] [place] [address] 78742- 7680 Jan, Chronic congestive heart failure, unspecified congestive heart failure type I50.9 ; Chronic obstructive pulmonary disease, unspecified COPD type J44.9 and Stasis dermatitis of both legs I87.2 [facility] [address] [facility] [id number] [address] 5775 November, Chronic congestive heart failure, unspecified congestive heart failure type I50.9 [facility] [address] [facility] [id number] 2877 November, Coronary artery disease involving [place] coronary artery of [place] heart without angina pectoris I25.10 ; Chronic congestive heart failure, unspecified congestive heart failure type I50.9 and Chronic obstructive pulmonary disease, unspecified COPD type J44.9 [facility] [address] [address]- 5483 Oct, [facility] [address] [address] 7157 Oct, [facility] [id number] [place] [address] [id number] Oct, [facility] [id number] [id number] Sep, Via [facility] [address] [place] [id number] Sep, Essential hypertension I10 and Chronic congestive heart failure, unspecified congestive heart failure type I50.9 [facility] [id number] [place] [id number] Sep, [facility] [id number] [address] 6318 Sep, [facility] [id number]- 9642 Jun, [facility] [address] [address] 3237 Jun, [facility] [id number] 5530 May, [facility] [address] [address]- 7857 May, [facility] [address] [address]- 7083 May, [facility] [address] [address]- 1675 May, [facility] [address] [address]- 0318 May, Chronic congestive heart failure, unspecified congestive heart failure type I50.9 [facility] [address] [address]31 May, Pain of right lower extremity M79.604 ; History of atrial fibrillation without current medication Z86.79 and Acute deep vein thrombosis ( DVT) of femoral vein of right lower extremity I82.411 [facility] [id number] [place] [address] 64952- 0468 May, [facility] [address] [address]- 7636 Feb, [facility] [address] [place] [address] 47796- 6404 Feb, Coronary artery disease involving houl[place] coronary artery of [place]oul[place] heart without angina pectoris I25.10 ; Chronic [...] Medical History skin cancer-arms, face Medical History [place] Medical History Pneumonia Surgical History heart cath-2 stents, multiple balloons Surgical History open heart surgery 1987 Surgical History defibrillator placed 2013 Hospitalization History surgery Hospitalization History pneumonia 2014 Hospitalization History broken left hip at September Hospitalization History Bronchitis/clinical Pneumonia,hypoxia,sepsis - Via [facility] 06/21/17 Hospitalization History [facility]- Cardiomyopathy, Defibrillator discharge 01/04/2018 Hospitalization History CHF 02/09/2018
--- OUTSIDE RECORDS SUMMARY | 2018-06-08 14:42 | XMS REPORT ---
Author Author ABHINAV GONZALEZ [facility] Address [address] [place] [address] Care Team Providers Care Fisher Terrapin Name Role Phone ABHINAV GONZALEZ Unavailable PROBLEMS Type Condition ICD9-CM Code DJS92-VR Code Onset Dates Condition Status SNOMED Code Problem Cardiac defibrillator in place Z95.810 Active 204437588 Problem Essential hypertension I10 Active 05547592 Problem Coronary artery disease involving [place] coronary artery of [place] heart without angina pectoris I25.10 Active 0945374150290 Problem Chronic congestive heart failure, unspecified congestive heart failure type I50.9 Active 29989639 Problem Type 2 diabetes mellitus without complications E11.9 Active 219502899 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 957078532 Problem Stasis dermatitis of both legs I87.2 Active 87273936 Problem Chronic obstructive pulmonary disease, unspecified COPD type J44.9 Active 28167323 Problem Other atherosclerosis of [place] arteries of extremities, 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 Active 04244651 Problem Ventricular arrhythmia I49.9 Active 51751211 ALLERGIES Substance Reaction Event Type Date Status Penicillin V Potassium rash Drug Allergy Jan, Active Codeine Phosphate Unknown Drug Allergy Jan, Active ENCOUNTERS Encounter Location Date Diagnosis [facility] [id number] [address] Feb, [facility] [address] [address] 0[address] Feb, [facility] [id number] [place] [address] 87959- 0615 Feb, [facility] [address] [address] 1797 Jan, [facility] [id number] [place] [address] 37555- 4544 Jan, [facility] [address] [address] 3410 Jan, Acute cystitis with hematuria N30.01 and Dysuria R30.0 [facility] [address] [address] 3392 Jan, [facility] [address] [address] 7999 Jan, [facility] [address] [address] 0711 Jan, [facility] [address] [place] [address] 86698- 8783 Jan, Type 2 diabetes mellitus without complications E11.9 ; correction current use of insulin Z79.4 ; History of respiratory failure Z87.09 and History of sepsis Z86.19 [facility] [address] [address] 8563 Jan, [facility] [address] [address] 4242 Jan, [facility] [id number] [place] [address] 94540- 5169 Jan, [facility] [address] [address] 2830 Jan, [facility] [address] [address] 4417 Jan, [facility] [address] [address] 4062 Dec, [facility] [address] [address] November, Acute cystitis without hematuria N30.00 [facility] [address] [address] November, Acute cystitis without hematuria N30.00 [facility] [address] [address] 8990 November, [place] [address] [place] [address] 02515- 1207 Oct, Medicare annual wellness visit, initial Z00.00 ; Encounter for immunization Z23 ; Chronic obstructive pulmonary disease, unspecified COPD type J44.9 ; Coronary artery disease involving [place] coronary artery of [place] heart without angina pectoris I25.10 ; Chronic congestive heart failure, unspecified congestive heart failure type I50.9 ; Essential hypertension I10 ; Ventricular arrhythmia I49.9 and Other atherosclerosis of [place] arteries of extremities, 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 [place] [id number] [place] [address] 23662- 1284 Sep, Chronic congestive heart failure, unspecified congestive heart failure type I50.9 [place] [id number] [address] 4727 20 Aug, 2017 [place] [id number] [place] [address] 13299- 7913 13 Aug, 2017 Chronic congestive heart failure, unspecified congestive heart failure type I50.9 ; Chronic obstructive pulmonary disease, unspecified COPD type J44.9 and Bilateral impacted cerumen H61.23 [place] [address] [address] 8113 Jul, [place] [address] [address]- 5492 Jul, [place] [id number] [place] [address] 85250- 6041 Jun, [place] [address] [place] [address] 38592- 6485 Jun, [place] [address] [place] [address] 28091- 0437 12 Jun, 2017 Coronary artery disease involving [place] coronary artery of [place] heart without angina pectoris I25.10 [place] [id number] [place] [address] 81682- 1277 Jun, [facility] [address] [address] 8344 May, Chronic obstructive pulmonary disease, unspecified COPD type J44.9 and History of pneumonia Z87.01 [facility] [id number] [address] May, [facility] [id number] [place] [address] 68793- 7695 May, [facility] [id number] [place] [address] 74825- 1213 May, [facility] [id number] [place] [address] 20579- 4486 May, [facility] [id number] [place] [address] 36290- 3542 Apr, [facility] [id number] [place] [address] 04800- 7326 Apr, Coronary artery disease involving [place] coronary artery of [place] heart without angina pectoris I25.10 and Ventricular arrhythmia I49.9 [facility] [id number] [place] [address] 89236- 1655 Apr, [facility] [id number] [place] [address] 06707- 8548 Apr, [facility] [address] [place] [address] 24682 -5025 Apr, Dysuria R30.0 and Acute cystitis without hematuria N30.00 [facility] [address] [place] [address] 92999- 2494 Feb, Epistaxis R04.0 and Chronic obstructive pulmonary disease, unspecified COPD type J44.9 [facility] [address] [address] 2425 Jan, Fall from other pedestrian conveyance, initial encounter V00.891A [facility] [address] [address] 5469 Jan, Chronic congestive heart failure, unspecified congestive heart failure type I50.9 ; Chronic obstructive pulmonary disease, unspecified COPD type J44.9 and Stasis dermatitis of both legs I87.2 [facility] [address] [address] 0803 November, Chronic congestive heart failure, unspecified congestive heart failure type I50.9 [facility] [address] [address] 9652 November, Coronary artery disease involving [place] coronary artery of [place] heart without angina pectoris I25.10 ; Chronic congestive heart failure, unspecified congestive heart failure type I50.9 and Chronic obstructive pulmonary disease, unspecified COPD type J44.9 [facility] [address] [address]- 4652 Oct, [facility] [address] [address]- 5330 Oct, [facility] [id number] [place] [address] [id number] Oct, [facility] [id number] [place] [address] [id number] Sep, [facility] [address] [place] [id number] Sep, Essential hypertension I10 and Chronic congestive heart failure, unspecified congestive heart failure type I50.9 [facility] [id number] [address] Sep, [facility] [address] [address]- 2777 Sep, [facility] [address] [address]- 5091 Jun, [facility] [address] [address]- 0734 Jun, [facility] [address] [address]- 3319 May, [facility] [address] [address]- 8267 May, [facility] [id number] [place] [address] 66738- 7595 May, [facility] [id number] [place] [address] 05295- 0011 May, [facility] [id number] [place] [address] 49978- 5020 May, Chronic congestive heart failure, unspecified congestive heart failure type I50.9 [facility] [address] [place] [address] 27270 -9897 May, Pain of right lower extremity M79.604 ; History of atrial fibrillation without current medication Z86.79 and Acute deep vein thrombosis ( DVT) of femoral vein of right lower extremity I82.411 [facility] [id number] [place] [address] 42241- 1699 May, [facility] [address] [place] [address] 51799- 0343 Feb, [facility] [id number] [place] [address] 34460- 0066 Feb, Coronary artery disease involving [place] coronary artery of [place] heart without angina pectoris I25.10 ; Chronic congestive heart failure, unspecified congestive heart failure type I50.9 ; Cardiac defibrillator in place Z95.810 and Candidiasis B37.9 IMMUNIZATIONS No Known Immunizations SOCIAL HISTORY Never Assessed REASON FOR VISIT hospital f/u-RIA arauz PLAN OF CARE Activity Details Follow Up 4 Months Reason: Pending Test A1C (IN HOUSE) VITAL SIGNS Height 65 in 2018-02-14 Weight 215.0 lbs 2018-02-14 Temperature 98.1 degrees Fahrenheit 2018-02-14 Heart Rate 90 bpm 2018-02-14 Respiratory Rate 20 2018-02-14 Oximetry w/ oxygen @ 2L:94 % 2018-02-14 BMI 35.77 kg/m2 2018-02-14 Blood pressure systolic 130 mmHg 2018-02-14 Blood pressure diastolic 64 mmHg 2018-02-14 MEDICATIONS Medication Instructions Dosage Frequency Start Date End Date Duration Status Nexium 40 MG Orally Once a day 1 capsule 24h Active Wheelchair - to use for Mobility 24h 13 Aug, 2017 Active Albuterol Sulfate 1.25 MG/3ML Inhalation 2 times a day as directed 12h May, Active Amiodarone HCl 200 mg Orally three times a week on Sun, Wed, Sat. in addition to daily dose 2 tablets at 1999 Active Nebulizer - as directed May, Active Amlodipine Besylate 5 MG Orally Once a day 1 tablet 24h Active Furosemide 40 mg Orally twice a day 1 tablet 12h Active Amiodarone HCl 200 mg Orally Once a day 1 tablet 24h Active Oxygen Active Digoxin 125 MCG Orally Once a day 1 tablet 24h Active Levemir 100 UNIT/ML Subcutaneous Once a day 10 units 24h Jan, Active RESULTS No Results PROCEDURES Procedure Date Ordered Result Body Site GLYCATED HEMOGLOBIN TEST February 14, 2018 [facility] VISIT ESTABLISHED PATIENT February 14, 2018 INSTRUCTIONS MEDICATIONS ADMINISTERED No Known Medications MEDICAL (GENERAL) HISTORY Type Description Date Medical History hypertension Medical History skin cancer-arms, face Medical History ID Medical History Pneumonia Surgical History heart cath-2 stents, multiple balloons Surgical History open heart surgery 1987 Surgical History defibrillator placed 2013 Hospitalization History surgery Hospitalization History pneumonia 2014 Hospitalization History broken left hip at September Hospitalization History Bronchitis/clinical Pneumonia,hypoxia,sepsis - [facility] [place] 06/21/17 Hospitalization History [facility]- Cardiomyopathy, Defibrillator discharge 01/04/2018 Hospitalization History CHF 02/09/2018
--- OUTSIDE RECORDS SUMMARY | 2018-06-08 14:42 | XMS REPORT ---
Author Author ABHINAV GONZALEZ [facility] Address [address] [place] [address] Care Team Providers Care Die Equipment Operator Name Role Phone ABHINAV GONZALEZ Unavailable PROBLEMS Type Condition ICD9-CM Code PFO12-PU Code Onset Dates Condition Status SNOMED Code Problem Cardiac defibrillator in place Z95.810 Active 524463645 Problem Essential hypertension I10 Active 45291204 Problem Coronary artery disease involving [place] coronary artery of [place] heart without angina pectoris I25.10 Active 8062597858619 Problem Chronic congestive heart failure, unspecified congestive heart failure type I50.9 Active 83657096 Problem Type 2 diabetes mellitus without complications E11.9 Active 557822667 Problem watermaster current use of insulin Z79.4 Active 893610188 Problem Stasis dermatitis of both legs I87.2 Active 94298225 Problem Chronic obstructive pulmonary disease, unspecified COPD type J44.9 Active 79924881 Problem Other atherosclerosis of [place] arteries of extremities, 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 Active 99836571 Problem Ventricular arrhythmia I49.9 Active 62228507 ALLERGIES No Information ENCOUNTERS Encounter Location Date Diagnosis [facility] [address], [place] [address]- 3[address] Feb, [facility] [address], [place] [address]- 0477 Feb, [facility] [address], [place] [address]- 5296 Feb, [facility] [id number] [place] [address] 21185- 9341 Jan, [facility] [address], [place] [address]- 6638 Jan, [facility] [id number] [place] [address] 49173- 9450 Jan, Acute cystitis with hematuria N30.01 and Dysuria R30.0 [facility] [id number] [place] [address] 68668- 7426 Jan, [facility] [id number] [place] [address] 98113- 2033 Jan, [facility] [id number] [place] [address] 93108- 9521 Jan, [facility] [id number] [place] [address] 72153- 7483 Jan, Type 2 diabetes mellitus without complications E11.9 ; watermaster current use of insulin Z79.4 ; History of respiratory failure Z87.09 and History of sepsis Z86.19 [facility] [id number] [place] [address] 79598- 5658 Jan, [facility] [id number] [place] [address] 92079- 8737 Jan, [facility] [id number] [place] [address] 93539- 8267 Jan, [facility] [id number] [place] [address] 96988- 2627 Jan, [facility] [address], [place] [address]- 1726 Jan, [facility] [id number] [place] [address] 03937- 8850 Dec, [facility] [address], [place] [address] November, Acute cystitis without hematuria N30.00 [facility] [address] [place] [address] 12427 -5218 November, Acute cystitis without hematuria N30.00 [facility] [address], [place] [address]- 4749 November, [facility] [address], [place] [address]- 8582 Oct, Medicare annual wellness visit, initial Z00.00 ; Encounter for immunization Z23 ; Chronic obstructive pulmonary disease, unspecified COPD type J44.9 ; Coronary artery disease involving [place] coronary artery of [place] heart without angina pectoris I25.10 ; Chronic congestive heart failure, unspecified congestive heart failure type I50.9 ; Essential hypertension I10 ; Ventricular arrhythmia I49.9 and Other atherosclerosis of [place] arteries of extremities, 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 [place] [id number], [place] [address]- 0326 Sep, Chronic congestive heart failure, unspecified congestive heart failure type I50.9 [place] [id number] [place] [address] 06964- 3441 Aug, [place] [id number] [place] [address] 67571- 4314 13 Aug, 2017 Chronic congestive heart failure, unspecified congestive heart failure type I50.9 ; Chronic obstructive pulmonary disease, unspecified COPD type J44.9 and Bilateral impacted cerumen H61.23 [place] [id number] [place] [address] 84902- 5682 Jul, [place] [address] [place] [address] 20086- 3702 Jul, [place] [address], [place] [address]- 2822 Jun, [place] [address] [place] [address] 08184- 1120 Jun, [place] [id number] [place] [address] 53978- 8630 12 Jun, 2017 Coronary artery disease involving [place] coronary artery of [place] heart without angina pectoris I25.10 [place] [address], [place] [address]- 4243 Jun, [place] [id number] [place] [address] 54469- 9256 May, Chronic obstructive pulmonary disease, unspecified COPD type J44.9 and History of pneumonia Z87.01 [facility] [id number] [place] [address] [id number] May, [facility] [address] [place] [address] 59985- 6421 May, [facility] [id number] [place] [address] 54551- 1277 May, [facility] [id number] [place] [address] 38779- 7546 May, [facility] [id number] [place] [address] 40130- 1723 Apr, [facility] [id number] [place] [address] 67060- 1199 Apr, Coronary artery disease involving [place] coronary artery of [place] heart without angina pectoris I25.10 and Ventricular arrhythmia I49.9 [facility] [address] [place] [address] 97869- 0645 Apr, [facility] [id number] [place] [address] 74405- 7379 Apr, [facility] [address] [place] [address] 51095 -2069 Apr, Dysuria R30.0 and Acute cystitis without hematuria N30.00 [facility] [address] [place] [address] 48622- 2290 Feb, Epistaxis R04.0 and Chronic obstructive pulmonary disease, unspecified COPD type J44.9 [facility] [id number] [place] [address] 24746- 8543 Jan, Fall from other pedestrian conveyance, initial encounter V00.891A [place] [id number] [place] [address] 06877- 2530 Jan, Chronic congestive heart failure, unspecified congestive heart failure type I50.9 ; Chronic obstructive pulmonary disease, unspecified COPD type J44.9 and Stasis dermatitis of both legs I87.2 [facility] [address] [facility] [id number] [address] [address]302 November, Chronic congestive heart failure, unspecified congestive heart failure type I50.9 [facility] [address] [facility] [id number] [address] 3852 November, Coronary artery disease involving [place] coronary artery of [place] heart without angina pectoris I25.10 ; Chronic congestive heart failure, unspecified congestive heart failure type I50.9 and Chronic obstructive pulmonary disease, unspecified COPD type J44.9 [facility] [address] [address]- 5651 Oct, [facility] [address] [address] 2805 Oct, [facility] [id number] [place] [address] [id number] Oct, [facility] [id number] [id number] Sep, [facility] [employer] [facility] [address] [place] [id number] Sep, Essential hypertension I10 and Chronic congestive heart failure, unspecified congestive heart failure type I50.9 [facility] [id number] [id number] Sep, [facility] [id number] [address]- 0193 Sep, [facility] [id number] 0748 Jun, [facility] [address] [address]- 9078 Jun, [facility] [id number] 0068 May, [facility] [address], [place] [address]- 8557 May, [facility] [address], [place] [address]- 7863 May, [facility] [address], [place] [address]- 0166 May, [facility] [address], [place] [address]- 7713 May, Chronic congestive heart failure, unspecified congestive heart failure type I50.9 [facility] [address], [place] [address] May, Pain of right lower extremity M79.604 ; History of atrial fibrillation without current medication Z86.79 and Acute deep vein thrombosis ( DVT) of femoral vein of right lower extremity I82.411 [facility] [id number] [place] [address] 21820- 7510 May, [facility] [address], [place] [address]- 6591 Feb, [facility] [address] [place] [address] 19730- 7863 Feb, Coronary artery disease involving [place] coronary artery of [place] heart without angina pectoris I25.10 ; Chronic congestive heart failure, unspecified congestive heart failure type I50.9 ; Cardiac defibrillator in place Z95.810 and Candidiasis B37.9 IMMUNIZATIONS No Known Immunizations SOCIAL HISTORY Never Assessed REASON FOR VISIT POC PLAN OF CARE VITAL SIGNS MEDICATIONS Unknown [...] [facility] 06/21/17 Hospitalization History [facility]- Cardiomyopathy, Defibrillator discharge 01/04/2018 Hospitalization History CHF 02/09/2018
--- OUTSIDE RECORDS SUMMARY | 2018-06-08 14:42 | XMS REPORT ---
Author Author ABHINAV GONZALEZ [facility] Address [address] [place] [address] Care Team Providers Care Home Health Specialist Name Role Phone ABHINAV GONZALEZ Unavailable PROBLEMS Type Condition ICD9-CM Code GGS94-GI Code Onset Dates Condition Status SNOMED Code Problem Cardiac defibrillator in place Z95.810 Active 000670837 Problem Essential hypertension I10 Active 46870528 Problem Coronary artery disease involving [place] coronary artery of [place] heart without angina pectoris I25.10 Active 3864650768963 Problem Chronic congestive heart failure, unspecified congestive heart failure type I50.9 Active 63202168 Problem Type 2 diabetes mellitus without complications E11.9 Active 467273938 Problem 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.4 Active 926038923 Problem Stasis dermatitis of both legs I87.2 Active 99275592 Problem Chronic obstructive pulmonary disease, unspecified COPD type J44.9 Active 05225580 Problem Other atherosclerosis of [place] arteries of extremities, 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 Active 56504940 Problem Ventricular arrhythmia I49.9 Active [id number] ALLERGIES No Information ENCOUNTERS Encounter Location Date Diagnosis [facility] [address] [address] Feb, [facility] [address], [place] [address] Feb, [facility] [address], [place] [address] 6194 Feb, [facility] [id number] [place] [address] 55332- 9257 Jan, [facility] [address], [place] [address] Jan, [facility] [id number] [place] [address] 14331- 4102 Jan, Acute cystitis with hematuria N30.01 and Dysuria R30.0 [facility] [id number] [place] [address] 36396- 5929 Jan, [facility] [id number] [place] [address] 42299- 7946 Jan, [facility] [id number] [place] [address] 11280- 4960 Jan, [facility] [id number] [place] [address] 45070- 6681 Jan, Type 2 diabetes mellitus without complications E11.9 ; 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.4 ; History of respiratory failure Z87.09 and History of sepsis Z86.19 [facility] [id number] [place] [address] 52927- 9807 Jan, [facility] [id number] [place] [address] 30712- 8588 Jan, [facility] [id number] [place] [address] 96721- 9325 Jan, [facility] [id number] [place] [address] 17160- 4544 Jan, [facility] [address], [place] [address] 1064 Jan, [facility] [id number] [place] [address] 76831- 1095 Dec, [facility] [address], [place] [address] November, Acute cystitis without hematuria N30.00 [facility] [address] [place] [address] 29642 [address]3740 November, Acute cystitis without hematuria N30.00 [facility] [address], [place] [address] 6314 November, [facility] [address], [place] [address] 0761 Oct, Medicare annual wellness visit, initial Z00.00 ; Encounter for immunization Z23 ; Chronic obstructive pulmonary disease, unspecified COPD type J44.9 ; Coronary artery disease involving [place] coronary artery of [place] heart without angina pectoris I25.10 ; Chronic congestive heart failure, unspecified congestive heart failure type I50.9 ; Essential hypertension I10 ; Ventricular arrhythmia I49.9 and Other atherosclerosis of [place] arteries of extremities, 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 [facility] [id number] [address] 2177 Sep, Chronic congestive heart failure, unspecified congestive heart failure type I50.9 [facility] [id number] [place] [address] 00163- 0988 Aug, [facility] [id number] [place] [address] 33852- 9361 13 Aug, 2017 Chronic congestive heart failure, unspecified congestive heart failure type I50.9 ; Chronic obstructive pulmonary disease, unspecified COPD type J44.9 and Bilateral impacted cerumen H61.23 [facility] [id number] [place] [address] 10732- 0695 Jul, [facility] [address] [place] [address] 22376- 5379 Jul, [facility] [address], [place] [address]- 2387 Jun, [facility] [address] [place] [address] 89056- 2572 Jun, [facility] [id number] [place] [address] 25878- 0160 12 Jun, 2017 Coronary artery disease involving [place] coronary artery of [place] heart without angina pectoris I25.10 [facility] [address] [address] 4712 Jun, [facility] [id number] [place] [address] 57907- 3327 May, Chronic obstructive pulmonary disease, unspecified COPD type J44.9 and History of pneumonia Z87.01 [facility] [id number] [place] [address] [id number] May, [facility] [address] [place] [address] 61882- 6466 May, [facility] [id number] [place] [address] 79400- 4109 May, [facility] [id number] [place] [address] 52204- 4534 May, [facility] [id number] [place] [address] 22681- 5726 Apr, [facility] [id number] [place] [address] 67112- 4243 Apr, Coronary artery disease involving [place] coronary artery of [place] heart without angina pectoris I25.10 and Ventricular arrhythmia I49.9 [facility] [address] [place] [address] 11416- 4013 Apr, [facility] [id number] [place] [address] 68678- 5250 Apr, [facility] [address] [place] [address] 26688 -3515 Apr, Dysuria R30.0 and Acute cystitis without hematuria N30.00 [facility] [address] [place] [address] 21586- 8046 Feb, Epistaxis R04.0 and Chronic obstructive pulmonary disease, unspecified COPD type J44.9 [facility] [id number] [place] [address] 30008- 6098 Jan, Fall from other pedestrian conveyance, initial encounter V00.891A [facility] [id number] [place] [address] 60472- 7458 Jan, Chronic congestive heart failure, unspecified congestive heart failure type I50.9 ; Chronic obstructive pulmonary disease, unspecified COPD type J44.9 and Stasis dermatitis of both legs I87.2 [facility] [address] [facility] [id number] [address] [address] November, Chronic congestive heart failure, unspecified congestive heart failure type I50.9 [facility] [address] [facility] [id number] [address] [address]88 November, Coronary artery disease involving [place] coronary artery of [place] heart without angina pectoris I25.10 ; Chronic congestive heart failure, unspecified congestive heart failure type I50.9 and Chronic obstructive pulmonary disease, unspecified COPD type J44.9 [facility] [address] [address] Oct, [facility] [address] [address] 0[address] Oct, [facility] [id number] [place] [address] [id number] Oct, [facility] [id number] [id number] Sep, Via [employer] [facility] [address] [place] [id number] Sep, Essential hypertension I10 and Chronic congestive heart failure, unspecified congestive heart failure type I50.9 [facility] [id number] [address] Sep, [facility] [id number] [address] 3505 Sep, [facility] [id number] 3146 Jun, [facility] [address] [address] 5758 Jun, [facility] [id number] 9930 May, [facility] [address], [place] [address]- 7046 May, [facility] [address], [place] [address]- 4001 May, [facility] [address], [place] [address]- 1934 May, [facility] [address], [place] [address]- 3936 May, Chronic congestive heart failure, unspecified congestive heart failure type I50.9 [facility] [address], [place] [address] May, Pain of right lower extremity M79.604 ; History of atrial fibrillation without current medication Z86.79 and Acute deep vein thrombosis ( DVT) of femoral vein of right lower extremity I82.411 [facility] [id number] [place] [address] 83078- 2177 May, [facility] [address], [place] [address]- 0506 Feb, [facility] [address] [place] [address] 14933- 3035 Feb, Coronary artery disease involving [place] coronary artery of [place] heart without angina pectoris I25.10 ; Chronic [...] Medical History skin cancer-arms, face Medical History [place] Medical History Pneumonia Surgical History heart cath-2 stents, multiple balloons Surgical History open heart surgery 1987 Surgical History defibrillator placed 2013 Hospitalization History surgery Hospitalization History pneumonia 2014 Hospitalization History broken left hip at September Hospitalization History Bronchitis/clinical Pneumonia,hypoxia,sepsis - Via [facility] 06/21/17 Hospitalization History [facility]- Cardiomyopathy, Defibrillator discharge 01/04/2018 Hospitalization History CHF 02/09/2018
--- OUTSIDE RECORDS SUMMARY | 2018-06-08 14:43 | XMS REPORT ---
Author Author ABHINAV GONZALEZ [facility] Address [address] [place] [address] Care Team Providers Care Supervisor [place] Name Role Phone ABHINAV GONZALEZ Unavailable PROBLEMS Type Condition ICD9-CM Code SAP57-VO Code Onset Dates Condition Status SNOMED Code Problem Cardiac defibrillator in place Z95.810 Active 749488328 Problem Essential hypertension I10 Active 02906546 Problem Coronary artery disease involving [place] coronary artery of [place] heart without angina pectoris I25.10 Active 9861274056648 Problem Chronic congestive heart failure, unspecified congestive heart failure type I50.9 Active 13300703 Problem Type 2 diabetes mellitus without complications E11.9 Active 134408909 Problem roasterman current use of insulin Z79.4 Active 565978227 Problem Stasis dermatitis of both legs I87.2 Active 55829751 Problem Chronic obstructive pulmonary disease, unspecified COPD type J44.9 Active 02296825 Problem Other atherosclerosis of [place] arteries of extremities, 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 Active 87426116 Problem Ventricular arrhythmia I49.9 Active 28383875 ALLERGIES No Information ENCOUNTERS Encounter Location Date Diagnosis [facility] [address] [address]- 1048 Feb, [facility] [address] [address]- 1664 Feb, [facility] [address] [address]- 6387 Feb, [facility] [id number] [place] [address] 48005- 6887 Jan, [facility] [address] [address]- 2714 Jan, [facility] [id number] [place] [address] 95185- 6936 Jan, Acute cystitis with hematuria N30.01 and Dysuria R30.0 [facility] [id number] [place] [address] 00186- 6617 Jan, [facility] [id number] [place] [address] 28393- 4564 Jan, [facility] [id number] [place] [address] 35717- 6495 Jan, [facility] [id number] [place] [address] 33594- 0854 Jan, Type 2 diabetes mellitus without complications E11.9 ; roasterman current use of insulin Z79.4 ; History of respiratory failure Z87.09 and History of sepsis Z86.19 [facility] [id number] [place] [address] 34244- 6064 Jan, [facility] [id number] [place] [address] 08088- 3843 Jan, [facility] [id number] [place] [address] 04316- 3176 Jan, [facility] [id number] [place] [address] 69781- 2678 Jan, [facility] [address] [address]- 0515 Jan, [facility] [id number] [place] [address] 95922- 9585 Dec, [facility] [address] [address]661 November, Acute cystitis without hematuria N30.[address] [facility] [address] [place] [address] 81573 -6260 November, Acute cystitis without hematuria N30.00 [facility] [address] [address]- 6981 November, [facility] [address] [address]- 2049 Oct, Medicare annual wellness visit, initial Z00.00 ; Encounter for immunization Z23 ; Chronic obstructive pulmonary disease, unspecified COPD type J44.9 ; Coronary artery disease involving [place] coronary artery of [place] heart without angina pectoris I25.10 ; Chronic congestive heart failure, unspecified congestive heart failure type I50.9 ; Essential hypertension I10 ; Ventricular arrhythmia I49.9 and Other atherosclerosis of [place] arteries of extremities, 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 [facility] [id number] [address]- 2560 Sep, Chronic congestive heart failure, unspecified congestive heart failure type I50.9 [facility] [id number] [place] [address] 49501- 8391 Aug, [facility] [id number] [place] [address] 16838- 4405 13 Aug, 2017 Chronic congestive heart failure, unspecified congestive heart failure type I50.9 ; Chronic obstructive pulmonary disease, unspecified COPD type J44.9 and Bilateral impacted cerumen H61.23 [facility] [id number] [place] [address] 08862- 5853 Jul, [facility] [address] [place] [address] 83113- 6227 Jul, [facility] [address] [address]- 8077 Jun, [facility] [address] [place] [address] 40867- 7516 Jun, [facility] [id number] [place] [address] 12163- 5040 12 Jun, 2017 Coronary artery disease involving [place] coronary artery of [place] heart without angina pectoris I25.10 [facility] [address] [address]- 5484 Jun, [facility] [id number] [place] [address] 06174- 2010 May, Chronic obstructive pulmonary disease, unspecified COPD type J44.9 and History of pneumonia Z87.01 [facility] [id number] [place] [address] [id number] May, [facility] [address] [place] [address] 61738- 9859 May, [facility] [id number] [place] [address] 92719- 2518 May, [facility] [id number] [place] [address] 48302- 5847 May, [facility] [id number] [place] [address] 48204- 1586 Apr, [facility] [id number] [place] [address] 21085- 4770 Apr, Coronary artery disease involving [place] coronary artery of [place] heart without angina pectoris I25.10 and Ventricular arrhythmia I49.9 [facility] [address] [place] [address] 95329- 1924 Apr, [facility] [id number] [place] [address] 87432- 0642 Apr, [facility] [address] [place] [address] 95095 -4579 Apr, Dysuria R30.0 and Acute cystitis without hematuria N30.00 [facility] [address] [place] [address] 87323- 3854 Feb, Epistaxis R04.0 and Chronic obstructive pulmonary disease, unspecified COPD type J44.9 [facility] [id number] [place] [address] 02650- 2337 Jan, Fall from other pedestrian conveyance, initial encounter V00.891A [facility] [id number] [place] [address] 76809- 9036 Jan, Chronic congestive heart failure, unspecified congestive heart failure type I50.9 ; Chronic obstructive pulmonary disease, unspecified COPD type J44.9 and Stasis dermatitis of both legs I87.2 [facility] [address] [facility] [id number] [address]- 5498 November, Chronic congestive heart failure, unspecified congestive heart failure type I50.9 [facility] [address] [facility] [id number] [address] 8858 November, Coronary artery disease involving [place] coronary artery of [place] heart without angina pectoris I25.10 ; Chronic congestive heart failure, unspecified congestive heart failure type I50.9 and Chronic obstructive pulmonary disease, unspecified COPD type J44.9 [facility] [address] [address]- 4052 Oct, [facility] [address] [address]3 Oct, [facility] [id number] [place] [address] [id number] Oct, [facility] [id number] [id number] Sep, Via [facility] [address] [place] [id number] Sep, Essential hypertension I10 and Chronic congestive heart failure, unspecified congestive heart failure type I50.9 [facility] [id number] [address] Sep, [facility] [id number]- 1593 Sep, [facility] [id number]- 5342 Jun, [facility] [address] [address] 9463 Jun, [facility] [id number] 0141 May, [facility] [address] [address]- 0126 May, [facility] [address] [address]- 4088 May, [facility] [address] [address]- 5847 May, [facility] [address] [place] [address] 67034- 7139 May, Chronic congestive heart failure, unspecified congestive heart failure type I50.9 [facility] [address] [address] May, Pain of right lower extremity M79.604 ; History of atrial fibrillation without current medication Z86.79 and Acute deep vein thrombosis ( DVT) of femoral vein of right lower extremity I82.411 [facility] [id number] [place] [address] 33046- 4548 May, [facility] [address] [address]- 8748 Feb, [facility] [address] [place] [address] 10411- 9640 Feb, Coronary artery disease involving [place] coronary artery of [place] tribe heart without angina pectoris I25.10 ; Chronic congestive heart failure, unspecified congestive heart failure type I50.9 ; Cardiac defibrillator in place Z95.810 and Candidiasis B37.9 IMMUNIZATIONS No Known Immunizations SOCIAL HISTORY Never Assessed REASON FOR VISIT Requests return call PLAN OF CARE VITAL SIGNS MEDICATIONS Medication Instructions Dosage Frequency Start Date End Date Duration Status Levemir 100 UNIT/ML Subcutaneous Once a day 10 units 24h Jan, Active RESULTS No Results PROCEDURES No Known procedures INSTRUCTIONS MEDICATIONS ADMINISTERED No Known Medications MEDICAL (GENERAL) HISTORY Type Description Date Medical History hypertension Medical History skin cancer-arms, face Medical History [place] Medical History Pneumonia Surgical History heart cath-2 stents, multiple balloons Surgical History open heart surgery 1987 Surgical History defibrillator placed 2013 Hospitalization History surgery Hospitalization History pneumonia 2014 Hospitalization History broken left hip at September Hospitalization History Bronchitis/clinical Pneumonia,hypoxia,sepsis - Via [facility] 06/21/17 Hospitalization History [facility]- Cardiomyopathy, Defibrillator discharge 01/04/2018 Hospitalization History CHF 02/09/2018
--- OUTSIDE RECORDS SUMMARY | 2018-06-08 14:43 | XMS REPORT ---
Author Author ABHINAV GONZALEZ [facility] Address [address] [place] [address] Care Team Providers Care Server Service Assistant Name Role Phone ABHINAV GONZALEZ Unavailable PROBLEMS Type Condition ICD9-CM Code [id number] Code Onset Dates Condition Status SNOMED Code Problem Cardiac defibrillator in place Z95.810 Active 334813315 Problem Essential hypertension I10 Active 97179088 Problem Coronary artery disease involving alatna coronary artery of alatna heart without angina pectoris I25.10 Active 1326456751257 Problem Chronic congestive heart failure, unspecified congestive heart failure type I50.9 Active 92140086 Problem Type 2 diabetes mellitus without complications E11.9 Active 052586208 Problem 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.4 Active 870002383 Problem Stasis dermatitis of both legs I87.2 Active 90055197 Problem Chronic obstructive pulmonary disease, unspecified COPD type J44.9 Active 08438451 Problem Other atherosclerosis of alatna arteries of extremities, 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 Active 09080915 Problem Ventricular arrhythmia I49.9 Active 44911125 ALLERGIES No Information ENCOUNTERS Encounter Location Date Diagnosis [facility] [address] [address] Feb, [facility] [address] [address] 0661 Feb, [facility] [address], [place] [address] 58[address] Feb, [facility] [id number] [place] [address] 42069- 5217 Jan, [facility] [address], [place] [address] 94[address] Jan, [facility] [id number] [place] [address] 12807- 4434 Jan, Acute cystitis with hematuria N30.01 and Dysuria R30.0 [facility] [id number] [place] [address] 02067- 2467 Jan, [facility] [id number] [place] [address] 70224- 7359 Jan, [facility] [id number] [place] [address] 74360- 7310 Jan, [facility] [id number] [place] [address] 90420- 8632 Jan, Type 2 diabetes mellitus without complications E11.9 ; 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.4 ; History of respiratory failure Z87.09 and History of sepsis Z86.19 [facility] [id number] [place] [address] 18274- 4986 Jan, [facility] [id number] [place] [address] 11095- 7049 Jan, [facility] [id number] [place] [address] 06264- 2007 Jan, [facility] [id number] [place] [address] 25695- 7180 Jan, [facility] [address], [place] [address] 1088 Jan, [facility] [id number] [place] [address] 81050- 0611 Dec, [facility] [address], [place] [address] November, Acute cystitis without hematuria N30.00 [facility] [address] [place] [address] 78566 -0873 November, Acute cystitis without hematuria N30.00 [facility] [address] [address] 5402 November, [facility] [address], [place] [address] 5943 Oct, Medicare annual wellness visit, initial Z00.00 ; Encounter for immunization Z23 ; Chronic obstructive pulmonary disease, unspecified COPD type J44.9 ; Coronary artery disease involving alatna coronary artery of alatna heart without angina pectoris I25.10 ; Chronic congestive heart failure, unspecified congestive heart failure type I50.9 ; Essential hypertension I10 ; Ventricular arrhythmia I49.9 and Other atherosclerosis of alatna arteries of extremities, 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 [place] [id number] [address] 9603 Sep, Chronic congestive heart failure, unspecified congestive heart failure type I50.9 [place] [facility] [id number] [place] [address] 92684- 5701 Aug, [facility] [facility] [id number] [place] [address] 47794- 0706 13 Aug, 2017 Chronic congestive heart failure, unspecified congestive heart failure type I50.9 ; Chronic obstructive pulmonary disease, unspecified COPD type J44.9 and Bilateral impacted cerumen H61.23 [facility] [facility] [id number] [place] [address] 27142- 0788 Jul, [facility] [facility] [id number] [place] [address] 43958- 6006 Jul, [facility] [facility] [address], [place] [address]- 8796 Jun, [place] [id number] [place] [address] 06779- 8578 Jun, [facility] [facility] [id number] [place] [address] 62918- 8620 12 Jun, 2017 Coronary artery disease involving alatna coronary artery of alatna heart without angina pectoris I25.10 [facility] [facility] [address], [place] [address]- 2835 Jun, [facility] [facility] [id number] [place] [address] 25734- 3920 May, Chronic obstructive pulmonary disease, unspecified COPD type J44.9 and History of pneumonia Z87.01 [facility] [id number] [place] [address] [id number] May, [facility] [address] [place] [address] 10343- 4216 May, [facility] [id number] [place] [address] 97479- 5561 May, [facility] [id number] [place] [address] 43037- 7790 May, [facility] [id number] [place] [address] 90519- 2293 Apr, [facility] [id number] [place] [address] 20863- 0536 Apr, Coronary artery disease involving alatna coronary artery of alatna heart without angina pectoris I25.10 and Ventricular arrhythmia I49.9 [facility] [id number] [place] [address] 04412- 5070 Apr, [facility] [id number] [place] [address] 39904- 9954 Apr, [facility] [address] [place] [address] 93717 -1837 Apr, Dysuria R30.0 and Acute cystitis without hematuria N30.00 [facility] [address] [place] [address] 34050- 7017 Feb, Epistaxis R04.0 and Chronic obstructive pulmonary disease, unspecified COPD type J44.9 [facility] [id number] [place] [address] 53412- 7480 Jan, Fall from other pedestrian conveyance, initial encounter V00.891A [place] [id number] [place] [address] 74698- 3506 Jan, Chronic congestive heart failure, unspecified congestive heart failure type I50.9 ; Chronic obstructive pulmonary disease, unspecified COPD type J44.9 and Stasis dermatitis of both legs I87.2 [facility] [address] [facility] [id number] [address]698 November, Chronic congestive heart failure, unspecified congestive heart failure type I50.9 [facility] [address] [facility] [id number] [address]326 November, Coronary artery disease involving alatna coronary artery of alatna heart without angina pectoris I25.10 ; Chronic congestive heart failure, unspecified congestive heart failure type I50.9 and Chronic obstructive pulmonary disease, unspecified COPD type J44.9 [facility] [address] 4607 Oct, [facility] [address] [address] 6974 Oct, [facility] [id number] [place] [address] [id number] Oct, [facility] [id number] [id number] Sep, [facility] [employer] [facility] [address] [place] [id number] Sep, Essential hypertension I10 and Chronic congestive heart failure, unspecified congestive heart failure type I50.9 [facility] [id number] [address] Sep, [facility] [id number] [address] 3004 Sep, [facility] [id number] 1133 Jun, [facility] [address] [address] 0943 Jun, [facility] [id number] 9916 May, [facility] [address], [place] [address]- 8461 May, [facility] [address], [place] [address]- 6573 May, [facility] [address], [place] [address]- 4892 May, [facility] [address], [place] [address]- 6513 May, Chronic congestive heart failure, unspecified congestive heart failure type I50.9 [facility] [address], [place] [address] May, Pain of right lower extremity M79.604 ; History of atrial fibrillation without current medication Z86.79 and Acute deep vein thrombosis ( DVT) of femoral vein of right lower extremity I82.411 [facility] [id number] [place] [address] 50610- 2849 May, [facility] [address], [place] [address]- 1345 Feb, [facility] [address] [place] [address] 47828- 6546 Feb, Coronary artery disease involving alatna coronary artery of alatna heart without angina pectoris I25.10 ; Chronic congestive heart failure, unspecified congestive heart failure type I50.9 ; Cardiac defibrillator in place Z95.810 and Candidiasis B37.9 IMMUNIZATIONS No Known Immunizations SOCIAL HISTORY Never Assessed REASON FOR VISIT FYI PLAN OF CARE VITAL SIGNS MEDICATIONS Unknown Medications RESULTS No Results PROCEDURES No Known procedures INSTRUCTIONS MEDICATIONS ADMINISTERED No Known Medications MEDICAL (GENERAL) HISTORY Type Description Date Medical History hypertension Medical History skin cancer-arms, face Medical History IA Medical History Pneumonia Surgical History heart cath-2 stents, multiple balloons Surgical History open heart surgery 1987 Surgical History defibrillator placed 2013 Hospitalization History surgery Hospitalization History pneumonia 2014 Hospitalization History broken left hip at September Hospitalization History Bronchitis/clinical Pneumonia,hypoxia,sepsis - [facility] 06/21/17 Hospitalization History [facility]- Cardiomyopathy, Defibrillator discharge 01/04/2018 Hospitalization History CHF 02/09/2018
--- OUTSIDE RECORDS SUMMARY | 2018-06-08 14:43 | XMS REPORT ---
Author Author ABHINAV GONZALEZ [facility] Address [address] [place] [address] Care Team Providers Care Quebracho Tanner Name Role Phone ABHINAV GONZALEZ Unavailable PROBLEMS Type Condition ICD9-CM Code [id number] Code Onset Dates Condition Status SNOMED Code Problem Cardiac defibrillator in place Z95.810 Active 918332979 Problem Essential hypertension I10 Active 63098963 Problem Coronary artery disease involving oscar[place] coronary artery of oscar[place] heart without angina pectoris I25.10 Active 7789487218571 Problem Chronic congestive heart failure, unspecified congestive heart failure type I50.9 Active 71335374 Problem Type 2 diabetes mellitus without complications E11.9 Active 722447867 Problem 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 [address] [address] Feb, [facility] [address] [address]- 7411 Feb, [facility] [address] [address]- 7978 Feb, [facility] [id number] [place] [address] 61203- 5984 Jan, [facility] [address] [address]- 5915 Jan, [facility] [id number] [place] [address] 40005- 6461 Jan, Acute cystitis with hematuria N30.[address] [facility] [id number] [place] [address] 99845- 6255 Jan, [facility] [id number] [place] [address] 26268- [address]474 Jan, [facility] [id number] [place] [address] 00967- 0100 Jan, [facility] [id number] [place] [address] 50778- 2959 Jan, Type 2 diabetes mellitus without complications E11.9 ; termite control representative current use of insulin Z79.4 ; History of respiratory failure Z87.09 and History of sepsis Z86.19 [facility] [id number] [place] [address] 58550- 5778 Jan, [facility] [id number] [place] [address] 51981- 8888 Jan, [facility] [id number] [place] [address] 93047- [address]60 Jan, [facility] [id number] [place] [address] 36845- 7773 Jan, [facility] [address] [address]- 2357 Jan, [facility] [id number] [place] [address] 94340- 8842 Dec, [facility] [address] [address] -3797 November, Acute cystitis without hematuria N30.00 [facility] [id number] [place] [address] 65600 -6991 November, Acute cystitis without hematuria N30.00 [facility] [address] [address]- 1646 November, [facility] [address] [address]- 2165 Oct, Medicare annual wellness visit, initial Z00.00 ; Encounter for immunization Z23 ; Chronic obstructive pulmonary disease, unspecified COPD type J44.9 ; Coronary artery disease involving [place]scar[place] coronary artery of oscar[place] heart without angina pectoris I25.10 ; Chronic congestive heart failure, unspecified congestive heart failure type I50.9 ; Essential hypertension I10 ; Ventricular arrhythmia I49.9 and Other atherosclerosis of [place]scar[place] arteries of extremities, 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 [place] [address] [address]- 5849 Sep, Chronic congestive heart failure, unspecified congestive heart failure type I50.9 [place] [facility] [id number] [place] [address] 28008- 9427 Aug, [place] [facility] [id number] [place] [address] 93286- 5454 13 Aug, 2017 Chronic congestive heart failure, unspecified congestive heart failure type I50.9 ; Chronic obstructive pulmonary disease, unspecified COPD type J44.9 and Bilateral impacted cerumen H61.23 [place] [id number] [place] [address] 76159- 8139 Jul, [facility] [id number] [place] [address] 92285- 0625 Jul, [place] [facility] [address] [address]- 2643 Jun, [place] [facility] [id number] [place] [address] 56237- 8945 Jun, [place] [facility] [id number] [place] [address] 38764- 0016 12 Jun, 2017 Coronary artery disease involving oscar[place] coronary artery of oscar[place] heart without angina pectoris I25.10 [place] [facility] [address] [address]- 3061 Jun, [place] [facility] [id number] [place] [address] 78930- 3008 May, Chronic obstructive pulmonary disease, unspecified COPD type J44.9 and History of pneumonia Z87.01 [facility] [id number] [place] [address] [phone] May, [facility] [id number] [place] [address] 48336- 2293 May, [facility] [id number] [place] [address] 11178- 8868 May, [facility] [id number] [place] [address] 58458- 3585 May, [facility] [id number] [place] [address] 38476- 9626 Apr, [facility] [id number] [place] [address] 74832- 4540 Apr, Coronary artery disease involving oscarville coronary artery of oscar[place] heart without angina pectoris I25.10 [address] I49.9 [facility] [address] [place] [address] 86548- 9911 Apr, [facility] [id number] [place] [address] 37395- 9423 Apr, [facility] [id number] [place] [address] 64284 -0108 Apr, Dysuria R30.0 and Acute cystitis without hematuria N30.00 [facility] [address] [place] [address] 44274- 0677 Feb, Epistaxis R04.0 and Chronic obstructive pulmonary disease, unspecified COPD type J44.9 [facility] [id number] [place] [address] 28176- 8661 Jan, Fall from other pedestrian conveyance, initial encounter V00.891A [place] [id number] [place] [address] 53402- 4066 Jan, Chronic congestive heart failure, unspecified congestive heart failure type I50.9 ; Chronic obstructive pulmonary disease, unspecified COPD type J44.9 and Stasis dermatitis of both legs I87.2 [facility] [address] [facility] [id number]- 6575 November, Chronic congestive heart failure, unspecified congestive heart failure type I50.9 [facility] [address] [facility] [id number]27[place]- 4675 November, Coronary artery disease involving [place]scar[place] coronary artery of [place]scar[place] heart without angina pectoris I25.10 ; Chronic congestive heart failure, unspecified congestive heart failure type I50.9 and Chronic obstructive pulmonary disease, unspecified COPD type J44.9 [facility] [address] [address] 1262 Oct, [facility] [address] [address]- 5375 Oct, [facility] [id number] [place] [address] [id number] Oct, [facility] [address] [id number] Sep, [facility] [employer] [facility] [address] [place] [id number] Sep, Essential hypertension I10 and Chronic congestive heart failure, unspecified congestive heart failure type I50.9 [facility] [id number] [id number] Sep, [facility] [id number]- 3276 Sep, [facility] [id number]- [address] Jun, [facility] [address] [address]- 7[address] Jun, [facility] [id number]- 8427 May, [facility] [address] [address]- 455[address] May, [facility] [address] [address]- 250[address] May, [facility] [address] [address]- 5032 May, [facility] [id number] [place] [address] 78369- 6465 May, Chronic congestive heart failure, unspecified congestive heart failure type I50.9 [facility] [address] [address]89 May, Pain of right lower extremity M79.604 ; History of atrial fibrillation without current medication Z86.79 and Acute deep vein thrombosis ( DVT) of femoral vein of right lower extremity I82.411 [facility] [id number] [place] [address] 07540- 6638 May, [facility] [address] [address]- 2418 Feb, [facility] [id number] [place] [address] 75481- 3820 Feb, Coronary artery disease involving oscarville coronary artery of [place]scar[place] heart without angina pectoris I25.10 ; Chronic congestive heart failure, unspecified congestive heart failure type I50.9 ; Cardiac defibrillator in place Z95.810 and Candidiasis B37.9 IMMUNIZATIONS No Known Immunizations SOCIAL HISTORY Never Assessed REASON FOR VISIT Hospital Discharge Follow up Phone Call PLAN OF CARE VITAL SIGNS MEDICATIONS Medication Instructions Dosage Frequency Start Date End Date Duration Status Amiodarone HCl 200 mg Orally Once a day 2 capsules 24h Active Furosemide 40 mg Orally twice a day 1 tablet 12h Unknown Amlodipine Besylate 5 MG Orally Once a day 1 tablet 24h Unknown Oxygen Unknown Nexium 40 MG Orally Once a day 1 capsule 24h Unknown Nebulizer - as directed May, Unknown Albuterol Sulfate 1.25 MG/3ML Inhalation 2 times a day as directed 12h May, Unknown Klor-Con 8 MEQ Orally Once a day 2 capsules 24h Active Digoxin 125 MCG Orally Once a day 1 tablet 24h Unknown Mexiletine HCl 150 MG Orally every 8 hrs 1 capsule 8h Unknown Flovent HFA Unknown Bactrim DS 800-160 MG Orally Twice a day 1 tablet 12h 5 days Unknown Metoprolol Tartrate 50 mg Orally Twice a day 1/2 tablet with food 12h Unknown Wheelchair - to use for Mobility 24h 13 Aug, 2017 Unknown RESULTS No Results PROCEDURES No Known procedures [...] History Bronchitis/clinical Pneumonia,hypoxia,sepsis - [facility] [place] 06/21/17 Hospitalization History [facility]- Cardiomyopathy, Defibrillator discharge 01/04/2018 Hospitalization History CHF 02/09/2018
--- OUTSIDE RECORDS SUMMARY | 2018-06-08 14:43 | XMS REPORT ---
Author Author ABHINAV GONZALEZ [facility] Address [address] [place] [address] Care Team Providers Care Line Runner Name Role Phone ABHINAV GONZALEZ Unavailable PROBLEMS Type Condition ICD9-CM Code KBO67-QT Code Onset Dates Condition Status SNOMED Code Problem Cardiac defibrillator in place Z95.810 Active 321490490 Problem Essential hypertension I10 Active 35750984 Problem Coronary artery disease involving [place] coronary artery of [place] heart without angina pectoris I25.10 Active 6561598629515 Problem Chronic congestive heart failure, unspecified congestive heart failure type I50.9 Active 32166015 Problem Type 2 diabetes mellitus without complications E11.9 Active 559284727 Problem intermediate manager current use of insulin Z79.4 Active 912503299 Problem Stasis dermatitis of both legs I87.2 Active 38270192 Problem Chronic obstructive pulmonary disease, unspecified COPD type J44.9 Active 60441553 Problem Other atherosclerosis of [place] arteries of extremities, 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 Active 36968776 Problem Ventricular arrhythmia I49.9 Active 62784895 ALLERGIES No Information ENCOUNTERS Encounter Location Date Diagnosis [facility] [address] [address] Feb, [facility] [address] [address] 29[address] Feb, [facility] [address] [address] Feb, [facility] [id number] [place] [address] 47785- 5302 Jan, [facility] [address] [address] 4121 Jan, [facility] [id number] [place] [address] 10543- 7447 Jan, Acute cystitis with hematuria N30.01 and Dysuria R30.0 [facility] [id number] [place] [address] 12495- 8831 Jan, [facility] [id number] [place] [address] 05992- 8919 Jan, [facility] [id number] [place] [address] 43860- 1968 Jan, [facility] [id number] [place] [address] 04746- 5260 Jan, Type 2 diabetes mellitus without complications E11.9 ; intermediate manager current use of insulin Z79.4 ; History of respiratory failure Z87.09 and History of sepsis Z86.19 [facility] [id number] [place] [address] 22123- 3994 Jan, [facility] [id number] [place] [address] 98271- 4610 Jan, [facility] [id number] [place] [address] 50260- 4683 Jan, [facility] [id number] [place] [address] 30189- 6672 Jan, [facility] [address] [address]- 6651 Jan, [facility] [id number] [place] [address] 75370- 9014 Dec, [facility] [address] [address] November, Acute cystitis without hematuria N30.00 [facility] [address] [place] [address] 35664 -5567 November, Acute cystitis without hematuria N30.00 [facility] [address] [address]- 4541 November, [facility] [address] [address]- 8824 Oct, Medicare annual wellness visit, initial Z00.00 ; Encounter for immunization Z23 ; Chronic obstructive pulmonary disease, unspecified COPD type J44.9 ; Coronary artery disease involving [place] coronary artery of [place] heart without angina pectoris I25.10 ; Chronic congestive heart failure, unspecified congestive heart failure type I50.9 ; Essential hypertension I10 ; Ventricular arrhythmia I49.9 and Other atherosclerosis of [place] arteries of extremities, 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 [facility] [address] [address]- 1406 Sep, Chronic congestive heart failure, unspecified congestive heart failure type I50.9 [facility] [id number] [place] [address] 07051- 1638 Aug, [facility] [id number] [place] [address] 40933- 5273 13 Aug, 2017 Chronic congestive heart failure, unspecified congestive heart failure type I50.9 ; Chronic obstructive pulmonary disease, unspecified COPD type J44.9 and Bilateral impacted cerumen H61.23 [facility] [id number] [place] [address] 65335- 6192 Jul, [facility] [address] [place] [address] 33859- 4339 Jul, [facility] [address] [address]- 4063 Jun, [facility] [address] [place] [address] 02360- 9050 Jun, [facility] [id number] [place] [address] 73813- 4849 12 Jun, 2017 Coronary artery disease involving [place] coronary artery of [place] heart without angina pectoris I25.10 [facility] [address] [address]- 1157 Jun, [facility] [id number] [place] [address] 68663- 6741 May, Chronic obstructive pulmonary disease, unspecified COPD type J44.9 and History of pneumonia Z87.01 [facility] [id number] [place] [address] [id number] May, [facility] [address] [place] [address] 75459- 0902 May, [facility] [id number] [place] [address] 30993- 9018 May, [facility] [id number] [place] [address] 68703- 8956 May, [facility] [id number] [place] [address] 99073- 2947 Apr, [facility] [id number] [place] [address] 98774- 7207 Apr, Coronary artery disease involving [place] coronary artery of [place] heart without angina pectoris I25.10 and Ventricular arrhythmia I49.9 [facility] [address] [place] [address] 48598- 5271 Apr, [facility] [id number] [place] [address] 74531- 9532 Apr, [facility] [address] [place] [address] 00851 -7494 Apr, Dysuria R30.0 and Acute cystitis without hematuria N30.00 [facility] [address] [place] [address] 58534- 5296 Feb, Epistaxis R04.0 and Chronic obstructive pulmonary disease, unspecified COPD type J44.9 [facility] [id number] [place] [address] 04169- 9102 Jan, Fall from other pedestrian conveyance, initial encounter V00.891A [facility] [id number] [place] [address] 04361- 1510 Jan, Chronic congestive heart failure, unspecified congestive heart failure type I50.9 ; Chronic obstructive pulmonary disease, unspecified COPD type J44.9 and Stasis dermatitis of both legs I87.2 [facility] [address] [facility] [id number] [address] [address] November, Chronic congestive heart failure, unspecified congestive heart failure type I50.9 [facility] [address] [facility] [id number] [address] 7479 November, Coronary artery disease involving [place] coronary artery of [place] heart without angina pectoris I25.10 ; Chronic congestive heart failure, unspecified congestive heart failure type I50.9 and Chronic obstructive pulmonary disease, unspecified COPD type J44.9 [facility] [address] [address]40 Oct, [facility] [address] [address] 4692 Oct, [facility] [id number] [place] [address] [id number] Oct, [facility] [id number] [id number] Sep, Via [facility] [address] [place] [id number] Sep, Essential hypertension I10 and Chronic congestive heart failure, unspecified congestive heart failure type I50.9 [facility] [id number] [id number] Sep, [facility] [id number] [address]- 9564 Sep, [facility] [id number] 1541 Jun, [facility] [address] [address] 2154 Jun, [facility] [id number] 6380 May, [facility] [address] [address]- 5639 May, [facility] [address] [address]- 3065 May, [facility] [address] [address]- 5117 May, [facility] [address] [place] [address] 75708- 2470 May, Chronic congestive heart failure, unspecified congestive heart failure type I50.9 [facility] [address] [address] May, Pain of right lower extremity M79.604 ; History of atrial fibrillation without current medication Z86.79 and Acute deep vein thrombosis ( DVT) of femoral vein of right lower extremity I82.411 [facility] [id number] [place] [address] 44395- 1359 May, [facility] [address] [address]- 0302 Feb, [facility] [address] [place] [address] 10309- 4981 Feb, Coronary artery disease involving [place] coronary artery of [place] heart without angina pectoris I25.10 ; Chronic congestive heart failure, unspecified congestive heart failure type I50.9 ; Cardiac defibrillator in place Z95.810 and Candidiasis B37.9 IMMUNIZATIONS No Known Immunizations SOCIAL HISTORY Never Assessed REASON FOR VISIT medication refills PLAN OF CARE VITAL SIGNS MEDICATIONS Medication Instructions Dosage Frequency Start Date End Date Duration Status Furosemide 40 mg Orally twice a day 1 tablet 12h Active RESULTS No Results PROCEDURES No Known procedures INSTRUCTIONS MEDICATIONS ADMINISTERED No Known Medications MEDICAL (GENERAL) HISTORY Type Description Date Medical History hypertension Medical History skin cancer-arms, face Medical History SD Medical History Pneumonia Surgical History heart cath-2 stents, multiple balloons Surgical History open heart surgery 1987 Surgical History defibrillator placed 2013 Hospitalization History surgery Hospitalization History pneumonia 2014 Hospitalization History broken left hip at September Hospitalization History Bronchitis/clinical Pneumonia,hypoxia,sepsis - Via [facility] 06/21/17 Hospitalization History [facility]- Cardiomyopathy, Defibrillator discharge 01/04/2018 Hospitalization History CHF 02/09/2018
--- OUTSIDE RECORDS SUMMARY | 2018-06-08 14:43 | XMS REPORT ---
Author Author NAE BERMEO Organization [facility] Address [address] [place] [address] Care Team Providers Care Wood Treating Inspector Name Role Phone NAE BERMEO Unavailable PROBLEMS Type Condition ICD9-CM Code EJD32-ZR Code Onset Dates Condition Status SNOMED Code Problem Cardiac defibrillator in place Z95.810 Active 175706029 Problem Essential hypertension I10 Active 04075273 Problem Coronary artery disease involving [place] coronary artery of red [place] heart without angina pectoris I25.10 Active 1071116988000 Problem Chronic congestive heart failure, unspecified congestive heart failure type I50.9 Active 92867237 Problem Type 2 diabetes mellitus without complications E11.9 Active 830283784 Problem terminal gauger current use of insulin Z79.4 Active 337866683 Problem Stasis dermatitis of both legs I87.2 Active 39589682 Problem Chronic obstructive pulmonary disease, unspecified COPD type J44.9 Active 80236715 Problem Other atherosclerosis of [place] arteries of extremities, 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 Active 14292111 Problem Ventricular arrhythmia I49.9 Active 05998611 ALLERGIES No Information ENCOUNTERS Encounter Location Date Diagnosis [facility] [address], [place] [address]- 5769 Feb, [facility] [address], [place] [address]- 8843 Feb, [facility] [address], [place] [address]- 3326 Feb, [facility] [id number] [place] [address] 67589- 0530 Jan, [facility] [address], [place] [address]- 4566 Jan, [facility] [id number] [place] [address] 60712- 6445 Jan, Acute cystitis with hematuria N30.01 and Dysuria R30.0 [facility] [id number] [place] [address] 02966- 8211 Jan, [facility] [id number] [place] [address] 38413- 9538 Jan, [facility] [id number] [place] [address] 18244- 8773 Jan, [facility] [id number] [place] [address] 97129- 8335 Jan, Type 2 diabetes mellitus without complications E11.9 ; terminal gauger current use of insulin Z79.4 ; History of respiratory failure Z87.09 and History of sepsis Z86.19 [facility] [id number] [place] [address] 26810- 9819 Jan, [facility] [id number] [place] [address] 97564- 1796 Jan, [facility] [id number] [place] [address] 64297- 5482 Jan, [facility] [id number] [place] [address] 60293- 5679 Jan, [facility] [address], [place] [address]- 1453 Jan, [facility] [id number] [place] [address] 32618- 2106 Dec, [facility] [address], [place] [address] November, Acute cystitis without hematuria N30.00 [facility] [id number] [place] [address] 05897 -3947 November, Acute cystitis without hematuria N30.00 [facility] [address], [place] [address]- 4138 November, [facility] [address], [place] [address]- 3324 Oct, Medicare annual wellness visit, initial Z00.00 ; Encounter for immunization Z23 ; Chronic obstructive pulmonary disease, unspecified COPD type J44.9 ; Coronary artery disease involving red [place] coronary artery of red devil heart without angina pectoris I25.10 ; Chronic congestive heart failure, unspecified congestive heart failure type I50.9 ; Essential hypertension I10 ; Ventricular arrhythmia I49.9 and Other atherosclerosis of red [place] arteries of extremities, 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 [facility] [address] [address]- 1619 Sep, Chronic congestive heart failure, unspecified congestive heart failure type I50.9 [facility] [id number] [place] [address] 80059- 0113 Aug, [facility] [id number] [place] [address] 59656- 6494 13 Aug, 2017 Chronic congestive heart failure, unspecified congestive heart failure type I50.9 ; Chronic obstructive pulmonary disease, unspecified COPD type J44.9 and Bilateral impacted cerumen H61.23 [facility] [id number] [place] [address] 88239- 8564 Jul, [facility] [id number] [place] [address] 90282- 1905 Jul, [facility] [address], [place] [address]- 0364 Jun, [facility] [id number] [place] [address] 08067- 3048 Jun, [facility] [id number] [place] [address] 01835- 4025 12 Jun, 2017 Coronary artery disease involving red devil coronary artery of red devil heart without angina pectoris I25.10 [facility] [address], [place] [address]- 5310 Jun, [facility] [id number] [place] [address] 14388- 6752 May, Chronic obstructive pulmonary disease, unspecified COPD type J44.9 and History of pneumonia Z87.01 [facility] [id number] [place] [address] [id number] May, [facility] [id number] [place] [address] 49399- 8171 May, [facility] [id number] [place] [address] 79048- 1266 May, [facility] [id number] [place] [address] 60787- 4110 May, [facility] [id number] [place] [address] 11359- 0740 Apr, [facility] [id number] [place] [address] 36818- 6653 Apr, Coronary artery disease involving red devil coronary artery of red devil heart without angina pectoris I25.10 and Ventricular arrhythmia I49.9 [facility] [id number] [place] [address] 18016- 5772 Apr, [facility] [id number] [place] [address] 76801- 6809 Apr, [facility] [id number] [place] [address] 36736 -7050 Apr, Dysuria R30.0 and Acute cystitis without hematuria N30.00 [facility] [address] [place] [address] 25132- 9938 Feb, Epistaxis R04.0 and Chronic obstructive pulmonary disease, unspecified COPD type J44.9 [facility] [id number] [place] [address] 37537- 5341 Jan, Fall from other pedestrian conveyance, initial encounter V00.891A [place] [facility] [id number] [place] [address] 02769- 9478 Jan, Chronic congestive heart failure, unspecified congestive heart failure type I50.9 ; Chronic obstructive pulmonary disease, unspecified COPD type J44.9 and Stasis dermatitis of both legs I87.2 [facility] [address] [facility] [id number] [address]- 8731 November, Chronic congestive heart failure, unspecified congestive heart failure type I50.9 [facility] [address] [facility] [id number] [address] 8726 November, Coronary artery disease involving red devil coronary artery of red devil heart without angina pectoris I25.10 ; Chronic congestive heart failure, unspecified congestive heart failure type I50.9 and Chronic obstructive pulmonary disease, unspecified COPD type J44.9 [facility] [address] [address] 8132 Oct, [facility] [address] [address]- 5017 Oct, [facility] [id number] [place] [address] [id number] Oct, [facility] [address] [id number] Sep, Via [email or web address] [facility] [address] [place] [id number] Sep, Essential hypertension I10 and Chronic congestive heart failure, unspecified congestive heart failure type I50.9 [facility] [id number] [id number] Sep, [facility] [id number]- 3736 Sep, [facility] [id number] 4415 Jun, [facility] [address] [address]- 8432 Jun, [facility] [id number]- 6086 May, [facility] [address], [place] [address]- 9066 May, [facility] [address], [place] [address]- 1053 May, [facility] [address], [place] [address]- 3363 May, [facility] [id number] [place] [address] 68045- 3972 May, Chronic congestive heart failure, unspecified congestive heart failure type I50.9 [facility] [id number] [place] [address] 98451 -9083 May, Pain of right lower extremity M79.604 ; History of atrial fibrillation without current medication Z86.79 and Acute deep vein thrombosis ( DVT) of femoral vein of right lower extremity I82.411 [facility] [id number] [place] [address] 52261- 1848 May, [facility] [id number] [place] [address] 86299- 8775 Feb, [facility] [id number] [place] [address] 87775- 5080 Feb, Coronary artery disease involving red devil coronary artery of red devil heart without angina pectoris I25.10 ; Chronic congestive heart failure, unspecified congestive heart failure type I50.9 ; Cardiac defibrillator in place Z95.810 and Candidiasis B37.9 IMMUNIZATIONS No Known Immunizations SOCIAL HISTORY Never Assessed REASON FOR VISIT TCM Phone Call/Med [facility] PLAN OF CARE VITAL SIGNS MEDICATIONS Medication Instructions Dosage Frequency Start Date End Date Duration Status Klor-Con 8 MEQ Orally Once a day 2 capsules 24h Active Mexiletine HCl 150 MG Orally every 8 hrs 1 capsule 8h Active Ventolin HFA 108 (90 Base) MCG/ACT Inhalation every 6 hrs 2 puffs as needed 6h Active Nexium 40 MG Orally Once a day 1 capsule 24h Not-Taking Levemir 100 UNIT/ML Subcutaneous Once a day 10 units 24h Jan, Active Metoprolol Tartrate 50 mg Orally Twice a day 1/2 tablet with food 12h Active Wheelchair - to use for Mobility 24h 13 Aug, 2017 Active Furosemide 40 mg Orally twice a day 1 tablet 12h Active Albuterol Sulfate 1.25 MG/3ML Inhalation 2 times a day as directed 12h May, Active Digoxin 125 MCG Orally Once a day 1 tablet 24h Active Oxygen Active Amiodarone HCl 200 mg Orally three times a week on Sun, Wed, Sat. in addition to daily dose 2 tablets at 1999 Active Amiodarone HCl 200 mg Orally Once a day 1 tablet 24h Active Nebulizer - as directed May, Active Amlodipine Besylate 5 MG Orally Once a day 1 tablet 24h Active RESULTS No Results PROCEDURES No [...] Bronchitis/clinical Pneumonia,hypoxia,sepsis - Via [facility] 06/21/17 Hospitalization History [facility] [place], operated by [facility]- Cardiomyopathy, Defibrillator discharge 01/04/2018 Hospitalization History CHF 02/09/2018
--- OUTSIDE RECORDS SUMMARY | 2018-06-08 14:44 | XMS REPORT ---
Author Author MALCOM LOPEZ [facility] Address [address] [place] [address] Care Team Providers Care Director Apparel Name Role Phone MALCOM LOPEZ Unavailable PROBLEMS Type Condition ICD9-CM Code HBT80-DR Code Onset Dates Condition Status SNOMED Code Problem Cardiac defibrillator in place Z95.810 Active 181685261 Problem Essential hypertension I10 Active 45196607 Problem Coronary artery disease involving [place] coronary artery of [place] heart without angina pectoris I25.10 Active 9761945918448 Problem Chronic congestive heart failure, unspecified congestive heart failure type I50.9 Active 68814547 Problem Type 2 diabetes mellitus without complications E11.9 Active 443179103 Problem shelter current use of insulin Z79.4 Active 834089773 Problem Stasis dermatitis of both legs I87.2 Active 96823681 Problem Chronic obstructive pulmonary disease, unspecified COPD type J44.9 Active 78687356 Problem Other atherosclerosis of [place] arteries of extremities, 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 Active 79619687 Problem Ventricular arrhythmia I49.9 Active 18424169 ALLERGIES Substance Reaction Event Type Date Status Penicillin V Potassium rash Drug Allergy November, Active Codeine Phosphate Unknown Drug Allergy November, Active ENCOUNTERS Encounter Location Date Diagnosis [facility] [id number] [place] [address] Jan, [facility] [address] [address] Jan, [facility] [id number] [place] [address] 8547 Jan, Acute cystitis with hematuria N30.01 and Dysuria R30.0 [facility] [id number] [place] [address]779- 6902 Jan, [facility] [address] [address] Jan, [facility] [address] [address] Jan, [facility] [address] [address] Jan, Type 2 diabetes mellitus without complications E11.9 ; shelter current use of insulin Z79.4 ; History of respiratory failure Z87.09 and History of sepsis Z86.19 [facility] [address] [address] Jan, [facility] [address] [place] [address] Jan, [facility] [address] [place] [address] Jan, [facility] [address] [place] [address] Jan, [facility] [address] [address] Jan, [facility] [address], [place] [address] Dec, [facility] [id number] [address] November, Acute cystitis without hematuria N30.00 [facility] [id number] [address] November, Acute cystitis without hematuria N30.00 [facility] [id number] [address] November, [facility] [id number] [address] Oct, Medicare annual wellness visit, initial Z00.00 ; Encounter for immunization Z23 ; Chronic obstructive pulmonary disease, unspecified COPD type J44.9 ; Coronary artery disease involving [place] coronary artery of [place] heart without angina pectoris I25.10 ; Chronic congestive heart failure, unspecified congestive heart failure type I50.9 ; Essential hypertension I10 ; Ventricular arrhythmia I49.9 and Other atherosclerosis of [place] arteries of extremities, 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 [place] [address] [address] Sep, Chronic congestive heart failure, unspecified congestive heart failure type I50.9 [place] [id number] [place] [address]- 46[address] Aug, [place] [id number] [place] [address] 81242- 7787 13 Aug, 2017 Chronic congestive heart failure, unspecified congestive heart failure type I50.9 ; Chronic obstructive pulmonary disease, unspecified COPD type J44.9 and Bilateral impacted cerumen H61.23 [place] [id number] [place] [address]86- 1413 Jul, [place] [id number] [place] [address] 00671- 0220 Jul, [place] [id number] [place] [address] 24077- 6941 Jun, [place] [address] [place] [address] 06998- 4268 Jun, [place] [id number] [place] [address] 46889- 6955 Jun, Coronary artery disease involving [place] coronary artery of [place] heart without angina pectoris I25.10 [place] [id number] [place] [address]- 5126 Jun, [place] [id number] [place] [address] 9[address]32- 9039 30 May, 2017 Chronic obstructive pulmonary disease, unspecified COPD type J44.9 and History of pneumonia Z87.01 [facility] [id number] [place] [id number] May, [facility] [address] [place] [address] 24935- 9605 May, [facility] [id number] [place] [address] 73033- 2150 May, [facility] [id number] [place] [address] 30[address]- 2132 May, [facility] [id number] [place] [address] 32174- 2671 Apr, [facility] [id number] [place] [address] 19744- 1712 Apr, Coronary artery disease involving [place] coronary artery of [place] heart without angina pectoris I25.10 and Ventricular arrhythmia I49.9 [place] [id number] [place] [address] 28645- 9062 Apr, [facility] [id number] [place] [address] 40943- 7672 Apr, [facility] [id number] [place] [address] -[address]85 Apr, Dysuria R30.0 and Acute cystitis without hematuria N30.00 [facility] [id number] [place] [address] 75418- 2576 Feb, Epistaxis R04.0 and Chronic obstructive pulmonary disease, unspecified COPD type J44.9 [place] [id number] [place] [address] 18627- 9176 Jan, Fall from other pedestrian conveyance, initial encounter V00.891A [place] [id number] [place] [address] 08653- 3495 Jan, Chronic congestive heart failure, unspecified congestive heart failure type I50.9 ; Chronic obstructive pulmonary disease, unspecified COPD type J44.9 and Stasis dermatitis of both legs I87.2 [facility] [id number] [place] [address] 70325- 7066 November, Chronic congestive heart failure, unspecified congestive heart failure type I50.9 [facility] [address] [facility] [id number] [address] November, Coronary artery disease involving [place] coronary artery of [place] heart without angina pectoris I25.10 ; Chronic congestive heart failure, unspecified congestive heart failure type I50.9 and Chronic obstructive pulmonary disease, unspecified COPD type J44.9 [facility] [address] [facility] [id number] [address] Oct, [facility] [address] [facility] [id number] [address] Oct, [facility] [id number] [id number] Oct, [facility] [id number] [id number] Sep, [facility] [address] [facility] [address] [address] [place] [id number] Sep, Essential hypertension I10 and Chronic congestive heart failure, unspecified congestive heart failure type I50.9 [facility] [id number] [address] Sep, [facility] [id number] [address]- 1446 Sep, [facility] [id number] [address]- 2718 Jun, [facility] [address] [facility] [id number], [place] [address] 20[address] Jun, [facility] [address] [facility] [id number], [place] [address]- 3[address] May, [facility] [address] [facility] [id number], [place] [address]- 1103 May, [facility] [id number], [place] [address]- 9334 May, [facility] [address], [place] [address]- 0887 May, [facility] [id number] [place] [address] 78561- 7629 May, Chronic congestive heart failure, unspecified congestive heart failure type I50.9 [facility] [address], [place] [address] May, Pain of right lower extremity M79.604 ; History of atrial fibrillation without current medication Z86.79 and Acute deep vein thrombosis ( DVT) of femoral vein of right lower extremity I82.411 [facility] [id number] [place] [address] 41270- 0584 May, [facility] [id number] [place] [address] 87068- 2106 Feb, [place] [id number] [place] [address] 30453- 6606 Feb, Coronary artery disease involving [place] coronary artery of [place] heart without angina pectoris I25.10 ; Chronic congestive heart failure, unspecified congestive heart failure type I50.9 ; Cardiac defibrillator in place Z95.810 and Candidiasis B37.9 IMMUNIZATIONS No Known Immunizations SOCIAL HISTORY Never Assessed REASON FOR VISIT UTI symptoms, burning on urination---VANDANA johnson PLAN OF CARE Activity Details Follow Up prn Reason: VITAL SIGNS Height 65 in 2017-12-15 Weight 203.2 lbs 2017-12-15 Temperature 98.5 degrees Fahrenheit 2017-12-15 Heart Rate 77 bpm 2017-12-15 Respiratory Rate 20 2017-12-15 BMI 33.81 kg/m2 2017-12-15 Blood pressure systolic 164 mmHg 2017-12-15 Blood pressure diastolic 76 mmHg 2017-12-15 MEDICATIONS Medication Instructions Dosage Frequency Start Date End Date Duration Status Flovent HFA Active Amlodipine Besylate 5 MG Orally Once a day 1 tablet 24h Active Albuterol Sulfate 1.25 MG/3ML Inhalation 2 times a day as directed 12h 30 May, 2017 Active Wheelchair - to use for Mobility 24h 13 Aug, 2017 Active Nexium 40 MG Orally Once a day 1 capsule 24h Active Furosemide 40 mg Orally twice a day 1 tablet 12h Active Amiodarone HCl 200 mg Orally twice weekly on sunday and sunday 1 tablet Active Nebulizer - as directed May, Active Bactrim DS 800-160 MG Orally Twice a day 1 tablet 12h 5 days Active Oxygen Active Klor-Con 8 MEQ Orally Once a day 1 tablet 24h Active Metoprolol Tartrate 50 mg Orally Twice a day 1/2 tablet with food 12h Active Digoxin 125 MCG Orally Once a day 1 tablet 24h Active Mexiletine HCl 150 MG Orally every 8 hrs 1 capsule 8h Active RESULTS No Results PROCEDURES Procedure Date Ordered Result Body Site [facility] VISIT ESTABLISHED PATIENT December 15, 2017 URINALYSIS, AUTO, W/O SCOPE December 15, 2017 INSTRUCTIONS MEDICATIONS ADMINISTERED No Known Medications MEDICAL (GENERAL) HISTORY Type Description Date Medical History hypertension Medical History skin cancer-arms, face Medical History HI Medical History Pneumonia Surgical History heart cath-2 stents, multiple balloons Surgical History open heart surgery 1987 Surgical History defibrillator placed 2013 Hospitalization History surgery Hospitalization History pneumonia 2014 Hospitalization History broken left hip at September Hospitalization History Bronchitis/clinical Pneumonia,hypoxia,sepsis - [facility] 06/21/17 Hospitalization History [facility]- Cardiomyopathy, Defibrillator discharge 01/04/2018 Hospitalization History [facility] 02/09/2018
--- OUTSIDE RECORDS SUMMARY | 2018-06-08 14:44 | XMS REPORT ---
Author Author ABHINAV GONZALEZ [facility] Address [address] [place] [address] Care Team Providers Care Sr Vice President Name Role Phone ABHINAV GONZALEZ Unavailable PROBLEMS Type Condition ICD9-CM Code NCV97-FX Code Onset Dates Condition Status SNOMED Code Problem Cardiac defibrillator in place Z95.810 Active 729642399 Problem Essential hypertension I10 Active 32570939 Problem Coronary artery disease 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 [place] heart without angina pectoris I25.10 Active [id number] Problem Chronic congestive heart failure, unspecified congestive heart failure type I50.9 Active 11133200 Problem Type 2 diabetes mellitus without complications E11.9 Active 195450253 Problem 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.4 Active 326226138 Problem Stasis dermatitis of both legs I87.2 Active 06545399 Problem Chronic obstructive pulmonary disease, unspecified COPD type J44.9 Active 12253392 Problem Other atherosclerosis of [place] arteries of extremities, 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 Active 20189590 Problem Ventricular arrhythmia I49.9 Active 82201754 ALLERGIES Substance Reaction Event Type Date Status Penicillin V Potassium rash Drug Allergy Oct, Active Codeine Phosphate Unknown Drug Allergy Oct, Active ENCOUNTERS Encounter Location Date Diagnosis [facility] [id number] [address] Jan, Acute cystitis with hematuria N30.01 and Dysuria R30.0 [facility] [id number], [place] [address] Jan, [facility] [id number] [place] [address] 39149- 5331 Jan, [facility] [address], [place] [address] Jan, [facility] [address], [place] [address] Jan, Type 2 diabetes mellitus without complications E11.9 ; 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.4 ; History of respiratory failure Z87.09 and History of sepsis Z86.19 [facility] [address] [id number] 17 Jan, 2018 [facility] [id number] [place] [address] 87298- 7516 Jan, [facility] [id number] [place] [address] 45014- 0185 Jan, [facility] [id number] [place] [address] 54459- 2186 Jan, [facility] [id number] [place] [address] 36289- 9160 Jan, [facility] [id number] [place] [address] 57967- 5471 Dec, [facility] [id number] [place] [address] November, Acute cystitis without hematuria N30.00 [facility] [id number] [place] [address]605 -5921 November, Acute cystitis without hematuria N30.00 [facility] [address] [address] November, [facility] [id number] [place] [address] 70424- 6922 Oct, Medicare annual wellness visit, initial Z00.00 ; Encounter for immunization Z23 ; Chronic obstructive pulmonary disease, unspecified COPD type J44.9 ; Coronary artery disease 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 [place] heart without angina pectoris I25.10 ; Chronic congestive heart failure, unspecified congestive heart failure type I50.9 ; Essential hypertension I10 ; Ventricular arrhythmia I49.9 and Other atherosclerosis of [place] arteries of extremities, 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 [facility] [id number], [place] [address] Sep, Chronic congestive heart failure, unspecified congestive heart failure type I50.9 [facility] [id number] [place] [address] 61019- 7532 Aug, [facility] [id number] [place] [address] 33652- 3888 Aug, Chronic congestive heart failure, unspecified congestive heart failure type I50.9 ; Chronic obstructive pulmonary disease, unspecified COPD type J44.9 and Bilateral impacted cerumen H61.23 [facility] [id number] [place] [address] 82426- 1142 Jul, [facility] [id number] [place] [address] 65468- 1197 Jul, [facility] [id number] [place] [address] 16804- 8543 Jun, [facility] [id number] [place] [address] 69764- 0534 Jun, [facility] [id number] [place] [address] 38978- 1209 Jun, Coronary artery disease 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 [place] heart without angina pectoris I25.10 [facility] [address], [place] [address] Jun, [facility] [id number] [place] [address] 60302- 7372 May, Chronic obstructive pulmonary disease, unspecified COPD type J44.9 and History of pneumonia Z87.01 [facility] [id number] [place] [address] [id number] May, [facility] [id number] [place] [address] 68803- 7379 May, [facility] [id number] [place] [address] 70866- 8754 May, [facility] [address], [place] [address]106 May, [facility] [id number] [place] [address] 99822- 2524 Apr, [facility] [address] [place] [address] 49134- 1069 Apr, Coronary artery disease 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 [place] heart without angina pectoris I25.10 and Ventricular arrhythmia I49.9 [facility] [id number] [place] [address] 94877- 9918 Apr, [facility] [id number] [place] [address] 75443- 7731 Apr, [facility] [id number] [place] [address] 71587 -6135 Apr, Dysuria R30.0 and Acute cystitis without hematuria N30.00 [facility] [id number] [place] [address] 79863- 4265 Feb, Epistaxis R04.0 and Chronic obstructive pulmonary disease, unspecified COPD type J44.9 [facility] [id number] [place] [address] 21611- 8908 Jan, Fall from other pedestrian conveyance, initial encounter V00.891A [facility] [id number] [place] [address] 44619- 7706 Jan, Chronic congestive heart failure, unspecified congestive heart failure type I50.9 ; Chronic obstructive pulmonary disease, unspecified COPD type J44.9 and Stasis dermatitis of both legs I87.2 [facility] [address] [place] [address] 06565- 8742 November, Chronic congestive heart failure, unspecified congestive heart failure type I50.9 [facility] [facility] [id number] [place] [address] 60724- 5232 November, Coronary artery disease 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 [place] heart without angina pectoris I25.10 ; Chronic congestive heart failure, unspecified congestive heart failure type I50.9 and Chronic obstructive pulmonary disease, unspecified COPD type J44.9 [facility] [address] [facility] [id number] [address] Oct, [facility] [address] [facility] [id number] [address] 9596 Oct, [facility] [address] [id number] [id number] Oct, [facility] [address] [id number] [id number] Sep, [facility] [address] [place] [id number] Sep, Essential hypertension I10 and Chronic congestive heart failure, unspecified congestive heart failure type I50.9 [facility] [id number] [id number] Sep, [facility] [address] [facility] [id number] [address] 4446 Sep, [facility] [id number], [place] [address] 7578 Jun, [facility] [address] [facility] [id number] [address] 8858 Jun, [facility] [address] [facility] [id number], [place] [address] 8492 May, [facility] [address] [facility] [id number] [address] 7925 May, [facility] [address] [facility] [id number] [address]- 7842 May, [facility] [address] [facility] [id number] [address] 5003 May, [facility] [address] [facility] [id number] [address] 9512 May, Chronic congestive heart failure, unspecified congestive heart failure type I50.9 [facility] [address] [facility] [id number] [address] May, Pain of right lower extremity M79.604 ; History of atrial fibrillation without current medication Z86.79 and Acute deep vein thrombosis ( DVT) of femoral vein of right lower extremity I82.411 [facility] [address] [facility] [id number] [address] 6693 May, [facility] [address], [place] [address] 3985 Feb, [facility] [address] [facility] [id number] [address]- 2041 Feb, Coronary artery disease 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 [place] heart without angina pectoris I25.10 ; Chronic congestive heart failure, unspecified congestive heart failure type I50.9 ; Cardiac defibrillator in place Z95.810 and Candidiasis B37.9 IMMUNIZATIONS Vaccine Route Administration Date Status TDAP (BOOSTRIX) IM Intramuscular November 06, 2017 Administered SOCIAL HISTORY Never Assessed REASON FOR VISIT Medicare AWV - Initial Visit-Tory [facility]LLINS PLAN OF CARE Activity Details Follow Up 1 Year Reason: VITAL SIGNS Height 65 in 2017-11-06 Weight 200.3 lbs 2017-11-06 Temperature 98.1 degrees Fahrenheit 2017-11-06 Heart Rate 76 bpm 2017-11-06 Respiratory Rate 18 2017-11-06 BMI 33.33 kg/m2 2017-11-06 Blood pressure systolic 134 mmHg 2017-11-06 Blood pressure diastolic 78 mmHg 2017-11-06 MEDICATIONS Medication Instructions Dosage Frequency Start Date End Date Duration Status Nebulizer - as directed May, Active All-In-One Nebulizer System - by inhalation route 2 times a day use for Breathing treatments 12h May, Active Mexiletine HCl 150 MG Orally every 8 hrs 1 capsule 8h Active Furosemide 40 mg Orally twice a day 1 tablet 12h Active Nexium 40 MG Orally Once a day 1 capsule 24h Active Amiodarone HCl 200 mg Orally twice weekly on sunday and sunday 1 tablet Active Metoprolol Tartrate 50 mg Orally Twice a day 1/2 tablet with food 12h Active Wheelchair - to use for Mobility 24h 13 Aug, 2017 Active Flovent HFA Active Klor-Con 8 MEQ Orally Once a day 1 tablet 24h Active Albuterol Sulfate 1.25 MG/3ML Inhalation 2 times a day as directed 12h 30 May, 2017 Active Digoxin 125 MCG Orally Once a day 1 tablet 24h Active RESULTS No Results PROCEDURES Procedure Date Ordered Result Body Site ANNUAL PAUNES VST; PERSNL PPS INIT November 06, 2017 FALL RISK ASSESSMENT DOCD November 06, 2017 TDAP (BOOSTRIX) November 06, 2017 PT TOBACCO SCREEN RCVD TLK November 06, 2017 SINGLE IMMUNIZATION ADMIN November 06, 2017 INSTRUCTIONS MEDICATIONS ADMINISTERED No Known Medications [...] Hospitalization History Bronchitis/clinical Pneumonia,hypoxia,sepsis - [facility] [place] 06/21/17 Hospitalization History [facility]- Cardiomyopathy, Defibrillator discharge 01/04/2018 Hospitalization History CHF 02/09/2018
--- OUTSIDE RECORDS SUMMARY | 2018-06-08 14:44 | XMS REPORT ---
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 Active 1925646130220 Problem Chronic congestive heart failure, unspecified congestive heart failure type I50.9 Active 59158399 Problem Type 2 diabetes mellitus without complications E11.9 Active 540981920 Problem long term current use of insulin Z79.4 Active 946733282 Problem Stasis dermatitis of both legs I87.2 Active 39413959 Problem Chronic obstructive pulmonary disease, unspecified COPD type J44.9 Active 15255034 Problem Other atherosclerosis of [place] arteries of extremities, 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 Active 25431195 Problem Ventricular arrhythmia I49.9 Active 84342382 ALLERGIES Substance Reaction Event Type Date Status Penicillin V Potassium rash Drug Allergy Apr, Active Codeine Phosphate Unknown Drug Allergy Apr, Active ENCOUNTERS Encounter Location Date Diagnosis [facility] [id number] [address] Jan, Acute cystitis with hematuria N30.01 and Dysuria R30.0 [facility] [id number] [address] 1426 Jan, [facility] [id number] [place] [address] 23560- 9389 Jan, [facility] [address] [address] 42[address] Jan, [facility] [address] [address] 98[address] Jan, Type 2 diabetes mellitus without complications E11.9 ; long term current use of insulin Z79.4 ; History of respiratory failure Z87.09 and History of sepsis Z86.19 [facility] [address] [address] 17 Jan, 2018 [facility] [id number] [place] [address] 31042- 9566 Jan, [facility] [id number] [place] [address] 63423- 1534 Jan, [facility] [id number] [place] [address] 76338- 2220 Jan, [facility] [id number] [place] [address] 00082- 9406 Jan, [facility] [id number] [place] [address] 38517- 8269 Dec, [facility] [id number] [place] [address] 95097 -9971 November, Acute cystitis without hematuria N30.00 [facility] [address] [place] [address] 13563 -0429 November, Acute cystitis without hematuria N30.00 [facility] [address] [address] 7[address] November, [facility] [id number] [place] [address] 59323- 7640 Oct, Medicare annual wellness visit, initial Z00.00 ; Encounter for immunization Z23 ; Chronic obstructive pulmonary disease, unspecified COPD type J44.9 ; 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.10 ; Chronic congestive heart failure, unspecified congestive heart failure type I50.9 ; Essential hypertension I10 ; Ventricular arrhythmia I49.9 and Other atherosclerosis of [place] arteries of extremities, 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 [facility] [id number] [address] 0904 Sep, Chronic congestive heart failure, unspecified congestive heart failure type I50.9 [facility] [id number] [place] [address] 80384- 7822 Aug, [facility] [address] [place] [address] 22988- 4310 Aug, Chronic congestive heart failure, unspecified congestive heart failure type I50.9 ; Chronic obstructive pulmonary disease, unspecified COPD type J44.9 and Bilateral impacted cerumen H61.23 [facility] [address] [place] [address] 11172- 4152 Jul, [facility] [id number] [place] [address] 25942- 7396 Jul, [facility] [id number] [place] [address] 40331- 8665 Jun, [facility] [id number] [place] [address] 62401- 8143 Jun, [facility] [id number] [place] [address] 92878- 5926 Jun, 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.10 [facility] [address] [address]- 4895 Jun, [facility] [address] [place] [address] 15881- 8108 May, Chronic obstructive pulmonary disease, unspecified COPD type J44.9 and History of pneumonia Z87.01 [facility] [id number] [place] [address] [id number] May, [facility] [id number] [place] [address] 81966- 6473 May, [facility] [id number] [place] [address] 48777- 5614 May, [facility] [address] [address]- 7040 May, [facility] [id number] [place] [address] 65518- 7538 Apr, [facility] [address] [place] [address] 12132- 0777 Apr, 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.10 and Ventricular arrhythmia I49.9 [facility] [id number] [place] [address] 46826- 6461 Apr, [facility] [id number] [place] [address] 21791- 9141 Apr, [facility] [id number] [place] [address] 30239 -6071 Apr, Dysuria R30.0 and Acute cystitis without hematuria N30.00 [facility] [id number] [place] [address] 06339- 6450 Feb, Epistaxis R04.0 and Chronic obstructive pulmonary disease, unspecified COPD type J44.9 [facility] [id number] [place] [address] 23572- 4670 Jan, Fall from other pedestrian conveyance, initial encounter V00.891A [facility] [id number] [place] [address] 50079- 0287 Jan, Chronic congestive heart failure, unspecified congestive heart failure type I50.9 ; Chronic obstructive pulmonary disease, unspecified COPD type J44.9 and Stasis dermatitis of both legs I87.2 [facility] [facility] [address] [place] [address] 42659- 7670 November, Chronic congestive heart failure, unspecified congestive heart failure type I50.9 [place] [facility] [address] [place] [address] 20648- 5046 November, 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.10 ; Chronic congestive heart failure, unspecified congestive heart failure type I50.9 and Chronic obstructive pulmonary disease, unspecified COPD type J44.9 [facility] [address] [facility] [id number] [address] [address]3 Oct, [facility] [address] [facility] [id number] [address]- 6425 Oct, [facility] [address] [id number] [id number] Oct, [facility] [address] [id number] [id number] Sep, Via [facility] [address] [place] [id number] Sep, Essential hypertension I10 and Chronic congestive heart failure, unspecified congestive heart failure type I50.9 [facility] [id number] [id number] Sep, [facility] [address] [facility] [id number] [address]- 9031 Sep, [facility] [id number] [address]- 7442 Jun, [facility] [address] [facility] [id number] [address]- 6278 Jun, [facility] [address] [facility] [id number] [address]- 3606 May, [facility] [address] [facility] [id number] [place] [address]- 9893 May, [facility] [address] [facility] [id number] [place] [address]- 7862 May, [facility] [address] [facility] [id number] [place] [address]- 8005 May, [facility] [address] [facility] [id number] [place] [address]- 7971 May, Chronic congestive heart failure, unspecified congestive heart failure type I50.9 [facility] [address] [facility] [id number] [place] [address] May, Pain of right lower extremity M79.604 ; History of atrial fibrillation without current medication Z86.79 and Acute deep vein thrombosis ( DVT) of femoral vein of right lower extremity I82.411 [facility] [address] [facility] [id number] [place] [address]- 6544 May, [facility] [address] [address]- 6099 Feb, [facility] [address] [facility] [id number] [place] [address]- 8579 Feb, 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.10 ; Chronic congestive heart failure, unspecified congestive heart failure type I50.9 ; Cardiac defibrillator in place Z95.810 and Candidiasis B37.9 IMMUNIZATIONS No Known Immunizations SOCIAL HISTORY Never Assessed REASON FOR VISIT wheelchair eval- needs a new wheelchair, the one he is using now is his wifes, he uses a walker but is not stable with walker and canelisha Jean Baptiste RN PLAN OF CARE Activity Details Follow Up Regular appt Reason: VITAL SIGNS Height 65 in 2017-05-15 Weight 200 lbs 2017-05-15 Temperature 97.9 degrees Fahrenheit 2017-05-15 Heart Rate 78 bpm 2017-05-15 Respiratory Rate 18 2017-05-15 BMI 33.28 kg/m2 2017-05-15 Blood pressure systolic 138 mmHg 2017-05-15 Blood pressure diastolic 78 mmHg 2017-05-15 MEDICATIONS Medication Instructions Dosage Frequency Start Date End Date Duration Status Wheelchair - as directed Apr, Active Furosemide 40 MG Orally Once a day 1 tablet 24h Active Nexium 40 MG Orally Once a day 1 capsule 24h Active Digoxin 125 MCG Orally Once a day 1 tablet 24h Active MiraLax 17 gm/dose Orally Once a day 17 grams mixed in 8 oz of water or juice 24h Active Benzonatate 200 mg Orally 2 times a day 1 capsule as needed 12h Not-Taking Amiodarone HCl 200 MG Orally Once a day 1 tablet 24h Active Mexiletine HCl 150 MG Orally every 8 hrs 1 capsule 8h Active Klor-Con 8 MEQ Orally Once a day 1 tablet 24h Active Keflex 500 mg Orally every 12 hrs 1 capsule 12h Apr, Apr, 10 day(s) Active Amlodipine Besylate 5 MG Orally Once a day 1 tablet 24h Active ProAir HFA 108 (90 Base) MCG/ACT Inhalation 4 times a day 2 puffs as needed 6h November, 30 days Active Metoprolol Tartrate 50 mg Orally Twice a day 1/2 tablet with food 12h Active RESULTS No Results PROCEDURES Procedure Date Ordered Result Body Site [facility] VISIT ESTABLISHED PATIENT May 15, 2017 INSTRUCTIONS MEDICATIONS ADMINISTERED No Known [...] [facility] [place] 06/21/17 Hospitalization History [facility]- Cardiomyopathy, Defibrillator discharge 01/04/2018 Hospitalization History [facility]F 02/09/2018
--- OUTSIDE RECORDS SUMMARY | 2018-06-08 14:44 | XMS REPORT ---
Author Author ABHINAV GONZALEZ [facility] Address [address] [place] [address] Care Team Providers Care Economic Developer Name Role Phone ABHINAV GONZALEZ Unavailable PROBLEMS Type Condition ICD9-CM Code PPF44-DI Code Onset Dates Condition Status SNOMED Code Problem Cardiac defibrillator in place Z95.810 Active 741526124 Problem Essential hypertension I10 Active 56101608 Problem Coronary artery disease involving [place] coronary artery of [place] heart without angina pectoris I25.10 Active 7300926277535 Problem Chronic congestive heart failure, unspecified congestive heart failure type I50.9 Active 11917418 Problem Type 2 diabetes mellitus without complications E11.9 Active 950246410 Problem oysterman current use of insulin Z79.4 Active 989562372 Problem Stasis dermatitis of both legs I87.2 Active 39143165 Problem Chronic obstructive pulmonary disease, unspecified COPD type J44.9 Active 09092389 Problem Other atherosclerosis of [place] arteries of extremities, 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 Active 32790644 Problem Ventricular arrhythmia I49.9 Active 52746114 ALLERGIES No Information ENCOUNTERS Encounter Location Date Diagnosis [facility] [address], [place] [address]- [address] Jan, [facility] [address], [place] [address]- 9663 Jan, [facility] [address] [place] [address] 15552- 2206 Jan, Acute cystitis with hematuria N30.01 and Dysuria R30.0 [facility] [address], [place] [address]- 9578 Jan, [facility] [address], [place] [address]- 2725 Jan, [facility] [address], [place] [address]- 2655 Jan, [facility] [address], [place] [address]- 2061 Jan, Type 2 diabetes mellitus without complications E11.9 ; oysterman current use of insulin Z79.4 ; History of respiratory failure Z87.09 and History of sepsis Z86.19 [facility] [address], [place] [address]- 9027 17 Jan, 2018 [facility] [address], [place] [address]- 5471 Jan, [facility] [address], [place] [address]- 0142 Jan, [facility] [address], [place] [address]- 8303 Jan, [facility] [id number], [place] [address]- 2184 Jan, [facility] [address], [place] [address]- 2828 Dec, [facility] [address], [place] [address] November, Acute cystitis without hematuria N30.00 [facility] [id number], [place] [address] -[address]83 November, Acute cystitis without hematuria N30.00 [facility] [id number], [place] [address]- 0898 November, [facility] [id number], [place] [address]- 6915 Oct, Medicare annual wellness visit, initial Z00.00 ; Encounter for immunization Z23 ; Chronic obstructive pulmonary disease, unspecified COPD type J44.9 ; Coronary artery disease involving [place] coronary artery of [place] heart without angina pectoris I25.10 ; Chronic congestive heart failure, unspecified congestive heart failure type I50.9 ; Essential hypertension I10 ; Ventricular arrhythmia I49.9 and Other atherosclerosis of [place] arteries of extremities, 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 [facility] [id number] [place] [address] 67551- 8698 Sep, Chronic congestive heart failure, unspecified congestive heart failure type I50.9 [facility] [id number] [place] [address] 54851- 8820 Aug, [facility] [address] [address]68- 8676 Aug, Chronic congestive heart failure, unspecified congestive heart failure type I50.9 ; Chronic obstructive pulmonary disease, unspecified COPD type J44.9 and Bilateral impacted cerumen H61.23 [facility] [id number] [place] [address] 79122- 8844 Jul, [facility] [address] 97173- 6239 Jul, [facility] [id number] [place] [address] 13470- 2154 Jun, [facility] [id number] [place] [address] 25438- 6773 Jun, [facility] [id number] [place] [address] 33477- 2491 Jun, Coronary artery disease involving [place] coronary artery of [place] heart without angina pectoris I25.10 [facility] [id number] [place] [address] 58542- 0902 Jun, [facility] [id number] [place] [address] 77959- 5193 May, Chronic obstructive pulmonary disease, unspecified COPD type J44.9 and History of pneumonia Z87.01 [facility] [id number] [place] [address] [id number] May, [facility] [address] [address]00- 0631 May, [facility] [address], [place] [address]- 4498 May, [facility] [id number] [place] [address] 02117- 8146 May, [facility] [id number] [place] [address] 80273- 3711 Apr, [facility] [id number] [place] [address] 22476- 3710 Apr, Coronary artery disease involving [place] coronary artery of [place] heart without angina pectoris I25.10 and Ventricular arrhythmia I49.9 [facility] [id number] [place] [address] 36461- 3305 Apr, [facility] [id number] [place] [address] 23730- 8487 Apr, [facility] [id number] [place] [address] 63288 -5735 Apr, Dysuria R30.0 and Acute cystitis without hematuria N30.00 [facility] [id number] [place] [address] 49254- 8711 Feb, Epistaxis R04.0 and Chronic obstructive pulmonary disease, unspecified COPD type J44.9 [facility] [address] [place] [address] 35521- 1908 Jan, Fall from other pedestrian conveyance, initial encounter V00.891A [facility] [address], [place] [address]- 8691 Jan, Chronic congestive heart failure, unspecified congestive heart failure type I50.9 ; Chronic obstructive pulmonary disease, unspecified COPD type J44.9 and Stasis dermatitis of both legs I87.2 [facility] [address], [place] [address]- 8528 November, Chronic congestive heart failure, unspecified congestive heart failure type I50.9 [facility] [id number], [place] [address]- 4665 November, Coronary artery disease involving [place] coronary artery of [place] heart without angina pectoris I25.10 ; Chronic congestive heart failure, unspecified congestive heart failure type I50.9 and Chronic obstructive pulmonary disease, unspecified COPD type J44.9 [facility] [address] [facility] [place] [id number], [place] [address]- 3273 Oct, [facility] [address] [facility] [place] [id number][place] [address]- 3057 Oct, [facility] [id number] [id number] Oct, [facility] [id number] [place] [address] [id number] Sep, Via [facility] [employer] [address] [facility] [place] [id number] Sep, Essential hypertension I10 and Chronic congestive heart failure, unspecified congestive heart failure type I50.9 [facility] [id number] [id number] Sep, [facility] [address], [place] [address]- 1545 Sep, [facility] [address], [place] [address]- 9915 Jun, [facility] [id number], [place] [address]- 9439 Jun, [facility] [id number], [place] [address]- 2880 May, [facility] [id number], [place] [address]- 8044 May, [facility] [id number], [place] [address]- 3397 May, [facility] [id number], [place] [address]- 0968 May, [facility] [address] [facility] [place] [id number], [place] [address]- 2218 May, Chronic congestive heart failure, unspecified congestive heart failure type I50.9 [facility] [address], [place] [address]55 May, Pain of right lower extremity M79.604 ; History of atrial fibrillation without current medication Z86.79 and Acute deep vein thrombosis ( DVT) of femoral vein of right lower extremity I82.411 [facility] [address], [place] [address]- 0020 May, [facility] [address], [place] [address]- 3225 Feb, [facility] [address], [place] [address]- 1158 Feb, Coronary artery disease involving [place] coronary artery of [place] heart without angina pectoris I25.10 ; Chronic congestive heart failure, unspecified congestive heart failure type I50.9 ; Cardiac defibrillator in place Z95.810 and Candidiasis B37.9 IMMUNIZATIONS No Known Immunizations SOCIAL HISTORY Never Assessed REASON FOR VISIT requests pulse ox and PLAN OF CARE VITAL SIGNS MEDICATIONS Unknown [...] September Hospitalization History Bronchitis/clinical Pneumonia,hypoxia,sepsis - Via [facility] 06/21/17 Hospitalization History [facility]- Cardiomyopathy, Defibrillator discharge 01/04/2018 Hospitalization History CHF 02/09/2018
--- OUTSIDE RECORDS SUMMARY | 2018-06-08 14:44 | XMS REPORT ---
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 Active 1006041254422 Problem Chronic congestive heart failure, unspecified congestive heart failure type I50.9 Active 56399811 Problem Type 2 diabetes mellitus without complications E11.9 Active 986747322 Problem senior care current use of insulin Z79.4 Active 665999684 Problem Stasis dermatitis of both legs I87.2 Active 84570412 Problem Chronic obstructive pulmonary disease, unspecified COPD type J44.9 Active 75972257 Problem 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, 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 Active 40495186 Problem Ventricular arrhythmia I49.9 Active 46685152 ALLERGIES No Information ENCOUNTERS Encounter Location Date Diagnosis [facility] [address] [address] Feb, [facility] [id number] [place] [address] 08625- 5238 Feb, [facility] [id number] [place] [address] 35217- 6098 Jan, [facility] [id number] [place] [address] 34851- 5650 Jan, [facility] [id number] [place] [address] 28144- 4817 Jan, Acute cystitis with hematuria N30.01 and Dysuria R30.0 [facility] [address], [place] [address] Jan, [facility] [id number] [place] [address] 94398- 8319 Jan, [facility] [address], [place] [address] 8[address] Jan, [facility] [id number] [place] [address] 59339- 2573 Jan, Type 2 diabetes mellitus without complications E11.9 ; 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 ; History of respiratory failure Z87.09 and History of sepsis Z86.19 [facility] [id number] [place] [address] 69199- 9091 Jan, [facility] [address], [place] [address] 95[address] Jan, [facility] [id number] [place] [address] 40593- 0007 Jan, [facility] [address], [place] [address] 4096 Jan, [facility] [id number] [place] [address] 36755- 2758 Jan, [facility] [address], [place] [address] Dec, [facility] [address], [place] [address] November, Acute cystitis without hematuria N30.00 [facility] [address], [place] [address] November, Acute cystitis without hematuria N30.00 [facility] [id number] [address] November, [facility] [address], [place] [address] Oct, Medicare annual wellness visit, initial Z00.00 ; Encounter for immunization Z23 ; Chronic obstructive pulmonary disease, unspecified COPD type J44.9 ; 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.10 ; Chronic congestive heart failure, unspecified congestive heart failure type I50.9 ; Essential hypertension I10 ; Ventricular arrhythmia I49.9 and 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, 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 [place] [facility] [id number] [place] [address] 51423- 5916 Sep, Chronic congestive heart failure, unspecified congestive heart failure type I50.9 [facility] [id number] [place] [address] 95394- 1094 Aug, [facility] [id number] [place] [address] 19361- 5685 13 Aug, 2017 Chronic congestive heart failure, unspecified congestive heart failure type I50.9 ; Chronic obstructive pulmonary disease, unspecified COPD type J44.9 and Bilateral impacted cerumen H61.23 [facility] [facility] [id number] [place] [address] 44205- 2411 Jul, [facility] [id number] [place] [address] 79685- 8353 Jul, [facility] [id number] [place] [address] 48665- 0431 Jun, [facility] [id number] [place] [address] 83056- 8713 Jun, [facility] [id number] [place] [address] 42473- 0919 12 Jun, 2017 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.10 [place] [id number] [place] [address] 82673- 8516 11 Jun, 2017 [facility] [facility] [id number] [place] [address] 14243- 2151 May, Chronic obstructive pulmonary disease, unspecified COPD type J44.9 and History of pneumonia Z87.01 [facility] [facility] [id number] [id number] May, [facility] [id number] [place] [address] 80053- 7047 May, [facility] [id number] [place] [address] 61230- 1294 May, [facility] [id number] [place] [address] 54159- 1155 May, [facility] [id number] [place] [address] 57044- 7911 Apr, [facility] [id number] [place] [address] 05543- 2616 Apr, 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.10 and Ventricular arrhythmia I49.9 [facility] [id number] [place] [address] 89747- 1700 Apr, [facility] [id number] [place] [address] 55253- 7008 Apr, [facility] [address] [place] [address] 24510 -2165 Apr, Dysuria R30.0 and Acute cystitis without hematuria N30.00 [facility] [address] [place] [address] 20387- 4797 Feb, Epistaxis R04.0 and Chronic obstructive pulmonary disease, unspecified COPD type J44.9 [facility] [id number] [address] 1132 Jan, Fall from other pedestrian conveyance, initial encounter V00.891A [facility] [address] [place] [address] 20126- 2771 Jan, Chronic congestive heart failure, unspecified congestive heart failure type I50.9 ; Chronic obstructive pulmonary disease, unspecified COPD type J44.9 and Stasis dermatitis of both legs I87.2 [facility] [id number] [address] 9594 November, Chronic congestive heart failure, unspecified congestive heart failure type I50.9 [facility] [id number], [place] [address] 0894 November, 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.10 ; Chronic congestive heart failure, unspecified congestive heart failure type I50.9 and Chronic obstructive pulmonary disease, unspecified COPD type J44.9 [facility] [address], [place] [address] 5755 Oct, [facility] [address], [place] [address]- 8808 Oct, [facility] [facility] [id number] [id number] Oct, [facility] [facility] [id number] [place] [address] [id number] Sep, Via [facility] [address] [place] [id number] Sep, Essential hypertension I10 and Chronic congestive heart failure, unspecified congestive heart failure type I50.9 [facility] [facility] [id number] [id number] Sep, [facility] [id number] [address] 3637 Sep, [facility] [id number] [address] 0750 Jun, [facility] [id number], [place] [address] 0370 Jun, [facility] [address] [address] 7[address] May, [facility] [id number], [place] [address] 9836 May, [facility] [id number], [place] [address]- 8927 May, [facility] [address], [place] [address]- 3267 May, [facility] [address], [place] [address]- 2703 May, Chronic congestive heart failure, unspecified congestive heart failure type I50.9 [facility] [address], [place] [address] May, Pain of right lower extremity M79.604 ; History of atrial fibrillation without current medication Z86.79 and Acute deep vein thrombosis ( DVT) of femoral vein of right lower extremity I82.411 [facility] [address], [place] [address]- 8870 May, [facility] [address], [place] [address]- 7040 Feb, [facility] [address], [place] [address]- 3578 Feb, 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.10 ; Chronic congestive heart failure, unspecified congestive heart failure type I50.9 ; Cardiac defibrillator in place Z95.810 and Candidiasis B37.9 IMMUNIZATIONS No Known Immunizations SOCIAL HISTORY Never Assessed REASON FOR VISIT PLAN OF CARE VITAL SIGNS MEDICATIONS Medication Instructions Dosage Frequency Start Date End Date Duration Status Keflex 500 MG Orally every 6 hrs 1 capsule 6h November, Dec, 10 day(s) Active RESULTS No Results PROCEDURES No Known [...] September Hospitalization History Bronchitis/clinical Pneumonia,hypoxia,sepsis - Via [facility] 06/21/17 Hospitalization History [facility]- Cardiomyopathy, Defibrillator discharge 01/04/2018 Hospitalization History CHF 02/09/2018
--- OUTSIDE RECORDS SUMMARY | 2018-06-08 14:45 | XMS REPORT ---
Author Author ABHINAV GONZALEZ Organization [facility] Address [address] [place] [address] Care Team Providers Care Performance Instructor Name Role Phone ABHINAV GONZALEZ Unavailable PROBLEMS Type Condition ICD9-CM Code ZGG32-XY Code Onset Dates Condition Status SNOMED Code Problem Cardiac defibrillator in place Z95.810 Active 101581677 Problem Chronic congestive heart failure, unspecified congestive heart failure type I50.9 Active 90805554 Problem Other atherosclerosis of elem arteries of extremities, 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 Active 96865830 Problem Ventricular arrhythmia I49.9 Active 50468793 Problem Essential hypertension I10 Active 46620412 Problem Coronary artery disease involving elem coronary artery of elem heart without angina pectoris I25.10 Active 4369374096360 Problem Stasis dermatitis of both legs I87.2 Active 79989889 Problem Chronic obstructive pulmonary disease, unspecified COPD type J44.9 Active 92566413 ALLERGIES No Information ENCOUNTERS Encounter Location Date Diagnosis [facility] [id number] [place] [address] 55181- 2281 Oct, Medicare annual wellness visit, initial Z00.00 ; Encounter for immunization Z23 ; Chronic obstructive pulmonary disease, unspecified COPD type J44.9 ; Coronary artery disease involving elem coronary artery of elem heart without angina pectoris I25.10 ; Chronic congestive heart failure, unspecified congestive heart failure type I50.9 ; Essential hypertension I10 ; Ventricular arrhythmia I49.9 and Other atherosclerosis of elem arteries of extremities, 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 [facility] [id number] [address]- 5256 Sep, Chronic congestive heart failure, unspecified congestive heart failure type I50.9 [facility] [id number] [address]- 5132 Aug, [facility] [address] [place] [id number] [address]- 8276 Aug, Chronic congestive heart failure, unspecified congestive heart failure type I50.9 ; Chronic obstructive pulmonary disease, unspecified COPD type J44.9 and Bilateral impacted cerumen H61.23 [facility] [id number] [address]- 2011 Jul, [facility] [id number] [place] [address] 53743- 6611 Jul, [facility] [id number] [place] [address] 61523- 2342 Jun, [facility] [id number] [place] [address] 91474- 3894 Jun, [facility] [id number] [place] [address] 36076- 8065 Jun, Coronary artery disease involving elem coronary artery of elem heart without angina pectoris I25.10 [facility] [id number] [place] [address] 05898- 8519 Jun, [facility] [id number] [place] [address] 97841- 2558 May, Chronic obstructive pulmonary disease, unspecified COPD type J44.9 and History of pneumonia Z87.01 [facility] [id number] [place] [address] [id number] May, [facility] [address] [place] [address] 21906- 4666 May, [facility] [address] [place] [address] 20193- 1572 May, [facility] [id number] [place] [address] 53977- 7091 May, [facility] [address] [address]- 5409 Apr, [facility] [id number] [place] [address] 00590- 8797 Apr, Coronary artery disease involving elem coronary artery of elem heart without angina pectoris I25.10 and Ventricular arrhythmia I49.9 [facility] [address] [place] [address] 14668- 4161 Apr, [facility] [id number] [place] [address] 67110- 2188 Apr, [facility] [id number] [place] [address] 15603 -1377 Apr, Dysuria R30.0 and Acute cystitis without hematuria N30.00 [place] [id number] [place] [address] 60244- 6493 Feb, Epistaxis R04.0 and Chronic obstructive pulmonary disease, unspecified COPD type J44.9 [place] [id number] [place] [address] 86880- 6450 Jan, Fall from other pedestrian conveyance, initial encounter V00.891A [place] [facility] [id number] [place] [address] 90287- 1030 Jan, Chronic congestive heart failure, unspecified congestive heart failure type I50.9 ; Chronic obstructive pulmonary disease, unspecified COPD type J44.9 and Stasis dermatitis of both legs I87.2 [place] [address] [place] [address] 11268- 5378 November, Chronic congestive heart failure, unspecified congestive heart failure type I50.9 [place] [address] [place] [address] 70652- 5263 November, Coronary artery disease involving elem coronary artery of elem heart without angina pectoris I25.10 ; Chronic congestive heart failure, unspecified congestive heart failure type I50.9 and Chronic obstructive pulmonary disease, unspecified COPD type J44.9 [facility] [address] [place] [address] 12650- 6932 Oct, [place] [id number] [place] [address] 78867- 6038 Oct, [facility] [address] [id number] [id number] Oct, [facility] [id number] [id number] Sep, Via [facility] [address] [place] [id number] Sep, Essential hypertension I10 and Chronic congestive heart failure, unspecified congestive heart failure type I50.9 [facility] [address] [id number] [id number] Sep, [facility] [address] [facility] [id number] [address]- 4619 Sep, [facility] [address] [facility] [id number], [place] [address]- 3194 Jun, [facility] [address] [address]- 7456 Jun, [facility] [address] [address]- 1417 May, [facility] [id number] [address]- 6047 May, [facility] [address] [address]- 4751 May, [facility] [address] [address]- 0299 May, [facility] [id number] [address]- 2119 May, Chronic congestive heart failure, unspecified congestive heart failure type I50.9 [facility] [address] [facility] [id number] [address] May, Pain of right lower extremity M79.604 ; History of atrial fibrillation without current medication Z86.79 and Acute deep vein thrombosis ( DVT) of femoral vein of right lower extremity I82.411 [facility] [address] [facility] [id number] [place] [address]- 0474 May, [facility] [address] [facility] [id number] [place] [address]- 8216 Feb, [facility] [address] [facility] [id number] [place] [address]- 6780 Feb, Coronary artery disease involving elem coronary artery of elem heart without angina pectoris I25.10 ; Chronic congestive heart failure, unspecified congestive heart failure type I50.9 ; Cardiac defibrillator in place Z95.810 and Candidiasis B37.9 IMMUNIZATIONS No Known Immunizations SOCIAL HISTORY Never Assessed REASON FOR VISIT LVM PLAN OF CARE VITAL SIGNS MEDICATIONS No Known Medications RESULTS No Results PROCEDURES No Known procedures INSTRUCTIONS MEDICATIONS ADMINISTERED No Known Medications MEDICAL (GENERAL) HISTORY Type Description Date Medical History hypertension Medical History skin cancer-arms, face Medical History [place] Medical History Pneumonia Surgical History heart cath-2 stents, multiple balloons Surgical History open heart surgery 1987 Surgical History defibrillator placed 2013 Hospitalization History surgery Hospitalization History pneumonia 2014 Hospitalization History broken left hip at September Hospitalization History Bronchitis/clinical Pneumonia,hypoxia,sepsis - Via [facility] 06/21/17
--- OUTSIDE RECORDS SUMMARY | 2018-06-08 14:45 | XMS REPORT ---
Author Author ABHINAV GONZALEZ Organization [facility] Address [address] [place] [address] Care Team Providers Care Technical Customer Support Specialist Name Role Phone ABHINAV GONZALEZ Unavailable PROBLEMS Type Condition ICD9-CM Code WGF06-PF Code Onset Dates Condition Status SNOMED Code Problem Cardiac defibrillator in place Z95.810 Active 957842478 Problem Chronic congestive heart failure, unspecified congestive heart failure type I50.9 Active 56519586 Problem Other atherosclerosis of augustine arteries of extremities, 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 Active 96063270 Problem Ventricular arrhythmia I49.9 Active 24656995 Problem Essential hypertension I10 Active 96725494 Problem Coronary artery disease involving augustine coronary artery of augustine heart without angina pectoris I25.10 Active [id number] Problem Stasis dermatitis of both legs I87.2 Active 00775382 Problem Chronic obstructive pulmonary disease, unspecified COPD type J44.9 Active 33982686 ALLERGIES No Information ENCOUNTERS Encounter Location Date Diagnosis [facility] [id number] [place] [address] 31416- 9768 Jan, [facility] [id number] [place] [address] 56104- 8857 Dec, [facility] [id number] [place] [address] 15323 -9992 November, Acute cystitis without hematuria N30.00 [facility] [id number] [place] [address] 51381 -9629 November, Acute cystitis without hematuria N30.00 [facility] [id number] [place] [address] 38813- 5669 November, [facility] [id number] [place] [address] 70228- 2974 Oct, Medicare annual wellness visit, initial Z00.00 ; Encounter for immunization Z23 ; Chronic obstructive pulmonary disease, unspecified COPD type J44.9 ; Coronary artery disease involving augustine coronary artery of augustine heart without angina pectoris I25.10 ; Chronic congestive heart failure, unspecified congestive heart failure type I50.9 ; Essential hypertension I10 ; Ventricular arrhythmia I49.9 and Other atherosclerosis of augustine arteries of extremities, 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 [place] [id number] [place] [address] 40427- 7515 Sep, Chronic congestive heart failure, unspecified congestive heart failure type I50.9 [facility] [id number] [place] [address] 12040- 7655 Aug, [facility] [id number] [place] [address] 99813- 5882 13 Aug, 2017 Chronic congestive heart failure, unspecified congestive heart failure type I50.9 ; Chronic obstructive pulmonary disease, unspecified COPD type J44.9 and Bilateral impacted cerumen H61.23 [place] [facility] [id number] [place] [address] 65691- 2019 Jul, [facility] [facility] [id number] [place] [address] 06923- 9502 Jul, [facility] [id number] [place] [address] 03216- 6979 Jun, [facility] [id number] [place] [address] 43933- 9678 Jun, [facility] [id number] [place] [address] 59510- 3050 12 Jun, 2017 Coronary artery disease involving augustine coronary artery of augustine heart without angina pectoris I25.10 [facility] [facility] [id number] [place] [address] 37307- 9294 11 Jun, 2017 [facility] [id number] [place] [address] 11415- 6423 30 May, 2017 Chronic obstructive pulmonary disease, unspecified COPD type J44.9 and History of pneumonia Z87.01 [facility] [id number] [id number] May, [facility] [id number] [place] [address] 51510- 0988 May, [facility] [id number] [place] [address] 96581- 5703 May, [facility] [id number] [place] [address] 10739- 3107 May, [facility] [id number] [place] [address] 58287- 1715 Apr, [facility] [id number] [place] [address] 81929- 6857 Apr, Coronary artery disease involving augustine coronary artery of augustine heart without angina pectoris I25.10 and Ventricular arrhythmia I49.9 [facility] [id number] [place] [address] 69116- 9113 Apr, [facility] [address] [place] [address] 34541- 3492 Apr, [facility] [address] [place] [address] 82221 -9441 Apr, Dysuria R30.0 and Acute cystitis without hematuria N30.00 [facility] [address] [place] [address] 49665- 3785 Feb, Epistaxis R04.0 and Chronic obstructive pulmonary disease, unspecified COPD type J44.9 [facility] [address] [place] [address] 24811- 2090 Jan, Fall from other pedestrian conveyance, initial encounter V00.891A [facility] [facility] [id number] [place] [address] 18639- 7483 Jan, Chronic congestive heart failure, unspecified congestive heart failure type I50.9 ; Chronic obstructive pulmonary disease, unspecified COPD type J44.9 and Stasis dermatitis of both legs I87.2 [facility] [address] [facility] [id number] [address]- 9883 November, Chronic congestive heart failure, unspecified congestive heart failure type I50.9 [facility] [id number] [address] 9133 November, Coronary artery disease involving augustine coronary artery of augustine heart without angina pectoris I25.10 ; Chronic congestive heart failure, unspecified congestive heart failure type I50.9 and Chronic obstructive pulmonary disease, unspecified COPD type J44.9 [facility] [address] [facility] [id number] [address]- 2647 Oct, [facility] [address] [address] 5197 Oct, [facility] [id number] [id number] Oct, [facility] [id number] [place] [id number] Sep, [facility] [employer] [address] [place] [id number] Sep, Essential hypertension I10 and Chronic congestive heart failure, unspecified congestive heart failure type I50.9 [facility] [id number] [id number] Sep, [facility] [id number] [address]- 9191 Sep, [facility] [id number] [address]- 5104 Jun, [facility] [id number] [address]- 9179 Jun, [facility] [id number] [address]- 7428 May, [facility] [id number] [address]- 0761 May, [facility] [address] [address]- 5927 May, [facility] [address] [address]- 9501 May, [facility] [address] [address]- 3996 May, Chronic congestive heart failure, unspecified congestive heart failure type I50.9 [facility] [address] [address] May, Pain of right lower extremity M79.604 ; History of atrial fibrillation without current medication Z86.79 and Acute deep vein thrombosis ( DVT) of femoral vein of right lower extremity I82.411 [facility] [address] [address]- 1380 May, [facility] [address] [place] [address] 77058- 9807 Feb, [facility] [address] [address]- 7343 Feb, Coronary artery disease involving augustine coronary artery of augustine heart without angina pectoris I25.10 ; Chronic [...] Medical History skin cancer-arms, face Medical History OR Medical History Pneumonia Surgical History heart cath-2 stents, multiple balloons Surgical History open heart surgery 1987 Surgical History defibrillator placed 2013 Hospitalization History surgery Hospitalization History pneumonia 2014 Hospitalization History broken left hip at September Hospitalization History Bronchitis/clinical Pneumonia,hypoxia,sepsis - Via [facility] 06/21/17
--- OUTSIDE RECORDS SUMMARY | 2018-06-08 14:45 | XMS REPORT ---
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 Active 97857965 Problem Ventricular arrhythmia I49.9 Active 70248808 Problem Essential hypertension I10 Active 45480336 Problem Coronary artery disease involving campo coronary artery of campo heart without angina pectoris I25.10 Active 4627261534700 Problem Stasis dermatitis of both legs I87.2 Active 20515958 Problem Chronic obstructive pulmonary disease, unspecified COPD type J44.9 Active 53642355 ALLERGIES No Information ENCOUNTERS Encounter Location Date Diagnosis [facility] [id number] [place] [address] 59091- 0956 Jan, [facility] [id number] [place] [address] 17010- 6921 Dec, [facility] [id number] [place] [address] 93209 -4567 November, Acute cystitis without hematuria N30.00 [facility] [id number] [place] [address] 17278 -1514 November, Acute cystitis without hematuria N30.00 [facility] [address] 83519- 9624 November, [facility] [id number] [place] [address] 38356- 5400 10 Apr, 2018 Encounter for immunization Z23 ; Medicare annual wellness visit, initial Z00.00 ; Chronic obstructive pulmonary disease, unspecified COPD type J44.9 ; Coronary artery disease involving campo coronary artery of campo heart without angina pectoris I25.10 ; Chronic congestive heart failure, unspecified congestive heart failure type I50.9 ; Essential hypertension I10 ; Ventricular arrhythmia I49.9 and Other atherosclerosis of campo arteries of extremities, 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 [place] [id number] [place] [address] 69553- 8815 Sep, Chronic congestive heart failure, unspecified congestive heart failure type I50.9 [place] [facility] [id number] [place] [address] 41222- 8796 Aug, [place] [facility] [id number] [place] [address] 33154- 0641 13 Aug, 2017 Chronic congestive heart failure, unspecified congestive heart failure type I50.9 ; Chronic obstructive pulmonary disease, unspecified COPD type J44.9 and Bilateral impacted cerumen H61.23 [place] [id number] [place] [address] 02949- 1866 Jul, [place] [facility] [id number] [place] [address] 73870- 9354 Jul, [place] [id number] [place] [address] 37332- 1207 Jun, [place] [facility] [id number] [place] [address] 38665- 2127 Jun, [place] [id number] [place] [address] 69033- 8752 12 Jun, 2017 Coronary artery disease involving campo coronary artery of campo heart without angina pectoris I25.10 [place] [id number] [place] [address] 61417- 5815 11 Jun, 2017 [place] [id number] [place] [address] 87465- 0332 30 May, 2017 Chronic obstructive pulmonary disease, unspecified COPD type J44.9 and History of pneumonia Z87.01 [facility] [id number] [address] May, [facility] [id number] [place] [address] 77319- 7021 May, [facility] [id number] [place] [address] 98732- 5870 May, [facility] [id number] [place] [address] 68249- 5059 May, [facility] [id number] [place] [address] 87505- 6967 Apr, [facility] [id number] [place] [address] 28556- 5210 Apr, Coronary artery disease involving campo coronary artery of campo heart without angina pectoris I25.10 and Ventricular arrhythmia I49.9 [facility] [id number] [place] [address] 71607- 5862 Apr, [facility] [id number] [place] [address] 51191- 1953 Apr, [facility] [id number] [place] [address] 58388 -7552 Apr, Dysuria R30.0 and Acute cystitis without hematuria N30.00 [facility] [id number] [place] [address] 03028- 2449 Feb, Epistaxis R04.0 and Chronic obstructive pulmonary disease, unspecified COPD type J44.9 [facility] [id number] [place] [address] 91407- 6475 Jan, Fall from other pedestrian conveyance, initial encounter V00.891A [place] [id number] [place] [address] 23684- 6827 Jan, Chronic congestive heart failure, unspecified congestive heart failure type I50.9 ; Chronic obstructive pulmonary disease, unspecified COPD type J44.9 and Stasis dermatitis of both legs I87.2 [facility] [address] [facility] [id number] [address]- 9503 November, Chronic congestive heart failure, unspecified congestive heart failure type I50.9 [facility] [address] [id number] [address]- 8138 November, Coronary artery disease involving campo coronary artery of campo heart without angina pectoris I25.10 ; Chronic congestive heart failure, unspecified congestive heart failure type I50.9 and Chronic obstructive pulmonary disease, unspecified COPD type J44.9 [facility] [address] [facility] [id number] [place] [address]- 6510 Oct, [facility] [address] [address]- 1863 Oct, [facility] [address] [id number] [id number] Oct, [facility] [id number] [place] [id number] Sep, [facility] [employer] [address] [place] [id number] Sep, Essential hypertension I10 and Chronic congestive heart failure, unspecified congestive heart failure type I50.9 [facility] [id number] [place] [address] Sep, [facility] [address] [id number] [address]- 2683 Sep, [facility] [id number] [address]- 1468 Jun, [facility] [address] [id number] [address]- 7509 Jun, [facility] [address] [id number] [address]- 8171 May, [facility] [address] [id number] [address]- 3717 May, [facility] [address] [address]- 8814 May, [facility] [address] [address]- 0674 May, [facility] [address] [address]- 6193 May, Chronic congestive heart failure, unspecified congestive heart failure type I50.9 [facility] [address] [address]90 May, Pain of right lower extremity M79.604 ; History of atrial fibrillation without current medication Z86.79 and Acute deep vein thrombosis ( DVT) of femoral vein of right lower extremity I82.411 [facility] [address] [address]- 7228 May, [facility] [address] [address]- 1213 Feb, [facility] [address] [address]- 0252 Feb, Coronary artery disease involving campo coronary artery of campo heart without angina pectoris I25.10 ; Chronic congestive heart failure, unspecified congestive heart failure type I50.9 ; Cardiac defibrillator in place Z95.810 and Candidiasis B37.9 IMMUNIZATIONS No Known Immunizations SOCIAL HISTORY Never Assessed REASON FOR VISIT Re-fax wheelchair scripts PLAN OF CARE VITAL SIGNS MEDICATIONS Medication Instructions Dosage Frequency Start Date End Date Duration Status Wheelchair - to use for Mobility 24h Aug, Active RESULTS No Results PROCEDURES No Known [...] September Hospitalization History Bronchitis/clinical Pneumonia,hypoxia,sepsis - Via [facility] 06/21/17
--- OUTSIDE RECORDS SUMMARY | 2018-06-08 14:45 | XMS REPORT ---
Author Author ABHINAV GONZALEZ Organization [facility] Address [address] [place] [address] Care Team Providers Care Floor Supervisor Name Role Phone ABHINAV GONZALEZ Unavailable PROBLEMS Type Condition ICD9-CM Code EAR01-GO Code Onset Dates Condition Status SNOMED Code Problem Cardiac defibrillator in place Z95.810 Active 329151019 Problem Chronic congestive heart failure, unspecified congestive heart failure type I50.9 Active 60522955 Problem Other atherosclerosis of [place] arteries of extremities, 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 Active 44154923 Problem Ventricular arrhythmia I49.9 Active 75501250 Problem Essential hypertension I10 Active 09613417 Problem Coronary artery disease involving [place] coronary artery of [place] heart without angina pectoris I25.10 Active 4811346703378 Problem Stasis dermatitis of both legs I87.2 Active 90060037 Problem Chronic obstructive pulmonary disease, unspecified COPD type J44.9 Active 71777961 ALLERGIES No Information ENCOUNTERS Encounter Location Date Diagnosis [facility] WALK IN [facility] [id number] [place] [phone] November, Acute cystitis without hematuria N30.00 [facility] WALK IN [facility] [id number] [place] [address] November, Acute cystitis without hematuria N30.00 [facility] [id number] [place] [address] November, [facility] [address] [address] Oct, Medicare annual wellness visit, initial Z00.00 ; Encounter for immunization Z23 ; Chronic obstructive pulmonary disease, unspecified COPD type J44.9 ; Coronary artery disease involving [place] coronary artery of [place] heart without angina pectoris I25.10 ; Chronic congestive heart failure, unspecified congestive heart failure type I50.9 ; Essential hypertension I10 ; Ventricular arrhythmia I49.9 and Other atherosclerosis of [place] arteries of extremities, 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 [place] [id number] [place] [address] Sep, Chronic congestive heart failure, unspecified congestive heart failure type I50.9 [facility] [id number] [place] [address] Aug, [place] [address] [address] Aug, Chronic congestive heart failure, unspecified congestive heart failure type I50.9 ; Chronic obstructive pulmonary disease, unspecified COPD type J44.9 and Bilateral impacted cerumen H61.23 [place] [id number] [place] [address]65[address] Jul, [place] [address] [address] Jul, [facility] [id number] [place] [address]95[address] Jun, [place] [id number] [place] [address]72- [address]57 Jun, [facility] [id number] [place] [address]309- [address] Jun, Coronary artery disease involving [place] coronary artery of [place] heart without angina pectoris I25.10 [place] [id number] [place] [address]- 80[address] Jun, [facility] [id number] [place] [address] May, Chronic obstructive pulmonary disease, unspecified COPD type J44.9 and History of pneumonia Z87.01 [facility] [id number] [place] [id number] May, [place] [address] [address] May, [facility] [address] [address] May, [facility] [id number] [place] [address]46[address] 350[address] May, [facility] [id number] [place] [address] 75358[address] 2105 Apr, [facility] [id number] [place] [address] 90298- 0590 Apr, Coronary artery disease involving [place] coronary artery of [place] heart without angina pectoris I25.10 and Ventricular arrhythmia I49.9 [facility] [id number] [place] [address]- 269[address] Apr, [facility] [id number] [place] [address] 14014- 7192 Apr, [facility] [id number] [place] [address] Apr, Dysuria R30.0 and Acute cystitis without hematuria N30.00 [facility] [id number] [place] [address]1876- 6368 Feb, Epistaxis R04.0 and Chronic obstructive pulmonary disease, unspecified COPD type J44.9 [facility] [address] [place] [address]278[address] 9574 Jan, Fall from other pedestrian conveyance, initial encounter V00.891A [facility] [address] [place] [address] Jan, Chronic congestive heart failure, unspecified congestive heart failure type I50.9 ; Chronic obstructive pulmonary disease, unspecified COPD type J44.9 and Stasis dermatitis of both legs I87.2 [facility] [address] [place] [address] November, Chronic congestive heart failure, unspecified congestive heart failure type I50.9 [facility] [id number] [address] November, Coronary artery disease involving [place] coronary artery of [place] heart without angina pectoris I25.10 ; Chronic congestive heart failure, unspecified congestive heart failure type I50.9 and Chronic obstructive pulmonary disease, unspecified COPD type J44.9 [facility] [address] [facility] [id number] [address] Oct, [facility] [address] [facility] [id number] [address] Oct, [facility] [id number] [id number] Oct, [facility] [id number] [place] [id number] Sep, Via [facility] [employer] [address] [facility] [place] [id number] Sep, Essential hypertension I10 and Chronic congestive heart failure, unspecified congestive heart failure type I50.9 [facility] [id number] [id number] Sep, [facility] [address] [place] [address] Sep, [facility] [address] [place] [address] Jun, [facility] [id number] [address] Jun, [facility] [id number], [place] [address] May, [facility] [id number], [place] [address] May, [facility] [id number] [address] May, [facility] [id number], [place] [address] May, [facility] [address] [facility] [id number] [address] May, Chronic congestive heart failure, unspecified congestive heart failure type I50.9 [facility] [address] [address] May, Pain of right lower extremity M79.604 ; History of atrial fibrillation without current medication Z86.79 and Acute deep vein thrombosis ( DVT) of femoral vein of right lower extremity I82.411 [facility] [address] [address] May, [facility] [address] [place] [address] 04888- 3[address] Feb, [facility] [address], [place] [address] Feb, Coronary artery disease involving [place] coronary artery of [place] heart without angina pectoris I25.10 ; Chronic [...] September Hospitalization History Bronchitis/clinical Pneumonia,hypoxia,sepsis - Via [facility] [place], operated by [facility] 06/21/17
[2018-06-08 14:47] LABS: BACTERIA,URINE FEW /HPF
[2018-06-08 15:08] LABS: ALBUMIN 3.5 GM/DL (3.2-4.5); BILIRUBIN,TOTAL 0.4 MG/DL (0.1-1.0); CREATININE SERUM 1.4 MG/DL (0.60-1.30)
[2018-06-08 15:18] LABS: BASOPHILS % (AUTO) 0 % (0-10); EOSINOPHILS % (AUTO) 0 % (0-10); HEMATOCRIT 38 % (40-54); HEMOGLOBIN 12.1 G/DL (13.3-17.7); LYMPHOCYTES # (AUTO) 1.8 X 10^3 (1.0-4.0); LYMPHOCYTES % (AUTO) 10 % (12-44); MEAN CORPUSCULAR HEMOGLOBIN 30 PG (25-34); MEAN CORPUSCULAR HGB CONC 32 G/DL (32-36); MEAN CORPUSCULAR VOLUME 92 FL (80-99); MEAN PLATELET VOLUME 9.9 FL (7.4-10.4); MONOCYTES # (AUTO) 1.8 X 10^3 (0.0-1.0); MONOCYTES % (AUTO) 10 % (0-12); NEUTROPHILS # (AUTO) 14.9 X 10^3 (1.8-7.8); NEUTROPHILS % (AUTO) 80 % (42-75); PLATELET COUNT 352 10^3/uL (130-400); RED BLOOD COUNT 4.07 10^6/uL (4.35-5.85); WHITE BLOOD COUNT 18.5 10^3/uL (4.3-11.0)
--- NOTE | 2018-06-08 15:40 | Diagnostic Imaging Report ---
PROCEDURE: CT abdomen and pelvis without contrast. TECHNIQUE: Multiple contiguous axial images were obtained through the abdomen and pelvis without the use of intravenous contrast. INDICATION: Abdominal pain. FINDINGS: The previous CT aorta exam of 07/10/2016 failed to show any sign of an acute abnormality. There was atherosclerotic disease of both common iliac arteries, however. In the interval since the previous study, numerous calcifications have developed within the left kidney. 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 Furthermore, there is now obstruction of the left collecting system due to 2 or 3 prominent calculi within the proximal left ureter. The calculi measure approximately 10 and 20 mm in maximum longitudinal dimension. The cysts associated with the left kidney, seen previously, are again evident and slightly greater in size. There is also coarse perinephric stranding about the left kidney consistent with obstruction. There is no evidence for obstruction of the right collecting system. The cyst on the lateral aspect of the right kidney, seen previously, is essentially no different. The liver, spleen, gallbladder, adrenals, pancreas, aorta and inferior vena cava show no sign of an acute abnormality. The 1.3 x 2.2 cm fatty lesion associated with the right adrenal gland, seen previously, is again evident and no different. 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 The stomach is not well-distended and consequently difficult to assess. In the interval since the previous exam a 1.4 x 2.2 cm calculus has developed in the base of the bladder. The bladder is otherwise unremarkable. The prostate gland is not enlarged. There is no pelvic mass or free fluid collection noted. The appendix was visualized and is not abnormally thickened. The bone windows show no sign of an acute fracture. There does appear to be a long-standing compression deformity of T12 and there is mild anterior wedging of T11. There are also bilateral pars defects at L5 with a grade 1 spondylolisthesis of L5 with respect to S1. The lung bases are clear. There is mild compressive atelectasis adjacent to the elevated right hemidiaphragm. The heart is enlarged and there is a pacemaker in place. IMPRESSION: 1. There is a high-grade obstruction of the left collecting system due to two large calculi within the proximal left ureter. There is also a newly developed 1.4 x 2.2 cm bladder calculus and there may be early staghorn calculus formation in the left kidney.. 2. There is no acute abnormality of the abdomen or pelvis noted otherwise. Dictated by: Dictated on workstation # [id number]
[2018-06-08] MEDS ORDERED: cefTRIAXone FOR IV USE 1,000 MG in NS (IVPB) 50 ML IV ONE (15:45)
[2018-06-08 16:02] LABS: BAND NEUTROPHILS 0 %; BASOPHILS % (MANUAL) 0 %; EOSINOPHILS % (MANUAL) 0 %; LYMPHOCYTES % (MANUAL) 10 %; MONOCYTES % (MANUAL) 7 %; NEUTROPHILS % (MANUAL) 83 %; RBC MORPH NORMAL
[2018-06-08 17:28] VITALS: BP 142/82
[2018-06-08 17:29] VITALS: BP 142/82
--- NOTE | 2018-06-08 17:35 | Diagnostic Imaging Report ---
INDICATION: Kidney stones, follow-up to CT scan from earlier today. FINDINGS: KUB demonstrates a staghorn calculus in the left kidney. No calculi are seen in the right kidney or along the course of the ureters. Phleboliths are present in the pelvis. The bowel gas pattern appears normal. 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 Dictated by: Dictated on workstation # [id number]
[2018-06-08 19:30] VITALS: BP 146/69
[2018-06-08] MEDS ORDERED: NS IV 1000 ML 1,000 ML ONE (19:36)
[2018-06-08] MEDS ORDERED: fentaNYL INJECTION 100 MCG/2 ML AMP IV PRN (20:15)
[2018-06-08] MEDS ORDERED: ONDANSETRON 4 MG/2 ML (SDV) Z0FRAN IV PRN (20:15)
[2018-06-09] VITALS: BP 159/80
[2018-06-09] MEDS: NS IV 1000 ML 1,000 ML IV SCH ×4 (02:00→20:52)
[2018-06-09 04:00] VITALS: BP 168/74
[2018-06-09 04:44] LABS: BASOPHILS % (AUTO) 0 % (0-10); EOSINOPHILS % (AUTO) 0 % (0-10); HEMATOCRIT 35 % (40-54); HEMOGLOBIN 11.4 G/DL (13.3-17.7); LYMPHOCYTES # (AUTO) 1.2 X 10^3 (1.0-4.0); LYMPHOCYTES % (AUTO) 7 % (12-44); MEAN CORPUSCULAR HEMOGLOBIN 30 PG (25-34); MEAN CORPUSCULAR HGB CONC 32 G/DL (32-36); MEAN CORPUSCULAR VOLUME 93 FL (80-99); MONOCYTES # (AUTO) 2.1 X 10^3 (0.0-1.0); MONOCYTES % (AUTO) 12 % (0-12); NEUTROPHILS # (AUTO) 14.3 X 10^3 (1.8-7.8); NEUTROPHILS % (AUTO) 81 % (42-75); PLATELET COUNT 283 10^3/uL (130-400); RED BLOOD COUNT 3.81 10^6/uL (4.35-5.85); RED CELL DISTRIBUTION WIDTH 15.6 % (10.0-14.5); WHITE BLOOD COUNT 17.7 10^3/uL (4.3-11.0)
[2018-06-09 05:00] LABS: CALCIUM 9.4 MG/DL (8.5-10.1); CREATININE SERUM 1.19 MG/DL (0.60-1.30); POTASSIUM 3.9 MMOL/L (3.6-5.0)
[2018-06-09 08:00] VITALS: BP 149/79
[2018-06-09] MEDS: DOCUSATE SODIUM 100 MG (COLACE) CAP PO SCH (11:56)
[2018-06-09 12:00] VITALS: BP 157/78
--- NOTE | 2018-06-09 12:01 | History & Physicial (CHS) ---
HPI History of Present Illness: provides most of history. States he has had abdominal pain on the right side for about a month. Was treated for UTI x 2 without benefit and also recommended laxative, but she did not believe that was the problem because he was having BM every day. She also noted some swelling in the lower right abdomen. Yesterday due to worsening pain, brought to ER. They deny fever at home , deny nausea, vomiting, diarrhea, constipation. Source: family Date seen by provider: Jun 09, 2018 Time Seen by Provider: 10:30 Attending Physician Yanely Donohue MD PCP Elliot Gonzalez MD Consult Date of Admission Jun 08, 2018 at 4:15 pm Home Medications Home Medications Reviewed patient Home Medication Reconciliation performed by pharmacy medication reconciliations ag equipment field service technician and/or nursing. Patients Allergies have been reviewed. Allergies Coded Allergies: Penicillins (Verified Allergy, Severe, HIVES, SOB, 01/04/18) codeine (Verified Allergy, Severe, SOB, HIVES, 01/04/18) [id number] Hx Patient Social History Alcohol Use: Denies Use Recreational Drug Use: No Smoking Status: Former Smoker Former smoker/When Quit: Aug 02, 1987 Type Used: Cigarettes 2nd Hand Smoke Exposure: No Recent Foreign Travel: No Contact w/other who traveled: No Recent Hopitalizations: No Recent Infectious Disease Expo: No Physical Abuse Screen: No Sexual Abuse: No Immunizations Up To Date Tetanus Booster (TDap): More than 5yrs Date of Pneumonia Vaccine: Apr 29, 2014 Date of Influenza Vaccine: May 08, 2018 Past Medical History CAD s/p CABG and stent x2 CHF Hypertension COPD hx of ventricular arrhythmia s/p defibrillator placement Atherosclerosis of the R leg Stasis dematitis Family Medical History Significant Family History: Heart Disease Family History: Cardiovascular disease 19 MOTHER G8 BROTHER G8 SISTER Cervical cancer 19 MOTHER Review of Systems (CHC) Constitutional: No fever EENTM: no symptoms reported Respiratory: No cough, No short of breath Cardiovascular: No chest pain Gastrointestinal: see HPI Genitourinary: frequency Musculoskeletal: no symptoms reported Skin: no symptoms reported Psychiatric/Neurological: No Symptoms Reported Reviewed Test Results Reviewed Test Results Lab Laboratory Tests Test 06/08/18 14:13 06/08/18 14:30 06/08/18 18:41 06/08/18 20:48 Range/Units Urine Color YELLOW Urine Clarity SLIGHTLY CLOUDY Urine pH 6.5 5-9 Urine Specific [place] 1.015 L 1.016-1.022 Urine Protein 2+ H NEGATIVE Urine Glucose (UA) NEGATIVE NEGATIVE Urine Ketones NEGATIVE NEGATIVE Urine Nitrite NEGATIVE NEGATIVE Urine Bilirubin NEGATIVE NEGATIVE Urine Urobilinogen NORMAL NORMAL MG/DL Urine Leukocyte Esterase 3+ H NEGATIVE Urine RBC (Auto) 4+ H NEGATIVE Urine RBC 5-10 H /HPF Urine WBC 10-25 H /HPF Urine Squamous Epithelial Cells NONE /HPF Urine Crystals NONE /LPF Urine Bacteria FEW H /HPF Urine Casts NONE /LPF Urine Mucus NEGATIVE /LPF Urine Culture Indicated YES White Blood Count 18.5 H 4.3-11.0 10^3/uL Red Blood Count 4.07 L 4.35-5.85 10^6/uL Hemoglobin 12.1 L 13.3-17.7 G/DL Hematocrit 38 L 40-54 % Mean Corpuscular Volume 92 80-99 FL Mean Corpuscular Hemoglobin 30 25-34 PG Mean Corpuscular Hemoglobin Concent 32 32-36 G/DL Red Cell Distribution Width 16.0 H 10.0-14.5 % Platelet Count 352 130-400 10^3/uL Mean Platelet Volume 9.9 7.4-10.4 FL Neutrophils (%) (Auto) 80 H 42-75 % Lymphocytes (%) (Auto) 10 L 12-44 % Monocytes (%) (Auto) 10 0-12 % Eosinophils (%) (Auto) 0 0-10 % Basophils (%) (Auto) 0 0-10 % Neutrophils # (Auto) 14.9 H 1.8-7.8 X 10^3 Lymphocytes # (Auto) 1.8 1.0-4.0 X 10^3 Monocytes # (Auto) 1.8 H 0.0-1.0 X 10^3 Eosinophils # (Auto) 0.0 0.0-0.3 10^3/uL Basophils # (Auto) 0.0 0.0-0.1 10^3/uL Neutrophils % (Manual) 83 % Lymphocytes % (Manual) 10 % Monocytes % (Manual) 7 % Eosinophils % (Manual) 0 % Basophils % (Manual) 0 % Band Neutrophils 0 % Blood Morphology Comment NORMAL Sodium Level 132 L 135-145 MMOL/L Potassium Level 5.0 3.6-5.0 MMOL/L Chloride Level 96 L 98-107 MMOL/L Carbon Dioxide Level 21 21-32 MMOL/L Anion Gap 15 H 5-14 MMOL/L Blood Urea Nitrogen 17 7-18 MG/DL Creatinine 1.40 H 0.60-1.30 MG/DL Estimat Glomerular Filtration Rate 49 BUN/Creatinine Ratio 12 Glucose Level 102 70-105 MG/DL Lactic Acid Level 1.10 0.50-2.00 MMOL/L Calcium Level 10.0 8.5-10.1 MG/DL Corrected Calcium 10.4 H 8.5-10.1 MG/DL Total Bilirubin 0.4 0.1-1.0 MG/DL Aspartate Amino Transf (AST/SGOT) 33 5-34 U/L Alanine Aminotransferase (ALT/SGPT) 23 0-55 U/L Alkaline Phosphatase 79 40-136 U/L Total Protein 9.0 H 6.4-8.2 GM/DL Albumin 3.5 3.2-4.5 GM/DL Lipase 29 8-78 U/L Glucometer 97 115 H 70-110 MG/DL Test 06/09/18 03:35 06/09/18 06:01 06/09/18 11:06 Range/Units White Blood Count 17.7 H 4.3-11.0 10^3/uL Red Blood Count 3.81 L 4.35-5.85 10^6/uL Hemoglobin 11.4 L 13.3-17.7 G/DL Hematocrit 35 L 40-54 % Mean Corpuscular Volume 93 80-99 FL Mean Corpuscular Hemoglobin 30 25-34 PG Mean Corpuscular Hemoglobin Concent 32 32-36 G/DL Red Cell Distribution Width 15.6 H 10.0-14.5 % Platelet Count 283 130-400 10^3/uL Mean Platelet Volume 10.0 7.4-10.4 FL Neutrophils (%) (Auto) 81 H 42-75 % Lymphocytes (%) (Auto) 7 L 12-44 % Monocytes (%) (Auto) 12 0-12 % Eosinophils (%) (Auto) 0 0-10 % Basophils (%) (Auto) 0 0-10 % Neutrophils # (Auto) 14.3 H 1.8-7.8 X 10^3 Lymphocytes # (Auto) 1.2 1.0-4.0 X 10^3 Monocytes # (Auto) 2.1 H 0.0-1.0 X 10^3 Eosinophils # (Auto) 0.0 0.0-0.3 10^3/uL Basophils # (Auto) 0.0 0.0-0.1 10^3/uL Sodium Level 132 L 135-145 MMOL/L Potassium Level 3.9 3.6-5.0 MMOL/L Chloride Level 99 98-107 MMOL/L Carbon Dioxide Level 20 L 21-32 MMOL/L Anion Gap 13 5-14 MMOL/L Blood Urea Nitrogen 14 7-18 MG/DL Creatinine 1.19 0.60-1.30 MG/DL Estimat Glomerular Filtration Rate 59 BUN/Creatinine Ratio 12 Glucose Level 101 70-105 MG/DL Calcium Level 9.4 8.5-10.1 MG/DL Glucometer 97 98 70-110 MG/DL Radiology CT abd/pelvis 06/08- IMPRESSION: 1. There is a high-grade obstruction of the left collecting system due to two large calculi within the proximal left ureter. There is also a newly developed 1.4 x 2.2 cm bladder calculus and there may be early staghorn calculus formation in the left kidney. 2. There is no acute abnormality of the abdomen or pelvis noted otherwise. Physical Exam-([facility]) Physical Exam Vital Signs VS - Last 72 Hours, by Label 06/08/18 06/08/18 06/08/18 06/08/18 14:22 17:28 17:39 17:48 Temp 99.4 99.9 Pulse 90 91 81 Resp 20 20 20 B/P (MAP) 173/92 (119) 142/82 (102) 135/82 (99) Pulse Ox 95 97 95 O2 Delivery Room Air Nasal Cannula Nasal Cannula Nasal Cannula O2 Flow Rate 3.00 2.00 2.00 06/08/18 06/08/18 06/08/18 06/08/18 19:30 20:00 20:50 21:03 Temp 100.2 100.1 Pulse 90 Resp 20 B/P (MAP) 146/69 (94) Pulse Ox 97 97 O2 Delivery Nasal Cannula Nasal Cannula Nasal Cannula O2 Flow Rate 3.00 3.00 3.00 06/09/18 06/09/18 06/09/18 06/09/18 00:00 04:00 08:00 08:13 Temp 98.7 98.3 98.0 Pulse 90 90 90 Resp 16 16 32 B/P (MAP) 159/80 (106) 168/74 (105) 149/79 (102) Pulse Ox 97 98 99 97 O2 Delivery Nasal Cannula Nasal Cannula Nasal Cannula Nasal Cannula O2 Flow Rate 3.00 3.00 3.00 3.00 06/09/18 06/09/18 12:00 16:01 Temp 97.3 99.1 Pulse 90 91 Resp 20 20 B/P (MAP) 157/78 (104) 134/62 (86) Pulse Ox 99 98 O2 Delivery Nasal Cannula Nasal Cannula O2 Flow Rate 3.00 3.00 Capillary Refill : Less Than 3 Seconds General Appearance: no apparent distress Respiratory: lungs clear, normal breath sounds Cardiovascular: regular rate, rhythm Gastrointestinal: normal bowel sounds, soft Extremities: no pedal edema Neurologic/Psychiatric: alert, normal mood/affect Skin: warm/dry, other (cutaneous horn on left forearm) Assessment/Plan Assessment/Plan Admission Status: Inpatient Order (span 2 midnights) Reason for Inpatient Admission: Patient with multiple large kidney stones that will require procedure as well as underlying infection requiring IV antibiotics. (1) Left ureteral calculus Status: Acute Assessment & Plan: Obstructive and significant in size. Recommended transfer from ER for definitive treatment as local Urology not currently available, patient and spouse declined. Anticipate Urology to see tomorrow. Fentanyl prn pain. (2) Pyelonephritis Status: Acute Assessment & Plan: Possible given stranding and UA consistent with infection, but CT findings may also be explained by the obstruction. On ceftriaxone- has had multiple prior UTI with proteus sensitive to ceftriaxone, and more remotely staph aureus and E coli with no resistance. (3) Diabetes mellitus, type 2 Status: Chronic Assessment & Plan: Unclear diagnosis- on admission in January had high blood sugar without previous diagnosis of DMII, A1c at that time was 6.2. Required long-acting insulin at that time, and apparently has continued outpatient based on refills. Diabetic diet, sliding scale insulin. 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 On ceftriaxone for suspected UTI/pyelonephritis. Consider peripheral smear if leukocytosis persists. Qualifiers: Qualified Codes: D72.828 - Other elevated white blood cell count (5) Hyponatremia Status: Acute Assessment & Plan: Suspect intravascular hypovolemia. Given IVF overnight and will resume furosemide. Check urine Na and osmolality for further eval. (6) Acute renal insufficiency Status: Acute Assessment & Plan: Last admission in January creatinine remained mildly elevated throughout, however was normal prior and is decreased today after IVF, so appears more consistent with acute than chronic CKD. Monitor. (7) Congestive heart failure Status: Chronic Assessment & Plan: [facility] has ICD in place and history of VT. No evidence of acute decompensation at this time, resume home beta arpita, amiodarone, mexilitine and furosemide. Qualifiers: (8) Paroxysmal atrial fibrillation Status: Chronic Assessment & Plan: Intolerant of anticoagulation per 's report due to bleeding. Continue digoxin and beta arpita. (9) COPD (chronic obstructive pulmonary disease) Status: Chronic Assessment & Plan: No evidence of exacerbation, continue albuterol prn. (10) DVT prophylaxis Status: Acute Assessment & Plan: Enoxaparin Clinical Quality Measures DVT/VTE Risk/Contraindication: Risk Factor Score Per Nursin RFS Level Per Nursing on Admit: 4+=Very High Copy Copies To 1: ELLIOT GONZALEZ MD, BETHANY N MD Jun 09, 2018 12:01
[2018-06-09] MEDS ORDERED: RT-ALBUTEROL SULF 2.5 MG/3 ML PRE-MIX VIAL INH PRN (12:15)
--- NOTE | 2018-06-09 12:51 | Diagnostic Imaging Report ---
Indication: Left ureteral stone. Time of exam: 1254 PM Correlation is made with prior exam one day earlier. Calcific densities overlying the upper, mid and lower poles of the left kidney again noted consistent with staghorn calculi. This appears similar to prior. No definite ureteral calculi are seen with exception of a possible calcific density lying immediately inferior to the left transverse process of L5, corresponding with the ureteral calculi noted on CT one day earlier. There is also calcific density overlying the left sacrum which may represent a ureteral calculus. Rounded calcific densities more inferiorly in the pelvis are consistent with phleboliths. The bowel gas pattern is unremarkable. 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 There also appears to be mid and distal left ureteric calculi present. Dictated by: Dictated on workstation # [id number]
[2018-06-09] MEDS: MEXILETINE 150 MG (MEXITIL) CAPSULE PO SCH ×2 (13:35→20:56)
[2018-06-09] MEDS: ACETAMINOPHEN 500 MG TAB (TYLENOL) PO PRN ×2 (13:35→23:58)
[2018-06-09] MEDS: FUROSEMIDE 40 MG (LASIX) TAB PO SCH (15:27)
[2018-06-09] MEDS: cefTRIAXone 1 GM/NS 50 ML IVPB IV SCH ×2 (15:28)
[2018-06-09 16:01] VITALS: BP 134/62
[2018-06-09 19:30] VITALS: BP 137/72
[2018-06-09] MEDS ORDERED: AMIODARONE 200 MG (CORDARONE) TAB PO SCH (20:00)
[2018-06-09] MEDS: inSUlin ASPART (NovoLOG) 1 UNIT/0.01 ML (CHARGE PER UNIT) SC SCH (20:52)
[2018-06-09] MEDS: meTOprolol TARTRATE 25 MG (LOPRESSOR) TABLET PO SCH (20:56)
[2018-06-09] MEDS: amLODIPine 5 MG (NORVASC) TAB PO SCH (20:56)
[2018-06-10] VITALS: BP 143/74
--- NOTE | 2018-06-10 00:14 | CONSULTATION REPORT ---
DATE OF SERVICE: 06/09/2018 ATTENDING PHYSICIAN: Yanely Donohue M.D. -- Dr. Micheal Hannah. SUMMARY: The patient is known to me with previous history of urolithiasis and stone surgeries, presented to [facility] yesterday complaining of generalized abdominal pain. No other significant symptoms. No fever. He was treated recently for urinary tract infection, on Levaquin and finished those on 05/30/2018. CT scan of the abdomen and pelvis without contrast revealed a large staghorn type stone in the left kidney and two stones in the proximal left ureter, 1 cm and 2 cm in size, causing high-grade obstruction and 2.2 x 1.4 cm bladder stone. I was contacted by the emergency room and was out of town, so I recommended according to the situation of the patient and presence or absence of sepsis to transfer the patient to [facility] with local urologist there, may need stenting or definite procedure. Patient refused transfer and wanted me to take care of him since I have took care of him before. So he was admitted to the hospital and started on IV fluid and Rocephin, kept n.p.o. I called this morning and he was much better. No fever. Not septic. Blood pressure and vital signs stable. So we give him some diet and continue treating the infection to prepare him for possible procedure. We also held his aspirin or any possible surgical intervention. A review of symptoms otherwise negative. ALLERGIES: THE PATIENT IS ALLERGIC TO PENICILLIN AND CODEINE. HOME MEDICINES: Albuterol, amiodarone, amlodipine, digoxin, magnesium, Lasix, insulin, metoprolol tartrate, mexiletine hydrochloride and potassium chloride. Doses and frequency per chart, which I reviewed. SOCIAL HISTORY: Quit smoking in 1992. No alcohol, no drugs. There is no seasonal allergies. FAMILY HISTORY: Coronary artery disease and cervical cancer. PAST MEDICAL HISTORY: Surgery [place] had a CABG, coronary stent, defibrillator, eye surgery, joint replacement and stone surgeries. MEDICAL ILLNESSES: Admits to asthma and history of pneumonia, chronic bronchitis as well as COPD and sleep apnea. He is not on CPAP, some dementia, neuropathy and has no children. Admits to cataracts and glaucoma and hard of hearing, some also history of depression. PHYSICAL EXAMINATION: VITAL SIGNS: Per chart. GENERAL: Well-nourished, well developed, in no acute distress at the time of examination. HEENT: Normocephalic. ENT unremarkable. NECK: Supple. No bruits. CHEST: Clear, nontender. HEART: Regular rate and rhythm, no murmur. ABDOMEN: Soft, no CVA tenderness. EXTREMITIES: Lower extremity, no edema or cyanosis. NEUROLOGIC: Grossly intact. Oriented x3. SKIN: Warm and dry. EXTERNAL GENITALIA: Adequate male configuration. LABORATORY DATA: Labs were reviewed. IMPRESSION: 1. Left proximal ureteral stone with obstruction. 2. Left renal stone. 3. Bladder stone. 4. History of urolithiasis. 5. Multiple medical problems as per history. PLAN: I discussed in detail and intensively the possibility of treatment. He is a very complex case medically and neurologically. He has no stones in the ureter. His option will be to attempt to put a stent in him to relieve the obstruction and/or push the stones back into the kidney and then consider ESWL or a percutaneous nephrolithotomy somewhere else or the bladder stone, we consider doing later on some cystolithotripsy on him. I told him we do not have any flexible ureteroscopy here and no laser, which will be stronger then the LithoClast. They want me to try and see if we can do something. They understand the risks and the possibility of failure and need to transfer to either [facility] or referred to later on. We will proceed with continuing treatment of antibiotics until Sunday. We will take him to surgery and attempt manipulation of the stone and for insertion of stent. Job ID: [id number] DocumentID: [id number] Dictated Date: 06/09/2018 22:12:11 Visual Artist Date: 06/10/2018 00:14:02 Dictated By: TREVIN RIZZO MD
[2018-06-10] MEDS: NS IV 1000 ML 1,000 ML IV SCH ×2 (02:30→11:49)
[2018-06-10 04:00] VITALS: BP 143/65
[2018-06-10] MEDS: inSUlin ASPART (NovoLOG) 1 UNIT/0.01 ML (CHARGE PER UNIT) SC SCH ×4 (05:31→21:04)
[2018-06-10] MEDS: KCL 8 MEQ (MICRO K) TABLET PO SCH (05:53)
[2018-06-10] MEDS: PANTOPRAZOLE 40 MG (PROTONIX) TAB PO SCH (05:53)
[2018-06-10 05:55] LABS: BASOPHILS % (AUTO) 0 % (0-10); EOSINOPHILS % (AUTO) 0 % (0-10); HEMATOCRIT 33 % (40-54); HEMOGLOBIN 10.6 G/DL (13.3-17.7); LYMPHOCYTES # (AUTO) 1.4 X 10^3 (1.0-4.0); LYMPHOCYTES % (AUTO) 8 % (12-44); MEAN CORPUSCULAR HGB CONC 32 G/DL (32-36); MEAN CORPUSCULAR VOLUME 95 FL (80-99); MEAN PLATELET VOLUME 9.6 FL (7.4-10.4); MONOCYTES # (AUTO) 1.9 X 10^3 (0.0-1.0); MONOCYTES % (AUTO) 11 % (0-12); NEUTROPHILS # (AUTO) 13.8 X 10^3 (1.8-7.8); NEUTROPHILS % (AUTO) 81 % (42-75); PLATELET COUNT 268 10^3/uL (130-400); RED BLOOD COUNT 3.48 10^6/uL (4.35-5.85); RED CELL DISTRIBUTION WIDTH 16.1 % (10.0-14.5); WHITE BLOOD COUNT 17.2 10^3/uL (4.3-11.0)
[2018-06-10 05:56] LABS: MEAN CORPUSCULAR HEMOGLOBIN 30 PG (25-34)
[2018-06-10 06:09] LABS: BUN/CREATININE RATIO 13; CALCIUM 9.1 MG/DL (8.5-10.1); CARBON DIOXIDE 22 MMOL/L (21-32); CHLORIDE 104 MMOL/L (98-107); CREATININE SERUM 1.12 MG/DL (0.60-1.30); GFR ESTIMATED > 60; GLUCOSE 103 MG/DL (70-105); MAGNESIUM 1.6 MG/DL (1.8-2.4); POTASSIUM 4.1 MMOL/L (3.6-5.0); SODIUM 137 MMOL/L (135-145)
--- NOTE | 2018-06-10 06:31 | Progress Note-Urology ---
Progress Note-Urology Progress Notes/Assess & Plan Progress/Assessment & Plan CONTINUES WELL. OR TOMORROW, FULLY RE EXPLAINED TO PATIENT AND Final Diagnosis LT URETERAL, LT RENAL, AND BLADDER STONES TREVIN RIZZO MD Jun 10, 2018 6:31 am
[2018-06-10 08:00] VITALS: BP 130/67
--- NOTE | 2018-06-10 08:39 | Diagnostic Imaging Report ---
INDICATION: Urolithiasis. FINDINGS: Multiple stones project over the left kidney casting the collecting system presumed staghorn calculus disease. The largest stone in an upper pole calyx measures long axis of 3.5 cm. The right kidney showed no obvious stone, however, overlying stool does limit sensitivity. Pelvic calcification showed lucent centers and are unchanged from prior, believed phleboliths. There are atherosclerotic vascular calcifications. IMPRESSION: Left renal stone burden and likely staghorn calculus disease not obviously changed. Dictated by: Dictated on workstation # [id number]
[2018-06-10] MEDS ORDERED: MAGNESIUM 1 GM/100 ML IVPB 100 ML IV ONE (09:15)
[2018-06-10] MEDS: FUROSEMIDE 40 MG (LASIX) TAB PO SCH ×2 (10:11→16:18)
[2018-06-10] MEDS: MEXILETINE 150 MG (MEXITIL) CAPSULE PO SCH ×3 (10:11→21:21)
[2018-06-10] MEDS: meTOprolol TARTRATE 25 MG (LOPRESSOR) TABLET PO SCH ×2 (10:11→21:21)
[2018-06-10] MEDS: AMIODARONE 200 MG (CORDARONE) TAB PO SCH (10:11)
[2018-06-10] MEDS: DOCUSATE SODIUM 100 MG (COLACE) CAP PO SCH (10:11)
[2018-06-10] MEDS: DIGOXIN 0.125 MG (LANOXIN) TAB PO SCH (10:11)
[2018-06-10] MEDS: ENOXAPARIN 40 MG/0.4 ML (LOVENOX) SYR SC SCH (10:12)
[2018-06-10 12:00] VITALS: BP 144/68
--- NOTE | 2018-06-10 12:29 | Progress Note (SOAP) ---
Subjective Subjective/Events-last exam Febrile to 100.8 last 24 hours. Leukocytosis stable. Tachycardic. Review of Systems Date Seen by Provider: Jun 10, 2018 Time Seen by Provider: 10:10 Focused Exam Lactate Level 06/08/18 14:30: Lactic Acid Level 1.10 Objective Exam Last Set of Vital Signs Vital Signs Date Time Temp Pulse Resp B/P (MAP) Pulse Ox O2 Delivery O2 Flow Rate FiO2 06/10/18 09:57 Nasal Cannula 3.00 06/10/18 08:00 97.2 92 16 130/67 (88) 97 Capillary Refill : Less Than 3 SecondsLess Than 3 Seconds I&O Intake and Output 06/10/18 00:00 Intake Total 2361 ml Output Total 1260 ml Balance 1101 ml Intake Oral 1360 ml IV Total 1001 ml Output Urine Total 1260 ml # Voids 1 # Bowel Movements 1 General: Alert, No Acute Distress Lungs: Clear to Auscultation, Normal Air Movement Heart: Regular Rate, No Murmurs Psych/Mental Status: Mood NL Results/Procedures Lab Laboratory Tests 06/09/18 16:01: Glucometer 143H 06/09/18 18:30: 06/09/18 20:45: Glucometer 118H 06/10/18 05:23: Glucometer 112H 06/10/18 05:35: White Blood Count 17.2H, Red Blood Count 3.48L, Hemoglobin 10.6L, Hematocrit 33L , Mean Corpuscular Volume 95, Mean Corpuscular Hemoglobin 30, Mean Corpuscular Hemoglobin Concent 32, Red Cell Distribution Width 16.1H, Platelet Count 268, Mean Platelet Volume 9.6, Neutrophils (%) (Auto) 81H, Lymphocytes (%) (Auto) 8L , Monocytes (%) (Auto) 11, Eosinophils (%) (Auto) 0, Basophils (%) (Auto) 0, Neutrophils # (Auto) 13.8H, Lymphocytes # (Auto) 1.4, Monocytes # (Auto) 1.9H, Eosinophils # (Auto) 0.0, Basophils # (Auto) 0.0, Sodium Level 137, Potassium Level 4.1, Chloride Level 104, Carbon Dioxide Level 22, Anion Gap 11, Blood Urea Nitrogen 14, Creatinine 1.12, Estimat Glomerular Filtration Rate > 60, BUN/ Creatinine Ratio 13, Glucose Level 103, Calcium Level 9.1, Magnesium Level 1.6L , Thyroid Stimulating Hormone (TSH) 1.20 06/10/18 11:01: Glucometer 160H Microbiology 06/08/18 Blood Culture - Preliminary, Resulted No growth 06/08/18 Urine Culture - Final, Complete Proteus mirabilis Radiology CT abd/pelvis 06/08- IMPRESSION: 1. There is a high-grade obstruction of the left collecting system due to two large calculi within the proximal left ureter. There is also a newly developed 1.4 x 2.2 cm bladder calculus and there may be early staghorn calculus formation in the left kidney. 2. There is no acute abnormality of the abdomen or pelvis noted otherwise. Assessment/Plan Assessment/Plan (1) Left ureteral calculus Status: Acute Assessment & Plan: Obstructive and significant in size. Recommended transfer from ER for definitive treatment as local Urology not currently available, patient and spouse declined. Anticipate Urology to see tomorrow. Fentanyl prn pain. Plan for OR tomorrow per Urology, continue supportive care for now. (2) Pyelonephritis Status: Acute Assessment & Plan: Possible given stranding and UA consistent with infection, but CT findings may also be explained by the obstruction. On ceftriaxone- has had multiple prior UTI with proteus sensitive to ceftriaxone, and more remotely staph aureus and E coli with no resistance. 06/10- continue ceftriaxone (3) Diabetes mellitus, type 2 Status: Chronic Assessment & Plan: Unclear diagnosis- on admission in January had high blood sugar without previous diagnosis of DMII, A1c at that time was 6.2. Required long-acting insulin at that time, and apparently has continued outpatient based on refills. Diabetic diet, sliding scale insulin. 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 On ceftriaxone for suspected UTI/pyelonephritis. Consider peripheral smear if leukocytosis persists. 06/10- stable, will reeval after procedure Qualifiers: Qualified Codes: D72.828 - Other elevated white blood cell count (5) Hyponatremia Status: Resolved Assessment & Plan: Suspect intravascular hypovolemia. Given IVF overnight and will resume furosemide. Check urine Na and osmolality for further eval. 06/10- resolved, labs pending (6) Acute renal insufficiency Status: Resolved Assessment & Plan: Last admission in January creatinine remained mildly elevated throughout, however was normal prior and is decreased today after IVF, so appears more consistent with acute than chronic CKD. Monitor. 06/10- resolved (7) Congestive heart failure Status: Chronic Assessment & Plan: Followed by [facility], has ICD in place and history of VT. No evidence of acute decompensation at this time, resume home beta arpita, amiodarone, mexilitine and furosemide. Qualifiers: (8) Paroxysmal atrial fibrillation Status: Chronic Assessment & Plan: Intolerant of anticoagulation per 's report due to bleeding. Continue digoxin and beta arpita. (9) COPD (chronic obstructive pulmonary disease) Status: Chronic Assessment & Plan: No evidence of exacerbation, continue albuterol prn. (10) DVT prophylaxis Status: Acute Assessment & Plan: Enoxaparin Clinical Quality Measures DVT/VTE Risk/Contraindication: Risk Factor Score Per Nursin RFS Level Per Nursing on Admit: 4+=Very High KENYATTA TUTTLE MD Jun 10, 2018 12:29 pm
[2018-06-10] MEDS ORDERED: MILK OF MAGNESIA 400 MG/5 ML 30 ML UDC PO NR (14:00)
[2018-06-10] MEDS ORDERED: MILK OF MAGNESIA 400 MG/5 ML 30 ML UDC ONE (14:08)
[2018-06-10 15:56] VITALS: BP 157/74
[2018-06-10] MEDS: cefTRIAXone 1 GM/NS 50 ML IVPB IV SCH ×2 (16:18)
--- NOTE | 2018-06-10 16:52 | Consultation-Cardiology ---
HPI-Cardiology Cardiology Consultation Date of Consultation 06/10/18 Date of Admission Time Seen by Provider: 16:46 Indication: Coronary artery disease HPI 78 years old gentleman with extensive cardiac history which will be discussed below. Admitted with lower abdominal pain. Had urinary tract infection receiving antibiotic and noted to have multiple stones. He was scheduled for cystoscopy and/or called for preoperative cardiac evaluation. Patient follows with Dr. Mendez in [place]. Denied any chest pain, no palpitation, had chronic pedal edema. Denied any claudication. 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 Does not need any further testing at this point. He is intolerant to oral anticoagulation due to recurrent nosebleed Home Medications & Allergies Allergies: Coded Allergies: Penicillins (Verified Allergy, Severe, HIVES, SOB, 01/04/18) codeine (Verified Allergy, Severe, SOB, HIVES, 01/04/18) Home Medication List Reviewed: Yes [id number] Hx Patient Social History Marital Status: Employed/Student: retired Alcohol Use: Denies Use Recreational Drug Use: No Smoking Status: Former Smoker Former smoker/When Quit: Aug 02, 1987 Type Used: Cigarettes 2nd Hand Smoke Exposure: No Recent Foreign Travel: No Recent Infectious Disease Expo: No Recent Hopitalizations: No Physical Abuse Screen: No Sexual Abuse: No Immunizations Up To Date Tetanus Booster (TDap): More than 5yrs Date of Pneumonia Vaccine: Apr 29, 2014 Date of Influenza Vaccine: May 08, 2018 Past Medical History As described below Family Medical History Significant Family History: Heart Disease Family History: Cardiovascular disease 19 MOTHER G8 BROTHER G8 SISTER Cervical cancer 19 MOTHER Review of Systems Constitutional: see HPI, malaise EENTM: see HPI, no symptoms reported Respiratory: see HPI; No cough, No dyspnea on exertion, No hemoptysis, No orthopnea, No phlegm, No short of breath, No stridor, No wheezing, No other Cardiovascular: see HPI; No chest pain; edema; No Hx of Intervention, No palpitations, No syncope, No vascular heart diseas, No other Gastrointestinal: see HPI, abdominal pain Genitourinary: see HPI, dysuria Musculoskeletal: see HPI, joint pain Skin: no symptoms reported, see HPI Psychiatric/Neurological: No Symptoms Reported, See HPI Reviewed Test Results Reviewed Test Results Lab Laboratory Tests Test 06/09/18 18:30 06/09/18 20:45 06/10/18 05:23 06/10/18 05:35 Range/Units Glucometer 118 H 112 H 70-110 MG/DL White Blood Count 17.2 H 4.3-11.0 10^3/uL Red Blood Count 3.48 L 4.35-5.85 10^6/uL Hemoglobin 10.6 L 13.3-17.7 G/DL Hematocrit 33 L 40-54 % Mean Corpuscular Volume 95 80-99 FL Mean Corpuscular Hemoglobin 30 25-34 PG Mean Corpuscular Hemoglobin Concent 32 32-36 G/DL Red Cell Distribution Width 16.1 H 10.0-14.5 % Platelet Count 268 130-400 10^3/uL Mean Platelet Volume 9.6 7.4-10.4 FL Neutrophils (%) (Auto) 81 H 42-75 % Lymphocytes (%) (Auto) 8 L 12-44 % Monocytes (%) (Auto) 11 0-12 % Eosinophils (%) (Auto) 0 0-10 % Basophils (%) (Auto) 0 0-10 % Neutrophils # (Auto) 13.8 H 1.8-7.8 X 10^3 Lymphocytes # (Auto) 1.4 1.0-4.0 X 10^3 Monocytes # (Auto) 1.9 H 0.0-1.0 X 10^3 Eosinophils # (Auto) 0.0 0.0-0.3 10^3/uL Basophils # (Auto) 0.0 0.0-0.1 10^3/uL Sodium Level 137 135-145 MMOL/L Potassium Level 4.1 3.6-5.0 MMOL/L Chloride Level 104 98-107 MMOL/L Carbon Dioxide Level 22 21-32 MMOL/L Anion Gap 11 5-14 MMOL/L Blood Urea Nitrogen 14 7-18 MG/DL Creatinine 1.12 0.60-1.30 MG/DL Estimat Glomerular Filtration Rate > 60 BUN/Creatinine Ratio 13 Glucose Level 103 70-105 MG/DL Calcium Level 9.1 8.5-10.1 MG/DL Magnesium Level 1.6 L 1.8-2.4 MG/DL Thyroid Stimulating Hormone (TSH) 1.20 0.35-4.94 UIU/ML Test 06/10/18 11:01 06/10/18 16:18 Range/Units Glucometer 160 H 102 70-110 MG/DL Radiology CT abd/pelvis 06/08- IMPRESSION: 1. There is a high-grade obstruction of the left collecting system due to two large calculi within the proximal left ureter. There is also a newly developed 1.4 x 2.2 cm bladder calculus and there may be early staghorn calculus formation in the left kidney. 2. There is no acute abnormality of the abdomen or pelvis noted otherwise. Physical Exam Vital Signs Vital Signs - First Documented 06/08/18 06/08/18 14:22 17:28 Temp 99.4 Pulse 90 Resp 20 B/P (MAP) 173/92 (119) Pulse Ox 95 O2 Delivery Room Air O2 Flow Rate 3.00 Capillary Refill : Less Than 3 SecondsLess Than 3 Seconds Height, Weight, BMI Height: 5'5.00" Weight: 188lbs. 4.0oz. 85.014542bl; 31.3 BMI Method:Stated General Appearance: No Apparent Distress, WD/WN Eyes: Bilateral Eye Normal Inspection, Bilateral Eye PERRL, Bilateral Eye EOMI HEENT: PERRL/EOMI, TMs Normal, Normal ENT Inspection, Pharynx Normal Neck: Full Range of Motion, Normal Inspection, Non Tender, Supple, Carotid Bruit Respiratory: Chest Non Tender, Lungs Clear, Normal Breath Sounds, No Accessory Muscle Use, No Respiratory Distress Cardiovascular: No Edema, No Gallop, No JVD, No Murmur, Normal Peripheral Pulses, Systolic Murmur Gastrointestinal: Normal Bowel Sounds, No Organomegaly, No Pulsatile Mass, Non Tender, Soft Back: Normal Inspection, No CVA Tenderness, No Vertebral Tenderness Extremity: Normal Capillary Refill, Normal Inspection, Normal Range of Motion, Non Tender, No Calf Tenderness, Pedal Edema Neurologic/Psychiatric: Alert, Oriented x3, No Motor/Sensory Deficits, Normal Mood/Affect Skin: Normal Color, Warm/Dry Lymphatic: No Adenopathy A/P-Cardiology Admission Diagnosis Urinary tract infection Kidney stones Coronary artery disease Ventricular fibrillation Assessment/Plan Urinary tract infection receiving antibiotics. Managed by primary care team Kidney stones, scheduled for cystoscopy. Hypomagnesemia, replace with IV magnesium and monitor Coronary artery disease, history of CABG done in the remote past. Patient had a stent done in December 2001 using MultiLink 2.518 mm to the proximal right coronary artery, 2017 had a Cypher stent 3.530 mm to the proximal and mid circumflex artery. 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 I'll try to obtain copy of his record. No recent cardiac workup History of congestive heart failure, reported ejection fraction 54 percent. MPI in 2013. Paroxysmal atrial fibrillation maintained on amiodarone, intolerant to oral anticoagulation secondary to recurrent nosebleed Patient has been maintained on mexiletine. Probably due to ventricular fibrillation and history of shock from his defibrillator, known to have [facility] ICD implanted by Dr. vidales in [place]. COPD managed by primary care physician Chronic pedal edema. Diabetes mellitus, followed and managed by primary care physician Preoperative cardiac evaluation, patient is considered at intermediate to high risk for perioperative cardiovascular complication due to his extensive cardiovascular history. Did not have any recent cardiac workup done, reported that he has seen his primary clothing trades workers in [place] last week. I will try to obtain copy of the record. Decision regarding the surgery, risks versus benefits is deferred to the surgeon Clinical Quality Measures DVT/VTE Risk/Contraindication: Risk Factor Score Per Nursin RFS Level Per Nursing on Admit: 4+=Very High JOHN ALFARO MD Jun 10, 2018 16:52
[2018-06-10] MEDS ORDERED: MAGNESIUM 1 GM/100 ML IVPB 100 ML IV SCH (17:00)
[2018-06-10] MEDS: PHENAZOPYRIDINE 100 MG (PYRIDIUM) TABLET PO SCH (18:33)
[2018-06-10 20:07] VITALS: BP 140/68
[2018-06-10] MEDS: amLODIPine 5 MG (NORVASC) TAB PO SCH (21:22)
[2018-06-10] MEDS: ACETAMINOPHEN 500 MG TAB (TYLENOL) PO PRN (22:09)
[2018-06-11] VITALS: BP 132/63
[2018-06-11] MEDS: NS IV 1000 ML 1,000 ML IV SCH ×2 (01:51→19:10)
[2018-06-11 04:00] VITALS: BP 130/69
[2018-06-11 05:39] LABS: BASOPHILS % (AUTO) 0 % (0-10); EOSINOPHILS % (AUTO) 0 % (0-10); HEMATOCRIT 33 % (40-54); HEMOGLOBIN 10.3 G/DL (13.3-17.7); LYMPHOCYTES # (AUTO) 1.3 X 10^3 (1.0-4.0); LYMPHOCYTES % (AUTO) 7 % (12-44); MEAN CORPUSCULAR HEMOGLOBIN 30 PG (25-34); MEAN CORPUSCULAR HGB CONC 31 G/DL (32-36); MEAN CORPUSCULAR VOLUME 95 FL (80-99); MEAN PLATELET VOLUME 9.7 FL (7.4-10.4); MONOCYTES # (AUTO) 1.7 X 10^3 (0.0-1.0); MONOCYTES % (AUTO) 10 % (0-12); NEUTROPHILS # (AUTO) 14.4 X 10^3 (1.8-7.8); NEUTROPHILS % (AUTO) 83 % (42-75); PLATELET COUNT 240 10^3/uL (130-400); RED BLOOD COUNT 3.48 10^6/uL (4.35-5.85); RED CELL DISTRIBUTION WIDTH 15.9 % (10.0-14.5); WHITE BLOOD COUNT 17.5 10^3/uL (4.3-11.0)
[2018-06-11 06:05] LABS: ALANINE AMINOTRANSFERASE 17 U/L (0-55); ALBUMIN 2.9 GM/DL (3.2-4.5); ALKALINE PHOSPHATASE 70 U/L (40-136); BILIRUBIN,TOTAL 0.4 MG/DL (0.1-1.0); BUN/CREATININE RATIO 10; CALCIUM 9.2 MG/DL (8.5-10.1); CARBON DIOXIDE 26 MMOL/L (21-32); CHLORIDE 103 MMOL/L (98-107); CREATININE SERUM 1.05 MG/DL (0.60-1.30); GFR ESTIMATED > 60; GLUCOSE 99 MG/DL (70-105); MAGNESIUM 1.8 MG/DL (1.8-2.4); SODIUM 138 MMOL/L (135-145); TOTAL PROTEIN 7.7 GM/DL (6.4-8.2)
[2018-06-11] MEDS: inSUlin ASPART (NovoLOG) 1 UNIT/0.01 ML (CHARGE PER UNIT) SC SCH ×3 (06:24→17:43)
[2018-06-11] MEDS: KCL 8 MEQ (MICRO K) TABLET PO SCH (06:25)
[2018-06-11] MEDS: PANTOPRAZOLE 40 MG (PROTONIX) TAB PO SCH (06:25)
--- NOTE | 2018-06-11 07:08 | Progress Note-Pre Operative ---
Pre-Operative Progress Note H&P Reviewed The H&P was reviewed, patient examined and no changes noted. Date Seen by Provider: Jun 11, 2018 Time Seen by Provider: 07:08 Date H&P Reviewed: Jun 11, 2018 Time H&P Reviewed: 07:08 Pre-Operative Diagnosis: LT URETERAL, LT RENAL, AND BLADDER STONES TREVIN RIZZO MD Jun 11, 2018 07:08
--- NOTE | 2018-06-11 07:09 | Progress Note-Post Operative ---
Post-Operative Progess Note Surgeon (s)/Campus Executive Director (s) Surgeon TREVIN RIZZO MD Campus Executive Director: NONE Pre-Operative Diagnosis LT URETERAL, LT RENAL, AND BLADDER STONES Post-Operative Diagnosis SAME Procedure & Operative Findings Date of Procedure 06/11/18 Procedure Performed/Findings LT URETEROSCOPY WITH ATTEMPTED LITHOTRIPSY, STENT, AND RETROGRADE UROGRAM Anesthesia Type GENERAL Estimated Blood Loss Estimated blood loss (mL): NONE Specimens/Packing Specimens Removed NONE Packing: NONE TREVIN RIZZO MD Jun 11, 2018 7:09 am
[2018-06-11] MEDS ORDERED: LEVOFLOXACIN 500 MG/100 ML IV 100 ML IV NR (08:15)
[2018-06-11] MEDS ORDERED: LACTATED RINGERS 1,000 ML IV PRN (08:21)
[2018-06-11] MEDS ORDERED: fentaNYL INJECTION 100 MCG/2 ML AMP ONE (08:28)
--- NOTE | 2018-06-11 08:35 | Diagnostic Imaging Report ---
INDICATION: Followup renal stones. COMPARISON: 06/10/[address] abdomen of 06/08/2018. FINDINGS: The multiple large left renal stones remain in stable position at the level of the renal hilum and lower pole of the left kidney. No new renal calculi. A large ovoid bladder calculus is stable measuring 2.5 cm. There is a partially imaged proximal femoral nail with an antetorsion blade. Nonobstructive bowel gas pattern. IMPRESSION: No appreciable change in position of left renal stones and bladder stone. Dictated by: Dictated on workstation # [id number]
[2018-06-11] MEDS ORDERED: DEXAMETHASONE 10 MG/ML (DECADRON) 1 ML VIAL ONE (09:16)
[2018-06-11] MEDS ORDERED: ONDANSETRON 4 MG/2 ML (SDV) Z0FRAN ONE (09:16)
[2018-06-11] MEDS ORDERED: proPOfol 200 MG/20 ML (DIPRIVAN) VIAL IV ONE (09:16)
[2018-06-11] MEDS ORDERED: LIDOCAINE PF 2% 5 ML (XYLOCAINE) VIAL ONE (09:16)
[2018-06-11] MEDS ORDERED: SEVOFLURANE (ULTANE) 15 ML INHAL SOLN ONE (09:16)
--- NOTE | 2018-06-11 09:35 | Progress Note-Post Operative ---
Post-Operative Progess Note Surgeon (s)/Adjunct Instructor (s) Surgeon TREVIN RIZZO MD Adjunct Instructor: NONE Pre-Operative Diagnosis LT URETERAL, LT RENAL, AND BLADDER STONES Post-Operative Diagnosis same Procedure & Operative Findings Date of Procedure 06/11/18 Procedure Performed/Findings LT URETEROSCOPY WITH ATTEMPTED LITHOTRIPSY, ATTEMPTED STENT AND RETROGRADE UROGRAM Anesthesia Type GENERAL Estimated Blood Loss Estimated blood loss (mL): NONE Specimens/Packing Specimens Removed NONE Packing: NONE TREVIN RIZZO MD Jun 11, 2018 9:35 am
[2018-06-11] MEDS ORDERED: ONDANSETRON 4 MG/2 ML (SDV) Z0FRAN IVP PRN (09:45)
--- NOTE | 2018-06-11 10:39 | Anesthesia-General Post-Op ---
General Patient Condition Mental Status/LOC: Same as Preop Cardiovascular: Satisfactory Nausea/Vomiting: Absent Respiratory: Satisfactory Pain: Controlled Complications: Absent Post Op Complications Complications None Follow Up Care/Instructions Patient Instructions None needed. Anesthesia/Patient Condition Patient Condition Patient is doing well, no complaints, stable vital signs, no apparent adverse anesthesia problems. No complications reported per nursing. YOLANDA SUH CRNA Jun 11, 2018 10:39
[2018-06-11] MEDS: DOCUSATE SODIUM 100 MG (COLACE) CAP PO SCH (11:00)
[2018-06-11] MEDS: meTOprolol TARTRATE 25 MG (LOPRESSOR) TABLET PO SCH (11:00)
[2018-06-11] MEDS: AMIODARONE 200 MG (CORDARONE) TAB PO SCH (11:00)
[2018-06-11] MEDS: DIGOXIN 0.125 MG (LANOXIN) TAB PO SCH (11:00)
[2018-06-11] MEDS: PHENAZOPYRIDINE 100 MG (PYRIDIUM) TABLET PO SCH ×3 (11:00→19:10)
[2018-06-11] MEDS: FUROSEMIDE 40 MG (LASIX) TAB PO SCH ×2 (11:00→16:30)
[2018-06-11] MEDS: MEXILETINE 150 MG (MEXITIL) CAPSULE PO SCH ×2 (11:02→12:54)
[2018-06-11] MEDS: ENOXAPARIN 40 MG/0.4 ML (LOVENOX) SYR SC SCH (11:11)
[2018-06-11 12:51] VITALS: BP 136/75
--- NOTE | 2018-06-11 13:12 | Electrophysiology Consultation ---
HPI-Cardiology Cardiology Consultation: Date of Consultation 06/11/18 Date of Admission Attending Physician Yanely Donohue MD Admitting Physician Elliot Ybarra MD Consulting Physician Gabriela JUDD MD HPI: Time Seen by a Provider: 12:45 Chief Complaint: ICD, VT history This is a 78 year old gentleman with history of CABG, PCI, VT requiring [facility] ICD. He presents with UTI, Sepsis, Renal stones, requiring urological procedure with Dr Ely. EP consultation requested by Dr Fonseca since that patient has history of VT/VF and is on amiodarone, Mexilitine, Metoprolol, Digoxin. patient denies chest pain, shortness of breath, syncope or near-syncope. 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 Review of Systems-Cardiology Review of Systems Constitutional: As described under HPI; No As described under HPI, No no symptoms reported, No chills, No fever, No lightheadedness Eyes: No As described under HPI, No no symptoms reported, No blindness, No blurred vision, No contact lenses, No drainage, No decreased acuity, No foreign body sensation, No pain, No vision change Ears/Nose/Throat: No As described under HPI, No no symptoms reported, No chronic hearing loss, No ear discharge, No ear pain, No nasal drainage, No ulcerations Respiratory: No no symptoms reported; As described under HPI; No As described under HPI, No cough, No orthopnea, No shortness of breath, No SOB with excertion Cardiovascular: No no symptoms reported; As described under HPI; No As described under HPI, No chest pain, No edema, No irregular heart rate, No lightheadedness, No palpitations Gastrointestinal: No no symptoms reported, No As described under HPI, No abdomen distended; abdominal pain; No blood streaked bowels, No constipation, No diarrhea, No nausea, No vomiting, No stool coloration changes Genitourinary: No As described under HPI; burning, dysuria; No discharge, No frequency, No flank pain, No hematuria, No urgency Skin: No rash, No skin related problems, No ulcerations Psychiatric/Neurological: No anxiety, No depression, No seizure, No focal weakness, No syncope Hematologic: No bleeding abnormalities LTD-Edhcsd-Cescnb Hx Patient Social History Marrital Status: Employed/Student: retired Alcohol Use: Denies Use Recreational Drug Use: No Smoking Status: Former Smoker Former smoker/When Quit: Aug 02, 1987 Type Used: Cigarettes 2nd Hand Smoke Exposure: No Recent Foreign Travel: No Recent Infectious Disease Expo: No Hospitalization with Isolation: Denies Physical Abuse Screen: No Sexual Abuse: No Immunizations Up To Date Tetanus Booster (TDap): More than 5yrs Date of Pneumonia Vaccine: Apr 29, 2014 Date of Influenza Vaccine: May 08, 2018 Past Medical History PMH As described under Assessment. Family Medical History Family History: Cardiovascular disease 19 MOTHER G8 BROTHER G8 SISTER Cervical cancer 19 MOTHER Allergies and Home Medications Allergies Coded Allergies: Penicillins (Verified Allergy, Severe, HIVES, SOB, 01/04/18) codeine (Verified Allergy, Severe, SOB, HIVES, 01/04/18) Home Medications Albuterol Sulfate 18 Gm Hfa.aer.ad, 2 PUFF IH QID PRN for SHORTNESS OF BREATH, ( Reported) Albuterol Sulfate 1.25 Mg/3 Ml Vial.neb, 1.25 MG NEB BID, (Reported) Amiodarone HCl 200 Mg Tablet, 200 MG PO DAILY, (Reported) Amiodarone HCl 200 Mg Tablet, 200 MG PO SuWeSa@2000, (Reported) TAKES 200MG DOSE AT NIGHT THREE DAY A WEEK IN ADDITION TO 200MG EVERY MORNING. Amlodipine Besylate 5 Mg Tablet, 5 MG PO HS, (Reported) LAST FILLED 02/01/17 #90 Digoxin 125 Mcg Tablet, 125 MCG PO DAILY, (Reported) Esomeprazole Magnesium 40 Mg Capsule.dr, 40 MG PO DAILY, (Reported) Furosemide 40 Mg Tablet, 40 MG PO 0900,1500, (Reported) Insulin Determir 1,000 Units/10 Ml Soln, 10 UNIT SQ DAILY Prescribed by: NAE BERMEO on 02/11/18 1449 Metoprolol Tartrate 50 Mg Tablet, 25 MG PO BID, (Reported) TAKES 1/2 OF A (50 MG) TABLET Mexiletine HCl 150 Mg Cap, 150 MG PO TID, (Reported) Potassium Chloride 8 Meq Tablet.er, 16 MEQ PO DAILY, (Reported) TAKES 2 (8MEQ) TABLETS Patient Home Medication List Home Medication List Reviewed: Yes Physical Exam-Cardiology Physical Exam Vital Signs/I&O 06/11/18 06/11/18 10:30 12:51 Temp 98.7 Pulse 89 Resp 18 B/P (MAP) 136/75 (95) Pulse Ox 93 O2 Delivery Nasal Cannula Nasal Cannula O2 Flow Rate 3.00 2.00 06/11/18 00:00 Intake Total 980 ml Output Total 900 ml Balance 80 ml Capillary Refill : Less Than 3 SecondsLess Than 3 Seconds Constitutional: appears stated age, AAO x 3; No apparent distress; well- developed, well-nourished HEENT: PERRL; No normal ENT inspection, No TMs normal, No pharynx normal, No scleral icterus (R), No scleral icterus (L), No pale conjunctivae (R), No pale conjunctivae (L), No photophobia, No TM abnormal (R), No TM abnormal (L), No pharyngeal erythema, No tonsillar exudate, No other, No discharge, No EOMI; hearing is well preserved; No hard of hearing; oral hygience is good; No ulceration, No xanthelasmas are seen Neck: No carotid bruit; carotid pulses are 2 + bilaterally Respiratory: No accessory muscle use, No respiratory distress, No chest tender , No chest expansion is symmetric; chest is bilaterally symmetric; No lungs clear to percussion; lungs clear to auscultation; No crackles, No rhonchi, No rales, No stridor, No wheezing, No pleural rub, No other Cardiovascular: regular rate-rhythm; No irregularly irregular, No extra beats, No parasternal heave is noted, No JVD, No edema, No bradycardia, No tachycardia , No point of maximal impulse, No cardiac thrills are palpable; S1 and S2; No gallop/S3, No gallop/S4, No diastolic murmur, No systolic murmur, No friction rub, No click, No other Gastrointestinal: No tender, No soft, No round, No distended, No pulsatile mass , No organomegaly, No guarding, No rebound, No tenderness, No hernia, No mass, No audible bowel sounds, No abnormal bowel sounds, No abdominal bruits, No spleenomegaly, No other Rectal: deferred Extremities: No normal range of motion, No non-tender, No normal inspection, No pedal edema, No calf tenderness, No normal capillary refill, No pelvis stable , No calf tenderness, No inflammation, No pedal edema, No slow capillary refill , No swelling, No other, No abrasion, No clubbing, No cyanosis, No ecchymosis, No laceration, No no lower extremity edema bilateral, No significant edema, No tenderness, No wound Neurologic/Psychiatric: no motor/sensory deficits, alert, normal mood/affect, oriented x 3, power is 5/5 both on sides Skin: No normal color, No warm/dry, No cyanosis, No cool, No diaphoresis, No damp, No ecchymosis, No jaundice, No mottled, No pallor, No rash, No tattoos/ piercings, No ulcerations, No rash on exposed areas, No ulcerations on exposed areas, No other Data Review Labs Laboratory Tests 06/10/18 20:54: Glucometer 141H 06/11/18 05:32: White Blood Count 17.5H, Red Blood Count 3.48L, Hemoglobin 10.3L, Hematocrit 33L , Mean Corpuscular Volume 95, Mean Corpuscular Hemoglobin 30, Mean Corpuscular Hemoglobin Concent 31L, Red Cell Distribution Width 15.9H, Platelet Count 240, Mean Platelet Volume 9.7, Neutrophils (%) (Auto) 83H, Lymphocytes (%) (Auto) 7L , Monocytes (%) (Auto) 10, Eosinophils (%) (Auto) 0, Basophils (%) (Auto) 0, Neutrophils # (Auto) 14.4H, Lymphocytes # (Auto) 1.3, Monocytes # (Auto) 1.7H, Eosinophils # (Auto) 0.0, Basophils # (Auto) 0.0, Sodium Level 138, Potassium Level 4.0, Chloride Level 103, Carbon Dioxide Level 26, Anion Gap 9, Blood Urea Nitrogen 11, Creatinine 1.05, Estimat Glomerular Filtration Rate > 60, BUN/ Creatinine Ratio 10, Glucose Level 99, Calcium Level 9.2, Corrected Calcium 10.1 , Magnesium Level 1.8, Total Bilirubin 0.4, Aspartate Amino Transf (AST/SGOT) 26 , Alanine Aminotransferase (ALT/SGPT) 17, Alkaline Phosphatase 70, Total Protein 7.7, Albumin 2.9L 06/11/18 06:32: Glucometer 109 06/11/18 11:43: Glucometer 104 06/11/18 15:31: Glucometer 126H Microbiology 06/08/18 Blood Culture - Preliminary, Resulted No growth 06/08/18 Urine Culture - Final, Complete Proteus mirabilis A/P-Cardiology Assessment/Admission Diagnosis CAD/ CABG/ PCI, History of VT, Amiodarone, ICD, Renal stones Plan CAD/CABG/PCI- defer to Dr fonseca. ICD - [facility] device. We will take over the device interrogation and set up EP follow up here in [place]. VT- continue mexilitine and amiodarone. Amiodarone - need to get old records of amiodarone surveillance. Renal stones - defer to Dr Ely. Thank you for your consultation. Please call me if you have any questions. Simin Judd MD, FACP, FACC, FSCAI, FHRS, CCDS Interventional Cardiology Cardiac Electrophysiology Vascular Medicine and Endovascular Interventions Clinical Quality Measures DVT/VTE Risk/Contraindication: Risk Factor Score Per Nursin RFS Level Per Nursing on Admit: 4+=Very High Gabriela JUDD MD Jun 11, 2018 13:12
[2018-06-11 16:00] VITALS: BP 133/70
--- NOTE | 2018-06-11 16:16 | Discharge Summary ---
Diagnosis/Chief Complaint Date of Admission Jun 08, 2018 at 16:15 Date of Discharge Jun 11, 2018 Admission Diagnosis Admission Diagnosis See discharge diagnoses Discharge Diagnosis See problem list Problems/Diagnosis: (1) Left ureteral calculus Assessment & Plan: Obstructive and significant in size. Recommended transfer from ER for definitive treatment as local Urology not currently available, patient and spouse declined. Anticipate Urology to see tomorrow. Fentanyl prn pain. Plan for OR tomorrow per Urology, continue supportive care for now. 06/11- attempted procedure this am, unable to safely manage with semi-rigid scope per Dr. Ely, recommended transfer to facility with ability to place nephrostomy tube. Discussed with [facility] and accepted in transfer. Status: Acute (2) Pyelonephritis Assessment & Plan: Possible given stranding and UA consistent with infection, but CT findings may also be explained by the obstruction. On ceftriaxone- has had multiple prior UTI with proteus sensitive to ceftriaxone, and more remotely staph aureus and E coli with no resistance. 06/10- continue ceftriaxone Status: Acute (3) Diabetes mellitus, type 2 Assessment & Plan: Unclear diagnosis- on admission in January had high blood sugar without previous diagnosis of DMII, A1c at that time was 6.2. Required long-acting insulin at that time, and apparently has continued outpatient based on refills. Diabetic diet, sliding scale insulin. Qualifiers: Qualified Codes: E11.65 - Type 2 diabetes mellitus with hyperglycemia; Z79.4 - longterm (current) use of insulin Status: Chronic (4) Leukocytosis Assessment & Plan: WBC was high throughout last admission, had not normalized by d/c, but is increased from that on this admission. On ceftriaxone for suspected UTI/pyelonephritis. Consider peripheral smear if leukocytosis persists. 06/10- stable, will reeval after procedure 06/11- remained stable elevation at transfer but without definitive treatment yet done. Qualifiers: Qualified Codes: D72.828 - Other elevated white blood cell count Status: Acute (5) Hyponatremia Assessment & Plan: Suspect intravascular hypovolemia. Given IVF overnight and will resume furosemide. Check urine Na and osmolality for further eval. 06/10- resolved, labs pending Status: Resolved Resolution Date/Time: 06/10/18 @ 12:28 (6) Acute renal insufficiency Assessment & Plan: Last admission in January creatinine remained mildly elevated throughout, however was normal prior and is decreased today after IVF, so appears more consistent with acute than chronic CKD. Monitor. 06/10- resolved Status: Resolved Resolution Date/Time: 06/10/18 @ 12:28 (7) Congestive heart failure Assessment & Plan: Followed by [facility], has ICD in place and history of VT. No evidence of acute decompensation at this time, resume home beta arpita, amiodarone, mexilitine and furosemide. Cardiology consulted prior to procedure, unknown risk due to limited record availability Qualifiers: Status: Chronic (8) Paroxysmal atrial fibrillation Assessment & Plan: Intolerant of anticoagulation per 's report due to bleeding. Continue digoxin and beta arpita. Status: Chronic (9) COPD (chronic obstructive pulmonary disease) Assessment & Plan: No evidence of exacerbation, continue albuterol prn. Status: Chronic (10) DVT prophylaxis Assessment & Plan: Enoxaparin- last dose 06/10. Status: Acute Chief Complaint/HPI Chief Complaint/HPI provides most of history. States he has had abdominal pain on the right side for about a month. Was treated for UTI x 2 without benefit and also recommended laxative, but she did not believe that was the problem because he was having BM every day. She also noted some swelling in the lower right abdomen. Yesterday due to worsening pain, brought to ER. They deny fever at home , deny nausea, vomiting, diarrhea, constipation. Discharge Summary-Simple/Stand Procedures LT URETEROSCOPY WITH ATTEMPTED LITHOTRIPSY, ATTEMPTED STENT AND RETROGRADE UROGRAM Consultations Urology Cardiology Discharge Physical Examination Allergies: Coded Allergies: Penicillins (Verified Allergy, Severe, HIVES, SOB, 01/04/18) codeine (Verified Allergy, Severe, SOB, HIVES, 01/04/18) Vitals & I&Os Vital Sign - Last 12Hours Date Time Temp Pulse Resp B/P (MAP) Pulse Ox O2 Delivery O2 Flow Rate FiO2 06/11/18 12:51 98.7 89 18 136/75 (95) 93 Nasal Cannula 2.00 Intake and Output 06/11/18 00:00 Intake Total 980 ml Output Total 900 ml Balance 80 ml General Appearance: Alert, No Acute Distress Respiratory: Clear to Auscultation, Normal Air Movement Cardiovascular: Regular Rate, No Murmurs Psych/Mental Status: Mental Status NL Hospital Course See final discharge diagnosis. Labs Laboratory Tests Test 06/09/18 18:30 11/11/18 20:45 06/10/18 05:23 06/10/18 05:35 Range/Units Urine Osmolality 149 [id number] mOsm/kg Urine Random Sodium 48 mmol/L Serum Osmolality 288 280-300 mOsm/kg Glucometer 118 H 112 H 70-110 MG/DL White Blood Count 17.2 H 4.3-11.0 10^3/uL Red Blood Count 3.48 L 4.35-5.85 10^6/uL Hemoglobin 10.6 L 13.3-17.7 G/DL Hematocrit 33 L 40-54 % Mean Corpuscular Volume 95 80-99 FL Mean Corpuscular Hemoglobin 30 25-34 PG Mean Corpuscular Hemoglobin Concent 32 32-36 G/DL Red Cell Distribution Width 16.1 H 10.0-14.5 % Platelet Count 268 130-400 10^3/uL Mean Platelet Volume 9.6 7.4-10.4 FL Neutrophils (%) (Auto) 81 H 42-75 % Lymphocytes (%) (Auto) 8 L 12-44 % Monocytes (%) (Auto) 11 0-12 % Eosinophils (%) (Auto) 0 0-10 % Basophils (%) (Auto) 0 0-10 % Neutrophils # (Auto) 13.8 H 1.8-7.8 X 10^3 Lymphocytes # (Auto) 1.4 1.0-4.0 X 10^3 Monocytes # (Auto) 1.9 H 0.0-1.0 X 10^3 Eosinophils # (Auto) 0.0 0.0-0.3 10^3/uL Basophils # (Auto) 0.0 0.0-0.1 10^3/uL Sodium Level 137 135-145 MMOL/L Potassium Level 4.1 3.6-5.0 MMOL/L Chloride Level 104 98-107 MMOL/L Carbon Dioxide Level 22 21-32 MMOL/L Anion Gap 11 5-14 MMOL/L Blood Urea Nitrogen 14 7-18 MG/DL Creatinine 1.12 0.60-1.30 MG/DL Estimat Glomerular Filtration Rate > 60 BUN/Creatinine Ratio 13 Glucose Level 103 70-105 MG/DL Calcium Level 9.1 8.5-10.1 MG/DL Magnesium Level 1.6 L 1.8-2.4 MG/DL Thyroid Stimulating Hormone (TSH) 1.20 0.35-4.94 UIU/ML Test 06/10/18 11:01 06/10/18 16:18 06/10/18 20:54 06/11/18 05:32 Range/Units Glucometer 160 H 102 141 H 70-110 MG/DL White Blood Count 17.5 H 4.3-11.0 10^3/uL Red Blood Count 3.48 L 4.35-5.85 10^6/uL Hemoglobin 10.3 L 13.3-17.7 G/DL Hematocrit 33 L 40-54 % Mean Corpuscular Volume 95 80-99 FL Mean Corpuscular Hemoglobin 30 25-34 PG Mean Corpuscular Hemoglobin Concent 31 L 32-36 G/DL Red Cell Distribution Width 15.9 H 10.0-14.5 % Platelet Count 240 130-400 10^3/uL Mean Platelet Volume 9.7 7.4-10.4 FL Neutrophils (%) (Auto) 83 H 42-75 % Lymphocytes (%) (Auto) 7 L 12-44 % Monocytes (%) (Auto) 10 0-12 % Eosinophils (%) (Auto) 0 0-10 % Basophils (%) (Auto) 0 0-10 % Neutrophils # (Auto) 14.4 H 1.8-7.8 X 10^3 Lymphocytes # (Auto) 1.3 1.0-4.0 X 10^3 Monocytes # (Auto) 1.7 H 0.0-1.0 X 10^3 Eosinophils # (Auto) 0.0 0.0-0.3 10^3/uL Basophils # (Auto) 0.0 0.0-0.1 10^3/uL Sodium Level 138 135-145 MMOL/L Potassium Level 4.0 3.6-5.0 MMOL/L Chloride Level 103 98-107 MMOL/L Carbon Dioxide Level 26 21-32 MMOL/L Anion Gap 9 5-14 MMOL/L Blood Urea Nitrogen 11 7-18 MG/DL Creatinine 1.05 0.60-1.30 MG/DL Estimat Glomerular Filtration Rate > 60 BUN/Creatinine Ratio 10 Glucose Level 99 70-105 MG/DL Calcium Level 9.2 8.5-10.1 MG/DL Corrected Calcium 10.1 8.5-10.1 MG/DL Magnesium Level 1.8 1.8-2.4 MG/DL Total Bilirubin 0.4 0.1-1.0 MG/DL Aspartate Amino Transf (AST/SGOT) 26 5-34 U/L Alanine Aminotransferase (ALT/SGPT) 17 0-55 U/L Alkaline Phosphatase 70 40-136 U/L Total Protein 7.7 6.4-8.2 GM/DL Albumin 2.9 L 3.2-4.5 GM/DL Test 06/11/18 06:32 06/11/18 11:43 06/11/18 15:31 Range/Units Glucometer 109 104 126 H 70-110 MG/DL Radiology Reviewed CT abd/pelvis 06/08- IMPRESSION: 1. There is a high-grade obstruction of the left collecting system due to two large calculi within the proximal left ureter. There is also a newly developed 1.4 x 2.2 cm bladder calculus and there may be early staghorn calculus formation in the left kidney. 2. There is no acute abnormality of the abdomen or pelvis noted otherwise. Discharge Instructions to patient/family Please see electronic discharge instructions given to patient. Discharge Medications Reviewed and agree with Discharge Medication list on patient's Discharge Instruction sheet Clinical Quality Measures DVT/VTE Risk/Contraindication: Risk Factor Score Per Nursin RFS Level Per Nursing on Admit: 4+=Very High Copy Copies To 1: ABHINAV GONZALEZ MD, BETHANY N MD Jun 11, 2018 16:16
[2018-06-11] MEDS: cefTRIAXone 1 GM/NS 50 ML IVPB IV SCH ×2 (16:31)
--- NOTE | 2018-06-12 09:33 | OPERATIVE REPORT ---
DATE OF SERVICE: 06/11/2018 PREOPERATIVE DIAGNOSES: Left mid ureteral stones, left renal stones, and a bladder stone. POSTOPERATIVE DIAGNOSES: Left mid ureteral stones, left renal stones, and a bladder stone. OPERATION PERFORMED: Left ureteroscopy with attempted stone lithotripsy and attempted stent with retrograde urogram. SURGEON: Samuel Rizzo MD. ANESTHESIA: General. COMPLICATIONS: None. PROCEDURE: Under satisfactory general anesthesia, the patient in the lithotomy position, genitalia were prepped and draped in the usual sterile fashion. Cystoscope was introduced under vision. The anterior urethra was normal. The prostate revealed some enlargement of the bladder neck obstruction and trabeculation. Ureteric orifices were normal in shape, size and configuration with clear efflux, none on the left side. Using the foroblique lens, I passed first a 6-Yoruba ureteral catheter and then it was held at the level presumed of the stone that was very hard to see being not very radiopaque and because of the size of the patient. I injected contrast; the contrast could not even pass beyond the stones. I removed the 6-Yoruba, dilated the intramural portion and a left ureteral orifice to accommodate the 6.9-Yoruba semi-rigid ureteroscope. I was able to get to the stone. However, the erections and having a semi-rigid not flexible being unavailable with our institution and the lithoclast not reaching the stone, I was unable to perform the lithotripsy effectively and safely, especially that we are dealing were 2 big stones, 1 cm and 2 cm in sizes. I did remove the ureteroscope, reinserted the cystoscope, attempted to pass a stent, again unable to even pass beyond the stones. I discontinued further attempts in order not to disturb these for the next procedure, emptied the bladder. The patient tolerated the procedure and anesthesia well and was sent to recovery room in stable condition. PLAN: As previously addressed with the patient and his , we need to transfer him to institution where either a percutaneous nephrostomy can be done since our radiologist does not perform these or a flexible ureteroscopy with laser lithotripsy be performed. We will discuss with Dr. Donohue and see closest place available for the patient who can definitely be transferred by ambulance. I would recommend that PIOTR before he goes into any sepsis again. Job ID: [id number] DocumentID: [id number] Dictated Date: 06/11/2018 09:42:08 Letterer Date: 06/11/2018 11:59:47 Dictated By: SAMUEL RIZZO MD
== END 2018-06-11 20:36 | disposition short-term general hospital (02) | DRG 694 ==
LOC: EDUNIT# 14:00 → ER 14:01 → 4TH 16:15
PROVIDERS: ADMIT Family Medicine; ATTEND Family Medicine
PROC: 0TJ98ZZ Inspection of Ureter, Via Natural or Artificial Opening Endoscopic (ICD-10-PCS; principal; 2018-06-11 08:45)
DX: N20.2 Calculus of kidney with calculus of ureter (principal); N21.0 Calculus in bladder; N10 Acute pyelonephritis; E87.1 Hypo-osmolality and hyponatremia; N28.9 Disorder of kidney and ureter, unspecified; E83.42 Hypomagnesemia; I11.0 Hypertensive heart disease with heart failure; I50.9 Heart failure, unspecified; E11.65 Type 2 diabetes mellitus with hyperglycemia; E11.40 Type 2 diabetes mellitus with diabetic neuropathy, unspecified; F03.90 Unspecified dementia, unspecified severity, without behavioral disturbance, psychotic disturbance, mood disturbance, and anxiety; J44.9 Chronic obstructive pulmonary disease, unspecified; G47.30 Sleep apnea, unspecified; I25.10 Atherosclerotic heart disease of native coronary artery without angina pectoris; I25.2 Old myocardial infarction; E78.00 Pure hypercholesterolemia, unspecified; K21.9 Gastro-esophageal reflux disease without esophagitis; I48.0 Paroxysmal atrial fibrillation; H40.9 Unspecified glaucoma; R26.2 Difficulty in walking, not elsewhere classified; M19.91 Primary osteoarthritis, unspecified site; I70.201 Unspecified atherosclerosis of native arteries of extremities, right leg; F32.9 Major depressive disorder, single episode, unspecified; Z79.4 Long term (current) use of insulin; Z95.1 Presence of aortocoronary bypass graft; Z95.5 Presence of coronary angioplasty implant and graft; Z87.891 Personal history of nicotine dependence; Z95.810 Presence of automatic (implantable) cardiac defibrillator; Z99.81 Dependence on supplemental oxygen; Z85.828 Personal history of other malignant neoplasm of skin
CPT/HCPCS: 36415; 74018; 74019; 74176; 80048; 80053; 81000; 82962; 83605; 83690; 83735; 83930; 83935; 84300; 84443; 85007; 85025; 85027; 87040; 87077; 87081; 87088; 87186; 93005; 96365

== ENCOUNTER 2018-06-15 03:38 | Inpatient (IN) | payer MEDICARE, MEDICAID ==
[~2018-06-15] VITALS: Ht 165.1 cm; Wt 86.3 kg
--- NOTE | 2018-06-15 03:59 | ED General ---
General Stated Complaint: URINARY ISSUES Source of Information: Patient (PT IS POOR HISTORIAN ( PT WITH HISTORY OF DEMENTIA ) AND SPEECH DIFFICULT TO UNDERSTAND ( APPEARS TO BE IN PART DUE TO EXTREMELY DRY ORAL MUCOSA) --NORMAL BASELINE FOR PT), EMS, Old Records History of Present Illness Date Seen by Provider: Jun 15, 2018 Time Seen by Provider: 03:40 Initial Comments PT ARRIVES VIA EMS FROM HOME-- DOES NOT ACCOMPANY PT TO ER. PT WAS JUST DISMISSED FROM [facility] THIS AFTERNOON / Sunday06/14/18 PT WAS ADMITTED HERE 06/08-06/11 FOR UTI WITH SEPSIS, WITH 2 LARGE LEFT URETERAL STONES--1 CM AND 2 CM ATTEMPTS TO DO LITHOTRIPSY AND URETERAL STENT WERE UNSUCCESSFUL, AND NO INTERVENTIONAL RADIOLOGY SERVICES WERE AVAILABLE, SO PT WAS TRANSFERRED TO [facility] AND HAD LEFT NEPHROSTOMY TUBE PLACED. SENT HOME WITH RX FOR VANTIN, BUT HAS NOT FILLED IT YET, AND BRINGS WITH HIM TO ER. PT IS SCHEDULED TO HAVE HOME HEALTH START SEEING HIM TODAY PT HAS NO COMPLAINTS. STATES HE FEELS FINE STATES HIS NEPHROSTOMY IS WORKING--HAS EMPTIED THE COLLECTION BAG 3 OR 4 TIMES SINCE BEING DISMISSED THIS AFTERNOON NO ABDOMINAL PAIN NO NAUSEA/VOMITING NO FEVER PT DOES NOT KNOW WHY HE IS HERE, OTHER THAN CALLED EMS AND WANTING HIM TO COME HERE EMS REPORT THAT REPEATEDLY STATED TO THEM THAT SHE DID NOT WANT HIM DISMISSED TO HOME, AND WANTED HIM ADMITTED BACK HERE FOR "FDC REHAB" AND STATES SHE CANNOT TAKE CARE OF HIM AND CALLED THEM TO BRING HIM HERE FOR US TO ADMIT HIM AND TAKE CARE OF HIM PT HAS BEEN IN PRISON IN THE PAST, AFTER HIP FRACTURE IN 2017, BUT HAS BEEN BACK IN HOME FOR OVER A YEAR. PT WITH MULTIPLE VISITS HERE FOR VARIOUS COMPLAINTS PT HAS HAD SEPSIS SEVERAL TIMES. PCP: DR. GONZALEZ AT [facility] Allergies and Home Medications Allergies Coded Allergies: Penicillins (Verified Allergy, Severe, HIVES, SOB, 01/04/18) codeine (Verified Allergy, Severe, SOB, HIVES, 01/04/18) Home Medications Albuterol Sulfate 18 Gm Hfa.aer.ad, 2 PUFF IH QID PRN for SHORTNESS OF BREATH, ( Reported) Albuterol Sulfate 1.25 Mg/3 Ml Vial.neb, 1.25 MG NEB BID, (Reported) Amiodarone HCl 200 Mg Tablet, 200 MG PO DAILY, (Reported) Amiodarone HCl 200 Mg Tablet, 200 MG PO SuWeSa@[id number], (Reported) TAKES 200MG DOSE AT NIGHT THREE DAY A WEEK IN ADDITION TO 200MG EVERY MORNING. Amlodipine Besylate 5 Mg Tablet, 5 MG PO HS, (Reported) LAST FILLED 02/01/17 #90 Digoxin 125 Mcg Tablet, 125 MCG PO DAILY, (Reported) Esomeprazole Magnesium 40 Mg Capsule.dr, 40 MG PO DAILY, (Reported) Furosemide 40 Mg Tablet, 40 MG PO 0900,1500, (Reported) Insulin Determir 1,000 Units/10 Ml Soln, 10 UNIT SQ DAILY Prescribed by: NAE BERMEO on 02/11/18 1449 Metoprolol Tartrate 50 Mg Tablet, 25 MG PO BID, (Reported) TAKES 1/2 OF A (50 MG) TABLET Mexiletine HCl 150 Mg Cap, 150 MG PO TID, (Reported) Potassium Chloride 8 Meq Tablet.er, 16 MEQ PO DAILY, (Reported) TAKES 2 (8MEQ) TABLETS Patient Home Medication List Home Medication List Reviewed: Yes Review of Systems Review of Systems Constitutional: no symptoms reported; No chills, No dizziness, No fever EENTM: no symptoms reported Respiratory: see HPI, cough, dyspnea on exertion; No phlegm; short of breath Cardiovascular: no symptoms reported; No chest pain; edema (CHRONIC/STABLE) Gastrointestinal: no symptoms reported; No abdominal pain, No nausea, No vomiting Genitourinary: see HPI Musculoskeletal: no symptoms reported; No back pain Skin: no symptoms reported Psychiatric/Neurological: No Symptoms Reported Hematologic/Lymphatic: No Symptoms Reported Immunological/Allergic: no symptoms reported Past Wmkwajn-Dtgzot-Potsdo Hx Patient Social History Alcohol Use: Denies Use Recreational Drug Use: No Smoking Status: Former Smoker (3 1/2 TO 4 PPD, QUIT 1992) Type Used: Cigarettes Former Smoker, Quit: Jul 30, 1992 2nd Hand Smoke Exposure: No Recent Foreign Travel: No Contact w/Someone Who Travel: No Recent Hopitalizations: No Immunizations Up To Date Tetanus Booster (TDap): More than 5yrs Date of Pneumonia Vaccine: Apr 29, 2014 Date of Influenza Vaccine: May 08, 2018 Seasonal Allergies Seasonal Allergies: No Past Medical History Surgeries: Yes (SKIN CANCER REMOVALS; CATARACT SURGERY; CARDIAC CATHS WITH STENTS X 2 ; CABG; LEFT HIP FX/ ORIF 08/2016; LITHOTRIPSY; HERNIA REPAIR; 2017--CYSTOSCOPY WITH UNSUCCESSFUL ATTEMPT AT LITHOTRIPSY AND URETERAL STENT PLACEMENT WITH SUBSEQUENT LEFT NEPHROSTOMY TUBE) Cardiac, CABG, Coronary Stent, Defibrillator, Eye Surgery, Orthopedic, Renal Respiratory: Yes (O2 3L/NC AT HS; CHRONIC RESPIRATORY FAILURE) Asthma, Pneumonia, Chronic Bronchitis, Sleep Apnea, COPD Currently Using CPAP: No Currently Using BIPAP: No Cardiac: Yes (CABG; STENTS X 2; DEFIBRILLATOR FOR ISCHEMIC CARDIOMYOPATHY WITH V-TACH; ASVD/PVD--ESPECIALLY RIGHT LEG. CARDIAC CATHS-STENTS X2; CHF) Cardiomyopathy, Chronic Edema/Swelling, Coronary Artery Disease, Heart Attack, High Cholesterol, Hypertension, Irregular Heartbeat Neurological: Yes Dementia, Neuropathy Reproductive Disorders: Yes (unable to have children- mumps as a child) Sexually Transmitted Disease: No HIV/AIDS: No Genitourinary: Yes (LEFT NEPHROSTOMY TUBE PLACED 05/2018 FOR URETERAL OBSTRUCTION FROM 2 LARGE STONES--1 CM AND 2 CM IN SIZE. ) Kidney Infection, Bladder Infection, Kidney Stones Gastrointestinal: Yes Gastroesophageal Reflux, Ulcer Musculoskeletal: Yes (POOR MOBILITY; LEFT HIP FRACTURE) Arthritis, Fractures Endocrine: Yes Diabetes, Insulin dep HEENT: Yes Cataract, Glaucoma Loss of Vision: Bilateral Hearing Impairment: Hard of Hearing Cancer: Yes Skin Did You Recieve Any Treatments: Yes What Type of Treatment Did You: Surgical Intervention Psychosocial: Yes Depression Integumentary: Yes (shingles , SKIN CANCER; LEG CELLULITIS/ STASIS DERMATITIS) Blood Disorders: No Adverse Reaction/Blood Tranf: No Family Medical History Cardiovascular disease 19 MOTHER G8 BROTHER G8 SISTER Cervical cancer 19 MOTHER Heart Disease Physical Exam Vital Signs Vital Signs - First Documented 06/15/18 03:40 Temp 98.3 Pulse 110 Resp 15 B/P (MAP) 163/106 (125) Pulse Ox 96 O2 Delivery Nasal Cannula O2 Flow Rate 2.00 Capillary Refill : Height, Weight, BMI Height: 5'5.00" Weight: 188lbs. 4.0oz. [id number]; 31.3 BMI Method:Stated General Appearance: WD/WN, Other (MILDLY DYSPNEIC AT REST, PT WITH CHRONIC GENERALIZED WEAKNESS. FREQUENT LOOSE/MOIST COUGH AND LOTS OF UPPER AIRWAY NOISE/ RHONCHI. SPEECH DIFFICULT TO UNDERSTAND AT TIMES) HEENT: Other (ORAL MUCOSA EXTREMELY DRY) Neck: Normal Inspection Respiratory: Other (MILDLY DYSPNEIC, FREQUENT LOOSE/MOIST COUGH, WITH LOTS OF AUDIBLE UPPER AIRWAY RHONCHI/NOISE. ) Cardiovascular: Regular Rate, Rhythm, No JVD, No Murmur Gastrointestinal: Non Tender, Soft, Other (LEFT NEPHROSTOMY TUBE IN PLACE WITH CLEAR/PALE AND SLIGHTLY PINK URINE. NO SIGNS OF INFECTION. ) Back: No CVA Tenderness Extremity: Normal Capillary Refill, Pedal Edema (2+ ON RIGHT, 1+ ON LEFT, WITH CHRONIC VENOUS STASIS CHANGES BILATERALLY WITH RIGHT > LEFT. NO SIGNIFICANT ERYTHEMA NOTED AT THIS TIME. ) Neurologic/Psychiatric: Alert, No Motor/Sensory Deficits (GROSSLY INTACT ), Normal Mood/Affect (SMILING. 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 ) Skin: Normal Color, Warm/Dry, Other (MULTIPLE SCABS AND CHRONIC APPEARING SKIN LESIONS TO FACE, ARMS AND HANDS. ) Focused Exam Sepsis Stage: Sepsis Possible Source: Pulmonary Lactate Level 06/15/18 04:57: Lactic Acid Level 0.69 Time of Focused Exam: 04:30 Respiratory: Rhonci, Other (MILDLY DYSPNEIC--UNCHANGED) Cardiovascular: No JVD, No Murmur, Tachycardia Skin: normal color, warm/dry Lactic Acid Level Laboratory Tests Test 06/15/18 04:57 Lactic Acid Level 0.69 MMOL/L (0.50-2.00) Within 3hrs of presentation: Admin fluids, Admin ABX, Blood cultures prior to ABX's, Focus exam, Lactate level Progress/Results/Core Measures Suspected Sepsis SIRS Temperature: Pulse: Respiratory Rate: Laboratory Tests 06/15/18 04:25: White Blood Count 13.8H Blood Pressure / Mean: 06/15/18 04:57: Lactic Acid Level 0.69 Laboratory Tests 06/15/18 04:25: Creatinine 0.91, INR Comment 1.2, Platelet Count 235, Total Bilirubin 0.5 Results/Orders Lab Results Laboratory Tests Test 06/15/18 04:25 06/15/18 04:28 06/15/18 04:38 06/15/18 04:57 Range/Units White Blood Count 13.8 H 4.3-11.0 10^3/uL Red Blood Count 4.01 L 4.35-5.85 10^6/uL Hemoglobin 11.9 L 13.3-17.7 G/DL Hematocrit 37 L 40-54 % Mean Corpuscular Volume 92 80-99 FL Mean Corpuscular Hemoglobin 30 25-34 PG Mean Corpuscular Hemoglobin Concent 32 32-36 G/DL Red Cell Distribution Width 15.7 H 10.0-14.5 % Platelet Count 235 130-400 10^3/uL Mean Platelet Volume 9.7 7.4-10.4 FL Neutrophils (%) (Auto) 75 42-75 % Lymphocytes (%) (Auto) 13 12-44 % Monocytes (%) (Auto) 12 0-12 % Eosinophils (%) (Auto) 0 0-10 % Basophils (%) (Auto) 0 0-10 % Neutrophils # (Auto) 10.3 H 1.8-7.8 X 10^3 Lymphocytes # (Auto) 1.8 1.0-4.0 X 10^3 Monocytes # (Auto) 1.6 H 0.0-1.0 X 10^3 Eosinophils # (Auto) 0.0 0.0-0.3 10^3/uL Basophils # (Auto) 0.0 0.0-0.1 10^3/uL Prothrombin Time 15.3 H 12.2-14.7 SEC INR Comment 1.2 0.8-1.4 Activated Partial Thromboplast Time 35 24-35 SEC Sodium Level 141 135-145 MMOL/L Potassium Level 3.3 L 3.6-5.0 MMOL/L Chloride Level 102 98-107 MMOL/L Carbon Dioxide Level 30 21-32 MMOL/L Anion Gap 9 5-14 MMOL/L Blood Urea Nitrogen 23 H 7-18 MG/DL Creatinine 0.91 0.60-1.30 MG/DL Estimat Glomerular Filtration Rate > 60 BUN/Creatinine Ratio 25 Glucose Level 118 H 70-105 MG/DL Calcium Level 9.5 8.5-10.1 MG/DL Corrected Calcium 10.3 H 8.5-10.1 MG/DL Magnesium Level 1.6 L 1.8-2.4 MG/DL Total Bilirubin 0.5 0.1-1.0 MG/DL Aspartate Amino Transf (AST/SGOT) 37 H 5-34 U/L Alanine Aminotransferase (ALT/SGPT) 36 0-55 U/L Alkaline Phosphatase 74 40-136 U/L Troponin I < 0.30 <0.30 NG/ML B-Type Natriuretic Peptide 434.2 H <100.0 PG/ML Total Protein 7.9 6.4-8.2 GM/DL Albumin 3.0 L 3.2-4.5 GM/DL Digoxin Level < 0.30 L 0.80-2.00 NG/ML Glucometer 106 70-110 MG/DL Urine Color YELLOW Urine Clarity CLEAR Urine pH 8 5-9 Urine Specific [place] 1.010 L 1.016-1.022 Urine Protein 3+ H NEGATIVE Urine Glucose (UA) NEGATIVE NEGATIVE Urine Ketones NEGATIVE NEGATIVE Urine Nitrite NEGATIVE NEGATIVE Urine Bilirubin NEGATIVE NEGATIVE Urine Urobilinogen NORMAL NORMAL MG/DL Urine Leukocyte Esterase 3+ H NEGATIVE Urine RBC (Auto) 5+ H NEGATIVE Urine RBC >100 H /HPF Urine WBC 10-25 H /HPF Urine Squamous Epithelial Cells 0-2 /HPF Urine Crystals NONE /LPF Urine Bacteria TRACE /HPF Urine Casts NONE /LPF Urine Mucus NEGATIVE /LPF Urine Culture Indicated YES Lactic Acid Level 0.69 0.50-2.00 MMOL/L Micro Results Microbiology 06/15/18 Influenza Types A,B Antigen ([facility]) - Final, Complete My Orders Orders - DEVORA CORDERO DO Saline Lock/Iv-Start (06/15/18 03:41) Cbc With Automated Diff (06/15/18 03:41) Comprehensive Metabolic Panel (06/15/18 03:41) Ua Culture If Indicated (06/15/18 03:41) Accucheck Stat ONCE (06/15/18 03:50) Ekg Tracing (06/15/18 03:50) O2 (06/15/18 03:50) Monitor-Rhythm Ecg Trace Only (06/15/18 03:50) BNP (06/15/18 03:50) Digoxin (06/15/18 03:50) Lactic Acid Analyzer (06/15/18 03:50) Magnesium (06/15/18 03:50) Protime With Inr (06/15/18 03:50) Partial Thromboplastin Time (06/15/18 03:50) Troponin I (06/15/18 03:50) Blood Culture (06/15/18 03:50) Influenza A And B Antigens (06/15/18 03:50) Chest 1 View, Ap/Pa Only (06/15/18 03:50) Albuterol/Ipra Inhalation Soln (Duoneb I (06/15/18 04:00) Rt Request For Service (06/15/18 03:50) Saline Lock/Iv-Start (06/15/18 03:50) Svn Small Volume Nebulizer (06/15/18 03:50) Urine Culture (06/15/18 04:38) Magnesium 1 Gm/100 Ml Ivpb (Magnesium Dietz (06/15/18 05:15) Magnesium Oxide Tablet (Mag Ox Tablet) (06/15/18 05:15) Potassium Chloride (Tablet) (Klor Con Ta (06/15/18 05:15) Saline Lock/Iv-Start (06/15/18 05:10) Ns Iv 1000 Ml (Sodium Chloride 0.9%) (06/15/18 05:10) Cefepime Injection (Maxipime Injection) (06/15/18 05:15) Medications Given in ED Current Medications Medications Dose Ordered Sig/Re Route Start Time Stop Time Status Last Admin Dose Admin Albuterol/ Ipratropium 3 ml ONCE ONCE INH 06/15/18 04:00 06/15/18 04:01 DC 06/15/18 04:01 3 ML Cefepime HCl 2000 mg/Sodium Chloride 50 ml @ 100 mls/hr ONCE ONCE IV 06/15/18 05:15 06/15/18 05:44 DC 06/15/18 05:23 100 MLS/HR Magnesium Oxide 800 mg ONCE ONCE PO 06/15/18 05:15 06/15/18 05:16 DC 06/15/18 05:23 800 MG Magnesium Sulfate/ Dextrose 100 ml @ 100 mls/hr ONCE ONCE IV 06/15/18 05:15 06/15/18 06:14 DC 06/15/18 05:56 100 MLS/HR Potassium Chloride 20 meq ONCE ONCE PO 06/15/18 05:15 06/15/18 05:16 DC 06/15/18 05:23 20 MEQ Sodium Chloride 1,000 ml @ 0 mls/hr Q0M ONCE IV 06/15/18 05:10 06/15/18 05:14 DC 06/15/18 05:23 1,000 MLS/HR Vital Signs/I&O 06/15/18 06/15/18 03:40 04:01 Temp 98.3 Pulse 110 Resp 15 B/P (MAP) 163/106 (125) Pulse Ox 96 95 O2 Delivery Nasal Cannula Nasal Cannula O2 Flow Rate 2.00 Capillary Refill : Progress Note : Progress Note RT TO GIVE NEB TREATMENT AND SUCTION--PT DID NOT TOLERATE SUCTIONING WELL, BUT DID HAVE SOME DECREASE IN UPPER AIRWAY NOISE PT SOMEWHAT LESS DYSPNEIC O2 SATS REMAINED IN UPPER 90'S INITIAL HEART RATE AROUND 120 ON ARRIVAL AND PT WAS HYPERTENSIVE WITH BP IN 160' S/100'S NO DETERIORATION IN PT'S CONDITION DURING ER STAY PT MEETS SEPSIS CRITERIA BY: HEART RATE > 90, WBC > 12,000 AND SOURCE OF INFECTION--UTI/ PULMONARY--ADDITIONALLY WITH RECENT HOSPITALIZATION WITH RECENT BROAD SPECTRUM ANTIBIOTICS, AT RISK FOR MULTI DRUG RESISTANT ORGANISMS ECG Initial ECG Impression Date: Jun 15, 2018 Initial ECG Impression Time: 04:26 Initial ECG Rate: 118 Initial ECG Rhythm: S.Tach (LBBB) Initial ECG Comparisson: Unchanged Diagnostic Imaging Comments CXR--BIBASILAR ATELECTASIS/INFILTRATES, PENDING RADIOLOGIST REVIEW Reviewed: Reviewed by Hi Departure Communication (Admissions) 0517--SPOKE WITH DR. BERMEO, ACCEPTS PT FOR ADMIT Impression Primary Impression: Sepsis Additional Impressions: UTI (urinary tract infection) BIBASILAR ATELECTASIS / INFILTRATES S/P RECENT PLACEMENT OF LEFT NEPHROSTOMY TUBE LEFT URETERAL CALCULI WITH OBSTRUCTION Dehydration Hypokaluria Hypomagnesemia COPD (chronic obstructive pulmonary disease) IDDM TYPE 2 HTN (hypertension) Disposition: ADMITTED INPATIENT Condition: Stable Admissions Decision to Admit Reason: Admit from ER (General) Decision to Admit/Date: Jun 15, 2018 Time/Decision to Admit Time: 05:20 Departure-Patient Inst. Referrals: ABHINAV GONZALEZ MD (PCP/Family) Primary Care Physician DEVORA CORDERO DO Jun 15, 2018 03:59
[2018-06-15] MEDS ORDERED: RT-ALBUTEROL/IPRATROPIUM 3 ML (DUONEB) VIAL INH ONE (04:00)
[2018-06-15 04:41] LABS: BASOPHILS % (AUTO) 0 % (0-10); EOSINOPHILS % (AUTO) 0 % (0-10); HEMATOCRIT 37 % (40-54); HEMOGLOBIN 11.9 G/DL (13.3-17.7); LYMPHOCYTES # (AUTO) 1.8 X 10^3 (1.0-4.0); LYMPHOCYTES % (AUTO) 13 % (12-44); MEAN CORPUSCULAR HEMOGLOBIN 30 PG (25-34); MEAN CORPUSCULAR HGB CONC 32 G/DL (32-36); MEAN CORPUSCULAR VOLUME 92 FL (80-99); MEAN PLATELET VOLUME 9.7 FL (7.4-10.4); MONOCYTES # (AUTO) 1.6 X 10^3 (0.0-1.0); MONOCYTES % (AUTO) 12 % (0-12); NEUTROPHILS # (AUTO) 10.3 X 10^3 (1.8-7.8); NEUTROPHILS % (AUTO) 75 % (42-75); PLATELET COUNT 235 10^3/uL (130-400); RED BLOOD COUNT 4.01 10^6/uL (4.35-5.85); RED CELL DISTRIBUTION WIDTH 15.7 % (10.0-14.5); WHITE BLOOD COUNT 13.8 10^3/uL (4.3-11.0)
[2018-06-15 04:48] LABS: BILIRUBIN,URINE NEGATIVE (NEGATIVE); CLARITY,URINE CLEAR; COLOR,URINE YELLOW; GLUCOSE, URINE (UA) NEGATIVE (NEGATIVE); KETONES,URINE NEGATIVE (NEGATIVE); LEUKOCYTE ESTERASE ,URINE 3+ (NEGATIVE); NITRITE,URINE NEGATIVE (NEGATIVE); PH,URINE 8 (5-9); PROTEIN,URINE 3+ (NEGATIVE); UROBILINOGEN,URINE NORMAL (NORMAL)
[2018-06-15 04:53] LABS: INR 1.2 (0.8-1.4); PROTHROMBIN TIME PATIENT 15.3 SEC (12.2-14.7)
[2018-06-15 04:55] LABS: BACTERIA,URINE TRACE /HPF; RBC,URINE >100 /HPF; SQUAMOUS EPITHELIAL CELL,UR 0-2 /HPF
[2018-06-15 05:02] LABS: ALANINE AMINOTRANSFERASE 36 U/L (0-55); ALKALINE PHOSPHATASE 74 U/L (40-136); BILIRUBIN,TOTAL 0.5 MG/DL (0.1-1.0); BUN/CREATININE RATIO 25; CALCIUM 9.5 MG/DL (8.5-10.1); CARBON DIOXIDE 30 MMOL/L (21-32); CHLORIDE 102 MMOL/L (98-107); CREATININE SERUM 0.91 MG/DL (0.60-1.30); GFR ESTIMATED > 60; GLUCOSE 118 MG/DL (70-105); MAGNESIUM 1.6 MG/DL (1.8-2.4); POTASSIUM 3.3 MMOL/L (3.6-5.0); SODIUM 141 MMOL/L (135-145); TOTAL PROTEIN 7.9 GM/DL (6.4-8.2)
[2018-06-15 05:08] LABS: DIGOXIN < 0.30 NG/ML (0.80-2.00)
[2018-06-15] MEDS ORDERED: NS IV 1000 ML 1,000 ML IV ONE (05:10)
[2018-06-15] MEDS ORDERED: CEFEPIME INJECTION 2,000 MG in NS (IVPB) 50 ML IV ONE (05:15)
[2018-06-15] MEDS ORDERED: MAGNESIUM 1 GM/100 ML IVPB 100 ML IV ONE (05:15)
[2018-06-15] MEDS ORDERED: MAGNESIUM OXIDE (MAG-OX)400 MG TAB PO ONE (05:15)
[2018-06-15] MEDS ORDERED: KCL 10 MEQ TAB (MICRO K) PO ONE (05:15)
--- NOTE | 2018-06-15 06:39 | Diagnostic Imaging Report ---
EXAMINATION: Chest radiograph, portable AP view. DATE: June 15, 2018 at 0501 hours. INDICATION: 78-year-old male, shortness of breath. COMPARISON: February 03, 2018. FINDINGS: There are median sternotomy wires. There is a left-sided cardiac assist device with leads. Lung volumes are low. Heart size and mediastinal contours are unchanged. There is no identified pneumothorax. There are bilateral predominantly interstitial opacities with additional alveolar consolidation in the left lower lobe which is increased since comparison exam. There is some mild blunting of the right and left lateral costophrenic angles. There is a left-sided abdominal catheter potentially reflecting a nephrostomy tube. IMPRESSION: 1. Persistent low lung volumes with bilateral interstitial opacities and additional alveolar consolidation in the left lung base which is increased since comparison exam. Dictated by: Dictated on workstation # [id number]
[2018-06-15] MEDS ORDERED: D5 1/2 NS W/KCL 20 MEQ/L 1,000 ML IV ONE (07:48)
[2018-06-15] MEDS: D5 1/2 NS W/KCL 20 MEQ/L 1,000 ML IV SCH ×2 (08:15→16:55)
[2018-06-15] MEDS ORDERED: CATHETER FLUSH 10 ML SYR IV PRN (08:30)
[2018-06-15] MEDS: CEFEPIME 2 GM/NS 50 ML IVPB IV SCH ×4 (09:19→20:56)
[2018-06-15] MEDS ORDERED: AMIO200T4 PO ×2 (11:45)
[2018-06-15 12:00] VITALS: BP 164/90
--- NOTE | 2018-06-15 13:16 | Physical Therapy Evaluation ---
PT Evaluation-General Medical Diagnosis Admission Date Jun 15, 2018 at 05:20 Medical Diagnosis: suspected sepsis Onset Date: Jun 15, 2018 Therapy Diagnosis Therapy Diagnosis: weakness; abn gait Height/Weight Height (Feet): 5 Height (Inches): 5.00 Weight (Pounds): 181 Weight (Ounces): 4.0 Precautions Precautions/Isolations: Fall Prevention, Standard Precautions Weight Bear Status Right Lower Extremity: Right Weight Bearing/Tolerated Left Lower Extremity: Left Weight Bearing/Tolerated Referral Physician: Luli Reason for Referral: Evaluation/Treatment Medical History Pertinent Medical History: Atrial Fib, Arthritis, CABG, CAD, COPD, Dementia, GERD, ND, Neuropathy Current History Admitted with UTI and suspected sepsis. Reviewed History: Yes Social History Home: Apartment Current Living Status: Spouse Entry Into Home: Level Entry Prior/Core FIM Prior Level of Function Functional [place] Measure 0=Not Assessed/NA 4=Minimal Assistance 1=Total Assistance 5=Supervision or Setup 2=Maximal Assistance 6=Modified [place] 3=Moderate Assistance 7=Complete IndependenceIRFPAI Quality Coding Scale 6 Independent with activity with or without an assistive device 5 Patient requires set up or clean up by helper. Patient completes activity by themselves 4 Supervision or touching assist (CGA). [place] provide cues , steadying assist 3 The helper provides less than half the effort to complete the activity 2 The helper provides more than half the effort to complete the activity 1 Dependent. The helper does all the effort to complete an activity 7 Patient refused to complete or attempt activity 9 The patient did not perform the activity before the current illness or injury 88 Not attempted due to Medical conditions or safety concerns Bed Mobility: 6 Transfers (B,C,W/C) (FIM): 6 Gait: 6 (short distances in their apartment) assists with ADL PT Evaluation-Current Subjective agrees to get up to the chair. Objective Patient Orientation: Person, Place, Time, Situation Problem Solving: Fair Attachments: Oxygen, Drains, IV ROM/Strength ROM Lower Extremities WFL Strength Lower Extremities grossly 3/5 Integumentary/Posture Integumentary refer to nursing notes Bowel Incontinence: No Bladder Incontinence: Yes Posture forward flexed at hips and rounded shoulders with head down. Neuromuscular (Tone, Coordination, Reflexes) functional Sensory Vision: Wears Glasses Hearing: Functional Hand Dominance: Right Sensation Right Lower Extremit: Intact Sensation Left Lower Extremity: Intact Transfers Functional [place] Measure 0=Not Assessed/NA 4=Minimal Assistance 1=Total Assistance 5=Supervision or Setup 2=Maximal Assistance 6=Modified [place] 3=Moderate Assistance 7=Complete [place] Transfers (B, C, W/C) (FIM): 4 Supine to/from Sit: 4 Sit to/from Stand: 4 CGA for safety with cues to sequence safely; transferred bed to chair with FWW with CGA . Up in chair with oxygen in situ and needs met Balance Sitting Static: Good Sitting Dynamic: Good Standing Static: Fair Standing Dynamic: Fair Assessment/Needs Presents with decreased functional strength and activity tolerance. Will benefit from skilled PT to work on [employer] to allow him to return home as before. 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 PT Residential Goals Time Frame: Jun 19, 2018 Transfers (B,C,W/C) (FIM): 6 Gait (FIM): 5 Gait distance (FIM): 3=319-44 ft Gait Assistive Device: FWW PT Plan Problem List Problem List: Activity Tolerance, Functional Strength, Safety, Balance, Gait, Transfer, Bed Mobility Treatment/Plan Treatment Plan: Continue Plan of Care Treatment Plan: Bed Mobility, Education, Functional Activity [place], Functional Strength, Gait, Safety, Therapeutic Exercise, Transfers Treatment Duration: Jun 19, 2018 Frequency: 6 times per week Estimated Hrs Per Day: .25 hour per day Patient and/or Family Agrees t: Yes Safety Risks/Education Patient Education: Transfer Techniques, Safety Issues Teaching Recipient: Patient, Significant Other Teaching Methods: Discussion Response to Teaching: Reinforcement Needed Time/GCodes Time In: 1300 Time Out: 1316 Total Billed Treatment Time: 16 Total Billed Treatment visit EVL 16 AYLA PEREZ PT Jun 15, 2018 13:16
[2018-06-15] MEDS: RT-ALBUTEROL/IPRATROPIUM 3 ML (DUONEB) VIAL INH SCH ×3 (15:05→22:43)
[2018-06-15 16:00] VITALS: BP 132/80
--- NOTE | 2018-06-15 16:45 | History & Physicial (CHS) ---
HPI History of Present Illness: 78 yo M with multiple co morbid conditions that presented to ER after discharge from [facility] yesterday with HH. states that she is unable to care for him at home. She did not get any teaching on his stent and she does not feel comfortable with caring for it. Patient states that he started to have chills yesterday. They had not gone to [facility] his antibiotics and he stated that he just was not feeling well. states that she made him dinner and he did not eat his normal amount. States that he is still having pain in his left flank. States that he has been having some more shortness of breath the last few days. Source: patient, family () Exam Limitations: no limitations Date seen by provider: Jun 15, 2018 Time Seen by Provider: 10:45 Attending Physician Maria C Rockwell MD PCP Elliot Ybarra MD Consult Date of Admission Jun 15, 2018 at 05:20 Home Medications Home Medications Reviewed patient Home Medication Reconciliation performed by pharmacy medication reconciliations floor care technician and/or nursing. Patients Allergies have been reviewed. Allergies Coded Allergies: Penicillins (Verified Allergy, Severe, HIVES, SOB, 01/04/18) codeine (Verified Allergy, Severe, SOB, HIVES, 01/04/18) [id number] Hx Patient Social History Living Status: Lives at home with who is wheel chair bound Alcohol Use: Denies Use Recreational Drug Use: No Smoking Status: Former Smoker Former smoker/When Quit: Aug 02, 1987 Type Used: Cigarettes 2nd Hand Smoke Exposure: No Recent Foreign Travel: No Contact w/other who traveled: No Recent Hopitalizations: No Recent Infectious Disease Expo: No Physical Abuse Screen: No Sexual Abuse: No Immunizations Up To Date Tetanus Booster (TDap): More than 5yrs Date of Pneumonia Vaccine: Apr 29, 2014 Date of Influenza Vaccine: May 08, 2018 Past Medical History CAD s/p CABG and stent x2 CHF Hypertension COPD hx of ventricular arrhythmia s/p defibrillator placement Atherosclerosis of the R leg Stasis dematitis Family Medical History Significant Family History: Heart Disease Family History: Cardiovascular disease 19 MOTHER G8 BROTHER G8 SISTER Cervical cancer 19 MOTHER Review of Systems (CHC) Constitutional: chills; No fever; weakness EENTM: no symptoms reported Respiratory: dyspnea on exertion, orthopnea, short of breath Cardiovascular: no symptoms reported; No chest pain; edema; No palpitations Gastrointestinal: no symptoms reported; No abdominal pain, No constipation, No diarrhea, No nausea, No vomiting Genitourinary: hematuria Musculoskeletal: back pain Skin: no symptoms reported Psychiatric/Neurological: No Symptoms Reported Reviewed Test Results Reviewed Test Results Lab Laboratory Tests Test 06/15/18 04:25 06/15/18 04:28 06/15/18 04:38 06/15/18 04:57 Range/Units White Blood Count 13.8 H 4.3-11.0 10^3/uL Red Blood Count 4.01 L 4.35-5.85 10^6/uL Hemoglobin 11.9 L 13.3-17.7 G/DL Hematocrit 37 L 40-54 % Mean Corpuscular Volume 92 80-99 FL Mean Corpuscular Hemoglobin 30 25-34 PG Mean Corpuscular Hemoglobin Concent 32 32-36 G/DL Red Cell Distribution Width 15.7 H 10.0-14.5 % Platelet Count 235 130-400 10^3/uL Mean Platelet Volume 9.7 7.4-10.4 FL Neutrophils (%) (Auto) 75 42-75 % Lymphocytes (%) (Auto) 13 12-44 % Monocytes (%) (Auto) 12 0-12 % Eosinophils (%) (Auto) 0 0-10 % Basophils (%) (Auto) 0 0-10 % Neutrophils # (Auto) 10.3 H 1.8-7.8 X 10^3 Lymphocytes # (Auto) 1.8 1.0-4.0 X 10^3 Monocytes # (Auto) 1.6 H 0.0-1.0 X 10^3 Eosinophils # (Auto) 0.0 0.0-0.3 10^3/uL Basophils # (Auto) 0.0 0.0-0.1 10^3/uL Prothrombin Time 15.3 H 12.2-14.7 SEC INR Comment 1.2 0.8-1.4 Activated Partial Thromboplast Time 35 24-35 SEC Sodium Level 141 135-145 MMOL/L Potassium Level 3.3 L 3.6-5.0 MMOL/L Chloride Level 102 98-107 MMOL/L Carbon Dioxide Level 30 21-32 MMOL/L Anion Gap 9 5-14 MMOL/L Blood Urea Nitrogen 23 H 7-18 MG/DL Creatinine 0.91 0.60-1.30 MG/DL Estimat Glomerular Filtration Rate > 60 BUN/Creatinine Ratio 25 Glucose Level 118 H 70-105 MG/DL Calcium Level 9.5 8.5-10.1 MG/DL Corrected Calcium 10.3 H 8.5-10.1 MG/DL Magnesium Level 1.6 L 1.8-2.4 MG/DL Total Bilirubin 0.5 0.1-1.0 MG/DL Aspartate Amino Transf (AST/SGOT) 37 H 5-34 U/L Alanine Aminotransferase (ALT/SGPT) 36 0-55 U/L Alkaline Phosphatase 74 40-136 U/L Troponin I < 0.30 <0.30 NG/ML B-Type Natriuretic Peptide 434.2 H <100.0 PG/ML Total Protein 7.9 6.4-8.2 GM/DL Albumin 3.0 L 3.2-4.5 GM/DL Digoxin Level < 0.30 L 0.80-2.00 NG/ML Glucometer 106 70-110 MG/DL Urine Color YELLOW Urine Clarity CLEAR Urine pH 8 5-9 Urine Specific [place] 1.010 L 1.016-1.022 Urine Protein 3+ H NEGATIVE Urine Glucose (UA) NEGATIVE NEGATIVE Urine Ketones NEGATIVE NEGATIVE Urine Nitrite NEGATIVE NEGATIVE Urine Bilirubin NEGATIVE NEGATIVE Urine Urobilinogen NORMAL NORMAL MG/DL Urine Leukocyte Esterase 3+ H NEGATIVE Urine RBC (Auto) 5+ H NEGATIVE Urine RBC >100 H /HPF Urine WBC 10-25 H /HPF Urine Squamous Epithelial Cells 0-2 /HPF Urine Crystals NONE /LPF Urine Bacteria TRACE /HPF Urine Casts NONE /LPF Urine Mucus NEGATIVE /LPF Urine Culture Indicated YES Lactic Acid Level 0.69 0.50-2.00 MMOL/L Test 06/15/18 11:31 06/15/18 16:05 Range/Units Glucometer 127 H 141 H 70-110 MG/DL Physical Exam-(CHC) Physical Exam Vital Signs VS - Last 72 Hours, by Label 06/15/18 06/15/18 06/15/18 06/15/18 03:40 03:40 04:01 06:56 Temp 98.3 98.5 Pulse 110 115 Resp 15 15 B/P (MAP) 163/106 (125) 148/92 (110) Pulse Ox 96 96 95 96 O2 Delivery Nasal Cannula Nasal Cannula Nasal Cannula Nasal Cannula O2 Flow Rate 2.00 3.00 3.00 06/15/18 06/15/18 06/15/18 06/15/18 08:45 10:21 10:22 12:00 Temp 97.8 Pulse 117 86 Resp 22 B/P (MAP) 164/90 (114) Pulse Ox 95 95 95 94 O2 Delivery Nasal Cannula Nasal Cannula Nasal Cannula O2 Flow Rate 3.00 3.00 3.00 FiO2 32 06/15/18 15:07 O2 Delivery Nasal Cannula O2 Flow Rate 3.00 Capillary Refill : Greater Than 3 Seconds General Appearance: mild distress (tired) HEENT: PERRL/EOMI Respiratory: no respiratory distress, no accessory muscle use, wheezing Cardiovascular: normal peripheral pulses, no murmur, irregularly irregular Gastrointestinal: normal bowel sounds, non tender, soft, no organomegaly Back: CVA tenderness (L) Extremities: no calf tenderness, normal capillary refill, pedal edema Neurologic/Psychiatric: vehicle monitor technician II-XII nml as tested, no motor/sensory deficits, alert, normal mood/affect, oriented x 3 Skin: normal color, warm/dry Lymphatic: no adenopathy Assessment/Plan Assessment/Plan Admission Status: Inpatient Order (span 2 midnights) Reason for Inpatient Admission: Patient had recent renal stent placed and requiring IV antibiotics and has acute renal insufficiency (1) Renal calculus, left Status: Acute Assessment & Plan: 06/15: Stent in place at this time from admission at [facility] , urology consulted (2) Pyelonephritis Status: Acute Assessment & Plan: - IV antibiotics (3) Acute renal insufficiency Status: Acute Assessment & Plan: - Will continue to monitor with gentle hydration (4) CAD (coronary artery disease) Status: Chronic Qualifiers: Qualified Codes: I25.10 - Atherosclerotic heart disease of [place] coronary artery without angina pectoris (5) Paroxysmal atrial fibrillation Status: Chronic (6) HTN (hypertension) Status: Acute Assessment & Plan: - Continue home meds Qualifiers: Qualified Codes: I10 - Essential (primary) hypertension (7) Diabetes mellitus, type 2 Status: Chronic Assessment & Plan: - Accucheck AC/HS Qualifiers: (8) COPD (chronic obstructive pulmonary disease) Status: Chronic Assessment & Plan: - Continue to titrate oxygen as tolerated, MAT protocol Qualifiers: Qualified Codes: J44.9 - Chronic obstructive pulmonary disease, unspecified (9) Debility Status: Acute Assessment & Plan: - SW consulted, patient will need placement to SNF (10) DVT prophylaxis Status: Acute Assessment & Plan: - SCDs due to hematuria Clinical Quality Measures DVT/VTE Risk/Contraindication: Risk Factor Score Per Nursin RFS Level Per Nursing on Admit: 4+=Very High Copy Copies To 1: MARIA C EVANS MD Jun 15, 2018 16:45
[2018-06-15 19:15] VITALS: BP 128/70
[2018-06-15] MEDS: MEXILETINE 150 MG (MEXITIL) CAPSULE PO SCH (20:56)
[2018-06-15] MEDS: meTOprolol TARTRATE 25 MG (LOPRESSOR) TABLET PO SCH (20:56)
[2018-06-16] VITALS: BP 124/85
[2018-06-16] MEDS: RT-ALBUTEROL/IPRATROPIUM 3 ML (DUONEB) VIAL INH SCH ×5 (01:26→19:09)
[2018-06-16] MEDS: D5 1/2 NS W/KCL 20 MEQ/L 1,000 ML IV SCH ×2 (01:38→10:32)
[2018-06-16 04:00] VITALS: BP 132/72
[2018-06-16 06:30] LABS: BASOPHILS % (AUTO) 0 % (0-10); EOSINOPHILS # (AUTO) 0.1 10^3/uL (0.0-0.3); EOSINOPHILS % (AUTO) 1 % (0-10); HEMATOCRIT 35 % (40-54); HEMOGLOBIN 11.3 G/DL (13.3-17.7); LYMPHOCYTES # (AUTO) 1.1 X 10^3 (1.0-4.0); LYMPHOCYTES % (AUTO) 9 % (12-44); MEAN CORPUSCULAR HEMOGLOBIN 30 PG (25-34); MEAN CORPUSCULAR HGB CONC 32 G/DL (32-36); MEAN CORPUSCULAR VOLUME 94 FL (80-99); MEAN PLATELET VOLUME 10.1 FL (7.4-10.4); MONOCYTES # (AUTO) 1.6 X 10^3 (0.0-1.0); MONOCYTES % (AUTO) 13 % (0-12); NEUTROPHILS # (AUTO) 9.1 X 10^3 (1.8-7.8); NEUTROPHILS % (AUTO) 77 % (42-75); PLATELET COUNT 227 10^3/uL (130-400); RED BLOOD COUNT 3.75 10^6/uL (4.35-5.85); RED CELL DISTRIBUTION WIDTH 16.2 % (10.0-14.5); WHITE BLOOD COUNT 11.9 10^3/uL (4.3-11.0)
[2018-06-16 06:54] LABS: ALANINE AMINOTRANSFERASE 31 U/L (0-55); ALBUMIN 2.8 GM/DL (3.2-4.5); ALKALINE PHOSPHATASE 69 U/L (40-136); BILIRUBIN,TOTAL 0.4 MG/DL (0.1-1.0); BUN/CREATININE RATIO 22; CALCIUM 9.2 MG/DL (8.5-10.1); CARBON DIOXIDE 28 MMOL/L (21-32); CHLORIDE 104 MMOL/L (98-107); CREATININE SERUM 0.81 MG/DL (0.60-1.30); GFR ESTIMATED > 60; GLUCOSE 130 MG/DL (70-105); MAGNESIUM 1.8 MG/DL (1.8-2.4); POTASSIUM 3.7 MMOL/L (3.6-5.0); SODIUM 140 MMOL/L (135-145); TOTAL PROTEIN 7.3 GM/DL (6.4-8.2)
[2018-06-16] MEDS: PANTOPRAZOLE 40 MG (PROTONIX) TAB PO SCH (06:59)
[2018-06-16] MEDS: CEFEPIME 2 GM/NS 50 ML IVPB IV SCH ×4 (06:59→20:15)
[2018-06-16 08:00] VITALS: BP 138/62
--- NOTE | 2018-06-16 10:03 | Diagnostic Imaging Report ---
EXAMINATION: CHEST (PA AND LATERAL) CLINICAL INDICATION: 78-year-old male, shortness of breath. COMPARISON: June 15, 2018. FINDINGS: There is a left-sided cardiac assist device with leads. Stable overall appearance of the cardiomediastinal silhouette. There is no identified pneumothorax. There is improved aeration of the left lung base with persistent nonspecific right basilar airspace consolidation. There are persistent low lung volumes. There is a probable left-sided nephrostomy tube. IMPRESSION: 1. Interval improved aeration of the left lung base with persistent nonspecific bibasilar airspace consolidation which may relate to infiltrate, atelectasis, and/or effusion. Dictated by: Dictated on workstation # [id number]
[2018-06-16] MEDS: MEXILETINE 150 MG (MEXITIL) CAPSULE PO SCH ×3 (10:32→20:15)
[2018-06-16] MEDS: DIGOXIN 0.125 MG (LANOXIN) TAB PO SCH (10:32)
[2018-06-16] MEDS: FUROSEMIDE 40 MG (LASIX) TAB PO SCH ×2 (10:32→17:03)
[2018-06-16] MEDS: meTOprolol TARTRATE 25 MG (LOPRESSOR) TABLET PO SCH ×2 (10:32→20:15)
[2018-06-16 12:00] VITALS: BP 128/76
[2018-06-16 16:00] VITALS: BP 112/61
[2018-06-16] MEDS: AMIODARONE 200 MG (CORDARONE) TAB PO SCH (17:03)
--- NOTE | 2018-06-16 17:52 | Progress Note (SOAP) ---
Subjective Subjective/Events-last exam Patient sitting in bed comfortably. States that he had an ok night. Tolerating PO appetite without any problems. Having some shortness of breath with minimal activity. Review of Systems Date Seen by Provider: Jun 16, 2018 Time Seen by Provider: 12:45 Pulmonary: Dyspnea, Cough Cardiovascular: No: Chest Pain, Palpitations Gastrointestinal: No: Nausea, Vomiting, Diarrhea, Constipation Genitourinary: Frequency, Incontinence Musculoskeletal: back pain Neurological: Weakness Focused Exam Lactate Level 06/15/18 04:57: Lactic Acid Level 0.69 Time of Focused Exam: 04:30 Objective Exam Last Set of Vital Signs Vital Signs Date Time Temp Pulse Resp B/P (MAP) Pulse Ox O2 Delivery O2 Flow Rate FiO2 06/16/18 16:00 97.5 88 20 112/61 (78) 94 Nasal Cannula 2.00 06/15/18 10:22 32 Capillary Refill : Less Than 3 SecondsGreater Than 3 Seconds I&O Intake and Output 06/16/18 00:00 Intake Total 710 ml Output Total 1475 ml Balance -765 ml Intake Oral 660 ml IV Total 50 ml Output Urine Total 800 ml Other 675 ml Daily Weight Change No General: Alert, Oriented X3, Cooperative Lungs: Other (basilar crackles, diminished breath sounds, mild increased work of breathing with minimal activity) Heart: No Murmurs, Other (Irregular rhythm) Abdomen: Normal Bowel Sounds, Soft, No Hepatosplenomegaly Extremities: No Tenderness/Swelling, Other (2+ pitting edema bilaterally) Neuro: Cranial Nerves 3-12 NL Results/Procedures Lab Laboratory Tests 06/15/18 20:05: Glucometer 135H 06/16/18 05:45: White Blood Count 11.9H, Red Blood Count 3.75L, Hemoglobin 11.3L, Hematocrit 35L , Mean Corpuscular Volume 94, Mean Corpuscular Hemoglobin 30, Mean Corpuscular Hemoglobin Concent 32, Red Cell Distribution Width 16.2H, Platelet Count 227, Mean Platelet Volume 10.1, Neutrophils (%) (Auto) 77H, Lymphocytes (%) (Auto) 9L , Monocytes (%) (Auto) 13H, Eosinophils (%) (Auto) 1, Basophils (%) (Auto) 0, Neutrophils # (Auto) 9.1H, Lymphocytes # (Auto) 1.1, Monocytes # (Auto) 1.6H, Eosinophils # (Auto) 0.1, Basophils # (Auto) 0.0, Sodium Level 140, Potassium Level 3.7, Chloride Level 104, Carbon Dioxide Level 28, Anion Gap 8, Blood Urea Nitrogen 18, Creatinine 0.81, Estimat Glomerular Filtration Rate > 60, BUN/ Creatinine Ratio 22, Glucose Level 130H, Calcium Level 9.2, Corrected Calcium 10.2H, Magnesium Level 1.8, Total Bilirubin 0.4, Aspartate Amino Transf (AST/ SGOT) 29, Alanine Aminotransferase (ALT/SGPT) 31, Alkaline Phosphatase 69, Total Protein 7.3, Albumin 2.8L 06/16/18 05:54: Glucometer 125H 06/16/18 11:17: Glucometer 172H 06/16/18 16:10: Glucometer 165H Microbiology 06/15/18 Blood Culture - Preliminary, Resulted No growth 06/15/18 Influenza Types A,B Antigen (WYATT) - Final, Complete 06/15/18 Urine Culture - Final, Complete NO GROWTH Assessment/Plan Assessment/Plan (1) Renal calculus, left Status: Acute Assessment & Plan: 06/15: Stent in place at this time from admission at [facility] , urology consulted 06/16- Continue IV antibiotics, stent draining clear urine (2) Pyelonephritis Status: Acute Assessment & Plan: - IV antibiotics (3) Acute renal insufficiency Status: Resolved Assessment & Plan: - Will continue to monitor with gentle hydration (4) CAD (coronary artery disease) Status: Chronic Qualifiers: Qualified Codes: I25.10 - Atherosclerotic heart disease of [place] coronary artery without angina pectoris (5) Paroxysmal atrial fibrillation Status: Chronic Assessment & Plan: 06/16- Continue rate control medications (6) HTN (hypertension) Status: Acute Assessment & Plan: - Continue home meds Qualifiers: Qualified Codes: I10 - Essential (primary) hypertension (7) Diabetes mellitus, type 2 Status: Chronic Assessment & Plan: - Accucheck AC/HS Qualifiers: (8) COPD (chronic obstructive pulmonary disease) Status: Chronic Assessment & Plan: - Continue to titrate oxygen as tolerated, MAT protocol Qualifiers: Qualified Codes: J44.9 - Chronic obstructive pulmonary disease, unspecified (9) Debility Status: Acute Assessment & Plan: - SW consulted, patient will need placement to SNF (10) DVT prophylaxis Status: Acute Assessment & Plan: - SCDs due to hematuria Clinical Quality Measures DVT/VTE Risk/Contraindication: Risk Factor Score Per Nursin RFS Level Per Nursing on Admit: 4+=Very High NAE BERMEO MD Jun 16, 2018 17:52
[2018-06-16 20:00] VITALS: BP 114/66
[2018-06-16] MEDS ORDERED: RT-ALBUTEROL/IPRATROPIUM 3 ML (DUONEB) VIAL INH PRN (21:00)
[2018-06-17 00:05] VITALS: BP 125/68
[2018-06-17] MEDS: RT-ALBUTEROL/IPRATROPIUM 3 ML (DUONEB) VIAL INH SCH ×4 (02:45→20:11)
[2018-06-17 04:01] VITALS: BP 128/71
[2018-06-17 05:59] LABS: BASOPHILS % (AUTO) 0 % (0-10); EOSINOPHILS # (AUTO) 0.2 10^3/uL (0.0-0.3); EOSINOPHILS % (AUTO) 1 % (0-10); HEMATOCRIT 35 % (40-54); LYMPHOCYTES # (AUTO) 1.4 X 10^3 (1.0-4.0); LYMPHOCYTES % (AUTO) 10 % (12-44); MEAN CORPUSCULAR HEMOGLOBIN 29 PG (25-34); MEAN CORPUSCULAR HGB CONC 31 G/DL (32-36); MEAN CORPUSCULAR VOLUME 94 FL (80-99); MEAN PLATELET VOLUME 10.2 FL (7.4-10.4); MONOCYTES # (AUTO) 1.7 X 10^3 (0.0-1.0); MONOCYTES % (AUTO) 12 % (0-12); NEUTROPHILS # (AUTO) 10.5 X 10^3 (1.8-7.8); NEUTROPHILS % (AUTO) 76 % (42-75); PLATELET COUNT 192 10^3/uL (130-400); RED BLOOD COUNT 3.74 10^6/uL (4.35-5.85); RED CELL DISTRIBUTION WIDTH 16.1 % (10.0-14.5); WHITE BLOOD COUNT 13.8 10^3/uL (4.3-11.0)
[2018-06-17 06:24] LABS: ALANINE AMINOTRANSFERASE 28 U/L (0-55); ALBUMIN 2.8 GM/DL (3.2-4.5); ALKALINE PHOSPHATASE 69 U/L (40-136); BILIRUBIN,TOTAL 0.5 MG/DL (0.1-1.0); BUN/CREATININE RATIO 25; CALCIUM 9.1 MG/DL (8.5-10.1); CARBON DIOXIDE 25 MMOL/L (21-32); CHLORIDE 103 MMOL/L (98-107); CREATININE SERUM 0.89 MG/DL (0.60-1.30); GFR ESTIMATED > 60; GLUCOSE 102 MG/DL (70-105); POTASSIUM 3.6 MMOL/L (3.6-5.0); SODIUM 137 MMOL/L (135-145); TOTAL PROTEIN 7.2 GM/DL (6.4-8.2)
[2018-06-17] MEDS: CEFEPIME 2 GM/NS 50 ML IVPB IV SCH ×4 (06:53→20:15)
[2018-06-17] MEDS: PANTOPRAZOLE 40 MG (PROTONIX) TAB PO SCH (06:53)
[2018-06-17 08:00] VITALS: BP 125/74
[2018-06-17] MEDS: FUROSEMIDE 40 MG (LASIX) TAB PO SCH ×2 (08:52→15:58)
[2018-06-17] MEDS: AMIODARONE 200 MG (CORDARONE) TAB PO SCH (08:52)
[2018-06-17] MEDS: meTOprolol TARTRATE 25 MG (LOPRESSOR) TABLET PO SCH ×2 (08:52→20:15)
[2018-06-17] MEDS: DIGOXIN 0.125 MG (LANOXIN) TAB PO SCH (08:52)
[2018-06-17] MEDS: MEXILETINE 150 MG (MEXITIL) CAPSULE PO SCH ×3 (08:52→20:15)
--- NOTE | 2018-06-17 09:27 | Progress Note-Urology ---
Progress Note-Urology Progress Notes/Assess & Plan Progress/Assessment & Plan IMPROVING. PLAN LT ESWL TOMORROW WITH NEPHROSTOGRAM IMAGING IF OK WITH DR BERMEO AND ANESTHESIA. FULLY EXPLAINED TO PATIENT AND WHOLE FAMILY. PREOP ORDERED AND CONSENT Final Diagnosis LT URETERAL, RENAL AND BLADDER STONES TREVIN RIZZO MD Jun 17, 2018 09:27
--- NOTE | 2018-06-17 10:44 | Physical Therapy Daily Note ---
PT Daily Note-Current Subjective Pt awake in chair visiting with when PT arrived. Pt agreed to get up and walk with PT. Pain Numeric Pain Scale: 0-No Pain Location: No Pain Reported Mental Status Patient Orientation: Normal For Age Attachments: Oxygen, Drains Transfers Functional [place] Measure 0=Not Assessed/NA 4=Minimal Assistance 1=Total Assistance 5=Supervision or Setup 2=Maximal Assistance 6=Modified [place] 3=Moderate Assistance 7=Complete IndependenceIRFPAI Quality Coding Scale 6 Independent with activity with or without an assistive device 5 Patient requires set up or clean up by helper. Patient completes activity by themselves 4 Supervision or touching assist (CGA). [place] provide cues , steadying assist 3 The helper provides less than half the effort to complete the activity 2 The helper provides more than half the effort to complete the activity 1 Dependent. The helper does all the effort to complete an activity 7 Patient refused to complete or attempt activity 9 The patient did not perform the activity before the current illness or injury 88 Not attempted due to Medical conditions or safety concerns Transfers (B, C, W/C) (FIM): 4 Scootin Sit to/from Stand: 4 Weight Bearing Right Lower Extremity: Right Weight Bearing/Tolerated Left Lower Extremity: Left Weight Bearing/Tolerated Gait Training Gait (FIM): 2 Distance (FIM): 2=397-95 ft Distance: 50' Gait Level of Assist: 4 Gait Persons Needed: 1 Gait Assistive Device: FWW Assessment Pt was able to ambulate 50' with a FWW requiring CGA. Patient has shortened stride length and fatigues quickly with ambulation. Pt did not require a break but noticeable heavy breathing throughout. Pt returned to chair in room and left with when PT exited room. PT Environmental Compliance Inspector Goals Residential Goals PT Environmental Compliance Inspector Goals Time Frame: Jun 19, 2018 Transfers (B,C,W/C) (FIM): 6 Gait (FIM): 5 Gait distance (FIM): 3=929-28 ft Gait Assistive Device: FWW PT Plan Problem List Problem List: Activity Tolerance, Functional Strength, Safety, Balance, Gait, Transfer, Bed Mobility, ROM Treatment/Plan Treatment Plan: Continue Plan of Care Treatment Plan: Bed Mobility, Education, Functional Activity [place], Functional Strength, Gait, Safety, Therapeutic Exercise, Transfers Treatment Duration: Jun 19, 2018 Frequency: 6 times per week Estimated Hrs Per Day: .25 hour per day Patient and/or Family Agrees t: Yes Time/GCodes Time In: 946 Time Out: 956 Total Billed Treatment Time: 10 Total Billed Treatment 1 Visit FA - 10' SIGRID PUGH PT Jun 17, 2018 10:44
[2018-06-17 12:00] VITALS: BP 139/73
[2018-06-17 15:55] VITALS: BP 109/61
[2018-06-17] MEDS ORDERED: ANTACID SUSP 30 ML UDC (MYLANTA) PO NR (18:00)
[2018-06-17 19:45] VITALS: BP 158/70
--- NOTE | 2018-06-17 20:59 | Progress Note (SOAP) ---
Subjective Subjective/Events-last exam Patient stable today. + pain in left flank. Tolerating PO diet. Review of Systems Date Seen by Provider: Jun 17, 2018 Time Seen by Provider: 10:35 Pulmonary: Dyspnea, Cough Cardiovascular: No: Chest Pain, Palpitations Gastrointestinal: Nausea; No: Vomiting Musculoskeletal: other (Flank pain Left, + CVA tenderness on Left) Neurological: Weakness Focused Exam Lactate Level 06/15/18 04:57: Lactic Acid Level 0.69 Time of Focused Exam: 04:30 Objective Exam Last Set of Vital Signs Vital Signs Date Time Temp Pulse Resp B/P (MAP) Pulse Ox O2 Delivery O2 Flow Rate FiO2 06/17/18 20:11 95 Nasal Cannula 1.00 06/17/18 19:00 90 06/17/18 15:55 98.5 16 109/61 (77) 06/16/18 20:44 32 Capillary Refill : Less Than 3 SecondsGreater Than 3 Seconds I&O Intake and Output 06/17/18 00:00 Intake Total 3030 ml Output Total 2475 ml Balance 555 ml Intake Oral 1680 ml IV Total 1350 ml Output Urine Total 325 ml Drainage Total 1375 ml Other 775 ml # Voids 7 # Urine Diapers 1 General: Alert, Cooperative, No Acute Distress HEENT: Mucous Memb Moist/[place] Lungs: Other (Diminish breath sounds, no crackles or wheezing) Heart: Regular Rate, No Murmurs Abdomen: Normal Bowel Sounds, Soft, No Tenderness, No Masses Extremities: No Tenderness/Swelling, Other (trace edema bilaterally) Neuro: Sensation Intact, Cranial Nerves 3-12 NL Psych/Mental Status: Mental Status NL, Mood NL Results/Procedures Lab Laboratory Tests 06/17/18 05:19: Glucometer 114H 06/17/18 05:42: White Blood Count 13.8H, Red Blood Count 3.74L, Hemoglobin 11.0L, Hematocrit 35L , Mean Corpuscular Volume 94, Mean Corpuscular Hemoglobin 29, Mean Corpuscular Hemoglobin Concent 31L, Red Cell Distribution Width 16.1H, Platelet Count 192, Mean Platelet Volume 10.2, Neutrophils (%) (Auto) 76H, Lymphocytes (%) (Auto) 10L, Monocytes (%) (Auto) 12, Eosinophils (%) (Auto) 1, Basophils (%) (Auto) 0, Neutrophils # (Auto) 10.5H, Lymphocytes # (Auto) 1.4, Monocytes # (Auto) 1.7H, Eosinophils # (Auto) 0.2, Basophils # (Auto) 0.0, Sodium Level 137, Potassium Level 3.6, Chloride Level 103, Carbon Dioxide Level 25, Anion Gap 9, Blood Urea Nitrogen 22H, Creatinine 0.89, Estimat Glomerular Filtration Rate > 60, BUN/ Creatinine Ratio 25, Glucose Level 102, Calcium Level 9.1, Corrected Calcium 10.1, Total Bilirubin 0.5, Aspartate Amino Transf (AST/SGOT) 29, Alanine Aminotransferase (ALT/SGPT) 28, Alkaline Phosphatase 69, Total Protein 7.2, Albumin 2.8L 06/17/18 11:40: Glucometer 91 06/17/18 15:54: Glucometer 97 06/17/18 19:56: Glucometer 129H Microbiology 06/15/18 Blood Culture - Preliminary, Resulted No growth 06/15/18 Influenza Types A,B Antigen (WYATT) - Final, Complete 06/15/18 Urine Culture - Final, Complete NO GROWTH Assessment/Plan Assessment/Plan (1) Renal calculus, left Status: Acute Assessment & Plan: 06/15: Stent in place at this time from admission at [place] , urology consulted 06/16- Continue IV antibiotics, stent draining clear urine 06/17: Plan for Lithotrypsy tomorrow with Dr Ely (2) Pyelonephritis Status: Acute Assessment & Plan: - IV antibiotics (3) Acute renal insufficiency Status: Resolved Assessment & Plan: - Will continue to monitor with gentle hydration (4) CAD (coronary artery disease) Status: Chronic Qualifiers: Qualified Codes: I25.10 - Atherosclerotic heart disease of [place] coronary artery without angina pectoris (5) Paroxysmal atrial fibrillation Status: Chronic Assessment & Plan: 06/16- Continue rate control medications (6) HTN (hypertension) Status: Acute Assessment & Plan: - Continue home meds Qualifiers: Qualified Codes: I10 - Essential (primary) hypertension (7) Diabetes mellitus, type 2 Status: Chronic Assessment & Plan: - Accucheck AC/HS Qualifiers: (8) COPD (chronic obstructive pulmonary disease) Status: Chronic Assessment & Plan: - Continue to titrate oxygen as tolerated, MAT protocol 06/17: discussed the importance of using Aerob[employer] and IS Qualifiers: Qualified Codes: J44.9 - Chronic obstructive pulmonary disease, unspecified (9) Debility Status: Acute Assessment & Plan: - SW consulted, patient will need placement to SNF (10) DVT prophylaxis Status: Acute Assessment & Plan: - SCDs due to hematuria Clinical Quality Measures DVT/VTE Risk/Contraindication: Risk Factor Score Per Nursin RFS Level Per Nursing on Admit: 4+=Very High NAE BERMEO MD Jun 17, 2018 20:59
[2018-06-18] VITALS: BP 120/63
[2018-06-18] MEDS: RT-ALBUTEROL/IPRATROPIUM 3 ML (DUONEB) VIAL INH SCH ×4 (02:53→19:56)
[2018-06-18 04:00] VITALS: BP 127/64
[2018-06-18 06:10] LABS: BASOPHILS % (AUTO) 0 % (0-10); EOSINOPHILS # (AUTO) 0.2 10^3/uL (0.0-0.3); EOSINOPHILS % (AUTO) 2 % (0-10); HEMATOCRIT 34 % (40-54); HEMOGLOBIN 10.9 G/DL (13.3-17.7); LYMPHOCYTES # (AUTO) 1.4 X 10^3 (1.0-4.0); LYMPHOCYTES % (AUTO) 14 % (12-44); MEAN CORPUSCULAR HEMOGLOBIN 30 PG (25-34); MEAN CORPUSCULAR HGB CONC 32 G/DL (32-36); MEAN CORPUSCULAR VOLUME 93 FL (80-99); MEAN PLATELET VOLUME 10.4 FL (7.4-10.4); MONOCYTES # (AUTO) 1.5 X 10^3 (0.0-1.0); MONOCYTES % (AUTO) 14 % (0-12); NEUTROPHILS # (AUTO) 7.3 X 10^3 (1.8-7.8); NEUTROPHILS % (AUTO) 70 % (42-75); PLATELET COUNT 204 10^3/uL (130-400); RED BLOOD COUNT 3.64 10^6/uL (4.35-5.85); RED CELL DISTRIBUTION WIDTH 15.8 % (10.0-14.5); WHITE BLOOD COUNT 10.4 10^3/uL (4.3-11.0)
[2018-06-18] MEDS: PANTOPRAZOLE 40 MG (PROTONIX) TAB PO SCH (06:13)
[2018-06-18 06:31] LABS: ALANINE AMINOTRANSFERASE 26 U/L (0-55); ALBUMIN 2.8 GM/DL (3.2-4.5); ALKALINE PHOSPHATASE 69 U/L (40-136); BILIRUBIN,TOTAL 0.5 MG/DL (0.1-1.0); BUN/CREATININE RATIO 26; CALCIUM 9.3 MG/DL (8.5-10.1); CARBON DIOXIDE 30 MMOL/L (21-32); CHLORIDE 101 MMOL/L (98-107); CREATININE SERUM 0.91 MG/DL (0.60-1.30); GFR ESTIMATED > 60; GLUCOSE 96 MG/DL (70-105); POTASSIUM 3.6 MMOL/L (3.6-5.0); SODIUM 139 MMOL/L (135-145); TOTAL PROTEIN 7.3 GM/DL (6.4-8.2)
--- NOTE | 2018-06-18 07:01 | Progress Note-Pre Operative ---
Pre-Operative Progress Note H&P Reviewed The H&P was reviewed, patient examined and no changes noted. Date Seen by Provider: Jun 18, 2018 Time Seen by Provider: 07:00 Date H&P Reviewed: Jun 18, 2018 Time H&P Reviewed: 07:00 Pre-Operative Diagnosis: LT URETERAL, LT RENAL, AND BLADDER STONES TREVIN RIZZO MD Jun 18, 2018 7:01 am
[2018-06-18 08:00] VITALS: BP 124/74
[2018-06-18] MEDS: meTOprolol TARTRATE 25 MG (LOPRESSOR) TABLET PO SCH ×2 (08:14→21:51)
[2018-06-18] MEDS: CEFEPIME 2 GM/NS 50 ML IVPB IV SCH ×4 (08:16→21:51)
[2018-06-18] MEDS: DIGOXIN 0.125 MG (LANOXIN) TAB PO SCH (08:34)
--- NOTE | 2018-06-18 08:46 | Diagnostic Imaging Report ---
INDICATION: Nephrolithiasis KUB 8:23 AM There is a nephrostomy tube projecting over the left kidney. There are two 10 mm calcifications projecting over the upper pole of the left kidney. There is a 10 mm calcification with some small adjacent calcifications projecting over the lower pole of the left kidney. There is a 9 mm calcification projecting over the left ureter near the pelvic inlet. There is a 2.4 cm oval calcification projecting over the lower sacrum that could be a bladder calculus. IMPRESSION: There is a large amount of fecal material which could obscure stones and mimic stones. There are suspected stones in the upper and lower poles of left kidney, left mid ureter and urinary bladder but clinical correlation recommended. Dictated by: Dictated on workstation # [id number]
[2018-06-18] MEDS: AMIODARONE 200 MG (CORDARONE) TAB PO SCH (09:00)
[2018-06-18] MEDS: MEXILETINE 150 MG (MEXITIL) CAPSULE PO SCH ×3 (09:00→21:51)
--- NOTE | 2018-06-18 11:25 | Progress Note-Post Operative ---
Post-Operative Progess Note Surgeon (s)/Dinkey Engine Firer (s) Surgeon TREVIN RIZZO MD Dinkey Engine Firer: NONE Pre-Operative Diagnosis LT URETERAL, LT RENAL, AND BLADDER STONES Post-Operative Diagnosis SAME Procedure & Operative Findings Date of Procedure 06/18/18 Procedure Performed/Findings LT ESWL AND LT NEPHROSTOGRAM Anesthesia Type GENERAL Estimated Blood Loss Estimated blood loss (mL): NONE Specimens/Packing Specimens Removed NONE Packing: NONE TREVIN RIZZO MD Jun 18, 2018 11:25 am
[2018-06-18] MEDS ORDERED: LACTATED RINGERS 1,000 ML IV PRN (11:36)
[2018-06-18] MEDS ORDERED: fentaNYL INJECTION 100 MCG/2 ML AMP ONE (11:50)
[2018-06-18] MEDS ORDERED: ONDANSETRON 4 MG/2 ML (SDV) Z0FRAN ONE (11:56)
[2018-06-18] MEDS ORDERED: proPOfol 200 MG/20 ML (DIPRIVAN) VIAL IV ONE (11:56)
[2018-06-18] MEDS ORDERED: SEVOFLURANE (ULTANE) 15 ML INHAL SOLN ONE ×4 (11:56→13:49)
[2018-06-18] MEDS ORDERED: LIDOCAINE PF 2% 5 ML (XYLOCAINE) VIAL ONE (11:56)
[2018-06-18] MEDS: FUROSEMIDE 40 MG (LASIX) TAB PO SCH ×2 (12:24→18:38)
[2018-06-18] MEDS ORDERED: PHENYLEPHRINE 100 MCG/ML 10 ML (ANESTHESIA) SYR ONE (13:09)
--- NOTE | 2018-06-18 13:26 | Anesthesia-General Post-Op ---
General Patient Condition Mental Status/LOC: Same as Preop Cardiovascular: Satisfactory Nausea/Vomiting: Absent Respiratory: Satisfactory Pain: Controlled Complications: Absent Post Op Complications Complications None Follow Up Care/Instructions Patient Instructions None needed. Anesthesia/Patient Condition Patient Condition Patient is doing well, no complaints, stable vital signs, no apparent adverse anesthesia problems. No complications reported per nursing. BING RAYO CRNA Jun 18, 2018 13:26
--- NOTE | 2018-06-18 14:04 | Physical Therapy Progress Note ---
Therapy Progress Note Pt unavailable today for therapy due to surgery. PT will continue therapy with patient on 06/19/18. SIGRID PUGH PT Jun 18, 2018 14:04
[2018-06-18] MEDS ORDERED: ONDANSETRON 4 MG/2 ML (SDV) Z0FRAN IVP PRN (14:15)
[2018-06-18] MEDS ORDERED: HYDROmorphone 2 MG/ML VIAL (DILAUDID) IV ONE (14:15)
[2018-06-18 16:00] VITALS: BP 103/68
--- NOTE | 2018-06-18 20:27 | Progress Note (SOAP) ---
Subjective Subjective/Events-last exam Patient sleeping this AM. Easily wakes for questions. Patient states that he is short of breath. and daughter in the room this AM. They state that they wish for him to return home after hospitalization. Review of Systems Date Seen by Provider: Jun 18, 2018 Time Seen by Provider: 10:15 Pulmonary: Dyspnea, Cough Cardiovascular: No: Chest Pain, Palpitations Gastrointestinal: No: Nausea, Abdominal Pain Genitourinary: No Hematuria Neurological: Weakness Focused Exam Time of Focused Exam: 04:30 Objective Exam Last Set of Vital Signs Vital Signs Date Time Temp Pulse Resp B/P (MAP) Pulse Ox O2 Delivery O2 Flow Rate FiO2 06/18/18 19:57 98 Nasal Cannula 4.00 06/18/18 12:00 06/18/18 08:00 97.7 96 20 06/16/18 20:44 32 Capillary Refill : Less Than 3 SecondsGreater Than 3 Seconds I&O Intake and Output 06/18/18 00:00 Intake Total 3240 ml Output Total 2275 ml Balance 965 ml Intake Oral 3240 ml Output Urine Total 350 ml Drainage Total 725 ml Other 1200 ml # Voids 3 # Urine Diapers 5 # Bowel Movements 1 General: Alert, Cooperative, No Acute Distress Lungs: Other (basilar crackles, mild increased work of breathing, dyspnea with minimal activity) Heart: Regular Rate Abdomen: Normal Bowel Sounds, Soft, No Tenderness, No Masses Extremities: No Edema Neuro: Cranial Nerves 3-12 NL Psych/Mental Status: Mental Status NL, Mood NL Results/Procedures Lab Laboratory Tests 06/18/18 05:30: White Blood Count 10.4, Red Blood Count 3.64L, Hemoglobin 10.9L, Hematocrit 34L , Mean Corpuscular Volume 93, Mean Corpuscular Hemoglobin 30, Mean Corpuscular Hemoglobin Concent 32, Red Cell Distribution Width 15.8H, Platelet Count 204, Mean Platelet Volume 10.4, Neutrophils (%) (Auto) 70, Lymphocytes (%) (Auto) 14 , Monocytes (%) (Auto) 14H, Eosinophils (%) (Auto) 2, Basophils (%) (Auto) 0, Neutrophils # (Auto) 7.3, Lymphocytes # (Auto) 1.4, Monocytes # (Auto) 1.5H, Eosinophils # (Auto) 0.2, Basophils # (Auto) 0.0, Sodium Level 139, Potassium Level 3.6, Chloride Level 101, Carbon Dioxide Level 30, Anion Gap 8, Blood Urea Nitrogen 24H, Creatinine 0.91, Estimat Glomerular Filtration Rate > 60, BUN/ Creatinine Ratio 26, Glucose Level 96, Calcium Level 9.3, Corrected Calcium 10.3H, Total Bilirubin 0.5, Aspartate Amino Transf (AST/SGOT) 26, Alanine Aminotransferase (ALT/SGPT) 26, Alkaline Phosphatase 69, Total Protein 7.3, Albumin 2.8L 06/18/18 05:37: Glucometer 94 06/18/18 16:56: Glucometer 101 Microbiology 06/15/18 Blood Culture - Preliminary, Resulted No growth 06/17/18 MRSA Screen - Final, Complete 06/15/18 Urine Culture - Final, Complete NO GROWTH Assessment/Plan Assessment/Plan (1) Renal calculus, left Status: Acute Assessment & Plan: 06/15: Stent in place at this time from admission at [facility] , urology consulted 06/16- Continue IV antibiotics, stent draining clear urine 06/17: Plan for Lithotrypsy tomorrow with Dr Ely 06/18: Surgery done today (2) Pyelonephritis Status: Acute Assessment & Plan: - IV antibiotics (3) Acute renal insufficiency Status: Resolved Assessment & Plan: - Will continue to monitor with gentle hydration (4) CAD (coronary artery disease) Status: Chronic Qualifiers: Qualified Codes: I25.10 - Atherosclerotic heart disease of [place] coronary artery without angina pectoris (5) Paroxysmal atrial fibrillation Status: Chronic Assessment & Plan: 06/16- Continue rate control medications (6) HTN (hypertension) Status: Acute Assessment & Plan: - Continue home meds Qualifiers: Qualified Codes: I10 - Essential (primary) hypertension (7) Diabetes mellitus, type 2 Status: Chronic Assessment & Plan: - Accucheck AC/HS Qualifiers: (8) COPD (chronic obstructive pulmonary disease) Status: Chronic Assessment & Plan: - Continue to titrate oxygen as tolerated, MAT protocol 06/17: discussed the importance of using Aerobike and IS Qualifiers: Qualified Codes: J44.9 - Chronic obstructive pulmonary disease, unspecified (9) Debility Status: Acute Assessment & Plan: - SW consulted, patient will needs placement to SNF but and daughter desire Home with (10) DVT prophylaxis Status: Acute Assessment & Plan: - SCDs due to hematuria Clinical Quality Measures DVT/VTE Risk/Contraindication: Risk Factor Score Per Nursin RFS Level Per Nursing on Admit: 4+=Very High NAE BERMEO MD Jun 18, 2018 20:27
[2018-06-18 20:54] VITALS: BP 126/78
[2018-06-19] VITALS: BP 116/56
--- NOTE | 2018-06-19 00:22 | OPERATIVE REPORT ---
DATE OF SERVICE: 06/18/2018 PREOPERATIVE DIAGNOSES: Left ureteral, left renal and bladder stones. POSTOPERATIVE DIAGNOSES: Left ureteral, left renal and bladder stones. OPERATION PERFORMED: 1. Left ESWL. 2. Nephrostogram, left side. SURGEON: Samuel Rizzo MD. ANESTHESIA: General. COMPLICATIONS: None. PROCEDURE: Under satisfactory general anesthesia, the patient in supine position on the ESWL table, the left nephrostomy tube was connected to a of Cystografin and the contrast was lead to flow into the kidney down to the ureter. There was quite a bit of dilatation of the ureter all the way to the cut off area and probably the junction of the mid and distal ureter where there was filling defects there corresponding to the level of the stones. The dilatation was very significantly seen in chronic situation, which has been going on for a while. I went ahead and directed the shockwaves toward the filling defects in the ureter. There was very good response to the breaking of the stones. Throughout the procedure, contrast was added to visualize better and we could start tracing the ureter almost all the way to the bladder. There was also contrast filling the bladder, which signifies the response of the fragmentation to the ESWL shock waves. We delivered a total of 3500 shocks with what seems to be good results. The patient tolerated the procedure and anesthesia well and was sent to recovery room in stable condition. PLAN: We will follow him up with a combination of KUB, noncontrast CTs and nephrostogram to see if he needs further treatment whether same like today or ureteroscopies whatever is possible and amenable in his situation being from the very beginning. This was fully explained to his . Job ID: [id number] DocumentID: [id number] Dictated Date: 06/18/2018 17:13:46 Boiler/Chiller Technician Date: 06/19/2018 00:21:50 Dictated By: SAMUEL RIZZO MD
[2018-06-19] MEDS: RT-ALBUTEROL/IPRATROPIUM 3 ML (DUONEB) VIAL INH SCH ×4 (03:24→19:14)
[2018-06-19 04:00] VITALS: BP 119/65
[2018-06-19 06:28] LABS: BASOPHILS % (AUTO) 0 % (0-10); EOSINOPHILS # (AUTO) 0.2 10^3/uL (0.0-0.3); EOSINOPHILS % (AUTO) 2 % (0-10); HEMATOCRIT 34 % (40-54); HEMOGLOBIN 10.6 G/DL (13.3-17.7); LYMPHOCYTES # (AUTO) 1.2 X 10^3 (1.0-4.0); LYMPHOCYTES % (AUTO) 10 % (12-44); MEAN CORPUSCULAR HEMOGLOBIN 29 PG (25-34); MEAN CORPUSCULAR HGB CONC 31 G/DL (32-36); MEAN CORPUSCULAR VOLUME 94 FL (80-99); MEAN PLATELET VOLUME 10.9 FL (7.4-10.4); MONOCYTES # (AUTO) 1.7 X 10^3 (0.0-1.0); MONOCYTES % (AUTO) 14 % (0-12); NEUTROPHILS # (AUTO) 9.3 X 10^3 (1.8-7.8); NEUTROPHILS % (AUTO) 75 % (42-75); PLATELET COUNT 195 10^3/uL (130-400); RED BLOOD COUNT 3.65 10^6/uL (4.35-5.85); RED CELL DISTRIBUTION WIDTH 15.8 % (10.0-14.5); WHITE BLOOD COUNT 12.3 10^3/uL (4.3-11.0)
[2018-06-19] MEDS: PANTOPRAZOLE 40 MG (PROTONIX) TAB PO SCH (06:34)
[2018-06-19 06:45] LABS: ALANINE AMINOTRANSFERASE 24 U/L (0-55); ALBUMIN 2.9 GM/DL (3.2-4.5); ALKALINE PHOSPHATASE 86 U/L (40-136); BILIRUBIN,TOTAL 0.3 MG/DL (0.1-1.0); BUN/CREATININE RATIO 24; CALCIUM 9.2 MG/DL (8.5-10.1); CARBON DIOXIDE 31 MMOL/L (21-32); CHLORIDE 101 MMOL/L (98-107); CREATININE SERUM 1.02 MG/DL (0.60-1.30); GFR ESTIMATED > 60; GLUCOSE 112 MG/DL (70-105); POTASSIUM 3.9 MMOL/L (3.6-5.0); SODIUM 140 MMOL/L (135-145); TOTAL PROTEIN 7.4 GM/DL (6.4-8.2)
[2018-06-19 08:00] VITALS: BP 112/57
[2018-06-19] MEDS: CEFEPIME 2 GM/NS 50 ML IVPB IV SCH ×4 (09:17→21:03)
[2018-06-19] MEDS: meTOprolol TARTRATE 25 MG (LOPRESSOR) TABLET PO SCH ×2 (09:17→21:03)
[2018-06-19] MEDS: AMIODARONE 200 MG (CORDARONE) TAB PO SCH (09:17)
[2018-06-19] MEDS: FUROSEMIDE 40 MG (LASIX) TAB PO SCH ×2 (09:17→15:02)
[2018-06-19] MEDS: MEXILETINE 150 MG (MEXITIL) CAPSULE PO SCH ×3 (09:17→21:03)
[2018-06-19] MEDS: DIGOXIN 0.125 MG (LANOXIN) TAB PO SCH (09:20)
[2018-06-19] MEDS ORDERED: NS IV 1000 ML 1,000 ML ONE (09:33)
--- NOTE | 2018-06-19 09:35 | Progress Note-Urology ---
Progress Note-Urology Progress Notes/Assess & Plan Progress/Assessment & Plan RECOVERED VERY WELL. NO COMPLAINTS. PLAN RUN FLUIDS THROUGH PCN TUBE AND DISCHARGE, FOLLOW UP AT OFFICE NEXT WEEK WITH PLAN TO CHECK CTS AND NEPHROSTOGRAM TO DECIDE NEXT STEP. ALL FULLY EXPLAINED TO PATIENT AND Final Diagnosis LT URETERAL, RENAL, AND BLADDER STONES TREVIN RIZZO MD Jun 19, 2018 09:35
--- NOTE | 2018-06-19 11:30 | Physical Therapy Daily Note ---
PT Daily Note-Current Subjective Pt reports he is tired and hasn't slept very well since surgery yesterday. Agreeable to work with therapy at his chair Pain Comment: Denies pain until activity then req pain med from nsg Appearance Pt sitting up in chair sleeping, easily aroused with slightly raised voice, family present in room At end of session, pt in recliner with LE's elevated, table in front of him, call light and phone within reach. Patient Called nsg and requested pain med Mental Status Attachments: Oxygen, Drains, IV Transfers Functional [place] Measure 0=Not Assessed/NA 4=Minimal Assistance 1=Total Assistance 5=Supervision or Setup 2=Maximal Assistance 6=Modified [place] 3=Moderate Assistance 7=Complete IndependenceIRFPAI Quality Coding Scale 6 Independent with activity with or without an assistive device 5 Patient requires set up or clean up by helper. Patient completes activity by themselves 4 Supervision or touching assist (CGA). [place] provide cues , steadying assist 3 The helper provides less than half the effort to complete the activity 2 The helper provides more than half the effort to complete the activity 1 Dependent. The helper does all the effort to complete an activity 7 Patient refused to complete or attempt activity 9 The patient did not perform the activity before the current illness or injury 88 Not attempted due to Medical conditions or safety concerns Transfers (B, C, W/C) (FIM): 5 Scootin Sit to/from Stand: 5 Pt requiring mod verb inst several times with sit to/from stand transfers for hand placement and safety Weight Bearing Right Lower Extremity: Right Weight Bearing/Tolerated Left Lower Extremity: Left Weight Bearing/Tolerated Exercises Standing: Hip Abduction, Heel/toe raises, Marching, Mini squats, Sit to Stand, Weight shifts Standing Reps: 15 standing ex's requiring UE support on FWW, attempts to perform quickly requiring inst for decreasing speed and with technique. No LOB but did requiring sitting rest break after each ex completed Treatments exercise, transfer training Assessment Current Status: Fair Progress PT Student Financial Services Counselor Goals Student Financial Services Counselor Goals PT Student Financial Services Counselor Goals Time Frame: Jun 19, 2018 Transfers (B,C,W/C) (FIM): 6 Gait (FIM): 5 Gait distance (FIM): 5=774-41 ft Gait Assistive Device: FWW PT Plan Problem List Problem List: Activity Tolerance, Functional Strength, Safety, Balance, Gait, Transfer Treatment/Plan Treatment Plan: Continue Plan of Care Treatment Plan: Bed Mobility, Education, Functional Activity [place], Functional Strength, Gait, Safety, Therapeutic Exercise, Transfers Treatment Duration: Jun 19, 2018 Frequency: 6 times per week Estimated Hrs Per Day: .25 hour per day Patient and/or Family Agrees t: Yes Safety Risks/Education Patient Education: Transfer Techniques, Safety Issues Teaching Recipient: Patient Teaching Methods: Demonstration, Discussion Response to Teaching: Verbalize Understanding, Return Demonstration, Reinforcement Needed Time/GCodes Time In: 1111 Time Out: 1126 Total Billed Treatment Time: 15 Total Billed Treatment 1 Visit Ex x1 RHYS,SUSAN IMMIGRATION CONSULTANT Jun 19, 2018 11:30
[2018-06-19 12:00] VITALS: BP 118/61
--- NOTE | 2018-06-19 13:57 | Progress Note (SOAP) ---
Subjective Subjective/Events-last exam Patient up sitting in chair this AM. States that he is feeling better. Tolerating PO diet. Needing assistx1 with walker. Review of Systems Date Seen by Provider: Jun 19, 2018 Time Seen by Provider: 10:45 Pulmonary: Dyspnea, Cough Cardiovascular: No: Chest Pain, Palpitations Gastrointestinal: No: Nausea, Vomiting Genitourinary: No Dysuria, No Hematuria Neurological: Weakness; No: Confusion Focused Exam Time of Focused Exam: 04:30 Objective Exam Last Set of Vital Signs Vital Signs Date Time Temp Pulse Resp B/P (MAP) Pulse Ox O2 Delivery O2 Flow Rate FiO2 06/19/18 12:00 98.4 90 18 118/61 (80) 96 Nasal Cannula 1.00 06/19/18 09:30 32 Capillary Refill : Less Than 3 SecondsGreater Than 3 Seconds I&O Intake and Output 06/19/18 00:00 Intake Total 1320 ml Output Total 2125 ml Balance -805 ml Intake Oral 1320 ml Output Urine Total 200 ml Drainage Total 1125 ml Other 800 ml # Voids 2 # Urine Diapers 6 General: Alert, Cooperative Lungs: Other (basilar wheezing, normal work of breathing) Heart: Regular Rate, No Murmurs Abdomen: Normal Bowel Sounds, Soft, No Tenderness, No Masses Extremities: No Edema, No Tenderness/Swelling Skin: Other (Drain w/o erythema or signs of infection) Neuro: Normal Speech, Cranial Nerves 3-12 NL Results/Procedures Lab Laboratory Tests 06/18/18 16:56: Glucometer 101 06/18/18 21:45: Glucometer 195H 06/19/18 05:20: White Blood Count 12.3H, Red Blood Count 3.65L, Hemoglobin 10.6L, Hematocrit 34L , Mean Corpuscular Volume 94, Mean Corpuscular Hemoglobin 29, Mean Corpuscular Hemoglobin Concent 31L, Red Cell Distribution Width 15.8H, Platelet Count 195, Mean Platelet Volume 10.9H, Neutrophils (%) (Auto) 75, Lymphocytes (%) (Auto) 10L, Monocytes (%) (Auto) 14H, Eosinophils (%) (Auto) 2, Basophils (%) (Auto) 0 , Neutrophils # (Auto) 9.3H, Lymphocytes # (Auto) 1.2, Monocytes # (Auto) 1.7H, Eosinophils # (Auto) 0.2, Basophils # (Auto) 0.0, Sodium Level 140, Potassium Level 3.9, Chloride Level 101, Carbon Dioxide Level 31, Anion Gap 8, Blood Urea Nitrogen 24H, Creatinine 1.02, Estimat Glomerular Filtration Rate > 60, BUN/ Creatinine Ratio 24, Glucose Level 112H, Calcium Level 9.2, Corrected Calcium 10.1, Total Bilirubin 0.3, Aspartate Amino Transf (AST/SGOT) 31, Alanine Aminotransferase (ALT/SGPT) 24, Alkaline Phosphatase 86, Total Protein 7.4, Albumin 2.9L 06/19/18 06:51: Glucometer 100 06/19/18 12:13: Glucometer 118H Microbiology 06/15/18 Blood Culture - Preliminary, Resulted No growth 06/17/18 MRSA Screen - Final, Complete 06/15/18 Urine Culture - Final, Complete NO GROWTH Assessment/Plan Assessment/Plan (1) Renal calculus, left Status: Acute Assessment & Plan: 06/15: Stent in place at this time from admission at [facility] , urology consulted 06/16- Continue IV antibiotics, stent draining clear urine 06/17: Plan for Lithotrypsy tomorrow with Dr Ely 06/18: Surgery done today 06/19: Surgery successful with moving stones, Dr Ely will see patient next week in clinic (2) Pyelonephritis Status: Acute Assessment & Plan: - IV antibiotics (3) Acute renal insufficiency Status: Resolved Assessment & Plan: - Will continue to monitor with gentle hydration (4) CAD (coronary artery disease) Status: Chronic Qualifiers: Qualified Codes: I25.10 - Atherosclerotic heart disease of [place] coronary artery without angina pectoris (5) Paroxysmal atrial fibrillation Status: Chronic Assessment & Plan: 06/16- Continue rate control medications (6) HTN (hypertension) Status: Acute Assessment & Plan: - Continue home meds Qualifiers: Qualified Codes: I10 - Essential (primary) hypertension (7) Diabetes mellitus, type 2 Status: Chronic Assessment & Plan: - Accucheck AC/HS Qualifiers: (8) COPD (chronic obstructive pulmonary disease) Status: Chronic Assessment & Plan: - Continue to titrate oxygen as tolerated, MAT protocol 06/17: discussed the importance of using Aerobike and IS Qualifiers: Qualified Codes: J44.9 - Chronic obstructive pulmonary disease, unspecified (9) Debility Status: Acute Assessment & Plan: - SW consulted, patient will needs placement to SNF but and daughter desire Home with HH Patient up to chair and requires assist x1 (10) DVT prophylaxis Status: Acute Assessment & Plan: - SCDs due to hematuria Clinical Quality Measures DVT/VTE Risk/Contraindication: Risk Factor Score Per Nursin RFS Level Per Nursing on Admit: 4+=Very High NAE BERMEO MD Jun 19, 2018 13:57
[2018-06-19 16:00] VITALS: BP 123/73
[2018-06-19] MEDS ORDERED: DOCUSATE SODIUM 100 MG (COLACE) CAP PO NR (18:45)
[2018-06-19 20:49] VITALS: BP 128/74
[2018-06-20] VITALS: BP 132/60
[2018-06-20 04:00] VITALS: BP 119/52
[2018-06-20 04:52] LABS: BASOPHILS % (AUTO) 0 % (0-10); EOSINOPHILS # (AUTO) 0.3 10^3/uL (0.0-0.3); EOSINOPHILS % (AUTO) 3 % (0-10); HEMATOCRIT 33 % (40-54); HEMOGLOBIN 10.5 G/DL (13.3-17.7); LYMPHOCYTES # (AUTO) 1.4 X 10^3 (1.0-4.0); LYMPHOCYTES % (AUTO) 13 % (12-44); MEAN CORPUSCULAR HEMOGLOBIN 30 PG (25-34); MEAN CORPUSCULAR HGB CONC 31 G/DL (32-36); MEAN CORPUSCULAR VOLUME 95 FL (80-99); MEAN PLATELET VOLUME 10.7 FL (7.4-10.4); MONOCYTES # (AUTO) 1.6 X 10^3 (0.0-1.0); MONOCYTES % (AUTO) 14 % (0-12); NEUTROPHILS # (AUTO) 7.9 X 10^3 (1.8-7.8); NEUTROPHILS % (AUTO) 71 % (42-75); PLATELET COUNT 199 10^3/uL (130-400); RED BLOOD COUNT 3.53 10^6/uL (4.35-5.85); RED CELL DISTRIBUTION WIDTH 15.9 % (10.0-14.5); WHITE BLOOD COUNT 11.2 10^3/uL (4.3-11.0)
[2018-06-20 05:11] LABS: ALANINE AMINOTRANSFERASE 25 U/L (0-55); ALBUMIN 2.9 GM/DL (3.2-4.5); ALKALINE PHOSPHATASE 94 U/L (40-136); BILIRUBIN,TOTAL 0.3 MG/DL (0.1-1.0); BUN/CREATININE RATIO 25; CALCIUM 9.1 MG/DL (8.5-10.1); CARBON DIOXIDE 26 MMOL/L (21-32); CHLORIDE 102 MMOL/L (98-107); CREATININE SERUM 1.07 MG/DL (0.60-1.30); GFR ESTIMATED > 60; GLUCOSE 105 MG/DL (70-105); POTASSIUM 3.9 MMOL/L (3.6-5.0); SODIUM 139 MMOL/L (135-145); TOTAL PROTEIN 7.3 GM/DL (6.4-8.2)
[2018-06-20] MEDS: PANTOPRAZOLE 40 MG (PROTONIX) TAB PO SCH (06:36)
[2018-06-20] MEDS: CEFEPIME 2 GM/NS 50 ML IVPB IV SCH ×2 (07:58)
[2018-06-20 08:00] VITALS: BP 116/57
[2018-06-20] MEDS: MEXILETINE 150 MG (MEXITIL) CAPSULE PO SCH ×3 (08:12→21:34)
[2018-06-20] MEDS: DIGOXIN 0.125 MG (LANOXIN) TAB PO SCH (08:12)
[2018-06-20] MEDS: FUROSEMIDE 40 MG (LASIX) TAB PO SCH ×2 (08:13→15:51)
[2018-06-20] MEDS: RT-ALBUTEROL/IPRATROPIUM 3 ML (DUONEB) VIAL INH SCH ×3 (08:55→19:13)
--- NOTE | 2018-06-20 08:58 | Physical Therapy Daily Note ---
PT Daily Note-Current Subjective Patient reluctantly agrees to PT after much encouragement. Pain Numeric Pain Scale: 0-No Pain Location: No Pain Reported Mental Status Patient Orientation: Normal For Age Attachments: Oxygen, IV Transfers Functional [place] Measure 0=Not Assessed/NA 4=Minimal Assistance 1=Total Assistance 5=Supervision or Setup 2=Maximal Assistance 6=Modified [place] 3=Moderate Assistance 7=Complete IndependenceIRFPAI Quality Coding Scale 6 Independent with activity with or without an assistive device 5 Patient requires set up or clean up by helper. Patient completes activity by themselves 4 Supervision or touching assist (CGA). [place] provide cues , steadying assist 3 The helper provides less than half the effort to complete the activity 2 The helper provides more than half the effort to complete the activity 1 Dependent. The helper does all the effort to complete an activity 7 Patient refused to complete or attempt activity 9 The patient did not perform the activity before the current illness or injury 88 Not attempted due to Medical conditions or safety concerns Transfers (B, C, W/C) (FIM): 5 Scootin Sit to/from Stand: 5 Weight Bearing Right Lower Extremity: Right Weight Bearing/Tolerated Left Lower Extremity: Left Weight Bearing/Tolerated Gait Training Gait (FIM): 1 Distance (FIM): 1=up to 49 ft Distance: 30' Gait Level of Assist: 4 Gait Persons Needed: 1 Gait Assistive Device: FWW slow, steady Exercises Seated Therapy Exercises: Ankle pumps, Long arc quads Seated Reps: 15 (2 sets) Assessment Patient tolerated treatment well and remains up in recliner with needs met. Spouse present. 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 Admissions Clinician Goals 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 Time Frame: Jun 19, 2018 Transfers (B,C,W/C) (FIM): 6 Gait (FIM): 5 Gait distance (FIM): 5=602-10 ft Gait Assistive Device: FWW PT Plan Treatment/Plan Treatment Plan: Continue Plan of Care Treatment Plan: Bed Mobility, Education, Functional Activity [place], Functional Strength, Gait, Safety, Therapeutic Exercise, Transfers Treatment Duration: Jun 29, 2018 Frequency: 6 times per week Estimated Hrs Per Day: .25 hour per day Patient and/or Family Agrees t: Yes Time/GCodes Time In: 820 Time Out: 828 Total Billed Treatment Time: 8 Total Billed Treatment 1 visit FA 8 min SIGRID PUGH PT Jun 20, 2018 08:58
[2018-06-20 12:00] VITALS: BP 116/59
[2018-06-20] MEDS: meTOprolol TARTRATE 25 MG (LOPRESSOR) TABLET PO SCH ×2 (12:33→21:34)
[2018-06-20] MEDS: AMIODARONE 200 MG (CORDARONE) TAB PO SCH (12:34)
[2018-06-20] MEDS: IBUPROFEN 600 MG (MOTRIN) TAB PO PRN ×2 (12:58→21:35)
--- NOTE | 2018-06-20 13:35 | Progress Note (SOAP) ---
Subjective Subjective/Events-last exam Patient laying comfortably in bed. Tolerating PO diet. BM last night. States that he is having pain in his back Review of Systems Date Seen by Provider: Jun 20, 2018 Time Seen by Provider: 12:48 Pulmonary: Dyspnea, Cough Cardiovascular: No: Chest Pain, Palpitations Gastrointestinal: No: Nausea, Vomiting, Abdominal Pain Musculoskeletal: back pain Neurological: Weakness Focused Exam Time of Focused Exam: 04:30 Objective Exam Last Set of Vital Signs Vital Signs Date Time Temp Pulse Resp B/P (MAP) Pulse Ox O2 Delivery O2 Flow Rate FiO2 06/20/18 08:55 97 Nasal Cannula 1.00 06/20/18 08:00 97.6 92 18 116/57 (76) 06/19/18 09:30 32 Capillary Refill : Less Than 3 SecondsGreater Than 3 Seconds I&O Intake and Output 06/20/18 00:00 Intake Total 1470 ml Output Total 500 ml Balance 970 ml Intake Oral 1470 ml Drainage Total 500 ml # Voids 13 General: Alert, Cooperative, No Acute Distress HEENT: Mucous Memb Moist/[place] Lungs: Other (basilar crackles and diminished breath sounds, mild increase work of breathing with minimal activity) Heart: Regular Rate, No Murmurs Abdomen: Normal Bowel Sounds, Soft, No Tenderness, No Masses Extremities: No Edema, No Tenderness/Swelling Neuro: Normal Gait, Normal Speech, Sensation Intact, Cranial Nerves 3-12 NL Results/Procedures Lab Laboratory Tests 06/19/18 16:12: Glucometer 123H 06/19/18 21:07: Glucometer 106 06/20/18 04:35: White Blood Count 11.2H, Red Blood Count 3.53L, Hemoglobin 10.5L, Hematocrit 33L , Mean Corpuscular Volume 95, Mean Corpuscular Hemoglobin 30, Mean Corpuscular Hemoglobin Concent 31L, Red Cell Distribution Width 15.9H, Platelet Count 199, Mean Platelet Volume 10.7H, Neutrophils (%) (Auto) 71, Lymphocytes (%) (Auto) 13 , Monocytes (%) (Auto) 14H, Eosinophils (%) (Auto) 3, Basophils (%) (Auto) 0, Neutrophils # (Auto) 7.9H, Lymphocytes # (Auto) 1.4, Monocytes # (Auto) 1.6H, Eosinophils # (Auto) 0.3, Basophils # (Auto) 0.0, Sodium Level 139, Potassium Level 3.9, Chloride Level 102, Carbon Dioxide Level 26, Anion Gap 11, Blood Urea Nitrogen 27H, Creatinine 1.07, Estimat Glomerular Filtration Rate > 60, BUN /Creatinine Ratio 25, Glucose Level 105, Calcium Level 9.1, Corrected Calcium 10.0, Total Bilirubin 0.3, Aspartate Amino Transf (AST/SGOT) 27, Alanine Aminotransferase (ALT/SGPT) 25, Alkaline Phosphatase 94, Total Protein 7.3, Albumin 2.9L 06/20/18 05:26: Glucometer 112H 06/20/18 11:14: Glucometer 203H Microbiology 06/15/18 Blood Culture - Preliminary, Resulted No growth 06/17/18 MRSA Screen - Final, Complete 06/15/18 Urine Culture - Final, Complete NO GROWTH Assessment/Plan Assessment/Plan (1) COPD (chronic obstructive pulmonary disease) Status: Chronic Assessment & Plan: - Continue to titrate oxygen as tolerated, MAT protocol 06/17: discussed the importance of using Aerobike and IS 06/20: Encourage sitting up and ambulation, Make sure you are using your Aerobike every hrs, Titrate oxygen as tolerate Qualifiers: Qualified Codes: J44.9 - Chronic obstructive pulmonary disease, unspecified (2) Renal calculus, left Status: Acute Assessment & Plan: 06/15: Stent in place at this time from admission at [facility] , urology consulted 06/16- Continue IV antibiotics, stent draining clear urine 06/17: Plan for Lithotrypsy tomorrow with Dr Ely 06/18: Surgery done today 06/19: Surgery successful with moving stones, Dr Ely will see patient next week in clinic (3) Debility Status: Acute Assessment & Plan: - SW consulted, patient will needs placement to SNF but and daughter desire Home with HH Patient up to chair and requires assist x1 (4) Pyelonephritis Status: Acute Assessment & Plan: - IV antibiotics (5) Acute renal insufficiency Status: Resolved Assessment & Plan: - Will continue to monitor with gentle hydration (6) CAD (coronary artery disease) Status: Chronic Qualifiers: Qualified Codes: I25.10 - Atherosclerotic heart disease of [place] coronary artery without angina pectoris (7) Paroxysmal atrial fibrillation Status: Chronic Assessment & Plan: 06/16- Continue rate control medications (8) HTN (hypertension) Status: Acute Assessment & Plan: - Continue home meds Qualifiers: Qualified Codes: I10 - Essential (primary) hypertension (9) Diabetes mellitus, type 2 Status: Chronic Assessment & Plan: - Accucheck AC/HS Qualifiers: (10) DVT prophylaxis Status: Acute Assessment & Plan: - SCDs due to hematuria Clinical Quality Measures DVT/VTE Risk/Contraindication: Risk Factor Score Per Nursin RFS Level Per Nursing on Admit: 4+=Very High NAE BERMEO MD Jun 20, 2018 13:35
[2018-06-20 15:40] VITALS: BP 108/68
[2018-06-20 20:00] VITALS: BP 108/68
[2018-06-21] VITALS: BP 102/56
[2018-06-21 04:00] VITALS: BP 130/54
[2018-06-21] MEDS: PANTOPRAZOLE 40 MG (PROTONIX) TAB PO SCH (05:58)
[2018-06-21 08:00] VITALS: BP 131/60
--- NOTE | 2018-06-21 09:00 | Physical Therapy Daily Note ---
PT Daily Note-Current Subjective Pt reports feeling ok today. Denies any pain and agreeable to work with Physical Therapy this am Pain Numeric Pain Scale: 0-No Pain Appearance Pt sitting up in recliner resting with eyes closed but easily aroused at beginning of PT session. Family member present in room with patient At end of session pt in recliner with LE's elevated and call button within reach and all needs met. Family member still present. Mental Status Attachments: Drains left post thoracic region Transfers Functional [place] Measure 0=Not Assessed/NA 4=Minimal Assistance 1=Total Assistance 5=Supervision or Setup 2=Maximal Assistance 6=Modified [place] 3=Moderate Assistance 7=Complete IndependenceIRFPAI Quality Coding Scale 6 Independent with activity with or without an assistive device 5 Patient requires set up or clean up by helper. Patient completes activity by themselves 4 Supervision or touching assist (CGA). [place] provide cues , steadying assist 3 The helper provides less than half the effort to complete the activity 2 The helper provides more than half the effort to complete the activity 1 Dependent. The helper does all the effort to complete an activity 7 Patient refused to complete or attempt activity 9 The patient did not perform the activity before the current illness or injury 88 Not attempted due to Medical conditions or safety concerns Transfers (B, C, W/C) (FIM): 6 Scootin Sit to/from Stand: 6 Pt performing transitions well. Did require re instruction x1 for safety and hand placement when sitting back down into chair from FWW Weight Bearing Right Lower Extremity: Right Weight Bearing/Tolerated Left Lower Extremity: Left Weight Bearing/Tolerated Gait Training Distance (FIM): 8=754-09 ft Distance: 100 Gait Level of Assist: 5 Gait Persons Needed: 1 Gait Assistive Device: FWW kyphotic posture with left lateral head tilt, steady but slow, requiring brief standing rest break Exercises Standing: Sit to Stand Standing Reps: 10 rest breaks required, verb instruction required x1 episode for reaching back to safely sit Treatments gait and transfer training Assessment Current Status: Good Progress able to increase distance with gait PT Fpc Goals Tong Hooker Goals PT Tong Hooker Goals Time Frame: Jun 19, 2018 Transfers (B,C,W/C) (FIM): 6 Gait (FIM): 5 Gait distance (FIM): 0=392-62 ft Gait Assistive Device: FWW PT Plan Problem List Problem List: Activity Tolerance, Functional Strength, Safety, Gait, Transfer Treatment/Plan Treatment Plan: Continue Plan of Care Treatment Plan: Bed Mobility, Education, Functional Activity [place], Functional Strength, Gait, Safety, Therapeutic Exercise, Transfers Treatment Duration: Jun 29, 2018 Frequency: 6 times per week Estimated Hrs Per Day: .25 hour per day Patient and/or Family Agrees t: Yes Safety Risks/Education Patient Education: Gait Training, Transfer Techniques, Safety Issues Teaching Recipient: Patient Teaching Methods: Demonstration, Discussion Response to Teaching: Verbalize Understanding, Return Demonstration, Reinforcement Needed Time/GCodes Time In: 825 Time Out: 840 Total Billed Treatment Time: 15 Total Billed Treatment 1 Visit GT x1 CHRISTIE JOINER DIRECTOR INFORMATION SECURITY Jun 21, 2018 09:00
[2018-06-21] MEDS: meTOprolol TARTRATE 25 MG (LOPRESSOR) TABLET PO SCH (09:53)
[2018-06-21] MEDS: AMIODARONE 200 MG (CORDARONE) TAB PO SCH (09:53)
[2018-06-21] MEDS: DIGOXIN 0.125 MG (LANOXIN) TAB PO SCH (09:53)
[2018-06-21] MEDS: MEXILETINE 150 MG (MEXITIL) CAPSULE PO SCH (09:53)
[2018-06-21] MEDS: FUROSEMIDE 40 MG (LASIX) TAB PO SCH (09:53)
--- NOTE | 2018-06-21 12:05 | Discharge Summary ---
Diagnosis/Chief Complaint Date of Admission Jun 15, 2018 at 5:20 am Date of Discharge 06/21/18 Admission Diagnosis Admission Diagnosis Renal Stones Pyelonephritis Acute respiratory distress NIDDM HTN CAD Debility Atrial Fibrillation Discharge Diagnosis See below Problems/Diagnosis: (1) COPD (chronic obstructive pulmonary disease) Assessment & Plan: - Continue to titrate oxygen as tolerated, MAT protocol 06/17: discussed the importance of using Aerobike and IS 06/20: Encourage sitting up and ambulation, Make sure you are using your Aerobike every hrs, Titrate oxygen as tolerate Qualifiers: Qualified Codes: J44.9 - Chronic obstructive pulmonary disease, unspecified Status: Chronic (2) Renal calculus, left Assessment & Plan: 06/15: Stent in place at this time from admission at [facility] , urology consulted 06/16- Continue IV antibiotics, stent draining clear urine 06/17: Plan for Lithotrypsy tomorrow with Dr Ely 06/18: Surgery done today 06/19: Surgery successful with moving stones, Dr Ely will see patient next week in clinic Status: Acute (3) Debility Assessment & Plan: - SW consulted, patient will needs placement to SNF but and daughter desire Home with HH Patient up to chair and requires assist x1 Status: Acute (4) Pyelonephritis Assessment & Plan: - IV antibiotics Status: Acute (5) Acute renal insufficiency Assessment & Plan: - Will continue to monitor with gentle hydration Status: Resolved Resolution Date/Time: 06/16/18 @ 17:54 (6) CAD (coronary artery disease) Qualifiers: Qualified Codes: I25.10 - Atherosclerotic heart disease of [place] coronary artery without angina pectoris Status: Chronic (7) Paroxysmal atrial fibrillation Assessment & Plan: 06/16- Continue rate control medications Status: Chronic (8) HTN (hypertension) Assessment & Plan: - Continue home meds Qualifiers: Qualified Codes: I10 - Essential (primary) hypertension Status: Acute (9) Diabetes mellitus, type 2 Assessment & Plan: - Accucheck AC/HS Qualifiers: Status: Chronic (10) DVT prophylaxis Assessment & Plan: - SCDs due to hematuria Status: Acute Chief Complaint/HPI Chief Complaint/HPI 78 yo M with multiple co morbid conditions that presented to ER after discharge from [facility] yesterday with HH. states that she is unable to care for him at home. She did not get any teaching on his stent and she does not feel comfortable with caring for it. Patient states that he started to have chills yesterday. They had not gone to shrimp picker his antibiotics and he stated that he just was not feeling well. states that she made him dinner and he did not eat his normal amount. States that he is still having pain in his left flank. States that he has been having some more shortness of breath the last few days. Discharge Summary-Simple/Stand Procedures 06/[address] Ely, Urology Dr Judd, Cardiology Discharge Physical Examination Allergies: Coded Allergies: Penicillins (Verified Allergy, Severe, HIVES, SOB, 01/04/18) codeine (Verified Allergy, Severe, SOB, HIVES, 01/04/18) Vitals & I&Os Vital Sign - Last 12Hours Date Time Temp Pulse Resp B/P (MAP) Pulse Ox O2 Delivery O2 Flow Rate FiO2 06/21/18 08:00 97.3 91 18 131/60 (83) 92 Room Air 06/20/18 12:00 1.00 06/19/18 09:30 32 Intake and Output 06/21/18 00:00 Intake Total 900 ml Output Total 575 ml Balance 325 ml General Appearance: Alert, Oriented X3, Cooperative, No Acute Distress HEENT: Mucous Memb Moist/[place] Respiratory: Normal Air Movement, Other (diminished breath sounds, normal work of breathing) Cardiovascular: Regular Rate, No Murmurs Abdominal: Normal Bowel Sounds, Soft, No Tenderness, No Masses Extremities: No Edema, No Tenderness/Swelling Skin: No Rashes, Other (Stent placed in left flank) Neuro: Normal Speech, Sensation Intact, Cranial Nerves 3-12 NL Psych/Mental Status: Mental Status NL, Mood NL Hospital Course See final discharge diagnosis. Discussion & Recommendations 78 yo M that presented to ER following discharged from [facility]. Patient underwent lithotripsy that was successful. Discussed in depth with patient and regarding returning home and the concerns. and daughter discussed that they did not want the patient to go to [place] for rehab and that they could care for him at home with HH. Patient to be discharged home with . Discharge Condition at discharge Guarded Instructions to patient/family Please see electronic discharge instructions given to patient. Discharge Medications Reviewed and agree with Discharge Medication list on patient's Discharge Instruction sheet Clinical Quality Measures DVT/VTE Risk/Contraindication: Risk Factor Score Per Nursin RFS Level Per Nursing on Admit: 4+=Very High Copy Copies To 1: ABHINAV GONZALEZ MD, HOLLY R MD Jun 21, 2018 12:04
--- NOTE | 2018-06-21 12:10 | D/C HH Face to Face Order ---
D/C Face to Face Orders Instructions for Patient Via [facility], Patient Instructions/FollowUp: You have a followup with Dr Ely You will be called with a follow up appt for next week Physician to follow Patient: Tate Discharge Diet for Home: ADA Diet Patient Problems: Nephrolithiasis Pyelonephritis Atelectasis DM HTN Atrial fibrillation Goals for Patient: - Strengthening of LE - Gain more independence Patient Data-Allergies,Ht & Wt Patient Allergies: Coded Allergies: Penicillins (Verified Allergy, Severe, HIVES, SOB, 01/04/18) codeine (Verified Allergy, Severe, SOB, HIVES, 01/04/18) Height (Feet): 5 Height (Inches): 5.00 Weight (Pounds): 190 Weight (Ounces): 5.0 Home Health Need/Face to Face Date of Face to Face: Jun 21, 2018 Clinical Findings: Generalized weakness and fatigue, Instability, Muscle weakness, Shortness of breath, Unsteady gait I have seen Pt [id number]: Yes Discharged To: Home Diagnosis/Conditions: See Above Patient is Homebound due to: Reji fall risk due to instabilty, Muscle weakness , Shortness of breath/distress Homebound Status Due to the above stated illness, injury or surgical procedure (medical condition or diagnosis) and associated clinical findings, the patient is homebound because of his/her inability to leave home except with aid of a supportive device and/or person AND leaving the home requires a considerable and taxing effort or is medically contraindicated. Pt req the following assistanc: Aid of another person, [facility] Health Nursing Orders Home Health Services Order: Nursing Services, [employer] General Supervisor-Evaluate & Treat, Physical Therapy-Evaluate & Treat, Wound Care-Eval/Treat Home Health Infusion Therapy Line Start Date: Jun 15, 2018 Line Start Time: 0425 Site Location: Wrist Certify Stmt I certify that this patient is under my care and that I, a nurse practitioner or a physician; a assistant store manager trainee working with me, had a face to face encounter that - meets the physician face to face encounter requirements with this patient as dated. NAE BERMEO MD Jun 21, 2018 12:10 pm
[2018-06-21 13:15] VITALS: BP 131/60
== END 2018-06-21 13:15 | disposition home health service (06) | DRG 691 ==
LOC: EDUNIT# 03:38 → ER 03:39 → 4TH 05:20
PROVIDERS: ADMIT Family Medicine; ATTEND Family Medicine
PROC: 0TF7XZZ Fragmentation in Left Ureter, External Approach (ICD-10-PCS; principal; 2018-06-18 13:00)
PROC: BT121ZZ Fluoroscopy of Left Kidney using Low Osmolar Contrast (ICD-10-PCS; 2018-06-18 13:00)
DX: N20.2 Calculus of kidney with calculus of ureter (principal); N21.0 Calculus in bladder; N10 Acute pyelonephritis; R06.03 Acute respiratory distress; J44.9 Chronic obstructive pulmonary disease, unspecified; Z97.8 Presence of other specified devices; N28.9 Disorder of kidney and ureter, unspecified; I25.10 Atherosclerotic heart disease of native coronary artery without angina pectoris; I48.0 Paroxysmal atrial fibrillation; I25.5 Ischemic cardiomyopathy; I11.0 Hypertensive heart disease with heart failure; I50.9 Heart failure, unspecified; E78.00 Pure hypercholesterolemia, unspecified; E11.40 Type 2 diabetes mellitus with diabetic neuropathy, unspecified; E11.51 Type 2 diabetes mellitus with diabetic peripheral angiopathy without gangrene; K21.9 Gastro-esophageal reflux disease without esophagitis; H40.9 Unspecified glaucoma; F32.9 Major depressive disorder, single episode, unspecified; E86.0 Dehydration; E87.6 Hypokalemia; E83.42 Hypomagnesemia; I87.2 Venous insufficiency (chronic) (peripheral); I70.201 Unspecified atherosclerosis of native arteries of extremities, right leg; R53.81 Other malaise; I25.2 Old myocardial infarction; Z93.6 Other artificial openings of urinary tract status; Z87.891 Personal history of nicotine dependence; Z95.5 Presence of coronary angioplasty implant and graft; Z95.1 Presence of aortocoronary bypass graft; Z95.810 Presence of automatic (implantable) cardiac defibrillator
CPT/HCPCS: 36415; 71045; 71046; 74018; 80053; 80162; 81000; 82962; 83605; 83735; 83880; 84484; 85025; 85610; 85730; 87040; 87081; 87088; 87804; 93005; 93041; 94640; 94664; 94760; 94761; 96361; 96365; 96367

== ENCOUNTER → 2018-06-28 | Outpatient (CLI) | payer MEDICARE, MEDICAID ==
[~2018-06-28] MED LIST changes: +CIPR-225 PO; +HYDR-3870 PO; +IOHEXOL 240 MGI/ML 20 ML (OMNIPAQUE) VIAL IV ONE
--- NOTE | 2018-06-28 09:53 | Diagnostic Imaging Report ---
PROCEDURE: CT abdomen and pelvis without contrast. TECHNIQUE: Multiple contiguous axial images were obtained through the abdomen and pelvis without the use of intravenous contrast. INDICATION: Left ureteral stone. COMPARISON: Comparison is made with prior CT from 06/08/2018. FINDINGS: The lung bases are clear. The liver is unremarkable. No biliary ductal dilatation is seen. The pancreas and spleen are unremarkable. No adrenal mass is detected. The right kidney is stable with exophytic cyst arising from the upper pole. Staghorn calculus in the left kidney is again seen. A percutaneous nephrostomy tube has been placed on the left since prior CT. Previously noted calculus in the mid left ureter appears to have passed or been fragmented and is located in the bladder. There is a second calculus still present in the proximal left ureter. This calculus measures 13 mm cephalocaudal x 6 mm transverse x approximately 7 mm AP. This is located just distal to the UPJ. No other ureteral calculi are detected. Numerous calcific densities in the bladder are noted consistent with calculus fragments. The dominant calculus previously seen is no longer visualized. IMPRESSION: Status post left percutaneous nephrostomy tube placement as well as lithotripsy. One dominant calculus in the mid to distal left ureter seen on exam from 06/08/2018 has passed. There continues to be a residual calculus in the proximal left ureter, as described. Staghorn calculus in the left kidney is also seen. Hydronephrosis has improved. There are bilateral renal cysts. Dictated by: Dictated on workstation # [id number]
--- NOTE | 2018-06-28 10:34 | Diagnostic Imaging Report ---
INDICATION: Left ureteral stone. Patient is status post percutaneous nephrostomy tube placement and lithotripsy. TECHNIQUE: The patient was brought to the procedure room and placed on the table in the prone position. Contrast was injected into the patient's indwelling left percutaneous nephrostomy tube and fluoroscopic imaging over the abdomen was performed. 1 minute and 29 seconds of fluoroscopy was utilized. FINDINGS: Contrast is seen within the left renal collecting system. There is prompt passage of contrast into the left ureter. There is a large filling defect in the proximal left ureter corresponding to the large calculus noted on the CT of the same day. Contrast does freely pass around the calculus into the mid and distal left ureter with flow of contrast into the bladder. There are some filling defects within lower pole calyces of the left kidney as well, consistent with the known staghorn calculi. IMPRESSION: Left renal and proximal left ureteric calculi. Contrast does pass freely around the proximal left ureteric calculus into the distal ureter and bladder. Dictated by: Dictated on workstation # [id number]
== END ==
LOC: RAD 08:42
PROVIDERS: ATTEND Urology
DX: N13.2 Hydronephrosis with renal and ureteral calculous obstruction (principal); N28.1 Cyst of kidney, acquired; Z93.6 Other artificial openings of urinary tract status
CPT/HCPCS: 50431; 74176; 74425

== ENCOUNTER 2018-07-02 06:00 | Outpatient (CLI) | payer MEDICARE, MEDICAID ==
[~2018-07-02] VITALS: Ht 165.1 cm; Wt 86.2 kg
[~2018-07-02 06:00] MED LIST changes: -CIPR-225 PO; -HYDR-3870 PO; -IOHEXOL 240 MGI/ML 20 ML (OMNIPAQUE) VIAL IV ONE
[2018-07-03] MEDS ORDERED: TAMS0.4C98 PO (11:54)
[2018-07-03] MEDS ORDERED: HYDR-3870 PO (11:54)
[2018-07-03] MEDS ORDERED: CIPR-225 PO (11:54)
== END 2018-07-02 14:14 | disposition home or self-care (01) ==
LOC: PREOP 06:00
PROVIDERS: ATTEND Urology
DX: Z01.818 Encounter for other preprocedural examination (principal)

== ENCOUNTER 2018-07-03 08:10 | Day surgery (SDC) | payer MEDICARE, MEDICAID ==
[~2018-07-03] VITALS: Ht 165.1 cm; Wt 86.2 kg
[2018-07-03] MEDS ORDERED: LACTATED RINGERS 1,000 ML IV PRN (08:22)
[2018-07-03] MEDS ORDERED: cefTRIAXone FOR IV USE 1,000 MG in NS (IVPB) 50 ML IV ONE (08:30)
--- NOTE | 2018-07-03 08:35 | Progress Note-Pre Operative ---
Pre-Operative Progress Note H&P Reviewed The H&P was reviewed, patient examined and no changes noted. Date Seen by Provider: Jul 03, 2018 Time Seen by Provider: 08:34 Date H&P Reviewed: Jul 03, 2018 Time H&P Reviewed: 08:35 Pre-Operative Diagnosis: LT PROXIMAL AND LT RENAL STONES TREVIN RIZZO MD Jul 03, 2018 08:35
[2018-07-03 08:36] VITALS: BP 140/89
--- NOTE | 2018-07-03 08:49 | Diagnostic Imaging Report ---
PATIENT HISTORY: Preop, left renal stones. TECHNIQUE: Frontal view of the abdomen. COMPARISON: CT from 06/28/2018. FINDINGS: A nephrostomy tube is noted on the left. Multiple calculi are seen in the superior and inferior left kidney. There is a questionable 1.6 cm calculus just medial to the inferior pole of the left kidney. Multiple phleboliths are noted in the pelvis. There is calcific atherosclerosis present. There are moderate degenerative changes in the bilateral hip joints. There is internal fixation of the proximal left femur with heterotopic ossification. No evidence of bowel obstruction or large collection of free air is seen. IMPRESSION: Left nephrostomy tube with multiple left renal calculi. Questionable calculus in the proximal left ureter. Dictated by: Dictated on workstation # [id number]
[2018-07-03] MEDS ORDERED: KETOROLAC 30 MG/ML VIAL ONE (09:10)
[2018-07-03] MEDS ORDERED: SEVOFLURANE (ULTANE) 15 ML INHAL SOLN ONE (09:10)
[2018-07-03] MEDS ORDERED: proPOfol 200 MG/20 ML (DIPRIVAN) VIAL IV ONE (09:10)
[2018-07-03] MEDS ORDERED: FUROSEMIDE 40 MG/4 ML INJ (LASIX) ONE (09:10)
[2018-07-03] MEDS ORDERED: DEXAMETHASONE 10 MG/ML (DECADRON) 1 ML VIAL ONE (09:10)
[2018-07-03] MEDS ORDERED: LIDOCAINE PF 2% 5 ML (XYLOCAINE) VIAL ONE (09:10)
[2018-07-03] MEDS ORDERED: ONDANSETRON 4 MG/2 ML (SDV) Z0FRAN ONE (09:10)
[2018-07-03] MEDS ORDERED: fentaNYL INJECTION 100 MCG/2 ML AMP ONE (09:11)
[2018-07-03] MEDS ORDERED: PHENYLEPHRINE 100 MCG/ML 10 ML (ANESTHESIA) SYR ONE (10:07)
--- NOTE | 2018-07-03 10:08 | Discharge Inst-Urology ---
Discharge Inst-Urology Discharge Medications New, Converted, or Re-newed RX: RX on Chart Patient Instructions/Follow Up Plan Please make appointment to been seen in office Sunday, KUB prior to it KUB on way home Post ESWL instructions Increase oral fluids for 48 hours and then as needed. Diet and Activity as tolerated. If questions or concerns contact your physician Or seek help at emergency department. TREVIN RIZZO MD Jul 03, 2018 10:08
--- NOTE | 2018-07-03 10:10 | Progress Note-Post Operative ---
Post-Operative Progess Note Surgeon (s)/Dredge Worker (s) Surgeon TREVIN RIZZO MD Dredge Worker: none Pre-Operative Diagnosis LT PROXIMAL AND LT RENAL STONES Post-Operative Diagnosis same Procedure & Operative Findings Date of Procedure 07/03/18 Procedure Performed/Findings LT NEPHROSTOGRAM AND LT ESWL Anesthesia Type GENERAL Estimated Blood Loss Estimated blood loss (mL): NONE Specimens/Packing Specimens Removed NONE Packing: NONE TREVIN RIZZO MD Jul 03, 2018 10:10
[2018-07-03] MEDS ORDERED: morphine INJ 10 MG/ML 1ML (SYR OR VIAL) IVP ONE (10:45)
[2018-07-03] MEDS ORDERED: ONDANSETRON 4 MG/2 ML (SDV) Z0FRAN IVP PRN (10:45)
[2018-07-03 11:35] VITALS: BP 118/80
[2018-07-03] MEDS ORDERED: TAMS0.4C98 PO (11:54)
[2018-07-03] MEDS ORDERED: HYDR-3870 PO (11:54)
[2018-07-03] MEDS ORDERED: CIPR-225 PO (11:54)
[2018-07-03 12:05] VITALS: BP 134/85
--- NOTE | 2018-07-03 12:10 | OPERATIVE REPORT ---
DATE OF SERVICE: 07/03/2018 PREOPERATIVE DIAGNOSES: Left proximal ureteral renal and bladder stones. POSTOPERATIVE DIAGNOSES: Left proximal ureteral renal and bladder stones. OPERATION PERFORMED: Left nephrostogram and left ESWL. SURGEON: Samuel Rizzo MD. ANESTHESIA: General. COMPLICATIONS: None. DESCRIPTION OF PROCEDURE: Under satisfactory general anesthesia, the patient in supine position on the ESWL table, we did a nephrostogram to visualize the stone in the proximal ureter and usually get on and off during surgery. The stones were localized. Shocks were delivered at kV of 5. A total of 3000 shocks were delivered with good results and clearance of the contrast easily. The patient received 40 mg of Lasix and 50 mg of Toradol IV at the end of the procedure. He tolerated the procedure and anesthesia well and was sent to recovery room in stable condition. Job ID: [id number] DocumentID: [id number] Dictated Date: 07/03/2018 10:27:08 Insulation Board Back Tender Date: 07/03/2018 12:09:32 Dictated By: SAMUEL RIZZO MD
[2018-07-03 12:35] VITALS: BP 132/83
[2018-07-03 13:35] VITALS: BP 134/90
--- NOTE | 2018-07-03 13:41 | Anesthesia-General Post-Op ---
General Patient Condition Mental Status/LOC: Same as Preop Cardiovascular: Satisfactory Nausea/Vomiting: Absent Respiratory: Satisfactory Pain: Controlled Complications: Absent Post Op Complications Complications None Follow Up Care/Instructions Patient Instructions None needed. Anesthesia/Patient Condition Patient Condition Patient is doing well, no complaints, stable vital signs, no apparent adverse anesthesia problems. SIVAN VIZCARRA DO Jul 03, 2018 13:41
[2018-07-03 14:00] VITALS: BP 134/90
--- NOTE | 2018-07-03 14:43 | Diagnostic Imaging Report ---
INDICATION: Status post ESWL. COMPARISON: Earlier same day. FINDINGS: Two supine radiographic views of the abdomen were obtained. Indwelling left-sided percutaneous nephrostomy tube is again identified and is in stable position. Note is also again made of bulky left-sided nephrolithiasis. Overall, appearance has not significantly changed compared to earlier same day. Small bowel loops are nondistended. No unexpected radiopaque foreign bodies are seen. Contrast is now noted within the urinary bladder. IMPRESSION: 1. Left-sided nephrolithiasis with indwelling percutaneous nephrostomy tube. There has been no significant interval change when compared to earlier same day. Dictated by: Dictated on workstation # [id number]
== END 2018-07-03 14:00 | disposition home or self-care (01) ==
LOC: SDC 08:10
PROVIDERS: ATTEND Urology
DX: N20.1 Calculus of ureter (principal); N21.0 Calculus in bladder; I25.10 Atherosclerotic heart disease of native coronary artery without angina pectoris; I11.0 Hypertensive heart disease with heart failure; I50.9 Heart failure, unspecified; I48.91 Unspecified atrial fibrillation; J44.9 Chronic obstructive pulmonary disease, unspecified; J45.909 Unspecified asthma, uncomplicated; G47.33 Obstructive sleep apnea (adult) (pediatric); F03.90 Unspecified dementia, unspecified severity, without behavioral disturbance, psychotic disturbance, mood disturbance, and anxiety; K21.9 Gastro-esophageal reflux disease without esophagitis; G62.9 Polyneuropathy, unspecified; Z95.1 Presence of aortocoronary bypass graft; Z95.5 Presence of coronary angioplasty implant and graft; Z95.810 Presence of automatic (implantable) cardiac defibrillator; Z79.899 Other long term (current) drug therapy
CPT/HCPCS: 74018; 87081

== ENCOUNTER 2018-07-06 21:59 | Emergency (ER) | payer MEDICARE, MEDICAID ==
[~2018-07-06] VITALS: Ht 175.3 cm; Wt 83.9 kg
[~2018-07-06 21:59] MED LIST changes: +CIPR-225 PO; +HYDR-3870 PO
[2018-07-06] MEDS ORDERED: NS IV 1000 ML 1,000 ML IV SCH (22:05)
[2018-07-06] MEDS ORDERED: NS IV 500 ML 500 ML IV ONE (22:05)
[2018-07-06] MEDS ORDERED: cefTRIAXone FOR IV USE 1,000 MG in NS (IVPB) 50 ML IV ONE (22:15)
--- NOTE | 2018-07-06 22:15 | ED GU-Male ---
General Stated Complaint: RENAL TUBE PROBLEM Source: patient, EMS Exam Limitations: no limitations History of Present Illness Date Seen by Provider: Jul 06, 2018 Time Seen by Provider: 22:00 Initial Comments Patient presents to ER by EMS with chief complaint that just prior to arrival he accidentally pulled the nephrostomy tube out. There is no bleeding or drainage from the site. He denies any fevers chills or significant pain. He has had a productive cough last couple days. EMS reports an elevated temperature of 99.8. Patient is not a diabetic. Nephrostomy was placed because a history of kidney stones. He is followed by Dr. Rizzo, urology. Is still able to urinate without pain or blood in his urine. Bowels are moving normally. No abdominal pain. Allergies and Home Medications Allergies Coded Allergies: Penicillins (Verified Allergy, Severe, HIVES, SOB (Pt has received Cefepime & Ceftriaxone), 07/03/18) codeine (Verified Allergy, Severe, SOB, HIVES, 01/04/18) Home Medications Albuterol Sulfate 18 Gm Hfa.aer.ad, 2 PUFF IH QID PRN for SHORTNESS OF BREATH, ( Reported) Albuterol Sulfate 1.25 Mg/3 Ml Vial.neb, 1.25 MG NEB BID, (Reported) Amiodarone HCl 200 Mg Tablet, 200 MG [facility], ([facility]) Amiodarone HCl 200 Mg Tablet, 400 [facility], ([facility]) take 2 (200mg) tabs Ciprofloxacin HCl 500 Mg Tablet, 500 MG PO BID Prescribed by: AMANDO KELLER on 07/03/18 1154 Digoxin 125 Mcg Tablet, 125 MCG PO DAILY, (Reported) Esomeprazole Magnesium 40 Mg Capsule.dr, 40 MG PO DAILY, (Reported) Furosemide 40 Mg Tablet, 40 MG PO 0900,1500, (Reported) Hydrocodone/Acetaminophen 1 Each Tablet, 1-2 EACH PO Q6H PRN for PAIN-MODERATE Prescribed by: AMANDO KELLER on 07/03/18 1154 Metoprolol Tartrate 50 Mg Tablet, 25 MG PO BID, (Reported) TAKES 1/2 OF A (50 MG) TABLET Mexiletine HCl 150 Mg Cap, 150 MG PO TID, (Reported) Potassium Chloride 8 Meq Tablet.er, 16 MEQ PO DAILY, (Reported) TAKES 2 (8MEQ) TABLETS Tamsulosin HCl 0.4 Mg Cap, 0.4 MG PO DAILY Prescribed by: AMANDO KELLER on 07/03/18 1154 Patient Home Medication List Home Medication List Reviewed: Yes Review of Systems Review of Systems Constitutional: No chills, No diaphoresis EENTM: No hearing loss, No ear pain Respiratory: cough; No dyspnea on exertion; phlegm; No short of breath, No wheezing Cardiovascular: No chest pain, No edema Gastrointestinal: see HPI; No abdominal pain, No constipation, No diarrhea Genitourinary: see HPI; denies burning, denies discharge, denies dysuria, denies frequency, denies flank pain Musculoskeletal: No back pain, No joint pain Skin: No pruritus, No rash Psychiatric/Neurological: Denies Headache, Denies Numbness Past Uvahcya-Lhdxud-Fujzfh Hx Patient Social History Alcohol Use: Denies Use Recreational Drug Use: No Smoking Status: Former Smoker Type Used: Cigarettes Former Smoker, Quit: Jul 30, 1992 2nd Hand Smoke Exposure: No Recent Foreign Travel: No Contact w/Someone Who Travel: No Recent Hopitalizations: No Immunizations Up To Date Tetanus Booster (TDap): More than 5yrs Date of Pneumonia Vaccine: Apr 29, 2014 Date of Influenza Vaccine: May 08, 2018 Seasonal Allergies Seasonal Allergies: No Past Medical History Surgeries: Yes Cardiac, CABG, Coronary Stent, Defibrillator, Eye Surgery, Orthopedic, Renal Respiratory: Yes (O2 3L/NC AT HS; CHRONIC RESPIRATORY FAILURE) Asthma, Pneumonia, Chronic Bronchitis, Sleep Apnea, COPD Currently Using CPAP: No Currently Using BIPAP: No Cardiac: Yes Cardiomyopathy, Chronic Edema/Swelling, Coronary Artery Disease, Heart Attack, High Cholesterol, Hypertension, Irregular Heartbeat Neurological: Yes Dementia, Neuropathy Reproductive Disorders: Yes (unable to have children- mumps as a child) Sexually Transmitted Disease: No HIV/AIDS: No Genitourinary: Yes Kidney Infection, Bladder Infection, Kidney Stones Gastrointestinal: Yes Gastroesophageal Reflux, Ulcer Musculoskeletal: Yes (POOR MOBILITY; LEFT HIP FRACTURE) Arthritis, Fractures Endocrine: Yes Diabetes, Insulin dep HEENT: Yes Cataract, Glaucoma Loss of Vision: Bilateral Hearing Impairment: Hard of Hearing Cancer: Yes Skin Did You Recieve Any Treatments: Yes What Type of Treatment Did You: Surgical Intervention Psychosocial: Yes Depression Integumentary: Yes (shingles , SKIN CANCER; LEG CELLULITIS/ STASIS DERMATITIS) Blood Disorders: No Adverse Reaction/Blood Tranf: No Family Medical History Cardiovascular disease 19 MOTHER G8 BROTHER G8 SISTER Cervical cancer 19 MOTHER Heart Disease Physical Exam Vital Signs Vital Signs - First Documented 07/06/18 22:00 Temp 98.4 Pulse 90 Resp 20 B/P (MAP) 133/74 (93) Pulse Ox 96 O2 Delivery Room Air Capillary Refill : Height, Weight, BMI Height: 5'5.00" Weight: 190lbs. 0.0oz. 86.780282lf; 31.6 BMI Method:Stated General Appearance: WD/WN, no apparent distress HEENT: PERRL/EOMI, normal ENT inspection, pharynx normal Neck: non-tender, full range of motion Cardiovascular: normal peripheral pulses, regular rate, rhythm Respiratory: chest non-tender, no respiratory distress, no accessory muscle use , rhonchi (bilateral); No wheezing Gastrointestinal: normal bowel sounds, non tender, soft Back: other (small punctate nephrostomy without any erythema, induration or discharge) Extremities: normal inspection, normal capillary refill Neurologic/Psychiatric: alert, normal mood/affect, oriented x 3 Focused Exam Lactate Level 07/06/18 22:08: Lactic Acid Level 1.33 Lactic Acid Level Laboratory Tests Test 07/06/18 22:08 Lactic Acid Level 1.33 MMOL/L (0.50-2.00) Progress/Results/Core Measures Suspected Sepsis SIRS Temperature: Pulse: Respiratory Rate: Laboratory Tests 07/06/18 22:08: White Blood Count 20.3H Blood Pressure / Mean: 07/06/18 22:08: Lactic Acid Level 1.33 Laboratory Tests 07/06/18 22:08: Creatinine 1.16, INR Comment 1.3, Platelet Count 181, Total Bilirubin 1.0 Results/Orders Lab Results Laboratory Tests Test 07/06/18 22:08 07/06/18 22:45 Range/Units White Blood Count 20.3 H 4.3-11.0 10^3/uL Red Blood Count 3.68 L 4.35-5.85 10^6/uL Hemoglobin 10.9 L 13.3-17.7 G/DL Hematocrit 33 L 40-54 % Mean Corpuscular Volume 90 80-99 FL Mean Corpuscular Hemoglobin 30 25-34 PG Mean Corpuscular Hemoglobin Concent 33 32-36 G/DL Red Cell Distribution Width 16.4 H 10.0-14.5 % Platelet Count 181 130-400 10^3/uL Mean Platelet Volume 10.4 7.4-10.4 FL Neutrophils (%) (Auto) 81 H 42-75 % Lymphocytes (%) (Auto) 6 L 12-44 % Monocytes (%) (Auto) 13 H 0-12 % Eosinophils (%) (Auto) 0 0-10 % Basophils (%) (Auto) 0 0-10 % Neutrophils # (Auto) 16.4 H 1.8-7.8 X 10^3 Lymphocytes # (Auto) 1.2 1.0-4.0 X 10^3 Monocytes # (Auto) 2.7 H 0.0-1.0 X 10^3 Eosinophils # (Auto) 0.0 0.0-0.3 10^3/uL Basophils # (Auto) 0.0 0.0-0.1 10^3/uL Neutrophils % (Manual) 76 % Lymphocytes % (Manual) 8 % Monocytes % (Manual) 10 % Eosinophils % (Manual) 0 % Basophils % (Manual) 0 % Band Neutrophils 6 % Blood Morphology Comment NORMAL Prothrombin Time 16.4 H 12.2-14.7 SEC INR Comment 1.3 0.8-1.4 Activated Partial Thromboplast Time 39 H 24-35 SEC Sodium Level 133 L 135-145 MMOL/L Potassium Level 3.9 3.6-5.0 MMOL/L Chloride Level 94 L 98-107 MMOL/L Carbon Dioxide Level 27 21-32 MMOL/L Anion Gap 12 5-14 MMOL/L Blood Urea Nitrogen 20 H 7-18 MG/DL Creatinine 1.16 0.60-1.30 MG/DL Estimat Glomerular Filtration Rate > 60 BUN/Creatinine Ratio 17 Glucose Level 116 H 70-105 MG/DL Lactic Acid Level 1.33 0.50-2.00 MMOL/L Calcium Level 9.4 8.5-10.1 MG/DL Corrected Calcium 10.0 8.5-10.1 MG/DL Total Bilirubin 1.0 0.1-1.0 MG/DL Aspartate Amino Transf (AST/SGOT) 14 5-34 U/L Alanine Aminotransferase (ALT/SGPT) 13 0-55 U/L Alkaline Phosphatase 93 40-136 U/L Total Protein 7.9 6.4-8.2 GM/DL Albumin 3.3 3.2-4.5 GM/DL Urine Color YELLOW Urine Clarity SLIGHTLY CLOUDY Urine pH 6 5-9 Urine Specific [place] 1.015 L 1.016-1.022 Urine Protein 2+ H NEGATIVE Urine Glucose (UA) NEGATIVE NEGATIVE Urine Ketones NEGATIVE NEGATIVE Urine Nitrite NEGATIVE NEGATIVE Urine Bilirubin NEGATIVE NEGATIVE Urine Urobilinogen NORMAL NORMAL MG/DL Urine Leukocyte Esterase 3+ H NEGATIVE Urine RBC (Auto) 5+ H NEGATIVE Urine RBC >100 H /HPF Urine WBC 25-50 H /HPF Urine Crystals NONE /LPF Urine Bacteria FEW H /HPF Urine Casts NONE /LPF Urine Mucus NEGATIVE /LPF Urine Culture Indicated YES My Orders Orders - LAUREL CASTRO Cbc With Automated Diff (07/06/18 22:05) Comprehensive Metabolic Panel (07/06/18 22:05) Blood Culture (07/06/18 22:05) Sputum Culture (07/06/18 22:05) Urinalysis (07/06/18 22:05) Urine Culture (07/06/18 22:05) Protime With Inr (07/06/18 22:05) Partial Thromboplastin Time (07/06/18 22:05) Chest 1 View, Ap/Pa Only (07/06/18 22:05) Saline Lock/Iv-Start (07/06/18 22:05) Saline Lock/Iv-Start (07/06/18 22:05) Vital Signs Adult Sepsis Patie Q15M (07/06/18 22:05) O2 (07/06/18 22:05) Remove Rings In Anticipation O (07/06/18 22:05) Lactic Acid Analyzer (07/06/18 22:05) Ns Iv 1000 Ml (Sodium Chloride 0.9%) (07/06/18 22:05) Ceftriaxone For Iv Use (Rocephin For I (07/06/18 22:15) Saline Lock/Iv-Start (07/06/18 22:05) Ns Iv 500 Ml (Sodium Chloride 0.9%) (07/06/18 22:05) Manual Differential (07/06/18 22:08) Ct Abd/Pelvis Wo(Kidney Stone) (07/06/18 22:29) Urine Culture (07/06/18 22:45) Azithromycin Injection (Zithromax Inject (07/06/18 23:15) Medications Given in ED Current Medications Medications Dose Ordered Sig/Re Route Start Time Stop Time Status Last Admin Dose Admin Azithromycin 500 mg/Sodium Chloride 250 ml @ 250 mls/hr ONCE ONCE IV 07/06/18 23:15 07/07/18 00:14 DC 07/06/18 23:20 250 MLS/HR Ceftriaxone Sodium 1000 mg/ Sodium Chloride 60 ml @ 100 mls/hr ONCE ONCE IV 07/06/18 22:15 07/06/18 22:50 DC 07/06/18 22:19 100 MLS/HR Sodium Chloride 500 ml @ 0 mls/hr Q0M ONCE IV 07/06/18 22:05 07/06/18 22:12 DC 07/07/18 00:00 0 MLS/HR Vital Signs/I&O 07/06/18 07/07/18 22:00 00:20 Temp 98.4 98.4 Pulse 90 90 Resp 20 20 B/P (MAP) 133/74 (93) 126/68 (87) Pulse Ox 96 95 O2 Delivery Room Air Room Air 07/07/18 00:00 Intake Total 1060 ml Balance 1060 ml Capillary Refill : Progress Note #1: Time: :19 Progress Note The patient presents acutely for his nephrostomy displacement but because of his productive cough and adverse breath sounds were going to obtain a chest x- ray cultures and lactate and look for evidence of pneumonia as well. We'll obtain urine specimen by clean catch. Lithotripsy on July 03, [address] Rizzo. Has a history of urethral and renal and bladder stones. Had good results without mention of residual stones. Lithotripsy in and follow-up nephrostogram demonstrates after 3000 shocks delivered they had good clearance of the contrast easily. Progress Note #2: Time: 23:44 Progress Note Patient still has a productive cough elevated white count but no evidence of pneumonia on chest x-ray. We'll cover him with Rocephin and Zithromax would cover for urinary tract infection as well as respiratory. Since he has ureteral obstruction he will need nephrostomy replaced and since we don't have urology on the weekend we will send him back to [facility] where his nephrostomy was placed originally. Diagnostic Imaging Diagonstic Imaging: Xray Plain Films/CT/US/NM/MRI: chest (1v) Comments Left base Has some possible consolidation but is partially obscured by the pacemaker. Reviewed: Reviewed by Me Diagonstic Imaging: CT (noncontrast) Plain Films/CT/US/NM/MRI: abdomen, pelvis Comments Left ureter, mid ureter 4 mm stone with proximal hydroureter and hydronephrosis but decompressed ureter distally. Multiple left renal staghorn-type calculi, the largest at the left upper pole is 27 m. There is a moderate left hydroureter nephrosis with a left proximal ureter calculus measuring 2 mm inferior to the above another calculus measuring 5 mm. Right ureter vesicular junction calculus 2 mm. Right mild hydronephrosis. Reviewed: Reviewed by Me Consults Consults : Consulting Physician: TREVIN RIZZO MD Consults Notes Discussed the case and he recommends a CT noncontrast of the abdomen pelvis and if there is good flow and no evidence of obstructing stones in the don't need to do anything but if there isn't evidence of obstruction and he would recommend replacement of the nephrostomy. Departure Impression Primary Impression: Nephrostomy tube displaced Additional Impressions: UTI (urinary tract infection) Qualified Codes: T83.512A - Infection and inflammatory reaction due to nephrostomy catheter, initial encounter; N39.0 - Urinary tract infection, site not specified Ureteral calculus, left Hydroureteronephrosis Sepsis Qualified Codes: A41.9 - Sepsis, unspecified organism Pneumonia Qualified Codes: J18.9 - Pneumonia, unspecified organism Disposition: 02 XFER SHT-TRM HOSP Condition: Stable Transfer Time Spoke to Accepting Phy: 23:20 Transfer Progress Notes Spoke with Tomasa 1 call at [place], [place] at 2310. Spoke [address] Dr. Donald discussed the case and he agrees to accept the patient for transfer at 2320. Transfer Time: 00:20 Transfer Facility: [place], [place] Method of Transfer: EMS Departure-Patient Inst. Referrals: ABHINAV GONZALEZ MD (PCP/Family) Primary Care Physician Copy Copies To 1: ANTONIA CHUNG DO; TREVIN RIZZO MD, TITUS J Jul 06, 2018 22:15
[2018-07-06 22:18] LABS: BASOPHILS % (AUTO) 0 % (0-10); EOSINOPHILS % (AUTO) 0 % (0-10); HEMATOCRIT 33 % (40-54); HEMOGLOBIN 10.9 G/DL (13.3-17.7); LYMPHOCYTES # (AUTO) 1.2 X 10^3 (1.0-4.0); LYMPHOCYTES % (AUTO) 6 % (12-44); MEAN CORPUSCULAR HEMOGLOBIN 30 PG (25-34); MEAN CORPUSCULAR HGB CONC 33 G/DL (32-36); MEAN CORPUSCULAR VOLUME 90 FL (80-99); MEAN PLATELET VOLUME 10.4 FL (7.4-10.4); MONOCYTES # (AUTO) 2.7 X 10^3 (0.0-1.0); MONOCYTES % (AUTO) 13 % (0-12); NEUTROPHILS # (AUTO) 16.4 X 10^3 (1.8-7.8); NEUTROPHILS % (AUTO) 81 % (42-75); PLATELET COUNT 181 10^3/uL (130-400); RED BLOOD COUNT 3.68 10^6/uL (4.35-5.85); RED CELL DISTRIBUTION WIDTH 16.4 % (10.0-14.5); WHITE BLOOD COUNT 20.3 10^3/uL (4.3-11.0)
[2018-07-06 22:27] LABS: INR 1.3 (0.8-1.4); PROTHROMBIN TIME PATIENT 16.4 SEC (12.2-14.7)
[2018-07-06 22:35] LABS: ALANINE AMINOTRANSFERASE 13 U/L (0-55); ALBUMIN 3.3 GM/DL (3.2-4.5); ALKALINE PHOSPHATASE 93 U/L (40-136); BAND NEUTROPHILS 6 %; BASOPHILS % (MANUAL) 0 %; BUN/CREATININE RATIO 17; CALCIUM 9.4 MG/DL (8.5-10.1); CARBON DIOXIDE 27 MMOL/L (21-32); CHLORIDE 94 MMOL/L (98-107); CREATININE SERUM 1.16 MG/DL (0.60-1.30); EOSINOPHILS % (MANUAL) 0 %; GFR ESTIMATED > 60; GLUCOSE 116 MG/DL (70-105); LYMPHOCYTES % (MANUAL) 8 %; MONOCYTES % (MANUAL) 10 %; NEUTROPHILS % (MANUAL) 76 %; POTASSIUM 3.9 MMOL/L (3.6-5.0); RBC MORPH NORMAL; SODIUM 133 MMOL/L (135-145); TOTAL PROTEIN 7.9 GM/DL (6.4-8.2)
[2018-07-06 22:53] LABS: BILIRUBIN,URINE NEGATIVE (NEGATIVE); CLARITY,URINE SLIGHTLY CLOUDY; COLOR,URINE YELLOW; GLUCOSE, URINE (UA) NEGATIVE (NEGATIVE); KETONES,URINE NEGATIVE (NEGATIVE); LEUKOCYTE ESTERASE ,URINE 3+ (NEGATIVE); NITRITE,URINE NEGATIVE (NEGATIVE); PH,URINE 6 (5-9); PROTEIN,URINE 2+ (NEGATIVE); UROBILINOGEN,URINE NORMAL (NORMAL)
[2018-07-06 23:00] LABS: BACTERIA,URINE FEW /HPF; RBC,URINE >100 /HPF; WBC,URINE 25-50 /HPF
[2018-07-06] MEDS ORDERED: AZITHROMYCIN INJECTION 500 MG in NS (IVPB) 250 ML IV ONE (23:15)
[2018-07-07 00:20] VITALS: BP 126/68
--- NOTE | 2018-07-07 06:28 | Diagnostic Imaging Report ---
INDICATION: Cough and congestion. FINDINGS: There is cardiomegaly. There is patchy bibasilar atelectasis and/or pneumonitis. There has been previous median sternotomy. Pacemaker overlies the left hemithorax. There is no pleural effusion or pneumothorax. The mediastinum is unremarkable. IMPRESSION: Cardiomegaly and some patchy bibasilar atelectasis and/or pneumonitis. Dictated by: Dictated on workstation # [id number]
--- NOTE | 2018-07-07 06:34 | Diagnostic Imaging Report ---
PROCEDURE: CT urinary tract, rule out kidney stone. TECHNIQUE: Multiple contiguous axial images were obtained through the abdomen and pelvis without the use of intravenous contrast. INDICATION: Abdominal pain Comparison is made with prior examination from 06/28/18 TECHNIQUE: Multiple contiguous axial images were obtained through the abdomen and pelvis without the use of intravenous contrast. FINDINGS: There is cardiomegaly. There is minimal scarring in the lung bases. The liver is normal in size without focal lesions. The gallbladder unremarkable. There is no biliary duct dilatation. Spleen is normal. The pancreas and adrenal glands are unremarkable. There is a 2 cm staghorn calculus in the left kidney. There are also left renal cysts. There is moderate left hydronephrosis. In the proximal left ureter, there is a 2 mm stone. In the mid left ureter, there is a 5 mm stone. There is a tiny nonobstructing stone in the right kidney as well as a right renal cyst. There is minimal right hydronephrosis secondary to a 2 mm stone seen at the right UVJ. There is moderate atherosclerotic calcification of the abdominal aorta. Bowel gas pattern is nonspecific. There is no free air. There is no ascites. Bladder is normal. There is no pelvic mass or adenopathy. There are degenerative changes in the spine. There is bilateral spondylolysis at L5 without significant spondylolisthesis. IMPRESSION: Bilateral obstructive uropathy, left greater than right, as described. Chronic spondylolysis at L5 without spondylolisthesis. Cardiomegaly and some scarring in the lung bases Dictated by: Dictated on workstation # [id number]
== END 2018-07-07 00:20 | disposition short-term general hospital (02) ==
LOC: EDUNIT# 21:59 → ER 22:01
DX: T83.092A Other mechanical complication of nephrostomy catheter, initial encounter (principal); N13.6 Pyonephrosis; A41.9 Sepsis, unspecified organism; J18.9 Pneumonia, unspecified organism; J44.9 Chronic obstructive pulmonary disease, unspecified; G47.30 Sleep apnea, unspecified; I42.9 Cardiomyopathy, unspecified; I25.10 Atherosclerotic heart disease of native coronary artery without angina pectoris; I10 Essential (primary) hypertension; I25.2 Old myocardial infarction; E78.00 Pure hypercholesterolemia, unspecified; F03.90 Unspecified dementia, unspecified severity, without behavioral disturbance, psychotic disturbance, mood disturbance, and anxiety; E11.40 Type 2 diabetes mellitus with diabetic neuropathy, unspecified; K21.9 Gastro-esophageal reflux disease without esophagitis; F32.9 Major depressive disorder, single episode, unspecified; Z85.828 Personal history of other malignant neoplasm of skin; Z82.49 Family history of ischemic heart disease and other diseases of the circulatory system; Z80.49 Family history of malignant neoplasm of other genital organs; Z87.19 Personal history of other diseases of the digestive system; Z87.448 Personal history of other diseases of urinary system; Z88.0 Allergy status to penicillin; Z88.5 Allergy status to narcotic agent; Z79.51 Long term (current) use of inhaled steroids; Z87.442 Personal history of urinary calculi; Z87.891 Personal history of nicotine dependence; Z95.1 Presence of aortocoronary bypass graft; Z95.5 Presence of coronary angioplasty implant and graft; Z95.810 Presence of automatic (implantable) cardiac defibrillator; Z87.01 Personal history of pneumonia (recurrent)
CPT/HCPCS: 36415; 71045; 74176; 80053; 81000; 83605; 85007; 85027; 85610; 85730; 87040; 87077; 87088; 87186

== ENCOUNTER 2018-07-21 15:04 | Inpatient (IN) | payer MEDICARE, MEDICAID ==
[~2018-07-21] VITALS: Ht 165.1 cm; Wt 81.8 kg
[2018-07-21] MEDS ORDERED: RT-ALBUTEROL/IPRATROPIUM 3 ML (DUONEB) VIAL INH PRN (21:45)
[2018-07-21 21:50] VITALS: BP 137/80
[2018-07-21] MEDS ORDERED: MEXILETINE 200 MG (MEXITIL) CAPSULE PO SCH (22:00)
[2018-07-21] MEDS ORDERED: DILTIAZEM 60 MG (CARDIZEM) TAB PO SCH (22:00)
--- NOTE | 2018-07-21 22:43 | NUR ---
sri edmonds admitted to room 226-1, with an admitting diagnosis of aspiration pneumonia, uti, on 07/21/18 from [place], accompanied by ems.SRI EDMONDS introduced to surroundings, call light, bed controls, phone, TV, temperature control, lights, meal times, smoking policy, visitor policy, side rail policy, bathrooms and showers. Patient Rights given to patient in the handbook.SRI EDMONDS verbalizes understanding that [facility] is not responsible for the loss or damage to any personal effects or valuables that are kept in the patients posession during their hospitalization. The following Patient Care Plans were discussed with the : Discharge Planning, ,, and . SRI EDMONDS verbalizes understanding of Interdisciplinary Patient Education. Patient was informed about the Rapid Response Team and its purpose. Patient received Patient Rights Booklet, which includes Privacy Act Statement and Data Collection Information Summary.
--- NOTE | 2018-07-21 23:37 | NUR ---
unable to complete admission due to pt confusion
--- NOTE | 2018-07-22 06:00 | NUR ---
pt confused most of noc ,combative at times hits at staff during pt care
[2018-07-22] MEDS: FUROSEMIDE 20 MG (LASIX) TAB PO SCH ×2 (06:02→16:39)
[2018-07-22] MEDS: DILTIAZEM 60 MG (CARDIZEM) TAB PO SCH ×3 (06:03→21:25)
[2018-07-22] MEDS: inSUlin ASPART (NovoLOG) 1 UNIT/0.01 ML (CHARGE PER UNIT) SC SCH ×4 (06:03→21:26)
[2018-07-22 06:30] VITALS: BP 130/63
[2018-07-22] MEDS: KCL 20 MEQ TAB (K-DUR) PO SCH (07:00)
[2018-07-22 07:16] LABS: ALANINE AMINOTRANSFERASE 12 U/L (0-55); ALBUMIN 3.2 GM/DL (3.2-4.5); ALKALINE PHOSPHATASE 93 U/L (40-136); BILIRUBIN,TOTAL 0.4 MG/DL (0.1-1.0); BUN/CREATININE RATIO 23; CALCIUM 9.6 MG/DL (8.5-10.1); CARBON DIOXIDE 29 MMOL/L (21-32); CHLORIDE 101 MMOL/L (98-107); CREATININE SERUM 0.94 MG/DL (0.60-1.30); GFR ESTIMATED > 60; GLUCOSE 124 MG/DL (70-105); SODIUM 140 MMOL/L (135-145); TOTAL PROTEIN 8.2 GM/DL (6.4-8.2)
[2018-07-22 08:23] LABS: BASOPHILS % (AUTO) 0 % (0-10); EOSINOPHILS # (AUTO) 0.1 10^3/uL (0.0-0.3); EOSINOPHILS % (AUTO) 1 % (0-10); HEMATOCRIT 35 % (40-54); HEMOGLOBIN 11.1 G/DL (13.3-17.7); LYMPHOCYTES % (AUTO) 12 % (12-44); MEAN CORPUSCULAR HEMOGLOBIN 29 PG (25-34); MEAN CORPUSCULAR HGB CONC 32 G/DL (32-36); MEAN CORPUSCULAR VOLUME 93 FL (80-99); MEAN PLATELET VOLUME 11.3 FL (7.4-10.4); MONOCYTES % (AUTO) 12 % (0-12); NEUTROPHILS # (AUTO) 6.4 X 10^3 (1.8-7.8); NEUTROPHILS % (AUTO) 74 % (42-75); PLATELET COUNT 219 10^3/uL (130-400); RED BLOOD COUNT 3.77 10^6/uL (4.35-5.85); RED CELL DISTRIBUTION WIDTH 18.6 % (10.0-14.5); WHITE BLOOD COUNT 8.6 10^3/uL (4.3-11.0)
[2018-07-22] MEDS ORDERED: ONDANSETRON 4 MG (ZOFRAN) ORAL DISSOLVE TAB PO PRN (08:30)
--- NOTE | 2018-07-22 08:52 | Physical Therapy Evaluation ---
PT Evaluation-General Medical Diagnosis Admission Date Jul 21, 2018 at 20:05 Medical Diagnosis: disuse myopathy Onset Date: Jul 21, 2018 Therapy Diagnosis Therapy Diagnosis: weakness; abn gait Height/Weight Height (Feet): 5 Height (Inches): 5.00 Weight (Pounds): 167 Weight (Ounces): 0.7 Precautions Precautions/Isolations: Airborne Isolation, Contact Isolation Referral Physician: bev Reason for Referral: Evaluation/Treatment Medical History Pertinent Medical History: Atrial Fib, Arthritis, CABG, CAD, COPD, Dementia, GERD, [place], Neuropathy Current History Pt was admitted to [facility] for sepsis at this hospital. He was transferred to the [facility] for medical managment and then returned to this unit for continued medical care skilled therapy services intervention. Reviewed History: Yes Social History Home: Apartment Current Living Status: Spouse Entry Into Home: Level Entry Pt lives in senior housing with his . Prior/Core FIM Prior Level of Function Therapy Code Descriptions/Definitions Functional [place] Measure: 0=Not Assessed/NA 4=Minimal Assistance 1=Total Assistance 5=Supervision or Setup 2=Maximal Assistance 6=Modified [place] 3=Moderate Assistance 7=Complete [place] Therapy Quality Codes: 6 Independent with activity with or without an assistive device 5 Patient requires set up or clean up by helper. Patient completes activity by themselves 4 Supervision or touching assist (CGA). [place] provide cues , steadying assist 3 The helper provides less than half the effort to complete the activity 2 The helper provides more than half the effort to complete the activity 1 Dependent. The helper does all the effort to complete an activity 7 Patient refused to complete or attempt activity 9 The patient did not perform the activity before the current illness or injury 88 Not attempted due to Medical conditions or safety concerns Functional Abilities and Goals: Independent: Patient completed the activities by him/herself, with or without an assistive device, with no assistance from a helper. Needed Some Help: Patient needed partial assistance from another person to complete activities. Dependent: A helper completed the activities for the patient. Unknown: Not Applicable: Bed Mobility: 0 (Pt unable to report, but I believe pt sleeps in a lift recliner at home. ) Transfers (B,C,W/C) (FIM): 5 (Pt's present at all times for supervision with functional transfers. ) Gait: 2 (Pt only walks short distances (50 ft at most in his apartment) with FWW wi th supervision; pt is primarily at a wc level at home. ) Stairs: 0 (pt does not perform) Wheelchair Mobility: 6 Indoor Mobility (Ambulation): Needed Some Help Stairs: Not [place] Prior Devices Use: Manual wheelchair, Walker Pt uses his wc at home for mobility; limited walking and only for short distances. This patient is known to this therapist from previous hospital stays . PT Evaluation-Current Subjective Pt calls out during therapy sessions. "I want to go home." Pt asks for his mother as well. Completed as much of assessment as pt would allow, adamently refused to walk further after he sat down the last time. Pain Comment: unable to report; does not appear to be in pain. Pt/Family Goals Since pt is on an ARU, it is expected that his goal is to return home, but he is not able to cognitively discuss goals. not present at this time. Objective Patient Orientation: Person, Confused Problem Solving: Poor Attachments: Oxygen, PEG Tube ROM/Strength ROM Lower Extremities B LE WNL Strenght Lower Extremities Unable to specifically test, but B LE strength is grossly 4/5 as he is able to transfer and stand and ambulate. Integumentary/Posture Integumentary refer to nursing notes for full assessment. Bowel Incontinence: Yes Bladder Incontinence: Yes Posture slight thoracic kyphosis and head down. does not stand straight in his walker. Tends to lean forward when sitting in a chair. Neuromuscular (Tone, Coordination, Reflexes) appear intact and functional Sensory Vision: Functional Hearing: Impaired Transfers Therapy Code Descriptions/Definitions Functional [place] Measure: 0=Not Assessed/NA 4=Minimal Assistance 1=Total Assistance 5=Supervision or Setup 2=Maximal Assistance 6=Modified [place] 3=Moderate Assistance 7=Complete [place] Therapy Quality Codes: 6 Independent with activity with or without an assistive device 5 Patient requires set up or clean up by helper. Patient completes activity by themselves 4 Supervision or touching assist (CGA). [place] provide cues , steadying assist 3 The helper provides less than half the effort to complete the activity 2 The helper provides more than half the effort to complete the activity 1 Dependent. The helper does all the effort to complete an activity 7 Patient refused to complete or attempt activity 9 The patient did not perform the activity before the current illness or injury 88 Not attempted due to Medical conditions or safety concerns Transfers (B, C, W/C) (FIM): 4 (due to safety concerns and impaired judgement/ rationale for unsafe sitting. ) Scootin Roll Left to Right (QC): 4 Supine to/from Sit: 4 (for safety; pt able to complete without assist other than guidance for safety. ) Sit to/from Stand: 4 Sit to Lying (QC): 4 Lying to Sitting/Side of Bed(Q: 4 Sit to Stand (QC): 4 Chair/[id number]-Iwzjp Xfer(QC): 4 Car Transfer (QC): 88 (pt is agitaated and unsafe to attempt to perform car transfer at this time; he is impulsive and difficult to manage; attempts at this transfer is not safe currently. ) Pt agitated with impaired safety judegemnt/awareness. Difficult to manage due to impulsivity. Pt tried to sit unsafely and does not follow safety cues well. Gait Does the Patient Walk?: Yes Mode of Locomotion: Both Anticipated Mode of Locomotion: Both Gait (FIM): 2 Distance (FIM): 1=up to 49 ft Walk 10 feet (QC): 4 Walk 50 ft with 2 Turns(QC): 88 (pt resistant to going further and attempts to sit in the air. Had to hastily pull a chair behind him so as for him not to sit on the ground. ) Walk 150 ft (QC): 88 Walking 10ft/uneven surface-QC: 3 (very unsafe; pt lifts walker off the ground ; attempts to sit without a chair. ) Distance: 15 ft Gait Assistive Device: FWW Comments/Gait Description forward flexed at hips and knees; head down; unsafe and impulsive. needs assist of 1 person for safety but also needs a second person due to impulsivity and impaired judgement. Wheelchair Training Does the Pt Use a Wheelchair?: Yes Wheelchair (FIM): 0 (pt would not cooperate to assess this method of mobility at this time. ) Stairs Stairs (FIM): 0 (unsafe; pt lifts walker in the air; impulsive. fall risk, ) 1 Step (curb) (QC): 88 4 Steps (QC): 88 12 Steps (QC): 88 placed curb step in front of patient and he lifted walker in the air and tried to sit without a chair behind him. unsafe to attempt due to confusion and impaired safety awareness. Balance Sitting Static: Fair Sitting Dynamic: Fair Standing Static: Poor Standing Dynamic: Poor Treatment Stood pt to perform per icare; assist to maintain standing for safety and due to impulsive sitting. Pt up in chair with legs elevated, oxygen in situ and chair alarm activated. Nursing aware. 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 He is confused and agitated at this time with limited effective participation with skilled intervention. he lives at home with his and wc is his primary mobility. He walks short distances at times and with supervision. His confused state and agitation impair functional safety this visit. Generally, he mobilizes well, his primary limit is confusion. Rehab Potential: Guarded PT Short Term Goals Short Term Goals Time Frame: Jul 29, 2018 Transfers (B,C,W/C) (FIM): 5 Gait (FIM): 2 Distance (FIM): 1=up to 49 ft Gait Assistive Device: FWW PT Learning Support Resource Room Teacher Goals Skilled Nursing Goals PT Learning Support Resource Room Teacher Goals Time Frame: Aug 12, 2018 Transfers (B,C,W/C) (FIM): 6 Sit to Lying (QC): 6 Lying-Sitting on Side/Bed(QC): 6 Sit to Stand (QC): 6 Roll Left to Right (QC): 6 Chair/Dbn-wc-Inohr Xfer(QC): 6 Car Transfer (QC): 5 Does the Patient Walk: Yes Gait (FIM): 5 (household) Gait distance (FIM): 0=191-89 ft Walk 10 feet (QC): 6 Walk 10ft-Uneven Surface(QC): 6 Walk 50ft with 2 Turns (QC): 6 Walk 150 ft (QC): 88 Gait Level of Assist: 6 Gait Assistive Device: FWW Does the Pt use WC or Scooter?: Yes Wheelchair (FIM): 6 Wheelchair distance (FIM): 3=150 ft Wheel 50 feet with 2 turns (QC: 6 Stairs (FIM): 88 1 Step (curb) (QC): 88 4 Steps (QC): 88 12 Steps (QC): 88 Picking up an Object (QC): 88 PT Plan Problem List Problem List: Activity Tolerance, Functional Strength, Safety, Balance, Gait, Transfer, Bed Mobility Treatment/Plan Treatment Plan: Continue Plan of Care Treatment Plan: Bed Mobility, Education, Functional Activity [place], Functional Strength, Group Therapy, Gait, Safety, Therapeutic Exercise, Transfers Treatment Duration: Aug 12, 2018 Frequency: At least 5 of 7 days/Wk (IRF) Estimated Hrs Per Day: 1.5 hours per day Patient and/or Family Agrees t: Yes Safety Risks/Education Patient Education: Gait Training, Transfer Techniques, Safety Issues Teaching Recipient: Patient Teaching Methods: Demonstration, Discussion Response to Teaching: Reinforcement Needed Time/GCodes Time In: 800 Time Out: 900 Total Billed Treatment Time: 60 Total Billed Treatment visit EVM 30 FA 30 AYLA PEREZ PT Jul 22, 2018 08:51
[2018-07-22] MEDS ORDERED: MAGNESIUM OXIDE (MAG-OX)400 MG TAB PO SCH (09:00)
[2018-07-22] MEDS ORDERED: amLODIPine 5 MG (NORVASC) TAB PO SCH (09:00)
[2018-07-22] MEDS ORDERED: AMIODARONE 200 MG (CORDARONE) TAB PO SCH ×2 (09:00)
[2018-07-22] MEDS ORDERED: meTOprolol TARTRATE 25 MG (LOPRESSOR) TABLET PO SCH ×2 (09:00)
[2018-07-22 09:03] LABS: ERYTHROCYTE SEDIMENTATION RATE 74 MM/HR (0-30)
--- NOTE | 2018-07-22 09:53 | Occupational Therapy Eval ---
OT Evaluation-General/PLF Medical Diagnosis Admission Date Jul 21, 2018 at 20:05 Medical Diagnosis: disuse myopathy Onset Date: Jul 21, 2018 Therapy Diagnosis Therapy Diagnosis: Weakness Height/Weight Height (Feet): 5 Height (Inches): 5.00 Weight (Pounds): 167 Weight (Ounces): 0.7 Precautions Precautions/Isolations: Airborne Isolation, Contact Isolation Safety Interventions: Notify Family, Bed Exit Alarm, Reorient-Attempt, Reorient -PRN Referral Physician: bev Referral Reason: Activity Tolerance, Self Care, Evaluation/Treatment, Strengthening/ROM Medical History Pertinent Medical History: Atrial Fib, Arthritis, CABG, CAD, COPD, Dementia, GERD, [place], Neuropathy Social History Home: Apartment Current Living Status: Spouse Entry Into Home: Level Entry ADL-Prior Level of Function Therapy Code Descriptions/Definitions Functional [place] Measure: 0=Not Assessed/NA 4=Minimal Assistance 1=Total Assistance 5=Supervision or Setup 2=Maximal Assistance 6=Modified [place] 3=Moderate Assistance 7=Complete [place] Therapy Quality Codes: 6 Independent with activity with or without an assistive device 5 Patient requires set up or clean up by helper. Patient completes activity by themselves 4 Supervision or touching assist (CGA). [place] provide cues , steadying assist 3 The helper provides less than half the effort to complete the activity 2 The helper provides more than half the effort to complete the activity 1 Dependent. The helper does all the effort to complete an activity 7 Patient refused to complete or attempt activity 9 The patient did not perform the activity before the current illness or injury 88 Not attempted due to Medical conditions or safety concerns Functional Abilities and Goals: Independent: Patient completed the activities by him/herself, with or without an assistive device, with no assistance from a helper. Needed Some Help: Patient needed partial assistance from another person to complete activities. Dependent: A helper completed the activities for the patient. Unknown: Not Applicable: ADL PLOF Comments Pt. is unable to state. OT Current Status Subjective Pt. yells out, "I want to go home," multiple times throughout treatment. Mental Status/Objective Patient Orientation: Confused ADL-Treatment Bathing (FIM): 1 Shower/Bathe Self (QC): 1 Toileting (FIM): 1 Toileting Hygiene (QC): 1 Transfers (B, C, W/C) (FIM): 3 Other Treatments OT checked on pt. early this a.m., as he was in his room yelling out that he wanted to go home. Pt. very confused. OT attempted to talk with him, make him comfortable, but pt. continues to scream. Let nursing know. Went back into room for scheduled time. Pt. in chair and attempting to aggressively rock self in chair. OT attempts to calm him down, encourage him. Unable to re-direct pt. Pt. very confused. OT hands pt. washcloth and he is asked to wash face. Pt. swipes at his own face and then throws washcloth at therapist. OT hands him another one and asks him to wash under his arms. Pt states that he is not going to do it. OT asks if she can assist. He states yes, but then in process of being bathed, becomes physical and attempts to hit OT. No street clothing available. Did transfer to wheelchair and during transfer noted pt. incontinent of stool in chair. OT cleansed pt. Transferred to wheelchair and taken out of room in hopes that pt. would enjoy seeing other people. Pt. is wheeled to dining table and states that he would like coffee when it is offered. OT gets pt. coffee but pt. refuses to drink it. Pt. pushed table very hard and yells again that he wants to go home. This is witnessed by multiple people. Pt. is taken back to his room and transfers back to chair with chair alarm in. Nursing is notified. Education OT Patient Education: Correct positioning, Modified ADL techniques, Progress toward Goal/Update tx plan, Purpose of tx/functional activities, Reviewed precautions, Rehab process, Transfer techniques Teaching Recipient: Patient Teaching Methods: Demonstration, Discussion Response to Teaching: Unable to Return Demonstration, Unable to Comprehend, Reinforcement Needed OT Short Term Goals Short Term Goals Time Frame: Jul 29, 2018 Eating(FIM): 4 Grooming(FIM): 3 Upper Body Dressing(FIM): 3 Lower Body Dressing(FIM): 3 Toileting(FIM): 4 Transfers (B,C,W/C) (FIM): 4 Toilet/Commode Transfer(FIM): 4 Additional Short Term Goals: 1-Demonstrate ADL Tasks, 2-Verbalize Understanding , 3-ImproveStrength/[place] 1=Demonstrate adherence to instructed precautions during ADL tasks. 2=Patient will verbalize/demonstrate understanding of assistive devices/ modifications for ADL. 3=Patient will improve strength/tolerance for activity to enable patient to perform ADL's. OT Talent [employer] Manager Goals [employer] Manager Goals Time Frame: Aug 19, 2018 Eating (FIM): 5 Eating (QC): 5 Groomin Oral Hygiene (QC): 4 Bathing(FIM): 3 Shower/Bathe Self (QC): 3 Upper Body Dressing(FIM): 5 Upper Body Dressing (QC): 4 Lower Body Dressing(FIM): 4 Lower Body Dressing (QC): 4 On/Off Footwear (QC): 4 Toileting(FIM): 5 Toileting Hygiene (QC): 5 Transfers (B,C,W/C) (FIM): 5 Toilet/Commode Transfer(FIM): 5 Toilet/Commode Transfer (QC): 4 Additional Goals: 1-Demonstrate ADL Tasks, 2-Verbalize Understanding, 3- ImproveStrength/[place] 1=Demonstrate adherence to instructed precautions during ADL tasks. 2=Patient will verbalize/demonstrate understanding of assistive devices/ modifications for ADL. 3=Patient will improve strength/tolerance for activity to enable patient to perform ADL's. OT Education/Plan Problem List/Assessment Assessment: Decreased Activ Tolerance, Decreased Safety Aware, Decreased UE Strength, Dependent Transfers, Impaired Bed Mobility, Impaired Cognition, Impaired Coordination, Impaired Funct Balance, Impaired I ADL's, Impaired Self- Care Skills, Restricted Funct UE ROM Discharge Recommendations Plan/Recommendations: Continue POC Therapy D/C Recommendations: 24 hr Supervision Barriers to Progress Pt. is very confused and agitated. Unable to process what is being told to him , and is unable to demonstrate tasks. Treatment Plan/Plan of Care Treatment,Training & Education: Yes Patient would benefit from OT for education, treatment and training to promote independence in ADL's, mobility, safety and/or upper extremity function for ADL' s. Plan of Care: ADL Retraining, Functional Mobility, Group Exercise/Act as Ind, UE Funct Exercise/Act Treatment Duration: Aug 19, 2018 Frequency: At least 5 of 7 days/Wk (IRF) Estimated Hrs Per Day: 1.5 hours per day Agreement: Yes Rehab Potential: Guarded Time/GCodes Start Time: 09:15 Stop Time: 09:40 Total Time Billed (hr/min): 25 Billed Treatment Time 1, EVH x 10minutes, ADL x 15minutes ALFREDO STOVALL OT Jul 22, 2018 09:53
--- NOTE | 2018-07-22 10:28 | NUR ---
CIRCULAR SAWYER HELPER attempted to meet with patient to complete initial assessment; however, staff reports patient is confused. Due to witnessed combativeness with therapy staff, CIRCULAR SAWYER HELPER attempted to contact patient's spouse to request visit; however, CIRCULAR SAWYER HELPER was unable to reach spouse. CIRCULAR SAWYER HELPER will reattempt later.
[2018-07-22] MEDS ORDERED: MILK OF MAGNESIA 400 MG/5 ML 30 ML UDC PO PRN (10:45)
[2018-07-22] MEDS: DIGOXIN 0.125 MG (LANOXIN) TAB PO SCH (10:54)
[2018-07-22] MEDS: PHENAZOPYRIDINE 100 MG (PYRIDIUM) TABLET PO SCH ×3 (10:54→17:45)
[2018-07-22] MEDS: guaiFENesin/DM (ROBITUSSIN DM) 10 ML UDC PO SCH ×3 (10:54→21:45)
[2018-07-22] MEDS: LACTOBACILLUS ACIDOPHILUS (PROBIOTIC) CAPSULE PO SCH ×2 (10:55→21:24)
[2018-07-22] MEDS: MEXILETINE 150 MG (MEXITIL) CAPSULE PO SCH ×2 (10:55→16:39)
[2018-07-22] MEDS: meTOprolol TARTRATE 25 MG (LOPRESSOR) TABLET PO SCH ×2 (10:55→21:25)
[2018-07-22] MEDS: ASPIRIN 81 MG CHEW (CHILDREN'S ASA) PO SCH (10:55)
[2018-07-22] MEDS: PANTOPRAZOLE 40 MG (PROTONIX) TAB PO SCH (10:55)
[2018-07-22] MEDS: DOCUSATE SODIUM 100 MG (COLACE) CAP PO SCH ×2 (10:55→21:24)
[2018-07-22 11:08] VITALS: BP 135/82
--- NOTE | 2018-07-22 11:20 | NUR ---
Pastoral Care Visit, pt was in commons area with other pts preparing to eat. I had collective prayer with group.
--- NOTE | 2018-07-22 11:21 | Consultation-Hospitalist ---
HPI History of Present Illness: HPI/Chief Complaint CC: Severe debility HPI: This is a 78-year-old white male Formerly [facility] patient was admitted to inpatient rehabilitation for IV medication and severe debility resolution. He was admitted to [facility] for 11 days requiring PEG tube placement due to silent aspiration and urinary stent placement due to obstructive stone in ureter and maintained on antibiotic regimen with aggressive physical therapy. I reviewed old records and culture results from infectious disease and reviewed current lab results along with vital signs. He is sitting up in chair drowsy but oriented 3 but appears to be severely chronically ill. Her goal is to return to independent ADL function along with completion of IV antibiotics. Source: patient, RN/MD, old records Exam Limitations: clinical condition Date Seen 07/22/18 Attending Physician Eric Villeda MD PCP Elliot Ybarra MD Referring Physician Date of Admission Jul 21, 2018 at 20:05 Home Medications & Allergies Home Medications Reviewed patient Home Medication Reconciliation performed by pharmacy medication reconciliations pattern technician and/or nursing. Patients Allergies have been reviewed. Allergies Allergies Coded Allergies Penicillins (Verified Allergy, Severe, HIVES, SOB (Pt has received Cefepime & Ceftriaxone), 07/03/18) codeine (Verified Allergy, Severe, SOB, HIVES, 01/04/18) Past Asvajow-Jidkel-Opbkll Hx Past Med/Social Hx: Reviewed Nursing Past Med/Soc Hx, Reviewed and Corrections made Patient Social History Marrital Status: (56 yrs) Employed/Student: retired Alcohol Use: Denies Use Recreational Drug Use: No Smoking Status: Former Smoker Former Smoker, Quit: Jul 22, 1988 Type Used: Cigarettes 2nd Hand Smoke Exposure: No Physical Abuse Screen: No Sexual Abuse: No Recent Foreign Travel: No Contact w/other who traveled: No Recent Hopitalizations: Yes Recent Infectious Disease Expo: No Immunizations Up To Date Tetanus Booster (TDap): More than 5yrs Date of Pneumonia Vaccine: May 12, 2018 Date of Influenza Vaccine: May 08, 2018 Seasonal Allergies Seasonal Allergies: No Past Medical History Surgeries: Cardiac, CABG, Coronary Stent, Defibrillator, Eye Surgery, Orthopedic, Renal Respiratory: COPD, Sleep Apnea Currently Using CPAP: No Currently Using BIPAP: No Cardiac: Cardiomyopathy, Chronic Edema/Swelling, Coronary Artery Disease, Heart Attack, High Cholesterol, Hypertension, Irregular Heartbeat Neurological: Dementia, Neuropathy Reproductive: Yes (unable to have children- mumps as a child) Sexually Transmitted Disease: No HIV/AIDS: No Genitourinary: Kidney Infection, Bladder Infection, Kidney Stones Gastrointestinal: Gastroesophageal Reflux, Ulcer Musculoskeletal: Arthritis, Chronic Back Pain, Fractures Endocrine: Diabetes, Insulin dep HEENT: Cataract, Glaucoma Loss of Vision: Bilateral Hearing Impairment: Hard of Hearing Cancer: Skin Did You Recieve Any Treatments: Yes What Type of Treatment Did You: Surgical Intervention Psychosocial: Anxiety, Depression History of Blood Disorders: No Adverse Reaction to Blood Hirsch: No Family History Cardiovascular disease 19 MOTHER G8 BROTHER G8 SISTER Cervical cancer 19 MOTHER Heart Disease Review of Systems Constitutional: see HPI, dizziness, malaise, weakness EENTM: hearing loss Respiratory: dyspnea on exertion Cardiovascular: no symptoms reported Gastrointestinal: loss of appetite Genitourinary: no symptoms reported Musculoskeletal: no symptoms reported Skin: no symptoms reported Psychiatric/Neurological: No Symptoms Reported All Other Systems Reviewed Negative Unless Noted: Yes Physical Exam Physical Exam Vital Signs Vital Signs - First Documented 07/21/18 21:50 Temp 97.4 Pulse 90 Resp 16 B/P (MAP) 137/80 (99) Pulse Ox 99 O2 Delivery Nasal Cannula O2 Flow Rate 2.50 Capillary Refill : Height, Weight, BMI Height: 5'5.00" Weight: 167lbs. 0.7oz. 75.659129no; 27.8 BMI Method:Stated General Appearance: No Apparent Distress, WD/WN, Chronically ill Eyes: Bilateral Eye Normal Inspection, Bilateral Eye PERRL HEENT: PERRL/EOMI, Normal ENT Inspection, Pharynx Normal Neck: Full Range of Motion, Normal Inspection, Non Tender, Supple, Carotid Bruit Respiratory: Chest Non Tender, Lungs Clear, Normal Breath Sounds, No Accessory Muscle Use, No Respiratory Distress Cardiovascular: Regular Rate, Rhythm, No Edema, No Gallop, No JVD, No Murmur, Normal Peripheral Pulses Gastrointestinal: Normal Bowel Sounds, No Organomegaly, No Pulsatile Mass, Non Tender, Soft, Other (PEG tube in place) Back: Normal Inspection, No CVA Tenderness, No Vertebral Tenderness Extremity: Normal Capillary Refill, Normal Inspection, Normal Range of Motion, Non Tender, No Calf Tenderness, No Pedal Edema Neurologic/Psychiatric: Alert, Oriented x3, No Motor/Sensory Deficits, Normal Mood/Affect Skin: Normal Color, Warm/Dry Lymphatic: No Adenopathy Results Results/Procedures Labs Laboratory Tests 07/22/18 06:42 Patient resulted labs reviewed. Assessment/Plan Assessment and Plan Assess & Plan/Chief Complaint Assessment: MRSA pneumonia Pseudomonas UTI Severe debilitated state CAD previous bypass graft ICD defibrillator in place Presbycusis Sleep apnea Chronic respiratory failure Plan: Monitor labs PEG tube feedings Speech therapy PT/OT Long recovery expected Consult Dr Fonseca is appreciated Diagnosis/Problems Diagnosis/Problems (1) MRSA pneumonia Status: Acute Qualifiers: Laterality: unspecified laterality Lung location: unspecified part of lung Qualified Codes: J15.212 - Pneumonia due to methicillin resistant Staphylococcus aureus (2) Pseudomonas urinary tract infection Status: Acute (3) Debility Status: Acute (4) Pyelonephritis Status: Acute (5) Renal calculus, left Status: Acute (6) Acute renal insufficiency Status: Resolved Resolution Date/Time: 06/16/18 @ 17:54 (7) Diabetes mellitus, type 2 Status: Chronic Qualifiers: Diabetes mellitus terminal superintendent insulin use: with terminal superintendent use Diabetes mellitus complication status: with circulatory complication Diabetes mellitus complication detail: with other circulatory complications Qualified Codes: E11.59 - Type 2 diabetes mellitus with other circulatory complications; Z79.4 - group home (current) use of insulin (8) Congestive heart failure Status: Chronic Qualifiers: Heart failure type: unspecified (9) COPD (chronic obstructive pulmonary disease) Status: Chronic Qualifiers: COPD type: unspecified COPD Qualified Codes: J44.9 - Chronic obstructive pulmonary disease, unspecified (10) Paroxysmal atrial fibrillation Status: Chronic (11) CAD (coronary artery disease) Status: Chronic Qualifiers: Coronary Disease-Associated Artery/Lesion type: [place] artery [place] vs. transplanted heart: [place] heart Associated angina: without angina Qualified Codes: I25.10 - Atherosclerotic heart disease of [place] coronary artery without angina pectoris (12) ICD (implantable cardioverter-defibrillator) in place Status: Chronic Clinical Quality Measures DVT/VTE Risk/Contraindication: Risk Factor Score Per Nursin RFS Level Per Nursing on Admit: 4+=Very High BRIGITTE LEMA DO Jul 22, 2018 11:21
--- NOTE | 2018-07-22 11:28 | NUR ---
PTD VANCOMYCIN, PER RIVERA RN (IRF NURSE) PATIENT RECEIVED LAST DOSE OF VANCOMYCIN ON 07/21 @ 1830PM. PLAN WILL TO RESUME HERE TONIGHT AT 1800, WILL CHECK A TROUGH LEVEL BEFORE TODAYS DOSE.
--- NOTE | 2018-07-22 13:08 | ST Cognitive Linguistic Eval ---
Speech Evaluation-General Medical Diagnosis disuse myopathy Onset Date: Jul 21, 2018 Therapy Diagnosis Therapy Diagnosis: Cognitive-communication Precautions Precautions: Fall Precautions/Isolations: Airborne Isolation, Contact Isolation Medical History Pertinent Medical History: Atrial Fib, Arthritis, CABG, CAD, COPD, Dementia, GERD, [place], Neuropathy Reviewed History: Yes Social History Current Living Status: Spouse Speech PLF-Current Status Prior Level of Function Patient lived at home with his prior to rehab admission. Subjective Patient is very confused and frequently states "I just want to go home" Language Eval: Auditory Comprehends Simple Yes/No Ques: Mild Indent/Objects Multiple Morales: Mild Ident/Pics in Multiple Morales: Moderate Follows 1-Step Commands: Moderate Follows Complex Directions: Severe Follows General Conversations: Moderate Language Eval: Verbal Language Completes Spontaneous Greeting: Mild Produces Auto, Serial Info: Severe Imitates Simple Words/Phrases: Mild Word Finding: Moderate Requests Basic Needs: Mild States Basic Personal Info: Moderate Expresses Complex Ideas: Severe Cognitive Patient Orientation Person, place Objective Cognitive Domain Attention: Moderate Memory: Moderate Problem Solving: Moderate Executive Functions: Moderate Objective Formal/Standardized Tests [facility] Cognitive-communication Results Memory: Moderate to severe deficit, Problem solving: Moderate to severe deficit , Auditory Processing: Moderate to severe deficit Oral Motor/Speech Production Decreased with production rate Impression Patient is a 79 year old male who presents with moderate to severe deficits for memory, problem solving and auditory processing. Patient is also hard of hearing , which makes communication more challenging. Patient is very confused as to why he is here even though he does appear to know where he is. He frequently requests to go home. Patient was noted to calm down when his was present. Patient is recommended for skilled ST services due to deficits. Communication/Social Cognition Comprehension: 2 Expression: 2 Social Interaction: 2 Problem Solvin Memory: 2 Speech Patient Assess Expression of Ideas/Wants: Rarely/Never (1) Understanding Verbal Content: Sometimes Understands(2) Brief Interview-Mental Status: Yes Repetition of Three Words: One (1) Temporal Orientation: Year: No answer (0) Temporal Orientation: Month: No answer (0) Temporal Orientation: Day: Incorrect or No Answer(0) Recall : Wear to say "Sock": No, could not recall (0) Recall : Color: No, could not recall (0) Recall : Bed: No, could not recall (0) Speech Short Term Goals Short Term Goals Short Term Goals 1) Patient will be able to recall new information with 80% or greater given minimal cues. 2) Patient will be able to name items/pictures presented with 80% or greater given minimal cues. 3) Patient will utilize compensatory strategies for safety within his room with 80% or greater given minimal cues. Speech Fci Goals Fci Goals Patient will improve memory, problem solving and auditory processing in order to return safely home. Speech-Plan Patient/Family Goals Patient/Family Goals: Patient plans to return home with his post rehab. Treatment Plan Speech Therapy Treatment Plan: Continue Plan of Care Patient is recommended for skilled ST services. Treatment Duration: Jul 26, 2018 Frequency: 5 times per week Estimated Hrs Per Day: .5 hour per day Rehab Potential: Guarded Barriers to Learning: Patient has involved deficits. Pt/Family Agrees to Plan: Yes Safety Risks/Education Teaching Recipient: Patient Teaching Methods: Discussion Response to Teaching: Verbalize Understanding Education Topics Provided: Safety within his room. Time Speech Therapy Time In: 10:30 Speech Therapy Time Out: 10:45 Total Billed Time: 15 Billed Treatment Time 1, SPSNDJULIA Boogie Jul 22, 2018 13:08
--- NOTE | 2018-07-22 13:15 | NUR ---
Dr. Flores to floor. Reviewed DC med list from [facility].
--- NOTE | 2018-07-22 13:32 | Therapy Group Daily Note ---
Therapy Daily Group Note Patient Education Topic Exercises Exercises LE Seated Exercise, Stretching, UE Exercise Other/Notes Pt participated in group therapy with cues and assist to participate 75% of the time. Pt participated in Hesham trijoba but was unable to answer any questions correctly, although he did make attempts. This was followed by ther ex in which he participated in U/LE strengthening exercises and UE stretching. He followed cues and participated fully. He seemed to enjoy the social atmosphere. He has been in the hospital an extended time and socialization is important to clear his cognitive state. During group, he was not as confused and participated appropriately. Feel that the socialization was beneficial in orienting him and decreasing his agitation. Start Time: 11:30 Stop Time: 12:45 Total Billed Treatment Time: 75 Total Billed Treatment visit GRP 75 AYLA PEREZ PT Jul 22, 2018 13:32
--- NOTE | 2018-07-22 13:34 | Physical Therapy Daily Note ---
PT Daily Note-Current Subjective Agrees and verbalizes understanding. present. Transfers Therapy Code Descriptions/Definitions Functional Beckham Measure: 0=Not Assessed/NA 4=Minimal Assistance 1=Total Assistance 5=Supervision or Setup 2=Maximal Assistance 6=Modified Beck[place] 3=Moderate Assistance 7=Complete [place] Therapy Quality Codes: 6 Independent with activity with or without an assistive device 5 Patient requires set up or clean up by helper. Patient completes activity by themselves 4 Supervision or touching assist (CGA). Bryant provide cues , steadying assist 3 The helper provides less than half the effort to complete the activity 2 The helper provides more than half the effort to complete the activity 1 Dependent. The helper does all the effort to complete an activity 7 Patient refused to complete or attempt activity 9 The patient did not perform the activity before the current illness or injury 88 Not attempted due to Medical conditions or safety concerns Treatments Spent time with patient and and educating on ARU and how the unit works. Pt was participatory and able to respond appropriately to discussion. Education on safety in the room and safety with transfers and gait. Assessment Less agitated this afternoon after group. Feel that the social aspect was beneficial. Seemed calmer with his present. PT Short Term Goals Short Term Goals Time Frame: Jul 29, 2018 Transfers (B,C,W/C) (FIM): 5 Gait (FIM): 2 Distance (FIM): 1=up to 49 ft Gait Assistive Device: FWW PT Care Home Goals Grounds Person Goals PT Care Home Goals Time Frame: Aug 12, 2018 Transfers (B,C,W/C) (FIM): 6 Sit to Lying (QC): 6 Lying-Sitting on Side/Bed(QC): 6 Sit to Stand (QC): 6 Roll Left to Right (QC): 6 Chair/Low-te-Zijwj Xfer(QC): 6 Car Transfer (QC): 5 Does the Patient Walk: Yes Gait (FIM): 5 (household) Gait distance (FIM): 6=359-73 ft Walk 10 feet (QC): 6 Walk 10ft-Uneven Surface(QC): 6 Walk 50ft with 2 Turns (QC): 6 Walk 150 ft (QC): 88 Gait Level of Assist: 6 Gait Assistive Device: FWW Does the Pt use WC or Scooter?: Yes Wheelchair (FIM): 6 Wheelchair distance (FIM): 3=150 ft Wheel 50 feet with 2 turns (QC: 6 Stairs (FIM): 88 1 Step (curb) (QC): 88 4 Steps (QC): 88 12 Steps (QC): 88 Picking up an Object (QC): 88 PT Plan Problem List Problem List: Activity Tolerance, Functional Strength, Safety, Balance, Gait, Transfer, Bed Mobility Treatment/Plan Treatment Plan: Continue Plan of Care Treatment Plan: Bed Mobility, Education, Functional Activity Mckinley, Functional Strength, Group Therapy, Gait, Safety, Therapeutic Exercise, Transfers Treatment Duration: Aug 12, 2018 Frequency: At least 5 of 7 days/Wk (IRF) Estimated Hrs Per Day: 1.5 hours per day Patient and/or Family Agrees t: Yes Safety Risks/Education Patient Education: Safety Issues Teaching Recipient: Patient, Significant Other Teaching Methods: Discussion Response to Teaching: Reinforcement Needed Time/GCodes Time In: 1305 Time Out: 1315 Total Billed Treatment Time: 10 Total Billed Treatment visit FA 10 AYLA PEREZ PT Jul 22, 2018 13:34
--- NOTE | 2018-07-22 13:40 | NUR ---
Assumed care of patient. Report rec'd from VANDANA Muniz.
[2018-07-22] MEDS: AMIODARONE 200 MG (CORDARONE) TAB PO SCH ×2 (14:10→21:25)
[2018-07-22] MEDS: MENTHOL/ZINC OXIDE (CALMOSEPTINE) 113 GM TUBE TOP SCH ×2 (14:14→21:27)
[2018-07-22] MEDS: CEFEPIME INJECTION 2,000 MG in NS (IVPB) 50 ML IV SCH ×2 (14:15→21:27)
[2018-07-22 15:56] VITALS: BP 111/57
--- NOTE | 2018-07-22 16:00 | NUR ---
Weekly labs faxed to [facility] Infectious Disease.
--- NOTE | 2018-07-22 16:33 | Consultation-Cardiology ---
HPI-Cardiology Cardiology Consultation Date of Consultation 07/22/18 Date of Admission Time Seen by Provider: 13:00 HPI 78 year old gentleman with history of Coronary artery disease, atrial fibrillation and obstructive uropathy, seen last month when he was hospitalized then transferred to [place], he follows with a flow floor attendant in [place], had aspiration pneumonia and silent aspiration, has been on antibiotics and transferred for rehab, having severe debility and confusion, unable to provide any history. The history was obtained by reviewing his records Home Medications & Allergies Allergies: Coded Allergies: Penicillins (Verified Allergy, Severe, HIVES, SOB (Pt has received Cefepime & Ceftriaxone), 07/03/18) codeine (Verified Allergy, Severe, SOB, HIVES, 01/04/18) Home Medication List Reviewed: Yes WPN-Wzrfms-Iraupk Hx Patient Social History Marital Status: (56 yrs) Employed/Student: retired Alcohol Use: Denies Use Recreational Drug Use: No Smoking Status: Former Smoker Former smoker/When Quit: Aug 02, 1987 Type Used: Cigarettes 2nd Hand Smoke Exposure: No Recent Foreign Travel: No Recent Infectious Disease Expo: No Recent Hopitalizations: Yes Physical Abuse Screen: No Sexual Abuse: No Immunizations Up To Date Tetanus Booster (TDap): More than 5yrs Date of Pneumonia Vaccine: May 12, 2018 Date of Influenza Vaccine: May 08, 2018 Past Medical History Discussed below Family Medical History Significant Family History: Heart Disease Family History: Cardiovascular disease 19 MOTHER G8 BROTHER G8 SISTER Cervical cancer 19 MOTHER Review of Systems Constitutional: malaise, weakness, other (Unable to provide any review of systems) Reviewed Test Results Reviewed Test Results Lab Laboratory Tests Test 07/22/18 05:52 07/22/18 06:42 07/22/18 10:13 07/22/18 15:50 Range/Units Glucometer 124 H 90 128 H 70-110 MG/DL White Blood Count 8.6 4.3-11.0 10^3/uL Red Blood Count 3.77 L 4.35-5.85 10^6/uL Hemoglobin 11.1 L 13.3-17.7 G/DL Hematocrit 35 L 40-54 % Mean Corpuscular Volume 93 80-99 FL Mean Corpuscular Hemoglobin 29 25-34 PG Mean Corpuscular Hemoglobin Concent 32 32-36 G/DL Red Cell Distribution Width 18.6 H 10.0-14.5 % Platelet Count 219 130-400 10^3/uL Mean Platelet Volume 11.3 H 7.4-10.4 FL Neutrophils (%) (Auto) 74 42-75 % Lymphocytes (%) (Auto) 12 12-44 % Monocytes (%) (Auto) 12 0-12 % Eosinophils (%) (Auto) 1 0-10 % Basophils (%) (Auto) 0 0-10 % Neutrophils # (Auto) 6.4 1.8-7.8 X 10^3 Lymphocytes # (Auto) 1.0 1.0-4.0 X 10^3 Monocytes # (Auto) 1.0 0.0-1.0 X 10^3 Eosinophils # (Auto) 0.1 0.0-0.3 10^3/uL Basophils # (Auto) 0.0 0.0-0.1 10^3/uL Erythrocyte Sedimentation Rate 74 H 0-30 MM/HR Sodium Level 140 135-145 MMOL/L Potassium Level 4.0 3.6-5.0 MMOL/L Chloride Level 101 98-107 MMOL/L Carbon Dioxide Level 29 21-32 MMOL/L Anion Gap 10 5-14 MMOL/L Blood Urea Nitrogen 22 H 7-18 MG/DL Creatinine 0.94 0.60-1.30 MG/DL Estimat Glomerular Filtration Rate > 60 BUN/Creatinine Ratio 23 Glucose Level 124 H 70-105 MG/DL Calcium Level 9.6 8.5-10.1 MG/DL Corrected Calcium 10.2 H 8.5-10.1 MG/DL Total Bilirubin 0.4 0.1-1.0 MG/DL Aspartate Amino Transf (AST/SGOT) 23 5-34 U/L Alanine Aminotransferase (ALT/SGPT) 12 0-55 U/L Alkaline Phosphatase 93 40-136 U/L Total Protein 8.2 6.4-8.2 GM/DL Albumin 3.2 3.2-4.5 GM/DL Physical Exam Vital Signs Vital Signs - First Documented 07/21/18 21:50 Temp 97.4 Pulse 90 Resp 16 B/P (MAP) 137/80 (99) Pulse Ox 99 O2 Delivery Nasal Cannula O2 Flow Rate 2.50 Capillary Refill : Height, Weight, BMI Height: 5'5.00" Weight: 167lbs. 0.7oz. 75.726382mp; 27.8 BMI Method:Stated General Appearance: No Apparent Distress, WD/WN, Moderate Distress Eyes: Bilateral Eye Normal Inspection, Bilateral Eye PERRL, Bilateral Eye EOMI HEENT: TMs Normal, Pharynx Normal Neck: Normal Inspection, Supple Respiratory: Chest Non Tender, No Respiratory Distress, Crackles, Decreased Breath Sounds Cardiovascular: Regular Rate, Rhythm, No Gallop, Normal Peripheral Pulses, Systolic Murmur Gastrointestinal: No Organomegaly, Non Tender, Soft, Abnormal Bowel Sounds Back: Normal Inspection Extremity: Normal Capillary Refill, Normal Inspection Neurologic/Psychiatric: Alert, Motor Weakness Skin: Normal Color, Warm/Dry Lymphatic: No Adenopathy A/P-Cardiology Admission Diagnosis Debility CAD HTN Chronic atrial fibrillation Assessment/Plan Debility, receiving physical therapy Status post respiratory failure, pneumonia, silent aspiration, on Antibiotics, followed by primary care physician Urosepsis, history of kidney stone and nephrostomy tube, on antibiotics and managed by primary care team Silent aspiration, status post feeding tube placement Coronary artery disease, history of CABG done in the remote past. Patient had a stent done in December 2001 using MultiLink 2.518 mm to the proximal right coronary artery, 2017 had a Cypher stent 3.530 mm to the proximal and mid circumflex artery. Has been followed and managed by primary flow floor attendant Dr. Mendez in [place]. Continue to follow History of congestive heart failure, reported ejection fraction 54 percent. MPI in 2013, continue to monitor Paroxysmal atrial fibrillation maintained on amiodarone, intolerant to oral anticoagulation secondary to recurrent nosebleed, on his transfer from [facility] patient is still on Loading dose of Amiodarone until July 26, Patient is maintained on Amlodipine, Cardizem, Lopressor and Digoxin. I will continue to monitor heart rate and blood pressure and try to get him off Amlodipine, monitor blood pressure and heart rate and check digoxin level Patient has been maintained on mexiletine. Probably due to ventricular fibrillation and history of shock from his defibrillator, known to have [facility] ICD implanted by Dr. vidales in [place]. Continue on Mexiletine COPD, chronic dyspnea, followed by primary care physician Chronic pedal edema, diuresis and monitor electrolytes Diabetes mellitus, followed and managed by primary care physician Clinical Quality Measures DVT/VTE Risk/Contraindication: Risk Factor Score Per Nursin RFS Level Per Nursing on Admit: 4+=Very High JOHN ALFARO MD Jul 22, 2018 16:33
[2018-07-22] MEDS ORDERED: TROUGH ORDER-PHARMACY XX ONE (17:00)
[2018-07-22] MEDS: VANCOMYCIN INJECTION 1,500 MG in NS IV 500 ML 500 ML IV SCH (18:04)
--- NOTE | 2018-07-22 21:09 | PM&R Post Admission Assessment ---
Post Admission Physician Asses Date seen by provider: Jul 22, 2018 Time seen by provider: 20:30 The preadmission screen agrees with the post admission assessment that the patient is a good candidate for inpatient rehabilitation. The patient will have a comprehensive program of inpatient rehabilitation with a goal of maximizing level of functional independence prior to discharge home with spouse. The patient will have PT/OT ninety minutes per day, each discipline, five days a week for 2 weeks for gait, strengthening, conditioning, balance, ADLs, any patient/family/caregiver training as necessary. Speech therapy to do cognitive assessment and treat as indicated for 1 to 2 we3ks for 30 to 45 min per day 5 days a week. Rehabilitation nursing to assist with bowel , bladder, skin, wound care, medication administration, pain management. Health And Physical Education Teacher to assist with discharge planning, community reentry. SCD's for DVT prophylaxis. He appears to be well motivated to participate in three hours of therapy a day. He should be able to tolerate three hours of therapy a day from a medical standpoint. He should benefit from the three hours of therapy a day. He has a reasonable discharge plan, reasonable discharge rehabilitation goals and a supportive family. He has various comorbidities that need to be closely monitored with medications and treatments adjusted on a daily basis as needed. These include: O2 dependence Debility PAF Dysphagia NPO on Tube feeds COPD Chronic pedal edema DM [facility] code 03.3 Etiologic DX Disuse myopathy Barriers to discharge for this patient who had been Modified independent to supervision prior to this are for him to be modified independent to supervision for ADLs and mobility skills prior to discharge home with spouse, so as to lessen the burden of the caregivers. Risks for this patient include: 1. Fall 2. Fracture 3. DVT 4. Pulmonary embolism 5. Wound infection 6. Skin breakdown 7. Contractures 8. Poorly controlled pain 9. Urinary retention 10. UTI 11. Recurrent pneumonia 12. Aspiration 13. poorly controlled DM Estimated Length of Stay: 18 days Prognosis: Rehab prognosis appears good for goal of discharge home with spouse modified independent to supervision for ADLs and mobility skills. Date Identified: Jul 22, 2018 Time Identified: 20:30 Action Plan to Resolve CSMI: Transfer meds from OSH reviewed Resp treatments adjusted General: Alert, Cooperative, No Acute Distress HEENT: Atraumatic, PERRLA, EOMI, Mucous Memb Moist/[place], Other (02 by N/C in place) Lungs: Other (Plus congestion) Heart: Regular Rate Abdomen: Normal Bowel Sounds, Soft, No Tenderness, Other (Peg Tube in place) Extremities: Other (Plus edema) Neuro: Other (Confusion strength 4/5 LES 4-/5 Upper limbs) NORRIS CARR MD Jul 22, 2018 21:09
[2018-07-22] MEDS: ATORVASTATIN 40 MG (LIPITOR) TABLET PO SCH (21:24)
[2018-07-22] MEDS: RT-ALBUTEROL/IPRATROPIUM 3 ML (DUONEB) VIAL INH SCH (21:51)
--- NOTE | 2018-07-22 22:55 | HISTORY AND PHYSICAL ---
DATE OF SERVICE: 07/22/2018 CHIEF COMPLAINT: Difficulty with walking. HISTORY OF PRESENT ILLNESS: The patient is a 78-year-old male who was admitted to [facility] for treatment of sepsis due to UTI and aspiration pneumonia. The patient was treated but had resulting disuse myopathy from this and was referred to inpatient rehabilitation unit. Sepsis was due to methicillin-resistant Staphylococcus aureus. His pneumonia was due to pseudomonas. The patient has paroxysmal atrial fibrillation which is controlled with medication. He had been modified independent to supervision prior to this and living with his spouse in a usp apartment in [place]. PCP is Dr. Ybarra. Currently, he is min assist for transfers and gait, short distances. He has limited endurance. He is O2 dependent, has dyspnea on exertion. He is fairly dependent for toileting and dressing. He is somewhat discouraged and hopes to return home soon with his spouse. PAST MEDICAL HISTORY: Sepsis due to UTI with history of kidney stone and nephrostomy tube, managed by Dr. Ely, coronary artery disease, congestive heart failure, paroxysmal atrial fibrillation, COPD, chronic pedal edema, diabetes mellitus. The patient's spouse indicates that he had been on O2 at home until recently. PAST SURGICAL HISTORY: CABG. ALLERGIES: PENICILLIN, CODEINE. FAMILY HISTORY: Heart disease, cervical cancer. REVIEW OF SYSTEMS: A 10-point review of systems significant for confusion, weakness, dyspnea on exertion. MEDICATIONS: Amiodarone 200 mg p.o. daily, Lipitor 40 mg p.o. each day at bedtime, vancomycin IV daily, cefepime IV q.8 hours, ASA 81 mg p.o. daily, Robitussin-DM 10 mL p.o. t.i.d., acidophilus 1 tablet p.o. b.i.d., Colace 100 mg p.o. b.i.d., digoxin 0.125 mg p.o. daily, Protonix 40 mg p.o. daily, Calmoseptine ointment apply to affected area b.i.d., Lopressor 12.5 mg p.o. b.i.d., Pyridium 200 mg p.o. t.i.d. p.c., mexiletine 150 mg p.o. q.8 hours, furosemide 20 mg p.o. b.i.d., K-Dur 15 mEq p.o. daily, NovoLog insulin sliding scale regimen A, DuoNeb treatments 3 mL q.6h. p.r.n. shortness of breath. PHYSICAL EXAMINATION: GENERAL: Significant for a frail elderly man lying in bed, quite a bit of congestion, in no acute distress. VITAL SIGNS: He is afebrile, pulse is 91 and regular, respirations 16, blood pressure 111/57, O2 sat 99% on 2 liters of O2 by nasal cannula. HEENT: Vision, speech, hearing appear functional. No oral lesion is noted. NECK: Supple without mass. HEART: Irregular rhythm. CHEST: Congestion audible with some rhonchi. ABDOMEN: Soft, nontender. Bowel sounds present. PEG tube in place. EXTREMITIES: Trace edema, both ankles. No calf tenderness. MUSCULOSKELETAL: The patient has functional passive range of motion in all 4 limbs. NEUROLOGIC: Speech therapy notes confusion with memory impairment. Sensation is grossly intact to touch. He is somewhat hard of hearing. He is reported to have some bowel and bladder incontinence. Strength in lower limbs proximally 4/5, 4-/5 both upper limbs. He has difficulty sometimes participating in exam. IMPRESSION: 1. 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 2. Status post respiratory failure due to sepsis with pneumonia. 3. Sepsis due to urinary tract infection, treated, status post nephrostomy. 4. Atrial fibrillation, controlled with medication. 5. Dysphagia with silent aspiration , status post PEG tube placement, n.p.o., 6. Confusion multifactorial. PLAN: The patient will have a comprehensive program of inpatient rehabilitation with goal of maximizing level of functional independence prior to discharge home with spouse. The patient will have PT, OT 90 minutes per day each discipline 5 days a week for 18 days with the above goals in mind. Specifically, return to prior level of function or better. Speech therapy has done cognitive assessment and treat as indicated 30 to 45 minutes per day 5 days a week for 1 to 2 weeks. Rehabilitation nursing assist with bowel, bladder, skin care, tube feed administration, pain management, medication administration. director outpatient services for discharge planning, community reentry. Follow up with hospitalist service in lieu of [facility]. Follow up with Dr. Fnoseca cardiology as per his schedule. Increase DuoNeb treatments to q.4 hours scheduled.Dietary Consult re Tube feeds. ESTIMATED LENGTH OF STAY: 18 days. PROGNOSIS: Rehab prognosis appears good for goal of discharging home with spouse at prior level of function. DIET: N.p.o. on tube feedings. CODE STATUS: Full code. Job ID: [id number] DocumentID: [id number] Dictated Date: 07/22/2018 21:26:11 Loader Magazine Grinder Date: 07/22/2018 22:55:26 Dictated By: NORRIS CARR MD MTDD
[2018-07-23] MEDS: MEXILETINE 150 MG (MEXITIL) CAPSULE PO SCH ×4 (00:42→23:46)
[2018-07-23] MEDS: RT-ALBUTEROL/IPRATROPIUM 3 ML (DUONEB) VIAL INH SCH ×6 (02:07→22:14)
[2018-07-23 04:55] VITALS: BP 124/75
[2018-07-23] MEDS: CEFEPIME INJECTION 2,000 MG in NS (IVPB) 50 ML IV SCH ×3 (05:37→21:34)
[2018-07-23] MEDS: KCL 20 MEQ TAB (K-DUR) PO SCH (05:37)
[2018-07-23] MEDS: FUROSEMIDE 20 MG (LASIX) TAB PO SCH ×2 (05:38→17:21)
[2018-07-23] MEDS: DILTIAZEM 60 MG (CARDIZEM) TAB PO SCH ×3 (05:38→21:35)
[2018-07-23] MEDS: PHENAZOPYRIDINE 100 MG (PYRIDIUM) TABLET PO SCH ×3 (05:38→17:21)
[2018-07-23] MEDS: inSUlin ASPART (NovoLOG) 1 UNIT/0.01 ML (CHARGE PER UNIT) SC SCH ×4 (05:39→20:41)
--- NOTE | 2018-07-23 07:04 | Individualized Plan of Care ---
Individualized Plan of Care Rehab Nursing IPOC Order Admission Date Jul 21, 2018 at 20:05 Current Orders Orders Amiodarone Tablet (Cordarone Tablet) (07/26/18 09:00) Aspirin Chewable Tablet (Baby Aspirin Ch (07/22/18 09:00) Atorvastatin Tablet (Lipitor) (07/22/18 21:00) Diltiazem Tablet (Cardizem Tablet) (07/21/18 22:00) Guaifenesin/Dm Syrup (Robitussin Dm Syru (07/22/18 09:00) Lactobacillus Acidophilus Cap (Acidophil (07/22/18 09:00) Albuterol/Ipra Inhalation Soln (Duoneb I (07/21/18 21:45) Svn Small Volume Nebulizer (07/21/18 21:44) Metoprolol Tartrate (Ir) Tab (Lopressor (07/22/18 09:00) Docusate Sodium Capsule (Colace Capsule) (07/22/18 09:00) Digoxin Tablet (Lanoxin Tablet) (07/22/18 09:00) Furosemide Tablet (Lasix Tablet) (07/22/18 07:00) Amlodipine Tablet (Norvasc Tablet) (07/22/18 09:00) Potassium Chloride (Tablet) (K Dur Table (07/22/18 07:00) Pantoprazole Tablet (Protonix Tablet) (07/22/18 09:00) Mexiletine Capsule (Mexiletine Capsule) (07/21/18 22:00) Magnesium Oxide Tablet (Mag Ox Tablet) (07/22/18 09:00) Phenazopyridine Tablet (Pyridium Tablet) (07/22/18 08:00) Insulin Aspart (Novolog) (Novolog (Charg (07/22/18 06:00) Consult Physician (07/21/18 22:36) Nothing By Mouth (07/22/18 Breakfast) Admission Order(Inpt,Obs,Sdc) (07/21/18 22:49) Code/Resuscitation (07/21/18 22:49) Initiate Admission Nursing Pro .admission (07/21/18 22:49) Isolation Central Supply Req (07/21/18 22:49) Diltiazem Tablet (Cardizem Tablet) (07/22/18 06:00) Accucheck Achs ACHS (07/22/18 01:38) Comprehensive Metabolic Panel (07/22/18 06:13) Mexiletine Capsule (Mexiletine Capsule) (07/22/18 08:00) Erythrocyte Sedimentation Rate (07/22/18 07:51) Cbc With Automated Diff (07/22/18 07:51) Physical Therapy [place] (07/22/18 07:51) Occupational Therapy Order (07/22/18 07:51) Speech Therapy Orders (07/22/18 07:51) Menthol/Zinc Oxide Ointment (Calmoseptin (07/22/18 09:00) Cefepime Injection (Maxipime Injection) (07/22/18 14:00) Vancomycin Injection (Vancomycin Injecti (07/22/18 18:00) Amiodarone Tablet (Cordarone Tablet) (07/22/18 09:00) Metoprolol Tartrate (Ir) Tab (Lopressor (07/22/18 09:00) Ondansetron Oral Dissolve Tab (Zofran (07/22/18 08:30) Metoprolol Tartrate (Ir) Tab (Lopressor (07/22/18 09:00) Nursing Communication (Order) (07/22/18 08:31) Tube Feeding (Diet) (07/22/18 08:51) Amiodarone Tablet (Cordarone Tablet) (07/26/18 09:00) Amiodarone Tablet (Cordarone Tablet) (07/22/18 09:00) Magnesium Hydroxide Oral Susp (Mom Oral (07/22/18 10:45) Consult Physician (07/22/18 11:22) Trough Order (Trough Order-Pharmacy Orde (07/22/18 17:00) Vancomycin,Trough (07/22/18 17:00) Patient Visit (07/22/18 ) Pt Eval Moderate Complexity (07/22/18 ) Functional Activities, Ea 15 (07/22/18 ) Patient Visit (07/22/18 ) Speech Sound Lang Comp (07/22/18 ) Tube Feeding (Diet) 06,10,14,18,22 (07/22/18 14:00) Telesitter Service Q4HR (07/22/18 13:45) Patient Visit (07/22/18 ) Functional Activities, Ea 15 (07/22/18 ) Therapeutic, Group (07/22/18 ) Cbc With Automated Diff (07/29/18 06:00) Comprehensive Metabolic Panel (07/29/18 06:00) Erythrocyte Sedimentation Rate (07/29/18 06:00) Consult Physician (07/22/18 19:19) Albuterol/Ipra Inhalation Soln (Duoneb I (07/22/18 22:00) Svn Small Volume Nebulizer (07/22/18 21:14) Rehab Nursing Orders: Ongoing Assess. of Cognitive Status, Ongoing Assess. of Function Status, Disease Management & Educaiton, DVT Prophylaxis, Fall Prevention, Fluid/Electrolyte/Nutrition Mgmt, Infection Prevention, Medication Management & Education, Management of Risks & Complications, Management of Skin Intergrity, Nutrition Management, Pain Management, Patient/Family Support, Safety Management, Swallow Precautions PT IPOC Problem List: Activity Tolerance, Functional Strength, Safety, Balance, Gait, Transfer, Bed Mobility Treatment Plan: Continue Plan of Care Bed Mobility, Education, Functional Activity [place], Functional Strength, Group Therapy, Gait, Safety, Therapeutic Exercise, Transfers Treatment Duration: Aug 12, 2018 Frequency: At least 5 of 7 days/Wk (IRF) Estimated Hrs Per Day: 1.5 hours per day OT IPOC Problems: Decreased Activ Tolerance, Decreased Safety Aware, Decreased UE Strength, Dependent Transfers, Impaired Bed Mobility, Impaired Cognition, Impaired Coordination, Impaired Funct Balance, Impaired I ADL's, Impaired Self- Care Skills, Restricted Funct UE ROM OT Treatment, Training and Edu: Yes Plan of Care: ADL Retraining, Functional Mobility, Group Exercise/Act as Ind, UE Funct Exercise/Act Treatment Duration: Aug 19, 2018 Frequency: At least 5 of 7 days/Wk (IRF) Estimated Hrs Per Day: 1.[address] IPOC Speech Therapy Treatment Plan: Continue Plan of Care Treatment Duration: Jul 26, 2018 Frequency: 5 times per week Estimated Hrs Per Day: .5 hour per day Vegetable Vendor/Case Mgmt Vegetable Vendor/Case Managemen: Discharge Planning, Patient/Family Counseling Dietitian/Ux Design Lead Dietitian/Ux Design Lead to monitor nutritional status and make changes and/or recommendations as needed and work with speech pathology on dietary upgrades as the occur. Physician IPOC Medical Issues being managed closely and that require the 24 hour availability of a physician: A FIB CAD HTN Dysphagia NPO on tube feeds COPD DM I[facility] code 03.3 Etiologic DX Disuse myopathy Medical Issues: DVT Prophylaxis, Falls Precautions, Fluid/Electrolyte/ Nutrition Balance, Infection Protection, Pain Management, Swallowing Precautions , Other (List) (as per above) Brief Synthesis of Preadmission Screen, Post-Admission Evaluation, and Therapy Evaluations:78 yo male who developed sepsis from UTI and Pneumonia and found to have silent aspiration .Peg tube placed and patient NPO and on Tube feeds.Had been Modified Independent to supervision prior to this and living with spouse PCP DR Ybarra Has Memory impairment and ST following patient as well.PMH as per above Cardiology following.Has contact precautions Medical Prognosis: good Anticipated Length of Stay: 08-19-18 return to [facility] or better Anticipated d/c Destination: Home with spouse and [facility] NORRIS CARR MD Jul 23, 2018 07:04
[2018-07-23] MEDS: DIGOXIN 0.125 MG (LANOXIN) TAB PO SCH (08:55)
[2018-07-23] MEDS: PANTOPRAZOLE 40 MG (PROTONIX) TAB PO SCH (08:55)
[2018-07-23] MEDS: meTOprolol TARTRATE 25 MG (LOPRESSOR) TABLET PO SCH ×2 (08:55→21:35)
[2018-07-23] MEDS: ASPIRIN 81 MG CHEW (CHILDREN'S ASA) PO SCH (08:55)
[2018-07-23] MEDS: LACTOBACILLUS ACIDOPHILUS (PROBIOTIC) CAPSULE PO SCH ×2 (08:55→21:34)
[2018-07-23] MEDS: DOCUSATE SODIUM 100 MG (COLACE) CAP PO SCH ×2 (08:56→21:35)
[2018-07-23] MEDS: guaiFENesin/DM (ROBITUSSIN DM) 10 ML UDC PO SCH ×3 (08:56→21:34)
[2018-07-23] MEDS: AMIODARONE 200 MG (CORDARONE) TAB PO SCH ×2 (08:56→21:35)
[2018-07-23] MEDS: MENTHOL/ZINC OXIDE (CALMOSEPTINE) 113 GM TUBE TOP SCH ×2 (08:58→21:34)
--- NOTE | 2018-07-23 12:29 | Progress Note-Hospitalist ---
Subjective HPI/CC On Admission Date Seen by Provider: Jul 23, 2018 Time Seen by Provider: 11:00 CC: Severe debility HPI: This is a 78-year-old white male [facility] patient was admitted to inpatient rehabilitation for IV medication and severe debility resolution. He was admitted to [facility] for 11 days requiring PEG tube placement due to silent aspiration and urinary stent placement due to obstructive stone in ureter and maintained on antibiotic regimen with aggressive physical therapy. I reviewed old records and culture results from infectious disease and reviewed current lab results along with vital signs. He is sitting up in chair drowsy but oriented 3 but appears to be severely chronically ill. Her goal is to return to independent ADL function along with completion of IV antibiotics. Subjective/Events-last exam Patient is sleeping at bedside No pain is reported Delirium at night she reports Wants him to go home and I am unsure that will be possible but will try to help him in any way possible Review of Systems General: Fatigue Pulmonary: Cough Neurological: Confusion Objective Exam Vital Signs Vital Signs Date Time Temp Pulse Resp B/P (MAP) Pulse Ox O2 Delivery O2 Flow Rate FiO2 07/23/18 10:27 96 Nasal Cannula 2.00 07/23/18 04:55 96.8 90 20 124/75 (91) Capillary Refill : General Appearance: No Apparent Distress, WD/WN, Chronically ill, Other ( sleeping) Respiratory: No Accessory Muscle Use, No Respiratory Distress, Crackles, Decreased Breath Sounds Cardiovascular: Regular Rate, Rhythm, No Edema, No Gallop, No JVD, No Murmur, Normal Peripheral Pulses Results/Procedures Lab Patient resulted labs reviewed. Assessment/Plan Assessment and Plan Assess & Plan/Chief Complaint Assessment: MRSA pneumonia Pseudomonas UTI Severe debilitated state CAD previous bypass graft ICD defibrillator in place Presbycusis Sleep apnea Chronic respiratory failure Plan: Monitor labs PEG tube feedings Speech therapy PT/OT Long recovery expected Consult Dr Fonseca is appreciated Diagnosis/Problems Diagnosis/Problems (1) MRSA pneumonia Status: Acute Qualifiers: Laterality: unspecified laterality Lung location: unspecified part of lung Qualified Codes: J15.212 - Pneumonia due to methicillin resistant Staphylococcus aureus (2) Pseudomonas urinary tract infection Status: Acute (3) Debility Status: Acute (4) Pyelonephritis Status: Acute (5) Renal calculus, left Status: Acute (6) Acute renal insufficiency Status: Resolved Resolution Date/Time: 06/16/18 @ 17:54 (7) Diabetes mellitus, type 2 Status: Chronic Qualifiers: Diabetes mellitus senior care insulin use: with senior care use Diabetes mellitus complication status: with circulatory complication Diabetes mellitus complication detail: with other circulatory complications Qualified Codes: E11.59 - Type 2 diabetes mellitus with other circulatory complications; Z79.4 - intermediate (current) use of insulin (8) Congestive heart failure Status: Chronic Qualifiers: Heart failure type: unspecified (9) COPD (chronic obstructive pulmonary disease) Status: Chronic Qualifiers: COPD type: unspecified COPD Qualified Codes: J44.9 - Chronic obstructive pulmonary disease, unspecified (10) Paroxysmal atrial fibrillation Status: Chronic (11) CAD (coronary artery disease) Status: Chronic Qualifiers: Coronary Disease-Associated Artery/Lesion type: red devil artery [place] vs. transplanted heart: red devil heart Associated angina: without angina Qualified Codes: I25.10 - Atherosclerotic heart disease of red devil coronary artery without angina pectoris (12) ICD (implantable cardioverter-defibrillator) in place Status: Chronic Clinical Quality Measures DVT/VTE Risk/Contraindication: Risk Factor Score Per Nursin RFS Level Per Nursing on Admit: 4+=Very High BRIGITTE LEMA DO Jul 23, 2018 12:29
--- NOTE | 2018-07-23 13:29 | Cardiology Progress Note ---
Subjective Date Seen by Provider: Jul 23, 2018 Time Seen by Provider: 08:30 Subjective/Events-last exam patient was seen at bedside, he was comfortable, denied any active pain. More awake today and responding appropriately, still have some confusion Review of Systems General: No Chills, No Night Sweats; Fatigue, Malaise; No Appetite, No Other HEENT: No Head Aches, No Visual Changes, No Eye Pain, No Ear Pain, No Dysphasia , No Sinus Congestion, No Post Nasal Drip, No Sore Throat, No Other Pulmonary: Dyspnea; No Cough, No Pleuritic Chest Pain, No Other Cardiovascular: No: Chest Pain, Palpitations, Orthopnea, Paroxysmal Noc. Dyspnea, Edema, Lt Headedness, Other Objective-Cardiology Exam Last Set of Vital Signs Vital Signs 07/23/18 07/23/18 04:55 10:27 Temp 96.8 Pulse 90 Resp 20 B/P (MAP) 124/75 (91) Pulse Ox 96 O2 Delivery Nasal Cannula O2 Flow Rate 2.00 Capillary Refill : I&O Intake and Output 07/23/18 00:00 Intake Total 1440 ml Balance 1440 ml Intake Oral 0 ml IV Total 50 ml Tube Feeding 1190 ml Other 200 ml # Voids 9 General: Alert, Cooperative, No Acute Distress HEENT: Atraumatic, PERRLA, EOMI, Mucous Memb Moist/[place], Other (02 by N/C in place) Lungs: Other (Plus congestion) Heart: Regular Rate, Normal S1, Normal S2 Abdomen: Normal Bowel Sounds, Soft, No Tenderness, Other (Peg Tube in place) Extremities: No Clubbing, Other (Plus edema) Skin: No Rashes Neuro: Normal Speech, Other (Confusion strength 4/5 LES 4-/5 Upper limbs) Results Lab Laboratory Tests Test 07/22/18 15:50 07/22/18 16:55 07/22/18 20:13 07/23/18 04:59 Range/Units Glucometer 128 H 140 H 108 70-110 MG/DL Vancomycin Level Trough 12.9 10.0-20.0 UG/ML Test 07/23/18 11:05 Range/Units Glucometer 136 H 70-110 MG/DL A/P-Cardiology Admission Diagnosis Debility CAD HTN Chronic atrial fibrillation Assessment/Plan Debility, continue on physical therapy. Status post respiratory failure, pneumonia, silent aspiration, on Antibiotics, followed by primary care physician Urosepsis, history of kidney stone and nephrostomy tube, on antibiotics and managed by primary care team Silent aspiration, status post feeding tube placement Coronary artery disease, history of CABG done in the remote past. Patient had a stent done in December 2001 using MultiLink 2.518 mm to the proximal right coronary artery, 2017 had a Cypher stent 3.530 mm to the proximal and mid circumflex artery. Has been followed and managed by primary orthophoto tech/draftsman Dr. Mendez in [place]. Continue to follow History of congestive heart failure, reported ejection fraction 54 percent. MPI in 2013, continue to monitor Paroxysmal atrial fibrillation maintained on amiodarone, intolerant to oral anticoagulation secondary to recurrent nosebleed, on his transfer from [facility] patient is still on Loading dose of Amiodarone until July 26, Patient is maintained on Cardizem, Lopressor and Digoxin, continue to monitor, no changes are recommended Patient has been maintained on mexiletine. Probably due to ventricular fibrillation and history of shock from his defibrillator, known to have [facility] ICD implanted by Dr. vidales in [place]. Continue on Mexiletine COPD, chronic dyspnea, followed by primary care physician Chronic pedal edema, diuresis and monitor electrolytes Diabetes mellitus, followed and managed by primary care physician Clinical Quality Measures DVT/VTE Risk/Contraindication: Risk Factor Score Per Nursin RFS Level Per Nursing on Admit: 4+=Very High JOHN ALFARO MD Jul 23, 2018 13:29
--- NOTE | 2018-07-23 14:41 | NUR ---
PT INCONTINENT OF URINE. CHUX REPLACED AND CLEANED PT GROIN AREA AND BOTTOM. REPOSITIONED PT IN MORE TOWARDS TOP OF BED. PILLOWS IN PLACE UNDER HEAD AND ARMS.
[2018-07-23 17:19] VITALS: BP 122/70
[2018-07-23] MEDS: VANCOMYCIN INJECTION 1,500 MG in NS IV 500 ML 500 ML IV SCH (17:22)
[2018-07-23] MEDS: ATORVASTATIN 40 MG (LIPITOR) TABLET PO SCH (21:34)
[2018-07-24] MEDS: RT-ALBUTEROL/IPRATROPIUM 3 ML (DUONEB) VIAL INH SCH ×5 (02:53→22:00)
[2018-07-24] MEDS: DILTIAZEM 60 MG (CARDIZEM) TAB PO SCH ×3 (05:45→22:25)
[2018-07-24] MEDS: CEFEPIME INJECTION 2,000 MG in NS (IVPB) 50 ML IV SCH ×3 (05:45→22:24)
[2018-07-24 06:00] VITALS: BP 126/65
[2018-07-24] MEDS: FUROSEMIDE 20 MG (LASIX) TAB PO SCH ×2 (06:03→16:49)
[2018-07-24] MEDS: inSUlin ASPART (NovoLOG) 1 UNIT/0.01 ML (CHARGE PER UNIT) SC SCH ×4 (06:03→21:00)
[2018-07-24] MEDS: KCL 20 MEQ TAB (K-DUR) PO SCH (06:03)
[2018-07-24 08:25] VITALS: BP 126/64
--- NOTE | 2018-07-24 08:25 | Cardiology Progress Note ---
Subjective Date Seen by Provider: Jul 24, 2018 Time Seen by Provider: 08:24 Subjective/Events-last exam Patient is in bed. C/o some dyspnea. Denies any chest pain or lightheadedness Review of Systems General: No Night Sweats, No Fatigue, No Malaise HEENT: No Visual Changes, No Dysphasia Pulmonary: Dyspnea, Cough Cardiovascular: No: Chest Pain, Palpitations, Paroxysmal Noc. Dyspnea, Edema Gastrointestinal: No: Nausea, Vomiting, Abdominal Pain Genitourinary: No Dysuria, No Frequency Musculoskeletal: No: neck pain, back pain Neurological: Weakness; No: Numbness, Change in speech, Confusion Objective-Cardiology Exam Last Set of Vital Signs Vital Signs 07/24/18 07/24/18 06:00 06:30 Temp 97.6 Pulse 90 Resp 20 B/P (MAP) 126/65 (85) Pulse Ox 95 O2 Delivery Nasal Cannula O2 Flow Rate 2.00 Capillary Refill : I&O Intake and Output 07/24/18 00:00 Intake Total 2825 ml Output Total 350 ml Balance 2475 ml Intake Oral 0 ml IV Total 615 ml Tube Feeding 1440 ml Other 770 ml Output Urine Total 350 ml # Voids 9 # Bowel Movements 1 General: Alert, Cooperative, No Acute Distress HEENT: Atraumatic, PERRLA, EOMI, Mucous Memb Moist/[place] Lungs: Other (bilat rhonchi) Heart: Regular Rate, Normal S1, Normal S2 Abdomen: Normal Bowel Sounds, Soft, No Tenderness, Other (Peg Tube in place) Extremities: No Clubbing, Other (+1 edema BLE) Skin: No Rashes Neuro: Normal Speech, Other (Confusion strength 4/5 LES 4-/5 Upper limbs) A/P-Cardiology Admission Diagnosis Debility CAD HTN Chronic atrial fibrillation Assessment/Plan Debility, continue on physical therapy. Status post respiratory failure, pneumonia, silent aspiration, on Antibiotics, followed by primary care physician Urosepsis, history of kidney stone and nephrostomy tube, on antibiotics and managed by primary care team Silent aspiration, status post feeding tube placement Coronary artery disease, history of CABG done in the remote past. Patient had a stent done in December 2001 using MultiLink 2.518 mm to the proximal right coronary artery, 2017 had a Cypher stent 3.530 mm to the proximal and mid circumflex artery. Has been followed and managed by primary grain manager Dr. Mendez in [place]. Continue to follow History of congestive heart failure, reported ejection fraction 54 percent. MPI in 2013, continue to monitor Paroxysmal atrial fibrillation maintained on amiodarone, intolerant to oral anticoagulation secondary to recurrent nosebleed, on his transfer from [facility] patient is still on Loading dose of Amiodarone until July 26, Patient is maintained on Cardizem, Lopressor and Digoxin, continue to monitor, no changes are recommended Patient has been maintained on mexiletine. Probably due to ventricular fibrillation and history of shock from his defibrillator, known to have [employer]. Morteza ICD implanted by Dr. vidales in [place]. Continue on Mexiletine COPD, chronic dyspnea, followed by primary care physician Chronic pedal edema, diuresis and monitor electrolytes Diabetes mellitus, followed and managed by primary care physician Clinical Quality Measures DVT/VTE Risk/Contraindication: Risk Factor Score Per Nursin RFS Level Per Nursing on Admit: 4+=Very High BINA RODRIGUEZ Jul 24, 2018 08:25
[2018-07-24] MEDS: PHENAZOPYRIDINE 100 MG (PYRIDIUM) TABLET PO SCH ×3 (08:29→17:38)
[2018-07-24] MEDS: DIGOXIN 0.125 MG (LANOXIN) TAB PO SCH (08:29)
[2018-07-24] MEDS: PANTOPRAZOLE 40 MG (PROTONIX) TAB PO SCH (08:29)
[2018-07-24] MEDS: LACTOBACILLUS ACIDOPHILUS (PROBIOTIC) CAPSULE PO SCH ×2 (08:29→20:25)
[2018-07-24] MEDS: meTOprolol TARTRATE 25 MG (LOPRESSOR) TABLET PO SCH ×2 (08:29→20:25)
[2018-07-24] MEDS: MEXILETINE 150 MG (MEXITIL) CAPSULE PO SCH ×2 (08:30→16:49)
[2018-07-24] MEDS: ASPIRIN 81 MG CHEW (CHILDREN'S ASA) PO SCH (08:30)
[2018-07-24] MEDS: guaiFENesin/DM (ROBITUSSIN DM) 10 ML UDC PO SCH ×3 (08:40→20:25)
[2018-07-24] MEDS: MENTHOL/ZINC OXIDE (CALMOSEPTINE) 113 GM TUBE TOP SCH ×2 (08:40→20:26)
[2018-07-24] MEDS: DOCUSATE SODIUM 100 MG (COLACE) CAP PO SCH (08:40)
--- NOTE | 2018-07-24 08:58 | Physical Therapy Daily Note ---
PT Daily Note-Current Subjective Pt laying Supine in bed upon arrival. PA for Dr Fonseca arrives to see pt as well. Nurse arrives to give morning meds and assist with transfer from bed due to Sp's report of pt being wet. Pain Location: No Pain Reported Mental Status Patient Orientation: Person, Place Attachments: Oxygen Transfers Therapy Code Descriptions/Definitions Functional [place] Measure: 0=Not Assessed/NA 4=Minimal Assistance 1=Total Assistance 5=Supervision or Setup 2=Maximal Assistance 6=Modified [place] 3=Moderate Assistance 7=Complete [place] Therapy Quality Codes: 6 Independent with activity with or without an assistive device 5 Patient requires set up or clean up by helper. Patient completes activity by themselves 4 Supervision or touching assist (CGA). Banks provide cues , steadying assist 3 The helper provides less than half the effort to complete the activity 2 The helper provides more than half the effort to complete the activity 1 Dependent. The helper does all the effort to complete an activity 7 Patient refused to complete or attempt activity 9 The patient did not perform the activity before the current illness or injury 88 Not attempted due to Medical conditions or safety concerns Scootin Rollin Supine to/from Sit: 4 Sit to/from Stand: 4 Sit to Stand (QC): 4 Gait Training Does the Patient Walk?: Yes Distance (FIM): 1=up to 49 ft Distance: 30' Walk 10 feet (QC): 4 Gait Level of Assist: 4 Gait Persons Needed: 1 Gait Assistive Device: FWW Pt has slow bradley and wobbly, unsteady gait. Wheelchair Training Does the Pt Use a Wheelchair?: Yes Wheelchair Distance: 1=up to 49 ft Distance: 30' Wheelchair Level of Assist: 5 Type of Wheelchair: Manual Exercises Seated Therapy Exercises: Ankle pumps, Long arc quads, Hip flexion, Kicking activity, Hip abd/add Seated Reps: 15 Treatments Pt transfers from Supine to EOB at CGA-Min A then EOB to Standing using FWW at CGA due to bed pad being wet. Pt ambulates to restroom to attempt toileting. Pt is given morning meds by Nurse and pt returns to [facility] to rest. Pt completes Seated Ex in [facility] with rest break as needed. Pt has all needs met at end of tx, Nurse present. Assessment Current Status: Fair Progress Pt demonstrates a lack of social awareness and safety during tx. PT Short Term Goals Short Term Goals Time Frame: Jul 29, 2018 Transfers (B,C,W/C) (FIM): 5 Gait (FIM): 2 Distance (FIM): 1=up to 49 ft Gait Assistive Device: FWW PT Manufacturing Test Engineer Goals Manufacturing Test Engineer Goals PT Manufacturing Test Engineer Goals Time Frame: Aug 12, 2018 Transfers (B,C,W/C) (FIM): 6 Sit to Lying (QC): 6 Lying-Sitting on Side/Bed(QC): 6 Sit to Stand (QC): 6 Roll Left to Right (QC): 6 Chair/Txo-wg-Cdzkf Xfer(QC): 6 Car Transfer (QC): 5 Does the Patient Walk: Yes Gait (FIM): 5 (household) Gait distance (FIM): 5=469-31 ft Walk 10 feet (QC): 6 Walk 10ft-Uneven Surface(QC): 6 Walk 50ft with 2 Turns (QC): 6 Walk 150 ft (QC): 88 Gait Level of Assist: 6 Gait Assistive Device: FWW Does the Pt use WC or Scooter?: Yes Wheelchair (FIM): 6 Wheelchair distance (FIM): 3=150 ft Wheel 50 feet with 2 turns (QC: 6 Stairs (FIM): 88 1 Step (curb) (QC): 88 4 Steps (QC): 88 12 Steps (QC): 88 Picking up an Object (QC): 88 PT Plan Problem List Problem List: Activity Tolerance, Functional Strength, Safety, Balance, Gait, Transfer Treatment/Plan Treatment Plan: Continue Plan of Care Treatment Plan: Bed Mobility, Education, Functional Activity [place], Functional Strength, Group Therapy, Gait, Safety, Therapeutic Exercise, Transfers Treatment Duration: Aug 12, 2018 Frequency: At least 5 of 7 days/Wk (IRF) Estimated Hrs Per Day: 1.5 hours per day Patient and/or Family Agrees t: Yes Safety Risks/Education Patient Education: Gait Training, Transfer Techniques, Correct Positioning, Safety Issues Teaching Recipient: Patient, Significant Other Teaching Methods: Discussion Response to Teaching: Reinforcement Needed Time/GCodes Time In: 815 Time Out: 900 Total Billed Treatment Time: 45 Total Billed Treatment 1, FA x2 (30m) & EX (15m) G Codes Necessary: COLTEN La PTA Jul 24, 2018 08:58
--- NOTE | 2018-07-24 10:30 | Progress Note-Hospitalist ---
Subjective HPI/CC On Admission Date Seen by Provider: Jul 24, 2018 Time Seen by Provider: 09:15 CC: Severe debility HPI: This is a 78-year-old white male [facility] patient was admitted to inpatient rehabilitation for IV medication and severe debility resolution. He was admitted to [facility] for 11 days requiring PEG tube placement due to silent aspiration and urinary stent placement due to obstructive stone in ureter and maintained on antibiotic regimen with aggressive physical therapy. I reviewed old records and culture results from infectious disease and reviewed current lab results along with vital signs. He is sitting up in chair drowsy but oriented 3 but appears to be severely chronically ill. Her goal is to return to independent ADL function along with completion of IV antibiotics. Subjective/Events-last exam Patient just got done with working out in gym Overall feels improved Remembered me taking care of him on fourth floor many weeks ago Coarse breath sounds left side Tolerating nebulizers Will check labs and chest x-ray IV antibiotics maintained Review of Systems General: Fatigue Objective Exam Vital Signs Vital Signs Date Time Temp Pulse Resp B/P (MAP) Pulse Ox O2 Delivery O2 Flow Rate FiO2 07/24/18 10:21 97 Nasal Cannula 2.00 07/24/18 08:25 90 126/64 (84) 07/24/18 06:00 97.6 20 Capillary Refill : General Appearance: No Apparent Distress, WD/WN, Chronically ill Respiratory: Chest Non Tender, No Accessory Muscle Use, No Respiratory Distress , Crackles, Decreased Breath Sounds, Wheezing Cardiovascular: Regular Rate, Rhythm, No Edema, No Gallop, No JVD, No Murmur, Normal Peripheral Pulses Neurologic/Psychiatric: Alert, Oriented x3, No Motor/Sensory Deficits, Normal Mood/Affect Results/Procedures Lab Laboratory Tests 07/24/18 11:00 Patient resulted labs reviewed. Assessment/Plan Assessment and Plan Assess & Plan/Chief Complaint Assessment: MRSA pneumonia Pseudomonas UTI Severe debilitated state CAD previous bypass graft ICD defibrillator in place Presbycusis Sleep apnea Chronic respiratory failure Plan: Check labs PEG tube feedings Speech therapy PT/OT Long recovery expected Consult Dr Fonseca is appreciated Check CXR and maintain Nebs Diagnosis/Problems Diagnosis/Problems (1) MRSA pneumonia Status: Acute Qualifiers: Laterality: unspecified laterality Lung location: unspecified part of lung Qualified Codes: J15.212 - Pneumonia due to methicillin resistant Staphylococcus aureus (2) Pseudomonas urinary tract infection Status: Acute (3) Debility Status: Acute (4) Pyelonephritis Status: Acute (5) Renal calculus, left Status: Acute (6) Acute renal insufficiency Status: Resolved Resolution Date/Time: 06/16/18 @ 17:54 (7) Diabetes mellitus, type 2 Status: Chronic Qualifiers: Diabetes mellitus alf insulin use: with alf use Diabetes mellitus complication status: with circulatory complication Diabetes mellitus complication detail: with other circulatory complications Qualified Codes: E11.59 - Type 2 diabetes mellitus with other circulatory complications; Z79.4 - jail (current) use of insulin (8) Congestive heart failure Status: Chronic Qualifiers: Heart failure type: unspecified (9) COPD (chronic obstructive pulmonary disease) Status: Chronic Qualifiers: COPD type: unspecified COPD Qualified Codes: J44.9 - Chronic obstructive pulmonary disease, unspecified (10) Paroxysmal atrial fibrillation Status: Chronic (11) CAD (coronary artery disease) Status: Chronic Qualifiers: Coronary Disease-Associated Artery/Lesion type: [place] artery [place] vs. transplanted heart: [place] heart Associated angina: without angina Qualified Codes: I25.10 - Atherosclerotic heart disease of [place] coronary artery without angina pectoris (12) ICD (implantable cardioverter-defibrillator) in place Status: Chronic Clinical Quality Measures DVT/VTE Risk/Contraindication: Risk Factor Score Per Nursin RFS Level Per Nursing on Admit: 4+=Very High BRIGITTE LEMA DO Jul 24, 2018 10:30
[2018-07-24] MEDS: DOCUSATE SODIUM 10 MG/ML 10 ML UDC (COLACE) PEG SCH ×2 (10:53→21:00)
[2018-07-24] MEDS: AMIODARONE 200 MG (CORDARONE) TAB PO SCH ×2 (10:54→20:25)
[2018-07-24 11:09] LABS: BASOPHILS % (AUTO) 0 % (0-10); EOSINOPHILS # (AUTO) 0.1 10^3/uL (0.0-0.3); EOSINOPHILS % (AUTO) 1 % (0-10); HEMATOCRIT 31 % (40-54); HEMOGLOBIN 9.8 G/DL (13.3-17.7); LYMPHOCYTES # (AUTO) 1.3 X 10^3 (1.0-4.0); LYMPHOCYTES % (AUTO) 15 % (12-44); MEAN CORPUSCULAR HEMOGLOBIN 29 PG (25-34); MEAN CORPUSCULAR HGB CONC 31 G/DL (32-36); MEAN CORPUSCULAR VOLUME 93 FL (80-99); MEAN PLATELET VOLUME 11.3 FL (7.4-10.4); MONOCYTES # (AUTO) 0.9 X 10^3 (0.0-1.0); MONOCYTES % (AUTO) 11 % (0-12); NEUTROPHILS # (AUTO) 6.1 X 10^3 (1.8-7.8); NEUTROPHILS % (AUTO) 73 % (42-75); PLATELET COUNT 198 10^3/uL (130-400); RED BLOOD COUNT 3.37 10^6/uL (4.35-5.85); RED CELL DISTRIBUTION WIDTH 18.7 % (10.0-14.5); WHITE BLOOD COUNT 8.4 10^3/uL (4.3-11.0)
[2018-07-24 11:24] LABS: ALANINE AMINOTRANSFERASE 13 U/L (0-55); ALBUMIN 3.1 GM/DL (3.2-4.5); ALKALINE PHOSPHATASE 89 U/L (40-136); BILIRUBIN,TOTAL 0.4 MG/DL (0.1-1.0); BUN/CREATININE RATIO 24; CALCIUM 9.1 MG/DL (8.5-10.1); CARBON DIOXIDE 32 MMOL/L (21-32); CHLORIDE 97 MMOL/L (98-107); CREATININE SERUM 0.94 MG/DL (0.60-1.30); GFR ESTIMATED > 60; GLUCOSE 115 MG/DL (70-105); POTASSIUM 4.2 MMOL/L (3.6-5.0); SODIUM 137 MMOL/L (135-145); TOTAL PROTEIN 7.8 GM/DL (6.4-8.2)
--- NOTE | 2018-07-24 12:49 | Speech Therapy Daily Note ---
Speech Daily Progress Note Subjective Date Seen by Provider: Jul 24, 2018 Time Seen by Provider: 00:30 Patient noted to have a lot of loose coughing, utilized breathing devices as directed. Objective Patient completed memory tasks related to self with 75% accuracy given mod v/c' s and processing time. Assessment Assessment Current Status: Fair Progress Treatment Plan Continue Plan of Care Communication Comprehension: 2 Expression: 2 Social Cognition Social Interaction: 2 Problem Solvin Memory: 2 Speech Short Term Goals Short Term Goals Short Term Goals 1) Patient will be able to recall new information with 80% or greater given minimal cues. 2) Patient will be able to name items/pictures presented with 80% or greater given minimal cues. 3) Patient will utilize compensatory strategies for safety within his room with 80% or greater given minimal cues. Speech Senior Care Goals Senior Care Goals Patient will improve memory, problem solving and auditory processing in order to return safely home. Speech-Plan Patient/Family Goals Patient/Family Goals: Patient plans to return home with his post rehab. Treatment Plan Speech Therapy Treatment Plan: Continue Plan of Care Patient has calmed down a lot from 2 days ago. Treatment Duration: Jul 26, 2018 Frequency: 5 times per week Estimated Hrs Per Day: .5 hour per day Rehab Potential: Guarded Barriers to Learning: Patient has memory deficits. Safety Risks/Education Teaching Recipient: Patient Teaching Methods: Discussion Response to Teaching: Verbalize Understanding Education Topics Provided: Safety and procedures within his room. Time Speech Therapy Time In: 10:30 Speech Therapy Time Out: 11:00 Total Billed Time: 30 Billed Treatment Time 1 LISA DILAN McdonaldHANDANIELA KHAN Jul 24, 2018 12:49
--- NOTE | 2018-07-24 13:33 | Cardiology Progress Note ---
Subjective Date Seen by Provider: Jul 24, 2018 Time Seen by Provider: 13:32 Subjective/Events-last exam patient was seen and evaluated, sitting up in a chair, feeling better, still having some dyspnea and cough. Review of Systems General: No Chills, No Night Sweats, No Fatigue, No Malaise, No Appetite, No Other HEENT: No Head Aches, No Visual Changes, No Eye Pain, No Ear Pain, No Dysphasia , No Sinus Congestion, No Post Nasal Drip, No Sore Throat, No Other Pulmonary: Dyspnea, Cough; No Pleuritic Chest Pain, No Other Cardiovascular: Edema; No: Chest Pain, Palpitations, Orthopnea, Paroxysmal Noc. Dyspnea, Lt Headedness, Other Objective-Cardiology Exam Last Set of Vital Signs Vital Signs 07/24/18 07/24/18 07/24/18 06:00 08:25 10:21 Temp 97.6 Pulse 90 Resp 20 B/P (MAP) 126/64 (84) Pulse Ox 97 O2 Delivery Nasal Cannula O2 Flow Rate 2.00 Capillary Refill : I&O Intake and Output 07/24/18 00:00 Intake Total 2825 ml Output Total 350 ml Balance 2475 ml Intake Oral 0 ml IV Total 615 ml Tube Feeding 1440 ml Other 770 ml Output Urine Total 350 ml # Voids 9 # Bowel Movements 1 General: Alert, Cooperative, No Acute Distress HEENT: Atraumatic, PERRLA, EOMI, Mucous Memb Moist/[place] Lungs: Other (bilat rhonchi) Heart: Regular Rate, Normal S1, Normal S2 Abdomen: Normal Bowel Sounds, Soft, No Tenderness, Other (Peg Tube in place) Extremities: No Clubbing, Other (+1 edema BLE) Skin: No Rashes Neuro: Normal Speech, Other (Confusion strength 4/5 LES 4-/5 Upper limbs) Results Lab Laboratory Tests 07/24/18 11:00 A/P-Cardiology Admission Diagnosis Debility CAD HTN Chronic atrial fibrillation Assessment/Plan Debility, continue on physical therapy. Status post respiratory failure, pneumonia, silent aspiration, on Antibiotics, followed by primary care physician Urosepsis, history of kidney stone and nephrostomy tube, on antibiotics and managed by primary care team Silent aspiration, status post feeding tube placement Coronary artery disease, history of CABG done in the remote past. Patient had a stent done in December 2001 using MultiLink 2.518 mm to the proximal right coronary artery, 2017 had a Cypher stent 3.530 mm to the proximal and mid circumflex artery. Has been followed and managed by primary pig casting machine operator Dr. Mendez in [place]. Continue to follow History of congestive heart failure, reported ejection fraction 54 percent. MPI in 2013, continue to monitor Paroxysmal atrial fibrillation maintained on amiodarone, intolerant to oral anticoagulation secondary to recurrent nosebleed, on his transfer from [facility] patient is still on Loading dose of Amiodarone until July 26, Patient is maintained on Cardizem, Lopressor and Digoxin, continue to monitor, no changes are recommended Patient has been maintained on mexiletine. Probably due to ventricular fibrillation and history of shock from his defibrillator, known to have [employer]. Morteza ICD implanted by Dr. vidales in [place]. Continue on Mexiletine COPD, chronic dyspnea, followed by primary care physician Chronic pedal edema, diuresis and monitor electrolytes Diabetes mellitus, followed and managed by primary care physician Clinical Quality Measures DVT/VTE Risk/Contraindication: Risk Factor Score Per Nursin RFS Level Per Nursing on Admit: 4+=Very High JOHN ALFARO MD Jul 24, 2018 13:33
--- NOTE | 2018-07-24 14:25 | Occupational Ther Daily Note ---
OT Current Status-Daily Note Subjective Pt. does not report pain, but does state multiple times during treatment that he wants to "go to my room." Appearance Pt. up in chair. Pt. declines showering but does agree to spongebathe. Mental Status/Objective Patient Orientation: Unable to Assess Therapy Code Descriptions/Definitions Functional [place] Measure: 0=Not Assessed/NA 4=Minimal Assistance 1=Total Assistance 5=Supervision or Setup 2=Maximal Assistance 6=Modified [place] 3=Moderate Assistance 7=Complete [place] ADL-Treatment Therapy Code Descriptions/Definitions Functional [place] Measure: 0=Not Assessed/NA 4=Minimal Assistance 1=Total Assistance 5=Supervision or Setup 2=Maximal Assistance 6=Modified [place] 3=Moderate Assistance 7=Complete [place] Therapy Quality Codes: 6 Independent with activity with or without an assistive device 5 Patient requires set up or clean up by helper. Patient completes activity by themselves 4 Supervision or touching assist (CGA). [place] provide cues , steadying assist 3 The helper provides less than half the effort to complete the activity 2 The helper provides more than half the effort to complete the activity 1 Dependent. The helper does all the effort to complete an activity 7 Patient refused to complete or attempt activity 9 The patient did not perform the activity before the current illness or injury 88 Not attempted due to Medical conditions or safety concerns Bathing (FIM): 3 (Pt. washes chest and under arms. Attempts to wash feet but can't reach them. OT does this for him. OT washes pieter area at a later time for him during transfer. ) Shower/Bathe Self (QC): 3 Lower Body Dressing (FIM): 2 (Pt. does not attempt to doff/don slipper socks. Holds up feet for OT to do this for him. When pt. is encouraged, he states that he can't.) Lower Body Dressing (QC): 2 On/Off Footwear (QC): 2 Toileting (FIM): 1 (Pt. requests urinal multiple times but refuses to attempt placing it himself. OT does it for him.) Toileting Hygiene (QC): 2 Transfers (B, C, W/C) (FIM): 4 (Min assist for sit-stand and transfer to chair. ) After ADLs in room, pt. agrees to leave room via wheelchair. Pt. does self propel with cues at first, but then states, "push me." Pt. taken to therapy gym. Pt. encouraged to complete UE exercises with nut/bolt activity, to increase UE strength and fine motor coordination. Pt. does this for awhile, but then starts to request to go back to his room. Pt. states this several times, and is taken back to room. Transfers to reclining chair with min assist. All needs are met. Education OT Patient Education: Correct positioning, Exercise program, Modified ADL techniques, Progress toward Goal/Update tx plan, Purpose of tx/functional activities, Reviewed precautions, Rehab process, Transfer techniques Teaching Recipient: Patient Teaching Methods: Demonstration, Discussion Response to Teaching: Verbalize Understanding, Return Demonstration OT Short Term Goals Short Term Goals Time Frame: Jul 29, 2018 Eating(FIM): 4 Grooming(FIM): 3 Upper Body Dressing(FIM): 3 Lower Body Dressing(FIM): 3 Toileting(FIM): 4 Transfers (B,C,W/C) (FIM): 5 Toilet/Commode Transfer(FIM): 4 Additional Short Term Goals: 1-Demonstrate ADL Tasks, 2-Verbalize Understanding , 3-ImproveStrength/[place] 1=Demonstrate adherence to instructed precautions during ADL tasks. 2=Patient will verbalize/demonstrate understanding of assistive devices/ modifications for ADL. 3=Patient will improve strength/tolerance for activity to enable patient to perform ADL's. OT Longterm Goals Longterm Goals Time Frame: Aug 19, 2018 Eating (FIM): 5 Eating (QC): 5 Groomin Oral Hygiene (QC): 4 Bathing(FIM): 3 Shower/Bathe Self (QC): 3 Upper Body Dressing(FIM): 5 Upper Body Dressing (QC): 4 Lower Body Dressing(FIM): 4 Lower Body Dressing (QC): 4 On/Off Footwear (QC): 4 Toileting(FIM): 5 Toileting Hygiene (QC): 5 Transfers (B,C,W/C) (FIM): 5 Toilet/Commode Transfer(FIM): 5 Toilet/Commode Transfer (QC): 4 Additional Goals: 1-Demonstrate ADL Tasks, 2-Verbalize Understanding, 3- ImproveStrength/[place] 1=Demonstrate adherence to instructed precautions during ADL tasks. 2=Patient will verbalize/demonstrate understanding of assistive devices/ modifications for ADL. 3=Patient will improve strength/tolerance for activity to enable patient to perform ADL's. OT Education/Plan Problem List/Assessment Assessment: Decreased Activ Tolerance, Decreased Safety Aware, Decreased UE Strength, Dependent Transfers, Impaired Bed Mobility, Impaired Funct Balance, Impaired I ADL's, Impaired Self-Care Skills, Restricted Funct UE ROM Discharge Recommendations Plan/Recommendations: Continue POC Therapy D/C Recommendations: 24 hr Supervision Treatment Plan/Plan of Care Treatment,Training & Education: Yes Patient would benefit from OT for education, treatment and training to promote independence in ADL's, mobility, safety and/or upper extremity function for ADL' s. Plan of Care: ADL Retraining, Functional Mobility, Group Exercise/Act as Ind, UE Funct Exercise/Act Treatment Duration: Aug 19, 2018 Frequency: At least 5 of 7 days/Wk (IRF) Estimated Hrs Per Day: 1.5 hours per day Agreement: Yes Rehab Potential: Guarded Time/GCodes Start Time: 09:00 Stop Time: 10:00 Total Time Billed (hr/min): 60 Billed Treatment Time 1, ADL x 30minutes, FA x 30minutes ALFREDO STOVALL OT Jul 24, 2018 14:25
--- NOTE | 2018-07-24 14:56 | Diagnostic Imaging Report ---
INDICATION: Rales in the left lower lobe. TIME OF EXAM: 2:44 PM COMPARISON: Correlation is made with prior chest from 07/06/2018. FINDINGS: The heart is enlarged but stable. There are changes of median sternotomy. Cardiac defibrillator remains in place. There are central congestive changes without evidence of overt failure. No effusion or pneumothorax is seen. IMPRESSION: Central congestion without overt failure. Dictated by: Dictated on workstation # [id number]
--- NOTE | 2018-07-24 15:00 | Therapy Group Daily Note ---
Therapy Daily Group Note Patient Education Topic Other List Below (Using everyday items for strength & resistance training) Exercises LE Seated Exercise, UE Exercise Other/Notes Pt was propelled in [facility] to PT/OT Group. Group consisted of Introductions (Name , How many siblings you have & Favorite [place] present ever received), Socialization, UE/LE Seated Exercises as well as Finding Examples of everyday items that could be used for inexpensive ways of strength & resistance training once home. Pt did not listen well during Group. Pt was trying to propel back to room but Staff encouraged pt to stay. Pt did not give his own example and was very quiet during Group. Pt is not very socially aware of what is going on around him. Pt returned to room at end of Group to rest with all needs met. Start Time: 13:00 Stop Time: 14:00 Total Billed Treatment Time: 60 Total Billed Treatment 1, GRP (60m) COLTEN BRISENO PHOTO TECHNOLOGIST Jul 24, 2018 15:00
[2018-07-24] MEDS ORDERED: POTA20PA28 PO (16:15)
[2018-07-24] MEDS ORDERED: PANT40TA2 PO (16:16)
[2018-07-24] MEDS ORDERED: DOCU-143 PO (16:16)
[2018-07-24] MEDS ORDERED: INSU100V16 SQ (16:16)
[2018-07-24] MEDS ORDERED: AMLO5TAB7 PO (16:16)
[2018-07-24] MEDS ORDERED: ONDN4T PO (16:16)
[2018-07-24] MEDS ORDERED: PHEN-640 PO (16:16)
[2018-07-24] MEDS ORDERED: MAGN311T5 PO (16:16)
[2018-07-24] MEDS ORDERED: METO-387 PO (16:16)
--- NOTE | 2018-07-24 16:18 | NUR ---
UPDATED MED REC WITH THE DISCHARGE MEDICATION LIST TO WHAT THE PATIENT WAS TAKING PRIOR TO DISCHARGE FROM [facility]. NOTE THE FOLLOWING CHANGES WERE MADE WHEN THE PATIENT DISCHARGED TO [facility]IA [facility] THAT ARE NOT CURRENTLY ON THE HOME MED REC. START TAKING: ASPIRIN 81MG DAILY CHEWABLE LIPITOR 40MG HS CEFEPIME 2000MG Q8H X 5 DAYS DILTIAZEM 60MG Q8H GUAIFENESIN 100MG/5ML 10ML TID HYDROPHILIC WOUND DRESSING APPLY TO AFFECTED AREA BID DUONEB Q6H PRN CULTURELLE BID METOPROLOL TARTRATE 25MG 1/2 TAB BID PHENOL SPRAY 2 SPRAYS EVERY 2 HOURS PRN VANCOMYCIN 1500MG DAILY X 8 DAYS CHANGE HOW YOU TAKE: AMIODARONE - TAKE 400MG BID UNTIL 07-25-18 THEN TAKE 200MG BID STOP TAKING: METOPROLOL SUCCINATE
--- NOTE | 2018-07-24 16:32 | NUR ---
ASSOCIATE JUSTICE met with patient and spouse to review team conference summary. As patient remains standby assistance for all transfers, contact guard assistance for short distance ambulation, max assist for bathing and constant cues for safety team, has recommended patient be reevaluate at next team conference on 07/31 Patient spouse are agreeable to this. Although patient was drowsy throughout discussion, he had no objections at this time. Therapy previously reported agitation; however, this is reduced when spouse is present. ASSOCIATE JUSTICE will continue to follow for additional needs.
[2018-07-24 17:18] VITALS: BP 135/78
[2018-07-24] MEDS: VANCOMYCIN INJECTION 1,500 MG in NS IV 500 ML 500 ML IV SCH (17:38)
--- NOTE | 2018-07-24 19:12 | NUR ---
bedside report received from MED ROSS, assume care of pt
--- NOTE | 2018-07-24 20:00 | NUR ---
assessments & interventions completed, see assessments & inventions, held Colace due to loose stools, voiding clear bright yellow urine incontinent, at bedside, meds crushed & given per peg tube
[2018-07-24 20:20] VITALS: BP 109/68
[2018-07-24] MEDS: ATORVASTATIN 40 MG (LIPITOR) TABLET PO SCH (20:24)
--- NOTE | 2018-07-24 21:00 | NUR ---
fsbs 121 no ss insulin given
--- NOTE | 2018-07-24 22:00 | NUR ---
gastric residual 5ml, jevity 1.5 1 container given per g-tube, g-tube flushed with 50ml water prior & after feeding
[2018-07-25] VITALS: BP 144/86
[2018-07-25] MEDS: MEXILETINE 150 MG (MEXITIL) CAPSULE PO SCH ×3 (00:14→18:32)
[2018-07-25] MEDS: RT-ALBUTEROL/IPRATROPIUM 3 ML (DUONEB) VIAL INH SCH ×8 (00:37→22:31)
--- NOTE | 2018-07-25 02:00 | NUR ---
gastric residual 0, jevity 1.5 1 can given per g-tube
[2018-07-25 06:00] VITALS: BP 136/82
[2018-07-25] MEDS: inSUlin ASPART (NovoLOG) 1 UNIT/0.01 ML (CHARGE PER UNIT) SC SCH ×4 (06:00→20:58)
--- NOTE | 2018-07-25 06:00 | NUR ---
gastric residual 5ml jevity 1.5 1 can given per g-tube
[2018-07-25] MEDS: DILTIAZEM 60 MG (CARDIZEM) TAB PO SCH ×3 (06:06→22:26)
[2018-07-25] MEDS: CEFEPIME INJECTION 2,000 MG in NS (IVPB) 50 ML IV SCH ×3 (06:06→22:30)
--- NOTE | 2018-07-25 07:14 | NUR ---
report given to JONATHAN ROSS
[2018-07-25] MEDS: FUROSEMIDE 20 MG (LASIX) TAB PO SCH ×2 (07:46→18:32)
[2018-07-25] MEDS: KCL 20 MEQ POWDER FOR ORAL SOLUTION PEG SCH (07:46)
--- NOTE | 2018-07-25 08:22 | Cardiology Progress Note ---
Subjective Date Seen by Provider: Jul 25, 2018 Time Seen by Provider: 08:20 Subjective/Events-last exam Patient is sitting up in bed, no new complaints. Reports dyspnea slightly improved today. Review of Systems General: No Night Sweats, No Fatigue, No Malaise HEENT: No Visual Changes, No Dysphasia Pulmonary: Dyspnea, Cough Cardiovascular: Edema; No: Chest Pain, Palpitations, Paroxysmal Noc. Dyspnea Gastrointestinal: No: Nausea, Vomiting, Abdominal Pain Genitourinary: No Dysuria, No Frequency Musculoskeletal: No: neck pain, back pain Neurological: No: Weakness, Numbness Objective-Cardiology Exam Last Set of Vital Signs Vital Signs 07/24/18 07/25/18 07/25/18 17:18 06:00 06:13 Temp 97.6 Pulse 90 Resp 20 B/P (MAP) 136/82 (100) Pulse Ox 92 O2 Delivery Nasal Cannula O2 Flow Rate 2.00 Capillary Refill : I&O Intake and Output 07/25/18 00:00 Intake Total 3315 ml Output Total 600 ml Balance 2715 ml Intake Oral 0 ml IV Total 565 ml Tube Feeding 2750 ml Output Urine Total 600 ml # Voids 8 # Urine Diapers 6 # Bowel Movements 2 General: Alert, Cooperative, No Acute Distress HEENT: Atraumatic, PERRLA, EOMI, Mucous Memb Moist/[place] Lungs: Other (bilat rhonchi) Heart: Regular Rate, Normal S1, Normal S2 Abdomen: Normal Bowel Sounds, Soft, No Tenderness, Other (Peg Tube in place) Extremities: No Clubbing, Other (+1 edema BLE) Skin: No Rashes Neuro: Normal Speech, Other (Confusion strength 4/5 LES 4-/5 Upper limbs) Results Lab Laboratory Tests 07/24/18 11:00 A/P-Cardiology Admission Diagnosis Debility CAD HTN Chronic atrial fibrillation Assessment/Plan Debility, continue on physical therapy. Status post respiratory failure, pneumonia, silent aspiration, on Antibiotics, followed by primary care physician Urosepsis, history of kidney stone and nephrostomy tube, on antibiotics and managed by primary care team Silent aspiration, status post feeding tube placement Coronary artery disease, history of CABG done in the remote past. Patient had a stent done in December 2001 using MultiLink 2.518 mm to the proximal right coronary artery, 2017 had a Cypher stent 3.530 mm to the proximal and mid circumflex artery. Has been followed and managed by primary college athletic director Dr. Mendez in [place]. Continue to follow History of congestive heart failure, reported ejection fraction 54 percent. MPI in 2013, continue to monitor Paroxysmal atrial fibrillation maintained on amiodarone, intolerant to oral anticoagulation secondary to recurrent nosebleed, on his transfer from [facility] patient is still on Loading dose of Amiodarone until July 26, Patient is maintained on Cardizem, Lopressor and Digoxin, continue to monitor, no changes are recommended Patient has been maintained on mexiletine. Probably due to ventricular fibrillation and history of shock from his defibrillator, known to have [facility] ICD implanted by Dr. vidales in [place]. Continue on Mexiletine COPD, chronic dyspnea, followed by primary care physician Chronic pedal edema,continue to diurese and monitor electrolytes Diabetes mellitus, followed and managed by primary care physician Clinical Quality Measures DVT/VTE Risk/Contraindication: Risk Factor Score Per Nursin RFS Level Per Nursing on Admit: 4+=Very High BINA RODRIGUEZ Jul 25, 2018 08:22
--- NOTE | 2018-07-25 08:55 | Physical Therapy Daily Note ---
PT Daily Note-Current Subjective Pt. and in room. Pt. doesnt want his to leave to go home. encourages pt. to work hard to get allyssa and that staff will care for him in her absence. Pt. agrees to Rx Pain Location: No Pain Reported Mental Status Patient Orientation: Person, Place Attachments: Oxygen (2L) Transfers Therapy Code Descriptions/Definitions Functional [place] Measure: 0=Not Assessed/NA 4=Minimal Assistance 1=Total Assistance 5=Supervision or Setup 2=Maximal Assistance 6=Modified [place] 3=Moderate Assistance 7=Complete [place] Therapy Quality Codes: 6 Independent with activity with or without an assistive device 5 Patient requires set up or clean up by helper. Patient completes activity by themselves 4 Supervision or touching assist (CGA). [place] provide cues , steadying assist 3 The helper provides less than half the effort to complete the activity 2 The helper provides more than half the effort to complete the activity 1 Dependent. The helper does all the effort to complete an activity 7 Patient refused to complete or attempt activity 9 The patient did not perform the activity before the current illness or injury 88 Not attempted due to Medical conditions or safety concerns Transfers (B, C, W/C) (FIM): 5 Scootin Rollin Supine to/from Sit: 5 Sit to/from Stand: 5 Bed to/from Chair: 5 Gait Training Does the Patient Walk?: Yes Gait (FIM): 2 Distance (FIM): 0=198-60 ft (50x2,40x2) Gait Level of Assist: 4 Gait Persons Needed: 1 Gait Assistive Device: FWW assist for O2 and w/c f/u. min SOB, mask on pt. narrow ANTONI with feet shuffling against one another, pt. attempts to broaden with cues Wheelchair Training Does the Pt Use a Wheelchair?: Yes Wheelchair (FIM): 3 Wheelchair Distance: 3=150 ft (150,100) Wheelchair Level of Assist: 5 Type of Wheelchair: Manual reminders to lock brakes when still and when getting up down Exercises Supine Ex: Bridging, Ankle pumps, Quad Set, Rolling, Heel Slides, Scooting, Straight leg raise, Hip abd/add Supine Reps: 15 Seated Therapy Exercises: Ankle pumps, Sit to stand, Long arc quads, Hip flexion Seated Reps: 12 Treatments up in recliner after Rx with alarm insitu and call meneses at hand Assessment Current Status: Good Progress motivated to get home with his . responds to encouragement, doesnt like the idea of having to be on O2 at home PT Short Term Goals Short Term Goals Time Frame: Jul 29, 2018 Transfers (B,C,W/C) (FIM): 5 Gait (FIM): 2 Distance (FIM): 1=up to 49 ft Gait Assistive Device: FWW Wheelchair Distance: 30' PT Record Changer Goals Record Changer Goals PT Record Changer Goals Time Frame: Aug 12, 2018 Transfers (B,C,W/C) (FIM): 6 Sit to Lying (QC): 6 Lying-Sitting on Side/Bed(QC): 6 Sit to Stand (QC): 6 Rollin Roll Left to Right (QC): 6 Chair/Vxg-tm-Xzujf Xfer(QC): 6 Car Transfer (QC): 5 Does the Patient Walk: Yes Gait (FIM): 5 (household) Gait distance (FIM): 0=306-43 ft Walk 10 feet (QC): 6 Walk 10ft-Uneven Surface(QC): 6 Walk 50ft with 2 Turns (QC): 6 Walk 150 ft (QC): 88 Gait Level of Assist: 6 Gait Assistive Device: FWW Does the Pt use WC or Scooter?: Yes Wheelchair (FIM): 6 Wheelchair distance (FIM): 3=150 ft Wheel 50 feet with 2 turns (QC: 6 Stairs (FIM): 88 1 Step (curb) (QC): 88 4 Steps (QC): 88 12 Steps (QC): 88 Picking up an Object (QC): 88 PT Plan Treatment/Plan Treatment Plan: Continue Plan of Care Treatment Plan: Bed Mobility, Education, Functional Activity [place], Functional Strength, Group Therapy, Gait, Safety, Therapeutic Exercise, Transfers Treatment Duration: Aug 12, 2018 Frequency: At least 5 of 7 days/Wk (IRF) Estimated Hrs Per Day: 1.5 hours per day Patient and/or Family Agrees t: Yes Safety Risks/Education Patient Education: Gait Training, Transfer Techniques, Correct Positioning, W/ C Management, Disease Process, Safety Issues Teaching Recipient: Patient Teaching Methods: Demonstration, Discussion Response to Teaching: Verbalize Understanding, Return Demonstration, Reinforcement Needed Time/GCodes Time In: 800 Time Out: 900 Total Billed Treatment Time: 60 Total Billed Treatment 1,WC10m,EX20m,GT15m,FA15m G Codes Necessary: TOM Stapleton GEOTHERMAL OPERATIONS ENGINEER Jul 25, 2018 08:55
[2018-07-25] MEDS: PANTOPRAZOLE 2 MG/ML LIQUID 200 ML (PROTONIX) PEG SCH ×3 (09:00)
[2018-07-25] MEDS: ASPIRIN 81 MG CHEW (CHILDREN'S ASA) PO SCH (09:16)
[2018-07-25] MEDS: LACTOBACILLUS ACIDOPHILUS (PROBIOTIC) CAPSULE PO SCH ×2 (09:16→20:44)
[2018-07-25] MEDS: meTOprolol TARTRATE 25 MG (LOPRESSOR) TABLET PO SCH ×2 (09:16→20:44)
[2018-07-25] MEDS: guaiFENesin/DM (ROBITUSSIN DM) 10 ML UDC PO SCH ×3 (09:16→20:45)
[2018-07-25] MEDS: PHENAZOPYRIDINE 100 MG (PYRIDIUM) TABLET PO SCH ×3 (09:16→18:33)
[2018-07-25] MEDS: AMIODARONE 200 MG (CORDARONE) TAB PO SCH ×2 (09:16→20:44)
[2018-07-25] MEDS: DIGOXIN 0.125 MG (LANOXIN) TAB PO SCH (09:16)
[2018-07-25] MEDS: MENTHOL/ZINC OXIDE (CALMOSEPTINE) 113 GM TUBE TOP SCH ×2 (09:17→20:59)
[2018-07-25] MEDS: DOCUSATE SODIUM 10 MG/ML 10 ML UDC (COLACE) PEG SCH ×2 (09:17→18:33)
--- NOTE | 2018-07-25 11:08 | Progress Note-Hospitalist ---
Subjective HPI/CC On Admission Date Seen by Provider: Jul 25, 2018 Time Seen by Provider: 10:00 CC: Severe debility HPI: This is a 78-year-old white male [facility] patient was admitted to inpatient rehabilitation for IV medication and severe debility resolution. He was admitted to [facility] for 11 days requiring PEG tube placement due to silent aspiration and urinary stent placement due to obstructive stone in ureter and maintained on antibiotic regimen with aggressive physical therapy. I reviewed old records and culture results from infectious disease and reviewed current lab results along with vital signs. He is sitting up in chair drowsy but oriented 3 but appears to be severely chronically ill. Her goal is to return to independent ADL function along with completion of IV antibiotics. Subjective/Events-last exam Patient doing well Speech therapy working with him currently Aspiration risk remains Feeding tube functioning properly We'll consult Dr. Suresh Chest x-ray labs reviewed from yesterday Review of Systems Pulmonary: Cough Objective Exam Vital Signs Vital Signs Date Time Temp Pulse Resp B/P (MAP) Pulse Ox O2 Delivery O2 Flow Rate FiO2 07/25/18 08:00 Nasal Cannula 2.00 07/25/18 06:13 92 07/25/18 06:00 90 20 136/82 (100) 07/24/18 17:18 97.6 Capillary Refill : General Appearance: No Apparent Distress, WD/WN, Chronically ill Respiratory: Chest Non Tender, No Accessory Muscle Use, No Respiratory Distress , Crackles, Wheezing Cardiovascular: Regular Rate, Rhythm, No Edema, No Gallop, No JVD, No Murmur, Normal Peripheral Pulses Neurologic/Psychiatric: Alert, Oriented x3, No Motor/Sensory Deficits, Normal Mood/Affect Results/Procedures Lab Patient resulted labs reviewed. Assessment/Plan Assessment and Plan Assess & Plan/Chief Complaint Assessment: MRSA pneumonia Pseudomonas UTI Severe debilitated state CAD previous bypass graft ICD defibrillator in place Presbycusis Sleep apnea Chronic respiratory failure Plan: PEG tube feedings Speech therapy PT/OT Long recovery expected Consult Dr Fonseca is appreciated Consult Dr Suresh Diagnosis/Problems Diagnosis/Problems (1) MRSA pneumonia Status: Acute Qualifiers: Laterality: unspecified laterality Lung location: unspecified part of lung Qualified Codes: J15.212 - Pneumonia due to methicillin resistant Staphylococcus aureus (2) Pseudomonas urinary tract infection Status: Acute (3) Debility Status: Acute (4) Pyelonephritis Status: Acute (5) Renal calculus, left Status: Acute (6) Acute renal insufficiency Status: Resolved Resolution Date/Time: 06/16/18 @ 17:54 (7) Diabetes mellitus, type 2 Status: Chronic Qualifiers: Diabetes mellitus halfway insulin use: with oil heaterman use Diabetes mellitus complication status: with circulatory complication Diabetes mellitus complication detail: with other circulatory complications Qualified Codes: E11.59 - Type 2 diabetes mellitus with other circulatory complications; Z79.4 - FDC (current) use of insulin (8) Congestive heart failure Status: Chronic Qualifiers: Heart failure type: unspecified (9) COPD (chronic obstructive pulmonary disease) Status: Chronic Qualifiers: COPD type: unspecified COPD Qualified Codes: J44.9 - Chronic obstructive pulmonary disease, unspecified (10) Paroxysmal atrial fibrillation Status: Chronic (11) CAD (coronary artery disease) Status: Chronic Qualifiers: Coronary Disease-Associated Artery/Lesion type: [place]ole artery [place] vs. transplanted heart: seminole heart Associated angina: without angina Qualified Codes: I25.10 - Atherosclerotic heart disease of seminole coronary artery without angina pectoris (12) ICD (implantable cardioverter-defibrillator) in place Status: Chronic Clinical Quality Measures DVT/VTE Risk/Contraindication: Risk Factor Score Per Nursin RFS Level Per Nursing on Admit: 4+=Very High BRIGITTE LEMA DO Jul 25, 2018 11:08
--- NOTE | 2018-07-25 13:28 | Physical Therapy Daily Note ---
PT Daily Note-Current Subjective Agrees to walking, c/o fatigue , Pain Numeric Pain Scale: 0-No Pain Transfers Therapy Code Descriptions/Definitions Functional [place] Measure: 0=Not Assessed/NA 4=Minimal Assistance 1=Total Assistance 5=Supervision or Setup 2=Maximal Assistance 6=Modified [place] 3=Moderate Assistance 7=Complete [place] Therapy Quality Codes: 6 Independent with activity with or without an assistive device 5 Patient requires set up or clean up by helper. Patient completes activity by themselves 4 Supervision or touching assist (CGA). [place] provide cues , steadying assist 3 The helper provides less than half the effort to complete the activity 2 The helper provides more than half the effort to complete the activity 1 Dependent. The helper does all the effort to complete an activity 7 Patient refused to complete or attempt activity 9 The patient did not perform the activity before the current illness or injury 88 Not attempted due to Medical conditions or safety concerns sit to stand x 5 SBA, SPTs w/c to chair, SBA Gait Training Gait Assistive Device: FWW 55ftx2, 65ftx2 FWW CGA w/c to follow, O2 2L, mask insitu Exercises Seated Therapy Exercises: Ankle pumps, Sit to stand, Long arc quads, Hip flexion Seated Reps: 12 Assessment Current Status: Good Progress PT Short Term Goals Short Term Goals Time Frame: Jul 29, 2018 Transfers (B,C,W/C) (FIM): 5 Gait (FIM): 2 Distance (FIM): 1=up to 49 ft Gait Assistive Device: FWW Wheelchair Distance: 30' PT Lock Plater Goals Assisted Goals PT Lock Plater Goals Time Frame: Aug 12, 2018 Transfers (B,C,W/C) (FIM): 6 Sit to Lying (QC): 6 Lying-Sitting on Side/Bed(QC): 6 Sit to Stand (QC): 6 Rollin Roll Left to Right (QC): 6 Chair/Rkd-fw-[place] Xfer(QC): 6 Car Transfer (QC): 5 Does the Patient Walk: Yes Gait (FIM): 5 (household) Gait distance (FIM): 1=010-68 ft Walk 10 feet (QC): 6 Walk 10ft-Uneven Surface(QC): 6 Walk 50ft with 2 Turns (QC): 6 Walk 150 ft (QC): 88 Gait Level of Assist: 6 Gait Assistive Device: FWW Does the Pt use WC or Scooter?: Yes Wheelchair (FIM): 6 Wheelchair distance (FIM): 3=150 ft Wheel 50 feet with 2 turns (QC: 6 Stairs (FIM): 88 1 Step (curb) (QC): 88 4 Steps (QC): 88 12 Steps (QC): 88 Picking up an Object (QC): 88 PT Plan Treatment/Plan Treatment Plan: Continue Plan of Care Treatment Plan: Bed Mobility, Education, Functional Activity [place], Functional Strength, Group Therapy, Gait, Safety, Therapeutic Exercise, Transfers Treatment Duration: Aug 12, 2018 Frequency: At least 5 of 7 days/Wk (IRF) Estimated Hrs Per Day: 1.5 hours per day Patient and/or Family Agrees t: Yes Safety Risks/Education Patient Education: Gait Training, Transfer Techniques, Correct Positioning, Safety Issues Response to Teaching: Reinforcement Needed Time/GCodes Time In: 1300 Time Out: 1330 Total Billed Treatment Time: 30 Total Billed Treatment 1,EX8m,GT12m G Codes Necessary: TOM Stapleton PRODUCTION OPERATIONS INSPECTOR Jul 25, 2018 13:28
--- NOTE | 2018-07-25 15:23 | ST Dysphagia Evaluation ---
Speech Evaluation-General Medical Diagnosis disuse myopathy Onset Date: Jul 21, 2018 Therapy Diagnosis Therapy Diagnosis: Oropharyngeal dysphagia Precautions Precautions: Fall Precautions/Isolations: Droplet Isolation, Fall Prevention Medical History Pertinent Medical History: Atrial Fib, Arthritis, CABG, CAD, COPD, Dementia, GERD, [place], Neuropathy Reviewed History: Yes Social History Current Living Status: Spouse Speech PLF/Current-Dysphagia Prior Level of Function Patient states he was eating a soft diet prior to his hospitalization for pneumonia. While hospitalized at [facility] he was rendered unsafe for oral intake and had a PEG tube placement. Subjective Patient was pleasant and cooperative with evaluation. Oral Motor Skills Dentition: Edentalous Denture Type: Full- Upper & Lower Ability to Follow Directions: Good Oral Expression Ability: Mild Impairment Voice Voice Phonatory-Based Quality: Hoarse Voice Pitch: Mildly Low Voice Loudness: Limited Variation Face Facial Symmetry: Symmetrical Oral-Facial Assessment Oral-Facial Dentition: Normal Labial Seal Description: Reduced ROM Smile: Reduced ROM Puff Cheeks: Reduced Strength Lingual Protrusion: Abnormal Lingual ROM: Abnormal Lingual Strength: Abnormal Pharynx Velopharyngeal Move.: Normal Volitional Dry Swallow: Yes Voluntary Cough: Yes Productive Cough: Yes Patient is noted to cough frequently with reported coarse lung sounds. Productive Throat Clear: Yes Dysphagia Evaluation Pharyngeal Phase: Reduced Laryngeal Elevation Funct. Velo/Pharyngeal Symptom: Cough After Swallow, Wet Voice Dietary Recommendations: NPO Liquid Recommendations: NPO Dysphagia Evaluation Summary Patient is a 78 year old male who was recently hospitalized for pneumonia which resulted in a PEG tube placement. Trials of honey consistency liquid (1/2 tsp) and puree (1/2) were swallowed within normal limits. Patient coughs continuously and is still not a safe oral feeder. Patient's swallow trials will be repeated in a few sessions. Strengthening exercises will be completed in the mean time with his NPO status to continue. Barriers to Learning Patient has decreased cognition. Speech Short Term Goals Short Term Goals Short Term Goals 1) Patient will be able to recall new information with 80% or greater given minimal cues. 2) Patient will be able to name items/pictures presented with 80% or greater given minimal cues. 3) Patient will utilize compensatory strategies for safety within his room with 80% or greater given minimal cues. 4) Patient will complete pharyngeal exercises 5x/week in order to return to PO status. 5) Patient will tolerate trials of least restrictive diet level without s/s of aspiration. Speech [place] Supervisor Goals Mcfp Goals 1) Patient will improve memory, problem solving and auditory processing in order to return safely home. 2) Patient will demonstrate a safe swallow function for oral intake for maintaining nutrition/hydration. Speech-Plan Patient/Family Goals Patient/Family Goals: Patient plans to return home with his post rehab. Currently patient has caregivers in the home for himself and his . Treatment Plan Speech Therapy Treatment Plan: Continue Plan of Care Patient continues to be NPO Treatment Duration: Jul 26, 2018 Frequency: 5 times per week Estimated Hrs Per Day: .5 hour per day Rehab Potential: Guarded Barriers to Learning: Patient has decreased cognition. Pt/Family Agrees to Plan: Yes Safety Risks/Education Teaching Recipient: Patient Teaching Methods: Discussion Response to Teaching: Verbalize Understanding Education Topics Provided: Safety of oral intake and the reasons for his PEG tube placement. Time Speech Therapy Time In: 10:00 Speech Therapy Time Out: 10:30 Total Billed Time: 30 Billed Treatment Time [address] Jul 25, 2018 15:23
--- NOTE | 2018-07-25 15:56 | Occupational Ther Daily Note ---
OT Current Status-Daily Note Subjective Pt. does not report pain. Appearance Pt. adamant that he does not want to shower. Pt. encouraged. Does report he will take a spongebath. Mental Status/Objective Patient Orientation: Unable to Assess Therapy Code Descriptions/Definitions Functional [place] Measure: 0=Not Assessed/NA 4=Minimal Assistance 1=Total Assistance 5=Supervision or Setup 2=Maximal Assistance 6=Modified [place] 3=Moderate Assistance 7=Complete [place] ADL-Treatment Therapy Code Descriptions/Definitions Functional [place] Measure: 0=Not Assessed/NA 4=Minimal Assistance 1=Total Assistance 5=Supervision or Setup 2=Maximal Assistance 6=Modified [place] 3=Moderate Assistance 7=Complete [place] Therapy Quality Codes: 6 Independent with activity with or without an assistive device 5 Patient requires set up or clean up by helper. Patient completes activity by themselves 4 Supervision or touching assist (CGA). [place] provide cues , steadying assist 3 The helper provides less than half the effort to complete the activity 2 The helper provides more than half the effort to complete the activity 1 Dependent. The helper does all the effort to complete an activity 7 Patient refused to complete or attempt activity 9 The patient did not perform the activity before the current illness or injury 88 Not attempted due to Medical conditions or safety concerns Bathing (FIM): 3 (Pt. washes chest and under arms. OT washes rear pieter area and legs. Pt. washes front pieter area. Declines doffing shoes and socks stating , "my feet are clean.") Shower/Bathe Self (QC): 3 Upper Body (FIM): 4 (Pt. requires assistance orienting shirt, and turning it right side out. Pt. able to don after this is done for him.) Upper Body Dressing (QC): 4 Lower Body Dressing (FIM): 2 (Pt. refuses to doff/don socks to wash feet. States that his does this for him. OT offers to assist him with this but pt. states, "no." Pt. requires assistance to don pants and lug breaker and wire puller hips. OT is informed from nursing that spouse does not want pt. to have depends on, as he is allergic.) Lower Body Dressing (QC): 2 Toileting (FIM): 1 (Noted when pt. stood that he was incontinent of bowel. OT cleanses him from this. Pt. also requests to have urinal several times, but can 't place the urinal himself without spilling everywhere.) Toileting Hygiene (QC): 1 Transfers (B, C, W/C) (FIM): 4 Education OT Patient Education: Modified ADL techniques, Progress toward Goal/Update tx plan, Purpose of tx/functional activities, Reviewed precautions, Rehab process, Transfer techniques Teaching Recipient: Patient Teaching Methods: Demonstration Response to Teaching: Return Demonstration OT Short Term Goals Short Term Goals Time Frame: Jul 29, 2018 Eating(FIM): 4 Grooming(FIM): 3 Upper Body Dressing(FIM): 3 Lower Body Dressing(FIM): 3 Toileting(FIM): 4 Transfers (B,C,W/C) (FIM): 5 Toilet/Commode Transfer(FIM): 4 Additional Short Term Goals: 1-Demonstrate ADL Tasks, 2-Verbalize Understanding , 3-ImproveStrength/[place] 1=Demonstrate adherence to instructed precautions during ADL tasks. 2=Patient will verbalize/demonstrate understanding of assistive devices/ modifications for ADL. 3=Patient will improve strength/tolerance for activity to enable patient to perform ADL's. OT Longterm Goals Longterm Goals Time Frame: Aug 19, 2018 Eating (FIM): 5 Eating (QC): 5 Groomin Oral Hygiene (QC): 4 Bathing(FIM): 3 Shower/Bathe Self (QC): 3 Upper Body Dressing(FIM): 5 Upper Body Dressing (QC): 4 Lower Body Dressing(FIM): 4 Lower Body Dressing (QC): 4 On/Off Footwear (QC): 4 Toileting(FIM): 5 Toileting Hygiene (QC): 5 Transfers (B,C,W/C) (FIM): 5 Toilet/Commode Transfer(FIM): 5 Toilet/Commode Transfer (QC): 4 Additional Goals: 1-Demonstrate ADL Tasks, 2-Verbalize Understanding, 3- ImproveStrength/[place] 1=Demonstrate adherence to instructed precautions during ADL tasks. 2=Patient will verbalize/demonstrate understanding of assistive devices/ modifications for ADL. 3=Patient will improve strength/tolerance for activity to enable patient to perform ADL's. OT Education/Plan Problem List/Assessment Assessment: Decreased Activ Tolerance, Decreased Safety Aware, Decreased UE Strength, Dependent Transfers, Impaired Cognition, Impaired Coordination, Impaired Funct Balance, Impaired I ADL's, Impaired Self-Care Skills Discharge Recommendations Plan/Recommendations: Continue POC Therapy D/C Recommendations: 24 hr Supervision, Home w/ Family Support, Scheduled Assistance Treatment Plan/Plan of Care Treatment,Training & Education: Yes Patient would benefit from OT for education, treatment and training to promote independence in ADL's, mobility, safety and/or upper extremity function for ADL' s. Plan of Care: ADL Retraining, Functional Mobility, Group Exercise/Act as Ind, UE Funct Exercise/Act Treatment Duration: Aug 19, 2018 Frequency: At least 5 of 7 days/Wk (IRF) Estimated Hrs Per Day: 1.5 hours per day Agreement: Yes Rehab Potential: Guarded Time/GCodes Start Time: 09:30 Stop Time: 10:00 Total Time Billed (hr/min): 30 Billed Treatment Time 1, ADL x 2 ALFREDO STOVALL OT Jul 25, 2018 15:56
--- NOTE | 2018-07-25 16:01 | Occupational Ther Daily Note ---
OT Current Status-Daily Note Subjective Pt. up in chair. Declines coming out of his room. Appearance Pt. is encouraged to walk, go to gym. Pt. refuses. Does agree to do therapy in his room. Mental Status/Objective Patient Orientation: Unable to Assess Therapy Code Descriptions/Definitions Functional [place] Measure: 0=Not Assessed/NA 4=Minimal Assistance 1=Total Assistance 5=Supervision or Setup 2=Maximal Assistance 6=Modified [place] 3=Moderate Assistance 7=Complete [place] ADL-Treatment Therapy Code Descriptions/Definitions Functional [place] Measure: 0=Not Assessed/NA 4=Minimal Assistance 1=Total Assistance 5=Supervision or Setup 2=Maximal Assistance 6=Modified [place] 3=Moderate Assistance 7=Complete [place] Therapy Quality Codes: 6 Independent with activity with or without an assistive device 5 Patient requires set up or clean up by helper. Patient completes activity by themselves 4 Supervision or touching assist (CGA). [place] provide cues , steadying assist 3 The helper provides less than half the effort to complete the activity 2 The helper provides more than half the effort to complete the activity 1 Dependent. The helper does all the effort to complete an activity 7 Patient refused to complete or attempt activity 9 The patient did not perform the activity before the current illness or injury 88 Not attempted due to Medical conditions or safety concerns Pt. participates in multiple UE/LE exercises while seated in chair. Completes shoulder flexion, elbow flexion, finger flexion, supination exercises, as well as multiple ankle pumps, leg lifts, and quad sets. Pt. is encouraged to do10- 15 of each exercise, but will do several less and then say, "okay." OT also brings in therapy hand sponge and pt. does squeeze this 20 times for increased hand strength. Pt. also completes 3 bilateral UE exercises with red theraband x 10 reps in all planes. Pt. will answer most questions with one word answers. Whenever pt. is asked how he does something particular, such as putting on shoes or shaving face, pt. states, "my ." All needs are met with chair alarm on after session. Education OT Patient Education: Correct positioning, Exercise program, Home exercise program, Progress toward Goal/Update tx plan, Purpose of tx/functional activities, Reviewed precautions, Rehab process, Transfer techniques Teaching Recipient: Patient Teaching Methods: Demonstration, Discussion Response to Teaching: Verbalize Understanding, Return Demonstration OT Short Term Goals Short Term Goals Time Frame: Jul 29, 2018 Eating(FIM): 4 Grooming(FIM): 3 Upper Body Dressing(FIM): 3 Lower Body Dressing(FIM): 3 Toileting(FIM): 4 Transfers (B,C,W/C) (FIM): 5 Toilet/Commode Transfer(FIM): 4 Additional Short Term Goals: 1-Demonstrate ADL Tasks, 2-Verbalize Understanding , 3-ImproveStrength/[place] 1=Demonstrate adherence to instructed precautions during ADL tasks. 2=Patient will verbalize/demonstrate understanding of assistive devices/ modifications for ADL. 3=Patient will improve strength/tolerance for activity to enable patient to perform ADL's. OT Custodial Goals [employer] Director Goals Time Frame: Aug 19, 2018 Eating (FIM): 5 Eating (QC): 5 Groomin Oral Hygiene (QC): 4 Bathing(FIM): 3 Shower/Bathe Self (QC): 3 Upper Body Dressing(FIM): 5 Upper Body Dressing (QC): 4 Lower Body Dressing(FIM): 4 Lower Body Dressing (QC): 4 On/Off Footwear (QC): 4 Toileting(FIM): 5 Toileting Hygiene (QC): 5 Transfers (B,C,W/C) (FIM): 5 Toilet/Commode Transfer(FIM): 5 Toilet/Commode Transfer (QC): 4 Additional Goals: 1-Demonstrate ADL Tasks, 2-Verbalize Understanding, 3- ImproveStrength/[place] 1=Demonstrate adherence to instructed precautions during ADL tasks. 2=Patient will verbalize/demonstrate understanding of assistive devices/ modifications for ADL. 3=Patient will improve strength/tolerance for activity to enable patient to perform ADL's. OT Education/Plan Problem List/Assessment Assessment: Decreased Activ Tolerance, Decreased Safety Aware, Decreased UE Strength, Dependent Transfers, Impaired Cognition, Impaired Funct Balance, Impaired I ADL's, Impaired Self-Care Skills Discharge Recommendations Plan/Recommendations: Continue POC Therapy D/C Recommendations: 24 hr Supervision, Home w/ Family Support, Scheduled Assistance Treatment Plan/Plan of Care Treatment,Training & Education: Yes Patient would benefit from OT for education, treatment and training to promote independence in ADL's, mobility, safety and/or upper extremity function for ADL' s. Plan of Care: ADL Retraining, Functional Mobility, Group Exercise/Act as Ind, UE Funct Exercise/Act Treatment Duration: Aug 19, 2018 Frequency: At least 5 of 7 days/Wk (IRF) Estimated Hrs Per Day: 1.5 hours per day Agreement: Yes Rehab Potential: Guarded Time/GCodes Start Time: 14:00 Stop Time: 14:45 Total Time Billed (hr/min): 45 Billed Treatment Time 1, Ex x 3 ALFREDO STOVALL OT Jul 25, 2018 16:01
--- NOTE | 2018-07-25 17:33 | NUR ---
Dr Suresh notified of consult. Will see pt tomorrow.
[2018-07-25 18:00] VITALS: BP 113/68
[2018-07-25] MEDS: VANCOMYCIN INJECTION 1,500 MG in NS IV 500 ML 500 ML IV SCH (18:33)
--- NOTE | 2018-07-25 19:13 | NUR ---
report receiced from JONATHAN ROSS, assume care of pt
--- NOTE | 2018-07-25 20:00 | NUR ---
assessments & interventions completed, see assessments & interventions, back to bed from chair with 1 person assist & walker, had soft moderate brown stool, cleaned & [place] to bottom
[2018-07-25 20:35] VITALS: BP 113/64
[2018-07-25] MEDS: ATORVASTATIN 40 MG (LIPITOR) TABLET PO SCH (20:44)
--- NOTE | 2018-07-25 20:50 | NUR ---
fsbs 98 no ss insulin req, colace held due to loose stools, meds crushed & given per g-tube, bed alarm on as not staying tonight
[2018-07-25 22:00] VITALS: BP 112/55
--- NOTE | 2018-07-25 22:00 | NUR ---
gastric residual 5ml, jevity 1.5 1 can given per g-tube & water flush 50ml before & after tube feeding, pt changed again & repositioned
[2018-07-26] MEDS: MEXILETINE 150 MG (MEXITIL) CAPSULE PO SCH ×3 (00:10→16:59)
--- NOTE | 2018-07-26 02:00 | NUR ---
gastric residual 5ml jevity 1.5 1 can given per g-tube
[2018-07-26] MEDS: RT-ALBUTEROL/IPRATROPIUM 3 ML (DUONEB) VIAL INH SCH ×6 (03:26→22:19)
[2018-07-26 05:30] VITALS: BP 112/76
[2018-07-26] MEDS: inSUlin ASPART (NovoLOG) 1 UNIT/0.01 ML (CHARGE PER UNIT) SC SCH ×4 (06:00→21:21)
--- NOTE | 2018-07-26 06:00 | NUR ---
gastric residual 10ml, jevity 1.5 1 can given per g-tube
[2018-07-26] MEDS: CEFEPIME INJECTION 2,000 MG in NS (IVPB) 50 ML IV SCH ×3 (06:07→21:52)
[2018-07-26] MEDS: DILTIAZEM 60 MG (CARDIZEM) TAB PO SCH ×3 (06:50→21:53)
[2018-07-26] MEDS: KCL 20 MEQ POWDER FOR ORAL SOLUTION PEG SCH (06:50)
[2018-07-26] MEDS: FUROSEMIDE 20 MG (LASIX) TAB PO SCH ×2 (06:50→16:59)
--- NOTE | 2018-07-26 07:11 | NUR ---
report given to SHERRY ROSS
[2018-07-26] MEDS: ASPIRIN 81 MG CHEW (CHILDREN'S ASA) PO SCH (08:20)
[2018-07-26] MEDS: LACTOBACILLUS ACIDOPHILUS (PROBIOTIC) CAPSULE PO SCH ×2 (08:20→21:49)
[2018-07-26] MEDS: guaiFENesin/DM (ROBITUSSIN DM) 10 ML UDC PO SCH ×3 (08:20→21:49)
[2018-07-26] MEDS: DIGOXIN 0.125 MG (LANOXIN) TAB PO SCH (08:20)
[2018-07-26] MEDS: AMIODARONE 200 MG (CORDARONE) TAB PO SCH (08:20)
[2018-07-26] MEDS: meTOprolol TARTRATE 25 MG (LOPRESSOR) TABLET PO SCH ×2 (08:26→21:52)
--- NOTE | 2018-07-26 08:30 | NUR ---
PRIOR TO B/P MEDICATIONS PULSE WAS 91 AND B/P WAS 118/72. PATIENT ALSO REPOSITIONED AND CHANGED PER THIS RN AT THIS TIME.
[2018-07-26] MEDS: DOCUSATE SODIUM 10 MG/ML 10 ML UDC (COLACE) PEG SCH ×2 (09:00→21:49)
[2018-07-26] MEDS ORDERED: AMIODARONE 200 MG (CORDARONE) TAB PO SCH (09:00)
[2018-07-26] MEDS: PANTOPRAZOLE 2 MG/ML LIQUID 200 ML (PROTONIX) PEG SCH ×3 (09:00)
[2018-07-26] MEDS: MENTHOL/ZINC OXIDE (CALMOSEPTINE) 113 GM TUBE TOP SCH ×2 (09:00→21:52)
--- NOTE | 2018-07-26 09:51 | Physical Therapy Daily Note ---
PT Daily Note-Current Subjective Pt. i bed upon arrival. Shakes his head "no" when he sees this COLLEGE INTERN but is cooperative with encouragement. This COLLEGE INTERN reminding pt. that working and getting stronger gets him closer to home. enters during Rx with apparent home caregiver. Pt.s states this caregiver is with them 6 hrs per day. When pt. is asked if he uses O2 at home her remarks "No" but interjects that he does in fact have O2 at home. Pain Location: No Pain Reported Mental Status Patient Orientation: Person, Place Attachments: Oxygen (2L) Transfers Therapy Code Descriptions/Definitions Functional [place] Measure: 0=Not Assessed/NA 4=Minimal Assistance 1=Total Assistance 5=Supervision or Setup 2=Maximal Assistance 6=Modified [place] 3=Moderate Assistance 7=Complete [place] Therapy Quality Codes: 6 Independent with activity with or without an assistive device 5 Patient requires set up or clean up by helper. Patient completes activity by themselves 4 Supervision or touching assist (CGA). [place] provide cues , steadying assist 3 The helper provides less than half the effort to complete the activity 2 The helper provides more than half the effort to complete the activity 1 Dependent. The helper does all the effort to complete an activity 7 Patient refused to complete or attempt activity 9 The patient did not perform the activity before the current illness or injury 88 Not attempted due to Medical conditions or safety concerns Transfers (B, C, W/C) (FIM): 4 Scootin Rollin Supine to/from Sit: 5 Sit to/from Stand: 4 Bed to/from Chair: 4 pt. comes from supine to sit SBA and SPTs bed to w/c and w/c to chair with FWW CGA and some instruction to safeguard O2 as pt. moves as if he is not attached to it. Needs safety cues for all mobility Gait Training Does the Patient Walk?: Yes Gait (FIM): 2 Distance (FIM): 4=141-84 ft (60ftx3) Gait Level of Assist: 4 Gait Persons Needed: 1 Gait Assistive Device: FWW pt. needs CGA and instruction for turns and safety and broader ANTONI. Pt. again needs assist for w/c and O2 and doesnt give notice, just sitting when he is ready. NEEDS CGA TO MIN ASSIST FOR ALL MOBILITY. Wheelchair Training Does the Pt Use a Wheelchair?: Yes Wheelchair (FIM): 5 Wheelchair Distance: 3=150 ft (150,100) Wheelchair Level of Assist: 5 (NEEDS REMINDED OFTEN TO LOCK BRAKES BEFORE ENTERING OR EXITING W/C) Type of Wheelchair: Manual Exercises Supine Ex: Bridging, Ankle pumps, Rolling, Heel Slides, Short Arc Quads, Scooting, Straight leg raise, Hip abd/add Supine Reps: 10 (x2) Seated Therapy Exercises: Ankle pumps, Sit to stand, Long arc quads Seated Reps: 8 Treatments needed cleaned of BM and urine, pts refuses briefs stating she feels he is allergic. Pt is incont of BM and urine. Assessment Current Status: Good Progress pt. giving good effort in hopes he can return home soon, this appears possible if caregiver plays very active role PT Short Term Goals Short Term Goals Time Frame: Jul 29, 2018 Transfers (B,C,W/C) (FIM): 5 Gait (FIM): 2 Distance (FIM): 1=up to 49 ft Gait Assistive Device: FWW Wheelchair Distance: 30' PT Mash Filter Operator Goals Detention Goals PT Mash Filter Operator Goals Time Frame: Aug 12, 2018 Transfers (B,C,W/C) (FIM): 6 Sit to Lying (QC): 6 Lying-Sitting on Side/Bed(QC): 6 Sit to Stand (QC): 6 Rollin Roll Left to Right (QC): 6 Chair/Zdl-jx-Pyxmg Xfer(QC): 6 Car Transfer (QC): 5 Does the Patient Walk: Yes Gait (FIM): 5 (household) Gait distance (FIM): 6=716-44 ft Walk 10 feet (QC): 6 Walk 10ft-Uneven Surface(QC): 6 Walk 50ft with 2 Turns (QC): 6 Walk 150 ft (QC): 88 Gait Level of Assist: 6 Gait Assistive Device: FWW Does the Pt use WC or Scooter?: Yes Wheelchair (FIM): 6 Wheelchair distance (FIM): 3=150 ft Wheel 50 feet with 2 turns (QC: 6 Stairs (FIM): 88 1 Step (curb) (QC): 88 4 Steps (QC): 88 12 Steps (QC): 88 Picking up an Object (QC): 88 PT Plan Treatment/Plan Treatment Plan: Continue Plan of Care Treatment Plan: Bed Mobility, Education, Functional Activity [place], Functional Strength, Group Therapy, Gait, Safety, Therapeutic Exercise, Transfers Treatment Duration: Aug 12, 2018 Frequency: At least 5 of 7 days/Wk (IRF) Estimated Hrs Per Day: 1.5 hours per day Patient and/or Family Agrees t: Yes Safety Risks/Education Patient Education: Gait Training, Transfer Techniques, Correct Positioning, W/ C Management, Disease Process, Safety Issues Teaching Recipient: Patient, Significant Other Teaching Methods: Demonstration, Discussion Response to Teaching: Verbalize Understanding, Return Demonstration, Reinforcement Needed Time/GCodes Time In: 900 Time Out: 1000 Total Billed Treatment Time: 60 Total Billed Treatment 1,EX15m,FA25m,GT20m G Codes Necessary: TOM Stapleton COLLEGE INTERN Jul 26, 2018 09:50
[2018-07-26] MEDS: PHENAZOPYRIDINE 100 MG (PYRIDIUM) TABLET PO SCH ×3 (10:01→18:08)
--- NOTE | 2018-07-26 11:17 | Pulmonary Consultation ---
History of Present Illness History of Present Illness Date of Consultation 07/26/18 11:12 Time Seen by Provider: 11:13 Date of Admission History of Present Illness 78yo with hx of COPD and debility he currently undergoing inpatient rehab secondary to severe debility. He was admitted to [facility] in [place] for 11 days and required PEG tube placement secondary to silent aspiration. He also has a urinary stent placed secondary to obstructive nephrolithiasis. Pt is requiring 2 liters of oxygen. I am consulted for pulmonary management. Allergies and Home Medications Allergies Coded Allergies: Penicillins (Verified Allergy, Severe, HIVES, SOB (Pt has received Cefepime & Ceftriaxone), 07/03/18) codeine (Verified Allergy, Severe, SOB, HIVES, 01/04/18) Home Medications Albuterol Sulfate 18 Gm Hfa.aer.ad, 2 PUFF IH Q6H PRN for SHORTNESS OF BREATH, ( Reported) Amiodarone HCl 200 Mg Tablet, PO UD, (Reported) Aspirin 81 Mg Tab.chew, 81 MG PO DAILY Prescribed by: BRIGITTE LEMA on 08/05/18811 Atorvastatin Calcium 40 Mg Tablet, 40 MG PO HS Prescribed by: BRIGITTE LEMA on 08/05/18811 Cholestyramine/Aspartame 4 Gm Powd.pack, 4 GM PO 1000,2300 Prescribed by: BRIGITTE LEMA on 08/05/18811 Digoxin 125 Mcg Tablet, 125 MCG PO DAILY, (Reported) Diltiazem HCl 60 Mg Tablet, 60 MG PO Q8HR Prescribed by: BRIGITTE LEMA on 08/05/18811 Furosemide 40 Mg Tablet, 20 MG PO BID, (Reported) Insulin Aspart 100 Unit/1 Ml Susp, SQ UD, (Reported) Magnesium Hydroxide 400 Mg/5 Ml Oral.susp, 30 ML PO DAILY PRN for CONSTIPATION- 7TH LINE Prescribed by: BRIGITTE LEMA on 08/05/18811 Menthol/Lanolin/Calamine/Znox 71 Gm Oint, 0 GM TOP BID Prescribed by: BRIGITTE LEMA on 08/05/18811 Metoprolol Tartrate 25 Mg Tablet, 12.5 MG PO BID Prescribed by: BRIGITTE LEMA on 08/05/18 09 Mexiletine HCl 150 Mg Cap, 150 MG PO TID, (Reported) Phenazopyridine HCl 200 Mg Tablet, 200 MG PO TID, (Reported) Potassium Chloride 20 Meq Packet, 15 MEQ PEG DAILY@0700 Prescribed by: BRIGITTE LEMA on 08/05/18 0812 Past Chfyskq-Eatsky-Erityw Hx Past Med/Social Hx: Reviewed Nursing Past Med/Soc Hx, Reviewed and Corrections made Patient Social History Alcohol Use: Denies Use Recreational Drug Use: No Smoking Status: Former Smoker Type Used: Cigarettes Former Smoker, Quit: Jul 22, 1988 2nd Hand Smoke Exposure: No Recent Foreign Travel: No Contact w/Someone Who Travel: No Recent Infectious Disease Expo: No Recent Hopitalizations: Yes Immunizations Up To Date Tetanus Booster (TDap): More than 5yrs Date of Pneumonia Vaccine: May 12, 2018 Date of Influenza Vaccine: May 08, 2018 Seasonal Allergies Seasonal Allergies: No Past Medical History Surgeries: Yes (skin cancer removal, cataract surgery, cardiac stents ) Cardiac, CABG, Coronary Stent, Defibrillator, Eye Surgery, Orthopedic, Renal Respiratory: Yes (O2 3L/NC AT HS-now off all oxygen 06/2018; CHRONIC RESPIRATORY FAILURE) Asthma, Pneumonia, Chronic Bronchitis, Sleep Apnea, COPD Currently Using CPAP: No Currently Using BIPAP: No Cardiac: Yes (CABG) Cardiomyopathy, Chronic Edema/Swelling, Coronary Artery Disease, Heart Attack, High Cholesterol, Hypertension, Irregular Heartbeat Neurological: Yes Dementia, Neuropathy Reproductive Disorders: Yes (unable to have children- mumps as a child) Sexually Transmitted Disease: No HIV/AIDS: No Genitourinary: Yes (renal insufficiency-renal stent placement) Kidney Infection, Bladder Infection, Kidney Stones Gastrointestinal: Yes (peg tube mcshiliop-HJK-bigizo aspiration) Gastroesophageal Reflux, Ulcer Musculoskeletal: Yes (POOR MOBILITY; LEFT HIP FRACTURE) Arthritis, Chronic Back Pain, Fractures Endocrine: Yes Diabetes, Insulin dep HEENT: Yes Cataract, Glaucoma Loss of Vision: Bilateral Hearing Impairment: Hard of Hearing Cancer: Yes Skin Did You Recieve Any Treatments: Yes What Type of Treatment Did You: Surgical Intervention Psychosocial: Yes (combative at times) Anxiety, Depression Integumentary: Yes (shingles , SKIN CANCER; LEG CELLULITIS/ STASIS DERMATITIS) Blood Disorders: No Adverse Reaction/Blood Tranf: No Family Medical History Cardiovascular disease 19 MOTHER G8 BROTHER G8 SISTER Cervical cancer 19 MOTHER Heart Disease Review of Systems Time Seen by Provider: 08:54 Sepsis Event Evaluation Height, Weight, BMI Height: 5'5.00" Weight: 178lbs. 14.4oz. 81.211345nv; 27.8 BMI Method:Stated Exam Exam Vital Signs Date Time Temp Pulse Resp B/P (MAP) Pulse Ox O2 Delivery O2 Flow Rate FiO2 07/26/18 10:43 96 Nasal Cannula 2.00 07/26/18 05:30 97.4 90 20 112/76 (88) 95 Nasal Cannula 2.00 07/25/18 22:31 90 Nasal Cannula 2.00 07/25/18 22:00 90 20 112/55 (74) 94 Nasal Cannula 2.00 07/25/18 20:35 91 18 113/64 (80) 96 Nasal Cannula 2.00 07/25/18 20:00 Nasal Cannula 2.00 07/25/18 18:00 97.6 90 20 113/68 (83) 98 Nasal Cannula 2.00 07/25/18 13:59 95 Nasal Cannula 2.00 I & O 07/26/18 07:00 Intake Total 3430 ml Output Total 1100 ml Balance 2330 ml Height & Weight Height: 5'5.00" Weight: 178lbs. 14.4oz. 81.774953fv; 27.8 BMI Method:Stated General Appearance: No Apparent Distress, WD/WN, Chronically ill HEENT: TMs Normal, Pharynx Normal Neck: Normal Inspection, Supple Respiratory: Chest Non Tender, No Accessory Muscle Use, No Respiratory Distress , Crackles, Wheezing Cardiovascular: Regular Rate, Rhythm, No Edema, No Gallop, No JVD, No Murmur, Normal Peripheral Pulses Extremity: Normal Capillary Refill, Normal Inspection Neurologic/Psychiatric: Alert, Oriented x3, No Motor/Sensory Deficits, Normal Mood/Affect Skin: Normal Color, Warm/Dry Lymphatic: No Adenopathy Assessment/Plan Assessment/Plan MRSA pneumonia with bacteremia -Vancomycin -Labs and CXR reviewed. Pseudomonas UTI -Cefepime Debility CHF COPD with hypoxia -SVNs -Monitor VICENTE LUCIANO DO Jul 26, 2018 11:17
--- NOTE | 2018-07-26 11:31 | Progress Note-Hospitalist ---
Subjective HPI/CC On Admission Date Seen by Provider: Jul 26, 2018 Time Seen by Provider: 11:00 CC: Severe debility HPI: This is a 78-year-old white male [facility] patient was admitted to inpatient rehabilitation for IV medication and severe debility resolution. He was admitted to [facility] for 11 days requiring PEG tube placement due to silent aspiration and urinary stent placement due to obstructive stone in ureter and maintained on antibiotic regimen with aggressive physical therapy. I reviewed old records and culture results from infectious disease and reviewed current lab results along with vital signs. He is sitting up in chair drowsy but oriented 3 but appears to be severely chronically ill. Her goal is to return to independent ADL function along with completion of IV antibiotics. Subjective/Events-last exam Patient doing well thinks everything is going better Still nothing by mouth PEG tube functioning properly Bowels are moving Review of Systems General: Fatigue Pulmonary: Cough Objective Exam Vital Signs Vital Signs Date Time Temp Pulse Resp B/P (MAP) Pulse Ox O2 Delivery O2 Flow Rate FiO2 07/26/18 10:43 96 Nasal Cannula 2.00 07/26/18 05:30 97.4 90 20 112/76 (88) Capillary Refill : General Appearance: No Apparent Distress, WD/WN, Chronically ill Respiratory: Chest Non Tender, Normal Breath Sounds, No Accessory Muscle Use, No Respiratory Distress, Crackles, Decreased Breath Sounds Cardiovascular: Regular Rate, Rhythm, No Edema, No Gallop, No JVD, No Murmur, Normal Peripheral Pulses Neurologic/Psychiatric: Alert, Oriented x3, No Motor/Sensory Deficits, Normal Mood/Affect Results/Procedures Lab Patient resulted labs reviewed. Assessment/Plan Assessment and Plan Assess & Plan/Chief Complaint Assessment: MRSA pneumonia Pseudomonas UTI Severe debilitated state CAD previous bypass graft ICD defibrillator in place Presbycusis Sleep apnea Chronic respiratory failure Plan: PEG tube feedings Speech therapy PT/OT Long recovery expected Consult Dr Fonseca is appreciated Consult Dr Suresh Diagnosis/Problems Diagnosis/Problems (1) MRSA pneumonia Status: Acute Qualifiers: Laterality: unspecified laterality Lung location: unspecified part of lung Qualified Codes: J15.212 - Pneumonia due to methicillin resistant Staphylococcus aureus (2) Pseudomonas urinary tract infection Status: Acute (3) Debility Status: Acute (4) Pyelonephritis Status: Acute (5) Renal calculus, left Status: Acute (6) Acute renal insufficiency Status: Resolved Resolution Date/Time: 06/16/18 @ 17:54 (7) Diabetes mellitus, type 2 Status: Chronic Qualifiers: Diabetes mellitus fdc insulin use: with fdc use Diabetes mellitus complication status: with circulatory complication Diabetes mellitus complication detail: with other circulatory complications Qualified Codes: E11.59 - Type 2 diabetes mellitus with other circulatory complications; Z79.4 - penitentiary (current) use of insulin (8) Congestive heart failure Status: Chronic Qualifiers: Heart failure type: unspecified (9) COPD (chronic obstructive pulmonary disease) Status: Chronic Qualifiers: COPD type: unspecified COPD Qualified Codes: J44.9 - Chronic obstructive pulmonary disease, unspecified (10) Paroxysmal atrial fibrillation Status: Chronic (11) CAD (coronary artery disease) Status: Chronic Qualifiers: Coronary Disease-Associated Artery/Lesion type: [place] artery [place] vs. transplanted heart: [place] heart Associated angina: without angina Qualified Codes: I25.10 - Atherosclerotic heart disease of [place] coronary artery without angina pectoris (12) ICD (implantable cardioverter-defibrillator) in place Status: Chronic Clinical Quality Measures DVT/VTE Risk/Contraindication: Risk Factor Score Per Nursin RFS Level Per Nursing on Admit: 4+=Very High BRIGITTE LEMA DO Jul 26, 2018 11:31
--- NOTE | 2018-07-26 11:51 | NUR ---
Call to Wound Care re: buttocks, spoke bejni Hunt, they will come up & assess.
--- NOTE | 2018-07-26 11:57 | Speech Therapy Daily Note ---
Speech Daily Progress Note Subjective Date Seen by Provider: Jul 26, 2018 Time Seen by Provider: 00:30 Patient was just finishing up his feeding by PEG tube when I arrived. Objective Patient completed glottal attack exercises for strengthening pharyngeal area to improve swallow function at 75% with moderate verbal cues. Assessment Assessment Current Status: Fair Progress Treatment Plan Continue Plan of Care Communication Comprehension: 2 Expression: 2 Social Cognition Social Interaction: 2 Problem Solvin Memory: 2 Speech Short Term Goals Short Term Goals Short Term Goals 1) Patient will be able to recall new information with 80% or greater given minimal cues. 2) Patient will be able to name items/pictures presented with 80% or greater given minimal cues. 3) Patient will utilize compensatory strategies for safety within his room with 80% or greater given minimal cues. 4) Patient will complete pharyngeal exercises 5x/week in order to return to PO status. 5) Patient will tolerate trials of least restrictive diet level without s/s of aspiration. Speech Senior Care Goals Thoracic Surgeon Goals 1) Patient will improve memory, problem solving and auditory processing in order to return safely home. 2) Patient will demonstrate a safe swallow function for oral intake for maintaining nutrition/hydration. Speech-Plan Patient/Family Goals Patient/Family Goals: Patient's plans are to return home with his and caregiver post rehab. Treatment Plan Speech Therapy Treatment Plan: Continue Plan of Care Patient is making slight progress with skilled ST services. Treatment Duration: Jul 29, 2018 Frequency: 5 times per week Estimated Hrs Per Day: .5 hour per day Rehab Potential: Guarded Barriers to Learning: Patient has difficulty retaining new information. Pt/Family Agrees to Plan: Yes Time Speech Therapy Time In: 10:00 Speech Therapy Time Out: 10:30 Total Billed Time: 30 Billed Treatment Time 1, JULIA Carter Jul 26, 2018 11:57
--- NOTE | 2018-07-26 12:47 | Cardiology Progress Note ---
Subjective Date Seen by Provider: Jul 26, 2018 Time Seen by Provider: 12:46 Subjective/Events-last exam Patient is sitting in a chair, feeling better, denied any chest pain. Review of Systems General: No Chills, No Night Sweats, No Fatigue, No Malaise, No Appetite, No Other HEENT: No Head Aches, No Visual Changes, No Eye Pain, No Ear Pain, No Dysphasia , No Sinus Congestion, No Post Nasal Drip, No Sore Throat, No Other Pulmonary: No Dyspnea, No Cough, No Pleuritic Chest Pain, No Other Cardiovascular: No: Chest Pain, Palpitations, Orthopnea, Paroxysmal Noc. Dyspnea, Edema, Lt Headedness, Other Objective-Cardiology Exam Last Set of Vital Signs Vital Signs 07/26/18 07/26/18 05:30 10:43 Temp 97.4 Pulse 90 Resp 20 B/P (MAP) 112/76 (88) Pulse Ox 96 O2 Delivery Nasal Cannula O2 Flow Rate 2.00 Capillary Refill : I&O Intake and Output 07/26/18 00:00 Intake Total 3430 ml Output Total 1000 ml Balance 2430 ml Intake Oral 0 ml IV Total 565 ml Tube Feeding 2465 ml Other 400 ml Output Urine Total 1000 ml # Urine Diapers 11 # Bowel Movements 6 General: Alert, Cooperative, No Acute Distress HEENT: Atraumatic, PERRLA, EOMI, Mucous Memb Moist/[place] Neck: Supple, No JVD Lungs: Other (bilat rhonchi) Heart: Regular Rate, Normal S1, Normal S2 Abdomen: Normal Bowel Sounds, Soft, No Tenderness, Other (Peg Tube in place) Extremities: No Clubbing, Other (+1 edema BLE) Skin: No Rashes Neuro: Normal Speech, Other (Confusion strength 4/5 LES 4-/5 Upper limbs) A/P-Cardiology Admission Diagnosis Debility CAD HTN Chronic atrial fibrillation Assessment/Plan Debility, continue on physical therapy. Status post respiratory failure, pneumonia, silent aspiration, on Antibiotics, followed by primary care physician Urosepsis, history of kidney stone and nephrostomy tube, on antibiotics and managed by primary care team Silent aspiration, status post feeding tube placement Coronary artery disease, history of CABG done in the remote past. Patient had a stent done in December 2001 using MultiLink 2.518 mm to the proximal right coronary artery, 2017 had a Cypher stent 3.530 mm to the proximal and mid circumflex artery. 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 Mendez in [place]. Continue to follow History of congestive heart failure, reported ejection fraction 54 percent. MPI in 2013, continue to monitor Paroxysmal atrial fibrillation maintained on amiodarone, intolerant to oral anticoagulation secondary to recurrent nosebleed, on his transfer from [facility] patient is still on Loading dose of Amiodarone until July 26, Patient is maintained on Cardizem, Lopressor and Digoxin, continue to monitor, no changes are recommended Patient has been maintained on mexiletine. Probably due to ventricular fibrillation and history of shock from his defibrillator, known to have [facility] ICD implanted by Dr. vidales in [place]. Continue on Mexiletine COPD, chronic dyspnea, followed by primary care physician Chronic pedal edema,continue to diurese and monitor electrolytes Diabetes mellitus, followed and managed by primary care physician Clinical Quality Measures DVT/VTE Risk/Contraindication: Risk Factor Score Per Nursin RFS Level Per Nursing on Admit: 4+=Very High JOHN ALFARO MD Jul 26, 2018 12:47 pm
--- NOTE | 2018-07-26 13:06 | Occupational Ther Daily Note ---
OT Current Status-Daily Note Subjective Pt sitting in chair with spouse present. Pt denied pain. Mental Status/Objective Therapy Code Descriptions/Definitions Functional [place] Measure: 0=Not Assessed/NA 4=Minimal Assistance 1=Total Assistance 5=Supervision or Setup 2=Maximal Assistance 6=Modified [place] 3=Moderate Assistance 7=Complete [place] Attachments: Oxygen ADL-Treatment Spouse present and states she would like pt to shave. Pt attempted to shave using electric razor, but after minimal effort states he can't do anymore. Pt requires max assist to complete task. Pt states he does not want to shower today , but does agree to sponge bath. Pt washed face, arms, chest, abdomen, bilateral upper legs, and pieter area, but required assist for buttocks and bilateral lower legs. Donned pullover shirt with minimal assistance to orient and to pull down in back. Pt required assist to start pants over feet. Stood with minimal assistance for balance. Pt requires assist to pull pants up in back. Assist required to don socks. Pt states his usually does this for him. Min assist to don Velcro fasten shoes. Pt declined to complete oral hygiene at this time. Combed hair with minimal assistance. Pt requires encouragement to attempt tasks prior to receiving assistance. Therapy Code Descriptions/Definitions Functional [place] Measure: 0=Not Assessed/NA 4=Minimal Assistance 1=Total Assistance 5=Supervision or Setup 2=Maximal Assistance 6=Modified [place] 3=Moderate Assistance 7=Complete [place] Therapy Quality Codes: 6 Independent with activity with or without an assistive device 5 Patient requires set up or clean up by helper. Patient completes activity by themselves 4 Supervision or touching assist (CGA). [place] provide cues , steadying assist 3 The helper provides less than half the effort to complete the activity 2 The helper provides more than half the effort to complete the activity 1 Dependent. The helper does all the effort to complete an activity 7 Patient refused to complete or attempt activity 9 The patient did not perform the activity before the current illness or injury 88 Not attempted due to Medical conditions or safety concerns Grooming (FIM): 2 Bathing (FIM): 3 Shower/Bathe Self (QC): 3 Upper Body (FIM): 4 Lower Body Dressing (FIM): 2 Lower Body Dressing (QC): 2 Other Treatment Pt completed bilateral UE exercises to increase strength for ADLs and transfers. Pt completed two exercises x10 reps with red theraband. Pt requires cues for participation and correct exercise technique. Bilateral hand gymnasium teacher exercises x20 reps with mild resistance therapy foam to increase gymnasium teacher strength. Pt sitting in chair with needs met, spouse present, chair alarm in place, and telesitter in room. OT Short Term Goals Short Term Goals Time Frame: Jul 29, 2018 Eating(FIM): 4 Grooming(FIM): 3 Upper Body Dressing(FIM): 3 Lower Body Dressing(FIM): 3 Toileting(FIM): 4 Transfers (B,C,W/C) (FIM): 5 Toilet/Commode Transfer(FIM): 4 Additional Short Term Goals: 1-Demonstrate ADL Tasks, 2-Verbalize Understanding , 3-ImproveStrength/Mckinley 1=Demonstrate adherence to instructed precautions during ADL tasks. 2=Patient will verbalize/demonstrate understanding of assistive devices/ modifications for ADL. 3=Patient will improve strength/tolerance for activity to enable patient to perform ADL's. OT Assistant Associate Professor Goals Longterm Goals Time Frame: Aug 19, 2018 Eating (FIM): 5 Eating (QC): 5 Groomin Oral Hygiene (QC): 4 Bathing(FIM): 3 Shower/Bathe Self (QC): 3 Upper Body Dressing(FIM): 5 Upper Body Dressing (QC): 4 Lower Body Dressing(FIM): 4 Lower Body Dressing (QC): 4 On/Off Footwear (QC): 4 Toileting(FIM): 5 Toileting Hygiene (QC): 5 Transfers (B,C,W/C) (FIM): 5 Toilet/Commode Transfer(FIM): 5 Toilet/Commode Transfer (QC): 4 Additional Goals: 1-Demonstrate ADL Tasks, 2-Verbalize Understanding, 3- ImproveStrength/Mckinley 1=Demonstrate adherence to instructed precautions during ADL tasks. 2=Patient will verbalize/demonstrate understanding of assistive devices/ modifications for ADL. 3=Patient will improve strength/tolerance for activity to enable patient to perform ADL's. OT Education/Plan Discharge Recommendations Plan/Recommendations: Continue POC Treatment Plan/Plan of Care Patient would benefit from OT for education, treatment and training to promote independence in ADL's, mobility, safety and/or upper extremity function for ADL' s. Plan of Care: ADL Retraining, Functional Mobility, Group Exercise/Act as Ind, UE Funct Exercise/Act Treatment Duration: Aug 19, 2018 Frequency: At least 5 of 7 days/Wk (IRF) Estimated Hrs Per Day: 1.5 hours per day Agreement: Yes Rehab Potential: Guarded Time/GCodes Start Time: 11:15 Stop Time: 12:00 Total Time Billed (hr/min): 45 Billed Treatment Time 1 visit, ADLx2(35minutes), EX(10minutes) KLAUS MORRELL OT Jul 26, 2018 13:06
--- NOTE | 2018-07-26 14:48 | Therapy Group Daily Note ---
Therapy Daily Group Note Patient Education Topic Other List Below (memory strategies) Exercises Other (breathing exercises) Other/Notes Pt. participated in group PT OT session. Pt. came and went via w/c and assist for portable O2 at 2L and mask insitu. Pts. introduced themselves, shared their best joke and also shared their own favorite memory strategies for medications, appointments etc. Pts. all participated in memory activity with matching images. Some review of ARU practices was done with regard to Sunday schedule etc. Pt. to room after with meneses at hand, O2 insitu, at side and needs met. Start Time: 13:00 Stop Time: 14:20 Total Billed Treatment Time: 80 Total Billed Treatment 1,GRP TOM BAKER [employer] Jul 26, 2018 14:48
[2018-07-26 15:52] VITALS: BP 151/89
[2018-07-26] MEDS: VANCOMYCIN INJECTION 1,500 MG in NS IV 500 ML 500 ML IV SCH (18:04)
[2018-07-26] MEDS: ATORVASTATIN 40 MG (LIPITOR) TABLET PO SCH (21:49)
[2018-07-27] MEDS: MEXILETINE 150 MG (MEXITIL) CAPSULE PO SCH ×3 (01:01→16:55)
[2018-07-27] MEDS: RT-ALBUTEROL/IPRATROPIUM 3 ML (DUONEB) VIAL INH SCH ×6 (02:32→21:11)
[2018-07-27] MEDS: CEFEPIME INJECTION 2,000 MG in NS (IVPB) 50 ML IV SCH (06:00)
[2018-07-27] MEDS: FUROSEMIDE 20 MG (LASIX) TAB PO SCH ×2 (06:01→16:55)
[2018-07-27] MEDS: DILTIAZEM 60 MG (CARDIZEM) TAB PO SCH ×3 (06:01→21:52)
[2018-07-27] MEDS: KCL 20 MEQ POWDER FOR ORAL SOLUTION PEG SCH (06:01)
[2018-07-27] MEDS: inSUlin ASPART (NovoLOG) 1 UNIT/0.01 ML (CHARGE PER UNIT) SC SCH ×4 (06:03→21:52)
[2018-07-27 06:20] VITALS: BP 123/61
[2018-07-27] MEDS: guaiFENesin/DM (ROBITUSSIN DM) 10 ML UDC PO SCH ×3 (09:01→21:51)
[2018-07-27] MEDS: DIGOXIN 0.125 MG (LANOXIN) TAB PO SCH (09:01)
[2018-07-27] MEDS: PHENAZOPYRIDINE 100 MG (PYRIDIUM) TABLET PO SCH ×3 (09:01→18:06)
[2018-07-27] MEDS: LACTOBACILLUS ACIDOPHILUS (PROBIOTIC) CAPSULE PO SCH ×2 (09:01→21:52)
[2018-07-27] MEDS: meTOprolol TARTRATE 25 MG (LOPRESSOR) TABLET PO SCH ×2 (09:02→21:51)
[2018-07-27] MEDS: ASPIRIN 81 MG CHEW (CHILDREN'S ASA) PO SCH (09:02)
[2018-07-27] MEDS: AMIODARONE 200 MG (CORDARONE) TAB PO SCH (09:02)
--- NOTE | 2018-07-27 09:03 | Occupational Ther Daily Note ---
OT Current Status-Daily Note Subjective Pt alert, lying in bed. present in room. When asking pt questions, would answer. asked for adult diapers instead of briefs. Agrees to therapy. Mental Status/Objective Patient Orientation: Person, Place, Time, Situation Therapy Code Descriptions/Definitions Functional [place] Measure: 0=Not Assessed/NA 4=Minimal Assistance 1=Total Assistance 5=Supervision or Setup 2=Maximal Assistance 6=Modified [place] 3=Moderate Assistance 7=Complete [place] Attachments: IV, Oxygen, PEG Tube ADL-Treatment Pt states he does not want to shower today, but does agree to sponge bath. Pt washed face, arms, chest, abdomen, bilateral upper legs, and pieter area, but required assist for buttocks and bilateral lower legs. Donned pullover shirt with minimal assistance to orient and to pull down in back. Pt required assist to start pants over feet. Stood with minimal assistance for balance. Pt requires assist to pull pants up in back. Assist to don adult diapers. Assist required to don socks. Pt states his usually does this for him. Min assist to don Velcro fasten shoes. Pt declined to complete oral hygiene at this time. Combed hair with minimal assistance. Pt requires encouragement to attempt tasks prior to receiving assistance. Therapy Code Descriptions/Definitions Functional [place] Measure: 0=Not Assessed/NA 4=Minimal Assistance 1=Total Assistance 5=Supervision or Setup 2=Maximal Assistance 6=Modified [place] 3=Moderate Assistance 7=Complete [place] Therapy Quality Codes: 6 Independent with activity with or without an assistive device 5 Patient requires set up or clean up by helper. Patient completes activity by themselves 4 Supervision or touching assist (CGA). Ninole provide cues , steadying assist 3 The helper provides less than half the effort to complete the activity 2 The helper provides more than half the effort to complete the activity 1 Dependent. The helper does all the effort to complete an activity 7 Patient refused to complete or attempt activity 9 The patient did not perform the activity before the current illness or injury 88 Not attempted due to Medical conditions or safety concerns Grooming (FIM): 4 Bathing (FIM): 3 Bathing Location: L Arm, R Arm, L Upper Leg, R Upper Leg, Chest, Abdomen, Perineal Area Shower/Bathe Self (QC): 3 Upper Body (FIM): 4 Upper Body Dressing (QC): 3 Lower Body Dressing (FIM): 2 Lower Body Dressing (QC): 2 On/Off Footwear (QC): 2 Other Treatment UE exercises with medium resistance theraband and light resistance therapy foam. Tolerated well and minimal verbal cues needed for proper positioning during exercises. After therapy, pt sitting in w/c with call light/phone in reach. present in room. All needs met. OT Short Term Goals Short Term Goals Time Frame: Jul 29, 2018 Eating(FIM): 4 Grooming(FIM): 3 Upper Body Dressing(FIM): 3 Lower Body Dressing(FIM): 3 Toileting(FIM): 4 Transfers (B,C,W/C) (FIM): 5 Toilet/Commode Transfer(FIM): 4 Additional Short Term Goals: 1-Demonstrate ADL Tasks, 2-Verbalize Understanding , 3-ImproveStrength/Mckinley 1=Demonstrate adherence to instructed precautions during ADL tasks. 2=Patient will verbalize/demonstrate understanding of assistive devices/ modifications for ADL. 3=Patient will improve strength/tolerance for activity to enable patient to perform ADL's. OT Mcc Goals Mcc Goals Time Frame: Aug 19, 2018 Eating (FIM): 5 Eating (QC): 5 Groomin Oral Hygiene (QC): 4 Bathing(FIM): 3 Shower/Bathe Self (QC): 3 Upper Body Dressing(FIM): 5 Upper Body Dressing (QC): 4 Lower Body Dressing(FIM): 4 Lower Body Dressing (QC): 4 On/Off Footwear (QC): 4 Toileting(FIM): 5 Toileting Hygiene (QC): 5 Transfers (B,C,W/C) (FIM): 5 Toilet/Commode Transfer(FIM): 5 Toilet/Commode Transfer (QC): 4 Additional Goals: 1-Demonstrate ADL Tasks, 2-Verbalize Understanding, 3- ImproveStrength/Mckinley 1=Demonstrate adherence to instructed precautions during ADL tasks. 2=Patient will verbalize/demonstrate understanding of assistive devices/ modifications for ADL. 3=Patient will improve strength/tolerance for activity to enable patient to perform ADL's. OT Education/Plan Discharge Recommendations Plan/Recommendations: Continue POC Treatment Plan/Plan of Care Patient would benefit from OT for education, treatment and training to promote independence in ADL's, mobility, safety and/or upper extremity function for ADL' s. Plan of Care: ADL Retraining, Functional Mobility, Group Exercise/Act as Ind, UE Funct Exercise/Act Treatment Duration: Aug 19, 2018 Frequency: At least 5 of 7 days/Wk (IRF) Estimated Hrs Per Day: 1.5 hours per day Agreement: Yes Rehab Potential: Guarded Time/GCodes Start Time: 08:00 Stop Time: 09:00 Total Time Billed (hr/min): 60 Billed Treatment Time 1 visit-ADL 1 (50 min) EX 1 (10 min) AYLA VENEGAS Jul 27, 2018 09:03
[2018-07-27] MEDS: PANTOPRAZOLE 2 MG/ML LIQUID 200 ML (PROTONIX) PEG SCH ×3 (09:13)
[2018-07-27] MEDS: DOCUSATE SODIUM 10 MG/ML 10 ML UDC (COLACE) PEG SCH ×2 (09:13→21:50)
[2018-07-27] MEDS: MENTHOL/ZINC OXIDE (CALMOSEPTINE) 113 GM TUBE TOP SCH ×2 (09:14→21:53)
--- NOTE | 2018-07-27 09:55 | Physical Therapy Daily Note ---
PT Daily Note-Current Subjective Pt. up in w/c and agrees to Rx. present and encouraging Pain Location: No Pain Reported Mental Status Patient Orientation: Person, Place Attachments: PEG Tube, IV Transfers Therapy Code Descriptions/Definitions Functional [place] Measure: 0=Not Assessed/NA 4=Minimal Assistance 1=Total Assistance 5=Supervision or Setup 2=Maximal Assistance 6=Modified [place] 3=Moderate Assistance 7=Complete [place] Therapy Quality Codes: 6 Independent with activity with or without an assistive device 5 Patient requires set up or clean up by helper. Patient completes activity by themselves 4 Supervision or touching assist (CGA). [place] provide cues , steadying assist 3 The helper provides less than half the effort to complete the activity 2 The helper provides more than half the effort to complete the activity 1 Dependent. The helper does all the effort to complete an activity 7 Patient refused to complete or attempt activity 9 The patient did not perform the activity before the current illness or injury 88 Not attempted due to Medical conditions or safety concerns Transfers (B, C, W/C) (FIM): 5 Scootin Rollin Supine to/from Sit: 6 Sit to/from Stand: 5 Bed to/from Chair: 5 Car Transfer (QC): 5 Gait Training Does the Patient Walk?: Yes Gait (FIM): 2 Distance (FIM): 9=202-87 ft (100x2, 120) Gait Level of Assist: 4 Gait Persons Needed: 1 Gait Assistive Device: FWW w/c to follow close, pt. sits without notice, fatigues, head down, feet shuffle , narrow ANTONI Wheelchair Training Does the Pt Use a Wheelchair?: Yes Wheelchair (FIM): 2 Wheelchair Distance: 1=003-22 ft (125x2) Wheelchair Level of Assist: 4 (pt. needs assist in tight areas for turning and backing) Type of Wheelchair: Manual Exercises Supine Ex: Ankle pumps, Quad Set, Heel Slides, Scooting, Straight leg raise, Hip abd/add Supine Reps: 12 Seated Therapy Exercises: Ankle pumps, Sit to stand, Long arc quads, Hip flexion, Hip abd/add Seated Reps: 12 NuStep Minutes: 10 NuStep Workload: 2 Assessment Current Status: Good Progress giving full effort, motivated to get home, assures caregiver can help with anything they need in day time hrs as she works nights PT Short Term Goals Short Term Goals Time Frame: Jul 29, 2018 Transfers (B,C,W/C) (FIM): 5 Gait (FIM): 2 Distance (FIM): 1=up to 49 ft Gait Assistive Device: FWW Wheelchair Distance: 30' PT Sports Reporter Goals Correction Goals PT Correction Goals Time Frame: Aug 12, 2018 Transfers (B,C,W/C) (FIM): 6 Sit to Lying (QC): 6 Lying-Sitting on Side/Bed(QC): 6 Sit to Stand (QC): 6 Rollin Roll Left to Right (QC): 6 Chair/Rrq-fu-Elwpw Xfer(QC): 6 Car Transfer (QC): 5 Does the Patient Walk: Yes Gait (FIM): 5 (household) Gait distance (FIM): 0=304-69 ft Walk 10 feet (QC): 6 Walk 10ft-Uneven Surface(QC): 6 Walk 50ft with 2 Turns (QC): 6 Walk 150 ft (QC): 88 Gait Level of Assist: 6 Gait Assistive Device: FWW Does the Pt use WC or Scooter?: Yes Wheelchair (FIM): 6 Wheelchair distance (FIM): 3=150 ft Wheel 50 feet with 2 turns (QC: 6 Stairs (FIM): 88 1 Step (curb) (QC): 88 4 Steps (QC): 88 12 Steps (QC): 88 Picking up an Object (QC): 88 PT Plan Treatment/Plan Treatment Plan: Continue Plan of Care Treatment Plan: Bed Mobility, Education, Functional Activity Mckinley, Functional Strength, Group Therapy, Gait, Safety, Therapeutic Exercise, Transfers Treatment Duration: Aug 12, 2018 Frequency: At least 5 of 7 days/Wk (IRF) Estimated Hrs Per Day: 1.5 hours per day Patient and/or Family Agrees t: Yes Safety Risks/Education Patient Education: Gait Training, Transfer Techniques, Correct Positioning, W/ C Management, Disease Process, Safety Issues Teaching Recipient: Patient Teaching Methods: Demonstration, Discussion Response to Teaching: Verbalize Understanding, Return Demonstration, Reinforcement Needed Time/GCodes Time In: 900 Time Out: 1000 Total Billed Treatment Time: 60 Total Billed Treatment 1,EX25m,FA15,GT20m G Codes Necessary: No TOM BAKER [employer] Jul 27, 2018 09:55
--- NOTE | 2018-07-27 11:20 | PM&R Progress Note ---
Subjective This was a face to face visit with the patient. Date Seen by Provider: Jul 27, 2018 Time Seen by Provider: 07:50 Subjective/Events-last exam Patient was seen in his room this AM Patient SBA for transfers Appreciate Therapy and cardiology notes Review of Systems Neurological: Weakness, Confusion Objective Physician Exam Last Set of Vital Signs Vital Signs Date Time Temp Pulse Resp B/P (MAP) Pulse Ox O2 Delivery O2 Flow Rate FiO2 07/27/18 11:00 95 Nasal Cannula 2.00 07/27/18 06:20 97.8 89 20 123/61 (81) Capillary Refill : I&O Intake and Output 07/26/18 23:59 Intake Total 3880 ml Output Total 675 ml Balance 3205 ml Intake Oral 0 ml IV Total 615 ml Tube Feeding 2465 ml Other 800 ml Output Urine Total 675 ml # Urine Diapers 6 # Bowel Movements 2 General: Alert, Cooperative, No Acute Distress HEENT: Atraumatic, PERRLA, EOMI, Mucous Memb Moist/[place] Neck: Supple, No JVD Lungs: Other (bilat rhonchi) Heart: Regular Rate, Normal S1, Normal S2 Abdomen: Normal Bowel Sounds, Soft, No Tenderness, Other (Peg Tube in place) Extremities: No Clubbing, Other (+1 edema BLE) Skin: No Rashes Neuro: Normal Speech, Other (Confusion strength 4/5 LES 4-/5 Upper limbs) Results Lab Data Laboratory Tests 07/24/18 15:57: Glucometer 139H 07/24/18 20:38: Glucometer 121H 07/25/18 05:58: Glucometer 109 07/25/18 11:04: Glucometer 139H 07/25/18 16:46: Glucometer 99 07/25/18 20:39: Glucometer 98 07/26/18 05:49: Glucometer 114H 07/26/18 11:13: Glucometer 129H 07/26/18 16:05: Glucometer 131H 07/26/18 20:14: Glucometer 133H 07/27/18 06:02: Glucometer 96 07/27/18 11:09: Assessment/Plan Assessment and Plan Disuse myopathy continue PT/OT S/P resp failure due to pneumonia with sepsis Sepsis due to UTI treated with hx of Kidney stone and Nephrostomy tube A Fib controlled with med Dysphagia NPO on tube feeds Confusion multifactorial Plan Continue PT/OT/ST and current meds F/U with Hospitalist and Cardiology Team Conference 1-19 Co-Morbidities that are continuing to impact the rehab process: (include details ) NORRIS CARR MD Jul 27, 2018 11:20
--- NOTE | 2018-07-27 11:43 | Cardiology Progress Note ---
Subjective Date Seen by Provider: Jul 27, 2018 Time Seen by Provider: 11:00 Subjective/Events-last exam Patient is sitting in a chair, receiving breathing treatment. Feeling better, improving. No active chest pain Review of Systems General: No Chills, No Night Sweats; Fatigue; No Malaise, No Appetite, No Other HEENT: No Head Aches, No Visual Changes, No Eye Pain, No Ear Pain, No Dysphasia , No Sinus Congestion, No Post Nasal Drip, No Sore Throat, No Other Pulmonary: Dyspnea; No Cough, No Pleuritic Chest Pain, No Other Cardiovascular: No: Chest Pain, Palpitations, Orthopnea, Paroxysmal Noc. Dyspnea, Edema, Lt Headedness, Other Objective-Cardiology Exam Last Set of Vital Signs Vital Signs 07/27/18 07/27/18 06:20 11:00 Temp 97.8 Pulse 89 Resp 20 B/P (MAP) 123/61 (81) Pulse Ox 95 O2 Delivery Nasal Cannula O2 Flow Rate 2.00 Capillary Refill : I&O Intake and Output 07/27/18 00:00 Intake Total 3880 ml Output Total 675 ml Balance 3205 ml Intake Oral 0 ml IV Total 615 ml Tube Feeding 2465 ml Other 800 ml Output Urine Total 675 ml # Urine Diapers 6 # Bowel Movements 2 General: Alert, Cooperative, No Acute Distress HEENT: Atraumatic, PERRLA, EOMI, Mucous Memb Moist/[place] Neck: Supple, No JVD Lungs: Other (bilat rhonchi) Heart: Regular Rate, Normal S1, Normal S2 Abdomen: Normal Bowel Sounds, Soft, No Tenderness, Other (Peg Tube in place) Extremities: No Clubbing, Other (+1 edema BLE) Skin: No Rashes Neuro: Normal Speech, Other (Confusion strength 4/5 LES 4-/5 Upper limbs) Results Lab Laboratory Tests Test 07/26/18 16:05 07/26/18 20:14 07/27/18 06:02 07/27/18 11:09 Range/Units Glucometer 131 H 133 H 96 138 H 70-110 MG/DL A/P-Cardiology Admission Diagnosis Debility CAD HTN Chronic atrial fibrillation Assessment/Plan Debility, continue on physical therapy. Status post respiratory failure, pneumonia, silent aspiration, on Antibiotics, followed by primary care physician Urosepsis, history of kidney stone and nephrostomy tube, on antibiotics and managed by primary care team Silent aspiration, status post feeding tube placement Coronary artery disease, history of CABG done in the remote past. Patient had a stent done in December 2001 using MultiLink 2.518 mm to the proximal right coronary artery, 2017 had a Cypher stent 3.530 mm to the proximal and mid circumflex artery. Has been followed and managed by primary lens fabricating machine tender Dr. Mendez in [place]. Continue to follow History of congestive heart failure, reported ejection fraction 54 percent. MPI in 2013, continue to monitor Paroxysmal atrial fibrillation maintained on amiodarone, intolerant to oral anticoagulation secondary to recurrent nosebleed, on his transfer [facility] patient is still on Loading dose of Amiodarone until July 26, Patient is maintained on Cardizem, Lopressor and Digoxin, continue to monitor, no changes are recommended Patient has been maintained on mexiletine. Probably due to ventricular fibrillation and history of shock from his defibrillator, known to have [employer]. Morteza ICD implanted by Dr. vidales in [place]. Continue on Mexiletine COPD, chronic dyspnea, followed by primary care physician Chronic pedal edema,continue to diurese and monitor electrolytes Diabetes mellitus, followed and managed by primary care physician Clinical Quality Measures DVT/VTE Risk/Contraindication: Risk Factor Score Per Nursin RFS Level Per Nursing on Admit: 4+=Very High JOHN ALFARO MD Jul 27, 2018 11:43
--- NOTE | 2018-07-27 12:29 | Therapy Group Daily Note ---
Therapy Daily Group Note Patient Education Topic Other List Below ("explain pain" and management , Transfer skills) Exercises Other (vestibular visual exercises) Other/Notes Pt. attended PT group session. Pt. came went via w/c with assist for portable O2 at 2 L and mask insitu. Pts introduced selves and laughed sharing the first car they had ever driven and how that experience unfolded. Pts. shared during the education portion regarding pain and and how they manage pain and understand pain. TRF skills for pushing up in bed, rolling, supine to side to sit and sit to stand were all demonstrated and taught. Vestibular dysfunction was discussed as well as several basic eye exercises for vestibular rehab. Pt. to room after group with chair alarm on, meneses at hand and O2 insitu 2 L. Start Time: 11:00 Stop Time: 12:00 Total Billed Treatment Time: 60 Total Billed Treatment 1,GRP TOM BAKER SOCIAL SCIENCES LECTURER Jul 27, 2018 12:29
--- NOTE | 2018-07-27 12:31 | Progress Note-Hospitalist ---
Subjective HPI/CC On Admission Date Seen by Provider: Jul 27, 2018 Time Seen by Provider: 11:30 CC: Severe debility HPI: This is a 78-year-old white male [facility]ly [facility] patient was admitted to inpatient rehabilitation for IV medication and severe debility resolution. He was admitted to [facility] for 11 days requiring PEG tube placement due to silent aspiration and urinary stent placement due to obstructive stone in ureter and maintained on antibiotic regimen with aggressive physical therapy. I reviewed old records and culture results from infectious disease and reviewed current lab results along with vital signs. He is sitting up in chair drowsy but oriented 3 but appears to be severely chronically ill. Her goal is to return to independent ADL function along with completion of IV antibiotics. Subjective/Events-last exam Patient participating in therapy Lungs are much improved today Due for labs tomorrow Bowels are moving PEG tube is functioning properly Overall improved Review of Systems Pulmonary: Cough Objective Exam Vital Signs Vital Signs Date Time Temp Pulse Resp B/P (MAP) Pulse Ox O2 Delivery O2 Flow Rate FiO2 07/27/18 11:00 95 Nasal Cannula 2.00 07/27/18 06:20 97.8 89 20 123/61 (81) Capillary Refill : General Appearance: No Apparent Distress, WD/WN Neck: Full Range of Motion, Normal Inspection, Non Tender, Supple, Carotid Bruit Respiratory: Chest Non Tender, Normal Breath Sounds, No Accessory Muscle Use, No Respiratory Distress, Crackles (Much improved today) Neurologic/Psychiatric: Alert, Oriented x3, No Motor/Sensory Deficits, Normal Mood/Affect Results/Procedures Lab Patient resulted labs reviewed. Assessment/Plan Assessment and Plan Assess & Plan/Chief Complaint Assessment: MRSA pneumonia Pseudomonas UTI Severe debilitated state CAD previous bypass graft ICD defibrillator in place Presbycusis Sleep apnea Chronic respiratory failure Plan: PEG tube feedings Speech therapy PT/OT Long recovery expected Consult Dr Fonseca is appreciated Consult Dr Suresh Check labs tomorrow Diagnosis/Problems Diagnosis/Problems (1) MRSA pneumonia Status: Acute Qualifiers: Laterality: unspecified laterality Lung location: unspecified part of lung Qualified Codes: J15.212 - Pneumonia due to methicillin resistant Staphylococcus aureus (2) Pseudomonas urinary tract infection Status: Acute (3) Debility Status: Acute (4) Pyelonephritis Status: Acute (5) Renal calculus, left Status: Acute (6) Acute renal insufficiency Status: Resolved Resolution Date/Time: 06/16/18 @ 17:54 (7) Diabetes mellitus, type 2 Status: Chronic 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: 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: with 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 use Diabetes mellitus complication status: with circulatory complication Diabetes mellitus complication detail: with other circulatory complications Qualified Codes: E11.59 - Type 2 diabetes mellitus with other circulatory complications; Z79.4 - jail (current) use of insulin (8) Congestive heart failure Status: Chronic Qualifiers: Heart failure type: unspecified (9) COPD (chronic obstructive pulmonary disease) Status: Chronic Qualifiers: COPD type: unspecified COPD Qualified Codes: J44.9 - Chronic obstructive pulmonary disease, unspecified (10) Paroxysmal atrial fibrillation Status: Chronic (11) CAD (coronary artery disease) Status: Chronic Qualifiers: Coronary Disease-Associated Artery/Lesion type: [place] artery [place] vs. transplanted heart: [place] heart Associated angina: without angina Qualified Codes: I25.10 - Atherosclerotic heart disease of [place] coronary artery without angina pectoris (12) ICD (implantable cardioverter-defibrillator) in place Status: Chronic Clinical Quality Measures DVT/VTE Risk/Contraindication: Risk Factor Score Per Nursin RFS Level Per Nursing on Admit: 4+=Very High BRIGITTE LEMA DO Jul 27, 2018 12:31
[2018-07-27] MEDS: VANCOMYCIN INJECTION 1,500 MG in NS IV 500 ML 500 ML IV SCH (18:06)
[2018-07-27 18:24] VITALS: BP 113/54
[2018-07-27] MEDS: ATORVASTATIN 40 MG (LIPITOR) TABLET PO SCH (21:52)
[2018-07-28] MEDS: MEXILETINE 150 MG (MEXITIL) CAPSULE PO SCH ×3 (00:50→16:56)
[2018-07-28] MEDS: RT-ALBUTEROL/IPRATROPIUM 3 ML (DUONEB) VIAL INH SCH ×5 (02:41→23:02)
[2018-07-28 06:00] VITALS: BP 127/77
[2018-07-28] MEDS: DILTIAZEM 60 MG (CARDIZEM) TAB PO SCH ×3 (06:10→20:49)
[2018-07-28] MEDS: FUROSEMIDE 20 MG (LASIX) TAB PO SCH ×2 (06:10→16:56)
[2018-07-28] MEDS: KCL 20 MEQ POWDER FOR ORAL SOLUTION PEG SCH (06:10)
[2018-07-28 06:17] LABS: BASOPHILS % (AUTO) 0 % (0-10); EOSINOPHILS # (AUTO) 0.1 10^3/uL (0.0-0.3); EOSINOPHILS % (AUTO) 2 % (0-10); HEMATOCRIT 28 % (40-54); HEMOGLOBIN 8.4 G/DL (13.3-17.7); LYMPHOCYTES % (AUTO) 15 % (12-44); MEAN CORPUSCULAR HEMOGLOBIN 29 PG (25-34); MEAN CORPUSCULAR HGB CONC 31 G/DL (32-36); MEAN CORPUSCULAR VOLUME 96 FL (80-99); MEAN PLATELET VOLUME 12.2 FL (7.4-10.4); MONOCYTES # (AUTO) 0.9 X 10^3 (0.0-1.0); MONOCYTES % (AUTO) 13 % (0-12); NEUTROPHILS # (AUTO) 4.8 X 10^3 (1.8-7.8); NEUTROPHILS % (AUTO) 69 % (42-75); PLATELET COUNT 141 10^3/uL (130-400); RED BLOOD COUNT 2.86 10^6/uL (4.35-5.85); WHITE BLOOD COUNT 6.9 10^3/uL (4.3-11.0)
[2018-07-28 06:37] LABS: ALANINE AMINOTRANSFERASE 14 U/L (0-55); ALKALINE PHOSPHATASE 87 U/L (40-136); BILIRUBIN,TOTAL 0.4 MG/DL (0.1-1.0); BUN/CREATININE RATIO 24; CARBON DIOXIDE 31 MMOL/L (21-32); CHLORIDE 99 MMOL/L (98-107); CREATININE SERUM 0.92 MG/DL (0.60-1.30); GFR ESTIMATED > 60; GLUCOSE 105 MG/DL (70-105); POTASSIUM 4.8 MMOL/L (3.6-5.0); SODIUM 138 MMOL/L (135-145); TOTAL PROTEIN 7.2 GM/DL (6.4-8.2)
[2018-07-28] MEDS: inSUlin ASPART (NovoLOG) 1 UNIT/0.01 ML (CHARGE PER UNIT) SC SCH ×3 (06:39→16:26)
[2018-07-28] MEDS: PANTOPRAZOLE 2 MG/ML LIQUID 200 ML (PROTONIX) PEG SCH ×3 (09:00)
[2018-07-28] MEDS: MENTHOL/ZINC OXIDE (CALMOSEPTINE) 113 GM TUBE TOP SCH ×2 (09:00→20:49)
[2018-07-28] MEDS: DOCUSATE SODIUM 10 MG/ML 10 ML UDC (COLACE) PEG SCH ×2 (09:00→20:49)
[2018-07-28] MEDS: meTOprolol TARTRATE 25 MG (LOPRESSOR) TABLET PO SCH ×2 (09:01→20:49)
[2018-07-28] MEDS: LACTOBACILLUS ACIDOPHILUS (PROBIOTIC) CAPSULE PO SCH ×2 (09:01→20:49)
[2018-07-28] MEDS: guaiFENesin/DM (ROBITUSSIN DM) 10 ML UDC PO SCH ×3 (09:01→20:49)
[2018-07-28] MEDS: AMIODARONE 200 MG (CORDARONE) TAB PO SCH (09:01)
[2018-07-28] MEDS: PHENAZOPYRIDINE 100 MG (PYRIDIUM) TABLET PO SCH ×3 (09:01→17:58)
[2018-07-28] MEDS: DIGOXIN 0.125 MG (LANOXIN) TAB PO SCH (09:02)
[2018-07-28 09:05] VITALS: BP 117/70
--- NOTE | 2018-07-28 11:50 | Cardiology Progress Note ---
Subjective Date Seen by Provider: Jul 28, 2018 Time Seen by Provider: 11:49 Subjective/Events-last exam Patient is sitting in a chair, feeling better. Denied any chest pain. Asking to go home Review of Systems General: No Chills, No Night Sweats, No Fatigue, No Malaise, No Appetite, No Other HEENT: No Head Aches, No Visual Changes, No Eye Pain, No Ear Pain, No Dysphasia , No Sinus Congestion, No Post Nasal Drip, No Sore Throat, No Other Pulmonary: No Dyspnea, No Cough, No Pleuritic Chest Pain, No Other Cardiovascular: No: Chest Pain, Palpitations, Orthopnea, Paroxysmal Noc. Dyspnea, Edema, Lt Headedness, Other Objective-Cardiology Exam Last Set of Vital Signs Vital Signs 07/28/18 07/28/18 07/28/18 07/28/18 06:00 06:41 08:00 09:05 Temp 98.6 Pulse 93 Resp 20 B/P (MAP) 117/70 (86) Pulse Ox 92 O2 Delivery Nasal Cannula O2 Flow Rate 2.00 Capillary Refill : I&O Intake and Output 07/28/18 00:00 Intake Total 2970 ml Output Total 455 ml Balance 2515 ml Intake Oral 0 ml IV Total 50 ml Tube Feeding 2120 ml Other 800 ml Output Urine Total 455 ml # Urine Diapers 7 # Bowel Movements 3 General: Alert, Cooperative, No Acute Distress HEENT: Atraumatic, PERRLA, EOMI, Mucous Memb Moist/[place] Neck: Supple, No JVD Lungs: Other (bilat rhonchi) Heart: Regular Rate, Normal S1, Normal S2 Abdomen: Normal Bowel Sounds, Soft, No Tenderness, Other (Peg Tube in place) Extremities: No Clubbing, Other (+1 edema BLE) Skin: No Rashes Neuro: Normal Speech, Other (Confusion strength 4/5 LES 4-/5 Upper limbs) Results Lab Laboratory Tests 07/28/18 05:40 A/P-Cardiology Admission Diagnosis Debility CAD HTN Chronic atrial fibrillation Assessment/Plan Debility, reporting improvement, asking to go home. Status post respiratory failure, pneumonia, silent aspiration, on Antibiotics, followed by primary care physician Urosepsis, history of kidney stone and nephrostomy tube, on antibiotics and managed by primary care team Silent aspiration, status post feeding tube placement Coronary artery disease, history of CABG done in the remote past. Patient had a stent done in December 2001 using MultiLink 2.518 mm to the proximal right coronary artery, 2017 had a Cypher stent 3.530 mm to the proximal and mid circumflex artery. Has been followed and managed by primary station inspector Dr. Mendez in [place]. Continue to follow History of congestive heart failure, reported ejection fraction 54 percent. MPI in 2013, continue to monitor Paroxysmal atrial fibrillation maintained on amiodarone, intolerant to oral anticoagulation secondary to recurrent nosebleed, on his transfer from [facility] patient is still on Loading dose of Amiodarone until July 26, Patient is maintained on Cardizem, Lopressor and Digoxin, continue to monitor, no changes are recommended Patient has been maintained on mexiletine. Probably due to ventricular fibrillation and history of shock from his defibrillator, known to have St. Morteza ICD implanted by Dr. vidales in [place]. Continue on Mexiletine COPD, chronic dyspnea, followed by primary care physician Chronic pedal edema,continue to diurese and monitor electrolytes Diabetes mellitus, followed and managed by primary care physician Clinical Quality Measures DVT/VTE Risk/Contraindication: Risk Factor Score Per Nursin RFS Level Per Nursing on Admit: 4+=Very High JOHN ALFARO MD Jul 28, 2018 11:50 am
--- NOTE | 2018-07-28 12:20 | NUR ---
Dr. Flores to floor. Informed of dropping HGB. Also, diarrhea with tarry looking stools. Orders to hold ASA this AM and check stool for occult blood. Questran BID. Orders to consult Dr. Payne if OB stool is positive. Addendum: 07/28/18 at 1634 by THAIS BERNARD RN Also, orders to DC accuchecks and SSI.
--- NOTE | 2018-07-28 13:06 | Progress Note-Hospitalist ---
Subjective HPI/CC On Admission Date Seen by Provider: Jul 28, 2018 Time Seen by Provider: 11:45 CC: Severe debility HPI: This is a 78-year-old white male Formerly [facility] patient was admitted to inpatient rehabilitation for IV medication and severe debility resolution. He was admitted to [facility] for 11 days requiring PEG tube placement due to silent aspiration and urinary stent placement due to obstructive stone in ureter and maintained on antibiotic regimen with aggressive physical therapy. I reviewed old records and culture results from infectious disease and reviewed current lab results along with vital signs. He is sitting up in chair drowsy but oriented 3 but appears to be severely chronically ill. Her goal is to return to independent ADL function along with completion of IV antibiotics. Subjective/Events-last exam Multiple issues occurring but he remains stable Having a lot of diarrhea that started yesterday that appears to be tarry and dark and may be containing blood We will Hemoccult stools and if positive will consult general surgery for endoscopy We will discontinue Accu-Cheks Maintain Questran twice daily Holding aspirin due to possible GI bleed reports that he has had gastric ulcers Review of Systems General: Fatigue Gastrointestinal: Diarrhea, Melena Objective Exam Vital Signs Vital Signs Date Time Temp Pulse Resp B/P (MAP) Pulse Ox O2 Delivery O2 Flow Rate FiO2 07/28/18 15:54 97.7 89 20 128/70 (89) 97 Nasal Cannula 2.00 Capillary Refill : General Appearance: No Apparent Distress, WD/WN, Chronically ill Respiratory: Chest Non Tender, Normal Breath Sounds, No Accessory Muscle Use, No Respiratory Distress, Crackles, Wheezing Cardiovascular: Regular Rate, Rhythm, No Edema, No Gallop, No JVD, No Murmur, Normal Peripheral Pulses Neurologic/Psychiatric: Alert, Oriented x3, No Motor/Sensory Deficits, Normal Mood/Affect Results/Procedures Lab Laboratory Tests 07/28/18 05:40 Patient resulted labs reviewed. Assessment/Plan Assessment and Plan Assess & Plan/Chief Complaint Assessment: Anemia with presumed GI bleed with hemoccult positive and Dr Payne consult for EGD/Colon tomorrow MRSA pneumonia Pseudomonas UTI Severe debilitated state CAD previous bypass graft ICD defibrillator in place Presbycusis Sleep apnea Chronic respiratory failure Plan: Scopes tomorrow Hold ASA, DC accuchecks PEG tube feedings Speech therapy PT/OT Long recovery expected Consult Dr Fonseca is appreciated Consult Dr Demetrice Payne is appreciated Check labs tomorrow Diagnosis/Problems Diagnosis/Problems (1) GI bleed Status: Acute Qualifiers: GI bleed type/associated pathology: unspecified gastrointestinal hemorrhage type Qualified Codes: K92.2 - Gastrointestinal hemorrhage, unspecified (2) MRSA pneumonia Status: Acute Qualifiers: Laterality: unspecified laterality Lung location: unspecified part of lung Qualified Codes: J15.212 - Pneumonia due to methicillin resistant Staphylococcus aureus (3) Pseudomonas urinary tract infection Status: Acute (4) Debility Status: Acute (5) Pyelonephritis Status: Acute (6) Renal calculus, left Status: Acute (7) Acute renal insufficiency Status: Resolved Resolution Date/Time: 06/16/18 @ 17:54 (8) Diabetes mellitus, type 2 Status: Chronic Qualifiers: 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: with fci use Diabetes mellitus complication status: with circulatory complication Diabetes mellitus complication detail: with other circulatory complications Qualified Codes: E11.59 - Type 2 diabetes mellitus with other circulatory complications; Z79.4 - nursing home (current) use of insulin (9) Congestive heart failure Status: Chronic Qualifiers: Heart failure type: unspecified (10) COPD (chronic obstructive pulmonary disease) Status: Chronic Qualifiers: COPD type: unspecified COPD Qualified Codes: J44.9 - Chronic obstructive pulmonary disease, unspecified (11) Paroxysmal atrial fibrillation Status: Chronic (12) CAD (coronary artery disease) Status: Chronic Qualifiers: Coronary Disease-Associated Artery/Lesion type: [place] artery [place] vs. transplanted heart: [place] heart Associated angina: without angina Qualified Codes: I25.10 - Atherosclerotic heart disease of [place] coronary artery without angina pectoris (13) ICD (implantable cardioverter-defibrillator) in place Status: Chronic (14) Melena Status: Acute (15) Diarrhea Status: Acute Qualifiers: Diarrhea type: unspecified type Qualified Codes: R19.7 - Diarrhea, unspecified (16) Anemia Status: Acute Qualifiers: Anemia type: iron deficiency Iron deficiency anemia type: chronic blood loss Qualified Codes: D50.0 - Iron deficiency anemia secondary to blood loss ( chronic) Clinical Quality Measures DVT/VTE Risk/Contraindication: Risk Factor Score Per Nursin RFS Level Per Nursing on Admit: 4+=Very High BRIGITTE LEMA DO Jul 28, 2018 13:06
[2018-07-28] MEDS: ASPIRIN 81 MG CHEW (CHILDREN'S ASA) PO SCH (14:30)
[2018-07-28 15:54] VITALS: BP 128/70
--- NOTE | 2018-07-28 17:12 | NUR ---
Dr. Payne notified of consult.
--- NOTE | 2018-07-28 17:30 | NUR ---
Dr. Payne to floor with new orders. See orders for details.
[2018-07-28] MEDS: VANCOMYCIN INJECTION 1,500 MG in NS IV 500 ML 500 ML IV SCH (17:58)
[2018-07-28] MEDS ORDERED: MAGNESIUM CITRATE 300 ML BTL PO ONE (18:00)
--- NOTE | 2018-07-28 18:19 | CONSULTATION REPORT ---
DATE OF SERVICE: 07/28/2018 ATTENDING PRIMARY CARE PHYSICIAN: Dr. Ybarra. CONSULTING PHYSICIAN: Dr. Flores. HISTORY OF PRESENT ILLNESS: The patient is a 78-year-old male with an extensive past medical history as well as severe debility. He was admitted to [facility] for 11 days due to aspiration pneumonia as well as placement of a urinary stent for obstructive uropathy. He also was on aggressive antibiotic support. Due to his aspiration, a percutaneous gastrostomy tube was placed and has been receiving alimentation through that modality. Since that time, he has been referred over to [facility] to be closer to home. He is improving; however, his hemoglobin has slowly been trending downward initially at 11.1; however, today it is 8.4 over 3 days. His stools have been dark as well and he was Hemoccult positive. Upon further questioning with the patient and his , he has had a history of peptic ulcer disease. He also has had a colonoscopy; however, they state that this was many years ago. They did not report any red blood per rectum. They also did not report any issues of nausea or vomiting that they can recall. He is currently on Nexium. PAST MEDICAL HISTORY: Coronary artery disease, cardiac arrhythmia, nephrolithiasis, sleep apnea, COPD, bilateral lower extremity edema, hypercholesterolemia, hypertension, degenerative joint disease, gastroesophageal reflux disease, diabetes, glaucoma, cataracts, hearing loss, dementia, anxiety, and depression. PAST SURGICAL HISTORY: Left hip open reduction and internal fixation, defibrillator implantation, PEG tube placement, and coronary artery bypass grafting in the 80s. ALLERGIES: PENICILLIN, CODEINE. MEDICATIONS: Albuterol 2 puffs q.6 hours p.r.n., amiodarone 200 mg daily, amlodipine 5 mg daily, digoxin 125 mcg daily, Colace 100 mg b.i.d., furosemide 40 mg daily, insulin q.a.c. and at bedtime, metoprolol 25 mg daily, mexiletine 150 mg t.i.d., Zofran 4 mg q.8 hours p.r.n., Protonix 40 mg daily, phenazopyridine 200 mg t.i.d., and potassium 20 mEq daily. SOCIAL HISTORY: Previous smoker, quit in 1987. Negative alcohol. FAMILY HISTORY: Noncontributory. REVIEW OF SYSTEMS: This is a well-nourished elderly male who does answer the majority of questions appropriately; however, is confused at times. He is not experiencing any shortness of breath or difficulty in breathing. No chest pain, palpitations or diaphoresis. No nausea or vomiting; however, he is n.p.o. and being fed through a gastrostomy tube. He has had some loose stools, which have been darker in the past several days. No red blood per rectum. No fever or chills, no recent inadvertent weight loss. All other review of systems negative. PHYSICAL EXAMINATION: VITAL SIGNS: Temperature 97.7, blood pressure 128/70, pulse 89, respirations 20, pulse ox 97% on 2 liters nasal cannula. CHEST: Few scattered rales and rhonchi bilaterally. HEART: Regular, no murmurs. EXTREMITIES: No lower extremity edema, negative Homans sign. HEENT: No scleral icterus. NECK: No cervical lymphadenopathy. ABDOMEN: Soft, nontender, nondistended. SKIN: Warm and dry. LABORATORY DATA: WBC 6.9, hemoglobin 8.4, hematocrit 28, platelets 141. BUN 22, creatinine 0.92. ASSESSMENT AND PLAN: A 78-year-old male with anemia with history of peptic ulcer disease and absence from colonoscopy for what appears to be greater than 10 to 20 years and also found to be Hemoccult positive. We will proceed with an EGD and colonoscopy on this admission. Job ID: [id number] DocumentID: [id number] Dictated Date: 07/28/2018 17:27:32 Clerical Adviser Date: 07/28/2018 18:18:45 Dictated By: ARA GRIFFITH MD
--- NOTE | 2018-07-28 18:39 | NUR ---
1/2 bottle of Mag Citrate given through PEG tube per orders. Patient tolerated well. Consent for EGD and Colonoscopy signed and placed in chart.
[2018-07-28 20:47] VITALS: BP 108/56
[2018-07-28] MEDS: ATORVASTATIN 40 MG (LIPITOR) TABLET PO SCH (20:49)
[2018-07-28] MEDS: CHOLESTYRAMINE 4 GM (QUESTRAN LITE, PREVALITE) PKT PO SCH (23:28)
[2018-07-29] MEDS: MEXILETINE 150 MG (MEXITIL) CAPSULE PO SCH ×4 (01:11→22:24)
[2018-07-29] MEDS: RT-ALBUTEROL/IPRATROPIUM 3 ML (DUONEB) VIAL INH SCH ×6 (03:05→22:20)
[2018-07-29 05:57] VITALS: BP 144/77
[2018-07-29] MEDS: DILTIAZEM 60 MG (CARDIZEM) TAB PO SCH ×3 (05:58→22:24)
[2018-07-29] MEDS: FUROSEMIDE 20 MG (LASIX) TAB PO SCH ×2 (05:58→17:59)
[2018-07-29] MEDS: KCL 20 MEQ POWDER FOR ORAL SOLUTION PEG SCH (05:58)
[2018-07-29 06:27] LABS: BASOPHILS % (AUTO) 0 % (0-10); EOSINOPHILS # (AUTO) 0.2 10^3/uL (0.0-0.3); EOSINOPHILS % (AUTO) 2 % (0-10); HEMATOCRIT 26 % (40-54); LYMPHOCYTES % (AUTO) 15 % (12-44); MEAN CORPUSCULAR HEMOGLOBIN 29 PG (25-34); MEAN CORPUSCULAR HGB CONC 31 G/DL (32-36); MEAN CORPUSCULAR VOLUME 96 FL (80-99); MEAN PLATELET VOLUME 11.7 FL (7.4-10.4); MONOCYTES # (AUTO) 0.8 X 10^3 (0.0-1.0); MONOCYTES % (AUTO) 12 % (0-12); NEUTROPHILS # (AUTO) 4.7 X 10^3 (1.8-7.8); NEUTROPHILS % (AUTO) 70 % (42-75); PLATELET COUNT 142 10^3/uL (130-400); RED BLOOD COUNT 2.72 10^6/uL (4.35-5.85); RED CELL DISTRIBUTION WIDTH 19.1 % (10.0-14.5); WHITE BLOOD COUNT 6.6 10^3/uL (4.3-11.0)
[2018-07-29 06:57] LABS: ERYTHROCYTE SEDIMENTATION RATE 126 MM/HR (0-30)
[2018-07-29 06:58] LABS: ALANINE AMINOTRANSFERASE 14 U/L (0-55); ALKALINE PHOSPHATASE 90 U/L (40-136); BILIRUBIN,TOTAL 0.5 MG/DL (0.1-1.0); BUN/CREATININE RATIO 22; CALCIUM 9.1 MG/DL (8.5-10.1); CARBON DIOXIDE 29 MMOL/L (21-32); CHLORIDE 99 MMOL/L (98-107); CREATININE SERUM 0.92 MG/DL (0.60-1.30); GFR ESTIMATED > 60; GLUCOSE 94 MG/DL (70-105); POTASSIUM 4.3 MMOL/L (3.6-5.0); SODIUM 137 MMOL/L (135-145); TOTAL PROTEIN 7.2 GM/DL (6.4-8.2)
--- NOTE | 2018-07-29 07:45 | Pulmonary Progress Note ---
Subjective Time Seen by a Provider: 07:45 Subjective/Events-last exam No complications noted. Sepsis Event Evaluation Height, Weight, BMI Height: 5'5.00" Weight: 181lbs. 5.0oz. 82.768180vt; 27.8 BMI Method:Stated Exam Exam Vital Signs Date Time Temp Pulse Resp B/P (MAP) Pulse Ox O2 Delivery O2 Flow Rate FiO2 07/29/18 05:57 97.4 90 18 144/77 (99) 93 Nasal Cannula 2.00 07/28/18 20:47 92 108/56 (73) 07/28/18 20:00 Nasal Cannula 2.00 07/28/18 15:54 97.7 89 20 128/70 (89) 97 Nasal Cannula 2.00 07/28/18 09:05 93 117/70 (86) 07/28/18 08:00 Nasal Cannula 2.00 I & O 07/29/18 07:00 Intake Total 2490 ml Output Total 650 ml Balance 1840 ml Height & Weight Height: 5'5.00" Weight: 181lbs. 5.0oz. 82.188323vy; 27.8 BMI Method:Stated General Appearance: No Apparent Distress, WD/WN, Chronically ill HEENT: TMs Normal, Pharynx Normal Neck: Full Range of Motion, Normal Inspection, Non Tender, Supple, Carotid Bruit Respiratory: Chest Non Tender, Normal Breath Sounds, No Accessory Muscle Use, No Respiratory Distress, Crackles, Wheezing Cardiovascular: Regular Rate, Rhythm, No Edema, No Gallop, No JVD, No Murmur, Normal Peripheral Pulses Extremity: Normal Capillary Refill, Normal Inspection Neurologic/Psychiatric: Alert, Oriented x3, No Motor/Sensory Deficits, Normal Mood/Affect Skin: Normal Color, Warm/Dry Lymphatic: No Adenopathy Results Lab Laboratory Tests 07/28/18 05:40 07/29/18 06:15 Assessment/Plan Assessment/Plan MRSA pneumonia with bacteremia- resolving -Vancomycin Pseudomonas UTI -Cefepime now d/c'd Debility CHF COPD with hypoxia -SVNs -Monitor VICENTE LUCIANO DO Jul 29, 2018 07:45
[2018-07-29] MEDS: PHENAZOPYRIDINE 100 MG (PYRIDIUM) TABLET PO SCH ×3 (08:00→17:59)
[2018-07-29] MEDS: MENTHOL/ZINC OXIDE (CALMOSEPTINE) 113 GM TUBE TOP SCH ×2 (08:00→22:22)
--- NOTE | 2018-07-29 08:34 | Cardiology Progress Note ---
Subjective Date Seen by Provider: Jul 29, 2018 Time Seen by Provider: 08:31 Subjective/Events-last exam Patient sitting up in chair, c/o weakness, reports dyspnea is continuing to improve. Review of Systems General: No Night Sweats; Fatigue; No Malaise HEENT: No Visual Changes, No Dysphasia, No Sore Throat Pulmonary: Dyspnea, Cough; No Pleuritic Chest Pain Cardiovascular: Edema; No: Chest Pain, Palpitations, Orthopnea Gastrointestinal: No: Nausea, Vomiting, Abdominal Pain Genitourinary: No Dysuria, No Frequency Musculoskeletal: No: neck pain, back pain Neurological: Weakness; No: Numbness, Change in speech, Confusion Objective-Cardiology Exam Last Set of Vital Signs Vital Signs 07/29/18 07/29/18 05:57 08:04 Temp 97.4 Pulse 90 Resp 18 B/P (MAP) 144/77 (99) Pulse Ox 97 O2 Delivery Nasal Cannula O2 Flow Rate 2.00 Capillary Refill : I&O Intake and Output 07/29/18 00:00 Intake Total 2569 ml Output Total 600 ml Balance 1969 ml Intake Oral 0 ml Tube Feeding 1719 ml Other 850 ml Output Urine Total 600 ml # Urine Diapers 11 # Bowel Movements 6 General: Alert, Cooperative, No Acute Distress HEENT: Atraumatic, PERRLA, EOMI, Mucous Memb Moist/[place] Neck: Supple, No JVD Lungs: Other (bilat wheezing) Heart: Regular Rate, Normal S1, Normal S2 Abdomen: Normal Bowel Sounds, Soft, No Tenderness, Other (Peg Tube in place) Extremities: No Clubbing, Other (+1 edema BLE) Skin: No Rashes Neuro: Normal Speech, Other (Confusion strength 4/5 LES 4-/5 Upper limbs) Results Lab Laboratory Tests 07/29/18 06:15 A/P-Cardiology Admission Diagnosis Debility CAD HTN Chronic atrial fibrillation Assessment/Plan Debility, reporting improvement, asking to go home. Status post respiratory failure, pneumonia, silent aspiration, on Antibiotics, followed by primary care physician Urosepsis, history of kidney stone and nephrostomy tube, on antibiotics and managed by primary care team Silent aspiration, status post feeding tube placement Coronary artery disease, history of CABG done in the remote past. Patient had a stent done in December 2001 using MultiLink 2.518 mm to the proximal right coronary artery, 2017 had a Cypher stent 3.530 mm to the proximal and mid circumflex artery. 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 Continue to follow History of congestive heart failure, reported ejection fraction 54 percent. MPI in 2013, continue to monitor Paroxysmal atrial fibrillation maintained on amiodarone, intolerant to oral anticoagulation secondary to recurrent nosebleed and anemia, Patient is maintained on Cardizem, Amiodarone,Lopressor and Digoxin, continue to monitor, no changes are recommended Patient has been maintained on mexiletine. Probably due to ventricular fibrillation and history of shock from his defibrillator, known to have [employer] Morteza ICD implanted by Dr. vidales in [place]. Continue on Mexiletine COPD, chronic dyspnea, followed by primary care physician Chronic pedal edema,continue to diurese and monitor electrolytes Diabetes mellitus, followed and managed by primary care physician Anemia- worsening. Hemoccult positive. History of gastric ulcer. Dr. Payne consulted, planning to EGD and colonoscopy later this morning. Clinical Quality Measures DVT/VTE Risk/Contraindication: Risk Factor Score Per Nursin RFS Level Per Nursing on Admit: 4+=Very High BINA RODRIGUEZ Jul 29, 2018 08:33
--- NOTE | 2018-07-29 08:38 | PM&R Progress Note ---
Subjective This was a face to face visit with the patient. Date Seen by Provider: Jul 29, 2018 Time Seen by Provider: 07:45 Subjective/Events-last exam Patient was seen in his room this AM Patient SBA for transfers Patient with Guiac positive stools Discussed case with RN Patient to have colonoscopy today HGB 8.0 AlB 3.0 BUN 20 Objective Physician Exam Last Set of Vital Signs Vital Signs Date Time Temp Pulse Resp B/P (MAP) Pulse Ox O2 Delivery O2 Flow Rate FiO2 07/29/18 08:04 97 Nasal Cannula 2.00 07/29/18 05:57 97.4 90 18 144/77 (99) Capillary Refill : I&O Intake and Output 07/29/18 00:00 Intake Total 2569 ml Output Total 600 ml Balance 1969 ml Intake Oral 0 ml Tube Feeding 1719 ml Other 850 ml Output Urine Total 600 ml # Urine Diapers 11 # Bowel Movements 6 General: Alert, Cooperative, No Acute Distress HEENT: Atraumatic, PERRLA, EOMI, Mucous Memb Moist/[place] Neck: Supple, No JVD Lungs: Other (bilat rhonchi) Heart: Regular Rate, Normal S1, Normal S2 Abdomen: Normal Bowel Sounds, Soft, No Tenderness, Other (Peg Tube in place) Extremities: No Clubbing, Other (+1 edema BLE) Skin: No Rashes Neuro: Normal Speech, Other (Confusion strength 4/5 LES 4-/5 Upper limbs) Results Lab Data Laboratory Tests 07/26/18 11:13: Glucometer 129H 07/26/18 16:05: Glucometer 131H 07/26/18 20:14: Glucometer 133H 07/27/18 06:02: Glucometer 96 07/27/18 11:09: Glucometer 138H 07/27/18 16:17: Glucometer 111H 07/27/18 21:07: Glucometer 96 07/28/18 05:40: White Blood Count 6.9, Red Blood Count 2.86L, Hemoglobin 8.4L, Hematocrit 28L, Mean Corpuscular Volume 96, Mean Corpuscular Hemoglobin 29, Mean Corpuscular Hemoglobin Concent 31L, Red Cell Distribution Width 19.0H, Platelet Count 141, Mean Platelet Volume 12.2H, Neutrophils (%) (Auto) 69, Lymphocytes (%) (Auto) 15 , Monocytes (%) (Auto) 13H, Eosinophils (%) (Auto) 2, Basophils (%) (Auto) 0, Neutrophils # (Auto) 4.8, Lymphocytes # (Auto) 1.0, Monocytes # (Auto) 0.9, Eosinophils # (Auto) 0.1, Basophils # (Auto) 0.0, Sodium Level 138, Potassium Level 4.8, Chloride Level 99, Carbon Dioxide Level 31, Anion Gap 8, Blood Urea Nitrogen 22H, Creatinine 0.92, Estimat Glomerular Filtration Rate > 60, BUN/ Creatinine Ratio 24, Glucose Level 105, Calcium Level 9.0, Corrected Calcium 9.8 , Total Bilirubin 0.4, Aspartate Amino Transf (AST/SGOT) 23, Alanine Aminotransferase (ALT/SGPT) 14, Alkaline Phosphatase 87, Total Protein 7.2, Albumin 3.0L 07/28/18 11:35: Glucometer 132H 07/28/18 16:04: Stool Occult Blood Immunoassay POSITIVEH 07/29/18 06:15: White Blood Count 6.6, Red Blood Count 2.72L, Hemoglobin 8.0L, Hematocrit 26L, Mean Corpuscular Volume 96, Mean Corpuscular Hemoglobin 29, Mean Corpuscular Hemoglobin Concent 31L, Red Cell Distribution Width 19.1H, Platelet Count 142, Mean Platelet Volume 11.7H, Neutrophils (%) (Auto) 70, Lymphocytes (%) (Auto) 15 , Monocytes (%) (Auto) 12, Eosinophils (%) (Auto) 2, Basophils (%) (Auto) 0, Neutrophils # (Auto) 4.7, Lymphocytes # (Auto) 1.0, Monocytes # (Auto) 0.8, Eosinophils # (Auto) 0.2, Basophils # (Auto) 0.0, Erythrocyte Sedimentation Rate 126H, Sodium Level 137, Potassium Level 4.3, Chloride Level 99, Carbon Dioxide Level 29, Anion Gap 9, Blood Urea Nitrogen 20H, Creatinine 0.92, Estimat Glomerular Filtration Rate > 60, BUN/Creatinine Ratio 22, Glucose Level 94, Calcium Level 9.1, Corrected Calcium 9.9, Total Bilirubin 0.5, Aspartate Amino Transf (AST/SGOT) 21, Alanine Aminotransferase (ALT/SGPT) 14, Alkaline Phosphatase 90, Total Protein 7.2, Albumin 3.0L Assessment/Plan Assessment and Plan Disuse myopathy Continue PT/OT S/P resp failure with due to MRSA pneumonia with bacteremia resolving-vancomycin Pseudomonas UTI treated with HX of Kidney stones and Nephrostomy tube A FIB controlled with med Dysphagia NPO on tube feeds Confusion Multifactorial appears to be improving ST following Guiac Positive stools with anemia to have Colonoscopy today patient with tube feeds on hold preop Plan Continue PT/OT/ST Patient to have Colonoscopy with DR Payne today re Anemia and Guiac Positive stools Team Conference 07-31-18 Last day for me here Hospitalist service to assume care as per Administrators request Co-Morbidities that are continuing to impact the rehab process: (include details ) NORRIS CARR MD Jul 29, 2018 08:38
--- NOTE | 2018-07-29 08:59 | Occupational Ther Daily Note ---
OT Current Status-Daily Note Mental Status/Objective Therapy Code Descriptions/Definitions Functional [place] Measure: 0=Not Assessed/NA 4=Minimal Assistance 1=Total Assistance 5=Supervision or Setup 2=Maximal Assistance 6=Modified [place] 3=Moderate Assistance 7=Complete [place] ADL-Treatment Pt states he does not want to shower today, but does agree to sponge bath. Pt washed face, arms, chest, abdomen, bilateral upper legs, and pieter area, but required assist for buttocks and feet. Donned pullover shirt by self after set up. Pt required assist to start pants over feet. Pt to have procedure in am, requests no pants at this time. Assist required to don socks. Pt states his usually does this for him. Pt declined to complete oral hygiene at this time. Combed hair with minimal assistance. Pt requires encouragement to attempt tasks prior to receiving assistance. Transferred to [facility] with CGA using FWW. Pt cleansed pieter area, assist to cleanse buttocks. Transferred back to recliner. Max A to shave due to increased tremors in B hands. After therapy, pt sitting in recliner with call light/phone in reach. All needs met in room. Therapy Code Descriptions/Definitions Functional [place] Measure: 0=Not Assessed/NA 4=Minimal Assistance 1=Total Assistance 5=Supervision or Setup 2=Maximal Assistance 6=Modified [place] 3=Moderate Assistance 7=Complete [place] Therapy Quality Codes: 6 Independent with activity with or without an assistive device 5 Patient requires set up or clean up by helper. Patient completes activity by themselves 4 Supervision or touching assist (CGA). [place] provide cues , steadying assist 3 The helper provides less than half the effort to complete the activity 2 The helper provides more than half the effort to complete the activity 1 Dependent. The helper does all the effort to complete an activity 7 Patient refused to complete or attempt activity 9 The patient did not perform the activity before the current illness or injury 88 Not attempted due to Medical conditions or safety concerns Bathing (FIM): 3 Bathing Location: L Arm, R Arm, L Upper Leg, R Upper Leg, Chest, Abdomen, Perineal Area Shower/Bathe Self (QC): 3 Upper Body (FIM): 5 Upper Body Dressing (QC): 5 On/Off Footwear (QC): 2 Toileting (FIM): 3 Toileting Hygiene (QC): 3 Toilet/Commode Transfer (FIM): 4 Toilet Transfer (QC): 4 OT Short Term Goals Short Term Goals Time Frame: Jul 29, 2018 Eating(FIM): 4 Grooming(FIM): 3 Upper Body Dressing(FIM): 3 Lower Body Dressing(FIM): 3 Toileting(FIM): 4 Transfers (B,C,W/C) (FIM): 5 Toilet/Commode Transfer(FIM): 4 Additional Short Term Goals: 1-Demonstrate ADL Tasks, 2-Verbalize Understanding , 3-ImproveStrength/[place] 1=Demonstrate adherence to instructed precautions during ADL tasks. 2=Patient will verbalize/demonstrate understanding of assistive devices/ modifications for ADL. 3=Patient will improve strength/tolerance for activity to enable patient to perform ADL's. OT Occupational Health Physiotherapist Goals Occupational Health Physiotherapist Goals Time Frame: Aug 19, 2018 Eating (FIM): 5 Eating (QC): 5 Groomin Oral Hygiene (QC): 4 Bathing(FIM): 3 Shower/Bathe Self (QC): 3 Upper Body Dressing(FIM): 5 Upper Body Dressing (QC): 4 Lower Body Dressing(FIM): 4 Lower Body Dressing (QC): 4 On/Off Footwear (QC): 4 Toileting(FIM): 5 Toileting Hygiene (QC): 5 Transfers (B,C,W/C) (FIM): 5 Toilet/Commode Transfer(FIM): 5 Toilet/Commode Transfer (QC): 4 Additional Goals: 1-Demonstrate ADL Tasks, 2-Verbalize Understanding, 3- ImproveStrength/[place] 1=Demonstrate adherence to instructed precautions during ADL tasks. 2=Patient will verbalize/demonstrate understanding of assistive devices/ modifications for ADL. 3=Patient will improve strength/tolerance for activity to enable patient to perform ADL's. OT Education/Plan Discharge Recommendations Plan/Recommendations: Continue POC Treatment Plan/Plan of Care Patient would benefit from OT for education, treatment and training to promote independence in ADL's, mobility, safety and/or upper extremity function for ADL' s. Plan of Care: ADL Retraining, Functional Mobility, Group Exercise/Act as Ind, UE Funct Exercise/Act Treatment Duration: Aug 19, 2018 Frequency: At least 5 of 7 days/Wk (IRF) Estimated Hrs Per Day: 1.5 hours per day Agreement: Yes Rehab Potential: Guarded Time/GCodes Start Time: 08:00 Stop Time: 09:00 Total Time Billed (hr/min): 60 Billed Treatment Time 1 visit-ADL 4 (60 min) AYLA VENEGAS Jul 29, 2018 08:58
[2018-07-29] MEDS: ASPIRIN 81 MG CHEW (CHILDREN'S ASA) PO SCH (09:00)
[2018-07-29] MEDS: DOCUSATE SODIUM 10 MG/ML 10 ML UDC (COLACE) PEG SCH ×2 (09:00→19:59)
[2018-07-29] MEDS: guaiFENesin/DM (ROBITUSSIN DM) 10 ML UDC PO SCH ×3 (09:00→19:52)
[2018-07-29] MEDS: PANTOPRAZOLE 2 MG/ML LIQUID 200 ML (PROTONIX) PEG SCH ×3 (09:00)
[2018-07-29] MEDS: LACTOBACILLUS ACIDOPHILUS (PROBIOTIC) CAPSULE PO SCH ×2 (09:00→19:59)
--- NOTE | 2018-07-29 09:54 | Cardiology Progress Note ---
Subjective Date Seen by Provider: Jul 29, 2018 Time Seen by Provider: 09:54 Subjective/Events-last exam Patient is receiving physical therapy, feeling well. Denied any chest pain Review of Systems General: No Chills, No Night Sweats, No Fatigue, No Malaise, No Appetite, No Other HEENT: No Head Aches, No Visual Changes, No Eye Pain, No Ear Pain, No Dysphasia , No Sinus Congestion, No Post Nasal Drip, No Sore Throat, No Other Pulmonary: No Dyspnea, No Cough, No Pleuritic Chest Pain, No Other Cardiovascular: No: Chest Pain, Palpitations, Orthopnea, Paroxysmal Noc. Dyspnea, Edema, Lt Headedness, Other Objective-Cardiology Exam Last Set of Vital Signs Vital Signs 07/29/18 07/29/18 05:57 08:04 Temp 97.4 Pulse 90 Resp 18 B/P (MAP) 144/77 (99) Pulse Ox 97 O2 Delivery Nasal Cannula O2 Flow Rate 2.00 Capillary Refill : I&O Intake and Output 07/29/18 00:00 Intake Total 2569 ml Output Total 600 ml Balance 1969 ml Intake Oral 0 ml Tube Feeding 1719 ml Other 850 ml Output Urine Total 600 ml # Urine Diapers 11 # Bowel Movements 6 General: Alert, Cooperative, No Acute Distress HEENT: Atraumatic, PERRLA, EOMI, Mucous Memb Moist/[place] Neck: Supple, No JVD Lungs: Other Heart: Regular Rate, Normal S1, Normal S2 Abdomen: Normal Bowel Sounds, Soft, No Tenderness, Other (Peg Tube in place) Extremities: No Clubbing, Other (+1 edema BLE) Skin: No Rashes Neuro: Normal Speech, Other (Confusion strength 4/5 LES 4-/5 Upper limbs) Results Lab Laboratory Tests 07/29/18 06:15 A/P-Cardiology Admission Diagnosis Debility CAD HTN Chronic atrial fibrillation Assessment/Plan Debility, reporting improvement, asking to go home. Status post respiratory failure, pneumonia, silent aspiration, on Antibiotics, followed by primary care physician Urosepsis, history of kidney stone and nephrostomy tube, on antibiotics and managed by primary care team Silent aspiration, status post feeding tube placement Coronary artery disease, history of CABG done in the remote past. Patient had a stent done in December 2001 using MultiLink 2.518 mm to the proximal right coronary artery, 2017 had a Cypher stent 3.530 mm to the proximal and mid circumflex artery. Has been followed and managed by primary refuse collector Dr. Mendez in [place]. Continue to follow History of congestive heart failure, reported ejection fraction 54 percent. MPI in 2013, continue to monitor Paroxysmal atrial fibrillation maintained on amiodarone, intolerant to oral anticoagulation secondary to recurrent nosebleed and anemia, Patient is maintained on Cardizem, Amiodarone,Lopressor and Digoxin, continue to monitor, no changes are recommended Patient has been maintained on mexiletine. Probably due to ventricular fibrillation and history of shock from his defibrillator, known to have [employer] Morteza ICD implanted by Dr. vidales in [place]. Continue on Mexiletine COPD, chronic dyspnea, followed by primary care physician Chronic pedal edema,continue to diurese and monitor electrolytes Diabetes mellitus, followed and managed by primary care physician Anemia- worsening. Hemoccult positive. History of gastric ulcer. Dr. Payne consulted, planning to EGD and colonoscopy later this morning. Clinical Quality Measures DVT/VTE Risk/Contraindication: Risk Factor Score Per Nursin RFS Level Per Nursing on Admit: 4+=Very High JOHN ALFARO MD Jul 29, 2018 9:54 am
--- NOTE | 2018-07-29 10:00 | Conscious Sedation/ASA ---
Conscious Sedation Pre-Proced Time 09:00 ASA Score 3 For ASA 3 and 4: Consider anesthesia and medical clearance. Also, for patients with a history of failed moderate sedation consider anesthesia. Airway Lungs Heart ASA score ASA 1: a normal healthy patient ASA 2: a patient with a mild systemic disease (mid diabetes, controlled hypertension, obesity ASA 3: a patient with a severe systemic disease that limits activity (angina , COPD, prior Myocardial infarction) ASA 4: a patient with an incapacitating disease that is a constant threat to life (CHF, renal failure) ASA 5: a moribund patient not expected to survive 24 hrs. (ruptured aneurysm) ASA 6: a declared brain patient whose organs are being harvested. For emergent operations, add the letter E after the classification Mallampati Classification Grade 3 Sedation Plan Analgesia, Amnesia, Plan communicated to team members, Discussed options with patient/fam, Discussed risks with patient/fam The patient is an appropriate candidate to undergo the planned procedure, sedation, and anesthesia. The patient immediately re-assessed prior to indication. ARA GRIFFITH MD Jul 29, 2018 10:00
--- NOTE | 2018-07-29 10:02 | Progress Note-Pre Operative ---
Pre-Operative Progress Note H&P Reviewed The H&P was reviewed, patient examined and no changes noted. Date Seen by Provider: Jul 29, 2018 Time Seen by Provider: 09:00 Date H&P Reviewed: Jul 29, 2018 Time H&P Reviewed: 09:00 Pre-Operative Diagnosis: anemia ARA GRIFFITH MD Jul 29, 2018 10:02
--- NOTE | 2018-07-29 10:29 | Physical Therapy Daily Note ---
PT Daily Note-Current Subjective Pt. in room with . states he will have a scope this morning . Pt. agrees to Rx. Repeats that he wants to go home. Pain Location: No Pain Reported Mental Status Patient Orientation: Person, Place Attachments: Oxygen, PEG Tube Transfers Therapy Code Descriptions/Definitions Functional [place] Measure: 0=Not Assessed/NA 4=Minimal Assistance 1=Total Assistance 5=Supervision or Setup 2=Maximal Assistance 6=Modified [place] 3=Moderate Assistance 7=Complete [place] Therapy Quality Codes: 6 Independent with activity with or without an assistive device 5 Patient requires set up or clean up by helper. Patient completes activity by themselves 4 Supervision or touching assist (CGA). [place] provide cues , steadying assist 3 The helper provides less than half the effort to complete the activity 2 The helper provides more than half the effort to complete the activity 1 Dependent. The helper does all the effort to complete an activity 7 Patient refused to complete or attempt activity 9 The patient did not perform the activity before the current illness or injury 88 Not attempted due to Medical conditions or safety concerns Transfers (B, C, W/C) (FIM): 5 Scootin Rollin Supine to/from Sit: 6 Sit to/from Stand: 5 Bed to/from Chair: 5 Gait Training Does the Patient Walk?: Yes Gait (FIM): 2 Distance (FIM): 7=429-66 ft (80,100,50) Gait Level of Assist: 4 Gait Persons Needed: 1 Gait Assistive Device: FWW feet shuffle against each other , pt. instructed to attempt to abduct but unable to. No LOB, pt. sits without notice and needs w/c follow up as well as assist for O2. Wheelchair Training Does the Pt Use a Wheelchair?: Yes Wheelchair (FIM): 5 Wheelchair Distance: 3=150 ft Wheelchair Level of Assist: 5 Type of Wheelchair: Manual needs reminded occas to lock brakes Exercises Supine Ex: Bridging, Ankle pumps, Quad Set, Rolling, Glut sets, Heel Slides, Short Arc Quads, Scooting, Straight leg raise, Hip abd/add Supine Reps: 15 Seated Therapy Exercises: Ankle pumps, Sit to stand, Long arc quads, Hip flexion, Hip abd/add Seated Reps: 15 Standing: Hip Abduction, Heel/toe raises, Marching Standing Reps: 12 NuStep Minutes: 10 NuStep Workload: 1 Treatments discussed home situation and safety with and pt. 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 Assessment Current Status: Good Progress possibly at PLOF PT Short Term Goals Short Term Goals Time Frame: Jul 29, 2018 Transfers (B,C,W/C) (FIM): 5 Gait (FIM): 2 Distance (FIM): 1=up to 49 ft Gait Assistive Device: FWW Wheelchair Distance: 30' PT Jail Goals Jail Goals PT Jail Goals Time Frame: Aug 12, 2018 Transfers (B,C,W/C) (FIM): 6 Sit to Lying (QC): 6 Lying-Sitting on Side/Bed(QC): 6 Sit to Stand (QC): 6 Rollin Roll Left to Right (QC): 6 Chair/[id number] Xfer(QC): 6 Car Transfer (QC): 5 Does the Patient Walk: Yes Gait (FIM): 5 (household) Gait distance (FIM): 8=569-09 ft Walk 10 feet (QC): 6 Walk 10ft-Uneven Surface(QC): 6 Walk 50ft with 2 Turns (QC): 6 Walk 150 ft (QC): 88 Gait Level of Assist: 6 Gait Assistive Device: FWW Does the Pt use WC or Scooter?: Yes Wheelchair (FIM): 6 Wheelchair distance (FIM): 3=150 ft Wheel 50 feet with 2 turns (QC: 6 Stairs (FIM): 88 1 Step (curb) (QC): 88 4 Steps (QC): 88 12 Steps (QC): 88 Picking up an Object (QC): 88 PT Plan Treatment/Plan Treatment Plan: Continue Plan of Care Treatment Plan: Bed Mobility, Education, Functional Activity [place], Functional Strength, Group Therapy, Gait, Safety, Therapeutic Exercise, Transfers Treatment Duration: Aug 12, 2018 Frequency: At least 5 of 7 days/Wk (IRF) Estimated Hrs Per Day: 1.5 hours per day Patient and/or Family Agrees t: Yes Safety Risks/Education Patient Education: Gait Training, Transfer Techniques, Correct Positioning, W/ C Management, Disease Process, Safety Issues Teaching Recipient: Patient Teaching Methods: Demonstration, Discussion Response to Teaching: Verbalize Understanding, Return Demonstration, Reinforcement Needed Time/GCodes Time In: 900 Time Out: 1030 Total Billed Treatment Time: 90 Total Billed Treatment 1,GT25m,FA30m,EX35m G Codes Necessary: TOM Stapleton NURSE PRACTITIONER HOME ASSESSMENTS Jul 29, 2018 10:29
[2018-07-29] MEDS: CHOLESTYRAMINE 4 GM (QUESTRAN LITE, PREVALITE) PKT PO SCH ×2 (10:49→23:30)
--- NOTE | 2018-07-29 11:48 | NUR ---
PT LEAVING UNIT VIA WC ACCOMPANIED BY ENDO STAFF, WILL WAIT FOR PT TO RETURN TO UNIT.
[2018-07-29] MEDS ORDERED: NS IV 500 ML 500 ML ONE (11:54)
[2018-07-29] MEDS ORDERED: fentaNYL INJECTION 100 MCG/2 ML AMP ONE (11:55)
[2018-07-29] MEDS ORDERED: MIDAZOLAM 2 MG/2 ML (VERSED) VIAL ONE ×4 (11:55→11:56)
[2018-07-29] MEDS ORDERED: LIDOCAINE JELLY 2% 6 ML SYRINGE ONE (11:55)
[2018-07-29] MEDS ORDERED: HURRICAINE EXT TUBE (BENZOCAINE) ONE (11:56)
[2018-07-29] MEDS ORDERED: MIDAZOLAM 2 MG/2 ML (VERSED) VIAL IVP ONE (12:45)
[2018-07-29] MEDS ORDERED: fentaNYL INJECTION 100 MCG/2 ML AMP IVP ONE (12:45)
[2018-07-29] MEDS ORDERED: LIDOCAINE JELLY 2% 6 ML SYRINGE MM PRN (12:45)
[2018-07-29] MEDS ORDERED: HURRICAINE EXT TUBE (BENZOCAINE) XX PRN (12:45)
--- NOTE | 2018-07-29 13:00 | NUR ---
PT BACK TO ROOM VIA WC ACCOMPANIED BY ENDO NURSE. PT SITTING IN BEDSIDE CHAIR WITH FAMILY AT BEDSIDE. UPDATED REPORT OF PROCEDURE RECEIVED. PT DENIES C/O, CALL LIGHT WITHIN REACH, WILL CONTINUE TO MONITOR.
--- NOTE | 2018-07-29 13:18 | Progress Note-Hospitalist ---
Subjective HPI/CC On Admission Date Seen by Provider: Jul 29, 2018 Time Seen by Provider: 13:00 CC: Severe debility HPI: This is a 78-year-old white male Pending Sale To [facility] patient was admitted to inpatient rehabilitation for IV medication and severe debility resolution. He was admitted to [facility] for 11 days requiring PEG tube placement due to silent aspiration and urinary stent placement due to obstructive stone in ureter and maintained on antibiotic regimen with aggressive physical therapy. I reviewed old records and culture results from infectious disease and reviewed current lab results along with vital signs. He is sitting up in chair drowsy but oriented 3 but appears to be severely chronically ill. Her goal is to return to independent ADL function along with completion of IV antibiotics. Subjective/Events-last exam Patient doing well EGD and colonoscopy revealed no source of bleeding Proton pump inhibitor maintained No pain is reported Cough is still present Aspiration risk and remains nothing by mouth and PEG tube feedings are tolerated Review of Systems General: Fatigue Pulmonary: Cough Objective Exam Vital Signs Vital Signs Date Time Temp Pulse Resp B/P (MAP) Pulse Ox O2 Delivery O2 Flow Rate FiO2 07/29/18 13:52 95 Nasal Cannula 2.00 07/29/18 13:30 81 133/69 (90) 07/29/18 05:57 97.4 18 Capillary Refill : General Appearance: No Apparent Distress, WD/WN Respiratory: Chest Non Tender, No Accessory Muscle Use, No Respiratory Distress , Crackles, Decreased Breath Sounds, Wheezing Cardiovascular: Regular Rate, Rhythm, No Edema, No Gallop, No JVD, No Murmur, Normal Peripheral Pulses Neurologic/Psychiatric: Alert, Oriented x3, No Motor/Sensory Deficits, Normal Mood/Affect Results/Procedures Lab Laboratory Tests 07/29/18 06:15 Patient resulted labs reviewed. Assessment/Plan Assessment and Plan Assess & Plan/Chief Complaint Assessment: Anemia with presumed GI bleed with hemoccult positive and Dr Payne consult for EGD/Colon tomorrow MRSA pneumonia Pseudomonas UTI Severe debilitated state CAD previous bypass graft ICD defibrillator in place Presbycusis Sleep apnea Chronic respiratory failure Plan: Scopes reviewed Hold ASA, DC accuchecks PEG tube feedings Speech therapy PT/OT Long recovery expected Consult Dr Fonseca is appreciated Consult Dr Demetrice Payne is appreciated Diagnosis/Problems Diagnosis/Problems (1) GI bleed Status: Acute Qualifiers: GI bleed type/associated pathology: unspecified gastrointestinal hemorrhage type Qualified Codes: K92.2 - Gastrointestinal hemorrhage, unspecified (2) MRSA pneumonia Status: Acute Qualifiers: Laterality: unspecified laterality Lung location: unspecified part of lung Qualified Codes: J15.212 - Pneumonia due to methicillin resistant Staphylococcus aureus (3) Pseudomonas urinary tract infection Status: Acute (4) Debility Status: Acute (5) Pyelonephritis Status: Acute (6) Renal calculus, left Status: Acute (7) Acute renal insufficiency Status: Resolved Resolution Date/Time: 06/16/18 @ 17:54 (8) Diabetes mellitus, type 2 Status: Chronic Qualifiers: Diabetes mellitus predatory animal exterminator insulin use: with predatory animal exterminator use Diabetes mellitus complication status: with circulatory complication Diabetes mellitus complication detail: with other circulatory complications Qualified Codes: E11.59 - Type 2 diabetes mellitus with other circulatory complications; Z79.4 - alf (current) use of insulin (9) Congestive heart failure Status: Chronic Qualifiers: Heart failure type: unspecified (10) COPD (chronic obstructive pulmonary disease) Status: Chronic Qualifiers: COPD type: unspecified COPD Qualified Codes: J44.9 - Chronic obstructive pulmonary disease, unspecified (11) Paroxysmal atrial fibrillation Status: Chronic (12) CAD (coronary artery disease) Status: Chronic Qualifiers: Coronary Disease-Associated Artery/Lesion type: [place] artery [place] vs. transplanted heart: [place] heart Associated angina: without angina Qualified Codes: I25.10 - Atherosclerotic heart disease of [place] coronary artery without angina pectoris (13) ICD (implantable cardioverter-defibrillator) in place Status: Chronic (14) Melena Status: Acute (15) Diarrhea Status: Acute Qualifiers: Diarrhea type: unspecified type Qualified Codes: R19.7 - Diarrhea, unspecified (16) Anemia Status: Acute Qualifiers: Anemia type: iron deficiency Iron deficiency anemia type: chronic blood loss Qualified Codes: D50.0 - Iron deficiency anemia secondary to blood loss ( chronic) Clinical Quality Measures DVT/VTE Risk/Contraindication: Risk Factor Score Per Nursin RFS Level Per Nursing on Admit: 4+=Very High BRIGITTE LEMA DO Jul 29, 2018 13:18
[2018-07-29 13:30] VITALS: BP 133/69
[2018-07-29] MEDS ORDERED: NS IV 500 ML 500 ML IV ONE (13:30)
[2018-07-29] MEDS: meTOprolol TARTRATE 25 MG (LOPRESSOR) TABLET PO SCH ×2 (13:34→19:52)
[2018-07-29] MEDS: DIGOXIN 0.125 MG (LANOXIN) TAB PO SCH (13:34)
[2018-07-29] MEDS: AMIODARONE 200 MG (CORDARONE) TAB PO SCH (13:34)
--- NOTE | 2018-07-29 14:28 | Speech Therapy Daily Note ---
Speech Daily Progress Note Subjective Date Seen by Provider: Jul 29, 2018 Time Seen by Provider: 00:30 Patient was taking a nap in his recliner when I arrived for therapy. Objective OME and memory exercises completed with 80% accuracy given minimal verbal cues. Treatment Plan Continue Plan of Care Communication Comprehension: 2 Expression: 2 Social Cognition Social Interaction: 2 Problem Solvin Memory: 2 Speech Short Term Goals Short Term Goals Short Term Goals 1) Patient will be able to recall new information with 80% or greater given minimal cues. 2) Patient will be able to name items/pictures presented with 80% or greater given minimal cues. 3) Patient will utilize compensatory strategies for safety within his room with 80% or greater given minimal cues. 4) Patient will complete pharyngeal exercises 5x/week in order to return to PO status. 5) Patient will tolerate trials of least restrictive diet level without s/s of aspiration. Speech Marketing Proposal Coordinator Goals Marketing Proposal Coordinator Goals 1) Patient will improve memory, problem solving and auditory processing in order to return safely home. 2) Patient will demonstrate a safe swallow function for oral intake for maintaining nutrition/hydration. Speech-Plan Patient/Family Goals Patient/Family Goals: Patient plans to return home with his and caregiver post rehab. Treatment Plan Speech Therapy Treatment Plan: Continue Plan of Care Patient is progressing with skilled ST services. He had a colonoscopy procedure completed today. Treatment Duration: Aug 02, 2018 Frequency: 5 times per week Estimated Hrs Per Day: .5 hour per day Rehab Potential: Guarded Barriers to Learning: Patient has decreased memory and problem solving deficits. Pt/Family Agrees to Plan: Yes Safety Risks/Education Teaching Recipient: Patient, Significant Other Teaching Methods: Discussion Response to Teaching: Verbalize Understanding Education Topics Provided: Safety and reason for NPO status. Time Speech Therapy Time In: 11:30 Speech Therapy Time Out: 11:50 Total Billed Time: 20 Billed Treatment Time 1. SLTS, 1, DYST No Patient was seen from 14:00 to 14:10 for 10 additional minutes due to colonoscopy procedure. JULIA WOODARD Jul 29, 2018 14:28
--- NOTE | 2018-07-29 14:38 | NUR ---
INTERNAL SECURITY MANAGER received notification from therapy that patient's has requested no therapies for patient, INTERNAL SECURITY MANAGER met with patient's ; however, she expressed a desire for all therapies in order to return patient to baseline functioning. Status will be reevaluated at Team Conference on Sunday.
[2018-07-29 15:55] VITALS: BP 123/74
[2018-07-29] MEDS: VANCOMYCIN INJECTION 1,500 MG in NS IV 500 ML 500 ML IV SCH (17:59)
--- NOTE | 2018-07-29 19:22 | NUR ---
report received from CORTNEY Cohen RN, assume care of pt
[2018-07-29 19:50] VITALS: BP 116/87
[2018-07-29] MEDS: ATORVASTATIN 40 MG (LIPITOR) TABLET PO SCH (19:52)
--- NOTE | 2018-07-29 20:00 | NUR ---
assessments & interventions completed, see assessments & interventions, hs meds given early due to Questran due to 2300, colace held due to loose stools
--- NOTE | 2018-07-29 22:00 | NUR ---
meds given crushed in water per peg tube, gastric residual 3ml, jevity 1.5 1 can given per peg tube, mexiletine given early due to Questran due at 2300
[2018-07-29 22:20] VITALS: BP 97/50
--- NOTE | 2018-07-30 02:00 | NUR ---
gastric residual 3ml jevity 1.5 1 can given per g-tube
[2018-07-30] MEDS: RT-ALBUTEROL/IPRATROPIUM 3 ML (DUONEB) VIAL INH SCH ×4 (02:50→14:04)
[2018-07-30 06:00] VITALS: BP 107/71
--- NOTE | 2018-07-30 06:00 | NUR ---
1.5 jevity 1 can given per g-tube
[2018-07-30] MEDS: FUROSEMIDE 20 MG (LASIX) TAB PO SCH ×2 (06:07→16:19)
[2018-07-30] MEDS: KCL 20 MEQ POWDER FOR ORAL SOLUTION PEG SCH (06:07)
[2018-07-30] MEDS: DILTIAZEM 60 MG (CARDIZEM) TAB PO SCH ×3 (06:07→22:03)
--- NOTE | 2018-07-30 07:13 | NUR ---
report given to SIGRID ROSS
[2018-07-30] MEDS: guaiFENesin/DM (ROBITUSSIN DM) 10 ML UDC PO SCH ×3 (08:10→20:24)
[2018-07-30] MEDS: MENTHOL/ZINC OXIDE (CALMOSEPTINE) 113 GM TUBE TOP SCH ×2 (08:12→20:25)
[2018-07-30] MEDS: DIGOXIN 0.125 MG (LANOXIN) TAB PO SCH (08:12)
[2018-07-30] MEDS: MEXILETINE 150 MG (MEXITIL) CAPSULE PO SCH ×2 (08:12→16:19)
[2018-07-30] MEDS: PHENAZOPYRIDINE 100 MG (PYRIDIUM) TABLET PO SCH ×3 (08:12→16:19)
[2018-07-30] MEDS: LACTOBACILLUS ACIDOPHILUS (PROBIOTIC) CAPSULE PO SCH ×2 (08:12→20:24)
[2018-07-30] MEDS: ASPIRIN 81 MG CHEW (CHILDREN'S ASA) PO SCH (08:12)
[2018-07-30] MEDS: DOCUSATE SODIUM 10 MG/ML 10 ML UDC (COLACE) PEG SCH ×2 (08:13→20:24)
[2018-07-30] MEDS: PANTOPRAZOLE 2 MG/ML LIQUID 200 ML (PROTONIX) PEG SCH ×3 (08:13)
[2018-07-30] MEDS: CHOLESTYRAMINE 4 GM (QUESTRAN LITE, PREVALITE) PKT PO SCH ×2 (08:13→22:57)
[2018-07-30] MEDS: meTOprolol TARTRATE 25 MG (LOPRESSOR) TABLET PO SCH ×2 (08:13→20:24)
[2018-07-30] MEDS: AMIODARONE 200 MG (CORDARONE) TAB PO SCH (08:16)
--- NOTE | 2018-07-30 10:19 | Progress Note-Post Operative ---
Post-Operative Progess Note Surgeon (s)/Bean Viner (s) Surgeon ARA GRIFFITH MD Bean Viner: none Pre-Operative Diagnosis anemia Post-Operative Diagnosis reflux esophagits(stage 2), moderate diffuse gastritis, no active bleed. mild chronic stage 2 ext and int hemorrhoids, mild-mod sigmoid diverticulosis. Procedure & Operative Findings Date of Procedure 07/30/18 Procedure Performed/Findings EGD with bx. Colonoscopy. Anesthesia Type CS Estimated Blood Loss Estimated blood loss (mL): minimal Specimens/Packing Specimens Removed GE jxn, antrum ARA GRIFFITH MD Jul 30, 2018 10:19
--- NOTE | 2018-07-30 11:19 | OPERATIVE REPORT ---
DATE OF SERVICE: 07/29/2018 ATTENDING PRIMARY CARE PHYSICIAN: Dr. Ybarra. CONSULTING PHYSICIAN: Dr. Flores. PREOPERATIVE DIAGNOSES: Anemia with history of peptic ulcer disease and Hemoccult positive stools. POSTOPERATIVE DIAGNOSES: Reflux esophagitis stage II, no hiatal hernia, moderate gastritis. No formal ulcerations or bleeding. Mild stage II chronic external and internal hemorrhoids, mild to moderate sigmoid diverticulosis. PROCEDURE: EGD with biopsy, colonoscopy. SURGEON: Ara Payne MD ANESTHESIA: Conscious sedation. ESTIMATED BLOOD LOSS: Minimal. FINDINGS: EGD, reflux esophagitis stage II, no significant hiatal hernia. Moderate severity gastritis which was diffuse with no formal ulcerations or polyps or any bleeding. Pylorus and duodenum appeared normal. Colonoscopy, chronic stage II external and internal hemorrhoids, not actively edematous nor inflamed and no bleeding. Prostate gland was palpable and appeared to be normal. There was mild to moderate sigmoid diverticulosis with no signs of inflammation or active bleeding. DISPOSITION: The patient tolerated the procedure well. The patient is a 78-year-old male with an extensive past medical history and severe debility. He was admitted to [facility] for 11 days due to aspiration pneumonia as well as placement of a urinary stent for obstructive uropathy. He was also on aggressive antibiotic therapy. Due to his aspiration, a percutaneous gastrostomy tube was placed and he has been receiving alimentation through this modality. He was transferred to [facility] to be closer to home. He is improving; however, his hemoglobin has slowly been trending downward from initial 11.1 to 8.4 over three days. His stools have been dark and he did have a Hemoccult positive stool. Upon further questioning with the patient and his , he has a history of peptic ulcer disease and has not had a colonoscopy for greater than 10 to 20 years. DESCRIPTION OF PROCEDURE: The patient was brought to the endoscopy suite, laid in the left lateral decubitus position with head slightly elevated. After adequate IV pain and sedating medications and conscious sedation anesthesia, the mouthpiece was applied. The endoscope was placed in the mouth, visualizing the pharynx and hypopharyngeal region. Vocal cords, epiglottis and vallecula identified and appeared to be normal. The endoscope was then gently intubated at the esophageal opening and esophagus insufflated. The endoscope was then advanced to the first, second and third portions of the esophagus at the level of the GE junction, a reflux esophagitis stage II identified. There were no ulcers or strictures identified in this region. A biopsy was taken using forceps with visualization of good hemostasis. The endoscope was then easily advanced into the stomach. The endoscope retroflexed visualizing no significant hiatal hernia. A moderate severity diffuse gastritis was noted throughout the stomach including around the gastrostomy tube site. There were no formal ulcerations or active bleeding identified. A biopsy was taken of the antrum with forceps to rule out H. pylori with visualization of good hemostasis. The endoscope was then advanced to the pylorus and the first and second portions of the duodenum, which appeared normal with no active bleeding sources and no distal obstructions. The endoscope was then slowly withdrawn while taking a second look and suctioning of residual air with no additional findings. The patient tolerated this portion of the procedure well. We feel that the anemia is most likely due to stress-induced gastritis and we will recommend changing his proton pump inhibitor to Protonix 40 mg daily. Under the same anesthesia, we then proceeded with the colonoscopy portion of the procedure. A digital rectal examination was performed, which revealed mild chronic stage II external and internal hemorrhoids, not actively edematous nor inflamed and no active bleeding. Normal sphincter tone was felt and there were no palpable masses. Prostate gland was palpable and appeared to be normal. The endoscope was then intubated into the anus and rectum gently insufflated. The endoscope was then advanced through the valves of Peterson in the rectum with no polyps or any neoplasms identified. We then proceeded through the sigmoid colon where a mild to moderate sigmoid diverticulosis was identified. There were no signs of inflammation as well as no active bleeding source. The endoscope was then advanced to the remainder of the descending, transverse and ascending colon to the cecum. These segments were normal. There were no bleeding sources identified as well as no polyps or any neoplasms. The endoscope was then slowly withdrawn with taking a second look and suctioning of residual air with no additional findings. The patient tolerated the procedure well. We will recommend continued medical management with a high fiber diet with at least 30 grams of fiber per day as well as copious amounts of water to promote soft stools on a daily basis. Job ID: [id number] DocumentID: [id number] Dictated Date: 07/30/2018 10:19:12 Temperer Date: 07/30/2018 11:19:22 Dictated By: ARA PAYNE MD
--- NOTE | 2018-07-30 12:07 | Occupational Ther Daily Note ---
OT Current Status-Daily Note Subjective Pt sitting in chair, agrees to therapy. Pt has no c/o pain. Mental Status/Objective Therapy Code Descriptions/Definitions Functional Kings Measure: 0=Not Assessed/NA 4=Minimal Assistance 1=Total Assistance 5=Supervision or Setup 2=Maximal Assistance 6=Modified Kings 3=Moderate Assistance 7=Complete Kings ADL-Treatment Pt declined shower today, but agrees to sponge bath. Pt doffed shirt with SBA. Pt washed bilateral UE, chest, and abdomen with SBA and increased time, cues to wash all areas. Pt washed bilateral upper legs with verbal cues for completion. Assist required for bilateral lower legs/feet and buttocks. Pt donned pullover shirt with SBA. Able to thread bilateral LE into pant legs. Stood with minimal assistance for balance during pant hike. Pt required assist to don socks and shoes, states spouse does this for him at home. Pt declined to shave today. Combed hair with mod assist. Pt practiced transfer to [facility] to increase strength and safety for transfers. Pt performed transfer bed to C x3 trials with CGA and cues for safety and hand placement. Pt fatigues during activity and requires occasional rest breaks throughout ADLs. Therapy Code Descriptions/Definitions Functional Kings Measure: 0=Not Assessed/NA 4=Minimal Assistance 1=Total Assistance 5=Supervision or Setup 2=Maximal Assistance 6=Modified Kings 3=Moderate Assistance 7=Complete Kings Therapy Quality Codes: 6 Independent with activity with or without an assistive device 5 Patient requires set up or clean up by helper. Patient completes activity by themselves 4 Supervision or touching assist (CGA). [place] provide cues , steadying assist 3 The helper provides less than half the effort to complete the activity 2 The helper provides more than half the effort to complete the activity 1 Dependent. The helper does all the effort to complete an activity 7 Patient refused to complete or attempt activity 9 The patient did not perform the activity before the current illness or injury 88 Not attempted due to Medical conditions or safety concerns Bathing (FIM): 3 Shower/Bathe Self (QC): 3 Upper Body (FIM): 5 Upper Body Dressing (QC): 4 Lower Body Dressing (FIM): 3 Toilet/Commode Transfer (FIM): 4 (CGA) Other Treatment Pt performed bilateral UE exercises to increase strength needed for ADLs and transfers. Pt performed 5 exercises x10 reps with red theraband. Pt requires multiple cues for proper exercise technique. Rest breaks between exercises. Bilateral hand veterinary technology instructor exercises x20 reps with mild resistance therapy foam. Pt completed putty activity with bilateral hands to increase veterinary technology instructor/pinch strength. Pt then removed small beads from putty to increase manipulation/coordination skills. Pt sitting in chair with needs met and chair alarm in place after session. OT Short Term Goals Short Term Goals Time Frame: Jul 29, 2018 Eating(FIM): 4 Grooming(FIM): 3 Upper Body Dressing(FIM): 3 Lower Body Dressing(FIM): 3 Toileting(FIM): 4 Transfers (B,C,W/C) (FIM): 5 Toilet/Commode Transfer(FIM): 4 Additional Short Term Goals: 1-Demonstrate ADL Tasks, 2-Verbalize Understanding , 3-ImproveStrength/[place] 1=Demonstrate adherence to instructed precautions during ADL tasks. 2=Patient will verbalize/demonstrate understanding of assistive devices/ modifications for ADL. 3=Patient will improve strength/tolerance for activity to enable patient to perform ADL's. OT Correction Goals Epoxy Coatings Installer Goals Time Frame: Aug 19, 2018 Eating (FIM): 5 Eating (QC): 5 Groomin Oral Hygiene (QC): 4 Bathing(FIM): 3 Shower/Bathe Self (QC): 3 Upper Body Dressing(FIM): 5 Upper Body Dressing (QC): 4 Lower Body Dressing(FIM): 4 Lower Body Dressing (QC): 4 On/Off Footwear (QC): 4 Toileting(FIM): 5 Toileting Hygiene (QC): 5 Transfers (B,C,W/C) (FIM): 5 Toilet/Commode Transfer(FIM): 5 Toilet/Commode Transfer (QC): 4 Additional Goals: 1-Demonstrate ADL Tasks, 2-Verbalize Understanding, 3- ImproveStrength/[place] 1=Demonstrate adherence to instructed precautions during ADL tasks. 2=Patient will verbalize/demonstrate understanding of assistive devices/ modifications for ADL. 3=Patient will improve strength/tolerance for activity to enable patient to perform ADL's. OT Education/Plan Discharge Recommendations Plan/Recommendations: Continue POC Treatment Plan/Plan of Care Patient would benefit from OT for education, treatment and training to promote independence in ADL's, mobility, safety and/or upper extremity function for ADL' s. Plan of Care: ADL Retraining, Functional Mobility, Group Exercise/Act as Ind, UE Funct Exercise/Act Treatment Duration: Aug 19, 2018 Frequency: At least 5 of 7 days/Wk (IRF) Estimated Hrs Per Day: 1.5 hours per day Agreement: Yes Rehab Potential: Guarded Time/GCodes Start Time: 11:00 Stop Time: 12:00 Total Time Billed (hr/min): 60 Billed Treatment Time 1 visit, ADLx2(35minutes), EXx2(25minutes) KLAUS MORRELL OT Jul 30, 2018 12:07
--- NOTE | 2018-07-30 12:13 | PM&R Progress Note ---
Subjective This was a face to face visit with the patient. Date Seen by Provider: Jul 30, 2018 Time Seen by Provider: 11:45 Subjective/Events-last exam Patient was seen in his room, at bedside Patient really working hard with therapy Cough and coarse breath sounds continue Completed abx for MRSA pneumonia Bowels are moving without blood Recovering from scopes which revealed no evidence of any active bleeding Maintain on proton pump inhibitor Overall feels good Bowels are moving Denies any pain PEG functioning well NPO status maintained Review of Systems General: Fatigue HEENT: Dysphasia Pulmonary: Cough Objective Physician Exam Last Set of Vital Signs Vital Signs Date Time Temp Pulse Resp B/P (MAP) Pulse Ox O2 Delivery O2 Flow Rate FiO2 07/30/18 10:29 95 Nasal Cannula 2.00 07/30/18 06:00 98.2 90 20 107/71 (83) Capillary Refill : I&O Intake and Output 07/30/18 00:00 Intake Total 2500 ml Output Total 1150 ml Balance 1350 ml Intake Oral 0 ml IV Total 500 ml Tube Feeding 1200 ml Other 800 ml Output Urine Total 1150 ml # Urine Diapers 9 # Bowel Movements 9 General: Alert, Oriented X3, Cooperative, No Acute Distress HEENT: Atraumatic, PERRLA, EOMI, Mucous Memb Moist/[place] Neck: Supple, No JVD Lungs: Other (coarse breath sounds) Heart: Regular Rate, Normal S1, Normal S2 Abdomen: Normal Bowel Sounds, Soft, No Tenderness, Other (Peg Tube in place) Extremities: No Clubbing, Other (+1 edema BLE) Skin: No Rashes Neuro: Normal Speech, Other (Confusion strength 4/5 LES 4-/5 Upper limbs) Psych/Mental Status: Mental Status NL, Mood NL, Other (subtle memory loss) Results Lab Data Laboratory Tests 07/27/18 16:17: Glucometer 111H 07/27/18 21:07: Glucometer 96 07/28/18 05:40: White Blood Count 6.9, Red Blood Count 2.86L, Hemoglobin 8.4L, Hematocrit 28L, Mean Corpuscular Volume 96, Mean Corpuscular Hemoglobin 29, Mean Corpuscular Hemoglobin Concent 31L, Red Cell Distribution Width 19.0H, Platelet Count 141, Mean Platelet Volume 12.2H, Neutrophils (%) (Auto) 69, Lymphocytes (%) (Auto) 15 , Monocytes (%) (Auto) 13H, Eosinophils (%) (Auto) 2, Basophils (%) (Auto) 0, Neutrophils # (Auto) 4.8, Lymphocytes # (Auto) 1.0, Monocytes # (Auto) 0.9, Eosinophils # (Auto) 0.1, Basophils # (Auto) 0.0, Sodium Level 138, Potassium Level 4.8, Chloride Level 99, Carbon Dioxide Level 31, Anion Gap 8, Blood Urea Nitrogen 22H, Creatinine 0.92, Estimat Glomerular Filtration Rate > 60, BUN/ Creatinine Ratio 24, Glucose Level 105, Calcium Level 9.0, Corrected Calcium 9.8 , Total Bilirubin 0.4, Aspartate Amino Transf (AST/SGOT) 23, Alanine Aminotransferase (ALT/SGPT) 14, Alkaline Phosphatase 87, Total Protein 7.2, Albumin 3.0L 07/28/18 11:35: Glucometer 132H 07/28/18 16:04: Stool Occult Blood Immunoassay POSITIVEH 07/29/18 06:15: White Blood Count 6.6, Red Blood Count 2.72L, Hemoglobin 8.0L, Hematocrit 26L, Mean Corpuscular Volume 96, Mean Corpuscular Hemoglobin 29, Mean Corpuscular Hemoglobin Concent 31L, Red Cell Distribution Width 19.1H, Platelet Count 142, Mean Platelet Volume 11.7H, Neutrophils (%) (Auto) 70, Lymphocytes (%) (Auto) 15 , Monocytes (%) (Auto) 12, Eosinophils (%) (Auto) 2, Basophils (%) (Auto) 0, Neutrophils # (Auto) 4.7, Lymphocytes # (Auto) 1.0, Monocytes # (Auto) 0.8, Eosinophils # (Auto) 0.2, Basophils # (Auto) 0.0, Erythrocyte Sedimentation Rate 126H, Sodium Level 137, Potassium Level 4.3, Chloride Level 99, Carbon Dioxide Level 29, Anion Gap 9, Blood Urea Nitrogen 20H, Creatinine 0.92, Estimat Glomerular Filtration Rate > 60, BUN/Creatinine Ratio 22, Glucose Level 94, Calcium Level 9.1, Corrected Calcium 9.9, Iron Level 50, Total Bilirubin 0.5 , Aspartate Amino Transf (AST/SGOT) 21, Alanine Aminotransferase (ALT/SGPT) 14, Alkaline Phosphatase 90, Total Protein 7.2, Albumin 3.0L 07/29/18 11:01: Glucometer 101 Current Funtional Status Participating in therapy Mostly wheelchair-bound Overall improving enough to be discharged on home health as long as 2 feedings can be arranged Denies any pain Reviewed physical therapy and occupational therapy notes Progress Toward Rehab Goals Discharge home on home health PEG tube feedings will be provided by caregiver once education completed Assessment/Plan Assessment and Plan (1) Debility Status: Acute (2) GI bleed Qualifiers: Qualified Codes: K92.2 - Gastrointestinal hemorrhage, unspecified Status: Acute (3) MRSA pneumonia Qualifiers: Qualified Codes: J15.212 - Pneumonia due to methicillin resistant Staphylococcus aureus Status: Resolved (4) Pseudomonas urinary tract infection Status: Acute (5) Pyelonephritis Status: Resolved (6) Renal calculus, left Status: Resolved (7) Acute renal insufficiency Status: Resolved (8) Diabetes mellitus, type 2 Qualifiers: Qualified Codes: E11.59 - Type 2 diabetes mellitus with other circulatory complications; Z79.4 - [facility] (current) use of insulin Status: Chronic (9) Congestive heart failure Qualifiers: Qualified Codes: I50.9 - Heart failure, unspecified Status: Chronic (10) COPD (chronic obstructive pulmonary disease) Qualifiers: Qualified Codes: J44.9 - Chronic obstructive pulmonary disease, unspecified Status: Chronic (11) Paroxysmal atrial fibrillation Status: Chronic (12) CAD (coronary artery disease) Qualifiers: Qualified Codes: I25.10 - Atherosclerotic heart disease of [place] coronary artery without angina pectoris Status: Chronic (13) ICD (implantable cardioverter-defibrillator) in place Status: Chronic (14) Melena Status: Acute (15) Diarrhea Qualifiers: Qualified Codes: R19.7 - Diarrhea, unspecified Status: Acute (16) Anemia Qualifiers: Qualified Codes: D50.0 - Iron deficiency anemia secondary to blood loss ( chronic) Status: Acute Co-Morbidities that are continuing to impact the rehab process: (include details ) BRIGITTE LEMA DO Jul 30, 2018 12:13
--- NOTE | 2018-07-30 12:19 | Physical Therapy Daily Note ---
PT Daily Note-Current Subjective Pt in chair upon arrival. Pt agreeable to treatment. Pt denies pain. Post therapy session, pt requests urinal but then states "Nevermind, it is too late. " Mental Status Patient Orientation: Person Transfers Therapy Code Descriptions/Definitions Functional [place] Measure: 0=Not Assessed/NA 4=Minimal Assistance 1=Total Assistance 5=Supervision or Setup 2=Maximal Assistance 6=Modified [place] 3=Moderate Assistance 7=Complete [place] Therapy Quality Codes: 6 Independent with activity with or without an assistive device 5 Patient requires set up or clean up by helper. Patient completes activity by themselves 4 Supervision or touching assist (CGA). [place] provide cues , steadying assist 3 The helper provides less than half the effort to complete the activity 2 The helper provides more than half the effort to complete the activity 1 Dependent. The helper does all the effort to complete an activity 7 Patient refused to complete or attempt activity 9 The patient did not perform the activity before the current illness or injury 88 Not attempted due to Medical conditions or safety concerns Pt performed all sit-stand transfers with SBA-CGA, vc's for hand placement as needed. Gait Training Gait Assistive Device: FWW Pt amb with FWW, O2 at 2L/min, CGA and close f/u of w/c short distances of 10ft - 40ft at a time before requiring seated rest break. Total distance walked 265ft. PT tends to sit without warning, care taken to keep w/c in close proximity to pt. Pt did announce "I need to sit" approximately 75% of the time with prompting. Exercises Seated Therapy Exercises: Ankle pumps, Long arc quads, Hip flexion, Hip abd/add , Glut set Seated Reps: 20 NuStep Minutes: 10 NuStep Workload: 1 Treatments Pt wore mask outside of room, O2 at 2L/min per portable O2. Assessment Current Status: Good Progress Pt will well. Pt required frequent rest breaks during gait training. Pt required total assist changing depends post therapy session but able to stand and maintain balance as needed. Pt in bedside chair with legs elevated and floating on pillow. O2 insitu and call light in lap post therapy session. Ambu alarm activated. PT Short Term Goals Short Term Goals Time Frame: Jul 29, 2018 Transfers (B,C,W/C) (FIM): 5 Gait (FIM): 2 Distance (FIM): 1=up to 49 ft Gait Assistive Device: FWW Wheelchair Distance: 30' PT Veneer Cutter Goals Snf Goals 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 Time Frame: Aug 12, 2018 Transfers (B,C,W/C) (FIM): 6 Sit to Lying (QC): 6 Lying-Sitting on Side/Bed(QC): 6 Sit to Stand (QC): 6 Rollin Roll Left to Right (QC): 6 Chair/Ykz-ih-Qstkr Xfer(QC): 6 Car Transfer (QC): 5 Does the Patient Walk: Yes Gait (FIM): 5 (household) Gait distance (FIM): 7=165-72 ft Walk 10 feet (QC): 6 Walk 10ft-Uneven Surface(QC): 6 Walk 50ft with 2 Turns (QC): 6 Walk 150 ft (QC): 88 Gait Level of Assist: 6 Gait Assistive Device: FWW Does the Pt use WC or Scooter?: Yes Wheelchair (FIM): 6 Wheelchair distance (FIM): 3=150 ft Wheel 50 feet with 2 turns (QC: 6 Stairs (FIM): 88 1 Step (curb) (QC): 88 4 Steps (QC): 88 12 Steps (QC): 88 Picking up an Object (QC): 88 PT Plan Treatment/Plan Treatment Plan: Continue Plan of Care Treatment Plan: Bed Mobility, Education, Functional Activity [place], Functional Strength, Group Therapy, Gait, Safety, Therapeutic Exercise, Transfers Treatment Duration: Aug 12, 2018 Frequency: At least 5 of 7 days/Wk (IRF) Estimated Hrs Per Day: 1.5 hours per day Patient and/or Family Agrees t: Yes Time/GCodes Time In: 900 Time Out: 1000 Total Billed Treatment Time: 60 Total Billed Treatment 1, ther ex 30min, Gait 25min, FA 5min SANDY SAVAGE Jul 30, 2018 12:19
--- NOTE | 2018-07-30 14:22 | Therapy Group Daily Note ---
Therapy Daily Group Note Patient Education Topic Home Safety, Fall Prevention Exercises Walking Other/Notes Pt ambulated minimal assist with FWW and O2 3L NC in place to [facility] for group. Group consisted of introductions (name and home safety concerns), IDU FIM description and home safety education. Pt introduced self appropriately and actively listened to peers. Pt verbalized understanding of educational topics and was able to contribute own strategies for home safety. Pt initiated discussions and was able to contribute to peer conversations throughout group. After therapy, patient ambulated with FWW, minimal assist to room and returned to recliner with call light/phone in reach and O2 2L in place. All needs met in room. Start Time: 13:00 Stop Time: 14:00 Total Billed Treatment Time: 60 Total Billed Treatment 1 visit GRP 60 min SIGRID PUGH PT Jul 30, 2018 14:22
[2018-07-30 18:00] VITALS: BP 114/59
[2018-07-30] MEDS: ATORVASTATIN 40 MG (LIPITOR) TABLET PO SCH (20:24)
[2018-07-31] MEDS: RT-ALBUTEROL/IPRATROPIUM 3 ML (DUONEB) VIAL INH SCH ×5 (00:11→23:04)
[2018-07-31] MEDS: MEXILETINE 150 MG (MEXITIL) CAPSULE PO SCH ×4 (00:17→23:04)
[2018-07-31 06:00] VITALS: BP 114/59
[2018-07-31] MEDS: DILTIAZEM 60 MG (CARDIZEM) TAB PO SCH ×3 (06:24→21:53)
[2018-07-31] MEDS: FUROSEMIDE 20 MG (LASIX) TAB PO SCH ×2 (06:24→18:15)
[2018-07-31] MEDS: KCL 20 MEQ POWDER FOR ORAL SOLUTION PEG SCH (06:24)
--- NOTE | 2018-07-31 08:18 | Cardiology Progress Note ---
Subjective Date Seen by Provider: Jul 31, 2018 Time Seen by Provider: 08:16 Subjective/Events-last exam Patient in bed, denies any pain. Continues to complain of productive cough. Review of Systems General: No Night Sweats; Fatigue; No Malaise HEENT: No Visual Changes, No Dysphasia Pulmonary: Dyspnea, Cough Cardiovascular: No: Chest Pain, Palpitations Gastrointestinal: No: Nausea, Vomiting, Abdominal Pain Genitourinary: No Dysuria, No Frequency Musculoskeletal: No: neck pain Neurological: Weakness; No: Numbness, Change in speech, Confusion Objective-Cardiology Exam Last Set of Vital Signs Vital Signs 07/31/18 06:00 Temp 98.3 Pulse 91 Resp 20 B/P (MAP) 114/59 (77) Pulse Ox 95 O2 Delivery Nasal Cannula O2 Flow Rate 2.00 Capillary Refill : I&O Intake and Output 07/31/18 00:00 Intake Total 2530 ml Output Total 980 ml Balance 1550 ml Intake Oral 0 ml Tube Feeding 1780 ml Other 750 ml Output Urine Total 980 ml # Urine Diapers 5 # Bowel Movements 2 General: Alert, Oriented X3, Cooperative, No Acute Distress HEENT: Atraumatic, PERRLA, EOMI, Mucous Memb Moist/[place] Neck: Supple, No JVD Lungs: Other (coarse breath sounds) Heart: Regular Rate, Normal S1, Normal S2 Abdomen: Normal Bowel Sounds, Soft, No Tenderness, Other (Peg Tube in place) Extremities: No Clubbing, Other (+1 edema BLE) Skin: No Rashes Neuro: Normal Speech, Other (Confusion strength 4/5 LES 4-/5 Upper limbs) Psych/Mental Status: Mental Status NL, Mood NL, Other (subtle memory loss) A/P-Cardiology Admission Diagnosis Debility CAD HTN Chronic atrial fibrillation Assessment/Plan Debility, reporting improvement, asking to go home. Status post respiratory failure, pneumonia, silent aspiration, on Antibiotics, followed by primary care physician Urosepsis, history of kidney stone and nephrostomy tube, on antibiotics and managed by primary care team Silent aspiration, status post feeding tube placement Coronary artery disease, history of CABG done in the remote past. Patient had a stent done in December 2001 using MultiLink 2.518 mm to the proximal right coronary artery, 2017 had a Cypher stent 3.530 mm to the proximal and mid circumflex artery. Has been followed and managed by primary automotive collision estimator Dr. Mendez in [place]. Continue to follow History of congestive heart failure, reported ejection fraction 54 percent. MPI in 2013, continue to monitor Paroxysmal atrial fibrillation maintained on amiodarone, intolerant to oral anticoagulation secondary to recurrent nosebleed and anemia, Patient is maintained on Cardizem, Amiodarone,Lopressor and Digoxin, continue to monitor, no changes are recommended Patient has been maintained on mexiletine. Probably due to ventricular fibrillation and history of shock from his defibrillator, known to have [facility] ICD implanted by Dr. vidales in [place]. Continue on Mexiletine COPD, chronic dyspnea, followed by primary care physician Chronic pedal edema,continue to diurese and monitor electrolytes Diabetes mellitus, followed and managed by primary care physician Anemia- Hemoccult positive. History of gastric ulcer. Underwent EGD and colonoscopy revealing gastritis and esophagitis with no active bleed. Continue to monitor H/H. Clinical Quality Measures DVT/VTE Risk/Contraindication: Risk Factor Score Per Nursin RFS Level Per Nursing on Admit: 4+=Very High BINA RODRIGUEZ Jul 31, 2018 08:18
[2018-07-31] MEDS: AMIODARONE 200 MG (CORDARONE) TAB PO SCH (09:16)
[2018-07-31] MEDS: DIGOXIN 0.125 MG (LANOXIN) TAB PO SCH (09:16)
[2018-07-31] MEDS: LACTOBACILLUS ACIDOPHILUS (PROBIOTIC) CAPSULE PO SCH ×2 (09:16→21:53)
[2018-07-31] MEDS: ASPIRIN 81 MG CHEW (CHILDREN'S ASA) PO SCH (09:17)
[2018-07-31] MEDS: meTOprolol TARTRATE 25 MG (LOPRESSOR) TABLET PO SCH ×2 (09:17→21:53)
[2018-07-31] MEDS: PHENAZOPYRIDINE 100 MG (PYRIDIUM) TABLET PO SCH ×3 (09:18→18:15)
[2018-07-31] MEDS: guaiFENesin/DM (ROBITUSSIN DM) 10 ML UDC PO SCH ×3 (09:21→21:53)
[2018-07-31] MEDS: MENTHOL/ZINC OXIDE (CALMOSEPTINE) 113 GM TUBE TOP SCH ×2 (09:22→21:54)
[2018-07-31] MEDS: DOCUSATE SODIUM 10 MG/ML 10 ML UDC (COLACE) PEG SCH ×2 (09:22→21:54)
[2018-07-31] MEDS: PANTOPRAZOLE 2 MG/ML LIQUID 200 ML (PROTONIX) PEG SCH ×3 (09:30)
--- NOTE | 2018-07-31 10:00 | NUR ---
1000 tube feeding held D/T gastric residual greater than [address] Flores notified. No new orders rec'd.
[2018-07-31] MEDS: CHOLESTYRAMINE 4 GM (QUESTRAN LITE, PREVALITE) PKT PO SCH ×2 (10:54→23:55)
--- NOTE | 2018-07-31 10:58 | Physical Therapy Daily Note ---
PT Daily Note-Current Subjective Pt laying Supine in bed upon arrival. Pt agrees to PT but does not want to leave room. Finally does with encouragement. Pain Location: No Pain Reported Mental Status Patient Orientation: Person, Place Pt continues to demonstrate being behavioral when asked to participate in Therapy. Transfers Therapy Code Descriptions/Definitions Functional [place] Measure: 0=Not Assessed/NA 4=Minimal Assistance 1=Total Assistance 5=Supervision or Setup 2=Maximal Assistance 6=Modified [place] 3=Moderate Assistance 7=Complete [place] Therapy Quality Codes: 6 Independent with activity with or without an assistive device 5 Patient requires set up or clean up by helper. Patient completes activity by themselves 4 Supervision or touching assist (CGA). [place] provide cues , steadying assist 3 The helper provides less than half the effort to complete the activity 2 The helper provides more than half the effort to complete the activity 1 Dependent. The helper does all the effort to complete an activity 7 Patient refused to complete or attempt activity 9 The patient did not perform the activity before the current illness or injury 88 Not attempted due to Medical conditions or safety concerns Scootin Supine to/from Sit: 5 Sit to/from Stand: 4 Gait Training Does the Patient Walk?: Yes Distance (FIM): 6=329-57 ft Distance: 30', 30' Wheelchair Training Does the Pt Use a Wheelchair?: Yes Wheelchair Distance: 3=150 ft Distance: 200' Wheelchair Level of Assist: 3 Wheel 50 ft with 2 turns (QC): 3 Wheel 150 ft (QC): 3 Type of Wheelchair: Manual Pt needs assistance with turns and is not aware of surroundings. Exercises Seated Therapy Exercises: Ankle pumps, Long arc quads, Hip flexion, Kicking activity, Hip abd/add Seated Reps: 15 NuStep Minutes: 15 NuStep Workload: 4 Treatments Pt transfers from bed to standing, using FWW pt ambulates short distance in hallway before needing to sit in [facility]. Pt propels [facility] to Therapy Gym before transferring to [facility] and using for 15m at 4. Pt then transfers to chair and completes Seated Ex followed by short rest. Pt then ambulates short distance again before returning to [facility] and propelling in hallway to room. Pt resting in [facility] in room at end of tx with all needs met. Assessment Current Status: Fair Progress Pt is confused at times and does not push self to complete tasks. Pt fatigues easily. PT Short Term Goals Short Term Goals Time Frame: Jul 29, 2018 Transfers (B,C,W/C) (FIM): 5 Gait (FIM): 2 Distance (FIM): 1=up to 49 ft Gait Assistive Device: FWW Wheelchair Distance: 30' PT [place] Actor Goals Skilled Nursing Goals PT [place] Actor Goals Time Frame: Aug 12, 2018 Transfers (B,C,W/C) (FIM): 6 Sit to Lying (QC): 6 Lying-Sitting on Side/Bed(QC): 6 Sit to Stand (QC): 6 Rollin Roll Left to Right (QC): 6 Chair/Lvu-nv-Hysma Xfer(QC): 6 Car Transfer (QC): 5 Does the Patient Walk: Yes Gait (FIM): 5 (household) Gait distance (FIM): 4=437-55 ft Walk 10 feet (QC): 6 Walk 10ft-Uneven Surface(QC): 6 Walk 50ft with 2 Turns (QC): 6 Walk 150 ft (QC): 88 Gait Level of Assist: 6 Gait Assistive Device: FWW Does the Pt use WC or Scooter?: Yes Wheelchair (FIM): 6 Wheelchair distance (FIM): 3=150 ft Wheel 50 feet with 2 turns (QC: 6 Stairs (FIM): 88 1 Step (curb) (QC): 88 4 Steps (QC): 88 12 Steps (QC): 88 Picking up an Object (QC): 88 PT Plan Problem List Problem List: Activity Tolerance, Functional Strength, Safety, Balance, Gait, Transfer Treatment/Plan Treatment Plan: Continue Plan of Care Treatment Plan: Bed Mobility, Education, Functional Activity [place], Functional Strength, Group Therapy, Gait, Safety, Therapeutic Exercise, Transfers Treatment Duration: Aug 12, 2018 Frequency: At least 5 of 7 days/Wk (IRF) Estimated Hrs Per Day: 1.5 hours per day Patient and/or Family Agrees t: Yes Safety Risks/Education Patient Education: Gait Training, Transfer Techniques, Correct Positioning, Safety Issues Teaching Recipient: Patient Teaching Methods: Discussion Response to Teaching: Reinforcement Needed Time/GCodes Time In: 1330 Time Out: 1400 Total Billed Treatment Time: 30 Total Billed Treatment 1, WCH (20m), GT (10m) & EX x2 (30m) G Codes Necessary: COLTEN La [employer] INSTALLER Jul 31, 2018 10:58
--- NOTE | 2018-07-31 11:06 | PM&R Progress Note ---
Subjective This was a face to face visit with the patient. Date Seen by Provider: Jul 31, 2018 Time Seen by Provider: 10:00 Subjective/Events-last exam Patient was seen in his room with at chair side PEG tube feedings will need to be provided by caregiver and education will be arranged Cough has no significant change Bowels are moving and hopefully tube feeding change will help make that more solid Denies any pain Review of Systems General: Fatigue HEENT: Dysphasia Pulmonary: Cough Objective Physician Exam Last Set of Vital Signs Vital Signs Date Time Temp Pulse Resp B/P (MAP) Pulse Ox O2 Delivery O2 Flow Rate FiO2 07/31/18 06:00 98.3 91 20 114/59 (77) 95 Nasal Cannula 2.00 Capillary Refill : I&O Intake and Output 07/31/18 00:00 Intake Total 2530 ml Output Total 980 ml Balance 1550 ml Intake Oral 0 ml Tube Feeding 1780 ml Other 750 ml Output Urine Total 980 ml # Urine Diapers 5 # Bowel Movements 2 General: Alert, Oriented X3, Cooperative, No Acute Distress HEENT: Atraumatic, PERRLA, EOMI, Mucous Memb Moist/[place] Neck: Supple, No JVD Lungs: Other (coarse breath sounds) Heart: Regular Rate, Normal S1, Normal S2 Abdomen: Normal Bowel Sounds, Soft, No Tenderness, Other (Peg Tube in place) Extremities: No Clubbing, Other (+1 edema BLE) Skin: No Rashes Neuro: Normal Speech, Other (Confusion strength 4/5 LES 4-/5 Upper limbs) Psych/Mental Status: Mental Status NL, Mood NL, Other (subtle memory loss) Results Lab Data Laboratory Tests 07/28/18 11:35: Glucometer 132H 07/28/18 16:04: Stool Occult Blood Immunoassay POSITIVEH 07/29/18 06:15: White Blood Count 6.6, Red Blood Count 2.72L, Hemoglobin 8.0L, Hematocrit 26L, Mean Corpuscular Volume 96, Mean Corpuscular Hemoglobin 29, Mean Corpuscular Hemoglobin Concent 31L, Red Cell Distribution Width 19.1H, Platelet Count 142, Mean Platelet Volume 11.7H, Neutrophils (%) (Auto) 70, Lymphocytes (%) (Auto) 15 , Monocytes (%) (Auto) 12, Eosinophils (%) (Auto) 2, Basophils (%) (Auto) 0, Neutrophils # (Auto) 4.7, Lymphocytes # (Auto) 1.0, Monocytes # (Auto) 0.8, Eosinophils # (Auto) 0.2, Basophils # (Auto) 0.0, Erythrocyte Sedimentation Rate 126H, Sodium Level 137, Potassium Level 4.3, Chloride Level 99, Carbon Dioxide Level 29, Anion Gap 9, Blood Urea Nitrogen 20H, Creatinine 0.92, Estimat Glomerular Filtration Rate > 60, BUN/Creatinine Ratio 22, Glucose Level 94, Calcium Level 9.1, Corrected Calcium 9.9, Iron Level 50, Total Bilirubin 0.5 , Aspartate Amino Transf (AST/SGOT) 21, Alanine Aminotransferase (ALT/SGPT) 14, Alkaline Phosphatase 90, Total Protein 7.2, Albumin 3.0L 07/29/18 11:01: Glucometer 101 Current Funtional Status Reviewed physical therapy and occupational therapy and speech therapy Participating in all orders but needs cues Setting up for discharge with home health services and PEG tube feeding management by caregiver Progress Toward Rehab Goals Discharge home with home health services once PEG tube feedings can be provided by caregiver Assessment/Plan Assessment and Plan (1) Debility Status: Acute (2) GI bleed Qualifiers: Qualified Codes: K92.2 - Gastrointestinal hemorrhage, unspecified Status: Acute (3) MRSA pneumonia Qualifiers: Qualified Codes: J15.212 - Pneumonia due to methicillin resistant Staphylococcus aureus Status: Resolved (4) Pseudomonas urinary tract infection Status: Acute (5) Pyelonephritis Status: Resolved (6) Renal calculus, left Status: Resolved (7) Acute renal insufficiency Status: Resolved (8) Diabetes mellitus, type 2 Qualifiers: Qualified Codes: E11.59 - Type 2 diabetes mellitus with other circulatory complications; Z79.4 - [facility] (current[facility] use of insulin Status: Chronic (9) Congestive heart failure Qualifiers: Qualified Codes: I50.9 - Heart failure, unspecified Status: Chronic (10) COPD (chronic obstructive pulmonary disease) Qualifiers: Qualified Codes: J44.9 - Chronic obstructive pulmonary disease, unspecified Status: Chronic (11) Paroxysmal atrial fibrillation Status: Chronic (12) CAD (coronary artery disease) Qualifiers: Qualified Codes: I25.10 - Atherosclerotic heart disease of [place] coronary artery without angina pectoris Status: Chronic (13) ICD (implantable cardioverter-defibrillator) in place Status: Chronic (14) Melena Status: Acute (15) Diarrhea Qualifiers: Qualified Codes: R19.7 - Diarrhea, unspecified Status: Acute (16) Anemia Qualifiers: Qualified Codes: D50.0 - Iron deficiency anemia secondary to blood loss ( chronic) Status: Acute Co-Morbidities that are continuing to impact the rehab process: (include details ) BRIGITTE LEMA DO Jul 31, 2018 11:06
--- NOTE | 2018-07-31 11:36 | Cardiology Progress Note ---
Subjective Date Seen by Provider: Jul 31, 2018 Time Seen by Provider: 11:35 Subjective/Events-last exam Patient is sitting in a chair, feeling better, no new complaint. Review of Systems General: No Chills, No Night Sweats, No Fatigue, No Malaise, No Appetite, No Other HEENT: No Head Aches, No Visual Changes, No Eye Pain, No Ear Pain, No Dysphasia , No Sinus Congestion, No Post Nasal Drip, No Sore Throat, No Other Pulmonary: No Dyspnea, No Cough, No Pleuritic Chest Pain, No Other Cardiovascular: No: Chest Pain, Palpitations, Orthopnea, Paroxysmal Noc. Dyspnea, Edema, Lt Headedness, Other Objective-Cardiology Exam Last Set of Vital Signs Vital Signs 07/31/18 07/31/18 06:00 09:59 Temp 98.3 Pulse 91 Resp 20 B/P (MAP) 114/59 (77) Pulse Ox 95 O2 Delivery Nasal Cannula O2 Flow Rate 2.00 Capillary Refill : I&O Intake and Output 07/31/18 00:00 Intake Total 2530 ml Output Total 980 ml Balance 1550 ml Intake Oral 0 ml Tube Feeding 1780 ml Other 750 ml Output Urine Total 980 ml # Urine Diapers 5 # Bowel Movements 2 General: Alert, Oriented X3, Cooperative, No Acute Distress HEENT: Atraumatic, PERRLA, EOMI, Mucous Memb Moist/[place] Neck: Supple, No JVD Lungs: Other (coarse breath sounds) Heart: Regular Rate, Normal S1, Normal S2 Abdomen: Normal Bowel Sounds, Soft, No Tenderness, Other (Peg Tube in place) Extremities: No Clubbing, Other (+1 edema BLE) Skin: No Rashes Neuro: Normal Speech, Other (Confusion strength 4/5 LES 4-/5 Upper limbs) Psych/Mental Status: Mental Status NL, Mood NL, Other (subtle memory loss) A/P-Cardiology Admission Diagnosis Debility CAD HTN Chronic atrial fibrillation Assessment/Plan Debility, reporting improvement, asking to go home. Anemia, worsening, I will evaluate H&H Status post respiratory failure, pneumonia, silent aspiration, on Antibiotics, followed by primary care physician Urosepsis, history of kidney stone and nephrostomy tube, on antibiotics and managed by primary care team Silent aspiration, status post feeding tube placement Coronary artery disease, history of CABG done in the remote past. Patient had a stent done in December 2001 using MultiLink 2.518 mm to the proximal right coronary artery, 2017 had a Cypher stent 3.530 mm to the proximal and mid circumflex artery. Has been followed and managed by primary machine packager Dr. Mendez in [place]. Continue to follow History of congestive heart failure, reported ejection fraction 54 percent. MPI in 2013, continue to monitor Paroxysmal atrial fibrillation maintained on amiodarone, intolerant to oral anticoagulation secondary to recurrent nosebleed and anemia, Patient is maintained on Cardizem, Amiodarone,Lopressor and Digoxin, continue to monitor, no changes are recommended Patient has been maintained on mexiletine. Probably due to ventricular fibrillation and history of shock from his defibrillator, known to have [facility] ICD implanted by Dr. vidales in [place]. Continue on Mexiletine COPD, chronic dyspnea, followed by primary care physician Chronic pedal edema,continue to diurese and monitor electrolytes Diabetes mellitus, followed and managed by primary care physician Anemia- Hemoccult positive. History of gastric ulcer. Underwent EGD and colonoscopy revealing gastritis and esophagitis with no active bleed. Continue to monitor H/H. Clinical Quality Measures DVT/VTE Risk/Contraindication: Risk Factor Score Per Nursin RFS Level Per Nursing on Admit: 4+=Very High JOHN ALFARO MD Jul 31, 2018 11:36
--- NOTE | 2018-07-31 14:22 | Occupational Ther Daily Note ---
OT Current Status-Daily Note Subjective No pain reported. Appearance Pt. in chair. Declines bathing or showering. States that he is in clean clothing. Pt. had had PT earlier in day. Does reluctantly agree to work with OT. Mental Status/Objective Therapy Code Descriptions/Definitions Functional [place] Measure: 0=Not Assessed/NA 4=Minimal Assistance 1=Total Assistance 5=Supervision or Setup 2=Maximal Assistance 6=Modified [place] 3=Moderate Assistance 7=Complete [place] ADL-Treatment Therapy Code Descriptions/Definitions Functional [place] Measure: 0=Not Assessed/NA 4=Minimal Assistance 1=Total Assistance 5=Supervision or Setup 2=Maximal Assistance 6=Modified [place] 3=Moderate Assistance 7=Complete [place] Therapy Quality Codes: 6 Independent with activity with or without an assistive device 5 Patient requires set up or clean up by helper. Patient completes activity by themselves 4 Supervision or touching assist (CGA). [place] provide cues , steadying assist 3 The helper provides less than half the effort to complete the activity 2 The helper provides more than half the effort to complete the activity 1 Dependent. The helper does all the effort to complete an activity 7 Patient refused to complete or attempt activity 9 The patient did not perform the activity before the current illness or injury 88 Not attempted due to Medical conditions or safety concerns Other Treatment Pt. is seen twice this morning. Pt. agreed to self propel to therapy gym. Pt. did this with cues to propel with feet and with UE. Once pt. came to therapy gym, nursing stated that they needed to complete tube feeding for medications. Pt. was able to self propel back to room with assistance at times. Therapy session suspended at this time. After this, pt. agreed again to work with OT. Self propelled again for increased independence and strength. Spouse came with pt. at this time. Pt. had kept taking oxygen off, so OT kept it off and monitored oxygen levels. Sats at 95-98% with activity. Pt. came to dining area and rested in chair. Propelled back to room with min assist at times, but mainly cues to do for self. All needs are met in room. Education OT Patient Education: Correct positioning, Modified ADL techniques, Progress toward Goal/Update tx plan, Purpose of tx/functional activities, Reviewed precautions, Rehab process, Transfer techniques Teaching Recipient: Patient Teaching Methods: Demonstration, Discussion Response to Teaching: Verbalize Understanding, Return Demonstration OT Short Term Goals Short Term Goals Time Frame: Jul 29, 2018 Eating(FIM): 4 Grooming(FIM): 3 Upper Body Dressing(FIM): 3 Lower Body Dressing(FIM): 3 Toileting(FIM): 4 Transfers (B,C,W/C) (FIM): 5 Toilet/Commode Transfer(FIM): 4 Additional Short Term Goals: 1-Demonstrate ADL Tasks, 2-Verbalize Understanding , 3-ImproveStrength/[place] 1=Demonstrate adherence to instructed precautions during ADL tasks. 2=Patient will verbalize/demonstrate understanding of assistive devices/ modifications for ADL. 3=Patient will improve strength/tolerance for activity to enable patient to perform ADL's. OT Paste Worker Goals Retirement Goals Time Frame: Aug 19, 2018 Eating (FIM): 5 Eating (QC): 5 Groomin Oral Hygiene (QC): 4 Bathing(FIM): 3 Shower/Bathe Self (QC): 3 Upper Body Dressing(FIM): 5 Upper Body Dressing (QC): 4 Lower Body Dressing(FIM): 4 Lower Body Dressing (QC): 4 On/Off Footwear (QC): 4 Toileting(FIM): 5 Toileting Hygiene (QC): 5 Transfers (B,C,W/C) (FIM): 5 Toilet/Commode Transfer(FIM): 5 Toilet/Commode Transfer (QC): 4 Additional Goals: 1-Demonstrate ADL Tasks, 2-Verbalize Understanding, 3- ImproveStrength/[place] 1=Demonstrate adherence to instructed precautions during ADL tasks. 2=Patient will verbalize/demonstrate understanding of assistive devices/ modifications for ADL. 3=Patient will improve strength/tolerance for activity to enable patient to perform ADL's. OT Education/Plan Problem List/Assessment Assessment: Decreased Activ Tolerance, Impaired Cognition, Impaired I ADL's, Impaired Self-Care Skills Discharge Recommendations Plan/Recommendations: Continue POC Therapy D/C Recommendations: 24 hr Supervision, Home w/ Family Support, Scheduled Assistance Treatment Plan/Plan of Care Treatment,Training & Education: Yes Patient would benefit from OT for education, treatment and training to promote independence in ADL's, mobility, safety and/or upper extremity function for ADL' s. Plan of Care: ADL Retraining, Functional Mobility, Group Exercise/Act as Ind, UE Funct Exercise/Act Treatment Duration: Aug 19, 2018 Frequency: At least 5 of 7 days/Wk (IRF) Estimated Hrs Per Day: 1.5 hours per day Agreement: Yes Rehab Potential: Fair Time/GCodes Start Time: 09:00 Stop Time: 10:00 Total Time Billed (hr/min): 40 Billed Treatment Time 9657-4195 1, FA x 15minutes [id number] 1, FA x 25minutes ALFREDO STOVALL OT Jul 31, 2018 14:22
--- NOTE | 2018-07-31 14:40 | Occupational Ther Daily Note ---
OT Current Status-Daily Note Subjective Pt sitting in chair, agrees to treatment. Pt has no c/o pain. Mental Status/Objective Therapy Code Descriptions/Definitions Functional [place] Measure: 0=Not Assessed/NA 4=Minimal Assistance 1=Total Assistance 5=Supervision or Setup 2=Maximal Assistance 6=Modified [place] 3=Moderate Assistance 7=Complete [place] ADL-Treatment Therapy Code Descriptions/Definitions Functional [place] Measure: 0=Not Assessed/NA 4=Minimal Assistance 1=Total Assistance 5=Supervision or Setup 2=Maximal Assistance 6=Modified [place] 3=Moderate Assistance 7=Complete [place] Therapy Quality Codes: 6 Independent with activity with or without an assistive device 5 Patient requires set up or clean up by helper. Patient completes activity by themselves 4 Supervision or touching assist (CGA). [place] provide cues , steadying assist 3 The helper provides less than half the effort to complete the activity 2 The helper provides more than half the effort to complete the activity 1 Dependent. The helper does all the effort to complete an activity 7 Patient refused to complete or attempt activity 9 The patient did not perform the activity before the current illness or injury 88 Not attempted due to Medical conditions or safety concerns Other Treatment Pt completed bilateral UE activity to increase strength needed for ADLs and transfers. Pt performed four exercises x15 reps with dowel jame. Rest breaks between exercises. Pt is impulsive with exercise movement and requires multiple cues to perform exercises with proper technique. Bilateral hand supervisor grips exercises x20 reps with mild resistance therapy foam to increase supervisor grips strength for functional tasks. Pt completed putty activity with bilateral hands to increase strength and coordination/manipulation skills. Pt able to remove small beads from putty with increased time. Pt sitting in chair with needs met and spouse present after session. OT Short Term Goals Short Term Goals Time Frame: Jul 29, 2018 Eating(FIM): 4 Grooming(FIM): 3 Upper Body Dressing(FIM): 3 Lower Body Dressing(FIM): 3 Toileting(FIM): 4 Transfers (B,C,W/C) (FIM): 5 Toilet/Commode Transfer(FIM): 4 Additional Short Term Goals: 1-Demonstrate ADL Tasks, 2-Verbalize Understanding , 3-ImproveStrength/[place] 1=Demonstrate adherence to instructed precautions during ADL tasks. 2=Patient will verbalize/demonstrate understanding of assistive devices/ modifications for ADL. 3=Patient will improve strength/tolerance for activity to enable patient to perform ADL's. OT [facility] Goals Liaison Planner Goals Time Frame: Aug 19, 2018 Eating (FIM): 5 Eating (QC): 5 Groomin Oral Hygiene (QC): 4 Bathing(FIM): 3 Shower/Bathe Self (QC): 3 Upper Body Dressing(FIM): 5 Upper Body Dressing (QC): 4 Lower Body Dressing(FIM): 4 Lower Body Dressing (QC): 4 On/Off Footwear (QC): 4 Toileting(FIM): 5 Toileting Hygiene (QC): 5 Transfers (B,C,W/C) (FIM): 5 Toilet/Commode Transfer(FIM): 5 Toilet/Commode Transfer (QC): 4 Additional Goals: 1-Demonstrate ADL Tasks, 2-Verbalize Understanding, 3- ImproveStrength/[place] 1=Demonstrate adherence to instructed precautions during ADL tasks. 2=Patient will verbalize/demonstrate understanding of assistive devices/ modifications for ADL. 3=Patient will improve strength/tolerance for activity to enable patient to perform ADL's. OT Education/Plan Discharge Recommendations Plan/Recommendations: Continue POC Treatment Plan/Plan of Care Patient would benefit from OT for education, treatment and training to promote independence in ADL's, mobility, safety and/or upper extremity function for ADL' s. Plan of Care: ADL Retraining, Functional Mobility, Group Exercise/Act as Ind, UE Funct Exercise/Act Treatment Duration: Aug 19, 2018 Frequency: At least 5 of 7 days/Wk (IRF) Estimated Hrs Per Day: 1.5 hours per day Agreement: Yes Rehab Potential: Fair Time/GCodes Start Time: 14:00 Stop Time: 14:35 Total Time Billed (hr/min): 35 Billed Treatment Time 1 visit, EXx2(35minutes) KLAUS MORRELL OT Jul 31, 2018 14:40
[2018-07-31 15:15] VITALS: BP 149/77
--- NOTE | 2018-07-31 15:39 | Speech Therapy Daily Note ---
Speech Daily Progress Note Subjective Date Seen by Provider: Jul 31, 2018 Time Seen by Provider: 00:30 Patient and were sitting in his room resting when I arrived. Objective Patient completed pharyngeal exercises for strengthening swallow function at 80 % with min to mod verbal cues. Assessment Assessment Current Status: Fair Progress Treatment Plan Continue Plan of Care Communication Comprehension: 2 Expression: 2 Social Cognition Social Interaction: 2 Problem Solvin Memory: 2 Speech Short Term Goals Short Term Goals Short Term Goals 1) Patient will be able to recall new information with 80% or greater given minimal cues. 2) Patient will be able to name items/pictures presented with 80% or greater given minimal cues. 3) Patient will utilize compensatory strategies for safety within his room with 80% or greater given minimal cues. 4) Patient will complete pharyngeal exercises 5x/week in order to return to PO status. 5) Patient will tolerate trials of least restrictive diet level without s/s of aspiration. Speech Snf Goals Scene Painter Goals 1) Patient will improve memory, problem solving and auditory processing in order to return safely home. 2) Patient will demonstrate a safe swallow function for oral intake for maintaining nutrition/hydration. Speech-Plan Patient/Family Goals Patient/Family Goals: Patient plans to return home with his post rehab. Treatment Plan Speech Therapy Treatment Plan: Continue Plan of Care Patient is noted to be coughing much less. Treatment Duration: Aug 02, 2018 Frequency: 5 times per week Estimated Hrs Per Day: .5 hour per day Rehab Potential: Fair Barriers to Learning: Memory deficits. Pt/Family Agrees to Plan: Yes Safety Risks/Education Teaching Recipient: Patient, Significant Other Teaching Methods: Discussion Response to Teaching: Verbalize Understanding Education Topics Provided: Safety, reason for NPO Time Speech Therapy Time In: 14:35 Speech Therapy Time Out: 15:05 Total Billed Time: 30 Billed Treatment Time 1, JULIA Carter Jul 31, 2018 15:39
--- NOTE | 2018-07-31 16:30 | Physical Therapy Daily Note ---
PT Daily Note-Current Subjective Pt sitting in recliner with Sp present upon arrival. Pt is using urinal with Sp 's assistance. Pt agrees to PT. Mental Status Patient Orientation: Person, Confused, Place Attachments: Oxygen, PEG Tube Transfers Therapy Code Descriptions/Definitions Functional [place] Measure: 0=Not Assessed/NA 4=Minimal Assistance 1=Total Assistance 5=Supervision or Setup 2=Maximal Assistance 6=Modified [place] 3=Moderate Assistance 7=Complete [place] Therapy Quality Codes: 6 Independent with activity with or without an assistive device 5 Patient requires set up or clean up by helper. Patient completes activity by themselves 4 Supervision or touching assist (CGA). [place] provide cues , steadying assist 3 The helper provides less than half the effort to complete the activity 2 The helper provides more than half the effort to complete the activity 1 Dependent. The helper does all the effort to complete an activity 7 Patient refused to complete or attempt activity 9 The patient did not perform the activity before the current illness or injury 88 Not attempted due to Medical conditions or safety concerns Exercises Seated Therapy Exercises: Ankle pumps, Long arc quads, Hip flexion, Kicking activity, Hip abd/add Seated Reps: 15 (2 sets of 15 reps) Treatments Pt completes Seated Ex in recliner with a couple short rest breaks. Pt resting in recliner at end of tx with all needs met. Assessment Current Status: Fair Progress Pt is confused at times but with VC as well as Phy. Cues pt is able to complete Exercises. PT Short Term Goals Short Term Goals Time Frame: Jul 29, 2018 Transfers (B,C,W/C) (FIM): 5 Gait (FIM): 2 Distance (FIM): 1=up to 49 ft Gait Assistive Device: FWW Wheelchair Distance: 30' PT Jail Goals Insulation Sprayer Goals PT Insulation Sprayer Goals Time Frame: Aug 12, 2018 Transfers (B,C,W/C) (FIM): 6 Sit to Lying (QC): 6 Lying-Sitting on Side/Bed(QC): 6 Sit to Stand (QC): 6 Rollin Roll Left to Right (QC): 6 Chair/Xxw-tz-Wtjfe Xfer(QC): 6 Car Transfer (QC): 5 Does the Patient Walk: Yes Gait (FIM): 5 (household) Gait distance (FIM): 1=884-40 ft Walk 10 feet (QC): 6 Walk 10ft-Uneven Surface(QC): 6 Walk 50ft with 2 Turns (QC): 6 Walk 150 ft (QC): 88 Gait Level of Assist: 6 Gait Assistive Device: FWW Does the Pt use WC or Scooter?: Yes Wheelchair (FIM): 6 Wheelchair distance (FIM): 3=150 ft Wheel 50 feet with 2 turns (QC: 6 Stairs (FIM): 88 1 Step (curb) (QC): 88 4 Steps (QC): 88 12 Steps (QC): 88 Picking up an Object (QC): 88 PT Plan Problem List Problem List: Activity Tolerance, Functional Strength, Safety, Balance, Gait, Transfer, Bed Mobility Treatment/Plan Treatment Plan: Continue Plan of Care Treatment Plan: Bed Mobility, Education, Functional Activity [place], Functional Strength, Group Therapy, Gait, Safety, Therapeutic Exercise, Transfers Treatment Duration: Aug 12, 2018 Frequency: At least 5 of 7 days/Wk (IRF) Estimated Hrs Per Day: 1.5 hours per day Patient and/or Family Agrees t: Yes Safety Risks/Education Patient Education: Correct Positioning, Safety Issues Teaching Recipient: Patient Teaching Methods: Discussion Response to Teaching: Reinforcement Needed Time/GCodes Time In: 1330 Time Out: 1400 Total Billed Treatment Time: 30 Total Billed Treatment 1, EX (20m) & FA (10m) G Codes Necessary: COLTEN La PTA Jul 31, 2018 16:30
[2018-07-31 17:25] VITALS: BP 148/67
--- NOTE | 2018-07-31 18:55 | NUR ---
Bryan Light to roger.
[2018-07-31] MEDS: ATORVASTATIN 40 MG (LIPITOR) TABLET PO SCH (21:53)
[2018-08-01] VITALS (8 sets, daily range): BP systolic 124–151; BP diastolic 60–85
[2018-08-01] MEDS: RT-ALBUTEROL/IPRATROPIUM 3 ML (DUONEB) VIAL INH SCH ×4 (01:48→20:14)
[2018-08-01] MEDS: DILTIAZEM 60 MG (CARDIZEM) TAB PO SCH ×3 (06:28→21:04)
[2018-08-01] MEDS: KCL 20 MEQ POWDER FOR ORAL SOLUTION PEG SCH (06:28)
[2018-08-01] MEDS: FUROSEMIDE 20 MG (LASIX) TAB PO SCH ×2 (06:29→17:21)
[2018-08-01 06:44] LABS: HEMOGLOBIN 7.2 G/DL (13.3-17.7); MEAN PLATELET VOLUME 11.2 FL (7.4-10.4); RED BLOOD COUNT 2.42 10^6/uL (4.35-5.85); RED CELL DISTRIBUTION WIDTH 20.2 % (10.0-14.5); WHITE BLOOD COUNT 7.4 10^3/uL (4.3-11.0)
[2018-08-01 07:13] LABS: ALANINE AMINOTRANSFERASE 16 U/L (0-55); ALBUMIN 3.1 GM/DL (3.2-4.5); ALKALINE PHOSPHATASE 91 U/L (40-136); BILIRUBIN,TOTAL 0.4 MG/DL (0.1-1.0); BUN/CREATININE RATIO 20; CARBON DIOXIDE 30 MMOL/L (21-32); CHLORIDE 100 MMOL/L (98-107); CREATININE SERUM 0.86 MG/DL (0.60-1.30); GFR ESTIMATED > 60; GLUCOSE 89 MG/DL (70-105); POTASSIUM 4.4 MMOL/L (3.6-5.0); SODIUM 138 MMOL/L (135-145); TOTAL PROTEIN 7.2 GM/DL (6.4-8.2)
--- NOTE | 2018-08-01 09:01 | Physical Therapy Daily Note ---
PT Daily Note-Current Subjective Pt laying Supine in bed upon arrival. Sp reports pt is wet and needs changed. Pt agrees to PT. Mental Status Patient Orientation: Person, Place Attachments: Oxygen Transfers Therapy Code Descriptions/Definitions Functional [place] Measure: 0=Not Assessed/NA 4=Minimal Assistance 1=Total Assistance 5=Supervision or Setup 2=Maximal Assistance 6=Modified [place] 3=Moderate Assistance 7=Complete [place] Therapy Quality Codes: 6 Independent with activity with or without an assistive device 5 Patient requires set up or clean up by helper. Patient completes activity by themselves 4 Supervision or touching assist (CGA). [place] provide cues , steadying assist 3 The helper provides less than half the effort to complete the activity 2 The helper provides more than half the effort to complete the activity 1 Dependent. The helper does all the effort to complete an activity 7 Patient refused to complete or attempt activity 9 The patient did not perform the activity before the current illness or injury 88 Not attempted due to Medical conditions or safety concerns Scootin Rollin Roll Left to Right (QC): 4 Supine to/from Sit: 4 Sit to/from Stand: 3 Sit to Stand (QC): 3 Weight Bearing Right Lower Extremity: Right Weight Bearing/Tolerated Left Lower Extremity: Left Weight Bearing/Tolerated Gait Training Does the Patient Walk?: Yes Distance (FIM): 1=up to 49 ft Distance: 10' Walk 10 feet (QC): 4 Gait Assistive Device: FWW Exercises Seated Therapy Exercises: Ankle pumps, Long arc quads, Hip flexion, Kicking activity, Hip abd/add Seated Reps: 15 Treatments Pt rolls side to side to allow SR VICE PRESIDENT to wipe and apply new brief. Pt then stands from EOB using FWW at Min A. Pt ambulates to [facility] and attempts to sit before brakes are applied and only sit on edge of [facility]. SR VICE PRESIDENT has pt transfer to recliner since there will be time between PT & OT tx and recliner will have chair alarm. Pt completes Seated Ex in recliner then rests at end of tx with all needs met. Assessment Current Status: Fair Progress Pt continues to struggle with social awareness especially concerning safety. PT Short Term Goals Short Term Goals Time Frame: Jul 29, 2018 Transfers (B,C,W/C) (FIM): 5 Gait (FIM): 2 Distance (FIM): 1=up to 49 ft Gait Assistive Device: FWW Wheelchair Distance: 200' PT Risk Modeler Goals Risk Modeler Goals PT [facility] Goals Time Frame: Aug 12, 2018 Transfers (B,C,W/C) (FIM): 6 Sit to Lying (QC): 6 Lying-Sitting on Side/Bed(QC): 6 Sit to Stand (QC): 6 Rollin Roll Left to Right (QC): 6 Chair/Qpo-ks-Auxrp Xfer(QC): 6 Car Transfer (QC): 5 Does the Patient Walk: Yes Gait (FIM): 5 (household) Gait distance (FIM): 3=835-88 ft Walk 10 feet (QC): 6 Walk 10ft-Uneven Surface(QC): 6 Walk 50ft with 2 Turns (QC): 6 Walk 150 ft (QC): 88 Gait Level of Assist: 6 Gait Assistive Device: FWW Does the Pt use WC or Scooter?: Yes Wheelchair (FIM): 6 Wheelchair distance (FIM): 3=150 ft Wheel 50 feet with 2 turns (QC: 6 Stairs (FIM): 88 1 Step (curb) (QC): 88 4 Steps (QC): 88 12 Steps (QC): 88 Picking up an Object (QC): 88 PT Plan Problem List Problem List: Activity Tolerance, Functional Strength, Safety, Balance, Gait, Transfer, Bed Mobility Treatment/Plan Treatment Plan: Continue Plan of Care Treatment Plan: Bed Mobility, Education, Functional Activity [place], Functional Strength, Group Therapy, Gait, Safety, Therapeutic Exercise, Transfers Treatment Duration: Aug 12, 2018 Frequency: At least 5 of 7 days/Wk (IRF) Estimated Hrs Per Day: 1.5 hours per day Patient and/or Family Agrees t: Yes Safety Risks/Education Patient Education: Gait Training, Transfer Techniques, Correct Positioning, Safety Issues Teaching Recipient: Patient Teaching Methods: Discussion Response to Teaching: Reinforcement Needed Time/GCodes Time In: 815 Time Out: 900 Total Billed Treatment Time: 45 Total Billed Treatment 1, FA x 2 (25m) & EX (20m) G Codes Necessary: COLTEN La PTA Aug 01, 2018 09:01
[2018-08-01] MEDS: MENTHOL/ZINC OXIDE (CALMOSEPTINE) 113 GM TUBE TOP SCH ×2 (09:04→20:58)
[2018-08-01] MEDS: PHENAZOPYRIDINE 100 MG (PYRIDIUM) TABLET PO SCH ×3 (09:04→17:21)
[2018-08-01] MEDS: meTOprolol TARTRATE 25 MG (LOPRESSOR) TABLET PO SCH ×2 (09:04→20:57)
[2018-08-01] MEDS: DOCUSATE SODIUM 10 MG/ML 10 ML UDC (COLACE) PEG SCH ×2 (09:04→20:56)
[2018-08-01] MEDS: ASPIRIN 81 MG CHEW (CHILDREN'S ASA) PO SCH (09:04)
[2018-08-01] MEDS: LACTOBACILLUS ACIDOPHILUS (PROBIOTIC) CAPSULE PO SCH ×2 (09:04→20:57)
[2018-08-01] MEDS: AMIODARONE 200 MG (CORDARONE) TAB PO SCH (09:04)
[2018-08-01] MEDS: guaiFENesin/DM (ROBITUSSIN DM) 10 ML UDC PO SCH ×3 (09:04→20:56)
[2018-08-01] MEDS: DIGOXIN 0.125 MG (LANOXIN) TAB PO SCH (09:04)
[2018-08-01] MEDS: MEXILETINE 150 MG (MEXITIL) CAPSULE PO SCH ×3 (09:06→23:07)
[2018-08-01] MEDS: PANTOPRAZOLE 2 MG/ML LIQUID 200 ML (PROTONIX) PEG SCH ×3 (09:06)
[2018-08-01] MEDS: CHOLESTYRAMINE 4 GM (QUESTRAN LITE, PREVALITE) PKT PO SCH ×2 (11:00→23:59)
--- NOTE | 2018-08-01 11:03 | Speech Therapy Daily Note ---
Speech Daily Progress Note Subjective Date Seen by Provider: Aug 01, 2018 Time Seen by Provider: 00:30 Patient was pleasant and attentive to OME tasks. Objective Patient completed OME for pharyngeal strengthening at 80% with minimal verbal cues and/or repetition. Assessment Assessment Current Status: Fair Progress Treatment Plan Continue Plan of Care Communication Comprehension: 2 Expression: 2 Social Cognition Social Interaction: 2 Problem Solvin Memory: 2 Speech Short Term Goals Short Term Goals Short Term Goals 1) Patient will be able to recall new information with 80% or greater given minimal cues. 2) Patient will be able to name items/pictures presented with 80% or greater given minimal cues. 3) Patient will utilize compensatory strategies for safety within his room with 80% or greater given minimal cues. 4) Patient will complete pharyngeal exercises 5x/week in order to return to PO status. 5) Patient will tolerate trials of least restrictive diet level without s/s of aspiration. Speech Telemetry Technician Goals Telemetry Technician Goals 1) Patient will improve memory, problem solving and auditory processing in order to return safely home. 2) Patient will demonstrate a safe swallow function for oral intake for maintaining nutrition/hydration. Speech-Plan Patient/Family Goals Patient/Family Goals: Patient plans to return home with his next week post rehab. Treatment Plan Speech Therapy Treatment Plan: Continue Plan of Care Patient is coughing significantly less. Treatment Duration: Aug 05, 2018 Frequency: 5 times per week Estimated Hrs Per Day: .5 hour per day Rehab Potential: Fair Barriers to Learning: Patient has cognitive deficits. Pt/Family Agrees to Plan: Yes Safety Risks/Education Teaching Recipient: Patient Teaching Methods: Discussion Response to Teaching: Verbalize Understanding Education Topics Provided: Safety, NPO education Time Speech Therapy Time In: 10:30 Speech Therapy Time Out: 11:00 Total Billed Time: 30 Billed Treatment Time 1, JULIA Carter Aug 01, 2018 11:03
--- NOTE | 2018-08-01 11:54 | Physical Therapy Daily Note ---
PT Daily Note-Current Subjective Pt sitting in recliner upon arrival. Pt agrees to PT for Seated Ex. Mental Status Patient Orientation: Person, Place Attachments: Oxygen Transfers Therapy Code Descriptions/Definitions Functional [place] Measure: 0=Not Assessed/NA 4=Minimal Assistance 1=Total Assistance 5=Supervision or Setup 2=Maximal Assistance 6=Modified Recluse 3=Moderate Assistance 7=Complete Recluse Therapy Quality Codes: 6 Independent with activity with or without an assistive device 5 Patient requires set up or clean up by helper. Patient completes activity by themselves 4 Supervision or touching assist (CGA). [place] provide cues , steadying assist 3 The helper provides less than half the effort to complete the activity 2 The helper provides more than half the effort to complete the activity 1 Dependent. The helper does all the effort to complete an activity 7 Patient refused to complete or attempt activity 9 The patient did not perform the activity before the current illness or injury 88 Not attempted due to Medical conditions or safety concerns Weight Bearing Right Lower Extremity: Right Weight Bearing/Tolerated Left Lower Extremity: Left Weight Bearing/Tolerated Exercises Seated Therapy Exercises: Ankle pumps, Long arc quads, Hip flexion, Kicking activity, Hip abd/add Seated Reps: 20 (2 sets of 20 reps) Treatments Pt completes Seated Ex in recliner with several rest breaks to increase strength and activity tolerance especially for ambulation. Assessment Current Status: Fair Progress Pt is confused at times while completing Exercises. Pt needs both VC & Phy. Cues to complete. PT Short Term Goals Short Term Goals Time Frame: Jul 29, 2018 Transfers (B,C,W/C) (FIM): 5 Gait (FIM): 2 Distance (FIM): 1=up to 49 ft Gait Assistive Device: FWW Wheelchair Distance: 200' PT Bed Machine Operator Goals Bed Machine Operator Goals PT Bed Machine Operator Goals Time Frame: Aug 12, 2018 Transfers (B,C,W/C) (FIM): 6 Sit to Lying (QC): 6 Lying-Sitting on Side/Bed(QC): 6 Sit to Stand (QC): 6 Rollin Roll Left to Right (QC): 6 Chair/Mnf-ke-Mgjeh Xfer(QC): 6 Car Transfer (QC): 5 Does the Patient Walk: Yes Gait (FIM): 5 (household) Gait distance (FIM): 3=393-88 ft Walk 10 feet (QC): 6 Walk 10ft-Uneven Surface(QC): 6 Walk 50ft with 2 Turns (QC): 6 Walk 150 ft (QC): 88 Gait Level of Assist: 6 Gait Assistive Device: FWW Does the Pt use WC or Scooter?: Yes Wheelchair (FIM): 6 Wheelchair distance (FIM): 3=150 ft Wheel 50 feet with 2 turns (QC: 6 Stairs (FIM): 88 1 Step (curb) (QC): 88 4 Steps (QC): 88 12 Steps (QC): 88 Picking up an Object (QC): 88 PT Plan Problem List Problem List: Activity Tolerance, Functional Strength, Safety Treatment/Plan Treatment Plan: Continue Plan of Care Treatment Plan: Bed Mobility, Education, Functional Activity [place], Functional Strength, Group Therapy, Gait, Safety, Therapeutic Exercise, Transfers Treatment Duration: Aug 12, 2018 Frequency: At least 5 of 7 days/Wk (IRF) Estimated Hrs Per Day: 1.5 hours per day Patient and/or Family Agrees t: Yes Safety Risks/Education Patient Education: Correct Positioning, Safety Issues Teaching Recipient: Patient Teaching Methods: Discussion Response to Teaching: Reinforcement Needed Time/GCodes Time In: 1130 Time Out: 1200 Total Billed Treatment Time: 30 Total Billed Treatment 1, EX x2 (30m) G Codes Necessary: COLTEN La HAMMER SHOP SUPERVISOR Aug 01, 2018 11:54
[2018-08-01] MEDS ORDERED: NS IV 500 ML 500 ML IV SCH (12:08)
--- NOTE | 2018-08-01 12:12 | PM&R Progress Note ---
Subjective HPI/CC On Admission Date Seen by Provider: Aug 01, 2018 Time Seen by Provider: 07:45 CC: Severe debility HPI: This is a 78-year-old white male [facility]ly [facility] patient was admitted to inpatient rehabilitation for IV medication and severe debility resolution. He was admitted to [facility] for 11 days requiring PEG tube placement due to silent aspiration and urinary stent placement due to obstructive stone in ureter and maintained on antibiotic regimen with aggressive physical therapy. I reviewed old records and culture results from infectious disease and reviewed current lab results along with vital signs. He is sitting up in chair drowsy but oriented 3 but appears to be severely chronically ill. Her goal is to return to independent ADL function along with completion of IV antibiotics. Subjective/Events-last exam Patient doing very well today Hemoglobin down to 7.2 and I did confer with Dr. Elliott who recommended to give 2 units of blood and check ferritin level and he will see him in consultation later this evening. Denies any pain Getting close to discharge likely on Sunday as long as PEG tube feedings can be taught to the caregiver Bowels are moving okay Review of Systems General: Fatigue Pulmonary: Cough Objective Exam Vital Signs Vital Signs Date Time Temp Pulse Resp B/P (MAP) Pulse Ox O2 Delivery O2 Flow Rate FiO2 08/01/18 20:14 94 Nasal Cannula 2.00 08/01/18 18:57 98.2 91 18 151/73 Capillary Refill : General Appearance: No Apparent Distress, WD/WN, Chronically ill Respiratory: Chest Non Tender, No Accessory Muscle Use, No Respiratory Distress , Crackles, Wheezing Cardiovascular: Regular Rate, Rhythm, No Edema, No Gallop, No JVD, No Murmur, Normal Peripheral Pulses Neurologic/Psychiatric: Alert, Oriented x3, No Motor/Sensory Deficits, Normal Mood/Affect Skin: Normal Color, Warm/Dry Results/Procedures Lab Laboratory Tests 08/01/18 06:30 Patient resulted labs reviewed. Assessment/Plan Assessment and Plan Assess & Plan/Chief Complaint Assessment: Anemia with presumed GI bleed with hemoccult positive but Dr Payne performed EGD/ Colon last week without source of loss identified and iron 50 on check to receive 2 units of blood today and Hematology consultation by Dr Elliott MRSA pneumonia s/p treatment completion Pseudomonas UTI s/p treatment with Gent Severe debilitated state CAD previous bypass graft ICD defibrillator in place Presbycusis Sleep apnea Chronic respiratory failure Aspiration with PEG tube placement and NPO status Plan: Dr Elliott consultation Hold ASA, DC accuchecks PEG tube feedings Speech therapy PT/OT DC Sunday Consult Dr Fonseca is appreciated Consult Dr Demetrice Payne is appreciated Consult Dr Elliott is appreciated Give 2 units of blood today and check ferritin Diagnosis/Problems Diagnosis/Problems (1) Debility Status: Acute (2) GI bleed Status: Acute Qualifiers: GI bleed type/associated pathology: unspecified gastrointestinal hemorrhage type Qualified Codes: K92.2 - Gastrointestinal hemorrhage, unspecified (3) MRSA pneumonia Status: Resolved Qualifiers: Laterality: unspecified laterality Lung location: unspecified part of lung Qualified Codes: J15.212 - Pneumonia due to methicillin resistant Staphylococcus aureus Resolution Date/Time: 07/31/18 @ 14:23 (4) Pseudomonas urinary tract infection Status: Resolved Resolution Date/Time: 08/01/18 @ 20:39 (5) Pyelonephritis Status: Resolved Resolution Date/Time: 07/31/18 @ 14:23 (6) Renal calculus, left Status: Resolved Resolution Date/Time: 07/31/18 @ 14:23 (7) Acute renal insufficiency Status: Resolved Resolution Date/Time: 06/16/18 @ 17:54 (8) Diabetes mellitus, type 2 Status: Chronic Qualifiers: Diabetes mellitus half-way insulin use: with half-way use Diabetes mellitus complication status: with circulatory complication Diabetes mellitus complication detail: with other circulatory complications Qualified Codes: E11.59 - Type 2 diabetes mellitus with other circulatory complications; Z79.4 - halfway (current) use of insulin (9) Congestive heart failure Status: Chronic Qualifiers: Heart failure type: unspecified Heart failure chronicity: acute on chronic Qualified Codes: I50.9 - Heart failure, unspecified (10) COPD (chronic obstructive pulmonary disease) Status: Chronic Qualifiers: COPD type: unspecified COPD Qualified Codes: J44.9 - Chronic obstructive pulmonary disease, unspecified (11) Paroxysmal atrial fibrillation Status: Chronic (12) CAD (coronary artery disease) Status: Chronic Qualifiers: Coronary Disease-Associated Artery/Lesion type: [place] artery [place] vs. transplanted heart: [place] heart Associated angina: without angina Qualified Codes: I25.10 - Atherosclerotic heart disease of [place] coronary artery without angina pectoris (13) ICD (implantable cardioverter-defibrillator) in place Status: Chronic (14) Melena Status: Acute (15) Diarrhea Status: Acute Qualifiers: Diarrhea type: unspecified type Qualified Codes: R19.7 - Diarrhea, unspecified (16) Anemia Status: Acute Qualifiers: Anemia type: iron deficiency Iron deficiency anemia type: chronic blood loss Qualified Codes: D50.0 - Iron deficiency anemia secondary to blood loss ( chronic) (17) At risk for aspiration Status: Chronic (18) PEG (percutaneous endoscopic gastrostomy) status Status: Chronic (19) Rales Status: Chronic (20) Transfusion of blood during current hospitalization Status: Acute Clinical Quality Measures DVT/VTE Risk/Contraindication: Risk Factor Score Per Nursin RFS Level Per Nursing on Admit: 4+=Very High BRIGITTE LEMA DO Aug 01, 2018 12:12
[2018-08-01] MEDS ORDERED: FUROSEMIDE 40 MG/4 ML INJ (LASIX) IVP NR ×2 (12:15)
--- NOTE | 2018-08-01 12:18 | Occupational Ther Daily Note ---
OT Current Status-Daily Note Subjective No pain reported. Appearance Pt. up in chair in room. Declines bathing but agrees to get dressed. Mental Status/Objective Patient Orientation: Person Therapy Code Descriptions/Definitions Functional [place] Measure: 0=Not Assessed/NA 4=Minimal Assistance 1=Total Assistance 5=Supervision or Setup 2=Maximal Assistance 6=Modified [place] 3=Moderate Assistance 7=Complete [place] Attachments: Oxygen ADL-Treatment Therapy Code Descriptions/Definitions Functional [place] Measure: 0=Not Assessed/NA 4=Minimal Assistance 1=Total Assistance 5=Supervision or Setup 2=Maximal Assistance 6=Modified [place] 3=Moderate Assistance 7=Complete [place] Therapy Quality Codes: 6 Independent with activity with or without an assistive device 5 Patient requires set up or clean up by helper. Patient completes activity by themselves 4 Supervision or touching assist (CGA). [place] provide cues , steadying assist 3 The helper provides less than half the effort to complete the activity 2 The helper provides more than half the effort to complete the activity 1 Dependent. The helper does all the effort to complete an activity 7 Patient refused to complete or attempt activity 9 The patient did not perform the activity before the current illness or injury 88 Not attempted due to Medical conditions or safety concerns Grooming (FIM): 4 (Pt. given comb and swiped at hair. OT went back over this for him.) Lower Body Dressing (FIM): 4 (Pt. able to doff/don shoes. Requires min assist to don pants over right foot. Able to get pants over left foot and able to tail puller hips in stance with CGA for stability.) Lower Body Dressing (QC): 4 On/Off Footwear (QC): 5 Transfers (B, C, W/C) (FIM): 4 (Min assist sit-stand out of wheelchair to ambulate with walker.) Pt. agrees to dress. Pt. does not have his own shirt available, and a rehab shirt can't be found. Pt. agrees to don clean pants and a hospital gown. After this, Pt. agrees to ambulate toward therapy gym. Pt. is able to ambulate with CGA with walker approximately 100 feet. Requests wheelchair. Pt. self propelled to therapy gym. Donned 1 lb. wrist weights and completed peg activity with reaching. Worked on this for increased overall strength and independence. Pt. states that he is "done" group home through. Completed 5 bilateral UE exercises x 10 reps with 1 lb. wrist weights on in all planes to increase overall strength and independence. After this, pt. agreed to ambulate again with walker. Tolerated approximately 100 feet at walker with CGA. Sat in wheelchair and propelled back to room. Once in room, pt. transferred with CGA to reclining chair. All needs met in room. Education OT Patient Education: Correct positioning, Modified ADL techniques, Progress toward Goal/Update tx plan, Purpose of tx/functional activities, Reviewed precautions, Rehab process, Transfer techniques Teaching Recipient: Patient Teaching Methods: Demonstration Response to Teaching: Return Demonstration OT Short Term Goals Short Term Goals Time Frame: Jul 29, 2018 Eating(FIM): 4 Grooming(FIM): 3 Upper Body Dressing(FIM): 3 Lower Body Dressing(FIM): 3 Toileting(FIM): 4 Transfers (B,C,W/C) (FIM): 5 Toilet/Commode Transfer(FIM): 4 Additional Short Term Goals: 1-Demonstrate ADL Tasks, 2-Verbalize Understanding , 3-ImproveStrength/[place] 1=Demonstrate adherence to instructed precautions during ADL tasks. 2=Patient will verbalize/demonstrate understanding of assistive devices/ modifications for ADL. 3=Patient will improve strength/tolerance for activity to enable patient to perform ADL's. OT Stoker Erector And Servicer Goals Nursing Home Goals Time Frame: Aug 19, 2018 Eating (FIM): 5 Eating (QC): 5 Groomin Oral Hygiene (QC): 4 Bathing(FIM): 3 Shower/Bathe Self (QC): 3 Upper Body Dressing(FIM): 5 Upper Body Dressing (QC): 4 Lower Body Dressing(FIM): 4 Lower Body Dressing (QC): 4 On/Off Footwear (QC): 4 Toileting(FIM): 5 Toileting Hygiene (QC): 5 Transfers (B,C,W/C) (FIM): 5 Toilet/Commode Transfer(FIM): 5 Toilet/Commode Transfer (QC): 4 Additional Goals: 1-Demonstrate ADL Tasks, 2-Verbalize Understanding, 3- ImproveStrength/[place] 1=Demonstrate adherence to instructed precautions during ADL tasks. 2=Patient will verbalize/demonstrate understanding of assistive devices/ modifications for ADL. 3=Patient will improve strength/tolerance for activity to enable patient to perform ADL's. OT Education/Plan Problem List/Assessment Assessment: Decreased Activ Tolerance, Decreased Safety Aware, Decreased UE Strength, Impaired I ADL's, Impaired Self-Care Skills, Restricted Funct UE ROM Discharge Recommendations Plan/Recommendations: Continue POC Therapy D/C Recommendations: Home w/ Family Support, Scheduled Assistance Treatment Plan/Plan of Care Treatment,Training & Education: Yes Patient would benefit from OT for education, treatment and training to promote independence in ADL's, mobility, safety and/or upper extremity function for ADL' s. Plan of Care: ADL Retraining, Functional Mobility, Group Exercise/Act as Ind, UE Funct Exercise/Act Treatment Duration: Aug 19, 2018 Frequency: At least 5 of 7 days/Wk (IRF) Estimated Hrs Per Day: 1.5 hours per day Agreement: Yes Rehab Potential: Fair Time/GCodes Start Time: 09:15 Stop Time: 10:15 Total Time Billed (hr/min): 60 Billed Treatment Time 1, ADL [id number], FA x 15minutes, Ex x 15minutes ALFREDO STOVALL OT Aug 01, 2018 12:18
--- NOTE | 2018-08-01 12:32 | NUR ---
PT TOLERATING TUBE FEEDINGS WELL. WEIGHT STABLE. TUBE FEEDINGS MEETING NEEDS AT THIS TIME. CONT TO FOLLOW.
--- NOTE | 2018-08-01 12:32 | Cardiology Progress Note ---
Subjective Date Seen by Provider: Aug 01, 2018 Time Seen by Provider: 12:29 Subjective/Events-last exam Patient is sitting up in chair, complains of mild dyspnea. Denies any chest pain Objective-Cardiology Exam Last Set of Vital Signs Vital Signs 08/01/18 08/01/18 05:51 07:23 Temp 97.6 Pulse 90 Resp 18 B/P (MAP) 143/60 (87) Pulse Ox 90 O2 Delivery Nasal Cannula O2 Flow Rate 2.00 Capillary Refill : I&O Intake and Output 08/01/18 00:00 Intake Total 2440 ml Output Total 450 ml Balance 1990 ml Intake Oral 0 ml Tube Feeding 1440 ml Other 1000 ml Output Urine Total 450 ml # Urine Diapers 3 # Bowel Movements 2 General: Alert, Oriented X3, Cooperative, No Acute Distress HEENT: Atraumatic, PERRLA, EOMI, Mucous Memb Moist/[place] Neck: Supple, No JVD Lungs: Other (coarse breath sounds) Heart: Regular Rate, Normal S1, Normal S2 Abdomen: Normal Bowel Sounds, Soft, No Tenderness, Other (Peg Tube in place) Extremities: No Clubbing, Other (+1 edema BLE) Skin: No Rashes Neuro: Normal Speech, Other (Confusion strength 4/5 LES 4-/5 Upper limbs) Psych/Mental Status: Mental Status NL, Mood NL, Other (subtle memory loss) Results Lab Laboratory Tests 08/01/18 06:30 A/P-Cardiology Admission Diagnosis Debility CAD HTN Chronic atrial fibrillation Assessment/Plan Debility, reporting improvement, asking to go home. Anemia, worsening, planning for blood transfusion. Underwent EGD and colonoscopy revealing gastritis and esophagitis with no active bleed. Continue to monitor H/H. Status post respiratory failure, pneumonia, silent aspiration, on Antibiotics, followed by primary care physician Urosepsis, history of kidney stone and nephrostomy tube, on antibiotics and managed by primary care team Silent aspiration, status post feeding tube placement Coronary artery disease, history of CABG done in the remote past. Patient had a stent done in December 2001 using MultiLink 2.518 mm to the proximal right coronary artery, 2017 had a Cypher stent 3.530 mm to the proximal and mid circumflex artery. Has been followed and managed by primary casino duty manager Dr. Mendez in [place]. Continue to follow History of congestive heart failure, reported ejection fraction 54 percent. MPI in 2013, continue to monitor Paroxysmal atrial fibrillation maintained on amiodarone, intolerant to oral anticoagulation secondary to recurrent nosebleed and anemia, Patient is maintained on Cardizem, Amiodarone,Lopressor and Digoxin, continue to monitor, no changes are recommended Patient has been maintained on mexiletine. Probably due to ventricular fibrillation and history of shock from his defibrillator, known to have [facility] ICD implanted by Dr. vidales in [place]. Continue on Mexiletine COPD, chronic dyspnea, followed by primary care physician Chronic pedal edema,continue to diurese and monitor electrolytes Diabetes mellitus, followed and managed by primary care physician Clinical Quality Measures DVT/VTE Risk/Contraindication: Risk Factor Score Per Nursin RFS Level Per Nursing on Admit: 4+=Very High BINA RODRIGUEZ Aug 01, 2018 12:32
--- NOTE | 2018-08-01 13:57 | NUR ---
PMO BUSINESS ANALYST met with patient and spouse to review team conference summary. Team has recommended discharge on 08/05 if patient's spouse and caregiver can obtain and demonstrate knowledge of bolus tube feeding administration. Although patient's is hesitant to complete this process at home, she is willing to complete education with nursing staff. PMO BUSINESS ANALYST contacted caregiver, Afshan to request presence for education, as well. Afshan states she will contact PMO BUSINESS ANALYST tomorrow in regards to timing availability for education. Due to need for elevation of at least 30 patient would benefit from a hospital bed; however, patient and spouse would like to utilize recliner chair upon discharge and obtain hospital bed at later date, if needed. PMO BUSINESS ANALYST contacted patient's [place] Medicaid case picker, Mignon to inform discharge planning. Patient has no additional equipment needs and would like to resume home health services with [facility] at discharge. PMO BUSINESS ANALYST will notify [facility] of tentative discharge date.
--- NOTE | 2018-08-01 14:29 | Occupational Ther Daily Note ---
OT Current Status-Daily Note Subjective No pain reported. Appearance Pt. up in chair. Agrees to work with OT. Mental Status/Objective Patient Orientation: Person Therapy Code Descriptions/Definitions Functional [place] Measure: 0=Not Assessed/NA 4=Minimal Assistance 1=Total Assistance 5=Supervision or Setup 2=Maximal Assistance 6=Modified [place] 3=Moderate Assistance 7=Complete [place] ADL-Treatment Therapy Code Descriptions/Definitions Functional [place] Measure: 0=Not Assessed/NA 4=Minimal Assistance 1=Total Assistance 5=Supervision or Setup 2=Maximal Assistance 6=Modified [place] 3=Moderate Assistance 7=Complete [place] Therapy Quality Codes: 6 Independent with activity with or without an assistive device 5 Patient requires set up or clean up by helper. Patient completes activity by themselves 4 Supervision or touching assist (CGA). [place] provide cues , steadying assist 3 The helper provides less than half the effort to complete the activity 2 The helper provides more than half the effort to complete the activity 1 Dependent. The helper does all the effort to complete an activity 7 Patient refused to complete or attempt activity 9 The patient did not perform the activity before the current illness or injury 88 Not attempted due to Medical conditions or safety concerns Transfers (B, C, W/C) (FIM): 4 (CGA to stand from wheelchair and ambulate with walker. Pt. ambulated throughout halls, approximately 100 feet x 3 with rest breaks in between. Self propelled wheelchair back to room. Transferred to recliner chair with CGA. All needs met.) Education OT Patient Education: Correct positioning, Exercise program, Progress toward Goal/Update tx plan, Purpose of tx/functional activities, Reviewed precautions, Rehab process, Transfer techniques Teaching Recipient: Patient Teaching Methods: Demonstration, Discussion Response to Teaching: Verbalize Understanding, Return Demonstration OT Short Term Goals Short Term Goals Time Frame: Jul 29, 2018 Eating(FIM): 4 Grooming(FIM): 3 Upper Body Dressing(FIM): 3 Lower Body Dressing(FIM): 3 Toileting(FIM): 4 Transfers (B,C,W/C) (FIM): 5 Toilet/Commode Transfer(FIM): 4 Additional Short Term Goals: 1-Demonstrate ADL Tasks, 2-Verbalize Understanding , 3-ImproveStrength/[place] 1=Demonstrate adherence to instructed precautions during ADL tasks. 2=Patient will verbalize/demonstrate understanding of assistive devices/ modifications for ADL. 3=Patient will improve strength/tolerance for activity to enable patient to perform ADL's. OT Halfway Goals [employer] Mechanic Goals Time Frame: Aug 19, 2018 Eating (FIM): 5 Eating (QC): 5 Groomin Oral Hygiene (QC): 4 Bathing(FIM): 3 Shower/Bathe Self (QC): 3 Upper Body Dressing(FIM): 5 Upper Body Dressing (QC): 4 Lower Body Dressing(FIM): 4 Lower Body Dressing (QC): 4 On/Off Footwear (QC): 4 Toileting(FIM): 5 Toileting Hygiene (QC): 5 Transfers (B,C,W/C) (FIM): 5 Toilet/Commode Transfer(FIM): 5 Toilet/Commode Transfer (QC): 4 Additional Goals: 1-Demonstrate ADL Tasks, 2-Verbalize Understanding, 3- ImproveStrength/[place] 1=Demonstrate adherence to instructed precautions during ADL tasks. 2=Patient will verbalize/demonstrate understanding of assistive devices/ modifications for ADL. 3=Patient will improve strength/tolerance for activity to enable patient to perform ADL's. OT Education/Plan Problem List/Assessment Assessment: Decreased Activ Tolerance, Impaired Cognition, Impaired I ADL's, Impaired Self-Care Skills Discharge Recommendations Plan/Recommendations: Continue POC Therapy D/C Recommendations: Home w/ Family Support, Scheduled Assistance Treatment Plan/Plan of Care Treatment,Training & Education: Yes Patient would benefit from OT for education, treatment and training to promote independence in ADL's, mobility, safety and/or upper extremity function for ADL' s. Plan of Care: ADL Retraining, Functional Mobility, Group Exercise/Act as Ind, UE Funct Exercise/Act Treatment Duration: Aug 19, 2018 Frequency: At least 5 of 7 days/Wk (IRF) Estimated Hrs Per Day: 1.5 hours per day Agreement: Yes Rehab Potential: Fair Time/GCodes Start Time: 13:30 Stop Time: 13:45 Total Time Billed (hr/min): 15 Billed Treatment Time 1, ALFREDO MANN OT Aug 01, 2018 14:29
--- NOTE | 2018-08-01 15:40 | Cardiology Progress Note ---
Subjective Date Seen by Provider: Aug 01, 2018 Time Seen by Provider: 15:40 Subjective/Events-last exam Patient is sitting in a chair, feeling better, no new complaint. Review of Systems General: No Chills, No Night Sweats, No Fatigue, No Malaise, No Appetite, No Other HEENT: No Head Aches, No Visual Changes, No Eye Pain, No Ear Pain, No Dysphasia , No Sinus Congestion, No Post Nasal Drip, No Sore Throat, No Other Pulmonary: No Dyspnea, No Cough, No Pleuritic Chest Pain, No Other Cardiovascular: No: Chest Pain, Palpitations, Orthopnea, Paroxysmal Noc. Dyspnea, Edema, Lt Headedness, Other Objective-Cardiology Exam Last Set of Vital Signs Vital Signs 08/01/18 08/01/18 05:51 15:29 Temp 97.6 Pulse 90 Resp 18 B/P (MAP) 143/60 (87) Pulse Ox 95 O2 Delivery Nasal Cannula O2 Flow Rate 2.00 Capillary Refill : I&O Intake and Output 08/01/18 00:00 Intake Total 2440 ml Output Total 450 ml Balance 1990 ml Intake Oral 0 ml Tube Feeding 1440 ml Other 1000 ml Output Urine Total 450 ml # Urine Diapers 3 # Bowel Movements 2 General: Alert, Oriented X3, Cooperative, No Acute Distress HEENT: Atraumatic, PERRLA, EOMI, Mucous Memb Moist/[place] Neck: Supple, No JVD Lungs: Other (coarse breath sounds) Heart: Regular Rate, Normal S1, Normal S2 Abdomen: Normal Bowel Sounds, Soft, No Tenderness, Other (Peg Tube in place) Extremities: No Clubbing, Other (+1 edema BLE) Skin: No Rashes Neuro: Normal Speech, Other (Confusion strength 4/5 LES 4-/5 Upper limbs) Psych/Mental Status: Mental Status NL, Mood NL, Other (subtle memory loss) Results Lab Laboratory Tests 08/01/18 06:30 A/P-Cardiology Admission Diagnosis Debility CAD HTN Chronic atrial fibrillation Assessment/Plan Debility, reporting improvement, asking to go home. Anemia, worsening, planning for blood transfusion. Underwent EGD and colonoscopy revealing gastritis and esophagitis with no active bleed. Continue to monitor H/H. Status post respiratory failure, pneumonia, silent aspiration, on Antibiotics, followed by primary care physician Urosepsis, history of kidney stone and nephrostomy tube, on antibiotics and managed by primary care team Silent aspiration, status post feeding tube placement Coronary artery disease, history of CABG done in the remote past. Patient had a stent done in December 2001 using MultiLink 2.518 mm to the proximal right coronary artery, 2017 had a Cypher stent 3.530 mm to the proximal and mid circumflex artery. Has been followed and managed by primary weather algorithm scientist Dr. Mendez in [place]. Continue to follow History of congestive heart failure, reported ejection fraction 54 percent. MPI in 2013, continue to monitor Paroxysmal atrial fibrillation maintained on amiodarone, intolerant to oral anticoagulation secondary to recurrent nosebleed and anemia, Patient is maintained on Cardizem, Amiodarone,Lopressor and Digoxin, continue to monitor, no changes are recommended Patient has been maintained on mexiletine. Probably due to ventricular fibrillation and history of shock from his defibrillator, known to have [facility] ICD implanted by Dr. vidales in [place]. Continue on Mexiletine COPD, chronic dyspnea, followed by primary care physician Chronic pedal edema,continue to diurese and monitor electrolytes Diabetes mellitus, followed and managed by primary care physician Clinical Quality Measures DVT/VTE Risk/Contraindication: Risk Factor Score Per Nursin RFS Level Per Nursing on Admit: 4+=Very High JOHN ALFARO MD Aug 01, 2018 3:40 pm
[2018-08-01] MEDS: ATORVASTATIN 40 MG (LIPITOR) TABLET PO SCH (20:57)
[2018-08-01] MEDS ORDERED: FUROSEMIDE 40 MG/4 ML INJ (LASIX) ONE (23:05)
--- NOTE | 2018-08-02 01:28 | CONSULTATION REPORT ---
DATE OF SERVICE: 08/01/2018 The patient was admitted to room 226. REFERRING PHYSICIAN: Mellissa Flores DO. IMPRESSION: 1. A 78-year-old male admitted to the rehabilitation unit because of deconditioning. 2. Worsening anemia with Hemoccult positive stools. Status post EGD and colonoscopy with evidence of significant esophagitis and gastritis, which is probably the source of blood loss. 3. History of recurrent aspiration with pneumonia, status post PEG tube placement 2 weeks ago at [facility] in [place]. 4. History of coronary artery disease since diagnosed in 1985, status post CABG followed by multiple stent placements over the last several years as well as angioplasties. 5. History of atrial fibrillation, congestive heart failure due to cardiomyopathy and defibrillator placement. 6. History of nephrolithiasis and obstructive uropathy, status post percutaneous nephrostomy tube placement. 7. 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 8. History of bleeding peptic ulcer in the past. RECOMMENDATIONS: 1. Agree with packed red blood cell transfusion to maintain hemoglobin more than 8 grams per deciliter because of cardiac problems. 2. Continue proton pump inhibitors daily and consider Carafate slurry through the PEG tube q.i.d. 3. Avoid anticoagulation because of recurrent history of bleeding. 4. Continue management of rest of the medical problems as you are doing. 5. Continue strengthening and rehabilitation as you are doing. BRIEF HISTORY: The patient is a 78-year-old male admitted to inpatient rehabilitation because of severe debility as well as IV antibiotic therapy. The patient had developed aspiration pneumonia and was admitted to [facility] in [place] with IV antibiotics for 11 days. During his admission, and a PEG tube was placed because of his aspiration. During the hospitalization, he was noted to have worsening anemia and fecal occult blood tests were positive. He underwent an EGD and colonoscopy with the EGD showing esophagitis and gastritis without active bleeding. Hematology consultation was obtained for concurrent management. PAST MEDICAL HISTORY: Significant for coronary artery disease diagnosed in 1985 requiring a CABG. Since then, he has required stent placements on three separate occasions and multiple angioplasties. He was unable to tolerate any type of anticoagulation because of bleeding. He gives a history of bleeding peptic ulcer disease in the past and has been on Nexium chronically. Other significant past medical history includes COPD with oxygen dependence. Atrial fibrillation, congestive heart failure and cardiomyopathy requiring a defibrillator placement, recent diagnosis of silent aspiration requiring a PEG tube placement. History of obstructive nephropathy requiring a percutaneous nephrostomy tube placement. He gives a history of a left hip fracture requiring ORIF in the past. Also, has a history of sleep apnea. History of hypertension and hypercholesterolemia. He has mild dementia, which is gradually worsening. SOCIAL HISTORY: The patient is and lives near [place], [place]. The patient does not have any children of his own, but has 3 stepchildren. He gives a history of [id number] tobacco use, smoking 2 packs a day x30 years. He quit smoking 32 years ago. History of alcohol use in the past, which was also stopped approximately 32 years ago. No history of recreational drug use. The patient is currently retired. 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 FAMILY HISTORY: Unremarkable, with his only relative is being a brother and three nephews and nieces. PHYSICAL EXAMINATION: GENERAL: Today showed an elderly male sitting in a chair, awake and answering simple questions appropriately, although having difficulty providing any details. History was obtained from his who was present in the room. VITAL SIGNS: Temperature was 97.7, pulse rate 91, respirations 18, blood pressure 136/79, oxygen saturation 95% on 2 liters of oxygen by nasal cannula. HEENT: Normocephalic. Male pattern baldness. Few healed scars from surgical resection of skin cancers on the scalp. Extraocular muscles intact, conjunctivae are pale, oral mucosa moist. NECK: Supple, with no JVD. No cervical, supraclavicular or axillary lymphadenopathy palpable. CHEST: Today showed an implanted defibrillator/pacemaker present. LUNGS: With slightly diminished breath sounds bilaterally without wheezes or rales. CARDIOVASCULAR: Irregularly irregular with a controlled rate. ABDOMEN: Soft, nontender with no hepatosplenomegaly or other masses palpable. EXTREMITIES: Showed 1+ edema around the ankles. NEUROLOGIC: Showed overall motor strength 4/5. No focal motor deficits were noted. LABORATORY DATA: CBC done today showed WBC 7.4, hemoglobin 7.2, MCV 98, RDW 20.2, platelet count 156,000. Chemistry panel today showed normal electrolytes. BUN was 17 and creatinine 0.86 with GFR more than 60 mL per minute. Liver function studies were within normal limits except albumin level of 3.1. Serum ferritin level drawn today is pending. CBC done on 07/22/2018 had shown hemoglobin level of 11.1, which has been steadily declining since then. Fecal occult blood test done on 07/28/2018 was positive. EGD and colonoscopy done on 07/29/2018 showed stage II reflux esophagitis with moderate gastritis. No definite ulcerations or active bleeding noted. He also had stage II chronic external and internal hemorrhoids on colonoscopy with mild to moderate diverticulosis without diverticulitis. Thank you for allowing me to participate in this patient's care. I will follow the patient with you. Job ID: [id number] DocumentID: [id number] Dictated Date: 08/01/2018 18:50:53 Chief Procurement Officer Date: 08/02/2018 01:27:52 Dictated By: GINO OLIVO MD
[2018-08-02 05:04] VITALS: BP 119/58
[2018-08-02] MEDS: KCL 20 MEQ POWDER FOR ORAL SOLUTION PEG SCH (06:15)
[2018-08-02] MEDS: DILTIAZEM 60 MG (CARDIZEM) TAB PO SCH ×3 (06:15→22:21)
[2018-08-02] MEDS: FUROSEMIDE 20 MG (LASIX) TAB PO SCH ×2 (06:15→16:23)
[2018-08-02] MEDS: RT-ALBUTEROL/IPRATROPIUM 3 ML (DUONEB) VIAL INH SCH ×3 (07:50→20:32)
--- NOTE | 2018-08-02 08:38 | PM&R Progress Note ---
Subjective HPI/CC On Admission Date Seen by Provider: Aug 02, 2018 Time Seen by Provider: 07:45 CC: Severe debility HPI: This is a 78-year-old white male [facility] patient was admitted to inpatient rehabilitation for IV medication and severe debility resolution. He was admitted to [facility] for 11 days requiring PEG tube placement due to silent aspiration and urinary stent placement due to obstructive stone in ureter and maintained on antibiotic regimen with aggressive physical therapy. I reviewed old records and culture results from infectious disease and reviewed current lab results along with vital signs. He is sitting up in chair drowsy but oriented 3 but appears to be severely chronically ill. Her goal is to return to independent ADL function along with completion of IV antibiotics. Subjective/Events-last exam Patient doing well In the process of discharge on Sunday and will provide PEG tube feedings Overall feeling well otherwise Cough has improved Bowels are moving Labs remained stable Appreciate hematology consultation Denies any pain Review of Systems General: Fatigue Pulmonary: Cough Objective Exam Vital Signs Vital Signs Date Time Temp Pulse Resp B/P (MAP) Pulse Ox O2 Delivery O2 Flow Rate FiO2 08/03/18 09:18 97 Nasal Cannula 2.00 08/03/18 06:00 98.1 90 20 104/69 (81) Capillary Refill : General Appearance: No Apparent Distress, WD/WN, Chronically ill Respiratory: Chest Non Tender, No Accessory Muscle Use, No Respiratory Distress , Crackles, Decreased Breath Sounds, Wheezing Cardiovascular: Regular Rate, Rhythm, No Edema, No Gallop, No JVD, No Murmur, Normal Peripheral Pulses Neurologic/Psychiatric: Alert, Oriented x3, No Motor/Sensory Deficits, Normal Mood/Affect Results/Procedures Lab Patient resulted labs reviewed. Assessment/Plan Assessment and Plan Assess & Plan/Chief Complaint Assessment: Anemia with presumed GI bleed with hemoccult positive but Dr Payne performed EGD/ Colon last week without source of loss identified and iron 50 on check to receive 2 units of blood 08/01/18 and Hematology consultation completed by Dr Elliott MRSA pneumonia s/p treatment completion Pseudomonas UTI s/p treatment with Gent Severe debilitated state CAD previous bypass graft ICD defibrillator in place Presbycusis Sleep apnea Chronic respiratory failure Aspiration with PEG tube placement and NPO status Plan: Dr Elliott consultation is appreciated PEG tube feedings Speech therapy PT/OT DC Sunday Consult Dr Fonseca is appreciated Consult Dr Demetrice Payne is appreciated Consult Dr Elliott is appreciated Diagnosis/Problems Diagnosis/Problems (1) Debility Status: Acute (2) GI bleed Status: Chronic Qualifiers: GI bleed type/associated pathology: unspecified gastrointestinal hemorrhage type Qualified Codes: K92.2 - Gastrointestinal hemorrhage, unspecified (3) MRSA pneumonia Status: Resolved Qualifiers: Laterality: unspecified laterality Lung location: unspecified part of lung Qualified Codes: J15.212 - Pneumonia due to methicillin resistant Staphylococcus aureus Resolution Date/Time: 07/31/18 @ 14:23 (4) Pseudomonas urinary tract infection Status: Resolved Resolution Date/Time: 08/01/18 @ 20:39 (5) Pyelonephritis Status: Resolved Resolution Date/Time: 07/31/18 @ 14:23 (6) Renal calculus, left Status: Resolved Resolution Date/Time: 07/31/18 @ 14:23 (7) Acute renal insufficiency Status: Resolved Resolution Date/Time: 06/16/18 @ 17:54 (8) Diabetes mellitus, type 2 Status: Chronic Qualifiers: Diabetes mellitus shelter insulin use: with oysterman use Diabetes mellitus complication status: with circulatory complication Diabetes mellitus complication detail: with other circulatory complications Qualified Codes: E11.59 - Type 2 diabetes mellitus with other circulatory complications; Z79.4 - retirement (current) use of insulin (9) Congestive heart failure Status: Chronic Qualifiers: Heart failure type: unspecified Heart failure chronicity: acute on chronic Qualified Codes: I50.9 - Heart failure, unspecified (10) COPD (chronic obstructive pulmonary disease) Status: Chronic Qualifiers: COPD type: unspecified COPD Qualified Codes: J44.9 - Chronic obstructive pulmonary disease, unspecified (11) Paroxysmal atrial fibrillation Status: Chronic (12) CAD (coronary artery disease) Status: Chronic Qualifiers: Coronary Disease-Associated Artery/Lesion type: [place] artery [place] vs. transplanted heart: [place] heart Associated angina: without angina Qualified Codes: I25.10 - Atherosclerotic heart disease of [place] coronary artery without angina pectoris (13) ICD (implantable cardioverter-defibrillator) in place Status: Chronic (14) Melena Status: Acute (15) Diarrhea Status: Acute Qualifiers: Diarrhea type: unspecified type Qualified Codes: R19.7 - Diarrhea, unspecified (16) Anemia Status: Acute Qualifiers: Anemia type: iron deficiency Iron deficiency anemia type: chronic blood loss Qualified Codes: D50.0 - Iron deficiency anemia secondary to blood loss ( chronic) (17) At risk for aspiration Status: Chronic (18) PEG (percutaneous endoscopic gastrostomy) status Status: Chronic (19) Rales Status: Chronic (20) Transfusion of blood during current hospitalization Status: Acute Clinical Quality Measures DVT/VTE Risk/Contraindication: Risk Factor Score Per Nursin RFS Level Per Nursing on Admit: 4+=Very High BRIGITTE LEMA DO Aug 02, 2018 08:38
--- NOTE | 2018-08-02 08:56 | Physical Therapy Daily Note ---
PT Daily Note-Current Subjective Pt. and in room. encourages pt. to participate. Pt. then cooperative. No c/o Pain Location: No Pain Reported Mental Status Patient Orientation: Person, Place Attachments: Oxygen (2L) Transfers Therapy Code Descriptions/Definitions Functional [place] Measure: 0=Not Assessed/NA 4=Minimal Assistance 1=Total Assistance 5=Supervision or Setup 2=Maximal Assistance 6=Modified [place] 3=Moderate Assistance 7=Complete [place] Therapy Quality Codes: 6 Independent with activity with or without an assistive device 5 Patient requires set up or clean up by helper. Patient completes activity by themselves 4 Supervision or touching assist (CGA). [place] provide cues , steadying assist 3 The helper provides less than half the effort to complete the activity 2 The helper provides more than half the effort to complete the activity 1 Dependent. The helper does all the effort to complete an activity 7 Patient refused to complete or attempt activity 9 The patient did not perform the activity before the current illness or injury 88 Not attempted due to Medical conditions or safety concerns Transfers (B, C, W/C) (FIM): 4 Scootin Rollin Supine to/from Sit: 5 Sit to/from Stand: 4 Bed to/from Chair: 4 Weight Bearing Right Lower Extremity: Right Weight Bearing/Tolerated Left Lower Extremity: Left Weight Bearing/Tolerated Gait Training Does the Patient Walk?: Yes Gait (FIM): 2 Distance (FIM): 7=837-58 ft (50ft,110ft,25ft) Gait Level of Assist: 4 Gait Persons Needed: 1 Gait Assistive Device: FWW narrow ANTONI, needs cues to steer clear on left as he gets near to objects on left with FWW and w/c Wheelchair Training Does the Pt Use a Wheelchair?: Yes Wheelchair (FIM): 5 Wheelchair Distance: 3=150 ft (175) Wheelchair Level of Assist: 5 Type of Wheelchair: Manual verbal guidance around objects on left Exercises Seated Therapy Exercises: Ankle pumps, Sit to stand, Long arc quads, Hip flexion Seated Reps: 10 NuStep Minutes: 10 NuStep Workload: 4 Treatments mod to max assist to [place] brief, pants and tshirt and shoes and socks Assessment Current Status: Good Progress gives full effort, good support from PT Short Term Goals Short Term Goals Time Frame: Jul 29, 2018 Transfers (B,C,W/C) (FIM): 5 Gait (FIM): 2 Distance (FIM): 1=up to 49 ft Gait Assistive Device: FWW Wheelchair Distance: 200' PT Fpc Goals Fpc Goals PT Farm Products Shipper Goals Time Frame: Aug 12, 2018 Transfers (B,C,W/C) (FIM): 6 Sit to Lying (QC): 6 Lying-Sitting on Side/Bed(QC): 6 Sit to Stand (QC): 6 Rollin Roll Left to Right (QC): 6 Chair/[id number] Xfer(QC): 6 Car Transfer (QC): 5 Does the Patient Walk: Yes Gait (FIM): 5 (household) Gait distance (FIM): 4=139-46 ft Walk 10 feet (QC): 6 Walk 10ft-Uneven Surface(QC): 6 Walk 50ft with 2 Turns (QC): 6 Walk 150 ft (QC): 88 Gait Level of Assist: 6 Gait Assistive Device: FWW Does the Pt use WC or Scooter?: Yes Wheelchair (FIM): 6 Wheelchair distance (FIM): 3=150 ft Wheel 50 feet with 2 turns (QC: 6 Stairs (FIM): 88 1 Step (curb) (QC): 88 4 Steps (QC): 88 12 Steps (QC): 88 Picking up an Object (QC): 88 PT Plan Treatment/Plan Treatment Plan: Continue Plan of Care Treatment Plan: Bed Mobility, Education, Functional Activity [place], Functional Strength, Group Therapy, Gait, Safety, Therapeutic Exercise, Transfers Treatment Duration: Aug 12, 2018 Frequency: At least 5 of 7 days/Wk (IRF) Estimated Hrs Per Day: 1.5 hours per day Patient and/or Family Agrees t: Yes Safety Risks/Education Patient Education: Gait Training, Transfer Techniques, Correct Positioning, W/ C Management, Disease Process, Safety Issues Teaching Recipient: Patient Teaching Methods: Demonstration, Discussion Response to Teaching: Verbalize Understanding, Return Demonstration, Reinforcement Needed Time/GCodes Time In: 800 Time Out: 900 Total Billed Treatment Time: 60 Total Billed Treatment 1,FA25m,GT15m,EX20m G Codes Necessary: TOM [place]apleton ASSISTANT WOMEN'S SOCCER COACH Aug 02, 2018 08:56
[2018-08-02 09:00] VITALS: BP 115/59
[2018-08-02] MEDS: PANTOPRAZOLE 2 MG/ML LIQUID 200 ML (PROTONIX) PEG SCH ×3 (09:00)
[2018-08-02] MEDS: MENTHOL/ZINC OXIDE (CALMOSEPTINE) 113 GM TUBE TOP SCH ×2 (09:00→20:36)
[2018-08-02] MEDS: LACTOBACILLUS ACIDOPHILUS (PROBIOTIC) CAPSULE PO SCH ×2 (09:03→20:26)
[2018-08-02] MEDS: guaiFENesin/DM (ROBITUSSIN DM) 10 ML UDC PO SCH ×3 (09:03→20:26)
[2018-08-02] MEDS: MEXILETINE 150 MG (MEXITIL) CAPSULE PO SCH ×3 (09:03→22:21)
[2018-08-02] MEDS: AMIODARONE 200 MG (CORDARONE) TAB PO SCH (09:03)
[2018-08-02] MEDS: DOCUSATE SODIUM 10 MG/ML 10 ML UDC (COLACE) PEG SCH ×2 (09:03→20:26)
[2018-08-02] MEDS: PHENAZOPYRIDINE 100 MG (PYRIDIUM) TABLET PO SCH ×3 (09:03→18:31)
[2018-08-02] MEDS: DIGOXIN 0.125 MG (LANOXIN) TAB PO SCH (09:04)
[2018-08-02] MEDS: ASPIRIN 81 MG CHEW (CHILDREN'S ASA) PO SCH (09:04)
[2018-08-02] MEDS: meTOprolol TARTRATE 25 MG (LOPRESSOR) TABLET PO SCH ×2 (09:04→20:26)
[2018-08-02 09:40] LABS: HEMOGLOBIN 10.2 G/DL (13.3-17.7); MEAN PLATELET VOLUME 10.9 FL (7.4-10.4); RED BLOOD COUNT 3.36 10^6/uL (4.35-5.85); RED CELL DISTRIBUTION WIDTH 19.9 % (10.0-14.5); WHITE BLOOD COUNT 7.1 10^3/uL (4.3-11.0)
--- NOTE | 2018-08-02 09:57 | Occupational Ther Daily Note ---
OT Current Status-Daily Note Subjective Pt alert, sitting in recliner. Nrsg present in room. Pt agrees to therapy. Mental Status/Objective Patient Orientation: Person, Place, Time, Situation Therapy Code Descriptions/Definitions Functional [place] Measure: 0=Not Assessed/NA 4=Minimal Assistance 1=Total Assistance 5=Supervision or Setup 2=Maximal Assistance 6=Modified [place] 3=Moderate Assistance 7=Complete [place] Attachments: IV, Oxygen, PEG Tube ADL-Treatment Pt declined shower, agrees to sponge bath. Pt's stated that the pt had clean clothes. Pt set up for bathing upper body, LE's except feet and pieter area (CGA), all with encouragement to do by self. Assist to cleanse buttocks in standing. Pt doffed shirt by self then when donning pt was putting on backwards assist to turn shirt around then pt donned by self. In standing pt was able to hike pants up/down over buttocks with CGA. Pt then ambulated to bathroom for toileting. Pt completed toilet transfer using FWW, BSC and grabbars with CGA. Assist to cleanse buttocks in standing and pt hiked pants with CGA. Pt ambulated back to recliner. Therapy Code Descriptions/Definitions Functional [place] Measure: 0=Not Assessed/NA 4=Minimal Assistance 1=Total Assistance 5=Supervision or Setup 2=Maximal Assistance 6=Modified [place] 3=Moderate Assistance 7=Complete [place] Therapy Quality Codes: 6 Independent with activity with or without an assistive device 5 Patient requires set up or clean up by helper. Patient completes activity by themselves 4 Supervision or touching assist (CGA). [place] provide cues , steadying assist 3 The helper provides less than half the effort to complete the activity 2 The helper provides more than half the effort to complete the activity 1 Dependent. The helper does all the effort to complete an activity 7 Patient refused to complete or attempt activity 9 The patient did not perform the activity before the current illness or injury 88 Not attempted due to Medical conditions or safety concerns Bathing (FIM): 3 Bathing Location: L Arm, R Arm, L Upper Leg, R Upper Leg, Chest, Abdomen, Perineal Area Shower/Bathe Self (QC): 3 Upper Body (FIM): 5 Upper Body Dressing (QC): 5 Lower Body Dressing (FIM): 3 (Assist to don/doff shoes/socks. Assist to thread over feet.) Lower Body Dressing (QC): 3 On/Off Footwear (QC): 3 Toileting (FIM): 2 Toileting Hygiene (QC): 2 Toilet/Commode Transfer (FIM): 4 Toilet Transfer (QC): 4 Other Treatment Pt completed UE exercise with medium resistance theraband and light resistance therapy sponge, 1 set 20 reps each. After therapy, pt sitting in recliner with call light/phone in reach. All needs met in room. OT Short Term Goals Short Term Goals Time Frame: Jul 29, 2018 Eating(FIM): 4 Grooming(FIM): 3 Upper Body Dressing(FIM): 3 Lower Body Dressing(FIM): 3 Toileting(FIM): 4 Transfers (B,C,W/C) (FIM): 5 Toilet/Commode Transfer(FIM): 4 Additional Short Term Goals: 1-Demonstrate ADL Tasks, 2-Verbalize Understanding , 3-ImproveStrength/[place] 1=Demonstrate adherence to instructed precautions during ADL tasks. 2=Patient will verbalize/demonstrate understanding of assistive devices/ modifications for ADL. 3=Patient will improve strength/tolerance for activity to enable patient to perform ADL's. OT Shelter Goals Marketing Content Specialist Goals Time Frame: Aug 19, 2018 Eating (FIM): 5 Eating (QC): 5 Groomin Oral Hygiene (QC): 4 Bathing(FIM): 3 Shower/Bathe Self (QC): 3 Upper Body Dressing(FIM): 5 Upper Body Dressing (QC): 4 Lower Body Dressing(FIM): 4 Lower Body Dressing (QC): 4 On/Off Footwear (QC): 4 Toileting(FIM): 5 Toileting Hygiene (QC): 5 Transfers (B,C,W/C) (FIM): 5 Toilet/Commode Transfer(FIM): 5 Toilet/Commode Transfer (QC): 4 Additional Goals: 1-Demonstrate ADL Tasks, 2-Verbalize Understanding, 3- ImproveStrength/[place] 1=Demonstrate adherence to instructed precautions during ADL tasks. 2=Patient will verbalize/demonstrate understanding of assistive devices/ modifications for ADL. 3=Patient will improve strength/tolerance for activity to enable patient to perform ADL's. OT Education/Plan Discharge Recommendations Plan/Recommendations: Continue POC Treatment Plan/Plan of Care Patient would benefit from OT for education, treatment and training to promote independence in ADL's, mobility, safety and/or upper extremity function for ADL' s. Plan of Care: ADL Retraining, Functional Mobility, Group Exercise/Act as Ind, UE Funct Exercise/Act Treatment Duration: Aug 19, 2018 Frequency: At least 5 of 7 days/Wk (IRF) Estimated Hrs Per Day: 1.5 hours per day Agreement: Yes Rehab Potential: Fair Time/GCodes Start Time: 09:00 Stop Time: 10:15 Total Time Billed (hr/min): 75 Billed Treatment Time 1 visit-ADL 4 (60 min) EX 1 (15 min) AYLA VENEGAS Aug 02, 2018 09:57
[2018-08-02 10:05] LABS: ALANINE AMINOTRANSFERASE 17 U/L (0-55); ALBUMIN 3.4 GM/DL (3.2-4.5); ALKALINE PHOSPHATASE 92 U/L (40-136); BILIRUBIN,TOTAL 0.7 MG/DL (0.1-1.0); BUN/CREATININE RATIO 22; CALCIUM 9.6 MG/DL (8.5-10.1); CARBON DIOXIDE 30 MMOL/L (21-32); CHLORIDE 99 MMOL/L (98-107); CREATININE SERUM 0.98 MG/DL (0.60-1.30); GFR ESTIMATED > 60; GLUCOSE 102 MG/DL (70-105); POTASSIUM 4.7 MMOL/L (3.6-5.0); SODIUM 138 MMOL/L (135-145)
--- NOTE | 2018-08-02 10:57 | Physical Therapy Daily Note ---
PT Daily Note-Current Subjective Pt. and present. Pt. agrees to walk and exercise. and pt. state they would like to see if pt. can be off O2 Pain Location: No Pain Reported Mental Status Patient Orientation: Person, Place Attachments: Oxygen (2L) Transfers Therapy Code Descriptions/Definitions Functional [place] Measure: 0=Not Assessed/NA 4=Minimal Assistance 1=Total Assistance 5=Supervision or Setup 2=Maximal Assistance 6=Modified [place] 3=Moderate Assistance 7=Complete [place] Therapy Quality Codes: 6 Independent with activity with or without an assistive device 5 Patient requires set up or clean up by helper. Patient completes activity by themselves 4 Supervision or touching assist (CGA). [place] provide cues , steadying assist 3 The helper provides less than half the effort to complete the activity 2 The helper provides more than half the effort to complete the activity 1 Dependent. The helper does all the effort to complete an activity 7 Patient refused to complete or attempt activity 9 The patient did not perform the activity before the current illness or injury 88 Not attempted due to Medical conditions or safety concerns sit to stand x 5 trials all SBA Weight Bearing Right Lower Extremity: Right Weight Bearing/Tolerated Left Lower Extremity: Left Weight Bearing/Tolerated Gait Training Gait Assistive Device: FWW FWW SBA to CGA 75ft, 50 ft on room air with sats 96% Exercises Supine Ex: Ankle pumps, Quad Set, Heel Slides, Scooting, Straight leg raise, Hip abd/add Supine Reps: 15 Seated Therapy Exercises: Long arc quads, Hip flexion Seated Reps: 15 Standing: Hip Abduction, Marching Standing Reps: 15 Assessment Current Status: Good Progress This RADIO TELEVISION ANNOUNCER communicated with nursing regarding possible titration or trial off O2. On 2 L at rest sats 96%, on room air at rest sats 96%. gait on room air 75 ft and 50 ft O2 sats at 96%, no c/o SOB, O2 insitu after Rx at 2 L with meneses at hand and findings reported to nurse PT Short Term Goals Short Term Goals Time Frame: Jul 29, 2018 Transfers (B,C,W/C) (FIM): 5 Gait (FIM): 2 Distance (FIM): 1=up to 49 ft Gait Assistive Device: FWW Wheelchair Distance: 200' PT Mcfp Goals Mcfp Goals PT Mcfp Goals Time Frame: Aug 12, 2018 Transfers (B,C,W/C) (FIM): 6 Sit to Lying (QC): 6 Lying-Sitting on Side/Bed(QC): 6 Sit to Stand (QC): 6 Rollin Roll Left to Right (QC): 6 Chair/Gew-dh-Kpjyd Xfer(QC): 6 Car Transfer (QC): 5 Does the Patient Walk: Yes Gait (FIM): 5 (household) Gait distance (FIM): 2=872-62 ft Walk 10 feet (QC): 6 Walk 10ft-Uneven Surface(QC): 6 Walk 50ft with 2 Turns (QC): 6 Walk 150 ft (QC): 88 Gait Level of Assist: 6 Gait Assistive Device: FWW Does the Pt use WC or Scooter?: Yes Wheelchair (FIM): 6 Wheelchair distance (FIM): 3=150 ft Wheel 50 feet with 2 turns (QC: 6 Stairs (FIM): 88 1 Step (curb) (QC): 88 4 Steps (QC): 88 12 Steps (QC): 88 Picking up an Object (QC): 88 PT Plan Treatment/Plan Treatment Plan: Continue Plan of Care Treatment Plan: Bed Mobility, Education, Functional Activity [place], Functional Strength, Group Therapy, Gait, Safety, Therapeutic Exercise, Transfers Treatment Duration: Aug 12, 2018 Frequency: At least 5 of 7 days/Wk (IRF) Estimated Hrs Per Day: 1.5 hours per day Patient and/or Family Agrees t: Yes Safety Risks/Education Patient Education: Gait Training, Transfer Techniques, Correct Positioning, Disease Process, Safety Issues Teaching Recipient: Patient Teaching Methods: Demonstration, Discussion Response to Teaching: Verbalize Understanding, Return Demonstration, Reinforcement Needed Time/GCodes Time In: 1030 Time Out: 1100 Total Billed Treatment Time: 30 Total Billed Treatment 1,GT15,EX15 G Codes Necessary: TOM Stapleton RADIO TELEVISION ANNOUNCER Aug 02, 2018 10:57
[2018-08-02] MEDS: CHOLESTYRAMINE 4 GM (QUESTRAN LITE, PREVALITE) PKT PO SCH ×2 (11:00→23:12)
--- NOTE | 2018-08-02 13:37 | Speech Therapy Daily Note ---
Speech Daily Progress Note Subjective Date Seen by Provider: Aug 02, 2018 Time Seen by Provider: 00:30 Patient sitting in his recliner resting. His was present for the entire session. Objective Patient completed pharyngeal exercises with 80% accuracy given minimal cues. Assessment Assessment Current Status: Good Progress Treatment Plan Continue Plan of Care Communication Comprehension: 2 Expression: 2 Social Cognition Social Interaction: 2 Problem Solvin Memory: 2 Speech Short Term Goals Short Term Goals Short Term Goals 1) Patient will be able to recall new information with 80% or greater given minimal cues. 2) Patient will be able to name items/pictures presented with 80% or greater given minimal cues. 3) Patient will utilize compensatory strategies for safety within his room with 80% or greater given minimal cues. 4) Patient will complete pharyngeal exercises 5x/week in order to return to PO status. 5) Patient will tolerate trials of least restrictive diet level without s/s of aspiration. Speech Assisted Goals Assistant Womens Volleyball Coach Goals 1) Patient will improve memory, problem solving and auditory processing in order to return safely home. 2) Patient will demonstrate a safe swallow function for oral intake for maintaining nutrition/hydration. Speech-Plan Patient/Family Goals Patient/Family Goals: Patient is scheduled to return home on 08/05/18 with his and caregiver. Treatment Plan Speech Therapy Treatment Plan: Continue Plan of Care Patient has progressed well with skilled ST services. Treatment Duration: Aug 05, 2018 Frequency: 5 times per week Estimated Hrs Per Day: .5 hour per day Rehab Potential: Fair Barriers to Learning: Patient has decreased cognitive function. Pt/Family Agrees to Plan: Yes Safety Risks/Education Teaching Recipient: Patient, Significant Other Teaching Methods: Discussion Response to Teaching: Verbalize Understanding Education Topics Provided: Safety Time Speech Therapy Time In: 13:00 Speech Therapy Time Out: 13:30 Total Billed Time: 30 Billed Treatment Time 1, JULIA Carter Aug 02, 2018 13:37
--- NOTE | 2018-08-02 14:19 | NUR ---
This entry writer performed first peg tube medication and feeding administration education session with patient's , Veronica. Veronica was able to perform all hands on tasks well with step by step verbal instructions by this entry writer. Veronica would benefit from a written, laminated instructional page for reminder of how much water to flush and when. Some difficulty crushing medications, but persistent in obtaining goal to proper consistency. Discussed checking for residual volume, pushing all back in to maintain pH balance, holding for a short time and checking again to avoid over filling, importance of flushing before and after medications and feedings, crushing medications to fine consistency and dissolving in water, also discussed using clean technique to perform administrations. No questions at completion of feeding. Will continue to have Veronica perform task at each administration to promote success at home.
[2018-08-02 14:30] VITALS: BP 116/56
--- NOTE | 2018-08-02 14:39 | Cardiology Progress Note ---
Subjective Date Seen by Provider: Aug 02, 2018 Time Seen by Provider: 14:38 Subjective/Events-last exam patient is sitting in a chair, feeling better. No new complaint Review of Systems General: No Chills, No Night Sweats, No Fatigue, No Malaise, No Appetite, No Other HEENT: No Head Aches, No Visual Changes, No Eye Pain, No Ear Pain, No Dysphasia , No Sinus Congestion, No Post Nasal Drip, No Sore Throat, No Other Pulmonary: No Dyspnea, No Cough, No Pleuritic Chest Pain, No Other Cardiovascular: No: Chest Pain, Palpitations, Orthopnea, Paroxysmal Noc. Dyspnea, Edema, Lt Headedness, Other Objective-Cardiology Exam Last Set of Vital Signs Vital Signs 08/02/18 08/02/18 08/02/18 08/02/18 05:04 07:50 08:00 09:00 Temp 98.0 Pulse 90 Resp 18 B/P (MAP) 115/59 (77) Pulse Ox 95 O2 Delivery Nasal Cannula O2 Flow Rate 2.00 Capillary Refill : I&O Intake and Output 08/02/18 00:00 Intake Total 2940 ml Output Total 950 ml Balance 1990 ml Intake Oral 0 ml Tube Feeding 1440 ml Other 1500 ml Output Urine Total 950 ml # Urine Diapers 5 General: Alert, Oriented X3, Cooperative, No Acute Distress HEENT: Atraumatic, PERRLA, EOMI, Mucous Memb Moist/[place] Neck: Supple, No JVD Lungs: Other (coarse breath sounds) Heart: Regular Rate, Normal S1, Normal S2 Abdomen: Normal Bowel Sounds, Soft, No Tenderness, Other (Peg Tube in place) Extremities: No Clubbing, Other (+1 edema BLE) Skin: No Rashes Neuro: Normal Speech, Other (Confusion strength 4/5 LES 4-/5 Upper limbs) Psych/Mental Status: Mental Status NL, Mood NL, Other (subtle memory loss) Results Lab Laboratory Tests 08/02/18 09:30 A/P-Cardiology Admission Diagnosis Debility CAD HTN Chronic atrial fibrillation Assessment/Plan Debility, reporting improvement, managed by primary care physician Anemia, status post transfusion, EGD showed esophagitis and gastritis, followed and managed by primary care physician Status post respiratory failure, pneumonia, silent aspiration, on Antibiotics, followed by primary care physician Urosepsis, history of kidney stone and nephrostomy tube, on antibiotics and managed by primary care team Silent aspiration, status post feeding tube placement Coronary artery disease, history of CABG done in the remote past. Patient had a stent done in December 2001 using MultiLink 2.518 mm to the proximal right coronary artery, 2017 had a Cypher stent 3.530 mm to the proximal and mid circumflex artery. Has been followed and managed by primary shrub grower Dr. Mendez in [place]. Continue to follow History of congestive heart failure, reported ejection fraction 54 percent. MPI in 2013, continue to monitor Paroxysmal atrial fibrillation maintained on amiodarone, intolerant to oral anticoagulation secondary to recurrent nosebleed and anemia, Patient is maintained on Cardizem, Amiodarone,Lopressor and Digoxin, continue to monitor, no changes are recommended Patient has been maintained on mexiletine. Probably due to ventricular fibrillation and history of shock from his defibrillator, known to have [facility] [facility] ICD implanted by Dr. vidales in [place]. Continue on Mexiletine COPD, chronic dyspnea, followed by primary care physician Chronic pedal edema,continue to diurese and monitor electrolytes Diabetes mellitus, followed and managed by primary care physician Clinical Quality Measures DVT/VTE Risk/Contraindication: Risk Factor Score Per Nursin RFS Level Per Nursing on Admit: 4+=Very High JOHN ALFARO MD Aug 02, 2018 14:39
--- NOTE | 2018-08-02 15:59 | NUR ---
HEALTH SERVICES RN sent preliminary information for tube feeding product to [facility] to anticipate discharge on Sunday. DME reports of current formula Jevity 1.5; however, dietitianMindi has improved Osmolite 1.5 for short-term usage. HEALTH SERVICES RN communicated this information to Dr. Flores to request a walker. RN reports spouse completed tube feeding administration and performed well. Patient will proceed with discharge on Sunday.
[2018-08-02 18:00] VITALS: BP 120/58
--- NOTE | 2018-08-02 19:10 | NUR ---
report received from SHERRY ROSS, assume care of pt
--- NOTE | 2018-08-02 20:00 | NUR ---
assessments & interventions completed, see assessments & interventions, at bedside, up in chair, chair alarm on
[2018-08-02 20:21] VITALS: BP 162/84
[2018-08-02] MEDS: ATORVASTATIN 40 MG (LIPITOR) TABLET PO SCH (20:26)
--- NOTE | 2018-08-02 20:26 | NUR ---
asked did she want to crush pt meds & give to him per g-tube stated she had done that today so she would let this nurse do it, meds crushed & given per g-tube, back to bed with 1 person assist & walker, bed alarm on
--- NOTE | 2018-08-02 22:00 | NUR ---
mexiletine 150 & Cardizem 60mg given at this time crushed in water & given per g-tube due to Questran due to 2299, gastric residual 18ml, tube feeeding jevity 1.5 1 can given, hob elevated to 90 degrees
[2018-08-02 22:18] VITALS: BP 148/80
--- NOTE | 2018-08-03 02:00 | NUR ---
gastric residual 4ml tube feeding 1.5 jevity 1 can given per g-tube
[2018-08-03] MEDS: DILTIAZEM 60 MG (CARDIZEM) TAB PO SCH ×3 (05:53→22:13)
[2018-08-03 06:00] VITALS: BP 104/69
--- NOTE | 2018-08-03 06:00 | NUR ---
gastric residual 0, tube feeding jevity 1.5 1 1/2 cans given per g-tube
[2018-08-03] MEDS: KCL 20 MEQ POWDER FOR ORAL SOLUTION PEG SCH (06:56)
[2018-08-03] MEDS: FUROSEMIDE 20 MG (LASIX) TAB PO SCH ×2 (06:56→17:57)
--- NOTE | 2018-08-03 07:28 | NUR ---
report given to TRAVIS ROSS
--- NOTE | 2018-08-03 08:19 | Physical Therapy Daily Note ---
PT Daily Note-Current Subjective Agreeable to PT. Pt and spouse report they are happy to be going home on and Sunday and feel ready. Transfers Therapy Code Descriptions/Definitions Functional [place] Measure: 0=Not Assessed/NA 4=Minimal Assistance 1=Total Assistance 5=Supervision or Setup 2=Maximal Assistance 6=Modified [place] 3=Moderate Assistance 7=Complete [place] Therapy Quality Codes: 6 Independent with activity with or without an assistive device 5 Patient requires set up or clean up by helper. Patient completes activity by themselves 4 Supervision or touching assist (CGA). [place] provide cues , steadying assist 3 The helper provides less than half the effort to complete the activity 2 The helper provides more than half the effort to complete the activity 1 Dependent. The helper does all the effort to complete an activity 7 Patient refused to complete or attempt activity 9 The patient did not perform the activity before the current illness or injury 88 Not attempted due to Medical conditions or safety concerns Transfers (B, C, W/C) (FIM): 6 Supine to/from Sit: 6 Sit to/from Stand: 6 Pt able to to get out of bed with extra time but no assist. Sit to stand with extra time but no assist. Weight Bearing Right Lower Extremity: Right Weight Bearing/Tolerated Left Lower Extremity: Left Weight Bearing/Tolerated Gait Training Does the Patient Walk?: Yes Gait (FIM): 5 (household distance) Distance (FIM): 3=534-01 ft Distance: 50 ft x 3 Gait Assistive Device: FWW Mod indep with gait short distances. Treatments Pt up in chair post treatment with needs met and chair alarm activated. Assessment Current Status: Good Progress Transfers and gait improving; mental clarity improved as well. Making good progress towards goals PT Short Term Goals Short Term Goals Time Frame: Jul 29, 2018 Transfers (B,C,W/C) (FIM): 5 (met) Gait (FIM): 2 (met) Distance (FIM): 1=up to 49 ft Gait Assistive Device: FWW Wheelchair Distance: 200' PT Clothes Separator Goals Clothes Separator Goals PT Clothes Separator Goals Time Frame: Aug 12, 2018 Transfers (B,C,W/C) (FIM): 6 Sit to Lying (QC): 6 Lying-Sitting on Side/Bed(QC): 6 Sit to Stand (QC): 6 Rollin Roll Left to Right (QC): 6 Chair/Fgd-cz-Ctbcm Xfer(QC): 6 Car Transfer (QC): 5 Does the Patient Walk: Yes Gait (FIM): 5 (household) Gait distance (FIM): 9=008-23 ft Walk 10 feet (QC): 6 Walk 10ft-Uneven Surface(QC): 6 Walk 50ft with 2 Turns (QC): 6 Walk 150 ft (QC): 88 Gait Level of Assist: 6 Gait Assistive Device: FWW Does the Pt use WC or Scooter?: Yes Wheelchair (FIM): 6 Wheelchair distance (FIM): 3=150 ft Wheel 50 feet with 2 turns (QC: 6 Stairs (FIM): 88 1 Step (curb) (QC): 88 4 Steps (QC): 88 12 Steps (QC): 88 Picking up an Object (QC): 88 PT Plan Problem List Problem List: Activity Tolerance, Functional Strength, Safety Treatment/Plan Treatment Plan: Continue Plan of Care Treatment Plan: Bed Mobility, Education, Functional Activity Mckin[place], Functional Strength, Group Therapy, Gait, Safety, Therapeutic Exercise, Transfers Treatment Duration: Aug 12, 2018 Frequency: At least 5 of 7 days/Wk (IRF) Estimated Hrs Per Day: 1.5 hours per day Patient and/or Family Agrees t: Yes Safety Risks/Education Patient Education: Transfer Techniques, Safety Issues Teaching Recipient: Patient Teaching Methods: Discussion Response to Teaching: Return Demonstration Discharge Recommendations Therapy D/C Recommendations: Physical Therapy Home Care Time/GCodes Time In: 715 Time Out: 745 Total Billed Treatment Time: 30 Total Billed Treatment visit GT 30 AYLA PEREZ PT Aug 03, 2018 08:19
[2018-08-03 08:30] VITALS: BP 136/89
[2018-08-03] MEDS: guaiFENesin/DM (ROBITUSSIN DM) 10 ML UDC PO SCH ×3 (08:44→20:25)
[2018-08-03] MEDS: DOCUSATE SODIUM 10 MG/ML 10 ML UDC (COLACE) PEG SCH ×2 (08:44→20:44)
[2018-08-03] MEDS: MEXILETINE 150 MG (MEXITIL) CAPSULE PO SCH ×3 (08:44→22:14)
[2018-08-03] MEDS: ASPIRIN 81 MG CHEW (CHILDREN'S ASA) PO SCH (08:45)
[2018-08-03] MEDS: DIGOXIN 0.125 MG (LANOXIN) TAB PO SCH (08:45)
[2018-08-03] MEDS: meTOprolol TARTRATE 25 MG (LOPRESSOR) TABLET PO SCH ×2 (08:45→20:25)
[2018-08-03] MEDS: AMIODARONE 200 MG (CORDARONE) TAB PO SCH (08:45)
[2018-08-03] MEDS: PHENAZOPYRIDINE 100 MG (PYRIDIUM) TABLET PO SCH ×3 (08:45→17:57)
[2018-08-03] MEDS: LACTOBACILLUS ACIDOPHILUS (PROBIOTIC) CAPSULE PO SCH ×2 (08:45→20:25)
[2018-08-03] MEDS: RT-ALBUTEROL/IPRATROPIUM 3 ML (DUONEB) VIAL INH SCH ×4 (08:52→19:28)
[2018-08-03] MEDS: PANTOPRAZOLE 2 MG/ML LIQUID 200 ML (PROTONIX) PEG SCH ×3 (08:55)
[2018-08-03] MEDS: MENTHOL/ZINC OXIDE (CALMOSEPTINE) 113 GM TUBE TOP SCH ×2 (09:07→20:25)
--- NOTE | 2018-08-03 10:31 | PM&R Progress Note ---
Subjective This was a face to face visit with the patient. Date Seen by Provider: Aug 03, 2018 Time Seen by Provider: 10:00 Subjective/Events-last exam Patient was seen in his room with at bedside Patient doing well Participating in all therapies Strictly nothing by mouth due to aspiration Lungs are extremely clear today Maintain on breathing treatments Oxygen is maintained Bolus PEG tube feedings will be provided by the and she has been educated Discharge is planned for Sunday Bowels are moving Denies any pain Review of Systems General: Fatigue Neurological: Weakness Objective Physician Exam Last Set of Vital Signs Vital Signs Date Time Temp Pulse Resp B/P (MAP) Pulse Ox O2 Delivery O2 Flow Rate FiO2 08/03/18 09:18 97 Nasal Cannula 2.00 08/03/18 06:00 98.1 90 20 104/69 (81) Capillary Refill : I&O Intake and Output 08/03/18 00:00 Intake Total 2440 ml Output Total 1450 ml Balance 990 ml Intake Oral 0 ml Tube Feeding 1440 ml Other 1000 ml Output Urine Total 1450 ml # Voids 3 # Urine Diapers 5 General: Alert, Oriented X3, Cooperative, No Acute Distress HEENT: Atraumatic, PERRLA, EOMI, Mucous Memb Moist/[place] Neck: Supple, No JVD Lungs: Clear to Auscultation, Normal Air Movement, Other (coarse breath sounds are resolved today) Heart: Regular Rate, Normal S1, Normal S2 Abdomen: Normal Bowel Sounds, Soft, No Tenderness, Other (Peg Tube in place) Extremities: No Clubbing, Other (+1 edema BLE) Skin: No Rashes Neuro: Normal Speech, Other (Subtle confusion, strength 4/5 LES 4-/5 Upper limbs) Psych/Mental Status: Mental Status NL, Mood NL, Other (subtle memory loss) Results Lab Data Laboratory Tests 08/01/18 06:30: White Blood Count 7.4, Red Blood Count 2.42L, Hemoglobin 7.2L, Hematocrit 24L, Mean Corpuscular Volume 98, Mean Corpuscular Hemoglobin 30, Mean Corpuscular Hemoglobin Concent 31L, Red Cell Distribution Width 20.2H, Platelet Count 156, Mean Platelet Volume 11.2H, Sodium Level 138, Potassium Level 4.4, Chloride Level 100, Carbon Dioxide Level 30, Anion Gap 8, Blood Urea Nitrogen 17, Creatinine 0.86, Estimat Glomerular Filtration Rate > 60, BUN/Creatinine Ratio 20, Glucose Level 89, Calcium Level 9.0, Corrected Calcium 9.7, Total Bilirubin 0.4, Aspartate Amino Transf (AST/SGOT) 20, Alanine Aminotransferase (ALT/SGPT) 16, Alkaline Phosphatase 91, Total Protein 7.2, Albumin 3.1L 08/01/18 13:35: Ferritin 429.3H 08/02/18 09:30: White Blood Count 7.1, Red Blood Count 3.36L, Hemoglobin 10.2#L, Hematocrit 32L , Mean Corpuscular Volume 96, Mean Corpuscular Hemoglobin 30, Mean Corpuscular Hemoglobin Concent 32, Red Cell Distribution Width 19.9H, Platelet Count 159, Mean Platelet Volume 10.9H, Sodium Level 138, Potassium Level 4.7, Chloride Level 99, Carbon Dioxide Level 30, Anion Gap 9, Blood Urea Nitrogen 22H, Creatinine 0.98, Estimat Glomerular Filtration Rate > 60, BUN/Creatinine Ratio 22, Glucose Level 102, Calcium Level 9.6, Corrected Calcium 10.1, Total Bilirubin 0.7, Aspartate Amino Transf (AST/SGOT) 23, Alanine Aminotransferase ( ALT/SGPT) 17, Alkaline Phosphatase 92, Total Protein 8.0, Albumin 3.4 Progress Toward Rehab Goals Continue therapies Discharge plan for Sunday PEG tube feedings will be performed by at home Will need home health services Monitor closely Follow-up with Dr. Elliott Assessment/Plan Assessment and Plan (1) Debility Status: Acute (2) GI bleed Qualifiers: Qualified Codes: K92.2 - Gastrointestinal hemorrhage, unspecified Status: Chronic (3) MRSA pneumonia Qualifiers: Qualified Codes: J15.212 - Pneumonia due to methicillin resistant Staphylococcus aureus Status: Resolved (4) Pseudomonas urinary tract infection Status: Resolved (5) Pyelonephritis Status: Resolved (6) Renal calculus, left Status: Resolved (7) Acute renal insufficiency Status: Resolved (8) Diabetes mellitus, type 2 Qualifiers: Qualified Codes: E11.59 - Type 2 diabetes mellitus with other circulatory complications; Z79.4 - custodial (current) use of insulin Status: Chronic (9) Congestive heart failure Qualifiers: Qualified Codes: I50.9 - Heart failure, unspecified Status: Chronic (10) COPD (chronic obstructive pulmonary disease) Qualifiers: Qualified Codes: J44.9 - Chronic obstructive pulmonary disease, unspecified Status: Chronic (11) Paroxysmal atrial fibrillation Status: Chronic (12) CAD (coronary artery disease) Qualifiers: Qualified Codes: I25.10 - Atherosclerotic heart disease of [place] coronary artery without angina pectoris Status: Chronic (13) ICD (implantable cardioverter-defibrillator) in place Status: Chronic (14) Melena Status: Acute (15) Diarrhea Qualifiers: Qualified Codes: R19.7 - Diarrhea, unspecified Status: Acute (16) Anemia Qualifiers: Qualified Codes: D50.0 - Iron deficiency anemia secondary to blood loss ( chronic) Status: Acute (17) At risk for aspiration Status: Chronic (18) PEG (percutaneous endoscopic gastrostomy) status Status: Chronic (19) Rales Status: Chronic (20) Transfusion of blood during current hospitalization Status: Acute Co-Morbidities that are continuing to impact the rehab process: see above BRIGITTE LEMA DO Aug 03, 2018 10:31
[2018-08-03] MEDS: CHOLESTYRAMINE 4 GM (QUESTRAN LITE, PREVALITE) PKT PO SCH ×2 (10:42→23:07)
--- NOTE | 2018-08-03 11:47 | Cardiology Progress Note ---
Subjective Date Seen by Provider: Aug 03, 2018 Time Seen by Provider: 11:47 Subjective/Events-last exam patient is sitting in a chair, feeling better, reporting improvement Review of Systems General: No Chills, No Night Sweats; Fatigue; No Malaise, No Appetite, No Other HEENT: No Head Aches, No Visual Changes, No Eye Pain, No Ear Pain, No Dysphasia , No Sinus Congestion, No Post Nasal Drip, No Sore Throat, No Other Pulmonary: Dyspnea; No Cough, No Pleuritic Chest Pain, No Other Cardiovascular: No: Chest Pain, Palpitations, Orthopnea, Paroxysmal Noc. Dyspnea, Edema, Lt Headedness, Other Objective-Cardiology Exam Last Set of Vital Signs Vital Signs 08/03/18 08/03/18 06:00 09:18 Temp 98.1 Pulse 90 Resp 20 B/P (MAP) 104/69 (81) Pulse Ox 97 O2 Delivery Nasal Cannula O2 Flow Rate 2.00 Capillary Refill : I&O Intake and Output 08/03/18 00:00 Intake Total 2440 ml Output Total 1450 ml Balance 990 ml Intake Oral 0 ml Tube Feeding 1440 ml Other 1000 ml Output Urine Total 1450 ml # Voids 3 # Urine Diapers 5 General: Alert, Oriented X3, Cooperative, No Acute Distress HEENT: Atraumatic, PERRLA, EOMI, Mucous Memb Moist/[place] Neck: Supple, No JVD Lungs: Other (coarse breath sounds) Heart: Regular Rate, Normal S1, Normal S2 Abdomen: Normal Bowel Sounds, Soft, No Tenderness, Other (Peg Tube in place) Extremities: No Clubbing, Other (+1 edema BLE) Skin: No Rashes Neuro: Normal Speech, Other (Confusion strength 4/5 LES 4-/5 Upper limbs) Psych/Mental Status: Mental Status NL, Mood NL, Other (subtle memory loss) A/P-Cardiology Admission Diagnosis Debility CAD HTN Chronic atrial fibrillation Assessment/Plan Debility, reporting improvement, managed by primary care physician Anemia, status post transfusion, EGD showed esophagitis and gastritis, followed and managed by primary care physician Status post respiratory failure, pneumonia, silent aspiration, on Antibiotics, followed by primary care physician Urosepsis, history of kidney stone and nephrostomy tube, on antibiotics and managed by primary care team Silent aspiration, status post feeding tube placement Coronary artery disease, history of CABG done in the remote past. Patient had a stent done in December 2001 using MultiLink 2.518 mm to the proximal right coronary artery, 2017 had a Cypher stent 3.530 mm to the proximal and mid circumflex artery. Has been followed and managed by primary packing and wrapping supervisor Dr. Mendez in [place]. Continue to follow History of congestive heart failure, reported ejection fraction 54 percent. MPI in 2013, continue to monitor Paroxysmal atrial fibrillation maintained on amiodarone, intolerant to oral anticoagulation secondary to recurrent nosebleed and anemia, Patient is maintained on Cardizem, Amiodarone,Lopressor and Digoxin, continue to monitor, no changes are recommended Patient has been maintained on mexiletine. Probably due to ventricular fibrillation and history of shock from his defibrillator, known to have [employer]. Morteza ICD implanted by Dr. vidales in [place]. Continue on Mexiletine COPD, chronic dyspnea, followed by primary care physician Chronic pedal edema,continue to diurese and monitor electrolytes Diabetes mellitus, followed and managed by primary care physician Clinical Quality Measures DVT/VTE Risk/Contraindication: Risk Factor Score Per Nursin RFS Level Per Nursing on Admit: 4+=Very High JOHN ALFARO MD Aug 03, 2018 11:47
--- NOTE | 2018-08-03 13:00 | NUR ---
TEACHING DONE WITH THROUGHOUT DAY ON TUBE FEEDING AND MEDICATION ADMINISTRATION THROUGH PEG. DOES A FAIR JOB, BUT SHE HAS A HARD TIME WITH ADMINISTRATION FROM HER SITTING POSITION IN A WHEELCHAIR. EVEN AFTER REMINDING FREQUENTLY TO HAVE SYRINGE IN PEG TUBING SECURELY, SYRINGE WAS NOT SECURE AND SOME TUBE FEEDING CAME OUT. NEEDS REMINDED EACH TIME EACH STEP TO DO. WILL CONTINUE WITH TEACHING.
--- NOTE | 2018-08-03 17:18 | NUR ---
Weekly Summary: Patient continues to participate and progress with therapy. Preparing for discharge on August 05. Nursing staff working with patient's , Veronica, on PEG care, medication and feeding administration. Tube feedings consolidated in preparation for going home to 1.5 cans of Jevity q6h. Patient is tolerating feedings well. Patient has progressed to being able to alert staff when needing to toilet, transfers to wheelchair with 1 assist to bathroom. Fewer bladder accidents noted. Patient has had 2 continent bowel movements today. Patient is responding more appropriately, however, continuing to use bed/chair alarms and tele-sitter. Last Sunday, patient had positive OB stool with EGD and Colonoscopy July 29. Resulted mild gastritis and hemorrhoids. 2 Units of PRBC were administered on 08/01/2018. On 08/02/2018 HGB 10.2. Not on anticoagulant for DVT prophylaxis due to nose bleeds. Continues to require 2 L of Oxygen. Patient has been able to perform IS correctly. Isolation continues with droplet isolation for MRSA in Sputum. Treating stage 2 wound on coccyx with pressure reducing DAISHA Lauren.
[2018-08-03 18:00] VITALS: BP 123/81
--- NOTE | 2018-08-03 19:22 | NUR ---
report received from TRAVIS ROSS, assume care of pt
--- NOTE | 2018-08-03 20:00 | NUR ---
assessments & intervention completed, see assessments & interventions, pt refused Colace due to loose stools, back to bed with 1 person assist & walker, at bedside
[2018-08-03 20:22] VITALS: BP 124/83
[2018-08-03] MEDS: ATORVASTATIN 40 MG (LIPITOR) TABLET PO SCH (20:25)
[2018-08-03 22:03] VITALS: BP 113/80
--- NOTE | 2018-08-03 22:10 | NUR ---
mexiletine 150mg per g-tube given early due to Questran due to 2300
--- NOTE | 2018-08-04 | NUR ---
gastric residual 5 ml tube feeding jevity 1.5 1 & 1/2 can given with water flush 50ml prior to and after
[2018-08-04 06:00] VITALS: BP 107/63
--- NOTE | 2018-08-04 06:00 | NUR ---
gastric residual 3ml tube feeding jevity 1.5 1 & 1/2 cans given per g-tube
[2018-08-04] MEDS: DILTIAZEM 60 MG (CARDIZEM) TAB PO SCH ×3 (06:09→22:10)
[2018-08-04] MEDS: RT-ALBUTEROL/IPRATROPIUM 3 ML (DUONEB) VIAL INH SCH ×3 (06:45→20:31)
[2018-08-04] MEDS: FUROSEMIDE 20 MG (LASIX) TAB PO SCH ×2 (06:47→17:18)
[2018-08-04] MEDS: KCL 20 MEQ POWDER FOR ORAL SOLUTION PEG SCH (06:47)
--- NOTE | 2018-08-04 07:07 | NUR ---
REPORT GIVEN TO JONATHAN ROSS
[2018-08-04] MEDS: guaiFENesin/DM (ROBITUSSIN DM) 10 ML UDC PO SCH ×3 (09:27→20:18)
[2018-08-04] MEDS: meTOprolol TARTRATE 25 MG (LOPRESSOR) TABLET PO SCH ×2 (09:28→20:18)
[2018-08-04] MEDS: ASPIRIN 81 MG CHEW (CHILDREN'S ASA) PO SCH (09:28)
[2018-08-04] MEDS: LACTOBACILLUS ACIDOPHILUS (PROBIOTIC) CAPSULE PO SCH ×2 (09:28→20:18)
[2018-08-04] MEDS: DIGOXIN 0.125 MG (LANOXIN) TAB PO SCH (09:28)
[2018-08-04] MEDS: MEXILETINE 150 MG (MEXITIL) CAPSULE PO SCH ×3 (09:28→22:10)
[2018-08-04] MEDS: DOCUSATE SODIUM 10 MG/ML 10 ML UDC (COLACE) PEG SCH ×2 (09:28→20:24)
[2018-08-04] MEDS: AMIODARONE 200 MG (CORDARONE) TAB PO SCH (09:28)
[2018-08-04] MEDS: PHENAZOPYRIDINE 100 MG (PYRIDIUM) TABLET PO SCH ×3 (09:28→17:18)
[2018-08-04] MEDS: PANTOPRAZOLE 2 MG/ML LIQUID 200 ML (PROTONIX) PEG SCH ×3 (09:30)
[2018-08-04] MEDS: MENTHOL/ZINC OXIDE (CALMOSEPTINE) 113 GM TUBE TOP SCH ×2 (09:30→20:18)
--- NOTE | 2018-08-04 10:17 | Cardiology Progress Note ---
Subjective Date Seen by Provider: Aug 04, 2018 Time Seen by Provider: 10:16 Subjective/Events-last exam Patient is laying down in bed, feeling better. Denied any chest pain. Review of Systems General: No Chills, No Night Sweats; Fatigue, Malaise; No Appetite, No Other HEENT: No Head Aches, No Visual Changes, No Eye Pain, No Ear Pain, No Dysphasia , No Sinus Congestion, No Post Nasal Drip, No Sore Throat, No Other Pulmonary: Dyspnea; No Cough, No Pleuritic Chest Pain, No Other Cardiovascular: No: Chest Pain, Palpitations, Orthopnea, Paroxysmal Noc. Dyspnea, Edema, Lt Headedness, Other Objective-Cardiology Exam Last Set of Vital Signs Vital Signs 08/04/18 08/04/18 08/04/18 06:00 06:45 08:00 Temp 97.0 Pulse 90 Resp 20 B/P (MAP) 107/63 (78) Pulse Ox 96 O2 Delivery Nasal Cannula O2 Flow Rate 2.00 Capillary Refill : I&O Intake and Output 08/04/18 00:00 Intake Total 2537 ml Output Total 850 ml Balance 1687 ml Intake Oral 0 ml Tube Feeding 1557 ml Other 980 ml Output Urine Total 850 ml # Voids 5 # Bowel Movements 2 General: Alert, Oriented X3, Cooperative, No Acute Distress HEENT: Atraumatic, PERRLA, EOMI, Mucous Memb Moist/[place] Neck: Supple, No JVD Lungs: Clear to Auscultation, Normal Air Movement, Other (coarse breath sounds are resolved today) Heart: Regular Rate, Normal S1, Normal S2 Abdomen: Normal Bowel Sounds, Soft, No Tenderness, Other (Peg Tube in place) Extremities: No Clubbing, Other (+1 edema BLE) Skin: No Rashes Neuro: Normal Speech, Other (Subtle confusion, strength 4/5 LES 4-/5 Upper limbs) Psych/Mental Status: Mental Status NL, Mood NL, Other (subtle memory loss) A/P-Cardiology Admission Diagnosis Debility CAD HTN Chronic atrial fibrillation Assessment/Plan Debility, reporting improvement, managed by primary care physician Anemia, status post transfusion, EGD showed esophagitis and gastritis, followed and managed by primary care physician Status post respiratory failure, pneumonia, silent aspiration, on Antibiotics, followed by primary care physician Urosepsis, history of kidney stone and nephrostomy tube, on antibiotics and managed by primary care team Silent aspiration, status post feeding tube placement Coronary artery disease, history of CABG done in the remote past. Patient had a stent done in December 2001 using MultiLink 2.518 mm to the proximal right coronary artery, 2017 had a Cypher stent 3.530 mm to the proximal and mid circumflex artery. Has been followed and managed by primary director peoplesoft Dr. Mendez in [place]. Continue to follow History of congestive heart failure, reported ejection fraction 54 percent. MPI in 2013, continue to monitor Paroxysmal atrial fibrillation maintained on amiodarone, intolerant to oral anticoagulation secondary to recurrent nosebleed and anemia, Patient is maintained on Cardizem, Amiodarone,Lopressor and Digoxin, continue to monitor, no changes are recommended Patient has been maintained on mexiletine. Probably due to ventricular fibrillation and history of shock from his defibrillator, known to have St. Morteza ICD implanted by Dr. vidales in [place]. Continue on Mexiletine COPD, chronic dyspnea, followed by primary care physician Chronic pedal edema,continue to diurese and monitor electrolytes Diabetes mellitus, followed and managed by primary care physician Clinical Quality Measures DVT/VTE Risk/Contraindication: Risk Factor Score Per Nursin RFS Level Per Nursing on Admit: 4+=Very High JOHN ALFARO MD Aug 04, 2018 10:17 am
--- NOTE | 2018-08-04 10:26 | NUR ---
Education given to pts giving medications through peg tube. Required set and verbal cuing. Pt demonstrated and verbalized understanding but will need more practice.
[2018-08-04] MEDS: CHOLESTYRAMINE 4 GM (QUESTRAN LITE, PREVALITE) PKT PO SCH ×2 (11:30→23:10)
--- NOTE | 2018-08-04 12:54 | PM&R Progress Note ---
Subjective HPI/CC On Admission Date Seen by Provider: Aug 04, 2018 Time Seen by Provider: 12:00 CC: Severe debility HPI: This is a 78-year-old white male [facility] patient was admitted to inpatient rehabilitation for IV medication and severe debility resolution. He was admitted to [facility] for 11 days requiring PEG tube placement due to silent aspiration and urinary stent placement due to obstructive stone in ureter and maintained on antibiotic regimen with aggressive physical therapy. I reviewed old records and culture results from infectious disease and reviewed current lab results along with vital signs. He is sitting up in chair drowsy but oriented 3 but appears to be severely chronically ill. Her goal is to return to independent ADL function along with completion of IV antibiotics. Subjective/Events-last exam Patient doing well Chronically disabled and has everything set up at home pretty well Has home oxygen at home with nebulizers Tube feedings will be performed by Discharge plan for tomorrow Review of Systems General: Fatigue Objective Exam Vital Signs Vital Signs Date Time Temp Pulse Resp B/P (MAP) Pulse Ox O2 Delivery O2 Flow Rate FiO2 08/04/18 13:57 95 Nasal Cannula 2.00 08/04/18 06:00 97.0 90 20 107/63 (78) Capillary Refill : General Appearance: No Apparent Distress, WD/WN, Chronically ill Respiratory: Chest Non Tender, Lungs Clear, Normal Breath Sounds, No Accessory Muscle Use, No Respiratory Distress Cardiovascular: Regular Rate, Rhythm, No Edema, No Gallop, No JVD, No Murmur, Normal Peripheral Pulses Neurologic/Psychiatric: Alert, Oriented x3, No Motor/Sensory Deficits, Normal Mood/Affect Results/Procedures Lab Patient resulted labs reviewed. Assessment/Plan Assessment and Plan Assess & Plan/Chief Complaint Assessment: Anemia with presumed GI bleed with hemoccult positive but Dr Payne performed EGD/ Colon last week without source of loss identified and iron 50 on check to receive 2 units of blood 08/01/18 and Hematology consultation completed by Dr Elliott MRSA pneumonia s/p treatment completion Pseudomonas UTI s/p treatment with Gent Severe debilitated state CAD previous bypass graft ICD defibrillator in place Presbycusis Sleep apnea Chronic respiratory failure Aspiration with PEG tube placement and NPO status Plan: Dr Elliott consultation is appreciated PEG tube feedings Speech therapy PT/OT DC Sunday Consult Dr Fonseca is appreciated Consult Dr Demetrice Payne is appreciated Consult Dr Elliott is appreciated Diagnosis/Problems Diagnosis/Problems (1) Debility Status: Acute (2) GI bleed Status: Chronic Qualifiers: GI bleed type/associated pathology: unspecified gastrointestinal hemorrhage type Qualified Codes: K92.2 - Gastrointestinal hemorrhage, unspecified (3) MRSA pneumonia Status: Resolved Qualifiers: Laterality: unspecified laterality Lung location: unspecified part of lung Qualified Codes: J15.212 - Pneumonia due to methicillin resistant Staphylococcus aureus Resolution Date/Time: 07/31/18 @ 14:23 (4) Pseudomonas urinary tract infection Status: Resolved Resolution Date/Time: 08/01/18 @ 20:39 (5) Pyelonephritis Status: Resolved Resolution Date/Time: 07/31/18 @ 14:23 (6) Renal calculus, left Status: Resolved Resolution Date/Time: 07/31/18 @ 14:23 (7) Acute renal insufficiency Status: Resolved Resolution Date/Time: 06/16/18 @ 17:54 (8) Diabetes mellitus, type 2 Status: Chronic Qualifiers: Diabetes mellitus group home insulin use: with feedmobile driver use Diabetes mellitus complication status: with circulatory complication Diabetes mellitus complication detail: with other circulatory complications Qualified Codes: E11.59 - Type 2 diabetes mellitus with other circulatory complications; Z79.4 - loader unloader (current) use of insulin (9) Congestive heart failure Status: Chronic Qualifiers: Heart failure type: unspecified Heart failure chronicity: acute on chronic Qualified Codes: I50.9 - Heart failure, unspecified (10) COPD (chronic obstructive pulmonary disease) Status: Chronic Qualifiers: COPD type: unspecified COPD Qualified Codes: J44.9 - Chronic obstructive pulmonary disease, unspecified (11) Paroxysmal atrial fibrillation Status: Chronic (12) CAD (coronary artery disease) Status: Chronic Qualifiers: Coronary Disease-Associated Artery/Lesion type: [place] artery [place] vs. transplanted heart: [place] heart Associated angina: without angina Qualified Codes: I25.10 - Atherosclerotic heart disease of [place] coronary artery without angina pectoris (13) ICD (implantable cardioverter-defibrillator) in place Status: Chronic (14) Melena Status: Acute (15) Diarrhea Status: Acute Qualifiers: Diarrhea type: unspecified type Qualified Codes: R19.7 - Diarrhea, unspecified (16) Anemia Status: Acute Qualifiers: Anemia type: iron deficiency Iron deficiency anemia type: chronic blood loss Qualified Codes: D50.0 - Iron deficiency anemia secondary to blood loss ( chronic) (17) At risk for aspiration Status: Chronic (18) PEG (percutaneous endoscopic gastrostomy) status Status: Chronic (19) Rales Status: Chronic (20) Transfusion of blood during current hospitalization Status: Acute Clinical Quality Measures DVT/VTE Risk/Contraindication: Risk Factor Score Per Nursin RFS Level Per Nursing on Admit: 4+=Very High BRIGITTE LEMA DO Aug 04, 2018 12:54
[2018-08-04 18:00] VITALS: BP 118/73
--- NOTE | 2018-08-04 18:51 | NUR ---
report received from JONATHAN ROSS, assume care of pt
--- NOTE | 2018-08-04 20:00 | NUR ---
assessments & interventions completed, see assessments & interventions
--- NOTE | 2018-08-04 20:13 | NUR ---
meds crushed & mixed in water & given in peg tube wanted this nurse to do meds this evening, colace 100mg po held due to loose stools, back to bed with 1 person assist & walker
[2018-08-04 20:15] VITALS: BP 119/77
[2018-08-04] MEDS: ATORVASTATIN 40 MG (LIPITOR) TABLET PO SCH (20:17)
--- NOTE | 2018-08-04 22:00 | NUR ---
mexiletine 150mg given with Cardizem 60mg per peg tube due to Questran due to 2300
[2018-08-04 22:05] VITALS: BP 110/70
--- NOTE | 2018-08-05 | NUR ---
gastric residual 4ml given jevity 1.5 1.5 cans per g-tube
[2018-08-05] MEDS: DILTIAZEM 60 MG (CARDIZEM) TAB PO SCH ×2 (05:51→14:54)
[2018-08-05 05:58] LABS: BASOPHILS % (AUTO) 0 % (0-10); EOSINOPHILS # (AUTO) 0.1 10^3/uL (0.0-0.3); EOSINOPHILS % (AUTO) 2 % (0-10); HEMATOCRIT 29 % (40-54); LYMPHOCYTES % (AUTO) 15 % (12-44); MEAN CORPUSCULAR HEMOGLOBIN 30 PG (25-34); MEAN CORPUSCULAR HGB CONC 31 G/DL (32-36); MEAN CORPUSCULAR VOLUME 98 FL (80-99); MEAN PLATELET VOLUME 10.9 FL (7.4-10.4); MONOCYTES # (AUTO) 0.9 X 10^3 (0.0-1.0); MONOCYTES % (AUTO) 14 % (0-12); NEUTROPHILS # (AUTO) 4.6 X 10^3 (1.8-7.8); NEUTROPHILS % (AUTO) 69 % (42-75); PLATELET COUNT 147 10^3/uL (130-400); RED BLOOD COUNT 2.98 10^6/uL (4.35-5.85); RED CELL DISTRIBUTION WIDTH 19.1 % (10.0-14.5); WHITE BLOOD COUNT 6.6 10^3/uL (4.3-11.0)
[2018-08-05 06:00] VITALS: BP 117/72
--- NOTE | 2018-08-05 06:00 | NUR ---
gastric residual 1ml tube feeding jevity 1.5 1.5 can given
[2018-08-05 06:09] LABS: ALANINE AMINOTRANSFERASE 14 U/L (0-55); ALKALINE PHOSPHATASE 86 U/L (40-136); BILIRUBIN,TOTAL 0.5 MG/DL (0.1-1.0); BUN/CREATININE RATIO 22; CALCIUM 8.9 MG/DL (8.5-10.1); CARBON DIOXIDE 30 MMOL/L (21-32); CHLORIDE 99 MMOL/L (98-107); GFR ESTIMATED > 60; GLUCOSE 113 MG/DL (70-105); POTASSIUM 4.3 MMOL/L (3.6-5.0); SODIUM 137 MMOL/L (135-145); TOTAL PROTEIN 7.3 GM/DL (6.4-8.2)
[2018-08-05 06:27] LABS: ERYTHROCYTE SEDIMENTATION RATE 83 MM/HR (0-30)
[2018-08-05] MEDS: FUROSEMIDE 20 MG (LASIX) TAB PO SCH (06:54)
[2018-08-05] MEDS: KCL 20 MEQ POWDER FOR ORAL SOLUTION PEG SCH (06:55)
--- NOTE | 2018-08-05 07:11 | NUR ---
report given to JONATHAN ROSS
[2018-08-05] MEDS: RT-ALBUTEROL/IPRATROPIUM 3 ML (DUONEB) VIAL INH SCH (07:32)
[2018-08-05] MEDS ORDERED: MAGN400O7 PO (08:12)
[2018-08-05] MEDS ORDERED: ASPI-999 PO (08:12)
[2018-08-05] MEDS ORDERED: CHOL4PAC3 PO (08:12)
[2018-08-05] MEDS ORDERED: POTA20PA28 PEG (08:12)
[2018-08-05] MEDS ORDERED: MENT71OI TOP (08:12)
[2018-08-05] MEDS ORDERED: ATOR40TA PO (08:12)
[2018-08-05] MEDS ORDERED: DILT60TA PO (08:12)
--- NOTE | 2018-08-05 08:16 | D/C HH Face to Face Order ---
D/C Face to Face Orders Instructions for Patient [facility], Patient Instructions/FollowUp: [facility] in [address] Elliott in 2 weeks Physician to follow Patient: [facility] Discharge Diet for Home: Tube Feeding, other diet (NPO) Patient Problems: Aspiration Dysphagia PEG tube dependent COPD Patient Data-Allergies,Ht & Wt Patient Allergies: Coded Allergies: Penicillins (Verified Allergy, Severe, HIVES, SOB (Pt has received Cefepime & Ceftriaxone), 07/03/18) codeine (Verified Allergy, Severe, SOB, HIVES, 01/04/18) Height (Feet): 5 Height (Inches): 5.00 Weight (Pounds): 180 Weight (Ounces): 4.8 Home Health Need/Face to Face Date of Face to Face: Aug 05, 2018 Clinical Findings: Generalized weakness and fatigue, Immune-compromised, Shortness of breath, Unsteady gait I have seen Pt [id number]: Yes Discharged To: Home Diagnosis/Conditions: Aspiration Dysphagia PEG tube dependent COPD Patient is Homebound due to: CognItive deficits, Reji fall risk due to instabilty, Muscle weakness, Shortness of breath/distress Homebound Status Due to the above stated illness, injury or surgical procedure (medical condition or diagnosis) and associated clinical findings, the patient is homebound because of his/her inability to leave home except with aid of a supportive device and/or person AND leaving the home requires a considerable and taxing effort or is medically contraindicated. Pt req the following assistanc: Aid of another person, Walker Home Health Nursing Orders Home Health Services Order: Nursing Services, Motorcoach Driver-Evaluate & Treat, Physical Therapy-Evaluate & Treat, Speech Language-Evaluate & Treat Home Health Infusion Therapy Line Type: Midline Site Location: Arm-Upper Type of Feeding Tube: PEJG Formula: Jevity 1.5 Certify Stmt I certify that this patient is under my care and that I, a nurse practitioner or a physician; a support assistant working with me, had a face to face encounter that - meets the physician face to face encounter requirements with this patient as dated. BRIGITTE LEMA DO Aug 05, 2018 08:16
--- NOTE | 2018-08-05 08:18 | Discharge Summary ---
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 at higher level of care [facility] Anemia with presumed GI bleed with hemoccult positive but Dr Payne performed EGD/ Colon last week without source of loss identified and iron 50 on check to receive 2 units of blood 08/01/18 and Hematology consultation completed by Dr Elliott MRSA pneumonia s/p treatment completion Pseudomonas UTI s/p treatment with Gent Severe debilitated state CAD previous bypass graft ICD defibrillator in place Presbycusis Sleep apnea Chronic respiratory failure Aspiration with PEG tube placement and NPO status Discharge Summary Consultations Dr Demetrice Elliott Discharge Physical Examination Allergies: Coded Allergies: Penicillins (Verified Allergy, Severe, HIVES, SOB (Pt has received Cefepime & Ceftriaxone), 07/03/18) codeine (Verified Allergy, Severe, SOB, HIVES, 01/04/18) Vitals & I&Os Vital Signs Date Time Temp Pulse Resp B/P (MAP) Pulse Ox O2 Delivery O2 Flow Rate FiO2 08/05/18 15:24 89 20 117/72 92 Nasal Cannula 2.00 08/05/18 06:00 98.6 Hospital Course Hospital course: Patient had a lengthy inpatient rehab course. He was transferred from [facility] after undergoing kidney stone surgery with percutaneous catheter placement due to Pseudomonas UTI and obstruction. He was found to have pneumonia placed on vancomycin and required multiple consultations at the tertiary care center. He became medically stable was found to be in need for inpatient rehab for completion of vancomycin and gentamicin for MRSA pneumonia and Pseudomonas UTI respectively. He participated in all therapies faithfully although chronic illness precluded rapid recovery. N.p.o. status was maintained after multiple attempts with speech therapy to advance diet even to pured and thickened liquids but that failed with small amount of aspiration so he was placed strictly n.p.o. maintain PEG tube feedings. He did undergo EGD and colonoscopy to evaluate Hemoccult positive stools with declining hemoglobin and that was performed by which revealed no source of bleeding except a gastritis which did not show any active bleeding. Dr. Campbell was consulted patient received 2 units of blood with good rebound of hemoglobin to 10 and remained stable. Overall patient improved enough to be discharged home as he and his wished with caregiver support along with PEG tube feedings per his and that was Osmolite of 1.5 strength with 1-1/2 cans every 6 hours with 50 cc of tap water before and after. Labs (last 24 hrs) Laboratory Tests 07/22/18 05:52: Glucometer 124H 07/22/18 06:42: White Blood Count 8.6, Red Blood Count 3.77L, Hemoglobin 11.1L, Hematocrit 35L, Mean Corpuscular Volume 93, Mean Corpuscular Hemoglobin 29, Mean Corpuscular Hemoglobin Concent 32, Red Cell Distribution Width 18.6H, Platelet Count 219, Mean Platelet Volume 11.3H, Neutrophils (%) (Auto) 74, Lymphocytes (%) (Auto) 12 , Monocytes (%) (Auto) 12, Eosinophils (%) (Auto) 1, Basophils (%) (Auto) 0, Neutrophils # (Auto) 6.4, Lymphocytes # (Auto) 1.0, Monocytes # (Auto) 1.0, Eosinophils # (Auto) 0.1, Basophils # (Auto) 0.0, Erythrocyte Sedimentation Rate 74H, Sodium Level 140, Potassium Level 4.0, Chloride Level 101, Carbon Dioxide Level 29, Anion Gap 10, Blood Urea Nitrogen 22H, Creatinine 0.94, Estimat Glomerular Filtration Rate > 60, BUN/Creatinine Ratio 23, Glucose Level 124H, Calcium Level 9.6, Corrected Calcium 10.2H, Total Bilirubin 0.4, Aspartate Amino Transf (AST/SGOT) 23, Alanine Aminotransferase (ALT/SGPT) 12, Alkaline Phosphatase 93, Total Protein 8.2, Albumin 3.2 07/22/18 10:13: Glucometer 90 07/22/18 15:50: Glucometer 128H 07/22/18 16:55: Vancomycin Level Trough 12.9 07/22/18 20:13: Glucometer 140H 07/23/18 04:59: Glucometer 108 07/23/18 11:05: Glucometer 136H 07/23/18 17:14: Glucometer 119H 07/23/18 20:39: Glucometer 132H 07/24/18 05:56: Glucometer 93 07/24/18 11:00: White Blood Count 8.4, Red Blood Count 3.37L, Hemoglobin 9.8L, Hematocrit 31L, Mean Corpuscular Volume 93, Mean Corpuscular Hemoglobin 29, Mean Corpuscular Hemoglobin Concent 31L, Red Cell Distribution Width 18.7H, Platelet Count 198, Mean Platelet Volume 11.3H, Neutrophils (%) (Auto) 73, Lymphocytes (%) (Auto) 15 , Monocytes (%) (Auto) 11, Eosinophils (%) (Auto) 1, Basophils (%) (Auto) 0, Neutrophils # (Auto) 6.1, Lymphocytes # (Auto) 1.3, Monocytes # (Auto) 0.9, Eosinophils # (Auto) 0.1, Basophils # (Auto) 0.0, Sodium Level 137, Potassium Level 4.2, Chloride Level 97L, Carbon Dioxide Level 32, Anion Gap 8, Blood Urea Nitrogen 23H, Creatinine 0.94, Estimat Glomerular Filtration Rate > 60, BUN/ Creatinine Ratio 24, Glucose Level 115H, Calcium Level 9.1, Corrected Calcium 9.8, Total Bilirubin 0.4, Aspartate Amino Transf (AST/SGOT) 21, Alanine Aminotransferase (ALT/SGPT) 13, Alkaline Phosphatase 89, Total Protein 7.8, Albumin 3.1L 07/24/18 15:57: Glucometer 139H 07/24/18 20:38: Glucometer 121H 07/25/18 05:58: Glucometer 109 07/25/18 11:04: Glucometer 139H 07/25/18 16:46: Glucometer 99 07/25/18 20:39: Glucometer 98 07/26/18 05:49: Glucometer 114H 07/26/18 11:13: Glucometer 129H 07/26/18 16:05: Glucometer 131H 07/26/18 20:14: Glucometer 133H 07/27/18 06:02: Glucometer 96 07/27/18 11:09: Glucometer 138H 07/27/18 16:17: Glucometer 111H 07/27/18 21:07: Glucometer 96 07/28/18 05:40: White Blood Count 6.9, Red Blood Count 2.86L, Hemoglobin 8.4L, Hematocrit 28L, Mean Corpuscular Volume 96, Mean Corpuscular Hemoglobin 29, Mean Corpuscular Hemoglobin Concent 31L, Red Cell Distribution Width 19.0H, Platelet Count 141, Mean Platelet Volume 12.2H, Neutrophils (%) (Auto) 69, Lymphocytes (%) (Auto) 15 , Monocytes (%) (Auto) 13H, Eosinophils (%) (Auto) 2, Basophils (%) (Auto) 0, Neutrophils # (Auto) 4.8, Lymphocytes # (Auto) 1.0, Monocytes # (Auto) 0.9, Eosinophils # (Auto) 0.1, Basophils # (Auto) 0.0, Sodium Level 138, Potassium Level 4.8, Chloride Level 99, Carbon Dioxide Level 31, Anion Gap 8, Blood Urea Nitrogen 22H, Creatinine 0.92, Estimat Glomerular Filtration Rate > 60, BUN/ Creatinine Ratio 24, Glucose Level 105, Calcium Level 9.0, Corrected Calcium 9.8 , Total Bilirubin 0.4, Aspartate Amino Transf (AST/SGOT) 23, Alanine Aminotransferase (ALT/SGPT) 14, Alkaline Phosphatase 87, Total Protein 7.2, Albumin 3.0L 07/28/18 11:35: Glucometer 132H 07/28/18 16:04: Stool Occult Blood Immunoassay POSITIVEH 07/29/18 06:15: White Blood Count 6.6, Red Blood Count 2.72L, Hemoglobin 8.0L, Hematocrit 26L, Mean Corpuscular Volume 96, Mean Corpuscular Hemoglobin 29, Mean Corpuscular Hemoglobin Concent 31L, Red Cell Distribution Width 19.1H, Platelet Count 142, Mean Platelet Volume 11.7H, Neutrophils (%) (Auto) 70, Lymphocytes (%) (Auto) 15 , Monocytes (%) (Auto) 12, Eosinophils (%) (Auto) 2, Basophils (%) (Auto) 0, Neutrophils # (Auto) 4.7, Lymphocytes # (Auto) 1.0, Monocytes # (Auto) 0.8, Eosinophils # (Auto) 0.2, Basophils # (Auto) 0.0, Erythrocyte Sedimentation Rate 126H, Sodium Level 137, Potassium Level 4.3, Chloride Level 99, Carbon Dioxide Level 29, Anion Gap 9, Blood Urea Nitrogen 20H, Creatinine 0.92, Estimat Glomerular Filtration Rate > 60, BUN/Creatinine Ratio 22, Glucose Level 94, Calcium Level 9.1, Corrected Calcium 9.9, Iron Level 50, Total Bilirubin 0.5 , Aspartate Amino Transf (AST/SGOT) 21, Alanine Aminotransferase (ALT/SGPT) 14, Alkaline Phosphatase 90, Total Protein 7.2, Albumin 3.0L 07/29/18 11:01: Glucometer 101 08/01/18 06:30: White Blood Count 7.4, Red Blood Count 2.42L, Hemoglobin 7.2L, Hematocrit 24L, Mean Corpuscular Volume 98, Mean Corpuscular Hemoglobin 30, Mean Corpuscular Hemoglobin Concent 31L, Red Cell Distribution Width 20.2H, Platelet Count 156, Mean Platelet Volume 11.2H, Sodium Level 138, Potassium Level 4.4, Chloride Level 100, Carbon Dioxide Level 30, Anion Gap 8, Blood Urea Nitrogen 17, Creatinine 0.86, Estimat Glomerular Filtration Rate > 60, BUN/Creatinine Ratio 20, Glucose Level 89, Calcium Level 9.0, Corrected Calcium 9.7, Total Bilirubin 0.4, Aspartate Amino Transf (AST/SGOT) 20, Alanine Aminotransferase (ALT/SGPT) 16, Alkaline Phosphatase 91, Total Protein 7.2, Albumin 3.1L 08/01/18 13:35: Ferritin 429.3H 08/02/18 09:30: White Blood Count 7.1, Red Blood Count 3.36L, Hemoglobin 10.2#L, Hematocrit 32L , Mean Corpuscular Volume 96, Mean Corpuscular Hemoglobin 30, Mean Corpuscular Hemoglobin Concent 32, Red Cell Distribution Width 19.9H, Platelet Count 159, Mean Platelet Volume 10.9H, Sodium Level 138, Potassium Level 4.7, Chloride Level 99, Carbon Dioxide Level 30, Anion Gap 9, Blood Urea Nitrogen 22H, Creatinine 0.98, Estimat Glomerular Filtration Rate > 60, BUN/Creatinine Ratio 22, Glucose Level 102, Calcium Level 9.6, Corrected Calcium 10.1, Total Bilirubin 0.7, Aspartate Amino Transf (AST/SGOT) 23, Alanine Aminotransferase ( ALT/SGPT) 17, Alkaline Phosphatase 92, Total Protein 8.0, Albumin 3.4 08/05/18 05:40: White Blood Count 6.6, Red Blood Count 2.98L, Hemoglobin 9.0L, Hematocrit 29L, Mean Corpuscular Volume 98, Mean Corpuscular Hemoglobin 30, Mean Corpuscular Hemoglobin Concent 31L, Red Cell Distribution Width 19.1H, Platelet Count 147, Mean Platelet Volume 10.9H, Sodium Level 137, Potassium Level 4.3, Chloride Level 99, Carbon Dioxide Level 30, Anion Gap 8, Blood Urea Nitrogen 20H, Creatinine 0.90, Estimat Glomerular Filtration Rate > 60, BUN/Creatinine Ratio 22, Glucose Level 113H, Calcium Level 8.9, Corrected Calcium 9.7, Total Bilirubin 0.5, Aspartate Amino Transf (AST/SGOT) 19, Alanine Aminotransferase ( ALT/SGPT) 14, Alkaline Phosphatase 86, Total Protein 7.3, Albumin 3.0L, Neutrophils (%) (Auto) 69, Lymphocytes (%) (Auto) 15, Monocytes (%) (Auto) 14H, Eosinophils (%) (Auto) 2, Basophils (%) (Auto) 0, Neutrophils # (Auto) 4.6, Lymphocytes # (Auto) 1.0, Monocytes # (Auto) 0.9, Eosinophils # (Auto) 0.1, Basophils # (Auto) 0.0, Erythrocyte Sedimentation Rate 83H Pending Labs Laboratory Tests 07/22/18 05:52: Glucometer 124 07/22/18 06:42: White Blood Count 8.6, Red Blood Count 3.77, Hemoglobin 11.1, Hematocrit 35, Mean Corpuscular Volume 93, Mean Corpuscular Hemoglobin 29, Mean Corpuscular Hemoglobin Concent 32, Red Cell Distribution Width 18.6, Platelet Count 219, Mean Platelet Volume 11.3, Neutrophils (%) (Auto) 74, Lymphocytes (%) (Auto) 12 , Monocytes (%) (Auto) 12, Eosinophils (%) (Auto) 1, Basophils (%) (Auto) 0, Neutrophils # (Auto) 6.4, Lymphocytes # (Auto) 1.0, Monocytes # (Auto) 1.0, Eosinophils # (Auto) 0.1, Basophils # (Auto) 0.0, Erythrocyte Sedimentation Rate 74, Sodium Level 140, Potassium Level 4.0, Chloride Level 101, Carbon Dioxide Level 29, Anion Gap 10, Blood Urea Nitrogen 22, Creatinine 0.94, Estimat Glomerular Filtration Rate > 60, BUN/Creatinine Ratio 23, Glucose Level 124, Calcium Level 9.6, Corrected Calcium 10.2, Total Bilirubin 0.4, Aspartate Amino Transf (AST/SGOT) 23, Alanine Aminotransferase (ALT/SGPT) 12, Alkaline Phosphatase 93, Total Protein 8.2, Albumin 3.2 07/22/18 10:13: Glucometer 90 07/22/18 15:50: Glucometer 128 12/24/18 16:55: Vancomycin Level Trough 12.9 07/22/18 20:13: Glucometer 140 07/23/18 04:59: Glucometer 108 07/23/18 11:05: Glucometer 136 07/23/18 17:14: Glucometer 119 07/23/18 20:39: Glucometer 132 07/24/18 05:56: Glucometer 93 07/24/18 11:00: White Blood Count 8.4, Red Blood Count 3.37, Hemoglobin 9.8, Hematocrit 31, Mean Corpuscular Volume 93, Mean Corpuscular Hemoglobin 29, Mean Corpuscular Hemoglobin Concent 31, Red Cell Distribution Width 18.7, Platelet Count 198, Mean Platelet Volume 11.3, Neutrophils (%) (Auto) 73, Lymphocytes (%) (Auto) 15 , Monocytes (%) (Auto) 11, Eosinophils (%) (Auto) 1, Basophils (%) (Auto) 0, Neutrophils # (Auto) 6.1, Lymphocytes # (Auto) 1.3, Monocytes # (Auto) 0.9, Eosinophils # (Auto) 0.1, Basophils # (Auto) 0.0, Sodium Level 137, Potassium Level 4.2, Chloride Level 97, Carbon Dioxide Level 32, Anion Gap 8, Blood Urea Nitrogen 23, Creatinine 0.94, Estimat Glomerular Filtration Rate > 60, BUN/ Creatinine Ratio 24, Glucose Level 115, Calcium Level 9.1, Corrected Calcium 9.8 , Total Bilirubin 0.4, Aspartate Amino Transf (AST/SGOT) 21, Alanine Aminotransferase (ALT/SGPT) 13, Alkaline Phosphatase 89, Total Protein 7.8, Albumin 3.1 07/24/18 15:57: Glucometer 139 07/24/18 20:38: Glucometer 121 07/25/18 05:58: Glucometer 109 07/25/18 11:04: Glucometer 139 07/25/18 16:46: Glucometer 99 07/25/18 20:39: Glucometer 98 07/26/18 05:49: Glucometer 114 07/26/18 11:13: Glucometer 129 07/26/18 16:05: Glucometer 131 07/26/18 20:14: Glucometer 133 07/27/18 06:02: Glucometer 96 07/27/18 11:09: Glucometer 138 07/27/18 16:17: Glucometer 111 07/27/18 21:07: Glucometer 96 07/28/18 05:40: White Blood Count 6.9, Red Blood Count 2.86, Hemoglobin 8.4, Hematocrit 28, Mean Corpuscular Volume 96, Mean Corpuscular Hemoglobin 29, Mean Corpuscular Hemoglobin Concent 31, Red Cell Distribution Width 19.0, Platelet Count 141, Mean Platelet Volume 12.2, Neutrophils (%) (Auto) 69, Lymphocytes (%) (Auto) 15 , Monocytes (%) (Auto) 13, Eosinophils (%) (Auto) 2, Basophils (%) (Auto) 0, Neutrophils # (Auto) 4.8, Lymphocytes # (Auto) 1.0, Monocytes # (Auto) 0.9, Eosinophils # (Auto) 0.1, Basophils # (Auto) 0.0, Sodium Level 138, Potassium Level 4.8, Chloride Level 99, Carbon Dioxide Level 31, Anion Gap 8, Blood Urea Nitrogen 22, Creatinine 0.92, Estimat Glomerular Filtration Rate > 60, BUN/ Creatinine Ratio 24, Glucose Level 105, Calcium Level 9.0, Corrected Calcium 9.8 , Total Bilirubin 0.4, Aspartate Amino Transf (AST/SGOT) 23, Alanine Aminotransferase (ALT/SGPT) 14, Alkaline Phosphatase 87, Total Protein 7.2, Albumin 3.0 07/28/18 11:35: Glucometer 132 07/28/18 16:04: Stool Occult Blood Immunoassay POSITIVE 07/29/18 06:15: White Blood Count 6.6, Red Blood Count 2.72, Hemoglobin 8.0, Hematocrit 26, Mean Corpuscular Volume 96, Mean Corpuscular Hemoglobin 29, Mean Corpuscular Hemoglobin Concent 31, Red Cell Distribution Width 19.1, Platelet Count 142, Mean Platelet Volume 11.7, Neutrophils (%) (Auto) 70, Lymphocytes (%) (Auto) 15 , Monocytes (%) (Auto) 12, Eosinophils (%) (Auto) 2, Basophils (%) (Auto) 0, Neutrophils # (Auto) 4.7, Lymphocytes # (Auto) 1.0, Monocytes # (Auto) 0.8, Eosinophils # (Auto) 0.2, Basophils # (Auto) 0.0, Erythrocyte Sedimentation Rate 126, Sodium Level 137, Potassium Level 4.3, Chloride Level 99, Carbon Dioxide Level 29, Anion Gap 9, Blood Urea Nitrogen 20, Creatinine 0.92, Estimat Glomerular Filtration Rate > 60, BUN/Creatinine Ratio 22, Glucose Level 94, Calcium Level 9.1, Corrected Calcium 9.9, Iron Level 50, Total Bilirubin 0.5, Aspartate Amino Transf (AST/SGOT) 21, Alanine Aminotransferase (ALT/SGPT) 14, Alkaline Phosphatase 90, Total Protein 7.2, Albumin 3.0 07/29/18 11:01: Glucometer 101 08/01/18 06:30: White Blood Count 7.4, Red Blood Count 2.42, Hemoglobin 7.2, Hematocrit 24, Mean Corpuscular Volume 98, Mean Corpuscular Hemoglobin 30, Mean Corpuscular Hemoglobin Concent 31, Red Cell Distribution Width 20.2, Platelet Count 156, Mean Platelet Volume 11.2, Sodium Level 138, Potassium Level 4.4, Chloride Level 100, Carbon Dioxide Level 30, Anion Gap 8, Blood Urea Nitrogen 17, Creatinine 0.86, Estimat Glomerular Filtration Rate > 60, BUN/Creatinine Ratio 20, Glucose Level 89, Calcium Level 9.0, Corrected Calcium 9.7, Total Bilirubin 0.4, Aspartate Amino Transf (AST/SGOT) 20, Alanine Aminotransferase (ALT/SGPT) 16, Alkaline Phosphatase 91, Total Protein 7.2, Albumin 3.1 08/01/18 13:35: Ferritin 429.3 08/02/18 09:30: White Blood Count 7.1, Red Blood Count 3.36, Hemoglobin 10.2, Hematocrit 32, Mean Corpuscular Volume 96, Mean Corpuscular Hemoglobin 30, Mean Corpuscular Hemoglobin Concent 32, Red Cell Distribution Width 19.9, Platelet Count 159, Mean Platelet Volume 10.9, Sodium Level 138, Potassium Level 4.7, Chloride Level 99, Carbon Dioxide Level 30, Anion Gap 9, Blood Urea Nitrogen 22, Creatinine 0.98, Estimat Glomerular Filtration Rate > 60, BUN/Creatinine Ratio 22, Glucose Level 102, Calcium Level 9.6, Corrected Calcium 10.1, Total Bilirubin 0.7, Aspartate Amino Transf (AST/SGOT) 23, Alanine Aminotransferase ( ALT/SGPT) 17, Alkaline Phosphatase 92, Total Protein 8.0, Albumin 3.4 08/05/18 05:40: White Blood Count 6.6, Red Blood Count 2.98, Hemoglobin 9.0, Hematocrit 29, Mean Corpuscular Volume 98, Mean Corpuscular Hemoglobin 30, Mean Corpuscular Hemoglobin Concent 31, Red Cell Distribution Width 19.1, Platelet Count 147, Mean Platelet Volume 10.9, Sodium Level 137, Potassium Level 4.3, Chloride Level 99, Carbon Dioxide Level 30, Anion Gap 8, Blood Urea Nitrogen 20, Creatinine 0.90, Estimat Glomerular Filtration Rate > 60, BUN/Creatinine Ratio 22, Glucose Level 113, Calcium Level 8.9, Corrected Calcium 9.7, Total Bilirubin 0.5, Aspartate Amino Transf (AST/SGOT) 19, Alanine Aminotransferase ( ALT/SGPT) 14, Alkaline Phosphatase 86, Total Protein 7.3, Albumin 3.0, Neutrophils (%) (Auto) 69, Lymphocytes (%) (Auto) 15, Monocytes (%) (Auto) 14, Eosinophils (%) (Auto) 2, Basophils (%) (Auto) 0, Neutrophils # (Auto) 4.6, Lymphocytes # (Auto) 1.0, Monocytes # (Auto) 0.9, Eosinophils # (Auto) 0.1, Basophils # (Auto) 0.0, Erythrocyte Sedimentation Rate 83 Discharge Home Medications: Active Scripts Active Metoprolol Tartrate 25 Mg Tablet 12.5 Mg PO BID Calmoseptine Ointment (Menthol/Lanolin/Calamine/Znox) 71 Gm Oint 0 Gm TOP BID Milk of Magnesia (Magnesium Hydroxide) 400 Mg/5 Ml Oral.susp 30 Ml PO DAILY PRN Potassium Chloride 20 Meq Packet 15 Meq PEG DAILY@0700 Aspirin 81 Mg Tab.chew 81 Mg PO DAILY Diltiazem HCl 60 Mg Tablet 60 Mg PO Q8HR Lipitor (Atorvastatin Calcium) 40 Mg Tablet 40 Mg PO HS Prevalite Packet (Cholestyramine/Aspartame) 4 Gm Powd.pack 4 Gm PO 1000,2300 Reported Pyridium (Phenazopyridine HCl) 200 Mg Tablet 200 Mg PO TID Novolog (Insulin Aspart) 100 Unit/1 Ml Susp SQ UD Amiodarone HCl 200 Mg Tablet PO UD Ventolin Hfa (Albuterol Sulfate) 18 Gm Hfa.aer.ad 2 Puff IH Q6H PRN Digoxin 125 Mcg Tablet 125 Mcg PO DAILY Mexiletine HCl 150 Mg Cap 150 Mg PO TID Furosemide 40 Mg Tablet 20 Mg PO BID Instructions to patient/family Please see electronic discharge instructions given to patient. Diagnosis/Problems Diagnosis/Problems (1) Debility Status: Acute (2) GI bleed Status: Chronic Qualifiers: Qualified Codes: K92.2 - Gastrointestinal hemorrhage, unspecified (3) MRSA pneumonia Status: Resolved Qualifiers: Qualified Codes: J15.212 - Pneumonia due to methicillin resistant Staphylococcus aureus Resolution Date/Time: 07/31/18 @ 14:23 (4) Pseudomonas urinary tract infection Status: Resolved Resolution Date/Time: 08/01/18 @ 20:39 (5) Pyelonephritis Status: Resolved Resolution Date/Time: 07/31/18 @ 14:23 (6) Renal calculus, left Status: Resolved Resolution Date/Time: 07/31/18 @ 14:23 (7) Acute renal insufficiency Status: Resolved Resolution Date/Time: 06/16/18 @ 17:54 (8) Diabetes mellitus, type 2 Status: Chronic Qualifiers: Qualified Codes: E11.59 - Type 2 diabetes mellitus with other circulatory complications; Z79.4 - tank terminal gauger (current) use of insulin (9) Congestive heart failure Status: Chronic Qualifiers: Qualified Codes: I50.9 - Heart failure, unspecified (10) COPD (chronic obstructive pulmonary disease) Status: Chronic Qualifiers: Qualified Codes: J44.9 - Chronic obstructive pulmonary disease, unspecified (11) Paroxysmal atrial fibrillation Status: Chronic (12) CAD (coronary artery disease) Status: Chronic Qualifiers: Qualified Codes: I25.10 - Atherosclerotic heart disease of eek coronary artery without angina pectoris (13) ICD (implantable cardioverter-defibrillator) in place Status: Chronic (14) Melena Status: Acute (15) Diarrhea Status: Acute Qualifiers: Qualified Codes: R19.7 - Diarrhea, unspecified (16) Anemia Status: Acute Qualifiers: Qualified Codes: D50.0 - Iron deficiency anemia secondary to blood loss ( chronic) (17) At risk for aspiration Status: Chronic (18) PEG (percutaneous endoscopic gastrostomy) status Status: Chronic (19) Rales Status: Chronic (20) Transfusion of blood during current hospitalization Status: Acute Clinical Quality Measures DVT/VTE Risk/Contraindication: Risk Factor Score Per Nursin RFS Level Per Nursing on Admit: 4+=Very High BRIGITTE LEMA DO Aug 05, 2018 08:18
--- NOTE | 2018-08-05 08:45 | Cardiology Progress Note ---
Subjective Date Seen by Provider: Aug 05, 2018 Time Seen by Provider: 08:43 Subjective/Events-last exam Patient sitting up in chair, denies any chest pain or dyspnea. Ready to go home. Review of Systems General: No Night Sweats, No Fatigue HEENT: No Visual Changes, No Dysphasia Pulmonary: No Dyspnea, No Cough Cardiovascular: No: Chest Pain, Palpitations, Paroxysmal Noc. Dyspnea, Edema Gastrointestinal: No: Nausea, Vomiting, Diarrhea, Constipation Genitourinary: No Dysuria, No Frequency Musculoskeletal: No: neck pain, back pain Neurological: No: Weakness, Numbness, Change in speech, Confusion Objective-Cardiology Exam Last Set of Vital Signs Vital Signs 08/05/18 08/05/18 08/05/18 06:00 07:41 08:00 Temp 98.6 Pulse 89 Resp 20 B/P (MAP) 117/72 (87) Pulse Ox 92 O2 Delivery Nasal Cannula O2 Flow Rate 2.00 Capillary Refill : I&O Intake and Output 08/04/18 23:59 Intake Total 2600 ml Output Total 1050 ml Balance 1550 ml Intake Oral 0 ml Tube Feeding 1440 ml Other 1160 ml Output Urine Total 1050 ml # Voids 4 # Urine Diapers 4 # Bowel Movements 3 General: Alert, Oriented X3, Cooperative, No Acute Distress HEENT: Atraumatic, PERRLA, EOMI, Mucous Memb Moist/[place] Neck: Supple, No JVD Lungs: Clear to Auscultation, Normal Air Movement, Other (coarse breath sounds are resolved today) Heart: Regular Rate, Normal S1, Normal S2 Abdomen: Normal Bowel Sounds, Soft, No Tenderness, Other (Peg Tube in place) Extremities: No Clubbing, Other (trace edema BLE) Skin: No Rashes Neuro: Normal Speech, Cranial Nerves 3-12 NL Psych/Mental Status: Mental Status NL, Mood NL, Other (subtle memory loss) Results Lab Laboratory Tests 08/05/18 05:40 A/P-Cardiology Admission Diagnosis Debility CAD HTN Chronic atrial fibrillation Assessment/Plan Debility, reporting improvement, managed by primary care physician Anemia, status post transfusion, EGD showed esophagitis and gastritis, followed and managed by primary care physician Status post respiratory failure, pneumonia, silent aspiration, on Antibiotics, followed by primary care physician Urosepsis, history of kidney stone and nephrostomy tube, on antibiotics and managed by primary care team Silent aspiration, status post feeding tube placement Coronary artery disease, history of CABG done in the remote past. Patient had a stent done in December 2001 using MultiLink 2.518 mm to the proximal right coronary artery, 2017 had a Cypher stent 3.530 mm to the proximal and mid circumflex artery. Has been followed and managed by primary afternoon babysitter Dr. Mendez in [place]. Continue to follow History of congestive heart failure, reported ejection fraction 54 percent. MPI in 2013, continue to monitor Paroxysmal atrial fibrillation maintained on amiodarone, intolerant to oral anticoagulation secondary to recurrent nosebleed and anemia, Patient is maintained on Cardizem, Amiodarone,Lopressor and Digoxin, continue to monitor, no changes are recommended Patient has been maintained on mexiletine. Probably due to ventricular fibrillation and history of shock from his defibrillator, known to have [facility] ICD implanted by Dr. vidales in [place]. Continue on Mexiletine COPD, chronic dyspnea, followed by primary care physician Chronic pedal edema,continue to diurese and monitor electrolytes Diabetes mellitus, followed and managed by primary care physician Clinical Quality Measures DVT/VTE Risk/Contraindication: Risk Factor Score Per Nursin RFS Level Per Nursing on Admit: 4+=Very High BINA RODRIGUEZ Aug 05, 2018 08:45
[2018-08-05] MEDS ORDERED: METO-333 PO (09:14)
[2018-08-05] MEDS: PHENAZOPYRIDINE 100 MG (PYRIDIUM) TABLET PO SCH ×2 (09:30→13:00)
[2018-08-05] MEDS: guaiFENesin/DM (ROBITUSSIN DM) 10 ML UDC PO SCH ×2 (09:30→14:54)
[2018-08-05] MEDS: DOCUSATE SODIUM 10 MG/ML 10 ML UDC (COLACE) PEG SCH (09:30)
[2018-08-05] MEDS: LACTOBACILLUS ACIDOPHILUS (PROBIOTIC) CAPSULE PO SCH (09:30)
[2018-08-05] MEDS: meTOprolol TARTRATE 25 MG (LOPRESSOR) TABLET PO SCH (09:30)
[2018-08-05] MEDS: DIGOXIN 0.125 MG (LANOXIN) TAB PO SCH (09:30)
[2018-08-05] MEDS: MEXILETINE 150 MG (MEXITIL) CAPSULE PO SCH (09:30)
[2018-08-05] MEDS: AMIODARONE 200 MG (CORDARONE) TAB PO SCH (09:30)
[2018-08-05] MEDS: CHOLESTYRAMINE 4 GM (QUESTRAN LITE, PREVALITE) PKT PO SCH (09:31)
[2018-08-05] MEDS: PANTOPRAZOLE 2 MG/ML LIQUID 200 ML (PROTONIX) PEG SCH ×3 (09:31)
[2018-08-05] MEDS: ASPIRIN 81 MG CHEW (CHILDREN'S ASA) PO SCH (09:31)
[2018-08-05] MEDS: MENTHOL/ZINC OXIDE (CALMOSEPTINE) 113 GM TUBE TOP SCH (09:31)
--- NOTE | 2018-08-05 09:52 | Cardiology Progress Note ---
Subjective Date Seen by Provider: Aug 05, 2018 Time Seen by Provider: 09:51 Subjective/Events-last exam Patient is sitting in a chair, feeling better, no new complaint Review of Systems General: No Chills, No Night Sweats, No Fatigue, No Malaise, No Appetite, No Other HEENT: No Head Aches, No Visual Changes, No Eye Pain, No Ear Pain, No Dysphasia , No Sinus Congestion, No Post Nasal Drip, No Sore Throat, No Other Pulmonary: No Dyspnea, No Cough, No Pleuritic Chest Pain, No Other Cardiovascular: No: Chest Pain, Palpitations, Orthopnea, Paroxysmal Noc. Dyspnea, Edema, Lt Headedness, Other Objective-Cardiology Exam Last Set of Vital Signs Vital Signs 08/05/18 08/05/18 08/05/18 06:00 07:41 08:00 Temp 98.6 Pulse 89 Resp 20 B/P (MAP) 117/72 (87) Pulse Ox 92 O2 Delivery Nasal Cannula O2 Flow Rate 2.00 Capillary Refill : I&O Intake and Output 08/05/18 00:00 Intake Total 2600 ml Output Total 1050 ml Balance 1550 ml Intake Oral 0 ml Tube Feeding 1440 ml Other 1160 ml Output Urine Total 1050 ml # Voids 4 # Urine Diapers 4 # Bowel Movements 3 General: Alert, Oriented X3, Cooperative, No Acute Distress HEENT: Atraumatic, PERRLA, EOMI, Mucous Memb Moist/[place] Neck: Supple, No JVD Lungs: Clear to Auscultation, Normal Air Movement, Other (coarse breath sounds are resolved today) Heart: Regular Rate, Normal S1, Normal S2 Abdomen: Normal Bowel Sounds, Soft, No Tenderness, Other (Peg Tube in place) Extremities: No Clubbing, Other (trace edema BLE) Skin: No Rashes Neuro: Normal Speech, Cranial Nerves 3-12 NL Psych/Mental Status: Mental Status NL, Mood NL, Other (subtle memory loss) Results Lab Laboratory Tests 08/05/18 05:40 A/P-Cardiology Admission Diagnosis Debility CAD HTN Chronic atrial fibrillation Assessment/Plan Debility, reporting improvement, managed by primary care physician Anemia, status post transfusion, EGD showed esophagitis and gastritis, followed and managed by primary care physician Status post respiratory failure, pneumonia, silent aspiration, on Antibiotics, followed by primary care physician Urosepsis, history of kidney stone and nephrostomy tube, on antibiotics and managed by primary care team Silent aspiration, status post feeding tube placement Coronary artery disease, history of CABG done in the remote past. Patient had a stent done in December 2001 using MultiLink 2.518 mm to the proximal right coronary artery, 2017 had a Cypher stent 3.530 mm to the proximal and mid circumflex artery. Has been followed and managed by primary operating room tech Dr. Mendez in [place]. Continue to follow History of congestive heart failure, reported ejection fraction 54 percent. MPI in 2013, continue to monitor Paroxysmal atrial fibrillation maintained on amiodarone, intolerant to oral anticoagulation secondary to recurrent nosebleed and anemia, Patient is maintained on Cardizem, Amiodarone,Lopressor and Digoxin, continue to monitor, no changes are recommended Patient has been maintained on mexiletine. Probably due to ventricular fibrillation and history of shock from his defibrillator, known to have [facility] ICD implanted by Dr. vidales in [place]. Continue on Mexiletine, Consult Dr Judd COPD, chronic dyspnea, followed by primary care physician Chronic pedal edema,continue to diurese and monitor electrolytes Diabetes mellitus, followed and managed by primary care physician Clinical Quality Measures DVT/VTE Risk/Contraindication: Risk Factor Score Per Nursin RFS Level Per Nursing on Admit: 4+=Very High JOHN ALFARO MD Aug 05, 2018 09:52
--- NOTE | 2018-08-05 09:58 | Physical Therapy Daily Note ---
PT Daily Note-Current Subjective Patient in recliner pre tx, agrees to PT, no complaints of pain. Appearance Patient in recliner post tx with nurse call, phone, tray, in room. Mental Status Patient Orientation: Person, Confused, Place Attachments: Oxygen Transfers Therapy Code Descriptions/Definitions Functional [place] Measure: 0=Not Assessed/NA 4=Minimal Assistance 1=Total Assistance 5=Supervision or Setup 2=Maximal Assistance 6=Modified [place] 3=Moderate Assistance 7=Complete [place] Therapy Quality Codes: 6 Independent with activity with or without an assistive device 5 Patient requires set up or clean up by helper. Patient completes activity by themselves 4 Supervision or touching assist (CGA). [place] provide cues , steadying assist 3 The helper provides less than half the effort to complete the activity 2 The helper provides more than half the effort to complete the activity 1 Dependent. The helper does all the effort to complete an activity 7 Patient refused to complete or attempt activity 9 The patient did not perform the activity before the current illness or injury 88 Not attempted due to Medical conditions or safety concerns Transfers (B, C, W/C) (FIM): 5 Scootin Rollin Roll Left to Right (QC): 6 Supine to/from Sit: 6 Sit to/from Stand: 5 Sit to Lying (QC): 6 Sit to Stand (QC): 4 Chair/Ztf-og-Cdbue Xfer(QC): 4 Bed to/from Chair: 5 Car Transfer (QC): 3 Patient performs bed mobility with mod I, sit to stand and stand pivot transfers with SBA, car transfer with min assist. Patient needs cues for safety and hand placement, tends to lunge toward chair to sit when tired. Weight Bearing Right Lower Extremity: Right Weight Bearing/Tolerated Left Lower Extremity: Left Weight Bearing/Tolerated Gait Training Gait (FIM): 5 Distance: 100'x2 Walk 10 feet (QC): 4 Walk 50 ft with 2 Turns(QC): 4 Walking 10ft/uneven surface-QC: 4 Gait Level of Assist: 4 Gait Persons Needed: 1 Gait Assistive Device: FWW Patient can ambulate 100' with a rolling walker with SBA (including 50' with at least 2 turns of 90 degrees but needs CGA for 10' over an uneven surface). Patient ambulates slowly and has uncoordinated steps, gets fatigued quickly and lunges toward chair to sit. Poor safety and decision making. Wheelchair Training Does the Pt Use a Wheelchair?: No Stair Training Patient is not safe to performs stairs, he is impulsive, and has poor safety awareness. Treatments bed mobility and transfers, ambulation, car transfer Assessment Current Status: Fair Progress slowly improving mobility PT Short Term Goals Short Term Goals Time Frame: Jul 29, 2018 Transfers (B,C,W/C) (FIM): 5 (met) Gait (FIM): 2 (met) Distance (FIM): 1=up to 49 ft Gait Assistive Device: FWW Wheelchair Distance: 200' PT Inventory Specialist Manager Goals Inventory Specialist Manager Goals PT Inventory Specialist Manager Goals Time Frame: Aug 12, 2018 Transfers (B,C,W/C) (FIM): 6 (met) Sit to Lying (QC): 6 (met) Lying-Sitting on Side/Bed(QC): 6 (met) Sit to Stand (QC): 6 Rollin (met) Roll Left to Right (QC): 6 (met) Chair/Pyu-nx-Pfzvo Xfer(QC): 6 Car Transfer (QC): 5 Does the Patient Walk: Yes Gait (FIM): 5 (household) Gait distance (FIM): 1=736-23 ft Walk 10 feet (QC): 6 Walk 10ft-Uneven Surface(QC): 6 Walk 50ft with 2 Turns (QC): 6 Walk 150 ft (QC): 88 Gait Level of Assist: 6 Gait Assistive Device: FWW Does the Pt use WC or Scooter?: Yes Wheelchair (FIM): 6 Wheelchair distance (FIM): 3=150 ft Wheel 50 feet with 2 turns (QC: 6 Stairs (FIM): 88 1 Step (curb) (QC): 88 4 Steps (QC): 88 12 Steps (QC): 88 Picking up an Object (QC): 88 PT Plan Problem List Problem List: Activity Tolerance, Functional Strength, Safety, Balance, Gait, Transfer, Bed Mobility, ROM Treatment/Plan Treatment Plan: Continue Plan of Care Treatment Plan: Bed Mobility, Education, Functional Activity Mckinley, Functional Strength, Group Therapy, Gait, Safety, Therapeutic Exercise, Transfers Treatment Duration: Aug 12, 2018 Frequency: At least 5 of 7 days/Wk (IRF) Estimated Hrs Per Day: 1.5 hours per day Patient and/or Family Agrees t: Yes Safety Risks/Education Patient Education: Gait Training, Transfer Techniques, Steps, Correct Positioning, Safety Issues Teaching Recipient: Patient Teaching Methods: Demonstration, Discussion Response to Teaching: Reinforcement Needed Time/GCodes Time In: 929 Time Out: 949 Total Billed Treatment Time: 20 Total Billed Treatment 1 visit GT 20' GODWIN CANDELARIO PT Aug 05, 2018 09:58
--- NOTE | 2018-08-05 10:05 | Therapy Team Discharge Summary ---
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 Upon evaluation patient performed bed mobility and transfers with CGA/Divya, no car transfer performed, ambulated 15' with a rolling walker with poor safety awareness. Patient has been performing bed mobility and transfer training, balance and endurance training, functional strengthening, gait training, and education. Patient has made some progress but has only met his long term care administrator goals for bed mobility. Now, patient performs bed mobility with mod I, sit to stand with SBA, transfers with SBA, car transfer min assist, and can ambulate 100' with a rolling walker with SBA ( including 50' with at least 2 turns of 90 degrees but needs CGA for 10' over an uneven surface), patient is unsafe to attempt stairs. Patient is being discharged from this facility today and will be discharged from PT at this time. Occupational Therapy Decreased Activ Tolerance, Impaired Cognition, Impaired I ADL's, Impaired Self- Care Skills PT Adult Protective Caseworker Goals Adult Protective Caseworker Goals PT Adult Protective Caseworker Goals Time Frame: Aug 12, 2018 Transfers (B,C,W/C) (FIM): 6 (met) Roll Left to Right (QC): 6 (met) Sit to Lying (QC): 6 (met) Lying-Sitting on Side/Bed(QC): 6 (met) Sit to Stand (QC): 6 Chair/Qft-xz-Cpslc Xfer(QC): 6 Car Transfer (QC): 5 Does the Patient Walk: Yes Gait (FIM): 5 (household) Gait distance (FIM): 3=434-30 ft Walk 10 feet (QC): 6 Walk 10ft-Uneven Surface(QC): 6 Walk 50ft with 2 Turns (QC): 6 Walk 150 ft (QC): 88 Gait Level of Assist: 6 Gait Assistive Device: FWW Does the Pt use WC or Scooter?: Yes Wheelchair (FIM): 6 Wheelchair distance (FIM): 3=150 ft Wheel 50 feet with 2 turns (QC: 6 Stairs (FIM): 88 1 Step (curb) (QC): 88 4 Steps (QC): 88 12 Steps (QC): 88 Picking up an Object (QC): 88 OT Chcf Goals Chcf Goals Time Frame: Aug 19, 2018 Eating (FIM): 5 Eating (QC): 5 Oral Hygiene (QC): 4 Grooming(FIM): 5 Bathing(FIM): 3 Shower/Bathe Self (QC): 3 Upper Body Dressing(FIM): 5 Upper Body Dressing (QC): 4 Lower Body Dressing(FIM): 4 Lower Body Dressing (QC): 4 On/Off Footwear (QC): 4 Toileting(FIM): 5 Toileting Hygiene (QC): 5 Transfers (B,C,W/C) (FIM): 5 Toilet/Commode Transfer(FIM): 5 Toilet/Commode Transfer (QC): 4 Additional Goals: 1-Demonstrate ADL Tasks, 2-Verbalize Understanding, 3- ImproveStrength/[place] 1=Demonstrate adherence to instructed precautions during ADL tasks. 2=Patient will verbalize/demonstrate understanding of assistive devices/ modifications for ADL. 3=Patient will improve strength/tolerance for activity to enable patient to perform ADL's. Speech Adult Protective Caseworker Goals Chcf Goals 1) Patient will improve memory, problem solving and auditory processing in order to return safely home. 2) Patient will demonstrate a safe swallow function for oral intake for maintaining nutrition/hydration. GODWIN CANDELARIO PT Aug 05, 2018 10:05
--- NOTE | 2018-08-05 11:53 | Speech Therapy Daily Note ---
Speech Daily Progress Note Subjective Date Seen by Provider: Aug 05, 2018 Time Seen by Provider: 00:15 Patient stated he was ready to go home. Objective Patient completed pharyngeal exercises for improved swallow function at 90% without verbal cues. Assessment Assessment Current Status: Good Progress, Fair Progress Treatment Plan Continue Plan of Care Communication Comprehension: 2 Expression: 2 Social Cognition Social Interaction: 2 Problem Solvin Memory: 2 Speech Short Term Goals Short Term Goals Short Term Goals 1) Patient will be able to recall new information with 80% or greater given minimal cues. 2) Patient will be able to name items/pictures presented with 80% or greater given minimal cues. 3) Patient will utilize compensatory strategies for safety within his room with 80% or greater given minimal cues. 4) Patient will complete pharyngeal exercises 5x/week in order to return to PO status. 5) Patient will tolerate trials of least restrictive diet level without s/s of aspiration. Speech Shelter Goals Concrete Bucket Hooker Goals 1) Patient will improve memory, problem solving and auditory processing in order to return safely home. 2) Patient will demonstrate a safe swallow function for oral intake for maintaining nutrition/hydration. Speech-Plan Patient/Family Goals Patient/Family Goals: Patient is returning home today with his and caregiver support. Treatment Plan Speech Therapy Treatment Plan: Discontinue ST, Goals Met Patient has progressed well with skilled therapy. Treatment Duration: Aug 05, 2018 Frequency: 5 times per week Estimated Hrs Per Day: .5 hour per day Rehab Potential: Fair Barriers to Learning: Patient has some mild cognitive deficits. Pt/Family Agrees to Plan: Yes Safety Risks/Education Teaching Recipient: Patient Teaching Methods: Discussion Response to Teaching: Verbalize Understanding Education Topics Provided: Safety and NPO status until cleared. Discussion with the patient and his that the PEG tube will not be removed until he has safe oral intake with the majority of his nutrition and hydration needs. Time Speech Therapy Time In: 11:15 Speech Therapy Time Out: 11:30 Total Billed Time: 15 Billed Treatment Time 1, PEDRO JULIA Mcdonald Aug 05, 2018 11:53
--- NOTE | 2018-08-05 12:04 | Therapy Team Discharge Summary ---
Therapy Discharge Summary Discharge Recommendations Date of Discharge 08/05/2018 Therapy D/C Recommendations: Physical Therapy Home Care Occupational Therapy Decreased Activ Tolerance, Impaired Cognition, Impaired I ADL's, Impaired Self- Care Skills Speech-Language Pathology Patient was admitted to the ARU in 07/16. Patient was a transfer from [facility] in [place] after being there for pneumonia. Patient had a PEG tube placed while admitted to [facility] due to severe dysphagia. Patient completed dysphagia exercises for strengthening his pharyngeal function. He also received cognitive exercises for his deficits to train him in retention of OME. He was given trial of thickened liquids and puree with severe coughing post intake. Patient is currently receiving all meds, hydration and nutrition via PEG tube until patient is deemed safe for oral intake. Patient is recommended for an MBS at a later date for determining if patient is safe to be an oral feeder. Patient is being discharged from his skilled ST at this time. PT Chcf Goals Auto Top Mechanic Goals PT Chcf Goals Time Frame: Aug 12, 2018 Transfers (B,C,W/C) (FIM): 6 (met) Roll Left to Right (QC): 6 (met) Sit to Lying (QC): 6 (met) Lying-Sitting on Side/Bed(QC): 6 (met) Sit to Stand (QC): 6 Chair/Pzc-mn-Dyxdk Xfer(QC): 6 Car Transfer (QC): 5 Does the Patient Walk: Yes Gait (FIM): 5 (household) Gait distance (FIM): 1=564-66 ft Walk 10 feet (QC): 6 Walk 10ft-Uneven Surface(QC): 6 Walk 50ft with 2 Turns (QC): 6 Walk 150 ft (QC): 88 Gait Level of Assist: 6 Gait Assistive Device: FWW Does the Pt use WC or Scooter?: Yes Wheelchair (FIM): 6 Wheelchair distance (FIM): 3=150 ft Wheel 50 feet with 2 turns (QC: 6 Stairs (FIM): 88 1 Step (curb) (QC): 88 4 Steps (QC): 88 12 Steps (QC): 88 Picking up an Object (QC): 88 OT Chcf Goals Chcf Goals Time Frame: Aug 19, 2018 Eating (FIM): 5 Eating (QC): 5 Oral Hygiene (QC): 4 Grooming(FIM): 5 Bathing(FIM): 3 Shower/Bathe Self (QC): 3 Upper Body Dressing(FIM): 5 Upper Body Dressing (QC): 4 Lower Body Dressing(FIM): 4 Lower Body Dressing (QC): 4 On/Off Footwear (QC): 4 Toileting(FIM): 5 Toileting Hygiene (QC): 5 Transfers (B,C,W/C) (FIM): 5 Toilet/Commode Transfer(FIM): 5 Toilet/Commode Transfer (QC): 4 Additional Goals: 1-Demonstrate ADL Tasks, 2-Verbalize Understanding, 3- ImproveStrength/M[place] 1=Demonstrate adherence to instructed precautions during ADL tasks. 2=Patient will verbalize/demonstrate understanding of assistive devices/ modifications for ADL. 3=Patient will improve strength/tolerance for activity to enable patient to perform ADL's. Speech Chcf Goals Auto Top Mechanic Goals 1) Patient will improve memory, problem solving and auditory processing in order to return safely home. Met. 2) Patient will demonstrate a safe swallow function for oral intake for maintaining nutrition/hydration. Patient is unsafe for oral intake at this time. JULIA WOODARD Aug 05, 2018 12:04
--- NOTE | 2018-08-05 12:09 | Occupational Ther Daily Note ---
OT Current Status-Daily Note Subjective Pt. smiles when OT comes into room. Appearance Pt. is in bed. Spouse in room. Pt. agrees to work with OT. Declines showering even with encouragement. Agrees to spongebathe. Mental Status/Objective Patient Orientation: Person Therapy Code Descriptions/Definitions Functional [place] Measure: 0=Not Assessed/NA 4=Minimal Assistance 1=Total Assistance 5=Supervision or Setup 2=Maximal Assistance 6=Modified [place] 3=Moderate Assistance 7=Complete [place] ADL-Treatment Spouse states that pt. can dress himself at home except for donning socks. Therapy Code Descriptions/Definitions Functional [place] Measure: 0=Not Assessed/NA 4=Minimal Assistance 1=Total Assistance 5=Supervision or Setup 2=Maximal Assistance 6=Modified [place] 3=Moderate Assistance 7=Complete [place] Therapy Quality Codes: 6 Independent with activity with or without an assistive device 5 Patient requires set up or clean up by helper. Patient completes activity by themselves 4 Supervision or touching assist (CGA). [place] provide cues , steadying assist 3 The helper provides less than half the effort to complete the activity 2 The helper provides more than half the effort to complete the activity 1 Dependent. The helper does all the effort to complete an activity 7 Patient refused to complete or attempt activity 9 The patient did not perform the activity before the current illness or injury 88 Not attempted due to Medical conditions or safety concerns Grooming (FIM): 88 Oral Hygiene (QC): 88 Bathing (FIM): 3 (Pt. requires CGA in stance and cues to wash pieter area. Pt. able to wash legs but requires assistance to wash feet.) Shower/Bathe Self (QC): 3 Upper Body (FIM): 5 Upper Body Dressing (QC): 4 Lower Body Dressing (FIM): 3 (Pt. is able to don his pants and requires SBA in stance to pull them up. Pt. does attempt to don socks, but is unable to and OT does this for him. Pt. requires min assist to don shoes.) Lower Body Dressing (QC): 3 On/Off Footwear (QC): 2 Transfers (B, C, W/C) (FIM): 4 (CGA when standing for dynamic balance.) Education OT Patient Education: Correct positioning, Modified ADL techniques, Progress toward Goal/Update tx plan, Purpose of tx/functional activities, Reviewed precautions, Rehab process, Transfer techniques Teaching Recipient: Patient, Significant Other Teaching Methods: Demonstration, Discussion Response to Teaching: Verbalize Understanding, Return Demonstration OT Short Term Goals Short Term Goals Time Frame: Jul 29, 2018 Eating(FIM): 4 Grooming(FIM): 3 Upper Body Dressing(FIM): 3 Lower Body Dressing(FIM): 3 Toileting(FIM): 4 Transfers (B,C,W/C) (FIM): 5 (met) Toilet/Commode Transfer(FIM): 4 Additional Short Term Goals: 1-Demonstrate ADL Tasks, 2-Verbalize Understanding , 3-ImproveStrength/M[place] 1=Demonstrate adherence to instructed precautions during ADL tasks. 2=Patient will verbalize/demonstrate understanding of assistive devices/ modifications for ADL. 3=Patient will improve strength/tolerance for activity to enable patient to perform ADL's. OT [facility] Goals Dog Track Kennel Manager Goals Time Frame: Aug 19, 2018 Eating (FIM): 5 Eating (QC): 5 Groomin Oral Hygiene (QC): 4 Bathing(FIM): 3 Shower/Bathe Self (QC): 3 Upper Body Dressing(FIM): 5 Upper Body Dressing (QC): 4 Lower Body Dressing(FIM): 4 Lower Body Dressing (QC): 4 On/Off Footwear (QC): 4 Toileting(FIM): 5 Toileting Hygiene (QC): 5 Transfers (B,C,W/C) (FIM): 5 Toilet/Commode Transfer(FIM): 5 Toilet/Commode Transfer (QC): 4 Additional Goals: 1-Demonstrate ADL Tasks, 2-Verbalize Understanding, 3- ImproveStrength/[place] 1=Demonstrate adherence to instructed precautions during ADL tasks. 2=Patient will verbalize/demonstrate understanding of assistive devices/ modifications for ADL. 3=Patient will improve strength/tolerance for activity to enable patient to perform ADL's. OT Education/Plan Problem List/Assessment Assessment: Decreased Activ Tolerance, Impaired I ADL's, Impaired Self-Care Skills Discharge Recommendations Plan/Recommendations: Discontinue OT Therapy D/C Recommendations: Home w/ Family Support, Scheduled Assistance Target Placement Pt. is going home with spouse. Pt. and spouse have caregiving assistance if they need it. Treatment Plan/Plan of Care Treatment,Training & Education: Yes Treatment Duration: Aug 19, 2018 Frequency: At least 5 of 7 days/Wk (IRF) Estimated Hrs Per Day: 1.5 hours per day Agreement: Yes Rehab Potential: Fair Time/GCodes Start Time: 08:15 Stop Time: 08:40 Total Time Billed (hr/min): 25 Billed Treatment Time 1, ADL x 2 ALFREDO STOVALL OT Aug 05, 2018 12:09
--- NOTE | 2018-08-05 12:16 | Therapy Team Discharge Summary ---
Therapy Discharge Summary Discharge Recommendations Date of Discharge 08-05-18 Therapy D/C Recommendations: Home w/ Family Support, Scheduled Assistance Occupational Therapy Pt. has been seen by occupational therapy to increase overall strength and independence with daily tasks. Pt. is at baseline level. Some goals are not met but pt. only requires the same assistance as he was at home, with spouse. OT has confirmed this with spouse. Pt. has all needed equipment. Pt. to discharge today with spouse and caregiving assistance. Decreased Activ Tolerance, Impaired I ADL's, Impaired Self-Care Skills PT Marketing And Communications Officer Goals Alf Goals PT Marketing And Communications Officer Goals Time Frame: Aug 12, 2018 Transfers (B,C,W/C) (FIM): 6 (met) Roll Left to Right (QC): 6 (met) Sit to Lying (QC): 6 (met) Lying-Sitting on Side/Bed(QC): 6 (met) Sit to Stand (QC): 6 Chair/Jot-zz-Qchpx Xfer(QC): 6 Car Transfer (QC): 5 Does the Patient Walk: Yes Gait (FIM): 5 (household) Gait distance (FIM): 9=969-20 ft Walk 10 feet (QC): 6 Walk 10ft-Uneven Surface(QC): 6 Walk 50ft with 2 Turns (QC): 6 Walk 150 ft (QC): 88 Gait Level of Assist: 6 Gait Assistive Device: FWW Does the Pt use WC or Scooter?: Yes Wheelchair (FIM): 6 Wheelchair distance (FIM): 3=150 ft Wheel 50 feet with 2 turns (QC: 6 Stairs (FIM): 88 1 Step (curb) (QC): 88 4 Steps (QC): 88 12 Steps (QC): 88 Picking up an Object (QC): 88 OT Marketing And Communications Officer Goals Marketing And Communications Officer Goals Time Frame: Aug 19, 2018 Eating (FIM): 5 (met) Eating (QC): 5 (met) Oral Hygiene (QC): 4 (not met) Grooming(FIM): 5 (not met) Bathing(FIM): 3 (met) Shower/Bathe Self (QC): 3 (not met) Upper Body Dressing(FIM): 5 (met) Upper Body Dressing (QC): 4 (met) Lower Body Dressing(FIM): 4 (not met) Lower Body Dressing (QC): 4 (not met) On/Off Footwear (QC): 4 (not met) Toileting(FIM): 5 (not met) Toileting Hygiene (QC): 5 (not met) Transfers (B,C,W/C) (FIM): 5 (not met) Toilet/Commode Transfer(FIM): 5 (not met) Toilet/Commode Transfer (QC): 4 (met) Additional Goals: 1-Demonstrate ADL Tasks, 2-Verbalize Understanding, 3- ImproveStrength/Mckinley 1=Demonstrate adherence to instructed precautions during ADL tasks. 2=Patient will verbalize/demonstrate understanding of assistive devices/ modifications for ADL. 3=Patient will improve strength/tolerance for activity to enable patient to perform ADL's. Speech Marketing And Communications Officer Goals Marketing And Communications Officer Goals 1) Patient will improve memory, problem solving and auditory processing in order to return safely home. Met. 2) Patient will demonstrate a safe swallow function for oral intake for maintaining nutrition/hydration. Patient is unsafe for oral intake at this time. ALFREDO STOVALL OT Aug 05, 2018 12:16
--- NOTE | 2018-08-05 14:20 | NUR ---
SRI PEOPLES demonstrates understanding of discharge instructions and accurately returns instructions upon questioning. Copy of Post-Discharge Instructions given to pt. SRI PEOPLES is able to manage continuing needs after discharge with HHC, PT/OT/ST. Patients belongings returned to . Patient discharged from 226-1 on 08-05-18 at 1420. SRI PEOPLES left floor via , accompanied by .
[2018-08-05 15:24] VITALS: BP 117/72
--- NOTE | 2018-08-05 17:47 | NUR ---
Notified DME that pt has not received tube feedings at of this time. Rui stated that he would call pts back and deliver to address.
== END 2018-08-05 14:20 | disposition home health service (06) | DRG 91 ==
PROVIDERS: ADMIT Physical Medicine & Rehabilitation; ATTEND Physical Medicine & Rehabilitation
PROC: 0DJD8ZZ Inspection of Lower Intestinal Tract, Via Natural or Artificial Opening Endoscopic (ICD-10-PCS; 2018-07-29)
PROC: 0DB78ZX Excision of Stomach, Pylorus, Via Natural or Artificial Opening Endoscopic, Diagnostic (ICD-10-PCS; principal; 2018-07-29 12:00)
PROC: 0DB48ZX Excision of Esophagogastric Junction, Via Natural or Artificial Opening Endoscopic, Diagnostic (ICD-10-PCS; 2018-07-29 12:00)
DX: G72.89 Other specified myopathies (principal); J15.212 Pneumonia due to Methicillin resistant Staphylococcus aureus; N39.0 Urinary tract infection, site not specified; J96.10 Chronic respiratory failure, unspecified whether with hypoxia or hypercapnia; K29.61 Other gastritis with bleeding; I42.9 Cardiomyopathy, unspecified; D50.0 Iron deficiency anemia secondary to blood loss (chronic); I48.0 Paroxysmal atrial fibrillation; N20.0 Calculus of kidney; N13.9 Obstructive and reflux uropathy, unspecified; I11.0 Hypertensive heart disease with heart failure; I50.9 Heart failure, unspecified; R60.9 Edema, unspecified; R32 Unspecified urinary incontinence; R15.9 Full incontinence of feces; R13.10 Dysphagia, unspecified; R19.7 Diarrhea, unspecified; K21.0 Gastro-esophageal reflux disease with esophagitis; K64.1 Second degree hemorrhoids; K57.30 Diverticulosis of large intestine without perforation or abscess without bleeding; E11.59 Type 2 diabetes mellitus with other circulatory complications; E11.40 Type 2 diabetes mellitus with diabetic neuropathy, unspecified; I25.10 Atherosclerotic heart disease of native coronary artery without angina pectoris; J44.9 Chronic obstructive pulmonary disease, unspecified; F03.90 Unspecified dementia, unspecified severity, without behavioral disturbance, psychotic disturbance, mood disturbance, and anxiety; B96.5 Pseudomonas (aeruginosa) (mallei) (pseudomallei) as the cause of diseases classified elsewhere; Z79.4 Long term (current) use of insulin; Z93.1 Gastrostomy status; Z99.81 Dependence on supplemental oxygen; Z95.1 Presence of aortocoronary bypass graft
CPT/HCPCS: 36415; 71046; 80053; 80202; 82274; 82728; 82962; 83540; 85025; 85027; 85652; 86850; 86900; 86901; 86920; 88305; 88342; 94640; 94760

== ENCOUNTER 2018-08-24 10:07 | Day surgery (SDC) | payer MEDICARE, MEDICAID ==
[2018-08-24] VITALS (14 sets, daily range): BP systolic 108–190; BP diastolic 50–91
[~2018-08-24] VITALS: Ht 165.1 cm; Wt 72.6 kg
[~2018-08-24 10:07] MED LIST changes: -AMLO5TAB7 PO; +AMLO5TAB9 PO; +ASPI-999 PO; +ATOR40TA PO; +CHOL4PAC3 PO; +DILT60TA PO; +DOCU-143 PO; +INSU100V16 SQ; +LOSA100T57 PO; -LOSA100T8 PO; +LOSA50TA63 PO; -LOSA50TA7 PO; +MAGN311T5 PO; +MAGN400O7 PO; +MENT71OI TOP; +METO-387 PO; +ONDN4T PO; +PANT40TA2 PO; +PHEN-640 PO; +POTA20PA28 PEG; +POTA20PA28 PO
--- OUTSIDE RECORDS SUMMARY | 2018-08-24 10:12 | XMS REPORT ---
Author Author NAE BERMEO Organization [facility] Address [address] [place] [address] Care Team Providers Care Accounting Machine Servicer Name Role Phone NAE BERMEO Unavailable PROBLEMS Type Condition ICD9-CM Code BGD67-MM Code Onset Dates Condition Status SNOMED Code Problem Coronary artery disease involving [place] coronary artery of [place] heart without angina pectoris I25.10 Active 8105910898223 Problem Chronic obstructive pulmonary disease, unspecified COPD type J44.9 Active 33406000 Problem Essential hypertension I10 Active 89359176 Problem Chronic congestive heart failure, unspecified congestive heart failure type I50.9 Active 69081303 Problem Cardiac defibrillator in place Z95.810 Active 975094946 Problem Constipation, unspecified constipation type K59.00 Active 03693802 Problem Type 2 diabetes mellitus without complications E11.9 Active 886603300 Problem Ventricular arrhythmia I49.9 Active 39702930 Problem Stasis dermatitis of both legs I87.2 Active 01813161 Problem intermediate current use of insulin Z79.4 Active 968303611 Problem Other atherosclerosis of [place] arteries of extremities, 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 Active 09880928 ALLERGIES Substance Reaction Event Type Date Status Penicillin V Potassium rash Drug Allergy May, Active Codeine Phosphate Unknown Drug Allergy May, Active ENCOUNTERS Encounter Location Date Diagnosis [facility] [id number] [address] May, [facility] [id number] [address] May, [facility] [id number] [address] May, [facility] [id number] [address] May, Periumbilical abdominal pain R10.33 and Constipation, unspecified constipation type K59.00 [facility] [id number] [place] [address] Apr, [facility] [id number] [place] [address] Apr, Type 2 diabetes mellitus without complications E11.9 ; Flank pain R10.9 ; Essential hypertension I10 and Coronary artery disease involving [place] coronary artery of [place] heart without angina pectoris I25.10 [facility] [address] [address] Apr, Dysuria R30.0 [place] [address] [address] Apr, Acute cystitis without hematuria N30.00 ; Encounter for immunization Z23 and BMI 40.0-44.9, adult Z68.41 [place] [address] [address] Apr, [facility] [id number] [place] [address] Mar, [facility] [address] [address] Mar, [facility] [id number] [place] [address]- [address] Feb, [facility] [id number] [place] [address]- 8[address] Feb, [facility] [id number] [place] [address]- 1898 Feb, [facility] [id number] [place] [address]- 24[address] Jan, [facility] [id number] [place] [address]66- 5[address] Jan, [facility] [id number] [place] [address]- 6205 Jan, Acute cystitis with hematuria N30.01 and Dysuria R30.0 [facility] [address] [address] Jan, [facility] [address] [address] Jan, [facility] [address] [address] Jan, [facility] [id number] [place] [address]- [address] Jan, Type 2 diabetes mellitus without complications E11.9 ; intermediate current use of insulin Z79.4 ; History of respiratory failure Z87.09 and History of sepsis Z86.19 [facility] [address] [address] Jan, [facility] [address] [address] Jan, [facility] [address] [address] Jan, [facility] [address] [address] Jan, [facility] [address] [address] Jan, [facility] [address] [address] Dec, [facility] [address], [place] [address] November, Acute cystitis without hematuria N30.00 [facility] [address] [address] November, Acute cystitis without hematuria N30.00 [facility] [address] [address] November, [facility] [address] [address] 10 Oct, 2017 Medicare annual wellness visit, initial Z00.00 ; Encounter for immunization Z23 ; Chronic obstructive pulmonary disease, unspecified COPD type J44.9 ; Coronary artery disease involving [place] coronary artery of [place] heart without angina pectoris I25.10 ; Chronic congestive heart failure, unspecified congestive heart failure type I50.9 ; Essential hypertension I10 ; Ventricular arrhythmia I49.9 and Other atherosclerosis of [place] arteries of extremities, 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 [facility] [id number] [place] [address] Sep, Chronic congestive heart failure, unspecified congestive heart failure type I50.9 [place] [id number] [place] [address]- [address] 20 Aug, 2017 [place] [id number] [place] [address]- [address] 13 Aug, 2017 Chronic congestive heart failure, unspecified congestive heart failure type I50.9 ; Chronic obstructive pulmonary disease, unspecified COPD type J44.9 and Bilateral impacted cerumen H61.23 [facility] [id number] [place] [address]- [address] Jul, [place] [id number] [place] [address] Jul, [facility] [id number] [place] [address]- 2[address] Jun, [facility] [id number] [place] [address] 90053- 1714 Jun, [facility] [id number] [place] [address] 748[address]- 6[address] 12 Jun, 2017 Coronary artery disease involving [place] coronary artery of [place] heart without angina pectoris I25.10 [facility] [id number] [place] [address]- [address] Jun, [facility] [id number] [place] [address]- [address] May, Chronic obstructive pulmonary disease, unspecified COPD type J44.9 and History of pneumonia Z87.01 [facility] [id number] [place] [id number] May, [facility] [id number] [place] [address] 10134- 18[address] May, [facility] [id number] [place] [address] 30684- 29[address] May, [facility] [id number] [place] [address] 30062- 0802 May, [facility] [id number] [place] [address]- 4832 Apr, [facility] [id number] [place] [address] 99081- 0258 Apr, Coronary artery disease involving [place] coronary artery of [place] heart without angina pectoris I25.10 and Ventricular arrhythmia I49.9 [facility] [id number] [place] [address] 31494- 5033 Apr, [facility] [id number] [place] [address] 04154- 4473 Apr, [facility] [address] [place] [address] Apr, Dysuria R30.0 and Acute cystitis without hematuria N30.00 [facility] [id number] [place] [address]- 1391 Feb, Epistaxis R04.0 and Chronic obstructive pulmonary disease, unspecified COPD type J44.9 [facility] [id number] [place] [address] 60332- 2590 Jan, Fall from other pedestrian conveyance, initial encounter V00.891A [facility] [id number] [place] [address] 42516- 9225 Jan, Chronic congestive heart failure, unspecified congestive heart failure type I50.9 ; Chronic obstructive pulmonary disease, unspecified COPD type J44.9 and Stasis dermatitis of both legs I87.2 [facility] [address] [address] November, Chronic congestive heart failure, unspecified congestive heart failure type I50.9 [facility] [address], [place] [address] November, Coronary artery disease involving [place] coronary artery of [place] heart without angina pectoris I25.10 ; Chronic congestive heart failure, unspecified congestive heart failure type I50.9 and Chronic obstructive pulmonary disease, unspecified COPD type J44.9 [facility] [address] [place] [address] Oct, [facility] [address] [place] [address] Oct, [facility] [id number] [place] [id number] Oct, [facility] [id number] [place] [id number] Sep, [facility] [address] [place] [id number] Sep, Essential hypertension I10 and Chronic congestive heart failure, unspecified congestive heart failure type I50.9 [facility] [id number] [id number] Sep, [facility] [address] [place] [address] Sep, [facility] [address] [address]- 9[address] Jun, [facility] [address] [address] Jun, [facility] [address] [address] May, [facility] [address] [place] [address] 23881- 8231 May, [facility] [address] [place] [address] May, [facility] [address] [place] [address] May, [facility] [address] [address] May, Chronic congestive heart failure, unspecified congestive heart failure type I50.9 [facility] [address] [address] May, Pain of right lower extremity M79.604 ; History of atrial fibrillation without current medication Z86.79 and Acute deep vein thrombosis ( DVT) of femoral vein of right lower extremity I82.411 [facility] [address] [address] May, [facility] [address] [address] Feb, [facility] [address] [place] [address] Feb, Coronary artery disease involving [place] coronary artery of [place] heart without angina pectoris I25.10 ; Chronic congestive heart failure, unspecified congestive heart failure type I50.9 ; Cardiac defibrillator in place Z95.810 and Candidiasis B37.9 IMMUNIZATIONS No Known Immunizations SOCIAL HISTORY Never Assessed REASON FOR VISIT TCM call/med list update PLAN OF CARE VITAL SIGNS MEDICATIONS Medication Instructions Dosage Frequency Start Date End Date Duration Status Nebulizer - as directed May, Active Amlodipine Besylate 5 MG Orally Once a day 1 tablet 24h Not-Taking Furosemide 40 mg Orally twice a day 1 tablet 12h Active Albuterol Sulfate 1.25 MG/3ML Inhalation 2 times a day as directed 12h May, Active Nexium 40 mg Orally Once a day 1 capsule 24h 30 days Active Potassium Chloride 8mg Orally Once a day as directed 24h Active Levaquin 500 mg Orally Once a day 1 tablet 24h Jan, 7 days Not -Taking Wheelchair - to use for Mobility 24h Aug, Active Digoxin 125 mcg Orally Once a day 1 tablet 24h 30 days Active Oxygen Active Metoprolol Tartrate 50 mg Orally Twice a day 1/2 tablets in the am, and pm 12h Active Amiodarone HCl 200 mg Orally three times a week on Sun, Wed, Sat. in addition to daily dose 2 tablets at 1999 Active Amiodarone HCl 200 mg Orally Once a day on Sunday, Sunday, and Sunday 1 tablet Active Ventolin HFA 108 (90 Base) MCG/ACT Inhalation every 6 hrs 2 puffs as needed 6h Active Mexiletine HCl 150 MG Orally 3 times a day 1 capsule 8h 30 day(s) Active RESULTS No Results PROCEDURES No Known procedures INSTRUCTIONS MEDICATIONS ADMINISTERED No Known Medications MEDICAL (GENERAL) HISTORY Type Description Date Medical History hypertension Medical History skin cancer-arms, face Medical History [place] Medical History Pneumonia Medical History shingles Surgical History heart cath-2 stents, multiple balloons Surgical History open heart surgery 1987 Surgical History defibrillator placed 2013 Hospitalization History surgery Hospitalization History pneumonia 2014 Hospitalization History broken left hip at September Hospitalization History Bronchitis/clinical Pneumonia,hypoxia,sepsis - [facility] [place] 06/21/17 Hospitalization History [facility]- Cardiomyopathy, Defibrillator discharge 01/04/2018 Hospitalization History [facility]F 02/09/2018
--- OUTSIDE RECORDS SUMMARY | 2018-08-24 10:12 | XMS REPORT ---
Author Author ABHINAV GONZALEZ Organization [facility] Address [address] [place] [address] Care Team Providers Care Plastic Mixer Name Role Phone ABHINAV GONZALEZ Unavailable PROBLEMS Type Condition ICD9-CM Code CCP79-IC Code Onset Dates Condition Status SNOMED Code Problem Coronary artery disease involving [place] coronary artery of [place] heart without angina pectoris I25.10 Active [id number] Problem Chronic obstructive pulmonary disease, unspecified COPD type J44.9 Active 37571173 Problem Essential hypertension I10 Active 30109620 Problem Chronic congestive heart failure, unspecified congestive heart failure type I50.9 Active 65128399 Problem Cardiac defibrillator in place Z95.810 Active 178970553 Problem Constipation, unspecified constipation type K59.00 Active 78725850 Problem Type 2 diabetes mellitus without complications E11.9 Active 054762447 Problem Ventricular arrhythmia I49.9 Active 18634269 Problem Stasis dermatitis of both legs I87.2 Active 81434856 Problem superintendent terminal current use of insulin Z79.4 Active 580974972 Problem Other atherosclerosis of [place] arteries of extremities, 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 Active 59165357 ALLERGIES No Information ENCOUNTERS Encounter Location Date Diagnosis [facility] [id number] [place] [address] 06355- 5413 May, [facility] [id number] [place] [address] 13283- 4375 May, [facility] [id number] [place] [address] 80720- 5038 May, [facility] [id number] [place] [address]8423 -2687 May, Periumbilical abdominal pain R10.33 and Constipation, unspecified constipation type K59.00 [facility] [id number] [place] [address] 99158- 0169 Apr, [facility] [address] [address] Apr, Type 2 diabetes mellitus without complications E11.9 ; Flank pain R10.9 ; Essential hypertension I10 and Coronary artery disease involving [place] coronary artery of [place] heart without angina pectoris I25.10 [facility] [id number] [place] [address] 52452- 1862 Apr, Dysuria R30.0 [facility] [id number] [place] [address] 58872- 5171 Apr, Acute cystitis without hematuria N30.00 ; Encounter for immunization Z23 and BMI 40.0-44.9, adult Z68.41 [facility] [id number] [address] Apr, [facility] [id number] [place] [address] 17163- 4259 Mar, [facility] [id number] [place] [address] 00718- 1849 Mar, [facility] [id number] [place] [address] 95109- 7104 Feb, [facility] [id number] [address] 4[address] Feb, [facility] [id number] [address] 7012 Feb, [facility] [address] [address] 09[address] Jan, [facility] [id number] [place] [address] 533650- 8839 Jan, [facility] [address] [address] 16[address] Jan, Acute cystitis with hematuria N30.01 and Dysuria R30.0 [facility] [address] [place] [address] Jan, [facility] [address] [address] 7[address] Jan, [facility] [address] [address] 7[address] Jan, [facility] [address] [address] 44[address] Jan, Type 2 diabetes mellitus without complications E11.9 ; superintendent terminal current use of insulin Z79.4 ; History of respiratory failure Z87.09 and History of sepsis Z86.19 [facility] [address] [address] Jan, [facility] [address] [address] 8851 Jan, [facility] [address] [address] 8789 Jan, [facility] [address] [address] 8468 Jan, [facility] [address] [address] 2886 Jan, [facility] [id number] [address] Dec, [facility] [id number] [address] November, Acute cystitis without hematuria N30.00 [facility] [id number] [address] November, Acute cystitis without hematuria N30.00 [facility] [id number] [address] 2868 November, [facility] [id number] [address] 4534 Oct, Medicare annual wellness visit, initial Z00.00 ; Encounter for immunization Z23 ; Chronic obstructive pulmonary disease, unspecified COPD type J44.9 ; Coronary artery disease involving [place] coronary artery of [place] heart without angina pectoris I25.10 ; Chronic congestive heart failure, unspecified congestive heart failure type I50.9 ; Essential hypertension I10 ; Ventricular arrhythmia I49.9 and Other atherosclerosis of [place] arteries of extremities, 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 [place] [address] [address]- [address]60 08 Sep, 2017 Chronic congestive heart failure, unspecified congestive heart failure type I50.9 [place] [facility] [id number] [place] [address] 35040- 9864 Aug, [place] [address] 9[address]01- 2596 13 Aug, 2017 Chronic congestive heart failure, unspecified congestive heart failure type I50.9 ; Chronic obstructive pulmonary disease, unspecified COPD type J44.9 and Bilateral impacted cerumen H61.23 [facility] [id number] [place] [address] 10960- 5643 Jul, [place] [address] 38352- 9811 Jul, [place] [id number] [place] [address] 19750- 4869 27 Jun, 2017 [place] [id number] [place] [address] 11316- 7535 Jun, [place] [id number] [place] [address] 88250- 9705 12 Jun, 2017 Coronary artery disease involving [place] coronary artery of [place] heart without angina pectoris I25.10 [place] [address] 75804- 3562 11 Jun, 2017 [place] [id number] [place] [address] 40335- 8665 30 May, 2017 Chronic obstructive pulmonary disease, unspecified COPD type J44.9 and History of pneumonia Z87.01 [facility] [id number] [address] May, [facility] [id number] [place] [address] 38026- 1432 May, [facility] [id number] [place] [address] 12960- 0470 May, [facility] [address] 12899- 4402 May, [facility] [id number] [place] [address] 28895- 5510 Apr, [facility] [id number] [place] [address] 29982- 6246 Apr, Coronary artery disease involving [place] coronary artery of [place] heart without angina pectoris I25.10 and Ventricular arrhythmia I49.9 [facility] [id number] [place] [address] 83300- 7918 Apr, [facility] [id number] [place] [address] 45286- 5053 Apr, [facility] [id number] [place] [address] 09643 -6578 Apr, Dysuria R30.0 and Acute cystitis without hematuria N30.00 [facility] [id number] [place] [address] 05066- 7365 Feb, Epistaxis R04.0 and Chronic obstructive pulmonary disease, unspecified COPD type J44.9 [facility] [id number] [place] [address] 05983- 4445 Jan, Fall from other pedestrian conveyance, initial encounter V00.891A [facility] [id number] [place] [address] 37415- 1532 Jan, Chronic congestive heart failure, unspecified congestive heart failure type I50.9 ; Chronic obstructive pulmonary disease, unspecified COPD type J44.9 and Stasis dermatitis of both legs I87.2 [facility] [address] [facility] [id number] [address] 9[address] November, Chronic congestive heart failure, unspecified congestive heart failure type I50.9 [facility] [address] [address]- 3368 November, Coronary artery disease involving [place] coronary artery of [place] heart without angina pectoris I25.10 ; Chronic congestive heart failure, unspecified congestive heart failure type I50.9 and Chronic obstructive pulmonary disease, unspecified COPD type J44.9 [facility] [address] [facility] [id number], [place] [address]- 9590 Oct, [facility] [address] [facility] [id number] [address]- 4668 Oct, [facility] [id number] [address] Oct, [facility] [id number] [place] [address] [id number] Sep, [facility] [address] [facility] [address] [place] [id number] Sep, Essential hypertension I10 and Chronic congestive heart failure, unspecified congestive heart failure type I50.9 [facility] [id number] [id number] Sep, [facility] [id number], [place] [address]- 4559 Sep, [facility] [id number], [place] [address]- 4529 Jun, [facility] [id number], [place] [address]- 1419 Jun, [facility] [address] [address] 5599 May, [facility] [id number], [place] [address]- 9580 May, [facility] [address], [place] [address]- 7578 May, [facility] [address], [place] [address]- 8103 May, [facility] [id number] [place] [address] 12787- 0726 May, Chronic congestive heart failure, unspecified congestive heart failure type I50.9 [facility] [id number] [place] [address] 65475 -3981 May, Pain of right lower extremity M79.604 ; History of atrial fibrillation without current medication Z86.79 and Acute deep vein thrombosis ( DVT) of femoral vein of right lower extremity I82.411 [facility] [id number] [place] [address] 92432- 5300 May, [facility] [id number] [place] [address] 77775- 4845 Feb, [place] [id number] [place] [address] 76425- 3542 Feb, Coronary artery disease involving [place] coronary artery of [place] heart without angina pectoris I25.10 ; Chronic [...] face Medical History AL Medical History Pneumonia Medical History shingles Surgical History heart cath-2 stents, multiple balloons Surgical History open heart surgery 1987 Surgical History defibrillator placed 2013 Hospitalization History surgery Hospitalization History pneumonia 2014 Hospitalization History broken left hip at September Hospitalization History Bronchitis/clinical Pneumonia,hypoxia,sepsis - [facility] [place], operated by [facility] 06/21/17 Hospitalization History [facility]- Cardiomyopathy, Defibrillator discharge 01/04/2018 Hospitalization History CHF 02/09/2018
--- OUTSIDE RECORDS SUMMARY | 2018-08-24 10:12 | XMS REPORT ---
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 Active 8864381435883 Problem Chronic obstructive pulmonary disease, unspecified COPD type J44.9 Active 44463753 Problem Essential hypertension I10 Active 11670317 Problem Chronic congestive heart failure, unspecified congestive heart failure type I50.9 Active 77718067 Problem Cardiac defibrillator in place Z95.810 Active 145456620 Problem Constipation, unspecified constipation type K59.00 Active 66192316 Problem Type 2 diabetes mellitus without complications E11.9 Active 866541672 Problem Ventricular arrhythmia I49.9 Active 32036039 Problem Stasis dermatitis of both legs I87.2 Active 93948415 Problem 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 Active 268132446 Problem 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, 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 Active 61889676 ALLERGIES No Information ENCOUNTERS Encounter Location Date Diagnosis [facility] [address], [place] [address] Jun, [facility] [id number] [place] [address] May, [facility] [id number] [place] [address] 08867- 8531 May, [facility] [id number] [place] [address] 80712- 69[address] May, [facility] [address], [place] [address] May, 2018 Periumbilical abdominal pain R10.33 and Constipation, unspecified constipation type K59.00 [facility] [id number] [place] [address] 75777- 5078 Apr, [facility] [id number] [place] [address] 80610- 7849 Apr, Type 2 diabetes mellitus without complications E11.9 ; Flank pain R10.9 ; Essential hypertension I10 and 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.10 [facility] [id number] [place] [address] 47705- 6023 Apr, Dysuria R30.0 [facility] [address] [address] Apr, Acute cystitis without hematuria N30.00 ; Encounter for immunization Z23 and BMI 40.0-44.9, adult Z68.41 [facility] [id number] [place] [address] 35895- 1316 Apr, [facility] [id number] [place] [address] 54953- 7584 Mar, [facility] [id number] [place] [address] 28073- 8215 Mar, [facility] [id number] [place] [address] 47765- 0501 Feb, [facility] [id number] [place] [address] 67197- 5486 Feb, [facility] [id number] [place] [address] 55888- 3088 Feb, [facility] [address] [address]- [address] Jan, [facility] [id number] [place] [address] 00048- 3286 Jan, [facility] [id number] [place] [address] 50478- 3483 Jan, Acute cystitis with hematuria N30.01 and Dysuria R30.0 [facility] [address], [place] [address] Jan, [facility] [address], [place] [address] Jan, [facility] [address], [place] [address] Jan, [facility] [address] [place] [address] 56736- 5089 Jan, Type 2 diabetes mellitus without complications E11.9 ; [facility] current use of insulin Z79.4 ; History of respiratory failure Z87.09 and History of sepsis Z86.19 [facility] [address], [place] [address] Jan, [facility] [id number], [place] [address] Jan, [facility] [address], [place] [address] Jan, [facility] [address], [place] [address] Jan, [facility] [address], [place] [address] Jan, [facility] [address], [place] [address] Dec, [facility] [address], [place] [address] November, Acute cystitis without hematuria N30.00 [facility] [address], [place] [address] November, Acute cystitis without hematuria N30.00 [facility] [address], [place] [address] November, [facility] [address], [place] [address] 10 Oct, 2017 Medicare annual wellness visit, initial Z00.00 ; Encounter for immunization Z23 ; Chronic obstructive pulmonary disease, unspecified COPD type J44.9 ; 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.10 ; Chronic congestive heart failure, unspecified congestive heart failure type I50.9 ; Essential hypertension I10 ; Ventricular arrhythmia I49.9 and 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, 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 [facility] [id number] [place] [address] 36800- 7167 Sep, Chronic congestive heart failure, unspecified congestive heart failure type I50.9 [facility] [id number] [place] [address] 00400- 5541 Aug, [facility] [id number] [place] [address] 91517- 9843 13 Aug, 2017 Chronic congestive heart failure, unspecified congestive heart failure type I50.9 ; Chronic obstructive pulmonary disease, unspecified COPD type J44.9 and Bilateral impacted cerumen H61.23 [facility] [id number] [place] [address] 78729- 0157 Jul, [facility] [id number] [place] [address] 90899- 5255 Jul, [facility] [id number] [place] [address] 27913- 1793 Jun, [facility] [id number] [place] [address] 05424- 0052 Jun, [facility] [id number] [place] [address] 48092- 3877 12 Jun, 2017 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.10 [facility] [id number] [place] [address] 15070- 8832 11 Jun, 2017 [facility] [id number] [place] [address] 61728- 7363 May, Chronic obstructive pulmonary disease, unspecified COPD type J44.9 and History of pneumonia Z87.01 [facility] [id number] [place] [id number] May, [facility] [id number] [place] [address] 56823- 6059 May, [facility] [address] [address]- [address] May, [facility] [id number] [place] [address] 07114- 0565 May, [facility] [id number] [place] [address] 75090- 0150 Apr, [facility] [id number] [place] [address] 10534- 1804 Apr, 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.10 and Ventricular arrhythmia I49.9 [facility] [id number] [place] [address] 10559- 2166 Apr, [facility] [id number] [place] [address] 77854- 7569 Apr, [facility] [id number] [place] [address] 69001 [address] Apr, Dysuria R30.0 and Acute cystitis without hematuria N30.00 [facility] [id number] [place] [address] 80458- 9285 Feb, Epistaxis R04.0 and Chronic obstructive pulmonary disease, unspecified COPD type J44.9 [facility] [id number] [place] [address] 49624- 4385 Jan, Fall from other pedestrian conveyance, initial encounter V00.[address] [facility] [id number] [place] [address] 93754- 0106 Jan, Chronic congestive heart failure, unspecified congestive heart failure type I50.9 ; Chronic obstructive pulmonary disease, unspecified COPD type J44.9 and Stasis dermatitis of both legs I87.2 [facility] [address] [address] November, Chronic congestive heart failure, unspecified congestive heart failure type I50.9 [facility] [address] [facility] [id number] [address] November, 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.10 ; Chronic congestive heart failure, unspecified congestive heart failure type I50.9 and Chronic obstructive pulmonary disease, unspecified COPD type J44.9 [facility] [address] [address] Oct, [facility] [address] [address] Oct, [facility] [id number] [place] [address] [id number] Oct, [facility] [id number] [place] [address] [id number] Sep, [facility] [place] [address] [place] [id number] Sep, Essential hypertension I10 and Chronic congestive heart failure, unspecified congestive heart failure type I50.9 [facility] [id number] [id number] Sep, [facility] [address] [address] Sep, [facility] [address] [address] Jun, [facility] [address] [address] Jun, [facility] [address] [address] May, [facility] [id number] [address] May, [facility] [address] [address]- 8719 May, [facility] [address], [place] [address]- 5662 May, [facility] [address], [place] [address]- [address] May, Chronic congestive heart failure, unspecified congestive heart failure type I50.9 [facility] [address], [place] [address] May, Pain of right lower extremity M79.604 ; History of atrial fibrillation without current medication Z86.79 and Acute deep vein thrombosis ( DVT) of femoral vein of right lower extremity I82.411 [facility] [address] [place] [address] 14034- 4830 May, [facility] [id number] [place] [address] 24389- 0601 Feb, [facility] [address] [place] [address] 13457- 0433 Feb, 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.10 ; Chronic congestive heart failure, unspecified congestive heart failure type I50.9 ; Cardiac defibrillator in place Z95.810 and Candidiasis B37.9 IMMUNIZATIONS No Known Immunizations SOCIAL HISTORY Never Assessed REASON FOR VISIT ED visit note PLAN OF CARE VITAL SIGNS MEDICATIONS Unknown Medications RESULTS No Results PROCEDURES No Known procedures INSTRUCTIONS MEDICATIONS ADMINISTERED No Known Medications MEDICAL (GENERAL) HISTORY Type Description Date Medical History hypertension Medical History skin cancer-arms, face Medical History OR Medical History Pneumonia Medical History shingles Surgical History heart cath-2 stents, multiple balloons Surgical History open heart surgery 1987 Surgical History defibrillator placed 2013 Hospitalization History surgery Hospitalization History pneumonia 2014 Hospitalization History broken left hip at September Hospitalization History Bronchitis/clinical Pneumonia,hypoxia,sepsis - Via [facility] 06/21/17 Hospitalization History [facility]- Cardiomyopathy, Defibrillator discharge 01/04/2018 Hospitalization History [facility] 02/09/2018
--- OUTSIDE RECORDS SUMMARY | 2018-08-24 10:13 | XMS REPORT ---
Author Author KAYLAH CURTIS [facility] Address [address] [place] [address] Care Team Providers Care Dixonac Operator Name Role Phone KAYLAH CURTIS Unavailable PROBLEMS Type Condition ICD9-CM Code PWD53-DZ Code Onset Dates Condition Status SNOMED Code Problem Coronary artery disease involving [place] coronary artery of [place] heart without angina pectoris I25.10 Active 9223603369158 Problem Chronic obstructive pulmonary disease, unspecified COPD type J44.9 Active 20637185 Problem Essential hypertension I10 Active 90183757 Problem Chronic congestive heart failure, unspecified congestive heart failure type I50.9 Active 90352998 Problem Cardiac defibrillator in place Z95.810 Active 961790896 Problem Constipation, unspecified constipation type K59.00 Active 73431330 Problem Type 2 diabetes mellitus without complications E11.9 Active 350994632 Problem Ventricular arrhythmia I49.9 Active 54788198 Problem Stasis dermatitis of both legs I87.2 Active 13595518 Problem assisted current use of insulin Z79.4 Active 884348962 Problem Other atherosclerosis of [place] arteries of extremities, 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 Active 62847358 ALLERGIES Substance Reaction Event Type Date Status Penicillin V Potassium rash Drug Allergy May, Active Codeine Phosphate Unknown Drug Allergy May, Active ENCOUNTERS Encounter Location Date Diagnosis [facility] [id number] [address] May, [facility] [id number] [address] May, [facility] [id number] [address] May, [facility] [id number] [address] May, Periumbilical abdominal pain R10.33 and Constipation, unspecified constipation type K59.00 [facility] [id number] [place] [address] Apr, [facility] [id number] [place] [address]- [address] Apr, Type 2 diabetes mellitus without complications E11.9 ; Flank pain R10.9 ; Essential hypertension I10 and Coronary artery disease involving [place] coronary artery of [place] heart without angina pectoris I25.10 [facility] [id number] [place] [address]- [address] Apr, Dysuria R30.0 [facility] [address] [address] Apr, Acute cystitis without hematuria N30.00 ; Encounter for immunization Z23 and BMI 40.0-44.9, adult Z68.41 [facility] [address] [address] Apr, [facility] [id number] [place] [address]- [address] Mar, [facility] [address] [address] Mar, [facility] [id number] [place] [address]2619- 30[address] Feb, [facility] [id number] [place] [address]- [address] Feb, [facility] [id number] [place] [address]- [address] Feb, [facility] [address] [address] Jan, [facility] [id number] [place] [address]67- [address] Jan, [facility] [id number] [place] [address]- 1993 Jan, Acute cystitis with hematuria N30.01 and Dysuria R30.0 [facility] [address], [place] [address] Jan, [facility] [address], [place] [address] Jan, [facility] [address], [place] [address] Jan, [facility] [id number] [place] [address]14- 9365 Jan, Type 2 diabetes mellitus without complications E11.9 ; 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 ; History of respiratory failure Z87.09 and History of sepsis Z86.19 [facility] [address], [place] [address] Jan, [facility] [id number] [place] [address] Jan, [facility] [address], [place] [address] Jan, [facility] [id number] [address] Jan, [facility] [address], [place] [address] Jan, [facility] [address], [place] [address] Dec, [facility] [address], [place] [address] November, Acute cystitis without hematuria N30.00 [facility] [address], [place] [address] November, Acute cystitis without hematuria N30.00 [facility] [address], [place] [address] November, [facility] [address], [place] [address] Oct, 2017 Medicare annual wellness visit, initial Z00.00 ; Encounter for immunization Z23 ; Chronic obstructive pulmonary disease, unspecified COPD type J44.9 ; Coronary artery disease involving [place] coronary artery of [place] heart without angina pectoris I25.10 ; Chronic congestive heart failure, unspecified congestive heart failure type I50.9 ; Essential hypertension I10 ; Ventricular arrhythmia I49.9 and Other atherosclerosis of [place] arteries of extremities, 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 [facility] [id number] [place] [address] Sep, Chronic congestive heart failure, unspecified congestive heart failure type I50.9 [facility] [id number] [place] [address]316- [address] 20 Aug, 2017 [facility] [id number] [place] [address]34- [address] 13 Aug, 2017 Chronic congestive heart failure, unspecified congestive heart failure type I50.9 ; Chronic obstructive pulmonary disease, unspecified COPD type J44.9 and Bilateral impacted cerumen H61.23 [facility] [id number] [place] [address]- [address] Jul, [facility] [id number] [place] [address]- [address] Jul, [facility] [address], [place] [address] Jun, [facility] [id number] [place] [address]27- [address] Jun, [facility] [id number] [place] [address] 13051- [address]29 12 Jun, 2017 Coronary artery disease involving [place] coronary artery of [place] heart without angina pectoris I25.10 [facility] [id number] [place] [address]- 95[address] Jun, [facility] [id number] [place] [address] 6[address]21- [address] May, Chronic obstructive pulmonary disease, unspecified COPD type J44.9 and History of pneumonia Z87.01 [facility] [id number] [place] [id number] May, [facility] [id number] [place] [address] 27144- [address] May, [facility] [id number] [place] [address] 97994- 1678 May, [facility] [id number] [place] [address]83- [address] May, [facility] [id number] [place] [address]24- 68[address] Apr, [facility] [id number] [place] [address] 75119- 3511 Apr, Coronary artery disease involving [place] coronary artery of [place] heart without angina pectoris I25.10 and Ventricular arrhythmia I49.9 [facility] [id number] [place] [address] 96270- 4844 Apr, [facility] [id number] [place] [address] 04764- 2754 Apr, [facility] [address] [place] [address] Apr, Dysuria R30.0 and Acute cystitis without hematuria N30.00 [facility] [address] [place] [address] 00088- 9641 Feb, Epistaxis R04.0 and Chronic obstructive pulmonary disease, unspecified COPD type J44.9 [facility] [id number] [place] [address] 16033- 6368 Jan, Fall from other pedestrian conveyance, initial encounter V00.891A [facility] [id number] [place] [address]14- 2947 Jan, Chronic congestive heart failure, unspecified congestive heart failure type I50.9 ; Chronic obstructive pulmonary disease, unspecified COPD type J44.9 and Stasis dermatitis of both legs I87.2 [facility] [address] [address] November, Chronic congestive heart failure, unspecified congestive heart failure type I50.9 [facility] [address] [facility] [id number] [address] November, Coronary artery disease involving [place] coronary artery of [place] heart without angina pectoris I25.10 ; Chronic congestive heart failure, unspecified congestive heart failure type I50.9 and Chronic obstructive pulmonary disease, unspecified COPD type J44.9 [facility] [address] [address] Oct, [facility] [address], [place] [address] Oct, [facility] [id number] [place] [id number] Oct, [facility] [id number] [place] [id number] Sep, [facility] [address] [place] [id number] Sep, Essential hypertension I10 and Chronic congestive heart failure, unspecified congestive heart failure type I50.9 [facility] [id number] [id number] Sep, [facility] [address], [place] [address] Sep, [facility] [address] [address] Jun, [facility] [address] [address] Jun, [facility] [id number] [address] May, [facility] [address] [place] [address] 92296- 0367 May, [facility] [address], [place] [address] May, [facility] [address], [place] [address] 140[address] May, [facility] [address], [place] [address] May, Chronic congestive heart failure, unspecified congestive heart failure type I50.9 [facility] [address], [place] [address] May, Pain of right lower extremity M79.604 ; History of atrial fibrillation without current medication Z86.79 and Acute deep vein thrombosis ( DVT) of femoral vein of right lower extremity I82.411 [facility] [id number] [place] [address] 80627- 9642 May, [facility] [address] [place] [address] 43741- 3456 Feb, [facility] [address] [place] [address] 69470- 3293 Feb, Coronary artery disease involving [place] coronary artery of [place] heart without angina pectoris I25.10 ; Chronic congestive heart failure, unspecified congestive heart failure type I50.9 ; Cardiac defibrillator in place Z95.810 and Candidiasis B37.9 IMMUNIZATIONS No Known Immunizations SOCIAL HISTORY Never Assessed REASON FOR VISIT Stomach pain that began last night around the belly button and radiates to the left and right rib cage. Pt stated bowel movement has increased but normal in presentation. Pt suffers from urinary incontinence. Pain is "throbbing" and rated at a 7/10 on a pain scale.Pt also stated that his appetite is decreased also. ARIADNA. PLAN OF CARE Activity Details Follow Up prn Reason: VITAL SIGNS Height 65 in 2018-06-07 Weight 188 lbs 2018-06-07 Temperature 98 degrees Fahrenheit 2018-06-07 Heart Rate 90 bpm 2018-06-07 Respiratory Rate 22 2018-06-07 Oximetry w/ oxygen @ 2L:99 % 2018-06-07 BMI 31.28 kg/m2 2018-06-07 Blood pressure systolic 120 mmHg 2018-06-07 Blood pressure diastolic 80 mmHg 2018-06-07 MEDICATIONS Medication Instructions Dosage Frequency Start Date End Date Duration Status Albuterol Sulfate 1.25 MG/3ML Inhalation 2 times a day as directed 12h 30 May, 2017 Active Albuterol Sulfate 1.25 INHALE ONE VIAL VIA NEBULIZER BY MOUTH TWICE A DAY INSTRUCTED 25 Active Amiodarone HCl 200 mg Orally three times a week on Sun, Sun, Sun. in addition to daily dose 2 tablets at 1999 Active Nebulizer - as directed May, Active Oxygen Active Digoxin 125 mcg Orally Once a day 1 tablet 24h 30 days Active Metoprolol Tartrate 50 mg Orally Twice a day 1/2 tablets in the am, and pm 12h Active Nexium 40 mg Orally Once a day 1 capsule 24h 30 days Active Amlodipine Besylate 5 MG Orally Once a day 1 tablet 24h Active Wheelchair - to use for Mobility 24h 13 Aug, 2017 Active Levaquin 500 mg Orally Once a day 1 tablet 24h Jan, 7 days Not -Taking Furosemide 40 mg Orally twice a day 1 tablet 12h Active Amiodarone HCl 200 mg Orally Once a day 1 tablet 24h Active Klor-Con 8 MEQ Orally Once a day 2 capsules 24h May, 30 days Active Potassium Chloride 8mg Orally Once a day as directed 24h Active RESULTS No Results PROCEDURES Procedure Date Ordered Result Body Site [facility] VISIT ESTABLISHED PATIENT Jun 07, 2018 INSTRUCTIONS MEDICATIONS ADMINISTERED No Known Medications MEDICAL (GENERAL) HISTORY Type Description Date Medical History hypertension Medical History skin cancer-arms, face Medical History PA Medical History Pneumonia Medical History shingles Surgical History heart cath-2 stents, multiple balloons Surgical History open heart surgery 1987 Surgical History defibrillator placed 2013 Hospitalization History surgery Hospitalization History pneumonia 2014 Hospitalization History broken left hip at September Hospitalization History Bronchitis/clinical Pneumonia,hypoxia,sepsis - [facility] 06/21/17 Hospitalization History [facility]- Cardiomyopathy, Defibrillator discharge 01/04/2018 Hospitalization History CHF 02/09/2018
[2018-08-24 10:20] LABS: BASOPHILS % (AUTO) 0 % (0-10); EOSINOPHILS % (AUTO) 0 % (0-10); HEMATOCRIT 38 % (40-54); HEMOGLOBIN 11.8 G/DL (13.3-17.7); LYMPHOCYTES # (AUTO) 1.4 X 10^3 (1.0-4.0); LYMPHOCYTES % (AUTO) 12 % (12-44); MEAN CORPUSCULAR HEMOGLOBIN 31 PG (25-34); MEAN CORPUSCULAR HGB CONC 31 G/DL (32-36); MEAN CORPUSCULAR VOLUME 99 FL (80-99); MEAN PLATELET VOLUME 12.1 FL (7.4-10.4); MONOCYTES # (AUTO) 1.4 X 10^3 (0.0-1.0); MONOCYTES % (AUTO) 12 % (0-12); NEUTROPHILS % (AUTO) 76 % (42-75); PLATELET COUNT 170 10^3/uL (130-400); WHITE BLOOD COUNT 11.9 10^3/uL (4.3-11.0)
--- NOTE | 2018-08-24 10:26 | ED Chest Pain ---
General Chief Complaint: Cardiac/General Problems Stated Complaint: [place] Nursing Triage Note: EMS CALLED FOR A PT HAVING A STEMI IN INFERIOR LEADS. 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 PT STATES HIS PAIN STARTED AT 6AM ET HAS A LONG CARDIAC HX. PT RECIEVED X3 NITRO ET 324MG ASA BEFORE ARRIVAL. 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 MASK APPLIED ON PT. Nursing Sepsis Screen: No Definite Risk Source: patient Exam Limitations: no limitations History of Present Illness Date Seen by Provider: Aug 24, 2018 Time Seen by Provider: 10:08 Initial Comments Patient presents to ER by EMS with chief complaint that at 6 AM he started experiencing substernal midline nonradiating chest pain without shoulder or neck involvement or nausea, sweats, shortness of breath. The pain is not reproducible on deep inspiration or chest palpation. The home health care nurse who is helping take care of his PEG tube gave him some Tylenol for his pain and then they called ambulance. [place] gave him 325 of aspirin got a EKG that was with a lot of artifact with a suspected might of been a STEMI so they activated and gave him 3 separate doses of nitroglycerin which brought his pain down from a 10 out of 10 to a 4 out of 10 at present. Allergies and Home Medications Allergies Coded Allergies: Penicillins (Verified Allergy, Severe, HIVES, SOB (Pt has received Cefepime & Ceftriaxone), 07/03/18) codeine (Verified Allergy, Severe, SOB, HIVES, 01/04/18) Home Medications Albuterol Sulfate 18 Gm Hfa.aer.ad, 2 PUFF IH Q6H PRN for SHORTNESS OF BREATH, ( Reported) Amiodarone HCl 200 Mg Tablet, PO UD, (Reported) Aspirin 81 Mg Tab.chew, 81 MG PO DAILY Prescribed by: BRIGITTE LEMA on 08/05/18811 Atorvastatin Calcium 40 Mg Tablet, 40 MG PO HS Prescribed by: BRIGITTE LEMA on 08/05/18811 Cholestyramine/Aspartame 4 Gm Powd.pack, 4 GM PO 1000,2300 Prescribed by: BRIGITTE LEMA on 08/05/18811 Digoxin 125 Mcg Tablet, 125 MCG PO DAILY, (Reported) Diltiazem HCl 60 Mg Tablet, 60 MG PO Q8HR Prescribed by: BRIGITTE LEMA on 08/05/18811 Furosemide 40 Mg Tablet, 20 MG PO BID, (Reported) Insulin Aspart 100 Unit/1 Ml Susp, SQ UD, (Reported) Magnesium Hydroxide 400 Mg/5 Ml Oral.susp, 30 ML PO DAILY PRN for CONSTIPATION- 7TH LINE Prescribed by: BRIGITTE LEMA on 08/05/18811 Menthol/Lanolin/Calamine/Znox 71 Gm Oint, 0 GM TOP BID Prescribed by: BRIGITTE LEMA on 08/05/18811 Metoprolol Tartrate 25 Mg Tablet, 12.5 MG PO BID Prescribed by: BRIGITTE LEMA on 08/05/1814 Mexiletine HCl 150 Mg Cap, 150 MG PO TID, (Reported) Phenazopyridine HCl 200 Mg Tablet, 200 MG PO TID, (Reported) Potassium Chloride 20 Meq Packet, 15 MEQ PEG DAILY@0700 Prescribed by: BRIGITTE LEMA on 08/05/18811 Patient Home Medication List Home Medication List Reviewed: Yes Review of Systems Review of Systems Constitutional: No chills, No fever, No malaise EENTM: No Blurred Vision, No Double Vision, No Eye Pain Respiratory: Denies Cough, Denies Shortness of Air, Denies Wheezing Cardiovascular: See HPI, Chest Pain; Denies Lightheadedness Gastrointestinal: Denies Abdomen Distended, Denies Abdominal Pain Genitourinary: Denies Burning, Denies Discharge Musculoskeletal: No back pain, No joint pain Skin: No pruritus, No rash Psychiatric/Neurological: Denies Anxiety, Denies Depressed Past Koimcua-Qwoygd-Zwhwns Hx Patient Social History Alcohol Use: Denies Use Recreational Drug Use: No Smoking Status: Former Smoker Type Used: Cigarettes Former Smoker, Quit: Jul 22, 1988 2nd Hand Smoke Exposure: No Recent Foreign Travel: No Contact w/Someone Who Travel: No Recent Infectious Disease Expo: No Recent Hopitalizations: Yes Immunizations Up To Date Tetanus Booster (TDap): More than 5yrs Date of Pneumonia Vaccine: May 12, 2018 Date of Influenza Vaccine: May 08, 2018 Seasonal Allergies Seasonal Allergies: No Past Medical History Surgeries: Yes (skin cancer removal, cataract surgery, cardiac stents ) Cardiac, CABG, Coronary Stent, Defibrillator, Eye Surgery, Orthopedic, Renal Respiratory: Yes (O2 3L/NC AT HS-now off all oxygen 06/2018; CHRONIC RESPIRATORY FAILURE) Asthma, Pneumonia, Chronic Bronchitis, Sleep Apnea, COPD Currently Using CPAP: No Currently Using BIPAP: No Cardiac: Yes (CABG) Cardiomyopathy, Chronic Edema/Swelling, Coronary Artery Disease, Heart Attack, High Cholesterol, Hypertension, Irregular Heartbeat Neurological: Yes Dementia, Neuropathy Reproductive Disorders: Yes (unable to have children- mumps as a child) Sexually Transmitted Disease: No HIV/AIDS: No Genitourinary: Yes (renal insufficiency-renal stent placement) Kidney Infection, Bladder Infection, Kidney Stones Gastrointestinal: Yes (peg tube [id number] aspiration) Gastroesophageal Reflux, Ulcer Musculoskeletal: Yes (POOR MOBILITY; LEFT HIP FRACTURE) Arthritis, Chronic Back Pain, Fractures Endocrine: Yes Diabetes, Insulin dep HEENT: Yes Cataract, Glaucoma Loss of Vision: Bilateral Hearing Impairment: Hard of Hearing Cancer: Yes Skin Did You Recieve Any Treatments: Yes What Type of Treatment Did You: Surgical Intervention Psychosocial: Yes (combative at times) Anxiety, Depression Integumentary: Yes (shingles , SKIN CANCER; LEG CELLULITIS/ STASIS DERMATITIS) Blood Disorders: No Adverse Reaction/Blood Tranf: No Family Medical History Cardiovascular disease 19 MOTHER G8 BROTHER G8 SISTER Cervical cancer 19 MOTHER Heart Disease Physical Exam Vital Signs Vital Signs - First Documented 08/24/18 10:11 Temp 98.0 Pulse 90 Resp 16 B/P (MAP) 131/77 (95) Pulse Ox 96 O2 Delivery Nasal Cannula O2 Flow Rate 2.00 Capillary Refill : Less Than 3 Seconds Height, Weight, BMI Height: 5'5.00" Weight: 160lbs. 4.8oz. [id number]; 27.8 BMI Method:Stated General Appearance: No Apparent Distress, Other (peg) HEENT: PERRL/EOMI, Pharynx Normal, Moist Mucous Membranes Neck: Full Range of Motion, Normal Inspection Respiratory: Chest Non Tender, Lungs Clear, Normal Breath Sounds, No Accessory Muscle Use, No Respiratory Distress Cardiovascular: Regular Rate, Rhythm, Normal Peripheral Pulses Gastrointestinal: Normal Bowel Sounds, No Organomegaly, Non Tender, Soft Extremity: Normal Capillary Refill, Non Tender, No Calf Tenderness Neurologic/Psychiatric: Alert, Oriented x3, Other (poor remote history) Progress/Results/Core Measures Results/Orders Lab Results Laboratory Tests Test 08/24/18 10:16 08/24/18 10:20 08/24/18 10:33 Range/Units White Blood Count 11.9 H 4.3-11.0 10^3/uL Red Blood Count 3.81 L 4.35-5.85 10^6/uL Hemoglobin 11.8 L 13.3-17.7 G/DL Hematocrit 38 L 40-54 % Mean Corpuscular Volume 99 80-99 FL Mean Corpuscular Hemoglobin 31 25-34 PG Mean Corpuscular Hemoglobin Concent 31 L 32-36 G/DL Red Cell Distribution Width 19.0 H 10.0-14.5 % Platelet Count 170 130-400 10^3/uL Mean Platelet Volume 12.1 H 7.4-10.4 FL Neutrophils (%) (Auto) 76 H 42-75 % Lymphocytes (%) (Auto) 12 12-44 % Monocytes (%) (Auto) 12 0-12 % Eosinophils (%) (Auto) 0 0-10 % Basophils (%) (Auto) 0 0-10 % Neutrophils # (Auto) 9.0 H 1.8-7.8 X 10^3 Lymphocytes # (Auto) 1.4 1.0-4.0 X 10^3 Monocytes # (Auto) 1.4 H 0.0-1.0 X 10^3 Eosinophils # (Auto) 0.0 0.0-0.3 10^3/uL Basophils # (Auto) 0.0 0.0-0.1 10^3/uL Sodium Level 145 135-145 MMOL/L Potassium Level 6.0 H 3.6-5.0 MMOL/L Chloride Level 112 H 98-107 MMOL/L Carbon Dioxide Level 23 21-32 MMOL/L Anion Gap 10 5-14 MMOL/L Blood Urea Nitrogen 25 H 7-18 MG/DL Creatinine 1.17 0.60-1.30 MG/DL Estimat Glomerular Filtration Rate > 60 BUN/Creatinine Ratio 21 Glucose Level 101 70-105 MG/DL Calcium Level 10.1 8.5-10.1 MG/DL Corrected Calcium 10.4 H 8.5-10.1 MG/DL Magnesium Level 2.5 H 1.8-2.4 MG/DL Total Bilirubin 0.8 0.1-1.0 MG/DL Aspartate Amino Transf (AST/SGOT) 52 H 5-34 U/L Alanine Aminotransferase (ALT/SGPT) 56 H 0-55 U/L Alkaline Phosphatase 106 40-136 U/L Myoglobin 55.1 10.0-92.0 NG/ML Troponin I 0.062 <0.028 NG/ML Total Protein 8.9 H 6.4-8.2 GM/DL Albumin 3.6 3.2-4.5 GM/DL Digoxin Level 2.13 *H 0.80-2.00 NG/ML Prothrombin Time 15.8 H 12.2-14.7 SEC INR Comment 1.3 0.8-1.4 Activated Partial Thromboplast Time 31 24-35 SEC Glucometer 96 70-110 MG/DL My Orders Orders - MATTHEW,LAUREL J Cbc With Automated Diff (08/24/18 10:08) Magnesium (08/24/18 10:08) Chest 1 View, Ap/Pa Only (08/24/18 10:08) Ekg Tracing (08/24/18 10:08) Cardiac Profile 1 (08/24/18 10:08) Comprehensive Metabolic Panel (08/24/18 10:08) Myoglobin Serum (08/24/18 10:08) Protime With Inr (08/24/18 10:08) Partial Thromboplastin Time (08/24/18 10:08) O2 (08/24/18 10:08) Monitor-Rhythm Ecg Trace Only (08/24/18 10:08) Lipid Panel (08/25/18 06:00) Saline Lock/Iv-Start (08/24/18 10:08) Ticagrelor Tablet (Brilinta Tablet) (08/24/18 10:28) Heparin Injection (Heparin Injection) (08/24/18 10:30) Digoxin (08/24/18 10:28) Accucheck Stat ONCE (08/24/18 10:30) Lidocaine 1% Inj 20 Ml (Xylocaine 1% Inj (08/24/18 10:32) Midazolam Injection (Versed Injection) (08/24/18 10:32) Heparin (Bolus Per Protocol) (Heparin (B (08/24/18 10:32) Fentanyl Injection (Sublimaze Injection (08/24/18 10:32) Heparin (Bolus Per Protocol) (Heparin (B (08/24/18 10:32) Ns Iv 1000 Ml (Sodium Chloride 0.9%) (08/24/18 10:33) Heparin (Field Project Manager) (Heparin (Field Project Manager)) (08/24/18 10:33) Nitro Drip 51608 Mcg/D5w (Nitroglycerin (08/24/18 10:33) Medications Given in ED Current Medications Medications Dose Ordered Sig/Re Route Start Time Stop Time Status Last Admin Dose Admin Heparin Sodium (Porcine) 5,000 units ONCE ONCE IV 08/24/18 10:30 08/24/18 10:31 DC 08/24/18 10:46 5,000 UNITS Ticagrelor 180 mg 1028 ONCE PO 08/24/18 10:28 08/24/18 10:31 DC 08/24/18 10:38 180 MG Vital Signs/I&O 08/24/18 08/24/18 10:11 10:17 Temp 98.0 Pulse 90 Resp 16 B/P (MAP) 131/77 (95) Pulse Ox 96 O2 Delivery Nasal Cannula Nasal Cannula O2 Flow Rate 2.00 2.00 Blood Pressure Mean: 95 Progress Progress Note : Time: 10:27 Progress Note History of remote CABG and stent placed [address] Mendez in [place]. Congestive heart failure with ejection fraction 54% on an MPI in 2013. Paroxysmal atrial fibrillation on Cardizem, amiodarone, digoxin. Unable to tolerate oral anticoagulation secondary to recurrent epistaxis and anemia. Has an ICD implanted by Dr. Chow in [place] on mexiletine with history of shock from his defibrillator for ventricular fibrillation. History of COPD diabetes. Discussed case with Dr. Judd at 1005 and again at 1010 and he recommends that since the Field Project Manager was already activated at 0957 he would just plan to catheter the patient for an STEMI and have medical admit and he will consult. Give Brilinta and heparin. Initial ECG Impression Date: Aug 24, 2018 Initial ECG Impression Time: 10:13 Initial ECG Rate: 90 Initial ECG Rhythm: Normal Sinus Initial ECG Intervals: QT (544) Initial ECG Impression: Nonspecific Changes Initial ECG Comparisson: Changed Comment Compared to May 2018 there is a new depression of the ST segment on leads V3 and V4. No ST elevation noted. Diagnostic Imaging Diagonstic Imaging: Xray Plain Films/CT/US/NM/MRI: chest Comments No acute intrathoracic pathology noted. Reviewed: Reviewed by Me Departure Communication (Admissions) Time/Spoke to Admitting Phy: 10:[address] Rockwell and she agrees to admit the patient for further workup. Time/Spoke to Consulting Phy: 10:10 Discussed the case with Dr. Judd and he agrees take patient to Field Project [facility] since they're already assembled for in STEMI. He suspects there is other things going on that would explain the situation given the mild elevation of white count and aberrations in the electrolytes and would like medicine team to admit and further worked up outpatient. Impression Primary Impression: Non-STEMI (non-ST elevated myocardial infarction) Additional Impression: Electrolyte disorder Disposition: ADMITTED INPATIENT Condition: Stable Admissions Decision to Admit Reason: Admit from ER (General) Decision to Admit/Date: Aug 24, 2018 Time/Decision to Admit Time: 10:46 Departure-Patient Inst. Referrals: ABHINAV GONZALEZ MD (PCP/Family) Primary Care Physician LAUREL CASTRO Aug 24, 2018 10:25
[2018-08-24] MEDS ORDERED: TICAGRELOR 90 MG TABLET (BRILINTA) PO ONE (10:28)
[2018-08-24] MEDS ORDERED: LIDOCAINE 1% INJ 20 ML 20 ML VIAL ONE (10:32)
[2018-08-24] MEDS ORDERED: fentaNYL INJECTION 100 MCG/2 ML AMP ONE ×2 (10:32→15:13)
[2018-08-24] MEDS ORDERED: HEParin 1000 UNIT/ML (10ML VIAL) FOR BOLUS ONE ×2 (10:32)
[2018-08-24] MEDS ORDERED: MIDAZOLAM 5 MG/5 ML (VERSED) VIAL ONE (10:32)
[2018-08-24] MEDS ORDERED: HEParin (CATH LAB) 2,000 ML IV ONE (10:33)
[2018-08-24] MEDS ORDERED: NITRO DRIP 25000 MCG/D5W 250 ML IV ONE (10:33)
[2018-08-24] MEDS ORDERED: NS IV 1000 ML 1,000 ML ONE (10:33)
[2018-08-24 10:39] LABS: ALANINE AMINOTRANSFERASE 56 U/L (0-55); ALBUMIN 3.6 GM/DL (3.2-4.5); ALKALINE PHOSPHATASE 106 U/L (40-136); BILIRUBIN,TOTAL 0.8 MG/DL (0.1-1.0); BUN/CREATININE RATIO 21; CALCIUM 10.1 MG/DL (8.5-10.1); CARBON DIOXIDE 23 MMOL/L (21-32); CHLORIDE 112 MMOL/L (98-107); CREATININE SERUM 1.17 MG/DL (0.60-1.30); GFR ESTIMATED > 60; GLUCOSE 101 MG/DL (70-105); MAGNESIUM 2.5 MG/DL (1.8-2.4); SODIUM 145 MMOL/L (135-145); TOTAL PROTEIN 8.9 GM/DL (6.4-8.2)
[2018-08-24 10:50] LABS: INR 1.3 (0.8-1.4); PROTHROMBIN TIME PATIENT 15.8 SEC (12.2-14.7)
--- NOTE | 2018-08-24 10:50 | NUR ---
DR EPSTEIN HERE AND CATH TEAM HERE.
[2018-08-24 10:54] LABS: MYOGLOBIN SERUM 55.1 NG/ML (10.0-92.0)
--- NOTE | 2018-08-24 11:11 | Consultation-Cardiology ---
HPI-Cardiology Cardiology Consultation: Date of Consultation 08/24/18 Date of Admission Attending Physician Gabriela Judd MD Admitting Physician Elliot Ybarra MD Consulting Physician Gabriela JUDD MD HPI: Time Seen by a Provider: 10:50 Chief Complaint: Ongoing chest pain This is a 78-year-old gentleman with complex medical and cardiac history. His cardiac history includes CABG and PCI to proximal RCA and proximal/mid left circumflex artery with drug-eluting stent. He also has a biventricular ICD. Previous history of ventricular tachycardia/ventricular fibrillation was on amiodarone, mexiletine, digoxin. He was not on oral anticoagulation therapy due to bleeding. The patient also has history of paroxysmal atrial fibrillation. Multiple medical issues include severe COPD, previous history of tracheostomy. PEG tube. Renal insufficiency, stones. Recent history of UTI sepsis, electrolyte abnormalities. Fever initially informed by the EMS that the patient has inferior STEMI. However review of the EKG did not reveal any significant ST elevation in the inferior leads however new deep ST depressions were noted in V3 and V4. The patient had chest pain starting at 6 a.m. which according to the patient was 10/ 10. He finally called the EMS a few hours later. He was given 3 nitroglycerin with some relief. In the ER we gave him heparin IV 5000 units, aspirin, Brilinta 180 mg by mouth bolus. That gave him some relief however he was still having chest pain when I saw the patient. Therefore at that point in time we decided to urgently called the [facility] and performed coronary angiography. Review of Systems-Cardiology Review of Systems Constitutional: As described under HPI; No As described under HPI, No no symptoms reported, No chills, No fever, No lightheadedness Eyes: No As described under HPI, No no symptoms reported, No blindness, No blurred vision, No contact lenses, No drainage, No decreased acuity, No foreign body sensation, No pain, No vision change Ears/Nose/Throat: No As described under HPI, No no symptoms reported, No chronic hearing loss, No ear discharge, No ear pain, No nasal drainage, No ulcerations Respiratory: No no symptoms reported; As described under HPI; No As described under HPI, No cough, No orthopnea, No shortness of breath, No SOB with excertion Cardiovascular: No no symptoms reported; As described under HPI; No As described under HPI; chest pain; No edema, No irregular heart rate, No lightheadedness, No palpitations Gastrointestinal: No no symptoms reported, No As described under HPI, No abdomen distended, No abdominal pain, No blood streaked bowels, No constipation , No diarrhea, No nausea, No vomiting, No stool coloration changes Genitourinary: No As described under HPI, No burning, No dysuria, No discharge , No frequency, No flank pain, No hematuria, No urgency Musculoskeletal: No no symptoms reported, No As describe under HPI, No back pain, No gout, No joint pain, No joint swelling, No muscle pain, No muscle stiffness, No neck pain, No other Skin: No no symptoms reported, No As described under HPI, No change in color, No change in hair/nails, No dryness, No lesions, No lumps, No rash, No other, No skin related problems, No ulcerations, No rash on exposed areas, No ulcerations on exposed areas Psychiatric/Neurological: No anxiety, No depression, No seizure, No focal weakness, No syncope Hematologic: No bleeding abnormalities DPT-Ywzjvh-Akeuhy Hx Patient Social History Former smoker/When Quit: Aug 02, 1987 Type Used: Cigarettes 2nd Hand Smoke Exposure: No Recent Foreign Travel: No Recent Infectious Disease Expo: No Immunizations Up To Date Tetanus Booster (TDap): More than 5yrs Date of Pneumonia Vaccine: May 12, 2018 Date of Influenza Vaccine: May 08, 2018 Past Medical History PMH As described under Assessment. Family Medical History Family History: Cardiovascular disease 19 MOTHER G8 BROTHER G8 SISTER Cervical cancer 19 MOTHER Allergies and Home Medications Allergies Coded Allergies: Penicillins (Verified Allergy, Severe, HIVES, SOB (Pt has received Cefepime & Ceftriaxone), 07/03/18) codeine (Verified Allergy, Severe, SOB, HIVES, 01/04/18) Home Medications Albuterol Sulfate 18 Gm Hfa.aer.ad, 2 PUFF IH Q6H PRN for SHORTNESS OF BREATH, ( Reported) Amiodarone HCl 200 Mg Tablet, PO UD, (Reported) Aspirin 81 Mg Tab.chew, 81 MG PO DAILY Prescribed by: BRIGITTE LEMA on 08/05/18811 Atorvastatin Calcium 40 Mg Tablet, 40 MG PO HS Prescribed by: BRIGITTE LEMA on 08/05/18811 Cholestyramine/Aspartame 4 Gm Powd.pack, 4 GM PO 1000,2300 Prescribed by: BRIGITTE LEMA on 08/05/18811 Digoxin 125 Mcg Tablet, 125 MCG PO DAILY, (Reported) Diltiazem HCl 60 Mg Tablet, 60 MG PO Q8HR Prescribed by: BRIGITTE LEMA on 08/05/18811 Furosemide 40 Mg Tablet, 20 MG PO BID, (Reported) Insulin Aspart 100 Unit/1 Ml Susp, SQ UD, (Reported) Magnesium Hydroxide 400 Mg/5 Ml Oral.susp, 30 ML PO DAILY PRN for CONSTIPATION- 7TH LINE Prescribed by: BRIGITTE LEMA on 08/05/18811 Menthol/Lanolin/Calamine/Znox 71 Gm Oint, 0 GM TOP BID Prescribed by: BRIGITTE LEMA on 08/05/18811 Metoprolol Tartrate 25 Mg Tablet, 12.5 MG PO BID Prescribed by: BRIGITTE LEMA on 08/05/18913 Mexiletine HCl 150 Mg Cap, 150 MG PO TID, (Reported) Phenazopyridine HCl 200 Mg Tablet, 200 MG PO TID, (Reported) Potassium Chloride 20 Meq Packet, 15 MEQ PEG DAILY@0700 Prescribed by: BRIGITTE LEMA on 08/05/18811 Patient Home Medication List Home Medication List Reviewed: Yes Physical Exam-Cardiology Physical Exam Vital Signs/I&O 08/24/18 08/24/18 08/24/18 10:11 10:17 10:53 Temp 98.0 Pulse 90 91 Resp 16 16 B/P (MAP) 131/77 (95) 129/80 (96) Pulse Ox 96 98 O2 Delivery Nasal Cannula Nasal Cannula Room Air O2 Flow Rate 2.00 2.00 Capillary Refill : Less Than 3 Seconds Constitutional: appears stated age, AAO x 3; No apparent distress; well- developed, well-nourished HEENT: PERRL; No normal ENT inspection, No TMs normal, No pharynx normal, No scleral icterus (R), No scleral icterus (L), No pale conjunctivae (R), No pale conjunctivae (L), No photophobia, No TM abnormal (R), No TM abnormal (L), No pharyngeal erythema, No tonsillar exudate, No other, No discharge, No EOMI; hearing is well preserved; No hard of hearing; oral hygience is good; No ulceration, No xanthelasmas are seen Neck: No non-tender, No full range of motion, No supple, No normal inspection, No carotid bruit, No limited range of motion, No lymphadenopathy (R), No lymphadenopathy (L), No tender lateral, No tender midline, No thyromegaly, No other; carotid pulses are 2 + bilaterally; No with good upstrokes Respiratory: No accessory muscle use, No respiratory distress, No chest tender , No chest expansion is symmetric; chest is bilaterally symmetric; No lungs clear to percussion; lungs clear to auscultation; No crackles, No rhonchi, No rales, No stridor, No wheezing, No pleural rub, No other Cardiovascular: regular rate-rhythm; No irregularly irregular, No extra beats, No parasternal heave is noted, No JVD, No edema, No bradycardia, No tachycardia , No point of maximal impulse, No cardiac thrills are palpable; S1 and S2; No gallop/S3, No gallop/S4, No diastolic murmur, No systolic murmur, No friction rub, No click, No other Gastrointestinal: No tender, No soft, No round, No distended, No pulsatile mass , No organomegaly, No guarding, No rebound, No tenderness, No hernia, No mass, No audible bowel sounds, No abnormal bowel sounds, No abdominal bruits, No spleenomegaly; other (PEG tube) Rectal: deferred Extremities: No normal range of motion, No non-tender, No normal inspection, No pedal edema, No calf tenderness, No normal capillary refill, No pelvis stable , No calf tenderness, No inflammation, No pedal edema, No slow capillary refill , No swelling, No other, No abrasion, No clubbing, No cyanosis, No ecchymosis, No laceration, No no lower extremity edema bilateral, No significant edema, No tenderness, No wound Neurologic/Psychiatric: no motor/sensory deficits, alert, normal mood/affect, oriented x 3, power is 5/5 both on sides Skin: No normal color, No warm/dry, No cyanosis, No cool, No diaphoresis, No damp, No ecchymosis, No jaundice, No mottled, No pallor, No rash, No tattoos/ piercings, No ulcerations, No rash on exposed areas, No ulcerations on exposed areas, No other Data Review Labs Laboratory Tests 08/24/18 10:16: White Blood Count 11.9H, Red Blood Count 3.81L, Hemoglobin 11.8L, Hematocrit 38L , Mean Corpuscular Volume 99, Mean Corpuscular Hemoglobin 31, Mean Corpuscular Hemoglobin Concent 31L, Red Cell Distribution Width 19.0H, Platelet Count 170, Mean Platelet Volume 12.1H, Neutrophils (%) (Auto) 76H, Lymphocytes (%) (Auto) 12, Monocytes (%) (Auto) 12, Eosinophils (%) (Auto) 0, Basophils (%) (Auto) 0, Neutrophils # (Auto) 9.0H, Lymphocytes # (Auto) 1.4, Monocytes # (Auto) 1.4H, Eosinophils # (Auto) 0.0, Basophils # (Auto) 0.0, Sodium Level 145, Potassium Level 6.0H, Chloride Level 112H, Carbon Dioxide Level 23, Anion Gap 10, Blood Urea Nitrogen 25H, Creatinine 1.17, Estimat Glomerular Filtration Rate > 60, BUN /Creatinine Ratio 21, Glucose Level 101, Calcium Level 10.1, Corrected Calcium 10.4H, Magnesium Level 2.5H, Total Bilirubin 0.8, Aspartate Amino Transf (AST/ SGOT) 52H, Alanine Aminotransferase (ALT/SGPT) 56H, Alkaline Phosphatase 106, Myoglobin 55.1, Troponin I 0.062, Total Protein 8.9H, Albumin 3.6, Digoxin Level 2.13*H 08/24/18 10:20: Prothrombin Time 15.8H, INR Comment 1.3, Activated Partial Thromboplast Time 31 08/24/18 10:33: Glucometer 96 ECG Impression ECG Comment No significant P waves noted, rhythm is likely atrial fibrillation. ST depressions noted in V3 and V4. A/P-Cardiology Assessment/Admission Diagnosis Acute non-STEMI, refractory to medical therapy, Atrial fibrillation persistent, Ischemic cardiomyopathy, biventricular ICD, History of ventricular tachycardia/ventricular fibrillation, Chronic kidney injury, COPD, History of PEG placement, Leukocytosis, Anemia, Hyperkalemia, Hypomagnesemia, Elevated LFTs Plan Acute non-STEMI, refractory to medical therapy, ongoing chest pain in the ER with some relief with medical therapy. Urgent coronary angiography is recommended. Patient will be taken from the ER to the [facility]. Given 5000 units of heparin. Aspirin and Brilinta bolus. Echocardiogram. Informed consent was taken and the procedure was discussed at length. All the risks and complication were explained in detail. Atrial fibrillation persistent, patient is on amiodarone, mexiletine, digoxin, verapamil, metoprolol. Not on oral anticoagulation due to previous history of bleeding. Ischemic cardiomyopathy, biventricular ICD, History of ventricular tachycardia/ventricular fibrillation, on amiodarone and mexiletine. Elevated digoxin level, hold digoxin. Chronic kidney injury, COPD, History of PEG placement, patient does not know the reason why he has PEG placement. Leukocytosis, will defer to Dr. Verdin. Patient has recent history of UTI sepsis. Anemia, Hyperkalemia, defer to Dr. Verdin. Hypermagnesemia, Elevated LFTs. Critical patient. Over 30 minutes were spent taking care of the patient. Thank you for your consultation. Please call me if you have any questions. Simin Judd MD, FACP, FACC, FSCAI, FHRS, CCDS Interventional Cardiology Cardiac Electrophysiology Vascular Medicine and Endovascular Interventions Gabriela JUDD MD Aug 24, 2018 11:11
--- NOTE | 2018-08-24 11:13 | Cardiac Procedure Note-CS/ASA ---
Pre-Procedure Note Pre-Op Procedure Note H&P Reviewed The H&P was reviewed, patient examined and no changes noted. Date H&P Reviewed: Aug 24, 2018 Time H&P Reviewed: 11:13 Conscious Sedation Pre-Proced Time 11:13 ASA Score 3 For ASA 3 and 4: Consider anesthesia and medical clearance. Also, for patients with a history of failed moderate sedation consider anesthesia. Airway Lungs Heart ASA score ASA 1: a normal healthy patient ASA 2: a patient with a mild systemic disease (mid diabetes, controlled hypertension, obesity ASA 3: a patient with a severe systemic disease that limits activity (angina , COPD, prior Myocardial infarction) ASA 4: a patient with an incapacitating disease that is a constant threat to life (CHF, renal failure) ASA 5: a moribund patient not expected to survive 24 hrs. (ruptured aneurysm) ASA 6: a declared brain patient whose organs are being harvested. For emergent operations, add the letter E after the classification Mallampati Classification Grade 1 Sedation Plan Analgesia, Amnesia, Plan communicated to team members, Discussed options with patient/fam, Discussed risks with patient/fam The patient is an appropriate candidate to undergo the planned procedure, sedation, and anesthesia. The patient immediately re-assessed prior to indication. Gabriela FALK MD Aug 24, 2018 11:13
--- NOTE | 2018-08-24 11:17 | Diagnostic Imaging Report ---
INDICATION: Chest pain. COMPARISON: 07/24/2018. FINDINGS: Single view of the chest demonstrates cardiac enlargement with slight central vascular congestion. There is basilar atelectasis in the right base. Underlying infiltrate not excluded. Trace effusion seen in the right costophrenic angle. There is no pneumothorax. Pacemaker is stable. IMPRESSION: 1. Cardiac enlargement with slight central vascular congestion. 2. Trace effusion, atelectasis and infiltrate right base. Followup recommended. Dictated by: Dictated on workstation # [id number]
--- NOTE | 2018-08-24 12:20 | NUR ---
right hand iv dislodged during procedure, dressing applied, dry and intact. using right groin venous access at this time per dr. rivero.
[2018-08-24] MEDS ORDERED: PATIENT MAY USE OWN MEDS, ALL PO SCH (12:45)
--- NOTE | 2018-08-24 12:49 | Coronary Angiography & PCI ---
Coronary Angiography & PCI DATE OF PROCEDURE: 08/24/18 INDICATION: NSTEMI, refractory to medical therapy, urgently taken to the Corrections Nurse. PREOPERATIVE DIAGNOSIS: NSTEMI, refractory to medical therapy. POSTOPERATIVE DIAGNOSIS: PCI with NATE to mid LCX. HISTORY: This is 78 year old gentleman with complicated medical and cardiac history. He has history of CABG and PCI in the past. He also has BiV-ICD. He presents with 10/10 chest pain for 4 hours. NTG x 3 given which resulted in mild decrease in chest pain 6/10. Called by the EMS as inferior STEMI however when the EKG was reviewed there was no inferior STEMI however the patient had new deep ST depressions in V3 and V4. The patient was already given heparin and Brilinta 180 mg bolus however was still having ongoing chest pain when I saw the patient in the ER, therefore the patient was taken urgently to the catheter lab as a non-STEMI refractory to medical therapy. Initial troponin was positive. PROCEDURES PERFORMED: 1.Coronary angiography. 2.Left heart catheterization. 3. Graft angiography. 4. Aortic arch angiography. 3. PCI to the mid left circumflex artery with drug-eluting stent COMPLICATIONS: None. SPECIMENS: None. ESTIMATED BLOOD LOSS: 10 mL ANESTHESIA: Conscious sedation ANTICOAGULATION: IV heparin CONTRAST: 180 mL. FLUOROSCOPY: 13.50 minutes. FLOUROSCOPY DOSE: 1384 mgy. PROCEDURE DETAILS: The patient is a 78 male and was brought to the confectionery laboratory manager after informed consent was taken. All the risks and complications were explained in detail; this included the risk of bleeding, vascular damage, stroke , MD and even . The patient was draped and prepped in the usual sterile fashion. Access was gained in the right femoral artery with a 6 Bangl[place] sheath. Coronary angiography, aortic arch angiogram, graft angiography, left heart catheterization was performed with a JR4 catheter, JL4 catheter, pigtail catheter. A 5 [place] sheath was placed in the right femoral vein since there was no working peripheral venous access. FINDINGS: 1.Left main: Patent. 2.LAD: Mild diffuse disease. Transapical vessel. 3.Left circumflex artery: There is a stent in the proximal/mid left circumflex artery. In this distal portion of the stent there is severe in-stent restenosis. Stenosis severity is 80 percent. The lesion is eccentric and therefore in some views, is not very obvious. 4.RCA: Small vessel. A stent is noted in the proximal segment with no significant disease. Dampening was noted, however no obvious severe ostial stenosis noted. The RCA diameter is less than 2 mm. 5. Saphenous vein angiography: Occluded. 6. CORTEZ angiography: The CORTEZ is not grafted to the LAD. 7. Aortic arch angiogram: Aortic arch angiography was done since we could not find the ostium of the saphenous vein graft. Aortic arch angiogram also did not reveal any patent saphenous vein graft. No evidence of dissection or aneurysm. Patent proximal segments of the great arteries. 8.Left heart catheterization: LV pressure 127/3 mmHg. LVEDP 12 mmHg. Aortic pressure 123/60 mmHg. Mild to moderate LV systolic dysfunction with an EF of 35 -40 percent with no gradient across the aortic valve. RECOMMENDATIONS: PCI to the mid left circumflex artery is recommended. INTERVENTION DETAILS: JL4 guide catheter, BMW guidewire, IV heparin for anticoagulation. ACT was done once and was 250 seconds. The lesion was crossed with the BMW guidewire. The tip of the wire was placed in the distal left circumflex artery. The lesion within the distal portion of the previous stent was direct stented with the Medtronic resolute integrity 2.75 x 14 drug-eluting stent at 14 natasha for 32 seconds. Overlap area was postdilated with the same stent balloon at 18 natasha for 32 seconds. Excellent results with 0 percent residual stenosis and VAUGHN-3 flow was noted. Right femoral angiography showed evidence of PAD therefore no closure device was done. Manual compression is recommended. CONCLUSIONS: 1. PCI with drug-eluting stent to mid left circumflex artery. 2. Dual antiplatelet therapy for at least 1 year. 3. Echocardiogram. 4. Numerous medical issues need to be addressed in the ICU by hospitalist service including hyperkalemia, elevated LFTs, increased medication, leukocytosis, PEG tube, COPD, renal insufficiency. Simin Judd MD, FACP, FACC, [facility] Interventional Cardiology Gabriela JUDD MD Aug 24, 2018 12:49
[2018-08-24] MEDS ORDERED: morphine INJ 4 MG/ML 1 ML (VIAL/SYRINGE) IVP PRN (13:45)
[2018-08-24] MEDS ORDERED: ONDANSETRON 4 MG/2 ML (SDV) Z0FRAN IVP PRN (13:45)
[2018-08-24] MEDS ORDERED: NITROGLYCERIN 0.4 MG SL TABS BTL 25'S SL PRN (13:45)
[2018-08-24] MEDS ORDERED: ATROPINE INJECTION 1 MG/10 ML SYR (ABBOTT) ONE (15:14)
[2018-08-24] MEDS: inSUlin ASPART (NovoLOG) 1 UNIT/0.01 ML (CHARGE PER UNIT) SC SCH ×2 (17:10→20:46)
[2018-08-24] MEDS: NS IV 1000 ML 1,000 ML IV SCH ×2 (17:10→20:44)
--- NOTE | 2018-08-24 17:10 | NUR ---
Noted large hematoma formig over groin area et inner rt leg. Drsg removed et manual pressure placed firmly 2cm above femoral pulse. Shaylee RN et Holly RN in to assist
[2018-08-24] MEDS: DILTIAZEM 60 MG (CARDIZEM) TAB PEG SCH ×2 (17:17→22:12)
--- NOTE | 2018-08-24 17:37 | NUR ---
Text sent to Dr. Judd. No changes in AL remains in 80 et no change in BPs remaain 110-120 SBP. bharti Kinney sup notified
--- NOTE | 2018-08-24 17:51 | NUR ---
Gregoria RN house sup et VANDANA Owen house sup arrived. Dr. Judd called et updated. He stated to call supervisor dental laboratory nurse in.
--- NOTE | 2018-08-24 18:10 | NUR ---
Fadumo RN cath lab tech RN arrived. Hematoma much softer at this point. Manual pressure has remain held since initial hematoma noted. RLE discolored et cool to touch. Continue to massage hematoma
--- NOTE | 2018-08-24 18:40 | NUR ---
Completed holding manual pressure. No hematoma, but bruising noted to rt groin. New drsg applied et sandbag to rt groin.
[2018-08-24] MEDS: TICAGRELOR 90 MG TABLET (BRILINTA) PO SCH (20:44)
[2018-08-24] MEDS: MEXILETINE 150 MG (MEXITIL) CAPSULE PO SCH (20:44)
[2018-08-24] MEDS: ATORVASTATIN 80 MG (LIPITOR) TABLET PO SCH (20:44)
[2018-08-24] MEDS: meTOprolol TARTRATE 25 MG (LOPRESSOR) TABLET PO SCH (20:44)
--- NOTE | 2018-08-24 23:20 | NUR ---
Telephone update given to Dr Judd at this time. Update on groin site. Dr Judd asked about primary physician seeing the patient, this bid writer informed Dr that there was no note from other physician other than the ED Dr but that Dr Rockwell had entered orders earlier on this patient. Order for stat lab at this time.
[2018-08-24 23:50] LABS: BUN/CREATININE RATIO 23; CALCIUM 9.8 MG/DL (8.5-10.1); CARBON DIOXIDE 20 MMOL/L (21-32); CHLORIDE 114 MMOL/L (98-107); CREATININE SERUM 0.97 MG/DL (0.60-1.30); GFR ESTIMATED > 60; GLUCOSE 90 MG/DL (70-105); POTASSIUM 4.5 MMOL/L (3.6-5.0); SODIUM 146 MMOL/L (135-145)
[2018-08-25 00:01] LABS: BASOPHILS % (AUTO) 0 % (0-10); EOSINOPHILS % (AUTO) 0 % (0-10); HEMATOCRIT 36 % (40-54); HEMOGLOBIN 11.1 G/DL (13.3-17.7); LYMPHOCYTES % (AUTO) 10 % (12-44); MEAN CORPUSCULAR HEMOGLOBIN 31 PG (25-34); MEAN CORPUSCULAR HGB CONC 31 G/DL (32-36); MEAN CORPUSCULAR VOLUME 103 FL (80-99); MEAN PLATELET VOLUME 11.1 FL (7.4-10.4); MONOCYTES % (AUTO) 13 % (0-12); NEUTROPHILS # (AUTO) 10.7 X 10^3 (1.8-7.8); NEUTROPHILS % (AUTO) 77 % (42-75); PLATELET COUNT 136 10^3/uL (130-400); RED CELL DISTRIBUTION WIDTH 19.3 % (10.0-14.5); WHITE BLOOD COUNT 13.8 10^3/uL (4.3-11.0)
[2018-08-25 00:02] LABS: LYMPHOCYTES # (AUTO) 1.3 X 10^3 (1.0-4.0); MONOCYTES # (AUTO) 1.8 X 10^3 (0.0-1.0)
[2018-08-25 00:14] LABS: ALBUMIN 3.3 GM/DL (3.2-4.5); BILIRUBIN,DIRECT 0.5 MG/DL (0.0-0.3); BILIRUBIN,INDIRECT 0.5 MG/DL; TOTAL PROTEIN 7.7 GM/DL (6.4-8.2)
--- NOTE | 2018-08-25 00:18 | NUR ---
Telephone call placed to Dr Rockwell at this time. Updated Dr on phone conversation that this auto service writer had with Dr Judd and gave results of all new lab work that was ordered post conversation with Dr Judd to Dr Rockwell at this time. Dr Rockwell gave one time order for Rocephin 1gm. Verified PCN allergy and okayed by to administer.
[2018-08-25] MEDS ORDERED: cefTRIAXone 1,000 MG IV (ROCEPHIN) VIAL ONE (00:25)
[2018-08-25] MEDS ORDERED: NS (IVPB) 50 ML ONE (00:26)
[2018-08-25] MEDS ORDERED: cefTRIAXone FOR IV USE 1,000 MG in NS (IVPB) 50 ML IV ONE (00:30)
[2018-08-25 03:40] LABS: BASOPHILS % (AUTO) 0 % (0-10); EOSINOPHILS % (AUTO) 0 % (0-10); HEMATOCRIT 36 % (40-54); HEMOGLOBIN 10.9 G/DL (13.3-17.7); LYMPHOCYTES # (AUTO) 1.3 X 10^3 (1.0-4.0); LYMPHOCYTES % (AUTO) 11 % (12-44); MEAN CORPUSCULAR HEMOGLOBIN 30 PG (25-34); MEAN CORPUSCULAR HGB CONC 30 G/DL (32-36); MEAN CORPUSCULAR VOLUME 100 FL (80-99); MEAN PLATELET VOLUME 11.8 FL (7.4-10.4); MONOCYTES # (AUTO) 1.4 X 10^3 (0.0-1.0); MONOCYTES % (AUTO) 12 % (0-12); NEUTROPHILS % (AUTO) 77 % (42-75); PLATELET COUNT 139 10^3/uL (130-400); RED CELL DISTRIBUTION WIDTH 18.8 % (10.0-14.5); WHITE BLOOD COUNT 11.7 10^3/uL (4.3-11.0)
[2018-08-25 04:00] VITALS: BP 110/78
[2018-08-25 04:05] LABS: ALANINE AMINOTRANSFERASE 44 U/L (0-55); ALBUMIN 3.2 GM/DL (3.2-4.5); ALKALINE PHOSPHATASE 93 U/L (40-136); BUN/CREATININE RATIO 22; CALCIUM 9.7 MG/DL (8.5-10.1); CARBON DIOXIDE 24 MMOL/L (21-32); CHLORIDE 113 MMOL/L (98-107); CHOLESTEROL 71 MG/DL (< 200); GFR ESTIMATED > 60; GLUCOSE 88 MG/DL (70-105); HDL CHOLESTEROL 25 MG/DL (40-60); POTASSIUM 4.2 MMOL/L (3.6-5.0); SODIUM 148 MMOL/L (135-145); TOTAL PROTEIN 7.6 GM/DL (6.4-8.2); TRIGLYCERIDES 54 MG/DL (<150); VLDL CHOLESTEROL 11 MG/DL (5-40)
[2018-08-25] MEDS: inSUlin ASPART (NovoLOG) 1 UNIT/0.01 ML (CHARGE PER UNIT) SC SCH ×4 (06:04→20:55)
[2018-08-25] MEDS: DILTIAZEM 60 MG (CARDIZEM) TAB PEG SCH ×3 (06:06→20:54)
[2018-08-25 07:00] VITALS: BP 118/56
[2018-08-25] MEDS: NS IV 1000 ML 1,000 ML IV SCH (08:01)
[2018-08-25] MEDS: ASPIRIN E.C. 81 MG (ECOTRIN) TAB PO SCH ×2 (08:02→08:36)
[2018-08-25] MEDS: MEXILETINE 150 MG (MEXITIL) CAPSULE PO SCH ×3 (08:36→20:55)
[2018-08-25] MEDS: TICAGRELOR 90 MG TABLET (BRILINTA) PO SCH ×2 (08:36→20:54)
[2018-08-25] MEDS: AMIODARONE 200 MG (CORDARONE) TAB PEG SCH (08:36)
[2018-08-25] MEDS: lisINopril 5 MG (PRINIVIL) TABLET PO SCH (08:37)
[2018-08-25] MEDS: meTOprolol TARTRATE 25 MG (LOPRESSOR) TABLET PO SCH ×2 (08:37→20:54)
[2018-08-25] MEDS ORDERED: NF-MEXI150 PO (10:16)
[2018-08-25] MEDS ORDERED: FURO40TA4 PO (10:17)
[2018-08-25] MEDS ORDERED: DILT60TA PO (10:18)
[2018-08-25] MEDS ORDERED: POTA20PA28 PO (10:19)
[2018-08-25] MEDS ORDERED: MAGN400O7 PO ×2 (10:22)
[2018-08-25] MEDS ORDERED: ASPI-999 PO (10:23)
[2018-08-25] MEDS ORDERED: METO-387 PO (10:24)
--- NOTE | 2018-08-25 10:27 | NUR ---
SPOKE TO PATIENT AND THEY WERE NOT SURE WHAT PATIENT TOOK. USED ENTERAL MEDICATION HISTORY TO DO MEDICATION HISTORY. FILLES AT [facility] THEY ARE CLOSED TODAY. ON 08/05/18 ENTERAL MEDICATION HISTORY SHOW METOPROLOL TART 25MG BID AND METOPROLOL SUCC 25MG DAILY FILLED
[2018-08-25 11:00] VITALS: BP 120/51
[2018-08-25 12:00] VITALS: BP 114/60
--- NOTE | 2018-08-25 12:00 | History & Physicial (CHS) ---
HPI History of Present Illness: 78 yo chronically ill elderly male that is well known to me that was admitted yesterday for chest pain and found to have NSTEMI. Patient was taken to chemical lab supervisor yesterday with stent placement. Patient states this AM that pain has resolved. He is still having left shoulder pain but states that this is chronic. Patient is PEG tub dependent due to dysphagia and multiple admission for aspiration PNA. Source: patient, family (), RN/MD, old records Exam Limitations: clinical condition Date seen by provider: Aug 25, 2018 Time Seen by Provider: 11:57 PCP Elliot Ybarra MD Consult Date of Admission Home Medications Home Medications Reviewed patient Home Medication Reconciliation performed by pharmacy medication reconciliations traffic engineering technician and/or nursing. Patients Allergies have been reviewed. Allergies Coded Allergies: Penicillins (Verified Allergy, Severe, HIVES, SOB (Pt has received Cefepime & Ceftriaxone), 07/03/18) codeine (Verified Allergy, Severe, SOB, HIVES, 01/04/18) [id number] Hx Patient Social History Living Status: Lives at home with , Has Home Health Alcohol Use: Denies Use Recreational Drug Use: No Smoking Status: Former Smoker Former smoker/When Quit: Aug 02, 1987 Type Used: Cigarettes 2nd Hand Smoke Exposure: No Recent Foreign Travel: No Contact w/other who traveled: No Recent Hopitalizations: Yes Recent Infectious Disease Expo: No Immunizations Up To Date Tetanus Booster (TDap): More than 5yrs Date of Pneumonia Vaccine: May 12, 2018 Date of Influenza Vaccine: May 08, 2018 Past Medical History CAD s/p CABG and stent x2, restenting 08/24/2018 CHF Hypertension COPD hx of ventricular arrhythmia s/p defibrillator placement Atherosclerosis of the R leg Stasis dematitis Dysphagia PEG tube dependent Family Medical History Significant Family History: Heart Disease Family History: Cardiovascular disease 19 MOTHER G8 BROTHER G8 SISTER Cervical cancer 19 MOTHER Review of Systems (CHC) Constitutional: No dizziness, No fever; weakness (chronic) EENTM: no symptoms reported Respiratory: cough, dyspnea on exertion, orthopnea, short of breath Cardiovascular: chest pain (resolved); No edema, No palpitations Gastrointestinal: no symptoms reported; No abdominal pain, No constipation, No diarrhea, No nausea, No vomiting Genitourinary: no symptoms reported; No dysuria, No frequency, No hematuria Musculoskeletal: joint pain (left shoulder pain) Skin: no symptoms reported Psychiatric/Neurological: No Symptoms Reported Reviewed Test Results Reviewed Test Results Lab Laboratory Tests Test 08/24/18 14:45 08/24/18 19:19 08/24/18 20:46 08/24/18 23:25 Range/Units Activated Partial Thromboplast Time 54 H 24-35 SEC Troponin I 0.135 <0.028 NG/ML Glucometer 95 70-110 MG/DL White Blood Count 13.8 H 4.3-11.0 10^3/uL Red Blood Count 3.54 L 4.35-5.85 10^6/uL Hemoglobin 11.1 L 13.3-17.7 G/DL Hematocrit 36 L 40-54 % Mean Corpuscular Volume 103 H 80-99 FL Mean Corpuscular Hemoglobin 31 25-34 PG Mean Corpuscular Hemoglobin Concent 31 L 32-36 G/DL Red Cell Distribution Width 19.3 H 10.0-14.5 % Platelet Count 136 130-400 10^3/uL Mean Platelet Volume 11.1 H 7.4-10.4 FL Neutrophils (%) (Auto) 77 H 42-75 % Lymphocytes (%) (Auto) 10 L 12-44 % Monocytes (%) (Auto) 13 H 0-12 % Eosinophils (%) (Auto) 0 0-10 % Basophils (%) (Auto) 0 0-10 % Neutrophils # (Auto) 10.7 H 1.8-7.8 X 10^3 Lymphocytes # (Auto) 1.3 1.0-4.0 X 10^3 Monocytes # (Auto) 1.8 H 0.0-1.0 X 10^3 Eosinophils # (Auto) 0.0 0.0-0.3 10^3/uL Basophils # (Auto) 0.0 0.0-0.1 10^3/uL Sodium Level 146 H 135-145 MMOL/L Potassium Level 4.5 3.6-5.0 MMOL/L Chloride Level 114 H 98-107 MMOL/L Carbon Dioxide Level 20 L 21-32 MMOL/L Anion Gap 12 5-14 MMOL/L Blood Urea Nitrogen 22 H 7-18 MG/DL Creatinine 0.97 0.60-1.30 MG/DL Estimat Glomerular Filtration Rate > 60 BUN/Creatinine Ratio 23 Glucose Level 90 70-105 MG/DL Calcium Level 9.8 8.5-10.1 MG/DL Total Bilirubin 1.0 0.1-1.0 MG/DL Direct Bilirubin 0.5 H 0.0-0.3 MG/DL Indirect Bilirubin 0.5 MG/DL Aspartate Amino Transf (AST/SGOT) 34 5-34 U/L Alanine Aminotransferase (ALT/SGPT) 44 0-55 U/L Alkaline Phosphatase 96 40-136 U/L Total Protein 7.7 6.4-8.2 GM/DL Albumin 3.3 3.2-4.5 GM/DL Test 08/25/18 03:00 Range/Units White Blood Count 11.7 H 4.3-11.0 10^3/uL Red Blood Count 3.60 L 4.35-5.85 10^6/uL Hemoglobin 10.9 L 13.3-17.7 G/DL Hematocrit 36 L 40-54 % Mean Corpuscular Volume 100 H 80-99 FL Mean Corpuscular Hemoglobin 30 25-34 PG Mean Corpuscular Hemoglobin Concent 30 L 32-36 G/DL Red Cell Distribution Width 18.8 H 10.0-14.5 % Platelet Count 139 130-400 10^3/uL Mean Platelet Volume 11.8 H 7.4-10.4 FL Neutrophils (%) (Auto) 77 H 42-75 % Lymphocytes (%) (Auto) 11 L 12-44 % Monocytes (%) (Auto) 12 0-12 % Eosinophils (%) (Auto) 0 0-10 % Basophils (%) (Auto) 0 0-10 % Neutrophils # (Auto) 9.0 H 1.8-7.8 X 10^3 Lymphocytes # (Auto) 1.3 1.0-4.0 X 10^3 Monocytes # (Auto) 1.4 H 0.0-1.0 X 10^3 Eosinophils # (Auto) 0.0 0.0-0.3 10^3/uL Basophils # (Auto) 0.0 0.0-0.1 10^3/uL Sodium Level 148 H 135-145 MMOL/L Potassium Level 4.2 3.6-5.0 MMOL/L Chloride Level 113 H 98-107 MMOL/L Carbon Dioxide Level 24 21-32 MMOL/L Anion Gap 11 5-14 MMOL/L Blood Urea Nitrogen 22 H 7-18 MG/DL Creatinine 1.00 0.60-1.30 MG/DL Estimat Glomerular Filtration Rate > 60 BUN/Creatinine Ratio 22 Glucose Level 88 70-105 MG/DL Calcium Level 9.7 8.5-10.1 MG/DL Corrected Calcium 10.3 H 8.5-10.1 MG/DL Total Bilirubin 1.0 0.1-1.0 MG/DL Aspartate Amino Transf (AST/SGOT) 33 5-34 U/L Alanine Aminotransferase (ALT/SGPT) 44 0-55 U/L Alkaline Phosphatase 93 40-136 U/L B-Type Natriuretic Peptide 236.9 H <100.0 PG/ML Total Protein 7.6 6.4-8.2 GM/DL Albumin 3.2 3.2-4.5 GM/DL Triglycerides Level 54 <150 MG/DL Cholesterol Level 71 < 200 MG/DL LDL Cholesterol Direct 32 1-129 MG/DL VLDL Cholesterol 11 5-40 MG/DL HDL Cholesterol 25 L 40-60 MG/DL Radiology Date of Exam: 08/24/18 CHEST 1 VIEW, AP/PA ONLY INDICATION: Chest pain. COMPARISON: 07/24/2018. FINDINGS: Single view of the chest demonstrates cardiac enlargement with slight central vascular congestion. There is basilar atelectasis in the right base. Underlying infiltrate not excluded. Trace effusion seen in the right costophrenic angle. There is no pneumothorax. Pacemaker is stable. IMPRESSION: 1. Cardiac enlargement with slight central vascular congestion. 2. Trace effusion, atelectasis and infiltrate right base. Followup recommended. Physical Exam-(CHC) Physical Exam Vital Signs VS - Last 72 Hours, by Label 08/24/18 08/24/18 08/24/18 08/24/18 10:11 10:17 10:53 13:00 Temp 98.0 Pulse 90 91 Resp 16 16 B/P (MAP) 131/77 (95) 129/80 (96) Pulse Ox 96 98 98 O2 Delivery Nasal Cannula Nasal Cannula Room Air Nasal Cannula O2 Flow Rate 2.00 2.00 2.00 08/24/18 08/24/18 08/24/18 08/24/18 13:00 13:15 13:30 13:43 Pulse 85 82 77 90 Resp 27 24 25 B/P (MAP) 135/50 (78) 129/54 (79) 126/52 (76) Pulse Ox 97 96 97 O2 Delivery Room Air Room Air Room Air 08/24/18 08/24/18 08/24/18 08/24/18 13:45 14:00 14:30 15:00 Temp 97.3 Pulse 90 80 90 Resp 18 29 32 B/P (MAP) 127/70 (89) 143/60 (87) 131/75 (93) Pulse Ox 97 97 97 O2 Delivery Room Air Room Air Room Air 08/24/18 08/24/18 08/24/18 08/24/18 15:00 15:30 16:00 16:30 Pulse 90 90 90 84 Resp 20 15 12 20 B/P (MAP) 117/71 (86) 116/91 (99) 120/64 (82) Pulse Ox 97 95 99 99 O2 Delivery Room Air Room Air Nasal Cannula Nasal Cannula O2 Flow Rate 2.00 2.00 08/24/18 08/24/18 08/24/18 08/24/18 17:00 18:00 19:00 19:00 Temp 98.1 Pulse 84 85 85 82 Resp 18 24 B/P (MAP) 108/67 (81) 111/62 (78) 122/65 (84) Pulse Ox 98 98 98 O2 Delivery Nasal Cannula Nasal Cannula Nasal Cannula O2 Flow Rate 2.00 2.00 2.00 08/24/18 08/24/18 08/24/18 08/24/18 20:00 21:00 21:00 23:20 Temp 97.9 Pulse 81 81 Resp 18 20 B/P (MAP) 190/57 (101) 108/55 (72) Pulse Ox 98 99 99 O2 Delivery Nasal Cannula Nasal Cannula Nasal Cannula Nasal Cannula O2 Flow Rate 2.00 2.00 2.00 2.00 08/25/18 08/25/18 08/25/18 08/25/18 01:00 04:00 07:00 08:00 Temp 97.8 Pulse 81 80 78 Resp 20 19 B/P (MAP) 110/78 (89) 118/56 (76) Pulse Ox 99 96 O2 Delivery Nasal Cannula Nasal Cannula Nasal Cannula O2 Flow Rate 2.00 2.00 2.00 08/25/18 08:00 Temp 98.7 Capillary Refill : Less Than 3 Seconds General Appearance: other (Chronically ill appearing elderly male, NAD) Neck: non-tender, full range of motion, supple Respiratory: normal breath sounds, no respiratory distress, no accessory muscle use, decreased breath sounds Cardiovascular: normal peripheral pulses, no murmur Gastrointestinal: normal bowel sounds, non tender, soft, other (PEG tube site C /D/I, no erythema associated with site) Back: no CVA tenderness, no vertebral tenderness Extremities: normal range of motion, non-tender, normal inspection, no pedal edema, no calf tenderness, normal capillary refill Neurologic/Psychiatric: operating engineer II-XII nml as tested, alert, normal mood/affect Lymphatic: no adenopathy Assessment/Plan Assessment/Plan Admission Status: Inpatient Order (span 2 midnights) Reason for Inpatient Admission: ICU care with IV antibiotics and frequent lab monitoring due to hyperkalemia (1) Non-STEMI (non-ST elevated myocardial infarction) Status: Acute Assessment & Plan: - Taken to chemical lab supervisor by Dr Judd s/p 1 stent placement, cardiology managing (2) CAD (coronary artery disease) Status: Chronic Qualifiers: Qualified Codes: I25.110 - Atherosclerotic heart disease of [place] coronary artery with unstable angina pectoris (3) Persistent atrial fibrillation Status: Chronic Assessment & Plan: - Continue home meds (4) Ischemic cardiomyopathy Status: Chronic Assessment & Plan: - Repeat Echo pending (5) Dysphagia Status: Chronic Qualifiers: Qualified Codes: R13.10 - Dysphagia, unspecified (6) ICD (implantable cardioverter-defibrillator) in place Status: Chronic (7) PEG (percutaneous endoscopic gastrostomy) status Status: Chronic (8) Hyperkalemia Status: Resolved Assessment & Plan: - Will continue to monitor with daily labs (9) COPD (chronic obstructive pulmonary disease) Status: Chronic Assessment & Plan: - MAT protocol Qualifiers: Qualified Codes: J44.9 - Chronic obstructive pulmonary disease, unspecified (10) Debility Status: Chronic Assessment & Plan: - PT/OT Copy Copies To 1: Shannan SANTO HOLLY R MD Aug 25, 2018 11:59
--- NOTE | 2018-08-25 12:34 | Diagnostic Imaging Report ---
INDICATION: Coronary artery disease, pacemaker. COMPARISON: 08/24/2018 FINDINGS: Single view of the chest demonstrates stable cardiac enlargement with persistent but decreased central vascular congestion. There is continued basilar atelectasis. Effusions are no longer identified. There is no pneumothorax. The pacemaker is stable. IMPRESSION: 1. Cardiac enlargement with persistent but decreased central vascular congestion. 2. Resolved effusions. 3. Stable basilar atelectasis. Dictated by: Dictated on workstation # [id number]
--- NOTE | 2018-08-25 15:10 | NUR ---
PATIENT TO FLOOR AT THIS TIME VIA W/C ACCOMPANIED BY Andi WILL RN. BEDSIDE REPORT GIVEN AT THIS TIME.
--- NOTE | 2018-08-25 15:22 | NUR ---
PATIENT TX TO RM 425. BEDSIDE REPORT GIVEN TO ALEXI ROSS. PATIENT DENIES ANY NEEDS/PAIN. SAFETY PRECAUTIONS IN PLACE. MAINTAINING POC.
[2018-08-25 16:00] VITALS: BP 107/53
--- NOTE | 2018-08-25 16:07 | Cardiology Progress Note ---
Cardiology SOAP Progress Note Subjective: No further chest pain. Objective: I&O/Vital Signs 08/25/18 08/25/18 08/25/18 08/25/18 07:00 08:00 08:00 11:00 Temp 98.7 Pulse 78 83 Resp 19 22 B/P (MAP) 118/56 (76) 120/51 (74) Pulse Ox 96 97 O2 Delivery Nasal Cannula Nasal Cannula Nasal Cannula O2 Flow Rate 2.00 2.00 2.00 08/25/18 08/25/18 08/25/18 08/25/18 12:00 12:00 13:13 14:31 Temp 99.1 Pulse 83 85 Resp 22 B/P (MAP) 114/60 (78) Pulse Ox 97 O2 Delivery Nasal Cannula Nasal Cannula O2 Flow Rate 2.00 2.00 08/25/18 15:13 Pulse 78 08/25/18 00:00 Intake Total 0 ml Output Total 200 ml Balance -200 ml Weight (Pounds): 160 Weight (Ounces): 4.8 Weight (Calculated Kilograms): 72.313752 Constitutional: appears stated age, AAO x 3; No apparent distress; well- developed, well-nourished Respiratory: No accessory muscle use, No respiratory distress, No chest tender , No chest expansion is symmetric; chest is bilaterally symmetric; No lungs clear to percussion; lungs clear to auscultation; No crackles, No rhonchi, No rales, No stridor, No wheezing, No pleural rub, No other Cardiovascular: regular rate-rhythm; No irregularly irregular, No extra beats, No parasternal heave is noted, No JVD, No edema, No bradycardia, No tachycardia , No point of maximal impulse, No cardiac thrills are palpable; S1 and S2; No gallop/S3, No gallop/S4, No diastolic murmur, No systolic murmur, No friction rub, No click, No other Gastrointestional: No tender, No soft, No round, No distended, No pulsatile mass, No organomegaly, No guarding, No rebound, No tenderness, No hernia, No mass, No audible bowel sounds, No abnormal bowel sounds, No abdominal bruits, No spleenomegaly; other (PEG tube) Extremities: No normal range of motion, No non-tender, No normal inspection, No pedal edema, No calf tenderness, No normal capillary refill, No pelvis stable , No calf tenderness, No inflammation, No pedal edema, No slow capillary refill , No swelling, No other, No abrasion, No clubbing, No cyanosis, No ecchymosis, No laceration, No no lower extremity edema bilateral, No significant edema, No tenderness, No wound Neurologic/Psychiatric: no motor/sensory deficits, alert, normal mood/affect, oriented x 3, power is 5/5 both on sides Skin: No normal color, No warm/dry, No cyanosis, No cool, No diaphoresis, No damp, No ecchymosis, No jaundice, No mottled, No pallor, No rash, No tattoos/ piercings, No ulcerations, No rash on exposed areas, No ulcerations on exposed areas, No other Results/Procedures: Labs Laboratory Tests 08/24/18 19:19: Troponin I 0.135 08/24/18 20:46: Glucometer 95 08/24/18 23:25: White Blood Count 13.8H, Red Blood Count 3.54L, Hemoglobin 11.1L, Hematocrit 36L , Mean Corpuscular Volume 103H, Mean Corpuscular Hemoglobin 31, Mean Corpuscular Hemoglobin Concent 31L, Red Cell Distribution Width 19.3H, Platelet Count 136, Mean Platelet Volume 11.1H, Neutrophils (%) (Auto) 77H, Lymphocytes ( %) (Auto) 10L, Monocytes (%) (Auto) 13H, Eosinophils (%) (Auto) 0, Basophils (% ) (Auto) 0, Neutrophils # (Auto) 10.7H, Lymphocytes # (Auto) 1.3, Monocytes # ( Auto) 1.8H, Eosinophils # (Auto) 0.0, Basophils # (Auto) 0.0, Sodium Level 146H , Potassium Level 4.5, Chloride Level 114H, Carbon Dioxide Level 20L, Anion Gap 12, Blood Urea Nitrogen 22H, Creatinine 0.97, Estimat Glomerular Filtration Rate > 60, BUN/Creatinine Ratio 23, Glucose Level 90, Calcium Level 9.8, Total Bilirubin 1.0, Direct Bilirubin 0.5H, Indirect Bilirubin 0.5, Aspartate Amino Transf (AST/SGOT) 34, Alanine Aminotransferase (ALT/SGPT) 44, Alkaline Phosphatase 96, Total Protein 7.7, Albumin 3.3 08/25/18 03:00: White Blood Count 11.7H, Red Blood Count 3.60L, Hemoglobin 10.9L, Hematocrit 36L , Mean Corpuscular Volume 100H, Mean Corpuscular Hemoglobin 30, Mean Corpuscular Hemoglobin Concent 30L, Red Cell Distribution Width 18.8H, Platelet Count 139, Mean Platelet Volume 11.8H, Neutrophils (%) (Auto) 77H, Lymphocytes ( %) (Auto) 11L, Monocytes (%) (Auto) 12, Eosinophils (%) (Auto) 0, Basophils (%) (Auto) 0, Neutrophils # (Auto) 9.0H, Lymphocytes # (Auto) 1.3, Monocytes # (Auto ) 1.4H, Eosinophils # (Auto) 0.0, Basophils # (Auto) 0.0, Sodium Level 148H, Potassium Level 4.2, Chloride Level 113H, Carbon Dioxide Level 24, Anion Gap 11 , Blood Urea Nitrogen 22H, Creatinine 1.00, Estimat Glomerular Filtration Rate > 60, BUN/Creatinine Ratio 22, Glucose Level 88, Calcium Level 9.7, Total Bilirubin 1.0, Aspartate Amino Transf (AST/SGOT) 33, Alanine Aminotransferase ( ALT/SGPT) 44, Alkaline Phosphatase 93, Total Protein 7.6, Albumin 3.2, Corrected Calcium 10.3H, B-Type Natriuretic Peptide 236.9H, Triglycerides Level 54, Cholesterol Level 71, LDL Cholesterol Direct 32, VLDL Cholesterol 11, HDL Cholesterol 25L 08/25/18 11:36: Glucometer 129H A/P: Assessment/Dx: Acute non-STEMI, refractory to medical therapy, Atrial fibrillation persistent, Ischemic cardiomyopathy, biventricular ICD, History of ventricular tachycardia/ventricular fibrillation, Chronic kidney injury, COPD, History of PEG placement, Leukocytosis, Anemia, Hyperkalemia, Hypomagnesemia, Elevated LFTs Plan: Acute non-STEMI, refractory to medical therapy, ongoing chest pain in the ER with some relief with medical therapy. Urgent coronary angiography is recommended. Patient was taken directly to the catheter lab from the ER and coronary angiography showed severe disease in mid left circumflex artery which was treated with a drug-eluting stent 2.75 x 14 mm resolute integrity. No further chest pain. Mild right groin bruising noted. No significant change in hemoglobin. Continue dual antiplatelet therapy. Atrial fibrillation persistent, patient is on amiodarone, mexiletine, digoxin, verapamil, metoprolol. Not on oral anticoagulation due to previous history of bleeding. Ischemic cardiomyopathy, biventricular ICD, History of ventricular tachycardia/ventricular fibrillation, on amiodarone and mexiletine. Elevated digoxin level, hold digoxin. Chronic kidney injury, COPD, History of PEG placement, patient does not know the reason why he has PEG placement. Leukocytosis, will defer to Dr. Verdin. Patient has recent history of UTI sepsis. Anemia, Hyperkalemia, defer to Dr. Verdin. Hypermagnesemia, Elevated LFTs. Patient will like to transition to cardiology/cardiac electrophysiology care in [place]. I'll be happy to take care of him as an outpatient as well. Thank you for your consultation. Please call me if you have any questions. Simin Judd MD, FACP, FACC, FSCAI, FHRS, CCDS Interventional Cardiology Cardiac Electrophysiology Vascular Medicine and Endovascular Interventions Gabriela JUDD MD Aug 25, 2018 4:07 pm
--- NOTE | 2018-08-25 17:26 | NUR ---
PER VANDANA DUARTE PATIENT WAS FED THIS A.M. (0800) VIA PEG TUBE ONE AND HALF CARTONS (12OZ.) OF PULMOCARE BID.
[2018-08-25 20:00] VITALS: BP 115/59
[2018-08-25] MEDS: ATORVASTATIN 80 MG (LIPITOR) TABLET PO SCH (20:54)
[2018-08-26 00:12] VITALS: BP 118/57
[2018-08-26 04:08] VITALS: BP 121/60
[2018-08-26] MEDS: inSUlin ASPART (NovoLOG) 1 UNIT/0.01 ML (CHARGE PER UNIT) SC SCH ×4 (05:24→21:43)
[2018-08-26] MEDS: DILTIAZEM 60 MG (CARDIZEM) TAB PEG SCH ×3 (05:24→21:11)
[2018-08-26 08:00] VITALS: BP 106/55
[2018-08-26] MEDS: AMIODARONE 200 MG (CORDARONE) TAB PEG SCH (08:34)
[2018-08-26] MEDS: ASPIRIN E.C. 81 MG (ECOTRIN) TAB PO SCH ×2 (08:35)
[2018-08-26] MEDS: lisINopril 5 MG (PRINIVIL) TABLET PO SCH (08:35)
[2018-08-26] MEDS: TICAGRELOR 90 MG TABLET (BRILINTA) PO SCH ×2 (08:35→21:13)
[2018-08-26] MEDS: meTOprolol TARTRATE 25 MG (LOPRESSOR) TABLET PO SCH ×2 (08:35→21:13)
[2018-08-26] MEDS: MEXILETINE 150 MG (MEXITIL) CAPSULE PO SCH ×3 (08:47→21:12)
--- NOTE | 2018-08-26 09:29 | Progress Note-Hospitalist ---
TOREYBRIGITTE DO 08/26/18 0929: Subjective HPI/CC On Admission Date Seen by Provider: Aug 26, 2018 Time Seen by Provider: 09:00 Subjective/Events-last exam Patient doing well No complications after stent was placed 22 pound weight loss noted and told me she is giving him 1-1/2 cans of tube feeding twice daily with fluids and unsure how many calories that is does not appear to be enough Patient has failed home care as predicted when he was discharged from inpatient rehabilitation so I will consult social work for penitentiary placement Overall patient appears to be significantly declined Home meds were restarted We'll consult dietary Patient appears in radiology to be a hospice candidate Needs DO NOT RESUSCITATE status Review of Systems General: Fatigue Objective Exam Vital Signs Vital Signs Date Time Temp Pulse Resp B/P (MAP) Pulse Ox O2 Delivery O2 Flow Rate FiO2 08/26/18 12:53 82 08/26/18 08:27 100 Nasal Cannula 2.00 08/26/18 08:00 97.2 24 106/55 (72) Capillary Refill : Less Than 3 Seconds General Appearance: No Apparent Distress, WD/WN, Thin Respiratory: Chest Non Tender, Lungs Clear, Normal Breath Sounds, No Accessory Muscle Use, No Respiratory Distress, Decreased Breath Sounds Cardiovascular: Regular Rate, Rhythm, No Edema, No Gallop, No JVD, No Murmur, Normal Peripheral Pulses Neurologic/Psychiatric: Alert, Oriented x3, No Motor/Sensory Deficits, Normal Mood/Affect Results/Procedures Lab Patient resulted labs reviewed. Assessment/Plan Assessment and Plan Assess & Plan/Chief Complaint Assessment: Acute non-ST elevation [place] status post stent placement Failed home care with needs penitentiary placement Decline status appears to be more of a hospice candidate Aspiration with dysphagia maintain on chronic PEG tube feeding Profound weight loss likely not giving patient enough nutrition with tube feedings Chronic and severe debility Previous MRSA pneumonia Oxygen dependent Plan: Social work for placement Needs DO NOT RESUSCITATE Failed home as predicted Dietary consult Address profound weight loss which could have placed a lot of stress on the patient and subsequent given rise to the non-ST elevation [place] Diagnosis/Problems Diagnosis/Problems (1) Non-STEMI (non-ST elevated myocardial infarction) Status: Acute (2) CAD (coronary artery disease) Status: Chronic Qualifiers: Coronary Disease-Associated Artery/Lesion type: [place] artery [place] vs. transplanted heart: [place] heart Associated angina: with unstable angina Qualified Codes: I25.110 - Atherosclerotic heart disease of [place] coronary artery with unstable angina pectoris (3) Persistent atrial fibrillation Status: Chronic (4) Ischemic cardiomyopathy Status: Chronic (5) ICD (implantable cardioverter-defibrillator) in place Status: Chronic (6) Diabetes mellitus, type 2 Status: Chronic Qualifiers: Diabetes mellitus mcfp insulin use: with mcfp use Diabetes mellitus complication status: with circulatory complication Diabetes mellitus complication detail: with other circulatory complications Qualified Codes: E11.59 - Type 2 diabetes mellitus with other circulatory complications; Z79.4 - long term care administrator (current) use of insulin (7) Hyperkalemia Status: Resolved Resolution Date/Time: 08/25/18 @ 12:05 (8) Anemia Status: Acute Qualifiers: Anemia type: unspecified type Qualified Codes: D64.9 - Anemia, unspecified (9) Leukocytosis Status: Acute (10) Dysphagia Status: Chronic Qualifiers: Dysphagia type: unspecified Qualified Codes: R13.10 - Dysphagia, unspecified (11) PEG (percutaneous endoscopic gastrostomy) status Status: Chronic (12) COPD (chronic obstructive pulmonary disease) Status: Chronic Qualifiers: COPD type: unspecified COPD Qualified Codes: J44.9 - Chronic obstructive pulmonary disease, unspecified (13) Debility Status: Chronic (14) DVT prophylaxis Status: Acute BRIANNA FREEDMAN MEDICAL STUDENT 08/26/18 1216: Subjective HPI/CC On Admission CC: Chest pain HPI: This is a 78-year-old white male who presented to the ER on Sunday, , complaining of chest pain. The pt's states he had complained of L shoulder pain and tingling on Sunday during his therapy exercises. Since he has a hx of chronic L shoulder pain, they did not go to the ER until the patient began to also experience CP on Sunday. On assessment in the ED, the pt had an NSTEMI refractory to medication management. He was taken to cardiac cath by Dr. Judd and had a stent placed in the left circumflex coronary artery. The pt has a PEG tube placement due to dysphagia and a hx of recurrent aspiration PNA. He was most recently discharged to home w/ home health from Inpatient Rehab 3 weeks ago. The pt's states she has been feeding him "1.5 cans" BID since discharge. Notably, the patient has lost 23 pounds over the past 3 weeks. The pt 's felt she has been out of the loop concerning the pt's care since arriving to the hospital. Subjective/Events-last exam Pt denies CP but still experiencing some L shoulder pain Denies dyspnea, fevers/chills Denies pain at femoral cath site Review of Systems General: No Chills, No Fatigue HEENT: No Head Aches, No Visual Changes Pulmonary: No Dyspnea Cardiovascular: No: Chest Pain Gastrointestinal: No: Nausea Musculoskeletal: shoulder pain Objective Exam General Appearance: No Apparent Distress, WD/WN, Chronically ill Respiratory: Chest Non Tender, Lungs Clear, Normal Breath Sounds, No Accessory Muscle Use, No Respiratory Distress Cardiovascular: Regular Rate, Rhythm, No Edema, No Gallop, No JVD, No Murmur, Normal Peripheral Pulses Gastrointestinal: Normal Bowel Sounds, No Organomegaly, No Pulsatile Mass, Non Tender, Soft, Other (PEG securely in place, C/D/I) Extremity: Non Tender, No Calf Tenderness, No Pedal Edema Neurologic/Psychiatric: Alert ( gave most of history), No Motor/Sensory Deficits, Normal Mood/Affect Assessment/Plan Assessment and Plan Assess & Plan/Chief Complaint Assessment: NSTEMI s/p cardiac cath CAD Chronic atrial fibrillation Hx of ventricular tachycardia, ICD in place Ischemic cardiomyopathy Dysphagia, PEG in place COPD Hyperkalemia, resolved Macrocytic anemia Mild leukocytosis Debility Rapid weight loss Plan: Resume home meds Pt failed discharge to home and home health, will need Pre Owned Sales Manager consult for SNF placement F/u w/ cardiology as outpatient Monitor glucose and electrolytes, control as needed Stable, mild leukocytosis w/o fever is likely due to post-IL inflammatory response. No e/o acute process on CXR. No need for abx at this time. Diagnosis/Problems Diagnosis/Problems (1) Non-STEMI (non-ST elevated myocardial infarction) Status: Acute (2) CAD (coronary artery disease) Status: Chronic Qualifiers: Coronary Disease-Associated Artery/Lesion type: [place] artery [place] vs. transplanted heart: [place] heart Associated angina: with unstable angina Qualified Codes: I25.110 - Atherosclerotic heart disease of [place] coronary artery with unstable angina pectoris (3) Persistent atrial fibrillation Status: Chronic (4) Ischemic cardiomyopathy Status: Chronic (5) ICD (implantable cardioverter-defibrillator) in place Status: Chronic (6) Diabetes mellitus, type 2 Status: Chronic Qualifiers: Diabetes mellitus termite control technician insulin use: with termite control technician use Diabetes mellitus complication status: with circulatory complication Diabetes mellitus complication detail: with other circulatory complications Qualified Codes: E11.59 - Type 2 diabetes mellitus with other circulatory complications; Z79.4 - halfway (current) use of insulin (7) Hyperkalemia Status: Resolved Resolution Date/Time: 08/25/18 @ 12:05 (8) Anemia Status: Acute Qualifiers: Anemia type: unspecified type Qualified Codes: D64.9 - Anemia, unspecified (9) Leukocytosis Status: Acute (10) Dysphagia Status: Chronic Qualifiers: Dysphagia type: unspecified Qualified Codes: R13.10 - Dysphagia, unspecified (11) PEG (percutaneous endoscopic gastrostomy) status Status: Chronic (12) COPD (chronic obstructive pulmonary disease) Status: Chronic Qualifiers: COPD type: unspecified COPD Qualified Codes: J44.9 - Chronic obstructive pulmonary disease, unspecified (13) Debility Status: Chronic (14) DVT prophylaxis Status: Acute BRIGITTE LEMA DO Aug 26, 2018 09:29 BRIANNA FREEDMAN MEDICAL STUDENT Aug 26, 2018 12:16
[2018-08-26] MEDS ORDERED: NON-FORMULARY MEDICATION 1 EA EA (Cholestyramine/Aspartame (Prevalite Packet) 4 GM) PO SCH (10:00)
[2018-08-26] MEDS ORDERED: RT-ALBUTEROL SULF 2.5 MG/3 ML PRE-MIX VIAL IH PRN (10:00)
[2018-08-26] MEDS ORDERED: diphenhydrAMINE 25 MG TAB (BENADRYL) PO PRN (10:00)
[2018-08-26] MEDS ORDERED: MILK OF MAGNESIA 400 MG/5 ML 30 ML UDC PO PRN (10:00)
[2018-08-26] MEDS ORDERED: ONDANSETRON 4 MG (ZOFRAN) ORAL DISSOLVE TAB PO PRN (10:00)
[2018-08-26] MEDS ORDERED: DOCUSATE SODIUM 100 MG (COLACE) CAP PO PRN (10:00)
[2018-08-26] MEDS ORDERED: MELATONIN 3 MG TABLET PO PRN (10:00)
[2018-08-26] MEDS ORDERED: CALCIUM CARBONATE 500 MG (TUMS) TAB.CHEW PO PRN (10:00)
[2018-08-26] MEDS ORDERED: DILTIAZEM 60 MG (CARDIZEM) TAB PO SCH (10:00)
--- NOTE | 2018-08-26 10:10 | NUR ---
CM/SS spoke with the patient and his about the recommendation that they consider SNF at discharge. Patient's Veronica stated that until last Sunday he was up and able to get around on his own. Patient nor his will consider a SNF placement. Patient stated that he would run away if placed in a facility. Veronica was adament that she was able to meet his needs at home with his feedings, that he has PT/RN/Speech up to three times a week with [facility].
[2018-08-26] MEDS: KCL 20 MEQ POWDER FOR ORAL SOLUTION PO SCH (10:11)
[2018-08-26] MEDS: ACETAMINOPHEN 500 MG TAB (TYLENOL) PO PRN (10:11)
[2018-08-26 12:00] VITALS: BP 119/57
--- NOTE | 2018-08-26 14:47 | Cardiology Progress Note ---
Cardiology SOAP Progress Note Subjective: No chest pain. Objective: I&O/Vital Signs 08/26/18 08/26/18 08/26/18 08/26/18 04:08 07:00 08:00 08:27 Temp 98.0 97.2 Pulse 71 79 78 Resp 18 24 B/P (MAP) 121/60 (80) 106/55 (72) Pulse Ox 94 98 100 O2 Delivery Nasal Cannula Nasal Cannula Nasal Cannula O2 Flow Rate 2.00 2.00 2.00 08/26/18 08/26/18 12:00 12:53 Temp 98.9 Pulse 78 82 Resp 22 B/P (MAP) 119/57 (77) Pulse Ox 96 O2 Delivery Nasal Cannula O2 Flow Rate 2.00 08/26/18 00:00 Intake Total 0 ml Output Total 350 ml Balance -350 ml Weight (Pounds): 160 Weight (Ounces): 4.8 Weight (Calculated Kilograms): 72.544328 Constitutional: appears stated age, AAO x 3; No apparent distress; well- developed, well-nourished Respiratory: No accessory muscle use, No respiratory distress, No chest tender , No chest expansion is symmetric; chest is bilaterally symmetric; No lungs clear to percussion; lungs clear to auscultation; No crackles, No rhonchi, No rales, No stridor, No wheezing, No pleural rub, No other Cardiovascular: regular rate-rhythm; No irregularly irregular, No extra beats, No parasternal heave is noted, No JVD, No edema, No bradycardia, No tachycardia , No point of maximal impulse, No cardiac thrills are palpable; S1 and S2; No gallop/S3, No gallop/S4, No diastolic murmur, No systolic murmur, No friction rub, No click, No other Gastrointestional: No tender, No soft, No round, No distended, No pulsatile mass, No organomegaly, No guarding, No rebound, No tenderness, No hernia, No mass, No audible bowel sounds, No abnormal bowel sounds, No abdominal bruits, No spleenomegaly; other (PEG tube) Extremities: No normal range of motion, No non-tender, No normal inspection, No pedal edema, No calf tenderness, No normal capillary refill, No pelvis stable , No calf tenderness, No inflammation, No pedal edema, No slow capillary refill , No swelling, No other, No abrasion, No clubbing, No cyanosis, No ecchymosis, No laceration, No no lower extremity edema bilateral, No significant edema, No tenderness, No wound Neurologic/Psychiatric: no motor/sensory deficits, alert, normal mood/affect, oriented x 3, power is 5/5 both on sides Skin: No normal color, No warm/dry, No cyanosis, No cool, No diaphoresis, No damp, No ecchymosis, No jaundice, No mottled, No pallor, No rash, No tattoos/ piercings, No ulcerations, No rash on exposed areas, No ulcerations on exposed areas, No other Results/Procedures: Labs Laboratory Tests 08/25/18 16:48: Glucometer 98 08/25/18 20:23: Glucometer 100 08/26/18 11:17: Glucometer 126H A/P: Assessment/Dx: Acute non-STEMI, refractory to medical therapy, Atrial fibrillation persistent, Ischemic cardiomyopathy, biventricular ICD, History of ventricular tachycardia/ventricular fibrillation, Chronic kidney injury, COPD, History of PEG placement, Leukocytosis, Anemia, Hyperkalemia, Hypomagnesemia, Elevated LFTs Plan: Acute non-STEMI, refractory to medical therapy, ongoing chest pain in the ER with some relief with medical therapy. Urgent coronary angiography is recommended. Patient was taken directly to the catheter lab from the ER on 08/24 and coronary angiography showed severe disease in mid left circumflex artery which was treated with a drug-eluting stent 2.75 x 14 mm resolute integrity. No further chest pain. Mild right groin bruising noted. No significant change in hemoglobin. Continue dual antiplatelet therapy. Atrial fibrillation persistent, patient is on amiodarone, mexiletine, digoxin, verapamil, metoprolol. Not on oral anticoagulation due to previous history of bleeding. Ischemic cardiomyopathy, biventricular ICD, History of ventricular tachycardia/ventricular fibrillation, on amiodarone and mexiletine. Elevated digoxin level, hold digoxin. Chronic kidney injury, COPD, History of PEG placement, patient does not know the reason why he has PEG placement. Leukocytosis, will defer to Dr. Verdin. Patient has recent history of UTI sepsis. Anemia, Hyperkalemia, defer to Dr. Verdin. Hypermagnesemia, Elevated LFTs. Patient will like to transition to cardiology/cardiac electrophysiology care in [place]. I'll be happy to take care of him as an outpatient as well. Thank you for your consultation. Please call me if you have any questions. Simin Judd MD, FACP, FACC, FSCAI, FHRS, CCDS Interventional Cardiology Cardiac Electrophysiology Vascular Medicine and Endovascular Interventions Gabriela JUDD MD Aug 26, 2018 2:47 pm
--- NOTE | 2018-08-26 15:52 | Physical Therapy Evaluation ---
PT Evaluation-General Medical Diagnosis Admission Date 08/24/2018 Medical Diagnosis: NSTEMI post stent Onset Date: Aug 24, 2018 Therapy Diagnosis Therapy Diagnosis: weakness; abn gait Height/Weight Height (Feet): 5 Height (Inches): 5.00 Weight (Pounds): 160 Weight (Ounces): 4.8 Precautions Precautions/Isolations: Droplet Isolation, Fall Prevention, Standard Precautions Referral Physician: Sandra Reason for Referral: Evaluation/Treatment Medical History Pertinent Medical History: Atrial Fib, Arthritis, CABG, CAD, COPD, Dementia, GERD, [place], Neuropathy Current History Pt presented to ER and found to have NSTEMI, post stent placement. Reviewed History: Yes Social History Home: Apartment Current Living Status: Spouse Entry Into Home: Level Entry Prior/Core FIM Prior Level of Function Therapy Code Descriptions/Definitions Functional [place] Measure: 0=Not Assessed/NA 4=Minimal Assistance 1=Total Assistance 5=Supervision or Setup 2=Maximal Assistance 6=Modified [place] 3=Moderate Assistance 7=Complete [place] Therapy Quality Codes: 6 Independent with activity with or without an assistive device 5 Patient requires set up or clean up by helper. Patient completes activity by themselves 4 Supervision or touching assist (CGA). [place] provide cues , steadying assist 3 The helper provides less than half the effort to complete the activity 2 The helper provides more than half the effort to complete the activity 1 Dependent. The helper does all the effort to complete an activity 7 Patient refused to complete or attempt activity 9 The patient did not perform the activity before the current illness or injury 88 Not attempted due to Medical conditions or safety concerns Functional Abilities and Goals: Independent: Patient completed the activities by him/herself, with or without an assistive device, with no assistance from a helper. Needed Some Help: Patient needed partial assistance from another person to complete activities. Dependent: A helper completed the activities for the patient. Unknown: Not Applicable: Bed Mobility: 6 Transfers (B,C,W/C) (FIM): 6 Gait: 6 Indoor Mobility (Ambulation): Independent Stairs: Not [place] Prior Devices Use: Manual wheelchair, Walker pt was mod indep in his home with his assisting as needed. Walks short distances and uses a wc. Pt was receiving [facility] PT prior to admit PT Evaluation-Current Subjective Agreeable to PT and wants to get up to the chair. Pt/Family Goals Home with when able. Objective Patient Orientation: Person, Confused, Place, Time, Situation Attachments: Oxygen, [place] Catheter ROM/Strength ROM Lower Extremities WFL Strength Lower Extremities B LE strength is grossly 4-/5 Integumentary/Posture Integumentary Refer to nursing notes; bandage on buttock Bowel Incontinence: No Bladder Incontinence: [place] Cath Posture rounded shoulders and slight forward head; symmetrical Neuromuscular (Tone, Coordination, Reflexes) intact Sensory Vision: Wears Glasses Hearing: Impaired Hand Dominance: Right Sensation Right Lower Extremit: Intact Sensation Left Lower Extremity: Intact Transfers Therapy Code Descriptions/Definitions Functional [place] Measure: 0=Not Assessed/NA 4=Minimal Assistance 1=Total Assistance 5=Supervision or Setup 2=Maximal Assistance 6=Modified [place] 3=Moderate Assistance 7=Complete [place] Transfers (B, C, W/C) (FIM): 3 Supine to/from Sit: 3 (mod assist to sit up to EOB; pt able to initiate and participate in task) Sit to/from Stand: 4 (CGA with skilled cues for hand placement. ) Pt took 4-5 steps and transferred to the chair with FWW with close CGA for safety. Balance Sitting Static: Good Sitting Dynamic: Good Standing Static: Fair Standing Dynamic: Fair Assessment/Needs Presents post NSTEMI with stent placement. Pt also has experienced 22 pound weight loss recently. He demonstrates gross functional weakness and requires assist with all mobility. He will benefit from skilled PT to address these deficits and improve his mobility to the point he mobilizes without assist. Rehab Potential: Good PT Vp Strategic Planning Goals Snf Goals 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 Time Frame: Sep 02, 2018 Transfers (B,C,W/C) (FIM): 6 Gait (FIM): 5 Gait distance (FIM): 2=790-71 ft Gait Assistive Device: FWW PT Plan Problem List Problem List: Activity Tolerance, Functional Strength, Safety, Balance, Gait, Transfer, Bed Mobility Treatment/Plan Treatment Plan: Continue Plan of Care Treatment Plan: Bed Mobility, Education, Functional Activity [place], Functional Strength, Gait, Safety, Therapeutic Exercise, Transfers Treatment Duration: Sep 02, 2018 Frequency: 6 times per week Estimated Hrs Per Day: .5 hour per day Patient and/or Family Agrees t: Yes Safety Risks/Education Patient Education: Transfer Techniques, Safety Issues Teaching Recipient: Patient, Significant Other Teaching Methods: Demonstration, Discussion Response to Teaching: Reinforcement Needed Discharge Recommendations Therapy D/C Recommendations: Physical Therapy Home Care Time/GCodes Time In: 1515 Time Out: 1540 Total Billed Treatment Time: 25 Total Billed Treatment visit EVM 25 AYLA PEREZ PT Aug 26, 2018 15:52
[2018-08-26 16:30] VITALS: BP 112/54
--- NOTE | 2018-08-26 16:55 | Occupational Therapy Eval ---
OT Evaluation-General/PLF Medical Diagnosis Admission Date 08-25-18 Medical Diagnosis: NSTEMI post stent Onset Date: Aug 24, 2018 Therapy Diagnosis Therapy Diagnosis: Weakness Height/Weight Height (Feet): 5 Height (Inches): 5.00 Weight (Pounds): 160 Weight (Ounces): 4.8 Precautions Precautions/Isolations: Droplet Isolation, Fall Prevention, Standard Precautions Weight Bear Status Weight Bearing Restriction: Weight Bearing/Tolerated Referral Physician: Sandra Referral Reason: Activity Tolerance, Self Care, Evaluation/Treatment, Strengthening/ROM Medical History Pertinent Medical History: Atrial Fib, Arthritis, CABG, CAD, COPD, Dementia, GERD, [place], Neuropathy Current History Pt. was recently on rehab unit. Went home. Has lost 22 pounds. Spouse states that she is worried about pt. going into fdc. Pt. came in with chest pains. Underwent stent x 2. Reviewed History: Yes Social History Home: Apartment Current Living Status: Spouse Entry Into Home: Level Entry ADL-Prior Level of Function Therapy Code Descriptions/Definitions Functional [place] Measure: 0=Not Assessed/NA 4=Minimal Assistance 1=Total Assistance 5=Supervision or Setup 2=Maximal Assistance 6=Modified [place] 3=Moderate Assistance 7=Complete [place] Therapy Quality Codes: 6 Independent with activity with or without an assistive device 5 Patient requires set up or clean up by helper. Patient completes activity by themselves 4 Supervision or touching assist (CGA). [place] provide cues , steadying assist 3 The helper provides less than half the effort to complete the activity 2 The helper provides more than half the effort to complete the activity 1 Dependent. The helper does all the effort to complete an activity 7 Patient refused to complete or attempt activity 9 The patient did not perform the activity before the current illness or injury 88 Not attempted due to Medical conditions or safety concerns Functional Abilities and Goals: Independent: Patient completed the activities by him/herself, with or without an assistive device, with no assistance from a helper. Needed Some Help: Patient needed partial assistance from another person to complete activities. Dependent: A helper completed the activities for the patient. Unknown: Not Applicable: ADL PLOF Comments Pt. was receiving assistance from spouse and caregiver for daily tasks such as bathing and dressing. Self Care: Needed Some Help Functional Cognition: Needed Some Help DME/Equipment: Bath Chair, Shower DME/Equipment Comments Walker OT Current Status Subjective Pt. does not report pain. Appearance Pt. in bed. Alert and recognized this OT. Smiled and agrees to work with therapist. Mental Status/Objective Patient Orientation: Person, Place Current Glasses/Contacts: Yes Hearing Aids: Yes Hand Dominance: Right ADL-Treatment Therapy Code Descriptions/Definitions Functional [place] Measure: 0=Not Assessed/NA 4=Minimal Assistance 1=Total Assistance 5=Supervision or Setup 2=Maximal Assistance 6=Modified [place] 3=Moderate Assistance 7=Complete [place] Therapy Quality Codes: 6 Independent with activity with or without an assistive device 5 Patient requires set up or clean up by helper. Patient completes activity by themselves 4 Supervision or touching assist (CGA). [place] provide cues , steadying assist 3 The helper provides less than half the effort to complete the activity 2 The helper provides more than half the effort to complete the activity 1 Dependent. The helper does all the effort to complete an activity 7 Patient refused to complete or attempt activity 9 The patient did not perform the activity before the current illness or injury 88 Not attempted due to Medical conditions or safety concerns Lower Body Dressing (FIM): 1 Transfers (B, C, W/C) (FIM): 3 (Pt. required mod assist supine-sit. Sat on side of bed and able to balance self. Stood x 2 with min assist and able to take steps toward HOB. Min assist needd to get right LE back into bed. All needs met.) Education OT Patient Education: Correct positioning, Modified ADL techniques, Progress toward Goal/Update tx plan, Purpose of tx/functional activities, Reviewed precautions, Rehab process, Transfer techniques Teaching Recipient: Patient Teaching Methods: Demonstration, Discussion Response to Teaching: Verbalize Understanding, Return Demonstration OT Short Term Goals Short Term Goals 1=Demonstrate adherence to instructed precautions during ADL tasks. 2=Patient will verbalize/demonstrate understanding of assistive devices/ modifications for ADL. 3=Patient will improve strength/tolerance for activity to enable patient to perform ADL's. OT Equities Trader Goals Equities Trader Goals Time Frame: Sep 09, 2018 Grooming(FIM): 4 Upper Body Dressing(FIM): 4 Toileting(FIM): 5 Transfers (B,C,W/C) (FIM): 6 Toilet/Commode Transfer(FIM): 6 Additional Goals: 1-Demonstrate ADL Tasks, 2-Verbalize Understanding, 3- ImproveStrength/[place] 1=Demonstrate adherence to instructed precautions during ADL tasks. 2=Patient will verbalize/demonstrate understanding of assistive devices/ modifications for ADL. 3=Patient will improve strength/tolerance for activity to enable patient to perform ADL's. OT Education/Plan Problem List/Assessment Assessment: Decreased Activ Tolerance, Dependent Transfers, Impaired Bed Mobility, Impaired Cognition, Impaired I ADL's, Impaired Self-Care Skills Discharge Recommendations Plan/Recommendations: Continue POC Therapy D/C Recommendations: 24 hr Supervision, Home w/ Family Support, Scheduled Assistance Treatment Plan/Plan of Care Treatment,Training & Education: Yes Patient would benefit from OT for education, treatment and training to promote independence in ADL's, mobility, safety and/or upper extremity function for ADL' s. Plan of Care: ADL Retraining, Functional Mobility, UE Funct Exercise/Act Treatment Duration: Sep 09, 2018 Frequency: 5 times per week Estimated Hrs Per Day: .25 hour per day Agreement: Yes Rehab Potential: Fair Time/GCodes Start Time: 14:20 Stop Time: 14:35 Total Time Billed (hr/min): 15 Billed Treatment Time 1, ALFREDO HAN OT Aug 26, 2018 16:55
[2018-08-26 20:20] VITALS: BP 106/55
[2018-08-26] MEDS ORDERED: MEXILETINE HCL 150 MG PO SCH (21:00)
[2018-08-26] MEDS ORDERED: ATORVASTATIN 40 MG (LIPITOR) TABLET PO SCH (21:00)
[2018-08-26] MEDS: FUROSEMIDE 40 MG (LASIX) TAB PO SCH (21:12)
[2018-08-26] MEDS: ATORVASTATIN 80 MG (LIPITOR) TABLET PO SCH (21:12)
[2018-08-27 00:04] VITALS: BP 97/57
[2018-08-27 04:11] VITALS: BP 108/60
[2018-08-27] MEDS: DILTIAZEM 60 MG (CARDIZEM) TAB PEG SCH (05:44)
[2018-08-27] MEDS: inSUlin ASPART (NovoLOG) 1 UNIT/0.01 ML (CHARGE PER UNIT) SC SCH ×2 (05:45→11:30)
[2018-08-27 06:18] LABS: BASOPHILS % (AUTO) 0 % (0-10); EOSINOPHILS # (AUTO) 0.2 10^3/uL (0.0-0.3); EOSINOPHILS % (AUTO) 2 % (0-10); HEMATOCRIT 29 % (40-54); LYMPHOCYTES # (AUTO) 1.3 X 10^3 (1.0-4.0); LYMPHOCYTES % (AUTO) 15 % (12-44); MEAN CORPUSCULAR HEMOGLOBIN 30 PG (25-34); MEAN CORPUSCULAR HGB CONC 31 G/DL (32-36); MEAN CORPUSCULAR VOLUME 99 FL (80-99); MONOCYTES # (AUTO) 1.1 X 10^3 (0.0-1.0); MONOCYTES % (AUTO) 12 % (0-12); NEUTROPHILS # (AUTO) 6.3 X 10^3 (1.8-7.8); NEUTROPHILS % (AUTO) 71 % (42-75); PLATELET COUNT 134 10^3/uL (130-400); RED CELL DISTRIBUTION WIDTH 18.3 % (10.0-14.5); WHITE BLOOD COUNT 8.8 10^3/uL (4.3-11.0)
[2018-08-27 06:36] LABS: ALANINE AMINOTRANSFERASE 40 U/L (0-55); ALKALINE PHOSPHATASE 108 U/L (40-136); BILIRUBIN,TOTAL 0.6 MG/DL (0.1-1.0); BUN/CREATININE RATIO 29; CALCIUM 9.3 MG/DL (8.5-10.1); CARBON DIOXIDE 23 MMOL/L (21-32); CHLORIDE 114 MMOL/L (98-107); CREATININE SERUM 1.07 MG/DL (0.60-1.30); GFR ESTIMATED > 60; GLUCOSE 99 MG/DL (70-105); POTASSIUM 4.2 MMOL/L (3.6-5.0); SODIUM 148 MMOL/L (135-145); TOTAL PROTEIN 7.2 GM/DL (6.4-8.2)
[2018-08-27 08:00] VITALS: BP 105/56
--- NOTE | 2018-08-27 08:55 | NUR ---
CM/SS left a message for Mindi (Dietary) in regards to his nutritional needs.
[2018-08-27] MEDS ORDERED: AMIO200T4 PEG (08:58)
[2018-08-27] MEDS ORDERED: TICA90TA PO (08:58)
[2018-08-27] MEDS ORDERED: LISI-556 PO (08:58)
[2018-08-27] MEDS ORDERED: ASPIRIN 81 MG CHEW (CHILDREN'S ASA) PO SCH (09:00)
[2018-08-27] MEDS ORDERED: DIGOXIN 0.125 MG (LANOXIN) TAB PO SCH (09:00)
--- NOTE | 2018-08-27 09:00 | D/C HH Face to Face Order ---
D/C Face to Face Orders Instructions for Patient Via [facility], Patient Instructions/FollowUp: [facility] in 1 week Physician to follow Patient: [facility] Discharge Diet for Home: Cardiac Diet Patient Problems: NSTEMI Aspiration requiring PEG tube maintenance Patient Data-Allergies,Ht & Wt Patient Allergies: Coded Allergies: Penicillins (Verified Allergy, Severe, HIVES, SOB (Pt has received Cefepime & Ceftriaxone), 07/03/18) codeine (Verified Allergy, Severe, SOB, HIVES, 01/04/18) Height (Feet): 5 Height (Inches): 5.00 Weight (Pounds): 160 Weight (Ounces): 4.8 Home Health Need/Face to Face Date of Face to Face: Aug 27, 2018 Clinical Findings: Generalized weakness and fatigue, Muscle weakness I have seen Pt [id number]: Yes Discharged To: Home Diagnosis/Conditions: NSTEMI Aspiration requiring PEG tube maintenance Patient is Homebound due to: CognItive deficits, Reji fall risk due to instabilty, Muscle weakness Homebound Status Due to the above stated illness, injury or surgical procedure (medical condition or diagnosis) and associated clinical findings, the patient is homebound because of his/her inability to leave home except with aid of a supportive device and/or person AND leaving the home requires a considerable and taxing effort or is medically contraindicated. Pt req the following assistanc: Walker Home Health Nursing Orders Home Health Services Order: Nursing Services, Hoop Bending Machine Operator-Evaluate & Treat, Physical Therapy-Evaluate & Treat Home Health Infusion Therapy Line Type: Peripheral IV Site Location: Antecubital Type of Feeding Tube: PEG Formula: Pulmocare Certify Stmt I certify that this patient is under my care and that I, a nurse practitioner or a physician; a assistant in nursing working with me, had a face to face encounter that - meets the physician face to face encounter requirements with this patient as dated. BRIGITTE LEMA DO Aug 27, 2018 09:00
--- NOTE | 2018-08-27 09:01 | Discharge Summary-Hospitalist ---
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 (6) Diabetes mellitus, type 2 Status: Chronic (7) Hyperkalemia Status: Resolved (8) Anemia Status: Acute (9) Leukocytosis Status: Acute (10) Dysphagia Status: Chronic (11) PEG (percutaneous endoscopic gastrostomy) status Status: Chronic (12) COPD (chronic obstructive pulmonary disease) Status: Chronic (13) Debility Status: Chronic (14) DVT prophylaxis Status: Acute Discharge Summary Discharge Physical Exam Allergies: Coded Allergies: Penicillins (Verified Allergy, Severe, HIVES, SOB (Pt has received Cefepime & Ceftriaxone), 07/03/18) codeine (Verified Allergy, Severe, SOB, HIVES, 01/04/18) Vitals & I&Os Vital Signs Date Time Temp Pulse Resp B/P (MAP) Pulse Ox O2 Delivery O2 Flow Rate FiO2 08/27/18 14:02 82 22 111/58 97 Nasal Cannula 2.00 08/27/18 12:00 97.9 General Appearance: No Apparent Distress, WD/WN, Chronically ill, Thin Respiratory: Chest Non Tender, Lungs Clear, Normal Breath Sounds, No Accessory Muscle Use, No Respiratory Distress Cardiovascular: Regular Rate, Rhythm, No Edema, No Gallop, No JVD, No Murmur, Normal Peripheral Pulses Neurologic/Psychiatric: Alert, Oriented x3, No Motor/Sensory Deficits, Normal Mood/Affect Hospital Course Was the Problem List Reviewed?: Yes Hospital course: Patient had a brief hospital course he was admitted after urgent cardiac catheterization was required due to non-ST elevation MA and stent was placed in an uncomplicated manner. Patient was monitored closely and placed on Brilinta along with amiodarone. Overall poor prognosis considering the chronic debility of the patient which required 3 weeks of inpatient rehab care and discharged to home with home care but was giving 1-1/2 cans of tube feedings twice daily instead of 4 times daily which resulted in a 22 pound weight loss in 3 weeks. Overall medication was reviewed all deemed correct tube feeding frequency was increased and patient was discharged on home care which was insisted by patient and although I recommend a snf placement. We will provide any support that they need to achieve success at home. Labs (last 24 hrs) Laboratory Tests 08/26/18 20:22: Glucometer 103 08/27/18 05:23: Glucometer 108 08/27/18 05:35: White Blood Count 8.8, Red Blood Count 2.96L, Hemoglobin 9.0L, Hematocrit 29L, Mean Corpuscular Volume 99, Mean Corpuscular Hemoglobin 30, Mean Corpuscular Hemoglobin Concent 31L, Red Cell Distribution Width 18.3H, Platelet Count 134, Mean Platelet Volume 12.0H, Neutrophils (%) (Auto) 71, Lymphocytes (%) (Auto) 15 , Monocytes (%) (Auto) 12, Eosinophils (%) (Auto) 2, Basophils (%) (Auto) 0, Neutrophils # (Auto) 6.3, Lymphocytes # (Auto) 1.3, Monocytes # (Auto) 1.1H, Eosinophils # (Auto) 0.2, Basophils # (Auto) 0.0, Sodium Level 148H, Potassium Level 4.2, Chloride Level 114H, Carbon Dioxide Level 23, Anion Gap 11, Blood Urea Nitrogen 31H, Creatinine 1.07, Estimat Glomerular Filtration Rate > 60, BUN /Creatinine Ratio 29, Glucose Level 99, Calcium Level 9.3, Corrected Calcium 10.1, Total Bilirubin 0.6, Aspartate Amino Transf (AST/SGOT) 39H, Alanine Aminotransferase (ALT/SGPT) 40, Alkaline Phosphatase 108, Total Protein 7.2, Albumin 3.0L 08/27/18 11:02: Glucometer 141H Patient resulted labs reviewed. Pending Labs Discussion & Recommendations Discharge Planning: <30 minutes discharge planning Discharge Home Medications: Active Scripts Active Lisinopril 5 Mg Tablet 5 Mg PO DAILY Amiodarone HCl 200 Mg Tablet 200 Mg PEG DAILY Brilinta (Ticagrelor) 90 Mg Tablet 90 Mg PO BID Lipitor (Atorvastatin Calcium) 40 Mg Tablet 40 Mg PO HS Prevalite Packet (Cholestyramine/Aspartame) 4 Gm Powd.pack 4 Gm PO 1000,2300 Reported Metoprolol Succinate 25 Mg Tab.er.24h 25 Mg PO DAILY Aspirin 81 Mg Tab.chew 81 Mg PO DAILY Milk of Magnesia (Magnesium Hydroxide) 400 Mg/5 Ml Oral.susp 30 Ml PO DAILY PRN Potassium Chloride 20 Meq Packet 20 Meq PO DAILY Diltiazem HCl 60 Mg Tablet 60 Mg PO Q8H Furosemide 40 Mg Tablet 40 Mg PO BID Mexiletine HCl 150 Mg Cap 150 Mg PO BID Ventolin Hfa (Albuterol Sulfate) 18 Gm Hfa.aer.ad 2 Puff IH Q6H PRN Instructions to patient/family Please see electronic discharge instructions given to patient. 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 (10) Diabetes mellitus, type 2 Status: Chronic (11) DVT prophylaxis Status: Acute (12) Leukocytosis Status: Acute (13) COPD (chronic obstructive pulmonary disease) Status: Chronic Discharge Summary Procedures/Consulations Cardiology consulted for NSTEMI, resulted in cardiac cath and placement of stent in LCX Discharge Physical Exam Allergies: Coded Allergies: Penicillins (Verified Allergy, Severe, HIVES, SOB (Pt has received Cefepime & Ceftriaxone), 07/03/18) codeine (Verified Allergy, Severe, SOB, HIVES, 01/04/18) General Appearance: No Apparent Distress, WD/WN HEENT: Moist Mucous Membranes Respiratory: Chest Non Tender, Lungs Clear, Normal Breath Sounds, No Accessory Muscle Use, No Respiratory Distress Cardiovascular: Regular Rate, Rhythm, No Edema, No Gallop, No Murmur, Normal Peripheral Pulses Gastrointestinal: Normal Bowel Sounds, No Organomegaly, Non Tender, Soft Extremity: Normal Capillary Refill, Normal Inspection, Normal Range of Motion, Non Tender, No Calf Tenderness, No Pedal Edema Skin: Normal Color, Warm/Dry (R groin and wrist catheter sites show some ecchymosis but with clean bandages placed) Neurologic/Psychiatric: Alert, Oriented x3, No Motor/Sensory Deficits, Normal Mood/Affect Hospital Course Was the Problem List Reviewed?: Yes This is a 78-year-old white male who presented to the ER on Sunday complaining of chest pain. The pt was diagnosed with NSTEMI and was refractory to medication management. He was taken to cardiac cath and had a stent placed in the left circumflex coronary artery. The pt has a PEG tube placement due to dysphagia and a hx of recurrent aspiration PNA. He was most recently discharged to home w/ home health from Inpatient Rehab 3 weeks ago. The pt's states she has been feeding him "1.5 cans" BID since discharge. Notably, the patient has lost 23 pounds over the past 3 weeks. Dietary was consulted and reported the patient should be receiving 2 cans of formula every 6 hours. These instructions were relayed to the . The patient's disposition was discussed with the pt and ; he was encouraged to be placed at a usp facility. Both the pt and the pt's declined snf placement, despite pointing out that the pt's rapid decline over the past 3 weeks does not cristofer well for his continuing to live at home. Pt will be discharged to home with ongoing home health services. Pt is to f/u w/ Dr. Judd in cardiology in 2 to 3 weeks as outpatient. Problem Qualifiers (1) CAD (coronary artery disease): Coronary Disease-Associated Artery/Lesion type: [place] artery [place] vs. transplanted heart: [place] heart Associated angina: with unstable angina Qualified Codes: I25.110 - Atherosclerotic heart disease of [place] coronary artery with unstable angina pectoris (2) Diabetes mellitus, type 2: Diabetes mellitus medical terminologist insulin use: with senior living use Diabetes mellitus complication status: with circulatory complication Diabetes mellitus complication detail: with other circulatory complications Qualified Codes: E11.59 - Type 2 diabetes mellitus with other circulatory complications; Z79.4 - buttermaker continuous churn (current) use of insulin (3) Anemia: Anemia type: unspecified type Qualified Codes: D64.9 - Anemia, unspecified (4) Dysphagia: Dysphagia type: unspecified Qualified Codes: R13.10 - Dysphagia, unspecified (5) COPD (chronic obstructive pulmonary disease): COPD type: unspecified COPD Qualified Codes: J44.9 - Chronic obstructive pulmonary disease, unspecified BRIGITTE LEMA DO Aug 27, 2018 09:01 BRIANNA FREEDMAN MEDICAL STUDENT Aug 27, 2018 12:34
--- NOTE | 2018-08-27 09:20 | Cardiology Progress Note ---
Cardiology SOAP Progress Note Subjective: No chest pain. Objective: I&O/Vital Signs 08/27/18 08/27/18 08/27/18 08/27/18 00:04 01:00 04:11 07:32 Temp 97.6 97.8 Pulse 79 78 82 Resp 16 16 B/P (MAP) 97/57 (70) 108/60 (76) Pulse Ox 97 96 O2 Delivery Nasal Cannula Nasal Cannula Nasal Cannula O2 Flow Rate 2.00 2.00 1.00 08/27/18 08:54 Pulse 78 08/27/18 00:00 Intake Total 906 ml Output Total 600 ml Balance 306 ml Weight (Pounds): 160 Weight (Ounces): 4.8 Weight (Calculated Kilograms): 72.527305 Constitutional: appears stated age, AAO x 3; No apparent distress; well- developed, well-nourished Respiratory: No accessory muscle use, No respiratory distress, No chest tender , No chest expansion is symmetric; chest is bilaterally symmetric; No lungs clear to percussion; lungs clear to auscultation; No crackles, No rhonchi, No rales, No stridor, No wheezing, No pleural rub, No other Cardiovascular: regular rate-rhythm; No irregularly irregular, No extra beats, No parasternal heave is noted, No JVD, No edema, No bradycardia, No tachycardia , No point of maximal impulse, No cardiac thrills are palpable; S1 and S2; No gallop/S3, No gallop/S4, No diastolic murmur, No systolic murmur, No friction rub, No click, No other Gastrointestional: No tender, No soft, No round, No distended, No pulsatile mass, No organomegaly, No guarding, No rebound, No tenderness, No hernia, No mass, No audible bowel sounds, No abnormal bowel sounds, No abdominal bruits, No spleenomegaly; other (PEG tube) Extremities: No normal range of motion, No non-tender, No normal inspection, No pedal edema, No calf tenderness, No normal capillary refill, No pelvis stable , No calf tenderness, No inflammation, No pedal edema, No slow capillary refill , No swelling, No other, No abrasion, No clubbing, No cyanosis, No ecchymosis, No laceration, No no lower extremity edema bilateral, No significant edema, No tenderness, No wound Neurologic/Psychiatric: no motor/sensory deficits, alert, normal mood/affect, oriented x 3, power is 5/5 both on sides Skin: No normal color, No warm/dry, No cyanosis, No cool, No diaphoresis, No damp, No ecchymosis, No jaundice, No mottled, No pallor, No rash, No tattoos/ piercings, No ulcerations, No rash on exposed areas, No ulcerations on exposed areas, No other Results/Procedures: Labs Laboratory Tests 08/26/18 11:17: Glucometer 126H 08/26/18 16:28: Glucometer 95 08/26/18 20:22: Glucometer 103 08/27/18 05:23: Glucometer 108 08/27/18 05:35: White Blood Count 8.8, Red Blood Count 2.96L, Hemoglobin 9.0L, Hematocrit 29L, Mean Corpuscular Volume 99, Mean Corpuscular Hemoglobin 30, Mean Corpuscular Hemoglobin Concent 31L, Red Cell Distribution Width 18.3H, Platelet Count 134, Mean Platelet Volume 12.0H, Neutrophils (%) (Auto) 71, Lymphocytes (%) (Auto) 15 , Monocytes (%) (Auto) 12, Eosinophils (%) (Auto) 2, Basophils (%) (Auto) 0, Neutrophils # (Auto) 6.3, Lymphocytes # (Auto) 1.3, Monocytes # (Auto) 1.1H, Eosinophils # (Auto) 0.2, Basophils # (Auto) 0.0, Sodium Level 148H, Potassium Level 4.2, Chloride Level 114H, Carbon Dioxide Level 23, Anion Gap 11, Blood Urea Nitrogen 31H, Creatinine 1.07, Estimat Glomerular Filtration Rate > 60, BUN /Creatinine Ratio 29, Glucose Level 99, Calcium Level 9.3, Corrected Calcium 10.1, Total Bilirubin 0.6, Aspartate Amino Transf (AST/SGOT) 39H, Alanine Aminotransferase (ALT/SGPT) 40, Alkaline Phosphatase 108, Total Protein 7.2, Albumin 3.0L A/P: Assessment/Dx: Acute non-STEMI, refractory to medical therapy, Atrial fibrillation persistent, Ischemic cardiomyopathy, biventricular ICD, History of ventricular tachycardia/ventricular fibrillation, Chronic kidney injury, COPD, History of PEG placement, Leukocytosis, Anemia, Hyperkalemia, Hypomagnesemia, Elevated LFTs Plan: Acute non-STEMI, refractory to medical therapy, ongoing chest pain in the ER with some relief with medical therapy. Urgent coronary angiography is recommended. Patient was taken directly to the catheter lab from the ER on 08/24 and coronary angiography showed severe disease in mid left circumflex artery which was treated with a drug-eluting stent 2.75 x 14 mm resolute integrity. No further chest pain. Mild right groin bruising noted. No significant change in hemoglobin. Continue dual antiplatelet therapy. Atrial fibrillation persistent, patient is on amiodarone, mexiletine, cardizem, metoprolol. Not on oral anticoagulation due to previous history of bleeding. Ischemic cardiomyopathy, biventricular ICD, History of ventricular tachycardia/ventricular fibrillation, on amiodarone and mexiletine. Elevated digoxin level, DC digoxin. Chronic kidney injury, COPD, History of PEG placement, patient does not know the reason why he has PEG placement. Leukocytosis, will defer to Dr. Verdin. Patient has recent history of UTI sepsis. Anemia, Hyperkalemia, defer to Dr. Verdin. Hypermagnesemia, Elevated LFTs. Patient will like to transition to cardiology/cardiac electrophysiology care in [place]. I'll be happy to take care of him as an outpatient as well and follow-up in 2-3 weeks. Thank you for your consultation. Please call me if you have any questions. Simin Judd MD, FACP, FACC, FSCAI, FHRS, CCDS Interventional Cardiology Cardiac Electrophysiology Vascular Medicine and Endovascular Interventions Gabriela JUDD MD Aug 27, 2018 9:20 am
--- NOTE | 2018-08-27 09:21 | Discharge Inst-Post CATH ---
Discharge Inst-CATH/EP Post Cardiac Cath/EP D/C Inst Follow Up/Plan Dr Judd in two to three weeks. CARDIAC CATH DISCHARGE INSTRUCTIONS *Hold Metformin for 48 hours post heart cath. ACTIVITY * Go Home directly and rest. * Limit activity of the leg (or wrist if it was used) for 7 days including aerobics, swimming, jogging, bicycling, etc. * Restrict stair-climbing for 7 days if possible, if not, climb up with your non -cath leg, then bring together on the same step. * Avoid lifting, pushing, pulling or excessive movement of the affected extremity for 7 days. * Customary sexual activity may be resumed after 2 days-use caution not to use a position that strains or causes pain to the affected extremity. * No driving for 24 hours. * NO SMOKING. * Avoid straining for bowel movements for 7 days. * Gentle walking on level ground is allowed. * Returning to work will depend on the type of procedure and the results. Your doctor will discuss this with you. CALL YOUR DOCTOR FOR ANY OF THE FOLLOWING: *If bleeding from the puncture site occurs- Apply gentle pressure to site with clean cloth and call your doctor or EMS. * If a knot or lump forms under the skin, increases in size, or causes pain. * If bruising appears to be worsening or moving further down your leg instead of disappearing. * Temperature above 101 F. CARE OF YOUR GROIN INCISION; * Bruising or purple discoloration of the skin near the puncture site is common. * You may shower only, no bathtub bathing for 5 days. Be careful to avoid slipping as your leg may feel stiff. * If a closure device was used on your femoral artery, please see the attached guide regarding care of the device and your leg. * Leave the dressing on, until removed by office staff. CARE OF YOUR WRIST INCISION; * Bruising or purple discoloration of the skin near the puncture site is common. * You may shower. * DO NOT submerge wrist. * Leave dressing on, until removed by office staff.. Gabriela JUDD MD Aug 27, 2018 9:21 am
[2018-08-27] MEDS: meTOprolol TARTRATE 25 MG (LOPRESSOR) TABLET PO SCH (09:33)
[2018-08-27] MEDS: MEXILETINE 150 MG (MEXITIL) CAPSULE PO SCH (09:33)
[2018-08-27] MEDS: KCL 20 MEQ POWDER FOR ORAL SOLUTION PO SCH (09:33)
[2018-08-27] MEDS: TICAGRELOR 90 MG TABLET (BRILINTA) PO SCH (09:33)
[2018-08-27] MEDS: FUROSEMIDE 40 MG (LASIX) TAB PO SCH (09:33)
[2018-08-27] MEDS: lisINopril 5 MG (PRINIVIL) TABLET PO SCH (09:33)
[2018-08-27] MEDS: ACETAMINOPHEN 500 MG TAB (TYLENOL) PO PRN (09:34)
[2018-08-27] MEDS: AMIODARONE 200 MG (CORDARONE) TAB PEG SCH (09:34)
[2018-08-27] MEDS: ASPIRIN E.C. 81 MG (ECOTRIN) TAB PO SCH (09:34)
--- NOTE | 2018-08-27 09:34 | NUR ---
CM/SS spoke with Mindi (dietary) he is to have 1 1/2 can 4x a day. C resumption information sent to [facility], where they were receiving services.
--- NOTE | 2018-08-27 09:35 | NUR ---
PT ON PEG FEEDINGS DUE TO SILENTLY ASPIRATING. DURING RECENT STAY ON IRF,PT WAS GETTING 1.5 CANS JEVITY 1.5, 4 TIMES PER DAY (6 CANS TOTAL)PROVIDING 2130 KCAL, 91 GRAMS PROTEIN, AND 1080 ML FREE WATER, AND PT DID WELL. PT WAS DISCHARGED ON SAME REGIMEN. WHILE AT HOME PT HAS ONLY BEENGETTING 1.5 CANS TWICE PER DAY (3 CANS TOTAL) PROVIDING 1065 KCAL, 45GRAMS PROTEIN, 540 ML FREE WATER. RECOMMENDATIONS: 1.5 CANS JEVITY 1.5, 4 TIMES PER DAY (6 CANS TOTAL) PROVIDING 2130 KCAL, 91 GRAMS PROTEIN, AND 1080 ML FREE WATER. PT WILL NEED ADDITIONAL 1100 ML FLUID EACH DAY THROUGH FLUSHES.
--- NOTE | 2018-08-27 11:20 | Occ Therapy Progress Note ---
Therapy Progress Note Attempted OT treatment at 1110. Pt sitting in chair with spouse present. Pt states he will be going home today, declined therapy at this time. Spouse states they have everything set up at home. They have no questions or concerns at this time. Pt sitting in chair with needs met. 1, visit KLAUS MORRELL OT Aug 27, 2018 11:20
[2018-08-27 12:00] VITALS: BP 111/58
[2018-08-27 14:02] VITALS: BP 111/58
== END 2018-08-27 13:05 | disposition home health service (06) ==
LOC: EDUNIT# 10:07 → ER 10:08 → CATH 10:49 → ICU 12:54 → 4TH 08-25 15:10 → CATH 08-27 13:05
PROVIDERS: ATTEND Internal Medicine
DX: I21.4 Non-ST elevation (NSTEMI) myocardial infarction (principal); I25.10 Atherosclerotic heart disease of native coronary artery without angina pectoris; I25.5 Ischemic cardiomyopathy; I48.1 Persistent atrial fibrillation; I12.9 Hypertensive chronic kidney disease with stage 1 through stage 4 chronic kidney disease, or unspecified chronic kidney disease; N18.9 Chronic kidney disease, unspecified; E78.00 Pure hypercholesterolemia, unspecified; J44.9 Chronic obstructive pulmonary disease, unspecified; D64.9 Anemia, unspecified; E87.5 Hyperkalemia; E83.42 Hypomagnesemia; R79.89 Other specified abnormal findings of blood chemistry; R13.10 Dysphagia, unspecified; R53.81 Other malaise; R63.4 Abnormal weight loss; Z95.1 Presence of aortocoronary bypass graft; Z95.5 Presence of coronary angioplasty implant and graft; Z95.810 Presence of automatic (implantable) cardiac defibrillator; Z87.891 Personal history of nicotine dependence; Z93.1 Gastrostomy status; Z79.4 Long term (current) use of insulin; Z79.82 Long term (current) use of aspirin; Z79.899 Other long term (current) drug therapy
CPT/HCPCS: 36221; 36415; 71045; 80048; 80053; 80076; 80162; 82962; 83735; 83874; 84484; 85025; 85347; 85610; 85730; 93005; 93041; 93306; 93459; 96374

== ENCOUNTER → 2018-09-13 | Outpatient (CLI) | payer MEDICARE, MEDICAID ==
[~2018-09-13] MED LIST changes: +AMIO200T4 PEG; +BARIUM SUSPENSION 60% (LIQUID EZ PAQUE) 240 ML DOSE PO ONE; +LISI-556 PO; +TICA90TA PO
[2018-09-13] MEDS: BARIUM SUSPENSION 105% (LIQUID POLIBAR PLUS) 240 ML/DOSE PO ONE (11:10)
--- NOTE | 2018-09-13 11:26 | Diagnostic Imaging Report ---
INDICATION: Aspiration. FINDINGS: The patient ingested thick barium. A total of 36 seconds of fluoroscopy was utilized. Initial image demonstrates good opacification of the esophagus which is unremarkable. Second swallow did demonstrate aspiration into the trachea with extension of contrast into the left lower lobe bronchi. Due to aspiration, the procedure was terminated. IMPRESSION: Aspiration, as described. Therefore, procedure was terminated. Dictated by: Dictated on workstation # [id number]
== END ==
LOC: RAD 10:04
PROVIDERS: ATTEND Internal Medicine
DX: T17.908A Unspecified foreign body in respiratory tract, part unspecified causing other injury, initial encounter (principal)
CPT/HCPCS: 74220

== ENCOUNTER → 2018-09-23 | Outpatient (CLI) | payer MEDICARE, MEDICAID ==
--- NOTE | 2018-09-23 19:59 | Diagnostic Imaging Report ---
INDICATION: Dysphagia. TECHNIQUE: The procedure was performed in conjunction with the members of department of speech pathology. Patient swallowed thin and thick barium and semisolid and solid foods mixed with barium paste. The study was recorded on videotape. FINDINGS: Oral phase of swallowing is grossly unremarkable. There is early spillover. There is marked residual in the valleculae and piriform sinuses. Cricopharyngeal function and laryngeal elevation were virtually absent. No obvious aspiration was seen on this exam. IMPRESSION: Markedly abnormal swallow as described. Please correlate with the formal speech pathology report. Dictated by: Dictated on workstation # [id number]
== END ==
LOC: RAD 09:59
PROVIDERS: ATTEND Internal Medicine
DX: R13.10 Dysphagia, unspecified (principal)
CPT/HCPCS: 74230

== ENCOUNTER 2019-05-10 06:13 | Emergency (ER) | payer MEDICAID, MEDICARE ==
[~2019-05-10] VITALS: Ht 165 cm; Wt 72.7 kg
[~2019-05-10 06:13] MED LIST changes: -BARIUM SUSPENSION 60% (LIQUID EZ PAQUE) 240 ML DOSE PO ONE
--- NOTE | 2019-05-10 06:32 | NUR ---
pt brought in by daughter c/o dislodged feeding tube. catheter placed in stoma by erp.
--- NOTE | 2019-05-10 06:50 | NUR ---
abdominal binder placed on patient.
--- NOTE | 2019-05-10 07:01 | ED GI ---
General Chief Complaint: Catheter/Drain/Tube Problems Stated Complaint: PULLED FEEDING TUBE OUT Nursing Triage Note: pulled out feeding tube Sepsis Screen: No Definite Risk Source of Information: Patient, Family Exam Limitations: Other (dementia) History of Present Illness Date Seen by Provider: May 10, 2019 Time Seen by Provider: 06:34 Initial Comments Patient presents to ER by private conveyance with family and chief [place] chief complaint displacing his PEG tube accidentally. He has dementia and is on hospice. The PEG tube was placed by a surgeon at [place], [place]. He's having no significant pain nausea vomiting fever chills or dysuria. The PEG tube was placed early in the year greater than 6 months. Allergies and Home Medications Allergies Coded Allergies: Penicillins (Verified Allergy, Severe, HIVES, SOB (Pt has received Cefepime & Ceftriaxone), 07/03/18) codeine (Verified Allergy, Severe, SOB, HIVES, 01/04/18) Home Medications Albuterol Sulfate 18 Gm Hfa.aer.ad, 2 PUFF IH Q6H PRN for SHORTNESS OF BREATH, (Reported) Amiodarone HCl 200 Mg Tablet, 200 MG PEG DAILY Prescribed by: BRIGITTE LEMA on 08/27/18857 Aspirin 81 Mg Tab.chew, 81 MG PO DAILY, (Reported) Atorvastatin Calcium 40 Mg Tablet, 40 MG PO HS Prescribed by: BRIGITTE LEMA on 08/05/18811 Cholestyramine/Aspartame 4 Gm Powd.pack, 4 GM PO 1000,2300 Prescribed by: BRIGITTE LEMA on 08/05/18811 Diltiazem HCl 60 Mg Tablet, 60 MG PO Q8H, (Reported) Furosemide 40 Mg Tablet, 40 MG PO BID, (Reported) Lisinopril 5 Mg Tablet, 5 MG PO DAILY Prescribed by: BRIGITTE LEMA on 08/27/18857 Magnesium Hydroxide 400 Mg/5 Ml Oral.susp, 30 ML PO DAILY PRN for CONSTIPATION- 1ST LINE, (Reported) Metoprolol Succinate 25 Mg Tab.er.24h, 25 MG PO DAILY, (Reported) Mexiletine HCl 150 Mg Cap, 150 MG PO BID, (Reported) Potassium Chloride 20 Meq Packet, 20 MEQ PO DAILY, (Reported) Ticagrelor 90 Mg Tablet, 90 MG PO BID Prescribed by: BRIGITTE LEMA on 08/27/18857 Patient Home Medication List Home Medication List Reviewed: Yes Review of Systems Review of Systems Constitutional: No chills, No diaphoresis EENTM: No Blurred Vision, No Double Vision Respiratory: Denies Cough, Denies Shortness of Air Cardiovascular: Denies Chest Pain, Denies Edema Gastrointestinal: Denies Constipated, Denies Diarrhea, Denies Nausea Past Ueyqijq-Ccqmkl-Odjmik Hx Patient Social History Alcohol Use: Denies Use Recreational Drug Use: No Smoking Status: Former Smoker Type Used: Cigarettes Former Smoker, Quit: Jul 22, 1988 2nd Hand Smoke Exposure: No Recent Foreign Travel: No Contact w/Someone Who Travel: No Recent Infectious Disease Expo: No Recent Hopitalizations: Yes Physical Abuse: No Sexual Abuse: No Mistreated: No Fear: No Immunizations Up To Date Tetanus Booster (TDap): Unknown Date of Pneumonia Vaccine: May 12, 2018 Date of Influenza Vaccine: May 08, 2018 Seasonal Allergies Seasonal Allergies: No Past Medical History Surgeries: Yes (skin cancer removal, cataract surgery, cardiac stents ) Cardiac, CABG, Coronary Stent, Defibrillator, Eye Surgery, Orthopedic, Renal Respiratory: Yes (O2 3L/NC AT HS-now off all oxygen 06/2018; CHRONIC RESPIRATORY FAILURE) Asthma, Pneumonia, Chronic Bronchitis, Sleep Apnea, COPD Currently Using CPAP: No Currently Using BIPAP: No Cardiac: Yes (CABG) Cardiomyopathy, Chronic Edema/Swelling, Coronary Artery Disease, Heart Attack, High Cholesterol, Hypertension, Irregular Heartbeat Neurological: Yes Dementia, Neuropathy Reproductive Disorders: Yes (unable to have children- mumps as a child) Sexually Transmitted Disease: No HIV/AIDS: No Genitourinary: Yes (renal insufficiency-renal stent placement) Kidney Infection, Bladder Infection, Kidney Stones Gastrointestinal: Yes (peg tube ucljygryt-KHE-[id number] aspiration) Gastroesophageal Reflux, Ulcer Musculoskeletal: Yes (POOR MOBILITY; LEFT HIP FRACTURE) Arthritis, Chronic Back Pain, Fractures Endocrine: Yes Diabetes, Insulin dep HEENT: Yes Cataract, Glaucoma Loss of Vision: Bilateral Hearing Impairment: Hard of Hearing Cancer: Yes Skin Did You Recieve Any Treatments: Yes What Type of Treatment Did You: Surgical Intervention Psychosocial: Yes (combative at times) Anxiety, Depression Integumentary: Yes (shingles , SKIN CANCER; LEG CELLULITIS/ STASIS DERMATITIS) Blood Disorders: No Adverse Reaction/Blood Tranf: No Family Medical History Cardiovascular disease 19 MOTHER G8 BROTHER G8 SISTER Cervical cancer 19 MOTHER Heart Disease Physical Exam Vital Signs Capillary Refill : Less Than 3 Seconds Height/Weight/BMI Height: 5'5.00" Weight: 160lbs. 4.8oz. 72.302802cq; 26.00 BMI Method:Stated General Appearance: WD/WN, no apparent distress Respiratory: no respiratory distress, no accessory muscle use Cardiovascular: normal peripheral pulses, regular rate, rhythm Gastrointestinal: normal bowel sounds, non tender, soft, other (well- established gastrostomy tube with beefy-red granulation tissue.) Progress/Results/Core Measures Results/Orders Blood Pressure Mean: 94 Progress Progress Note : Time: 06:58 Progress Note Attempted to place a 24 Singaporean gastrostomy tube unsuccessfully. A 16 Singaporean coud Kendall catheter was easily passed using lubricant and the balloon was teetee led. Patient tolerated procedure well. Departure Impression Primary Impression: Dislodged gastrostomy tube Disposition: 01 HOME, SELF-CARE Condition: Improved Departure-Patient Inst. Decision time for Depature: 07:00 Referrals: WILLIAM KING DAVID F MD (PCP/Family) Primary Care Physician Patient Instructions: How to Care for Your PEG Tube Add. Discharge Instructions: Keep the site clean with regular soap and water. You may use a gauze dressing. Call the general surgeon, Dr. King at his office and request for an appointment to follow-up for replacement of a gastrostomy tube. All discharge instructions reviewed with patient and/or family. Voiced understanding. Copy Copies To 1: WILLIAM KING TITUS J May 10, 2019 07:01
[2019-05-10 07:19] VITALS: BP 121/81
== END 2019-05-10 07:19 | disposition home or self-care (01) ==
LOC: EDUNIT# 06:13 → ER 06:15
DX: K94.23 Gastrostomy malfunction (principal); F03.90 Unspecified dementia, unspecified severity, without behavioral disturbance, psychotic disturbance, mood disturbance, and anxiety; I10 Essential (primary) hypertension; E11.40 Type 2 diabetes mellitus with diabetic neuropathy, unspecified; E78.00 Pure hypercholesterolemia, unspecified; I25.10 Atherosclerotic heart disease of native coronary artery without angina pectoris; I25.2 Old myocardial infarction; J44.9 Chronic obstructive pulmonary disease, unspecified; F41.9 Anxiety disorder, unspecified; F32.9 Major depressive disorder, single episode, unspecified; K21.9 Gastro-esophageal reflux disease without esophagitis; Z88.0 Allergy status to penicillin; Z85.828 Personal history of other malignant neoplasm of skin; Z88.5 Allergy status to narcotic agent; Z79.82 Long term (current) use of aspirin; Z87.891 Personal history of nicotine dependence; Z87.442 Personal history of urinary calculi; Z95.1 Presence of aortocoronary bypass graft; Z95.810 Presence of automatic (implantable) cardiac defibrillator; Z95.5 Presence of coronary angioplasty implant and graft; Z99.81 Dependence on supplemental oxygen; Z80.49 Family history of malignant neoplasm of other genital organs; Z82.49 Family history of ischemic heart disease and other diseases of the circulatory system
CPT/HCPCS: 43762

== ENCOUNTER 2019-05-16 08:40 | Emergency (ER) | payer MEDICAID ==
[~2019-05-16] VITALS: Ht 165 cm; Wt 63.0 kg
--- NOTE | 2019-05-16 08:52 | NUR ---
NO CHANGE IN CURRENT MEDS
--- NOTE | 2019-05-16 09:04 | ED General ---
General Chief Complaint: Catheter/Drain/Tube Problems Stated Complaint: PULLED OUT FEEDING TUBE Nursing Triage Note: PT ARRIVED PER EMS, PT STATES FEEDING TUBE CAME OUT SOMETIME DURING NITE, RN UNABLE TO PUT TUBE BACK IN, SENT TO ED. Nursing Sepsis Screen: No Definite Risk Source of Information: Patient, EMS Exam Limitations: No Limitations History of Present Illness Date Seen by Provider: May 16, 2019 Time Seen by Provider: 08:42 Initial Comments This 79-year-old gentleman presents to the emergency room via EMS because of a dislodged feeding tube. It came out some time in the night. His home health nurse has been unable to reinsert it. He arrives via EMS because the care provider locked her keys in the car. Patient is having no complications with the site. There is no bleeding or pain. The tube was dislodged yesterday as well and was put back and by Dr. Esposito. There was an attempt to burn some skin tags around the insertion site with silver nitrate as well. Allergies and Home Medications Allergies Coded Allergies: Penicillins (Verified Allergy, Severe, HIVES, SOB (Pt has received Cefepime & Ceftriaxone), 07/03/18) codeine (Verified Allergy, Severe, SOB, HIVES, 01/04/18) Home Medications Albuterol Sulfate 18 Gm Hfa.aer.ad, 2 PUFF IH Q6H PRN for SHORTNESS OF BREATH, (Reported) Amiodarone HCl 200 Mg Tablet, 200 MG PEG DAILY Prescribed by: BRIGITTE LEMA on 08/27/18 08 Aspirin 81 Mg Tab.chew, 81 MG PO DAILY, (Reported) Atorvastatin Calcium 40 Mg Tablet, 40 MG PO HS Prescribed by: BRIGITTE LEMA on 08/05/18811 Cholestyramine/Aspartame 4 Gm Powd.pack, 4 GM PO 1000,2300 Prescribed by: BRIGITTE LEMA on 08/05/18 08 Diltiazem HCl 60 Mg Tablet, 60 MG PO Q8H, (Reported) Furosemide 40 Mg Tablet, 40 MG PO BID, (Reported) Lisinopril 5 Mg Tablet, 5 MG PO DAILY Prescribed by: BRIGITTE LEMA on 08/27/18857 Magnesium Hydroxide 400 Mg/5 Ml Oral.susp, 30 ML PO DAILY PRN for CONSTIPATION- 1ST LINE, (Reported) Metoprolol Succinate 25 Mg Tab.er.24h, 25 MG PO DAILY, (Reported) Mexiletine HCl 150 Mg Cap, 150 MG PO BID, (Reported) Potassium Chloride 20 Meq Packet, 20 MEQ PO DAILY, (Reported) Ticagrelor 90 Mg Tablet, 90 MG PO BID Prescribed by: BRIGITTE LEMA on 08/27/18 0858 Patient Home Medication List Home Medication List Reviewed: Yes Review of Systems Review of Systems Constitutional: no symptoms reported EENTM: no symptoms reported Respiratory: no symptoms reported Cardiovascular: no symptoms reported Gastrointestinal: see HPI Genitourinary: no symptoms reported Musculoskeletal: no symptoms reported Skin: no symptoms reported Psychiatric/Neurological: No Symptoms Reported Hematologic/Lymphatic: No Symptoms Reported Past Rsyozer-Qjbiai-Guwusp Hx Past Med/Social Hx: Reviewed Nursing Past Med/Soc Hx Patient Social History Alcohol Use: Denies Use Recreational Drug Use: No Smoking Status: Former Smoker Type Used: Cigarettes Former Smoker, Quit: Jul 22, 1988 2nd Hand Smoke Exposure: No Recent Foreign Travel: No Contact w/Someone Who Travel: No Recent Infectious Disease Expo: No Recent Hopitalizations: No Physical Abuse: No Sexual Abuse: No Immunizations Up To Date Tetanus Booster (TDap): Unknown Date of Pneumonia Vaccine: May 12, 2018 Date of Influenza Vaccine: May 08, 2018 Seasonal Allergies Seasonal Allergies: No Past Medical History Surgeries: Yes (skin cancer removal, cataract surgery, cardiac stents ) Abdominal (PEG tube), Cardiac, CABG, Coronary Stent, Defibrillator, Eye Surgery, Orthopedic, Renal Respiratory: Yes (O2 3L/NC AT HS-now off all oxygen 06/2018; CHRONIC RESPIRATORY FAILURE) Asthma, Pneumonia, Chronic Bronchitis, Sleep Apnea, COPD Currently Using CPAP: No Currently Using BIPAP: No Cardiac: Yes (CABG) Cardiomyopathy, Chronic Edema/Swelling, Coronary Artery Disease, Heart Attack, High Cholesterol, Hypertension, Irregular Heartbeat Neurological: Yes Dementia, Neuropathy Reproductive Disorders: Yes (unable to have children- mumps as a child) Sexually Transmitted Disease: No HIV/AIDS: No Genitourinary: Yes (renal insufficiency-renal stent placement) Kidney Infection, Bladder Infection, Kidney Stones Gastrointestinal: Yes (peg tube rejtagkay-VZE-zxfbpn aspiration) Gastroesophageal Reflux, Ulcer Musculoskeletal: Yes (POOR MOBILITY; LEFT HIP FRACTURE) Arthritis, Chronic Back Pain, Fractures Endocrine: Yes Diabetes, Insulin dep HEENT: Yes Cataract, Glaucoma Loss of Vision: Bilateral Hearing Impairment: Hard of Hearing Cancer: Yes Skin Did You Recieve Any Treatments: Yes What Type of Treatment Did You: Surgical Intervention Psychosocial: Yes (combative at times) Anxiety, Depression Integumentary: Yes (shingles , SKIN CANCER; LEG CELLULITIS/ STASIS DERMATITIS) Blood Disorders: No Adverse Reaction/Blood Tranf: No Family Medical History Cardiovascular disease 19 MOTHER G8 BROTHER G8 SISTER Cervical cancer 19 MOTHER Heart Disease Physical Exam Vital Signs Vital Signs - First Documented 05/16/19 08:48 Temp 36.8 Pulse 93 Resp 18 B/P (MAP) 125/85 (98) Pulse Ox 96 Capillary Refill : Less Than 3 Seconds Height, Weight, BMI Height: 5'5.00" Weight: 160lbs. 4.8oz. 72.405807az; 23.00 BMI Method:Stated General Appearance: No Apparent Distress, WD/WN Neck: Normal Inspection Respiratory: No Accessory Muscle Use, No Respiratory Distress Gastrointestinal: Non Tender, Soft; No Distended; Other (PEG tube dislodged from site. 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 Norm as Tested Skin: Normal Color, Warm/Dry Progress/Results/Core Measures Suspected Sepsis Recent Fever Within 48 Hours: No Infection Criteria Present: None New/Unexplained Altered Menta: No Sepsis Screen: No Definite Risk SIRS Temperature: Pulse: 93 Respiratory Rate: 18 Blood Pressure 125 /85 Mean: 98 Results/Orders Vital Signs/I&O 05/16/19 08:48 Temp 36.8 Pulse 93 Resp 18 B/P (MAP) 125/85 (98) Pulse Ox 96 Capillary Refill : Less Than 3 Seconds Blood Pressure Mean: 98 Progress Note #1: Time: 09:05 Progress Note Reinsertion has been complicated by the existence of skin tags and redundant tissue at the insertion site. The opening seems to have tighten. We will try dilating with [place] dilators before attempting again. Progress Note #2: Time: 11:07 Progress Note [place] dilators were used up to a 20 Slovenian size. Insertion was still not possible. I contacted Dr. Esposito who presented to the ER and was eventually able to place the Daniel tube with multiple dilation attempts prior to insertion. There was some mild bleeding which was controlled. Tube was flushed with sterile water and stomach contents were aspirated. There is no pain with flush or aspiration. Family was encouraged to use abdominal binder at night to prevent accidental dislodgment of the tube. Departure Impression Primary Impression: Complication of feeding tube Disposition: 01 HOME, SELF-CARE Condition: Improved Departure-Patient Inst. Decision time for Depature: 10:59 Referrals: ABHINAV GONZALEZ MD (PCP/Family) Primary Care Physician Patient Instructions: How to Care for Your PEG Tube Add. Discharge Instructions: Use abdominal binder at night or at other times when feeding tube might become dislodged. Otherwise continue care as previously instructed. Contact Dr. Esposito or return to care if you have any further problems. All discharge instructions reviewed with patient and/or family. Voiced unders tanding. Copy Copies To 1: NORRIS ESPOSITO JOSHUA T MD May 16, 2019 09:04
--- NOTE | 2019-05-16 10:55 | NUR ---
DR GOVEA HERE TO PUT PED TUBE IN
[2019-05-16 11:09] VITALS: BP 125/85
--- NOTE | 2019-05-19 00:06 | OPERATIVE REPORT ---
DATE OF SERVICE: 05/16/2019 PREOPERATIVE DIAGNOSIS: Gastrostomy malfunction. POSTOPERATIVE DIAGNOSIS: Gastrostomy malfunction. PROCEDURE: Dilation of gastrostomy. SURGEON: Eric Govea DO. MONOGRAM OPERATOR: None. ANESTHESIA: None. BLOOD LOSS: Scant. FLUIDS: None. POSTOPERATIVE CONDITION: Stable. INDICATION FOR PROCEDURE: The patient is a 79-year-old male who had actually had a gastrostomy placed the day before. He had this, this is the second time, it actually came back in and it fell out. He needs to get this replaced, but it had strictured down. FINDINGS: The patient had a manual dilation with [place] sounds to be able to replace his gastrostomy tube. PROCEDURE NOTE: After informed consent was obtained in the ER, the ER physician had already attempted to replace the gastrostomy tube, which I had actually placed the day before. He was unsuccessful and asked for me to come down to help, so the area it appeared that there had been some overgrowth of hypertrophy tissue and the gastrostomy hole had closed, used the [place] sound going from 16 to 18 to 20 to 22 in a stepwise fashion, minimal pain with this, very scant bleeding. Once we dilated large enough, then able to easily replace an 18-[place]ATT-MORRISSE[place] tube, blew up the balloon with 10 mL of saline and then placed a dressing over the top of this. The patient tolerated the procedure and told his daughter who is in the room the entire time to place an abdominal binder when he sleeps, so he did not pull this out. Job ID: [id number] DocumentID: [id number] Dictated Date: 05/18/2019 21:36:42 Toy Packer Date: 05/19/2019 00:05:18 Dictated By: ERIC GOVEA DO
== END 2019-05-16 11:09 | disposition home or self-care (01) ==
LOC: EDUNIT# 08:40 → ER 08:42
DX: K94.23 Gastrostomy malfunction (principal); I10 Essential (primary) hypertension; E11.40 Type 2 diabetes mellitus with diabetic neuropathy, unspecified; E78.00 Pure hypercholesterolemia, unspecified; I25.2 Old myocardial infarction; I25.10 Atherosclerotic heart disease of native coronary artery without angina pectoris; J44.9 Chronic obstructive pulmonary disease, unspecified; F03.90 Unspecified dementia, unspecified severity, without behavioral disturbance, psychotic disturbance, mood disturbance, and anxiety; K21.9 Gastro-esophageal reflux disease without esophagitis; Z88.0 Allergy status to penicillin; Z87.442 Personal history of urinary calculi; Z88.5 Allergy status to narcotic agent; Z79.82 Long term (current) use of aspirin; Z87.891 Personal history of nicotine dependence; Z95.5 Presence of coronary angioplasty implant and graft; Z85.828 Personal history of other malignant neoplasm of skin; Z95.1 Presence of aortocoronary bypass graft; Z95.810 Presence of automatic (implantable) cardiac defibrillator; Z82.49 Family history of ischemic heart disease and other diseases of the circulatory system; Z80.49 Family history of malignant neoplasm of other genital organs
CPT/HCPCS: 43762

== ENCOUNTER → 2019-09-08 | Outpatient (CLI) | payer OTHER, MEDICARE, MEDICAID ==
[~2019-09-08] MED LIST changes: -DIGO125T PO; +DIGO125T3 PO; -METO-387 PO; -TAMS0.4C98 PO; +TMSL.4C PO; -TRAM50TA2 PO; +TRM50T PO
[2019-09-08 15:10] LABS: BILIRUBIN,URINE NEGATIVE (NEGATIVE); CLARITY,URINE SL CLOUDY; COLOR,URINE YELLOW; GLUCOSE, URINE (UA) NEGATIVE (NEGATIVE); KETONES,URINE NEGATIVE (NEGATIVE); LEUKOCYTE ESTERASE ,URINE 3+ (NEGATIVE); NITRITE,URINE NEGATIVE (NEGATIVE); PH,URINE 7.5 (5-9); PROTEIN,URINE TRACE (NEGATIVE)
[2019-09-08 15:33] LABS: RBC,URINE TNTC /HPF
[2019-09-08 15:34] LABS: BACTERIA,URINE MODERATE /HPF; WBC,URINE TNTC /HPF
[2019-09-08 15:35] LABS: SQUAMOUS EPITHELIAL CELL,UR RARE /HPF
== END ==
LOC: LABNPT 08:00
PROVIDERS: ATTEND Internal Medicine
DX: R30.0 Dysuria (principal)
CPT/HCPCS: 81000; 87077; 87088